=== PATIENT | male | born 1960 | race Caucasian/White ===

== ENCOUNTER 2020-08-27 14:14 | Emergency (ER) | payer MEDICARE, MEDICAID, SELFPAY ==
[2020-08-27 14:23] VITALS: BP 167/71; BP 180/80; PULSE 68; PULSE 80; RESP 15; TEMP 37.3; O2SAT 98; O2SAT 99; BMI 27.3
[2020-08-27 15:47] VITALS: BP 176/75; PULSE 69; RESP 16; TEMP 36.9; O2SAT 99
--- NOTE | 2020-08-27 15:49 | XR_ITS ---
EXAMINATION: XR CHEST CLINICAL INFORMATION: Altered mental status COMPARISON: CT from 02/26/2020. Radiograph 05/09/2014. TECHNIQUE: Frontal view of the chest was obtained. FINDINGS: Cardiac leads overlie the chest. The lungs are well expanded. There is no focal consolidation, edema, or effusion. No pneumothorax. The cardiomediastinal silhouette is within normal limits. No acute osseous abnormality. IMPRESSION: No acute pulmonary finding.
--- NOTE | 2020-08-27 15:49 | ECG_ITS ---
Test Reason : WEAKNESS Blood Pressure : / mmHG Vent. Rate : 070 BPM Atrial Rate : 070 BPM P-R Int : 182 ms QRS Dur : 124 ms QT Int : 416 ms P-R-T Axes : 024 -53 069 degrees QTc Int : 449 ms Normal sinus rhythm Left anterior fascicular block Left ventricular hypertrophy with QRS widening and repolarization abnormality Abnormal ECG When compared with ECG of 02-MAY-2020 18:56, No significant changes seen Referred By: Radha Sprague Electronically Signed By:KITA MCCARTHY MD
--- NOTE | 2020-08-27 15:49 | CT_ITS ---
EXAMINATION: CT HEAD WITHOUT CONTRAST CLINICAL INFORMATION: Altered mental status COMPARISON: 05/02/2020 TECHNIQUE: Contiguous axial imaging was performed from the skull base to vertex without intravenous contrast. This CT examination was performed using dose optimization techniques as appropriate, variously including the following: * Automated exposure control * Adjustment of mA and/or kV according to patient size (this includes techniques or standardized protocols for targeted exams where dose is matched to indication/reason for exam; i.e. extremities or head) Use of iterative reconstruction technique DLP: 824 mGy-cm. FINDINGS: There is no evidence of acute intracranial hemorrhage or territorial infarction. No abnormal mass effect or midline shift is seen. Garcia to white matter differentiation is well preserved. No extra-axial fluid collections are identified. No hydrocephalus. Proportional prominence of the ventricles and sulcal spaces is consistent with mild volume loss. Patchy periventricular and deep white matter hypoattenuation is consistent with mild small vessel ischemic changes. The osseous structures and soft tissues are normal. The mastoid air cells and visualized portions of the paranasal sinuses are well aerated. IMPRESSION: No acute intracranial pathology. Mild volume loss with small vessel ischemic change.
[2020-08-27 16:19] VITALS: BP 170/74; PULSE 74; RESP 18; TEMP 36.8; O2SAT 99
[2020-08-27 16:47] LABS: MANUAL DIFF FLAG NO
[2020-08-27 16:49] LABS: Basophils Percent Auto 0.5 % (0-2); Eosinophils Absolute Auto 0.1 X10*3/uL (0.0-0.4); Hematocrit 27.6 % (42-52); Hemoglobin 9.7 g/dl (14.0-18.0); Imm Gran Abs Auto 0.01 X10*3/uL (0.00-0.03); Imm Gran Pct Auto 0.2 % (0.0-0.4); Lymphocytes Absolute Auto 1.1 X10*3/uL (1.2-4.9); Lymphocytes Percent Auto 26.2 % (20-40); Mean Corpuscular HGB Conc 35.1 g/dl (31.0-36.0); Mean Corpuscular Hemoglobin 32.8 pg (27.0-33.0); Mean Corpuscular Volume 93.2 fL (80-98); Mean Platelet Volume 11.2 fL (9.4-12.4); Monocytes Absolute Auto 0.4 X10*3/uL (0.1-1.2); Monocytes Percent Auto 10.1 % (2-11); Neutrophils Absolute Auto 2.6 X10*3/uL (2.0-8.3); Red Blood Count 2.96 X10*6/uL (4.60-5.80); Red Cell Distribution Width 14.6 % (11.0-16.0); White Blood Count 4.4 X10*3/uL (4.8-10.8)
--- NOTE | 2020-08-27 16:57 | ED.AMS ---
HPI - Altered Mental Status General Chief Complaint: Weakness Stated Complaint: INCR LETHARGY PER SNF,PT C/O PAIN ALL OVER Time Seen by Provider: 08/27/20 15:33 Source: EMS Mode of arrival: EMS History of Present Illness HPI narrative: 59-year-old male with a past medical history of diabetes, Parkinson's , dementia, substance abuse, schizophrenia, essential tremor, ataxia, mild cognitive impairment, pancytopenia presenting to ED from SNF [facility] for increased lethargy /AMS x today. Patient reports cough, headache, and abdominal pain. per SNF at baseline patient is confused, however cares for himself, ambulates, and today noted to be more confused, unable to ambulate, not feeding himself, big change from baseline. Difficult to obtain clear history from patient due to lethargy /dementia. MD complaint: altered mental status Related Data Allergies Allergy/AdvReac Type Severity Reaction Status Date / Time POLLEN/RAGWEED Allergy Unknown UNKNOWN Uncoded 07/30/20 18:43 Review of Systems Review of Systems: ROS unobtainable from patient due to AMS /dementia Yes all other systems are reviewed and are negative Neurologic: Reports confusion Psychiatric: Psychiatric: Reports confusion [facility] Past Medical History Attestation statement: The following information was validated with the patient. Medical History (Updated 08/27/20 @ 17:12 by DANIEL Vernon) Ataxia Dementia Diabetes Parkinson disease Schizophrenia Social History Social History Alcohol intake: former Smoking Status: Current every day smoker Use of substances other than those prescribed or required for medical reasons: Unknown Advance Directives: No Advance Directives Information Provided: Yes Physical Exam Vital Signs: Vital Signs: Vital Signs Temp Pulse Resp BP Pulse Ox 08/27/20 16:19 98.3 F 74 18 170/74 H 99 08/27/20 15:47 98.5 F 69 16 176/75 H 99 08/27/20 14:23 99.1 F 68 15 167/71 H 98 Body Mass Index 27.3 Const: General: confusion and lethargic Orientation/consciousness: oriented to person, oriented to place, oriented to time, confusion and lethargic HENMT: Head: Yes normal to inspection Ears: hearing grossly normal bilaterally General nose exam: Normal external nose present Face and sinus: Yes normal facial exam Throat: Yes uvula midline Eyes: General: appearance normal, both eyes and all related structures Pupils: Equal, round and reactive pupils present EOM: EOMs intact bilaterally Neck: Neck: Yes normal visual inspection and Yes no meningeal signs Resp: Effort & Inspection: normal respiratory effort Auscultation: clear to auscultation bilaterally Cardio: Rate: regular rate Heart sounds: S1 normal heart sound present and S2 normal heart sound present GI: Inspection: Yes normal to inspection Palpation (GI): Soft to palpation, nontender, no guarding and not rigid Skin: Rashes: no rashes Wounds: no wounds Neuro: Other: Lethargic. No focal deficits however intermittently follows commands General: oriented to person, oriented to place, oriented to time, moves all extremities, no meningeal signs, no focal motor deficits, CN's II-XI intact bilaterally, confusion and Unable to assess gait Cranial nerves: Yes Equal, round and reactive pupils present Gait exam (Neuro): Unable to assess gait Extrem: General: Yes normal to inspection Course Course Course Narrative: - CXR unremarkable, head CT without acute findings -[id number]-- ED care transferred to DANIEL Lopez pending labs, dispo per results MDM - Altered Mental Status MDM Narrative Medical decision making narrative: 59-year-old male with a past medical history of diabetes, Parkinson's , dementia, substance abuse, schizophrenia, essential tremor, ataxia, mild cognitive impairment, pancytopenia presenting to ED from [facility] for increased lethargy /AMS x today. On exam VSS, NAD, no focal neuro deficits, patient appreciably lethargic, confused at baseline. Concern for infectious/metabolic etiology vs CVA/TIA. Low concern for COVID-19 plan: EKG, labs, UA, CXR, head CT, reassess Differential Diagnosis Differential diagnosis: Likely altered mental status, dementia, encephalopathy, hypoglycemia, hyponatremia, renal failure and subarachnoid hemorrhage Medical Records Attestation: I reviewed the patient's medical records. Lab Data Result diagrams: 08/27/20 16:40 08/27/20 16:40 Labs: Lab Results 08/27/20 Range/Units 16:40 Hold Blue Top SEE NOTE Discharge Plan Discharge Clinical Impression: AMS (altered mental status)
[2020-08-27 17:15] LABS: Alanine Aminotransferase 8 U/L (0-40); Albumin Level 3.2 g/dL (3.5-5.0); Alkaline Phosphatase 63 U/L (39-117); Anion Gap 11 (12-20); Aspartate Amino Transferase 50 U/L (5-37); B Type Natriuretic Peptide 92 pg/mL (<100); Bilirubin Direct 0.8 mg/dL (0.0-0.5); Bilirubin Total 1.5 mg/dL (0.0-1.0); Blood Urea Nitrogen 20 mg/dL (9-16); Calcium 8.2 mg/dL (8.4-10.2); Carbon Dioxide 28 mmol/L (22-29); Chloride 103 mmol/L (96-108); Estimated Glomerular Filt Rate > 60; Glucose Random 111 mg/dL (60-115); Lipase < 4 U/L (8-78); Platelet Count 56 X10*3/uL (160-400); Potassium 3.9 mmol/l (3.3-5.1); Sodium 138 mmol/L (135-145); Total Protein 6.2 g/dL (6.5-8.0); Troponin-I High Sensitivity 14.7 ng/L (<3.5-35.0)
[2020-08-27 18:20] LABS: OBS Int Ctl Valid YES; OBS1 NEG (NEG)
[2020-08-27 18:53] LABS: Glucose Urine UA 100 MG/DL (NEG); Leukocyte Esterase Urine NEG (NEG); Nitrite Urine NEG (NEG); PH 6.5 (5.0-8.0); Specific Gravity - Urine 1.025 (1.005-1.025); Urine Blood TRACE (NEG); Urine Ketones NEG (NEG); Urine Protein 1+ MG/DL (NEG-TRACE)
[2020-08-27 18:54] LABS: Appearance Urine CLEAR; Color Urine YELLOW
[2020-08-27 18:55] VITALS: BP 116/75; PULSE 76; RESP 18; TEMP 37.4; O2SAT 96
--- NOTE | 2020-08-27 18:55 | PC.NURSE ---
pt report taken from chaparrita rn, pt resting in stretcher. urine sample sent at this time. pt in [facility], vitals wnl. pending ua results.
[2020-08-27 19:00] LABS: Bacteria Urine 1+ /LPF; WBC Urine 0 /HPF (0-4)
--- NOTE | 2020-08-27 19:16 | PC.NURSE ---
pt up and ambulated without assistance. steady on feet, states he wants to leave. repeat lab drawn done. plan for d.c
[2020-08-27 20:08] LABS: Troponin-I High Sensitivity 16.7 ng/L (<3.5-35.0)
--- NOTE | 2020-08-27 20:10 | XR_ITS ---
EXAMINATION: XR KNEE, LEFT CLINICAL INFORMATION: Left knee x-ray COMPARISON: None TECHNIQUE: Two views of the left knee. FINDINGS: No fracture or dislocation. No joint effusion. There is enthesopathy of the distal quadriceps tendon attachment. Mild medial compartment joint space narrowing. IMPRESSION: No acute osseous abnormality of the left knee.
== END 2020-08-27 21:15 | disposition home or self-care (01) ==
PROVIDERS: Physician Assistant; Emergency Provider Emergency Medicine; PCP Hospitalist
DX: R41.82 Altered mental status, unspecified (principal); E11.9 Type 2 diabetes mellitus without complications; G20 Parkinson's disease; F02.80 Dementia in other diseases classified elsewhere, unspecified severity, without behavioral disturbance, psychotic disturbance, mood disturbance, and anxiety; F17.200 Nicotine dependence, unspecified, uncomplicated
CPT/HCPCS: 36415; 70450; 71045; 73560; 80048; 80076; 81001; 82272; 83690; 83735; 83880; 84145; 84484; 85025; 93005; 96360; 99284

== ENCOUNTER 2020-08-30 09:10 | Emergency (ER) | payer MEDICARE, MEDICAID, SELFPAY ==
[2020-08-30 09:17] VITALS: BP 148/60; PULSE 73; RESP 18; O2SAT 96; BMI 30.3
--- NOTE | 2020-08-30 09:26 | US_ITS ---
EXAMINATION: US VENOUS ULTRASOUND WITH DOPPLER LOWER EXTREMITY, BILATERAL CLINICAL INFORMATION: Bilateral thigh erythema COMPARISON: None TECHNIQUE: Ultrasound of the deep veins is performed from the hip to the calf with compression sonography and color and pulse Doppler assessment. Spectral analysis with color-flow imaging is performed. FINDINGS: RIGHT: There is normal venous compression and respiratory variation and augmented flow. The visualized common femoral vein, superficial femoral vein, profunda femoral vein, popliteal vein, and the trifurcation region shows no evidence of deep venous thrombosis. There is no significant popliteal fossa cyst. No popliteal artery aneurysm. LEFT: There is normal venous compression and respiratory variation and augmented flow. The visualized common femoral vein, superficial femoral vein, profunda femoral vein, popliteal vein, and the trifurcation region shows no evidence of deep venous thrombosis. There is no significant popliteal fossa cyst. No popliteal artery aneurysm. IMPRESSION: No acute DVT demonstrated in the bilateral lower extremity.
--- NOTE | 2020-08-30 09:26 | XR_ITS ---
EXAMINATION: XR FEMUR, LEFT CLINICAL INFORMATION: Left thigh redness. Question osteomyelitis. COMPARISON: None TECHNIQUE: AP and lateral views of the left femur were obtained. FINDINGS: There is no evidence of acute fracture or dislocation of the left femur. No destructive bony lesions identified. No periosteal new bone formation or erosive changes. There are changes of enthesopathy seen about the pelvis and lesser trochanter. Left hip joint spaces maintained. No left knee effusion appreciated. Vascular calcifications are noted. IMPRESSION: No significant bony abnormality of the left femur appreciated.
[2020-08-30 09:29] VITALS: TEMP 38.1
[2020-08-30] MEDS: 0.9 % Sodium Chloride 1,000 ML 999 ML IVCONT (09:35)
[2020-08-30 09:44] LABS: MANUAL DIFF FLAG NO
[2020-08-30 09:48] LABS: Basophils Percent Auto 0.4 % (0-2); Eosinophils Absolute Auto 0.1 X10*3/uL (0.0-0.4); Eosinophils Percent Auto 1.4 % (0-4); Hemoglobin 9.5 g/dl (14.0-18.0); Imm Gran Abs Auto 0.03 X10*3/uL (0.00-0.03); Imm Gran Pct Auto 0.5 % (0.0-0.4); Lymphocytes Absolute Auto 1.1 X10*3/uL (1.2-4.9); Lymphocytes Percent Auto 18.8 % (20-40); Mean Corpuscular HGB Conc 35.2 g/dl (31.0-36.0); Mean Corpuscular Hemoglobin 32.6 pg (27.0-33.0); Mean Corpuscular Volume 92.8 fL (80-98); Mean Platelet Volume 11.3 fL (9.4-12.4); Monocytes Absolute Auto 0.5 X10*3/uL (0.1-1.2); Monocytes Percent Auto 9.3 % (2-11); Neutrophils Percent Auto 69.6 % (45-73); Red Blood Count 2.91 X10*6/uL (4.60-5.80); Red Cell Distribution Width 13.8 % (11.0-16.0); White Blood Count 5.7 X10*3/uL (4.8-10.8)
--- NOTE | 2020-08-30 09:48 | PC.NURSE ---
pt is alert, nsr on budget director in the 70s. resp even and unlabored. sat in the high 90s. bp wnl. skin warm to touch with brusing all over body. small dark purple bruises on legs and arms. large bruise/hematoma noted to left hip with cellulitis around front and inner thigh. circular bruise noted to left flank. linen removed from snf. pt repositioned and bilateral 20g iv placed to l ac and r forearm. all labs obtained and urine sample sent. pt resting comfortably in bed and no obvious distress at this time.
[2020-08-30 09:50] LABS: Platelet Count 62 X10*3/uL (160-400)
[2020-08-30 09:53] LABS: Glucose Urine UA NEG (NEG); Leukocyte Esterase Urine NEG (NEG); Nitrite Urine NEG (NEG); PH 6.5 (5.0-8.0); Specific Gravity - Urine 1.025 (1.005-1.025); Urine Blood 2+ (NEG); Urine Ketones NEG (NEG); Urine Protein 2+ MG/DL (NEG-TRACE)
[2020-08-30 09:53] LABS: INTERNATIONAL NORM RATIO 1.3 (0.9-1.1)
[2020-08-30 09:56] LABS: Partial Thromboplastin Time 38.5 SEC (24.1-38.0)
[2020-08-30 10:00] LABS: Lactic Acid 1.8 mmol/L (0.5-2.0)
[2020-08-30 10:04] LABS: Prothrombin Time 15.8 SEC (10.8-13.0)
[2020-08-30 10:07] LABS: Appearance Urine HAZY; Color Urine AMBER
[2020-08-30 10:08] LABS: Granular Casts Urine 0-2 /LPF; Mucus Urine TRACE /LPF; Squamous Epithelial Cell Urine 1+ /LPF; WBC Urine 0-2 /HPF (0-4)
[2020-08-30 10:10] VITALS: PULSE 70; RESP 14; O2SAT 98
[2020-08-30 10:22] LABS: Alanine Aminotransferase 7 U/L (0-40); Albumin Level 2.9 g/dL (3.5-5.0); Alkaline Phosphatase 57 U/L (39-117); Aspartate Amino Transferase 44 U/L (5-37); Blood Urea Nitrogen 25 mg/dL (9-16); Creatinine Clr Calc Pharmacy 108.6; Estimated Glomerular Filt Rate > 60; Glucose Random 111 mg/dL (60-115); Total Protein 5.6 g/dL (6.5-8.0)
[2020-08-30 10:25] VITALS: BP 163/63; PULSE 70; RESP 16; O2SAT 98
--- NOTE | 2020-08-30 10:25 | ED_ITS ---
HPI - General Adult General Chief complaint: Fever Stated complaint: LOW GRADE FEVERS Time Seen by Provider: 08/30/20 09:26 History of Present Illness HPI narrative: patient presents to ED for low grade fever as per [facility]. Upon evaluation it is realized patient has left thigh redness warmth, and pain this morning. Patient himself complains of left thigh pain. Patient does not have any URI symptoms. MD complaint: Left thigh pain Onset (ago): day(s) (today) Location: lower extremity (left thigh) Related Data Previous Rx's Medication Instructions Recorded cephalexin [Keflex] 500 mg PO QID #28 cap 08/30/20 doxycycline hyclate 100 mg PO BID #20 cap 08/30/20 ibuprofen 400 mg PO Q6H PRN #28 tab 08/30/20 Allergies Allergy/AdvReac Type Severity Reaction Status Date / Time POLLEN/RAGWEED Allergy Unknown UNKNOWN Uncoded 07/30/20 18:43 Review of Systems Review of Systems: Yes all other systems are reviewed and are negative Constitutional: Constitutional: Reports as per HPI and Reports no additional constitutional complaints Eyes: Eyes: Reports as per HPI and Reports no additional eye complaints ENT: Reports system reviewed and no additional complaints, except as documented and Reports as per HPI Cardiovascular: Cardiovascular: Reports as per HPI and Reports no additional cardiovascular complaints Respiratory: Respiratory: Reports as per HPI and Reports no additional respiratory complaints Gastrointestinal: Gastrointestinal: Reports as per HPI and Reports no additional gastrointestinal complaints Musculoskeletal: Comments: Positive for left thigh redness and warmth Neurologic: Comments: patient is at baseline mentally Psychiatric: Psychiatric: Reports no additional psychiatric complaints and Reports as per HPI [facility] Past Medical History Medical History (Updated 08/30/20 @ 10:58 by DANIEL Manzo) Ataxia Dementia Diabetes Parkinson disease Schizophrenia Social History Social History Alcohol intake: never Smoking Status: Current every day smoker Smoked in Last 30 Days: No Use of substances other than those prescribed or required for medical reasons: No Advance Directives: No Advance Directives Information Provided: No Physical Exam Vital Signs: Vital Signs: Vital Signs Temp Pulse Resp BP Pulse Ox 08/30/20 10:25 70 16 163/63 H 98 08/30/20 10:10 70 14 98 08/30/20 09:29 100.5 F H 08/30/20 09:17 73 18 148/60 H 96 Body Mass Index 30.3 Const: General: cooperative, healthy appearing, comfortable and no acute distress HENMT: Head: Yes normal to inspection Eyes: General: appearance normal, both eyes and all related structures Neck: Neck: Yes normal visual inspection, Yes full ROM, Yes no lymphadenopathy, Yes no meningeal signs, No positive Brudzinski's sign and No positive Kernig's sign Chest: Chest palpation & inspection: normal inspection of the chest and normal palpation of entire chest wall Resp: Effort & Inspection: normal respiratory effort and able to speak in complete sentences Cardio: Jugular venous distension: no JVD Heart sounds: S1 normal heart sound present and S2 normal heart sound present GI: Inspection: Yes normal to inspection, No abdominal wall ecchymosis, No A bdominal wall edema, No distended, No visible herniation and No visible pulsation Palpation (GI): Soft to palpation, not firm, nontender, no guarding and not rigid Percussion: Yes normal to percussion : General: No CVA tenderness and Yes no CVA tenderness Back/Spine/Pelvis: Back: no CVA tenderness, No CVA tenderness and No back tenderness Skin: General skin exam: erythema ( left side) Neuro: Other: patient is at baseline mentally. Patient has baseline dementia. General: no meningeal signs and CN's II-XI intact bilaterally Cranial nerves: Yes CN's II-XII intact bilaterally Extrem: Left lower extremity: hip/thigh ( Left thigh redness and warmth. Positive for tenderness.) Psych: Appearance: grossly normal, well kempt and not disheveled Course Course Course Narrative: History physical exam indicates cellulitis. Labs will be ordered. X-ray also ordered to rule out osteomyelitis. Will send patient for ultrasound of left lower extremity to rule out DVT Reevaluation(s) Reevaluation #1: History physical exam indicates cellulitis. X-ray negative for osteomyelitis. Ultrasound negative for blood clot. Patient does not have elevated white blood cell count patient slightly febrile but non tachy. Lactic negative. Patient will be discharged with Keflex and doxycycline. Patient has mild bruising left lateral buttock area. This is due to fall he had last . Time: 22:56 Medical Decision Making [facility] Narrative Medical decision making narrative: Diagnosis is cellulitis. Patient prescribed with Keflex and doxycycline. Lab Data Result diagrams: 08/30/20 09:37 08/30/20 09:37 Labs: Lab Results 08/30/20 08/30/20 08/30/20 Range/Units 09:37 09:37 09:37 WBC 5.7 (4.8-10.8) X10*3/uL RBC 2.91 L (4.60-5.80) X10*6/uL Hgb 9.5 L (14.0-18.0) g/dl Hct 27.0 L (42-52) % MCV 92.8 (80-98) fL MCH 32.6 (27.0-33.0) pg MCHC 35.2 (31.0-36.0) g/dl RDW 13.8 (11.0-16.0) % Plt Count 62 L (160-400) X10*3/uL MPV 11.3 (9.4-12.4) fL Immature Gran % (Auto) 0.5 H (0.0-0.4) % Neut % (Auto) 69.6 (45-73) % Lymph % (Auto) 18.8 L (20-40) % Hayes % (Auto) 9.3 (2-11) % Eos % (Auto) 1.4 (0-4) % Baso % (Auto) 0.4 (0-2) % Lymph # (Auto) 1.1 L (1.2-4.9) X10*3/uL Hayes # (Auto) 0.5 (0.1-1.2) X10*3/uL Eos # (Auto) 0.1 (0.0-0.4) X10*3/uL Baso # (Auto) 0.0 (0.0-0.2) X10*3/uL Abs Immat Gran (auto) 0.03 (0.00-0.03) X10*3/uL Absolute Neuts (auto) 4.0 (2.0-8.3) X10*3/uL Absolute Nucleated RBC 0.000 (0.0-0.012) X10*3/uL Nucleated RBC % (auto) 0.0 (0.0-0.2) /100WBC PT 15.8 H (10.8-13.0) SEC INR 1.3 H (0.9-1.1) APTT 38.5 H (24.1-38.0) SEC Sodium 139 (135-145) mmol/L Potassium 3.9 (3.3-5.1) mmol/l Chloride 105 (96-108) mmol/L Carbon Dioxide 27 (22-29) mmol/L Anion Gap 11 L (12-20) BUN 25 H (9-16) mg/dL Creatinine 0.83 (0.5-1.4) mg/dL Estim Creat Clear Calc 108.6 Estimated GFR > 60 Random Glucose 111 (60-115) mg/dL Lactic Acid (0.5-2.0) mmol/L Calcium 8.0 L (8.4-10.2) mg/dL Total Bilirubin 2.0 H (0.0-1.0) mg/dL AST 44 H (5-37) U/L ALT 7 (0-40) U/L Alkaline Phosphatase 57 (39-117) U/L Total Protein 5.6 L (6.5-8.0) g/dL Albumin 2.9 L (3.5-5.0) g/dL Urine Color Urine Appearance Urine pH (5.0-8.0) Ur Specific Chisholm (1.005-1.025) Urine Protein (NEG-TRACE) MG/DL Urine Glucose (UA) (NEG) MG/DL Urine Ketones (NEG) MG/DL Urine Blood (NEG) Urine Nitrite (NEG) Ur Leukocyte Esterase (NEG) Urine RBC (0) /HPF Urine WBC (0-4) /HPF Ur Squamous Epith Cells /LPF Urine Bacteria /LPF Granular Casts /LPF Urine Mucus /LPF 08/30/20 08/30/20 Range/Units 09:37 09:43 WBC (4.8-10.8) X10*3/uL RBC (4.60-5.80) X10*6/uL Hgb (14.0-18.0) g/dl Hct (42-52) % MCV (80-98) fL MCH (27.0-33.0) pg MCHC (31.0-36.0) g/dl RDW (11.0-16.0) % Plt Count (160-400) X10*3/uL MPV (9.4-12.4) fL Immature Gran % (Auto) (0.0-0.4) % Neut % (Auto) (45-73) % Lymph % (Auto) (20-40) % Hayes % (Auto) (2-11) % Eos % (Auto) (0-4) % Baso % (Auto) (0-2) % Lymph # (Auto) (1.2-4.9) X10*3/uL Hayes # (Auto) (0.1-1.2) X10*3/uL Eos # (Auto) (0.0-0.4) X10*3/uL Baso # (Auto) (0.0-0.2) X10*3/uL Abs Immat Gran (auto) (0.00-0.03) X10*3/uL Absolute Neuts (auto) (2.0-8.3) X10*3/uL Absolute Nucleated RBC (0.0-0.012) X10*3/uL Nucleated RBC % (auto) (0.0-0.2) /100WBC PT (10.8-13.0) SEC INR (0.9-1.1) APTT (24.1-38.0) SEC Sodium (135-145) mmol/L Potassium (3.3-5.1) mmol/l Chloride (96-108) mmol/L Carbon Dioxide (22-29) mmol/L Anion Gap (12-20) BUN (9-16) mg/dL Creatinine (0.5-1.4) mg/dL Estim Creat Clear Calc Estimated GFR Random Glucose (60-115) mg/dL Lactic Acid 1.8 (0.5-2.0) mmol/L Calcium (8.4-10.2) mg/dL Total Bilirubin (0.0-1.0) mg/dL AST (5-37) U/L ALT (0-40) U/L Alkaline Phosphatase (39-117) U/L Total Protein (6.5-8.0) g/dL Albumin (3.5-5.0) g/dL Urine Color RACHEAL Urine Appearance HAZY Urine pH 6.5 (5.0-8.0) Ur Specific [place]m 1.025 (1.005-1.025) Urine Protein 2+ H (NEG-TRACE) MG/DL Urine Glucose (UA) NEG (NEG) MG/DL Urine Ketones NEG (NEG) MG/DL Urine Blood 2+ H (NEG) Urine Nitrite NEG (NEG) Ur Leukocyte Esterase NEG (NEG) Urine RBC 15-29 H (0) /HPF Urine WBC 0-2 (0-4) /HPF Ur Squamous Epith Cells 1+ /LPF Urine Bacteria NONE /LPF Granular Casts 0-2 /LPF Urine Mucus TRACE /LPF Discharge Plan Discharge Clinical Impression: Cellulitis of left thigh Patient Disposition: Home, Self-Care Instructions: Cellulitis (ED) Additional Instructions: Return to the ED immediately for altered mental status, worsening of redness on left thigh beyond marker, Development of red streaks, pus discharge, foul odor, intractable fever, weakness, nausea, vomiting, chest pain, shortness of breath, or any other concerning symptoms. Prescriptions: New cephalexin [Keflex] 500 mg capsule 500 mg PO QID Qty: 28 RF: 0 doxycycline hyclate 100 mg capsule 100 mg PO BID Qty: 20 RF: 0 ibuprofen 400 mg tablet 400 mg PO Q6H PRN (Reason: fever or pain) Qty: 28 RF: 0 Referrals: Daniel Moon DO [Physician] - 2 days ( Left thigh cellulitis. Ultrasound negative for blood clots. X-ray negative for osteomyelitis. Negative for elevated white blood cell count. Patient is safe for discharge. Patient discharged with Keflex and doxycycline.) Interventions: ED Discharge Assessment Last Done: 08/30/20 11:26 Discharge Date/Time: 08/30/20 11:28 Print Language: Ukrainian
[2020-08-30 10:43] LABS: Anion Gap 11 (12-20); Carbon Dioxide 27 mmol/L (22-29); Chloride 105 mmol/L (96-108); Potassium 3.9 mmol/l (3.3-5.1); Sodium 139 mmol/L (135-145)
[2020-08-30] MEDS: Acetaminophen 325 MG TABLET 650 MG PO (11:09)
== END 2020-08-30 11:28 | disposition home or self-care (01) ==
PROVIDERS: Physician Assistant; Emergency Provider Emergency Medicine
DX: L03.116 Cellulitis of left lower limb (principal); M79.652 Pain in left thigh; R50.9 Fever, unspecified; E11.9 Type 2 diabetes mellitus without complications; G20 Parkinson's disease; F02.80 Dementia in other diseases classified elsewhere, unspecified severity, without behavioral disturbance, psychotic disturbance, mood disturbance, and anxiety; F17.200 Nicotine dependence, unspecified, uncomplicated
CPT/HCPCS: 36415; 73552; 80053; 81001; 81003; 83605; 85025; 85610; 85730; 87040; 93970; 96360; 99284

== ENCOUNTER 2020-10-03 08:58 | Emergency (ER) | payer MEDICARE, MEDICAID, SELFPAY ==
[2020-10-03 09:10] VITALS: BP 146/92; BP 180/70; PULSE 70; PULSE 73; RESP 15; TEMP 36.6; O2SAT 100; O2SAT 99; BMI 24.4
--- NOTE | 2020-10-03 09:43 | CT_ITS ---
EXAMINATION: CT CERVICAL SPINE WITHOUT CONTRAST CLINICAL INFORMATION: Fall. Pain. COMPARISON: Previous CT of the cervical spine April 2020 TECHNIQUE: Axial images through the cervical spine without contrast. Sagittal and coronal reconstructions on the technologist workstation were performed. This CT examination was performed using dose optimization techniques as appropriate, variously including the following: *Automated exposure control *Adjustment of mA and/or kV according to patient size (this includes techniques or standardized protocols for targeted exams where dose is matched to indication/reason for exam; i.e. extremities or head) *Use of iterative reconstruction technique DLP: 591 mGy-cm FINDINGS: Bone alignment is normal. No fracture or dislocation is seen. There is degenerative spondylosis and degenerative disc disease from C4-C5 to C6-C7. Prevertebral soft tissues are normal. There is bilateral carotid calcification. Lung apices are clear. There is increased soft tissue seen in the visualized right side of the trachea on the most inferior images. This is new from previous cervical spine CT February and April 2020 and probably related to patient secretions. There is a prominent soft tissue seen in both external auditory canals questionable for cerumen similar to previous exams. CT/CT cervical spine wo con IMPRESSION: Degenerative changes. No fracture or dislocation seen.
--- NOTE | 2020-10-03 09:44 | ED_ITS ---
HPI - Fall General Chief Complaint: Fall Stated Complaint: SLIP & FALL W/ HEAD LAC @ SNF,+[facility] Time Seen by Provider: 10/03/20 09:36 Source: EMS Mode of arrival: EMS Limitations: no limitations History of Present Illness HPI Narrative: 60-year-old male with a past medical history of schizophrenia, dementia, type 2 diabetes here with mechanical slip and fall. The patient tells me there was water on the ground and he slipped falling backwards hitting his head. He denies loss of consciousness. He has a laceration to the back of his head. He tells me he has a mild headache. No nausea, vomiting, vision changes. Patient denies any chest, abdominal, neck or back pain. On aspirin only MD complaint: fall Onset (ago): minute(s) Fall from: standing Fall witnessed: yes, by living facility staff [facility] Loss of consciousness: none Prolonged down time: no Symptoms prior to fall: none Context: tripped/slipped Location of injury: head Severity: mild Associated symptoms (after fall): headache Related Data Previous Rx's Medication Instructions Recorded cephalexin [Keflex] 500 mg PO QID #28 cap 08/30/20 doxycycline hyclate 100 mg PO BID #20 cap 08/30/20 ibuprofen 400 mg PO Q6H PRN #28 tab 08/30/20 Allergies Allergy/AdvReac Type Severity Reaction Status Date / Time POLLEN/RAGWEED Allergy Unknown UNKNOWN Uncoded 07/30/20 18:43 Review of Systems Review of Systems: Yes all other systems are reviewed and are negative Constitutional: Constitutional: Reports no additional constitutional complaints, Denies body ache(s), Denies chills, Denies fever(s), Reports headache(s) and Denies weakness Eyes: Eyes: Reports no additional eye complaints and Denies change in vision ENT: Reports system reviewed and no additional complaints, except as documented, Denies dizziness, Reports headache(s), Denies nasal congestion, Denies nasal discharge and Denies neck pain Cardiovascular: Cardiovascular: Reports no additional cardiovascular com plaints, Denies chest pain, Denies leg edema and Denies dyspnea Respiratory: Respiratory: Reports no additional respiratory complaints, Denies cough and Denies dyspnea Gastrointestinal: Gastrointestinal: Reports no additional gastrointestinal complaints, Denies abdominal pain, Denies diarrhea, Denies nausea and Denies vomiting Genitourinary: Genitourinary: Denies urinary incontinence Musculoskeletal: Musculoskeletal: Reports no additional musculoskeletal complaints, Denies back pain, Denies arthralgias, Denies joint swelling, Denies neck pain, Denies numbness and Denies tingling Integumentary/Breasts: Skin/Breast: Reports system reviewed and no additional complaints, except as docu and Denies rash Neurologic: Reports system reviewed and no additional complaints, except as documented, Denies Abnormal speech present, Denies dizziness, Reports headache(s), Denies numbness, Denies tingling and Denies weakness [facility] Past Medical History Medical History Ataxia Dementia Diabetes Parkinson disease Schizophrenia Social History Social History Alcohol intake: never Smoking Status: Current every day smoker Advance Directives: No Advance Directives Information Provided: Yes Physical Exam Vital Signs: Vital Signs: Last Vital Signs Temp 98.1 F 10/03/20 12:19 Pulse 77 10/03/20 12:19 Resp 18 10/03/20 12:19 BP 191/76 H 10/03/20 12:19 Pulse Ox 100 10/03/20 12:19 Body Mass Index 24.4 Const: General: cooperative, healthy appearing, comfortable and no acute distress Orientation/consciousness: patient oriented x3 Limitations: no limitations HENMT: Other: To the back of the head there is approximately 3 cm laceration. No surrounding bogginess or crepitus. Bleeding is controlled Head: Yes normal to inspection Ears: hearing grossly normal bilaterally General nose exam: Normal external nose present Face and sinus: Yes normal facial exam Mouth: Normal oral and palatal mucosa present Throat: Yes posterior oropharynx normal Eyes: General: appearance normal, both eyes and all related structures Pupils: Equal, round and reactive pupils present Neck: Other: no midline tenderness, step-offs or deformities cervical collar in place Neck: Yes normal visual inspection Chest: Chest palpation & inspection: normal inspection of the chest Resp: Effort & Inspection: normal respiratory effort Auscultation: clear to auscultation bilaterally Cardio: Rate: regular rate Rhythm: regular rhythm Peripheral pulses: Peripheral pulses 2+ throughout GI: Inspection: Yes normal to inspection Palpation (GI): Soft to palpation and nontender Auscultation: normal bowel sounds Back/Spine/Pelvis: Thoracic/Lumbar Spine: thoracic and lumbar spine normal to inspection Skin: General skin exam: no rashes or lesions noted Neuro: General: patient oriented x3, no focal motor deficits and normal sensation to monofilament Cranial nerves: Yes Equal, round and reactive pupils present Cognition (Neuro): normal cognition Speech: No Abnormal speech present Gait exam (Neuro): Normal gait present Motor exam (neuro): 5/5 motor strength present throughout Extrem: General: Yes normal to inspection Course Course Course Narrative: patient here with laceration to the posterior head status post mechanical fall. No loss of consciousness. No neurological deficits. Patient is at baseline. No other complaints or injury. Will need wound care. Will check imaging. 1230- Imaging unremarkable. See wound repair note. Patient to be transferred back to [facility]. Procedures Laceration Laceration 1: Site: scalp Description: linear Depth: simple, single layer Pre-repair: wound explored and irrigated extensively Size (cm): other (gladys) Number of sutures: 4 MDM - Fall Medical Records Attestation: I reviewed the patient's medical records. Lab Data Attestation: I reviewed the patient's lab results. Imaging Data CT scan - head: Attestation: I personally reviewed and interpreted this imaging study as follows: Radiologist's impression: EXAMINATION: CT HEAD WITHOUT CONTRAST CLINICAL INFORMATION: Fall. Pain. COMPARISON: Previous head CT most recent 08/27/2020 TECHNIQUE: Contiguous axial imaging was performed from the skull base to vertex without intravenous administration of contrast. This CT examination was performed using dose optimization techniques as appropriate, variously including the following: *Automated exposure control *Adjustment of mA and/or kV according to patient size (this includes techniques or standardized protocols for targeted exams where dose is matched to indication/reason for exam; i.e. extremities or head) *Use of iterative reconstruction technique DLP: 591 mGy-cm FINDINGS: There is no extra-axial collection. There is no intra or extra-axial hemorrhage. The ventricles and extra-axial CSF spaces are prominent suggestive of jaw and mild generalized atrophy. There is nonspecific periventricular white matter disease. No mass, mass effect or infarct is seen. No skull fracture is seen. There is are skin gladys over the right parietal bone. There is a soft tissue swelling over the over the high left parietal bone at the vertex. Visualized paranasal sinuses, mastoid air cells and middle ears are clear. CT/CT head/brain wo con IMPRESSION: No acute intracranial findings. Generalized atrophy and nonspecific periventricular white matter disease. ct cervical: Attestation: I personally reviewed and interpreted this imaging study as follows: Radiologist's impression: EXAMINATION: CT HEAD WITHOUT CONTRAST CLINICAL INFORMATION: Fall. Pain. COMPARISON: Previous head CT most recent 08/27/2020 TECHNIQUE: Contiguous axial imaging was performed from the skull base to vertex without intravenous administration of contrast. This CT examination was performed using dose optimization techniques as appropriate, variously including the following: *Automated exposure control *Adjustment of mA and/or kV according to patient size (this includes techniques or standardized protocols for targeted exams where dose is matched to indication/reason for exam; i.e. extremities or head) *Use of iterative reconstruction technique DLP: 591 mGy-cm FINDINGS: There is no extra-axial collection. There is no intra or extra-axial hemorrhage. The ventricles and extra-axial CSF spaces are prominent suggestive of jaw and mild generalized atrophy. There is nonspecific periventricular white matter disease. No mass, mass effect or infarct is seen. No skull fracture is seen. There is are skin gladys over the right parietal bone. There is a soft tissue swelling over the over the high left parietal bone at the vertex. Visualized paranasal sinuses, mastoid air cells and middle ears are clear. CT/CT head/brain wo con IMPRESSION: No acute intracranial findings. Generalized atrophy and nonspecific periventricular white matter disease. Discharge Plan Discharge Clinical Impression: Laceration, Head injury Patient Disposition: [facility] Instructions: Laceration (ED), Head Injury (ED) Additional Instructions: [place] out in 10-14 days Prescriptions: No Action cephalexin [Keflex] 500 mg capsule 500 mg PO QID Qty: 28 RF: 0 doxycycline hyclate 100 mg capsule 100 mg PO BID Qty: 20 RF: 0 ibuprofen 400 mg tablet 400 mg PO Q6H PRN (Reason: fever or pain) Qty: 28 RF: 0
[2020-10-03 10:13] VITALS: BP 193/79; RESP 69; O2SAT 98
[2020-10-03 12:19] VITALS: BP 191/76; PULSE 77; RESP 18; TEMP 36.7; O2SAT 100
== END 2020-10-03 13:37 | disposition skilled nursing facility (03) ==
PROVIDERS: Emergency Provider Emergency Medicine
DX: S01.01XA Laceration without foreign body of scalp, initial encounter (principal); G44.309 Post-traumatic headache, unspecified, not intractable; G20 Parkinson's disease; F02.80 Dementia in other diseases classified elsewhere, unspecified severity, without behavioral disturbance, psychotic disturbance, mood disturbance, and anxiety; W01.0XXA Fall on same level from slipping, tripping and stumbling without subsequent striking against object, initial encounter; Y93.01 Activity, walking, marching and hiking; Y92.099 Unspecified place in other non-institutional residence as the place of occurrence of the external cause; Y99.9 Unspecified external cause status; F17.200 Nicotine dependence, unspecified, uncomplicated; Z71.6 Tobacco abuse counseling; Z79.899 Other long term (current) drug therapy; Z23 Encounter for immunization
CPT/HCPCS: 12001; 70450; 72125; 90471; 90715; 99284

== ENCOUNTER 2020-11-18 11:40 | Inpatient (IN) | payer MEDICARE, MEDICAID, SELFPAY ==
[2020-11-18] VITALS (8 sets, daily range): BP systolic 160–188; BP diastolic 69–99; PULSE 70–92; RESP 14–16; TEMP 36.4–37; O2SAT 97–100; BMI 26.2; BMI 26.5
--- NOTE | 2020-11-18 12:04 | XR_ITS ---
EXAMINATION: XR CHEST CLINICAL INFORMATION: Fever COMPARISON: Previous chest x-ray most recent August 2020 TECHNIQUE: Frontal view of the chest was obtained. FINDINGS: The cardiac silhouette is upper normal in size but stable. There is question of increased central lung/bronchial markings. No evidence of pneumonia is seen. There is no pleural effusion or pneumothorax. Bony structures are unremarkable. XR/XR chest 1V IMPRESSION: Question increased central bronchial markings/bronchial wall thickening. No evidence of pneumonia.
--- NOTE | 2020-11-18 12:04 | ECG_ITS ---
Test Reason : WEAKNESS Blood Pressure : / mmHG Vent. Rate : 070 BPM Atrial Rate : 070 BPM P-R Int : 198 ms QRS Dur : 128 ms QT Int : 428 ms P-R-T Axes : 038 -54 075 degrees QTc Int : 462 ms Normal sinus rhythm Left axis deviation Left ventricular hypertrophy with QRS widening and repolarization abnormality Abnormal ECG When compared with ECG of 27-AUG-2020 16:25, No significant change was found Referred By: Aurea Singer Electronically Signed By:Cristo Valverde
--- NOTE | 2020-11-18 12:05 | CT_ITS ---
EXAMINATION: CT HEAD WITHOUT CONTRAST CLINICAL INFORMATION: Weakness, altered mental status. COMPARISON: CT brain 10/03/2020 TECHNIQUE: Contiguous axial imaging was performed from the skull base to vertex without intravenous administration of contrast. This CT examination was performed using dose optimization techniques as appropriate, variously including the following: *Automated exposure control *Adjustment of mA and/or kV according to patient size (this includes techniques or standardized protocols for targeted exams where dose is matched to indication/reason for exam; i.e. extremities or head) *Use of iterative reconstruction technique DLP: 893 mGy-cm FINDINGS: There is no evidence of acute intracranial hemorrhage or territorial infarction. No abnormal mass effect or midline shift is seen. Garcia to white matter differentiation is well preserved. No extra-axial fluid collections are identified. The ventricles are symmetrical in size and configuration without enlargement. There is no abnormal attenuation within the brain parenchyma. The osseous structures and are normal. There are soft tissue nodules along the right and posterior scalp likely skin folds or sebaceous cyst. These are stable. The mastoid air cells and visualized portions of the paranasal sinuses are well aerated. CT/CT head/brain wo con IMPRESSION: No acute intracranial process seen. There is mild cerebral volume loss. 2 soft tissue nodules along the right and midline scalp, stable.
--- NOTE | 2020-11-18 12:07 | ED_ITS ---
HPI - Altered Mental Status General Chief Complaint: Weakness Stated Complaint: weakness Time Seen by Provider: 11/18/20 12:04 Source: EMS, RN notes reviewed, old records reviewed and other (Staff at SNF) Mode of arrival: EMS Limitations: altered mental status History of Present Illness HPI narrative: 60 y/o male with history of Parkinson's disease, dementia, recurrent falls, pancytopenia, hx orthostatic hypotension, schizophrenia, DM2 with polyneuropathy, dysphagia, active smoker, hx remote ETOH and polysubstance abuse who [facility] with weakness and altered mental status. Spoke with nurse at [facility] who state patient was in his usual state of health yesterday. He had a choking episode but cleared his own airway and was fine afterward. Staff found him this morning with significant generalized weakness; it took 3 people to help him get up out of bed. He was less verbal that usual and said he had pain all over. EMS was called, he was febrile to 100 temporally. His baseline mental status is awake, alert, answers simple questions, walks with assist, assist with most ADL'S. He reportedly tested for COVID 2 days ago and it was negative. MD complaint: altered mental status and weakness Onset (ago): hour(s) (5) Timing confirmed by: caregiver Severity: moderate Consistency of symptoms: constant Context: recent fever Related Data Previous Rx's Medication Instructions Recorded cephalexin [Keflex] 500 mg PO QID #28 cap 08/30/20 doxycycline hyclate 100 mg PO BID #20 cap 08/30/20 ibuprofen 400 mg PO Q6H PRN #28 tab 08/30/20 Allergies Allergy/AdvReac Type Severity Reaction Status Date / Time POLLEN/RAGWEED Allergy Unknown UNKNOWN Uncoded 11/18/20 12:00 Review of Systems Review of Systems: Yes Unobtainable due to mental status PMFSH Past Medical History Attestation statement: The following information was validated with the patient. Medical History Ataxia Dementia Diabetes Drug abuse, cocaine type Essential tremor ETOH abuse Orthostatic hypotension Parkinson disease Schizophrenia Social History Social History Alcohol intake: unknown Smoking Status: Current some day smoker Use of substances other than those prescribed or required for medical reasons: Unable to respond Advance Directives: No Advance Directives Information Provided: No Physical Exam Vital Signs: Vital Signs: Last Vital Signs Temp 98.1 F 11/18/20 15:17 Pulse 75 11/18/20 15:43 Resp 15 11/18/20 15:43 BP 184/85 H 11/18/20 15:43 Pulse Ox 98 11/18/20 15:43 Body Mass Index 26.2 Appearance: Elderly male, laying in bed, no distress Eyes: Pupils equal, round and reactive to light. ENT: Pharynx normal. Neck: Normal inspection. Neck supple. CVS: Normal heart rate and rhythm. Pulses normal. Respiratory: No respiratory distress. Breath sounds normal. Abdomen: Soft and nontender. +BS x4 Skin: Skin warm and dry. Normal skin color. Normal skin turgor. No rashes. Extremities: No lower extremity edema. muscle atrophy noted Neuro: arouses to voice, follows simple commands but diffusely weak in all 4 extremities. Course Course Course Narrative: 60 y/o male from SNF with multiple co-morbidities presenting with weakness and AMS. Concern for possible aspiration pneumonia/pneumonitis given choking episode yesterday. Will panculture, get CT head, CXR. No fever on arrival. Hemodynamically stable. Reevaluation(s) Reevaluation #1: CT head is unremarkable for acute pathology. CXR shows mild central bronchial wall thickening. Pancytopenia on labs as well as mild elevation of bilirubins which are chronic upon review. UA negative for infection. Resp panel negative. Will treat for possible aspiration pneumonitis with possible developing pneumonia with IV zosyn and solumedrol. May require admission due to encephalopathy. Reevaluation #2: Patient much more awake and alert. Able to answer simple questions. Discussed admission with Hospitalist who evaluated the patient - mental status is improved significantly. Recommending CT scan of chest to evaluate for possible pneumonia. Reevaluation #3: CT chest negative for pneumonia. Showing cirrhotic changes of the liver - ammonia checked and found to be 89. Will give dose of lactulose now and discuss with hospitalist. Additional Reevaluation(s): 5pm - hospitalist has accepted admission. MDM - Altered Mental Status Differential Diagnosis Differential diagnosis: Likely altered mental status, delirium, dementia, encephalopathy, hypoglycemia, hyponatremia, renal failure, subarachnoid hemorrhage, sepsis and seizures Medical Records Attestation: I reviewed the patient's medical records. Lab Data Attestation: I reviewed the patient's lab results. Result diagrams: 11/18/20 12:41 11/18/20 12:41 Labs: Lab Results 11/18/20 11/18/20 11/18/20 Range/Units 12:41 12:41 12:41 WBC 4.6 L (4.8-10.8) X10*3/uL RBC 3.04 L (4.60-5.80) X10*6/uL Hgb 9.8 L (14.0-18.0) g/dl Hct 27.7 L (42-52) % MCV 91.1 (80-98) fL MCH 32.2 (27.0-33.0) pg MCHC 35.4 (31.0-36.0) g/dl RDW 14.6 (11.0-16.0) % Plt Count 64 L (160-400) X10*3/uL MPV 10.0 (9.4-12.4) fL Immature Gran % (Auto) 0.2 (0.0-0.4) % Neut % (Auto) 62.1 (45-73) % Lymph % (Auto) 23.3 (20-40) % [place] % (Auto) 7.5 (2-11) % Eos % (Auto) 6.2 H (0-4) % Baso % (Auto) 0.7 (0-2) % Lymph # (Auto) 1.1 L (1.2-4.9) X10*3/uL [place] # (Auto) 0.3 (0.1-1.2) X10*3/uL Eos # (Auto) 0.3 (0.0-0.4) X10*3/uL Baso # (Auto) 0.0 (0.0-0.2) X10*3/uL Abs Immat Gran (auto) 0.01 (0.00-0.03) X10*3/uL Absolute Neuts (auto) 2.8 (2.0-8.3) X10*3/uL Absolute Nucleated RBC 0.000 (0.0-0.012) X10*3/uL Nucleated RBC % (auto) 0.0 (0.0-0.2) /100WBC Hold Blue Top VBG pH (7.32-7.43) VBG pCO2 mmhg VBG pO2 mmhg VBG HCO3 mmol/L VBG O2 Saturation % VBG Base Excess mmol/L Sodium 141 (135-145) mmol/L Potassium 4.1 (3.3-5.1) mmol/l Chloride 109 H (96-108) mmol/L Carbon Dioxide 24 (22-29) mmol/L Anion Gap 12 (12-20) BUN 15 (9-16) mg/dL Creatinine 0.81 (0.5-1.4) mg/dL Estim Creat Clear Calc 106.8 Estimated GFR > 60 Random Glucose 181 H D (60-115) mg/dL Lactic Acid 1.9 (0.5-2.0) mmol/L Calcium 8.7 D (8.4-10.2) mg/dL Magnesium 1.9 (1.6-2.6) mg/dL Total Bilirubin 1.4 H (0.0-1.0) mg/dL Direct Bilirubin 0.6 H (0.0-0.5) mg/dL AST 22 D (5-37) U/L ALT < 6 (0-40) U/L Alkaline Phosphatase 60 (39-117) U/L Ammonia (13-55) umol/L C-Reactive Protein 0.16 (< or = 0.50) mg/dL Total Protein 6.3 L (6.5-8.0) g/dL Albumin 3.3 L (3.5-5.0) g/dL Procalcitonin ng/mL Urine Color Urine Appearance Urine pH (5.0-8.0) Ur Specific [place] (1.005-1.025) Urine Protein (NEG-TRACE) MG/DL Urine Glucose (UA) (NEG) MG/DL Urine Ketones (NEG) MG/DL Urine Blood (NEG) Urine Nitrite (NEG) Ur Leukocyte Esterase (NEG) Urine RBC (0) /HPF Urine WBC (0-4) /HPF Ur Squamous Epith Cells /LPF Urine Bacteria /LPF Coronavirus (PCR) (Negative) Influenza Type A (PCR) (Negative) Influenza Type B (PCR) (Negative) RSV RNA Qual (PCR) (Negative) 11/18/20 11/18/20 11/18/20 Range/Units 12:41 12:41 12:41 WBC (4.8-10.8) X10*3/uL RBC (4.60-5.80) X10*6/uL Hgb (14.0-18.0) g/dl Hct (42-52) % MCV (80-98) fL MCH (27.0-33.0) pg MCHC (31.0-36.0) g/dl RDW (11.0-16.0) % Plt Count (160-400) X10*3/uL MPV (9.4-12.4) fL Immature Gran % (Auto) (0.0-0.4) % Neut % (Auto) (45-73) % Lymph % (Auto) (20-40) % [place] % (Auto) (2-11) % Eos % (Auto) (0-4) % Baso % (Auto) (0-2) % Lymph # (Auto) (1.2-4.9) X10*3/uL [place] # (Auto) (0.1-1.2) X10*3/uL Eos # (Auto) (0.0-0.4) X10*3/uL Baso # (Auto) (0.0-0.2) X10*3/uL Abs Immat Gran (auto) (0.00-0.03) X10*3/uL Absolute Neuts (auto) (2.0-8.3) X10*3/uL Absolute Nucleated RBC (0.0-0.012) X10*3/uL Nucleated RBC % (auto) (0.0-0.2) /100WBC Hold Blue Top SEE NOTE VBG pH (7.32-7.43) VBG pCO2 mmhg VBG pO2 mmhg VBG HCO3 mmol/L VBG O2 Saturation % VBG Base Excess mmol/L Sodium (135-145) mmol/L Potassium (3.3-5.1) mmol/l Chloride (96-108) mmol/L Carbon Dioxide (22-29) mmol/L Anion Gap (12-20) BUN (9-16) mg/dL Creatinine (0.5-1.4) mg/dL Estim Creat Clear Calc Estimated GFR Random Glucose (60-115) mg/dL Lactic Acid (0.5-2.0) mmol/L Calcium (8.4-10.2) mg/dL Magnesium (1.6-2.6) mg/dL Total Bilirubin (0.0-1.0) mg/dL Direct Bilirubin (0.0-0.5) mg/dL AST (5-37) U/L ALT (0-40) U/L Alkaline Phosphatase (39-117) U/L Ammonia (13-55) umol/L C-Reactive Protein (< or = 0.50) mg/dL Total Protein (6.5-8.0) g/dL Albumin (3.5-5.0) g/dL Procalcitonin 0.03 ng/mL Urine Color Urine Appearance Urine pH (5.0-8.0) Ur Specific [place] (1.005-1.025) Urine Protein (NEG-TRACE) MG/DL Urine Glucose (UA) (NEG) MG/DL Urine Ketones (NEG) MG/DL Urine Blood (NEG) Urine Nitrite (NEG) Ur Leukocyte Esterase (NEG) Urine RBC (0) /HPF Urine WBC (0-4) /HPF Ur Squamous Epith Cells /LPF Urine Bacteria /LPF Coronavirus (PCR) NEGATIVE (Negative) Influenza Type A (PCR) NEGATIVE (Negative) Influenza Type B (PCR) NEGATIVE (Negative) RSV RNA Qual (PCR) NEGATIVE (Negative) 11/18/20 11/18/20 11/18/20 Range/Units 12:41 12:52 15:42 WBC (4.8-10.8) X10*3/uL RBC (4.60-5.80) X10*6/uL Hgb (14.0-18.0) g/dl Hct (42-52) % MCV (80-98) fL MCH (27.0-33.0) pg MCHC (31.0-36.0) g/dl RDW (11.0-16.0) % Plt Count (160-400) X10*3/uL MPV (9.4-12.4) fL Immature Gran % (Auto) (0.0-0.4) % Neut % (Auto) (45-73) % Lymph % (Auto) (20-40) % [place] % (Auto) (2-11) % Eos % (Auto) (0-4) % Baso % (Auto) (0-2) % Lymph # (Auto) (1.2-4.9) X10*3/uL [place] # (Auto) (0.1-1.2) X10*3/uL Eos # (Auto) (0.0-0.4) X10*3/uL Baso # (Auto) (0.0-0.2) X10*3/uL Abs Immat Gran (auto) (0.00-0.03) X10*3/uL Absolute Neuts (auto) (2.0-8.3) X10*3/uL Absolute Nucleated RBC (0.0-0.012) X10*3/uL Nucleated RBC % (auto) (0.0-0.2) /100WBC Hold Blue Top VBG pH 7.36 (7.32-7.43) VBG pCO2 46 mmhg VBG pO2 45 mmhg VBG HCO3 25 mmol/L VBG O2 Saturation 78.5 % VBG Base Excess -0.5 mmol/L Sodium (135-145) mmol/L Potassium (3.3-5.1) mmol/l Chloride (96-108) mmol/L Carbon Dioxide (22-29) mmol/L Anion Gap (12-20) BUN (9-16) mg/dL Creatinine (0.5-1.4) mg/dL Estim Creat Clear Calc Estimated GFR Random Glucose (60-115) mg/dL Lactic Acid (0.5-2.0) mmol/L Calcium (8.4-10.2) mg/dL Magnesium (1.6-2.6) mg/dL Total Bilirubin (0.0-1.0) mg/dL Direct Bilirubin (0.0-0.5) mg/dL AST (5-37) U/L ALT (0-40) U/L Alkaline Phosphatase (39-117) U/L Ammonia 89 H (13-55) umol/L C-Reactive Protein (< or = 0.50) mg/dL Total Protein (6.5-8.0) g/dL Albumin (3.5-5.0) g/dL Procalcitonin ng/mL Urine Color YELLOW Urine Appearance CLEAR Urine pH 7.0 (5.0-8.0) Ur Specific [place] 1.015 (1.005-1.025) Urine Protein 1+ H (NEG-TRACE) MG/DL Urine Glucose (UA) NEG (NEG) MG/DL Urine Ketones NEG (NEG) MG/DL Urine Blood TRACE (NEG) Urine Nitrite NEG (NEG) Ur Leukocyte Esterase NEG (NEG) Urine RBC 5-9 H (0) /HPF Urine WBC 1-4 (0-4) /HPF Ur Squamous Epith Cells 2+ /LPF Urine Bacteria NONE /LPF Coronavirus (PCR) (Negative) Influenza Type A (PCR) (Negative) Influenza Type B (PCR) (Negative) RSV RNA Qual (PCR) (Negative) ECG Data ECG #1: Attestation: I personally reviewed and interpreted this ECG as follows: ECG interpretation date: 11/18/20 ECG interpretation time: 13:47 Interpretation: normal sinus rhythm, left axis deviation, LVH, HR 70 bpm. Discharge Plan Discharge Clinical Impression: Acute hepatic encephalopathy Patient Disposition: Admitted As Inpatient
[2020-11-18] MEDS: 0.9 % Sodium Chloride 1,000 ML 999 ML IVCONT (12:46)
[2020-11-18 12:49] LABS: MANUAL DIFF FLAG NO
[2020-11-18 12:51] LABS: Basophils Percent Auto 0.7 % (0-2); Eosinophils Absolute Auto 0.3 X10*3/uL (0.0-0.4); Eosinophils Percent Auto 6.2 % (0-4); Hematocrit 27.7 % (42-52); Hemoglobin 9.8 g/dl (14.0-18.0); Imm Gran Abs Auto 0.01 X10*3/uL (0.00-0.03); Imm Gran Pct Auto 0.2 % (0.0-0.4); Lymphocytes Absolute Auto 1.1 X10*3/uL (1.2-4.9); Lymphocytes Percent Auto 23.3 % (20-40); Mean Corpuscular HGB Conc 35.4 g/dl (31.0-36.0); Mean Corpuscular Hemoglobin 32.2 pg (27.0-33.0); Mean Corpuscular Volume 91.1 fL (80-98); Monocytes Absolute Auto 0.3 X10*3/uL (0.1-1.2); Monocytes Percent Auto 7.5 % (2-11); Neutrophils Absolute Auto 2.8 X10*3/uL (2.0-8.3); Neutrophils Percent Auto 62.1 % (45-73); Platelet Count 64 X10*3/uL (160-400); Red Blood Count 3.04 X10*6/uL (4.60-5.80); Red Cell Distribution Width 14.6 % (11.0-16.0); White Blood Count 4.6 X10*3/uL (4.8-10.8)
[2020-11-18 12:55] LABS: Base Excess VBG -0.5 mmol/L; HCO3 VBG 25 mmol/L; PCO2 VBG 46 mmhg; PO2 VBG 45 mmhg; pH VBG 7.36 (7.32-7.43)
[2020-11-18 12:56] LABS: Oxygen Saturation VBG 78.5 %
[2020-11-18 13:11] LABS: Glucose Urine UA NEG (NEG); Leukocyte Esterase Urine NEG (NEG); Nitrite Urine NEG (NEG); Specific Gravity - Urine 1.015 (1.005-1.025); Urine Blood TRACE (NEG); Urine Ketones NEG (NEG); Urine Protein 1+ MG/DL (NEG-TRACE)
[2020-11-18 13:12] LABS: Appearance Urine CLEAR; Color Urine YELLOW
[2020-11-18 13:18] LABS: Squamous Epithelial Cell Urine 2+ /LPF
[2020-11-18 13:28] LABS: Lactic Acid 1.9 mmol/L (0.5-2.0)
[2020-11-18 13:29] LABS: Influenza A PCR NEGATIVE (Negative); Influenza B PCR NEGATIVE (Negative); Resp Syncy Virus RNA Qual PCR NEGATIVE (Negative); SARS COV2 PCR INHOUSE NEGATIVE (Negative)
[2020-11-18 13:38] LABS: Alanine Aminotransferase < 6 U/L (0-40); Albumin Level 3.3 g/dL (3.5-5.0); Alkaline Phosphatase 60 U/L (39-117); Anion Gap 12 (12-20); Aspartate Amino Transferase 22 U/L (5-37); Bilirubin Direct 0.6 mg/dL (0.0-0.5); Bilirubin Total 1.4 mg/dL (0.0-1.0); Blood Urea Nitrogen 15 mg/dL (9-16); C Reactive Protein 0.16 mg/dL (< or = 0.50); Calcium 8.7 mg/dL (8.4-10.2); Carbon Dioxide 24 mmol/L (22-29); Chloride 109 mmol/L (96-108); Creatinine Clr Calc Pharmacy 106.8; Estimated Glomerular Filt Rate > 60; Glucose Random 181 mg/dL (60-115); Magnesium 1.9 mg/dL (1.6-2.6); Potassium 4.1 mmol/l (3.3-5.1); Sodium 141 mmol/L (135-145); Total Protein 6.3 g/dL (6.5-8.0)
[2020-11-18] MEDS: Piperacillin Sodium/Tazobactam 4.5 GM in 0.9 % Sodium Chloride 100 ML IV (13:55)
[2020-11-18 14:00] LABS: Procalcitonin 0.03 ng/mL
--- NOTE | 2020-11-18 14:33 | CT_ITS ---
EXAMINATION: CT CHEST WITHOUT CONTRAST CLINICAL INFORMATION: Aspiration COMPARISON: Previous chest CT February 2020 and chest x-ray most recent from earlier the same day TECHNIQUE: Multidetector volumetric CT imaging of the chest was done. Axial MIP volume rendering provided. Sagittal and coronal reformatted images were obtained. This CT examination was performed using dose optimization techniques as appropriate, variously including the following: *Automated exposure control *Adjustment of mA and/or kV according to patient size (this includes techniques or standardized protocols for targeted exams where dose is matched to indication/reason for exam; i.e. extremities or head) *Use of iterative reconstruction technique DLP: 482 mGy-cm FINDINGS: RECYCLING OR RUBBISH COLLECTOR: LUNGS: Is minimal dependent atelectasis seen at the lung bases. There is no evidence of a pneumonia. MEDIASTINUM: There is evidence of atherosclerotic disease. The heart is upper normal in size. There is a trace pericardial effusion or thickening. The thoracic aorta is normal in caliber. There are no enlarged hilar or mediastinal lymph nodes. PLEURA: There is no pleural effusion. No pleural mass or thickening. AXILLA: No lymphadenopathy. Is bilateral pedicle mass seen. UPPER ABDOMEN: The liver is nodular in contour suggestive of cirrhosis. The spleen appears enlarged. The OSSEOUS STRUCTURES: Unremarkable. CT/CT chest wo con IMPRESSION: No evidence of pneumonia. Minimal dependent atelectasis at both lung bases. Upper normal-size heart and mild atherosclerotic disease. Cirrhotic changes of the liver and splenomegaly.
--- NOTE | 2020-11-18 14:59 | P.HPHOSP_ITS ---
History of Present Illness Date of Service: 11/18/20 Chief Complaint: Confusion 60 year old man presenting with increased confusion. Stable vital signs, apparently he was having pain all over his body and he had an episode of choking yesterday. He nodded his head no when asked if he had pain and stated that he hi his head on a door. That was all he was able to explain. His vital signs stable, labs within acceptable limits. [facility] Medical History Ataxia Dementia Diabetes Drug abuse, cocaine type Essential tremor ETOH abuse Orthostatic hypotension Parkinson disease Schizophrenia Social History Alcohol intake: unknown Smoking Status: Current some day smoker Use of substances other than those prescribed or required for medical reasons: Unable to respond Advance Directives: No Advance Directives Information Provided: No Meds Allergies Allergy/AdvReac Type Severity Reaction Status Date / Time POLLEN/RAGWEED Allergy Unknown UNKNOWN Uncoded 11/18/20 12:00 Physical Exam Vital Signs and Narrative: Vital Signs: Last Vital Signs Temp 97.6 F 11/18/20 13:57 Pulse 76 11/18/20 13:57 Resp 16 11/18/20 13:57 BP 187/78 H 11/18/20 13:57 Pulse Ox 99 11/18/20 13:57 Body Mass Index 26.2 Results Labs CBC and Chem 7: 11/18/20 12:41 11/18/20 12:41 Labs: Laboratory Results - last 24 hr 11/18/20 11/18/20 11/18/20 12:41 12:41 12:41 MCV 91.1 MCH 32.2 MCHC 35.4 RDW 14.6 Plt Count 64 L MPV 10.0 Immature Gran % (Auto) 0.2 Neut % (Auto) 62.1 Lymph % (Auto) 23.3 [place] % (Auto) 7.5 Eos % (Auto) 6.2 H Baso % (Auto) 0.7 Lymph # (Auto) 1.1 L [place] # (Auto) 0.3 Eos # (Auto) 0.3 Baso # (Auto) 0.0 Abs Immat Gran (auto) 0.01 Absolute Neuts (auto) 2.8 Absolute Nucleated RBC 0.000 Nucleated RBC % (auto) 0.0 Hold Blue Top VBG pH VBG pCO2 VBG pO2 VBG HCO3 VBG O2 Saturation VBG Base Excess Anion Gap 12 Estim Creat Clear Calc 106.8 Estimated GFR > 60 Random Glucose 181 H D Lactic Acid 1.9 Calcium 8.7 D Magnesium 1.9 Total Bilirubin 1.4 H Direct Bilirubin 0.6 H AST 22 D ALT < 6 Alkaline Phosphatase 60 C-Reactive Protein 0.16 Total Protein 6.3 L Albumin 3.3 L Procalcitonin Urine Color Urine Appearance Urine pH Ur Specific [place] Urine Protein Urine Glucose (UA) Urine Ketones Urine Blood Urine Nitrite Ur Leukocyte Esterase Urine RBC Urine WBC Ur Squamous Epith Cells Urine Bacteria Coronavirus (PCR) Influenza Type A (PCR) Influenza Type B (PCR) RSV RNA Qual (PCR) 11/18/20 11/18/20 11/18/20 12:41 12:41 12:41 MCV MCH MCHC RDW Plt Count MPV Immature Gran % (Auto) Neut % (Auto) Lymph % (Auto) [place] % (Auto) Eos % (Auto) Baso % (Auto) Lymph # (Auto) [place] # (Auto) Eos # (Auto) Baso # (Auto) Abs Immat Gran (auto) Absolute Neuts (auto) Absolute Nucleated RBC Nucleated RBC % (auto) Hold Blue Top SEE NOTE VBG pH VBG pCO2 VBG pO2 VBG HCO3 VBG O2 Saturation VBG Base Excess Anion Gap Estim Creat Clear Calc Estimated GFR Random Glucose Lactic Acid Calcium Magnesium Total Bilirubin Direct Bilirubin AST ALT Alkaline Phosphatase C-Reactive Protein Total Protein Albumin Procalcitonin 0.03 Urine Color Urine Appearance Urine pH Ur Specific [place] Urine Protein Urine Glucose (UA) Urine Ketones Urine Blood Urine Nitrite Ur Leukocyte Esterase Urine RBC Urine WBC Ur Squamous Epith Cells Urine Bacteria Coronavirus (PCR) NEGATIVE Influenza Type A (PCR) NEGATIVE Influenza Type B (PCR) NEGATIVE RSV RNA Qual (PCR) NEGATIVE 11/18/20 11/18/20 12:41 12:52 MCV MCH MCHC RDW Plt Count MPV Immature Gran % (Auto) Neut % (Auto) Lymph % (Auto) [place] % (Auto) Eos % (Auto) Baso % (Auto) Lymph # (Auto) [place] # (Auto) Eos # (Auto) Baso # (Auto) Abs Immat Gran (auto) Absolute Neuts (auto) Absolute Nucleated RBC Nucleated RBC % (auto) Hold Blue Top VBG pH 7.36 VBG pCO2 46 VBG pO2 45 VBG HCO3 25 VBG O2 Saturation 78.5 VBG Base Excess -0.5 Anion Gap Estim Creat Clear Calc Estimated GFR Random Glucose Lactic Acid Calcium Magnesium Total Bilirubin Direct Bilirubin AST ALT Alkaline Phosphatase C-Reactive Protein Total Protein Albumin Procalcitonin Urine Color YELLOW Urine Appearance CLEAR Urine pH 7.0 Ur Specific [place] 1.015 Urine Protein 1+ H Urine Glucose (UA) NEG Urine Ketones NEG Urine Blood TRACE Urine Nitrite NEG Ur Leukocyte Esterase NEG Urine RBC 5-9 H Urine WBC 1-4 Ur Squamous Epith Cells 2+ Urine Bacteria NONE Coronavirus (PCR) Influenza Type A (PCR) Influenza Type B (PCR) RSV RNA Qual (PCR) Imaging Radiologist's Impressions: Impressions Chest X-Ray 11/18/20 12:04 IMPRESSION: Question increased central bronchial markings/bronchial wall thickening. No evidence of pneumonia. Head CT 11/18/20 12:05 IMPRESSION: No acute intracranial process seen. There is mild cerebral volume loss. 2 soft tissue nodules along the right and midline scalp, stable.
--- NOTE | 2020-11-18 15:50 | PC.NURSE ---
Pt is now much more alert than upon arrival- pt opening eyes to name, asking for water- given moist swab, npo due to failed swallow eval- will reassess when pt is more alert and following more commands. Pt follows some simple commands, continues to appear confused. Oriented to self only at this time. Pending CT and lab results. Pt previously removed IV 18g L AC- new 20g r wrist placed and wrapped.
[2020-11-18 16:20] LABS: Ammonia 89 umol/L (13-55)
[2020-11-18] MEDS: Lactulose 20 GM/30 ML SOLUTION PO ×2 (16:52→21:47)
--- NOTE | 2020-11-18 16:55 | PC.NURSE ---
Pt now much more alert and oriented to self/time, able to vocalized needs and follow commands. PA aware of pts bp- no new orders at this time. Passed swallow eval.
--- NOTE | 2020-11-18 18:16 | PM.EVENT ---
Event Note Date of Service: 11/19/20 Event Note: Addendum to H and P by Mid-level Provider I saw and examined the patient and participated in the pradhan portion of the E/M service. I agree with the history and exam as documented by HORTICULTURE SUPERINTENDENT. Patient likely has .hepatic encephalopathy. Will admit and treate with lactulose and work up. Otherwise, I agree with assessment and plan as outlined in the H and P.
--- NOTE | 2020-11-18 20:24 | PC.NURSE ---
x1 attempt to give report. awaiting callback
[2020-11-18 21:25] LABS: Glucose, Whole Blood 295 mg/dL (60-115)
[2020-11-18] MEDS: diazePAM 2 MG TABLET 1 MG PO (21:44)
[2020-11-18] MEDS: Insulin Glargine,Hum.rec.anlog 100 UNIT/ML 10 ML VIAL 17 UNIT SUBCUT (21:47)
[2020-11-18] MEDS: Carbidopa/Levodopa 25/100 TABLET 1 TAB PO (21:47)
[2020-11-18] MEDS: Docusate Sodium 100 MG CAPSULE PO (21:47)
[2020-11-18] MEDS: traMADoL HCL 50 MG TABLET PO (21:47)
[2020-11-18] MEDS: Gabapentin 300 MG CAPSULE 900 MG PO (21:47)
[2020-11-18] MEDS: Insulin Lispro 100 UNIT/ML 3 ML VIAL SUBCUT (21:48)
[2020-11-18] MEDS: Pregabalin 75 MG CAPSULE PO (22:01)
[2020-11-18] MEDS: Benztropine Mesylate 1 MG TABLET PO (22:01)
[2020-11-18] MEDS: 0.9 % Sodium Chloride Flush 3 ML SYRINGE IVFLUSH (23:39)
[2020-11-19] VITALS: BP 168/66; PULSE 94; RESP 20; TEMP 37; O2SAT 99
--- NOTE | 2020-11-19 | US_ITS ---
EXAMINATION: US ABDOMEN LIMITED CLINICAL INFORMATION: Cirrhosis. COMPARISON: Renal ultrasound 06/03/2020. Ultrasound abdomen complete 01/01/2018. TECHNIQUE: Real-time imaging of the right upper quadrant abdominal viscera. Limited ICU portable exam. FINDINGS: PANCREAS: Not visualized due to overlying bowel gas LIVER: Markedly increased echogenicity limiting assessment. No gross focal lesion The liver contour is normal. No focal hepatic lesion. There is no intrahepatic biliary duct dilatation seen. GALLBLADDER: Normal. The gallbladder is physiologically distended without evidence of stones, sludge, polyps, wall thickening or pericholecystic fluid. COMMON BILE DUCT: Normal in caliber measuring 0.5 cm in diameter. RIGHT KIDNEY: Normal. No hydronephrosis. No renal calculi or focal parenchymal lesions. The kidney measures 10.7 cm in maximum dimension. FREE FLUID: None. US/US abdomen limited IMPRESSION: Limited portable ICU exam demonstrating nonvisualization of pancreas. The liver is markedly echogenic consistent with severe hepatic steatosis versus fibrosis. No discrete lesion or gallstones. Consider MRI based on clinical suspicion as well as laboratory assessment based on the limitations of this ultrasound.
[2020-11-19 04:00] VITALS: PULSE 88; RESP 16; O2SAT 99
[2020-11-19 07:31] LABS: Glucose, Whole Blood 211 mg/dL (60-115)
[2020-11-19 07:50] VITALS: BP 168/67; PULSE 93; RESP 16; TEMP 36.9; O2SAT 95
[2020-11-19] MEDS: Insulin Lispro 100 UNIT/ML 3 ML VIAL SUBCUT ×3 (08:05→21:23)
[2020-11-19] MEDS: 0.9 % Sodium Chloride Flush 3 ML SYRINGE IVFLUSH ×3 (08:06→23:58)
[2020-11-19 08:36] LABS: Basophils Percent Auto 0.4 % (0-2); Eosinophils Absolute Auto 0.1 X10*3/uL (0.0-0.4); Eosinophils Percent Auto 2.6 % (0-4); Hematocrit 25.9 % (42-52); Hemoglobin 9.1 g/dl (14.0-18.0); Imm Gran Abs Auto 0.02 X10*3/uL (0.00-0.03); Imm Gran Pct Auto 0.4 % (0.0-0.4); Lymphocytes Absolute Auto 1.4 X10*3/uL (1.2-4.9); Lymphocytes Percent Auto 30.4 % (20-40); MANUAL DIFF FLAG NO; Mean Corpuscular HGB Conc 35.1 g/dl (31.0-36.0); Mean Corpuscular Volume 91.2 fL (80-98); Mean Platelet Volume 10.5 fL (9.4-12.4); Monocytes Absolute Auto 0.4 X10*3/uL (0.1-1.2); Monocytes Percent Auto 9.2 % (2-11); Neutrophils Absolute Auto 2.6 X10*3/uL (2.0-8.3); Red Blood Count 2.84 X10*6/uL (4.60-5.80); Red Cell Distribution Width 14.6 % (11.0-16.0); White Blood Count 4.6 X10*3/uL (4.8-10.8)
[2020-11-19 08:46] LABS: Platelet Count 77 X10*3/uL (160-400)
[2020-11-19 08:55] LABS: Ammonia 91 umol/L (13-55)
[2020-11-19] MEDS: diazePAM 2 MG TABLET 1 MG PO ×2 (09:30→21:12)
[2020-11-19] MEDS: metFORMIN HCl 1,000 MG TABLET 1000 MG PO ×2 (09:31→17:03)
[2020-11-19] MEDS: Aspirin Enteric Coated 81 MG TABLET.DR PO (09:31)
[2020-11-19] MEDS: traMADoL HCL 50 MG TABLET PO ×2 (09:31→21:11)
[2020-11-19] MEDS: Gabapentin 300 MG CAPSULE 900 MG PO ×3 (09:31→21:12)
[2020-11-19] MEDS: Sennosides 8.6 MG TABLET PO (09:31)
[2020-11-19] MEDS: Carbidopa/Levodopa 25/100 TABLET 1 TAB PO ×4 (09:31→21:11)
[2020-11-19] MEDS: Loratadine 10 MG TABLET PO (09:31)
[2020-11-19] MEDS: Pregabalin 75 MG CAPSULE PO ×2 (09:31→21:11)
[2020-11-19] MEDS: Insulin Glargine,Hum.rec.anlog 100 UNIT/ML 10 ML VIAL 17 UNIT SUBCUT ×2 (09:32→21:23)
[2020-11-19] MEDS: Benztropine Mesylate 1 MG TABLET PO ×2 (09:32→21:11)
[2020-11-19] MEDS: Lactulose 20 GM/30 ML SOLUTION PO ×4 (09:32→21:12)
[2020-11-19 09:52] LABS: Alanine Aminotransferase 22 U/L (0-40); Alkaline Phosphatase 59 U/L (39-117); Anion Gap 12 (12-20); Aspartate Amino Transferase 29 U/L (5-37); Bilirubin Direct 0.6 mg/dL (0.0-0.5); Bilirubin Total 1.2 mg/dL (0.0-1.0); Blood Urea Nitrogen 22 mg/dL (9-16); Carbon Dioxide 24 mmol/L (22-29); Chloride 110 mmol/L (96-108); Creatinine Clr Calc Pharmacy 105.5; Estimated Glomerular Filt Rate > 60; Glucose Random 196 mg/dL (60-115); Sodium 142 mmol/L (135-145); Total Protein 5.9 g/dL (6.5-8.0)
--- NOTE | 2020-11-19 09:55 | MHC.CLN ---
WILL START 2200DM DIET R/T HX DM
--- NOTE | 2020-11-19 11:12 | MHC.CM.PN ---
Attempted to meet with pt. Pt with dementia and hepatic encephalopathy. Very confused. Unable to answer questions. Pt has guardian. Guardianship on file, Unsure who guardian is. Received a call from Tanesha, , stating she was pt guardian. Returned call and Tanesha was unavailable. Message left. D/C plan is to return to [facility] via ambulance. [place] [facility] [place]. Will monitor for d/c needs
[2020-11-19 11:18] LABS: Glucose, Whole Blood 172 mg/dL (60-115)
[2020-11-19 11:20] VITALS: BP 175/69; PULSE 81; RESP 18; TEMP 36.4; O2SAT 99
--- NOTE | 2020-11-19 11:30 | HO.PM.IMPN ---
Subjective Subjective Date of Service: 11/19/20 Interval History: Patient seen and examined at bedside patient was more awake Physical Exam Vital Signs: Vital Signs: Last Vital Signs Temp 97.6 F 11/19/20 11:20 Pulse 81 11/19/20 11:20 Resp 18 11/19/20 11:20 BP 175/69 H 11/19/20 11:20 Pulse Ox 99 11/19/20 11:20 Body Mass Index 26.5 Const: General: comfortable Resp: Effort & Inspection: normal respiratory effort GI: Inspection: Yes normal to inspection Objective Data Current Medications Generic Name Dose Route Start Last Admin Trade Name Freq PRN Reason Stop Dose Admin Acetaminophen 650 mg 11/18/20 20:39 Acetaminophen 325 Mg Tablet PO Q6H PRN Pain, Mild (Pain Scale 1-3) Aspirin 81 mg 11/19/20 09:00 11/19/20 09:31 Aspirin Enteric Coated 81 Mg Tablet. PO 81 mg DAILY ANDREY Administration Benztropine Mesylate 1 mg 11/18/20 21:00 11/19/20 09:32 Benztropine Mesylate 1 Mg Tablet PO 1 mg BID ANDREY Administration Carbidopa/Levodopa 1 tab 11/18/20 21:00 11/19/20 09:31 Carbidopa/Levodopa 25/100 Tablet PO 1 tab QID ANDREY Administration Diazepam 1 mg 11/18/20 21:00 11/19/20 09:30 Diazepam 2 Mg Tablet PO 1 mg BID ANDREY Administration Docusate Sodium 100 mg 11/18/20 21:00 11/18/20 21:47 Docusate Sodium 100 Mg Capsule PO 100 mg BEDTIME ANDREY Administration Gabapentin 900 mg 11/18/20 21:00 11/19/20 09:31 Gabapentin 300 Mg Capsule PO 900 mg TID ANDREY Administration Insulin Glargine 17 unit 11/18/20 21:00 11/19/20 09:32 Insulin Glargine,Hum.Rec.Anlog 100 Unit/Ml 10 Ml Vial SUBCUT 17 unit BID ANDREY Administration Insulin Human Lispro 0 unit 11/18/20 21:00 11/19/20 08:05 Insulin Lispro 100 Unit/Ml 3 Ml Vial SUBCUT 4 unit QIDACHS ANDREY Administration Protocol Lactulose 20 gm 11/18/20 20:39 11/19/20 09:32 Lactulose 20 Gm/30 Ml Solution PO 20 gm QID ANDREY Administration Loratadine 10 mg 11/19/20 09:00 11/19/20 09:31 Loratadine 10 Mg Tablet PO 10 mg DAILY ANDREY Administration Metformin HCl 1,000 mg 11/19/20 08:00 11/19/20 09:31 Metformin Hcl 1,000 Mg Tablet PO 1,000 mg BIDWM ANDREY Administration Midodrine 5 mg 11/19/20 09:00 11/19/20 09:34 Midodrine Hcl 5 Mg Tablet PO Not Given DAILY [facility] Ondansetron HCl 4 mg 11/18/20 20:39 Ondansetron Hcl 4 Mg/2 Ml Vial IVPUSH Q8H PRN Nausea and Vomiting Pharmacy Consult 1 each 11/18/20 16:56 Consult Rx Perform Med Rec MISCELLANE ONCE PRN Consult order Pregabalin 75 mg 11/18/20 21:00 11/19/20 09:31 Pregabalin 75 Mg Capsule PO 75 mg BID [facility] Administration Senna 8.6 mg 11/19/20 09:00 11/19/20 09:31 Sennosides 8.6 Mg Tablet PO 8.6 mg Q48H ANDREY Administration Sodium Chloride 3 ml 11/19/20 00:00 11/19/20 08:06 0.9 % Sodium Chloride Flush 3 Ml Syringe IVFLUSH 3 ml QSHIFT [facility] Administration Tramadol HCl 50 mg 11/18/20 21:00 11/19/20 09:31 Tramadol Hcl 50 Mg Tablet PO 50 mg BID ANDREY Administration Ziprasidone 20 mg 11/19/20 18:00 Ziprasidone 20 Mg Capsule PO DAILY@1800 [facility] Labs CBC & Chem 7: 11/19/20 08:13 11/19/20 08:13 Assessment and Plan (1) Acute hepatic encephalopathy: Status: Acute (2) Dementia: Status: Acute (3) Ataxia: Status: Acute (4) Schizophrenia: Status: Acute Assessment and Plan: 60-year-old male presented from facility with weakness worsening confusion found to have elevated ammonia level Acute hepatic Encephalopathy Ammonia level still high continue lactulose monitor mental status history of schizophrenia continue Ziprasidone continue diazepam, benztropine continue Sinemet DVT prophylaxis Venodyne given thrombocytopenia
--- NOTE | 2020-11-19 11:45 | MHC.CM.PN ---
Spoke with Tanesha Pruitt, Commissioner [employer] clinical social work therapist for [place], [place], guardian, . Reviewed IMM. Tanesha requested copy be left at bedside. Reviewed pt condition and expectation that pt would return to [facility]. Tanesha expressed concerns that pt has been on downward trend mentally since he had Covid 6 months ago. Aware that ammonia level was high and that could be a reason why pt is more confused. Also that he has dementia and it's a progressive disease. Will follow for d/c needs
--- NOTE | 2020-11-19 13:32 | CONS_ITS ---
DATE OF SERVICE: 11/19/2020 REFERRING PHYSICIAN: Felicia Montelongo NP REASON FOR CONSULTATION: Change in mental status and hepatic encephalopathy. HISTORY OF PRESENT ILLNESS: The patient is a 60-year-old man, who was admitted to the hospital with a change in mental status. He provides very little history. The history is obtained primarily from the chart. He was brought to the emergency room from the nursing facility, where he lives because of a change in mental status. He reportedly had a choking episode the day before admission and the next morning was noted to complain of general weakness and complained of pain all over. He was reportedly less verbal than usual. He does have a history of dementia, Parkinson disease, and schizophrenia, but is reportedly able to answer simple questions and walked with assist at baseline. COVID testing 2 days before the ER evaluation was negative. He was evaluated in the emergency room for possible aspiration pneumonia and underwent CT scanning, which is reviewed. Chest CT is interpreted as showing cirrhotic changes of the liver and splenomegaly in the upper abdomen. The patient states he used to drink alcohol heavily, but quit 12 years ago. There is a history of drug abuse too and he is reportedly abstinent now. There has been no reported GI bleeding or history of ascites. PAST MEDICAL HISTORY: 1. Substance abuse as above. 2. Parkinson disease. 3. Dementia. 4. Diabetes with neuropathy. 5. Schizophrenia. 6. Pancytopenia. 7. Orthostatic hypotension. 8. Dysphagia. CURRENT MEDICATIONS: Current medication list is reviewed in the chart. ALLERGIES: Reviewed. FAMILY HISTORY: This is not obtainable. SOCIAL HISTORY: He does reportedly smoke. There is no alcohol or substance abuse. REVIEW OF SYSTEMS: This is not obtainable. PHYSICAL EXAMINATION: GENERAL: Shows a pleasant male, lying on his side in bed. VITAL SIGNS: Reviewed in the electronic medical record and are stable. SKIN: Anicteric. HEENT: No scleral icterus. NECK: Without lymphadenopathy or thyromegaly. LUNGS: Clear. HEART: Regular rate and rhythm. S1, S2. No murmur. ABDOMEN: Soft without focal masses or tenderness. Bowel sounds are present. No organomegaly is noted. EXTREMITIES: Without edema. He does appear to have a mild asterixis. LABORATORY DATA: Reviewed. Serum ammonia was elevated at 91. IMPRESSION: Cirrhosis with hepatic encephalopathy. His cirrhosis is likely on the basis of his history of alcohol abuse. I would recommend obtaining a formal ultrasound imaging for further evaluation and characterization of his liver. He is currently being treated with lactulose and I would recommend continuing this. Transaminases were normal on his initial workup and his bilirubin elevated. I would recommend monitoring liver function tests. Thanks for asking me to see him. I will follow him in the hospital with you. MD PIPE Morgan/BETHANY / [id number] MTDAntonio
[2020-11-19 16:00] VITALS: BP 149/62; PULSE 78; RESP 18; TEMP 37.3; O2SAT 99
[2020-11-19 17:00] LABS: Glucose, Whole Blood 107 mg/dL (60-115)
[2020-11-19] MEDS: Ziprasidone 20 MG CAPSULE PO (17:03)
[2020-11-19 20:00] VITALS: BP 140/102; PULSE 89; RESP 18; TEMP 37.2; O2SAT 95
[2020-11-19] MEDS: Docusate Sodium 100 MG CAPSULE PO (21:12)
[2020-11-19 21:57] LABS: Glucose, Whole Blood 177 mg/dL (60-115)
[2020-11-20] VITALS: BP 145/63; PULSE 70; RESP 16; TEMP 36.5; O2SAT 98
[2020-11-20 04:00] VITALS: BP 158/71; PULSE 68; RESP 16; TEMP 36.6; O2SAT 96
[2020-11-20 06:31] LABS: Iron 56 mcg/dL (45-160); Percent Iron Saturation 24 % (15-50); Total Iron Binding Capacity 230 mcg/dL (228-428); Unsaturated Iron Binding 174 ug/dL
[2020-11-20 07:00] LABS: Ferritin 70 ng/mL (20-250)
[2020-11-20 07:33] LABS: Glucose, Whole Blood 102 mg/dL (60-115)
[2020-11-20 08:00] VITALS: BP 156/64; PULSE 66; RESP 13; TEMP 36.5; O2SAT 100
[2020-11-20 08:09] LABS: HBsAGNum1 0.19 S/CO (0.00-0.99); Hepatitis A Antibody IgM 0.11 Index (0-0.79); Hepatitis B Surface Antigen Negative (Negative); ~Hepatitis A Antibody IgM Nonreactive (Nonreactive)
[2020-11-20 08:22] LABS: HBS Num1 0.14 mIU/mL (0-7.99); HBc Num1 0.27 S/CO (0.00-0.79); Hepatitis B Core Antibody Nonreactive (Nonreactive); ~HepC Num1 0.12 S/CO (0.00-0.79); ~Hepatitis B Surface Antibody NONREACTIVE (Nonreactive); ~Hepatitis C Antibody Nonreactive (Nonreactive)
[2020-11-20] MEDS: Gabapentin 300 MG CAPSULE 900 MG PO ×2 (08:26→13:20)
[2020-11-20] MEDS: Pregabalin 75 MG CAPSULE PO (08:27)
[2020-11-20] MEDS: Aspirin Enteric Coated 81 MG TABLET.DR PO (08:27)
[2020-11-20] MEDS: traMADoL HCL 50 MG TABLET PO (08:28)
[2020-11-20] MEDS: Lactulose 20 GM/30 ML SOLUTION PO ×2 (08:28→13:20)
[2020-11-20] MEDS: Benztropine Mesylate 1 MG TABLET PO (08:28)
[2020-11-20] MEDS: metFORMIN HCl 1,000 MG TABLET 1000 MG PO (08:29)
[2020-11-20] MEDS: diazePAM 2 MG TABLET 1 MG PO (08:29)
[2020-11-20] MEDS: Loratadine 10 MG TABLET PO (08:29)
[2020-11-20] MEDS: Carbidopa/Levodopa 25/100 TABLET 1 TAB PO ×2 (08:30→13:20)
[2020-11-20] MEDS: Insulin Glargine,Hum.rec.anlog 100 UNIT/ML 10 ML VIAL 17 UNIT SUBCUT (08:30)
[2020-11-20 08:33] VITALS: BP 156/64; PULSE 70
[2020-11-20] MEDS: 0.9 % Sodium Chloride Flush 3 ML SYRINGE IVFLUSH (08:34)
[2020-11-20 09:16] LABS: Ammonia 49 umol/L (13-55)
[2020-11-20 09:31] LABS: Alanine Aminotransferase 13 U/L (0-40); Alkaline Phosphatase 51 U/L (39-117); Anion Gap 10 (12-20); Aspartate Amino Transferase 29 U/L (5-37); Blood Urea Nitrogen 20 mg/dL (9-16); Calcium 7.8 mg/dL (8.4-10.2); Carbon Dioxide 25 mmol/L (22-29); Chloride 111 mmol/L (96-108); Creatinine Clr Calc Pharmacy 120.2; Estimated Glomerular Filt Rate > 60; Glucose Random 103 mg/dL (60-115); Potassium 3.8 mmol/l (3.3-5.1); Sodium 142 mmol/L (135-145); Total Protein 5.7 g/dL (6.5-8.0)
--- NOTE | 2020-11-20 10:33 | P.DS_ITS ---
DS: Providers Provider Date of Service: 11/20/20 Date of admission: 11/18/20 16:55 Primary care physician: Unknown Physician Consults: 11/18/20 20:39 Consult to Gastroenterology Routine Consulting Provider: Ronnie Roth Reason for consultation: hepatic encephalopathy Has provider been notified: No DS: Diagnosis Discharge Diagnosis (1) Acute hepatic encephalopathy: Status: Acute (2) Dementia: Status: Acute (3) Ataxia: Status: Acute (4) Schizophrenia: Status: Acute DS: Medications Discharge Medications Home Medications: Home Medications Medication Instructions Recorded Confirmed Levemir FlexTouch U-100 Insuln 25 unit SUBCUT BID 11/18/20 11/18/20 Lotrimin AF 1 spray TOPICAL BID PRN 11/18/20 11/18/20 aspirin 81 mg PO DAILY 11/18/20 11/18/20 benztropine 1 mg PO BID 11/18/20 11/18/20 betamethasone, augmented 1 appl TOPICAL BID 11/18/20 11/18/20 carbidopa-levodopa [Sinemet] 1 tab PO QID 11/18/20 11/18/20 diazepam 1 mg PO BID 11/18/20 11/18/20 fluphenazine decanoate 50 mg SUBCUT Q2W 11/18/20 11/18/20 gabapentin 900 mg PO TID 11/18/20 11/18/20 loratadine 10 mg PO DAILY 11/18/20 11/18/20 metformin 1,000 mg PO BIDWM 11/18/20 11/18/20 midodrine 5 mg PO DAILY 11/18/20 11/18/20 pregabalin [Lyrica] 75 mg PO BID 11/18/20 11/18/20 tramadol 50 mg PO BID 11/18/20 11/18/20 ziprasidone HCl 20 mg PO DAILY@1800 11/18/20 11/18/20 Previous Rx's Medication Instructions Recorded lactulose 20 g PO TID #1000 ml 11/20/20 DS: Summary Hospital Course Hospital Course: 60-year-old male admitted with history of alcohol abuse admitted with acute hepatic encephalopathy, patient was started on lactulose and supportive management, ammonia level trended down, encephalopathy has resolved, patient was seen by GI , repeat LFTs were trending down, ultrasound abdomen shows hepatic steatosis versus fibrosis, patient was stable, patient was discharged back to [facility] on p.o. lactulose , Time Spent with Patient Time attestation: Total time spent providing and/or coordinating discharge services: Discharge coordination time: Greater than 30 minutes Physical Exam Vital Signs: Vital Signs: Last Vital Signs Temp 97.7 F 11/20/20 08:00 Pulse 70 11/20/20 08:33 Resp 13 11/20/20 08:00 BP 156/64 H 11/20/20 08:33 Pulse Ox 100 11/20/20 08:00 Body Mass Index 26.5 Const: General: comfortable Resp: Effort & Inspection: normal respiratory effort GI: Inspection: Yes normal to inspection DS: Data Data Completed and Pending Labs on day of discharge: 11/18/20 12:04 ECG 12 lead EKG Stat EKG Documentation DIRECTED XR chest 1V Stat 11/18/20 12:05 CT head/brain wo con Stat 11/18/20 12:15 0.9 % Sodium Chloride [Ns] 1,000 ml IVCONT 999 mls/hr 11/18/20 12:41 Basic Metabolic Panel Stat C Reactive Protein Stat Complete Blood Count Auto Diff Stat Hold Lt Blue - Possible Coag Stat Lactic Acid Stat Liver Panel Stat Magnesium Stat Procalcitonin Stat SARS-CoV2/FLU/RSV Stat Venous Blood Gas Stat 11/18/20 13:42 Piperacillin Sodium/Tazobactam [Zosyn] 4.5 gm 0.9 % Sodium Chloride [Ns] 100 ml IV ONCE 11/18/20 13:43 methylPREDNISolone Sod Succ/PF [SOLU-MedroL] 40 mg IVPUSH ONCE ONE 11/18/20 13:51 Piperacillin Sodium/Tazobactam [Zosyn] 4.5 gm IV .STK-MED ONE 11/18/20 14:33 CT chest wo con Stat 11/18/20 15:42 Ammonia Stat 11/18/20 16:31 Lactulose [Chronulac] 20 gm PO ONCE ONE 11/18/20 16:53 Transfer Order Routine 11/18/20 Dinner Low Sodium Diet 11/18/20 21:21 Glucose, Whole Blood Routine 11/19/20 US abdomen limited Routine 11/19/20 07:20 Glucose, Whole Blood Routine 11/19/20 08:13 Ammonia DAILY Basic Metabolic Panel DAILY@0600 Complete Blood Count Auto Diff DAILY@0600 Liver Panel DAILY@0600 11/19/20 11:15 Glucose, Whole Blood Routine 11/19/20 16:56 Glucose, Whole Blood Routine 11/19/20 21:19 Glucose, Whole Blood Routine 11/20/20 05:51 Ferritin Routine Hepatitis A,B,C Profile Routine IRON PROFILE Routine 11/20/20 07:21 Glucose, Whole Blood Routine 11/20/20 08:16 Ammonia Routine Comprehensive Met. Panel Routine Laboratory Last Values WBC 4.6 X10*3/uL (4.8-10.8) L 11/19/20 08:13 RBC 2.84 X10*6/uL (4.60-5.80) L 11/19/20 08:13 Hgb 9.1 g/dl (14.0-18.0) L 11/19/20 08:13 Hct 25.9 % (42-52) L 11/19/20 08:13 MCV 91.2 fL (80-98) 11/19/20 08:13 MCH 32.0 pg (27.0-33.0) 11/19/20 08:13 MCHC 35.1 g/dl (31.0-36.0) 11/19/20 08:13 RDW 14.6 % (11.0-16.0) 11/19/20 08:13 Plt Count 77 X10*3/uL (160-400) L 11/19/20 08:13 MPV 10.5 fL (9.4-12.4) 11/19/20 08:13 Immature Gran % (Auto) 0.4 % (0.0-0.4) 11/19/20 08:13 Neut % (Auto) 57.0 % (45-73) 11/19/20 08:13 Lymph % (Auto) 30.4 % (20-40) 11/19/20 08:13 [place] % (Auto) 9.2 % (2-11) 11/19/20 08:13 Eos % (Auto) 2.6 % (0-4) 11/19/20 08:13 Baso % (Auto) 0.4 % (0-2) 11/19/20 08:13 Lymph # (Auto) 1.4 X10*3/uL (1.2-4.9) 11/19/20 08:13 [place] # (Auto) 0.4 X10*3/uL (0.1-1.2) 11/19/20 08:13 Eos # (Auto) 0.1 X10*3/uL (0.0-0.4) 11/19/20 08:13 Baso # (Auto) 0.0 X10*3/uL (0.0-0.2) 11/19/20 08:13 Abs Immat Gran (auto) 0.02 X10*3/uL (0.00-0.03) 11/19/20 08:13 Absolute Neuts (auto) 2.6 X10*3/uL (2.0-8.3) 11/19/20 08:13 Absolute Nucleated RBC 0.000 X10*3/uL (0.0-0.012) 11/19/20 08:13 Nucleated RBC % (auto) 0.0 /100WBC (0.0-0.2) 11/19/20 08:13 Hold Blue Top SEE NOTE 11/18/20 12:41 VBG pH 7.36 (7.32-7.43) 11/18/20 12:41 VBG pCO2 46 mmhg 11/18/20 12:41 VBG pO2 45 mmhg 11/18/20 12:41 VBG HCO3 25 mmol/L 11/18/20 12:41 VBG O2 Saturation 78.5 % 11/18/20 12:41 VBG Base Excess -0.5 mmol/L 11/18/20 12:41 Sodium 142 mmol/L (135-145) 11/20/20 08:16 Potassium 3.8 mmol/l (3.3-5.1) 11/20/20 08:16 Chloride 111 mmol/L (96-108) H 11/20/20 08:16 Carbon Dioxide 25 mmol/L (22-29) 11/20/20 08:16 Anion Gap 10 (12-20) L 11/20/20 08:16 BUN 20 mg/dL (9-16) H 11/20/20 08:16 Creatinine 0.72 mg/dL (0.5-1.4) 11/20/20 08:16 Estim Creat Clear Calc 120.2 11/20/20 08:16 Estimated GFR > 60 11/20/20 08:16 POC Glucose 102 mg/dL (60-115) 11/20/20 07:21 Random Glucose 103 mg/dL (60-115) D 11/20/20 08:16 Lactic Acid 1.9 mmol/L (0.5-2.0) 11/18/20 12:41 Calcium 7.8 mg/dL (8.4-10.2) L 11/20/20 08:16 Magnesium 1.9 mg/dL (1.6-2.6) 11/18/20 12:41 Iron 56 mcg/dL (45-160) 11/20/20 05:51 TIBC 230 mcg/dL (228-428) 11/20/20 05:51 % Saturation 24 % (15-50) 11/20/20 05:51 Unsat Iron Binding 174 ug/dL 11/20/20 05:51 Ferritin 70 ng/mL (20-250) 11/20/20 05:51 Total Bilirubin 1.0 mg/dL (0.0-1.0) 11/20/20 08:16 Direct Bilirubin 0.6 mg/dL (0.0-0.5) H 11/19/20 08:13 AST 29 U/L (5-37) 11/20/20 08:16 ALT 13 U/L (0-40) 11/20/20 08:16 Alkaline Phosphatase 51 U/L (39-117) 11/20/20 08:16 Ammonia 49 umol/L (13-55) 11/20/20 08:16 C-Reactive Protein 0.16 mg/dL (< or = 0.50) 11/18/20 12:41 Total Protein 5.7 g/dL (6.5-8.0) L 11/20/20 08:16 Albumin 3.0 g/dL (3.5-5.0) L 11/20/20 08:16 Procalcitonin 0.03 ng/mL 11/18/20 12:41 Urine Color YELLOW 11/18/20 12:52 Urine Appearance CLEAR 11/18/20 12:52 Urine pH 7.0 (5.0-8.0) 11/18/20 12:52 Ur Specific [place] 1.015 (1.005-1.025) 11/18/20 12:52 Urine Protein 1+ MG/DL (NEG-TRACE) H 11/18/20 12:52 Urine Glucose (UA) NEG MG/DL (NEG) 11/18/20 12:52 Urine Ketones NEG MG/DL (NEG) 11/18/20 12:52 Urine Blood TRACE (NEG) 11/18/20 12:52 Urine Nitrite NEG (NEG) 11/18/20 12:52 Ur Leukocyte Esterase NEG (NEG) 11/18/20 12:52 Urine RBC 5-9 /HPF (0) H 11/18/20 12:52 Urine WBC 1-4 /HPF (0-4) 11/18/20 12:52 Ur Squamous Epith Cells 2+ /LPF 11/18/20 12:52 Urine Bacteria NONE /LPF 11/18/20 12:52 Coronavirus (PCR) NEGATIVE (Negative) 11/18/20 12:41 Hepatitis A IgM Ab Nonreactive (Nonreactive) 11/20/20 05:51 Hep Bs Antigen Negative (Negative) 11/20/20 05:51 Hep Bs Antibody NONREACTIVE (Nonreactive) 11/20/20 05:51 Hep B Core Total Ab Nonreactive (Nonreactive) 11/20/20 05:51 Hepatitis C Ab (EIA) Nonreactive (Nonreactive) 11/20/20 05:51 Influenza Type A (PCR) NEGATIVE (Negative) 11/18/20 12:41 Influenza Type B (PCR) NEGATIVE (Negative) 11/18/20 12:41 RSV RNA Qual (PCR) NEGATIVE (Negative) 11/18/20 12:41 Preliminary micro results at discharge 11/18/20 12:41 Blood Culture - Preliminary Blood - Venous No growth after 24 hours. 11/18/20 12:42 Blood Culture - Preliminary Blood - Venous No growth after 24 hours. Discharge Plan Discharge Anticipated Discharge Date/Time: 11/20/20 10:22 Patient Disposition: Home, Self-Care Referrals: [facility] [Outside] (Pt to return to [facility]) Physician,Unknown [Primary Care Provider] - Discharge Medications: New lactulose 20 gram/30 mL Solution 20 g PO TID Qty: 1000 RF: 0 Continued betamethasone, augmented 0.05 % Cream 1 appl TOPICAL BID RF: 0 midodrine 5 mg Tablet 5 mg PO DAILY RF: 0 aspirin 81 mg Tablet,Delayed Release (Dr/Ec) 81 mg PO DAILY RF: 0 tramadol 50 mg Tablet 50 mg PO BID RF: 0 Lotrimin AF 2 % Aerosol,[place] 1 spray TOPICAL BID PRN (Reason: fungal infection) RF: 0 ziprasidone HCl 20 mg Capsule 20 mg PO DAILY@1800 RF: 0 fluphenazine decanoate 25 mg/mL Solution 50 mg SUBCUT Q2W RF: 0 diazepam 2 mg Tablet 1 mg PO BID RF: 0 metformin 1,000 mg Tablet 1,000 mg PO BIDWM RF: 0 benztropine 1 mg Tablet 1 mg PO BID RF: 0 gabapentin 300 mg Capsule 900 mg PO TID RF: 0 carbidopa-levodopa [Sinemet] 25-100 mg Tablet 1 tab PO QID RF: 0 loratadine 10 mg Tablet 10 mg PO DAILY RF: 0 pregabalin [Lyrica] 75 mg Capsule 75 mg PO BID RF: 0 Levemir FlexTouch U-100 Insuln 100 unit/mL (3 mL) Insulin Pen 25 unit SUBCUT BID RF: 0 Discontinued sennosides [senna] 8.6 mg Tablet 8.6 mg PO Q48H RF: 0 docusate sodium [Colace] 100 mg Capsule 100 mg PO BEDTIME RF: 0 Discharge Orders: Discharge Order (Routine); Ordered 11/20/20 Ordered By: Ayaan Fang Diet: low salt diet Activity on Discharge: As tolerated Visit Report Forms: Patient Portal Discharge page Care Plan Goals: keep ammonia level controlled Health Concerns: Hepatic encephalopathy Plan of Treatment: see above
--- NOTE | 2020-11-20 11:13 | MHC.CM.PN ---
D/C order. Pt to return to [facility]. Call into [facility], Claudia, Director of nurses ([phone]). Message left
[2020-11-20 11:21] LABS: Glucose, Whole Blood 136 mg/dL (60-115)
[2020-11-20 12:00] VITALS: BP 166/70; PULSE 67; RESP 13; TEMP 36.5; O2SAT 98
--- NOTE | 2020-11-20 13:27 | MHC.CM.PN ---
[facility] accepts pt return and is aware that ambulance will transport at 2pm. [facility] to transport. Paperwork completed and given to RN in ICU. Copy of D/S summary also given.
[2020-11-23 23:22] LABS: Anti Nuclear Antibody Pattern Nuclear, Homogeneous; Anti Nuclear Antibody Screen POSITIVE (NEGATIVE); Anti Nuclear Antibody Titer 1:40 titer
[2020-11-24 09:57] LABS: Mitochondrial Antibodies NEGATIVE (NEGATIVE)
[2020-11-25 23:36] LABS: Smooth Muscle Antibody <20 U (<20)
== END 2020-11-20 14:14 | disposition home or self-care (01) | DRG 443 ==
LOC: HO.ED 14:13 → HO.ICU 19:38
PROVIDERS: Internal Medicine Gastroenterology; Nurse Practitioner Acute Care; Physician Assistant; Admitting Provider Internal Medicine; Emergency Provider Emergency Medicine; Visit Provider Internal Medicine
DX: K72.00 Acute and subacute hepatic failure without coma (principal); K70.30 Alcoholic cirrhosis of liver without ascites; G20 Parkinson's disease; F10.11 Alcohol abuse, in remission; F20.9 Schizophrenia, unspecified; F02.80 Dementia in other diseases classified elsewhere, unspecified severity, without behavioral disturbance, psychotic disturbance, mood disturbance, and anxiety; Z20.828 Contact with and (suspected) exposure to other viral communicable diseases; Z79.82 Long term (current) use of aspirin; Z79.84 Long term (current) use of oral hypoglycemic drugs; Z79.891 Long term (current) use of opiate analgesic; Z79.899 Other long term (current) drug therapy
CPT/HCPCS: 0241U; 36415; 70450; 71045; 71250; 76705; 80048; 80053; 80076; 81001; 81003; 82140; 82728; 82803; 82947; 83540; 83605; 83735; 84145; 85025; 86038; 86039; 86140; 86255; 86256; 86704; 86706; 86709; 86803; 87040; 87340; 93005; 96361; 96365; 96375; 99285; J2543; J2920

== ENCOUNTER 2020-12-10 07:01 | Inpatient (IN) | payer MEDICARE, MEDICAID, SELFPAY ==
[2020-12-10 07:09] VITALS: BP 119/68; BP 174/64; PULSE 76; PULSE 82; RESP 16; TEMP 37; O2SAT 97; O2SAT 98; BMI 29.5
--- NOTE | 2020-12-10 07:09 | ECG_ITS ---
Test Reason : ALTER MENTAL Blood Pressure : / mmHG Vent. Rate : 074 BPM Atrial Rate : 074 BPM P-R Int : 186 ms QRS Dur : 104 ms QT Int : 438 ms P-R-T Axes : 063 -46 050 degrees QTc Int : 486 ms Normal sinus rhythm Left anterior fascicular block Prolonged QT Abnormal ECG When compared with ECG of 18-NOV-2020 12:26, QRS duration has decreased Referred By: Maru Hilliard Electronically Signed By:Cristo Valverde
--- NOTE | 2020-12-10 07:10 | XR_ITS ---
EXAMINATION: XR CHEST CLINICAL INFORMATION: Weakness COMPARISON: 11/18/2020 TECHNIQUE: Frontal view of the chest was obtained. FINDINGS: Cardiac leads overlie the chest. No dense consolidation, edema, or effusion. Mild bronchial wall thickening again noted. No pneumothorax. The cardiomediastinal silhouette is within normal limits. XR/XR chest 1V IMPRESSION: No dense consolidation. Bronchial wall thickening can be seen with a small airways process such as asthma or atypical/viral infection. This is fairly similar to prior.
--- NOTE | 2020-12-10 07:11 | ED_ITS ---
HPI - Weakness General Chief complaint: Altered Mental Status Stated complaint: CONFUSION, ? ABN LABS Time Seen by Provider: 12/10/20 07:09 Source: patient, EMS and old records reviewed Mode of arrival: EMS Limitations: altered mental status History of Present Illness HPI Narrative: 60 yo male with parkinson's, liver disease, hx of hepatic encephalopathy with admission this month 11/18-11/20, gait disturbance reportedly more confused at SNF - ammonia level sent off but not resulted, patient is on lactulose Complaint: generalized weakness Onset (ago): day(s) (1) Duration: constant Location: generalized Migration: none Severity: similar to previous episodes Relieving factors: none Exacerbating factors: none Context: history of similar Associated symptoms: confusion Related Data Home Medications Medication Instructions Recorded Confirmed Levemir FlexTouch U-100 Insuln 25 unit SUBCUT BID 11/18/20 11/18/20 Lotrimin AF 1 spray TOPICAL BID PRN 11/18/20 11/18/20 aspirin 81 mg PO DAILY 11/18/20 11/18/20 benztropine 1 mg PO BID 11/18/20 11/18/20 betamethasone, augmented 1 appl TOPICAL BID 11/18/20 11/18/20 carbidopa-levodopa [Sinemet] 1 tab PO QID 11/18/20 11/18/20 diazepam 1 mg PO BID 11/18/20 11/18/20 fluphenazine decanoate 50 mg SUBCUT Q2W 11/18/20 11/18/20 gabapentin 900 mg PO TID 11/18/20 11/18/20 loratadine 10 mg PO DAILY 11/18/20 11/18/20 metformin 1,000 mg PO BIDWM 11/18/20 11/18/20 midodrine 5 mg PO DAILY 11/18/20 11/18/20 pregabalin [Lyrica] 75 mg PO BID 11/18/20 11/18/20 tramadol 50 mg PO BID 11/18/20 11/18/20 ziprasidone HCl 20 mg PO DAILY@1800 11/18/20 11/18/20 Previous Rx's Medication Instructions Recorded lactulose 20 g PO TID #1000 ml 11/20/20 Allergies Allergy/AdvReac Type Severity Reaction Status Date / Time POLLEN/RAGWEED Allergy Unknown UNKNOWN Uncoded 11/18/20 12:00 Review of Systems Review of Systems: ROS unable to be obtained due to altered mental status [facility] Past Medical History Medical History (Updated 12/10/20 @ 08:03 by Maru Hilliard DO) Ataxia Dementia Diabetes Drug abuse, cocaine type Essential tremor ETOH abuse Orthostatic hypotension Parkinson disease Schizophrenia Social History Social History Household Members: None Housing: House Alcohol intake: never Smoking Status: Never smoker Second Hand Smoke Exposure: No Use of substances other than those prescribed or required for medical reasons: No Advance Directives: No (MEDICAL REASON) Advance Directives Information Provided: No service: Yes ([employer]) Current occupational status: disabled Physical Exam Vital Signs: Vital Signs: Last Vital Signs Temp 98.6 F 12/10/20 07:09 Pulse 76 12/10/20 07:09 Resp 16 12/10/20 07:09 BP 119/68 12/10/20 07:09 Pulse Ox 98 12/10/20 07:09 Body Mass Index 29.5 Appearance: Alert. Oriented X2. No acute distress. Flat affect I wish you would stop asking me all these dumb questions. Eyes: Pupils equal, round and reactive to light. ENT: Pharynx mild dry MMM Neck: Normal inspection. Neck supple. CVS: Normal heart rate and rhythm. Pulses normal. Respiratory: No respiratory distress. Breath sounds normal. Abdomen: Soft and non-tender. Skin: Skin warm and dry. Normal skin color. Normal skin turgor. Extremities: No lower extremity edema. No calf ttp Neuro: Oriented X 2. diffuse weakness, but is able to move all extremities will not fully participate. No sensory deficit. Course Course Course Narrative: lactic acidosis likely due to hepatic dysfunction and not infection or severe sepsis PO lactulose ordered ammonia much higher than previous admission, unsure if compliant at SNF MDM - Weakness MDM Narrative Medical decision making narrative: 60 yo male with recent admission for hepatic encephalopathy comes to ED with c/o weakness and increased confusion, no trauma, no fevers reported at this time will obtain labs, ammonia level, CXR and UA dispo per results and findings, the patient is not toxic here and is responding to questions, on last visit in ED he was much more somnolent. Lab Data Result diagrams: 12/10/20 07:25 01/28/21 07:25 Labs: Lab Results 12/10/20 12/10/20 12/10/20 Range/Units 07:24 07:24 07:24 WBC (4.8-10.8) X10*3/uL RBC (4.60-5.80) X10*6/uL Hgb (14.0-18.0) g/dl Hct (42-52) % MCV (80-98) fL MCH (27.0-33.0) pg MCHC (31.0-36.0) g/dl RDW (11.0-16.0) % Plt Count (160-400) X10*3/uL MPV (9.4-12.4) fL Immature Gran % (Auto) (0.0-0.4) % Neut % (Auto) (45-73) % Lymph % (Auto) (20-40) % [place] % (Auto) (2-11) % Eos % (Auto) (0-4) % Baso % (Auto) (0-2) % Lymph # (Auto) (1.2-4.9) X10*3/uL [place] # (Auto) (0.1-1.2) X10*3/uL Eos # (Auto) (0.0-0.4) X10*3/uL Baso # (Auto) (0.0-0.2) X10*3/uL Abs Immat Gran (auto) (0.00-0.03) X10*3/uL Absolute Neuts (auto) (2.0-8.3) X10*3/uL Absolute Nucleated RBC (0.0-0.012) X10*3/uL Nucleated RBC % (auto) (0.0-0.2) /100WBC Hold Blue Top SEE NOTE Lactic Acid 2.4 H* (0.5-2.0) mmol/L Ammonia 123 H (13-55) umol/L 12/10/20 Range/Units 07:25 WBC 3.2 L (4.8-10.8) X10*3/uL RBC 2.75 L (4.60-5.80) X10*6/uL Hgb 8.8 L (14.0-18.0) g/dl Hct 25.0 L (42-52) % MCV 90.9 (80-98) fL MCH 32.0 (27.0-33.0) pg MCHC 35.2 (31.0-36.0) g/dl RDW 14.1 (11.0-16.0) % Plt Count 47 L D (160-400) X10*3/uL MPV 11.4 (9.4-12.4) fL Immature Gran % (Auto) 0.0 (0.0-0.4) % Neut % (Auto) 56.0 (45-73) % Lymph % (Auto) 28.8 (20-40) % [place] % (Auto) 7.6 (2-11) % Eos % (Auto) 7.0 H (0-4) % Baso % (Auto) 0.6 (0-2) % Lymph # (Auto) 0.9 L (1.2-4.9) X10*3/uL [place] # (Auto) 0.2 (0.1-1.2) X10*3/uL Eos # (Auto) 0.2 (0.0-0.4) X10*3/uL Baso # (Auto) 0.0 (0.0-0.2) X10*3/uL Abs Immat Gran (auto) 0.00 (0.00-0.03) X10*3/uL Absolute Neuts (auto) 1.8 L (2.0-8.3) X10*3/uL Absolute Nucleated RBC 0.000 (0.0-0.012) X10*3/uL Nucleated RBC % (auto) 0.0 (0.0-0.2) /100WBC Hold Blue Top Lactic Acid (0.5-2.0) mmol/L Ammonia (13-55) umol/L ECG Data Attestation: I personally reviewed and interpreted this ECG as follows: ECG interpretation date: 12/10/20 ECG interpretation time: 07:23 Interpretation: Rate: 74 Rhythm: NSR [place]: left Normal P waves. Normal VASHTI. Normal QRS complex. ST T wave : normal, no SALOMÓN qTC: prolonged prior studies: no acute ischemia The study has been interpreted contemporaneously by me. . Discharge Plan Discharge Clinical Impression: Acidosis, lactic, Acute hepatic encephalopathy Patient Disposition: Admitted As Inpatient
--- NOTE | 2020-12-10 07:30 | PC.NURSE ---
pt seen by provider, dr marita fuentes pt. pt appears to be at baseline orientation, appears lethargic and resistant to participation in exam, but pt is passive. incontinence brief removed, appears clean. labs drawn and sent, iv established, placed on tele, ekg completed, wctm.
[2020-12-10 07:31] LABS: MANUAL DIFF FLAG NO
[2020-12-10 07:32] LABS: Basophils Percent Auto 0.6 % (0-2); Eosinophils Absolute Auto 0.2 X10*3/uL (0.0-0.4); Hemoglobin 8.8 g/dl (14.0-18.0); Lymphocytes Absolute Auto 0.9 X10*3/uL (1.2-4.9); Lymphocytes Percent Auto 28.8 % (20-40); Mean Corpuscular HGB Conc 35.2 g/dl (31.0-36.0); Mean Corpuscular Volume 90.9 fL (80-98); Mean Platelet Volume 11.4 fL (9.4-12.4); Monocytes Absolute Auto 0.2 X10*3/uL (0.1-1.2); Monocytes Percent Auto 7.6 % (2-11); Neutrophils Absolute Auto 1.8 X10*3/uL (2.0-8.3); Red Blood Count 2.75 X10*6/uL (4.60-5.80); Red Cell Distribution Width 14.1 % (11.0-16.0); White Blood Count 3.2 X10*3/uL (4.8-10.8)
[2020-12-10 07:43] LABS: Platelet Count 47 X10*3/uL (160-400)
[2020-12-10 07:54] LABS: Lactic Acid 2.4 mmol/L (0.5-2.0)
[2020-12-10 07:56] LABS: Ammonia 123 umol/L (13-55)
[2020-12-10 08:03] LABS: Troponin-I High Sensitivity 10.1 ng/L (<3.5-35.0)
[2020-12-10 08:09] LABS: Glucose Urine UA NEG (NEG); Leukocyte Esterase Urine NEG (NEG); Nitrite Urine NEG (NEG); Specific Gravity - Urine 1.015 (1.005-1.025); Urine Blood TRACE (NEG); Urine Ketones NEG (NEG); Urine Protein TRACE MG/DL (NEG-TRACE)
[2020-12-10 08:10] LABS: Lipase 6 U/L (8-78)
[2020-12-10 08:11] LABS: Appearance Urine CLEAR; Color Urine YELLOW
[2020-12-10 08:19] LABS: Squamous Epithelial Cell Urine TRACE /LPF; WBC Urine 0 /HPF (0-4)
[2020-12-10] MEDS: Lactulose 20 GM/30 ML SOLUTION 30 GM PO (08:23)
[2020-12-10] MEDS: 0.9 % Sodium Chloride 500 ML IV (08:24)
[2020-12-10 08:25] LABS: Alanine Aminotransferase 23 U/L (0-40); Alkaline Phosphatase 83 U/L (39-117); Anion Gap 11 (12-20); Aspartate Amino Transferase 21 U/L (5-37); Bilirubin Direct 0.5 mg/dL (0.0-0.5); Bilirubin Total 1.2 mg/dL (0.0-1.0); Blood Urea Nitrogen 16 mg/dL (9-16); Calcium 7.9 mg/dL (8.4-10.2); Carbon Dioxide 22 mmol/L (22-29); Chloride 113 mmol/L (96-108); Estimated Glomerular Filt Rate > 60; Glucose Random 73 mg/dL (60-115); Potassium 3.7 mmol/l (3.3-5.1); Sodium 142 mmol/L (135-145); Total Protein 5.8 g/dL (6.5-8.0)
--- NOTE | 2020-12-10 08:28 | PC.NURSE ---
pt resistant to medication administration, able to take with some encouragement. pt sts i just want to get in, and out of here . pt now pulling off tele monitor, sts i do not want these on .
[2020-12-10 08:53] VITALS: BP 180/73; PULSE 72; RESP 20; O2SAT 99
[2020-12-10 09:07] LABS: COVID-19 Test Negative (Negative)
--- NOTE | 2020-12-10 09:16 | PC.NURSE ---
this rn alerted to pt attempting to get out of bed, pt asking to use restroom. assisted to restroom using wheelchair. pt back to bed w/o incident. pt given call [facility] educated to ask staff for assistance when getting up. plan for inpt adimssion
[2020-12-10 09:29] LABS: Reflex Lactate? Lactic Acid Added
[2020-12-10 10:15] LABS: ~Lactic Acid-LAB USE ONLY 2.3 mmol/L (0.5-2.0)
--- NOTE | 2020-12-10 10:39 | PC.NURSE ---
seen by hospitalist at bedside
[2020-12-10 11:24] VITALS: BP 183/71; PULSE 71; RESP 20; TEMP 36.7; O2SAT 100
[2020-12-10 11:46] LABS: Reflex Lactate? 2 Y
--- NOTE | 2020-12-10 12:12 | PC.NURSE ---
Pt removed own IV, I dont like these needles . Dressing applied. Will re attempt to obtain IV access.
[2020-12-10 12:39] LABS: ~Lactic Acid-LAB USE ONLY 2.2 mmol/L (0.5-2.0)
[2020-12-10] MEDS: Carbidopa/Levodopa 25/100 TABLET 1 TAB PO ×3 (14:12→21:16)
[2020-12-10] MEDS: Lactulose 20 GM/30 ML SOLUTION 40 GM PO ×2 (14:58→21:16)
[2020-12-10] MEDS: 0.9 % Sodium Chloride Flush 3 ML SYRINGE IVFLUSH ×2 (14:58→23:52)
[2020-12-10 16:00] VITALS: BP 183/87; PULSE 83; RESP 16; TEMP 36.5; O2SAT 96
[2020-12-10] MEDS: metFORMIN HCl 1,000 MG TABLET 1000 MG PO (16:29)
[2020-12-10] MEDS: diazePAM 2 MG TABLET PO (16:29)
--- NOTE | 2020-12-10 16:31 | PM.IMHP ---
History of Present Illness Date of Service: 12/10/20 Chief Complaint: confusion lethargic 60-year-old male presented from [facility] with worsening lethargy and confusion, as per [facility] patient was more sleepy, in the ER found to have elevated ammonia level was 123, patient has known history of cirrhosis, recently discharged from [facility] after being treated for hepatic encephalopathy, patient was seen and examined at bedside, patient was still confused and sleepy, received 1 dose of lactulose, labs shows elevated lactic acid, and inpatient admission was requested. Review of Systems Review of Systems: Yes Unobtainable due to mental status Neurologic: Reports confusion Psychiatric: Psychiatric: Reports confusion [facility] Medical History Ataxia Dementia Diabetes Drug abuse, cocaine type Essential tremor ETOH abuse Orthostatic hypotension Parkinson disease Schizophrenia Family History (Updated 12/10/20 @ 17:41 by Ayaan Fang MD) Other Hypertension Social History Household Members: None Housing: [facility] Housing Other:: [facility] Do you presently have visiting nurse or other home services: No Alcohol intake: never Smoking Status: Light tobacco smoker Tobacco Type: Cigarette Cigarettes Per Day: 1 Smoked in Last 30 Days: No Patient Interested in Nicotine Replacement: No Second Hand Smoke Exposure: No Use of substances other than those prescribed or required for medical reasons: No Have you been hit, kicked, punched, or otherwise hurt by someone within the past year? If so, by whom?: No Do you feel safe in your current relationship?: Yes Is there a partner from a previous relationship who is making you feel unsafe now?: No Are you made to feel afraid or neglected: No Advance Directives: No (MEDICAL REASON) Advance Directives Information Provided: No Recently lost weight without trying: Unsure service: Yes ([employer]) Current occupational status: disabled Meds Allergies Allergy/AdvReac Type Severity Reaction Status Date / Time POLLEN/RAGWEED Allergy Unknown UNKNOWN Uncoded 11/18/20 12:00 Home Medications Medication Instructions Recorded Confirmed Type Lotrimin AF 1 spray TOPICAL BID PRN 11/18/20 12/10/20 History aspirin 81 mg PO DAILY 11/18/20 12/10/20 History benztropine 1 mg PO BID 11/18/20 12/10/20 History betamethasone, augmented 1 appl TOPICAL BID 11/18/20 12/10/20 History carbidopa-levodopa [Sinemet] 1 tab PO QID 11/18/20 12/10/20 History diazepam 1 mg PO BID 11/18/20 12/10/20 History fluphenazine decanoate 50 mg SUBCUT Q14D 11/18/20 12/10/20 History gabapentin 900 mg PO TID 11/18/20 12/10/20 History loratadine 10 mg PO DAILY 11/18/20 12/10/20 History metformin 1,000 mg PO BIDWM 11/18/20 12/10/20 History pregabalin [Lyrica] 75 mg PO BID 11/18/20 12/10/20 History tramadol 50 mg PO BID 11/18/20 12/10/20 History docusate sodium 100 mg PO DAILY PRN 12/10/20 12/10/20 History insulin detemir U-100 [Levemir 25 unit SUBCUT BID 12/10/20 12/10/20 History FlexTouch U-100 Insuln] lactulose 20 g PO DAILY 12/10/20 12/10/20 History lactulose 60 ml PO BID 12/10/20 12/10/20 History lisinopril 1 tab PO DAILY 12/10/20 12/10/20 History midodrine 5 mg PO DAILY 12/10/20 12/10/20 History nicotine 1 patch TRANSDERMAL DAILY 12/10/20 12/10/20 History sennosides [senna] 8.6 mg PO DAILY PRN 12/10/20 12/10/20 History ziprasidone HCl 20 mg PO DAILY@1800 12/10/20 12/10/20 History Physical Exam Vital Signs and Narrative: Vital Signs: Last Vital Signs Temp 98.0 F 12/10/20 11:24 Pulse 71 12/10/20 11:24 Resp 20 12/10/20 11:24 BP 183/71 H 12/10/20 11:24 Pulse Ox 100 12/10/20 11:24 Body Mass Index 29.5 Const: General: confusion and lethargic Orientation/consciousness: confusion and lethargic Resp: Auscultation: no rales and no rhonchi Cardio: Jugular venous distension: JVD present Rhythm: regular rhythm Heart sounds: S1 normal heart sound present GI: Inspection: Yes normal to inspection Auscultation: normal bowel sounds Skin: General skin exam: no rashes or lesions noted Neuro: General: confusion Motor exam (neuro): 5/5 motor strength present throughout Results Labs CBC and Chem 7: 12/10/20 07:25 12/10/20 07:25 Labs: Laboratory Results - last 24 hr 12/10/20 12/10/20 12/10/20 07:23 07:24 07:24 MCV MCH MCHC RDW Plt Count MPV Immature Gran % (Auto) Neut % (Auto) Lymph % (Auto) [place] % (Auto) Eos % (Auto) Baso % (Auto) Lymph # (Auto) [place] # (Auto) Eos # (Auto) Baso # (Auto) Abs Immat Gran (auto) Absolute Neuts (auto) Absolute Nucleated RBC Nucleated RBC % (auto) Hold Blue Top SEE NOTE Anion Gap Estim Creat Clear Calc Estimated GFR Random Glucose Lactic Acid Lactic Acid Fup @ 2Hr Lactic Acid Fup @ 4Hr Calcium Magnesium Total Bilirubin Direct Bilirubin AST ALT Alkaline Phosphatase Ammonia 123 H Troponin I High Sens Total Protein Albumin Lipase 6 L Urine Color Urine Appearance Urine pH Ur Specific [place] Urine Protein Urine Glucose (UA) Urine Ketones Urine Blood Urine Nitrite Ur Leukocyte Esterase Urine RBC Urine WBC Ur Squamous Epith Cells Urine Bacteria COVID-19 (JAS) COVID-19 Clin Com 12/10/20 12/10/20 12/10/20 07:24 07:24 07:25 MCV 90.9 MCH 32.0 MCHC 35.2 RDW 14.1 Plt Count 47 L D MPV 11.4 Immature Gran % (Auto) 0.0 Neut % (Auto) 56.0 Lymph % (Auto) 28.8 [place] % (Auto) 7.6 Eos % (Auto) 7.0 H Baso % (Auto) 0.6 Lymph # (Auto) 0.9 L [place] # (Auto) 0.2 Eos # (Auto) 0.2 Baso # (Auto) 0.0 Abs Immat Gran (auto) 0.00 Absolute Neuts (auto) 1.8 L Absolute Nucleated RBC 0.000 Nucleated RBC % (auto) 0.0 Hold Blue Top Anion Gap Estim Creat Clear Calc Estimated GFR Random Glucose Lactic Acid 2.4 H* Lactic Acid Fup @ 2Hr Lactic Acid Fup @ 4Hr Calcium Magnesium Total Bilirubin Direct Bilirubin AST ALT Alkaline Phosphatase Ammonia Troponin I High Sens 10.1 Total Protein Albumin Lipase Urine Color Urine Appearance Urine pH Ur Specific [place] Urine Protein Urine Glucose (UA) Urine Ketones Urine Blood Urine Nitrite Ur Leukocyte Esterase Urine RBC Urine WBC Ur Squamous Epith Cells Urine Bacteria COVID-19 (JAS) COVID-19 Clin Com 12/10/20 12/10/20 12/10/20 07:25 07:49 08:34 MCV MCH MCHC RDW Plt Count MPV Immature Gran % (Auto) Neut % (Auto) Lymph % (Auto) [place] % (Auto) Eos % (Auto) Baso % (Auto) Lymph # (Auto) [place] # (Auto) Eos # (Auto) Baso # (Auto) Abs Immat Gran (auto) Absolute Neuts (auto) Absolute Nucleated RBC Nucleated RBC % (auto) Hold Blue Top Anion Gap 11 L Estim Creat Clear Calc 116.0 Estimated GFR > 60 Random Glucose 73 Lactic Acid Lactic Acid Fup @ 2Hr Lactic Acid Fup @ 4Hr Calcium 7.9 L Magnesium 2.0 Total Bilirubin 1.2 H Direct Bilirubin 0.5 AST 21 ALT 23 Alkaline Phosphatase 83 D Ammonia Troponin I High Sens Total Protein 5.8 L Albumin 3.0 L Lipase Urine Color YELLOW Urine Appearance CLEAR Urine pH 7.0 Ur Specific [place] 1.015 Urine Protein TRACE Urine Glucose (UA) NEG Urine Ketones NEG Urine Blood TRACE Urine Nitrite NEG Ur Leukocyte Esterase NEG Urine RBC 10-14 H Urine WBC 0 Ur Squamous Epith Cells TRACE Urine Bacteria NONE COVID-19 (JAS) Negative COVID-19 Clin Com See Note 12/10/20 12/10/20 09:40 12:09 MCV MCH MCHC RDW Plt Count MPV Immature Gran % (Auto) Neut % (Auto) Lymph % (Auto) [place] % (Auto) Eos % (Auto) Baso % (Auto) Lymph # (Auto) [place] # (Auto) Eos # (Auto) Baso # (Auto) Abs Immat Gran (auto) Absolute Neuts (auto) Absolute Nucleated RBC Nucleated RBC % (auto) Hold Blue Top Anion Gap Estim Creat Clear Calc Estimated GFR Random Glucose Lactic Acid Lactic Acid Fup @ 2Hr 2.3 H* Lactic Acid Fup @ 4Hr 2.2 H* Calcium Magnesium Total Bilirubin Direct Bilirubin AST ALT Alkaline Phosphatase Ammonia Troponin I High Sens Total Protein Albumin Lipase Urine Color Urine Appearance Urine pH Ur Specific [place] Urine Protein Urine Glucose (UA) Urine Ketones Urine Blood Urine Nitrite Ur Leukocyte Esterase Urine RBC Urine WBC Ur Squamous Epith Cells Urine Bacteria COVID-19 (JAS) COVID-19 Clin Com Imaging Radiologist's Impressions: Impressions Chest X-Ray 12/10/20 07:10 IMPRESSION: No dense consolidation. Bronchial wall thickening can be seen with a small airways process such as asthma or atypical/viral infection. This is fairly similar to prior. Assessment and Plan (1) Acute hepatic encephalopathy: Status: Acute (2) Acidosis, lactic: Status: Acute (3) Parkinson disease: Status: Acute (4) Dementia: Status: Acute (5) Ataxia: Status: Acute (6) Schizophrenia: Status: Acute 60-year-old male recently treated for hepatic encephalopathy , presented with worsening confusion and lethargic found to have elevated ammonia level 123 on admission received 1 dose of lactulose and inpatient admission was requested Hepatic encephalopathy likely secondary to noncompliance with underlying cirrhosis continue lactulose history of schizophrenia continue Ziprasidone continue diazepam, benztropine continue Sinemet DVT prophylaxis Venodyne given thrombocytopenia
--- NOTE | 2020-12-10 16:49 | PC.NURSE ---
1600- Pt very confused, very hard to redirect. Pt used commode and then was unable to be redirected to bed. Ambulating in hallway x2 assist. Wheelchair obtained, pt assisted to chair. Refusing to go to room. Adamant about leaving. Security called to assist pt back to room. Dr. Fang made aware. Valium BID ordered. Given to pt per EMAR. Telesitter in place, bed alarm on, 3 side railings up. 1700- Pt sitting up in bed watching TV. Still asking when leaving. No other complaints at this time. Alarms in place.
--- NOTE | 2020-12-10 17:00 | PC.NURSE ---
Pt BP 183/87, pulse 83. Dr. Fang made aware. No new orders at this time.
[2020-12-10] MEDS: Ziprasidone 20 MG CAPSULE PO (17:13)
[2020-12-10] MEDS: Benztropine Mesylate 1 MG TABLET PO (21:16)
[2020-12-10 23:20] VITALS: BP 180/70; PULSE 93; RESP 16; TEMP 37.2; O2SAT 99
[2020-12-11] MEDS: LORazepam 2 MG/ML VIAL 1 MG IVPUSH ×3 (01:06→12:52)
[2020-12-11 06:52] VITALS: PULSE 100; RESP 18; TEMP 37.2; O2SAT 93
[2020-12-11 07:17] VITALS: BP 196/70
[2020-12-11] MEDS: Benztropine Mesylate 1 MG TABLET PO (07:45)
[2020-12-11] MEDS: metFORMIN HCl 1,000 MG TABLET 1000 MG PO (07:45)
[2020-12-11] MEDS: Loratadine 10 MG TABLET PO (07:45)
[2020-12-11] MEDS: diazePAM 2 MG TABLET PO (07:45)
[2020-12-11] MEDS: Carbidopa/Levodopa 25/100 TABLET 1 TAB PO ×2 (07:45→12:52)
[2020-12-11] MEDS: Aspirin Enteric Coated 81 MG TABLET.DR PO (07:45)
[2020-12-11] MEDS: Nicotine 14 MG PATCH.TD24 TRANSDERMA (07:46)
[2020-12-11] MEDS: Lactulose 20 GM/30 ML SOLUTION 40 GM PO (07:46)
[2020-12-11] MEDS: 0.9 % Sodium Chloride Flush 3 ML SYRINGE IVFLUSH (07:46)
[2020-12-11 08:40] LABS: Ammonia 54 umol/L (13-55)
[2020-12-11 09:29] LABS: Anion Gap 13 (12-20); Blood Urea Nitrogen 15 mg/dL (9-16); Calcium 8.1 mg/dL (8.4-10.2); Carbon Dioxide 22 mmol/L (22-29); Chloride 111 mmol/L (96-108); Creatinine Clr Calc Pharmacy 107.7; Estimated Glomerular Filt Rate > 60; Glucose Random 133 mg/dL (60-115); Potassium 3.5 mmol/l (3.3-5.1); Sodium 142 mmol/L (135-145)
[2020-12-11] MEDS: LORazepam 2 MG/ML VIAL 0.5 MG IVPUSH (10:54)
[2020-12-11 11:09] VITALS: BP 188/78; PULSE 88
[2020-12-11] MEDS: amLODIPine Besylate 2.5 MG TABLET 7.5 MG PO (11:09)
--- NOTE | 2020-12-11 13:01 | PC.NURSE ---
1033- Pt uncooperative, resistive to care, very hard to redirect. Pt constantly trying to get up, very shaky and unsteady on feet x2 assist. Safety at risk. Dr. Fang made aware. Ordered 0.5mg IV ativan for patients safety and help participate in care. Ativan given at 1054. Pt rested for about 10 minutes, before trying to stand up. Unsafe for patient to be getting up at this time. 1245- Pt continously needs redirecting. Dr. Sagastume at bedside. 1mg IV Ativan ordered. 1313- Pt sitting in chair, no complaints. Telesitter in place, 1:1 sitter, call alcala, chair alarm in place.
--- NOTE | 2020-12-11 13:11 | PM.DS ---
DS: Providers Provider Date of Service: 12/20/20 Date of admission: 12/10/20 13:08 Primary care physician: Unknown Physician DS: Diagnosis Discharge Diagnosis (1) Acute hepatic encephalopathy: Status: Resolved (2) Acidosis, lactic: Status: Resolved (3) Parkinson disease: Status: Acute (4) Dementia: Status: Acute (5) Ataxia: Status: Acute (6) Schizophrenia: Status: Acute DS: Medications Discharge Medications Home Medications: Home Medications Medication Instructions Recorded Confirmed Lotrimin AF 1 spray TOPICAL BID PRN 11/18/20 12/10/20 aspirin 81 mg PO DAILY 11/18/20 12/10/20 benztropine 1 mg PO BID 11/18/20 12/10/20 betamethasone, augmented 1 appl TOPICAL BID 11/18/20 12/10/20 carbidopa-levodopa [Sinemet] 1 tab PO QID 11/18/20 12/10/20 diazepam 1 mg PO BID 11/18/20 12/10/20 fluphenazine decanoate 50 mg SUBCUT Q14D 11/18/20 12/10/20 gabapentin 900 mg PO TID 11/18/20 12/10/20 loratadine 10 mg PO DAILY 11/18/20 12/10/20 metformin 1,000 mg PO BIDWM 11/18/20 12/10/20 pregabalin [Lyrica] 75 mg PO BID 11/18/20 12/10/20 tramadol 50 mg PO BID 11/18/20 12/10/20 Levemir FlexTouch U-100 Insuln 25 unit SUBCUT BID 12/10/20 12/10/20 docusate sodium 100 mg PO DAILY PRN 12/10/20 12/10/20 lactulose 60 ml PO BID 12/10/20 12/10/20 lisinopril 1 tab PO DAILY 12/10/20 12/10/20 nicotine 1 patch TRANSDERMAL DAILY 12/10/20 12/10/20 sennosides [senna] 8.6 mg PO DAILY PRN 12/10/20 12/10/20 ziprasidone HCl 20 mg PO DAILY@1800 12/10/20 12/10/20 DS: Summary Hospital Course Hospital Course: HPI 60-year-old male [facility] with worsening lethargy and confusion, as per [facility] patient was more sleepy, in the ER found to have elevated ammonia level was 123, patient has known history of cirrhosis, recently discharged from [facility] after being treated for hepatic encephalopathy, patient was seen and examined at bedside, patient was still confused and sleepy, received 1 dose of lactulose, labs shows elevated lactic acid, and inpatient admission was requested. Hospital course 60-year-old female admitted with hepatic encephalopathy with underlying cirrhosis patient was started on lactulose, ammonia level was 123 on admission, patient's mental status improved, patient was more awake and alert, ammonia level trended down to 54, hepatic encephalopathy was resolved, patient's blood pressure was on the higher side, patient was given extra dose of amlodipine, blood pressure improved, patient also has small episode of nose bleed and resolved, patient was little agitated patient was given Ativan with some improvement, patient was stable discharged back to facility, lactulose dose was changed to 40 mg t.i.d. on discharge Time Spent with Patient Time attestation: Total time spent providing and/or coordinating discharge services: Discharge coordination time: Greater than 30 minutes Physical Exam Vital Signs: Vital Signs: Last Vital Signs Temp 99 F 12/11/20 06:52 Pulse 88 12/11/20 11:09 Resp 18 12/11/20 06:52 BP 188/78 H 12/11/20 11:09 Pulse Ox 93 12/11/20 06:52 Body Mass Index 29.5 DS: Data Data Completed and Pending Labs on day of discharge: Laboratory Tests 12/10/20 12/10/20 12/10/20 07:23 07:24 07:24 WBC RBC Hgb Hct MCV MCH MCHC RDW Plt Count MPV Immature Gran % (Auto) Neut % (Auto) Lymph % (Auto) [place] % (Auto) Eos % (Auto) Baso % (Auto) Lymph # (Auto) [place] # (Auto) Eos # (Auto) Baso # (Auto) Abs Immat Gran (auto) Absolute Neuts (auto) Absolute Nucleated RBC Nucleated RBC % (auto) Hold Blue Top SEE NOTE Sodium Potassium Chloride Carbon Dioxide Anion Gap BUN Creatinine Estim Creat Clear Calc Estimated GFR Random Glucose Lactic Acid Lactic Acid Fup @ 2Hr Lactic Acid Fup @ 4Hr Calcium Magnesium Total Bilirubin Direct Bilirubin AST ALT Alkaline Phosphatase Ammonia 123 H Troponin I High Sens Total Protein Albumin Lipase 6 L Urine Color Urine Appearance Urine pH Ur Specific [place] Urine Protein Urine Glucose (UA) Urine Ketones Urine Blood Urine Nitrite Ur Leukocyte Esterase Urine RBC Urine WBC Ur Squamous Epith Cells Urine Bacteria COVID-19 (JAS) COVID-19 [place] Com 12/10/20 12/10/20 12/10/20 07:24 07:24 07:25 WBC 3.2 L RBC 2.75 L Hgb 8.8 L Hct 25.0 L MCV 90.9 MCH 32.0 MCHC 35.2 RDW 14.1 Plt Count 47 L D MPV 11.4 Immature Gran % (Auto) 0.0 Neut % (Auto) 56.0 Lymph % (Auto) 28.8 [place] % (Auto) 7.6 Eos % (Auto) 7.0 H Baso % (Auto) 0.6 Lymph # (Auto) 0.9 L [place] # (Auto) 0.2 Eos # (Auto) 0.2 Baso # (Auto) 0.0 Abs Immat Gran (auto) 0.00 Absolute Neuts (auto) 1.8 L Absolute Nucleated RBC 0.000 Nucleated RBC % (auto) 0.0 Hold Blue Top Sodium Potassium Chloride Carbon Dioxide Anion Gap BUN Creatinine Estim Creat Clear Calc Estimated GFR Random Glucose Lactic Acid 2.4 H* Lactic Acid Fup @ 2Hr Lactic Acid Fup @ 4Hr Calcium Magnesium Total Bilirubin Direct Bilirubin AST ALT Alkaline Phosphatase Ammonia Troponin I High Sens 10.1 Total Protein Albumin Lipase Urine Color Urine Appearance Urine pH Ur Specific [place] Urine Protein Urine Glucose (UA) Urine Ketones Urine Blood Urine Nitrite Ur Leukocyte Esterase Urine RBC Urine WBC Ur Squamous Epith Cells Urine Bacteria COVID-19 (JAS) COVID-19 Clin Com 12/10/20 12/10/20 12/10/20 07:25 07:49 08:34 WBC RBC Hgb Hct MCV MCH MCHC RDW Plt Count MPV Immature Gran % (Auto) Neut % (Auto) Lymph % (Auto) [place] % (Auto) Eos % (Auto) Baso % (Auto) Lymph # (Auto) [place] # (Auto) Eos # (Auto) Baso # (Auto) Abs Immat Gran (auto) Absolute Neuts (auto) Absolute Nucleated RBC Nucleated RBC % (auto) Hold Blue Top Sodium 142 Potassium 3.7 Chloride 113 H Carbon Dioxide 22 Anion Gap 11 L BUN 16 Creatinine 0.78 Estim Creat Clear Calc 116.0 Estimated GFR > 60 Random Glucose 73 Lactic Acid Lactic Acid Fup @ 2Hr Lactic Acid Fup @ 4Hr Calcium 7.9 L Magnesium 2.0 Total Bilirubin 1.2 H Direct Bilirubin 0.5 AST 21 ALT 23 Alkaline Phosphatase 83 D Ammonia Troponin I High Sens Total Protein 5.8 L Albumin 3.0 L Lipase Urine Color YELLOW Urine Appearance CLEAR Urine pH 7.0 Ur Specific [place] 1.015 Urine Protein TRACE Urine Glucose (UA) NEG Urine Ketones NEG Urine Blood TRACE Urine Nitrite NEG Ur Leukocyte Esterase NEG Urine RBC 10-14 H Urine WBC 0 Ur Squamous Epith Cells TRACE Urine Bacteria NONE COVID-19 (JAS) Negative COVID-19 Clin Com See Note 12/10/20 12/10/20 12/11/20 09:40 12:09 07:58 WBC RBC Hgb Hct MCV MCH MCHC RDW Plt Count MPV Immature Gran % (Auto) Neut % (Auto) Lymph % (Auto) [place] % (Auto) Eos % (Auto) Baso % (Auto) Lymph # (Auto) [place] # (Auto) Eos # (Auto) Baso # (Auto) Abs Immat Gran (auto) Absolute Neuts (auto) Absolute Nucleated RBC Nucleated RBC % (auto) Hold Blue Top Sodium Potassium Chloride Carbon Dioxide Anion Gap BUN Creatinine Estim Creat Clear Calc Estimated GFR Random Glucose Lactic Acid Lactic Acid Fup @ 2Hr 2.3 H* Lactic Acid Fup @ 4Hr 2.2 H* Calcium Magnesium Total Bilirubin Direct Bilirubin AST ALT Alkaline Phosphatase Ammonia 54 Troponin I High Sens Total Protein Albumin Lipase Urine Color Urine Appearance Urine pH Ur Specific [place] Urine Protein Urine Glucose (UA) Urine Ketones Urine Blood Urine Nitrite Ur Leukocyte Esterase Urine RBC Urine WBC Ur Squamous Epith Cells Urine Bacteria COVID-19 (JAS) COVID-19 Clin Com 12/11/20 Unknown WBC RBC Hgb Hct MCV MCH MCHC RDW Plt Count MPV Immature Gran % (Auto) Neut % (Auto) Lymph % (Auto) [place] % (Auto) Eos % (Auto) Baso % (Auto) Lymph # (Auto) [place] # (Auto) Eos # (Auto) Baso # (Auto) Abs Immat Gran (auto) Absolute Neuts (auto) Absolute Nucleated RBC Nucleated RBC % (auto) Hold Blue Top Sodium 142 Potassium 3.5 Chloride 111 H Carbon Dioxide 22 Anion Gap 13 BUN 15 Creatinine 0.84 Estim Creat Clear Calc 107.7 Estimated GFR > 60 Random Glucose 133 H D Lactic Acid Lactic Acid Fup @ 2Hr Lactic Acid Fup @ 4Hr Calcium 8.1 L Magnesium Total Bilirubin Direct Bilirubin AST ALT Alkaline Phosphatase Ammonia Troponin I High Sens Total Protein Albumin Lipase Urine Color Urine Appearance Urine pH Ur Specific [place] Urine Protein Urine Glucose (UA) Urine Ketones Urine Blood Urine Nitrite Ur Leukocyte Esterase Urine RBC Urine WBC Ur Squamous Epith Cells Urine Bacteria COVID-19 (JAS) COVID-19 Clin Com Discharge Plan Discharge Anticipated Discharge Date/Time: 12/11/20 10:26 Patient Disposition: er [facility] Referrals: [facility] [Outside] Physician,Unknown [Primary Care Provider] - Discharge Medications: New lactulose 20 gram/30 mL Solution 40 g PO TID Qty: 300 RF: 0 Continued docusate sodium 100 mg Tablet 100 mg PO DAILY PRN (Reason: Constipation) RF: 0 betamethasone, augmented 0.05 % Cream 1 appl TOPICAL BID RF: 0 aspirin 81 mg Tablet,Delayed Release (Dr/Ec) 81 mg PO DAILY RF: 0 tramadol 50 mg Tablet 50 mg PO BID RF: 0 Lotrimin AF 2 % Aerosol,[place] 1 spray TOPICAL BID PRN (Reason: fungal infection) RF: 0 fluphenazine decanoate 25 mg/mL Solution 50 mg SUBCUT Q14D RF: 0 diazepam 2 mg Tablet 1 mg PO BID RF: 0 metformin 1,000 mg Tablet 1,000 mg PO BIDWM RF: 0 benztropine 1 mg Tablet 1 mg PO BID RF: 0 gabapentin 300 mg Capsule 900 mg PO TID RF: 0 carbidopa-levodopa [Sinemet] 25-100 mg Tablet 1 tab PO QID RF: 0 loratadine 10 mg Tablet 10 mg PO DAILY RF: 0 pregabalin [Lyrica] 75 mg Capsule 75 mg PO BID RF: 0 sennosides [senna] 8.6 mg Tablet 8.6 mg PO DAILY PRN (Reason: Constipation) RF: 0 nicotine 14 mg/24 hr Patch 24 Hour 1 patch TRANSDERMAL DAILY RF: 0 ziprasidone HCl 20 mg capsule 20 mg PO DAILY@1800 RF: 0 lisinopril 10 mg tablet 1 tab PO DAILY RF: 0 Levemir FlexTouch U-100 Insuln 100 unit/mL (3 mL) insulin pen 25 unit subcut BID RF: 0 Discontinued midodrine 5 mg Tablet 5 mg PO DAILY RF: 0 lactulose 10 gram/15 mL solution 60 ml PO BID RF: 0 lactulose 20 gram/30 mL solution 20 g PO DAILY RF: 0 Discharge Orders: Discharge Order (Routine); Ordered 12/11/20 Ordered By: Ayaan Fang Diet: advance to usual diet Activity on Discharge: As tolerated Stand Alone Forms: Patient Portal Discharge page Care Plan Goals: prevent encephalopathy Health Concerns: hepatic encephalopathy Plan of Treatment: po lactulose Discharge Date/Time: 12/11/20 13:50
--- NOTE | 2020-12-11 13:16 | PC.NURSE ---
1030- Pt BP 188/78, pulse 88. Dr. Fang made aware. No new orders. 1045- Pt has bloody nose, constant slow drip. Nose bleed is intermittent. Dr. Fang notified. Ordered amlodipine for BP. Will continue to monitor. 1220- BP still 182/72, pulse 88. Dr. Fang notified. No new orders.
[2020-12-11 13:26] VITALS: BP 182/72; PULSE 88
--- NOTE | 2020-12-11 14:16 | MHC.CM.PN ---
CM contacted pts guardian, Tanesha Pruitt from the [facility] [employer] office in [place]. Pts IMM was reviewed with her and she asked that it be left at pts bed side. 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
== END 2020-12-11 13:50 | DRG 442 ==
LOC: HO.ED 08:03 → HO.EDOVER 13:15 → HO.S3 13:26
PROVIDERS: Admitting Provider Internal Medicine; Emergency Provider Emergency Medicine; Visit Provider Internal Medicine
DX: K72.00 Acute and subacute hepatic failure without coma (principal); E87.2 Acidosis; G20 Parkinson's disease; F02.80 Dementia in other diseases classified elsewhere, unspecified severity, without behavioral disturbance, psychotic disturbance, mood disturbance, and anxiety; K74.60 Unspecified cirrhosis of liver; F20.9 Schizophrenia, unspecified; F17.210 Nicotine dependence, cigarettes, uncomplicated; Z20.822 Contact with and (suspected) exposure to COVID-19; Z91.14 Patient's other noncompliance with medication regimen; Z71.6 Tobacco abuse counseling; Z79.82 Long term (current) use of aspirin; Z79.84 Long term (current) use of oral hypoglycemic drugs; Z79.891 Long term (current) use of opiate analgesic; Z79.899 Other long term (current) drug therapy
CPT/HCPCS: 36415; 71045; 80048; 80076; 81001; 81003; 82140; 83605; 83690; 83735; 84484; 85025; 87635; 93005; 96360; 99284; 99285; J2060

== ENCOUNTER → 2022-02-16 20:00 | Outpatient (REF) | payer MEDICARE, MEDICAID, SELFPAY | LOC: HO.SL 20:00 | PROVIDERS: PCP Hospitalist; Visit Provider Hospitalist | DX: G47.33 Obstructive sleep apnea (adult) (pediatric) (principal) | CPT/HCPCS: 95810 ==

== ENCOUNTER 2022-02-19 09:07 | Inpatient (IN) | payer MEDICARE, MEDICAID, SELFPAY ==
--- NOTE | ~2022-02-19 | XR_ITS ---
EXAMINATION: XR CHEST CLINICAL INFORMATION: Check feeding tube placement COMPARISON: Chest radiograph yesterday TECHNIQUE: Frontal view of the chest was obtained. FINDINGS: A number of images are submitted which demonstrate a feeding tube in various positions. One shows a coil in the neck/oropharynx. The final image demonstrates the tip of the feeding tube in the ascending portion of the duodenum just prior to the ligament of Treitz. Again noted is diffuse airspace disease. XR/XR chest 1V IMPRESSION: Final position of feeding tube is postpyloric just before the ligament of Treitz
--- NOTE | ~2022-02-19 | XR_ITS ---
EXAMINATION: XR CHEST CLINICAL INFORMATION: Nasogastric tube placement. COMPARISON: 03/01/2022 chest radiograph at 12:15 AM. TECHNIQUE: Frontal view of the chest was obtained. FINDINGS: Support devices: Enteric tube tip is seen partially visualized overlying the proximal gastric lumen. Bilateral patchy infiltrates are seen predominantly in the right lung base and left mid and lower lung tejeda. The heart and mediastinal structures are unremarkable. XR/XR chest 1V IMPRESSION: 1. Partial visualization of enteric tube tip overlying the proximal gastric lumen. 2. Bilateral patchy infiltrates appear mildly increased with similar distribution.
--- NOTE | ~2022-02-19 | CT_ITS ---
EXAMINATION: CT HEAD WITHOUT CONTRAST CLINICAL INFORMATION: MS changes. COMPARISON: None TECHNIQUE: Contiguous axial imaging was performed from the skull base to vertex without intravenous administration of contrast. This CT examination was performed using dose optimization techniques as appropriate, variously including the following: *Automated exposure control *Adjustment of mA and/or kV according to patient size (this includes techniques or standardized protocols for targeted exams where dose is matched to indication/reason for exam; i.e. extremities or head) *Use of iterative reconstruction technique DLP: 831 mGy-cm FINDINGS: There is no evidence of acute intracranial hemorrhage or territorial infarction. No abnormal mass effect or midline shift is seen. Garcia to white matter differentiation is well preserved. No extra-axial fluid collections are identified. The ventricles are normal in size. There is mild thickening of the right tentorium. There is no abnormal attenuation within the brain parenchyma. There is no calvarial abnormality seen. However there is a posterior parietal scalp soft tissue density. There is complete opacification of left external ear and mild inward bulging of the tympanic membrane. There is soft tissue access in the right external ear. There is mild mucoperiosteal thickening left sphenoid sinus. CT/CT head/brain wo con IMPRESSION: No acute intracranial process seen. Posterior scalp soft tissue swelling. Complete oblique aeration of left external auditory canal from heterogeneous plaques or soft tissue mass. There is soft tissue waxing the right external auditory canal. Minimal left sphenoid sinus inflammatory changes.
--- NOTE | ~2022-02-19 | MR_ITS ---
EXAMINATION: MR BRAIN WITHOUT CONTRAST CLINICAL INFORMATION: Encephalopathy. COMPARISON: CT head from 02/24/2022. TECHNIQUE: MRI of the brain was obtained using routine sequences without contrast. FINDINGS: No focal restricted diffusion is demonstrated to suggest acute or subacute cerebral ischemia. Susceptibility artifact correlating with the previously demonstrated trace right tentorial subdural hematoma. No evidence of new hemorrhagic products on heme-sensitive imaging. Scattered and partially confluent periventricular, deep white matter, and brainstem T2 FLAIR hyperintensities consistent with moderate underlying microangiopathy. Proportional prominence of the ventricles and sulcal spaces without evidence of obstructive hydrocephalus. No abnormal mass effect. No midline shift. Normal appearance of the pituitary gland. Normal positioning of the cerebellar tonsils. Normal arterial and venous vascular flow voids are present. Normal, homogeneous marrow signal. Mild mucosal thickening of the paranasal sinuses. Moderate left-sided mastoid effusion. No signal abnormalities within the right-sided mastoid. MR/MR head/brain wo con IMPRESSION: 1. No acute intracranial abnormalities. 2. Stable trace right tentorial subdural hematoma. No evidence of new hemorrhagic products. 3. Moderate underlying microangiopathy and generalized cerebral volume loss.
--- NOTE | ~2022-02-19 | XR_ITS ---
EXAMINATION: XR ABDOMEN KUB CLINICAL INDICATION: Check NG tube placement COMPARISON: None TECHNIQUE: AP view of the lower chest/upper abdomen. Limited exam due to patient vomiting. FINDINGS: There is a nasogastric tube projects over the proximal stomach. No dilated loops of bowel or free air is seen. Visualized lungs appear clear. Bony structures are unremarkable. XR/XR abdomen 1V IMPRESSION: Nasogastric tube projects over proximal stomach. Limited exam.
--- NOTE | ~2022-02-19 | CT_ITS ---
EXAMINATION: CT HEAD AND CT CHEST WITHOUT CONTRAST CLINICAL INFORMATION: AMS. Hypoxemia COMPARISON: None TECHNIQUE: 5 mm thin axial and reformatted 2 mm thin sagittal and coronal images of brain were obtained. DLP 918. 5 mm thin axial and reformatted 3 mm thin sagittal and coronal images of chest were obtained. FINDINGS: Brain: There is no acute intra-axial, extra-axial bleed, masses, edema or midline shift. There is no acute infarction evolution. The lateral ventricles are symmetrical in size and configuration without enlargement. There is mild periventricular hypodensity in both cerebral hemispheres without mass effect. Bone windows reveal no calvarial abnormality. There is no scalp soft tissue swelling. There is minimal mucoperiosteal thickening right maxillary sinus. Rest of the paranasal sinuses and mastoid air cells are well-aerated. There is catheter tube traversing the right nasal cavity. CHEST: Both lungs are fairly well-expanded with diffuse patchy infiltrates seen involving all segments of both lungs likely related to Covid disease. Does not appear to be aspiration related. There is no pleural effusion or thickening. The thyroid lobes are symmetric and normal. Central trachea and the bronchi widely patent. Heart size and the great vessels are normal caliber. There is no pericardial effusion seen. The axilla is unremarkable. There is bilateral gynecomastia. Imaging through the upper abdomen reveals visualized liver, spleen appear unremarkable. There is an enteric tube with its tip in the stomach. Bone windows reveal no aggressive lytic or sclerotic process. CT/CT head/brain wo con IMPRESSION: No acute intracranial process seen. Multi lobar infiltrates question Covid related disease. Does not appear to be aspiration related. There is an enteric tube with its tip in the stomach. Results were called to patient's ICU nurse by phone at 3:45 PM. The nurse was also informed to call Dr. Myers and a hand over the results.
--- NOTE | ~2022-02-19 | CT_ITS ---
CT head/brain wo con CLINICAL INFORMATION: Reason for Exam fall, poor historian COMPARISON: Prior head CT 01/02/2021 TECHNIQUE: Department standard protocol. This CT examination was performed using dose optimization techniques as appropriate, variously including the following: *Automated exposure control *Adjustment of mA and/or kV according to patient size (this includes techniques or standardized protocols for targeted exams where dose is matched to indication/reason for exam; i.e. extremities or head) *Use of iterative reconstruction technique DLP: 873 mGy-cm FINDINGS: CEREBRAL HEMISPHERES: There is no evidence of intra-axial or extra-axial mass, hemorrhage or acute infarct. BRAIN PARENCHYMA: Deep white matter and paraventricular hypoattenuation, nonspecific; most likely changes secondary to chronic ischemia due to microvascular angiopathy. SUBDURAL SPACE: High attenuation along the right tentorium concerning for subdural bleed. No mass effect. BASAL GANGLIA AND PINEAL GLAND: Unremarkable VENTRICLES: Symmetric and normal in size. CEREBELLUM AND BRAINSTEM: No space-occupying mass, hemorrhage or acute infarct. CEREBELLOPONTINE ANGLES: No lesion found. ORBITS: No intraorbital mass. VESSELS: Unremarkable SKULL BASE: Unremarkable INCLUDED SINUSES AT SKULL BASE: Clear SKULL AND SKIN: No fracture or bone lesion found. CT/CT head/brain wo con IMPRESSION: High attenuation along the right tentorium concerning for intracranial subdural bleed. There is no mass effect. Mild diffuse deep white matter and paraventricular hypoattenuation, nonspecific most likely chronic microvascular angiopathy. (Referring physician staff is being called, to be alerted of the above findings and recommendations.)
--- NOTE | ~2022-02-19 | CT_ITS ---
EXAMINATION: CT ABDOMEN AND PELVIS WITHOUT CONTRAST CLINICAL INFORMATION: Change in mental status, abdominal distention COMPARISON: Abdominal ultrasound 02/21/2022, 01/01/2018 TECHNIQUE: Multidetector volumetric imaging was performed from the superior aspect of the liver through the pubic symphysis. Sagittal and coronal reformatted images were obtained on the technologist's workstation. This CT examination was performed using dose optimization techniques as appropriate, variously including the following: *Automated exposure control *Adjustment of mA and/or kV according to patient size (this includes techniques or standardized protocols for targeted exams where dose is matched to indication/reason for exam; i.e. extremities or head) *Use of iterative reconstruction technique DLP: 1333 mGy-cm FINDINGS: LUNG BASES: Bibasilar atelectasis. ABDOMINAL AND PELVIC WALL: Symmetric gynecomastia. Mild anasarca. LIVER AND BILIARY TREE: Hypoattenuating hepatic parenchyma compatible with hepatic steatosis with focal fatty sparing along the gallbladder fossa. GALLBLADDER: Unremarkable. PANCREAS: Unremarkable. SPLEEN: Spleen is enlarged measuring 14.7 cm in span. ADRENAL GLANDS: Unremarkable. KIDNEYS AND URETERS: Unremarkable. GASTROINTESTINAL TRACT: Enteric tube tip terminates in the gastric body. A rectal tube is coiled in the rectum. Normal appendix. VASCULAR: Unremarkable. LYMPH NODES/PERITONEUM: No lymphadenopathy. FREE FLUID: None. BLADDER: Ybarra catheter in place which only partially decompresses the bladder. PELVIC VISCERA: Unremarkable. OSSEOUS STRUCTURES: Unremarkable. CT/CT abdomen pelvis wo con IMPRESSION: Hepatic steatosis and splenomegaly. No free fluid. Ybarra catheter in place which only partially decompresses the bladder. Mild anasarca. Symmetric gynecomastia.
--- NOTE | ~2022-02-19 | XR_ITS ---
EXAMINATION: XR CHEST CLINICAL INFORMATION: Respiratory distress evaluate for aspiration. Also NG tube placement COMPARISON: Multiple prior imaging examinations including most recent chest x-ray 03/03/2022 TECHNIQUE: Frontal AP upright view of the chest was obtained. FINDINGS: There is persistent diffuse bilateral opacities throughout both lungs unchanged. Calcification of the dorsal aorta. Cardiomediastinal silhouette unchanged. Enteric tube noted overlying the neck and chest extending below the diaphragm with the distal tip is in the region of the ligamentum of Treitz XR/XR chest 1V IMPRESSION: No change in the diffuse bilateral airspace disease Enteric tube tip in region of ligament of Treitz
--- NOTE | ~2022-02-19 | XR_ITS ---
EXAMINATION: XR CHEST CLINICAL INFORMATION: Nasogastric tube placement COMPARISON: 06/09/2021 TECHNIQUE: Frontal view of the chest was obtained. XR/XR chest 1V FINDINGS/IMPRESSION: Nasogastric tube coils within the mid thoracic esophagus, before terminating within the lower cervical esophagus. Normal symmetric lung volumes. No parenchymal consolidation. No pleural effusion. No pneumothorax. Cardiomediastinal silhouette and pulmonary vascularity are within normal limits. No acute osseous abnormalities.
--- NOTE | ~2022-02-19 | XR_ITS ---
EXAMINATION: XR CHEST CLINICAL INFORMATION: Chest pain with question pulmonary edema COMPARISON: Chest radiograph 02/24/[address] chest 02/28/2022 TECHNIQUE: Frontal view of the chest was obtained. FINDINGS: Heart is mildly enlarged. Diffuse multifocal pulmonary infiltrates are seen, new when compared to the prior chest radiograph but were well demonstrated on the CT scan from 3:00 PM 02/28/2022. An NG tube is present with its tip somewhere below the diaphragm. No definite pleural effusions are seen. No pneumothorax. XR/XR chest 1V IMPRESSION: Mild cardiomegaly and diffuse multifocal pulmonary infiltrates.
--- NOTE | ~2022-02-19 | CT_ITS ---
CT head/brain wo con CLINICAL INFORMATION: Reason for Exam subdural hematoma...f/up COMPARISON: Prior CT one day earlier TECHNIQUE: Department standard protocol. This CT examination was performed using dose optimization techniques as appropriate, variously including the following: *Automated exposure control *Adjustment of mA and/or kV according to patient size (this includes techniques or standardized protocols for targeted exams where dose is matched to indication/reason for exam; i.e. extremities or head) *Use of iterative reconstruction technique DLP: 972 mGy-cm FINDINGS: CEREBRAL HEMISPHERES: There is no evidence of intra-axial or extra-axial mass, or acute infarct. BRAIN PARENCHYMA: Deep white matter and paraventricular hypoattenuation, nonspecific; most likely changes secondary to chronic ischemia due to microvascular angiopathy. SUBDURAL SPACE: Redemonstration of hyperdense material along the right tentorium suggesting a small stable subdural hemorrhage. BASAL GANGLIA AND PINEAL GLAND: Unremarkable VENTRICLES: Symmetric and normal in size. CEREBELLUM AND BRAINSTEM: No space-occupying mass, hemorrhage or acute infarct. CEREBELLOPONTINE ANGLES: No lesion found. ORBITS: No intraorbital mass. VESSELS: Unremarkable SKULL BASE: Unremarkable INCLUDED SINUSES AT SKULL BASE: Clear SKULL AND SKIN: No fracture or bone lesion found. CT/CT head/brain wo con IMPRESSION: Stable small right tentorial subdural hemorrhage. Deep white matter and periventricular hypoattenuation, nonspecific; most likely sequela of chronic microvascular angiopathy ischemia.
--- NOTE | ~2022-02-19 | CT_ITS ---
EXAMINATION: CT HEAD WITHOUT CONTRAST CLINICAL INFORMATION: Change in mental status. COMPARISON: CT head from 02/21/2022. TECHNIQUE: Contiguous axial imaging was performed from the skull base to vertex without intravenous administration of contrast. This CT examination was performed using dose optimization techniques as appropriate, variously including the following: *Automated exposure control. *Adjustment of mA and/or kV according to patient size (this includes techniques or standardized protocols for targeted exams where dose is matched to indication/reason for exam; i.e. extremities or head). *Use of iterative reconstruction technique. DLP: 978 mGy-cm FINDINGS: Stable mild hyperattenuating thickening of the right tentorial leaflet suggestive of a trace subdural hematoma. No evidence of new acute intracranial hemorrhage or edematous territorial infarction. Scattered hypoattenuation in the periventricular and deep white matter are consistent with mild to moderate microangiopathy. Small chronic lacunar infarcts of the bilateral lentiform nuclei. Garcia-white matter differentiation is preserved. Proportional prominence of the ventricles and sulcal spaces. No evidence for obstructive hydrocephalus. No abnormal mass effect or midline shift. No extra-axial fluid collections. Calcific atherosclerotic disease of the intracranial internal carotid arteries. No hyperdense vessel sign. Right-sided nasogastric tube in place. Small subgaleal hematoma along the posterior vertex, measuring up to 0.3 cm in depth. No associated osseous abnormalities. Mild mucosal thickening of the paranasal sinuses. Mild rightward nasal septal deviation. Small left-sided mastoid effusion. The right-sided mastoid air cells and middle ear cavities are clear. Impaction of the left greater than right external auditory canals with apparent concentric soft tissue thickening. CT/CT head/brain wo con IMPRESSION: 1. Stable trace right tentorial subdural hematoma. No evidence of new acute intracranial hemorrhage or edematous territorial infarction. 2. Mild to moderate underlying microangiopathy and generalized cerebral volume loss. Chronic lacunar infarcts of the deep nuclei. 3. Impaction of the left greater than right external auditory canal with concentric soft tissue thickening. Recommend correlation with direct visualization. 4. Small posterior scalp hematoma. No associated osseous abnormalities.
--- NOTE | ~2022-02-19 | CT_ITS ---
EXAMINATION: CT CERVICAL SPINE without contrast CLINICAL INFORMATION: Reason for Exam fall, unclear fall hx COMPARISON: No prior CT available, TECHNIQUE: Computed axial sagittal and coronal images acquired using department's standard protocol. This CT examination was performed using dose optimization techniques as appropriate, variously including the following: *Automated exposure control *Adjustment of mA and/or kV according to patient size (this includes techniques or standardized protocols for targeted exams where dose is matched to indication/reason for exam; i.e. extremities or head) *Use of iterative reconstruction technique CONTRAST: None DLP: 738 mGy-cm FINDINGS: SKULL BASE: Visualized structures at skull base are normal, included sinuses at skull base are clear. There is soft tissue within the external auditory canals bilaterally. This can be evaluated by direct physical exam. CERVICAL VERTEBRAE: Seven cervical vertebrae identified maintaining proper height and alignment, DISCS: Loss of disc height and developed osteophyte from the edges of endplates at multiple levels especially at C5-C6 and C6-C7 suggests underlying degenerative disc disease. There are osteophytes protruding from the edges of endplates encroaching on the left foramen at the level of C5-C6, C6-C7 and on the right foramen at C5-C6, C6-C7 and C7-T1. Axial images show narrowing of the central canal possibly stenosis and compression on the cord at C5-C6. And C6-C7 no fractures. PARAVERTEBRAL SOFT TISSUE: Paravertebral soft tissues unremarkable. CT/CT cervical spine wo con IMPRESSION: *No fracture. *Loss of disc height and developed osteophyte from the edges of endplates especially at C5-C6 and C6-C7 suggests underlying early advanced degenerative disc disease. *Protruding osteophytes from the endplates encroaching on the central canal possibly underlying cord compression and spinal stenosis at especially C5-C6. If patient has neurological symptoms consider correlation with MRI. *Osteophyte encroaching on the neural foramen bilaterally as above. *Soft tissue filling within the external auditory canal left more than right, please correlate with the clinical exam.
--- NOTE | ~2022-02-19 | XR_ITS ---
EXAMINATION: XR CHEST CLINICAL INFORMATION: Feeding tube placement. COMPARISON: Earlier on same day and 03/01/2022. TECHNIQUE: AP portable view of the lower chest and upper abdomen was obtained. FINDINGS: There are patchy regions of ground-glass airspace disease seen in the lower lungs bilaterally similar to previous studies. Heart normal size. No significant pleural effusion is identified. Feeding tube is seen with its tip in the location of the first portion of the duodenum. If there is question of positioning contrast could be instilled into the feeding tube with image being obtained portably. For further advancement of the catheter, it may help if the patient is kept on right side and a little more catheter is available to advance by peristalsis. XR/XR chest 1V IMPRESSION: 1. Continued bilateral interstitial and airspace disease. 2. Feeding tube appears to be in the region of the pylorus and duodenum. Contrast study could definitely show tip positioning.
--- NOTE | ~2022-02-19 | XR_ITS ---
EXAMINATION: XR CHEST CLINICAL INFORMATION: Fever COMPARISON: Chest radiograph 03/05/2022 TECHNIQUE: Frontal view of the chest was obtained. FINDINGS: Essentially no change in multifocal bilateral airspace opacities. Patient's arms and hands overlie the chest. Cardiac mediastinal contours are unchanged. No pleural effusion or pneumothorax on this portable AP radiograph. There is a partially visualized enteric tube which courses out of field of view. XR/XR chest 1V IMPRESSION: No significant change in multifocal bilateral airspace disease.
--- NOTE | ~2022-02-19 | XR_ITS ---
EXAMINATION: XR CHEST CLINICAL INFORMATION: Assess enteric tube. COMPARISON: 03/01/2029 2 chest radiograph. TECHNIQUE: Frontal view of the chest was obtained. FINDINGS: Support devices: Enteric tube with tip terminating over the region of the gastric antrum. Bilateral pulmonary patchy infiltrates, left greater than right without significant interval change. The heart and mediastinal structures are unremarkable. XR/XR chest 1V IMPRESSION: 1. Enteric tube with tip overlying the region of the gastric antrum. 2. Bilateral pulmonary patchy infiltrates without significant change.
--- NOTE | ~2022-02-19 | US_ITS ---
EXAMINATION: US ABDOMEN LIMITED CLINICAL INFORMATION: Cirrhosis. Rule out ascites.. COMPARISON: None TECHNIQUE: Limited 4 quadrant abdominal ultrasound FINDINGS: No ascites seen. US/US abdomen limited IMPRESSION: No ascites seen.
--- NOTE | ~2022-02-19 | XR_ITS ---
EXAMINATION: XR CHEST CLINICAL INFORMATION: Tube placement COMPARISON: 02/23/22 TECHNIQUE: Upright frontal portable view of the chest was obtained. FINDINGS: The uppermost chest is excluded. The enteric tube tip is in the left upper quadrant likely the proximal stomach. The port is slightly below the expected region of the GE junction. No large area of consolidation or alveolar edema XR/XR chest 1V IMPRESSION: The enteric tube terminates in the left upper quadrant with the port just beyond the expected region of the GE junction
[2022-02-19 09:28] VITALS: BP 157/95; BP 180/72; PULSE 70; PULSE 79; RESP 18; TEMP 37.2; O2SAT 98; O2SAT 99; BMI 35.5
[2022-02-19 09:37] LABS: Glucose, Whole Blood 183 mg/dL (60-115)
--- NOTE | 2022-02-19 09:48 | ECG_ITS ---
Test Reason : FALL Blood Pressure : / mmHG Vent. Rate : 085 BPM Atrial Rate : 085 BPM P-R Int : 186 ms QRS Dur : 120 ms QT Int : 388 ms P-R-T Axes : 051 -60 080 degrees QTc Int : 461 ms Normal sinus rhythm Left anterior fascicular block Left ventricular hypertrophy with QRS widening and repolarization abnormality ( R in aVL , Todd product ) Cannot rule out Septal infarct , age undetermined Abnormal ECG When compared with ECG of 10-DEC-2020 07:18, Minimal criteria for Septal infarct are now Present Referred By: Polina Jamison Electronically Signed By:GERSON SNYDER MD
--- NOTE | 2022-02-19 09:58 | ED_ITS ---
HPI - Fall General Chief Complaint: Fall Stated Complaint: FALL W/ NECK&BACK PAIN,+CCOLLAR,AB LABS FROM SNF Time Seen by Provider: 02/19/22 09:15 Source: EMS Mode of arrival: EMS Limitations: altered mental status History of Present Illness HPI Narrative: Patient comes from [facility] by EMS. Patient has history of Parkinson's, dementia, schizophrenia. Patient is poor historian. According to EMS, patient fell from bed around 06:15. The staff link labs, EMS was informed that the ammonia level is elevated. Patient takes lactulose 8 times a day. According to [facility] chart, patient is independent with transfers and toileting at baseline but falls often. Patient complaining of scalp pain, patient does have a large hematoma in the back, no laceration, no active bleeding. Patient denies neck pain, patient on C spine precautions Related Data Home Medications Medication Instructions Recorded Confirmed aspirin 81 mg tablet,delayed 81 mg PO DAILY 11/18/20 12/10/20 release benztropine 1 mg tablet 1 mg PO BID 11/18/20 12/10/20 betamethasone, augmented 0.05 % 1 appl TOPICAL BID 11/18/20 12/10/20 topical cream carbidopa 25 mg-levodopa 100 mg 1 tab PO QID 11/18/20 12/10/20 tablet (Sinemet) diazepam 2 mg tablet 1 mg PO BID 11/18/20 12/10/20 fluphenazine decanoate 25 mg/mL 50 mg SUBCUT Q14D 11/18/20 12/10/20 injection solution gabapentin 300 mg capsule 900 mg PO TID 11/18/20 12/10/20 loratadine 10 mg tablet 10 mg PO DAILY 11/18/20 12/10/20 metformin 1,000 mg tablet 1,000 mg PO BIDWM 11/18/20 12/10/20 miconazole nitrate 2 % topical 1 spray TOPICAL BID PRN 11/18/20 12/10/20 spray (Lotrimin AF) pregabalin 75 mg capsule (Lyrica) 75 mg PO BID 11/18/20 12/10/20 tramadol 50 mg tablet 50 mg PO BID 11/18/20 12/10/20 docusate sodium 100 mg tablet 100 mg PO DAILY PRN 12/10/20 12/10/20 insulin detemir U-100 100 unit/mL 25 unit SUBCUT BID 12/10/20 12/10/20 (3 mL) subcutaneous pen (Levemir FlexTouch U-100 Insulin) lisinopril 10 mg tablet 1 tab PO DAILY 12/10/20 12/10/20 nicotine 14 mg/24 hr daily 1 patch TRANSDERMAL DAILY 12/10/20 12/10/20 transdermal patch sennosides 8.6 mg tablet (senna) 8.6 mg PO DAILY PRN 12/10/20 12/10/20 ziprasidone HCl 20 mg capsule 20 mg PO DAILY@1800 12/10/20 12/10/20 Previous Rx's Medication Instructions Recorded lactulose 20 gram/30 mL oral 40 g (60 mL) PO TID #300 ml 12/11/20 solution Allergies Allergy/AdvReac Type Severity Reaction Status Date / Time POLLEN/RAGWEED Allergy Unknown UNKNOWN Uncoded 02/19/22 09:22 Review of Systems Review of Systems: Constitutional : Denies fever ENT/Mouth : No ear pain, no sore throat Eyes: No redness, no eye pain Cardiovascular : Denies chest pain or palpitations Respiratory : Denies cough or shortness of breath Gastrointestinal : No vomiting or diarrhea Genitourinary : Denies dysuria Musculoskeletal : Denies joint pains or myalgias Skin : Complaining of pain in his scalp Neuro : No headache Psych : No anxiety or depression Heme/Lymph: No easy bruising Endocrine : No polyuria or polydipsia PMFSH Past Medical History Medical History Ataxia Dementia Diabetes Drug abuse, cocaine type Essential tremor ETOH abuse Orthostatic hypotension Parkinson disease Schizophrenia Family History Family History (Updated 12/10/20 @ 17:41 by Ayaan Fang MD) Other Hypertension Social History Social History Household Members: None Housing: [facility] Housing Other:: [facility] Do you presently have visiting nurse or other home services: No Alcohol intake: former Patient Tobacco Use Status: Former Tobacco user Cigarettes Per Day: 1 Second Hand Smoke Exposure: No Use of substances other than those prescribed or required for medical reasons: Yes Advance Directives: No Advance Directives Information Provided: No service: No ([employer]) Current occupational status: disabled Physical Exam Vital Signs: Vital Signs: Last Vital Signs Temp 98.9 F 02/19/22 09:28 Pulse 71 02/19/22 13:33 Resp 16 02/19/22 13:33 BP 163/61 H 02/19/22 13:33 Pulse Ox 98 02/19/22 11:50 BMI result Body Mass Index 35.5 Const: Other: Appearance: Alert. No acute distress Eyes: Pupils equal, round and reactive to light. ENT: Pharynx normal. Neck: On C-collar, no C-spine tenderness, no palpable step-offs CVS: Normal heart rate and rhythm. Pulses normal. Normal S1 and S2 Respiratory: No respiratory distress. Breath sounds normal. No Wheezing. No rales Abdomen: Soft and nontender. No rigidity. No distention. Skin: Large hematoma in the scalp, no lacerations Extremities: No lower extremity edema. No Lacerations. No Rash Neuro: Oriented X 3. No motor deficit. No sensory deficit. Moving all extremities. No slurred speech. CN 2 through 12 grossly intact Psych: calm, cooperative, normal affect Course Course Course Narrative: Labs and Imaging pending. It was noted the patient's blood pressure is in the 190s systolic. Patient denies headache, visual changes, dizziness, chest pain. Patient was given 1 dose of p.o. labetalol [address] scan shows that patient has a high attenuation along the right tentorium, con cerning for intracranial subdural bleed. There is no mass effect. I discussed the CT scan with Dr. Martinez. At this time, transfer is not recommended. Patient is neurologically intact. Patient has no headache. I discussed the CT scan with the patient, he seems surprised. A few minutes later patient had forgotten that we spoke about the CT scan. Yet he says that he feels well and would like to be discharged home. I discussed the above- mentioned with Dr. Moon, at this time, it is unclear if patient has a healthcare proxy. Patient's vitals stable, blood pressure now 163/61. MDM - Fall Lab Data Result diagrams: 02/19/22 10:09 02/19/22 10:10 Labs: Lab Results 02/19/22 02/19/22 02/19/22 Range/Units 09:33 10:09 10:09 WBC 4.2 L (4.8-10.8) X10*3/uL RBC 3.14 L (4.60-5.80) X10*6/uL Hgb 9.8 L (14.0-18.0) g/dl Hct 26.6 L (42.0-52.0) % MCV 84.7 (80.0-98.0) fL MCH 31.2 (27.0-33.0) pg MCHC 36.8 H (31.0-36.0) g/dl RDW 15.7 (11.0-16.0) % Plt Count 78 L (160-400) X10*3/uL MPV 9.5 (9.4-12.4) fL Immature Gran % (Auto) 0.2 (0.0-0.4) % Neut % (Auto) 57.6 (45-73) % Lymph % (Auto) 23.9 (20-40) % [place] % (Auto) 7.7 (2-11) % Eos % (Auto) 9.9 H (0-4) % Baso % (Auto) 0.7 (0-2) % Lymph # (Auto) 1.0 L (1.2-4.9) X10*3/uL [place] # (Auto) 0.3 (0.1-1.2) X10*3/uL Eos # (Auto) 0.4 (0.0-0.4) X10*3/uL Baso # (Auto) 0.0 (0.0-0.2) X10*3/uL Abs Immat Gran (auto) 0.01 (0.00-0.03) X10*3/uL Absolute Neuts (auto) 2.4 (2.0-8.3) x10*3/uL Absolute Nucleated RBC 0.000 (0.0-0.012) X10*3/uL Nucleated RBC % (auto) 0.0 (0.0-0.2) /100WBC PT 13.1 H (9.9-13.0) SEC INR 1.2 H (0.9-1.1) Sodium (135-145) mmol/L Potassium (3.3-5.1) mmol/L Chloride (96-108) mmol/L Carbon Dioxide (22-29) mmol/L Anion Gap (12-20) BUN (9-16) mg/dL Creatinine (0.5-1.4) mg/dL Estim Creat Clear Calc Estimated GFR POC Glucose 183 H (60-115) mg/dL Random Glucose (60-115) mg/dL Calcium (8.4-10.2) mg/dL Magnesium (1.6-2.6) mg/dL Total Bilirubin (0.0-1.0) mg/dL Direct Bilirubin (0.0-0.5) mg/dL AST (5-37) U/L ALT (0-40) U/L Alkaline Phosphatase (39-117) U/L Ammonia (13-55) umol/L Troponin I High Sens (<3.5-35.0) ng/L Total Protein (6.5-8.0) g/dL Albumin (3.5-5.0) g/dL COVID-19 (JAS) (Negative) COVID-19 Clin Com 02/19/22 02/19/22 02/19/22 Range/Units 10:10 10:10 10:10 WBC (4.8-10.8) X10*3/uL RBC (4.60-5.80) X10*6/uL Hgb (14.0-18.0) g/dl Hct (42.0-52.0) % MCV (80.0-98.0) fL MCH (27.0-33.0) pg MCHC (31.0-36.0) g/dl RDW (11.0-16.0) % Plt Count (160-400) X10*3/uL MPV (9.4-12.4) fL Immature Gran % (Auto) (0.0-0.4) % Neut % (Auto) (45-73) % Lymph % (Auto) (20-40) % [place] % (Auto) (2-11) % Eos % (Auto) (0-4) % Baso % (Auto) (0-2) % Lymph # (Auto) (1.2-4.9) X10*3/uL [place] # (Auto) (0.1-1.2) X10*3/uL Eos # (Auto) (0.0-0.4) X10*3/uL Baso # (Auto) (0.0-0.2) X10*3/uL Abs Immat Gran (auto) (0.00-0.03) X10*3/uL Absolute Neuts (auto) (2.0-8.3) x10*3/uL Absolute Nucleated RBC (0.0-0.012) X10*3/uL Nucleated RBC % (auto) (0.0-0.2) /100WBC PT (9.9-13.0) SEC INR (0.9-1.1) Sodium 141 (135-145) mmol/L Potassium 4.1 (3.3-5.1) mmol/L Chloride 106 (96-108) mmol/L Carbon Dioxide 24 (22-29) mmol/L Anion Gap 15 (12-20) BUN 29 H (9-16) mg/dL Creatinine 1.95 H (0.5-1.4) mg/dL Estim Creat Clear Calc 42.8 Estimated GFR 35 POC Glucose (60-115) mg/dL Random Glucose 167 H (60-115) mg/dL Calcium 10.4 H D (8.4-10.2) mg/dL Magnesium 2.3 (1.6-2.6) mg/dL Total Bilirubin 1.1 H (0.0-1.0) mg/dL Direct Bilirubin 0.5 (0.0-0.5) mg/dL AST 38 H D (5-37) U/L ALT 19 (0-40) U/L Alkaline Phosphatase 90 (39-117) U/L Ammonia (13-55) umol/L Troponin I High Sens 25.2 (<3.5-35.0) ng/L Total Protein 6.6 (6.5-8.0) g/dL Albumin 3.2 L (3.5-5.0) g/dL COVID-19 (JAS) Negative (Negative) COVID-19 Clin Com See Note 02/19/22 Range/Units 10:10 WBC (4.8-10.8) X10*3/uL RBC (4.60-5.80) X10*6/uL Hgb (14.0-18.0) g/dl Hct (42.0-52.0) % MCV (80.0-98.0) fL MCH (27.0-33.0) pg MCHC (31.0-36.0) g/dl RDW (11.0-16.0) % Plt Count (160-400) X10*3/uL MPV (9.4-12.4) fL Immature Gran % (Auto) (0.0-0.4) % Neut % (Auto) (45-73) % Lymph % (Auto) (20-40) % [place] % (Auto) (2-11) % Eos % (Auto) (0-4) % Baso % (Auto) (0-2) % Lymph # (Auto) (1.2-4.9) X10*3/uL [place] # (Auto) (0.1-1.2) X10*3/uL Eos # (Auto) (0.0-0.4) X10*3/uL Baso # (Auto) (0.0-0.2) X10*3/uL Abs Immat Gran (auto) (0.00-0.03) X10*3/uL Absolute Neuts (auto) (2.0-8.3) x10*3/uL Absolute Nucleated RBC (0.0-0.012) X10*3/uL Nucleated RBC % (auto) (0.0-0.2) /100WBC PT (9.9-13.0) SEC INR (0.9-1.1) Sodium (135-145) mmol/L Potassium (3.3-5.1) mmol/L Chloride (96-108) mmol/L Carbon Dioxide (22-29) mmol/L Anion Gap (12-20) BUN (9-16) mg/dL Creatinine (0.5-1.4) mg/dL Estim Creat Clear Calc Estimated GFR POC Glucose (60-115) mg/dL Random Glucose (60-115) mg/dL Calcium (8.4-10.2) mg/dL Magnesium (1.6-2.6) mg/dL Total Bilirubin (0.0-1.0) mg/dL Direct Bilirubin (0.0-0.5) mg/dL AST (5-37) U/L ALT (0-40) U/L Alkaline Phosphatase (39-117) U/L Ammonia 102 H (13-55) umol/L Troponin I High Sens (<3.5-35.0) ng/L Total Protein (6.5-8.0) g/dL Albumin (3.5-5.0) g/dL COVID-19 (JAS) (Negative) COVID-19 Clin Com Discharge Plan Discharge Clinical Impression: Intracranial hemorrhage, subdural Patient Disposition: Admitted As Inpatient Prescriptions: No Action docusate sodium 100 mg Tablet 100 mg PO DAILY PRN (Reason: Constipation) 0RF betamethasone, augmented 0.05 % Cream 1 appl TOPICAL BID 0RF Rx Instructions: apply to back of head for itching until resolved aspirin 81 mg Tablet,Delayed Release (Dr/Ec) 81 mg PO DAILY 0RF tramadol 50 mg Tablet 50 mg PO BID 0RF Lotrimin AF 2 % Aerosol,[place] 1 spray TOPICAL BID PRN (Reason: fungal infection) 0RF fluphenazine decanoate 25 mg/mL Solution 50 mg SUBCUT Q14D 0RF diazepam 2 mg Tablet 1 mg PO BID 0RF metformin 1,000 mg Tablet 1,000 mg PO BIDWM 0RF benztropine 1 mg Tablet 1 mg PO BID 0RF gabapentin 300 mg Capsule 900 mg PO TID 0RF carbidopa-levodopa [Sinemet] 25-100 mg Tablet 1 tab PO QID 0RF loratadine 10 mg Tablet 10 mg PO DAILY 0RF pregabalin [Lyrica] 75 mg Capsule 75 mg PO BID 0RF sennosides [senna] 8.6 mg Tablet 8.6 mg PO DAILY PRN (Reason: Constipation) 0RF nicotine 14 mg/24 hr Patch 24 Hour 1 patch TRANSDERMAL DAILY 0RF ziprasidone HCl 20 mg capsule 20 mg PO DAILY@1800 0RF lisinopril 10 mg tablet 1 tab PO DAILY 0RF Rx Instructions: HOLD FOR SBP <90 Levemir FlexTouch U-100 Insuln 100 unit/mL (3 mL) insulin pen 25 unit subcut BID 0RF lactulose 20 gram/30 mL Solution 40 g PO TID Qty: 300 0RF
--- NOTE | 2022-02-19 10:11 | PC.NURSE ---
pt falls asleep between interventions. states he's normally up all day and that drowsiness is not baseline. PERRLA, clear speech. no focal deficits noted.
[2022-02-19 10:13] VITALS: BP 193/73; PULSE 85; RESP 15; O2SAT 98
[2022-02-19 10:19] LABS: MANUAL DIFF FLAG NO
[2022-02-19 10:21] LABS: Basophils Percent Auto 0.7 % (0-2); Eosinophils Absolute Auto 0.4 X10*3/uL (0.0-0.4); Eosinophils Percent Auto 9.9 % (0-4); Hematocrit 26.6 % (42.0-52.0); Hemoglobin 9.8 g/dl (14.0-18.0); Imm Gran Abs Auto 0.01 X10*3/uL (0.00-0.03); Imm Gran Pct Auto 0.2 % (0.0-0.4); Lymphocytes Percent Auto 23.9 % (20-40); Mean Corpuscular HGB Conc 36.8 g/dl (31.0-36.0); Mean Corpuscular Hemoglobin 31.2 pg (27.0-33.0); Mean Corpuscular Volume 84.7 fL (80.0-98.0); Mean Platelet Volume 9.5 fL (9.4-12.4); Monocytes Absolute Auto 0.3 X10*3/uL (0.1-1.2); Monocytes Percent Auto 7.7 % (2-11); Neutrophils Absolute Auto 2.4 x10*3/uL (2.0-8.3); Neutrophils Percent Auto 57.6 % (45-73); Red Blood Count 3.14 X10*6/uL (4.60-5.80); Red Cell Distribution Width 15.7 % (11.0-16.0); White Blood Count 4.2 X10*3/uL (4.8-10.8)
[2022-02-19 10:33] LABS: Platelet Count 78 X10*3/uL (160-400)
[2022-02-19 10:35] LABS: INTERNATIONAL NORM RATIO 1.2 (0.9-1.1); Prothrombin Time 13.1 SEC (9.9-13.0)
[2022-02-19 10:40] LABS: Ammonia 102 umol/L (13-55)
[2022-02-19 10:43] LABS: COVID-19 Test Negative (Negative); IDNOW Serial# 16C4AD1C
[2022-02-19 10:46] VITALS: BP 198/75; PULSE 85
--- NOTE | 2022-02-19 10:46 | PC.NURSE ---
pt remains hypertensive. doc Jamison aware.
[2022-02-19 10:47] LABS: Alanine Aminotransferase 19 U/L (0-40); Albumin Level 3.2 g/dL (3.5-5.0); Alkaline Phosphatase 90 U/L (39-117); Anion Gap 15 (12-20); Aspartate Amino Transferase 38 U/L (5-37); Bilirubin Direct 0.5 mg/dL (0.0-0.5); Bilirubin Total 1.1 mg/dL (0.0-1.0); Blood Urea Nitrogen 29 mg/dL (9-16); Calcium 10.4 mg/dL (8.4-10.2); Carbon Dioxide 24 mmol/L (22-29); Chloride 106 mmol/L (96-108); Creatinine Clr Calc Pharmacy 42.8; Estimated Glomerular Filt Rate 35; Glucose Random 167 mg/dL (60-115); Magnesium 2.3 mg/dL (1.6-2.6); Potassium 4.1 mmol/L (3.3-5.1); Sodium 141 mmol/L (135-145); Total Protein 6.6 g/dL (6.5-8.0)
[2022-02-19 10:53] LABS: Troponin-I High Sensitivity 25.2 ng/L (<3.5-35.0)
[2022-02-19] MEDS: 0.9 % Sodium Chloride 1,000 ML 999 ML IVCONT (11:13)
[2022-02-19] MEDS: Labetalol HCL 100 MG TABLET PO (11:13)
[2022-02-19 11:50] VITALS: BP 171/61; PULSE 79; RESP 18; O2SAT 98
[2022-02-19 13:33] VITALS: BP 163/61; PULSE 71; RESP 16
--- NOTE | 2022-02-19 14:37 | P.HPHOSP_ITS ---
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 Routine labs were done and the patient's ammonia level was found to be extremely elevated despite lactulose. Head CT was done out of protocol and demonstrated a likely intracranial subdural bleed along the right tentorium. Call was placed to Neurology who recommended admitting the patient overnight and repeating the CT in the a.m.. Of note, patient mental status and presentation is at his baseline without focal deficits. He will be admitted for repeat CT scan in the a.m. Review of Systems Review of Systems: Denies chest pain Denies shortness of breath Denies nausea vomiting diarrhea Denies headache PMFSH Medical History Ataxia Dementia Diabetes Drug abuse, cocaine type Essential tremor ETOH abuse Orthostatic hypotension Parkinson disease Schizophrenia Family History Other Hypertension Social History Household Members: None Housing: [facility] Housing Other:: [facility] Do you presently have visiting nurse or other home services: No Alcohol intake: former Patient Tobacco Use Status: Former Tobacco user Cigarettes Per Day: 1 Second Hand Smoke Exposure: No Use of substances other than those prescribed or required for medical reasons: Yes Advance Directives: No Advance Directives Information Provided: No service: No ([employer]) Current occupational status: disabled Meds Allergies Allergy/AdvReac Type Severity Reaction Status Date / Time POLLEN/RAGWEED Allergy Unknown UNKNOWN Uncoded 02/19/22 09:22 Active Medications: Current Medications Pharmacy Consult (Consult Rx Perform Med Rec) 1 each MISCELLANE ONCE PRN PRN Reason: Consult order Sodium Chloride (0.9 % Sodium Chloride Flush 3 Ml Syringe) 3 ml IVFLUSH [facility] Home Medications Medication Instructions Recorded Confirmed Last Taken Type aspirin 81 mg tablet,delayed 81 mg PO DAILY 11/18/20 12/10/20 Unknown History release benztropine 1 mg tablet 1 mg PO BID 11/18/20 12/10/20 Unknown History betamethasone, augmented 0.05 % 1 appl TOPICAL BID 11/18/20 12/10/20 Unknown History topical cream carbidopa 25 mg-levodopa 100 mg 1 tab PO QID 11/18/20 12/10/20 Unknown History tablet (Sinemet) diazepam 2 mg tablet 1 mg PO BID 11/18/20 12/10/20 Unknown History fluphenazine decanoate 25 mg/mL 50 mg SUBCUT Q14D 11/18/20 12/10/20 11/27/20 History injection solution gabapentin 300 mg capsule 900 mg PO TID 11/18/20 12/10/20 Unknown History loratadine 10 mg tablet 10 mg PO DAILY 11/18/20 12/10/20 Unknown History metformin 1,000 mg tablet 1,000 mg PO BIDWM 11/18/20 12/10/20 Unknown History miconazole nitrate 2 % topical 1 spray TOPICAL BID PRN 11/18/20 12/10/20 Unknown History spray (Lotrimin AF) pregabalin 75 mg capsule (Lyrica) 75 mg PO BID 11/18/20 12/10/20 Unknown History tramadol 50 mg tablet 50 mg PO BID 11/18/20 12/10/20 Unknown History docusate sodium 100 mg tablet 100 mg PO DAILY PRN 12/10/20 12/10/20 Unknown History insulin detemir U-100 100 unit/mL 25 unit SUBCUT BID 12/10/20 12/10/20 Unknown History (3 mL) subcutaneous pen (Levemir FlexTouch U-100 Insulin) lisinopril 10 mg tablet 1 tab PO DAILY 12/10/20 12/10/20 Unknown History nicotine 14 mg/24 hr daily 1 patch TRANSDERMAL DAILY 12/10/20 12/10/20 Unknown History transdermal patch sennosides 8.6 mg tablet (senna) 8.6 mg PO DAILY PRN 12/10/20 12/10/20 Unknown History ziprasidone HCl 20 mg capsule 20 mg PO DAILY@1800 12/10/20 12/10/20 Unknown History Physical Exam Vital Signs and Narrative: Vital Signs: Last Vital Signs Temp 98.9 F 02/19/22 09:28 Pulse 71 02/19/22 13:33 Resp 16 02/19/22 13:33 BP 163/61 H 02/19/22 13:33 Pulse Ox 98 02/19/22 11:50 BMI result Body Mass Index 35.5 Const: Other: Awake alert oriented x3 in no acute distress. 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 Motor is 5/5 all extremities sensation is intact. Cognition is at his baseline Extrem: Other: No edema bilaterally Results Labs CBC and Chem 7: 02/19/22 10:09 02/19/22 10:10 Labs: Laboratory Results - last 24 hr 02/19/22 02/19/22 02/19/22 09:33 10:09 10:09 MCV 84.7 MCH 31.2 MCHC 36.8 H RDW 15.7 Plt Count 78 L MPV 9.5 Immature Gran % (Auto) 0.2 Neut % (Auto) 57.6 Lymph % (Auto) 23.9 [place] % (Auto) 7.7 Eos % (Auto) 9.9 H Baso % (Auto) 0.7 Lymph # (Auto) 1.0 L [place] # (Auto) 0.3 Eos # (Auto) 0.4 Baso # (Auto) 0.0 Abs Immat Gran (auto) 0.01 Absolute Neuts (auto) 2.4 Absolute Nucleated RBC 0.000 Nucleated RBC % (auto) 0.0 PT 13.1 H INR 1.2 H Anion Gap Estim Creat Clear Calc Estimated GFR POC Glucose 183 H Random Glucose Calcium Magnesium Total Bilirubin Direct Bilirubin AST ALT Alkaline Phosphatase Ammonia Troponin I High Sens Total Protein Albumin COVID-19 (JAS) COVID-19 Clin Com 02/19/22 02/19/22 02/19/22 10:10 10:10 10:10 MCV MCH MCHC RDW Plt Count MPV Immature Gran % (Auto) Neut % (Auto) Lymph % (Auto) [place] % (Auto) Eos % (Auto) Baso % (Auto) Lymph # (Auto) [place] # (Auto) Eos # (Auto) Baso # (Auto) Abs Immat Gran (auto) Absolute Neuts (auto) Absolute Nucleated RBC Nucleated RBC % (auto) PT INR Anion Gap 15 Estim Creat Clear Calc 42.8 Estimated GFR 35 POC Glucose Random Glucose 167 H Calcium 10.4 H D Magnesium 2.3 Total Bilirubin 1.1 H Direct Bilirubin 0.5 AST 38 H D ALT 19 Alkaline Phosphatase 90 Ammonia Troponin I High Sens 25.2 Total Protein 6.6 Albumin 3.2 L COVID-19 (JAS) Negative COVID-19 Clin Com See Note 02/19/22 10:10 MCV MCH MCHC RDW Plt Count MPV Immature Gran % (Auto) Neut % (Auto) Lymph % (Auto) [place] % (Auto) Eos % (Auto) Baso % (Auto) Lymph # (Auto) [place] # (Auto) Eos # (Auto) Baso # (Auto) Abs Immat Gran (auto) Absolute Neuts (auto) Absolute Nucleated RBC Nucleated RBC % (auto) PT INR Anion Gap Estim Creat Clear Calc Estimated GFR POC Glucose Random Glucose Calcium Magnesium Total Bilirubin Direct Bilirubin AST ALT Alkaline Phosphatase Ammonia 102 H Troponin I High Sens Total Protein Albumin COVID-19 (JAS) COVID-19 Clin Com Imaging Radiologist's Impressions: Impressions Cervical Spine CT 02/19/22 10:38 IMPRESSION: *No fracture. *Loss of disc height and developed osteophyte from the edges of endplates especially at C5-C6 and C6-C7 suggests underlying early advanced degenerative disc disease. *Protruding osteophytes from the endplates encroaching on the central canal possibly underlying cord compression and spinal stenosis at especially C5-C6. If patient has neurological symptoms consider correlation with MRI. *Osteophyte encroaching on the neural foramen bilaterally as above. *Soft tissue filling within the external auditory canal left more than right, please correlate with the clinical exam. Head CT 02/19/22 10:38 IMPRESSION: High attenuation along the right tentorium concerning for intracranial subdural bleed. There is no mass effect. Mild diffuse deep white matter and paraventricular hypoattenuation, nonspecific most likely chronic microvascular angiopathy. (Referring physician staff is being called, to be alerted of the above findings and recommendations.) Assessment and Plan (1) Intracranial hemorrhage, subdural: Status: Acute (2) Parkinson disease: Status: Acute (3) Dementia: Status: Acute (4) Schizophrenia: Status: Acute (5) Hyperammonemia: Status: Acute Plan 61-year-old male with known history of dementia Parkinson's disease and schizophrenia who was a long-term resident at [facility] presents with concerns for elevated ammonia level. Staff noted he fell out of bed this morning hitting his head; however no mental status changes was sent for high ammonia. In the emergency room a CT scan of the head was done which demonstrated a subdural hematoma. At this point time patient is at his baseline; discussed with Neurology whose recommendation is observe overnight repeat CT scan in the morning if no changes may return to care 1 1. Subdural hematoma -asymptomatic -repeat CT scan in a.m.; no change may return to care 1 2. Parkinson's disease -continue all outpatient therapies as ordered 3. Hyperammonemia -continue lactulose as at [facility] -add rifamixin 550 b.i.d. -follow-up ammonia level at [facility] 4.DM II -continue metformin -add this broke correctional scale -to avoid behavior issues, patient will be fed a regular diet as at [facility] there are no dietary restrictions Full code Boots Patient will require 1 additional midnight going forward to repeat CT scan; may require additional midnights based on CT scan Quality Stroke Does the patient have a stroke diagnosis?: No VTE Prior VTE?: No VTE Risk Level:: Medical - moderate - high VTE Device Contraindication: N/A - Device Ordered VTE Drug Contraindication: Treatment Not Indicated
--- NOTE | 2022-02-19 14:56 | PHA.MEDREC ---
Pharmacy Consult ? Medication Reconciliation Pharmacy has completed the medication reconciliation.
--- NOTE | 2022-02-19 15:00 | PHA.MEDREC ---
Pharmacy Consult ? Medication Reconciliation Pharmacy has completed the medication reconciliation. FLUPHENAZINE DUE TODAY
[2022-02-19 15:11] VITALS: BP 165/66; PULSE 66; RESP 16; TEMP 37; O2SAT 99
[2022-02-19 15:16] LABS: Appearance Urine CLEAR; Color Urine YELLOW; Glucose Urine UA NEG (NEG); Leukocyte Esterase Urine NEG (NEG); Nitrite Urine NEG (NEG); UACC Culture Trigger NO; Urine Blood 2+ (NEG); Urine Ketones NEG (NEG); Urine Protein 1+ MG/DL (NEG-TRACE)
[2022-02-19 15:33] LABS: Squamous Epithelial Cell Urine TRACE /LPF; WBC Urine 0 /HPF (0-4)
--- NOTE | 2022-02-19 15:51 | MHC.CM.PN ---
Pt is a LTC resident from [facility] and guardianship on file. Pt will return to [facility] when medically stable. Message left for guardian : [facility] contents and d/c planning updates. CM to follow.
[2022-02-19] MEDS: Ziprasidone 20 MG CAPSULE PO (18:30)
[2022-02-19] MEDS: Carbidopa/Levodopa 25/100 TABLET 1 TAB PO ×2 (18:30→20:44)
[2022-02-19] MEDS: metFORMIN HCl 1,000 MG TABLET 1000 MG PO (18:30)
[2022-02-19] MEDS: Lactulose 20 GM/30 ML SOLUTION 40 GM PO ×2 (18:30→20:44)
[2022-02-19 18:34] LABS: Glucose, Whole Blood 99 mg/dL (60-115)
[2022-02-19] MEDS: traMADoL HCL 50 MG TABLET PO (20:42)
[2022-02-19] MEDS: Gabapentin 600 MG TABLET 1200 MG PO (20:42)
[2022-02-19] MEDS: Benztropine Mesylate 1 MG TABLET PO (20:44)
[2022-02-19] MEDS: amLODIPine Besylate 10 MG TABLET PO (20:44)
[2022-02-19] MEDS: rifAXIMin 550 MG TABLET PO (20:47)
[2022-02-19 20:53] LABS: Glucose, Whole Blood 164 mg/dL (60-115)
[2022-02-19] MEDS: Insulin Lispro 100 UNIT/ML 3 ML VIAL SUBCUT (21:23)
[2022-02-19] MEDS: Insulin Glargine,Hum.rec.anlog 100 UNIT/ML 10 ML VIAL 17 UNIT SUBCUT (21:23)
[2022-02-20] VITALS (7 sets, daily range): BP systolic 169–217; BP diastolic 73–89; PULSE 70–78; RESP 16–20; TEMP 36.2–37.5; O2SAT 94–100; BMI 34.9
--- NOTE | 2022-02-20 06:25 | PC.NURSE ---
Pt sleeping, chest rise and fall observed, Pt remained complaint free throughout the night, safety maintained, call light in reach, this RN continues to monitor.
[2022-02-20] MEDS: Lactulose 20 GM/30 ML SOLUTION 40 GM PO ×5 (06:29→17:26)
[2022-02-20] MEDS: Levothyroxine Sodium 25 MCG TABLET PO (06:29)
[2022-02-20 06:40] LABS: Glucose, Whole Blood 120 mg/dL (60-115)
[2022-02-20 07:25] LABS: MANUAL DIFF FLAG NO
[2022-02-20 07:32] LABS: Basophils Percent Auto 0.5 % (0-2); Eosinophils Absolute Auto 0.4 X10*3/uL (0.0-0.4); Eosinophils Percent Auto 10.7 % (0-4); Hematocrit 22.5 % (42.0-52.0); Hemoglobin 8.1 g/dl (14.0-18.0); Lymphocytes Absolute Auto 1.2 X10*3/uL (1.2-4.9); Lymphocytes Percent Auto 29.3 % (20-40); Mean Corpuscular Hemoglobin 30.8 pg (27.0-33.0); Mean Corpuscular Volume 85.6 fL (80.0-98.0); Mean Platelet Volume 9.8 fL (9.4-12.4); Monocytes Absolute Auto 0.4 X10*3/uL (0.1-1.2); Monocytes Percent Auto 10.2 % (2-11); Neutrophils Percent Auto 49.3 % (45-73); Platelet Count 73 X10*3/uL (160-400); Red Blood Count 2.63 X10*6/uL (4.60-5.80); Red Cell Distribution Width 15.8 % (11.0-16.0); White Blood Count 4.1 X10*3/uL (4.8-10.8)
[2022-02-20 07:51] LABS: Glucose, Whole Blood 125 mg/dL (60-115)
[2022-02-20 08:49] LABS: Alanine Aminotransferase 23 U/L (0-40); Albumin Level 2.8 g/dL (3.5-5.0); Alkaline Phosphatase 70 U/L (39-117); Anion Gap 15 (12-20); Aspartate Amino Transferase 31 U/L (5-37); Blood Urea Nitrogen 31 mg/dL (9-16); Calcium 9.8 mg/dL (8.4-10.2); Carbon Dioxide 23 mmol/L (22-29); Chloride 109 mmol/L (96-108); Creatinine Clr Calc Pharmacy 44.2; Estimated Glomerular Filt Rate 36; Glucose Fasting 126 mg/dL (60-99); Potassium 3.9 mmol/L (3.3-5.1); Sodium 143 mmol/L (135-145); Total Protein 5.7 g/dL (6.5-8.0)
[2022-02-20] MEDS: lisinopriL 40 MG TABLET PO (09:31)
[2022-02-20] MEDS: Loratadine 10 MG TABLET PO (09:31)
[2022-02-20] MEDS: Multivitamin TABLET 1 TAB PO (09:31)
[2022-02-20] MEDS: Furosemide 40 MG TABLET PO (09:31)
[2022-02-20] MEDS: Gabapentin 600 MG TABLET 1200 MG PO ×2 (09:31→15:15)
[2022-02-20] MEDS: Carbidopa/Levodopa 25/100 TABLET 1 TAB PO ×3 (09:31→17:25)
[2022-02-20] MEDS: metFORMIN HCl 1,000 MG TABLET 1000 MG PO ×2 (09:31→17:25)
[2022-02-20] MEDS: Benztropine Mesylate 1 MG TABLET PO (09:31)
[2022-02-20] MEDS: Aspirin Enteric Coated 81 MG TABLET.DR PO (09:31)
[2022-02-20] MEDS: Insulin Glargine,Hum.rec.anlog 100 UNIT/ML 10 ML VIAL 17 UNIT SUBCUT (09:31)
[2022-02-20] MEDS: rifAXIMin 550 MG TABLET PO (09:31)
[2022-02-20] MEDS: 0.9 % Sodium Chloride Flush 3 ML SYRINGE IVFLUSH ×2 (09:38→15:35)
[2022-02-20] MEDS: traMADoL HCL 50 MG TABLET PO (09:39)
[2022-02-20 10:06] LABS: Ammonia 149 umol/L (13-55)
--- NOTE | 2022-02-20 10:57 | P.PNIM_ITS ---
Subjective Subjective Date of Service: 02/20/22 Interval History: Somnolent but arousable this a.m.. Change from admit Review of Systems Unable to obtain secondary to somnolence Physical Exam Vital Signs: Vital Signs: Last Vital Signs Temp 98.7 F 02/20/22 09:10 Pulse 70 02/20/22 09:10 Resp 20 02/20/22 09:10 BP 181/75 H 02/20/22 09:10 Pulse Ox 100 02/20/22 09:10 BMI result Body Mass Index 34.9 Const: Other: Somnolent but arousable Resp: Other: Clear to auscultation bilaterally no rales rhonchi or wheezes Cardio: Other: No S4; positive S1-S2; no S3 murmurs rubs or gallops GI: Other: Soft nontender nondistended with normoactive bowel sounds Neuro: Other: Cranial nerves 2-12 were grossly intact as tested. Motor is 5/5 all extremities sensation is intact. Cognition is at his baseline Extrem: Other: No edema bilaterally Objective Data Active Medications Amlodipine Besylate (Amlodipine Besylate 10 Mg Tablet) 10 mg PO BEDTIME [facility]; Protocol Last Admin: 02/19/22 20:44 Dose: 10 mg Documented by: DEREK Aspirin (Aspirin Enteric Coated 81 Mg Tablet.) 81 mg PO DAILY [facility] Last Admin: 02/20/22 09:31 Dose: 81 mg Documented by: MARIEL Benztropine Mesylate (Benztropine Mesylate 1 Mg Tablet) 1 mg PO BID [facility] Last Admin: 02/20/22 09:31 Dose: 1 mg Documented by: MARIEL Carbidopa/Levodopa (Carbidopa/Levodopa 25/100 Tablet) 1 tab PO QID [facility] Last Admin: 02/20/22 09:31 Dose: 1 tab Documented by: MARIEL Docusate Sodium (Docusate Sodium 100 Mg Capsule) 100 mg PO DAILY PRN PRN Reason: Constipation Furosemide (Furosemide 40 Mg Tablet) 40 mg PO DAILY [facility]; Protocol Last Admin: 02/20/22 09:31 Dose: 40 mg Documented by: MARIEL Gabapentin (Gabapentin 600 Mg Tablet) 1,200 mg PO TID [facility] Last Admin: 02/20/22 09:31 Dose: 1,200 mg Documented by: MARIEL Insulin Glargine (Insulin Glargine,Hum.Rec.Anlog 100 Unit/Ml 10 Ml Vial) 17 unit SUBCUT BID [facility] Last Admin: 02/20/22 09:31 Dose: 17 unit Documented by: MARIEL Insulin Human Lispro (Insulin Lispro 100 Unit/Ml 3 Ml Vial) 0 unit SUBCUT QIDACHS [facility]; Protocol Last Admin: 02/20/22 07:57 Dose: Not Given Documented by: GABO Non-Admin Reason: No Insulin Coverage Lactulose (Lactulose 20 Gm/30 Ml Solution) 40 gm PO 8XD [facility] Last Admin: 02/20/22 09:42 Dose: 40 gm Documented by: MARIEL Levothyroxine Sodium (Levothyroxine Sodium 25 Mcg Tablet) 25 mcg PO DAILY@0600 [facility] Last Admin: 02/20/22 06:29 Dose: 25 mcg Documented by: JACQUIE Lisinopril (Lisinopril 40 Mg Tablet) 40 mg PO DAILY [facility]; Protocol Last Admin: 02/20/22 09:31 Dose: 40 mg Documented by: MARIEL Loratadine (Loratadine 10 Mg Tablet) 10 mg PO DAILY [facility] Last Admin: 02/20/22 09:31 Dose: 10 mg Documented by: MARIEL Metformin HCl (Metformin Hcl 1,000 Mg Tablet) 1,000 mg PO BIDWM [facility] Last Admin: 02/20/22 09:31 Dose: 1,000 mg Documented by: MARIEL Multivitamins/Vitamin C (Multivitamin Tablet) 1 tab PO DAILY [facility] Last Admin: 02/20/22 09:31 Dose: 1 tab Documented by: MARIEL Pharmacy Consult (Consult Rx Perform Med Rec) 1 each MISCELLANE ONCE PRN PRN Reason: Consult order Rifaximin (Rifaximin 550 Mg Tablet) 550 mg PO BID [facility] Last Admin: 02/20/22 09:31 Dose: 550 mg Documented by: MARILE Senna (Sennosides 8.6 Mg Tablet) 8.6 mg PO DAILY PRN PRN Reason: Constipation Sodium Chloride (0.9 % Sodium Chloride Flush 3 Ml Syringe) 3 ml IVFLUSH QSHIFT [facility] Last Admin: 02/20/22 09:38 Dose: 3 ml Documented by: MARIEL Tramadol HCl (Tramadol Hcl 50 Mg Tablet) 50 mg PO BID [facility] Last Admin: 02/20/22 09:39 Dose: 50 mg Documented by: MARIEL Comments: barcode not scanning on package Ziprasidone (Ziprasidone 20 Mg Capsule) 20 mg PO DAILY@1800 [facility] Last Admin: 02/19/22 18:30 Dose: 20 mg Documented by: PÉREZ Labs CBC & Chem 7: 02/20/22 07:08 02/20/22 07:08 Labs: Laboratory Results - last 24 hr 02/19/22 02/19/22 02/19/22 14:55 18:30 20:49 MCV MCH MCHC RDW Plt Count MPV Immature Gran % (Auto) Neut % (Auto) Lymph % (Auto) [place] % (Auto) Eos % (Auto) Baso % (Auto) Lymph # (Auto) [place] # (Auto) Eos # (Auto) Baso # (Auto) Abs Immat Gran (auto) Absolute Neuts (auto) Absolute Nucleated RBC Nucleated RBC % (auto) Anion Gap Estim Creat Clear Calc Estimated GFR POC Glucose 99 164 H Fasting Glucose Calcium Total Bilirubin AST ALT Alkaline Phosphatase Ammonia Total Protein Albumin Urine Color YELLOW Urine Appearance CLEAR Urine pH 6.0 Ur Specific [place] 1.010 Urine Protein 1+ H Urine Glucose (UA) NEG Urine Ketones NEG Urine Blood 2+ H Urine Nitrite NEG Ur Leukocyte Esterase NEG Urine RBC 1-4 Urine WBC 0 Ur Squamous Epith Cells TRACE Urine Bacteria NONE 02/20/22 02/20/22 02/20/22 06:35 07:08 07:08 MCV 85.6 MCH 30.8 MCHC 36.0 RDW 15.8 Plt Count 73 L MPV 9.8 Immature Gran % (Auto) 0.0 Neut % (Auto) 49.3 Lymph % (Auto) 29.3 [place] % (Auto) 10.2 Eos % (Auto) 10.7 H Baso % (Auto) 0.5 Lymph # (Auto) 1.2 [place] # (Auto) 0.4 Eos # (Auto) 0.4 Baso # (Auto) 0.0 Abs Immat Gran (auto) 0.00 Absolute Neuts (auto) 2.0 Absolute Nucleated RBC 0.000 Nucleated RBC % (auto) 0.0 Anion Gap 15 Estim Creat Clear Calc 44.2 Estimated GFR 36 POC Glucose 120 H Fasting Glucose 126 H Calcium 9.8 Total Bilirubin 1.0 AST 31 ALT 23 Alkaline Phosphatase 70 D Ammonia Total Protein 5.7 L Albumin 2.8 L Urine Color Urine Appearance Urine pH Ur Specific [place] Urine Protein Urine Glucose (UA) Urine Ketones Urine Blood Urine Nitrite Ur Leukocyte Esterase Urine RBC Urine WBC Ur Squamous Epith Cells Urine Bacteria 02/20/22 02/20/22 07:29 09:38 MCV MCH MCHC RDW Plt Count MPV Immature Gran % (Auto) Neut % (Auto) Lymph % (Auto) [place] % (Auto) Eos % (Auto) Baso % (Auto) Lymph # (Auto) [place] # (Auto) Eos # (Auto) Baso # (Auto) Abs Immat Gran (auto) Absolute Neuts (auto) Absolute Nucleated RBC Nucleated RBC % (auto) Anion Gap Estim Creat Clear Calc Estimated GFR POC Glucose 125 H Fasting Glucose Calcium Total Bilirubin AST ALT Alkaline Phosphatase Ammonia 149 H Total Protein Albumin Urine Color Urine Appearance Urine pH Ur Specific [place] Urine Protein Urine Glucose (UA) Urine Ketones Urine Blood Urine Nitrite Ur Leukocyte Esterase Urine RBC Urine WBC Ur Squamous Epith Cells Urine Bacteria Assessment and Plan (1) Intracranial hemorrhage, subdural: Status: Acute (2) Parkinson disease: Status: Acute (3) Hyperammonemia: Status: Acute (4) Schizophrenia: Status: Acute Plan 61-year-old male with known history of dementia Parkinson's disease and schizophrenia who was a long-term resident at [facility] [place] presents with concerns for elevated ammonia level. Staff noted he fell out of bed this morning hitting his head; however no mental status changes was sent for high ammonia. In the emergency room a CT scan of the head was done which demonstrated a subdural hematoma. At this point [facility] discussed with Neurology whose recommendation is observe overnight repeat CT scan in the morning if no changes may return to care 1 1. Subdural hematoma -no appreciable changes in CT this am compared to admit 2. Parkinson's disease -continue all outpatient therapies as ordered 3. Hyperammonemia -continue lactulose as at [facility]; rifamixin 550 b.i.d. -follow-up ammonia level 149 with changes in MS -GI consult 4.DMII -continue metformin -add this broke correctional scale -to avoid behavior issues, patient will be fed a regular diet as at [facility] there are no dietary restrictions Full code Boots Patient will require 1 additional midnight going forward to repeat CT scan; may require additional midnights based on CT scan Quality Stroke Does the patient have a stroke diagnosis?: No VTE Prior VTE?: No VTE Risk Level:: Medical - moderate - high VTE Device Contraindication: N/A - Device Ordered VTE Drug Contraindication: Treatment Not Indicated
[2022-02-20 11:38] LABS: Glucose, Whole Blood 140 mg/dL (60-115)
--- NOTE | 2022-02-20 11:52 | P.CNGI_ITS ---
History of Present Illness Data of Consult Service Date: 02/20/22 Requesting physician: Daniel Moon Primary Care Provider: Daniel Moon DO HPI Reason for consult: elevated ammonia levels 61 YM transferred [facility] by EMS to [facility] ED on 02/19/22 after a fall complicated by subdural hematoma.? Patient has history of Parkinson's, dementia, schizophrenia.? Patient is poor historian.? According to EMS, patient fell from bed around 06:15.? The staff link labs, EMS was informed that the ammonia level is elevated.? Patient takes lactulose 8 times a day.? According to [facility] chart, patient is independent with transfers and toileting at baseline but falls often.? Patient complaining of scalp pain, patient does have a large hematoma in the back, no laceration, no active bleeding .?? Labs showed H&H of 9.8 in 26.6, platelets 78, INR 1.2, BUN 29, creatinine 1.95, albumin 3.2 Normal LFTs. Ammonia level was 102 on admission and repeat this morning was 149 Pt was admitted and continued on Lactulose and Rifaximin. Pt is unable to give a meaningful hx. Hx obtained from medical records and past consultation notes by Dr Roth: The patient states he used to drink alcohol heavily, but quit 12 years ago. There is a history of drug abuse too and he is reportedly abstinent now.? There has been no reported GI bleeding or history of ascites . IMAGING STUDIES: 02/20/[address] SCAN SHOWED: Stable small right tentorial subdural hemorrhage. Deep white matter and periventricular hypoattenuation, nonspecific; most likely sequela of chronic microvascular angiopathy ischemia. 11/2020 ABD US SHOWED: LIVER: Markedly increased echogenicity limiting assessment. No gross focal lesion The liver contour is normal. No focal hepatic lesion. There is no intrahepatic biliary duct dilatation seen. GALLBLADDER: Normal. The gallbladder is physiologically distended without evidence of stones, sludge, polyps, wall thickening or pericholecystic fluid. Review of Systems Review of Systems: Pt appears confused and unable to obtain ROS Neurologic: Reports confusion Psychiatric: Psychiatric: Reports confusion [facility] Past Medical History Medical History Ataxia Dementia Diabetes Drug abuse, cocaine type Essential tremor ETOH abuse Orthostatic hypotension Parkinson disease Schizophrenia Family History Family History Other Hypertension Social History Social History Household Members: Unknown / Unable to assess Household Members Other:: Other residents Housing: Other Housing Other:: [facility] Do you presently have visiting nurse or other home services: Yes Unable to assess alcohol history related to: Unable to respond Alcohol intake: former Patient Tobacco Use Status: Former Tobacco user Cigarettes Per Day: 1 Second Hand Smoke Exposure: No Use of substances other than those prescribed or required for medical reasons: No Currently Displaying Signs/Symptoms of Drug Intoxication Withdrawal: No Spiritual Healthcare Practices: unable to assess Worship Healthcare Practices: unable to assess Cultural Healthcare Practices: unable to assess Advance Directives: No Advance Directives Information Provided: No Do you have thoughts of harming others: None Do you have a plan to hurt others: No Plan Recently lost weight without trying: Unsure Eating poorly because of decreased appetite: No Nutrition Risks: No Nutritional Risk Poor oral hygiene: No service: No (Conjure) Current occupational status: disabled Meds Allergies Allergy/AdvReac Type Severity Reaction Status Date / Time POLLEN/RAGWEED Allergy Unknown UNKNOWN Uncoded 02/19/22 09:22 Active Medications: Current Medications Amlodipine Besylate (Amlodipine Besylate 10 Mg Tablet) 10 mg PO BEDTIME [facility]; Protocol Last Admin: 02/19/22 20:44 Dose: 10 mg Documented by: Aspirin (Aspirin Enteric Coated 81 Mg Tablet.) 81 mg PO DAILY [facility] Last Admin: 02/20/22 09:31 Dose: 81 mg Documented by: Benztropine Mesylate (Benztropine Mesylate 1 Mg Tablet) 1 mg PO BID [facility] Last Admin: 02/20/22 09:31 Dose: 1 mg Documented by: Carbidopa/Levodopa (Carbidopa/Levodopa 25/100 Tablet) 1 tab PO QID [facility] Last Admin: 02/20/22 09:31 Dose: 1 tab Documented by: Docusate Sodium (Docusate Sodium 100 Mg Capsule) 100 mg PO DAILY PRN PRN Reason: Constipation Furosemide (Furosemide 40 Mg Tablet) 40 mg PO DAILY [facility]; Protocol Last Admin: 02/20/22 09:31 Dose: 40 mg Documented by: Gabapentin (Gabapentin 600 Mg Tablet) 1,200 mg PO TID [facility] Last Admin: 02/20/22 09:31 Dose: 1,200 mg Documented by: Insulin Glargine (Insulin Glargine,Hum.Rec.Anlog 100 Unit/Ml 10 Ml Vial) 17 unit SUBCUT BID [facility] Last Admin: 02/20/22 09:31 Dose: 17 unit Documented by: Insulin Human Lispro (Insulin Lispro 100 Unit/Ml 3 Ml Vial) 0 unit SUBCUT QIDACHS [facility]; Protocol Last Admin: 02/20/22 11:23 Dose: Not Given Documented by: Lactulose (Lactulose 20 Gm/30 Ml Solution) 40 gm PO 8XD [facility] Last Admin: 02/20/22 11:18 Dose: 40 gm Documented by: Levothyroxine Sodium (Levothyroxine Sodium 25 Mcg Tablet) 25 mcg PO DAILY@0600 [facility] Last Admin: 02/20/22 06:29 Dose: 25 mcg Documented by: Lisinopril (Lisinopril 40 Mg Tablet) 40 mg PO DAILY [facility]; Protocol Last Admin: 02/20/22 09:31 Dose: 40 mg Documented by: Loratadine (Loratadine 10 Mg Tablet) 10 mg PO DAILY [facility] Last Admin: 02/20/22 09:31 Dose: 10 mg Documented by: Metformin HCl (Metformin Hcl 1,000 Mg Tablet) 1,000 mg PO BIDWM [facility] Last Admin: 02/20/22 09:31 Dose: 1,000 mg Documented by: Multivitamins/Vitamin C (Multivitamin Tablet) 1 tab PO DAILY [facility] Last Admin: 02/20/22 09:31 Dose: 1 tab Documented by: Pharmacy Consult (Consult Rx Perform Med Rec) 1 each MISCELLANE ONCE PRN PRN Reason: Consult order Rifaximin (Rifaximin 550 Mg Tablet) 550 mg PO BID [facility] Last Admin: 02/20/22 09:31 Dose: 550 mg Documented by: Senna (Sennosides 8.6 Mg Tablet) 8.6 mg PO DAILY PRN PRN Reason: Constipation Sodium Chloride (0.9 % Sodium Chloride Flush 3 Ml Syringe) 3 ml IVFLUSH QSHIFT [facility] Last Admin: 02/20/22 09:38 Dose: 3 ml Documented by: Tramadol HCl (Tramadol Hcl 50 Mg Tablet) 50 mg PO BID [facility] Last Admin: 02/20/22 09:39 Dose: 50 mg Documented by: Ziprasidone (Ziprasidone 20 Mg Capsule) 20 mg PO DAILY@1800 [facility] Last Admin: 02/19/22 18:30 Dose: 20 mg Documented by: Home Medications Medication Instructions Recorded Confirmed Last Taken Type aspirin 81 mg tablet,delayed 81 mg PO DAILY 11/18/20 02/19/22 Unknown History release benztropine 1 mg tablet 1 mg PO BID 11/18/20 02/19/22 Unknown History carbidopa 25 mg-levodopa 100 mg 1 tab PO QID 11/18/20 02/19/22 Unknown History tablet (Sinemet) fluphenazine decanoate 25 mg/mL 50 mg SUBCUT Q14D 11/18/20 02/19/22 02/05/22 History injection solution loratadine 10 mg tablet 10 mg PO DAILY 11/18/20 02/19/22 Unknown History metformin 1,000 mg tablet 1,000 mg PO BIDWM 11/18/20 02/19/22 Unknown History miconazole nitrate 2 % topical 1 spray TOPICAL BID PRN 11/18/20 02/19/22 Unknown History spray (Lotrimin AF) tramadol 50 mg tablet 50 mg PO BID 11/18/20 02/19/22 Unknown History docusate sodium 100 mg tablet 100 mg PO DAILY PRN 12/10/20 02/19/22 Unknown History insulin detemir U-100 100 unit/mL 25 unit SUBCUT BID 12/10/20 02/19/22 Unknown History (3 mL) subcutaneous pen (Levemir FlexTouch U-100 Insulin) sennosides 8.6 mg tablet (senna) 8.6 mg PO DAILY PRN 12/10/20 02/19/22 Unknown History ziprasidone HCl 20 mg capsule 20 mg PO DAILY@1800 12/10/20 02/19/22 Unknown History amlodipine 10 mg tablet 1 tab PO BEDTIME 02/19/22 02/19/22 Unknown History furosemide 40 mg tablet 1 tab PO DAILY 02/19/22 02/19/22 Unknown History gabapentin 600 mg tablet 2 tab PO TID 02/19/22 02/19/22 Unknown History lactulose 20 gram/30 mL oral 40 g PO 8XD 02/19/22 02/19/22 Unknown History solution levothyroxine 25 mcg tablet 1 tab PO DAILY 02/19/22 02/19/22 Unknown History lisinopril 40 mg tablet 1 tab PO DAILY 02/19/22 02/19/22 Unknown History multivitamin 1 tab PO DAILY 02/19/22 02/19/22 Unknown History rifaximin 550 mg tablet (Xifaxan) 1 tab PO BID 02/19/22 02/19/22 Unknown History Physical Exam Vital Signs: Vital Signs: Last Vital Signs Temp 97.2 F 02/20/22 11:08 Pulse 70 02/20/22 11:08 Resp 20 02/20/22 11:08 BP 176/73 H 02/20/22 11:08 Pulse Ox 98 02/20/22 11:08 BMI result Body Mass Index 34.9 Const: General: no acute distress, confusion and ill appearing Nutritional Appearance: obese Orientation/consciousness: confusion Limitations: no l imitations HEENT: Head: Yes normal to inspection Ears: hearing grossly normal bilaterally Mouth: Normal oral and palatal mucosa present Eyes: Sclerae: sclerae normal Pupils: Equal, round and reactive pupils pres ent Neck: Neck: Yes normal visual inspection Chest: Chest palpation & inspection: normal inspection of the chest Resp: Effort & Inspection: normal respiratory effort Auscultation: clear to auscultation bilaterally Cardio: Palpation: normal PMI Rate: regular rate Rhythm: regular rhythm Heart sounds: S1 normal heart sound present, S2 normal heart sound present and no murmurs GI: Inspection: Yes distended Palpation (GI): Soft to palpation, nontender, No hepatosplenomegaly present and Ascites present Auscultation: normal bowel sounds Rectal Exam - Male: Yes deferred Skin: General skin exam: no rashes or lesions noted Neuro: General: gait normal, moves all extremities and confusion Cranial nerves: Yes Equal, round and reactive pupils present Extrem: General: Yes pedal edema (1+ pitting edema bilaterally) Psych: Appearance: grossly normal Mental Status: mental status grossly normal Results Labs CBC & Chem 7: 02/22/22 05:56 02/22/22 05:56 Labs: Short CBC 02/20/22 Range/Units 07:08 WBC 4.1 L (4.8-10.8) X10*3/uL Hgb 8.1 L (14.0-18.0) g/dl Hct 22.5 L (42.0-52.0) % Plt Count 73 L (160-400) X10*3/uL BMP 02/20/22 07:08 Sodium 143 Potassium 3.9 Chloride 109 H Carbon Dioxide 23 BUN 31 H Creatinine 1.89 H Calcium 9.8 Liver Function 02/20/22 Range/Units 07:08 Total Bilirubin 1.0 (0.0-1.0) mg/dL AST 31 (5-37) U/L ALT 23 (0-40) U/L Alkaline Phosphatase 70 D (39-117) U/L Albumin 2.8 L (3.5-5.0) g/dL Urine 02/19/22 Range/Units 14:55 Urine Color YELLOW Urine Appearance CLEAR Urine pH 6.0 (5.0-8.0) Ur Specific [place] 1.010 (1.005-1.025) Urine Protein 1+ H (NEG-TRACE) MG/DL Urine Glucose (UA) NEG (NEG) MG/DL Assessment and Plan (1) Hyperammonemia: Status: Acute (2) Alcoholic cirrhosis of liver with ascites: Status: Acute Plan 61 YM with Parkinson's, dementia, schizophrenia transferred from [facility] by EMS to [facility] on 02/19/22 after a fall complicated by subdural hematoma.? Labs showed H&H of 9.8 in 26.6, platelets 78, INR 1.2, BUN 29, creatinine 1.95, albumin 3.2 Elevated BUN and Cr levels suggestive of dehydration. Normal LFTs. Ammonia level was 102 on admission. Pt was admitted and continued on Lactulose and Rifaximin and repeat this morning was 149. Physical examination reveals a distended abdomen and due to suspected ascites. RECOMMENDATIONS: 1. Abdominal US to screen for HCC 2. US guided paracentesis and ascitic fluid analysis for cell count, diff (to rule out SBP) and albumin 3. Continue Lactulose and Rifximin 4. Check TSH since pt is on Levothyroxine - added to am labs 5. Continue IV fluids for elevated BUN and Cr 6. Check stool for occult blood to rule out GI bleeding Dr Roth to tomorrow since he has seen the patient in the past Procedures Date of Service Date of Service: 02/20/22
[2022-02-20] MEDS: ondansetron HCL 4 MG/2 ML VIAL IVPUSH (15:35)
[2022-02-20 16:21] LABS: Glucose, Whole Blood 143 mg/dL (60-115)
[2022-02-20] MEDS: Ziprasidone 20 MG CAPSULE PO (17:25)
[2022-02-20] MEDS: Dextrose 5 % and 0.9 % NaCl 1,000 ML 100 ML IVCONT (18:07)
--- NOTE | 2022-02-20 19:22 | PC.NURSE ---
Pt lethargic all shift but arousable. Answers simple questions at times but does not at other times. Slow to answer. Does not always follow commands. Pt laughs periodically at random times. Repos in bed. Denies pain. [place] cath placed on pt. No BM this shift.
[2022-02-20 20:42] LABS: Glucose, Whole Blood 170 mg/dL (60-115)
[2022-02-21] VITALS (9 sets, daily range): BP systolic 185–233; BP diastolic 57–96; PULSE 79–94; RESP 16–22; TEMP 36.6–37.6; O2SAT 94–98
--- NOTE | 2022-02-21 00:05 | PC.NURSE ---
pt's b/p was 217/86. notified.pt medicated with hydralazine 5mg IV.
[2022-02-21] MEDS: Dextrose 5 % and 0.9 % NaCl 1,000 ML 100 ML IVCONT ×3 (03:03→21:37)
[2022-02-21] MEDS: hydrALAZINE HCl 20 MG/ML VIAL 5 MG IVPUSH ×2 (04:24)
--- NOTE | 2022-02-21 04:31 | PC.NURSE ---
pt's B/P remains high at 196/62. notified and another dose of hydralazine 5mg IV ordered and given.
[2022-02-21 05:56] LABS: MANUAL DIFF FLAG NO
[2022-02-21 06:01] LABS: Basophils Percent Auto 0.5 % (0-2); Eosinophils Absolute Auto 0.4 X10*3/uL (0.0-0.4); Eosinophils Percent Auto 9.7 % (0-4); Hematocrit 24.7 % (42.0-52.0); Hemoglobin 8.9 g/dl (14.0-18.0); Imm Gran Abs Auto 0.02 X10*3/uL (0.00-0.03); Imm Gran Pct Auto 0.5 % (0.0-0.4); Lymphocytes Absolute Auto 1.1 X10*3/uL (1.2-4.9); Lymphocytes Percent Auto 25.5 % (20-40); Mean Corpuscular Hemoglobin 30.8 pg (27.0-33.0); Mean Corpuscular Volume 85.5 fL (80.0-98.0); Monocytes Absolute Auto 0.4 X10*3/uL (0.1-1.2); Monocytes Percent Auto 8.6 % (2-11); Neutrophils Absolute Auto 2.4 x10*3/uL (2.0-8.3); Neutrophils Percent Auto 55.2 % (45-73); Red Blood Count 2.89 X10*6/uL (4.60-5.80); Red Cell Distribution Width 15.8 % (11.0-16.0); White Blood Count 4.3 X10*3/uL (4.8-10.8)
[2022-02-21 06:02] LABS: Platelet Count 85 X10*3/uL (160-400)
[2022-02-21 06:07] LABS: Ammonia 167 umol/L (13-55)
[2022-02-21 06:33] LABS: Alanine Aminotransferase 35 U/L (0-40); Alkaline Phosphatase 78 U/L (39-117); Anion Gap 12 (12-20); Aspartate Amino Transferase 34 U/L (5-37); Bilirubin Total 1.2 mg/dL (0.0-1.0); Blood Urea Nitrogen 33 mg/dL (9-16); Calcium 9.7 mg/dL (8.4-10.2); Carbon Dioxide 24 mmol/L (22-29); Chloride 111 mmol/L (96-108); Creatinine Clr Calc Pharmacy 44.6; Estimated Glomerular Filt Rate 37; Glucose Random 187 mg/dL (60-115); Potassium 4.1 mmol/L (3.3-5.1); Sodium 143 mmol/L (135-145); Total Protein 6.1 g/dL (6.5-8.0)
[2022-02-21 07:29] LABS: Glucose, Whole Blood 177 mg/dL (60-115)
--- NOTE | 2022-02-21 08:11 | PC.NURSE ---
Pt lethargic, only opens eyes, nonverbal. BP 190/81. Ammonia level 167. No BM. Dr Moon notified of pt condition. In to see pt. Awaiting new orders
[2022-02-21] MEDS: ondansetron HCL 4 MG/2 ML VIAL IVPUSH (09:19)
[2022-02-21 09:33] LABS: TSH reflex Free T4 3.84 uIU/mL (0.32-4.0)
[2022-02-21 11:06] LABS: Glucose, Whole Blood 212 mg/dL (60-115)
[2022-02-21] MEDS: Lactulose 20 GM/30 ML SOLUTION 200 GM PR ×3 (12:00→22:46)
--- NOTE | 2022-02-21 13:09 | PC.NURSE ---
0940: Pt remains lethargic, will open eyes occasionally when spoken to. Dry heaving when repositioned. BP 233/96 HR 94 O2 sat on room air 97%. IV zofran given. Small amount of secretions from mouth appearing and smelling like stool. Dr Moon notified and in to see pt. NGT inserted to right nare. Portable abdominal xray done. 1200 Lactulose enema ordered and gievn but pt unable to hold much of enema in. Dr Moon notified. Pt with approximately 225ml brown secretions from NGT. Pt status unchanged at this time. HOB elevated.
--- NOTE | 2022-02-21 15:48 | HO.PM.IMPN ---
Subjective Subjective Date of Service: 02/21/22 Interval History: Somnolent /unarousablet Review of Systems Unable to obtain secondary to somnolence Physical Exam Vital Signs: Vital Signs: Last Vital Signs Temp 98.7 F 02/21/22 15:05 Pulse 83 02/21/22 15:05 Resp 16 02/21/22 15:05 BP 185/72 H 02/21/22 15:05 Pulse Ox 97 02/21/22 15:05 BMI result Body Mass Index 34.9 Const: Other: Somnolent but arousable Resp: Other: Clear to auscultation bilaterally no rales rhonchi or wheezes Cardio: Other: No S4; positive S1-S2; no S3 murmurs rubs or gallops GI: Other: Soft nontender nondistended with normoactive bowel sounds Neuro: Other: Cranial nerves 2-12 were grossly intact as tested. Motor is 5/5 all extremities sensation is intact. Cognition is at his baseline Extrem: Other: No edema bilaterally Objective Data Active Medications Amlodipine Besylate (Amlodipine Besylate 10 Mg Tablet) 10 mg PO BEDTIME [facility]; Protocol Last Admin: 02/20/22 20:25 Dose: Not Given Documented by: KATLYN Non-Admin Reason: NPO Aspirin (Aspirin Enteric Coated 81 Mg Tablet.Dr) 81 mg PO DAILY [facility] Last Admin: 02/21/22 08:38 Dose: Not Given Documented by: GARY Non-Admin Reason: NPO Benztropine Mesylate (Benztropine Mesylate 1 Mg Tablet) 1 mg PO BID [facility] Last Admin: 02/21/22 08:38 Dose: Not Given Documented by: GARY Non-Admin Reason: NPO Carbidopa/Levodopa (Carbidopa/Levodopa 25/100 Tablet) 1 tab PO QID [facility] Last Admin: 02/21/22 12:45 Dose: Not Given Documented by: GARY Non-Admin Reason: NPO Docusate Sodium (Docusate Sodium 100 Mg Capsule) 100 mg PO DAILY PRN PRN Reason: Constipation Furosemide (Furosemide 40 Mg Tablet) 40 mg PO DAILY [facility]; Protocol Last Admin: 02/21/22 08:38 Dose: Not Given Documented by: GARY Non-Admin Reason: NPO Gabapentin (Gabapentin 600 Mg Tablet) 1,200 mg PO TID [facility] Last Admin: 02/21/22 14:24 Dose: Not Given Documented by: GARY Non-Admin Reason: NPO Dextrose/Sodium Chloride (D5ns) 1,000 mls @ 100 mls/hr IVCONT .Q10H [facility] Last Admin: 02/21/22 12:47 Dose: 100 mls/hr Documented by: GARY Insulin Glargine (Insulin Glargine,Hum.Rec.Anlog 100 Unit/Ml 10 Ml Vial) 17 unit SUBCUT BID [facility] Last Admin: 02/21/22 08:51 Dose: Not Given Documented by: GARY Non-Admin Reason: NPO Insulin Human Lispro (Insulin Lispro 100 Unit/Ml 3 Ml Vial) 0 unit SUBCUT QIDACHS [facility]; Protocol Last Admin: 02/21/22 12:21 Dose: Not Given Documented by: GARY Non-Admin Reason: NPO Lactulose (Lactulose 20 Gm/30 Ml Solution) [address] Q6H [facility] Last Admin: 02/21/22 12:00 Dose: 200 gm Documented by: GARY Levothyroxine Sodium (Levothyroxine Sodium 25 Mcg Tablet) 25 mcg PO DAILY@0600 [facility] Last Admin: 02/21/22 05:40 Dose: Not Given Documented by: ODRISJose M Non-Admin Reason: NPO Lisinopril (Lisinopril 40 Mg Tablet) 40 mg PO DAILY [facility]; Protocol Last Admin: 02/21/22 08:52 Dose: Not Given Documented by: GARY Non-Admin Reason: NPO Loratadine (Loratadine 10 Mg Tablet) 10 mg PO DAILY [facility] Last Admin: 02/21/22 08:52 Dose: Not Given Documented by: GARY Non-Admin Reason: NPO Metformin HCl (Metformin Hcl 1,000 Mg Tablet) 1,000 mg PO BIDWM [facility] Last Admin: 02/21/22 08:38 Dose: Not Given Documented by: GARY Non-Admin Reason: NPO Multivitamins/Vitamin C (Multivitamin Tablet) 1 tab PO DAILY [facility] Last Admin: 02/21/22 08:52 Dose: Not Given Documented by: GARY Non-Admin Reason: NPO Ondansetron HCl (Ondansetron Hcl 4 Mg/2 Ml Vial) 4 mg IVPUSH Q4H PRN PRN Reason: Nausea and Vomiting Last Admin: 02/21/22 09:19 Dose: 4 mg Documented by: GARY Pharmacy Consult (Consult Rx Perform Med Rec) 1 each MISCELLANE ONCE PRN PRN Reason: Consult order Rifaximin (Rifaximin 550 Mg Tablet) 550 mg PO BID [facility] Last Admin: 02/21/22 08:52 Dose: Not Given Documented by: GARY Non-Admin Reason: NPO Senna (Sennosides 8.6 Mg Tablet) 8.6 mg PO DAILY PRN PRN Reason: Constipation Sodium Chloride (0.9 % Sodium Chloride Flush 3 Ml Syringe) 3 ml IVFLUSH QSHIFT [facility] Last Admin: 02/21/22 07:03 Dose: Not Given Documented by: GARY Non-Admin Reason: IV Running Tramadol HCl (Tramadol Hcl 50 Mg Tablet) 50 mg PO BID [facility] Last Admin: 02/21/22 08:52 Dose: Not Given Documented by: GARY Non-Admin Reason: NPO Ziprasidone (Ziprasidone 20 Mg Capsule) 20 mg PO DAILY@1800 [facility] Last Admin: 02/20/22 17:25 Dose: 20 mg Documented by: GARY Labs CBC & Chem 7: 02/21/22 05:44 02/21/22 05:43 Labs: Laboratory Results - last 24 hr 02/20/22 02/20/22 02/21/22 15:34 19:51 05:43 MCV MCH MCHC RDW Plt Count MPV Immature Gran % (Auto) Neut % (Auto) Lymph % (Auto) [place] % (Auto) Eos % (Auto) Baso % (Auto) Lymph # (Auto) [place] # (Auto) Eos # (Auto) Baso # (Auto) Abs Immat Gran (auto) Absolute Neuts (auto) Absolute Nucleated RBC Nucleated RBC % (auto) Anion Gap 12 Estim Creat Clear Calc 44.6 Estimated GFR 37 POC Glucose 143 H 170 H Random Glucose 187 H Calcium 9.7 Total Bilirubin 1.2 H AST 34 ALT 35 Alkaline Phosphatase 78 Ammonia Total Protein 6.1 L Albumin 3.0 L TSH 02/21/22 02/21/22 02/21/22 05:43 05:44 06:47 MCV 85.5 MCH 30.8 MCHC 36.0 RDW 15.8 Plt Count 85 L MPV 10.0 Immature Gran % (Auto) 0.5 H Neut % (Auto) 55.2 Lymph % (Auto) 25.5 [place] % (Auto) 8.6 Eos % (Auto) 9.7 H Baso % (Auto) 0.5 Lymph # (Auto) 1.1 L [place] # (Auto) 0.4 Eos # (Auto) 0.4 Baso # (Auto) 0.0 Abs Immat Gran (auto) 0.02 Absolute Neuts (auto) 2.4 Absolute Nucleated RBC 0.000 Nucleated RBC % (auto) 0.0 Anion Gap Estim Creat Clear Calc Estimated GFR POC Glucose 177 H Random Glucose Calcium Total Bilirubin AST ALT Alkaline Phosphatase Ammonia 167 H Total Protein Albumin TSH 02/21/22 02/21/22 08:38 11:02 MCV MCH MCHC RDW Plt Count MPV Immature Gran % (Auto) Neut % (Auto) Lymph % (Auto) [place] % (Auto) Eos % (Auto) Baso % (Auto) Lymph # (Auto) [place] # (Auto) Eos # (Auto) Baso # (Auto) Abs Immat Gran (auto) Absolute Neuts (auto) Absolute Nucleated RBC Nucleated RBC % (auto) Anion Gap Estim Creat Clear Calc Estimated GFR POC Glucose 212 H Random Glucose Calcium Total Bilirubin AST ALT Alkaline Phosphatase Ammonia Total Protein Albumin TSH 3.84 Assessment and Plan (1) Intracranial hemorrhage, subdural: Status: Acute (2) Parkinson disease: Status: Acute (3) Hyperammonemia: Status: Acute Plan 61-year-old male with known history of dementia Parkinson's disease and schizophrenia who was a long-term resident at [facility] presents with concerns for elevated ammonia level. Staff noted he fell out of bed this morning hitting his head; however no mental status changes was sent for high ammonia. In the emergency room a CT scan of the head was done which demonstrated a subdural hematoma. CT scan was repeated 02/20 without changes. This a.m. patient more obtunded; vomited brown liquid.NGT placed. 1.SUbdural hematoma -repeated this am -ammonia elevated...rectal lactulose 2. Parkinson's disease -continue all outpatient therapies as ordered 3. Hyperammonemia -continue lactulose rectally -follow-up ammonia level 167 with changes in MS -US did not demonstrate ascities...paracentesis cancelled 4.DMII -continue metformin -add this broke correctional scale -to avoid behavior issues, patient will be fed a regular diet as at [facility] there are no dietary restrictions Full code Boots Patient will require 2 additional midnight going forward to to normalize ammonia levels Quality Stroke Does the patient have a stroke diagnosis?: No VTE Prior VTE?: No VTE Risk Level:: Medical - moderate - high VTE Device Contraindication: N/A - Device Ordered VTE Drug Contraindication: Treatment Not Indicated
[2022-02-21 15:59] LABS: Glucose, Whole Blood 242 mg/dL (60-115)
[2022-02-21] MEDS: Insulin Lispro 100 UNIT/ML 3 ML VIAL SUBCUT ×2 (16:26→21:35)
--- NOTE | 2022-02-21 18:07 | PC.NURSE ---
Pt remians mostly unresponsive, opened eyes when repositioned. BP remains elevated. Rectal tube inserted per MD order. Lactulose given via rectal tube and clamped with pending efect. NGT draining brwon with a small tint of red. Dr Moon aware. No further orders at this time
--- NOTE | 2022-02-21 18:43 | PC.NURSE ---
Stool beginning to drain into rectal tube. Some soft brown stool leaked around tube. Cleaned and repositioned
[2022-02-21 20:52] LABS: Glucose, Whole Blood 229 mg/dL (60-115)
[2022-02-22] VITALS (7 sets, daily range): BP systolic 170–202; BP diastolic 65–95; PULSE 87–99; RESP 16–20; TEMP 36.2–37.4; O2SAT 90–98
[2022-02-22] MEDS: Lactulose 20 GM/30 ML SOLUTION 200 GM PR ×3 (04:45→17:06)
[2022-02-22 06:02] LABS: MANUAL DIFF FLAG NO
[2022-02-22 06:05] LABS: Basophils Percent Auto 0.6 % (0-2); Eosinophils Absolute Auto 0.2 X10*3/uL (0.0-0.4); Eosinophils Percent Auto 3.2 % (0-4); Hematocrit 24.5 % (42.0-52.0); Hemoglobin 8.9 g/dl (14.0-18.0); Imm Gran Abs Auto 0.02 X10*3/uL (0.00-0.03); Imm Gran Pct Auto 0.4 % (0.0-0.4); Lymphocytes Percent Auto 19.6 % (20-40); Mean Corpuscular HGB Conc 36.3 g/dl (31.0-36.0); Mean Corpuscular Hemoglobin 31.6 pg (27.0-33.0); Mean Corpuscular Volume 86.9 fL (80.0-98.0); Monocytes Absolute Auto 0.4 X10*3/uL (0.1-1.2); Monocytes Percent Auto 8.9 % (2-11); Neutrophils Absolute Auto 3.3 x10*3/uL (2.0-8.3); Neutrophils Percent Auto 67.3 % (45-73); Red Blood Count 2.82 X10*6/uL (4.60-5.80)
[2022-02-22 06:07] LABS: Platelet Count 83 X10*3/uL (160-400)
[2022-02-22] MEDS: Dextrose 5 % and 0.9 % NaCl 1,000 ML 100 ML IVCONT ×2 (06:19→15:56)
[2022-02-22 06:20] LABS: Ammonia 127 umol/L (13-55)
[2022-02-22 06:27] LABS: Alanine Aminotransferase 38 U/L (0-40); Alkaline Phosphatase 77 U/L (39-117); Anion Gap 13 (12-20); Aspartate Amino Transferase 38 U/L (5-37); Bilirubin Total 1.5 mg/dL (0.0-1.0); Blood Urea Nitrogen 36 mg/dL (9-16); Calcium 9.5 mg/dL (8.4-10.2); Carbon Dioxide 25 mmol/L (22-29); Chloride 114 mmol/L (96-108); Creatinine Clr Calc Pharmacy 47.6; Estimated Glomerular Filt Rate 40; Glucose Random 254 mg/dL (60-115); Potassium 3.6 mmol/L (3.3-5.1); Sodium 148 mmol/L (135-145); Total Protein 6.1 g/dL (6.5-8.0)
[2022-02-22 07:29] LABS: Glucose, Whole Blood 255 mg/dL (60-115)
[2022-02-22] MEDS: Insulin Lispro 100 UNIT/ML 3 ML VIAL SUBCUT ×4 (08:17→20:05)
[2022-02-22] MEDS: Insulin Glargine,Hum.rec.anlog 100 UNIT/ML 10 ML VIAL 17 UNIT SUBCUT ×2 (10:16→20:05)
[2022-02-22 11:31] LABS: Glucose, Whole Blood 243 mg/dL (60-115)
--- NOTE | 2022-02-22 13:20 | MHC.CM.PN ---
OFELIA AT [place] UPDATED WITH [facility] IN [facility]. NEW RECTAL TUBE, IV PROTONIX, NOT EATING, AND NEEDS HIS AMMONIA LEVEL TO [place].
--- NOTE | 2022-02-22 15:13 | HO.PM.IMPN ---
Subjective Subjective Date of Service: 02/22/22 Interval History: More alert this a.m.; tolerating lactulose rectally. NG tube draining dark black liquid Review of Systems Unable to obtain secondary to somnolence Physical Exam Vital Signs: Vital Signs: Last Vital Signs Temp 99.0 F 02/22/22 11:20 Pulse 92 02/22/22 11:20 Resp 17 02/22/22 11:20 BP 195/80 H 02/22/22 11:20 Pulse Ox 95 02/22/22 11:20 BMI result Body Mass Index 34.9 Const: Other: Somnolent but arousable HEENT: Other: NG-tube right naris Resp: Other: Clear to auscultation bilaterally no rales rhonchi or wheezes Cardio: Other: No S4; positive S1-S2; no S3 murmurs rubs or gallops GI: Other: Soft nontender nondistended with normoactive bowel sounds Neuro: Other: Cranial nerves 2-12 were grossly intact as tested. Motor is 5/5 all extremities sensation is intact. Cognition is at his baseline Extrem: Other: No edema bilaterally Objective Data Active Medications Amlodipine Besylate (Amlodipine Besylate 10 Mg Tablet) 10 mg PO BEDTIME [facility]; Protocol Last Admin: 02/21/22 21:35 Dose: Not Given Documented by: KATLYN Non-Admin Reason: NPO Aspirin (Aspirin Enteric Coated 81 Mg Tablet.Dr) 81 mg PO DAILY [facility] Last Admin: 02/22/22 07:06 Dose: Not Given Documented by: ROYCE Non-Admin Reason: NPO Benztropine Mesylate (Benztropine Mesylate 1 Mg Tablet) 1 mg PO BID [facility] Last Admin: 02/22/22 07:07 Dose: Not Given Documented by: ROYCE Non-Admin Reason: NPO Carbidopa/Levodopa (Carbidopa/Levodopa 25/100 Tablet) 1 tab PO QID [facility] Last Admin: 02/22/22 13:16 Dose: Not Given Documented by: ROYCE Non-Admin Reason: NPO Docusate Sodium (Docusate Sodium 100 Mg Capsule) 100 mg PO DAILY PRN PRN Reason: Constipation Furosemide (Furosemide 40 Mg Tablet) 40 mg PO DAILY [facility]; Protocol Last Admin: 02/22/22 07:07 Dose: Not Given Documented by: ROYCE Non-Admin Reason: NPO Gabapentin (Gabapentin 600 Mg Tablet) 1,200 mg PO TID [facility] Last Admin: 02/22/22 13:16 Dose: Not Given Documented by: ROYCE Non-Admin Reason: NPO Dextrose/Sodium Chloride (D5ns) 1,000 mls @ 100 mls/hr IVCONT .Q10H [facility] Last Admin: 02/22/22 06:19 Dose: 100 mls/hr Documented by: KATLYN Insulin Glargine (Insulin Glargine,Hum.Rec.Anlog 100 Unit/Ml 10 Ml Vial) 17 unit SUBCUT BID [facility] Last Admin: 02/22/22 10:16 Dose: 17 unit Documented by: ROYCE Insulin Human Lispro (Insulin Lispro 100 Unit/Ml 3 Ml Vial) 0 unit SUBCUT QIDACHS [facility]; Protocol Last Admin: 02/22/22 11:50 Dose: 4 unit Documented by: ROYCE Lactulose (Lactulose 20 Gm/30 Ml Solution) 200 gm [place] Q6H [facility] Last Admin: 02/22/22 11:49 Dose: 200 gm Documented by: ROYCE Levothyroxine Sodium (Levothyroxine Sodium 25 Mcg Tablet) 25 mcg PO DAILY@0600 [facility] Last Admin: 02/22/22 05:33 Dose: Not Given Documented by: KATLYN Non-Admin Reason: NPO Lisinopril (Lisinopril 40 Mg Tablet) 40 mg PO DAILY [facility]; Protocol Last Admin: 02/22/22 07:07 Dose: Not Given Documented by: ROYCE Non-Admin Reason: NPO Loratadine (Loratadine 10 Mg Tablet) 10 mg PO DAILY [facility] Last Admin: 02/22/22 07:07 Dose: Not Given Documented by: ROYCE Non-Admin Reason: NPO Metformin HCl (Metformin Hcl 1,000 Mg Tablet) 1,000 mg PO BIDWM [facility] Last Admin: 02/22/22 07:06 Dose: Not Given Documented by: ROYCE Non-Admin Reason: NPO Multivitamins/Vitamin C (Multivitamin Tablet) 1 tab PO DAILY [facility] Last Admin: 02/22/22 07:07 Dose: Not Given Documented by: ROYCE Non-Admin Reason: NPO Ondansetron HCl (Ondansetron Hcl 4 Mg/2 Ml Vial) 4 mg IVPUSH Q4H PRN PRN Reason: Nausea and Vomiting Last Admin: 02/21/22 09:19 Dose: 4 mg Documented by: GARY Pharmacy Consult (Consult Rx Perform Med Rec) 1 each MISCELLANE ONCE PRN PRN Reason: Consult order Rifaximin (Rifaximin 550 Mg Tablet) 550 mg PO BID [facility] Last Admin: 02/22/22 07:07 Dose: Not Given Documented by: ROYCE Non-Admin Reason: NPO Senna (Sennosides 8.6 Mg Tablet) 8.6 mg PO DAILY PRN PRN Reason: Constipation Sodium Chloride (0.9 % Sodium Chloride Flush 3 Ml Syringe) 3 ml IVFLUSH QSHIFT [facility] Last Admin: 02/22/22 14:10 Dose: Not Given Documented by: ROYCE Non-Admin Reason: IV Running Tramadol HCl (Tramadol Hcl 50 Mg Tablet) 50 mg PO BID [facility] Last Admin: 02/22/22 07:08 Dose: Not Given Documented by: ROYCE Non-Admin Reason: NPO Ziprasidone (Ziprasidone 20 Mg Capsule) 20 mg PO DAILY@1800 [facility] Last Admin: 02/21/22 16:27 Dose: Not Given Documented by: GARY Non-Admin Reason: NPO Labs CBC & Chem 7: 02/22/22 05:56 02/22/22 05:56 Labs: Laboratory Results - last 24 hr 02/21/22 02/21/22 02/22/22 15:54 20:49 05:56 MCV 86.9 MCH 31.6 MCHC 36.3 H RDW 16.0 Plt Count 83 L MPV 10.0 Immature Gran % (Auto) 0.4 Neut % (Auto) 67.3 Lymph % (Auto) 19.6 L [place] % (Auto) 8.9 Eos % (Auto) 3.2 Baso % (Auto) 0.6 Lymph # (Auto) 1.0 L [place] # (Auto) 0.4 Eos # (Auto) 0.2 Baso # (Auto) 0.0 Abs Immat Gran (auto) 0.02 Absolute Neuts (auto) 3.3 Absolute Nucleated RBC 0.000 Nucleated RBC % (auto) 0.0 Anion Gap Estim Creat Clear Calc Estimated GFR POC Glucose 242 H 229 H Random Glucose Calcium Total Bilirubin AST ALT Alkaline Phosphatase Ammonia Total Protein Albumin 02/22/22 02/22/22 02/22/22 05:56 05:56 07:25 MCV MCH MCHC RDW Plt Count MPV Immature Gran % (Auto) Neut % (Auto) Lymph % (Auto) [place] % (Auto) Eos % (Auto) Baso % (Auto) Lymph # (Auto) [place] # (Auto) Eos # (Auto) Baso # (Auto) Abs Immat Gran (auto) Absolute Neuts (auto) Absolute Nucleated RBC Nucleated RBC % (auto) Anion Gap 13 Estim Creat Clear Calc 47.6 Estimated GFR 40 POC Glucose 255 H Random Glucose 254 H D Calcium 9.5 Total Bilirubin 1.5 H AST 38 H ALT 38 Alkaline Phosphatase 77 Ammonia 127 H Total Protein 6.1 L Albumin 3.0 L 02/22/22 11:18 MCV MCH MCHC RDW Plt Count MPV Immature Gran % (Auto) Neut % (Auto) Lymph % (Auto) [place] % (Auto) Eos % (Auto) Baso % (Auto) Lymph # (Auto) [place] # (Auto) Eos # (Auto) Baso # (Auto) Abs Immat Gran (auto) Absolute Neuts (auto) Absolute Nucleated RBC Nucleated RBC % (auto) Anion Gap Estim Creat Clear Calc Estimated GFR POC Glucose 243 H Random Glucose Calcium Total Bilirubin AST ALT Alkaline Phosphatase Ammonia Total Protein Albumin Assessment and Plan (1) Intracranial hemorrhage, subdural: Status: Acute (2) Parkinson disease: Status: Acute (3) Hyperammonemia: Status: Acute Plan 61-year-old male with known history of dementia Parkinson's disease and schizophrenia who was a long-term resident at [facility] presents with concerns for elevated ammonia level. Staff noted he fell out of bed this morning hitting his head; however no mental status changes was sent for high ammonia. In the emergency room a CT scan of the head was done which demonstrated a subdural hematoma. CT scan was repeated 02/20 without changes. This a.m. patient more obtunded; vomited brown liquid.NGT placed. 1.SUbdural hematoma -stable; 3rd CT fails to demonstrate subdural -will discuss with Radiology 2. Parkinson's disease -continue all outpatient therapies as ordered 3. Hyperammonemia -continue lactulose rectally -follow-up ammonia level 127...more alert today 4.DMII -hold metformin until NGT D/Cd -add lispro correctional scale -to avoid behavior issues, patient will be fed a regular diet as at [facility] there are no dietary restrictions Full code Boots Patient will require 2 additional midnight going forward to to normalize ammonia levels Quality Stroke Does the patient have a stroke diagnosis?: No VTE Prior VTE?: No VTE Risk Level:: Medical - moderate - high VTE Device Contraindication: N/A - Device Ordered VTE Drug Contraindication: Treatment Not Indicated
[2022-02-22] MEDS: hydrALAZINE HCl 20 MG/ML VIAL 10 MG IVPUSH (15:55)
[2022-02-22 16:52] LABS: Glucose, Whole Blood 221 mg/dL (60-115)
[2022-02-22] MEDS: Pantoprazole Sodium 40 MG/10 ML VIAL IVPUSH (17:04)
[2022-02-22 19:57] LABS: Glucose, Whole Blood 236 mg/dL (60-115)
[2022-02-23] VITALS (8 sets, daily range): BP systolic 168–188; BP diastolic 52–90; PULSE 77–91; RESP 14–20; TEMP 36.2–37.2; O2SAT 97–98
[2022-02-23] MEDS: 0.9 % Sodium Chloride Flush 3 ML SYRINGE IVFLUSH (00:58)
[2022-02-23] MEDS: Lactulose 20 GM/30 ML SOLUTION 200 GM PR ×2 (00:59→05:44)
[2022-02-23] MEDS: Dextrose 5 % and 0.9 % NaCl 1,000 ML 100 ML IVCONT (01:22)
--- NOTE | 2022-02-23 03:00 | MHC.PIE ---
P.NG TUBE OUT I.NOTED THAT PT PULLED OUT NG TUBE.REPLACED BY ICU NURSE WITH DIFFICULTY PT WAS RESISTIVE TO PLACEMENT.CXR REVEALED NG COILED IN ESOPHAGUS.REMOVED. UPDATED.UPDATED THAT PT IS ALERT AND FIGHTING TO REPLACE TUBE. 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 E.CONT TO MONITOR.
[2022-02-23] MEDS: Pantoprazole Sodium 40 MG/10 ML VIAL IVPUSH ×2 (06:04→16:02)
[2022-02-23 07:21] LABS: Glucose, Whole Blood 245 mg/dL (60-115)
[2022-02-23 08:20] LABS: MANUAL DIFF FLAG NO
[2022-02-23 08:24] LABS: Basophils Percent Auto 0.7 % (0-2); Eosinophils Absolute Auto 0.1 X10*3/uL (0.0-0.4); Eosinophils Percent Auto 2.3 % (0-4); Hematocrit 24.9 % (42.0-52.0); Hemoglobin 8.8 g/dl (14.0-18.0); Imm Gran Abs Auto 0.02 X10*3/uL (0.00-0.03); Imm Gran Pct Auto 0.3 % (0.0-0.4); Lymphocytes Absolute Auto 1.2 X10*3/uL (1.2-4.9); Lymphocytes Percent Auto 20.1 % (20-40); Mean Corpuscular HGB Conc 35.3 g/dl (31.0-36.0); Mean Corpuscular Hemoglobin 31.3 pg (27.0-33.0); Mean Corpuscular Volume 88.6 fL (80.0-98.0); Mean Platelet Volume 9.9 fL (9.4-12.4); Monocytes Absolute Auto 0.6 X10*3/uL (0.1-1.2); Monocytes Percent Auto 9.2 % (2-11); Neutrophils Absolute Auto 4.1 x10*3/uL (2.0-8.3); Neutrophils Percent Auto 67.4 % (45-73); Red Blood Count 2.81 X10*6/uL (4.60-5.80); Red Cell Distribution Width 16.5 % (11.0-16.0); White Blood Count 6.1 X10*3/uL (4.8-10.8)
[2022-02-23 08:25] LABS: Platelet Count 76 X10*3/uL (160-400)
[2022-02-23 08:32] LABS: Ammonia 132 umol/L (13-55)
[2022-02-23 08:47] LABS: Alanine Aminotransferase 39 U/L (0-40); Albumin Level 2.9 g/dL (3.5-5.0); Alkaline Phosphatase 71 U/L (39-117); Anion Gap 11 (12-20); Aspartate Amino Transferase 42 U/L (5-37); Bilirubin Total 1.7 mg/dL (0.0-1.0); Blood Urea Nitrogen 38 mg/dL (9-16); Carbon Dioxide 23 mmol/L (22-29); Chloride 121 mmol/L (96-108); Creatinine Clr Calc Pharmacy 51.5; Estimated Glomerular Filt Rate 44; Glucose Random 273 mg/dL (60-115); Potassium 3.4 mmol/L (3.3-5.1); Sodium 152 mmol/L (135-145); Total Protein 5.9 g/dL (6.5-8.0)
[2022-02-23] MEDS: Dextrose 5 % 1,000 ML 125 ML IVCONT ×2 (11:10→17:33)
[2022-02-23] MEDS: Insulin Glargine,Hum.rec.anlog 100 UNIT/ML 10 ML VIAL 17 UNIT SUBCUT ×2 (11:11→21:44)
[2022-02-23 11:20] LABS: Glucose, Whole Blood 233 mg/dL (60-115)
[2022-02-23] MEDS: Gabapentin 600 MG TABLET 1200 MG PO ×2 (11:36→14:19)
[2022-02-23] MEDS: Carbidopa/Levodopa 25/100 TABLET 1 TAB PO ×2 (11:36→16:03)
[2022-02-23] MEDS: Multivitamin TABLET 1 TAB PO (11:36)
[2022-02-23] MEDS: rifAXIMin 550 MG TABLET PO (11:36)
[2022-02-23] MEDS: traMADoL HCL 50 MG TABLET PO (11:37)
[2022-02-23] MEDS: Aspirin Enteric Coated 81 MG TABLET.DR PO (11:38)
[2022-02-23] MEDS: Loratadine 10 MG TABLET PO (11:38)
[2022-02-23] MEDS: Benztropine Mesylate 1 MG TABLET PO (11:38)
--- NOTE | 2022-02-23 13:15 | HO.PM.IMPN ---
Subjective Subjective Date of Service: 02/23/22 Interval History: patient awake asking for water, denies abdominal pain, given bedside swallow eval patient able to drink water without difficulty, patient accidentally pulled NG last night, ammonia remains elevated, had moderate brown stool overnight. 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 Neck supple no JVD. CVS regular rate rhythm, Respiratory lungs clear to auscultation, no respiratory distress, no wheeze, no rhonchi. Gastrointestinal abdomen soft, nontender, bowel sounds audible Extremities no edema. Neuro patient moving all 4 extremity, speech clear bilateral hand tremors Skin no rash Objective Data Active Medications Amlodipine Besylate (Amlodipine Besylate 10 Mg Tablet) 10 mg PO BEDTIME ON LICENSE OF [facility]; Protocol Last Admin: 02/22/22 18:44 Dose: Not Given Documented by: ROYCE Non-Admin Reason: NPO Aspirin (Aspirin Enteric Coated 81 Mg Tablet.) 81 mg PO DAILY ON LICENSE OF [facility] Last Admin: 02/23/22 11:38 Dose: 81 mg Documented by: THAIS Benztropine Mesylate (Benztropine Mesylate 1 Mg Tablet) 1 mg PO BID ON LICENSE OF [facility] Last Admin: 02/23/22 11:38 Dose: 1 mg Documented by: THAIS Carbidopa/Levodopa (Carbidopa/Levodopa 25/100 Tablet) 1 tab PO QID ON LICENSE OF [facility] Last Admin: 02/23/22 11:36 Dose: 1 tab Documented by: THAIS Docusate Sodium (Docusate Sodium 100 Mg Capsule) 100 mg PO DAILY PRN PRN Reason: Constipation Gabapentin (Gabapentin 600 Mg Tablet) 1,200 mg PO TID ON LICENSE OF [facility] Last Admin: 02/23/22 11:36 Dose: 1,200 mg Documented by: THAIS Hydralazine HCl (Hydralazine Hcl 20 Mg/Ml Vial) 10 mg IVPUSH Q4H PRN; Protocol PRN Reason: SBP>180 Last Admin: 02/22/22 15:55 Dose: 10 mg Documented by: DEANN-MCLEP Dextrose (D5w) 1,000 mls @ 125 mls/hr IVCONT .Q8H ON LICENSE OF [facility] Last Admin: 02/23/22 11:10 Dose: 125 mls/hr Documented by: THAIS Insulin Glargine (Insulin Glargine,Hum.Rec.Anlog 100 Unit/Ml 10 Ml Vial) 17 unit SUBCUT BID ON LICENSE OF [facility] Last Admin: 02/23/22 11:11 Dose: 17 unit Documented by: THAIS Insulin Human Lispro (Insulin Lispro 100 Unit/Ml 3 Ml Vial) 0 unit SUBCUT QIDACHS ON LICENSE OF [facility]; Protocol Last Admin: 02/23/22 11:16 Dose: Not Given Documented by: THAIS Non-Admin Reason: NPO Lactulose (Lactulose 20 Gm/30 Ml Solution) 40 gm PO TID ON LICENSE OF [facility] Levothyroxine Sodium (Levothyroxine Sodium 25 Mcg Tablet) 25 mcg PO DAILY@0600 ON LICENSE OF [facility] Last Admin: 02/23/22 06:04 Dose: Not Given Documented by: GALINA Non-Admin Reason: NPO Lisinopril (Lisinopril 40 Mg Tablet) 40 mg PO DAILY ON LICENSE OF [facility]; Protocol Last Admin: 02/23/22 11:48 Dose: Not Given Documented by: THAIS Non-Admin Reason: hydralizine given Loratadine (Loratadine 10 Mg Tablet) 10 mg PO DAILY ON LICENSE OF [facility] Last Admin: 02/23/22 11:38 Dose: 10 mg Documented by: THAIS Metformin HCl (Metformin Hcl 1,000 Mg Tablet) 1,000 mg PO BIDWM ON LICENSE OF [facility] Last Admin: 02/23/22 11:16 Dose: Not Given Documented by: THAIS Non-Admin Reason: NPO Multivitamins/Vitamin C (Multivitamin Tablet) 1 tab PO DAILY ON LICENSE OF [facility] Last Admin: 02/23/22 11:36 Dose: 1 tab Documented by: THAIS Ondansetron HCl (Ondansetron Hcl 4 Mg/2 Ml Vial) 4 mg IVPUSH Q4H PRN PRN Reason: Nausea and Vomiting Last Admin: 02/21/22 09:19 Dose: 4 mg Documented by: GARY Pantoprazole Sodium (Pantoprazole Sodium 40 Mg/10 Ml Vial) 40 mg IVPUSH BID@0630,1630 ON LICENSE OF [facility] Last Admin: 02/23/22 06:04 Dose: 40 mg Documented by: GALINA Pharmacy Consult (Consult Rx Perform Med Rec) 1 each MISCELLANE ONCE PRN PRN Reason: Consult order Rifaximin (Rifaximin 550 Mg Tablet) 550 mg PO BID ON LICENSE OF [facility] Last Admin: 02/23/22 11:36 Dose: 550 mg Documented by: THAIS Senna (Sennosides 8.6 Mg Tablet) 8.6 mg PO DAILY PRN PRN Reason: Constipation Sodium Chloride (0.9 % Sodium Chloride Flush 3 Ml Syringe) 3 ml IVFLUSH QSHIFT ON LICENSE OF [facility] Last Admin: 02/23/22 11:14 Dose: Not Given Documented by: THAIS Non-Admin Reason: IV Running Tramadol HCl (Tramadol Hcl 50 Mg Tablet) 50 mg PO BID ON LICENSE OF [facility] Last Admin: 02/23/22 11:37 Dose: 50 mg Documented by: THAIS Ziprasidone (Ziprasidone 20 Mg Capsule) 20 mg PO DAILY@1800 ON LICENSE OF [facility] Last Admin: 02/22/22 17:06 Dose: Not Given Documented by: ROYCE Non-Admin Reason: NPO Labs CBC & Chem 7: 02/23/22 07:57 02/23/22 07:57 Labs: Laboratory Results - last 24 hr 02/22/22 02/22/22 02/23/22 15:21 19:35 07:12 MCV MCH MCHC RDW Plt Count MPV Immature Gran % (Auto) Neut % (Auto) Lymph % (Auto) [place] % (Auto) Eos % (Auto) Baso % (Auto) Lymph # (Auto) [place] # (Auto) Eos # (Auto) Baso # (Auto) Abs Immat Gran (auto) Absolute Neuts (auto) Absolute Nucleated RBC Nucleated RBC % (auto) Anion Gap Estim Creat Clear Calc Estimated GFR POC Glucose 221 H 236 H 245 H Random Glucose Calcium Total Bilirubin AST ALT Alkaline Phosphatase Ammonia Total Protein Albumin 02/23/22 02/23/22 02/23/22 07:57 07:57 07:57 MCV 88.6 MCH 31.3 MCHC 35.3 RDW 16.5 H Plt Count 76 L MPV 9.9 Immature Gran % (Auto) 0.3 Neut % (Auto) 67.4 Lymph % (Auto) 20.1 [place] % (Auto) 9.2 Eos % (Auto) 2.3 Baso % (Auto) 0.7 Lymph # (Auto) 1.2 [place] # (Auto) 0.6 Eos # (Auto) 0.1 Baso # (Auto) 0.0 Abs Immat Gran (auto) 0.02 Absolute Neuts (auto) 4.1 Absolute Nucleated RBC 0.000 Nucleated RBC % (auto) 0.0 Anion Gap 11 L Estim Creat Clear Calc 51.5 Estimated GFR 44 POC Glucose Random Glucose 273 H Calcium 9.0 Total Bilirubin 1.7 H AST 42 H ALT 39 Alkaline Phosphatase 71 Ammonia 132 H Total Protein 5.9 L Albumin 2.9 L 02/23/22 11:04 MCV MCH MCHC RDW Plt Count MPV Immature Gran % (Auto) Neut % (Auto) Lymph % (Auto) [place] % (Auto) Eos % (Auto) Baso % (Auto) Lymph # (Auto) [place] # (Auto) Eos # (Auto) Baso # (Auto) Abs Immat Gran (auto) Absolute Neuts (auto) Absolute Nucleated RBC Nucleated RBC % (auto) Anion Gap Estim Creat Clear Calc Estimated GFR POC Glucose 233 H Random Glucose Calcium Total Bilirubin AST ALT Alkaline Phosphatase Ammonia Total Protein Albumin Assessment and Plan (1) Intracranial hemorrhage, subdural: Status: Acute (2) Parkinson disease: Status: Acute (3) Hyperammonemia: Status: Acute Plan 61-year-old male with known history of dementia, Parkinson's disease and schizophrenia who is a long-term resident at [facility] presents with concerns for elevated ammonia level. Staff noted he fell out of bed this morning hitting his head; however no mental status changes was sent for high ammonia. In the emergency room a CT scan of the head was done which demonstrated a subdural hematoma. CT scan was repeated 02/20 without changes. 1.Subdural hematoma -stable, repeat CT showed no subdural hematoma, hematocrit stable patient seems to be at baseline level of mentation. 2. Parkinson's disease -continue all outpatient therapies as ordered 3. Hyperammonemia - ammonia level remains elevated 132, patient more awake alert, pulled NG tube, will place on lactulose by mouth, DC per rectum lactulose, follow ammonia level and clinical course 4.DMII - blood sugars in 200 range, to avoid behavior issues will place patient on regular diet resume home medication and continue insulin sliding scale 5. hypernatremia sodium 152 likely due to NPO/ will change IV fluids and push water by mouth since able to tolerate diet. 6. acute kidney injury creatinine 1.95 on admission improved to 1.61 continue IV fluids and push by mouth fluids follow BMP Full code Boots Patient will need continued inpatient hospitalization due to elevated ammonia level requiring frequent doses of lactulose and close monitoring of ammonia level , hypernatremia need IV fluid and close electrolyte monitoring. Quality Stroke Does the patient have a stroke diagnosis?: No VTE Prior VTE?: No VTE Risk Level:: Medical - moderate - high VTE Device Contraindication: N/A - Device Ordered VTE Drug Contraindication: Treatment Not Indicated
[2022-02-23] MEDS: Insulin Lispro 100 UNIT/ML 3 ML VIAL SUBCUT ×3 (13:23→21:44)
[2022-02-23] MEDS: Lactulose 20 GM/30 ML SOLUTION 40 GM PO (14:20)
--- NOTE | 2022-02-23 14:20 | MHC.SL.SWA ---
Speech Pathologist Impression: Oropharyngeal dysphagia Risk of Aspiration Due to: Neurological Condition Dysphasia Diet Status: Downgrade Liquid Consistency and Strategies for Safe Swallow: Liquid Intake Recommendation: Thin Liquid Intake Strategies: Small Sips No Straws Solid Food Consistency: Dietary Recommendations: Chopped/Advanced (NDD3) Additional Modifications to Solid Foods: Patient's history is significant for dementia, Parkinson's disease, schizophrenia, ataxia, essential tremor. [facility] Per staff, at baseline patient was eating regular solids and thin liquids, pills whole. Bedside dysphagia evaluation was ordered after NG tube removed. Patient is edentulous and is without his dentures. Patient presents with prolonged oral phase secondary to weakness and edentulous state. Note mildly delayed swallow trigger and incomplete laryngeal elevation. Recommend CHOPPED/ADVANCED (NDD3) solids with sauce/gravy and THIN liquids(controlled cup sip or via spoon, no straws), pills WHOLE with LIQUID. Patient requires 1:1 assistance feeding. Recommend administer small bites of food moistened with sauce/gravy. Encourage patient to chew food well, alternate bite of food with sip of liquid. Recommend avoid tough, difficult to chew solids, mixed consistencies. Aspiration precautions apply. Diet order updated by GROUP FITNESS INSTRUCTOR. Will continue to follow. Oral Medication Intake: Whole with Liquid Please contact the pharmacy regarding appropriate crushable or liquid drug formulations that are available whenever modified delivery is recommended. Compensatory Strategies and Precautions to be Taken for Safe Swallow: Sitting Upright (90 deg) No Straw Liquids from Cup Liquids from Spoon Small Bites and Sips Alternate Liquids/Solids Rate of Ingestion Change Oral Check Avoid Specific Foods Supervision While Eating and Drinking for Safe Swallow: Total Assistance (1:1) Foods to Avoid: Tough difficult to chew solids, mixed consistencies Swallowing Recommended Treatments: Compens. Strategy Educat. Recommendation for Speech: Inpatient Speech Therapy Manager [place] Clin[employer]/Clinical Fellow: No Supervisory Statement: I have reviewed and agree with the student/clinical fellow's documentation: N/A Speech Language Pathologist: Jonelle Peterson M.A., CCC-GROUP FITNESS INSTRUCTOR
[2022-02-23 15:50] LABS: Glucose, Whole Blood 337 mg/dL (60-115)
[2022-02-23] MEDS: metFORMIN HCl 1,000 MG TABLET 1000 MG PO (16:03)
[2022-02-23] MEDS: hydrALAZINE HCl 20 MG/ML VIAL 10 MG IVPUSH (16:15)
[2022-02-23] MEDS: Ziprasidone 20 MG CAPSULE PO (17:32)
--- NOTE | 2022-02-23 17:57 | PC.NURSE ---
Pt drowsy but arousable to name. Answers questions at times. Oriented to person only. BP 188/79- IV hydralazine given with repeat BP of 168/70. Rectal tube draining orange.
[2022-02-23 19:46] LABS: Glucose, Whole Blood 269 mg/dL (60-115)
[2022-02-24] VITALS (10 sets, daily range): BP systolic 158–192; BP diastolic 54–81; PULSE 70–83; RESP 18–20; TEMP 36.5–36.9; O2SAT 98–99; BMI 34.9
[2022-02-24] MEDS: Dextrose 5 % 1,000 ML 125 ML IVCONT (01:14)
[2022-02-24] MEDS: Pantoprazole Sodium 40 MG/10 ML VIAL IVPUSH ×2 (05:56→17:37)
[2022-02-24 06:20] LABS: Ammonia 168 umol/L (13-55)
[2022-02-24 06:31] LABS: Anion Gap 12 (12-20); Blood Urea Nitrogen 37 mg/dL (9-16); Calcium 8.4 mg/dL (8.4-10.2); Carbon Dioxide 21 mmol/L (22-29); Chloride 117 mmol/L (96-108); Creatinine Clr Calc Pharmacy 53.5; Estimated Glomerular Filt Rate 46; Glucose Random 151 mg/dL (60-115); Sodium 147 mmol/L (135-145)
[2022-02-24 07:41] LABS: Glucose, Whole Blood 130 mg/dL (60-115)
[2022-02-24] MEDS: KCl 40 mEq in 5% Dex/0.45% Sod 40 MEQ/1,000 ML IV.SOLN 125 MEQ IVCONT (08:05)
[2022-02-24] MEDS: Lactulose 20 GM/30 ML SOLUTION 40 GM PO ×4 (08:20→22:32)
[2022-02-24] MEDS: Aspirin Enteric Coated 81 MG TABLET.DR PO (10:52)
[2022-02-24] MEDS: metFORMIN HCl 1,000 MG TABLET 1000 MG PO (10:53)
[2022-02-24] MEDS: lisinopriL 40 MG TABLET PO (10:53)
[2022-02-24] MEDS: Carbidopa/Levodopa 25/100 TABLET 1 TAB PO ×2 (10:54→13:13)
[2022-02-24] MEDS: Multivitamin TABLET 1 TAB PO (10:54)
[2022-02-24] MEDS: Potassium Chloride Packet 20 MEQ PACKET 40 MEQ PO (10:55)
[2022-02-24] MEDS: rifAXIMin 550 MG TABLET PO ×2 (10:57→22:33)
[2022-02-24] MEDS: Benztropine Mesylate 1 MG TABLET PO (10:57)
[2022-02-24] MEDS: Loratadine 10 MG TABLET PO (10:58)
[2022-02-24 11:36] LABS: Glucose, Whole Blood 171 mg/dL (60-115)
--- NOTE | 2022-02-24 12:52 | MHC.CLN ---
CONSULT FOR NGT FEEDINGS RECOMMEND GLUCERNA AT MAX GOAL RATE 75ML/HR WITH 240ML FREE WATER FLUSHES Q 6HRS TO PROVIDE 1800KCALS (23KCALS/KG), 75G PROTEIN (.97G/KG), 2495ML TOTAL WATER FROM FORMULA AND FLUSHES (32ML/KG) START FORMULA AT 20ML/HR AND INCREASE BY 10ML Q 4 HRS UNTIL MAX GOAL IS ACHIEVED MONITOR TOLERANCE, RESIDUALS AND LYTES SEE ALSO FULL CLINICAL NUTRITION ASSESSMENT
[2022-02-24] MEDS: Insulin Lispro 100 UNIT/ML 3 ML VIAL SUBCUT ×2 (13:12→22:32)
[2022-02-24] MEDS: Gabapentin 300 MG CAPSULE 900 MG PO (13:14)
--- NOTE | 2022-02-24 13:50 | HO.PM.IMPN ---
Subjective Subjective Date of Service: 02/25/22 Interval History: Patient noted to be somnolent this morning not arousable by verbal or sternal stimuli , ammonia bumped to 168, potassium dropped to 3.0, sodium 147. Review of Systems Review of Systems: Yes Unobtainable due to mental status Physical Exam Vital Signs: Vital Signs: Last Vital Signs Temp 97.9 F 02/24/22 11:58 Pulse 70 02/24/22 11:58 Resp 18 02/24/22 11:58 BP 179/73 H 02/24/22 11:58 Pulse Ox 99 02/24/22 11:58 BMI result Body Mass Index 34.9 Const: Other: General?unresponsive, no acute respiratory distress. Pupils equal reactive to light Oral mucosa moist Neck no JVD. CVS? regular rate rhythm, Respiratory lungs bilateral rhonchi Gastrointestinal abdomen soft, distended, nontender, bowel sounds audible, using abdominal muscles Extremities bilateral upper extremity edema Neuro? unresponsive Objective Data Active Medications Amlodipine Besylate (Amlodipine Besylate 10 Mg Tablet) 10 mg PO BEDTIME [facility]; Protocol Last Admin: 02/23/22 21:44 Dose: Not Given Documented by: MARY Non-Admin Reason: asleep, unable to wake for po Aspirin (Aspirin Enteric Coated 81 Mg Tablet.) 81 mg PO DAILY [facility] Last Admin: 02/24/22 10:52 Dose: 81 mg Documented by: THAIS Benztropine Mesylate (Benztropine Mesylate 1 Mg Tablet) 1 mg PO BID [facility] Last Admin: 02/24/22 10:57 Dose: 1 mg Documented by: THAIS Carbidopa/Levodopa (Carbidopa/Levodopa 25/100 Tablet) 1 tab PO QID [facility] Last Admin: 02/24/22 13:13 Dose: 1 tab Documented by: THAIS Docusate Sodium (Docusate Sodium 100 Mg Capsule) 100 mg PO DAILY PRN PRN Reason: Constipation Gabapentin (Gabapentin 300 Mg Capsule) 900 mg PO TID [facility] Last Admin: 02/24/22 13:14 Dose: 900 mg Documented by: THAIS Hydralazine HCl (Hydralazine Hcl 20 Mg/Ml Vial) 10 mg IVPUSH Q4H PRN; Protocol PRN Reason: SBP>180 Last Admin: 02/23/22 16:15 Dose: 10 mg Documented by: GARY Potassium Chloride/Dextrose/Sod Cl () 40 meq in 1,000 mls @ 125 mls/hr IVCONT .Q8H [facility] Last Admin: 02/24/22 08:05 Dose: 125 mls/hr Documented by: THAIS Insulin Glargine (Insulin Glargine,Hum.Rec.Anlog 100 Unit/Ml 10 Ml Vial) 17 unit SUBCUT BID [facility] Last Admin: 02/24/22 10:58 Dose: Not Given Documented by: THAIS Non-Admin Reason: No Insulin Coverage Insulin Human Lispro (Insulin Lispro 100 Unit/Ml 3 Ml Vial) 0 unit SUBCUT QIDACHS [facility]; Protocol Last Admin: 02/24/22 13:12 Dose: 2 unit Documented by: THAIS Lactulose (Lactulose 20 Gm/30 Ml Solution) 40 gm PO QID [facility] Last Admin: 02/24/22 13:14 Dose: 40 gm Documented by: THAIS Levothyroxine Sodium (Levothyroxine Sodium 25 Mcg Tablet) 25 mcg PO DAILY@0600 [facility] Last Admin: 02/24/22 05:56 Dose: Not Given Documented by: MARY Non-Admin Reason: Patient Asleep Lisinopril (Lisinopril 40 Mg Tablet) 40 mg PO DAILY [facility]; Protocol Last Admin: 02/24/22 10:53 Dose: 40 mg Documented by: THAIS Loratadine (Loratadine 10 Mg Tablet) 10 mg PO DAILY [facility] Last Admin: 02/24/22 10:58 Dose: 10 mg Documented by: THAIS Metformin HCl (Metformin Hcl 1,000 Mg Tablet) 1,000 mg PO BIDWM [facility] Last Admin: 02/24/22 10:53 Dose: 1,000 mg Documented by: THAIS Multivitamins/Vitamin C (Multivitamin Tablet) 1 tab PO DAILY [facility] Last Admin: 02/24/22 10:54 Dose: 1 tab Documented by: THAIS Ondansetron HCl (Ondansetron Hcl 4 Mg/2 Ml Vial) 4 mg IVPUSH Q4H PRN PRN Reason: Nausea and Vomiting Last Admin: 02/21/22 09:19 Dose: 4 mg Documented by: GARY Pantoprazole Sodium (Pantoprazole Sodium 40 Mg/10 Ml Vial) 40 mg IVPUSH BID@0630,1630 [facility] Last Admin: 02/24/22 05:56 Dose: 40 mg Documented by: MARY Pharmacy Consult (Consult Rx Perform Med Rec) 1 each MISCELLANE ONCE PRN PRN Reason: Consult order Rifaximin (Rifaximin 550 Mg Tablet) 550 mg PO BID [facility] Last Admin: 02/24/22 10:57 Dose: 550 mg Documented by: THAIS Senna (Sennosides 8.6 Mg Tablet) 8.6 mg PO DAILY PRN PRN Reason: Constipation Sodium Chloride (0.9 % Sodium Chloride Flush 3 Ml Syringe) 3 ml IVFLUSH QSHIFT [facility] Last Admin: 02/24/22 10:54 Dose: Not Given Documented by: THAIS Non-Admin Reason: IV Running Ziprasidone (Ziprasidone 20 Mg Capsule) 20 mg PO DAILY@1800 [facility] Last Admin: 02/23/22 17:32 Dose: 20 mg Documented by: GARY Labs CBC & Chem 7: 02/25/22 06:18 02/25/22 06:18 Labs: Laboratory Results - last 24 hr 02/23/22 02/23/22 02/24/22 15:21 19:23 05:55 Anion Gap 12 Estim Creat Clear Calc 53.5 Estimated GFR 46 POC Glucose 337 H 269 H Random Glucose 151 H D Calcium 8.4 D Ammonia 02/24/22 02/24/22 02/24/22 05:55 07:11 11:21 Anion Gap Estim Creat Clear Calc Estimated GFR POC Glucose 130 H 171 H Random Glucose Calcium Ammonia 168 H Assessment and Plan (1) Unresponsiveness: Status: Acute (2) Alcoholic cirrhosis of liver with ascites: Status: Acute (3) Hyperammonemia: Status: Acute (4) Intracranial hemorrhage, subdural: Status: Acute (5) Parkinson disease: Status: Acute (6) Dementia: Status: Acute (7) Schizophrenia: Status: Acute Plan 61-year-old male with known history of dementia, Parkinson's disease and schizophrenia who is a long-term resident at [facility] presents with concerns for elevated ammonia level.? Staff noted he fell out of bed this morning hitting his head; however no mental status changes was sent for high ammonia.? In the emergency room a CT scan of the head was done which demonstrated a subdural hematoma.? CT scan was repeated 02/20 without changes. 1. Unresponsiveness patient noted to be unresponsive /ammonia level elevated at 168, patient afebrile, blood sugars stable, question related to multiple psychiatric medication including Geodon and perphenazine and hyperammonemia Underwent extensive workup repeat CT head showed stable trace right tentorial subdural hematoma, no evidence of new acute intracranial hemorrhage ABGs showed pH 7.49, pCO2 26 and bicarb of 20, chest x-ray showed no abnormality, CT abdomen showed hepatic steatosis and splenomegaly no free fluid, mild anasarca Hematocrit 24.5 no change since yesterday, platelet [id number], sodium 147, potassium 3 chloride 117 creatinine 1.5 G-tube placed patient treated with lactulose 40 g q.i.d./placed on IV fluid with potassium/Ybarra catheter draining clear urine Patient evaluated by Dr. Alba from ICU he reviewed all imaging studies and lab data and recommend to hold all psychiatric medication and continue current treatment Will hold off on NG feedings due to high risk for aspiration Repeat ammonia level is 142/potassium improved to 3.8/sodium 149/blood sugar 143 Will continue current treatment with lactulose q.i.d. IV fluid, follow closely for respiratory compromise, follow labs closely Ybarra draining clear urine/rectal tube with light orange liquid stool Called patient guardian Marshall Davidson phone [phone], to inform would change in patient's clinical condition, no one answered the phone 2. Parkinson's disease/a schizophrenia/dementia/ataxia/history of substance use -hold all current medications 3. Hyperammonemia likely due to multiple psychiatric medications/hepatic steatosis on CT, liver enzymes and bili elevated but stable - ammonia level remains elevated continue lactulose by ng , follow ammonia level and clinical course ? 4.DMII- blood sugars is stable, continue IV D5W to avoid hypoglycemia, on insulin sliding scale 5. hypernatremia due to unresponsiveness continue IV D5 half-normal saline follow BMP closely 6. acute kidney injury creatinine 1.95 on admission improved to 1.48 continue IV fluids and follow BMP Full code Boots Patient will? need continued inpatient hospitalization due to unresponsiveness with elevated ammonia level requiring? frequent doses of lactulose and close monitoring of ammonia level , hypernatremia? need IV fluid and close monitoring. Quality Stroke Does the patient have a stroke diagnosis?: No VTE Prior VTE?: No VTE Risk Level:: Medical - moderate - high VTE Device Contraindication: N/A - Device Ordered VTE Drug Contraindication: Treatment Not Indicated
[2022-02-24 14:31] LABS: ABG Base Excess -1.8 mmol/L; ABG HCO3 20 mmol/L (22-26); ABG pCO2 26 mmHg (32-45); ABG pH 7.49 (7.35-7.45); ABG pO2 105 mmHg (83-108)
[2022-02-24 14:33] LABS: Glucose, Whole Blood 160 mg/dL (60-115)
[2022-02-24 14:50] LABS: ABG Refer to POC result
--- NOTE | 2022-02-24 15:27 | PC.NURSE ---
patient transferred to CT by Kandis DAVIS and students
[2022-02-24 16:08] LABS: Glucose, Whole Blood 123 mg/dL (60-115)
[2022-02-24] MEDS: 0.9 % Sodium Chloride Flush 3 ML SYRINGE IVFLUSH (16:17)
[2022-02-24 16:26] LABS: Zinc 67 mcg/dL (60-130)
--- NOTE | 2022-02-24 16:26 | MHC.SLORD ---
Speech Language Pathology Order Status: Atttempted to see Pt. this a.m. Nursing advised that Pt is on medication that causes prolonged somnambulant state. Pt now has NG tube, receiving nutrition via alternate feeding method. Not appropriate for PO trials. DRIVE IN TELLER will continue to follow.
--- NOTE | 2022-02-24 16:38 | PC.NURSE ---
AT START OF SHIFT PT WAS SOMNOLENT TO UNRESPONSIVE. VSS O2 SAT 99%. AMMONIA [id number]. PT WAS EVALUATED BY DR CRUZ. NGT PLACED TO ADMINISTER LACTULOSE AND MEDS.. PLACEMENT WAS VERIFIED BY MYSELF AND DR LEONG. THROUGHOUT SHIFT NO IMPROVEMENT IN MENTAL STATUS. SIMON CATH WAS PLACED DUE TO NO URINE OUTPUT. SEE NOTE FROM DR LEONG REGARDING HER ORDERS.
--- NOTE | 2022-02-24 16:41 | PC.NURSE ---
P patient unresponsive,BP elevated 184/81 pulse 68 ,sat 99% RA ,pupils non reactive ti light,CT results available I Dr. Flores notified,questioned starting tube feeding E will monitor
[2022-02-24 17:08] LABS: Hematocrit 24.5 % (42.0-52.0); Hemoglobin 8.6 g/dl (14.0-18.0); Mean Corpuscular HGB Conc 35.1 g/dl (31.0-36.0); Mean Corpuscular Volume 88.4 fL (80.0-98.0); Red Blood Count 2.77 X10*6/uL (4.60-5.80); Red Cell Distribution Width 16.5 % (11.0-16.0); White Blood Count 5.6 X10*3/uL (4.8-10.8)
[2022-02-24 17:26] LABS: Ammonia 142 umol/L (13-55)
--- NOTE | 2022-02-24 17:27 | PC.NURSE ---
patient was seen by dr. Flores,reassessed ,pupils reactive to light ,tube feeding on hold for now
[2022-02-24 17:28] LABS: Platelet Count 66 X10*3/uL (160-400)
[2022-02-24 17:31] LABS: Alanine Aminotransferase 19 U/L (0-40); Albumin Level 2.8 g/dL (3.5-5.0); Alkaline Phosphatase 80 U/L (39-117); Anion Gap 17 (12-20); Aspartate Amino Transferase 63 U/L (5-37); Bilirubin Direct 0.8 mg/dL (0.0-0.5); Bilirubin Total 1.9 mg/dL (0.0-1.0); Blood Urea Nitrogen 33 mg/dL (9-16); Calcium 8.3 mg/dL (8.4-10.2); Carbon Dioxide 17 mmol/L (22-29); Chloride 119 mmol/L (96-108); Estimated Glomerular Filt Rate 48; Glucose Random 143 mg/dL (60-115); Potassium 3.8 mmol/L (3.3-5.1); Sodium 149 mmol/L (135-145); Total Protein 5.9 g/dL (6.5-8.0)
[2022-02-24] MEDS: KCl 40 mEq in 5% Dex/0.45% Sod 40 MEQ/1,000 ML IV.SOLN 100 MEQ IVCONT (17:36)
[2022-02-24] MEDS: amLODIPine Besylate 10 MG TABLET PO (17:47)
[2022-02-24 20:50] LABS: Glucose, Whole Blood 153 mg/dL (60-115)
[2022-02-24] MEDS: hydrALAZINE HCl 20 MG/ML VIAL 10 MG IVPUSH (22:33)
--- NOTE | 2022-02-24 22:50 | PC.NURSE ---
P BP elevated 192/[address] Armstrong notified,prn Hydralazine administered E will monitor
[2022-02-25] VITALS (17 sets, daily range): BP systolic 124–184; BP diastolic 60–76; PULSE 82–94; RESP 17–22; TEMP 37.6–37.9; O2SAT 97–99
--- NOTE | 2022-02-25 | EEG_ITS ---
This is a 16-channel EEG. EEG is performed on portable machine in ICU. The patient is unresponsive. Background EEG rhythm is low amplitude, mixed theta, delta with no obvious asymmetry or paroxysmal tendency. Cardiac lead was not visible. Photic stimulation and hyperventilation were not performed. IMPRESSION: Severe generalized slowing suggestive of bihemispheric dysfunction. Metabolic toxic or anoxic encephalopathy, which should be considered. Clinical correlation is recommended. MD CHIDI Merritt/BETHANY / [phone]
[2022-02-25] MEDS: 0.9 % Sodium Chloride Flush 3 ML SYRINGE IVFLUSH ×3 (00:07→20:41)
[2022-02-25] MEDS: KCl 40 mEq in 5% Dex/0.45% Sod 40 MEQ/1,000 ML IV.SOLN 100 MEQ IVCONT (03:25)
--- NOTE | 2022-02-25 03:26 | PC.NURSE ---
tube feeding on hold per rn report and see her note previous shift, blood pressure to 166/61, pt remains sleeping, not talking, no s/sx resp distress 99% room air, hob up, repositioned, rectal tube and josé catheter in use. Will monitor closely.
[2022-02-25] MEDS: Pantoprazole Sodium 40 MG/10 ML VIAL IVPUSH (05:37)
[2022-02-25 06:30] LABS: Hemoglobin 8.4 g/dl (14.0-18.0); Mean Corpuscular Hemoglobin 30.8 pg (27.0-33.0); Mean Corpuscular Volume 87.9 fL (80.0-98.0); Mean Platelet Volume 9.9 fL (9.4-12.4); Platelet Count 67 X10*3/uL (160-400); Red Blood Count 2.73 X10*6/uL (4.60-5.80); Red Cell Distribution Width 16.5 % (11.0-16.0); White Blood Count 6.4 X10*3/uL (4.8-10.8)
[2022-02-25 06:34] LABS: Ammonia 152 umol/L (13-55)
[2022-02-25 07:01] LABS: Alanine Aminotransferase 39 U/L (0-40); Albumin Level 2.8 g/dL (3.5-5.0); Alkaline Phosphatase 80 U/L (39-117); Anion Gap 12 (12-20); Aspartate Amino Transferase 51 U/L (5-37); Bilirubin Direct 0.8 mg/dL (0.0-0.5); Bilirubin Total 1.5 mg/dL (0.0-1.0); Blood Urea Nitrogen 35 mg/dL (9-16); Calcium 8.3 mg/dL (8.4-10.2); Carbon Dioxide 19 mmol/L (22-29); Chloride 117 mmol/L (96-108); Creatinine Clr Calc Pharmacy 47.4; Estimated Glomerular Filt Rate 40; Glucose Random 244 mg/dL (60-115); Potassium 3.9 mmol/L (3.3-5.1); Sodium 144 mmol/L (135-145); Total Protein 5.7 g/dL (6.5-8.0)
[2022-02-25] MEDS: Lactulose 20 GM/30 ML SOLUTION 40 GM PO ×3 (07:35→20:38)
[2022-02-25] MEDS: rifAXIMin 550 MG TABLET PO ×2 (07:36→20:37)
[2022-02-25] MEDS: lisinopriL 40 MG TABLET PO (07:36)
[2022-02-25 07:42] LABS: Glucose, Whole Blood 210 mg/dL (60-115)
[2022-02-25 10:48] LABS: Glucose, Whole Blood 211 mg/dL (60-115)
--- NOTE | 2022-02-25 11:05 | PC.NURSE ---
AT START OF SHIFT PT WAS SEEN BY DR LEONG. UPPER AIRWAY CONGESTION. LABORED BRATHING O2 SAT 99% RM. NGT TUBE PLACEMENT VERIFIED. YANCHOR KATHY SUCTION PRODUCED MUCOUS AND A LARGE PLUG. BREATHING INPROVED. LACTULOSE GIVEN VIA NGT. PT TRANS TO ICU AT APPROX 1030.
[2022-02-25] MEDS: Albumin Human 25 % 100 ML IV ×3 (11:10→20:39)
[2022-02-25] MEDS: Chlorhexidine Gluc Oral Rinse 15 ML MOUTHWASH BUCCAL ×3 (11:11→20:37)
[2022-02-25] MEDS: Insulin Lispro 100 UNIT/ML 3 ML VIAL SUBCUT ×2 (11:30→17:35)
--- NOTE | 2022-02-25 11:30 | PM.CCPN ---
Subjective Subjective Date of Service: 02/25/22 Interval History: 61-year-old gentleman with underlying history of alcoholic liver cirrhosis, dementia, ataxia, parkinsonian disease, schizophrenia resident of [facility] facility admitted on 03/01/2022 with alteration of mental status after mechanical fall with resultant small subdural hematoma stable on follow-up imaging. patient was noted to have significant hyperammonemia and 1st treated with lactulose for hepatic encephalopathy. He was evaluated by Gastroenterology. However, despite lactulose and rifaximin regimen his ammonia level continued to rise with worsening hepatic encephalopathy in he was transferred to intensive care unit for further workup and management on 02/25/2022 Critical Care Time (minutes): 0 Physical Exam Vital Signs: Vital Signs: Last Vital Signs Temp 99.8 F 02/25/22 07:33 Pulse 87 02/25/22 10:41 Resp 19 02/25/22 10:41 BP 134/71 02/25/22 10:41 Pulse Ox 99 02/25/22 10:41 BMI result Body Mass Index 34.9 Const: General: no acute distress, alert and lethargic ( arousable to painful stimuli) Orientation/consciousness: lethargic ( arousable to painful stimuli) Eyes: Sclerae: sclerae normal EOM: EOMs intact bilaterally Neck: Neck: Yes no lymphadenopathy, Yes trachea midline and Yes supple Resp: Effort & Inspection: normal respiratory effort and no respiratory distress Auscultation: clear to auscultation bilaterally Cardio: Rate: regular rate Rhythm: regular rhythm Heart sounds: no gallops, no murmurs and no rubs GI: Palpation (GI): Soft to palpation and Other GI palpation findings present ( Nontender) Auscultation: normal bowel sounds Extrem: General: No clubbing, No cyanosis and Yes edema ( 1+ bilateral) Objective Data Labs CBC & Chem 7: 02/25/22 06:18 02/25/22 06:18 Labs: Laboratory Results - last 24 hr 02/21/22 02/24/22 02/24/22 08:38 11:21 14:24 WBC RBC Hgb Hct MCV MCH MCHC RDW Plt Count MPV Absolute Nucleated RBC Nucleated RBC % (auto) O2 Saturation 98.0 ABG pH at Pt Temp 7.49 H ABG pCO2 at Pt Temp 26 L ABG pO2 at Pt Temp 105 ABG HCO3 20 L ABG Base Excess (Actual) -1.8 Sodium Potassium Chloride Carbon Dioxide Anion Gap BUN Creatinine Estim Creat Clear Calc Estimated GFR POC Glucose 171 H Random Glucose Calcium Total Bilirubin Direct Bilirubin AST ALT Alkaline Phosphatase Ammonia Total Protein Albumin Zinc 67 02/24/22 02/24/22 02/24/22 14:25 16:02 17:03 WBC RBC Hgb Hct MCV MCH MCHC RDW Plt Count MPV Absolute Nucleated RBC Nucleated RBC % (auto) O2 Saturation ABG pH at Pt Temp ABG pCO2 at Pt Temp ABG pO2 at Pt Temp ABG HCO3 ABG Base Excess (Actual) Sodium 149 H Potassium 3.8 D Chloride 119 H Carbon Dioxide 17 L Anion Gap 17 BUN 33 H Creatinine 1.48 H Estim Creat Clear Calc 56.0 Estimated GFR 48 POC Glucose 160 H 123 H Random Glucose 143 H Calcium 8.3 L Total Bilirubin 1.9 H Direct Bilirubin 0.8 H AST 63 H ALT 19 Alkaline Phosphatase 80 Ammonia Total Protein 5.9 L Albumin 2.8 L Zinc 02/24/22 02/24/22 02/24/22 17:03 17:03 18:50 WBC 5.6 RBC 2.77 L Hgb 8.6 L Hct 24.5 L MCV 88.4 MCH 31.0 MCHC 35.1 RDW 16.5 H Plt Count 66 L MPV 10.0 Absolute Nucleated RBC 0.000 Nucleated RBC % (auto) 0.0 O2 Saturation ABG pH at Pt Temp ABG pCO2 at Pt Temp ABG pO2 at Pt Temp ABG HCO3 ABG Base Excess (Actual) Sodium Potassium Chloride Carbon Dioxide Anion Gap BUN Creatinine Estim Creat Clear Calc Estimated GFR POC Glucose 153 H Random Glucose Calcium Total Bilirubin Direct Bilirubin AST ALT Alkaline Phosphatase Ammonia 142 H Total Protein Albumin Zinc 02/25/22 02/25/22 02/25/22 06:18 06:18 06:18 WBC 6.4 RBC 2.73 L Hgb 8.4 L Hct 24.0 L MCV 87.9 MCH 30.8 MCHC 35.0 RDW 16.5 H Plt Count 67 L MPV 9.9 Absolute Nucleated RBC 0.000 Nucleated RBC % (auto) 0.0 O2 Saturation ABG pH at Pt Temp ABG pCO2 at Pt Temp ABG pO2 at Pt Temp ABG HCO3 ABG Base Excess (Actual) Sodium 144 Potassium 3.9 Chloride 117 H Carbon Dioxide 19 L Anion Gap 12 BUN 35 H Creatinine 1.75 H Estim Creat Clear Calc 47.4 Estimated GFR 40 POC Glucose Random Glucose 244 H D Calcium 8.3 L Total Bilirubin 1.5 H Direct Bilirubin 0.8 H AST 51 H ALT 39 Alkaline Phosphatase 80 Ammonia 152 H Total Protein 5.7 L Albumin 2.8 L Zinc 02/25/22 02/25/22 07:32 10:44 WBC RBC Hgb Hct MCV MCH MCHC RDW Plt Count MPV Absolute Nucleated RBC Nucleated RBC % (auto) O2 Saturation ABG pH at Pt Temp ABG pCO2 at Pt Temp ABG pO2 at Pt Temp ABG HCO3 ABG Base Excess (Actual) Sodium Potassium Chloride Carbon Dioxide Anion Gap BUN Creatinine Estim Creat Clear Calc Estimated GFR POC Glucose 210 H 211 H Random Glucose Calcium Total Bilirubin Direct Bilirubin AST ALT Alkaline Phosphatase Ammonia Total Protein Albumin Zinc Progress Note: A&P Assessment and plan (1) Alcoholic cirrhosis of liver with ascites: Status: Acute (2) Parkinson disease: Status: Acute (3) Dementia: Status: Acute (4) Ataxia: Status: Acute (5) Schizophrenia: Status: Acute (6) Hepatic encephalopathy: Status: Acute (7) Subdural hematoma: Status: Acute (8) Diabetes: Status: Acute Plan Assessment: 61-year-old gentleman with underlying parkinsonian disease, dementia, schizophrenia, alcoholic cirrhosis admitted with mechanical fall in resultant small subdural hematoma stable on follow-up imaging, now with persistent alteration of mental status and significant hepatic encephalopathy. Plan: Neuro: Alteration of mental status with small subdural hematoma Stable on follow-up CT imaging. Now appears to have significant hepatic encephalopathy with worsening hyperammonemia. Continue with rifaximin and lactulose. Cardiac: No acute issues. Pulmonary: No acute issues. Renal: No acute issues. Endo: No acute issues. GI: Alcoholic cirrhosis with hepatic encephalopathy. Gastroenterology service care appreciated. ID: No acute issues Heme/Onc: No acute issues. Psych: No acute issues. Miscellaneous: No acute issues. Prophylaxis: Heparin Diet: tube feeds Quality Stroke Does the patient have a stroke diagnosis?: No VTE Prior VTE?: No VTE Risk Level:: Medical - moderate - high VTE Device Contraindication: N/A - Device Ordered VTE Drug Contraindication: Treatment Not Indicated
[2022-02-25] MEDS: cefTRIAXone sodium 1 GM in 0.9 % Sodium Chloride 50 ML IV (11:33)
--- NOTE | 2022-02-25 11:48 | MHC.CLN ---
F/U PATIENT TO ICU TODAY. CONTINUES WITH NGT FEEDINGS. AT ICU ADMISSION, ORDER CHANGED TO GLUCERNA AT MAX GOAL RATE OF 40 ML PER HOUR WITH 240 ML FREE WATER FLUSHES Q 6 HOURS. PROVIDES 960 KCALS; 40 G PROTEIN, 819 ML FREE WATER PLUSH FLUSH 960 RB=5896 ML TOTAL WATER. FOLLOW FOR TOLERANCE, RESIDUALS, LYTES. PRIOR ORDER GLUCERNA AT 75 ML PER HOUR WITH 240 ML FREE WATER FLUSHES EVERY 6 HOURS TO PROVIDE 1800KCALS (23KCALS/KG CMW), 75G PROTEIN (.97G/KG), 2495ML TOTAL WATER FROM FORMULA AND FLUSHES (32ML/KG).
--- NOTE | 2022-02-25 12:02 | HO.PM.IMPN ---
Subjective Subjective Date of Service: 02/25/22 Interval History: No change in clinical condition since yesterday patient remains unresponsive to both sternal and verbal stimuli,thick mucus suction from oral cavity, blood pressure elevated overnight oxygenation maintained at 99 on room air Review of Systems Review of Systems: Yes Unobtainable due to mental status Physical Exam Vital Signs: Vital Signs: Last Vital Signs Temp 99.8 F 02/25/22 07:33 Pulse 87 02/25/22 10:41 Resp 19 02/25/22 10:41 BP 134/71 02/25/22 10:41 Pulse Ox 99 02/25/22 10:41 BMI result Body Mass Index 34.9 Const: Other: General?unresponsive, pale, edematous Pupils equal reactive to light Oral mucosa dry with thick coating on tongue Neck no JVD. CVS? regular rate rhythm, Respiratory lungs bilateral rhonchi/gurgling sound in throat Gastrointestinal abdomen soft, distended, nontender, bowel sounds audible, using abdominal muscles Extremities bilateral upper extremity edema Neuro? unresponsive to sternal rub Objective Data Active Medications Amlodipine Besylate (Amlodipine Besylate 10 Mg Tablet) 10 mg PO BEDTIME [facility]; Protocol Last Admin: 02/24/22 17:47 Dose: 10 mg Documented by: NANCI Carbidopa/Levodopa (Carbidopa/Levodopa 25/100 Tablet) 1 tab PO QID [facility] Chlorhexidine Gluconate (Chlorhexidine Gluc Oral Rinse 15 Ml Mouthwash) 15 ml BUCCAL TID [facility] Last Admin: 02/25/22 11:11 Dose: 15 ml Documented by: JOSE Albumin Human (Kedbumin 25 %) 100 mls @ 100 mls/hr IV Q6H [facility] Stop: 02/26/22 03:44 Last Admin: 02/25/22 11:10 Dose: 100 mls/hr Documented by: JOSE Ceftriaxone Sodium 1 gm/ (Sodium Chloride) 50 mls @ 100 mls/hr IV Q24H [facility] Last Admin: 02/25/22 11:33 Dose: 100 mls/hr Documented by: JOSE Insulin Human Lispro (Insulin Lispro 100 Unit/Ml 3 Ml Vial) 0 unit SUBCUT Q6H [facility]; Protocol Last Admin: 02/25/22 11:30 Dose: 4 unit Documented by: JOSE Lactulose (Lactulose 20 Gm/30 Ml Solution) 40 gm PO TID [facility] Levothyroxine Sodium (Levothyroxine Sodium 25 Mcg Tablet) 25 mcg PO DAILY@0600 [facility] Last Admin: 02/25/22 05:42 Dose: Not Given Documented by: SELENE Non-Admin Reason: pt unable swallow po meds at this time Lisinopril (Lisinopril 40 Mg Tablet) 40 mg PO DAILY [facility]; Protocol Last Admin: 02/25/22 07:36 Dose: 40 mg Documented by: THAIS Ondansetron HCl (Ondansetron Hcl 4 Mg/2 Ml Vial) 4 mg IVPUSH Q4H PRN PRN Reason: Nausea and Vomiting Last Admin: 02/21/22 09:19 Dose: 4 mg Documented by: GARY Pharmacy Consult (Consult Rx Perform Med Rec) 1 each MISCELLANE ONCE PRN PRN Reason: Consult order Rifaximin (Rifaximin 550 Mg Tablet) 550 mg PO BID [facility] Last Admin: 02/25/22 07:36 Dose: 550 mg Documented by: THAIS Senna (Sennosides 8.6 Mg Tablet) 8.6 mg PO DAILY PRN PRN Reason: Constipation Sodium Chloride (0.9 % Sodium Chloride Flush 3 Ml Syringe) 3 ml IVFLUSH QSHIFT [facility] Last Admin: 02/25/22 07:32 Dose: Not Given Documented by: THAIS Non-Admin Reason: IV Running Labs CBC & Chem 7: 02/25/22 06:18 02/25/22 06:18 Labs: Laboratory Results - last 24 hr 02/21/22 02/24/22 02/24/22 08:38 14:24 14:25 MCV MCH MCHC RDW Plt Count MPV Absolute Nucleated RBC Nucleated RBC % (auto) O2 Saturation 98.0 ABG pH at Pt Temp 7.49 H ABG pCO2 at Pt Temp 26 L ABG pO2 at Pt Temp 105 ABG HCO3 20 L ABG Base Excess (Actual) -1.8 Anion Gap Estim Creat Clear Calc Estimated GFR POC Glucose 160 H Random Glucose Calcium Total Bilirubin Direct Bilirubin AST ALT Alkaline Phosphatase Ammonia Total Protein Albumin Zinc 67 02/24/22 02/24/22 02/24/22 16:02 17:03 17:03 MCV MCH MCHC RDW Plt Count MPV Absolute Nucleated RBC Nucleated RBC % (auto) O2 Saturation ABG pH at Pt Temp ABG pCO2 at Pt Temp ABG pO2 at Pt Temp ABG HCO3 ABG Base Excess (Actual) Anion Gap 17 Estim Creat Clear Calc 56.0 Estimated GFR 48 POC Glucose 123 H Random Glucose 143 H Calcium 8.3 L Total Bilirubin 1.9 H Direct Bilirubin 0.8 H AST 63 H ALT 19 Alkaline Phosphatase 80 Ammonia 142 H Total Protein 5.9 L Albumin 2.8 L Zinc 02/24/22 02/24/22 02/25/22 17:03 18:50 06:18 MCV 88.4 87.9 MCH 31.0 30.8 MCHC 35.1 35.0 RDW 16.5 H 16.5 H Plt Count 66 L 67 L MPV 10.0 9.9 Absolute Nucleated RBC 0.000 0.000 Nucleated RBC % (auto) 0.0 0.0 O2 Saturation ABG pH at Pt Temp ABG pCO2 at Pt Temp ABG pO2 at Pt Temp ABG HCO3 ABG Base Excess (Actual) Anion Gap Estim Creat Clear Calc Estimated GFR POC Glucose 153 H Random Glucose Calcium Total Bilirubin Direct Bilirubin AST ALT Alkaline Phosphatase Ammonia Total Protein Albumin Zinc 02/25/22 02/25/22 02/25/22 06:18 06:18 07:32 MCV MCH MCHC RDW Plt Count MPV Absolute Nucleated RBC Nucleated RBC % (auto) O2 Saturation ABG pH at Pt Temp ABG pCO2 at Pt Temp ABG pO2 at Pt Temp ABG HCO3 ABG Base Excess (Actual) Anion Gap 12 Estim Creat Clear Calc 47.4 Estimated GFR 40 POC Glucose 210 H Random Glucose 244 H D Calcium 8.3 L Total Bilirubin 1.5 H Direct Bilirubin 0.8 H AST 51 H ALT 39 Alkaline Phosphatase 80 Ammonia 152 H Total Protein 5.7 L Albumin 2.8 L Zinc 02/25/22 10:44 MCV MCH MCHC RDW Plt Count MPV Absolute Nucleated RBC Nucleated RBC % (auto) O2 Saturation ABG pH at Pt Temp ABG pCO2 at Pt Temp ABG pO2 at Pt Temp ABG HCO3 ABG Base Excess (Actual) Anion Gap Estim Creat Clear Calc Estimated GFR POC Glucose 211 H Random Glucose Calcium Total Bilirubin Direct Bilirubin AST ALT Alkaline Phosphatase Ammonia Total Protein Albumin Zinc Assessment and Plan (1) Unresponsiveness: Status: Acute (2) Alcoholic cirrhosis of liver with ascites: Status: Acute (3) Hyperammonemia: Status: Acute (4) Intracranial hemorrhage, subdural: Status: Acute (5) Parkinson disease: Status: Acute (6) Dementia: Status: Acute (7) Schizophrenia: Status: Acute Plan 61-year-old male with known history of dementia, Parkinson's disease and schizophrenia who is a long-term resident at [facility] [place] presents with concerns for elevated ammonia level.? Staff noted he fell out of bed this morning hitting his head; however no mental status changes was sent for high ammonia.? In the emergency room a CT scan of the head was done which demonstrated a subdural hematoma.? CT scan was repeated 02/20 without changes. 1. Unresponsiveness No change in clinical status in last 24 hours, remain unresponsive ammonia level remains elevated at 152, despite receiving lactulose q.i.d. afebrile, blood sugars 200s, question symptoms related to multiple psychiatric medication including Geodon and perphenazine and hyperammonemia Underwent extensive workup CT head showed stable trace right tentorial subdural hematoma, no evidence of new acute intracranial hemorrhage ABGs showed pH 7.49, pCO2 26 and bicarb of 20, chest x-ray showed no abnormality, CT abdomen showed hepatic steatosis and splenomegaly no free fluid, mild anasarca Hematocrit 24.0 no change since yesterday, platelet 24187, sodium 147, potassium 3.9 chloride 117 creatinine bumped to 1.75 Repeat ammonia level is 142/potassium improved to 3.8/sodium 149/blood sugar 200, Ybarra draining clear urine Will continue lactulose 40 g q.i.d. via G-tube/NG feedings with aspiration precautions/obtain EEG Due to concern for airway compromise/worsening creatinine/low albumin and intense nursing care, case discussed with pack out operator and patient transferred to ICU for higher level of care patient guardian Marshall Davidson phone [phone]. 2. Parkinson's disease/a schizophrenia/dementia/ataxia/history of substance use - all home medications on hold. 3. Hyperammonemia likely due to multiple psychiatric medications/hepatic steatosis on CT, liver enzymes and bili elevated but stable - ammonia level remains elevated continue lactulose by ng , follow ammonia level and clinical course ? 4.DMII- blood sugars in 200 range, on insulin sliding scale 5. hypernatremia resolved with IV D5 half-normal saline follow BMP closely 6. acute kidney injury creatinine 1.95 on admission improved to 1.48, but trending back up to 1.75 due to poor by mouth intake in last several days Full code Boots Due to unresponsiveness with hyperammonemia, acute renal injury patient has been transferred to intensive care unit for higher level of care. Quality Stroke Does the patient have a stroke diagnosis?: No VTE Prior VTE?: No VTE Risk Level:: Medical - moderate - high VTE Device Contraindication: N/A - Device Ordered VTE Drug Contraindication: Treatment Not Indicated
[2022-02-25 12:09] LABS: Magnesium 2.1 mg/dL (1.6-2.6); Phosphorus 2.2 mg/dL (2.7-4.5)
[2022-02-25] MEDS: Carbidopa/Levodopa 25/100 TABLET 1 TAB PO ×3 (13:47→20:37)
[2022-02-25 17:15] LABS: Glucose, Whole Blood 197 mg/dL (60-115)
[2022-02-25] MEDS: amLODIPine Besylate 10 MG TABLET PO (20:37)
[2022-02-25 22:16] LABS: Anion Gap 14 (12-20); Blood Urea Nitrogen 35 mg/dL (9-16); Calcium 8.7 mg/dL (8.4-10.2); Carbon Dioxide 18 mmol/L (22-29); Chloride 118 mmol/L (96-108); Creatinine Clr Calc Pharmacy 46.3; Estimated Glomerular Filt Rate 39; Glucose Random 208 mg/dL (60-115); Potassium 3.7 mmol/L (3.3-5.1); Sodium 146 mmol/L (135-145)
[2022-02-26] VITALS (28 sets, daily range): BP systolic 130–218; BP diastolic 54–88; PULSE 85–103; RESP 16–92; TEMP 36.9–38.2; O2SAT 93–98
--- NOTE | 2022-02-26 | ECG_ITS ---
Test Reason : elevated t Blood Pressure : / mmHG Vent. Rate : 090 BPM Atrial Rate : 090 BPM P-R Int : 148 ms QRS Dur : 116 ms QT Int : 396 ms P-R-T Axes : 071 -54 097 degrees QTc Int : 484 ms Normal sinus rhythm with sinus arrhythmia Left anterior fascicular block Left ventricular hypertrophy with QRS widening and repolarization abnormality ( R in aVL , Rankin product ) Prolonged QT Abnormal ECG No previous ECGs available Referred By: Alvin Alba Electronically Signed By:Cristo Valverde
[2022-02-26 01:03] LABS: Glucose, Whole Blood 227 mg/dL (60-115)
[2022-02-26] MEDS: Insulin Lispro 100 UNIT/ML 3 ML VIAL SUBCUT ×4 (01:06→17:04)
[2022-02-26] MEDS: Albumin Human 25 % 100 ML IV (02:27)
[2022-02-26 05:23] LABS: VBG Base Excess -1.8 mmol/L; VBG HCO3 20 mmol/L (22-26); VBG pCO2 25 mmHg; VBG pO2 75 mmHg
[2022-02-26 05:36] LABS: Venous Blood Gas Refer to POC result
[2022-02-26 05:40] LABS: MANUAL DIFF FLAG NO
[2022-02-26 05:42] LABS: Glucose, Whole Blood 200 mg/dL (60-115)
[2022-02-26 05:43] LABS: Basophils Percent Auto 0.4 % (0-2); Eosinophils Absolute Auto 0.3 X10*3/uL (0.0-0.4); Eosinophils Percent Auto 6.1 % (0-4); Hematocrit 21.2 % (42.0-52.0); Hemoglobin 7.6 g/dl (14.0-18.0); Imm Gran Abs Auto 0.03 X10*3/uL (0.00-0.03); Imm Gran Pct Auto 0.5 % (0.0-0.4); Lymphocytes Absolute Auto 1.1 X10*3/uL (1.2-4.9); Lymphocytes Percent Auto 19.1 % (20-40); Mean Corpuscular HGB Conc 35.8 g/dl (31.0-36.0); Mean Corpuscular Hemoglobin 31.5 pg (27.0-33.0); Mean Platelet Volume 10.8 fL (9.4-12.4); Monocytes Absolute Auto 0.6 X10*3/uL (0.1-1.2); Neutrophils Absolute Auto 3.5 x10*3/uL (2.0-8.3); Neutrophils Percent Auto 62.9 % (45-73); Platelet Count 61 X10*3/uL (160-400); Red Blood Count 2.41 X10*6/uL (4.60-5.80); Red Cell Distribution Width 16.4 % (11.0-16.0); White Blood Count 5.6 X10*3/uL (4.8-10.8)
[2022-02-26] MEDS: Levothyroxine Sodium 25 MCG TABLET PO (05:44)
[2022-02-26 05:59] LABS: Alanine Aminotransferase 24 U/L (0-40); Albumin Level 3.6 g/dL (3.5-5.0); Alkaline Phosphatase 76 U/L (39-117); Anion Gap 15 (12-20); Aspartate Amino Transferase 55 U/L (5-37); Bilirubin Total 2.2 mg/dL (0.0-1.0); Blood Urea Nitrogen 37 mg/dL (9-16); Calcium 8.5 mg/dL (8.4-10.2); Carbon Dioxide 17 mmol/L (22-29); Chloride 117 mmol/L (96-108); Creatinine Clr Calc Pharmacy 49.1; Estimated Glomerular Filt Rate 41; Glucose Random 227 mg/dL (60-115); Magnesium 2.3 mg/dL (1.6-2.6); Potassium 3.7 mmol/L (3.3-5.1); Sodium 145 mmol/L (135-145); Total Protein 6.1 g/dL (6.5-8.0)
[2022-02-26] MEDS: Potassium Phosphate/NS 15 MMOL/250 ML PLAST..BAG 62.5 MMOL IV (06:26)
[2022-02-26] MEDS: Carbidopa/Levodopa 25/100 TABLET 1 TAB PO ×4 (08:07→20:38)
[2022-02-26] MEDS: 0.9 % Sodium Chloride Flush 3 ML SYRINGE IVFLUSH ×2 (08:07→14:14)
[2022-02-26] MEDS: Lactulose 20 GM/30 ML SOLUTION 40 GM PO ×3 (08:07→20:38)
[2022-02-26] MEDS: rifAXIMin 550 MG TABLET PO ×2 (08:07→20:38)
[2022-02-26] MEDS: lisinopriL 40 MG TABLET PO (08:07)
[2022-02-26] MEDS: Chlorhexidine Gluc Oral Rinse 15 ML MOUTHWASH BUCCAL ×3 (08:07→20:51)
[2022-02-26 09:02] LABS: Ammonia 117 umol/L (13-55)
--- NOTE | 2022-02-26 09:46 | PM.CCPN ---
Subjective Subjective Date of Service: 02/26/22 Interval History: 61-year-old gentleman with underlying history of alcoholic liver cirrhosis, dementia, ataxia, parkinsonian disease, schizophrenia [facility] on 03/01/2022 with alteration of mental status after mechanical fall with resultant small subdural hematoma stable on follow-up imaging. patient was noted to have significant hyperammonemia and 1st treated with lactulose for hepatic encephalopathy. He was evaluated by Gastroenterology. However, despite lactulose and rifaximin regimen his ammonia level continued to rise with worsening hepatic encephalopathy in he was transferred to intensive care unit for further workup and management on 02/25/2022. No events overnight. Encephalopathy persists. Ammonia level is better. Critical Care Time (minutes): 0 Physical Exam Vital Signs: Vital Signs: Last Vital Signs Temp 98.4 F 02/26/22 08:00 Pulse 86 02/26/22 09:00 Resp 19 02/26/22 09:00 BP 170/64 H 02/26/22 09:00 Pulse Ox 96 02/26/22 09:00 BMI result Body Mass Index 34.9 Const: General: no acute distress and lethargic ( Minimal arousable with noxious stimuli) Orientation/consciousness: lethargic ( Minimal arousable with noxious stimuli) Eyes: Sclerae: sclerae normal EOM: EOMs intact bilaterally Neck: Neck: Yes no lymphadenopathy, Yes trachea midline and Yes supple Resp: Effort & Inspection: normal respiratory effort and no respiratory distress Auscultation: clear to auscultation bilaterally Cardio: Rate: regular rate Rhythm: regular rhythm Heart sounds: no gallops, no murmurs and no rubs GI: Palpation (GI): Soft to palpation and Other GI palpation findings present ( Nontender) Auscultation: normal bowel sounds Extrem: General: No clubbing, No cyanosis and Yes edema ( 1+ bilateral) Objective Data Labs CBC & Chem 7: 02/26/22 05:16 02/26/22 05:16 Labs: Laboratory Results - last 24 hr 02/25/22 02/25/22 02/25/22 06:18 10:44 17:10 WBC RBC Hgb Hct MCV MCH MCHC RDW Plt Count MPV Immature Gran % (Auto) Neut % (Auto) Lymph % (Auto) [place] % (Auto) Eos % (Auto) Baso % (Auto) Lymph # (Auto) [place] # (Auto) Eos # (Auto) Baso # (Auto) Abs Immat Gran (auto) Absolute Neuts (auto) Absolute Nucleated RBC Nucleated RBC % (auto) VBG pH VBG pCO2 VBG pO2 VBG HCO3 VBG O2 Saturation VBG Base Excess Sodium Potassium Chloride Carbon Dioxide Anion Gap BUN Creatinine Estim Creat Clear Calc Estimated GFR POC Glucose 211 H 197 H Random Glucose Calcium Phosphorus 2.2 L Magnesium 2.1 Total Bilirubin AST ALT Alkaline Phosphatase Ammonia Total Protein Albumin 02/25/22 02/26/22 02/26/22 21:53 01:00 05:13 WBC RBC Hgb Hct MCV MCH MCHC RDW Plt Count MPV Immature Gran % (Auto) Neut % (Auto) Lymph % (Auto) [place] % (Auto) Eos % (Auto) Baso % (Auto) Lymph # (Auto) [place] # (Auto) Eos # (Auto) Baso # (Auto) Abs Immat Gran (auto) Absolute Neuts (auto) Absolute Nucleated RBC Nucleated RBC % (auto) VBG pH 7.50 H VBG pCO2 25 VBG pO2 75 VBG HCO3 20 L VBG O2 Saturation 96.0 VBG Base Excess -1.8 Sodium 146 H Potassium 3.7 Chloride 118 H Carbon Dioxide 18 L Anion Gap 14 BUN 35 H Creatinine 1.79 H Estim Creat Clear Calc 46.3 Estimated GFR 39 POC Glucose 227 H Random Glucose 208 H Calcium 8.7 Phosphorus Magnesium Total Bilirubin AST ALT Alkaline Phosphatase Ammonia Total Protein Albumin 02/26/22 02/26/22 02/26/22 05:16 05:16 05:39 WBC 5.6 RBC 2.41 L Hgb 7.6 L Hct 21.2 L MCV 88.0 MCH 31.5 MCHC 35.8 RDW 16.4 H Plt Count 61 L MPV 10.8 Immature Gran % (Auto) 0.5 H Neut % (Auto) 62.9 Lymph % (Auto) 19.1 L [place] % (Auto) 11.0 Eos % (Auto) 6.1 H Baso % (Auto) 0.4 Lymph # (Auto) 1.1 L [place] # (Auto) 0.6 Eos # (Auto) 0.3 Baso # (Auto) 0.0 Abs Immat Gran (auto) 0.03 Absolute Neuts (auto) 3.5 Absolute Nucleated RBC 0.000 Nucleated RBC % (auto) 0.0 VBG pH VBG pCO2 VBG pO2 VBG HCO3 VBG O2 Saturation VBG Base Excess Sodium 145 Potassium 3.7 Chloride 117 H Carbon Dioxide 17 L Anion Gap 15 BUN 37 H Creatinine 1.69 H Estim Creat Clear Calc 49.1 Estimated GFR 41 POC Glucose 200 H Random Glucose 227 H Calcium 8.5 Phosphorus 2.0 L Magnesium 2.3 Total Bilirubin 2.2 H AST 55 H ALT 24 Alkaline Phosphatase 76 Ammonia Total Protein 6.1 L Albumin 3.6 D 02/26/22 08:50 WBC RBC Hgb Hct MCV MCH MCHC RDW Plt Count MPV Immature Gran % (Auto) Neut % (Auto) Lymph % (Auto) [place] % (Auto) Eos % (Auto) Baso % (Auto) Lymph # (Auto) [place] # (Auto) Eos # (Auto) Baso # (Auto) Abs Immat Gran (auto) Absolute Neuts (auto) Absolute Nucleated RBC Nucleated RBC % (auto) VBG pH VBG pCO2 VBG pO2 VBG HCO3 VBG O2 Saturation VBG Base Excess Sodium Potassium Chloride Carbon Dioxide Anion Gap BUN Creatinine Estim Creat Clear Calc Estimated GFR POC Glucose Random Glucose Calcium Phosphorus Magnesium Total Bilirubin AST ALT Alkaline Phosphatase Ammonia 117 H Total Protein Albumin Progress Note: A&P Assessment and plan (1) Diabetes: Status: Acute (2) Subdural hematoma: Status: Acute (3) Hepatic encephalopathy: Status: Acute (4) Alcoholic cirrhosis of liver with ascites: Status: Acute (5) Hyperammonemia: Status: Acute (6) Parkinson disease: Status: Acute (7) Dementia: Status: Acute (8) Ataxia: Status: Acute (9) Schizophrenia: Status: Acute Plan Assessment: 61-year-old gentleman with underlying parkinsonian disease, dementia, schizophrenia, alcoholic cirrhosis admitted with mechanical fall in resultant small subdural hematoma stable on follow-up imaging, now with persistent alteration of mental status and significant hepatic encephalopathy. Plan: Neuro: Alteration of mental status with small subdural hematoma stable on follow-up CT imaging. Now appears to have significant hepatic encephalopathy despite improving hyperammonemia. Continue with rifaximin and lactulose. will obtain brain MRI. Cardiac: No acute issues. Pulmonary: No acute issues. Renal: No acute issues. Endo: No acute issues. GI: Alcoholic cirrhosis with hepatic encephalopathy. Gastroenterology service care appreciated. ID: No acute issues Heme/Onc: No acute issues. Psych: No acute issues. Miscellaneous: No acute issues. Prophylaxis: Heparin Diet: tube feeds Quality Stroke Does the patient have a stroke diagnosis?: No VTE Prior VTE?: No VTE Risk Level:: Medical - moderate - high VTE Device Contraindication: N/A - Device Ordered VTE Drug Contraindication: Treatment Not Indicated
[2022-02-26 11:46] LABS: Glucose, Whole Blood 209 mg/dL (60-115)
[2022-02-26] MEDS: cefTRIAXone sodium 1 GM in 0.9 % Sodium Chloride 50 ML IV (11:48)
[2022-02-26 17:03] LABS: Glucose, Whole Blood 233 mg/dL (60-115)
[2022-02-26] MEDS: Metoprolol Tartrate 5 MG/5 ML VIAL IVPUSH ×2 (17:35→19:24)
[2022-02-26] MEDS: niCARdipine HCL 25 MG in 0.9 % Sodium Chloride 250 ML 52 MG IVCONT (20:10)
[2022-02-26] MEDS: niCARdipine HCL 25 MG in 0.9 % Sodium Chloride 250 ML 104 MG IVCONT (23:29)
[2022-02-27] VITALS (26 sets, daily range): BP systolic 134–170; BP diastolic 39–72; PULSE 85–114; RESP 22–33; TEMP 37.3–38.2; O2SAT 88–97
[2022-02-27 00:18] LABS: Glucose, Whole Blood 316 mg/dL (60-115)
[2022-02-27] MEDS: Insulin Lispro 100 UNIT/ML 3 ML VIAL SUBCUT ×5 (00:32→21:49)
[2022-02-27] MEDS: 0.9 % Sodium Chloride Flush 3 ML SYRINGE IVFLUSH ×3 (01:12→18:15)
[2022-02-27] MEDS: Acetaminophen Oral Liquid 650 MG/20.3 ML SOLUTION PO ×2 (02:04→23:35)
[2022-02-27] MEDS: niCARdipine HCL 25 MG in 0.9 % Sodium Chloride 250 ML 52 MG IVCONT ×4 (03:51→19:40)
[2022-02-27 05:18] LABS: VBG HCO3 15 mmol/L (22-26); VBG pCO2 20 mmHg; VBG pH 7.46 (7.32-7.43); VBG pO2 72 mmHg
[2022-02-27 05:30] LABS: MANUAL DIFF FLAG NO
[2022-02-27 05:35] LABS: Basophils Percent Auto 0.3 % (0-2); Eosinophils Absolute Auto 0.1 X10*3/uL (0.0-0.4); Eosinophils Percent Auto 0.5 % (0-4); Hematocrit 23.9 % (42.0-52.0); Hemoglobin 8.5 g/dl (14.0-18.0); Imm Gran Abs Auto 0.07 X10*3/uL (0.00-0.03); Imm Gran Pct Auto 0.5 % (0.0-0.4); Lymphocytes Absolute Auto 1.5 X10*3/uL (1.2-4.9); Lymphocytes Percent Auto 11.1 % (20-40); Mean Corpuscular HGB Conc 35.6 g/dl (31.0-36.0); Mean Corpuscular Hemoglobin 31.5 pg (27.0-33.0); Mean Corpuscular Volume 88.5 fL (80.0-98.0); Mean Platelet Volume 11.5 fL (9.4-12.4); Monocytes Absolute Auto 1.3 X10*3/uL (0.1-1.2); Monocytes Percent Auto 9.4 % (2-11); Neutrophils Absolute Auto 10.5 x10*3/uL (2.0-8.3); Neutrophils Percent Auto 78.2 % (45-73); Platelet Count 116 X10*3/uL (160-400); Red Cell Distribution Width 16.8 % (11.0-16.0); White Blood Count 13.4 X10*3/uL (4.8-10.8)
[2022-02-27 05:35] LABS: Glucose, Whole Blood 284 mg/dL (60-115)
[2022-02-27 05:37] LABS: Ammonia 95 umol/L (13-55)
[2022-02-27] MEDS: Levothyroxine Sodium 25 MCG TABLET PO (05:38)
[2022-02-27 06:32] LABS: Alanine Aminotransferase 32 U/L (0-40); Albumin Level 3.4 g/dL (3.5-5.0); Alkaline Phosphatase 83 U/L (39-117); Anion Gap 17 (12-20); Aspartate Amino Transferase 58 U/L (5-37); Bilirubin Total 2.3 mg/dL (0.0-1.0); Blood Urea Nitrogen 49 mg/dL (9-16); Calcium 8.3 mg/dL (8.4-10.2); Carbon Dioxide 14 mmol/L (22-29); Chloride 118 mmol/L (96-108); Creatinine Clr Calc Pharmacy 37.3; Estimated Glomerular Filt Rate 30; Glucose Random 327 mg/dL (60-115); Magnesium 3.1 mg/dL (1.6-2.6); Phosphorus 2.5 mg/dL (2.7-4.5); Potassium 3.6 mmol/L (3.3-5.1); Sodium 145 mmol/L (135-145); Total Protein 6.1 g/dL (6.5-8.0)
[2022-02-27] MEDS: Chlorhexidine Gluc Oral Rinse 15 ML MOUTHWASH BUCCAL ×3 (07:48→20:02)
[2022-02-27] MEDS: Lactulose 20 GM/30 ML SOLUTION 40 GM PO ×3 (07:48→20:02)
[2022-02-27] MEDS: Carbidopa/Levodopa 25/100 TABLET 1 TAB PO ×4 (07:49→20:02)
[2022-02-27] MEDS: lisinopriL 40 MG TABLET PO (07:49)
[2022-02-27] MEDS: Potassium Phosphate/NS 15 MMOL/250 ML PLAST..BAG 62.5 MMOL IV (07:53)
[2022-02-27] MEDS: Sodium Bicarbonate 8.4% 50 MEQ in Dextrose 5 % 950 ML IV ×2 (07:57→20:11)
[2022-02-27 09:20] LABS: Venous Blood Gas Refer to POC result
--- NOTE | 2022-02-27 09:29 | P.PNCC_ITS ---
Subjective Subjective Date of Service: 02/27/22 Interval History: ICU day 2 for hepatic encephalopathy, airway watch, nursing care. 61-year-old gentleman with underlying history of alcoholic liver cirrhosis, dementia, ataxia, parkinsonian disease, schizophrenia resident of [facility] facility admitted on 03/01/2022 with alteration of mental status after mechanical fall with resultant small subdural hematoma stable on follow-up imaging. patient was noted to have significant hyperammonemia and 1st treated with lactulose for hepatic encephalopathy. He was evaluated by Gastroenter ology. However, despite lactulose and rifaximin regimen his ammonia level continued to rise with worsening hepatic encephalopathy in he was transferred to intensive care unit for further workup and management on 02/25/2022. No events overnight. Encephalopathy and ammonia level are slowly improving. Critical Care Time (minutes): 0 Physical Exam Vital Signs: Vital Signs: Last Vital Signs Temp 99.3 F 02/27/22 05:47 Pulse 102 H 02/27/22 09:00 Resp 32 H 02/27/22 09:00 BP 155/52 H 02/27/22 09:00 Pulse Ox 94 02/27/22 09:00 BMI result Body Mass Index 34.9 Const: General: no acute distress and lethargic (Arousable to voice commands and follows/answers appropriately) Orientation/consciousness: lethargic (Arousable to voice commands and follows/answers appropriately) Eyes: Sclerae: sclerae normal EOM: EOMs intact bilaterally Neck: Neck: Yes no lymphadenopathy, Yes trachea midline and Yes supple Resp: Effort & Inspection: normal respiratory effort, no respiratory distress and tachypneic Auscultation: clear to auscultation bilaterally Cardio: Rate: tachycardic Rhythm: regular rhythm Heart sounds: no gallops, no murmurs and no rubs GI: Palpation (GI): Soft to palpation and Other GI palpation findings present ( Nontender) Auscultation: normal bowel sounds Extrem: General: Yes no pedal edema, No clubbing and No cyanosis Objective Data Labs CBC & Chem 7: 02/27/22 05:12 02/27/22 05:12 Labs: Laboratory Results - last 24 hr 02/26/22 02/26/22 02/27/22 11:43 17:00 00:13 WBC RBC Hgb Hct MCV MCH MCHC RDW Plt Count MPV Immature Gran % (Auto) Neut % (Auto) Lymph % (Auto) [place] % (Auto) Eos % (Auto) Baso % (Auto) Lymph # (Auto) [place] # (Auto) Eos # (Auto) Baso # (Auto) Abs Immat Gran (auto) Absolute Neuts (auto) Absolute Nucleated RBC Nucleated RBC % (auto) VBG pH VBG pCO2 VBG pO2 VBG HCO3 VBG O2 Saturation VBG Base Excess Sodium Potassium Chloride Carbon Dioxide Anion Gap BUN Creatinine Estim Creat Clear Calc Estimated GFR POC Glucose 209 H 233 H 316 H Random Glucose Calcium Phosphorus Magnesium Total Bilirubin AST ALT Alkaline Phosphatase Ammonia Total Protein Albumin 02/27/22 02/27/22 02/27/22 05:10 05:12 05:12 WBC 13.4 H RBC 2.70 L Hgb 8.5 L Hct 23.9 L MCV 88.5 MCH 31.5 MCHC 35.6 RDW 16.8 H Plt Count 116 L D MPV 11.5 Immature Gran % (Auto) 0.5 H Neut % (Auto) 78.2 H Lymph % (Auto) 11.1 L [place] % (Auto) 9.4 Eos % (Auto) 0.5 Baso % (Auto) 0.3 Lymph # (Auto) 1.5 [place] # (Auto) 1.3 H Eos # (Auto) 0.1 Baso # (Auto) 0.0 Abs Immat Gran (auto) 0.07 H Absolute Neuts (auto) 10.5 H Absolute Nucleated RBC 0.000 Nucleated RBC % (auto) 0.0 VBG pH 7.46 H VBG pCO2 20 VBG pO2 72 VBG HCO3 15 L VBG O2 Saturation 94.0 VBG Base Excess -7.0 Sodium 145 Potassium 3.6 Chloride 118 H Carbon Dioxide 14 L Anion Gap 17 BUN 49 H Creatinine 2.22 H Estim Creat Clear Calc 37.3 Estimated GFR 30 POC Glucose Random Glucose 327 H D Calcium 8.3 L Phosphorus 2.5 L Magnesium 3.1 H Total Bilirubin 2.3 H AST 58 H ALT 32 Alkaline Phosphatase 83 Ammonia Total Protein 6.1 L Albumin 3.4 L 02/27/22 02/27/22 05:12 05:26 WBC RBC Hgb Hct MCV MCH MCHC RDW Plt Count MPV Immature Gran % (Auto) Neut % (Auto) Lymph % (Auto) [place] % (Auto) Eos % (Auto) Baso % (Auto) Lymph # (Auto) [place] # (Auto) Eos # (Auto) Baso # (Auto) Abs Immat Gran (auto) Absolute Neuts (auto) Absolute Nucleated RBC Nucleated RBC % (auto) VBG pH VBG pCO2 VBG pO2 VBG HCO3 VBG O2 Saturation VBG Base Excess Sodium Potassium Chloride Carbon Dioxide Anion Gap BUN Creatinine Estim Creat Clear Calc Estimated GFR POC Glucose 284 H Random Glucose Calcium Phosphorus Magnesium Total Bilirubin AST ALT Alkaline Phosphatase Ammonia 95 H Total Protein Albumin Progress Note: A&P Assessment and plan (1) Volume depletion: Status: Acute (2) Diabetes: Status: Acute (3) Subdural hematoma: Status: Acute (4) Hepatic encephalopathy: Status: Acute (5) Parkinson disease: Status: Acute (6) Dementia: Status: Acute (7) Schizophrenia: Status: Acute Plan Assessment: 61-year-old gentleman with underlying parkinsonian disease, dementia, schizophrenia, alcoholic cirrhosis admitted with mechanical fall in resultant small subdural hematoma stable on follow-up imaging, now with persistent alteration of mental status and significant hepatic encephalopathy. Plan: Neuro: Alteration of mental status with small subdural hematoma stable on follow-up CT imaging. Now appears to have significant hepatic encephalopathy de spite improving hyperammonemia. Continue with rifaximin and lactulose. Brain MRI essentially normal. Encephalopathy slowly improving now answers and follows commands. Continues on Sinemet for underlying parkinsonian disease. Cardiac: No acute issues. Pulmonary: No acute issues. Renal: High water vapor losses secondary to tachypnea secondary to hepatic encephalopathy. Will increase IVF.. Endo: No acute issues. GI: Alcoholic cirrhosis with hepatic encephalopathy. Gastroenterology [facility] care appreciated. ID: No acute issues Heme/Onc: No acute issues. Psych: No acute issues. Underlying history of schizophrenia. Miscellaneous: No acute issues. Prophylaxis: Heparin Diet: tube feeds until swallow evaluation Quality Stroke Does the patient have a stroke diagnosis?: No VTE Prior VTE?: No VTE Risk Level:: Medical - moderate - high VTE Device Contraindication: N/A - Device Ordered VTE Drug Contraindication: Treatment Not Indicated
[2022-02-27] MEDS: cefTRIAXone sodium 1 GM in 0.9 % Sodium Chloride 50 ML IV (12:25)
[2022-02-27 12:27] LABS: Glucose, Whole Blood 377 mg/dL (60-115)
--- NOTE | 2022-02-27 14:10 | MHC.CM.PN ---
NIVIA UPDATED IN [employer]SCRIPTS.
[2022-02-27 18:12] LABS: Glucose, Whole Blood 368 mg/dL (60-115)
[2022-02-27 18:49] LABS: Anion Gap 18 (12-20); Blood Urea Nitrogen 57 mg/dL (9-16); Carbon Dioxide 14 mmol/L (22-29); Chloride 115 mmol/L (96-108); Creatinine Clr Calc Pharmacy 32.5; Estimated Glomerular Filt Rate 26; Glucose Random 418 mg/dL (60-115); Potassium 3.7 mmol/L (3.3-5.1); Sodium 143 mmol/L (135-145)
[2022-02-27] MEDS: amLODIPine Besylate 10 MG TABLET PO (20:02)
[2022-02-27 21:19] LABS: Glucose, Whole Blood 365 mg/dL (60-115)
[2022-02-27] MEDS: Insulin Glargine,Hum.rec.anlog 100 UNIT/ML 10 ML VIAL 15 UNIT SUBCUT (21:49)
[2022-02-27 23:31] LABS: Glucose, Whole Blood 343 mg/dL (60-115)
[2022-02-28] VITALS (28 sets, daily range): BP systolic 127–163; BP diastolic 38–65; PULSE 66–105; RESP 21–40; TEMP 38.1; O2SAT 88–93
[2022-02-28] MEDS: niCARdipine HCL 25 MG in 0.9 % Sodium Chloride 250 ML 52 MG IVCONT ×5 (00:01→21:39)
[2022-02-28 00:20] LABS: VBG Base Excess -8.1 mmol/L; VBG HCO3 15 mmol/L (22-26); VBG pCO2 23 mmHg; VBG pH 7.42 (7.32-7.43); VBG pO2 61 mmHg
[2022-02-28 00:22] LABS: Venous Blood Gas Refer to POC result
[2022-02-28 00:41] LABS: Anion Gap 15 (12-20); Blood Urea Nitrogen 61 mg/dL (9-16); Calcium 7.7 mg/dL (8.4-10.2); Carbon Dioxide 15 mmol/L (22-29); Chloride 115 mmol/L (96-108); Creatinine Clr Calc Pharmacy 31.1; Estimated Glomerular Filt Rate 24; Glucose Random 384 mg/dL (60-115); Magnesium 3.1 mg/dL (1.6-2.6); Phosphorus 3.4 mg/dL (2.7-4.5); Potassium 3.4 mmol/L (3.3-5.1); Sodium 142 mmol/L (135-145)
[2022-02-28] MEDS: Insulin Lispro 100 UNIT/ML 3 ML VIAL SUBCUT ×4 (00:44→18:22)
[2022-02-28] MEDS: Furosemide 40 MG/4 ML VIAL IVPUSH (00:53)
[2022-02-28] MEDS: Potassium Chloride Packet 20 MEQ PACKET 60 MEQ PO (00:54)
[2022-02-28] MEDS: 0.9 % Sodium Chloride Flush 3 ML SYRINGE IVFLUSH ×3 (01:07→16:29)
[2022-02-28] MEDS: fentaNYL citrate/PF 100 MCG/2 ML VIAL 25 MCG IVPUSH ×3 (01:45→05:28)
--- NOTE | 2022-02-28 02:56 | PC.NURSE ---
Assumed care at 19:00. Patient was initially concerning for appearing to be unarousable with no gag, and not rousable to deep pain, but after some repositioning and rousing, he was found to withdraw to pain on bilateral lower extremities, and to grimace in response to facial stimuli, as well as oral care, and he was also squeezing his eyes shut when nursing would try to evaluate his pupillary response. Found to have 4 mm pupils, PERRL bilaterally, positive cough elicited with deep suctioning. No sedation in use. Patient was initially on room air and had coarse crackles with diminished bases bilaterally to auscultation. Provider initially deep suctioned left nare for copious amount of granda/dark colored secretions with good effect in response to episodic desaturation to the 87-89% range SpO2. He was maintained on room air, with SpO2 in the low 90's, but was tachypneic in the 20's-30's, and would repeatedly develop audible congestion, and episodic desaturation, was deep suctioned again by RT, then RT placed nasal trumpet at about 22:00, with good effect, and patient suctioned again for modest amounts of granda thick secretions from the left nare. Patient was placed on 2 LPM nasal cannula by RT around the time of placement of trumpet, as above. Patient was progressively having worsening tachypneia and work of breathing, RR around 40, abdominal breathing and accessory muscle use. Patient has peripheral and central edema, with +3 pitting in hands, +2 to feet and legs, and +1-+2 to hips, and patient with poor urine outputs around 15 cc's per hour, with dark nany color, and [employer] notified, and new order for 40 mg IV lasix, minimal effect. Patient had two runs of atrial ectopy, with second run with rate 140 max, and otherwise in sinus rhythm with elevated T waves and periods with BBB periods without BBB as well, and occasional PVCs and PACs. Continues on cardene gtt, at 5 mg/hour, was uptitrated to 7.5 for a SBP of 170, then titrated back down. holding around SBP of 150. Continues on sodium bicarbonate gtt. Patient with lactulose therapy changed today by provider to BID, and copious amount of stool. had 600 ccs of measured stool, and easily a liter more of stool today in repeated episodes of loose brown BMs, and rectal tube was placed in afternoon. Patient does have a stage 2 coccygeal slit and some blanching redness to the left buttock and scattered through buttocks. Overnight, patient's WOB was increasing, and [employer]ER ordered 25 mcg fentanyl x1, followed by PRN fentanyl 25 mcg. Noted to have developed leukocytosis yesterday, not apparently cultured, discussed with RAILRO[employer]ARD WORKER, continues on ceftriaxone, also with mild elevation in temp 99.1. Critical serum glu returned today 418, and rechecked 2 hours later after 10 U lispro per [employer]ILRO[employer] WORKER, and was still elevated 365 and patient was diaphoretic, Had repeated criticallyt high Glu of 384, also reported to RAILROAD [employer] WORKER. Noted trend of POC glucose having been critically high since noon 02/27, and with POC mostly over 200 for the day before, discussed with RAILROAD YARD WORKER, total of 25 units lispro overnight and 15 units of lantus so far this shift.
[2022-02-28 05:24] LABS: VBG Base Excess -7.1 mmol/L; VBG HCO3 16 mmol/L (22-26); VBG pCO2 24 mmHg; VBG pH 7.42 (7.32-7.43); VBG pO2 43 mmHg
[2022-02-28 05:28] LABS: Basophils Percent Auto 0.1 % (0-2); Eosinophils Absolute Auto 0.1 X10*3/uL (0.0-0.4); Eosinophils Percent Auto 0.6 % (0-4); Hemoglobin 7.3 g/dl (14.0-18.0); Imm Gran Abs Auto 0.08 X10*3/uL (0.00-0.03); Imm Gran Pct Auto 0.8 % (0.0-0.4); Lymphocytes Absolute Auto 1.3 X10*3/uL (1.2-4.9); Lymphocytes Percent Auto 13.1 % (20-40); MANUAL DIFF FLAG NO; Mean Corpuscular HGB Conc 35.4 g/dl (31.0-36.0); Mean Corpuscular Hemoglobin 31.6 pg (27.0-33.0); Mean Corpuscular Volume 89.2 fL (80.0-98.0); Mean Platelet Volume 11.3 fL (9.4-12.4); Monocytes Absolute Auto 1.2 X10*3/uL (0.1-1.2); Monocytes Percent Auto 12.1 % (2-11); Neutrophils Absolute Auto 7.5 x10*3/uL (2.0-8.3); Neutrophils Percent Auto 73.3 % (45-73); Platelet Count 77 X10*3/uL (160-400); Red Blood Count 2.31 X10*6/uL (4.60-5.80); Red Cell Distribution Width 17.4 % (11.0-16.0); White Blood Count 10.2 X10*3/uL (4.8-10.8)
[2022-02-28] MEDS: Levothyroxine Sodium 25 MCG TABLET PO (05:28)
[2022-02-28 05:33] LABS: Hematocrit 20.6 % (42.0-52.0)
[2022-02-28 05:35] LABS: Ammonia 50 umol/L (13-55)
[2022-02-28 05:47] LABS: Glucose, Whole Blood 278 mg/dL (60-115)
[2022-02-28 05:54] LABS: Albumin Level 3.1 g/dL (3.5-5.0); Anion Gap 16 (12-20); Blood Urea Nitrogen 65 mg/dL (9-16); Calcium 7.7 mg/dL (8.4-10.2); Carbon Dioxide 14 mmol/L (22-29); Chloride 117 mmol/L (96-108); Creatinine Clr Calc Pharmacy 30.6; Estimated Glomerular Filt Rate 24; Glucose Random 335 mg/dL (60-115); Magnesium 3.5 mg/dL (1.6-2.6); Phosphorus 2.7 mg/dL (2.7-4.5); Potassium 3.8 mmol/L (3.3-5.1); Sodium 143 mmol/L (135-145)
[2022-02-28 06:37] LABS: Venous Blood Gas Refer to POC result
[2022-02-28] MEDS: Calcium Gluconate/NaCl,Iso-Osm 1 GM/50 ML PLAST..BAG IV (08:12)
--- NOTE | 2022-02-28 09:40 | MHC.CLN ---
F/U NGT FEEDING ON HOLD THIS MORNING DUE TO NASAL SECRETIONS. STAGE II COCCYX SLIT IDENTIFIED. CURRENT TUBE FEED ORDER=GLUCERNA AT MAX GOAL RATE OF 70 ML PER HOUR WITH 240 ML FREE WATER FLUSHES Q 6 HOURS. PROVIDES 1680 KCAL (24.3 KCAL/KG CALCULATED METABOLIC WEIGHT); 70 G PROTEIN (1.2 G/KG IBW); 1433 ML FREE WATER PLUS FLUSH 960 XC=2710 ML TOTAL WATER (34.7 ML/KG CMW). FOLLOW FOR TOLERANCE, RESIDUALS, LYTES. WEIGHT=98.3 KG, BMI=35, CALCULATED METABOLIC WEIGHT=68.9 KG, IBW=59.09.
[2022-02-28] MEDS: lisinopriL 40 MG TABLET PO (10:26)
[2022-02-28] MEDS: Lactulose 20 GM/30 ML SOLUTION 40 GM PO (10:26)
[2022-02-28] MEDS: Chlorhexidine Gluc Oral Rinse 15 ML MOUTHWASH BUCCAL ×3 (10:26→20:19)
[2022-02-28] MEDS: Carbidopa/Levodopa 25/100 TABLET 1 TAB PO ×4 (10:27→20:18)
[2022-02-28] MEDS: cefTRIAXone sodium 1 GM in 0.9 % Sodium Chloride 50 ML IV (10:29)
--- NOTE | 2022-02-28 10:43 | P.PNCC_ITS ---
Subjective Subjective Date of Service: 02/28/22 Interval History: Mr. Blackburn was transferred to ICU on February 25 w hepatic encephalopathy. The patient is a 61-year-old gentleman with underlying history of alcoholic liver cirrhosis, dementia, ataxia, parkinsonian disease, and schizophrenia.? He is a resident of [facility]. The patient was sent to the ED on 02/19/2022 because of a high ammonia level on labs drawn at [facility]. ?The patient and also reportedly sustained a mechanical fall and hit his head that morning.? In the ER, his mental status was at baseline, according to Dr. Moon. ?Head CT showed a small right subdural hemato ma. ?Labs showed an ammonia level of 102 (baseline in the 50s).? Total bili was 1.1 (his baseline), transaminases minimally elevated.? BUN/creatinine 29/1.9 (baseline about 16/0.8).? Labs also notable for chronic anemia with Hb 9.8 (baseline about 9), platelet count 78K (baseline 50-70K), INR 1.2, alb 3.2 (baseline about 3.0). The patient was admitted for neuro observation, and he was continued on the lactulose and rifaximin that he takes at the home.? Follow-up CT was unchanged, but his mental status deteriorated. ?He was evaluated by Gastroenterology.? Despite lactulose and rifaximin regimen, his ammonia level continued to rise with worsening hepatic encephalopathy.? An NGT was placed to give him the lactulose and rifaximin. ?He was transferred to ICU on 02/25 for further workup and mx. Brain MRI on 02/26 showed no acute intracranial abnormalities, stable trace right tentorial subdural hematoma, w moderate underlying microangiopathy and gen eralized cerebral volume loss.? He continued on lactulose and rifaximin.? The ammonia level peaked at 168 on 02/24, was down to 95 yesterday, and 50 this morning. ?Rifaximin fell off the orders on 02/26 bec of nonrenewal, I started it again today. On exam this morning, he?s obtunded and moderately tachypneic, altho doesn?t look toxic.? With stimulation, he opens his eyes and looks at me, but is otherwise unresponsive and noninteractive.? Mildly tremulous.? HR 96, BP 127/43, RR high 20s, Sat 91% on room air.? Tmax 100.6 now.? No JVD at 30?.? Chest is CTA with normal expiratory phase.? Heart rate and rhythm are regular normal-sounding S1 and S2.? No murmur or gallops.? Abdomen is benign.? He has very mild anasarca. I spoke with Dr. Moon this morning.? At baseline, the patient mostly uses a wheelchair but is able to walk to the bathroom more transfer bed to chair unassisted.? He normally talks and is interactive. I then spoke with Dr. Alba this morning.? Yesterday, the patient was arousable, following simple commands, and saying a few words. u/o 770 cc x 24 hrs. LABORATORY DATA:? Below.? Notably, white count is 10.2, hemoglobin is down to 7.3 (yesterday was 8.5), platelet count is down to 77,000 (yesterday was 116).? Venous pCO2 this morning was 24.? BUN/creatinine up to 65/2.7 (yesterday 61/2.6), glucose 335, NH3 50, alb 3.1. IMPRESSION: 1. Underlying Parkinson?s dz. 2. Underlying schizophrenia. 3. Underlying dementia. 4. Alcoholic cirrhosis. 5. Trace subdural hematoma on CT and MRI imaging.? Whether that SDH is a consequence of the fall that the patient sustained on the morning of admission is not clear to me, but notwithstanding, the SDH is clinically irrelevant and has nothing to do with the patient?s AMS. 6. AMS.? The patient is presumed to have hepatic encephalopathy, given his elevated ammonia levels.? But what accounts for his decreased MS today, and the worsening of his MS from yesterday to today, despite a normalized ammonia level, is not clear.? He does not appear toxic, has only minimally elevated temp with normal WBC, and I doubt he has meningitis or a reason to do an LP.? I will wait one more day.? But I?ll get a repeat CT today.? In the meantime, continue rifaximin, and continue bid lactulose at reduced dose.? Continue Sinemet for underlying parkinsonian disease. 7. ERNST. ?BUN/creat have been rising since 02/24, with high ratio.? Was thought 2? dehydration.? IVF were increased, but then he was given Lasix this morning bec clinically he was thought to be wet.? On abdominal CT February 24, the kidneys and ureters were unremarkable.? Will ask renal to consult. 8. Hypertension:? On nicardipine.? Add metoprolol. 9. Anemia.? Check hemoccult. 10. Nutrition.? Restart tube feeds at 20cc/hr. Critical Care Time (minutes): 60 Physical Exam Vital Signs: Vital Signs: Last Vital Signs Temp 100.6 F H 02/28/22 08:48 Pulse 96 02/28/22 10:00 Resp 29 H 02/28/22 10:00 BP 127/43 L 02/28/22 10:00 Pulse Ox 93 02/28/22 10:00 BMI result Body Mass Index 34.9 Objective Data Labs CBC & Chem 7: 02/28/22 05:12 02/28/22 05:12 Labs: Laboratory Results - last 24 hr 02/27/22 02/27/22 02/27/22 12:22 18:08 18:22 WBC RBC Hgb Hct MCV MCH MCHC RDW Plt Count MPV Immature Gran % (Auto) Neut % (Auto) Lymph % (Auto) [place] % (Auto) Eos % (Auto) Baso % (Auto) Lymph # (Auto) [place] # (Auto) Eos # (Auto) Baso # (Auto) Abs Immat Gran (auto) Absolute Neuts (auto) Absolute Nucleated RBC Nucleated RBC % (auto) VBG pH VBG pCO2 VBG pO2 VBG HCO3 VBG O2 Saturation VBG Base Excess Sodium 143 Potassium 3.7 Chloride 115 H Carbon Dioxide 14 L Anion Gap 18 BUN 57 H Creatinine 2.55 H Estim Creat Clear Calc 32.5 Estimated GFR 26 POC Glucose 377 H* 368 H* Random Glucose 418 H* Calcium 8.0 L Phosphorus Magnesium Ammonia Albumin 02/27/22 02/27/22 02/28/22 20:24 23:27 00:08 WBC RBC Hgb Hct MCV MCH MCHC RDW Plt Count MPV Immature Gran % (Auto) Neut % (Auto) Lymph % (Auto) [place] % (Auto) Eos % (Auto) Baso % (Auto) Lymph # (Auto) [place] # (Auto) Eos # (Auto) Baso # (Auto) Abs Immat Gran (auto) Absolute Neuts (auto) Absolute Nucleated RBC Nucleated RBC % (auto) VBG pH VBG pCO2 VBG pO2 VBG HCO3 VBG O2 Saturation VBG Base Excess Sodium 142 Potassium 3.4 Chloride 115 H Carbon Dioxide 15 L Anion Gap 15 BUN 61 H Creatinine 2.66 H Estim Creat Clear Calc 31.1 Estimated GFR 24 POC Glucose 365 H* 343 H Random Glucose 384 H* Calcium 7.7 L Phosphorus 3.4 Magnesium 3.1 H Ammonia Albumin 02/28/22 02/28/22 02/28/22 00:11 05:11 05:12 WBC RBC Hgb Hct MCV MCH MCHC RDW Plt Count MPV Immature Gran % (Auto) Neut % (Auto) Lymph % (Auto) [place] % (Auto) Eos % (Auto) Baso % (Auto) Lymph # (Auto) [place] # (Auto) Eos # (Auto) Baso # (Auto) Abs Immat Gran (auto) Absolute Neuts (auto) Absolute Nucleated RBC Nucleated RBC % (auto) VBG pH 7.42 7.42 VBG pCO2 23 24 VBG pO2 61 43 VBG HCO3 15 L 16 L VBG O2 Saturation 90.0 72.0 VBG Base Excess -8.1 -7.1 Sodium Potassium Chloride Carbon Dioxide Anion Gap BUN Creatinine Estim Creat Clear Calc Estimated GFR POC Glucose Random Glucose Calcium Phosphorus Magnesium Ammonia 50 Albumin 02/28/22 02/28/22 02/28/22 05:12 05:12 05:40 WBC 10.2 RBC 2.31 L Hgb 7.3 L Hct 20.6 L* MCV 89.2 MCH 31.6 MCHC 35.4 RDW 17.4 H Plt Count 77 L D MPV 11.3 Immature Gran % (Auto) 0.8 H Neut % (Auto) 73.3 H Lymph % (Auto) 13.1 L [place] % (Auto) 12.1 H Eos % (Auto) 0.6 Baso % (Auto) 0.1 Lymph # (Auto) 1.3 [place] # (Auto) 1.2 Eos # (Auto) 0.1 Baso # (Auto) 0.0 Abs Immat Gran (auto) 0.08 H Absolute Neuts (auto) 7.5 Absolute Nucleated RBC 0.000 Nucleated RBC % (auto) 0.0 VBG pH VBG pCO2 VBG pO2 VBG HCO3 VBG O2 Saturation VBG Base Excess Sodium 143 Potassium 3.8 Chloride 117 H Carbon Dioxide 14 L Anion Gap 16 BUN 65 H Creatinine 2.71 H Estim Creat Clear Calc 30.6 Estimated GFR 24 POC Glucose 278 H Random Glucose 335 H Calcium 7.7 L Phosphorus 2.7 Magnesium 3.5 H* Ammonia Albumin 3.1 L Quality Stroke Does the patient have a stroke diagnosis?: No VTE Prior VTE?: No VTE Risk Level:: Medical - moderate - high VTE Device Contraindication: N/A - Device Ordered VTE Drug Contraindication: Treatment Not Indicated Critical Care Time Critical Care Time (minutes): 60
--- NOTE | 2022-02-28 11:43 | MHC.SLORD ---
Speech Language Pathology Order Status: BSE reordered 02/27, attempted to see Pt this am. Nursing staff reported Pt is not appropriate/not adequately awake at this time to attempt swallow evaluation. Will re-check if appropriate 03/01.
[2022-02-28] MEDS: Sodium Bicarbonate 8.4% 50 MEQ in Dextrose 5 % 950 ML IV (13:09)
[2022-02-28 13:10] LABS: Glucose, Whole Blood 252 mg/dL (60-115)
[2022-02-28 15:45] LABS: OBS Int Ctl Valid YES; OBS1 NEGATIVE (NEGATIVE)
[2022-02-28 16:37] LABS: Influenza A PCR NEGATIVE (Negative); Influenza B PCR NEGATIVE (Negative); Resp Syncy Virus RNA Qual PCR NEGATIVE (Negative); SARS COV2 PCR INHOUSE NEGATIVE (Negative)
[2022-02-28 18:21] LABS: Glucose, Whole Blood 234 mg/dL (60-115)
[2022-02-28] MEDS: Metoprolol Tartrate 50 MG TABLET G-TUBE (20:18)
[2022-02-28] MEDS: rifAXIMin 550 MG TABLET PO (20:18)
[2022-02-28] MEDS: amLODIPine Besylate 10 MG TABLET PO (20:18)
[2022-02-28] MEDS: Lactulose 20 GM/30 ML SOLUTION PO (20:19)
[2022-02-28] MEDS: Insulin Glargine,Hum.rec.anlog 100 UNIT/ML 10 ML VIAL 20 UNIT SUBCUT (21:32)
[2022-02-28] MEDS: Albuterol/Iprat 2.5/0.5MG 3 ML AMPUL.NEB INHALE (23:03)
[2022-02-28] MEDS: Acetaminophen 325 MG TABLET 650 MG PO (23:13)
[2022-02-28 23:58] LABS: Glucose, Whole Blood 242 mg/dL (60-115)
[2022-03-01] VITALS (29 sets, daily range): BP systolic 122–151; BP diastolic 43–65; PULSE 61–91; RESP 12–44; TEMP 37–38; O2SAT 89–97
[2022-03-01] MEDS: Insulin Lispro 100 UNIT/ML 3 ML VIAL SUBCUT ×3 (00:03→18:16)
[2022-03-01] MEDS: Furosemide 20 MG/2 ML VIAL IVPUSH ×2 (00:14→02:27)
[2022-03-01 00:57] LABS: B Type Natriuretic Peptide 1186 pg/mL (<100)
[2022-03-01] MEDS: fentaNYL citrate/PF 100 MCG/2 ML VIAL 25 MCG IVPUSH ×3 (02:26→21:14)
[2022-03-01 02:33] LABS: MANUAL DIFF FLAG NO
[2022-03-01 02:37] LABS: Venous Blood Gas Refer to POC result
[2022-03-01 02:37] LABS: VBG Base Excess -7.8 mmol/L; VBG HCO3 14 mmol/L (22-26); VBG pCO2 18 mmHg; VBG pH 7.48 (7.32-7.43); VBG pO2 78 mmHg
[2022-03-01] MEDS: Ampicillin Sodium/Sulbactam Na 3 GM in 0.9 % Sodium Chloride 100 ML IV ×2 (02:44→15:12)
[2022-03-01 02:57] LABS: Lactic Acid 2.1 mmol/L (0.5-2.0)
[2022-03-01 02:58] LABS: Alanine Aminotransferase 12 U/L (0-40); Albumin Level 2.9 g/dL (3.5-5.0); Alkaline Phosphatase 70 U/L (39-117); Anion Gap 15 (12-20); Aspartate Amino Transferase 55 U/L (5-37); Blood Urea Nitrogen 71 mg/dL (9-16); Calcium 7.8 mg/dL (8.4-10.2); Carbon Dioxide 15 mmol/L (22-29); Chloride 116 mmol/L (96-108); Creatinine Clr Calc Pharmacy 29.4; Estimated Glomerular Filt Rate 23; Glucose Random 250 mg/dL (60-115); Sodium 143 mmol/L (135-145); Total Protein 5.5 g/dL (6.5-8.0)
[2022-03-01 03:02] LABS: Basophils Percent Auto 0.1 % (0-2); Eosinophils Percent Auto 0.4 % (0-4); Hematocrit 21.5 % (42.0-52.0); Hemoglobin 7.5 g/dl (14.0-18.0); Imm Gran Abs Auto 0.06 X10*3/uL (0.00-0.03); Imm Gran Pct Auto 0.6 % (0.0-0.4); Lymphocytes Absolute Auto 1.3 X10*3/uL (1.2-4.9); Lymphocytes Percent Auto 12.1 % (20-40); Mean Corpuscular HGB Conc 34.9 g/dl (31.0-36.0); Mean Corpuscular Hemoglobin 31.1 pg (27.0-33.0); Mean Corpuscular Volume 89.2 fL (80.0-98.0); Mean Platelet Volume 11.4 fL (9.4-12.4); Monocytes Absolute Auto 1.3 X10*3/uL (0.1-1.2); Monocytes Percent Auto 12.1 % (2-11); Neutrophils Percent Auto 74.7 % (45-73); Platelet Count 107 X10*3/uL (160-400); Red Blood Count 2.41 X10*6/uL (4.60-5.80); Red Cell Distribution Width 17.7 % (11.0-16.0); White Blood Count 10.7 X10*3/uL (4.8-10.8)
[2022-03-01] MEDS: niCARdipine HCL 25 MG in 0.9 % Sodium Chloride 250 ML 52 MG IVCONT (03:02)
[2022-03-01 04:10] LABS: Procalcitonin 0.82 ng/mL
[2022-03-01 04:32] LABS: Reflex Lactate? Lactic Acid Added
[2022-03-01 05:07] LABS: ~Lactic Acid-LAB USE ONLY 2.3 mmol/L (0.5-2.0)
[2022-03-01 05:35] LABS: MANUAL DIFF FLAG NO
[2022-03-01 05:37] LABS: VBG Base Excess -7.9 mmol/L; VBG HCO3 14 mmol/L (22-26); VBG pCO2 22 mmHg; VBG pH 7.42 (7.32-7.43); VBG pO2 60 mmHg
[2022-03-01 05:37] LABS: Basophils Percent Auto 0.2 % (0-2); Eosinophils Absolute Auto 0.1 X10*3/uL (0.0-0.4); Eosinophils Percent Auto 0.5 % (0-4); Hematocrit 23.2 % (42.0-52.0); Hemoglobin 8.1 g/dl (14.0-18.0); Imm Gran Abs Auto 0.08 X10*3/uL (0.00-0.03); Imm Gran Pct Auto 0.7 % (0.0-0.4); Lymphocytes Absolute Auto 1.4 X10*3/uL (1.2-4.9); Lymphocytes Percent Auto 11.4 % (20-40); Mean Corpuscular HGB Conc 34.9 g/dl (31.0-36.0); Mean Corpuscular Hemoglobin 31.2 pg (27.0-33.0); Mean Corpuscular Volume 89.2 fL (80.0-98.0); Mean Platelet Volume 10.9 fL (9.4-12.4); Monocytes Absolute Auto 1.5 X10*3/uL (0.1-1.2); Monocytes Percent Auto 12.1 % (2-11); Neutrophils Absolute Auto 9.1 x10*3/uL (2.0-8.3); Neutrophils Percent Auto 75.1 % (45-73); Platelet Count 134 X10*3/uL (160-400); Red Cell Distribution Width 17.6 % (11.0-16.0); White Blood Count 12.1 X10*3/uL (4.8-10.8)
[2022-03-01 05:39] LABS: Venous Blood Gas Refer to POC result
[2022-03-01 06:08] LABS: Alanine Aminotransferase 18 U/L (0-40); Alkaline Phosphatase 79 U/L (39-117); Anion Gap 17 (12-20); Aspartate Amino Transferase 57 U/L (5-37); Bilirubin Total 2.4 mg/dL (0.0-1.0); Blood Urea Nitrogen 70 mg/dL (9-16); Calcium 7.8 mg/dL (8.4-10.2); Carbon Dioxide 14 mmol/L (22-29); Chloride 118 mmol/L (96-108); Creatinine Clr Calc Pharmacy 29.1; Estimated Glomerular Filt Rate 23; Glucose Random 234 mg/dL (60-115); Potassium 3.2 mmol/L (3.3-5.1); Sodium 146 mmol/L (135-145); Total Protein 5.7 g/dL (6.5-8.0)
[2022-03-01] MEDS: Levothyroxine Sodium 25 MCG TABLET PO (06:43)
[2022-03-01 06:50] LABS: Glucose, Whole Blood 226 mg/dL (60-115)
[2022-03-01 06:52] LABS: Reflex Lactate? 2 Y
--- NOTE | 2022-03-01 07:05 | PC.NURSE ---
On assessment patient having increased WOB, LS coarse /crackles. Patient ended up developing a temp of 100.5. Audibly congested , suctioned through left nare , feeding tube contents noted. Feeding placed on hold per providers order. Complete w/u ordered by PA. Fentanyl administered x3 doses throughout night for increased WOB, with good effect. CXR, blood cultures, labs , and sputum specimen sent. Ampicillin started after blood cultures done. Fever 99.7 after receiving Tylenol. VSS at present , will continue to monitor and report any changes.
[2022-03-01 07:35] LABS: ~Lactic Acid-LAB USE ONLY 2.1 mmol/L (0.5-2.0)
[2022-03-01] MEDS: Albuterol/Iprat 2.5/0.5MG 3 ML AMPUL.NEB INHALE ×4 (07:46→18:55)
[2022-03-01] MEDS: 0.9 % Sodium Chloride Flush 3 ML SYRINGE IVFLUSH ×2 (08:52→15:16)
[2022-03-01 09:32] LABS: Procalcitonin 0.85 ng/mL
--- NOTE | 2022-03-01 10:00 | MHC.CLN ---
F/U NGT FEEDING ON HOLD 02/28 AND 03/01 DUE TO NASAL SECRETIONS. STAGE II COCCYX SLIT IDENTIFIED. DISCUSSED IN ROUNDS. CONTINUE TO HOLD TODAY AND CONSIDER ALTERNATE TUBE/ADMINISTRATION OF NUTRITION. CONTINUE TO FOLLOW WITH TEAM.
--- NOTE | 2022-03-01 10:13 | MHC.SLORD ---
Speech Language Pathology Order Status: Attempted again this a.m. to see Pt for BSE. Nursing advised Pt is still not awake/alert enough for p.o. trials. Would recommend MD re-refer for BSE at point when Pt is appropriate for evaluation to start P.O. diet.
--- NOTE | 2022-03-01 10:47 | PM.CNNEP ---
History of Present Illness Reason for Consult Consult date: 03/01/22 Reason for consult: ERNST, HAGMA, Hypervolemia, Hypernatremia Chief Complaint Chief complaint: Fall History of Present Illness Narrative: The patient is a 61-year-old gentleman with underlying history of alcoholic liver cirrhosis, dementia, ataxia, parkinsonian disease, and schizophrenia who is a resident of [facility] and presented to the ED on 02/19/2022 because of a high ammonia level on labs drawn at [facility]. ?He also reportedly sustained a mechanical fall and hit his head that morning.? In the ER, his mental status was at baseline, according to Dr. Moon. ?Head CT showed a small right subdural hematoma. ?Labs showed an ammonia level of 102 (baseline in the 50s).? Total bili was 1.1 (his baseline), transaminases minimally elevated.? BUN/creatinine 29/1.9 (baseline about 16/0.8).? Labs also notable for chronic anemia with Hb 9.8 (baseline about 9), platelet count 78K (baseline 50-70K), INR 1.2, alb 3.2 (baseline about 3.0). The patient was admitted for neuro observation, and he was continued on the lactulose and rifaximin that he takes at the home.? Repeat head CT without contrast showed no further exacerbation of subdural hemtaoma. Despite lactulose and rifaximin regimen his ammonia level continued to rise with worsening hepatic encephalopathy and he was transferred to intensive care unit for further workup and management on 02/25/2022. There was initially improvement in S-Cr however on 02/25 renal fxn began to up-trend once again with no further evidence of renal recovery. Overnight patient also become oliguric. He was given 20 mg IV lasix x 2 with about 30 cc/hr uop over last 4 hours. Nephrology subsequently consulted for worsening renal function. At time of my evaluation this am, the patietn was not able to provide ROS. He appeared anxious, tachypneic, but allowed/cooperated with PE. José catheter in place with noted dark yellow urine. ROS otherwise negative. Review of Systems Review of Systems Yes Unobtainable due to mental condition Constitutional: Reports as per HPI Reports confusion Psychiatric: Reports confusion PMFSH Past Medical History Medical History (Updated 03/01/22 @ 10:50 by Jose Adhikari MD) Ataxia Dementia Diabetes Drug abuse, cocaine type Essential tremor ETOH abuse Orthostatic hypotension Parkinson disease Schizophrenia Family History Family History Other Hypertension Social History Social History Household Members: Unknown / Unable to assess Household Members Other:: Other residents Housing: Other Housing Other:: [facility] Do you presently have visiting nurse or other home services: Yes Unable to assess alcohol history related to: Unable to respond Alcohol intake: former Patient Tobacco Use Status: Former Tobacco user Cigarettes Per Day: 1 Second Hand Smoke Exposure: No Use of substances other than those prescribed or required for medical reasons: No Currently Displaying Signs/Symptoms of Drug Intoxication Withdrawal: No Spiritual Healthcare Practices: unable to assess [facility] Healthcare Practices: unable to assess Cultural Healthcare Practices: unable to assess Advance Directives: No Advance Directives Information Provided: No Do you have thoughts of harming others: None Do you have a plan to hurt others: No Plan Recently lost weight without trying: Unsure Eating poorly because of decreased appetite: No Nutrition Risks: No Nutritional Risk Poor oral hygiene: No service: No ([employer]) Current occupational status: disabled Meds Allergies Allergy/AdvReac Type Severity Reaction Status Date / Time POLLEN/RAGWEED Allergy Unknown UNKNOWN Uncoded 02/19/22 09:22 Active Medications: Current Medications Acetaminophen (Acetaminophen 325 Mg Tablet) 650 mg PO Q6H PRN PRN Reason: Fever Last Admin: 02/28/22 23:13 Dose: 650 mg Documented by: Albuterol/Ipratropium (Albuterol/Iprat 2.5/0.5mg 3 Ml Ampul.Neb) 3 ml INHALE RQ4H WHILE AWAKE [facility] Last Admin: 03/01/22 07:46 Dose: 3 ml Documented by: Amlodipine Besylate (Amlodipine Besylate 10 Mg Tablet) 10 mg PO BEDTIME ANDREY; Protocol Last Admin: 02/28/22 20:18 Dose: 10 mg Documented by: Carbidopa/Levodopa (Carbidopa/Levodopa 25/100 Tablet) 1 tab PO QID ANDREY Last Admin: 02/28/22 20:18 Dose: 1 tab Documented by: Chlorhexidine Gluconate (Chlorhexidine Gluc Oral Rinse 15 Ml Mouthwash) 15 ml BUCCAL TID ANDREY Last Admin: 02/28/22 20:19 Dose: 15 ml Documented by: Fentanyl (Fentanyl Citrate/Pf 100 Mcg/2 Ml Vial) 25 mcg IVPUSH Q2H PRN; Protocol PRN Reason: Restlessness Last Admin: 03/01/22 05:01 Dose: 25 mcg Documented by: Nicardipine HCl 25 mg/ Sodium (Chloride) 260 mls @ 0 mls/hr IVCONT .Q0M [facility]; Protocol Last Titration: 03/01/22 08:05 Dose: Infused Documented by: Sodium Bicarbonate 50 meq/ (Dextrose) 1,000 mls @ 50 mls/hr IV .Q20H [facility] Last Admin: 02/28/22 13:09 Dose: 50 mls/hr Documented by: Ampicillin Sodium/Sulbactam (Sodium 3 gm/ Sodium Chloride) 100 mls @ 200 mls/hr IV Q12H [facility] Last Infusion: 03/01/22 04:09 Dose: Infused Documented by: Insulin Glargine (Insulin Glargine,Hum.Rec.Anlog 100 Unit/Ml 10 Ml Vial) 20 unit SUBCUT BEDTIME [facility] Last Admin: 02/28/22 21:32 Dose: 20 unit Documented by: Insulin Human Lispro (Insulin Lispro 100 Unit/Ml 3 Ml Vial) 0 unit SUBCUT Q6H [facility]; Protocol Last Admin: 03/01/22 06:49 Dose: Not Given Documented by: Lactulose (Lactulose 20 Gm/30 Ml Solution) 20 gm PO BID [facility] Last Admin: 02/28/22 20:19 Dose: 20 gm Documented by: Levothyroxine Sodium (Levothyroxine Sodium 25 Mcg Tablet) 25 mcg PO DAILY@0600 [facility] Last Admin: 03/01/22 06:43 Dose: 25 mcg Documented by: Lisinopril (Lisinopril 40 Mg Tablet) 40 mg PO DAILY [facility]; Protocol Last Admin: 02/28/22 10:26 Dose: 40 mg Documented by: Metoprolol Tartrate (Metoprolol Tartrate 50 Mg Tablet) 50 mg G-TUBE BID [facility]; Protocol Last Admin: 02/28/22 20:18 Dose: 50 mg Documented by: Ondansetron HCl (Ondansetron Hcl 4 Mg/2 Ml Vial) 4 mg IVPUSH Q4H PRN PRN Reason: Nausea and Vomiting Last Admin: 02/21/22 09:19 Dose: 4 mg Documented by: Pharmacy Consult (Consult Rx Perform Med Rec) 1 each MISCELLANE ONCE PRN PRN Reason: Consult order Rifaximin (Rifaximin 550 Mg Tablet) 550 mg PO BID [facility] Last Admin: 02/28/22 20:18 Dose: 550 mg Documented by: Senna (Sennosides 8.6 Mg Tablet) 8.6 mg PO DAILY PRN PRN Reason: Constipation Sodium Chloride (0.9 % Sodium Chloride Flush 3 Ml Syringe) 3 ml IVFLUSH QSHIFT [facility] Last Admin: 03/01/22 08:52 Dose: 3 ml Documented by: Home Medications Medication Instructions Recorded Confirmed Last Taken Type aspirin 81 mg tablet,delayed 81 mg PO DAILY 11/18/20 02/19/22 Unknown History release benztropine 1 mg tablet 1 mg PO BID 11/18/20 02/19/22 Unknown History carbidopa 25 mg-levodopa 100 mg 1 tab PO QID 11/18/20 02/19/22 Unknown History tablet (Sinemet) fluphenazine decanoate 25 mg/mL 50 mg SUBCUT Q14D 11/18/20 02/19/22 02/05/22 History injection solution loratadine 10 mg tablet 10 mg PO DAILY 11/18/20 02/19/22 Unknown History metformin 1,000 mg tablet 1,000 mg PO BIDWM 11/18/20 02/19/22 Unknown History miconazole nitrate 2 % topical 1 spray TOPICAL BID PRN 11/18/20 02/19/22 Unknown History spray (Lotrimin AF) tramadol 50 mg tablet 50 mg PO BID 11/18/20 02/19/22 Unknown History docusate sodium 100 mg tablet 100 mg PO DAILY PRN 12/10/20 02/19/22 Unknown History insulin detemir U-100 100 unit/mL 25 unit SUBCUT BID 12/10/20 02/19/22 Unknown History (3 mL) subcutaneous pen (Levemir FlexTouch U-100 Insulin) sennosides 8.6 mg tablet (senna) 8.6 mg PO DAILY PRN 12/10/20 02/19/22 Unknown History ziprasidone HCl 20 mg capsule 20 mg PO DAILY@1800 12/10/20 02/19/22 Unknown History amlodipine 10 mg tablet 1 tab PO BEDTIME 02/19/22 02/19/22 Unknown History furosemide 40 mg tablet 1 tab PO DAILY 02/19/22 02/19/22 Unknown History gabapentin 600 mg tablet 2 tab PO TID 02/19/22 02/19/22 Unknown History lactulose 20 gram/30 mL oral 40 g PO 8XD 02/19/22 02/19/22 Unknown History solution levothyroxine 25 mcg tablet 1 tab PO DAILY 02/19/22 02/19/22 Unknown History lisinopril 40 mg tablet 1 tab PO DAILY 02/19/22 02/19/22 Unknown History multivitamin 1 tab PO DAILY 02/19/22 02/19/22 Unknown History rifaximin 550 mg tablet (Xifaxan) 1 tab PO BID 02/19/22 02/19/22 Unknown History Physical Exam Vital Signs: Last Vital Signs Temp 98.6 F 03/01/22 08:00 Pulse 91 03/01/22 10:00 Resp 35 H 03/01/22 10:00 BP 142/49 H 03/01/22 10:00 Pulse Ox 89 L 03/01/22 10:00 BMI result Body Mass Index 34.9 Const General: acute distress and confusion Orientation/consciousness: confusion HEENT Head: Yes normal to inspection, Yes normocephalic and Yes atraumatic Neck Neck: Yes no JVD Resp Effort & Inspection: labored and tachypneic Auscultation: diminished lung sounds Cardio Jugular venous distension: no JVD Rate: tachycardic GI Inspection: Yes distended Auscultation: normal bowel sounds Other: josé catheter in place Neuro General: confusion Extrem General: Yes edema Left upper extremity: edema Results Lab Results Result Diagrams: 03/01/22 05:24 03/01/22 05:24 Lab results: Chemistry 02/27/22 02/27/22 02/28/22 05:12 18:22 00:08 Sodium 145 143 142 Potassium 3.6 3.7 3.4 Carbon Dioxide 14 L 14 L 15 L BUN 49 H 57 H 61 H Creatinine 2.22 H 2.55 H 2.66 H Calcium 8.3 L 8.0 L 7.7 L Phosphorus 2.5 L 3.4 02/28/22 03/01/22 03/01/22 05:12 02:27 05:24 Sodium 143 143 146 H Potassium 3.8 3.0 L D 3.2 L Carbon Dioxide 14 L 15 L 14 L BUN 65 H 71 H 70 H Creatinine 2.71 H 2.82 H 2.85 H Calcium 7.7 L 7.8 L 7.8 L Phosphorus 2.7 Hematology 02/27/22 02/28/22 03/01/22 05:12 05:12 02:28 WBC 13.4 H 10.2 10.7 Hgb 8.5 L 7.3 L 7.5 L Plt Count 116 L D 77 L D 107 L D 03/01/22 05:24 WBC 12.1 H Hgb 8.1 L Plt Count 134 L D Assessment and Plan (1) ERNST (acute kidney injury): Status: Acute (2) Metabolic acidosis: Status: Acute (3) Hypernatremia: Status: Acute (4) Hypervolemia: Status: Acute (5) Hypoalbuminemia: Status: Acute Plan ERNST, oliguric: #)ERNST with oliguria in setting of hepatic encephalopathy. -I have added repeat urine studies for evaluation (UA, U-Na, U-UN, U-Cr, U-K) Suspect his worsening ERNST is from hypervolemia with noted underlying liver failure and cardiomegaly. -He would benefit from 2D echo. On exam, the patient appears hypervolemic, with noted oliguria and prior imaging revealing cardiomegaly. -Suggest: albumin infusion (25% albumin 100 ml x 1) following by 60 mg IV lasix. If no resolution of oliguria within 2 hours, initiate lasix gtt at 10 mg/hr. -Monitor I/O's -daily weights, -avoidance of nephrotoxic agents. - DC lisinopril. Hold metformin. Avoidance of nsaids, IV contrast, and renal dosing of abx. -imaging noted. No evidence of hydronephrosis. José in place. #) Hypernatremia, suggest increasing FW flushes for noted 2 L FWD. Na-HCO3 infusion slightly hypotonic which will deliver additional FW. #) HAGMA - agree with Na-HCO3. His HAGMA with secondary respiratory acidosis is likely combination of ernst, lactic acidosis (concern for Asp. PNA), and liver failure. #) Electrolytes - Monitor K and Mg with lasix infusion. Procedures Date of Service Date of Service: 03/01/22
[2022-03-01] MEDS: Lactulose 20 GM/30 ML SOLUTION PO ×2 (11:07→21:18)
[2022-03-01] MEDS: lisinopriL 40 MG TABLET PO (11:07)
[2022-03-01] MEDS: rifAXIMin 550 MG TABLET PO ×2 (11:07→21:17)
[2022-03-01] MEDS: Chlorhexidine Gluc Oral Rinse 15 ML MOUTHWASH BUCCAL ×3 (11:07→21:17)
[2022-03-01] MEDS: Carbidopa/Levodopa 25/100 TABLET 1 TAB PO ×4 (11:12→21:17)
[2022-03-01] MEDS: Metoprolol Tartrate 50 MG TABLET G-TUBE ×2 (11:13→21:17)
[2022-03-01] MEDS: Sodium Bicarbonate 8.4% 50 MEQ in Dextrose 5 % 950 ML IV (11:25)
--- NOTE | 2022-03-01 11:42 | CA_ITS ---
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 Normal LV systolic function with pseudonormal filling pattern with mild LVH 2. Normal cardiac valvular Doppler 3. Normal RV systolic pressure 4. No pericardial effusion Findings Left Ventricle Normal left ventricular size and systolic function. There is mildly increased left ventricular wall thickness. The visually estimated ejection fraction is between 60-65%. Spectral Doppler is indicative of a pseudonormal filling pattern. E/E prime ratio is between 8 and 15 consistent with indeterminate filling pressures. Right Ventricle Normal right ventricular cavity size and systolic function. Atria The left atrium is likely dilated. There is no evidence of interatrial shunt. The right atrium is normal in size. Aortic Valve The aortic valve structure and function is likely normal. There is no aortic valve stenosis. There is no aortic valve regurgitation. Mitral Valve There is mild anterior and moderate posterior mitral leaflet thickening. There is moderate mitral annular calcification. There is trace mitral valve regurgitation. There is no mitral valve stenosis. Pulmonic Valve The pulmonic valve is likely normal. Tricuspid Valve Normal tricuspid valve structure. There is mild tricuspid valve regurgitation. The right ventricular systolic pressure is normal. The right ventricular systolic pressure is 29 mmHg. Normal right atrial pressure. There is no evidence of pulmonary hypertension. Great Vessels All visible segments of the aorta are normal in size. The pulmonary artery was not well visualized. Venous The inferior vena cava is mildly dilated and collapses less than 50% with inspiration. Pericardium/Pleural There is no evidence of pericardial effusion. Prior Study Comparison no previous study in the last 5 years for comparison Measurements 2D Linear Measurements IVSd: 1.25 0.6-0.9/0.6-1.0 cm LVIDd: 5.31 3.9-5.3/4.2-5.9 cm LVIDd Index: 2.57 2.4-3.2/2.2-3.1 cm/m2 LVIDs: 3.21 2.0-3.6 cm LVPWd: 1.31 0.7-1.1 cm LV Mass: 351.23 67-162/88-224 g LV Mass Index: 169.68 43-95/49-115 g/m2 Right Ventricle TAPSE (mm): 24.00 TVS' Davide: 16.00 Tricuspid Valve TR Pk Davide: 1.88 TR Pk Grad: 14.00 RA Press: 15.00 RVSP: 29.00 Updated in Other Vendor System with Status of Final Heber Cifuentes MD electronically signed on 03/01/2022 4:13:41 PM with status of Final
[2022-03-01 12:09] LABS: Glucose, Whole Blood 252 mg/dL (60-115)
--- NOTE | 2022-03-01 12:45 | MHC.CM.PN ---
Pt continues care in ICU: on oxymask and NGT: obtunded and not able to participate in conversation. Clinical updates sent to [facility] where pt is a LTC resident and bed hold. Pt has a guardian and MOLST on file. CM to follow.
[2022-03-01] MEDS: Albumin Human 25 % 100 ML 50 ML IV (16:52)
[2022-03-01] MEDS: Furosemide 100 MG/10 ML VIAL 60 MG IVPUSH (16:53)
--- NOTE | 2022-03-01 17:16 | PM.CCPN ---
Subjective Subjective Date of Service: 03/01/22 Interval History: Mr. Blackburn was transferred to ICU on February 25 with hepatic encephalopathy. The patient is a 61-year-old gentleman with underlying history of alcoholic cirrhosis, dementia, ataxia, Parkinson?s disease, and schizophrenia.? He is a resident of [facility].? He takes lactulose and rifaximin at the home. The patient was sent to the ED on 02/19/2022 because of a high ammonia level on labs drawn at [facility].? The patient also reportedly sustained a mechanical fall and hit his head that morning.? In the ER, his mental status was at baseline, according to Dr. Moon.? Head CT showed a small right subdural hematoma. ?Labs showed an ammonia level of 102 (baseline in the 50s).? Total bili was 1.1 (his baseline), transaminases minimally elevated.? BUN/creatinine 29/1.9 (baseline about 16/0.8).? Labs were also notable for chronic anemia with Hb 9.8 (baseline about 9), platelet count 78K (baseline 50-70K), INR 1.2, alb 3.2 (baseline about 3.0). The patient was admitted for neuro observation, and he was continued on the lactulose and rifaximin that he takes at the home.? Follow-up CT the next morning was unchanged, but his mental status deteriorated.? He was evaluated by Gastroenterology.? Despite the lactulose and rifaximin regimen, his ammonia level continued to rise with worsening hepatic encephalopathy.? An NGT was placed to give him the lactulose and rifaximin.? He was transferred to ICU on 02/25 for further workup and mx. EEG on 02/25 showed ?Severe generalized slowing suggestive of bihemispheric dysfunction.? Metabolic toxic or anoxic encephalopathy, which should be considered.?? Brain MRI on 02/26 showed no acute intracranial abnormalities, stable trace right tentorial subdural hematoma, w moderate underlying microangiopathy and generalized cerebral volume loss.? He continued on lactulose and rifaximin.? The ammonia level peaked at 168 on 02/24 and has come down slowly to 50.? On 02/27, he was started on a low-dose bicarbonate drip because of metabolic acidosis likely secondary to ERNST..? We cut the lactulose to 20mg bid yesterday.? Also started him on metoprolol 50 mg bid in order to d/c the nicardipine he was on, and we also stopped his ceftriaxone. Chest CT yesterday afternoon showed multilobar infiltrates very suggestive of COVID related disease.? We rechecked his COVID PCR and it was negative.? Overnight, he clinically aspirated, with desaturation and tube feeds sucked out of his trachea.? He was given Lasix 40 mg bec of decreased u/o.? CXR early this morning showed multilobar infiltrates, consistent with aspiration.? Cultures were drawn, and he was started on unasyn. On exam yesterday, he was pretty much obtunded, opened his eyes to stimulation and was tracking, but was otherwise noninteractive -- which was worse than the previous day.? Today, he is more alert, more readily opens his eyes and tracks, will nod his head to simple questions, and replies ?yes? to simple questions.? He continues moderately tachypneic, altho doesn?t look toxic.? Mild-moderately tremulous.? HR 69, BP 127/43, RR high 20s, Sat 90% on 5L oxymask.? This morning's venous blood gas on the OxyMask showed 7.42/22/-7. ?Tmax 100.6 last night.? No JVD at 30?.? Chest is slightly rhonchorousis, with normal expiratory phase.? Heart rate and rhythm are regular normal-sounding S1 and S2.? No murmur or gallops.? Abdomen is benign.? He has very mild anasarca. u/o 715 cc x 24 hrs. LABORATORY DATA:? Below.? Notably, white count is bumped to 12, hemoglobin is up to 8.1 after diuresis, platelet count is up to 134K.? Venous pCO2 this morning was 22.? Na 146, bicarb 14, BUN/creatinine up to 70/2.8 (from 65/2.7 yesterday), K 3.2, glucose 234, tbili up to 2.4.? PCT 0.82. ECHOCARDIOGRAM done by the services tech, interpreted by me:? Normal LV size and function, with no wall motion abnormalities.? RV size is normal.? Aortic valve is normal with no AI or .? No MR.? TV had trace TR, with no signif CWD wave.? IVC measured 2.4cm with limited insp collapse. IMPRESSION: 1. Underlying Parkinson?s dz. 2. Underlying schizophrenia. 3. Underlying dementia. 4. Alcoholic cirrhosis. 5. Trace subdural hematoma on CT and MRI imaging.? Whether that SDH is a consequence of the fall that the patient sustained on the morning of admission is not clear to me, but notwithstanding, the SDH is clinically irrelevant and has nothing to do with the patient?s AMS. 6. AMS.? The patient is presumed to have hepatic encephalopathy, given his elevated ammonia levels.? But what accounts for his decreased MS today, and the worsening of his MS from yesterday to today, despite a normalized ammonia level, is not clear.? He does not appear toxic, has only minimally elevated temp with normal WBC, and I doubt he has meningitis or a reason to do an LP.? I will wait one more day.? But I?ll get a repeat CT today.? In the meantime, continue rifaximin, and continue bid lactulose at reduced dose.? Continue Sinemet for underlying parkinsonian disease. 7. Aspiration pneumonia. ?On Unasyn.? Needs an nasoenteral tube.? I put down a Kaofeed tube today, discussed with Dr. Shelton from IR, we?ll try to snake it into the duodenum tomorrow. 8. Hypoxemic resp failure.? 2? above. 9. ERNST. ?BUN/creat have been rising since 02/24, with high ratio.? Was thought 2? dehydration.? IVF were increased, but then he was given Lasix this morning bec clinically he was thought to be wet.? On abdominal CT February 24, the kidneys and ureters were unremarkable.? Echo suggests that the patient is hypervolemic.? Renal consult agrees.? We?ll start him on a Lasix drip and give him a bolus of albumin. 10. Hypertension:? Excellent BP control on the metoprolol, amlodipine, and lisinopril.? Need to cut his lisinopril dose down to 20 mg/day in view of his renal failure. 11. Met acidosis.? Mostly 2? ERNST.? Bicarb drip bec of tachypnea. 12. Hypernatremia.? We?ll continue the bicarb drip in hypotonic D5W. 13. Anemia.? Hemoccult was negative.? RDW is high.? Most likely ACD. 14. Nutrition.? Had to stop his OGT feeds bec of aspiration.? I replaced his [place] sump OGT with a 10Fr Kaofeed.? We?ll try to snake that into his duodenum so he can get enteral feeds. Critical Care Time (minutes): 60 Physical Exam Vital Signs: Vital Signs: Last Vital Signs Temp 99.8 F 03/01/22 16:00 Pulse 69 03/01/22 17:00 Resp 23 H 03/01/22 17:00 BP 146/49 H 03/01/22 17:00 Pulse Ox 95 03/01/22 17:00 BMI result Body Mass Index 34.9 Objective Data Labs CBC & Chem 7: 03/01/22 05:24 03/01/22 05:24 Labs: Laboratory Results - last 24 hr 02/28/22 02/28/22 03/01/22 18:17 23:53 00:08 WBC RBC Hgb Hct MCV MCH MCHC RDW Plt Count MPV Immature Gran % (Auto) Neut % (Auto) Lymph % (Auto) [place] % (Auto) Eos % (Auto) Baso % (Auto) Lymph # (Auto) [place] # (Auto) Eos # (Auto) Baso # (Auto) Abs Immat Gran (auto) Absolute Neuts (auto) Absolute Nucleated RBC Nucleated RBC % (auto) VBG pH VBG pCO2 VBG pO2 VBG HCO3 VBG O2 Saturation VBG Base Excess Sodium Potassium Chloride Carbon Dioxide Anion Gap BUN Creatinine Estim Creat Clear Calc Estimated GFR POC Glucose 234 H 242 H Random Glucose Lactic Acid Lactic Acid F/U @ 2Hr Lactic Acid F/U @ 4Hr Calcium Total Bilirubin AST ALT Alkaline Phosphatase B-Natriuretic Peptide 1186 H Total Protein Albumin Procalcitonin 03/01/22 03/01/22 03/01/22 02:27 02:27 02:27 WBC RBC Hgb Hct MCV MCH MCHC RDW Plt Count MPV Immature Gran % (Auto) Neut % (Auto) Lymph % (Auto) [place] % (Auto) Eos % (Auto) Baso % (Auto) Lymph # (Auto) [place] # (Auto) Eos # (Auto) Baso # (Auto) Abs Immat Gran (auto) Absolute Neuts (auto) Absolute Nucleated RBC Nucleated RBC % (auto) VBG pH VBG pCO2 VBG pO2 VBG HCO3 VBG O2 Saturation VBG Base Excess Sodium 143 Potassium 3.0 L D Chloride 116 H Carbon Dioxide 15 L Anion Gap 15 BUN 71 H Creatinine 2.82 H Estim Creat Clear Calc 29.4 Estimated GFR 23 POC Glucose Random Glucose 250 H Lactic Acid 2.1 H* Lactic Acid F/U @ 2Hr Lactic Acid F/U @ 4Hr Calcium 7.8 L Total Bilirubin 2.0 H AST 55 H ALT 12 Alkaline Phosphatase 70 B-Natriuretic Peptide Total Protein 5.5 L Albumin 2.9 L Procalcitonin 0.82 03/01/22 03/01/22 03/01/22 02:28 02:29 04:45 WBC 10.7 RBC 2.41 L Hgb 7.5 L Hct 21.5 L MCV 89.2 MCH 31.1 MCHC 34.9 RDW 17.7 H Plt Count 107 L D MPV 11.4 Immature Gran % (Auto) 0.6 H Neut % (Auto) 74.7 H Lymph % (Auto) 12.1 L [place] % (Auto) 12.1 H Eos % (Auto) 0.4 Baso % (Auto) 0.1 Lymph # (Auto) 1.3 [place] # (Auto) 1.3 H Eos # (Auto) 0.0 Baso # (Auto) 0.0 Abs Immat Gran (auto) 0.06 H Absolute Neuts (auto) 8.0 Absolute Nucleated RBC 0.000 Nucleated RBC % (auto) 0.0 VBG pH 7.48 H VBG pCO2 18 VBG pO2 78 VBG HCO3 14 L VBG O2 Saturation 97.0 VBG Base Excess -7.8 Sodium Potassium Chloride Carbon Dioxide Anion Gap BUN Creatinine Estim Creat Clear Calc Estimated GFR POC Glucose Random Glucose Lactic Acid Lactic Acid F/U @ 2Hr 2.3 H* Lactic Acid F/U @ 4Hr Calcium Total Bilirubin AST ALT Alkaline Phosphatase B-Natriuretic Peptide Total Protein Albumin Procalcitonin 03/01/22 03/01/22 03/01/22 05:24 05:24 05:28 WBC 12.1 H RBC 2.60 L Hgb 8.1 L Hct 23.2 L MCV 89.2 MCH 31.2 MCHC 34.9 RDW 17.6 H Plt Count 134 L D MPV 10.9 Immature Gran % (Auto) 0.7 H Neut % (Auto) 75.1 H Lymph % (Auto) 11.4 L [place] % (Auto) 12.1 H Eos % (Auto) 0.5 Baso % (Auto) 0.2 Lymph # (Auto) 1.4 [place] # (Auto) 1.5 H Eos # (Auto) 0.1 Baso # (Auto) 0.0 Abs Immat Gran (auto) 0.08 H Absolute Neuts (auto) 9.1 H Absolute Nucleated RBC 0.000 Nucleated RBC % (auto) 0.0 VBG pH 7.42 VBG pCO2 22 VBG pO2 60 VBG HCO3 14 L VBG O2 Saturation 89.0 VBG Base Excess -7.9 Sodium 146 H Potassium 3.2 L Chloride 118 H Carbon Dioxide 14 L Anion Gap 17 BUN 70 H Creatinine 2.85 H Estim Creat Clear Calc 29.1 Estimated GFR 23 POC Glucose Random Glucose 234 H Lactic Acid Lactic Acid F/U @ 2Hr Lactic Acid F/U @ 4Hr Calcium 7.8 L Total Bilirubin 2.4 H AST 57 H ALT 18 Alkaline Phosphatase 79 B-Natriuretic Peptide Total Protein 5.7 L Albumin 3.0 L Procalcitonin 03/01/22 03/01/22 03/01/22 06:05 07:05 08:47 WBC RBC Hgb Hct MCV MCH MCHC RDW Plt Count MPV Immature Gran % (Auto) Neut % (Auto) Lymph % (Auto) [place] % (Auto) Eos % (Auto) Baso % (Auto) Lymph # (Auto) [place] # (Auto) Eos # (Auto) Baso # (Auto) Abs Immat Gran (auto) Absolute Neuts (auto) Absolute Nucleated RBC Nucleated RBC % (auto) VBG pH VBG pCO2 VBG pO2 VBG HCO3 VBG O2 Saturation VBG Base Excess Sodium Potassium Chloride Carbon Dioxide Anion Gap BUN Creatinine Estim Creat Clear Calc Estimated GFR POC Glucose 226 H Random Glucose Lactic Acid Lactic Acid F/U @ 2Hr Lactic Acid F/U @ 4Hr 2.1 H* Calcium Total Bilirubin AST ALT Alkaline Phosphatase B-Natriuretic Peptide Total Protein Albumin Procalcitonin 0.85 03/01/22 12:01 WBC RBC Hgb Hct MCV MCH MCHC RDW Plt Count MPV Immature Gran % (Auto) Neut % (Auto) Lymph % (Auto) [place] % (Auto) Eos % (Auto) Baso % (Auto) Lymph # (Auto) [place] # (Auto) Eos # (Auto) Baso # (Auto) Abs Immat Gran (auto) Absolute Neuts (auto) Absolute Nucleated RBC Nucleated RBC % (auto) VBG pH VBG pCO2 VBG pO2 VBG HCO3 VBG O2 Saturation VBG Base Excess Sodium Potassium Chloride Carbon Dioxide Anion Gap BUN Creatinine Estim Creat Clear Calc Estimated GFR POC Glucose 252 H Random Glucose Lactic Acid Lactic Acid F/U @ 2Hr Lactic Acid F/U @ 4Hr Calcium Total Bilirubin AST ALT Alkaline Phosphatase B-Natriuretic Peptide Total Protein Albumin Procalcitonin Microbiology Microbiology Results: Microbiology 03/01/22 05:25 Sputum - Suctioned Gram Stain - Final Quality Stroke Does the patient have a stroke diagnosis?: No VTE Prior VTE?: No VTE Risk Level:: Medical - moderate - high VTE Device Contraindication: N/A - Device Ordered VTE Drug Contraindication: Treatment Not Indicated Critical Care Time Critical Care Time (minutes): 60
[2022-03-01] MEDS: Furosemide 200 MG in 0.9 % Sodium Chloride 80 ML IVCONT (18:05)
[2022-03-01 18:16] LABS: Glucose, Whole Blood 193 mg/dL (60-115)
--- NOTE | 2022-03-01 20:29 | P.EN_ITS ---
Event Note Date of Service: 03/01/22 Event Note: Subjective:? Today pt was ?fine? and tonight pt desated and become tachypnic and febrile all of which started this evening about 8 pm. He is coughing, unable to speak. Objective VS: 150/60; 87; 36; 91% RA; 100.5 F General:? Alert, unable to talk, in respiratory distress, tachypnic, gurgling noted in the upper airway ans using accessory muscles. Skin:? Intact, no lesions or rash HEENT:? Normocephalic, atraumatic, extraocular movements intact, neck is supple, no lymphadenopathy.? Buccal mucosa dry.? Throat midline. Cardiac:? Clear S1-S2, no murmurs rubs or gallops. 1+ JVD Pulmonary:? coarsed, upper airway seems congested and crackles are noted, no wheezing. Abdomen:? Protuberant, positive bowel sounds in all 4 quadrants.? Soft, nontender, no rebound or guarding. Musculoskeletal : 1+ pitting edema on bilateral legs. Vascular:? 2+ pulses upper and lower extremities distally. SIGNIFICANT LABORATORY DATA: to be obtained. REVIEW OF IMAGES: New patchy infiltrates noted on CT from this am likely Covid related; but deff new from prior CXR, likely aspiration. ASSESSMENT AND PLAN: 1. Acute Respiratory Failure secondary to Aspiration Pneumonitis and CHF 2. Aspiration Pneumonitis 3. Congestive Heart Failure and Fluid Overload 4. Mild Lactic Acidosis likely reactive no suspected Sepsis At this point aspiration of the feeding contents is eminent as respiratory therapy suctioned material; will obtained Blood gas, cbc, cm7, bnp, lactic acid , ?CXR shows new infiltrates and given all this the desat and the fever, tach ypnea will start Unasyn, will give him Lasix as he appears fluid overloaded, he has edema and JVD and pulm congestion. Will check labs in am again. ? GI PROPHYLAXIS: IV PPI DVT PROPHYLAXIS: Pneumatic stocks Critical care time used for critical evaluation of this patient, diagnosis, treatment and coordination of care, review her records and documentation TOTAL CRITICAL CARE TIME 60 MIN Patient's care was discussed in detail with Dr. Myers.? He is aware of all the above as well as the plan of care for this patient.
--- NOTE | 2022-03-01 21:00 | PM.CCPN ---
Subjective Subjective Date of Service: 03/01/22 Critical Care Time (minutes): 60 Comment: Subjective:? Today pt was ?fine? and tonight pt desated and become tachypnic and febrile all of which started this evening. He is coughing, unable to speak.? Objective VS: 150/60; 87; 36; 91% RA; 100.5 F General:? Alert, unable to talk, in respiratory distress, tachypnic, gurgling noted in the upper airway ans using accessory muscles. Skin:? Intact, no lesions or rash HEENT:? Normocephalic, atraumatic, extraocular movements intact, neck is supple, no lymphadenopathy.? Buccal mucosa dry.? Throat midline. Cardiac:? Clear S1-S2, no murmurs rubs or gallops. 1+ JVD Pulmonary:? coarsed, upper airway seems congested and crackles are noted, no wheezing. Abdomen:? Protuberant, positive bowel sounds in all 4 quadrants.? Soft, nontender, no rebound or guarding. Musculoskeletal : 1+ pitting edema on bilateral legs. Vascular:? 2+ pulses upper and lower extremities distally. SIGNIFICANT LABORATORY DATA: to be obtained. REVIEW OF IMAGES: New patchy infiltrates noted on CT from this am likeky Covid related; but deff new from prior CXR, likely aspiration. ASSESSMENT AND PLAN: 1. Acute Respiratory Failure secondary to Aspiration Pneumonitis and CHF 2. Aspiration Pneumonitis 3. Congestive Heart Failure and Fluid Overload 4. Mild Lactic Acidosis likely reactive no suspected Sepsis At this point aspiration of the feeding contents is eminent as respiratory therapy suctioned material; will obtained Blood gas, cbc, cm7, bnp, lactic acid , ?CXR shows new infiltrates and given all this the desat and the fever, tachypnea will start Unasyn, will give him Lasix as he appears fluid overloaded, he has edema and JVD and pulm congestion. Will check labs in am again. ? GI PROPHYLAXIS: IV PPI DVT PROPHYLAXIS: Pneumatic stocks Critical care time used for critical evaluation of this patient, diagnosis, treatment and coordination of care, review her records and documentation TOTAL CRITICAL CARE TIME 60 MIN Patient's care was discussed in detail with Dr. Myers.? He is aware of all the above as well as the plan of care for this patient. Physical Exam Vital Signs: Vital Signs: Last Vital Signs Temp 99.9 F 03/02/22 00:00 Pulse 69 03/02/22 01:00 Resp 27 H 03/02/22 01:00 BP 146/56 H 03/02/22 01:00 Pulse Ox 93 03/02/22 01:00 BMI result Body Mass Index 34.9 Objective Data Labs CBC & Chem 7: 03/01/22 05:24 03/01/22 05:24 Labs: Laboratory Results - last 24 hr 03/01/22 03/01/22 03/01/22 02:27 02:27 02:27 WBC RBC Hgb Hct MCV MCH MCHC RDW Plt Count MPV Immature Gran % (Auto) Neut % (Auto) Lymph % (Auto) [place] % (Auto) Eos % (Auto) Baso % (Auto) Lymph # (Auto) [place] # (Auto) Eos # (Auto) Baso # (Auto) Abs Immat Gran (auto) Absolute Neuts (auto) Absolute Nucleated RBC Nucleated RBC % (auto) VBG pH VBG pCO2 VBG pO2 VBG HCO3 VBG O2 Saturation VBG Base Excess Sodium 143 Potassium 3.0 L D Chloride 116 H Carbon Dioxide 15 L Anion Gap 15 BUN 71 H Creatinine 2.82 H Estim Creat Clear Calc 29.4 Estimated GFR 23 POC Glucose Random Glucose 250 H Lactic Acid 2.1 H* Lactic Acid F/U @ 2Hr Lactic Acid F/U @ 4Hr Calcium 7.8 L Total Bilirubin 2.0 H AST 55 H ALT 12 Alkaline Phosphatase 70 Total Protein 5.5 L Albumin 2.9 L Procalcitonin 0.82 03/01/22 03/01/22 03/01/22 02:28 02:29 04:45 WBC 10.7 RBC 2.41 L Hgb 7.5 L Hct 21.5 L MCV 89.2 MCH 31.1 MCHC 34.9 RDW 17.7 H Plt Count 107 L D MPV 11.4 Immature Gran % (Auto) 0.6 H Neut % (Auto) 74.7 H Lymph % (Auto) 12.1 L [place] % (Auto) 12.1 H Eos % (Auto) 0.4 Baso % (Auto) 0.1 Lymph # (Auto) 1.3 [place] # (Auto) 1.3 H Eos # (Auto) 0.0 Baso # (Auto) 0.0 Abs Immat Gran (auto) 0.06 H Absolute Neuts (auto) 8.0 Absolute Nucleated RBC 0.000 Nucleated RBC % (auto) 0.0 VBG pH 7.48 H VBG pCO2 18 VBG pO2 78 VBG HCO3 14 L VBG O2 Saturation 97.0 VBG Base Excess -7.8 Sodium Potassium Chloride Carbon Dioxide Anion Gap BUN Creatinine Estim Creat Clear Calc Estimated GFR POC Glucose Random Glucose Lactic Acid Lactic Acid F/U @ 2Hr 2.3 H* Lactic Acid F/U @ 4Hr Calcium Total Bilirubin AST ALT Alkaline Phosphatase Total Protein Albumin Procalcitonin 03/01/22 03/01/22 03/01/22 05:24 05:24 05:28 WBC 12.1 H RBC 2.60 L Hgb 8.1 L Hct 23.2 L MCV 89.2 MCH 31.2 MCHC 34.9 RDW 17.6 H Plt Count 134 L D MPV 10.9 Immature Gran % (Auto) 0.7 H Neut % (Auto) 75.1 H Lymph % (Auto) 11.4 L [place] % (Auto) 12.1 H Eos % (Auto) 0.5 Baso % (Auto) 0.2 Lymph # (Auto) 1.4 [place] # (Auto) 1.5 H Eos # (Auto) 0.1 Baso # (Auto) 0.0 Abs Immat Gran (auto) 0.08 H Absolute Neuts (auto) 9.1 H Absolute Nucleated RBC 0.000 Nucleated RBC % (auto) 0.0 VBG pH 7.42 VBG pCO2 22 VBG pO2 60 VBG HCO3 14 L VBG O2 Saturation 89.0 VBG Base Excess -7.9 Sodium 146 H Potassium 3.2 L Chloride 118 H Carbon Dioxide 14 L Anion Gap 17 BUN 70 H Creatinine 2.85 H Estim Creat Clear Calc 29.1 Estimated GFR 23 POC Glucose Random Glucose 234 H Lactic Acid Lactic Acid F/U @ 2Hr Lactic Acid F/U @ 4Hr Calcium 7.8 L Total Bilirubin 2.4 H AST 57 H ALT 18 Alkaline Phosphatase 79 Total Protein 5.7 L Albumin 3.0 L Procalcitonin 03/01/22 03/01/22 03/01/22 06:05 07:05 08:47 WBC RBC Hgb Hct MCV MCH MCHC RDW Plt Count MPV Immature Gran % (Auto) Neut % (Auto) Lymph % (Auto) [place] % (Auto) Eos % (Auto) Baso % (Auto) Lymph # (Auto) [place] # (Auto) Eos # (Auto) Baso # (Auto) Abs Immat Gran (auto) Absolute Neuts (auto) Absolute Nucleated RBC Nucleated RBC % (auto) VBG pH VBG pCO2 VBG pO2 VBG HCO3 VBG O2 Saturation VBG Base Excess Sodium Potassium Chloride Carbon Dioxide Anion Gap BUN Creatinine Estim Creat Clear Calc Estimated GFR POC Glucose 226 H Random Glucose Lactic Acid Lactic Acid F/U @ 2Hr Lactic Acid F/U @ 4Hr 2.1 H* Calcium Total Bilirubin AST ALT Alkaline Phosphatase Total Protein Albumin Procalcitonin 0.85 03/01/22 03/01/22 03/01/22 12:01 18:08 23:55 WBC RBC Hgb Hct MCV MCH MCHC RDW Plt Count MPV Immature Gran % (Auto) Neut % (Auto) Lymph % (Auto) [place] % (Auto) Eos % (Auto) Baso % (Auto) Lymph # (Auto) [place] # (Auto) Eos # (Auto) Baso # (Auto) Abs Immat Gran (auto) Absolute Neuts (auto) Absolute Nucleated RBC Nucleated RBC % (auto) VBG pH VBG pCO2 VBG pO2 VBG HCO3 VBG O2 Saturation VBG Base Excess Sodium Potassium Chloride Carbon Dioxide Anion Gap BUN Creatinine Estim Creat Clear Calc Estimated GFR POC Glucose 252 H 193 H 200 H Random Glucose Lactic Acid Lactic Acid F/U @ 2Hr Lactic Acid F/U @ 4Hr Calcium Total Bilirubin AST ALT Alkaline Phosphatase Total Protein Albumin Procalcitonin Microbiology Microbiology Results: Microbiology 03/01/22 05:25 Sputum - Suctioned Gram Stain - Final Quality Stroke Does the patient have a stroke diagnosis?: No VTE Prior VTE?: No VTE Risk Level:: Medical - moderate - high VTE Device Contraindication: N/A - Device Ordered VTE Drug Contraindication: Treatment Not Indicated
[2022-03-01] MEDS: amLODIPine Besylate 10 MG TABLET PO (21:17)
[2022-03-01] MEDS: Insulin Glargine,Hum.rec.anlog 100 UNIT/ML 10 ML VIAL 20 UNIT SUBCUT (22:17)
[2022-03-01 23:59] LABS: Glucose, Whole Blood 200 mg/dL (60-115)
[2022-03-02] VITALS (35 sets, daily range): BP systolic 120–156; BP diastolic 38–95; PULSE 57–77; RESP 14–38; TEMP 37.1–37.7; O2SAT 90–98
[2022-03-02] MEDS: Insulin Lispro 100 UNIT/ML 3 ML VIAL SUBCUT ×2 (00:03→05:51)
[2022-03-02] MEDS: 0.9 % Sodium Chloride Flush 3 ML SYRINGE IVFLUSH ×4 (00:04→23:47)
[2022-03-02] MEDS: Ampicillin Sodium/Sulbactam Na 3 GM in 0.9 % Sodium Chloride 100 ML IV ×2 (02:04→13:22)
[2022-03-02 05:14] LABS: VBG Base Excess -6.2 mmol/L; VBG HCO3 16 mmol/L (22-26); VBG pCO2 22 mmHg; VBG pH 7.46 (7.32-7.43); VBG pO2 56 mmHg
[2022-03-02 05:15] LABS: Hemoglobin 7.4 g/dl (14.0-18.0); Mean Corpuscular HGB Conc 35.2 g/dl (31.0-36.0); Mean Corpuscular Hemoglobin 31.4 pg (27.0-33.0); Mean Platelet Volume 10.6 fL (9.4-12.4); NRBC Pct Auto 0.2 /100WBC (0.0-0.2); Platelet Count 102 X10*3/uL (160-400); Red Blood Count 2.36 X10*6/uL (4.60-5.80)
[2022-03-02 05:22] LABS: Ammonia 38 umol/L (13-55)
[2022-03-02 05:26] LABS: Lactic Acid 1.7 mmol/L (0.5-2.0)
[2022-03-02 05:39] LABS: Glucose, Whole Blood 184 mg/dL (60-115)
[2022-03-02 05:45] LABS: Alanine Aminotransferase 9 U/L (0-40); Alkaline Phosphatase 65 U/L (39-117); Aspartate Amino Transferase 43 U/L (5-37); Bilirubin Total 2.2 mg/dL (0.0-1.0); Blood Urea Nitrogen 79 mg/dL (9-16); Calcium 7.5 mg/dL (8.4-10.2); Creatinine Clr Calc Pharmacy 27.6; Estimated Glomerular Filt Rate 21; Glucose Random 208 mg/dL (60-115); Magnesium 2.8 mg/dL (1.6-2.6); Phosphorus 3.6 mg/dL (2.7-4.5); Total Protein 5.5 g/dL (6.5-8.0)
[2022-03-02 05:55] LABS: Anion Gap 16 (12-20); Carbon Dioxide 15 mmol/L (22-29); Chloride 117 mmol/L (96-108); Potassium 2.5 mmol/L (3.3-5.1); Sodium 145 mmol/L (135-145)
[2022-03-02] MEDS: Levothyroxine Sodium 25 MCG TABLET PO (06:01)
[2022-03-02] MEDS: Potassium Chloride/H20 10 MEQ/100 ML PIGGYBACK 100 MEQ IV ×4 (06:31→10:12)
[2022-03-02] MEDS: Albuterol/Iprat 2.5/0.5MG 3 ML AMPUL.NEB INHALE ×4 (07:39→18:43)
[2022-03-02] MEDS: Pantoprazole Sodium 40 MG/10 ML VIAL IVPUSH (07:47)
[2022-03-02] MEDS: Chlorhexidine Gluc Oral Rinse 15 ML MOUTHWASH BUCCAL ×3 (07:57→21:16)
[2022-03-02] MEDS: Carbidopa/Levodopa 25/100 TABLET 1 TAB PO ×4 (07:58→21:17)
[2022-03-02] MEDS: rifAXIMin 550 MG TABLET PO ×2 (07:58→21:16)
[2022-03-02] MEDS: Metoprolol Tartrate 50 MG TABLET G-TUBE ×2 (07:58→21:16)
[2022-03-02] MEDS: Lactulose 20 GM/30 ML SOLUTION PO (07:58)
[2022-03-02] MEDS: lisinopriL 20 MG TABLET PO (07:58)
[2022-03-02] MEDS: fentaNYL citrate/PF 100 MCG/2 ML VIAL 25 MCG IVPUSH ×6 (08:14→23:47)
[2022-03-02 09:19] LABS: Venous Blood Gas Refer to POC result
--- NOTE | 2022-03-02 09:47 | P.PNCC_ITS ---
Subjective Subjective Date of Service: 03/02/22 Interval History: Mr. Blackburn was transferred to ICU on February 25 with hepatic encephalopathy. The patient is a 61-year-old gentleman with underlying history of alcoholic cirrhosis, dementia, ataxia, Parkinson?s disease, and schizophrenia.? He is a resident of [facility].? He takes lactulose and rifaximin at the home. The patient was sent to the ED on 02/19/2022 because of a high ammonia level on labs drawn at [facility].? The patient also reportedly sustained a mechanical fall and hit his head that morning.? In the ER, his mental status was at baseline, according to Dr. Moon.? Head CT showed a small right subdural hematoma. ?Labs showed an ammonia level of 102 (baseline in the 50s).? Total bili was 1.1 (his baseline), transaminases minimally elevated.? BUN/creatinine 29/1.9 (baseline about 16/0.8).? Labs were also notable for chronic anemia with Hb 9.8 (baseline about 9), platelet count 78K (baseline 50-70K), INR 1.2, alb 3.2 (baseline about 3.0). The patient was admitted for neuro observation, and he was continued on the lactulose and rifaximin that he takes at the home.? Follow-up CT the next morning was unchanged, but his mental status deteriorated.? He was evaluated by Gastroenterology.? Despite the lactulose and rifaximin regimen, his ammonia level continued to rise with worsening hepatic encephalopathy.? An NGT was placed to give him the lactulose and rifaximin.? He was transferred to ICU on 02/25 for further workup and mx. EEG on 02/25 showed ?Severe generalized slowing suggestive of bihemispheric dys function.? Metabolic toxic or anoxic encephalopathy.?? Brain MRI on 02/26 showed no acute intracranial abnormalities, stable trace right tentorial subdural hematoma, w moderate underlying microangiopathy and generalized cerebral volume loss.? He continued on lactulose and rifaximin.? The ammonia level peaked at 168 on 02/24 and has come down slowly to 50.? On 02/27, he was started on a low-dose bicarbonate drip because of metabolic acidosis likely secondary to ERNST. Chest CT on 02/28 showed multilobar infiltrates suggestive of COVID disease, but a recheck of his COVID PCR was negative.? That night, he clinically aspirated, with desaturation and tube feeds sucked out of his trachea.? CXR showed multilobar infiltrates, consistent with aspiration.? Cultures were drawn, and he was started on unasyn. ECHO yesterday was notable for Normal LV and RV size and function, trace TR, no signif CWD wave, and an enlarged, IVC with limited insp collapse.? He was started on a Lasix drip.? U/O last 24 hours doubled to 1560cc. On exam this morning, he seems slightly but noticeably more alert than yesterday.? Still only one word answers to questions.? RR is down to mid 20?s, and FiO2 is down to 2L, with Sat 93%.? Doesn?t look toxic.? Mild-moderately tremulous.? HR 60, SR.? BP 137/58.? This morning's venous blood gas on the OxyMask showed 7.46/22/-6.? Tmax 100.4 last night.? No JVD at 30?.? Chest is fully clear today, with normal expiratory phase.? Heart rate and rhythm are regular normal-sounding S1 and S2.? No murmur or gallops.? Abdomen is benign.? His edema has resolved. LABORATORY DATA:? Below.? Notably, white count is down to 10, Hb down to 7.4, Na 145, bicarb 15, BUN/creatinine up to 79/3.0 (from 70/2.8 yesterday), K 2.5 on the diuresis, glucose 208. MICROBIOLOGY:? Blood and sputum cultures from 03/01 negative. IMPRESSION: 1. Underlying Parkinson?s dz, on Sinemet. 2. Underlying schizophrenia. 3. Underlying dementia. 4. Alcoholic cirrhosis. 5. Trace subdural hematoma on CT and MRI imaging.? Whether that SDH is a consequence of the fall that the patient sustained on the morning of admission is not clear to me, but notwithstanding, the SDH is clinically irrelevant and has nothing to do with the patient?s AMS. 6. AMS.? The patient is presumed to have hepatic encephalopathy, given his elevated ammonia levels.? But what accounts for his persistent decreased MS, despite a normalized ammonia level, is not clear.? He does not appear toxic, has only minimally elevated temp with normal WBC, and I doubt he has meningitis or a reason to do an LP.? Repeat head CT 02/28 was unrevealing.? In the meantime, continue rifaximin, and continue bid lactulose at reduced dose.? Continue Sinemet for underlying parkinsonian disease. 7. Aspiration pneumonia.? On Unasyn.? Needs an nasoenteral tube.? I put down a Kaofeed tube yesterday, advanced it today, and it?s sitting right at the pylorus.? Discussed extensively with IR GI and pharmacy. ?Started erythromycin to try to get it through the pylorus (Reglan contraindicated on Sinemet).? I?ll check another film later today. 8. Hypoxemic resp failure.? 2? above. 9. ERNST. ?BUN/creat have been rising since 02/24, with high ratio.? Was initially thought 2? dehydration, but just got worse w hydration.? Echo showed he?s hypervolemic.? Stated diuresis yesterday.? On abdominal CT February 24, the kidneys and ureters were unremarkable.? Echo suggests that the patient is hypervolemic.? Renal consult agreed.? Start him on a Lasix drip yesterday, with albumin.? Renal indices still rising today.? I?ll give another dose of albumin.? D/C the Lisinopril. 10. Hypertension:? Excellent BP control on the metoprolol, amlodipine, and lisinopril.? D/C?d the Lisinopril.? With his HR down to 60, might have to change his metoprolol to labetalol. 11. Met acidosis.? Mostly 2? ERNST.? Bicarb drip bec of tachypnea. 12. Hypernatremia.? We?ll continue the bicarb drip in hypotonic D5W. 13. DM.? On Lantus and SS.? Upped the Lantus to 25u daily. 14. ID.? Resp status is much improved.? We?ll give him a 4-5 day course of Unasyn. 15. Anemia.? Hemoccult was negative.? RDW is high.? Most likely ACD. 16. Nutrition.? Start him on Vital 1.5 at 10cc/hr.? Hopefully the Kaofeed tube will snake its way into the duodenum. 17. Code status.? The likelihood that Mr. Blackburn will wind up intubated is not small, and if that happens, he is not likely to do well. ?I discussed with Dr. Moon the appropriateness of changing his code status to DNR/DNI.? He called over to [facility].? Reportedly, the patient is fairly functional. ?So in the absence of a family member who feels otherwise, I do not think DNR/DNI status is practi levi feasible.? The likelihood, therefore, is that if he winds up intubated, he will probably wind up with a tracheostomy and PEG. Critical Care Time (minutes): 90 Physical Exam Vital Signs: Vital Signs: Last Vital Signs Temp 99.9 F 03/02/22 00:00 Pulse 59 03/02/22 09:00 Resp 26 H 03/02/22 09:00 BP 146/59 H 03/02/22 09:00 Pulse Ox 92 03/02/22 09:00 BMI result Body Mass Index 34.9 Objective Data Labs CBC & Chem 7: 03/02/22 05:09 03/02/22 05:09 Labs: Laboratory Results - last 24 hr 03/01/22 03/01/22 03/01/22 12:01 18:08 23:55 WBC RBC Hgb Hct MCV MCH MCHC RDW Plt Count MPV Absolute Nucleated RBC Nucleated RBC % (auto) VBG pH VBG pCO2 VBG pO2 VBG HCO3 VBG O2 Saturation VBG Base Excess Sodium Potassium Chloride Carbon Dioxide Anion Gap BUN Creatinine Estim Creat Clear Calc Estimated GFR POC Glucose 252 H 193 H 200 H Random Glucose Lactic Acid Calcium Phosphorus Magnesium Total Bilirubin AST ALT Alkaline Phosphatase Ammonia Total Protein Albumin 03/02/22 03/02/22 03/02/22 05:05 05:09 05:09 WBC RBC Hgb Hct MCV MCH MCHC RDW Plt Count MPV Absolute Nucleated RBC Nucleated RBC % (auto) VBG pH 7.46 H VBG pCO2 22 VBG pO2 56 VBG HCO3 16 L VBG O2 Saturation 87.0 VBG Base Excess -6.2 Sodium Potassium Chloride Carbon Dioxide Anion Gap BUN Creatinine Estim Creat Clear Calc Estimated GFR POC Glucose Random Glucose Lactic Acid 1.7 Calcium Phosphorus Magnesium Total Bilirubin AST ALT Alkaline Phosphatase Ammonia 38 Total Protein Albumin 03/02/22 03/02/22 03/02/22 05:09 05:09 05:34 WBC 10.0 RBC 2.36 L Hgb 7.4 L Hct 21.0 L* MCV 89.0 MCH 31.4 MCHC 35.2 RDW 18.0 H Plt Count 102 L MPV 10.6 Absolute Nucleated RBC 0.020 H Nucleated RBC % (auto) 0.2 VBG pH VBG pCO2 VBG pO2 VBG HCO3 VBG O2 Saturation VBG Base Excess Sodium 145 Potassium 2.5 L* D Chloride 117 H Carbon Dioxide 15 L Anion Gap 16 BUN 79 H Creatinine 3.00 H Estim Creat Clear Calc 27.6 Estimated GFR 21 POC Glucose 184 H Random Glucose 208 H Lactic Acid Calcium 7.5 L Phosphorus 3.6 Magnesium 2.8 H Total Bilirubin 2.2 H AST 43 H ALT 9 Alkaline Phosphatase 65 Ammonia Total Protein 5.5 L Albumin 3.0 L Microbiology Microbiology Results: Microbiology 03/01/22 05:25 Sputum - Suctioned Gram Stain - Final 03/01/22 05:25 Sputum - Suctioned Sputum Culture - Preliminary Culture in progress. 03/01/22 02:27 Blood - Venous Blood Culture - Preliminary No growth after 24 hours. 03/01/22 02:27 Blood - Venous Blood Culture - Preliminary No growth after 24 hours. Quality Stroke Does the patient have a stroke diagnosis?: No VTE Prior VTE?: No VTE Risk Level:: Medical - moderate - high VTE Device Contraindication: N/A - Device Ordered VTE Drug Contraindication: Treatment Not Indicated Critical Care Time Critical Care Time (minutes): 90
--- NOTE | 2022-03-02 10:24 | PM.PNNEP ---
Subjective Subjective Date of Service: 03/02/22 Interval history: Chart Reviewed. Events noted. Physical Exam Vital Signs: Vital Signs: Last Vital Signs Temp 99.9 F 03/02/22 00:00 Pulse 58 03/02/22 10:00 Resp 22 H 03/02/22 10:00 BP 138/57 L 03/02/22 10:00 Pulse Ox 90 L 03/02/22 10:00 BMI result Body Mass Index 34.9 Const: General: confusion Orientation/consciousness: confusion HEENT: Head: Yes normal to inspection, Yes normocephalic and Yes atraumatic Neck: Neck: Yes no JVD Resp: Effort & Inspection: tachypneic Auscultation: crackles and diminished lung sounds Cardio: Rate: tachycardic Rhythm: regular rhythm Heart sounds: S1 normal heart sound present and S2 normal heart sound present GI: Auscultation: normal bowel sounds Neuro: General: confusion Extrem: Right upper extremity: edema Objective Data Labs CBC & Chem 7: 03/02/22 05:09 03/02/22 05:09 Labs: Laboratory Results - last 24 hr 03/01/22 03/01/22 03/01/22 12:01 18:08 23:55 WBC RBC Hgb Hct MCV MCH MCHC RDW Plt Count MPV Absolute Nucleated RBC Nucleated RBC % (auto) VBG pH VBG pCO2 VBG pO2 VBG HCO3 VBG O2 Saturation VBG Base Excess Sodium Potassium Chloride Carbon Dioxide Anion Gap BUN Creatinine Estim Creat Clear Calc Estimated GFR POC Glucose 252 H 193 H 200 H Random Glucose Lactic Acid Calcium Phosphorus Magnesium Total Bilirubin AST ALT Alkaline Phosphatase Ammonia Total Protein Albumin 03/02/22 03/02/22 03/02/22 05:05 05:09 05:09 WBC RBC Hgb Hct MCV MCH MCHC RDW Plt Count MPV Absolute Nucleated RBC Nucleated RBC % (auto) VBG pH 7.46 H VBG pCO2 22 VBG pO2 56 VBG HCO3 16 L VBG O2 Saturation 87.0 VBG Base Excess -6.2 Sodium Potassium Chloride Carbon Dioxide Anion Gap BUN Creatinine Estim Creat Clear Calc Estimated GFR POC Glucose Random Glucose Lactic Acid 1.7 Calcium Phosphorus Magnesium Total Bilirubin AST ALT Alkaline Phosphatase Ammonia 38 Total Protein Albumin 03/02/22 03/02/22 03/02/22 05:09 05:09 05:34 WBC 10.0 RBC 2.36 L Hgb 7.4 L Hct 21.0 L* MCV 89.0 MCH 31.4 MCHC 35.2 RDW 18.0 H Plt Count 102 L MPV 10.6 Absolute Nucleated RBC 0.020 H Nucleated RBC % (auto) 0.2 VBG pH VBG pCO2 VBG pO2 VBG HCO3 VBG O2 Saturation VBG Base Excess Sodium 145 Potassium 2.5 L* D Chloride 117 H Carbon Dioxide 15 L Anion Gap 16 BUN 79 H Creatinine 3.00 H Estim Creat Clear Calc 27.6 Estimated GFR 21 POC Glucose 184 H Random Glucose 208 H Lactic Acid Calcium 7.5 L Phosphorus 3.6 Magnesium 2.8 H Total Bilirubin 2.2 H AST 43 H ALT 9 Alkaline Phosphatase 65 Ammonia Total Protein 5.5 L Albumin 3.0 L Microbiology Microbiology Results: Microbiology 03/01/22 05:25 Sputum - Suctioned Gram Stain - Final 03/01/22 05:25 Sputum - Suctioned Sputum Culture - Preliminary Culture in progress. 03/01/22 02:27 Blood - Venous Blood Culture - Preliminary No growth after 24 hours. 03/01/22 02:27 Blood - Venous Blood Culture - Preliminary No growth after 24 hours. Procedures Date of Service Date of Service: 03/02/22 Assessment & Plan Assessment and plan (1) Hypernatremia: Status: Acute (2) Hypervolemia: Status: Acute (3) Hypoalbuminemia: Status: Acute (4) ERNST (acute kidney injury): Status: Acute Assessment and Plan: ERNST, non-oliguric: #)ERNST with oliguria however uop now improving with lasix gtt. ERNST in setting of hepatic encephalopathy. -I have added repeat urine studies for evaluation (UA, U-Na, U-UN, U-Cr, U-K) for tomorrow (03/02) Suspect his worsening ERNST is from hypervolemia with noted underlying liver failure and cardiomegaly. -He would benefit from 2D echo. On exam, the patient appears hypervolemic, with noted oliguria and prior imaging revealing cardiomegaly. -Suggest: albumin infusion (25% albumin 100 ml x 1) following by 60 mg IV lasix. If no resolution of oliguria within 2 hours, initiate lasix gtt at 10 mg/hr. -Monitor I/O's -daily weights, -avoidance of nephrotoxic agents. - DC lisinopril. Hold metformin. Avoidance of nsaids, IV contrast, and renal dosing of abx. -imaging noted. No evidence of hydronephrosis. Ybarra in place. #) Hypernatremia, suggest increasing FW flushes for noted 2 L FWD. Na-HCO3 infusion slightly hypotonic which will deliver additional FW. #) HAGMA - agree with Na-HCO3. His HAGMA with secondary respiratory acidosis is likely combination of ernst, lactic acidosis (concern for Asp. PNA), and liver failure. #) Electrolytes - Monitor K and Mg with lasix infusion. (5) Metabolic acidosis: Status: Acute Time Spent With Patient Time: Total time spent is greater than 50% in coordination of care (as documented) at patient's floor/unit and/or counseling patient: Progress Note: Quality Stroke Does the patient have a stroke diagnosis?: No
[2022-03-02] MEDS: Sodium Bicarbonate 8.4% 50 MEQ in Dextrose 5 % 950 ML IV (10:27)
--- NOTE | 2022-03-02 11:07 | MHC.CLN ---
F/U PATIENT NOT TOLERATING NG TUBE FEEDING OF GLUCERNA AND FEEDING ON HOLD. BMI=35.0; IBW=59.09; CALCULATED METABOLIC WEIGHT (CMW)=68.9 KG. STAGE II TO COCCYX NOTED. NG TUBE CHANGED TO KAOFEED TO DUODENUM. RECOMMEND VITAL 1.5 AT 45 ML PER HOUR. PROVIDES 1080 ML FORMULA; 1620 KCAL (23.5 KCAL/KG CMW); 73 G PROTEIN (1.24G/KG IBW); 825 ML FREE WATER. CONTINUE TO FOLLOW WITH TEAM.
[2022-03-02 12:16] LABS: Glucose, Whole Blood 162 mg/dL (60-115)
[2022-03-02] MEDS: Albumin Human 25 % 100 ML 50 ML IV (12:18)
[2022-03-02] MEDS: Erythromycin Base 250 MG TABLET 500 MG NG-TUBE ×2 (12:28→19:51)
[2022-03-02] MEDS: Furosemide 200 MG in 0.9 % Sodium Chloride 80 ML IVCONT (16:32)
[2022-03-02 18:05] LABS: Glucose, Whole Blood 178 mg/dL (60-115)
--- NOTE | 2022-03-02 18:26 | PC.NURSE ---
KOFEED TUBE ADVANCED BY MD. CHECKED PLACEMENT BY CXR. TUBE FEED STARTED PER MD. BM X 2. WILL CONTINUE TO MONITOR.
[2022-03-02 18:35] LABS: Anion Gap 14 (12-20); Blood Urea Nitrogen 78 mg/dL (9-16); Calcium 7.4 mg/dL (8.4-10.2); Carbon Dioxide 18 mmol/L (22-29); Chloride 117 mmol/L (96-108); Creatinine Clr Calc Pharmacy 27.9; Estimated Glomerular Filt Rate 21; Glucose Random 214 mg/dL (60-115); Potassium 2.8 mmol/L (3.3-5.1); Sodium 146 mmol/L (135-145)
[2022-03-02] MEDS: Potassium Chloride ER 20 MEQ TAB.ER.PRT PO (21:06)
--- NOTE | 2022-03-02 21:11 | PC.NURSE ---
IV Potassium 40 mEq ordered for pt. by provider DANIEL Hsu. Pt. does not have central line access. Confirmed with nursing steam fitter supervisor and DANIEL Stahl that it is OK to infuse Potassium peripherally, but in the absence of a central line, to infuse the Potassium at a slower rate of 10 mEq/hr x four hours, versus 40 mEq x one hour as ordered.
[2022-03-02] MEDS: amLODIPine Besylate 10 MG TABLET PO (21:17)
[2022-03-02] MEDS: Potassium Chloride/H20 40 MEQ/100 ML PIGGYBACK 25 MEQ IV (21:17)
[2022-03-02] MEDS: Insulin Glargine,Hum.rec.anlog 100 UNIT/ML 10 ML VIAL 25 UNIT SUBCUT (21:21)
[2022-03-02 23:58] LABS: Glucose, Whole Blood 193 mg/dL (60-115)
[2022-03-03] VITALS (32 sets, daily range): BP systolic 120–147; BP diastolic 36–60; PULSE 58–93; RESP 14–41; TEMP 36.9–37.6; O2SAT 89–100
[2022-03-03] MEDS: fentaNYL citrate/PF 100 MCG/2 ML VIAL 25 MCG IVPUSH ×3 (01:54→14:01)
[2022-03-03] MEDS: Ampicillin Sodium/Sulbactam Na 3 GM in 0.9 % Sodium Chloride 100 ML IV ×2 (02:17→13:50)
[2022-03-03] MEDS: Erythromycin Base 250 MG TABLET 500 MG NG-TUBE ×2 (02:17→10:55)
[2022-03-03] MEDS: Albuterol/Iprat 2.5/0.5MG 3 ML AMPUL.NEB INHALE ×5 (03:06→20:02)
[2022-03-03 05:25] LABS: VBG Base Excess -4.9 mmol/L; VBG HCO3 18 mmol/L (22-26); VBG pCO2 29 mmHg; VBG pH 7.41 (7.32-7.43); VBG pO2 36 mmHg
[2022-03-03 05:32] LABS: Mean Corpuscular HGB Conc 34.9 g/dl (31.0-36.0); Mean Corpuscular Hemoglobin 31.6 pg (27.0-33.0); Mean Corpuscular Volume 90.6 fL (80.0-98.0); Mean Platelet Volume 11.4 fL (9.4-12.4); Platelet Count 78 X10*3/uL (160-400); Red Blood Count 2.12 X10*6/uL (4.60-5.80); Red Cell Distribution Width 18.5 % (11.0-16.0)
[2022-03-03 05:42] LABS: Hemoglobin 6.7 g/dl (14.0-18.0)
[2022-03-03 05:43] LABS: Hematocrit 19.2 % (42.0-52.0)
[2022-03-03] MEDS: Insulin Lispro 100 UNIT/ML 3 ML VIAL SUBCUT ×4 (05:45→23:56)
[2022-03-03] MEDS: Levothyroxine Sodium 25 MCG TABLET PO (05:45)
[2022-03-03] MEDS: Pantoprazole Sodium 40 MG/10 ML VIAL IVPUSH (05:47)
[2022-03-03 05:49] LABS: B Type Natriuretic Peptide 1683 pg/mL (<100)
[2022-03-03 05:53] LABS: Alanine Aminotransferase 7 U/L (0-40); Albumin Level 2.7 g/dL (3.5-5.0); Alkaline Phosphatase 59 U/L (39-117); Anion Gap 15 (12-20); Aspartate Amino Transferase 41 U/L (5-37); Bilirubin Total 1.7 mg/dL (0.0-1.0); Blood Urea Nitrogen 78 mg/dL (9-16); Carbon Dioxide 18 mmol/L (22-29); Chloride 116 mmol/L (96-108); Estimated Glomerular Filt Rate 21; Glucose Random 255 mg/dL (60-115); Magnesium 2.5 mg/dL (1.6-2.6); Phosphorus 3.1 mg/dL (2.7-4.5); Sodium 146 mmol/L (135-145); Total Protein 4.9 g/dL (6.5-8.0)
--- NOTE | 2022-03-03 06:17 | PC.NURSE ---
Addendum entered by Myra Zuleta RN 03/03/22 06:26: Attempt made x2 to call guardians re: blood consent form. Unable to leave voicemail Original Note: 1U blood PRBCs ordered. Type and screen drawn. Awaiting consent form at this time
[2022-03-03] MEDS: Sodium Bicarbonate 8.4% 50 MEQ in Dextrose 5 % 950 ML IV (06:36)
[2022-03-03] MEDS: Potassium Chloride ER 20 MEQ TAB.ER.PRT 40 MEQ PO ×2 (08:10→10:55)
[2022-03-03] MEDS: Chlorhexidine Gluc Oral Rinse 15 ML MOUTHWASH BUCCAL ×3 (08:10→20:32)
[2022-03-03] MEDS: Lactulose 20 GM/30 ML SOLUTION PO (08:10)
[2022-03-03] MEDS: Carbidopa/Levodopa 25/100 TABLET 1 TAB PO ×4 (08:10→20:32)
[2022-03-03] MEDS: rifAXIMin 550 MG TABLET PO ×2 (08:10→20:32)
[2022-03-03] MEDS: Metoprolol Tartrate 50 MG TABLET G-TUBE ×2 (08:11→20:32)
[2022-03-03] MEDS: 0.9 % Sodium Chloride Flush 3 ML SYRINGE IVFLUSH ×3 (08:12→23:56)
[2022-03-03 09:31] LABS: Venous Blood Gas Refer to POC result
--- NOTE | 2022-03-03 09:37 | MHC.CLN ---
F/U PATIENT TOLERATING KAOFEED TO DUODENUM. PLAN TODAY TO ADVANCE TUBE AND INCREASE RATE OF TUBE FEEDING. BMI=35.0; IBW=59.09; CALCULATED METABOLIC WEIGHT (CMW)=68.9 KG. STAGE II TO COCCYX NOTED. RECOMMEND MAX GOAL RATE VITAL 1.5 AT 45 ML PER HOUR. PROVIDES 1080 ML FORMULA; 1620 KCAL (23.5 KCAL/KG CMW); 73 G PROTEIN (1.24G/KG IBW); 825 ML FREE WATER. FLUSH 240 ML EVERY 6 OBZNB=385 ML FOR TOTAL FREE WATER FROM FORMULA AND WOHEA=6464 ML (25.9 ML/KG CMW). CONTINUE TO FOLLOW WITH TEAM.
--- NOTE | 2022-03-03 10:18 | PM.PNNEP ---
Subjective Subjective Date of Service: 03/03/22 Interval history: Seen this am. Noted anemia, worse. UOP adequate. No longer tachypneic. Physical Exam Vital Signs: Vital Signs: Last Vital Signs Temp 98.9 F 03/03/22 08:00 Pulse 58 03/03/22 10:00 Resp 18 03/03/22 10:00 BP 131/59 L 03/03/22 10:00 Pulse Ox 92 03/03/22 10:00 BMI result Body Mass Index 34.9 Const: General: no acute distress and confusion Orientation/consciousness: confusion HEENT: Head: Yes normal to inspection, Yes normocephalic and Yes atraumatic Neck: Neck: Yes no JVD Resp: Auscultation: crackles Cardio: Jugular venous distension: no JVD Rate: regular rate Rhythm: regular rhythm Heart sounds: S1 normal heart sound present and S2 normal heart sound present GI: Auscultation: normal bowel sounds : Other: Ybarra catheter in place with clear yellow urine. Neuro: General: confusion Extrem: General: Yes edema Objective Data Labs CBC & Chem 7: 03/03/22 05:17 03/03/22 05:17 Labs: Laboratory Results - last 24 hr 03/02/22 03/02/22 03/02/22 12:12 18:01 18:11 WBC RBC Hgb Hct MCV MCH MCHC RDW Plt Count MPV Absolute Nucleated RBC Nucleated RBC % (auto) VBG pH VBG pCO2 VBG pO2 VBG HCO3 VBG O2 Saturation VBG Base Excess Sodium 146 H Potassium 2.8 L Chloride 117 H Carbon Dioxide 18 L Anion Gap 14 BUN 78 H Creatinine 2.97 H Estim Creat Clear Calc 27.9 Estimated GFR 21 POC Glucose 162 H 178 H Random Glucose 214 H Calcium 7.4 L Phosphorus Magnesium Total Bilirubin AST ALT Alkaline Phosphatase B-Natriuretic Peptide Total Protein Albumin Ur Random Sodium Urine Creatinine Blood Type Antibody Screen Crossmatch 03/02/22 03/03/22 03/03/22 23:53 05:16 05:17 WBC 8.0 RBC 2.12 L Hgb 6.7 L* Hct 19.2 L* MCV 90.6 MCH 31.6 MCHC 34.9 RDW 18.5 H Plt Count 78 L MPV 11.4 Absolute Nucleated RBC 0.000 Nucleated RBC % (auto) 0.0 VBG pH 7.41 VBG pCO2 29 VBG pO2 36 VBG HCO3 18 L VBG O2 Saturation 57.0 VBG Base Excess -4.9 Sodium Potassium Chloride Carbon Dioxide Anion Gap BUN Creatinine Estim Creat Clear Calc Estimated GFR POC Glucose 193 H Random Glucose Calcium Phosphorus Magnesium Total Bilirubin AST ALT Alkaline Phosphatase B-Natriuretic Peptide Total Protein Albumin Ur Random Sodium Urine Creatinine Blood Type Antibody Screen Crossmatch 03/03/22 03/03/22 03/03/22 05:17 05:17 06:04 WBC RBC Hgb Hct MCV MCH MCHC RDW Plt Count MPV Absolute Nucleated RBC Nucleated RBC % (auto) VBG pH VBG pCO2 VBG pO2 VBG HCO3 VBG O2 Saturation VBG Base Excess Sodium 146 H Potassium 3.0 L Chloride 116 H Carbon Dioxide 18 L Anion Gap 15 BUN 78 H Creatinine 3.07 H Estim Creat Clear Calc 27.0 Estimated GFR 21 POC Glucose Random Glucose 255 H Calcium 7.0 L Phosphorus 3.1 Magnesium 2.5 Total Bilirubin 1.7 H AST 41 H ALT 7 Alkaline Phosphatase 59 B-Natriuretic Peptide 1683 H Total Protein 4.9 L Albumin 2.7 L Ur Random Sodium Urine Creatinine Blood Type A Positive Antibody Screen NEGATIVE Crossmatch See Detail 03/03/22 03/03/22 07:51 07:51 WBC RBC Hgb Hct MCV MCH MCHC RDW Plt Count MPV Absolute Nucleated RBC Nucleated RBC % (auto) VBG pH VBG pCO2 VBG pO2 VBG HCO3 VBG O2 Saturation VBG Base Excess Sodium Potassium Chloride Carbon Dioxide Anion Gap BUN Creatinine Estim Creat Clear Calc Estimated GFR POC Glucose Random Glucose Calcium Phosphorus Magnesium Total Bilirubin AST ALT Alkaline Phosphatase B-Natriuretic Peptide Total Protein Albumin Ur Random Sodium 30.0 Urine Creatinine 64.10 Blood Type Antibody Screen Crossmatch Microbiology Microbiology Results: Microbiology 03/01/22 05:25 Sputum - Suctioned Gram Stain - Final 03/01/22 05:25 Sputum - Suctioned Sputum Culture - Final 03/01/22 02:27 Blood - Venous Blood Culture - Preliminary No growth after 48 hours. 03/01/22 02:27 Blood - Venous Blood Culture - Preliminary No growth after 48 hours. Procedures Date of Service Date of Service: 03/03/22 Assessment & Plan Assessment and plan (1) ERNST (acute kidney injury): Status: Acute (2) Hypervolemia: Status: Acute (3) Hypernatremia: Status: Acute (4) Metabolic acidosis: Status: Acute Plan ERNST, non-oliguric: #)ERNST with oliguria however uop now improving with lasix gtt. ERNST in setting of hepatic encephalopathy. Repeat urine studies pending. Suspect his worsening ERNST is from hypervolemia with noted underlying liver failure and cardiomegaly. On exam, the patient appears hypervolemic, with noted oliguria and prior imaging revealing cardiomegaly. Receiving prbc this am which is appropriate. Colloid product(s) will help defend IV space. -Continue lasix gtt. Give one time dose 5 mg metolazone. -Monitor I/O's -daily weights, -avoidance of nephrotoxic agents. Hold lisinopril.?Hold metformin. Avoidance of nsaids, IV contrast, and renal dosing of abx. -imaging noted. No evidence of hydronephrosis. Ybarra in place. #) Hypernatremia, suggest increasing FW flushes for noted 2 L FWD. Na-HCO3 infusion slightly hypotonic which will deliver additional FW. #) HAGMA - agree with Na-HCO3. His HAGMA with secondary respiratory acidosis is likely combination of ernst, lactic acidosis (concern for Asp. PNA), and liver failure. #) Electrolytes - Monitor K and Mg with lasix infusion. #) Metabolic acidosis:improving Time Spent With Patient Time: Total time spent is greater than 50% in coordination of care (as documented) at patient's floor/unit and/or counseling patient: Progress Note: Quality Stroke Does the patient have a stroke diagnosis?: No
--- NOTE | 2022-03-03 12:22 | P.PNCC_ITS ---
Subjective Subjective Date of Service: 03/03/22 Interval History: Mr. Blackburn was transferred to ICU on February 25 with hepatic encephalopathy. The patient is a 61-year-old gentleman with underlying history of alcoholic cirrhosis, dementia, ataxia, Parkinson?s disease, and schizophrenia.? He is a resident of [facility].? He takes lactulose and rifaximin at the home. The patient was sent to the ED on 02/19/2022 because of a high ammonia level on labs drawn at [facility].? The patient also reportedly sustained a mechanical fall and hit his head that morning.? In the ER, his mental status was at baseline, according to Dr. Moon.? Head CT showed a small right subdural hematoma. ?Labs showed an ammonia level of 102 (baseline in the 50s).? Total bili was 1.1 (his baseline), transaminases minimally elevated.? BUN/creatinine 29/1.9 (baseline about 16/0.8).? Labs were also notable for chronic anemia with Hb 9.8 (baseline about 9), platelet count 78K (baseline 50-70K), INR 1.2, alb 3.2 (baseline about 3.0). The patient was admitted for neuro observation, and he was continued on the lactulose and rifaximin that he takes at the home.? Follow-up CT the next morning was unchanged, but his mental status deteriorated.? He was evaluated by Gastroenterology.? Despite the lactulose and rifaximin regimen, his ammonia level continued to rise with worsening hepatic encephalopathy.? An NGT was placed to give him the lactulose and rifaximin.? He was transferred to ICU on 02/25 for further workup and mx. EEG on 02/25 showed ?Severe generalized slowing suggestive of bihemispheric dys function.? Metabolic toxic or anoxic encephalopathy.?? Brain MRI on 02/26 showed no acute intracranial abnormalities, stable trace right tentorial subdural hematoma, w moderate underlying microangiopathy and generalized cerebral volume loss.? He continued on lactulose and rifaximin.? The ammonia level peaked at 168 on 02/24 and has come down slowly to 50.? On 02/27, he was started on a low-dose bicarbonate drip because of metabolic acidosis likely secondary to ERNST. Chest CT on 02/28 showed multilobar infiltrates suggestive of COVID disease, but a recheck of his COVID PCR was negative.? That night, he clinically aspirated, with desaturation and tube feeds sucked out of his trachea.? CXR showed multilobar infiltrates, consistent with aspiration.? Cultures were drawn, and he was started on unasyn. ECHO on 03/01 was notable for Normal LV and RV size and function, trace TR, no signif CWD wave, and an enlarged, IVC with limited insp collapse.? He was started on a Lasix drip 6mg/hr.? U/O last 24 hours up to 1775cc.? Peripheral edema has completely resolved. On exam this morning, he?s letheragic, but easily arousable.? MS about the same as yesterday.? At best gives a one word answer to questions, which may or may not be intelligible..? RR is down to low 20?s (on no opiates), and Sat is improved to 94% on room air.? Doesn?t look toxic.? Mild-moderately tremulous.? HR 59, SR.? BP 131/59.? Afebrile.? No JVD at 30?.? Chest is fully clear, with normal expiratory phase.? Heart rate and rhythm are regular, normal-sounding S1 and S2.? No murmur or gallops.? Abdomen is benign.? No edema. I spent almost an hour repositioning his Kaofeed tube and it?s now in the 3rd portion of the duodenum.? Been tolerating his tube feeds well. LABORATORY DATA:? Below.? Notably, white count down to 8, Hb down to 6.7, Na 146, bicarb up to 18, BUN/creatinine steady at 78/3/0, K 3.0 on the diuresis, glucose 255.? BNP 1683. MICROBIOLOGY:? Blood and sputum cultures from 03/01 negative. IMPRESSION: 1. Underlying Parkinson?s dz, on Sinemet. 2. Underlying schizophrenia. 3. Underlying dementia. 4. Alcoholic cirrhosis. 5. Trace subdural hematoma on CT and MR imaging.? Whether or not that SDH is a consequence of the fall that the patient sustained on the morning of admission is not clear to me, but either way, it?s clinically irrelevant and has nothing to do with the patient?s AMS. 6. AMS.? The patient is presumed to have had hepatic encephalopathy, given his elevated ammonia levels.? But what accounts for his persistent decreased MS and limited responsiveness, despite a normalized ammonia level, is not clear.? He does not appear toxic, he?s afebrile with normal WBC, and does not appear to have a reason to do an LP.? Repeat head CT 02/28 was unrevealing.? I asked Dr. Moon to come down to see Adilson, and he verified that his mental status is not normal for him. ?Note that the patient is not on the Prolixin, Cogentin, or Geodon that he normally is at [facility].? I have asked Psychiatry to consult. ? In the meantime, continue rifaximin, and continue bid lactulose at reduced dose.? Continue Sinemet for underlying parkinsonian disease. 7. Aspiration pneumonia.? On Unasyn.? Now has a good nasoenteral tube and has been tolerating goal rate tube feeds with no aspiration for almost 24hrs.? We?ll continue erythromycin for prokinesis. 8. Hypoxemic resp failure.? 2? above.? Oxygenation is improving. 9. ERNST. ?BUN/creat have been rising since 02/24, with high ratio.? Was initially thought 2? dehydration, but just got worse w hydration.? Echo showed he?s hypervolemic.? Stated diuresis on 03/01.? BNP still high.? On abdominal CT February 24, the kidneys and ureters were unremarkable.? Renal indices may be cresting.? I?ll give another dose of albumin today.? D/C?d his Lisinopril yesterday bec of his rising renal indices. 10. Hypertension:? BP control on the metoprolol and amlodipine is OK.? D/C?d the Lisinopril. 11. Metabolic acidosis.? Mostly 2? ERNST.? Bicarb drip bec of tachypnea.? Might be able to d/c that tomorrow. 12. Hypernatremia.? We?ll continue the bicarb drip in hypotonic D5W. 13. DM.? On Lantus and SS. ?I?ll change the Lantus to 15u bid. 14. ID.? Resp status is much improved.? I?ll stop his Unasyn tomorrow morning. 15. Anemia.? Hemoccult was negative.? RDW is high.? Most likely ACD.? Transfuse one unit RBCs today. 16. Nutrition.? Now on Vital 1.5 at goal rate, 45cc/hr. 17. Code status.? The likelihood that Mr. Blackburn will wind up intubated is not small, and if that happens, he is not likely to do well.? I discussed with Dr. Moon the appropriateness of changing his code status to DNR/DNI.? He called over to [facility].? Reportedly, the patient is fairly functional.? So in the absence of a family member who feels otherwise, I do not think DNR/DNI status is practically feasible.? The likelihood, therefore, is that if he winds up intubated, he?ll probably wind up with a tracheostomy and PEG. Time:? 120 min ([id number] + [id number]) Critical Care Time (minutes): 0 Physical Exam Vital Signs: Vital Signs: Last Vital Signs Temp 98.7 F 03/03/22 12:00 Pulse 63 03/03/22 12:00 Resp 16 03/03/22 12:00 BP 135/53 L 03/03/22 12:00 Pulse Ox 96 03/03/22 12:00 BMI result Body Mass Index 34.9 Objective Data Labs CBC & Chem 7: 03/03/22 05:17 03/03/22 05:17 Labs: Laboratory Results - last 24 hr 03/02/22 03/02/22 03/02/22 18:01 18:11 23:53 WBC RBC Hgb Hct MCV MCH MCHC RDW Plt Count MPV Absolute Nucleated RBC Nucleated RBC % (auto) VBG pH VBG pCO2 VBG pO2 VBG HCO3 VBG O2 Saturation VBG Base Excess Sodium 146 H Potassium 2.8 L Chloride 117 H Carbon Dioxide 18 L Anion Gap 14 BUN 78 H Creatinine 2.97 H Estim Creat Clear Calc 27.9 Estimated GFR 21 POC Glucose 178 H 193 H Random Glucose 214 H Calcium 7.4 L Phosphorus Magnesium Total Bilirubin AST ALT Alkaline Phosphatase B-Natriuretic Peptide Total Protein Albumin Ur Random Sodium Urine Creatinine Blood Type Antibody Screen Crossmatch 03/03/22 03/03/22 03/03/22 05:16 05:17 05:17 WBC 8.0 RBC 2.12 L Hgb 6.7 L* Hct 19.2 L* MCV 90.6 MCH 31.6 MCHC 34.9 RDW 18.5 H Plt Count 78 L MPV 11.4 Absolute Nucleated RBC 0.000 Nucleated RBC % (auto) 0.0 VBG pH 7.41 VBG pCO2 29 VBG pO2 36 VBG HCO3 18 L VBG O2 Saturation 57.0 VBG Base Excess -4.9 Sodium 146 H Potassium 3.0 L Chloride 116 H Carbon Dioxide 18 L Anion Gap 15 BUN 78 H Creatinine 3.07 H Estim Creat Clear Calc 27.0 Estimated GFR 21 POC Glucose Random Glucose 255 H Calcium 7.0 L Phosphorus 3.1 Magnesium 2.5 Total Bilirubin 1.7 H AST 41 H ALT 7 Alkaline Phosphatase 59 B-Natriuretic Peptide Total Protein 4.9 L Albumin 2.7 L Ur Random Sodium Urine Creatinine Blood Type Antibody Screen Crossmatch 03/03/22 03/03/22 03/03/22 05:17 06:04 07:51 WBC RBC Hgb Hct MCV MCH MCHC RDW Plt Count MPV Absolute Nucleated RBC Nucleated RBC % (auto) VBG pH VBG pCO2 VBG pO2 VBG HCO3 VBG O2 Saturation VBG Base Excess Sodium Potassium Chloride Carbon Dioxide Anion Gap BUN Creatinine Estim Creat Clear Calc Estimated GFR POC Glucose Random Glucose Calcium Phosphorus Magnesium Total Bilirubin AST ALT Alkaline Phosphatase B-Natriuretic Peptide 1683 H Total Protein Albumin Ur Random Sodium Urine Creatinine 64.10 Blood Type A Positive Antibody Screen NEGATIVE Crossmatch See Detail 03/03/22 07:51 WBC RBC Hgb Hct MCV MCH MCHC RDW Plt Count MPV Absolute Nucleated RBC Nucleated RBC % (auto) VBG pH VBG pCO2 VBG pO2 VBG HCO3 VBG O2 Saturation VBG Base Excess Sodium Potassium Chloride Carbon Dioxide Anion Gap BUN Creatinine Estim Creat Clear Calc Estimated GFR POC Glucose Random Glucose Calcium Phosphorus Magnesium Total Bilirubin AST ALT Alkaline Phosphatase B-Natriuretic Peptide Total Protein Albumin Ur Random Sodium 30.0 Urine Creatinine Blood Type Antibody Screen Crossmatch Microbiology Microbiology Results: Microbiology 03/01/22 05:25 Sputum - Suctioned Gram Stain - Final 03/01/22 05:25 Sputum - Suctioned Sputum Culture - Final 03/01/22 02:27 Blood - Venous Blood Culture - Preliminary No growth after 48 hours. 03/01/22 02:27 Blood - Venous Blood Culture - Preliminary No growth after 48 hours. Quality Stroke Does the patient have a stroke diagnosis?: No VTE Prior VTE?: No VTE Risk Level:: Medical - moderate - high VTE Device Contraindication: N/A - Device Ordered VTE Drug Contraindication: Treatment Not Indicated
[2022-03-03] MEDS: Furosemide 200 MG in 0.9 % Sodium Chloride 80 ML IVCONT (16:05)
[2022-03-03] MEDS: Ziprasidone Mesylate 20 MG VIAL IM (18:21)
[2022-03-03] MEDS: Insulin Glargine,Hum.rec.anlog 100 UNIT/ML 10 ML VIAL 15 UNIT SUBCUT (20:32)
[2022-03-03] MEDS: amLODIPine Besylate 10 MG TABLET PO (20:32)
[2022-03-03] MEDS: Potassium Chloride Packet 20 MEQ PACKET 40 MEQ PO ×2 (20:42→23:56)
[2022-03-04] VITALS (34 sets, daily range): BP systolic 106–165; BP diastolic 49–80; PULSE 64–109; RESP 15–40; TEMP 37.1–38.9; O2SAT 88–100
[2022-03-04 00:39] LABS: CDiff Gene PCR NEGATIVE (Negative)
[2022-03-04] MEDS: Sodium Bicarbonate 8.4% 50 MEQ in Dextrose 5 % 950 ML IV (01:40)
[2022-03-04] MEDS: Ampicillin Sodium/Sulbactam Na 3 GM in 0.9 % Sodium Chloride 100 ML IV (01:41)
[2022-03-04 03:19] LABS: Glucose, Whole Blood 231 mg/dL (60-115)
[2022-03-04 03:19] LABS: Glucose, Whole Blood 229 mg/dL (60-115)
[2022-03-04 03:19] LABS: Glucose, Whole Blood 232 mg/dL (60-115)
[2022-03-04 03:19] LABS: Glucose, Whole Blood 287 mg/dL (60-115)
[2022-03-04 03:19] LABS: Glucose, Whole Blood 234 mg/dL (60-115)
[2022-03-04] MEDS: fentaNYL citrate/PF 100 MCG/2 ML VIAL 25 MCG IVPUSH ×3 (03:31→12:29)
[2022-03-04] MEDS: Albuterol/Iprat 2.5/0.5MG 3 ML AMPUL.NEB INHALE ×5 (04:00→20:27)
[2022-03-04] MEDS: Pantoprazole Sodium 40 MG/10 ML VIAL IVPUSH (05:26)
[2022-03-04] MEDS: Levothyroxine Sodium 25 MCG TABLET PO (05:27)
[2022-03-04] MEDS: Insulin Lispro 100 UNIT/ML 3 ML VIAL SUBCUT ×4 (05:27→23:59)
[2022-03-04 05:29] LABS: VBG Base Excess -4.6 mmol/L; VBG HCO3 19 mmol/L (22-26); VBG pCO2 32 mmHg; VBG pH 7.38 (7.32-7.43); VBG pO2 40 mmHg
[2022-03-04 05:31] LABS: Hematocrit 25.4 % (42.0-52.0); Hemoglobin 8.7 g/dl (14.0-18.0); Mean Corpuscular HGB Conc 34.3 g/dl (31.0-36.0); Mean Corpuscular Hemoglobin 31.6 pg (27.0-33.0); Mean Corpuscular Volume 92.4 fL (80.0-98.0); Mean Platelet Volume 11.2 fL (9.4-12.4); Red Blood Count 2.75 X10*6/uL (4.60-5.80); Red Cell Distribution Width 18.1 % (11.0-16.0); White Blood Count 7.6 X10*3/uL (4.8-10.8)
[2022-03-04 05:32] LABS: Venous Blood Gas Refer to POC result
[2022-03-04 05:33] LABS: Platelet Count 74 X10*3/uL (160-400)
[2022-03-04 05:38] LABS: Ammonia 26 umol/L (13-55)
[2022-03-04 05:49] LABS: Albumin Level 2.7 g/dL (3.5-5.0); Anion Gap 14 (12-20); Blood Urea Nitrogen 76 mg/dL (9-16); Calcium 6.9 mg/dL (8.4-10.2); Carbon Dioxide 20 mmol/L (22-29); Chloride 117 mmol/L (96-108); Estimated Glomerular Filt Rate 21; Glucose Random 372 mg/dL (60-115); Magnesium 2.5 mg/dL (1.6-2.6); Phosphorus 3.2 mg/dL (2.7-4.5); Potassium 3.5 mmol/L (3.3-5.1); Sodium 147 mmol/L (135-145)
[2022-03-04] MEDS: Carbidopa/Levodopa 25/100 TABLET 1 TAB PO ×4 (07:44→20:55)
[2022-03-04] MEDS: 0.9 % Sodium Chloride Flush 3 ML SYRINGE IVFLUSH ×2 (07:44→12:31)
[2022-03-04] MEDS: Insulin Glargine,Hum.rec.anlog 100 UNIT/ML 10 ML VIAL 15 UNIT SUBCUT (07:44)
[2022-03-04] MEDS: rifAXIMin 550 MG TABLET PO ×2 (07:44→20:53)
[2022-03-04] MEDS: Chlorhexidine Gluc Oral Rinse 15 ML MOUTHWASH BUCCAL ×3 (07:45→21:12)
[2022-03-04] MEDS: Metoprolol Tartrate 50 MG TABLET G-TUBE ×2 (07:45→20:58)
--- NOTE | 2022-03-04 09:31 | PM.PNNEP ---
Subjective Subjective Date of Service: 03/04/22 Interval history: NO acute overnight events. Physical Exam Vital Signs: Vital Signs: Last Vital Signs Temp 98.7 F 03/04/22 08:00 Pulse 69 03/04/22 09:00 Resp 24 H 03/04/22 09:00 BP 106/61 03/04/22 09:00 Pulse Ox 94 03/04/22 09:00 BMI result Body Mass Index 34.9 Const: General: no acute distress and confusion Orientation/consciousness: confusion HEENT: Head: Yes normocephalic and Yes atraumatic Neck: Neck: Yes no JVD Resp: Effort & Inspection: normal respiratory effort Auscultation: crackles Cardio: Jugular venous distension: no JVD Rate: regular rate Rhythm: regular rhythm Heart sounds: S1 normal heart sound present and S2 normal heart sound present Peripheral pulses: Peripheral pulses 2+ throughout GI: Auscultation: normal bowel sounds : Other: josé catheter in place Neuro: General: confusion Extrem: Other: sacral edema noted. Right upper extremity: edema Left upper extremity: edema Right lower extremity: edema Left lower extremity: edema Objective Data Labs CBC & Chem 7: 03/04/22 05:16 03/04/22 05:17 Labs: Laboratory Results - last 24 hr 03/03/22 03/03/22 03/03/22 05:36 06:04 07:51 WBC RBC Hgb Hct MCV MCH MCHC RDW Plt Count MPV Absolute Nucleated RBC Nucleated RBC % (auto) VBG pH VBG pCO2 VBG pO2 VBG HCO3 VBG O2 Saturation VBG Base Excess Sodium Potassium Chloride Carbon Dioxide Anion Gap BUN Creatinine Estim Creat Clear Calc Estimated GFR POC Glucose 232 H Random Glucose Calcium Phosphorus Magnesium Ammonia Albumin Ur Random Sodium Urine Creatinine 64.10 C. difficile Tox B Gene Blood Type A Positive Antibody Screen NEGATIVE Crossmatch See Detail 03/03/22 03/03/22 03/03/22 07:51 12:11 17:34 WBC RBC Hgb Hct MCV MCH MCHC RDW Plt Count MPV Absolute Nucleated RBC Nucleated RBC % (auto) VBG pH VBG pCO2 VBG pO2 VBG HCO3 VBG O2 Saturation VBG Base Excess Sodium Potassium Chloride Carbon Dioxide Anion Gap BUN Creatinine Estim Creat Clear Calc Estimated GFR POC Glucose 229 H 231 H Random Glucose Calcium Phosphorus Magnesium Ammonia Albumin Ur Random Sodium 30.0 Urine Creatinine C. difficile Tox B Gene Blood Type Antibody Screen Crossmatch 03/03/22 03/03/22 03/03/22 20:38 23:37 23:50 WBC RBC Hgb Hct MCV MCH MCHC RDW Plt Count MPV Absolute Nucleated RBC Nucleated RBC % (auto) VBG pH VBG pCO2 VBG pO2 VBG HCO3 VBG O2 Saturation VBG Base Excess Sodium Potassium Chloride Carbon Dioxide Anion Gap BUN Creatinine Estim Creat Clear Calc Estimated GFR POC Glucose 234 H 287 H Random Glucose Calcium Phosphorus Magnesium Ammonia Albumin Ur Random Sodium Urine Creatinine C. difficile Tox B Gene NEGATIVE Blood Type Antibody Screen Crossmatch 03/04/22 03/04/22 03/04/22 05:16 05:17 05:17 WBC 7.6 RBC 2.75 L D Hgb 8.7 L D Hct 25.4 L D MCV 92.4 MCH 31.6 MCHC 34.3 RDW 18.1 H Plt Count 74 L MPV 11.2 Absolute Nucleated RBC 0.000 Nucleated RBC % (auto) 0.0 VBG pH VBG pCO2 VBG pO2 VBG HCO3 VBG O2 Saturation VBG Base Excess Sodium 147 H Potassium 3.5 Chloride 117 H Carbon Dioxide 20 L Anion Gap 14 BUN 76 H Creatinine 3.07 H Estim Creat Clear Calc 27.0 Estimated GFR 21 POC Glucose Random Glucose 372 H* Calcium 6.9 L Phosphorus 3.2 Magnesium 2.5 Ammonia 26 Albumin 2.7 L Ur Random Sodium Urine Creatinine C. difficile Tox B Gene Blood Type Antibody Screen Crossmatch 03/04/22 05:21 WBC RBC Hgb Hct MCV MCH MCHC RDW Plt Count MPV Absolute Nucleated RBC Nucleated RBC % (auto) VBG pH 7.38 VBG pCO2 32 VBG pO2 40 VBG HCO3 19 L VBG O2 Saturation 64.0 VBG Base Excess -4.6 Sodium Potassium Chloride Carbon Dioxide Anion Gap BUN Creatinine Estim Creat Clear Calc Estimated GFR POC Glucose Random Glucose Calcium Phosphorus Magnesium Ammonia Albumin Ur Random Sodium Urine Creatinine C. difficile Tox B Gene Blood Type Antibody Screen Crossmatch Microbiology Microbiology Results: Microbiology 03/01/22 05:25 Sputum - Suctioned Gram Stain - Final 03/01/22 05:25 Sputum - Suctioned Sputum Culture - Final 03/01/22 02:27 Blood - Venous Blood Culture - Preliminary No growth after 48 hours. 03/01/22 02:27 Blood - Venous Blood Culture - Preliminary No growth after 48 hours. Procedures Date of Service Date of Service: 03/04/22 Assessment & Plan Assessment and plan (1) Metabolic acidosis: Status: Acute (2) Hypernatremia: Status: Acute (3) ERNST (acute kidney injury): Status: Acute (4) Hypervolemia: Status: Acute (5) Hypoalbuminemia: Status: Acute Plan ENRST, non-oliguric: #)ERNST with oliguria however uop now improving with lasix gtt. -Increase rate to 8 mg/hr. -Suggest 1x dose of 250 mg IV chlorothiazide. ERNST in setting of hepatic encephalopathy. Suspect his worsening ERNST is from hypervolemia with noted underlying liver failure and cardiomegaly. On exam, the patient appears hypervolemic, with noted oliguria and prior imaging revealing cardiomegaly. -Colloid product(s) will help defend IV space. s/p prbc transfusion -Monitor I/O's -daily weights, -avoidance of nephrotoxic agents. Hold?lisinopril.?Hold metformin. Avoidance of nsaids, IV contrast, and renal dosing of abx. -imaging noted. No evidence of hydronephrosis. José in place. #) Hypernatremia, suggest increasing FW flushes for noted 2 L FWD. Na-HCO3 infusion slightly hypotonic which will deliver additional FW. #) HAGMA - agree with Na-HCO3. His HAGMA with secondary respiratory acidosis is likely combination of ernst, lactic acidosis (concern for Asp. PNA), and liver failure. #) Electrolytes - Monitor K and Mg with lasix infusion. #) Metabolic acidosis: improving Rest per CCM team. Time Spent With Patient Time: Total time spent is greater than 50% in coordination of care (as documented) at patient's floor/unit and/or counseling patient: Progress Note: Quality Stroke Does the patient have a stroke diagnosis?: No
--- NOTE | 2022-03-04 09:58 | MHC.CLN ---
F/U KAOFEED TUBE ADVANCED TO THIRD PORTION OF DUODENUM. TOLERATING VITAL 1.5 AT 45 ML/HOUR AND RECOMMEND CONTINUE RATE. BMI=35.0; IBW=59.09; CALCULATED METABOLIC WEIGHT (CMW)=68.9 KG. STAGE II TO COCCYX NOTED. DISCUSSED AT ROUNDS AND INCREASING WATER FLUSH TO 300 ML Q 4 HOURS. VITAL 1.5 AT 45 ML PER HOUR PROVIDES 1080 ML FORMULA; 1620 KCAL (23.5 KCAL/KG CMW); 73 G PROTEIN (1.24G/KG IBW); TOTAL FREE WATER FROM FORMULA AND KNEQV=191+1800 FM=2402 ML (38.1 ML/KG CMW). CONTINUE TO FOLLOW WITH TEAM.
[2022-03-04 12:07] LABS: Glucose, Whole Blood 313 mg/dL (60-115)
[2022-03-04 12:07] LABS: Glucose, Whole Blood 283 mg/dL (60-115)
[2022-03-04] MEDS: Acetaminophen Oral Liquid 650 MG/20.3 ML SOLUTION PO ×2 (12:30→21:12)
[2022-03-04 13:07] LABS: Lactic Acid 2.2 mmol/L (0.5-2.0)
--- NOTE | 2022-03-04 13:21 | P.PNCC_ITS ---
Subjective Subjective Date of Service: 03/04/22 Interval History: Mr. Blackburn was transferred to ICU on February 25 with hepatic encephalopathy. The patient is a 61-year-old gentleman with underlying history of alcoholic cirrhosis, dementia, ataxia, Parkinson?s disease, and schizophrenia.? He is a resident of [facility].? He takes lactulose and rifaximin at the home.? According to the staff at [facility], he is reasonably high functioning, talks to people, gets around mostly in a wheelchair, but can walk to the bathroom himself, transfers chair to bed by himself. The patient was sent to the ED on 02/19/2022 because of a high ammonia level on labs drawn at [facility].? The patient also reportedly sustained a mechanical fall and hit his head that morning.? In the ER, his mental status was at baseline, according to Dr. Moon. ?Labs showed an ammonia level of 102 (baseline in the 50s).? Total bili was 1.1 (his baseline), transaminases minimally elevated.? BUN/creatinine 29/1.9 (baseline about 16/0.8).? Labs were also notable for chr onic anemia with Hb 9.8 (baseline about 9), platelet count 78K (baseline 50- 70K), INR 1.2, alb 3.2 (baseline about 3.0)..? Head CT showed a small right subdural hematoma. The patient was admitted for neuro observation because of the subdural, and he was continued on the lactulose and rifaximin that he takes at the home.? Follow- up CT the next morning was unchanged, but his mental status had deteriorated.? He was evaluated by Gastroenterology.? Despite the lactulose and rifaximin regimen, his ammonia level continued to rise with worsening hepatic encephalopathy.? An NGT was placed to give him the lactulose and rifaximin.? He was transferred to ICU on 02/25 for further workup and mx. EEG on 02/25 showed ?Severe generalized slowing suggestive of bihemispheric dysfunction.? Metabolic, toxic, or anoxic encephalopathy.?? Brain MRI on 02/26 showed no acute intracranial abnormalities, stable trace right tentorial subdural hematoma, w moderate underlying microangiopathy and generalized cerebral volume loss.? He continued on lactulose and rifaximin.? The ammonia level peaked at 168 on 02/24 and has come down slowly to 50.? On 02/27, he was started on a low-dose bicarbonate drip because of metabolic acidosis likely secondary to ERNST. Chest CT on 02/28 showed multilobar infiltrates suggestive of COVID disease, but a recheck of his COVID PCR was negative.? That night, he clinically aspirated, with desaturation and tube feeds sucked out of his trachea.? CXR showed multilobar infiltrates, consistent with aspiration.? Cultures were drawn, and he was started on unasyn. ECHO on 03/01 was notable for Normal LV and RV size and function, trace TR, no signif CWD wave, and an enlarged, IVC with limited insp collapse.? He was started on a Lasix drip.? U/O last 24 hours up to 1920cc.? Peripheral edema significantly resolved. On exam this morning, his MS is still depressed, same as last three days, but easily arousable.? At best gives a one word answer or a grunt to questions, which may or may not be intelligible..? RR is down to teens-low 20?s (on no opiates), and Sat is as high as 97% on room air.? Doesn?t look toxic.? Mild- moderately tremulous.? HR 60s, SR.? BP106/61.? Tmax 100.4.? No JVD at 30?.? Chest is fully clear, with normal expiratory phase.? Heart rate and rhythm are regular, normal-sounding S1 and S2.? No murmur or gallops.? Abdomen is benign.? No pretibial edema; has 1+ central edema. LABORATORY DATA:? Below.? Notably, Hb up to 8.7 after transfusion 1 unit RBCs yesterday.? Na 147, bicarb up to 20, BUN/creatinine steady at 76/3/0, K 3.5 on the diuresis (after 160 mEq KCL yesterday), glucose 372. MICROBIOLOGY:? Blood and sputum cultures from 03/01 negative. IMPRESSION: 1. Underlying Parkinson?s dz, on Sinemet. 2. Underlying schizophrenia. 3. Underlying dementia. 4. Alcoholic cirrhosis. 5. Trace subdural hematoma on CT and MR imaging.? Whether or not that SDH is a consequence of the fall that the patient sustained on the morning of admission is not clear to me, but either way, it?s clinically irrelevant and has nothing to do with the patient?s AMS. 6. AMS.? The patient is presumed to have had hepatic encephalopathy, given his elevated ammonia levels.? But what accounts for his persistent decreased MS and limited responsiveness, despite a normalized ammonia level, is not clear.? He does not appear toxic, he?s afebrile with normal WBC, and does not appear to have a reason to do an LP.? Repeat head CT 02/28 was unrevealing.? I asked Dr. Moon to come down to see Adilson, and he verified that his mental status is not normal for him.? Note that the patient is not on the Prolixin, Cogentin, or Geodon that he normally is at [facility]. ? I consulted with Melonie Pacheco (psychiatry) yesterday, we restarted him on Geodon.? Hasn?t made any difference yet. ? In the meantime, continuing rifaximin, and lactulose at reduced dose.? Cut the lactulose down to 20G QOD bec of diarrhea.? Continue Sinemet for underlying parkinsonian disease. 7. Aspiration pneumonia.? Pretty much afebrile now with normal WBC and Sat up to 97% on room air.? D/c?d the Unasyn this morning.? Now has a good nasoenteral tube and has been tolerating goal rate tube feeds with no aspiration.? Had to d/c the erythromycin when we restarted the Geodon. 8. Hypoxemic resp failure.? 2? above.? Oxygenation is much improved. 9. ERNST. ?BUN/creat seem to have crested at the current level.? At least not getting worse on the diuretic.? I?ll recheck BNP tomorrow.? I?ll give another dose of albumin today.? D/C?d his Lisinopril on 03/02 bec of his rising renal indices. 10. Hypertension:? BP control on the metoprolol and amlodipine is OK.? D/C?d the Lisinopril, per the above. 11. Metabolic acidosis.? Mostly 2? ERNST.? Improving.? We?ll d/c his bicarb drip. 12. Hypernatremia.? Upped his water flushes to 300cc q4hr. 13. DM.? On Lantus and SS. ?Now on full dose tube feed.? I?ll up his Lantus to 25u bid. 14. ID.? Resp status is much improved.? Stopped the Unasyn this morning. 15. Anemia.? Hemoccult was negative.? RDW is high.? Most likely ACD.? Transfused one unit RBCs yesterday. 16. Nutrition.? Now on Vital 1.5 at goal rate, 45cc/hr. 17. Code status.? The likelihood that Mr. Blackburn will wind up intubated is not small, and if that happens, he is not likely to do well.? I discussed with Dr. Moon changing his code status to DNR/DNI.? He called over to [facility] to find out more about the patient?s functional status.? Reportedly, the patient is fairly functional.? So in the absence of a family member who feels otherwise, I do not think DNR/DNI status is practically feasible.? The likelihood, therefore, is that if he winds up intubated, he?ll probably wind up with a tracheostomy and PEG. ADDENDUM at 1300:? Spiked a temp to 102.9? at noon, with more tremulousness and tachypnea.? Probably rigors.? We link BCs, urine, and lactic acid, which came back at 2.2.? Sat is still 94-95% on room air.? RR is 24. ?Can?t say what the fever is due to.? At this time, no abx are indicated.? Gave him Tylenol.? HR back down to 69, BP 153/52.? No repeat lactate needed.? Don?t think he?s septic.? Definitely not going to give him fluids (we?re diuresing him.) ? (We just started Avtardon yesterday, so that bears watching as far as hyperthermia goes.) Critical Care Time (minutes): 0 Physical Exam Vital Signs: Vital Signs: Last Vital Signs Temp 102 F H 03/04/22 12:00 Pulse 70 03/04/22 13:00 Resp 22 H 03/04/22 13:00 BP 153/52 H 03/04/22 13:00 Pulse Ox 97 03/04/22 13:00 BMI result Body Mass Index 34.9 Objective Data Labs CBC & Chem 7: 03/04/22 05:16 03/04/22 05:17 Labs: Laboratory Results - last 24 hr 03/03/22 03/03/22 03/03/22 05:36 06:04 12:11 WBC RBC Hgb Hct MCV MCH MCHC RDW Plt Count MPV Absolute Nucleated RBC Nucleated RBC % (auto) VBG pH VBG pCO2 VBG pO2 VBG HCO3 VBG O2 Saturation VBG Base Excess Sodium Potassium Chloride Carbon Dioxide Anion Gap BUN Creatinine Estim Creat Clear Calc Estimated GFR POC Glucose 232 H 229 H Random Glucose Lactic Acid Calcium Phosphorus Magnesium Ammonia Albumin C. difficile Tox B Gene Crossmatch See Detail 03/03/22 03/03/22 03/03/22 17:34 20:38 23:37 WBC RBC Hgb Hct MCV MCH MCHC RDW Plt Count MPV Absolute Nucleated RBC Nucleated RBC % (auto) VBG pH VBG pCO2 VBG pO2 VBG HCO3 VBG O2 Saturation VBG Base Excess Sodium Potassium Chloride Carbon Dioxide Anion Gap BUN Creatinine Estim Creat Clear Calc Estimated GFR POC Glucose 231 H 234 H Random Glucose Lactic Acid Calcium Phosphorus Magnesium Ammonia Albumin C. difficile Tox B Gene NEGATIVE Crossmatch 03/03/22 03/04/22 03/04/22 23:50 05:16 05:17 WBC 7.6 RBC 2.75 L D Hgb 8.7 L D Hct 25.4 L D MCV 92.4 MCH 31.6 MCHC 34.3 RDW 18.1 H Plt Count 74 L MPV 11.2 Absolute Nucleated RBC 0.000 Nucleated RBC % (auto) 0.0 VBG pH VBG pCO2 VBG pO2 VBG HCO3 VBG O2 Saturation VBG Base Excess Sodium Potassium Chloride Carbon Dioxide Anion Gap BUN Creatinine Estim Creat Clear Calc Estimated GFR POC Glucose 287 H Random Glucose Lactic Acid Calcium Phosphorus Magnesium Ammonia 26 Albumin C. difficile Tox B Gene Crossmatch 03/04/22 03/04/22 03/04/22 05:17 05:21 05:21 WBC RBC Hgb Hct MCV MCH MCHC RDW Plt Count MPV Absolute Nucleated RBC Nucleated RBC % (auto) VBG pH 7.38 VBG pCO2 32 VBG pO2 40 VBG HCO3 19 L VBG O2 Saturation 64.0 VBG Base Excess -4.6 Sodium 147 H Potassium 3.5 Chloride 117 H Carbon Dioxide 20 L Anion Gap 14 BUN 76 H Creatinine 3.07 H Estim Creat Clear Calc 27.0 Estimated GFR 21 POC Glucose 313 H Random Glucose 372 H* Lactic Acid Calcium 6.9 L Phosphorus 3.2 Magnesium 2.5 Ammonia Albumin 2.7 L C. difficile Tox B Gene Crossmatch 03/04/22 03/04/22 11:52 12:28 WBC RBC Hgb Hct MCV MCH MCHC RDW Plt Count MPV Absolute Nucleated RBC Nucleated RBC % (auto) VBG pH VBG pCO2 VBG pO2 VBG HCO3 VBG O2 Saturation VBG Base Excess Sodium Potassium Chloride Carbon Dioxide Anion Gap BUN Creatinine Estim Creat Clear Calc Estimated GFR POC Glucose 283 H Random Glucose Lactic Acid 2.2 H* Calcium Phosphorus Magnesium Ammonia Albumin C. difficile Tox B Gene Crossmatch Microbiology Microbiology Results: Microbiology 03/01/22 05:25 Sputum - Suctioned Gram Stain - Final 03/01/22 05:25 Sputum - Suctioned Sputum Culture - Final 03/01/22 02:27 Blood - Venous Blood Culture - Preliminary No growth after 48 hours. 03/01/22 02:27 Blood - Venous Blood Culture - Preliminary No growth after 48 hours. Quality Stroke Does the patient have a stroke diagnosis?: No VTE Prior VTE?: No VTE Risk Level:: Medical - moderate - high VTE Device Contraindication: N/A - Device Ordered VTE Drug Contraindication: Treatment Not Indicated
[2022-03-04] MEDS: Albumin Human 25 % 100 ML IV (13:24)
[2022-03-04 13:42] LABS: Cancel Lactic Acid Canceled
[2022-03-04 13:56] LABS: Appearance Urine HAZY; Color Urine YELLOW; Glucose Urine UA NEG (NEG); Leukocyte Esterase Urine 1+ (NEG); Nitrite Urine NEG (NEG); PH 5.5 (5.0-8.0); Urine Blood 3+ (NEG); Urine Ketones NEG (NEG); Urine Protein 2+ MG/DL (NEG-TRACE)
[2022-03-04 14:12] LABS: RBC Urine TNTC /HPF (0); Squamous Epithelial Cell Urine 1+ /LPF
[2022-03-04] MEDS: Furosemide 200 MG in 0.9 % Sodium Chloride 80 ML IVCONT (16:42)
[2022-03-04] MEDS: amLODIPine Besylate 10 MG TABLET PO (21:06)
[2022-03-04] MEDS: Insulin Glargine,Hum.rec.anlog 100 UNIT/ML 10 ML VIAL 25 UNIT SUBCUT (21:12)
[2022-03-04] MEDS: fentaNYL citrate/PF 100 MCG/2 ML VIAL 50 MCG IVPUSH ×2 (21:13→23:23)
[2022-03-05] VITALS (34 sets, daily range): BP systolic 105–169; BP diastolic 39–108; PULSE 67–115; RESP 18–51; TEMP 38.1–39.4; O2SAT 89–98
[2022-03-05] MEDS: fentaNYL citrate/PF 100 MCG/2 ML VIAL 50 MCG IVPUSH ×7 (01:47→08:18)
[2022-03-05 05:32] LABS: Hematocrit 24.5 % (42.0-52.0); Hemoglobin 8.2 g/dl (14.0-18.0); Mean Corpuscular HGB Conc 33.5 g/dl (31.0-36.0); Mean Corpuscular Hemoglobin 31.3 pg (27.0-33.0); Mean Corpuscular Volume 93.5 fL (80.0-98.0); Mean Platelet Volume 11.5 fL (9.4-12.4); Platelet Count 90 X10*3/uL (160-400); Red Blood Count 2.62 X10*6/uL (4.60-5.80); Red Cell Distribution Width 18.7 % (11.0-16.0); White Blood Count 11.4 X10*3/uL (4.8-10.8)
[2022-03-05] MEDS: Pantoprazole Sodium 40 MG/10 ML VIAL IVPUSH (05:32)
[2022-03-05] MEDS: Levothyroxine Sodium 25 MCG TABLET PO (05:32)
[2022-03-05] MEDS: Acetaminophen Oral Liquid 650 MG/20.3 ML SOLUTION PO ×3 (05:35→22:18)
[2022-03-05 05:51] LABS: Alanine Aminotransferase 10 U/L (0-40); Albumin Level 3.2 g/dL (3.5-5.0); Alkaline Phosphatase 67 U/L (39-117); Anion Gap 17 (12-20); Aspartate Amino Transferase 45 U/L (5-37); Bilirubin Total 2.1 mg/dL (0.0-1.0); Blood Urea Nitrogen 72 mg/dL (9-16); Calcium 7.3 mg/dL (8.4-10.2); Carbon Dioxide 22 mmol/L (22-29); Chloride 118 mmol/L (96-108); Estimated Glomerular Filt Rate 20; Glucose Random 225 mg/dL (60-115); Magnesium 2.3 mg/dL (1.6-2.6); Phosphorus 2.7 mg/dL (2.7-4.5); Potassium 3.6 mmol/L (3.3-5.1); Sodium 153 mmol/L (135-145); Total Protein 5.8 g/dL (6.5-8.0)
[2022-03-05 06:15] LABS: B Type Natriuretic Peptide 2709 pg/mL (<100)
--- NOTE | 2022-03-05 06:26 | PC.NURSE ---
Assumed care from Ibrahima RN, at 19:00. Patient is alert, moves all extremities, PERRL, pupils briskly reactive, tracks speaker, attends speaker. Patient otherwise follows no commands, spontaneously erupts in unintelligible moaning. No response to questions or commands. Nonverbal signs of pain rate about 7-9. IV fenanyl was given for WOB and tachypnea with limited efficacy, despite frequent administration, discussed with PA, but no changes at this time. Patient is febrile, with repeated temps of 102, administered tylenol at 21:00 and 05:35, and latter time is also most resent administration of fenanyl IV. Patient Temp came down to 100.5. Patient is continuing on lasix gtt, with average hourly urine outputs about 70-100 ccs with sediment in urine. Lung sounds were initially clear with some expiratory wheezes, which worsened to be coarse throughout. New nasal trumpet placed in the left nare, nasal suctioning by RT with a moderate amount of thick bloody secretions. Still with coarse lung sounds throughout, and repeatedly increased work of breathing, with frequent administration of IV fentanyl pushes for work of breathing. RR 40-51 at times, PA aware. Audible congestion. Patient was started on nasal cannula with increasing oxygen demand, currently on oxymask with 5 lpm and nasal trumpet in place. Distant heart sounds, hypertensive with SBP in 150's most of the night, NSR on monitor with a BBB that comes and goes. +3 pitting edema in right foot. stage 2 on coccyx with pink blanchable area around it. New 18 G in right hand and new 20 gauge in left wrist.
[2022-03-05] MEDS: Albuterol/Iprat 2.5/0.5MG 3 ML AMPUL.NEB INHALE ×4 (07:32→20:56)
[2022-03-05] MEDS: rifAXIMin 550 MG TABLET PO ×2 (07:46→20:47)
[2022-03-05] MEDS: Carbidopa/Levodopa 25/100 TABLET 1 TAB PO ×5 (07:46→23:56)
[2022-03-05] MEDS: Metoprolol Tartrate 50 MG TABLET G-TUBE ×2 (07:46→20:47)
[2022-03-05] MEDS: 0.9 % Sodium Chloride Flush 3 ML SYRINGE IVFLUSH ×3 (07:46→12:15)
[2022-03-05] MEDS: Insulin Glargine,Hum.rec.anlog 100 UNIT/ML 10 ML VIAL 25 UNIT SUBCUT (07:47)
[2022-03-05] MEDS: fentaNYL citrate/NS 1,000 MCG/100 ML PLAST..BAG 2.5 MCG IVCONT (08:00)
[2022-03-05] MEDS: Chlorhexidine Gluc Oral Rinse 15 ML MOUTHWASH BUCCAL ×2 (08:58→12:13)
[2022-03-05] MEDS: Ampicillin Sodium/Sulbactam Na 3 GM in 0.9 % Sodium Chloride 100 ML IV ×2 (09:53→20:47)
[2022-03-05] MEDS: Insulin Lispro 100 UNIT/ML 3 ML VIAL SUBCUT ×2 (12:06→18:28)
[2022-03-05] MEDS: Chlorothiazide Sodium 500 MG VIAL IVPUSH (12:07)
[2022-03-05] MEDS: Furosemide 200 MG in 0.9 % Sodium Chloride 80 ML IVCONT (12:14)
--- NOTE | 2022-03-05 12:58 | PC.NURSE ---
This AM during report at bedside, pt's RR 48 in respiratory distress, accessory muscle use, tachypnea, night RN gave 50mcg IVP fentanyl prior to my arrival, coarse crackles lung sounds throughout, pt sitting highfowlers, SaO2 92% on 7L/min oxymask. Lasix drip was titrated up to 10mg/hr per MD LAURA, fentanyl drip at 25mcg/hr started at 0800, RR 38 labored, fentanyl drip increased to 50mcg/hr at 0830, rr still 35 at 0900 titrated to 75mcg/hr, pt RR 20, occasionally when restless goes up to 30's transiently. Pt was given 500mg IVP diuril and U/O increased slightly. Pt is now down to 1.5L/min oxymask, lungs sound remarkable better, fine crackles noted. Tylenol given x2 this shift and packed ICE under bilat axilla, bilat groin, behind neck. Temp high of 102.4-> starting to trend down 102.2. Bed highfolwers, locked and it lowest position. Will continue to monitor.
--- NOTE | 2022-03-05 13:54 | P.PNCC_ITS ---
Subjective Subjective Date of Service: 03/05/22 Interval History: Mr. Blackburn was transferred to ICU on February 25 with hepatic encephalopathy. The patient is a 61-year-old gentleman with underlying history of alcoholic cirrhosis, dementia, ataxia, Parkinson?s disease, and schizophrenia.? He is a resident of [facility].? He takes lactulose and rifaximin at the home.? According to the staff at [facility], he is reasonably high functioning, talks to people, gets around mostly in a wheelchair, but can walk to the bathroom himself, transfers chair to bed by himself. The patient was sent to the ED on 02/19/2022 because of a high ammonia level on labs drawn at [facility].? The patient also reportedly sustained a mechanical fall and hit his head that morning.? In the ER, his mental status was at baseline, according to Dr. Moon. ?Labs showed an ammonia level of 102 (baseline in the 50s).? Total bili was 1.1 (his baseline), transaminases minimally elevated.? BUN/creatinine 29/1.9 (baseline about 16/0.8).? Labs were also notable for chr onic anemia with Hb 9.8 (baseline about 9), platelet count 78K (baseline 50- 70K), INR 1.2, alb 3.2 (baseline about 3.0)..? Head CT showed a small right subdural hematoma. The patient was admitted for neuro observation because of the subdural, and he was continued on the lactulose and rifaximin that he takes at the home.? Follow- up CT the next morning was unchanged, but his mental status had deteriorated.? He was evaluated by Gastroenterology.? Despite the lactulose and rifaximin regimen, his ammonia level continued to rise with worsening hepatic encephalopathy.? An NGT was placed to give him the lactulose and rifaximin.? He was transferred to ICU on 02/25 for further workup and mx. EEG on 02/25 showed ?Severe generalized slowing suggestive of bihemispheric dysfunction.? Metabolic, toxic, or anoxic encephalopathy.?? Brain MRI on 02/26 showed no acute intracranial abnormalities, stable trace right tentorial subdural hematoma, w moderate underlying microangiopathy and generalized cerebral volume loss.? He continued on lactulose and rifaximin.? The ammonia level peaked at 168 on 02/24 came down slowly to normal. Chest CT on 02/28 showed multilobar infiltrates suggestive of COVID disease, but a recheck of his COVID PCR was negative.? That night, he clinically aspirated, with desaturation and tube feeds sucked out of his trachea.? CXR showed multilobar infiltrates, consistent with aspiration.? Cultures were drawn, and he was started on unasyn. ECHO on 03/01 was notable for Normal LV and RV size and function, trace TR, no signif CWD wave, and an enlarged, IVC with limited insp collapse.? He was started on a Lasix drip.? U/O last 24 hours up to 2100cc.? Peripheral edema significantly resolved.? With normalization of his ammonia level, however, his mental status had not normalized.? In consultation with Psychiatry, he was therefore restarted on his Geodon on 03/03.? Yesterday, his mental status was still depressed. As of yesterday morning, he had become afebrile and his white count had normalized, and therefore his Unasyn was discontinued.? However, yesterday after noon, he spiked a temperature greater than 102 degrees, and has been febrile since then.? His RR lorelei through the evening and this morning. This morning he was tachypneic into the 40?s and we had to start him on a fentanyl infusion.? He?s coughing and has signif upper and lower airway rhonchi.? Mental status is about the same as yesterday, although he?s not talking or verbalizing.? Mild-moderately tremulous.? HR 70s, SR.? BP about 120/60.? RR now is down to 20, with Sat up to 98% on 3L oxymask.? Temp 102.4.? No JVD at 30?.? Chest earlier was rhonchorous but now upper and lower airway are clear, with normal expiratory phase.? Heart rate and rhythm are regular, normal-sounding S1 and S2.? No murmur or gallops.? Abdomen is benign.? No pretibial edema; has 1+ central edema. LABORATORY DATA:? Below.? Notably, WBC up to 11, Hb down slightly to 8.2.? Na up to 153, bicarb up to 22 (off the bicarb drip), BUN/creatinine 72/3.1 (from 76/3/0 yesterday), K 3.6 on the diuresis, glucose 225 on the higher dose of Lantus.? BNP up to 2709 MICROBIOLOGY:? Blood and sputum cultures from 03/01 negative.? Blood and urine cx?s from yesterday negative so far. CXR this morning shows diffuse bilateral patchy infiltrates, worse than the last film.? The naso enteral tube is still in position in the region of the ligament of Treitz. IMPRESSION: 1. Underlying Parkinson?s dz, on Sinemet. 2. Underlying schizophrenia. 3. Underlying dementia. 4. Alcoholic cirrhosis. 5. Trace subdural hematoma on CT and MR imaging.? Whether or not that SDH is a consequence of the fall that the patient sustained on the morning of admission is not clear to me, but either way, it?s clinically irrelevant and has nothing to do with the patient?s AMS. 6. AMS.? The patient is presumed to have had hepatic encephalopathy, given his elevated ammonia levels.? But what accounts for his persistent decreased MS and limited responsiveness, despite a normalized ammonia level, is not clear.? Doesn?t appear to have a reason to do an LP.? Repeat head CT 02/28 was unrevealing.? I asked Dr. Moon to come down to see Adilson, and he verified that his mental status is not normal for him.? Note that the patient was not on the Prolixin, Cogentin, or Geodon that he was normally on at [facility]. ? I consulted with Melonie Pacheco (psychiatry) on 03/03, and we restarted him on Geodon.? Hasn?t made any difference yet. ? In the meantime, continuing rifaximin, and lactulose at reduced dose.? Cut the lactulose down to 20G QOD bec of diarrhea.? Continuing Sinemet for underlying parkinsonian disease.? Today I increased the dose to 5 tablets/day to see if that helps his tremulousness and mental status. 7. Aspiration pneumonia.? Having recurrent aspiration, but no evidence of tube feeds in the suctioning. ?I?ll restart the Unasyn.? Had to d/c the prokinetic erythromycin when we restarted the Geodon. 8. Hypoxemic resp failure.? 2? above, possibly also CHF, given the BNP.? I?ve increased the Lasix to 10mg/hour. 9. ERNST. ?BUN/creat seem to have crested at the current level.? At least not getting worse on the diuretic. 10. Hypertension:? BP control on the metoprolol and amlodipine is OK.? D/C?d the Lisinopril bec of his ERNST. 11. Metabolic acidosis.? Mostly 2? ERNST.? Improving. 12. Hypernatremia.? I?ll add low dose D5W to his q4h water flushes. 13. DM.? On Lantus and SS. ?Now on full dose tube feed.? I?ll up his Lantus to 30u bid. 14. ID.? Recurrent aspiration.? I?ll restart the Unasyn. 15. Anemia.? Hemoccult was negative.? RDW is high.? Most likely ACD.? Transfused one unit RBCs on 03/03. 16. Nutrition.? Now on Vital 1.5 at goal rate. 17. Code status.? The likelihood that Mr. Blackburn will wind up intubated is not small, and if that happens, he is not likely to do well.? I discussed with Dr. Moon changing his code status to DNR/DNI.? He called over to [facility] to find out more about the patient?s functional status.? Reportedly, the patient was fairly functional.? So in the absence of a family member who feels otherwise, I do not think DNR/DNI status is practically feasible.? The likelihood, therefore, is that if he winds up intubated, he?ll probably wind up with a tracheostomy and PEG. Critical Care Time (minutes): 70 Physical Exam Vital Signs: Vital Signs: Last Vital Signs Temp 102.4 F H 03/05/22 12:59 Pulse 76 03/05/22 12:59 Resp 26 H 03/05/22 12:59 BP 114/51 L 03/05/22 12:59 Pulse Ox 97 03/05/22 12:59 BMI result Body Mass Index 34.9 Objective Data Labs CBC & Chem 7: 03/05/22 05:24 03/05/22 05:24 Labs: Laboratory Results - last 24 hr 03/04/22 03/05/22 03/05/22 13:31 05:24 05:24 WBC 11.4 H RBC 2.62 L Hgb 8.2 L Hct 24.5 L MCV 93.5 MCH 31.3 MCHC 33.5 RDW 18.7 H Plt Count 90 L MPV 11.5 Absolute Nucleated RBC 0.000 Nucleated RBC % (auto) 0.0 Sodium 153 H Potassium 3.6 Chloride 118 H Carbon Dioxide 22 Anion Gap 17 BUN 72 H Creatinine 3.19 H Estim Creat Clear Calc 26.0 Estimated GFR 20 Random Glucose 225 H D Calcium 7.3 L Phosphorus 2.7 Magnesium 2.3 Total Bilirubin 2.1 H AST 45 H ALT 10 Alkaline Phosphatase 67 Total Creatine Kinase 320 H B-Natriuretic Peptide Total Protein 5.8 L Albumin 3.2 L Urine Color YELLOW Urine Appearance HAZY Urine pH 5.5 Ur Specific Pioneer 1.020 Urine Protein 2+ H Urine Glucose (UA) NEG Urine Ketones NEG Urine Blood 3+ H Urine Nitrite NEG Ur Leukocyte Esterase 1+ H Urine RBC TNTC H Urine WBC 5-9 H Ur Squamous Epith Cells 1+ Urine Bacteria NONE 03/05/22 05:24 WBC RBC Hgb Hct MCV MCH MCHC RDW Plt Count MPV Absolute Nucleated RBC Nucleated RBC % (auto) Sodium Potassium Chloride Carbon Dioxide Anion Gap BUN Creatinine Estim Creat Clear Calc Estimated GFR Random Glucose Calcium Phosphorus Magnesium Total Bilirubin AST ALT Alkaline Phosphatase Total Creatine Kinase B-Natriuretic Peptide 2709 H Total Protein Albumin Urine Color Urine Appearance Urine pH Ur Specific Pioneer Urine Protein Urine Glucose (UA) Urine Ketones Urine Blood Urine Nitrite Ur Leukocyte Esterase Urine RBC Urine WBC Ur Squamous Epith Cells Urine Bacteria Microbiology Microbiology Results: Microbiology 03/04/22 13:31 Urine Catheterized - Ybarra Catheter Urine Culture - Final No growth. 03/01/22 05:25 Sputum - Suctioned Gram Stain - Final 03/01/22 05:25 Sputum - Suctioned Sputum Culture - Final 03/01/22 02:27 Blood - Venous Blood Culture - Preliminary No growth after 48 hours. 03/01/22 02:27 Blood - Venous Blood Culture - Preliminary No growth after 48 hours. Quality Stroke Does the patient have a stroke diagnosis?: No VTE Prior VTE?: No VTE Risk Level:: Medical - moderate - high VTE Device Contraindication: N/A - Device Ordered VTE Drug Contraindication: Treatment Not Indicated Critical Care Time Critical Care Time (minutes): 60
[2022-03-05] MEDS: Dextrose 5 % 1,000 ML 50 ML IVCONT (13:59)
[2022-03-05 17:20] LABS: Lactate Dehydrogenase 632 U/L (118-273)
--- NOTE | 2022-03-05 18:16 | P.PNNP_ITS ---
Subjective Subjective Date of Service: 03/05/22 Interval history: CHart Reviewed. Events noted. Physical Exam Vital Signs: Vital Signs: Last Vital Signs Temp 101.8 F H 03/05/22 16:00 Pulse 81 03/05/22 16:00 Resp 21 H 03/05/22 16:00 BP 150/52 H 03/05/22 16:00 Pulse Ox 94 03/05/22 16:00 BMI result Body Mass Index 34.9 Const: General: awake and confusion Orientation/consciousness: confusion HEENT: Head: Yes normocephalic and Yes atraumatic Neck: Neck: Yes no JVD Resp: Auscultation: crackles Cardio: Jugular venous distension: no JVD Rate: tachycardic Rhythm: regular rhythm Heart sounds: S1 normal heart sound present and S2 normal heart sound present GI: Auscultation: normal bowel sounds Neuro: General: confusion Extrem: General: Yes pedal edema Objective Data Labs CBC & Chem 7: 03/05/22 05:24 03/05/22 05:24 Labs: Laboratory Results - last 24 hr 03/05/22 03/05/22 03/05/22 05:24 05:24 05:24 WBC 11.4 H RBC 2.62 L Hgb 8.2 L Hct 24.5 L MCV 93.5 MCH 31.3 MCHC 33.5 RDW 18.7 H Plt Count 90 L MPV 11.5 Absolute Nucleated RBC 0.000 Nucleated RBC % (auto) 0.0 Sodium 153 H Potassium 3.6 Chloride 118 H Carbon Dioxide 22 Anion Gap 17 BUN 72 H Creatinine 3.19 H Estim Creat Clear Calc 26.0 Estimated GFR 20 Random Glucose 225 H D Calcium 7.3 L Phosphorus 2.7 Magnesium 2.3 Total Bilirubin 2.1 H AST 45 H ALT 10 Alkaline Phosphatase 67 Lactate Dehydrogenase Total Creatine Kinase 320 H B-Natriuretic Peptide 2709 H Total Protein 5.8 L Albumin 3.2 L 03/05/22 16:56 WBC RBC Hgb Hct MCV MCH MCHC RDW Plt Count MPV Absolute Nucleated RBC Nucleated RBC % (auto) Sodium Potassium Chloride Carbon Dioxide Anion Gap BUN Creatinine Estim Creat Clear Calc Estimated GFR Random Glucose Calcium Phosphorus Magnesium Total Bilirubin AST ALT Alkaline Phosphatase Lactate Dehydrogenase 632 H Total Creatine Kinase B-Natriuretic Peptide Total Protein Albumin Microbiology Microbiology Results: Microbiology 03/04/22 12:28 Blood - Venous Blood Culture - Preliminary No growth after 24 hours. 03/04/22 12:28 Blood - Venous Blood Culture - Preliminary No growth after 24 hours. 03/04/22 13:31 Urine Catheterized - Ybarra Catheter Urine Culture - Final No growth. 03/01/22 05:25 Sputum - Suctioned Gram Stain - Final 03/01/22 05:25 Sputum - Suctioned Sputum Culture - Final 03/01/22 02:27 Blood - Venous Blood Culture - Preliminary No growth after 48 hours. 03/01/22 02:27 Blood - Venous Blood Culture - Preliminary No growth after 48 hours. Procedures Date of Service Date of Service: 03/05/22 Assessment & Plan Assessment and plan (1) Hypernatremia: Status: Acute Assessment and Plan: ERNST, non-oliguric: #)ERNST, non-oliguric. -Continue with lasix infusion at 8 mg/hr. -OK for additional dose of 250 mg IV chlorothiazide. -ERNST in setting of hepatic encephalopathy. -Suspect his worsening ERNST is from hypervolemia with noted underlying liver failure and cardiomegaly. -Colloid product(s) will help defend IV space. s/p prbc transfusion -Monitor I/O's -daily weights, -avoidance of nephrotoxic agents. Hold?lisinopril.?Hold metformin. Avoidance of nsaids, IV contrast, and renal dosing of abx. -imaging noted. No evidence of hydronephrosis. Ybarra in place. #) Hypernatremia, suggest increasing FW flushes for noted 2 L FWD. chlorothiaz kenisha IV will also assist with additional Na excretion in setting of hypernatremic hypervolemia. Na-HCO3 infusion has helped to correct metabolic acidosis however continues to be febrile with noted elevated lactic acid. #) HAGMA - agree with Na-HCO3. His HAGMA with secondary respiratory acidosis is likely combination of ernst, lactic acidosis (concern for Asp. PNA), and liver failure. #) Electrolytes - Monitor K and Mg with lasix infusion. #) Metabolic acidosis: improving Rest per CCM team. (2) ERNST (acute kidney injury): Status: Acute Time Spent With Patient Time: Total time spent is greater than 50% in coordination of care (as documented) at patient's floor/unit and/or counseling patient: Progress Note: Quality Stroke Does the patient have a stroke diagnosis?: No
[2022-03-05] MEDS: fentaNYL citrate/NS 1,000 MCG/100 ML PLAST..BAG 7.5 MCG IVCONT (18:41)
[2022-03-05 20:31] LABS: Glucose, Whole Blood 256 mg/dL (60-115)
[2022-03-05 20:31] LABS: Glucose, Whole Blood 286 mg/dL (60-115)
[2022-03-05 20:31] LABS: Glucose, Whole Blood 265 mg/dL (60-115)
[2022-03-05 20:31] LABS: Glucose, Whole Blood 236 mg/dL (60-115)
[2022-03-05 20:31] LABS: Glucose, Whole Blood 200 mg/dL (60-115)
[2022-03-05 20:31] LABS: Glucose, Whole Blood 273 mg/dL (60-115)
[2022-03-05] MEDS: amLODIPine Besylate 10 MG TABLET PO (20:47)
[2022-03-05 23:49] LABS: Glucose, Whole Blood 240 mg/dL (60-115)
[2022-03-05] MEDS: Insulin Glargine,Hum.rec.anlog 100 UNIT/ML 10 ML VIAL 30 UNIT SUBCUT (23:58)
[2022-03-06] VITALS (30 sets, daily range): BP systolic 103–144; BP diastolic 34–58; PULSE 54–102; RESP 12–33; TEMP 37.2–39.3; O2SAT 91–99
[2022-03-06] MEDS: 0.9 % Sodium Chloride Flush 3 ML SYRINGE IVFLUSH ×3 (00:01→15:16)
[2022-03-06 05:21] LABS: VBG Base Excess -0.1 mmol/L; VBG HCO3 24 mmol/L (22-26); VBG pCO2 36 mmHg; VBG pH 7.42 (7.32-7.43); VBG pO2 48 mmHg
[2022-03-06 05:22] LABS: Hemoglobin 7.5 g/dl (14.0-18.0); Mean Corpuscular HGB Conc 32.6 g/dl (31.0-36.0); Mean Corpuscular Hemoglobin 30.6 pg (27.0-33.0); Mean Corpuscular Volume 93.9 fL (80.0-98.0); Red Blood Count 2.45 X10*6/uL (4.60-5.80); Red Cell Distribution Width 18.6 % (11.0-16.0); White Blood Count 9.2 X10*3/uL (4.8-10.8)
[2022-03-06 05:23] LABS: Platelet Count 67 X10*3/uL (160-400)
[2022-03-06 05:34] LABS: Ammonia 23 umol/L (13-55)
[2022-03-06 05:35] LABS: Venous Blood Gas Refer to POC result
[2022-03-06 05:35] LABS: Lactic Acid 1.8 mmol/L (0.5-2.0)
[2022-03-06 05:44] LABS: B Type Natriuretic Peptide 2505 pg/mL (<100)
[2022-03-06 05:46] LABS: Anion Gap 14 (12-20); Blood Urea Nitrogen 70 mg/dL (9-16); Calcium 6.7 mg/dL (8.4-10.2); Carbon Dioxide 25 mmol/L (22-29); Chloride 114 mmol/L (96-108); Creatinine Clr Calc Pharmacy 24.9; Estimated Glomerular Filt Rate 19; Glucose Random 285 mg/dL (60-115); Magnesium 2.3 mg/dL (1.6-2.6); Phosphorus 3.7 mg/dL (2.7-4.5); Potassium 3.1 mmol/L (3.3-5.1); Sodium 150 mmol/L (135-145)
[2022-03-06 06:08] LABS: Glucose, Whole Blood 261 mg/dL (60-115)
[2022-03-06] MEDS: Insulin Lispro 100 UNIT/ML 3 ML VIAL SUBCUT ×4 (06:08→18:01)
[2022-03-06] MEDS: Carbidopa/Levodopa 25/100 TABLET 2 TAB PO (06:09)
[2022-03-06] MEDS: Levothyroxine Sodium 25 MCG TABLET PO (06:09)
[2022-03-06 06:39] LABS: Procalcitonin 0.84 ng/mL
[2022-03-06] MEDS: Albuterol/Iprat 2.5/0.5MG 3 ML AMPUL.NEB INHALE ×4 (08:02→19:31)
[2022-03-06] MEDS: fentaNYL citrate/NS 1,000 MCG/100 ML PLAST..BAG 7.5 MCG IVCONT (08:15)
[2022-03-06] MEDS: Chlorhexidine Gluc Oral Rinse 15 ML MOUTHWASH BUCCAL ×3 (08:19→20:14)
[2022-03-06] MEDS: Ampicillin Sodium/Sulbactam Na 3 GM in 0.9 % Sodium Chloride 100 ML IV ×2 (08:19→20:15)
[2022-03-06] MEDS: Metoprolol Tartrate 50 MG TABLET G-TUBE ×2 (08:20→20:15)
[2022-03-06] MEDS: rifAXIMin 550 MG TABLET PO ×2 (08:20→20:15)
[2022-03-06] MEDS: Chlorothiazide Sodium 500 MG VIAL IVPUSH (08:21)
[2022-03-06] MEDS: Insulin Glargine,Hum.rec.anlog 100 UNIT/ML 10 ML VIAL 30 UNIT SUBCUT (08:21)
[2022-03-06] MEDS: Potassium Chloride Packet 20 MEQ PACKET 40 MEQ G-TUBE ×3 (08:45→18:02)
[2022-03-06] MEDS: Furosemide 200 MG in 0.9 % Sodium Chloride 80 ML IVCONT (08:46)
[2022-03-06] MEDS: Dextrose 5 % 1,000 ML 50 ML IVCONT (08:47)
[2022-03-06] MEDS: Ziprasidone Mesylate 20 MG VIAL IM (09:01)
[2022-03-06] MEDS: Nystatin Powder 15 GM BOTTLE 1 APPL TOPICAL ×2 (11:04→20:16)
[2022-03-06] MEDS: Carbidopa/Levodopa 25/100 TABLET 1 TAB PO ×2 (11:07→18:01)
[2022-03-06 11:57] LABS: Glucose, Whole Blood 278 mg/dL (60-115)
--- NOTE | 2022-03-06 16:02 | PM.PNNEP ---
Subjective Subjective Date of Service: 03/06/22 Interval history: CHart Reviewed. Events noted. Physical Exam Vital Signs: Vital Signs: Last Vital Signs Temp 99.0 F 03/06/22 16:00 Pulse 58 03/06/22 16:00 Resp 12 03/06/22 16:00 BP 111/46 L 03/06/22 16:00 Pulse Ox 97 03/06/22 16:00 BMI result Body Mass Index 34.9 Const: General: no acute distress and confusion Orientation/consciousness: confusion HEENT: Head: Yes normocephalic and Yes atraumatic Neck: Neck: Yes no JVD Resp: Auscultation: crackles Cardio: Jugular venous distension: no JVD Rate: regular rate Rhythm: regular rhythm Heart sounds: S1 normal heart sound present and S2 normal heart sound present GI: Auscultation: normal bowel sounds Neuro: General: confusion Extrem: Right upper extremity: edema Left upper extremity: edema Right lower extremity: edema Left lower extremity: edema Objective Data Labs CBC & Chem 7: 03/06/22 05:13 03/06/22 05:13 Labs: Laboratory Results - last 24 hr 03/04/22 03/04/22 03/04/22 17:53 20:42 23:54 WBC RBC Hgb Hct MCV MCH MCHC RDW Plt Count MPV Absolute Nucleated RBC Nucleated RBC % (auto) VBG pH VBG pCO2 VBG pO2 VBG HCO3 VBG O2 Saturation VBG Base Excess Sodium Potassium Chloride Carbon Dioxide Anion Gap BUN Creatinine Estim Creat Clear Calc Estimated GFR POC Glucose 273 H 265 H 286 H Random Glucose Lactic Acid Calcium Phosphorus Magnesium Ammonia Lactate Dehydrogenase B-Natriuretic Peptide Procalcitonin 03/05/22 03/05/22 03/05/22 05:22 11:50 16:56 WBC RBC Hgb Hct MCV MCH MCHC RDW Plt Count MPV Absolute Nucleated RBC Nucleated RBC % (auto) VBG pH VBG pCO2 VBG pO2 VBG HCO3 VBG O2 Saturation VBG Base Excess Sodium Potassium Chloride Carbon Dioxide Anion Gap BUN Creatinine Estim Creat Clear Calc Estimated GFR POC Glucose 200 H 256 H Random Glucose Lactic Acid Calcium Phosphorus Magnesium Ammonia Lactate Dehydrogenase 632 H B-Natriuretic Peptide Procalcitonin 03/05/22 03/05/22 03/06/22 18:17 23:47 05:12 WBC RBC Hgb Hct MCV MCH MCHC RDW Plt Count MPV Absolute Nucleated RBC Nucleated RBC % (auto) VBG pH VBG pCO2 VBG pO2 VBG HCO3 VBG O2 Saturation VBG Base Excess Sodium Potassium Chloride Carbon Dioxide Anion Gap BUN Creatinine Estim Creat Clear Calc Estimated GFR POC Glucose 236 H 240 H Random Glucose Lactic Acid Calcium Phosphorus Magnesium Ammonia Lactate Dehydrogenase B-Natriuretic Peptide 2505 H Procalcitonin 03/06/22 03/06/22 03/06/22 05:12 05:13 05:13 WBC 9.2 RBC 2.45 L Hgb 7.5 L Hct 23.0 L MCV 93.9 MCH 30.6 MCHC 32.6 RDW 18.6 H Plt Count 67 L D MPV 11.0 Absolute Nucleated RBC 0.000 Nucleated RBC % (auto) 0.0 VBG pH VBG pCO2 VBG pO2 VBG HCO3 VBG O2 Saturation VBG Base Excess Sodium Potassium Chloride Carbon Dioxide Anion Gap BUN Creatinine Estim Creat Clear Calc Estimated GFR POC Glucose Random Glucose Lactic Acid Calcium Phosphorus Magnesium Ammonia 23 Lactate Dehydrogenase B-Natriuretic Peptide Procalcitonin 0.84 03/06/22 03/06/22 03/06/22 05:13 05:13 05:13 WBC RBC Hgb Hct MCV MCH MCHC RDW Plt Count MPV Absolute Nucleated RBC Nucleated RBC % (auto) VBG pH 7.42 VBG pCO2 36 VBG pO2 48 VBG HCO3 24 VBG O2 Saturation 80.0 VBG Base Excess -0.1 Sodium 150 H Potassium 3.1 L Chloride 114 H Carbon Dioxide 25 Anion Gap 14 BUN 70 H Creatinine 3.32 H Estim Creat Clear Calc 24.9 Estimated GFR 19 POC Glucose Random Glucose 285 H Lactic Acid 1.8 Calcium 6.7 L D Phosphorus 3.7 Magnesium 2.3 Ammonia Lactate Dehydrogenase B-Natriuretic Peptide Procalcitonin 03/06/22 03/06/22 06:04 11:53 WBC RBC Hgb Hct MCV MCH MCHC RDW Plt Count MPV Absolute Nucleated RBC Nucleated RBC % (auto) VBG pH VBG pCO2 VBG pO2 VBG HCO3 VBG O2 Saturation VBG Base Excess Sodium Potassium Chloride Carbon Dioxide Anion Gap BUN Creatinine Estim Creat Clear Calc Estimated GFR POC Glucose 261 H 278 H Random Glucose Lactic Acid Calcium Phosphorus Magnesium Ammonia Lactate Dehydrogenase B-Natriuretic Peptide Procalcitonin Microbiology Microbiology Results: Microbiology 03/04/22 12:28 Blood - Venous Blood Culture - Preliminary No growth after 48 hours. 03/04/22 12:28 Blood - Venous Blood Culture - Preliminary No growth after 48 hours. 03/01/22 02:27 Blood - Venous Blood Culture - Final No growth after 5 days. 03/01/22 02:27 Blood - Venous Blood Culture - Final No growth after 5 days. 03/04/22 13:31 Urine Catheterized - Ybarra Catheter Urine Culture - Final No growth. 03/01/22 05:25 Sputum - Suctioned Gram Stain - Final 03/01/22 05:25 Sputum - Suctioned Sputum Culture - Final Procedures Date of Service Date of Service: 03/06/22 Assessment & Plan Assessment and plan (1) Hypervolemia: Status: Acute (2) Hypernatremia: Status: Acute (3) ERNST (acute kidney injury): Status: Acute Plan ERNST, non-oliguric: #)ERNST, non-oliguric. -Continue with lasix infusion at 8 mg/hr. -OK for additional dose of 250 mg IV chlorothiazide. -ERNST in setting of hepatic encephalopathy. -Suspect his worsening ERNST is from hypervolemia with noted underlying liver failure and cardiomegaly. -Colloid product(s) will help defend IV space. s/p prbc transfusion -Monitor I/O's -daily weights, -avoidance of nephrotoxic agents. Hold lisinopril. Hold metformin. Avoidance of nsaids, IV contrast, and renal dosing of abx. -imaging noted. No evidence of hydronephrosis. Ybarra in place. #) Hypernatremia with hypervolemia. chlorothiazide IV will also assist with additional Na excretion in setting of hypernatremic hypervolemia. #) HAGMA - resolved. Would hold off on additional Na-HCO3 which will contribute to his hypernatremia. #) Electrolytes - Monitor K and Mg with lasix infusion. #) Metabolic acidosis: improving Rest per CCM team. Time Spent With Patient Time: Total time spent is greater than 50% in coordination of care (as documented) at patient's floor/unit and/or counseling patient: Progress Note: Quality Stroke Does the patient have a stroke diagnosis?: No
[2022-03-06 17:57] LABS: Glucose, Whole Blood 247 mg/dL (60-115)
--- NOTE | 2022-03-06 19:25 | PM.CCPN ---
Subjective Subjective Date of Service: 03/06/22 Interval History: Mr. Blackburn was transferred to ICU on February 25 with hepatic encephalopathy. The patient is a 61-year-old gentleman with underlying history of alcoholic cirrhosis, dementia, ataxia, Parkinson?s disease, and schizophrenia.? He is a resident of [facility].? He takes lactulose and rifaximin at the home.? According to the staff at [facility], he is reasonably high functioning, talks to people, gets around mostly in a wheelchair, but can walk to the bathroom himself, transfers chair to bed by himself. The patient was sent to the ED on 02/19/2022 because of a high ammonia level on labs drawn at [facility].? The patient also reportedly sustained a mechanical fall and hit his head that morning.? In the ER, his mental status was at baseline, according to Dr. Moon. ?Labs showed an ammonia level of 102 (baseline in the 50s).? Total bili was 1.1 (his baseline), transaminases minimally elevated.? BUN/creatinine 29/1.9 (baseline about 16/0.8).? Labs were also notable for chronic anemia with Hb 9.8 (baseline about 9), platelet count 78K (baseline 50-70K), INR 1.2, alb 3.2 (baseline about 3.0)..? Head CT showed a small right subdural hematoma. The patient was admitted for neuro observation because of the subdural, and he was continued on the lactulose and rifaximin that he takes at the home.? Follow-up CT the next morning was unchanged, but his mental status had deteriorated.? He was evaluated by Gastroenterology.? Despite the lactulose and rifaximin regimen, his ammonia level continued to rise with worsening hepatic encephalopathy.? An NGT was placed to give him the lactulose and rifaximin.? He was transferred to ICU on 02/25 for further workup and mx. EEG on 02/25 showed ?Severe generalized slowing suggestive of bihemispheric dysfunction.? Metabolic, toxic, or anoxic encephalopathy.?? Brain MRI on 02/26 showed no acute intracranial abnormalities, stable trace right tentorial subdural hematoma, w moderate underlying microangiopathy and generalized cerebral volume loss.? He continued on lactulose and rifaximin.? The ammonia level peaked at 168 on 02/24 came down slowly to normal. Chest CT on 02/28 showed multilobar infiltrates suggestive of COVID disease, but a recheck of his COVID PCR was negative.? That night, he clinically aspirated, with desaturation and tube feeds sucked out of his trachea.? CXR showed multilobar infiltrates, consistent with aspiration.? Cultures were drawn, and he was started on unasyn. ECHO on 03/01 was notable for Normal LV and RV size and function, trace TR, no signif CWD wave, and an enlarged, IVC with limited insp collapse.? He was started on a Lasix drip and I added diuril yesterday.? U/O last 24 hours up to 4800cc.? Peripheral edema significantly resolved.? With normalization of his ammonia level, however, his mental status had not normalized.? In consultation with Psychiatry, he was therefore restarted on his Geodon on 03/03.? Yesterday, his mental status was still depressed. On 03/04, he spiked a temperature greater than 102 degrees, and had been febrile until this morning.? His RR lorelei and he was coughing more, requiring a fentanyl infusion.? His MS was worse.? CXR yesterday showed worse bilat infiltrates.? But the naso enteral tube is still in the duodenum at the ligament of Treitz. Today, he?s more alert, answered questions with one word answers.? On Fentanyl 75ug, RR is in the low teens with no WOB.? Sat is 92% on room air.? Mild-moderately tremulous.? HR 60s, SR.? BP 119/43.? Temp is now afebrile since 11am.? No JVD at 30?.? Chest and upper airway are now clear, with normal expiratory phase.? Heart rate and rhythm are regular, normal-sounding S1 and S2.? No murmur or gallops.? Abdomen is benign.? No pretibial edema; has 1+ central edema. LABORATORY DATA:? Below.? Notably, WBC back down to 9, Hb down to 7.5? Na down to 150 on low dose D5W, bicarb up to 25 (off the bicarb drip), BUN/creatinine 70/3.3. (from 72/3.1 yesterday), K 3.1 on the Lasix drip, glucose 285 on the higher dose of Lantus.? Ammonia level today is 23. MICROBIOLOGY:? Blood and sputum cultures from 03/01 negative.? Blood and urine cx?s negative. IMPRESSION: 1. Underlying Parkinson?s dz, on Sinemet. 2. Underlying schizophrenia. 3. Underlying dementia. 4. Alcoholic cirrhosis. 5. Trace subdural hematoma on CT and MR imaging.? Whether or not that SDH is a consequence of the fall that the patient sustained on the morning of admission is not clear to me, but either way, it?s clinically irrelevant and has nothing to do with the patient?s AMS. 6. AMS.? The patient is presumed to have had hepatic encephalopathy, given his elevated ammonia levels.? But what accounts for his persistent decreased MS and limited responsiveness, despite a normalized ammonia level, is not clear.? Furthermore, his ammonia level now is down to 23, and I?ve been holding the lactulose for the last 2 days. ?Doesn?t appear to have a reason to do an LP.? Repeat head CT 02/28 was unrevealing.? I asked Dr. Moon to come down to see Adilson, and he verified that his mental status is not normal for him.? Note that the patient was not on the Prolixin, Cogentin, or Geodon that he was normally on at [facility]. ? I consulted with Melonie Pacheco (psychiatry) on 03/03, and we restarted him on Geodon.? Hasn?t made a clear difference yet. ? In the meantime, continuing rifaximin.? Continuing Sinemet for underlying parkinsonian disease.? Yesterday I increased the dose to 5 tablets/day to see if that helps his tremulousness and mental status. 7. Aspiration pneumonia.? Having recurrent aspiration, but no evidence of tube feeds in the suctioning. ?Restarted the Unasyn yesterday.? Had to d/c the prokinetic erythromycin when we restarted the Geodon. 8. Hypoxemic resp failure.? 2? above, possibly also CHF, given the BNP.? Yesterday increased the Lasix to 10mg/hour.? Will d/c the Diuril bec of the copious u/o. 9. ERNST. ?BUN/creat seem to have crested at the current level.? At least not getting worse on the diuretic. 10. Hypertension:? BP control on the metoprolol and amlodipine is OK.? D/C?d the Lisinopril bec of his ERNST. 11. Hypernatremia.? Improving on low dose D5W, with the q4hr water flushes. 12. DM.? On Lantus and SS. ?Now on full dose tube feed.? I upped his Lantus to 38u bid. 13. ID.? Recurrent aspiration.? Today is Unasyn day# 2. 14. Anemia.? Hemoccult was negative.? RDW is high.? Most likely ACD.? Transfused one unit RBCs on 03/03. 15. Nutrition.? Now on Vital 1.5 at goal rate. 16. Code status.? The likelihood that Mr. Blackburn will wind up intubated is not small, and if that happens, he is not likely to do well.? I discussed with Dr. Moon changing his code status to DNR/DNI.? He called over to [facility] to find out more about the patient?s functional status.? Reportedly, the patient was fairly functional.? So in the absence of a family member who feels otherwise, I do not think DNR/DNI status is practically feasible.? The likelihood, therefore, is that if he winds up intubated, he?ll probably wind up with a tracheostomy and PEG. Critical Care Time (minutes): 60 Physical Exam Vital Signs: Vital Signs: Last Vital Signs Temp 99.9 F 03/06/22 19:00 Pulse 67 03/06/22 19:00 Resp 14 03/06/22 19:00 BP 103/58 L 03/06/22 19:00 Pulse Ox 94 03/06/22 19:00 BMI result Body Mass Index 34.9 Objective Data Labs CBC & Chem 7: 03/06/22 05:13 03/06/22 05:13 Labs: Laboratory Results - last 24 hr 03/04/22 03/04/22 03/04/22 17:53 20:42 23:54 WBC RBC Hgb Hct MCV MCH MCHC RDW Plt Count MPV Absolute Nucleated RBC Nucleated RBC % (auto) VBG pH VBG pCO2 VBG pO2 VBG HCO3 VBG O2 Saturation VBG Base Excess Sodium Potassium Chloride Carbon Dioxide Anion Gap BUN Creatinine Estim Creat Clear Calc Estimated GFR POC Glucose 273 H 265 H 286 H Random Glucose Lactic Acid Calcium Phosphorus Magnesium Ammonia B-Natriuretic Peptide Procalcitonin 03/05/22 03/05/22 03/05/22 05:22 11:50 18:17 WBC RBC Hgb Hct MCV MCH MCHC RDW Plt Count MPV Absolute Nucleated RBC Nucleated RBC % (auto) VBG pH VBG pCO2 VBG pO2 VBG HCO3 VBG O2 Saturation VBG Base Excess Sodium Potassium Chloride Carbon Dioxide Anion Gap BUN Creatinine Estim Creat Clear Calc Estimated GFR POC Glucose 200 H 256 H 236 H Random Glucose Lactic Acid Calcium Phosphorus Magnesium Ammonia B-Natriuretic Peptide Procalcitonin 03/05/22 03/06/22 03/06/22 23:47 05:12 05:12 WBC RBC Hgb Hct MCV MCH MCHC RDW Plt Count MPV Absolute Nucleated RBC Nucleated RBC % (auto) VBG pH VBG pCO2 VBG pO2 VBG HCO3 VBG O2 Saturation VBG Base Excess Sodium Potassium Chloride Carbon Dioxide Anion Gap BUN Creatinine Estim Creat Clear Calc Estimated GFR POC Glucose 240 H Random Glucose Lactic Acid Calcium Phosphorus Magnesium Ammonia B-Natriuretic Peptide 2505 H Procalcitonin 0.84 03/06/22 03/06/22 03/06/22 05:13 05:13 05:13 WBC 9.2 RBC 2.45 L Hgb 7.5 L Hct 23.0 L MCV 93.9 MCH 30.6 MCHC 32.6 RDW 18.6 H Plt Count 67 L D MPV 11.0 Absolute Nucleated RBC 0.000 Nucleated RBC % (auto) 0.0 VBG pH VBG pCO2 VBG pO2 VBG HCO3 VBG O2 Saturation VBG Base Excess Sodium 150 H Potassium 3.1 L Chloride 114 H Carbon Dioxide 25 Anion Gap 14 BUN 70 H Creatinine 3.32 H Estim Creat Clear Calc 24.9 Estimated GFR 19 POC Glucose Random Glucose 285 H Lactic Acid Calcium 6.7 L D Phosphorus 3.7 Magnesium 2.3 Ammonia 23 B-Natriuretic Peptide Procalcitonin 03/06/22 03/06/22 03/06/22 05:13 05:13 06:04 WBC RBC Hgb Hct MCV MCH MCHC RDW Plt Count MPV Absolute Nucleated RBC Nucleated RBC % (auto) VBG pH 7.42 VBG pCO2 36 VBG pO2 48 VBG HCO3 24 VBG O2 Saturation 80.0 VBG Base Excess -0.1 Sodium Potassium Chloride Carbon Dioxide Anion Gap BUN Creatinine Estim Creat Clear Calc Estimated GFR POC Glucose 261 H Random Glucose Lactic Acid 1.8 Calcium Phosphorus Magnesium Ammonia B-Natriuretic Peptide Procalcitonin 03/06/22 03/06/22 11:53 17:53 WBC RBC Hgb Hct MCV MCH MCHC RDW Plt Count MPV Absolute Nucleated RBC Nucleated RBC % (auto) VBG pH VBG pCO2 VBG pO2 VBG HCO3 VBG O2 Saturation VBG Base Excess Sodium Potassium Chloride Carbon Dioxide Anion Gap BUN Creatinine Estim Creat Clear Calc Estimated GFR POC Glucose 278 H 247 H Random Glucose Lactic Acid Calcium Phosphorus Magnesium Ammonia B-Natriuretic Peptide Procalcitonin Microbiology Microbiology Results: Microbiology 03/04/22 12:28 Blood - Venous Blood Culture - Preliminary No growth after 48 hours. 03/04/22 12:28 Blood - Venous Blood Culture - Preliminary No growth after 48 hours. 03/01/22 02:27 Blood - Venous Blood Culture - Final No growth after 5 days. 03/01/22 02:27 Blood - Venous Blood Culture - Final No growth after 5 days. 03/04/22 13:31 Urine Catheterized - Ybarra Catheter Urine Culture - Final No growth. 03/01/22 05:25 Sputum - Suctioned Gram Stain - Final 03/01/22 05:25 Sputum - Suctioned Sputum Culture - Final Quality Stroke Does the patient have a stroke diagnosis?: No VTE Prior VTE?: No VTE Risk Level:: Medical - moderate - high VTE Device Contraindication: N/A - Device Ordered VTE Drug Contraindication: Treatment Not Indicated Critical Care Time Critical Care Time (minutes): 60
[2022-03-06 19:41] LABS: Urea, Random Urine 546 mg/dL
[2022-03-06] MEDS: fentaNYL citrate/NS 1,000 MCG/100 ML PLAST..BAG 5 MCG IVCONT (20:11)
[2022-03-06] MEDS: Insulin Glargine,Hum.rec.anlog 100 UNIT/ML 10 ML VIAL 38 UNIT SUBCUT (20:15)
[2022-03-06] MEDS: amLODIPine Besylate 10 MG TABLET PO (20:15)
[2022-03-06 23:54] LABS: Glucose, Whole Blood 210 mg/dL (60-115)
[2022-03-07] VITALS (22 sets, daily range): BP systolic 102–145; BP diastolic 40–81; PULSE 59–127; RESP 15–26; TEMP 36.9–38.6; O2SAT 91–99
[2022-03-07] MEDS: Insulin Lispro 100 UNIT/ML 3 ML VIAL SUBCUT
[2022-03-07] MEDS: Acetaminophen Oral Liquid 650 MG/20.3 ML SOLUTION G-TUBE (00:04)
[2022-03-07 05:31] LABS: VBG Base Excess 3.7 mmol/L; VBG HCO3 29 mmol/L (22-26); VBG pCO2 53 mmHg; VBG pH 7.35 (7.32-7.43); VBG pO2 32 mmHg
[2022-03-07 05:33] LABS: Venous Blood Gas Refer to POC result
[2022-03-07 05:37] LABS: Hematocrit 25.3 % (42.0-52.0); Hemoglobin 8.1 g/dl (14.0-18.0); Mean Corpuscular Hemoglobin 30.7 pg (27.0-33.0); Mean Corpuscular Volume 95.8 fL (80.0-98.0); Mean Platelet Volume 11.4 fL (9.4-12.4); Red Blood Count 2.64 X10*6/uL (4.60-5.80); Red Cell Distribution Width 17.9 % (11.0-16.0); White Blood Count 10.9 X10*3/uL (4.8-10.8)
[2022-03-07 05:40] LABS: Platelet Count 94 X10*3/uL (160-400)
[2022-03-07 05:47] LABS: Ammonia 34 umol/L (13-55)
[2022-03-07 05:59] LABS: Alanine Aminotransferase < 6 U/L (0-40); Albumin Level 2.7 g/dL (3.5-5.0); Alkaline Phosphatase 63 U/L (39-117); Anion Gap 16 (12-20); Aspartate Amino Transferase 54 U/L (5-37); Bilirubin Total 1.4 mg/dL (0.0-1.0); Blood Urea Nitrogen 71 mg/dL (9-16); Calcium 6.9 mg/dL (8.4-10.2); Carbon Dioxide 27 mmol/L (22-29); Chloride 113 mmol/L (96-108); Estimated Glomerular Filt Rate 20; Glucose Random 166 mg/dL (60-115); Magnesium 2.2 mg/dL (1.6-2.6); Phosphorus 3.9 mg/dL (2.7-4.5); Potassium 3.6 mmol/L (3.3-5.1); Sodium 152 mmol/L (135-145); Total Protein 5.4 g/dL (6.5-8.0)
[2022-03-07] MEDS: Carbidopa/Levodopa 25/100 TABLET 2 TAB PO (06:11)
[2022-03-07] MEDS: Dextrose 5 % 1,000 ML 50 ML IVCONT (06:11)
[2022-03-07] MEDS: Levothyroxine Sodium 25 MCG TABLET PO (06:12)
[2022-03-07 06:39] LABS: Glucose, Whole Blood 176 mg/dL (60-115)
[2022-03-07] MEDS: Furosemide 200 MG in 0.9 % Sodium Chloride 80 ML IVCONT (07:17)
[2022-03-07] MEDS: Albuterol/Iprat 2.5/0.5MG 3 ML AMPUL.NEB INHALE ×4 (07:20→18:58)
[2022-03-07] MEDS: rifAXIMin 550 MG TABLET PO ×2 (08:35→22:22)
[2022-03-07] MEDS: Chlorhexidine Gluc Oral Rinse 15 ML MOUTHWASH BUCCAL ×3 (08:35→22:26)
[2022-03-07] MEDS: Metoprolol Tartrate 50 MG TABLET G-TUBE (08:36)
[2022-03-07] MEDS: Ziprasidone Mesylate 20 MG VIAL IM (08:36)
[2022-03-07] MEDS: Insulin Glargine,Hum.rec.anlog 100 UNIT/ML 10 ML VIAL 38 UNIT SUBCUT ×2 (08:36→22:51)
[2022-03-07] MEDS: Nystatin Powder 15 GM BOTTLE 1 APPL TOPICAL (08:37)
[2022-03-07] MEDS: Ampicillin Sodium/Sulbactam Na 3 GM in 0.9 % Sodium Chloride 100 ML IV ×2 (08:37→22:34)
[2022-03-07] MEDS: fentaNYL 50 MCG PATCH.TD72 TRANSDERMA (09:49)
--- NOTE | 2022-03-07 09:51 | P.CDIC_ITS ---
CDI Concurrent Query Documentation Clarification: PHYSICIAN'S DOCUMENTATION REQUEST Date of Query: 03/07/22 0952 Patient Name: Adilson Blackburn Admit Date: 02/19/22 Dear Doctor, A review of the medical record indicates additional documentation may be needed. Please review below and update the documentation accordingly. Clinical Indicators: Risk Factors/Clinical Indicators/Treatments CT Head 02/20/22: IMPRESSION: ? Stable small right tentorial subdural hemorrhage. ? Deep white matter and periventricular hypoattenuation, nonspecific; most likely sequela of chronic microvascular angiopathy ischemia. ? Clarify which of the following accurately represents the acuity of the [insert diagnosis]. Possible options might include: * Acute Subdural Hematoma * Acute on chronic Subdural Hematoma * Subacute Subdural Hematoma * Traumatic Subdural Hematoma * Other ? please specify * Unable to determine Use of terms such as suspected, likely, concern for, or probable (associated with a specific diagnosis that is being evaluated, monitored, or treated as if it exists) are acceptable and can be coded in the inpatient setting, when documented at the time of discharge. Thank you, Stacy Tuttle , RYAN Extension: [phone] Please use your independent medical judgment in providing your response. THIS QUERY IS PART OF THE PERMANENT MEDICAL RECORD Provider Response: Other Other Diagnosis: A subacute subdural hematoma
--- NOTE | 2022-03-07 10:17 | P.CDIC_ITS ---
CDI Concurrent Query Documentation Clarification: PHYSICIAN'S DOCUMENTATION REQUEST Date of Query: 03/07/22 1018 Patient Name: Adilson Blackburn Admit Date: 02/19/22 Dear Doctor, A review of the medical record indicates additional documentation may be needed. Please review below and update the documentation accordingly. Clinical Indicators: Risk Factors/Clinical Indicators/Treatments MD progress note 02/20/22: somnolent but arousable MD progress note 02/21/22: unarousable, obtunded MD progress note 02/24/22: unresponsive MD progress note 02/28/22: SDH has nothing to do with AMS, AMS presumed Hepatic Encephalopathy Based on the above, please further specify, in the Progress Notes, the known or suspected type of the documented encephalopathy: * Hepatic Encephalopathy (reported as hepatic failure and needs further specificity as to acute, subacute, or chronic) * (Acute, Subacute, or Chronic) Hepatic Encephalopathy with coma * (Acute, Subacute, or Chronic) Hepatic Encephalopathy without coma * Due to a specified condition (such as UTI, hyponatremia, CVA, etc.) * Other (please specify) * Unable to determine Use of terms such as suspected, likely, concern for, or probable (associated with a specific diagnosis that is being evaluated, monitored, or treated as if it exists) are acceptable and can be coded in the inpatient setting, when documented at the time of discharge. Thank you, Stacy Tuttle RN Extension: [phone] Please use your independent medical judgment in providing your response. THIS QUERY IS PART OF THE PERMANENT MEDICAL RECORD Provider Response: Hepatic Encephalopathy Other Diagnosis: Acute, subacute on chronic hepatic encephalopathy without coma
--- NOTE | 2022-03-07 10:41 | MHC.CLN ---
F/U PT CONTINUES WITH KAOFEED TUBE PT RECEIVING VITAL AT MAX GOAL RATE 45ML/HR WITH 300ML FREE WATER FLSUHES Q 4 HOURS PROVIDES 1620KCALS (21KCALS/KG BASED ON 77KG CMW), 73G PROTEIN (.95G/KG BASED ON CMW), 2625ML TOTAL WATER FROM FORMULA AND FLUSHES (34ML/KG CMW) NOTED SERUM NA CLIMBING; PT WITH FEVER 03/05 CAN ADJUST FREE WATER NEEDED MONITOR TOLERANCE, RESIDUALS AND LYTES
--- NOTE | 2022-03-07 11:11 | P.PNCC_ITS ---
Subjective Subjective Date of Service: 03/07/22 Interval History: 61-year-old [facility] patient for schizophrenia parkinsonism progressive dementia based on polysubstance abuse including alcohol he has also got cirrhosis with hepatic failure came in with further alteration of mental status and continuing elevation of his ammonia despite chronic use of right fax a min as well as lactulose and also had hypoxic respiratory failure and a series of chest films consistent with aspiration pneumonitis and and currently on Unasyn for this and right now he is awake arousable displaying very significant dystonia and was recently started on Sinemet being taken every 6 hours but a larger dose co nsistent with the 50 mg/200 mg in the morning at 06:00 but if for his schizophrenia they just started him on Zyprexa tone as well My bedside echo shows normal LV function with no primary valve or pericardial disease and I reviewed the CT scans which do look consistent with aspiration but he is also developed progressive hypernatremia and apparently looking at intake and output which was recently negative in ratio along with progressive hypernatremia while on a Lasix drip he also has a normal inferior vena caval diameter with normal inspiratory collapse no evidence of peripheral edema no neck vein distension I do believe at the very least he is euvolemic at this point so I am stopping his Lasix drip at the very least to stop his with loss of water in excess of electrolyte and continuing his IV water replacement at a slightly higher rate because of relative hypovolemia modifying his anti p arkinsonian medication by lowering the dose at 06:00 and adding amantadine to see if that smooth things out with his dystonia and stopping Zyprexa do not switching it to clozapine which if anything might actually reduce some of the dystonic reaction Currently receiving his medications and his food via NG tube and probably needs to have consultation for G-tube for continued feeding before discharge from the hospital Critical Care Time (minutes): 60 Physical Exam Vital Signs: Vital Signs: Last Vital Signs Temp 100.8 F H 03/07/22 11:00 Pulse 59 03/07/22 11:00 Resp 17 03/07/22 11:00 BP 130/60 03/07/22 11:00 Pulse Ox 92 03/07/22 11:00 BMI result Body Mass Index 34.9 Awake and actually responsive without complaint as evidence of bilateral a dystonic motion and tremors which completely yazan when he falls asleep and reoccur instantly upon awakening Skin color without livedo and no acrocyanosis and no edema Blood pressure is 96/38 oxygen saturation 92% on nasal cannula in normal sinus rhythm at a rate of 59 Cardiac exam as described by bedside echo Lungs without respiratory effort and no diaphragmatic effort Abdomen is soft nontender no organomegaly Objective Data Labs CBC & Chem 7: 03/07/22 05:26 03/07/22 05:26 Labs: Laboratory Results - last 24 hr 03/03/22 03/06/22 03/06/22 07:51 11:53 17:53 WBC RBC Hgb Hct MCV MCH MCHC RDW Plt Count MPV Absolute Nucleated RBC Nucleated RBC % (auto) VBG pH VBG pCO2 VBG pO2 VBG HCO3 VBG O2 Saturation VBG Base Excess Sodium Potassium Chloride Carbon Dioxide Anion Gap BUN Creatinine Estim Creat Clear Calc Estimated GFR POC Glucose 278 H 247 H Random Glucose Calcium Phosphorus Magnesium Total Bilirubin AST ALT Alkaline Phosphatase Ammonia Total Protein Albumin Ur Random Urea 546 03/06/22 03/07/22 03/07/22 23:50 05:24 05:26 WBC RBC Hgb Hct MCV MCH MCHC RDW Plt Count MPV Absolute Nucleated RBC Nucleated RBC % (auto) VBG pH 7.35 VBG pCO2 53 VBG pO2 32 VBG HCO3 29 H VBG O2 Saturation 47.0 VBG Base Excess 3.7 Sodium Potassium Chloride Carbon Dioxide Anion Gap BUN Creatinine Estim Creat Clear Calc Estimated GFR POC Glucose 210 H Random Glucose Calcium Phosphorus Magnesium Total Bilirubin AST ALT Alkaline Phosphatase Ammonia 34 Total Protein Albumin Ur Random Urea 03/07/22 03/07/22 03/07/22 05:26 05:26 06:35 WBC 10.9 H RBC 2.64 L Hgb 8.1 L Hct 25.3 L MCV 95.8 MCH 30.7 MCHC 32.0 RDW 17.9 H Plt Count 94 L D MPV 11.4 Absolute Nucleated RBC 0.000 Nucleated RBC % (auto) 0.0 VBG pH VBG pCO2 VBG pO2 VBG HCO3 VBG O2 Saturation VBG Base Excess Sodium 152 H Potassium 3.6 Chloride 113 H Carbon Dioxide 27 Anion Gap 16 BUN 71 H Creatinine 3.19 H Estim Creat Clear Calc 26.0 Estimated GFR 20 POC Glucose 176 H Random Glucose 166 H D Calcium 6.9 L Phosphorus 3.9 Magnesium 2.2 Total Bilirubin 1.4 H AST 54 H ALT < 6 Alkaline Phosphatase 63 Ammonia Total Protein 5.4 L Albumin 2.7 L Ur Random Urea Microbiology Microbiology Results: Microbiology 03/04/22 12:28 Blood - Venous Blood Culture - Preliminary No growth after 48 hours. 03/04/22 12:28 Blood - Venous Blood Culture - Preliminary No growth after 48 hours. 03/01/22 02:27 Blood - Venous Blood Culture - Final No growth after 5 days. 03/01/22 02:27 Blood - Venous Blood Culture - Final No growth after 5 days. 03/04/22 13:31 Urine Catheterized - Ybarra Catheter Urine Culture - Final No growth. 03/01/22 05:25 Sputum - Suctioned Gram Stain - Final 03/01/22 05:25 Sputum - Suctioned Sputum Culture - Final Progress Note: A&P Assessment and plan (1) Hypoalbuminemia: Status: Acute (2) Hypervolemia: Status: Acute (3) Hypernatremia: Status: Acute (4) Metabolic acidosis: Status: Acute (5) ERNST (acute kidney injury): Status: Acute (6) Volume depletion: Status: Acute (7) Diabetes: Status: Acute (8) Subdural hematoma: Status: Acute (9) Hepatic encephalopathy: Status: Acute (10) Alcoholic cirrhosis of liver with ascites: Status: Acute (11) Hyperammonemia: Status: Acute (12) Intracranial hemorrhage, subdural: Status: Acute (13) Parkinson disease: Status: Acute (14) Dementia: Status: Acute (15) Ataxia: Status: Acute (16) Schizophrenia: Status: Acute Plan At this point stable and he has got a healing presumably aspiration mechanism pneumonia has persistent chronic anemia he has got resolving acute on chronic renal insufficiency and right now will get a free water volume replacement and both volume and secondarily blood pressure and renal insufficiency should continue to improve and on manipulating medication related to his dystonic reaction as we treat his parkinsonism including the addition of amantadine today and will watch and see what his response is but because of dystonia I switched him to a medication for schizophrenia which has less dystonic problem which is now clozapine instead of Zyprexa tone Quality Stroke Does the patient have a stroke diagnosis?: No VTE Prior VTE?: No VTE Risk Level:: Medical - moderate - high VTE Device Contraindication: N/A - Device Ordered VTE Drug Contraindication: Treatment Not Indicated
[2022-03-07 11:32] LABS: Glucose, Whole Blood 183 mg/dL (60-115)
[2022-03-07] MEDS: Carbidopa/Levodopa 25/100 TABLET 1 TAB PO ×3 (11:33→18:30)
--- NOTE | 2022-03-07 13:13 | MHC.CM.PN ---
Pt has made significant progress and can be transferred out of ICU and onto a medical floor. Clinical updates sent to Alexandra melissa [place] in anticipation of pt return later this week.
[2022-03-07 18:36] LABS: Glucose, Whole Blood 184 mg/dL (60-115)
[2022-03-07] MEDS: 0.9 % Sodium Chloride Flush 3 ML SYRINGE IVFLUSH ×2 (18:39→23:02)
[2022-03-07 19:55] LABS: Glucose, Whole Blood 157 mg/dL (60-115)
[2022-03-07 20:41] LABS: Complement C3 42 mg/dL (82-185)
[2022-03-07] MEDS: Metoprolol Tartrate 25 MG TABLET G-TUBE (22:21)
[2022-03-08 00:45] LABS: Glucose, Whole Blood 149 mg/dL (60-115)
[2022-03-08] MEDS: Carbidopa/Levodopa 25/100 TABLET 1 TAB PO ×4 (01:40→18:30)
[2022-03-08 05:04] VITALS: BP 148/66; PULSE 71; RESP 19; TEMP 37.3; O2SAT 97
[2022-03-08] MEDS: Levothyroxine Sodium 25 MCG TABLET PO (05:07)
[2022-03-08 05:34] LABS: Glucose, Whole Blood 105 mg/dL (60-115)
[2022-03-08 07:06] VITALS: PULSE 72; RESP 18; O2SAT 92
[2022-03-08] MEDS: Albuterol/Iprat 2.5/0.5MG 3 ML AMPUL.NEB INHALE (07:06)
[2022-03-08 07:50] LABS: Glucose, Whole Blood 106 mg/dL (60-115)
[2022-03-08 08:45] LABS: MANUAL DIFF FLAG NO
[2022-03-08 08:55] LABS: Basophils Percent Auto 0.2 % (0-2); Eosinophils Absolute Auto 0.4 X10*3/uL (0.0-0.4); Eosinophils Percent Auto 4.1 % (0-4); Hematocrit 26.7 % (42.0-52.0); Hemoglobin 8.6 g/dl (14.0-18.0); Imm Gran Abs Auto 0.05 X10*3/uL (0.00-0.03); Imm Gran Pct Auto 0.5 % (0.0-0.4); Lymphocytes Absolute Auto 1.2 X10*3/uL (1.2-4.9); Lymphocytes Percent Auto 11.9 % (20-40); Mean Corpuscular HGB Conc 32.2 g/dl (31.0-36.0); Mean Corpuscular Hemoglobin 30.2 pg (27.0-33.0); Mean Corpuscular Volume 93.7 fL (80.0-98.0); Mean Platelet Volume 11.9 fL (9.4-12.4); Monocytes Absolute Auto 0.5 X10*3/uL (0.1-1.2); Neutrophils Absolute Auto 7.7 x10*3/uL (2.0-8.3); Neutrophils Percent Auto 78.3 % (45-73); Platelet Count 112 X10*3/uL (160-400); Red Blood Count 2.85 X10*6/uL (4.60-5.80); Red Cell Distribution Width 17.4 % (11.0-16.0); White Blood Count 9.8 X10*3/uL (4.8-10.8)
[2022-03-08] MEDS: Acetaminophen Oral Liquid 650 MG/20.3 ML SOLUTION G-TUBE (08:58)
[2022-03-08] MEDS: rifAXIMin 550 MG TABLET PO ×2 (08:58→21:51)
[2022-03-08] MEDS: Metoprolol Tartrate 25 MG TABLET G-TUBE ×2 (08:58→21:51)
[2022-03-08] MEDS: 0.9 % Sodium Chloride Flush 3 ML SYRINGE IVFLUSH ×3 (08:59→21:51)
[2022-03-08 09:00] VITALS: BP 153/50; PULSE 83; RESP 20; TEMP 38.4; O2SAT 94
[2022-03-08] MEDS: Ampicillin Sodium/Sulbactam Na 3 GM in 0.9 % Sodium Chloride 100 ML IV ×2 (09:00→21:50)
[2022-03-08] MEDS: Chlorhexidine Gluc Oral Rinse 15 ML MOUTHWASH BUCCAL ×3 (09:00→21:50)
[2022-03-08] MEDS: Insulin Glargine,Hum.rec.anlog 100 UNIT/ML 10 ML VIAL 38 UNIT SUBCUT ×2 (09:01→21:50)
[2022-03-08 09:18] LABS: Alanine Aminotransferase 9 U/L (0-40); Albumin Level 2.9 g/dL (3.5-5.0); Alkaline Phosphatase 76 U/L (39-117); Anion Gap 16 (12-20); Aspartate Amino Transferase 91 U/L (5-37); Bilirubin Total 1.6 mg/dL (0.0-1.0); Blood Urea Nitrogen 68 mg/dL (9-16); Calcium 7.9 mg/dL (8.4-10.2); Carbon Dioxide 28 mmol/L (22-29); Chloride 116 mmol/L (96-108); Creatinine Clr Calc Pharmacy 26.2; Estimated Glomerular Filt Rate 20; Glucose Fasting 114 mg/dL (60-99); Potassium 4.1 mmol/L (3.3-5.1); Sodium 156 mmol/L (135-145)
[2022-03-08] MEDS: Lactulose 20 GM/30 ML SOLUTION PO (10:18)
[2022-03-08] MEDS: Nystatin Powder 15 GM BOTTLE 1 APPL TOPICAL ×2 (10:18→21:52)
[2022-03-08 11:44] LABS: Glucose, Whole Blood 109 mg/dL (60-115)
--- NOTE | 2022-03-08 12:14 | P.PNIM_ITS ---
Subjective Subjective Date of Service: 03/08/22 Interval History: Alert minimally responsive. Febrile to 101.2 Review of Systems Unable to obtain secondary to somnolence Physical Exam Vital Signs: Vital Signs: Last Vital Signs Temp 101.2 F H 03/08/22 09:00 Pulse 83 03/08/22 09:00 Resp 20 03/08/22 09:00 BP 153/50 H 03/08/22 09:00 Pulse Ox 94 03/08/22 09:00 BMI result Body Mass Index 34.9 Const: Other: Somnolent but arousable HEENT: Other: NG-tube right naris Resp: Other: Rhonchorous throughout Cardio: Other: No S4; positive S1-S2; no S3 murmurs rubs or gallops GI: Other: Soft nontender nondistended with normoactive bowel sounds Neuro: Other: Cranial nerves 2-12 were grossly intact as tested. Motor is 5/5 all extremities sensation is intact. Cognition is at his baseline Extrem: Other: No edema bilaterally Objective Data Active Medications Acetaminophen (Acetaminophen Oral Liquid 650 Mg/20.3 Ml Solution) 650 mg G-TUBE Q6H PRN PRN Reason: temp > or = to 102 Last Admin: 03/08/22 08:58 Dose: 650 mg Documented by: RKIS Carbidopa/Levodopa (Carbidopa/Levodopa 25/100 Tablet) 1 tab PO 0000,1200,1800 [facility] Last Admin: 03/08/22 01:40 Dose: 1 tab Documented by: VIOLETA Carbidopa/Levodopa (Carbidopa/Levodopa 25/100 Tablet) 1 tab PO DAILY@0600 [facility] Last Admin: 03/08/22 05:08 Dose: 1 tab Documented by: VIOLETA Chlorhexidine Gluconate (Chlorhexidine Gluc Oral Rinse 15 Ml Mouthwash) 15 ml BUCCAL TID [facility] Last Admin: 03/08/22 09:00 Dose: 15 ml Documented by: KRIS Fentanyl (Fentanyl 50 Mcg Patch.Td72) 50 mcg TRANSDERMA Q72H [facility] Last Admin: 03/07/22 09:49 Dose: 50 mcg Documented by: SUDHIR Ampicillin Sodium/Sulbactam (Sodium 3 gm/ Sodium Chloride) 100 mls @ 200 mls/hr IV Q12H [facility] Stop: 03/09/22 21:29 Last Infusion: 03/08/22 09:58 Dose: 0 mls/hr Documented by: KRIS Insulin Glargine (Insulin Glargine,Hum.Rec.Anlog 100 Unit/Ml 10 Ml Vial) 38 unit SUBCUT BID [facility] Last Admin: 03/08/22 09:01 Dose: 38 unit Documented by: KRIS Insulin Human Lispro (Insulin Lispro 100 Unit/Ml 3 Ml Vial) 0 unit SUBCUT Q6H [facility]; Protocol Last Admin: 03/08/22 09:00 Dose: Not Given Documented by: KRIS Non-Admin Reason: No Insulin Coverage Lactulose (Lactulose 20 Gm/30 Ml Solution) 20 gm PO Q2D [facility] Last Admin: 03/08/22 10:18 Dose: 20 gm Documented by: KRIS Levothyroxine Sodium (Levothyroxine Sodium 25 Mcg Tablet) 25 mcg PO DAILY@0600 [facility] Last Admin: 03/08/22 05:07 Dose: 25 mcg Documented by: VIOLETA Metoprolol Tartrate (Metoprolol Tartrate 25 Mg Tablet) 25 mg G-TUBE BID [facility]; Protocol Last Admin: 03/08/22 08:58 Dose: 25 mg Documented by: KRIS Nystatin (Nystatin Powder 15 Gm Bottle) 1 appl TOPICAL BID [facility]; Protocol Last Admin: 03/08/22 10:18 Dose: 1 appl Documented by: KRIS Pharmacy Consult (Consult Rx Perform Med Rec) 1 each MISCELLANE ONCE PRN PRN Reason: Consult order Rifaximin (Rifaximin 550 Mg Tablet) 550 mg PO BID [facility] Last Admin: 03/08/22 08:58 Dose: 550 mg Documented by: KRIS Senna (Sennosides 8.6 Mg Tablet) 8.6 mg PO DAILY PRN PRN Reason: Constipation Sodium Chloride (0.9 % Sodium Chloride Flush 3 Ml Syringe) 3 ml IVFLUSH QSHIFT [facility] Last Admin: 03/08/22 08:59 Dose: 3 ml Documented by: KRIS Labs CBC & Chem 7: 03/08/22 08:34 03/08/22 08:34 Labs: Laboratory Results - last 24 hr 03/05/22 03/07/22 03/07/22 16:56 18:32 19:50 MCV MCH MCHC RDW Plt Count MPV Immature Gran % (Auto) Neut % (Auto) Lymph % (Auto) [place] % (Auto) Eos % (Auto) Baso % (Auto) Lymph # (Auto) [place] # (Auto) Eos # (Auto) Baso # (Auto) Abs Immat Gran (auto) Absolute Neuts (auto) Absolute Nucleated RBC Nucleated RBC % (auto) Anion Gap Estim Creat Clear Calc Estimated GFR POC Glucose 184 H 157 H Fasting Glucose Calcium Total Bilirubin AST ALT Alkaline Phosphatase Total Protein Albumin Complement C3 42 L Complement C4 9 L 03/08/22 03/08/22 03/08/22 00:40 05:28 07:28 MCV MCH MCHC RDW Plt Count MPV Immature Gran % (Auto) Neut % (Auto) Lymph % (Auto) [place] % (Auto) Eos % (Auto) Baso % (Auto) Lymph # (Auto) [place] # (Auto) Eos # (Auto) Baso # (Auto) Abs Immat Gran (auto) Absolute Neuts (auto) Absolute Nucleated RBC Nucleated RBC % (auto) Anion Gap Estim Creat Clear Calc Estimated GFR POC Glucose 149 H 105 106 Fasting Glucose Calcium Total Bilirubin AST ALT Alkaline Phosphatase Total Protein Albumin Complement C3 Complement C4 03/08/22 03/08/22 03/08/22 08:34 08:34 11:36 MCV 93.7 MCH 30.2 MCHC 32.2 RDW 17.4 H Plt Count 112 L MPV 11.9 Immature Gran % (Auto) 0.5 H Neut % (Auto) 78.3 H Lymph % (Auto) 11.9 L [place] % (Auto) 5.0 Eos % (Auto) 4.1 H Baso % (Auto) 0.2 Lymph # (Auto) 1.2 [place] # (Auto) 0.5 Eos # (Auto) 0.4 Baso # (Auto) 0.0 Abs Immat Gran (auto) 0.05 H Absolute Neuts (auto) 7.7 Absolute Nucleated RBC 0.000 Nucleated RBC % (auto) 0.0 Anion Gap 16 Estim Creat Clear Calc 26.2 Estimated GFR 20 POC Glucose 109 Fasting Glucose 114 H Calcium 7.9 L D Total Bilirubin 1.6 H AST 91 H ALT 9 Alkaline Phosphatase 76 D Total Protein 6.0 L Albumin 2.9 L Complement C3 Complement C4 Assessment and Plan (1) Multifocal pneumonia: Status: Acute (2) Hyperammonemia: Status: Acute (3) Diabetes: Status: Acute Plan 61-year-old male with known history of dementia Parkinson's disease and schizophrenia who was a long-term resident at [facility] presents with concerns for elevated ammonia level. Staff noted he fell out of bed this morning hitting his head; however no mental status changes was sent for high ammonia. In the emergency room a CT scan of the head was done which demonstrated a subdural hematoma. CT scan was repeated 02/20 without changes. This a.m. patient more obtunded; vomited brown liquid.NGT placed. 1. Multifocal bilateral infiltrates -fever spike to 101 today.... Blood cultures drawn -will add vancomycin to Zosyn and await cultures -titrate O2 to maintain sats greater equal 92% 2. Parkinson's disease -continue all outpatient therapies as ordered 3. Hyperammonemia -continue lactulose -follow serial ammonia levels 4.DMII -continue metformin -add this broke correctional scale -to avoid behavior issues, patient will be fed a regular diet as at [facility] there are no dietary restrictions Full code Boots Patient will require 2 additional midnight going forward to to normalize ammonia levels Quality Stroke Does the patient have a stroke diagnosis?: No VTE Prior VTE?: No VTE Risk Level:: Medical - moderate - high VTE Device Contraindication: N/A - Device Ordered VTE Drug Contraindication: Treatment Not Indicated
[2022-03-08 12:31] VITALS: BP 158/69; PULSE 73; RESP 18; TEMP 37.8; O2SAT 93
[2022-03-08] MEDS: vancomycin HCL 1,250 MG in 0.9 % Sodium Chloride 250 ML 166.67 MG IV (12:40)
[2022-03-08 15:48] LABS: Glucose, Whole Blood 86 mg/dL (60-115)
[2022-03-08 15:52] VITALS: BP 122/60; PULSE 87; RESP 18; TEMP 37.1; O2SAT 91
[2022-03-08 19:40] VITALS: BP 185/76; PULSE 85; RESP 18; TEMP 37; O2SAT 92
[2022-03-08 21:16] LABS: Anti Glomerular Basement Memb <1.0 AI; Myeloperoxidase Antibody <1.0 AI; Proteinase 3 PR3 Antibodies <1.0 AI
[2022-03-08 21:18] LABS: Glucose, Whole Blood 125 mg/dL (60-115)
[2022-03-09 00:04] VITALS: BP 130/66; PULSE 75; RESP 16; TEMP 36.8; O2SAT 96
[2022-03-09 00:18] LABS: Glucose, Whole Blood 144 mg/dL (60-115)
[2022-03-09] MEDS: Carbidopa/Levodopa 25/100 TABLET 1 TAB PO ×4 (00:39→18:14)
[2022-03-09 03:09] VITALS: BP 169/95; PULSE 74; RESP 17; TEMP 37; O2SAT 95
[2022-03-09 05:29] LABS: Glucose, Whole Blood 156 mg/dL (60-115)
[2022-03-09 05:55] LABS: MANUAL DIFF FLAG NO
[2022-03-09 05:59] LABS: Basophils Percent Auto 0.4 % (0-2); Eosinophils Absolute Auto 0.1 X10*3/uL (0.0-0.4); Eosinophils Percent Auto 1.1 % (0-4); Hemoglobin 8.2 g/dl (14.0-18.0); Imm Gran Abs Auto 0.05 X10*3/uL (0.00-0.03); Imm Gran Pct Auto 0.6 % (0.0-0.4); Lymphocytes Absolute Auto 1.1 X10*3/uL (1.2-4.9); Lymphocytes Percent Auto 12.5 % (20-40); Mean Corpuscular HGB Conc 31.5 g/dl (31.0-36.0); Mean Corpuscular Hemoglobin 30.4 pg (27.0-33.0); Mean Corpuscular Volume 96.3 fL (80.0-98.0); Mean Platelet Volume 12.2 fL (9.4-12.4); Monocytes Absolute Auto 0.5 X10*3/uL (0.1-1.2); Monocytes Percent Auto 6.1 % (2-11); Neutrophils Absolute Auto 6.8 x10*3/uL (2.0-8.3); Neutrophils Percent Auto 79.3 % (45-73); Platelet Count 103 X10*3/uL (160-400); Red Cell Distribution Width 17.5 % (11.0-16.0); White Blood Count 8.6 X10*3/uL (4.8-10.8)
[2022-03-09] MEDS: Levothyroxine Sodium 25 MCG TABLET PO (06:13)
[2022-03-09 06:43] LABS: Alanine Aminotransferase 10 U/L (0-40); Albumin Level 2.8 g/dL (3.5-5.0); Alkaline Phosphatase 76 U/L (39-117); Anion Gap 18 (12-20); Aspartate Amino Transferase 76 U/L (5-37); Bilirubin Total 1.6 mg/dL (0.0-1.0); Blood Urea Nitrogen 68 mg/dL (9-16); Calcium 8.4 mg/dL (8.4-10.2); Carbon Dioxide 26 mmol/L (22-29); Chloride 122 mmol/L (96-108); Creatinine Clr Calc Pharmacy 27.9; Estimated Glomerular Filt Rate 21; Glucose Fasting 184 mg/dL (60-99); Potassium 3.7 mmol/L (3.3-5.1); Sodium 163 mmol/L (135-145); Total Protein 5.7 g/dL (6.5-8.0)
[2022-03-09 07:21] VITALS: BP 139/62; PULSE 76; RESP 18; TEMP 37.7; O2SAT 100
--- NOTE | 2022-03-09 08:00 | HE.PHANOTE ---
vancomycin addendum: serum creatinine slight improvement, will check level after 2 doses, keep scheduled dose of 750 mg q 24 hours the same, continue to assess scr and vanco level
[2022-03-09] MEDS: Metoprolol Tartrate 25 MG TABLET G-TUBE ×2 (08:27→20:31)
[2022-03-09] MEDS: Ampicillin Sodium/Sulbactam Na 3 GM in 0.9 % Sodium Chloride 100 ML IV ×2 (08:28→20:30)
[2022-03-09] MEDS: Chlorhexidine Gluc Oral Rinse 15 ML MOUTHWASH BUCCAL ×3 (08:28→20:31)
[2022-03-09] MEDS: Nystatin Powder 15 GM BOTTLE 1 APPL TOPICAL ×2 (08:51→20:32)
[2022-03-09] MEDS: rifAXIMin 550 MG TABLET PO ×2 (08:52→20:31)
[2022-03-09] MEDS: 0.9 % Sodium Chloride Flush 3 ML SYRINGE IVFLUSH ×2 (08:53→20:32)
--- NOTE | 2022-03-09 09:15 | P.PNIM_ITS ---
Subjective Subjective Date of Service: 03/10/22 Interval History: Seen in f/u for prolong hospital stay including ICU stay for obtundation, toxic metabolic encephalopathy, sepsis/PNA interval history: No fever overnight, he's having lots of diarrhea, very figidy today, has NGT in place for tube feedc Review of Systems Unable to obtain secondary to somnolence Physical Exam Vital Signs: Vital Signs: Last Vital Signs Temp 99.9 F 03/09/22 07:21 Pulse 76 03/09/22 07:21 Resp 18 03/09/22 07:21 BP 139/62 03/09/22 07:21 Pulse Ox 100 03/09/22 07:21 BMI result Body Mass Index 34.9 Const: Other: Somnolent but arousable HEENT: Other: NG-tube right naris Resp: Other: Rhonchorous throughout Cardio: Other: No S4; positive S1-S2; no S3 murmurs rubs or gallops GI: Other: Soft nontender nondistended with normoactive bowel sounds Neuro: Other: Cranial nerves 2-12 were grossly intact as tested. Motor is 5/5 all extremities sensation is intact. Cognition is at his baseline Extrem: Other: No edema bilaterally Objective Data Active Medications Acetaminophen (Acetaminophen Oral Liquid 650 Mg/20.3 Ml Solution) 650 mg G-TUBE Q6H PRN PRN Reason: temp > or = to 102 Last Admin: 03/08/22 08:58 Dose: 650 mg Documented by: KRIS Carbidopa/Levodopa (Carbidopa/Levodopa 25/100 Tablet) 1 tab PO 0000,1200,1800 [facility] Last Admin: 03/09/22 00:39 Dose: 1 tab Documented by: JHON Carbidopa/Levodopa (Carbidopa/Levodopa 25/100 Tablet) 1 tab PO DAILY@0600 [facility] Last Admin: 03/09/22 06:13 Dose: 1 tab Documented by: JHON Chlorhexidine Gluconate (Chlorhexidine Gluc Oral Rinse 15 Ml Mouthwash) 15 ml BUCCAL TID [facility] Last Admin: 03/09/22 08:28 Dose: 15 ml Documented by: THAIS Fentanyl (Fentanyl 50 Mcg Patch.Td72) 50 mcg TRANSDERMA Q72H [facility] Last Admin: 03/07/22 09:49 Dose: 50 mcg Documented by: SUDHIR Ampicillin Sodium/Sulbactam (Sodium 3 gm/ Sodium Chloride) 100 mls @ 200 mls/hr IV Q12H [facility] Stop: 03/09/22 21:29 Last Admin: 03/09/22 08:28 Dose: 200 mls/hr Documented by: THAIS Vancomycin HCl 750 mg/ Sodium (Chloride) 265 mls @ 265 mls/hr IV Q24H [facility] Insulin Glargine (Insulin Glargine,Hum.Rec.Anlog 100 Unit/Ml 10 Ml Vial) 38 unit SUBCUT BID [facility] Last Admin: 03/08/22 21:50 Dose: 38 unit Documented by: JHON Insulin Human Lispro (Insulin Lispro 100 Unit/Ml 3 Ml Vial) 0 unit SUBCUT Q6H [facility]; Protocol Last Admin: 03/09/22 06:13 Dose: Not Given Documented by: JHON Non-Admin Reason: No Insulin Coverage Lactulose (Lactulose 20 Gm/30 Ml Solution) 20 gm PO Q2D [facility] Last Admin: 03/08/22 10:18 Dose: 20 gm Documented by: KRIS Levothyroxine Sodium (Levothyroxine Sodium 25 Mcg Tablet) 25 mcg PO DAILY@0600 [facility] Last Admin: 03/09/22 06:13 Dose: 25 mcg Documented by: JHON Metoprolol Tartrate (Metoprolol Tartrate 25 Mg Tablet) 25 mg G-TUBE BID [facility]; Protocol Last Admin: 03/09/22 08:27 Dose: 25 mg Documented by: THAIS Nystatin (Nystatin Powder 15 Gm Bottle) 1 appl TOPICAL BID [facility]; Protocol Last Admin: 03/09/22 08:51 Dose: 1 appl Documented by: THAIS Pharmacy Consult (Consult Rx Perform Med Rec) 1 each MISCELLANE ONCE PRN PRN Reason: Consult order Pharmacy Consult (Consult Rx Vancomycin Dosing) 1 each MISCELLANE DAILY PRN PRN Reason: Consult order Rifaximin (Rifaximin 550 Mg Tablet) 550 mg PO BID [facility] Last Admin: 03/09/22 08:52 Dose: 550 mg Documented by: THAIS Senna (Sennosides 8.6 Mg Tablet) 8.6 mg PO DAILY PRN PRN Reason: Constipation Sodium Chloride (0.9 % Sodium Chloride Flush 3 Ml Syringe) [facility] Last Admin: 03/09/22 08:53 Dose: 3 ml Documented by: THAIS Labs CBC & Chem 7: 03/10/22 05:52 03/10/22 05:52 Labs: Laboratory Results - last 24 hr 03/05/22 03/08/22 03/08/22 16:56 08:34 11:36 MCV MCH MCHC RDW Plt Count MPV Immature Gran % (Auto) Neut % (Auto) Lymph % (Auto) [place] % (Auto) Eos % (Auto) Baso % (Auto) Lymph # (Auto) [place] # (Auto) Eos # (Auto) Baso # (Auto) Abs Immat Gran (auto) Absolute Neuts (auto) Absolute Nucleated RBC Nucleated RBC % (auto) Anion Gap 16 Estim Creat Clear Calc 26.2 Estimated GFR 20 POC Glucose 109 Fasting Glucose 114 H Calcium 7.9 L D Total Bilirubin 1.6 H AST 91 H ALT 9 Alkaline Phosphatase 76 D Total Protein 6.0 L Albumin 2.9 L Proteinase 3 (PR3) Ab <1.0 Myeloperoxidase Ab <1.0 Glomerular Base Memb Ab <1.0 03/08/22 03/08/22 03/09/22 15:44 19:48 00:13 MCV MCH MCHC RDW Plt Count MPV Immature Gran % (Auto) Neut % (Auto) Lymph % (Auto) [place] % (Auto) Eos % (Auto) Baso % (Auto) Lymph # (Auto) [place] # (Auto) Eos # (Auto) Baso # (Auto) Abs Immat Gran (auto) Absolute Neuts (auto) Absolute Nucleated RBC Nucleated RBC % (auto) Anion Gap Estim Creat Clear Calc Estimated GFR POC Glucose 86 125 H 144 H Fasting Glucose Calcium Total Bilirubin AST ALT Alkaline Phosphatase Total Protein Albumin Proteinase 3 (PR3) Ab Myeloperoxidase Ab Glomerular Base Memb Ab 03/09/22 03/09/22 03/09/22 05:25 05:29 05:29 MCV 96.3 MCH 30.4 MCHC 31.5 RDW 17.5 H Plt Count 103 L MPV 12.2 Immature Gran % (Auto) 0.6 H Neut % (Auto) 79.3 H Lymph % (Auto) 12.5 L [place] % (Auto) 6.1 Eos % (Auto) 1.1 Baso % (Auto) 0.4 Lymph # (Auto) 1.1 L [place] # (Auto) 0.5 Eos # (Auto) 0.1 Baso # (Auto) 0.0 Abs Immat Gran (auto) 0.05 H Absolute Neuts (auto) 6.8 Absolute Nucleated RBC 0.000 Nucleated RBC % (auto) 0.0 Anion Gap 18 Estim Creat Clear Calc 27.9 Estimated GFR 21 POC Glucose 156 H Fasting Glucose 184 H D Calcium 8.4 D Total Bilirubin 1.6 H AST 76 H ALT 10 Alkaline Phosphatase 76 Total Protein 5.7 L Albumin 2.8 L Proteinase 3 (PR3) Ab Myeloperoxidase Ab Glomerular Base Memb Ab Assessment and Plan (1) Multifocal pneumonia: Status: Acute (2) Hyperammonemia: Status: Acute (3) Diabetes: Status: Acute Plan 61-year-old male with known history of dementia Parkinson's disease and schizophrenia who was a long-term resident at [facility] admitted on 02/19 for high ammonia level, falling out of bed and hitting his head but at that time no AMS. Staff noted he fell out of bed this morning hitting his head; however no mental status changes was sent for high ammonia. CT head in ED on 02/19 showed a subdural hematoma, repeat the next day unchanged. On 02/25 he was obtunded and was transfered to ICU where he made gradual improvement, ICU stay was complicated by pneumonia and has been treated with IV Abx, He was transfered out of ICU on 03/07.. Apparently he was fairly functional prior to admission. Last 24 -48 hours, he has been having high grade temps Neuro: Acute toxic metabolic encephalopathy d/t hyperammonemia--has been treated with lactulose and has signficantly improved from early days but not quite at his baseline. last ammonia level 34 on 03/07 -continue Lactulose and Rifaximin Parkinson dieasee-- Continue Sinemet Cardiac: No apparent cardiac issues, was on lasix drip in ICU later disconti nued, likely from fluid OV from IVF. Echo on 03/01 ?The visually estimated ejection fraction is between 60-65%. Respiratory: No underlying pulmonary issues--but was in acute respiratory fail ure due to encephalopathy ID--Multifactorial Pneumonia--likely aspriation realted, no Sepsis. -Presently on Unassyn and Vanco, alll cultures have been negative. -titrate O2 to maintain sats greater equal 92% GI: Diarrhea, likely from lactulose, however check C dif, continue tube feed Renal: ERNST on CKD, Creatine above baseline baseline around 2 and presently 3 Endocrine: diabetes, Continue Insulin, Not Metformin d/t renal failure FEN/nutrition: Hypernatremia sodium of 163 today, due to free water deficit. Increase water in Tube feed and add IV water, Nephro consult Speech and swallow eval and if doesn't do well might need a PEG Skin: Routine skin care to prevent Decub ulcer Full CODE Inapteient: acute issues including hypernatremia that need frequent electrolytes, and djustment of fluid (water), multifocal Pneumonia with fever that needs IV Abx highs riskf ro mortality and morbidity time spentt 60 minutes Full code Boots Quality Stroke Does the patient have a stroke diagnosis?: No VTE Prior VTE?: No VTE Risk Level:: Medical - moderate - high VTE Device Contraindication: N/A - Device Ordered VTE Drug Contraindication: Treatment Not Indicated
[2022-03-09 09:17] LABS: Haptoglobin 60 mg/dL (43-212)
[2022-03-09] MEDS: Insulin Glargine,Hum.rec.anlog 100 UNIT/ML 10 ML VIAL 38 UNIT SUBCUT ×2 (09:53→20:31)
[2022-03-09] MEDS: Dextrose 5 % 1,000 ML 100 ML IVCONT ×2 (10:13→20:30)
[2022-03-09 11:00] VITALS: BP 158/65; PULSE 70; RESP 20; TEMP 37; O2SAT 94
[2022-03-09 11:30] LABS: Glucose, Whole Blood 208 mg/dL (60-115)
[2022-03-09] MEDS: Insulin Lispro 100 UNIT/ML 3 ML VIAL SUBCUT ×2 (11:54→18:25)
[2022-03-09] MEDS: Acetaminophen Oral Liquid 650 MG/20.3 ML SOLUTION G-TUBE (11:54)
--- NOTE | 2022-03-09 12:02 | MHC.CM.PN ---
This typewriter assembler confirmed with Tere Montero regarding the guardians current ability to consent for PEG w/in the guardianship decree. She verified the guardian DOES have the ability to consent. Secure message sent to Sonya Villanueva and Dr. Man.
[2022-03-09] MEDS: vancomycin HCL 750 MG in 0.9 % Sodium Chloride 250 ML 265 MG IV (13:46)
--- NOTE | 2022-03-09 14:06 | MHC.CLN ---
F/U PT CONTINUES WITH KAOFEED TUBE PT RECEIVING VITAL AT MAX GOAL RATE 45ML/HR WITH 300ML FREE WATER FLUSHES Q 4 HOURS PROVIDES 1620KCALS (21KCALS/KG BASED ON 77KG CMW), 73G PROTEIN (.95G/KG BASED ON CMW), 2625ML TOTAL WATER FROM FORMULA AND FLUSHES (34ML/KG CMW) NOTED SERUM NA 163 AND DIARRHEA RECOMMEND INCREASING FORMULA VITAL 1.5 AT MAX GOAL RATE 50ML/HR WITH 30ML PROSOURCE BID AND 300ML FREE WATER FLSUHES Q 4 HRS TO PROVIDE 1920KCALS (25KCALS/KG BASED ON CMW), 111G PROTEIN (1.4G/KG), 2717ML TOTAL WATER FROM FORMULA AND FLUSHES (35ML/KG) PT RECEIVING MAX AMOUNT WATER FLUSHES; NOTED IN ADDITION, 1L D5W CURRENTLY RUNNING MONITOR TOLERANCE, RESIDUALS AND LYTES
--- NOTE | 2022-03-09 15:10 | MHC.CM.PN ---
Addendum entered by Sonya Villanueva 03/09/22 16:19: SHARRI RASHEED TOOK OVER FOR FORMER ME DEPT OF FOOT PIECE ASSEMBLER COMMISSIONER, JEWELS. ALTHOUGH BEVERLEY IS NOT LISTED GUARDIAN, HER CURRENT POSITION COMMISSIONER ALLOWS HER TO PERFORM THE ROLE OF GUARDIAN IN THE [facility].(PER SAFETY AND HEALTH CONSULTANT ELLI PATTON) Addendum entered by Sonya Villanueva 03/09/22 15:13: DOCUMENTS INDICATING JEWELS WILLEM PERM. GUARDIAN ARE ALSO ON FILE IN EXPANSE. Original Note: PER [employer] COMPUTATIONAL CHEMIST, JOSE MIGUEL ([phone]), RACHANARima WILLEM PERMANENT GUARDIAN FOR PATIENT. HE DOES HAVE SHARRI RASHEED ([phone]) LISTED A 'RESPONSIBLE PERSON ONLY. CALL TO BEVERLEY TO INQUIRE ABOUT AN UPDATED GUARDIANSHIP, BUT SHE IS NOT AT HER DESK. MESSAGE LEFT FOR A CALL BACK TO THIS ASSOCIATE PROFESSOR OF FORESTRY.
[2022-03-09 15:32] LABS: Sodium 158 mmol/L (135-145)
[2022-03-09 15:39] VITALS: BP 155/53; PULSE 93; RESP 18; TEMP 36.9; O2SAT 96
--- NOTE | 2022-03-09 16:10 | MHC.SL.SWA ---
Speech Pathologist Impression: Oropharyngeal dysphagia Risk of Aspiration Due to: Medically Fragile Neurological Condition History of Pneumonia Reduced Cognition Dysphasia Diet Status: Upgrade Liquid Consistency and Strategies for Safe Swallow: Liquid Intake Recommendation: Thin Liquid Intake Strategies: Small Sips No Straws Solid Food Consistency: Dietary Recommendations: Pureed (NDD1) Additional Modifications to Solid Foods: Recommend PUREED (NDD1) solids and THIN liquids by spoon or cup (NO STRAWS), pills CRUSHED in PUREE. Aspiration precautions. Patient requires total 1:1 assistance feeding. MD, RN, RD notified of recommended upgrade. Oral Medication Intake: Crushed with Puree Please contact the pharmacy regarding appropriate crushable or liquid drug formulations that are available whenever modified delivery is recommended. Compensatory Strategies and Precautions to be Taken for Safe Swallow: Sitting Upright (90 deg) No Straw Liquids from Cup Liquids from Spoon Small Bites and Sips Alternate Liquids/Solids Rate of Ingestion Change Oral Check Supervision While Eating and Drinking for Safe Swallow: Total Assistance (1:1) Foods to Avoid: Tough difficult to chew solids, mixed consistencies Swallowing Recommended Treatments: Compens. Strategy Educat. Recommendation for Speech: Inpatient Speech Therapy Comment: RELAY MECHANIC will continue to follow. Frequency/Duration: M-F Date Range for Service Req: Timeline to reassess: Torch Cutter Clinican/Clinical Fellow: No Supervisory Statement: I have reviewed and agree with the student/clinical fellow's documentation: N/A Speech Language Pathologist: Jonelle Peterson M.A., [facility]
--- NOTE | 2022-03-09 18:06 | PM.PNNEP ---
Subjective Subjective Date of Service: 03/12/22 Interval history: Events noted Na remains high On D5 W Physical Exam Vital Signs: Vital Signs: Last Vital Signs Temp 98.4 F 03/09/22 15:39 Pulse 93 03/09/22 15:39 Resp 18 03/09/22 15:39 BP 155/53 H 03/09/22 15:39 Pulse Ox 96 03/09/22 15:39 BMI result Body Mass Index 34.9 Const: General: no acute distress, awake, acute distress and confusion Orientation/consciousness: confusion HEENT: Head: Yes normal to inspection, Yes normocephalic and Yes atraumatic Neck: Neck: Yes no JVD Resp: Effort & Inspection: normal respiratory effort, labored and tachypneic Auscultation: crackles and diminished lung sounds Cardio: Jugular venous distension: no JVD Rate: regular rate and tachycardic Rhythm: regular rhythm Heart sounds: S1 normal heart sound present and S2 normal heart sound present Peripheral pulses: Peripheral pulses 2+ throughout GI: Inspection: Yes distended Auscultation: normal bowel sounds : Other: josé catheter in place Neuro: General: confusion Extrem: Other: sacral edema noted. General: Yes edema and Yes pedal edema Right upper extremity: edema Left upper extremity: edema Right lower extremity: edema Left lower extremity: edema Objective Data Labs CBC & Chem 7: 03/11/22 05:39 03/12/22 05:53 Labs: Laboratory Results - last 24 hr 03/05/22 03/05/22 03/08/22 16:56 16:56 19:48 WBC RBC Hgb Hct MCV MCH MCHC RDW Plt Count MPV Immature Gran % (Auto) Neut % (Auto) Lymph % (Auto) [place] % (Auto) Eos % (Auto) Baso % (Auto) Lymph # (Auto) [place] # (Auto) Eos # (Auto) Baso # (Auto) Abs Immat Gran (auto) Absolute Neuts (auto) Absolute Nucleated RBC Nucleated RBC % (auto) Haptoglobin 60 Sodium Potassium Chloride Carbon Dioxide Anion Gap BUN Creatinine Estim Creat Clear Calc Estimated GFR POC Glucose 125 H Fasting Glucose Calcium Total Bilirubin AST ALT Alkaline Phosphatase Total Protein Albumin Proteinase 3 (PR3) Ab <1.0 Myeloperoxidase Ab <1.0 Glomerular Base Memb Ab <1.0 03/09/22 03/09/22 03/09/22 00:13 05:25 05:29 WBC 8.6 RBC 2.70 L Hgb 8.2 L Hct 26.0 L MCV 96.3 MCH 30.4 MCHC 31.5 RDW 17.5 H Plt Count 103 L MPV 12.2 Immature Gran % (Auto) 0.6 H Neut % (Auto) 79.3 H Lymph % (Auto) 12.5 L [place] % (Auto) 6.1 Eos % (Auto) 1.1 Baso % (Auto) 0.4 Lymph # (Auto) 1.1 L [place] # (Auto) 0.5 Eos # (Auto) 0.1 Baso # (Auto) 0.0 Abs Immat Gran (auto) 0.05 H Absolute Neuts (auto) 6.8 Absolute Nucleated RBC 0.000 Nucleated RBC % (auto) 0.0 Haptoglobin Sodium Potassium Chloride Carbon Dioxide Anion Gap BUN Creatinine Estim Creat Clear Calc Estimated GFR POC Glucose 144 H 156 H Fasting Glucose Calcium Total Bilirubin AST ALT Alkaline Phosphatase Total Protein Albumin Proteinase 3 (PR3) Ab Myeloperoxidase Ab Glomerular Base Memb Ab 03/09/22 03/09/22 03/09/22 05:29 11:26 14:58 WBC RBC Hgb Hct MCV MCH MCHC RDW Plt Count MPV Immature Gran % (Auto) Neut % (Auto) Lymph % (Auto) [place] % (Auto) Eos % (Auto) Baso % (Auto) Lymph # (Auto) [place] # (Auto) Eos # (Auto) Baso # (Auto) Abs Immat Gran (auto) Absolute Neuts (auto) Absolute Nucleated RBC Nucleated RBC % (auto) Haptoglobin Sodium 163 H* 158 H Potassium 3.7 Chloride 122 H Carbon Dioxide 26 Anion Gap 18 BUN 68 H Creatinine 2.97 H Estim Creat Clear Calc 27.9 Estimated GFR 21 POC Glucose 208 H Fasting Glucose 184 H D Calcium 8.4 D Total Bilirubin 1.6 H AST 76 H ALT 10 Alkaline Phosphatase 76 Total Protein 5.7 L Albumin 2.8 L Proteinase 3 (PR3) Ab Myeloperoxidase Ab Glomerular Base Memb Ab Microbiology Microbiology Results: Microbiology 03/04/22 12:28 Blood - Venous Blood Culture - Final No growth after 5 days. 03/04/22 12:28 Blood - Venous Blood Culture - Final No growth after 5 days. 03/08/22 10:37 Blood - Venous Blood Culture - Preliminary No growth after 24 hours. 03/08/22 10:38 Blood - Venous Blood Culture - Preliminary No growth after 24 hours. 03/01/22 02:27 Blood - Venous Blood Culture - Final No growth after 5 days. 03/01/22 02:27 Blood - Venous Blood Culture - Final No growth after 5 days. 03/04/22 13:31 Urine Catheterized - José Catheter Urine Culture - Final No growth. 03/01/22 05:25 Sputum - Suctioned Gram Stain - Final 03/01/22 05:25 Sputum - Suctioned Sputum Culture - Final Procedures Date of Service Date of Service: 03/09/22 Assessment & Plan Assessment and plan (1) Hypervolemia: Status: Acute (2) Hypernatremia: Status: Acute (3) ERNST (acute kidney injury): Status: Acute Plan ERNST, non-oliguric: #ERNST, non-oliguric. -ERNST in setting of hepatic encephalopathy. -Suspect his worsening ERNST is from hypervolemia with noted underlying liver failure and cardiomegaly. -Colloid product(s) will help defend IV space. s/p prbc transfusion -avoidance of nephrotoxic agents. Hold lisinopril. Hold metformin. Avoidance of nsaids, IV contrast, and renal dosing of abx. -imaging noted. No evidence of hydronephrosis. José in place. #) Hypernatremia Will reassess the need for D5W in 24 hr may need a thiazide diuretic Avoid loop diuretic . Time Spent With Patient Time: Total time spent is greater than 50% in coordination of care (as documented) at patient's floor/unit and/or counseling patient: Progress Note: Quality Stroke Does the patient have a stroke diagnosis?: No
[2022-03-09 18:21] LABS: Glucose, Whole Blood 252 mg/dL (60-115)
[2022-03-09 20:00] VITALS: BP 155/63; PULSE 75; RESP 18; TEMP 37.1; O2SAT 95
[2022-03-09 20:14] LABS: Glucose, Whole Blood 267 mg/dL (60-115)
[2022-03-10] VITALS (7 sets, daily range): BP systolic 131–179; BP diastolic 58–86; PULSE 58–74; RESP 18–23; TEMP 36.3–36.8; O2SAT 92–98
[2022-03-10 00:22] LABS: Glucose, Whole Blood 279 mg/dL (60-115)
[2022-03-10] MEDS: Carbidopa/Levodopa 25/100 TABLET 1 TAB PO ×4 (00:57→17:34)
[2022-03-10] MEDS: Insulin Lispro 100 UNIT/ML 3 ML VIAL SUBCUT ×5 (00:57→21:16)
[2022-03-10] MEDS: diphenhydrAMINE HCL 50 MG/ML VIAL 25 MG IVPUSH (03:28)
[2022-03-10] MEDS: Levothyroxine Sodium 25 MCG TABLET PO (05:58)
[2022-03-10] MEDS: Dextrose 5 % 1,000 ML 100 ML IVCONT ×2 (05:59→08:26)
[2022-03-10 06:00] LABS: Glucose, Whole Blood 223 mg/dL (60-115)
[2022-03-10 06:32] LABS: MANUAL DIFF FLAG NO
[2022-03-10 06:36] LABS: Basophils Percent Auto 0.3 % (0-2); Eosinophils Absolute Auto 0.3 X10*3/uL (0.0-0.4); Eosinophils Percent Auto 4.6 % (0-4); Hematocrit 24.9 % (42.0-52.0); Hemoglobin 7.8 g/dl (14.0-18.0); Imm Gran Abs Auto 0.02 X10*3/uL (0.00-0.03); Imm Gran Pct Auto 0.3 % (0.0-0.4); Lymphocytes Absolute Auto 0.9 X10*3/uL (1.2-4.9); Lymphocytes Percent Auto 14.3 % (20-40); Mean Corpuscular HGB Conc 31.3 g/dl (31.0-36.0); Mean Corpuscular Hemoglobin 29.8 pg (27.0-33.0); Mean Platelet Volume 12.4 fL (9.4-12.4); Monocytes Absolute Auto 0.4 X10*3/uL (0.1-1.2); Monocytes Percent Auto 5.7 % (2-11); Neutrophils Absolute Auto 4.9 x10*3/uL (2.0-8.3); Neutrophils Percent Auto 74.8 % (45-73); Red Blood Count 2.62 X10*6/uL (4.60-5.80); Red Cell Distribution Width 17.1 % (11.0-16.0); White Blood Count 6.5 X10*3/uL (4.8-10.8)
[2022-03-10 06:37] LABS: Platelet Count 83 X10*3/uL (160-400)
[2022-03-10 07:18] LABS: Glucose, Whole Blood 241 mg/dL (60-115)
[2022-03-10 07:18] LABS: Alanine Aminotransferase 8 U/L (0-40); Albumin Level 2.5 g/dL (3.5-5.0); Alkaline Phosphatase 71 U/L (39-117); Anion Gap 15 (12-20); Aspartate Amino Transferase 55 U/L (5-37); Bilirubin Total 1.3 mg/dL (0.0-1.0); Blood Urea Nitrogen 66 mg/dL (9-16); Calcium 8.2 mg/dL (8.4-10.2); Carbon Dioxide 27 mmol/L (22-29); Chloride 121 mmol/L (96-108); Estimated Glomerular Filt Rate 25; Glucose Fasting 257 mg/dL (60-99); Potassium 3.6 mmol/L (3.3-5.1); Sodium 159 mmol/L (135-145); Total Protein 5.4 g/dL (6.5-8.0)
[2022-03-10] MEDS: Chlorhexidine Gluc Oral Rinse 15 ML MOUTHWASH BUCCAL ×2 (08:26→21:16)
[2022-03-10] MEDS: Metoprolol Tartrate 25 MG TABLET G-TUBE ×2 (08:26→21:16)
[2022-03-10] MEDS: rifAXIMin 550 MG TABLET PO ×2 (08:26→21:16)
[2022-03-10] MEDS: Insulin Glargine,Hum.rec.anlog 100 UNIT/ML 10 ML VIAL 38 UNIT SUBCUT ×2 (08:27→21:16)
[2022-03-10] MEDS: Nystatin Powder 15 GM BOTTLE 1 APPL TOPICAL ×2 (08:27→21:17)
[2022-03-10] MEDS: fentaNYL 50 MCG PATCH.TD72 TRANSDERMA (08:37)
[2022-03-10] MEDS: Lactulose 20 GM/30 ML SOLUTION PO (08:37)
--- NOTE | 2022-03-10 09:05 | P.PNIM_ITS ---
Subjective Subjective Date of Service: 03/10/22 Interval History: Seen in f/u for prolong hospital stay including ICU stay for obtundation, toxic metabolic encephalopathy, sepsis/PNA interval history: He is doing better, NGT removed, answer simple answers, sodium is down, will be starting diet this morning Review of Systems no fever, no cough Physical Exam Vital Signs: Vital Signs: Last Vital Signs Temp 98.2 F 03/10/22 07:07 Pulse 69 03/10/22 07:07 Resp 20 03/10/22 07:07 BP 179/86 H 03/10/22 07:07 Pulse Ox 94 03/10/22 07:07 BMI result Body Mass Index 34.9 Const: Other: General: AO X 1, no acute distress Resp: CTA bilateral CVS: S1,S2,RRR GI: +BS, NT, no distention Skin: No rash Neuro: motor grossly intact, parkinsonian tremors Psych: appropriate affect Objective Data Active Medications Acetaminophen (Acetaminophen Oral Liquid 650 Mg/20.3 Ml Solution) 650 mg G-TUBE Q6H PRN PRN Reason: temp > or = to 102 Last Admin: 03/09/22 11:54 Dose: 650 mg Documented by: THAIS Carbidopa/Levodopa (Carbidopa/Levodopa 25/100 Tablet) 1 tab PO 0000,1200,1800 [facility] Last Admin: 03/10/22 00:57 Dose: 1 tab Documented by: JHON Carbidopa/Levodopa (Carbidopa/Levodopa 25/100 Tablet) 1 tab PO DAILY@0600 [facility] Last Admin: 03/10/22 05:58 Dose: 1 tab Documented by: JHON Chlorhexidine Gluconate (Chlorhexidine Gluc Oral Rinse 15 Ml Mouthwash) 15 ml BUCCAL TID [facility] Last Admin: 03/10/22 08:26 Dose: 15 ml Documented by: TONI Fentanyl (Fentanyl 50 Mcg Patch.Td72) 50 mcg TRANSDERMA Q72H [facility] Last Admin: 03/10/22 08:37 Dose: 50 mcg Documented by: TONI Vancomycin HCl 750 mg/ Sodium (Chloride) 265 mls @ 265 mls/hr IV Q24H [facility] Last Infusion: 03/09/22 14:58 Dose: 265 mls/hr Documented by: THAIS Dextrose (D5w) 1,000 mls @ 100 mls/hr IVCONT .Q10H [facility] Last Admin: 03/10/22 08:26 Dose: 100 mls/hr Documented by: TONI Insulin Glargine (Insulin Glargine,Hum.Rec.Anlog 100 Unit/Ml 10 Ml Vial) 38 unit SUBCUT BID [facility] Last Admin: 03/10/22 08:27 Dose: 38 unit Documented by: TONI Insulin Human Lispro (Insulin Lispro 100 Unit/Ml 3 Ml Vial) 0 unit SUBCUT Q6H [facility]; Protocol Last Admin: 03/10/22 05:58 Dose: 4 unit Documented by: JHON Lactulose (Lactulose 20 Gm/30 Ml Solution) 20 gm PO Q2D [facility] Last Admin: 03/10/22 08:37 Dose: 20 gm Documented by: TONI Levothyroxine Sodium (Levothyroxine Sodium 25 Mcg Tablet) 25 mcg PO DAILY@0600 [facility] Last Admin: 03/10/22 05:58 Dose: 25 mcg Documented by: JHON Metoprolol Tartrate (Metoprolol Tartrate 25 Mg Tablet) 25 mg G-TUBE BID [facility]; Protocol Last Admin: 03/10/22 08:26 Dose: 25 mg Documented by: TONI Nystatin (Nystatin Powder 15 Gm Bottle) 1 appl TOPICAL BID [facility]; Protocol Last Admin: 03/10/22 08:27 Dose: 1 appl Documented by: TONI Pharmacy Consult (Consult Rx Perform Med Rec) 1 each MISCELLANE ONCE PRN PRN Reason: Consult order Pharmacy Consult (Consult Rx Vancomycin Dosing) 1 each MISCELLANE DAILY PRN PRN Reason: Consult order Rifaximin (Rifaximin 550 Mg Tablet) 550 mg PO BID [facility] Last Admin: 03/10/22 08:26 Dose: 550 mg Documented by: TONI Senna (Sennosides 8.6 Mg Tablet) 8.6 mg PO DAILY PRN PRN Reason: Constipation Sodium Chloride (0.9 % Sodium Chloride Flush 3 Ml Syringe) 3 ml IVFLUSH QSHIFT [facility] Last Admin: 03/10/22 07:54 Dose: Not Given Documented by: TONI Non-Admin Reason: IV Running Labs CBC & Chem 7: 03/10/22 05:52 03/10/22 05:52 Labs: Laboratory Results - last 24 hr 04/23/22 04/27/22 04/27/22 16:56 11:26 18:16 MCV MCH MCHC RDW Plt Count MPV Immature Gran % (Auto) Neut % (Auto) Lymph % (Auto) [place] % (Auto) Eos % (Auto) Baso % (Auto) Lymph # (Auto) [place] # (Auto) Eos # (Auto) Baso # (Auto) Abs Immat Gran (auto) Absolute Neuts (auto) Absolute Nucleated RBC Nucleated RBC % (auto) Haptoglobin 60 Anion Gap Estim Creat Clear Calc Estimated GFR POC Glucose 208 H 252 H Random Glucose Fasting Glucose Calcium Total Bilirubin AST ALT Alkaline Phosphatase Total Protein Albumin 03/09/22 03/10/22 03/10/22 20:10 00:16 05:52 MCV 95.0 MCH 29.8 MCHC 31.3 RDW 17.1 H Plt Count 83 L MPV 12.4 Immature Gran % (Auto) 0.3 Neut % (Auto) 74.8 H Lymph % (Auto) 14.3 L [place] % (Auto) 5.7 Eos % (Auto) 4.6 H Baso % (Auto) 0.3 Lymph # (Auto) 0.9 L [place] # (Auto) 0.4 Eos # (Auto) 0.3 Baso # (Auto) 0.0 Abs Immat Gran (auto) 0.02 Absolute Neuts (auto) 4.9 Absolute Nucleated RBC 0.000 Nucleated RBC % (auto) 0.0 Haptoglobin Anion Gap Estim Creat Clear Calc Estimated GFR POC Glucose 267 H 279 H Random Glucose Fasting Glucose Calcium Total Bilirubin AST ALT Alkaline Phosphatase Total Protein Albumin 03/10/22 03/10/22 03/10/22 05:52 05:55 07:12 MCV MCH MCHC RDW Plt Count MPV Immature Gran % (Auto) Neut % (Auto) Lymph % (Auto) [place] % (Auto) Eos % (Auto) Baso % (Auto) Lymph # (Auto) [place] # (Auto) Eos # (Auto) Baso # (Auto) Abs Immat Gran (auto) Absolute Neuts (auto) Absolute Nucleated RBC Nucleated RBC % (auto) Haptoglobin Anion Gap 15 Estim Creat Clear Calc 32.0 Estimated GFR 25 POC Glucose 223 H 241 H Random Glucose TNP Fasting Glucose 257 H D Calcium 8.2 L Total Bilirubin 1.3 H AST 55 H ALT 8 Alkaline Phosphatase 71 Total Protein 5.4 L Albumin 2.5 L Microbiology Microbiology Results: Microbiology 03/04/22 12:28 Blood Culture - Final Blood - Venous No growth after 5 days. 03/04/22 12:28 Blood Culture - Final Blood - Venous No growth after 5 days. 03/08/22 10:37 Blood Culture - Preliminary Blood - Venous No growth after 24 hours. 03/08/22 10:38 Blood Culture - Preliminary Blood - Venous No growth after 24 hours. Assessment and Plan (1) Multifocal pneumonia: Status: Acute (2) Hyperammonemia: Status: Acute (3) Diabetes: Status: Acute Plan 61-year-old male with known history of dementia Parkinson's disease and schizo phrenia who was a long-term resident at [facility] admitted on 02/19 for high ammonia level, falling out of bed and hitting his head but at that time no AMS. Staff noted he fell out of bed this morning hitting his head; however no mental status changes was sent for high ammonia. CT head in ED on 02/19 showed a subdural hematoma, repeat the next day unchanged. On 02/25 he was obtunded and was transfered to ICU where he made gradual improvement, ICU stay was complicated by pneumonia and has been treated with IV Abx, He was transfered out of ICU on 03/07.. Apparently he was fairly functional prior to admission. Last 24 -48 hours, he has been having high grade temps Neuro: Acute toxic metabolic encephalopathy d/t hyperammonemia--has been treated with lactulose and has signficantly improved from early days but not quite at his baseline. last ammonia level 34 on 03/07 -continue Lactulose and Rifaximin Parkinson dieasee-- Continue Sinemet Cardiac: No apparent cardiac issues, was on lasix drip in ICU later discontinued, likely from fluid OV from IVF. Echo on 03/01 ?The visually estimated ejection fraction is between 60-65%. Respiratory: No underlying pulmonary issues--but was in acute respiratory failure due to encephalopathy ID--Multifactorial Pneumonia--likely aspriation realted, no Sepsis. -Presently on Unassyn and Vanco, alll cultures have been negative.--DC Vanco and change to oral Augmentin today -titrate O2 to maintain sats greater equal 92% GI: Diarrhea, likely from lactulose, however check C dif, continue tube feed Renal: ERNST on CKD, Creatine above baseline baseline around 2 and presently 3 Endocrine: diabetes, Continue Insulin, Not Metformin d/t renal failure FEN/nutrition: Hypernatremia sodium of 159 today, due to free water deficit. Increase D5, and encourage oral water and repeat sodium later today and tomorrow. Nephorlogy to assist in management. Speech upgraded to Pure diet, thin Liquid Skin: Routine skin care to prevent Decub ulcer Full CODE Inapteient: acute issues including hypernatremia that need frequent electrolytes, and djustment of fluid (water), multifocal Pneumonia with fever that needs IV Abx highs riskf ro mortality and morbidity Anticipate DC in 1 to 2 days Full code Boots Quality Stroke Does the patient have a stroke diagnosis?: No VTE Prior VTE?: No VTE Risk Level:: Medical - moderate - high VTE Device Contraindication: N/A - Device Ordered VTE Drug Contraindication: Treatment Not Indicated
--- NOTE | 2022-03-10 09:50 | PM.PNNEP ---
Subjective Subjective Date of Service: 03/12/22 Interval history: Events noted Unable to give ROs Physical Exam Vital Signs: Vital Signs: Last Vital Signs Temp 98.2 F 03/10/22 07:07 Pulse 69 03/10/22 07:07 Resp 20 03/10/22 07:07 BP 179/86 H 03/10/22 07:07 Pulse Ox 94 03/10/22 07:07 BMI result Body Mass Index 34.9 Const: General: no acute distress, awake, acute distress and confusion Orientation/consciousness: confusion HEENT: Head: Yes normal to inspection, Yes normocephalic and Yes atraumatic Neck: Neck: Yes no JVD Resp: Effort & Inspection: normal respiratory effort, labored and tachypneic Auscultation: crackles and diminished lung sounds Cardio: Jugular venous distension: no JVD Rate: regular rate and tachycardic Rhythm: regular rhythm Heart sounds: S1 normal heart sound present and S2 normal heart sound present Peripheral pulses: Peripheral pulses 2+ throughout GI: Inspection: Yes distended Auscultation: normal bowel sounds : Other: josé catheter in place Neuro: General: confusion Extrem: Other: sacral edema noted. General: Yes edema and Yes pedal edema Right upper extremity: edema Left upper extremity: edema Right lower extremity: edema Left lower extremity: edema Objective Data Labs CBC & Chem 7: 03/11/22 05:39 03/12/22 05:53 Labs: Laboratory Results - last 24 hr 03/09/22 03/09/22 03/09/22 11:26 14:58 18:16 WBC RBC Hgb Hct MCV MCH MCHC RDW Plt Count MPV Immature Gran % (Auto) Neut % (Auto) Lymph % (Auto) [place] % (Auto) Eos % (Auto) Baso % (Auto) Lymph # (Auto) [place] # (Auto) Eos # (Auto) Baso # (Auto) Abs Immat Gran (auto) Absolute Neuts (auto) Absolute Nucleated RBC Nucleated RBC % (auto) Sodium 158 H Potassium Chloride Carbon Dioxide Anion Gap BUN Creatinine Estim Creat Clear Calc Estimated GFR POC Glucose 208 H 252 H Random Glucose Fasting Glucose Calcium Total Bilirubin AST ALT Alkaline Phosphatase Total Protein Albumin 03/09/22 03/10/22 03/10/22 20:10 00:16 05:52 WBC 6.5 RBC 2.62 L Hgb 7.8 L Hct 24.9 L MCV 95.0 MCH 29.8 MCHC 31.3 RDW 17.1 H Plt Count 83 L MPV 12.4 Immature Gran % (Auto) 0.3 Neut % (Auto) 74.8 H Lymph % (Auto) 14.3 L [place] % (Auto) 5.7 Eos % (Auto) 4.6 H Baso % (Auto) 0.3 Lymph # (Auto) 0.9 L [place] # (Auto) 0.4 Eos # (Auto) 0.3 Baso # (Auto) 0.0 Abs Immat Gran (auto) 0.02 Absolute Neuts (auto) 4.9 Absolute Nucleated RBC 0.000 Nucleated RBC % (auto) 0.0 Sodium Potassium Chloride Carbon Dioxide Anion Gap BUN Creatinine Estim Creat Clear Calc Estimated GFR POC Glucose 267 H 279 H Random Glucose Fasting Glucose Calcium Total Bilirubin AST ALT Alkaline Phosphatase Total Protein Albumin 03/10/22 03/10/22 03/10/22 05:52 05:55 07:12 WBC RBC Hgb Hct MCV MCH MCHC RDW Plt Count MPV Immature Gran % (Auto) Neut % (Auto) Lymph % (Auto) [place] % (Auto) Eos % (Auto) Baso % (Auto) Lymph # (Auto) [place] # (Auto) Eos # (Auto) Baso # (Auto) Abs Immat Gran (auto) Absolute Neuts (auto) Absolute Nucleated RBC Nucleated RBC % (auto) Sodium 159 H Potassium 3.6 Chloride 121 H Carbon Dioxide 27 Anion Gap 15 BUN 66 H Creatinine 2.59 H Estim Creat Clear Calc 32.0 Estimated GFR 25 POC Glucose 223 H 241 H Random Glucose TNP Fasting Glucose 257 H D Calcium 8.2 L Total Bilirubin 1.3 H AST 55 H ALT 8 Alkaline Phosphatase 71 Total Protein 5.4 L Albumin 2.5 L Microbiology Microbiology Results: Microbiology 03/04/22 12:28 Blood - Venous Blood Culture - Final No growth after 5 days. 03/04/22 12:28 Blood - Venous Blood Culture - Final No growth after 5 days. 03/08/22 10:37 Blood - Venous Blood Culture - Preliminary No growth after 24 hours. 03/08/22 10:38 Blood - Venous Blood Culture - Preliminary No growth after 24 hours. 03/01/22 02:27 Blood - Venous Blood Culture - Final No growth after 5 days. 03/01/22 02:27 Blood - Venous Blood Culture - Final No growth after 5 days. 03/04/22 13:31 Urine Catheterized - José Catheter Urine Culture - Final No growth. 03/01/22 05:25 Sputum - Suctioned Gram Stain - Final 03/01/22 05:25 Sputum - Suctioned Sputum Culture - Final Procedures Date of Service Date of Service: 03/10/22 Assessment & Plan Assessment and plan (1) Hypernatremia: Status: Acute (2) ERNST (acute kidney injury): Status: Acute Plan ERNST, non-oliguric: #ERNST, non-oliguric. -ERNST in setting of hepatic encephalopathy. -Suspect his worsening ERNST Clinically appears dry -avoidance of nephrotoxic agents. Hold lisinopril. Hold metformin. Avoidance of nsaids, IV contrast, and renal dosing of abx. -imaging noted. No evidence of hydronephrosis. José in place. GFR remains low C3/C4 are low Given his general condition/dementia- not a candidate for kidney biopsy #) Hypernatremia Continue D5W No need for diuretics today . Time Spent With Patient Time: Total time spent is greater than 50% in coordination of care (as documented) at patient's floor/unit and/or counseling patient: Progress Note: Quality Stroke Does the patient have a stroke diagnosis?: No
--- NOTE | 2022-03-10 10:39 | MHC.CLN ---
F/U PT NGT REMOVED DIET RX: PUREED PER CLAIMS CONFIGURATION ANALYST RECOMMENDATION RECOMMEND ADDING ENSURE TID TO PROVIDE 1050KCALS, 60G PROTEIN TO PROMOTE WOUND HEALING NOTED D5W CONTINUES; MONITOR SERUM NA MONITOR BS, PO INTAKE AND SUPP ACCEPTANCE
[2022-03-10 11:44] LABS: Glucose, Whole Blood 300 mg/dL (60-115)
[2022-03-10 13:01] LABS: Vancomycin Random 10.7 mcg/mL (15-20)
--- NOTE | 2022-03-10 13:13 | HE.PHANOTE ---
Vancomycin Dosing Addendum Level 10.7, continue with current regimen. Cr improved slightly and may need to increase dose tomorrow. Trough scheduled for 03/11/22 @1200.
[2022-03-10] MEDS: vancomycin HCL 750 MG in 0.9 % Sodium Chloride 250 ML 265 MG IV (13:59)
--- NOTE | 2022-03-10 14:33 | PC.NURSE ---
Pt swallowed a small amount chlorhexadine mouthwash after verbal instruction to swish and spit at 0800. Medication held at 1500. NG feeding tube discontinued and removed at 0740 per MD order. Pt started regular diet pureed with thin liquids no straws.
--- NOTE | 2022-03-10 14:35 | MHC.CM.PN ---
PATIENT LIVES ALONE. UPON DISCHARGE, HE WILL BE STAYING AT HIS PARENT'S HOME IN [place]. HE HAS NO HCP ON FILE AND IS WILLING TO ASSIGN HIS PARENTS HCP AGENTS. SURGICAL PA ENTERED ROOM TO MEET WITH PATIENT. HE IS AWARE THAT CASE MANAGEMENT CAN RETURN AT ANOTHER TIME FOR HCP COMPLETION AND CONTINUATION OF ASSESSMENT. IMM 03/10 IN CHART
[2022-03-10 15:30] LABS: Glucose, Whole Blood 245 mg/dL (60-115)
[2022-03-10] MEDS: Dextrose 5 % 1,000 ML 150 ML IVCONT ×2 (15:40→22:00)
[2022-03-10 20:37] LABS: Glucose, Whole Blood 296 mg/dL (60-115)
[2022-03-11] MEDS: Carbidopa/Levodopa 25/100 TABLET 1 TAB PO ×5 (01:11→23:14)
[2022-03-11 03:18] VITALS: BP 133/48; PULSE 70; RESP 20; TEMP 36.4; O2SAT 95
[2022-03-11] MEDS: Dextrose 5 % 1,000 ML 150 ML IVCONT ×2 (05:55→17:05)
[2022-03-11] MEDS: Levothyroxine Sodium 25 MCG TABLET PO (05:56)
[2022-03-11 06:04] LABS: MANUAL DIFF FLAG NO
[2022-03-11 06:11] LABS: Basophils Percent Auto 0.3 % (0-2); Eosinophils Absolute Auto 0.4 X10*3/uL (0.0-0.4); Eosinophils Percent Auto 5.9 % (0-4); Hematocrit 23.7 % (42.0-52.0); Hemoglobin 7.5 g/dl (14.0-18.0); Imm Gran Abs Auto 0.03 X10*3/uL (0.00-0.03); Imm Gran Pct Auto 0.4 % (0.0-0.4); Lymphocytes Absolute Auto 1.2 X10*3/uL (1.2-4.9); Lymphocytes Percent Auto 16.8 % (20-40); Mean Corpuscular HGB Conc 31.6 g/dl (31.0-36.0); Mean Corpuscular Hemoglobin 30.4 pg (27.0-33.0); Mean Platelet Volume 12.4 fL (9.4-12.4); Monocytes Absolute Auto 0.4 X10*3/uL (0.1-1.2); Monocytes Percent Auto 5.1 % (2-11); Neutrophils Absolute Auto 5.2 x10*3/uL (2.0-8.3); Neutrophils Percent Auto 71.5 % (45-73); Platelet Count 105 X10*3/uL (160-400); Red Blood Count 2.47 X10*6/uL (4.60-5.80); Red Cell Distribution Width 16.7 % (11.0-16.0); White Blood Count 7.3 X10*3/uL (4.8-10.8)
[2022-03-11 06:51] LABS: Alanine Aminotransferase 9 U/L (0-40); Albumin Level 2.6 g/dL (3.5-5.0); Alkaline Phosphatase 72 U/L (39-117); Anion Gap 10 (12-20); Aspartate Amino Transferase 66 U/L (5-37); Bilirubin Total 1.5 mg/dL (0.0-1.0); Blood Urea Nitrogen 60 mg/dL (9-16); Calcium 8.1 mg/dL (8.4-10.2); Carbon Dioxide 29 mmol/L (22-29); Chloride 119 mmol/L (96-108); Estimated Glomerular Filt Rate 28; Glucose Fasting 107 mg/dL (60-99); Potassium 3.5 mmol/L (3.3-5.1); Sodium 154 mmol/L (135-145); Total Protein 5.5 g/dL (6.5-8.0)
--- NOTE | 2022-03-11 07:58 | HO.PM.IMPN ---
Subjective Subjective Date of Service: 03/11/22 Interval History: Seen in f/u for prolong hospital stay including ICU stay for obtundation, toxic metabolic encephalopathy, sepsis/PNA interval history: Patient is calm no new issues, no agiation. Sodium going down Review of Systems no fever, no cough Physical Exam Vital Signs: Vital Signs: Last Vital Signs Temp 97.5 F 03/11/22 03:18 Pulse 70 03/11/22 03:18 Resp 20 03/11/22 03:18 BP 133/48 L 03/11/22 03:18 Pulse Ox 95 03/11/22 03:18 BMI result Body Mass Index 34.9 Const: Other: General: AO X 1, no acute distress Resp: CTA bilateral CVS: S1,S2,RRR GI: +BS, NT, no distention Skin: No rash Neuro: motor grossly intact, parkinsonian tremors Psych: appropriate affect Objective Data Active Medications Acetaminophen (Acetaminophen Oral Liquid 650 Mg/20.3 Ml Solution) 650 mg G-TUBE Q6H PRN PRN Reason: temp > or = to 102 Last Admin: 03/09/22 11:54 Dose: 650 mg Documented by: THAIS Carbidopa/Levodopa (Carbidopa/Levodopa 25/100 Tablet) 1 tab PO 0000,1200,1800 [facility] Last Admin: 03/11/22 01:11 Dose: 1 tab Documented by: TRA Carbidopa/Levodopa (Carbidopa/Levodopa 25/100 Tablet) 1 tab PO DAILY@0600 [facility] Last Admin: 03/11/22 05:56 Dose: 1 tab Documented by: TRA Chlorhexidine Gluconate (Chlorhexidine Gluc Oral Rinse 15 Ml Mouthwash) 15 ml BUCCAL TID [facility] Last Admin: 03/10/22 21:16 Dose: 15 ml Documented by: TRA Fentanyl (Fentanyl 50 Mcg Patch.Td72) 50 mcg TRANSDERMA Q72H [facility] Last Admin: 03/10/22 08:37 Dose: 50 mcg Documented by: TONI Vancomycin HCl 750 mg/ Sodium (Chloride) 265 mls @ 265 mls/hr IV Q24H [facility] Last Infusion: 03/10/22 15:25 Dose: 0 mls/hr Documented by: TONI Dextrose (D5w) 1,000 mls @ 150 mls/hr IVCONT .Q6H40M [facility] Last Admin: 03/11/22 05:55 Dose: 150 mls/hr Documented by: TRA Insulin Glargine (Insulin Glargine,Hum.Rec.Anlog 100 Unit/Ml 10 Ml Vial) 38 unit SUBCUT BID [facility] Last Admin: 03/10/22 21:16 Dose: 38 unit Documented by: TRA Insulin Human Lispro (Insulin Lispro 100 Unit/Ml 3 Ml Vial) 0 unit SUBCUT QIDACHS [facility]; Protocol Last Admin: 03/10/22 21:16 Dose: 6 unit Documented by: TRA Lactulose (Lactulose 20 Gm/30 Ml Solution) 20 gm PO Q2D [facility] Last Admin: 03/10/22 08:37 Dose: 20 gm Documented by: TONI Levothyroxine Sodium (Levothyroxine Sodium 25 Mcg Tablet) 25 mcg PO DAILY@0600 [facility] Last Admin: 03/11/22 05:56 Dose: 25 mcg Documented by: TRA Metoprolol Tartrate (Metoprolol Tartrate 25 Mg Tablet) 25 mg G-TUBE BID [facility]; Protocol Last Admin: 03/10/22 21:16 Dose: 25 mg Documented by: TRA Nystatin (Nystatin Powder 15 Gm Bottle) 1 appl TOPICAL BID [facility]; Protocol Last Admin: 03/10/22 21:17 Dose: 1 appl Documented by: TRA Pharmacy Consult (Consult Rx Perform Med Rec) 1 each MISCELLANE ONCE PRN PRN Reason: Consult order Pharmacy Consult (Consult Rx Vancomycin Dosing) 1 each MISCELLANE DAILY PRN PRN Reason: Consult order Rifaximin (Rifaximin 550 Mg Tablet) 550 mg PO BID [facility] Last Admin: 03/10/22 21:16 Dose: 550 mg Documented by: TRA Senna (Sennosides 8.6 Mg Tablet) 8.6 mg PO DAILY PRN PRN Reason: Constipation Sodium Chloride (0.9 % Sodium Chloride Flush 3 Ml Syringe) 3 ml IVFLUSH QSHIFT [facility] Last Admin: 03/11/22 00:53 Dose: Not Given Documented by: TRA Non-Admin Reason: IV Running Labs CBC & Chem 7: 03/11/22 05:39 03/11/22 05:39 Labs: Laboratory Results - last 24 hr 03/10/22 03/10/22 03/10/22 11:37 12:12 15:26 MCV MCH MCHC RDW Plt Count MPV Immature Gran % (Auto) Neut % (Auto) Lymph % (Auto) [place] % (Auto) Eos % (Auto) Baso % (Auto) Lymph # (Auto) [place] # (Auto) Eos # (Auto) Baso # (Auto) Abs Immat Gran (auto) Absolute Neuts (auto) Absolute Nucleated RBC Nucleated RBC % (auto) Anion Gap Estim Creat Clear Calc Estimated GFR POC Glucose 300 H 245 H Random Glucose Fasting Glucose Calcium Total Bilirubin AST ALT Alkaline Phosphatase Total Protein Albumin Random Vancomycin 10.7 L 03/10/22 03/11/22 03/11/22 20:33 05:39 05:39 MCV 96.0 MCH 30.4 MCHC 31.6 RDW 16.7 H Plt Count 105 L D MPV 12.4 Immature Gran % (Auto) 0.4 Neut % (Auto) 71.5 Lymph % (Auto) 16.8 L [place] % (Auto) 5.1 Eos % (Auto) 5.9 H Baso % (Auto) 0.3 Lymph # (Auto) 1.2 [place] # (Auto) 0.4 Eos # (Auto) 0.4 Baso # (Auto) 0.0 Abs Immat Gran (auto) 0.03 Absolute Neuts (auto) 5.2 Absolute Nucleated RBC 0.000 Nucleated RBC % (auto) 0.0 Anion Gap 10 L Estim Creat Clear Calc 35.0 Estimated GFR 28 POC Glucose 296 H Random Glucose TNP Fasting Glucose 107 H D Calcium 8.1 L Total Bilirubin 1.5 H AST 66 H ALT 9 Alkaline Phosphatase 72 Total Protein 5.5 L Albumin 2.6 L Random Vancomycin Microbiology Microbiology Results: Microbiology 03/08/22 10:37 Blood Culture - Preliminary Blood - Venous No growth after 48 hours. 03/08/22 10:38 Blood Culture - Preliminary Blood - Venous No growth after 48 hours. Assessment and Plan (1) Multifocal pneumonia: Status: Acute (2) Hyperammonemia: Status: Acute (3) Diabetes: Status: Acute Plan 61-year-old male with known history of dementia Parkinson's disease and schizophrenia who was a long-term resident at [facility] admitted on 02/19 for high ammonia level, falling out of bed and hitting his head but at that time no AMS. Staff noted he fell out of bed this morning hitting his head; however no mental status changes was sent for high ammonia. CT head in ED on 02/19 showed a subdural hematoma, repeat the next day unchanged. On 02/25 he was obtunded and was transfered to ICU where he made gradual improvement, ICU stay was complicated by pneumonia and has been treated with IV Abx, He was transfered out of ICU on 03/07.. Apparently he was fairly functional prior to admission. Last 24 -48 hours, he has been having high grade temps Neuro: Acute toxic metabolic encephalopathy d/t hyperammonemia--has been treated with lactulose and has signficantly improved from early days but not quite at his baseline. last ammonia level 34 on 03/07 -continue Lactulose and Rifaximin Parkinson dieasee-- Continue Sinemet Cardiac: No apparent cardiac issues, was on lasix drip in ICU later discontinued, likely from fluid OV from IVF. Echo on 03/01 ?The visually estimated ejection fraction is between 60-65%. Respiratory: No underlying pulmonary issues--but was in acute respiratory failure due to encephalopathy ID--Multifactorial Pneumonia--likely aspriation realted, no Sepsis. -Presently on Unassyn and Vanco, alll cultures have been negative.--DC Vanco and change to oral Augmentin today -titrate O2 to maintain sats greater equal 92% GI: Diarrhea, likely from lactulose, however check C dif, continue tube feed Renal: ERNST on CKD, Creatine above baseline baseline around 2 and presently 3 Endocrine: diabetes, Continue Insulin, Not Metformin d/t renal failure FEN/nutrition: Hypernatremia sodium of 155 today, due to free water deficit. Increase D5 t 200, and encourage oral water and repeat sodium later today and tomorrow. Nephorlogy assisting in management. Speech upgraded to Pure diet, thin Liquid Skin: Routine skin care to prevent Decub ulcer Full CODE Inapteient: acute issues including hypernatremia that need frequent electrolytes, and djustment of fluid (water), multifocal Pneumonia with fever that needs IV Abx highs riskf ro mortality and morbidity Anticipate DC in 1 to 2 days Full code Boots Quality Stroke Does the patient have a stroke diagnosis?: No VTE Prior VTE?: No VTE Risk Level:: Medical - moderate - high VTE Device Contraindication: N/A - Device Ordered VTE Drug Contraindication: Treatment Not Indicated
[2022-03-11 07:59] LABS: Glucose, Whole Blood 113 mg/dL (60-115)
[2022-03-11 08:00] VITALS: BP 126/73; PULSE 59; RESP 16; TEMP 36.1; O2SAT 92
[2022-03-11] MEDS: Chlorhexidine Gluc Oral Rinse 15 ML MOUTHWASH BUCCAL ×3 (09:48→20:21)
[2022-03-11] MEDS: rifAXIMin 550 MG TABLET PO ×2 (09:48→20:22)
[2022-03-11] MEDS: 0.9 % Sodium Chloride Flush 3 ML SYRINGE IVFLUSH ×2 (09:49→17:05)
[2022-03-11] MEDS: Insulin Glargine,Hum.rec.anlog 100 UNIT/ML 10 ML VIAL 38 UNIT SUBCUT ×2 (09:49→20:21)
[2022-03-11] MEDS: Metoprolol Tartrate 25 MG TABLET G-TUBE ×2 (09:49→20:22)
[2022-03-11] MEDS: Nystatin Powder 15 GM BOTTLE 1 APPL TOPICAL ×2 (10:01→20:22)
[2022-03-11 11:09] VITALS: BP 160/92; PULSE 54; RESP 16; TEMP 36.7; O2SAT 95
[2022-03-11 11:54] LABS: Glucose, Whole Blood 243 mg/dL (60-115)
[2022-03-11] MEDS: Insulin Lispro 100 UNIT/ML 3 ML VIAL SUBCUT ×2 (12:09→17:04)
--- NOTE | 2022-03-11 12:15 | PM.PNNEP ---
Subjective Subjective Date of Service: 03/12/22 Interval history: Events noted Physical Exam Vital Signs: Vital Signs: Last Vital Signs Temp 98.1 F 03/11/22 11:09 Pulse 54 03/11/22 11:09 Resp 16 03/11/22 11:09 BP 160/92 H 03/11/22 11:09 Pulse Ox 95 03/11/22 11:09 BMI result Body Mass Index 34.9 Const: Other: General: AO X 1, no acute distress Resp: CTA bilateral CVS: S1,S2,RRR GI: +BS, NT, no distention Skin: No rash Neuro: motor grossly intact, parkinsonian tremors Psych: appropriate affect General: no acute distress, awake, acute distress and confusion Orientation/consciousness: confusion HEENT: Head: Yes normal to inspection, Yes normocephalic and Yes atraumatic Neck: Neck: Yes no JVD Resp: Effort & Inspection: normal respiratory effort, labored and tachypneic Auscultation: crackles and diminished lung sounds Cardio: Jugular venous distension: no JVD Rate: regular rate and tachycardic Rhythm: regular rhythm Heart sounds: S1 normal heart sound present and S2 normal heart sound present Peripheral pulses: Peripheral pulses 2+ throughout GI: Inspection: Yes distended Auscultation: normal bowel sounds : Other: josé catheter in place Neuro: General: confusion Extrem: Other: sacral edema noted. General: Yes edema and Yes pedal edema Right upper extremity: edema Left upper extremity: edema Right lower extremity: edema Left lower extremity: edema Objective Data Labs CBC & Chem 7: 03/11/22 05:39 03/12/22 05:53 Labs: Laboratory Results - last 24 hr 03/10/22 03/10/22 03/10/22 12:12 15:26 20:33 WBC RBC Hgb Hct MCV MCH MCHC RDW Plt Count MPV Immature Gran % (Auto) Neut % (Auto) Lymph % (Auto) [place] % (Auto) Eos % (Auto) Baso % (Auto) Lymph # (Auto) [place] # (Auto) Eos # (Auto) Baso # (Auto) Abs Immat Gran (auto) Absolute Neuts (auto) Absolute Nucleated RBC Nucleated RBC % (auto) Sodium Potassium Chloride Carbon Dioxide Anion Gap BUN Creatinine Estim Creat Clear Calc Estimated GFR POC Glucose 245 H 296 H Random Glucose Fasting Glucose Calcium Total Bilirubin AST ALT Alkaline Phosphatase Total Protein Albumin Random Vancomycin 10.7 L 03/11/22 03/11/22 03/11/22 05:39 05:39 07:54 WBC 7.3 RBC 2.47 L Hgb 7.5 L Hct 23.7 L MCV 96.0 MCH 30.4 MCHC 31.6 RDW 16.7 H Plt Count 105 L D MPV 12.4 Immature Gran % (Auto) 0.4 Neut % (Auto) 71.5 Lymph % (Auto) 16.8 L [place] % (Auto) 5.1 Eos % (Auto) 5.9 H Baso % (Auto) 0.3 Lymph # (Auto) 1.2 [place] # (Auto) 0.4 Eos # (Auto) 0.4 Baso # (Auto) 0.0 Abs Immat Gran (auto) 0.03 Absolute Neuts (auto) 5.2 Absolute Nucleated RBC 0.000 Nucleated RBC % (auto) 0.0 Sodium 154 H Potassium 3.5 Chloride 119 H Carbon Dioxide 29 Anion Gap 10 L BUN 60 H Creatinine 2.37 H Estim Creat Clear Calc 35.0 Estimated GFR 28 POC Glucose 113 Random Glucose TNP Fasting Glucose 107 H D Calcium 8.1 L Total Bilirubin 1.5 H AST 66 H ALT 9 Alkaline Phosphatase 72 Total Protein 5.5 L Albumin 2.6 L Random Vancomycin 03/11/22 11:11 WBC RBC Hgb Hct MCV MCH MCHC RDW Plt Count MPV Immature Gran % (Auto) Neut % (Auto) Lymph % (Auto) [place] % (Auto) Eos % (Auto) Baso % (Auto) Lymph # (Auto) [place] # (Auto) Eos # (Auto) Baso # (Auto) Abs Immat Gran (auto) Absolute Neuts (auto) Absolute Nucleated RBC Nucleated RBC % (auto) Sodium Potassium Chloride Carbon Dioxide Anion Gap BUN Creatinine Estim Creat Clear Calc Estimated GFR POC Glucose 243 H Random Glucose Fasting Glucose Calcium Total Bilirubin AST ALT Alkaline Phosphatase Total Protein Albumin Random Vancomycin Microbiology Microbiology Results: Microbiology 03/08/22 10:37 Blood - Venous Blood Culture - Preliminary No growth after 48 hours. 03/08/22 10:38 Blood - Venous Blood Culture - Preliminary No growth after 48 hours. 03/04/22 12:28 Blood - Venous Blood Culture - Final No growth after 5 days. 03/04/22 12:28 Blood - Venous Blood Culture - Final No growth after 5 days. 03/01/22 02:27 Blood - Venous Blood Culture - Final No growth after 5 days. 03/01/22 02:27 Blood - Venous Blood Culture - Final No growth after 5 days. 03/04/22 13:31 Urine Catheterized - José Catheter Urine Culture - Final No growth. 03/01/22 05:25 Sputum - Suctioned Gram Stain - Final 03/01/22 05:25 Sputum - Suctioned Sputum Culture - Final Procedures Date of Service Date of Service: 03/11/22 Assessment & Plan Assessment and plan (1) Multifocal pneumonia: Status: Acute (2) Hyperammonemia: Status: Acute (3) Diabetes: Status: Acute (4) Hypernatremia: Status: Acute (5) ERNST (acute kidney injury): Status: Acute Plan ERNST on CKD Keep I > O No need for diuretics Hypernatremia- Keep on Hypotonic fluids Time Spent With Patient Time: Total time spent is greater than 50% in coordination of care (as documented) at patient's floor/unit and/or counseling patient: Progress Note: Quality Stroke Does the patient have a stroke diagnosis?: No
--- NOTE | 2022-03-11 12:52 | HE.PHANOTE ---
Addendum entered by Priscilla Hinson [facility] 03/11/22 13:01: CHANGED TO OBESE MODEL BMI - 35.0. CHANGED DOSE BACK TO 750 MG Q24H FOR PREDICTED AUC OF 496 Original Note: Vancomycin Dosing Addendum Random level 13, but predicted AUC subtherapeutic for second day. Increasing dose to 1000 mg q24h for predicted auc of 519. Will continue to monitor levels daily. Cr decreasing
--- NOTE | 2022-03-11 12:54 | MHC.SL.SWA ---
Speech Pathologist Impression: Oropharyngeal dysphagia Risk of Aspiration Due to: Medically Fragile Neurological Condition History of Pneumonia Reduced Cognition Dysphasia Diet Status: No Change Liquid Consistency and Strategies for Safe Swallow: Liquid Intake Recommendation: [place] Thick Liquid Intake Strategies: Small Sips No Straws Solid Food Consistency: Dietary Recommendations: Pureed (NDD1) Additional Modifications to Solid Foods: Recommend PUREED (NDD1) solids and NECTAR THICK liquids by spoon or cup (NO STRAWS), pills CRUSHED in PUREE. Aspiration precautions. Patient requires total 1:1 assistance feeding. Oral Medication Intake: Crushed with Puree Please contact the pharmacy regarding appropriate crushable or liquid drug formulations that are available whenever modified delivery is recommended. Compensatory Strategies and Precautions to be Taken for Safe Swallow: Sitting Upright (90 deg) No Straw Liquids from Cup Liquids from Spoon Small Bites and Sips Alternate Liquids/Solids Rate of Ingestion Change Oral Check Supervision While Eating and Drinking for Safe Swallow: Total Assistance (1:1) Foods to Avoid: Tough difficult to chew solids, mixed consistencies Swallowing Recommended Treatments: Compens. Strategy Educat. Recommendation for Speech: Inpatient Speech Therapy Comment: SCHEDULING ADMINISTRATOR will continue to follow. Frequency/Duration: M-F Date Range for Service Req: Timeline to reassess: Plaster Maker Clinican/Clinical Fellow: No Supervisory Statement: I have reviewed and agree with the student/clinical fellow's documentation: N/A Speech Language Pathologist: Jonelle Peterson M.A., [facility]-SCHEDULING ADMINISTRATOR
[2022-03-11] MEDS: vancomycin HCL 750 MG in 0.9 % Sodium Chloride 250 ML 265 MG IV (13:20)
--- NOTE | 2022-03-11 14:29 | MHC.CLN ---
F/U PO ITNAKE 100% X 4 MEALS DIET RX: PUREED PER IT SUPPORT SPECIALIST RECOMMENDATION PT RECEIVING ENSURE TID TO PROVIDE 1050KCALS, 60G PROTEIN TO PROMOTE WOUND HEALING NOTED D5W CONTINUES; CONTINUE TO MONITOR SERUM NA MONITOR BS, PO INTAKE AND SUPP ACCEPTANCE
[2022-03-11 16:00] VITALS: BP 133/63; PULSE 60; RESP 17; TEMP 36.6; O2SAT 95
[2022-03-11 19:41] LABS: Glucose, Whole Blood 83 mg/dL (60-115)
[2022-03-11 19:56] VITALS: BP 143/65; PULSE 69; RESP 17; TEMP 36.8; O2SAT 94
[2022-03-11 23:38] VITALS: BP 140/61; PULSE 60; RESP 17; TEMP 37.2; O2SAT 95
[2022-03-12] MEDS: Dextrose 5 % 1,000 ML 150 ML IVCONT ×4 (00:46→17:39)
[2022-03-12 03:34] VITALS: BP 136/77; PULSE 59; RESP 19; TEMP 36.7; O2SAT 94
[2022-03-12] MEDS: Levothyroxine Sodium 25 MCG TABLET PO (05:41)
[2022-03-12] MEDS: Carbidopa/Levodopa 25/100 TABLET 1 TAB PO ×4 (05:41→23:38)
[2022-03-12 06:24] LABS: Anion Gap 12 (12-20); Blood Urea Nitrogen 56 mg/dL (9-16); Carbon Dioxide 27 mmol/L (22-29); Chloride 115 mmol/L (96-108); Creatinine Clr Calc Pharmacy 37.8; Estimated Glomerular Filt Rate 31; Glucose Random 86 mg/dL (60-115); Potassium 3.9 mmol/L (3.3-5.1); Sodium 150 mmol/L (135-145)
[2022-03-12 07:46] VITALS: BP 154/60; PULSE 91; RESP 15; TEMP 36.1; O2SAT 92
[2022-03-12 08:04] LABS: Glucose, Whole Blood 80 mg/dL (60-115)
--- NOTE | 2022-03-12 09:09 | HO.PM.IMPN ---
Subjective Subjective Date of Service: 03/12/22 Interval History: Seen in f/u for prolong hospital stay including ICU stay for obtundation, toxic metabolic encephalopathy, sepsis/PNA interval history: Patient is calm no new issues, no agiation sodium level unchanged from prior Review of Systems no fever, no cough Physical Exam Vital Signs: Vital Signs: Last Vital Signs Temp 97 F 03/12/22 07:46 Pulse 91 03/12/22 07:46 Resp 15 03/12/22 07:46 BP 154/60 H 03/12/22 07:46 Pulse Ox 92 03/12/22 07:46 BMI result Body Mass Index 34.9 Const: Other: General: AO X 2, no acute distress Resp: CTA bilateral CVS: S1,S2,RRR GI: +BS, NT, no distention Skin: No rash Neuro: motor grossly intact, parkinsonian tremors Psych: appropriate affect Objective Data Active Medications Acetaminophen (Acetaminophen Oral Liquid 650 Mg/20.3 Ml Solution) 650 mg G-TUBE Q6H PRN PRN Reason: temp > or = to 102 Last Admin: 03/09/22 11:54 Dose: 650 mg Documented by: THAIS Carbidopa/Levodopa (Carbidopa/Levodopa 25/100 Tablet) 1 tab PO 0000,1200,1800 [facility] Last Admin: 03/11/22 23:14 Dose: 1 tab Documented by: MICHAEL Carbidopa/Levodopa (Carbidopa/Levodopa 25/100 Tablet) 1 tab PO DAILY@0600 [facility] Last Admin: 03/12/22 05:41 Dose: 1 tab Documented by: MICHAEL Chlorhexidine Gluconate (Chlorhexidine Gluc Oral Rinse 15 Ml Mouthwash) 15 ml BUCCAL TID [facility] Last Admin: 03/11/22 20:21 Dose: 15 ml Documented by: MICHAEL Fentanyl (Fentanyl 50 Mcg Patch.Td72) 50 mcg TRANSDERMA Q72H [facility] Last Admin: 03/10/22 08:37 Dose: 50 mcg Documented by: TONI Vancomycin HCl 750 mg/ Sodium (Chloride) 265 mls @ 265 mls/hr IV Q24H [facility] Last Infusion: 03/11/22 14:32 Dose: 0 mls/hr Documented by: KRIS Dextrose (D5w) 1,000 mls @ 150 mls/hr IVCONT .Q6H40M [facility] Last Admin: 03/12/22 07:16 Dose: 150 mls/hr Documented by: KRIS Insulin Glargine (Insulin Glargine,Hum.Rec.Anlog 100 Unit/Ml 10 Ml Vial) 38 unit SUBCUT BID [facility] Last Admin: 03/11/22 20:21 Dose: 38 unit Documented by: MICHAEL Insulin Human Lispro (Insulin Lispro 100 Unit/Ml 3 Ml Vial) 0 unit SUBCUT QIDACHS [facility]; Protocol Last Admin: 03/12/22 08:32 Dose: Not Given Documented by: KRIS Non-Admin Reason: No Insulin Coverage Lactulose (Lactulose 20 Gm/30 Ml Solution) 20 gm PO Q2D [facility] Last Admin: 03/10/22 08:37 Dose: 20 gm Documented by: TONI Levothyroxine Sodium (Levothyroxine Sodium 25 Mcg Tablet) 25 mcg PO DAILY@0600 [facility] Last Admin: 03/12/22 05:41 Dose: 25 mcg Documented by: MICHAEL Metoprolol Tartrate (Metoprolol Tartrate 25 Mg Tablet) 25 mg G-TUBE BID [facility]; Protocol Last Admin: 03/11/22 20:22 Dose: 25 mg Documented by: MICHAEL Nystatin (Nystatin Powder 15 Gm Bottle) 1 appl TOPICAL BID [facility]; Protocol Last Admin: 03/11/22 20:22 Dose: 1 appl Documented by: MICHAEL Pharmacy Consult (Consult Rx Perform Med Rec) 1 each MISCELLANE ONCE PRN PRN Reason: Consult order Pharmacy Consult (Consult Rx Vancomycin Dosing) 1 each MISCELLANE DAILY PRN PRN Reason: Consult order Rifaximin (Rifaximin 550 Mg Tablet) 550 mg PO BID [facility] Last Admin: 03/11/22 20:22 Dose: 550 mg Documented by: MICHAEL Senna (Sennosides 8.6 Mg Tablet) 8.6 mg PO DAILY PRN PRN Reason: Constipation Sodium Chloride (0.9 % Sodium Chloride Flush 3 Ml Syringe) 3 ml IVFLUSH QSHIFT [facility] Last Admin: 03/11/22 22:12 Dose: Not Given Documented by: MICHAEL Non-Admin Reason: IV Running Labs CBC & Chem 7: 03/11/22 05:39 03/12/22 05:53 Labs: Laboratory Results - last 24 hr 03/05/22 03/11/22 03/11/22 16:56 11:11 12:11 Anion Gap Estim Creat Clear Calc Estimated GFR POC Glucose 243 H Random Glucose Calcium Vancomycin Trough 13.0 Cryoglobulin TNP 03/11/22 03/12/22 03/12/22 19:36 05:53 07:49 Anion Gap 12 Estim Creat Clear Calc 37.8 Estimated GFR 31 POC Glucose 83 80 Random Glucose 86 D Calcium 8.0 L Vancomycin Trough Cryoglobulin Assessment and Plan (1) Multifocal pneumonia: Status: Acute (2) Hyperammonemia: Status: Acute (3) Diabetes: Status: Acute Plan 61-year-old male with known history of dementia Parkinson's disease and schizophrenia who was a long-term resident at [facility] admitted on 02/19 for high ammonia level, falling out of bed and hitting his head but at that time no AMS. Staff noted he fell out of bed this morning hitting his head; however no mental status changes was sent for high ammonia. CT head in ED on 02/19 showed a subdural hematoma, repeat the next day unchanged. On 02/25 he was obtunded and was transfered to ICU where he made gradual improvement, ICU stay was complicated by pneumonia and has been treated with IV Abx, He was transfered out of ICU on 03/07.. Apparently he was fairly functional prior to admission. Last 24 -48 hours, he has been having high grade temps Neuro: Acute toxic metabolic encephalopathy d/t hyperammonemia--has been treated with lactulose and has signficantly improved from early days but not quite at his baseline. last ammonia level 34 on 03/07. Mental status is much better -continue Lactulose and Rifaximin Parkinson dieasee-- Continue Sinemet Cardiac: No apparent cardiac issues, was on lasix drip in ICU later discontinued, likely from fluid OV from IVF. Echo on 03/01 ?The visually estimated ejection fraction is between 60-65%. Respiratory: No underlying pulmonary issues--but was in acute respiratory failure due to encephalopathy ID--Multifactorial Pneumonia--likely aspriation realted, no Sepsis. -Presently on Unassyn and Vanco, alll cultures have been negative.--DC Vanco and Unasyn and change to oral Augmentin today -titrate O2 to maintain sats greater equal 92% GI: Diarrhea, likely from lactulose, however check C dif if persistent Renal: ERNST on CKD, Creatine above baseline baseline around 2 and presently 3 Endocrine: diabetes, Continue Insulin, Not Metformin d/t renal failure FEN/nutrition: Hypernatremia sodium of 150 today, due to free water deficit. Increase D5 t 200, and encourage oral water and repeat sodium later today and tomorrow. Nephorlogy assisting in management. Speech upgraded to Pure diet, thin Liquid Skin: Routine skin care to prevent Decub ulcer Full CODE Inapteient: acute issues including hypernatremia that need frequent electrolytes, and djustment of fluid (water) and correnction of sodium level Anticipate DC in 1 to 2 days Full code Boots Quality Stroke Does the patient have a stroke diagnosis?: No VTE Prior VTE?: No VTE Risk Level:: Medical - moderate - high VTE Device Contraindication: N/A - Device Ordered VTE Drug Contraindication: Treatment Not Indicated
[2022-03-12] MEDS: Metoprolol Tartrate 25 MG TABLET G-TUBE ×2 (09:11→20:43)
[2022-03-12] MEDS: rifAXIMin 550 MG TABLET PO ×2 (09:11→20:43)
[2022-03-12] MEDS: Chlorhexidine Gluc Oral Rinse 15 ML MOUTHWASH BUCCAL ×3 (09:12→20:43)
[2022-03-12] MEDS: Insulin Glargine,Hum.rec.anlog 100 UNIT/ML 10 ML VIAL 38 UNIT SUBCUT ×2 (09:12→20:44)
[2022-03-12] MEDS: Nystatin Powder 15 GM BOTTLE 1 APPL TOPICAL ×2 (09:20→22:32)
[2022-03-12] MEDS: Lactulose 20 GM/30 ML SOLUTION PO (09:40)
[2022-03-12] MEDS: Amoxicillin/Potassium Clav 875 MG TABLET PO ×2 (10:35→20:43)
[2022-03-12 11:01] LABS: Glucose, Whole Blood 136 mg/dL (60-115)
[2022-03-12 11:48] VITALS: BP 111/78; PULSE 100; RESP 15; TEMP 36.2; O2SAT 92
[2022-03-12 11:49] LABS: Vancomycin Trough 17.3 mcg/mL (10.0-20.0)
--- NOTE | 2022-03-12 12:06 | PM.PNNEP ---
Subjective Subjective Date of Service: 03/13/22 Interval history: Events noted No change in mentation Physical Exam Vital Signs: Vital Signs: Last Vital Signs Temp 97.1 F 03/12/22 11:48 Pulse 100 03/12/22 11:48 Resp 15 03/12/22 11:48 BP 111/78 03/12/22 11:48 Pulse Ox 92 03/12/22 11:48 BMI result Body Mass Index 34.9 Const: Other: General: AO X 1, no acute distress Resp: CTA bilateral CVS: S1,S2,RRR GI: +BS, NT, no distention Skin: No rash Neuro: motor grossly intact, parkinsonian tremors Psych: appropriate affect Objective Data Labs CBC & Chem 7: 03/11/22 05:39 03/13/22 07:58 Labs: Laboratory Results - last 24 hr 03/05/22 03/11/22 03/11/22 16:56 12:11 19:36 Sodium Potassium Chloride Carbon Dioxide Anion Gap BUN Creatinine Estim Creat Clear Calc Estimated GFR POC Glucose 83 Random Glucose Calcium Vancomycin Trough 13.0 Cryoglobulin TNP 03/12/22 03/12/22 03/12/22 05:53 07:49 10:57 Sodium 150 H Potassium 3.9 Chloride 115 H Carbon Dioxide 27 Anion Gap 12 BUN 56 H Creatinine 2.19 H Estim Creat Clear Calc 37.8 Estimated GFR 31 POC Glucose 80 136 H Random Glucose 86 D Calcium 8.0 L Vancomycin Trough Cryoglobulin 03/12/22 11:02 Sodium Potassium Chloride Carbon Dioxide Anion Gap BUN Creatinine Estim Creat Clear Calc Estimated GFR POC Glucose Random Glucose Calcium Vancomycin Trough 17.3 Cryoglobulin Microbiology Microbiology Results: Microbiology 03/08/22 10:37 Blood - Venous Blood Culture - Preliminary No growth after 48 hours. 03/08/22 10:38 Blood - Venous Blood Culture - Preliminary No growth after 48 hours. 03/04/22 12:28 Blood - Venous Blood Culture - Final No growth after 5 days. 03/04/22 12:28 Blood - Venous Blood Culture - Final No growth after 5 days. 03/01/22 02:27 Blood - Venous Blood Culture - Final No growth after 5 days. 03/01/22 02:27 Blood - Venous Blood Culture - Final No growth after 5 days. 03/04/22 13:31 Urine Catheterized - Ybarra Catheter Urine Culture - Final No growth. 03/01/22 05:25 Sputum - Suctioned Gram Stain - Final 03/01/22 05:25 Sputum - Suctioned Sputum Culture - Final Procedures Date of Service Date of Service: 03/12/22 Assessment & Plan Assessment and plan (1) Hypervolemia: Status: Acute (2) Hypernatremia: Status: Acute (3) ERNST (acute kidney injury): Status: Acute Plan ERNST, non-oliguric: #ERNST, non-oliguric. -ERNST in setting of hepatic encephalopathy. -Suspect his worsening ERNST is from hypervolemia with noted underlying liver failure and cardiomegaly. -Colloid product(s) will help defend IV space. s/p prbc transfusion -avoidance of nephrotoxic agents. Hold lisinopril. Hold metformin. Avoidance of nsaids, IV contrast, and renal dosing of abx. -imaging noted. No evidence of hydronephrosis. Ybarra in place. #) Hypernatremia Keep D5W due to on going diarrhea Avoid loop diuretic . Time Spent With Patient Time: Total time spent is greater than 50% in coordination of care (as documented) at patient's floor/unit and/or counseling patient: Progress Note: Quality Stroke Does the patient have a stroke diagnosis?: No
[2022-03-12 15:36] VITALS: BP 123/60; PULSE 55; RESP 18; TEMP 36.4; O2SAT 91
[2022-03-12 16:30] LABS: Glucose, Whole Blood 191 mg/dL (60-115)
[2022-03-12 19:13] VITALS: BP 134/59; PULSE 64; RESP 18; TEMP 35.9; O2SAT 92
[2022-03-12 19:22] LABS: Glucose, Whole Blood 334 mg/dL (60-115)
[2022-03-12] MEDS: Insulin Lispro 100 UNIT/ML 3 ML VIAL SUBCUT (20:43)
[2022-03-12] MEDS: Dextrose 5 % 1,000 ML 200 ML IVCONT (22:46)
[2022-03-12 23:59] VITALS: BP 121/54; PULSE 60; RESP 18; TEMP 36.4; O2SAT 92
--- NOTE | 2022-03-13 02:46 | PC.NURSE ---
Took over care of patient at 2300. See charting for shift assessment. Fentanyl patch noted on left shoulder. Pt incontinent of urine and liquid brown stool-washed, changed and repositioned. 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 Red raised rash noted on upper back. Pt was started on Augmentin on 03/12. Will pass this along in report in am to pass along to MD.
[2022-03-13 04:00] VITALS: BP 133/57; PULSE 56; RESP 18; TEMP 36.7; O2SAT 92
[2022-03-13] MEDS: Dextrose 5 % 1,000 ML 200 ML IVCONT ×2 (04:41→09:23)
[2022-03-13] MEDS: Levothyroxine Sodium 25 MCG TABLET PO (06:43)
[2022-03-13] MEDS: Carbidopa/Levodopa 25/100 TABLET 1 TAB PO ×4 (06:43→23:42)
[2022-03-13 07:21] VITALS: BP 145/65; PULSE 62; RESP 15; TEMP 37.1; O2SAT 93
[2022-03-13 08:00] LABS: Glucose, Whole Blood 187 mg/dL (60-115)
[2022-03-13 08:26] LABS: Anion Gap 14 (12-20); Blood Urea Nitrogen 47 mg/dL (9-16); Calcium 7.9 mg/dL (8.4-10.2); Carbon Dioxide 23 mmol/L (22-29); Chloride 106 mmol/L (96-108); Creatinine Clr Calc Pharmacy 37.3; Estimated Glomerular Filt Rate 30; Glucose Random 218 mg/dL (60-115); Potassium 3.7 mmol/L (3.3-5.1); Sodium 139 mmol/L (135-145)
[2022-03-13] MEDS: fentaNYL 50 MCG PATCH.TD72 TRANSDERMA (09:25)
[2022-03-13] MEDS: Insulin Glargine,Hum.rec.anlog 100 UNIT/ML 10 ML VIAL 38 UNIT SUBCUT ×2 (09:30→20:57)
[2022-03-13] MEDS: Chlorhexidine Gluc Oral Rinse 15 ML MOUTHWASH BUCCAL ×3 (09:32→20:58)
[2022-03-13] MEDS: rifAXIMin 550 MG TABLET PO ×2 (09:32→20:59)
[2022-03-13] MEDS: Amoxicillin/Potassium Clav 875 MG TABLET PO ×2 (09:32→20:59)
[2022-03-13] MEDS: Nystatin Powder 15 GM BOTTLE 1 APPL TOPICAL ×2 (09:33→20:59)
[2022-03-13] MEDS: Metoprolol Tartrate 25 MG TABLET G-TUBE ×2 (09:34→20:58)
--- NOTE | 2022-03-13 09:38 | HO.PM.IMPN ---
Subjective Subjective Date of Service: 03/13/22 Interval History: Seen in f/u for prolong hospital stay including ICU stay for obtundation, toxic metabolic encephalopathy, sepsis/PNA interval history: Patient is calm no new issues, no agiation sodium now normal Review of Systems no fever, no cough Physical Exam Vital Signs: Vital Signs: Last Vital Signs Temp 98.8 F 03/13/22 07:21 Pulse 62 03/13/22 07:21 Resp 15 03/13/22 07:21 BP 145/65 H 03/13/22 07:21 Pulse Ox 93 03/13/22 07:21 BMI result Body Mass Index 34.9 Const: Other: General: AO X 2, no acute distress Resp: CTA bilateral CVS: S1,S2,RRR GI: +BS, NT, no distention Skin: No rash Neuro: motor grossly intact, parkinsonian tremors Psych: appropriate affect Objective Data Active Medications Acetaminophen (Acetaminophen Oral Liquid 650 Mg/20.3 Ml Solution) 650 mg G-TUBE Q6H PRN PRN Reason: temp > or = to 102 Last Admin: 03/09/22 11:54 Dose: 650 mg Documented by: THAIS Amoxicillin/Clavulanate Potassium (Amoxicillin/Potassium Clav 875 Mg Tablet) 875 mg PO Q12H [facility] Last Admin: 03/13/22 09:32 Dose: 875 mg Documented by: ANDREA Carbidopa/Levodopa (Carbidopa/Levodopa 25/100 Tablet) 1 tab PO 0000,1200,1800 [facility] Last Admin: 03/12/22 23:38 Dose: 1 tab Documented by: MARIAH Carbidopa/Levodopa (Carbidopa/Levodopa 25/100 Tablet) 1 tab PO DAILY@0600 [facility] Last Admin: 03/13/22 06:43 Dose: 1 tab Documented by: MARIAH Chlorhexidine Gluconate (Chlorhexidine Gluc Oral Rinse 15 Ml Mouthwash) 15 ml BUCCAL TID [facility] Last Admin: 03/13/22 09:32 Dose: 15 ml Documented by: ANDREA Fentanyl (Fentanyl 50 Mcg Patch.Td72) 50 mcg TRANSDERMA Q72H [facility] Last Admin: 03/13/22 09:25 Dose: 50 mcg Documented by: ANDERA Dextrose (D5w) 1,000 mls @ 200 mls/hr IVCONT .Q5H [facility] Last Admin: 03/13/22 09:23 Dose: 200 mls/hr Documented by: ANDREA Insulin Glargine (Insulin Glargine,Hum.Rec.Anlog 100 Unit/Ml 10 Ml Vial) 38 unit SUBCUT BID [facility] Last Admin: 03/13/22 09:30 Dose: 38 unit Documented by: ANDREA Insulin Human Lispro (Insulin Lispro 100 Unit/Ml 3 Ml Vial) 0 unit SUBCUT QIDACHS [facility]; Protocol Last Admin: 03/13/22 09:17 Dose: Not Given Documented by: ANDREA Non-Admin Reason: No Insulin Coverage Lactulose (Lactulose 20 Gm/30 Ml Solution) 20 gm PO Q2D [facility] Last Admin: 03/12/22 09:40 Dose: 20 gm Documented by: KRIS Levothyroxine Sodium (Levothyroxine Sodium 25 Mcg Tablet) 25 mcg PO DAILY@0600 [facility] Last Admin: 03/13/22 06:43 Dose: 25 mcg Documented by: MARIAH Metoprolol Tartrate (Metoprolol Tartrate 25 Mg Tablet) 25 mg G-TUBE BID [facility]; Protocol Last Admin: 03/13/22 09:34 Dose: 25 mg Documented by: ANDREA Nystatin (Nystatin Powder 15 Gm Bottle) 1 appl TOPICAL BID [facility]; Protocol Last Admin: 03/13/22 09:33 Dose: 1 appl Documented by: ANDREA Pharmacy Consult (Consult Rx Perform Med Rec) 1 each MISCELLANE ONCE PRN PRN Reason: Consult order Pharmacy Consult (Consult Rx Vancomycin Dosing) 1 each MISCELLANE DAILY PRN PRN Reason: Consult order Rifaximin (Rifaximin 550 Mg Tablet) 550 mg PO BID [facility] Last Admin: 03/13/22 09:32 Dose: 550 mg Documented by: ANDREA Senna (Sennosides 8.6 Mg Tablet) 8.6 mg PO DAILY PRN PRN Reason: Constipation Sodium Chloride (0.9 % Sodium Chloride Flush 3 Ml Syringe) 3 ml IVFLUSH QSHIFT [facility] Last Admin: 03/13/22 09:24 Dose: Not Given Documented by: ANDREA Non-Admin Reason: IV Running Labs CBC & Chem 7: 03/11/22 05:39 03/13/22 07:58 Labs: Laboratory Results - last 24 hr 03/12/22 03/12/22 03/12/22 10:57 11:02 15:48 Anion Gap Estim Creat Clear Calc Estimated GFR POC Glucose 136 H 191 H Random Glucose Calcium Vancomycin Trough 17.3 03/12/22 03/13/22 03/13/22 19:17 07:24 07:58 Anion Gap 14 Estim Creat Clear Calc 37.3 Estimated GFR 30 POC Glucose 334 H 187 H Random Glucose 218 H D Calcium 7.9 L Vancomycin Trough Assessment and Plan (1) Multifocal pneumonia: Status: Acute (2) Hyperammonemia: Status: Acute (3) Diabetes: Status: Acute Plan 61-year-old male with known history of dementia Parkinson's disease and schizophrenia who was a long-term resident at [facility] admitted on 02/19 for high ammonia level, falling out of bed and hitting his head but at that time no AMS. Staff noted he fell out of bed this morning hitting his head; however no mental status changes was sent for high ammonia. CT head in ED on 02/19 showed a subdural hematoma, repeat the next day unchanged. On 02/25 he was obtunded and was transfered to ICU where he made gradual improvement, ICU stay was complicated by pneumonia and has been treated with IV Abx, He was transfered out of ICU on 03/07.. Apparently he was fairly functional prior to admission. Last 24 -48 hours, he has been having high grade temps Neuro: Acute toxic metabolic encephalopathy d/t hyperammonemia--has been treated with lactulose and has signficantly improved from early days but not quite at his baseline. last ammonia level 34 on 03/07. Mental status is much better -continue Lactulose and Rifaximin Parkinson dieasee-- Continue Sinemet Cardiac: No apparent cardiac issues, was on lasix drip in ICU later discontinued, likely from fluid OV from IVF. Echo on 03/01 ?The visually estimated ejection fraction is between 60-65%. Respiratory: No underlying pulmonary issues--but was in acute respiratory failure due to encephalopathy ID--Multifactorial Pneumonia--likely aspriation realted, no Sepsis. -Has completed Unasyn and Vancomycin and now on PO Augmentin for total of 10 days -titrate O2 to maintain sats greater equal 92% GI: Diarrhea, likely from lactulose, however check C dif if persistent Renal: ERNST on CKD, Creatine above baseline baseline around 2 Endocrine: diabetes, Continue Insulin, Not Metformin d/t renal failure FEN/nutrition: Hypernatremia sodium --Sodium is 139 today, Discontinue IVF and encourage oral water Skin: Routine skin care to prevent Decub ulcer Full CODE Inapteient: acute issues including hypernatremia that need frequent electrolytes, and djustment of fluid (water) and correnction of sodium level Anticipate DC in AM Full code Boots Quality Stroke Does the patient have a stroke diagnosis?: No VTE Prior VTE?: No VTE Risk Level:: Medical - moderate - high VTE Device Contraindication: N/A - Device Ordered VTE Drug Contraindication: Treatment Not Indicated
[2022-03-13 11:49] VITALS: BP 120/73; PULSE 100; RESP 15; TEMP 36.6; O2SAT 92
[2022-03-13 11:55] LABS: Glucose, Whole Blood 230 mg/dL (60-115)
--- NOTE | 2022-03-13 12:04 | PM.PNNEP ---
Subjective Subjective Date of Service: 03/13/22 Interval history: Events noted No change in mentation Physical Exam Vital Signs: Vital Signs: Last Vital Signs Temp 97.8 F 03/13/22 11:49 Pulse 100 03/13/22 11:49 Resp 15 03/13/22 11:49 BP 120/73 03/13/22 11:49 Pulse Ox 92 03/13/22 11:49 BMI result Body Mass Index 34.9 Const: Other: General: AO X 1, no acute distress Resp: CTA bilateral CVS: S1,S2,RRR GI: +BS, NT, no distention Skin: No rash Neuro: motor grossly intact, parkinsonian tremors Psych: appropriate affect Objective Data Labs CBC & Chem 7: 03/11/22 05:39 03/13/22 07:58 Labs: Laboratory Results - last 24 hr 03/12/22 03/12/22 03/13/22 15:48 19:17 07:24 Sodium Potassium Chloride Carbon Dioxide Anion Gap BUN Creatinine Estim Creat Clear Calc Estimated GFR POC Glucose 191 H 334 H 187 H Random Glucose Calcium 03/13/22 03/13/22 07:58 11:51 Sodium 139 Potassium 3.7 Chloride 106 Carbon Dioxide 23 Anion Gap 14 BUN 47 H Creatinine 2.22 H Estim Creat Clear Calc 37.3 Estimated GFR 30 POC Glucose 230 H Random Glucose 218 H D Calcium 7.9 L Microbiology Microbiology Results: Microbiology 03/08/22 10:37 Blood - Venous Blood Culture - Preliminary No growth after 48 hours. 03/08/22 10:38 Blood - Venous Blood Culture - Preliminary No growth after 48 hours. 03/04/22 12:28 Blood - Venous Blood Culture - Final No growth after 5 days. 03/04/22 12:28 Blood - Venous Blood Culture - Final No growth after 5 days. 03/01/22 02:27 Blood - Venous Blood Culture - Final No growth after 5 days. 03/01/22 02:27 Blood - Venous Blood Culture - Final No growth after 5 days. 03/04/22 13:31 Urine Catheterized - Ybarra Catheter Urine Culture - Final No growth. 03/01/22 05:25 Sputum - Suctioned Gram Stain - Final 03/01/22 05:25 Sputum - Suctioned Sputum Culture - Final Procedures Date of Service Date of Service: 03/13/22 Assessment & Plan Assessment and plan (1) Hypervolemia: Status: Acute (2) Hypernatremia: Status: Acute (3) ERNST (acute kidney injury): Status: Acute Plan ERNST, non-oliguric: #ERNST, non-oliguric. -ERNST in setting of hepatic encephalopathy. -Suspect his worsening ERNST is from hypervolemia with noted underlying liver failure and cardiomegaly. -avoidance of nephrotoxic agents. Hold lisinopril. Hold metformin. Avoidance of nsaids, IV contrast, and renal dosing of abx. -imaging noted. No evidence of hydronephrosis. Ybarra in place. #) Hypernatremia Na is better! Keep D5W due to on going diarrhea Avoid loop diuretic . Time Spent With Patient Time: Total time spent is greater than 50% in coordination of care (as documented) at patient's floor/unit and/or counseling patient: Progress Note: Quality Stroke Does the patient have a stroke diagnosis?: No
[2022-03-13] MEDS: Insulin Lispro 100 UNIT/ML 3 ML VIAL SUBCUT (12:07)
[2022-03-13 16:00] VITALS: BP 112/54; PULSE 80; RESP 18; TEMP 35.4; O2SAT 95
[2022-03-13 16:42] LABS: Glucose, Whole Blood 158 mg/dL (60-115)
[2022-03-13] MEDS: 0.9 % Sodium Chloride Flush 3 ML SYRINGE IVFLUSH ×2 (16:43→23:41)
[2022-03-13 19:44] VITALS: BP 137/56; PULSE 102; RESP 18; TEMP 36.9; O2SAT 89
[2022-03-13 20:44] LABS: Glucose, Whole Blood 142 mg/dL (60-115)
[2022-03-13 21:02] VITALS: O2SAT 93
[2022-03-14] VITALS: BP 147/63; PULSE 56; RESP 14; TEMP 36.6; O2SAT 94
[2022-03-14 04:00] VITALS: BP 155/76; PULSE 82; RESP 20; TEMP 36.9; O2SAT 96
[2022-03-14] MEDS: Levothyroxine Sodium 25 MCG TABLET PO (06:15)
[2022-03-14] MEDS: Carbidopa/Levodopa 25/100 TABLET 1 TAB PO ×3 (06:15→17:26)
[2022-03-14 07:39] LABS: Glucose, Whole Blood 57 mg/dL (60-115)
[2022-03-14] MEDS: 0.9 % Sodium Chloride Flush 3 ML SYRINGE IVFLUSH ×3 (07:44→21:35)
--- NOTE | 2022-03-14 08:41 | P.DS_ITS ---
DS: Providers Provider Date of Service: 03/14/22 Date of admission: 02/19/22 15:45 Primary care physician: Danile Moon DO Consults: 02/20/22 10:56 Consult to Gastroenterology Routine Consulting Provider: Digna Berry Reason for consultation: Hyperammonemia Has provider been notified: Yes 03/01/22 09:11 Consult to Nephrology Routine Consulting Provider: Jose Adhikari Reason for consultation: ERNST Has provider been notified: Yes 03/03/22 11:54 Consult to Psychiatry Routine Consulting Provider: Psych Covering Reason for consultation: AMS Has provider been notified: No 03/07/22 16:39 Consult for Sitter Routine Reason for consultation: threat 03/09/22 09:54 Consult to Nephrology Routine Consulting Provider: Crispin Lomax Reason for consultation: ERNST on CKD, Hypernatremia DS: Diagnosis Discharge Diagnosis (1) Hypervolemia: Status: Resolved (2) Hypernatremia: Status: Resolved (3) ERNST (acute kidney injury): Status: Resolved DS: Summary Hospital Course Hospital Course: Admitted on February 20, 2020 Chief Complaint: Fall 61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 Routine labs were done and the patient's ammonia level was found to be extremely elevated despite lactulose.? Head CT was done out of protocol and demonstrated a likely intracranial subdural bleed along the right tentorium.? Call was placed to Neurology who recommended admitting the patient overnight and repeating the CT in the a.m..? Of note, patient mental status and presentation is at his baseline without focal deficits.? He will be admitted for repeat CT scan in the a.m. Hospital course: Essentially, 61-year-old male with known history of dementia Parkinson's disease and schizophrenia who was a long-term resident at [facility] at [place] admitted on? 02/19? for high ammonia level on routine check after falling out of bed and hitting his head but at that time no AMS.? Basically Staff noted he fell out of bed on that morning hitting his head; however no mental status changes was sent for high ammonia.? CT head in ED? on 02/19 showed a? small subdural hematoma, repeat the next day was unchanged.? On 02/25 he was obtunded and was transfered to ICU where he made gradual improvement without been intubated , ICU stay was complicated by pneumonia and has been treated with IV Abx, He was transfered out of ICU on 03/07, other noted complications include ERNST, Hypernatremia, dysphagia. ? Problem by system Neuro: Acute toxic metabolic encephalopathy d/t hyperammonemia--has been treated with lactulose and has signficantly improved? from early days but not quite at his baseline.? last ammonia level 34 on 03/07. Mental status is much better and apparently at baseline . He kassandra continue Lactulose? and Rifaximin as ordered Subdura Hematoma--Initial head CT on 02/19 and repeat the next day showed a small subdural hematoma, MRI on 02/26 showed a stable hematoma and there was no indication for procedure. Parkinson dieasee--? Continue Sinemet. Cardiac: No apparent cardiac issues, was on lasix drip in ICU for later discontinued, likely from fluid OV from IVF. Echo on 03/01??The visually estimated ejection fraction is between 60-65%. Respiratory: No underlying chronic pulmonary issues--but was in acute respiratory failure due to encephalopathy and this has resolved and did not require intubation in the ICU. ID--Multifactorial Pneumonia, Sepsis --likely aspriation related, blood cultures have been negative. He has been treated with Vancomycin and Unassyn and will complete a 10 day course with Augmtin He is presently not requiring oxygen and sating 96% on room air GI: Diarrhea, likely from lactulose and has resolved. Renal: RENST on CKD, Creatine above baseline baseline around 2,. Creatine peaked at 3.22 on 03/06 and as of 03/13 2.2 which is essentially his baseline. Endocrine: diabetes, Continue Insulin. Stopping metformin due to renal failure, hold Levemir as fs running boderline . moniter fs and use sliding scale. HTN--Stopped lisinopril due to ERNST, continue Norvasc and started on Metoprolol in hospital. FEN/nutrition: Hypernatremia sodium --due to dehydration, sodium peaked at 163 on the March 09 and as of March 13, 139 following correction with water Skin: Routine skin care to prevent Decub ulcer Moniter cbc and bmp in 1 week in rehab due to above mentioned issues. Assessment and plan coordination time spent 50 minute. Time Spent with Patient Time attestation: Total time spent providing and/or coordinating discharge services: Discharge coordination time: Greater than 30 minutes Quality: Safe Use of Opioids Does Pt have an Active Cancer Diagnosis on the Problem List?: No Quality: Stroke Does the patient have a stroke diagnosis?: No Physical Exam Vital Signs: Vital Signs: Last Vital Signs Temp 98.5 F 03/14/22 04:00 Pulse 82 03/14/22 04:00 Resp 20 03/14/22 04:00 BP 155/76 H 03/14/22 04:00 Pulse Ox 96 03/14/22 04:00 BMI result Body Mass Index 34.9 DS: Data Data Completed and Pending Labs on day of discharge: Laboratory Results - last 24 hr 03/05/22 03/13/22 03/13/22 16:56 11:51 15:45 POC Glucose 230 H 158 H Cryoglobulin Cryocrit TNP 03/13/22 03/14/22 19:52 07:22 POC Glucose 142 H 57 L* Cryoglobulin Cryocrit Discharge Plan Discharge Anticipated Discharge Date/Time: 03/15/22 16:18 Patient Disposition: Xfer SNF Discharge Diagnosis: Toxic metabolic encephalopathy, Pneumonia, Referrals: Daniel Moon DO [Primary Care Provider] - 1 Week Discharge Medications: Continued docusate sodium 100 mg Tablet 100 mg PO BEDTIME 0RF tramadol 50 mg Tablet 50 mg PO BID 0RF Hold Instructions: MD to decide if needed to be resumed Lotrimin AF 2 % Aerosol,[place] 1 spray TOPICAL BID PRN (Reason: fungal infection) 0RF fluphenazine decanoate 25 mg/mL Solution 50 mg SUBCUT Q14D 0RF benztropine 1 mg Tablet 1 mg PO BID 0RF carbidopa-levodopa [Sinemet] 25-100 mg Tablet 1 tab PO QID 0RF loratadine 10 mg Tablet 10 mg PO DAILY 0RF Hold Instructions: MD to decide if needed to be resumed sennosides [senna] 8.6 mg Tablet 8.6 mg PO DAILY PRN (Reason: Constipation) 0RF ziprasidone HCl 20 mg capsule 20 mg PO DAILY@1800 0RF multivitamin Tablet 1 tab PO DAILY 0RF levothyroxine 25 mcg tablet 25 mcg PO DAILY@0600 0RF amlodipine 10 mg tablet 10 mg PO BEDTIME 0RF Xifaxan 550 mg tablet 1 tab PO BID 0RF Discontinued aspirin 81 mg Tablet,Delayed Release (Dr/Ec) 81 mg PO DAILY 0RF metformin 1,000 mg Tablet 1,000 mg PO BIDWM 0RF Levemir FlexTouch U-100 Insuln 100 unit/mL (3 mL) insulin pen 25 unit subcut BID 0RF furosemide 40 mg tablet 1 tab PO DAILY 0RF lisinopril 40 mg tablet 1 tab PO DAILY 0RF lactulose 20 gram/30 mL solution 40 g PO 8XD 0RF No Action acetaminophen 325 mg Tablet 650 mg PO Q4H PRN (Reason: PAIN/TEMP>100) 0RF bisacodyl 10 mg Suppository 10 mg NC DAILY PRN (Reason: Constipation) 0RF Calazime Skin Protectant 1 applic topical QSHIFT 0RF Protocol: Apply to: Apply to: GROIN Rx Instructions: APPLY TO GROIN TOPICALLY EVERY SHIFT FOR REDNESS AND IRRITATION WASH GROIN WITH WARM SOAPY WATER. PAT DRY. APPLY CLAZIME CREAM TO GROIN. guaifenesin 100 mg/5 mL Liquid 200 mg PO Q4H PRN (Reason: Cough) 0RF lactulose 20 gram/30 mL solution 20 g PO DAILY 0RF Levemir FlexTouch U-100 Insuln 100 unit/mL (3 mL) Insulin Pen 25 unit SUBCUT DAILY 0RF metoprolol tartrate 25 mg tablet 25 mg PO BID 0RF Protocol: Hold for SBP/HR < HOLD for SBP < : 90 HOLD for HR < : 60 sennosides [senna] 8.6 mg Tablet 8.6 mg PO DAILY 0RF lorazepam 1 mg Tablet 1 mg PO Q6H PRN (Reason: anxiety, agitation) Qty: 15 0RF quetiapine 50 mg Tablet 50 mg PO TID PRN (Reason: agitation) Qty: 20 0RF gabapentin 600 mg tablet 300 mg PO TID Qty: 0 0RF furosemide 20 mg tablet 20 mg PO QAM Qty: 30 0RF Discharge Orders: Discharge Order (Routine); Ordered 03/15/22 Ordered By: Grzegorz Jose Diet: advance to usual diet Activity on Discharge: As tolerated Stand Alone Forms: Patient Portal Discharge page Care Plan Goals: Full recovery from subdural hematoma, metabolic encephalopaty Health Concerns: subdura hematoma, metabolic encephalopahty, renal failure. Moniter cbc and bmp in 1 week in rehab. Plan of Treatment: Continue care at [facility] Assessment: as abobe Discharge Date/Time: 03/15/22 14:49
[2022-03-14 09:02] LABS: Glucose, Whole Blood 57 mg/dL (60-115)
[2022-03-14] MEDS: rifAXIMin 550 MG TABLET PO ×2 (09:05→21:34)
[2022-03-14] MEDS: Metoprolol Tartrate 25 MG TABLET G-TUBE ×2 (09:05→21:33)
[2022-03-14] MEDS: Glucose Gel 15 GM GEL..GRAM. PO (09:05)
[2022-03-14] MEDS: Amoxicillin/Potassium Clav 875 MG TABLET PO ×2 (09:05→21:34)
[2022-03-14] MEDS: Chlorhexidine Gluc Oral Rinse 15 ML MOUTHWASH BUCCAL ×3 (09:13→21:35)
[2022-03-14] MEDS: Nystatin Powder 15 GM BOTTLE 1 APPL TOPICAL ×2 (09:59→21:35)
[2022-03-14] MEDS: Lactulose 20 GM/30 ML SOLUTION PO (10:01)
[2022-03-14] MEDS: Dextrose 50 % 25 GM/50 ML SYRINGE IVPUSH (10:24)
[2022-03-14 10:25] LABS: Glucose, Whole Blood 65 mg/dL (60-115)
[2022-03-14 10:25] LABS: Glucose, Whole Blood 51 mg/dL (60-115)
[2022-03-14 10:25] LABS: Glucose, Whole Blood 56 mg/dL (60-115)
--- NOTE | 2022-03-14 11:46 | PM.PNNEP ---
Subjective Subjective Date of Service: 03/14/22 Interval history: seen and examined Physical Exam Vital Signs: Vital Signs: Last Vital Signs Temp 98.5 F 03/14/22 04:00 Pulse 82 03/14/22 04:00 Resp 20 03/14/22 04:00 BP 155/76 H 03/14/22 04:00 Pulse Ox 96 03/14/22 04:00 BMI result Body Mass Index 34.9 Const: General: no acute distress HEENT: Head: Yes normocephalic and Yes atraumatic Neck: Neck: Yes supple Resp: Auscultation: diminished lung sounds Cardio: Heart sounds: S1 normal heart sound present and S2 normal heart sound present GI: Palpation (GI): Soft to palpation and nontender Extrem: General: No edema Objective Data Labs CBC & Chem 7: 03/11/22 05:39 03/13/22 07:58 Labs: Laboratory Results - last 24 hr 03/05/22 03/13/22 03/13/22 16:56 11:51 15:45 POC Glucose 230 H 158 H Cryoglobulin Cryocrit TNP 03/13/22 03/14/22 03/14/22 19:52 07:22 08:58 POC Glucose 142 H 57 L* 57 L* Cryoglobulin Cryocrit 03/14/22 03/14/22 03/14/22 10:11 10:15 10:21 POC Glucose 56 L* 51 L* 65 Cryoglobulin Cryocrit Microbiology Microbiology Results: Microbiology 03/08/22 10:37 Blood - Venous Blood Culture - Final No growth after 5 days. 03/08/22 10:38 Blood - Venous Blood Culture - Final No growth after 5 days. 03/04/22 12:28 Blood - Venous Blood Culture - Final No growth after 5 days. 03/04/22 12:28 Blood - Venous Blood Culture - Final No growth after 5 days. 03/01/22 02:27 Blood - Venous Blood Culture - Final No growth after 5 days. 03/01/22 02:27 Blood - Venous Blood Culture - Final No growth after 5 days. 03/04/22 13:31 Urine Catheterized - Ybarra Catheter Urine Culture - Final No growth. 03/01/22 05:25 Sputum - Suctioned Gram Stain - Final 03/01/22 05:25 Sputum - Suctioned Sputum Culture - Final Procedures Date of Service Date of Service: 03/14/22 Assessment & Plan Assessment and plan (1) ERNST (acute kidney injury): Status: Acute (2) Alcoholic cirrhosis of liver with ascites: Status: Acute (3) CKD (chronic kidney disease) stage 3, GFR 30-59 ml/min: Status: Acute Plan Scr better close to baseline free water deficit corrected ERNST due to renal hypoperfusion known CKD and liver disease REC no IVF oral fluid intake follow kidney function and electrolytes Time Spent With Patient Time: Total time spent is greater than 50% in coordination of care (as documented) at patient's floor/unit and/or counseling patient: Progress Note: Quality Stroke Does the patient have a stroke diagnosis?: No
[2022-03-14 12:00] VITALS: BP 104/57; PULSE 61; RESP 20; TEMP 36.1; O2SAT 94
[2022-03-14 12:08] LABS: COVID-19 Test Negative (Negative)
[2022-03-14 12:33] LABS: Glucose, Whole Blood 118 mg/dL (60-115)
--- NOTE | 2022-03-14 14:07 | MHC.CLN ---
F/U PO INTAKE APPEARS GOOD WITH MOST MEALS 100%. DIET= PUREED WITH NECTAR THICK LIQUIDS. RECEIVING ENSURE TID TO PROVIDE ADDITIONAL 1050 KCALS, 60 G PROTEIN TO PROMOTE WOUND HEALING. STAGE II WOUND TO COCCYX HEALING. SERUM SODIUM NORMAL 03/13. MONITOR BS, PO INTAKE AND SUPPLEMENT ACCEPTANCE
[2022-03-14 15:58] VITALS: BP 140/72; PULSE 56; RESP 18; TEMP 36.7; O2SAT 96
--- NOTE | 2022-03-14 15:58 | MHC.SLORD ---
Speech Language Pathology Order Status: Patient is on PUREED solids (NDD1) and NECTAR THICK liquids, pills CRUSHED in PUREE. 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
[2022-03-14 16:33] LABS: Glucose, Whole Blood 130 mg/dL (60-115)
[2022-03-14 20:00] VITALS: RESP 19; TEMP 36.2
[2022-03-14 21:12] LABS: Glucose, Whole Blood 127 mg/dL (60-115)
[2022-03-14] MEDS: Insulin Glargine,Hum.rec.anlog 100 UNIT/ML 10 ML VIAL 38 UNIT SUBCUT (21:34)
[2022-03-15] MEDS: Levothyroxine Sodium 25 MCG TABLET PO (05:47)
[2022-03-15] MEDS: Carbidopa/Levodopa 25/100 TABLET 1 TAB PO ×2 (05:47→12:46)
[2022-03-15 07:18] LABS: Glucose, Whole Blood 111 mg/dL (60-115)
[2022-03-15] MEDS: Metoprolol Tartrate 25 MG TABLET G-TUBE (07:49)
[2022-03-15] MEDS: Amoxicillin/Potassium Clav 875 MG TABLET PO (07:49)
[2022-03-15] MEDS: Chlorhexidine Gluc Oral Rinse 15 ML MOUTHWASH BUCCAL (07:50)
[2022-03-15] MEDS: rifAXIMin 550 MG TABLET PO (07:50)
[2022-03-15] MEDS: 0.9 % Sodium Chloride Flush 3 ML SYRINGE IVFLUSH (07:51)
--- NOTE | 2022-03-15 11:19 | P.DS_ITS ---
DS: Providers Provider Date of Service: 03/15/22 Date of admission: 02/19/22 15:45 Primary care physician: Daniel Moon DO Consults: 02/20/22 10:56 Consult to Gastroenterology Routine Consulting Provider: Digna Berry Reason for consultation: Hyperammonemia Has provider been notified: Yes 03/01/22 09:11 Consult to Nephrology Routine Consulting Provider: Jose Adhikari Reason for consultation: ERNST Has provider been notified: Yes 03/03/22 11:54 Consult to Psychiatry Routine Consulting Provider: Psych Covering Reason for consultation: AMS Has provider been notified: No 03/07/22 16:39 Consult for Sitter Routine Reason for consultation: threat 03/09/22 09:54 Consult to Nephrology Routine Consulting Provider: Crispin Lomax Reason for consultation: ERNST on CKD, Hypernatremia DS: Diagnosis Discharge Diagnosis (1) ERNST (acute kidney injury): Status: Acute (2) Alcoholic cirrhosis of liver with ascites: Status: Acute (3) CKD (chronic kidney disease) stage 3, GFR 30-59 ml/min: Status: Acute DS: Summary Hospital Course Hospital Course: Admitted on February 20, 2020 Chief Complaint: Fall 61-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 who presents after a fall from bed at 06:15 this a.m..? Routine labs were done and the patient's ammonia level was found to be extremely elevated despite lactulose.? Head CT was done out of protocol and demonstrated a likely intracranial subdural bleed along the right tentorium.? Call was placed to Neurology who recommended admitting the patient overnight and repeating the CT in the a.m..? Of note, patient mental status and presentation is at his baseline without focal deficits.? He will be admitted for repeat CT scan in the a.m. Hospital course: Essentially, 61-year-old male with known history of dementia Parkinson's disease and schizophrenia who was a long-term resident at [facility] [place] admitted on? 02/19? for high ammonia level on routine check after falling out of bed and hitting his head but at that time no AMS.? Basically Staff noted he fell out of bed on that morning hitting his head; however no mental status changes was sent for high ammonia.? CT head in ED? on 02/19 showed a? small subdural hematoma, repeat the next day was unchanged.? On 02/25 he was obtunded and was transfered to ICU where he made gradual improvement without been intubated , ICU stay was complicated by pneumonia and has been treated with IV Abx, He was transfered out of ICU on 03/07, other noted complications include ERNST, Hypernatremia, dysphagia. ? Problem by system Neuro: Acute toxic metabolic encephalopathy d/t hyperammonemia--has been treated with lactulose and has signficantly improved? from early days but not quite at his [facility] community [facility].? last ammonia level 34 on 03/07. Mental status is much better and apparently at baseline . He kassandra continue Lactulose? and Rifaximin as ordered Subdura Hematoma--Initial head CT on 02/19 and repeat the next day showed a small subdural hematoma, MRI on 02/26 showed a stable hematoma and there was no indication for procedure. Parkinson dieasee--? Continue Sinemet. Cardiac: No apparent cardiac issues, was on lasix drip in ICU for later discontinued, likely from fluid OV from IVF. Echo on 03/01??The visually estimated ejection fraction is between 60-65%. Respiratory: No underlying chronic pulmonary issues--but was in acute respiratory failure due to encephalopathy and this has resolved and did not require intubation in the ICU. ID--Multifactorial Pneumonia, Sepsis --likely aspriation related, blood cultures have been negative. He has been treated with Vancomycin and Unassyn and will complete a 10 day course with Augmtin He is presently not requiring oxygen and sating 96% on room air GI: Diarrhea, likely from lactulose and has resolved. Renal: ERNST on CKD, Creatine above baseline baseline around 2,. Creatine peaked at 3.22 on 03/06 and as of 03/13 2.2 which is essentially his baseline. Endocrine: diabetes, Continue Insulin. Stopping metformin due to renal failure, hold Levemir as fs running boderline . moniter fs and use sliding scale. HTN--Stopped lisinopril due to ERNST, continue Norvasc and started on Metoprolol in hospital. FEN/nutrition: Hypernatremia sodium --due to dehydration, sodium peaked at 163 on the March 09 and as of March 13, 139 following correction with water Skin: Routine skin care to prevent Decub ulcer Moniter cbc and bmp in 1 week in rehab due to above mentioned issues. Assessment and plan coordination time spent 50 minute. Time Spent with Patient Time attestation: Total time spent providing and/or coordinating discharge services: Discharge coordination time: Greater than 30 minutes Quality: Safe Use of Opioids Does Pt have an Active Cancer Diagnosis on the Problem List?: No Quality: Stroke Does the patient have a stroke diagnosis?: No Physical Exam Vital Signs: Vital Signs: Last Vital Signs Temp 97.2 F 03/14/22 20:00 Pulse 56 03/14/22 15:58 Resp 19 03/14/22 20:00 BP 140/72 H 03/14/22 15:58 Pulse Ox 96 03/14/22 15:58 BMI result Body Mass Index 34.9 General: AO X 2, no acute distress Resp:? good air entry, no rales or wheezing CVS: S1,S2,RRR GI: soft,no distention, bs present. Skin: No rash Neuro:? motor grossly intact, parkinsonian tremors DS: Data Data Completed and Pending Labs on day of discharge: Laboratory Results - last 24 hr 03/14/22 03/14/22 03/14/22 10:15 12:28 16:27 POC Glucose 118 H 130 H COVID-19 ([facility]) Negative COVID-19 Clin Com See Note 03/14/22 03/15/22 21:09 06:57 POC Glucose 127 H 111 COVID-19 ([facility]AS) COVID-19 Clin Com 03/13/22: Na: 139, potassium 3.7, color in 106, bicarb 23, BUN 47 creatinine 2.2. 03/11/22WBC 7.3, hemoglobin 7.5 hematocrit 23.7, platelets 105 Additional Comments Additional comments: 03/08/22: XR/XR chest 1V IMPRESSION: No significant change in multifocal bilateral airspace disease. Collected: 03/08/22-1037 Status: COMP Req#: [id number] Received: 03/08/22-1047 Source: Blood Sp Desc: Venous Subm Dr: Daniel Mono DO Ordered: Blood Cult(2nd) Procedure Result Verified Site Blood Culture (Second) Final 03/13/22-1248 No growth after 5 days. Discharge Plan Discharge Patient Disposition: Xfer SNF Discharge Diagnosis: Toxic metabolic encephalopathy, Pneumonia, Referrals: Daniel Moon DO [Primary Care Provider] - 1 Week Discharge Medications: New amoxicillin-pot clavulanate 875-125 mg Tablet 875 mg PO Q12H Qty: 8 0RF metoprolol tartrate 25 mg Tablet 25 mg G-tube BID Qty: 30 0RF Protocol: Hold for SBP/HR < HOLD for SBP < : 90 HOLD for HR < : 60 lactulose 20 gram/30 mL Solution 20 g PO Q2D Qty: 1500 0RF Continued docusate sodium 100 mg Tablet 100 mg PO DAILY PRN (Reason: Constipation) 0RF tramadol 50 mg Tablet 50 mg PO BID 0RF Lotrimin AF 2 % Aerosol,[place] 1 spray TOPICAL BID PRN (Reason: fungal infection) 0RF fluphenazine decanoate 25 mg/mL Solution 50 mg SUBCUT Q14D 0RF benztropine 1 mg Tablet 1 mg PO BID 0RF carbidopa-levodopa [Sinemet] 25-100 mg Tablet 1 tab PO QID 0RF loratadine 10 mg Tablet 10 mg PO DAILY 0RF sennosides [senna] 8.6 mg Tablet 8.6 mg PO DAILY PRN (Reason: Constipation) 0RF ziprasidone HCl 20 mg capsule 20 mg PO DAILY@1800 0RF multivitamin Tablet 1 tab PO DAILY 0RF gabapentin 600 mg tablet 2 tab PO TID 0RF levothyroxine 25 mcg tablet 1 tab PO DAILY 0RF amlodipine 10 mg tablet 1 tab PO BEDTIME 0RF Xifaxan 550 mg tablet 1 tab PO BID 0RF Discontinued aspirin 81 mg Tablet,Delayed Release (Dr/Ec) 81 mg PO DAILY 0RF metformin 1,000 mg Tablet 1,000 mg PO BIDWM 0RF Levemir FlexTouch U-100 Insuln 100 unit/mL (3 mL) insulin pen 25 unit subcut BID 0RF furosemide 40 mg tablet 1 tab PO DAILY 0RF lisinopril 40 mg tablet 1 tab PO DAILY 0RF lactulose 20 gram/30 mL solution 40 g PO 8XD 0RF Discharge Orders: Discharge Order (Routine); Ordered 03/15/22 Ordered By: Grzegorz Jose Diet: advance to usual diet Activity on Discharge: As tolerated Stand Alone Forms: Patient Portal Discharge page Care Plan Goals: Full recovery from subdural hematoma, metabolic encephalopaty Health Concerns: subdura hematoma, metabolic encephalopahty, renal failure. Moniter cbc and bmp in 1 week in rehab. Plan of Treatment: Continue care at [facility] Assessment: as rosi
[2022-03-15] MEDS: Nystatin Powder 15 GM BOTTLE 1 APPL TOPICAL (11:20)
[2022-03-15 11:41] LABS: Glucose, Whole Blood 196 mg/dL (60-115)
--- NOTE | 2022-03-15 11:50 | MHC.CM.PN ---
CM ATTEMPTED TO CONTACT SHARRI RASHEED AT 11:45AM AT NUMBER ON FILE TO REVIEW IMM, CM UNABLE TO SPEAK W/SHARRI AND LEFT MESSAGE REGARDING PT'S PLANNED D/C BACK TO [facility] TODAY AND THAT IMM WILL BE MAILED TO HER, REGISTERED MASSAGE THERAPIST DID VERIFY ADDRESS ON FILE IS CORRECT, CM HAS SENT D/C SUMMARY AND NEG COVID TO [facility]IA [facility], CM AWAITING CONFIRMATION OF TIME TO RETURN PT.
[2022-03-15 11:55] VITALS: BP 112/61; PULSE 62; RESP 18; TEMP 36.8; O2SAT 98
== END 2022-03-15 14:49 | disposition skilled nursing facility (03) | DRG 85 ==
LOC: HO.ED 14:01 → HO.EDOVER 14:36 → HO.S3 02-20 07:48 → HO.ICU 02-25 09:15 → HO.S3 03-07 12:46
PROVIDERS: Anesthesiology; Hospitalist; Internal Medicine; Internal Medicine Gastroenterology; Internal Medicine Nephrology; Internal Medicine Pulmonary Disease; Physician Assistant Medical; Registered Nurse Community Health; Admitting Provider Hospitalist; Emergency Provider Emergency Medicine; PCP Hospitalist; Visit Provider Internal Medicine
DX: S06.5X0A Traumatic subdural hemorrhage without loss of consciousness, initial encounter (principal); J96.01 Acute respiratory failure with hypoxia; J69.0 Pneumonitis due to inhalation of food and vomit; G92.8 Other toxic encephalopathy; N17.9 Acute kidney failure, unspecified; E87.0 Hyperosmolality and hypernatremia; E72.20 Disorder of urea cycle metabolism, unspecified; E87.2 Acidosis; W06.XXXA Fall from bed, initial encounter; Y92.122 Bedroom in nursing home as the place of occurrence of the external cause; F14.10 Cocaine abuse, uncomplicated; K76.0 Fatty (change of) liver, not elsewhere classified; K70.31 Alcoholic cirrhosis of liver with ascites; K72.90 Hepatic failure, unspecified without coma; G20 Parkinson's disease; E86.9 Volume depletion, unspecified; Z20.822 Contact with and (suspected) exposure to COVID-19; E86.0 Dehydration; I50.9 Heart failure, unspecified; E88.09 Other disorders of plasma-protein metabolism, not elsewhere classified; F20.9 Schizophrenia, unspecified; N18.9 Chronic kidney disease, unspecified; F02.80 Dementia in other diseases classified elsewhere, unspecified severity, without behavioral disturbance, psychotic disturbance, mood disturbance, and anxiety; E11.22 Type 2 diabetes mellitus with diabetic chronic kidney disease; D63.8 Anemia in other chronic diseases classified elsewhere; Z87.891 Personal history of nicotine dependence; Z79.890 Hormone replacement therapy; Z79.891 Long term (current) use of opiate analgesic; Z79.899 Other long term (current) drug therapy
CPT/HCPCS: 0241U; 36415; 36600; 70450; 70551; 71045; 71250; 72125; 74018; 74176; 76705; 80048; 80053; 80076; 80202; 81001; 81003; 82040; 82140; 82272; 82550; 82595; 82803; 82947; 83010; 83520; 83605; 83615; 83735; 83880; 84100; 84145; 84295; 84300; 84443; 84484; 84540; 84630; 85025; 85027; 85610; 86021; 86160; 86850; 86900; 86901; 86923; 87040; 87070; 87086; 87205; 87493; 87635; 92526; 92610; 93005; 93308; 94640; 95810; 95816; 96360; 99218; 99285; C1758; J0295; J0610; J0696; J1200; J1205; J1940; J2405; J3010; J3370; J3486; P9016; P9047

== ENCOUNTER 2022-03-20 13:35 | Inpatient (IN) | payer MEDICARE, MEDICAID, SELFPAY ==
--- NOTE | ~2022-03-20 | CT_ITS ---
EXAMINATION: CT HEAD WITHOUT CONTRAST CLINICAL INFORMATION: Altered mental status. COMPARISON: Head CT from 02/19/2022, 02/20/2022 and 02/28/2022 TECHNIQUE: Contiguous axial imaging was performed from the skull base to vertex without intravenous administration of contrast. This CT examination was performed using dose optimization techniques as appropriate, variously including the following: *Automated exposure control *Adjustment of mA and/or kV according to patient size (this includes techniques or standardized protocols for targeted exams where dose is matched to indication/reason for exam; i.e. extremities or head) *Use of iterative reconstruction technique DLP: 825 mGy-cm FINDINGS: Chronic mild small vessel ischemic changes of supratentorial white matter. The clemente-white matter differentiation is maintained. No evidence of an acute major vascular territory infarction. There is minimal residual hyperdensity along the right tentorium. No recurrent intracranial hemorrhage. No extra-axial fluid collection, focal mass effect or midline shift. Chronic mild parenchymal volume loss with commensurate prominence of the ventricles and sulci. No hydrocephalus. There is atherosclerotic calcification of the cavernous carotid arteries. The brainstem and cerebellum are unremarkable. The cerebellar tonsils are in normal position. There is old posttraumatic thickening/hematoma of the galea aponeurotica at the parietal region of the scalp. No calvarial fracture. The visualized paranasal sinuses are well aerated and without air-fluid levels. The mastoid air cells are clear. The superior ophthalmic veins are prominent, but this is unchanged compared to the multiple recent prior head CT exams. Otherwise, the orbits, globes and temporomandibular joints are unremarkable. CT/CT head/brain wo con IMPRESSION: * No new intracranial pathology compared to 02/28/2022. * Minimal residual hyperdensity along the right tentorium. The subdural hematoma was larger, more conspicuous on 02/19/2022. No new sites of intracranial hemorrhage.
--- NOTE | ~2022-03-20 | XR_ITS ---
EXAMINATION: XR CHEST CLINICAL INFORMATION: Chest pain COMPARISON: Chest x-ray on 03/08/2022 TECHNIQUE: Frontal view of the chest was obtained. FINDINGS: Cardiomediastinal silhouette is stable. Redemonstration of bilateral diffuse airspace disease. No large pleural effusions. No pneumothorax. XR/XR chest 1V IMPRESSION: Stable bilateral diffuse airspace disease.
[2022-03-20 13:44] VITALS: BP 138/50; BP 167/76; PULSE 53; RESP 15; TEMP 37.1; O2SAT 95; O2SAT 97; BMI 32.2
--- NOTE | 2022-03-20 13:44 | ECG_ITS ---
Test Reason : CHEST PAIN Blood Pressure : / mmHG Vent. Rate : 052 BPM Atrial Rate : 052 BPM P-R Int : 200 ms QRS Dur : 120 ms QT Int : 474 ms P-R-T Axes : 038 -38 041 degrees QTc Int : 440 ms Sinus bradycardia Left axis deviation Non-specific intra-ventricular conduction delay Minimal voltage criteria for LVH, may be normal variant ( [place] product ) Abnormal ECG When compared with ECG of 26-FEB-2022 09:12, Vent. rate has decreased BY 38 BPM Referred By: Waqas Galindo Electronically Signed By:GERSON SNYDER MD
--- NOTE | 2022-03-20 13:52 | ED.AMS ---
HPI - Altered Mental Status General Chief Complaint: Altered Mental Status Stated Complaint: ? UTI PER SNF Time Seen by Provider: 03/20/22 13:43 Source: EMS Mode of arrival: EMS Limitations: altered mental status History of Present Illness HPI narrative: This is a 61 years old male shelter resident, sent here for mental status changes, he has history of cirrhosis of the liver, hepatic encephalopathy, dementia, schizophrenia, pneumonia and right tentorial subdural. There is no vomiting no diarrhea no fever. Patient is unable to give a history. Patient was discharged from [facility] on March 15 after been no specialized for hepatic encephalopathy/a pneumonia/right tentorial subdural hematoma MD complaint: altered mental status and confusion Onset (ago): day(s) (1) Timing confirmed by: caregiver Severity: moderate Consistency of symptoms: constant Context: history of similar presentation Related Data Home Medications Medication Instructions Recorded Confirmed benztropine 1 mg tablet 1 mg PO BID 11/18/20 02/19/22 carbidopa 25 mg-levodopa 100 mg 1 tab PO QID 11/18/20 02/19/22 tablet (Sinemet) fluphenazine decanoate 25 mg/mL 50 mg SUBCUT Q14D 11/18/20 02/19/22 injection solution loratadine 10 mg tablet 10 mg PO DAILY 11/18/20 02/19/22 miconazole nitrate 2 % topical 1 spray TOPICAL BID PRN 11/18/20 02/19/22 spray (Lotrimin AF) tramadol 50 mg tablet 50 mg PO BID 11/18/20 02/19/22 docusate sodium 100 mg tablet 100 mg PO DAILY PRN 12/10/20 02/19/22 sennosides 8.6 mg tablet (senna) 8.6 mg PO DAILY PRN 12/10/20 02/19/22 ziprasidone HCl 20 mg capsule 20 mg PO DAILY@1800 12/10/20 02/19/22 amlodipine 10 mg tablet 1 tab PO BEDTIME 02/19/22 02/19/22 gabapentin 600 mg tablet 2 tab PO TID 02/19/22 02/19/22 levothyroxine 25 mcg tablet 1 tab PO DAILY 02/19/22 02/19/22 multivitamin 1 tab PO DAILY 02/19/22 02/19/22 rifaximin 550 mg tablet (Xifaxan) 1 tab PO BID 02/19/22 02/19/22 Previous Rx's Medication Instructions Recorded amoxicillin 875 mg-potassium 875 mg PO Q12H #8 tab 03/14/22 clavulanate 125 mg tablet lactulose 20 gram/30 mL oral 20 g (30 mL) PO Q2D #1500 ml 03/14/22 solution metoprolol tartrate 25 mg tablet 25 mg G-TUBE BID #30 tab 03/14/22 Allergies Allergy/AdvReac Type Severity Reaction Status Date / Time pollen extracts Allergy Unknown Verified 03/20/22 13:42 ragweed pollen Allergy Unknown Verified 03/20/22 13:42 Review of Systems Constitutional: Constitutional: Reports no additional constitutional complaints, Denies chills and Denies fever(s) ENT: Reports system reviewed and no additional complaints, except as documented Cardiovascular: Cardiovascular: Reports no additional cardiovascular complaints Respiratory: Respiratory: Reports no additional respiratory complaints Gastrointestinal: Gastrointestinal: Reports no additional gastrointestinal complaints, Denies diarrhea, Denies vomiting and Denies hematemesis [facility] Past Medical History Medical History (Updated 03/20/22 @ 15:34 by Waqas Galindo MD) Abnormal findings on diagnostic imaging of liver and biliary tract Acute kidney failure, unspecified Acute respiratory failure with hypoxia Alcohol abuse, uncomplicated Allergic rhinitis due to pollen Ataxia Cannabis use, unspecified, uncomplicated Chronic kidney disease, stage 3 unspecified Cocaine abuse, uncomplicated Dementia Dementia in other diseases classified elsewhere with behavioral disturbance Diabetes Disorder of urea cycle metabolism, unspecified Drug abuse, cocaine type Dysphagia, oral phase Dysphagia, oropharyngeal phase Essential (primary) hypertension Essential tremor ETOH abuse Hepatic failure, unspecified without coma Hepatomegaly, not elsewhere classified Hereditary and idiopathic neuropathy, unspecified Hereditary ataxia, unspecified Hyperosmolality and hypernatremia Mild cognitive impairment, so stated Muscle weakness (generalized) Myopia, bilateral Orthostatic hypotension Osteophyte, unspecified joint Other chronic allergic conjunctivitis Other lack of coordination Other pancytopenia Other specified eating disorder Other speech disturbances Pain in unspecified shoulder Parkinson disease Pneumonitis due to inhalation of food and vomit Repeated falls Schizophrenia Sepsis, unspecified organism Tinea pedis Traumatic subdural hemorrhage without loss of consciousness, subsequent encounter Type 2 diabetes mellitus with diabetic polyneuropathy Unspecified dementia with behavioral disturbance Unsteadiness on feet Family History Family History Other Hypertension Social History Social History Household Members: Unknown / Unable to assess Household Members Other:: Other residents Housing: Other Housing Other:: [facility] Do you presently have visiting nurse or other home services: Yes Unable to assess alcohol history related to: Unable to respond Alcohol intake: former Patient Tobacco Use Status: Former Tobacco user Cigarettes Per Day: 1 Second Hand Smoke Exposure: No Advance Directives: No Advance Directives Information Provided: No service: No ([employer]) Current occupational status: disabled Physical Exam ED Vital Signs: Vital Signs - 24 hr 03/20/22 13:44 03/20/22 14:42 Temperature 98.8 F Pulse Rate 53 51 Respiratory Rate 15 14 Blood Pressure 138/50 L Pulse Oximetry 95 BMI result Body Mass Index 32.2 Const General: cooperative and no acute distress Nutritional Appearance: average body habitus HENMT Head: Yes normal to inspection General nose exam: Normal external nose present Face and sinus: Yes normal facial exam Mouth: Normal oral and palatal mucosa present Throat: Yes posterior oropharynx normal Neck Neck: Yes normal visual inspection and Yes full ROM Chest Chest palpation & inspection: normal inspection of the chest Resp Effort & Inspection: normal respiratory effort and able to speak in complete sentences Auscultation: clear to auscultation bilaterally Cardio Jugular venous distension: no JVD Rate: regular rate Rhythm: regular rhythm GI Inspection: Yes normal to inspection Palpation (GI): Soft to palpation, not firm, nontender, no guarding and not rigid Skin General skin exam: no rashes or lesions noted and turgor normal Neuro Other: He is awake and alert he looks around , follows simple command, he is disoriented x3 Course Reevaluation(s) Reevaluation #1: Labs showed chronic anemia, chronic renal failure, CT scan of the head that shows that the subdural is improved , I called the nursing facility they tell me that the patient mental status is different from the baseline, is much more lethargic. I think this could be also due to polypharmacy the patient should be off of tramadol/gabapentin he was discharged to the NH with the above medication as well. At this point will admit the patient for observation we will hold the tramadol and gabapentin we will give him IV fluids. I spoke with the hospitalist who accepted the patient. CXR noted however pt is afebrile,normal wbc no cough, so I do not think we need AB MDM - Altered Mental Status Lab Data Attestation: I reviewed the patient's lab results. Result diagrams: 03/20/22 14:07 03/20/22 14:07 Labs: Lab Results 03/20/22 03/20/22 03/20/22 Range/Units 14:07 14:07 14:07 WBC 4.1 L (4.8-10.8) X10*3/uL RBC 2.50 L (4.60-5.80) X10*6/uL Hgb 7.5 L (14.0-18.0) g/dl Hct 23.5 L (42.0-52.0) % MCV 94.0 (80.0-98.0) fL MCH 30.0 (27.0-33.0) pg MCHC 31.9 (31.0-36.0) g/dl RDW 16.5 H (11.0-16.0) % Plt Count 102 L (160-400) X10*3/uL MPV 10.1 (9.4-12.4) fL Immature Gran % (Auto) 0.2 (0.0-0.4) % Neut % (Auto) 56.7 (45-73) % Lymph % (Auto) 28.3 (20-40) % Benzie % (Auto) 10.7 (2-11) % Eos % (Auto) 3.9 (0-4) % Baso % (Auto) 0.2 (0-2) % Lymph # (Auto) 1.2 (1.2-4.9) X10*3/uL Benzie # (Auto) 0.4 (0.1-1.2) X10*3/uL Eos # (Auto) 0.2 (0.0-0.4) X10*3/uL Baso # (Auto) 0.0 (0.0-0.2) X10*3/uL Abs Immat Gran (auto) 0.01 (0.00-0.03) X10*3/uL Absolute Neuts (auto) 2.3 (2.0-8.3) x10*3/uL Absolute Nucleated RBC 0.000 (0.0-0.012) X10*3/uL Nucleated RBC % (auto) 0.0 (0.0-0.2) /100WBC PT 16.3 H (9.9-13.0) SEC INR 1.4 H (0.9-1.1) Sodium (135-145) mmol/L Potassium (3.3-5.1) mmol/L Chloride (96-108) mmol/L Carbon Dioxide (22-29) mmol/L Anion Gap (12-20) BUN (9-16) mg/dL Creatinine (0.5-1.4) mg/dL Estim Creat Clear Calc Estimated GFR Random Glucose (60-115) mg/dL Calcium (8.4-10.2) mg/dL Total Bilirubin (0.0-1.0) mg/dL AST (5-37) U/L ALT (0-40) U/L Alkaline Phosphatase (39-117) U/L Ammonia 28 (13-55) umol/L Troponin I High Sens (<3.5-35.0) ng/L Total Protein (6.5-8.0) g/dL Albumin (3.5-5.0) g/dL Urine Color Urine Appearance Urine pH (5.0-8.0) Ur Specific [place] (1.005-1.025) Urine Protein (NEG-TRACE) MG/DL Urine Glucose (UA) (NEG) MG/DL Urine Ketones (NEG) MG/DL Urine Blood (NEG) Urine Nitrite (NEG) Ur Leukocyte Esterase (NEG) Urine RBC (0) /HPF Urine WBC (0-4) /HPF Ur Squamous Epith Cells /LPF Urine Bacteria /LPF Hyaline Casts /LPF COVID-19 ([facility]) (Negative) COVID-19 Clin Com 03/20/22 03/20/22 03/20/22 Range/Units 14:07 14:07 14:08 WBC (4.8-10.8) X10*3/uL RBC (4.60-5.80) X10*6/uL Hgb (14.0-18.0) g/dl Hct (42.0-52.0) % MCV (80.0-98.0) fL MCH (27.0-33.0) pg MCHC (31.0-36.0) g/dl RDW (11.0-16.0) % Plt Count (160-400) X10*3/uL MPV (9.4-12.4) fL Immature Gran % (Auto) (0.0-0.4) % Neut % (Auto) (45-73) % Lymph % (Auto) (20-40) % Benzie % (Auto) (2-11) % Eos % (Auto) (0-4) % Baso % (Auto) (0-2) % Lymph # (Auto) (1.2-4.9) X10*3/uL Benzie # (Auto) (0.1-1.2) X10*3/uL Eos # (Auto) (0.0-0.4) X10*3/uL Baso # (Auto) (0.0-0.2) X10*3/uL Abs Immat Gran (auto) (0.00-0.03) X10*3/uL Absolute Neuts (auto) (2.0-8.3) x10*3/uL Absolute Nucleated RBC (0.0-0.012) X10*3/uL Nucleated RBC % (auto) (0.0-0.2) /100WBC PT (9.9-13.0) SEC INR (0.9-1.1) Sodium 136 (135-145) mmol/L Potassium 4.9 D (3.3-5.1) mmol/L Chloride 107 (96-108) mmol/L Carbon Dioxide 21 L (22-29) mmol/L Anion Gap 13 (12-20) BUN 30 H (9-16) mg/dL Creatinine 2.06 H (0.5-1.4) mg/dL Estim Creat Clear Calc 43.8 Estimated GFR 33 Random Glucose 177 H (60-115) mg/dL Calcium 8.3 L (8.4-10.2) mg/dL Total Bilirubin 1.4 H (0.0-1.0) mg/dL AST 28 D (5-37) U/L ALT 7 (0-40) U/L Alkaline Phosphatase 77 (39-117) U/L Ammonia (13-55) umol/L Troponin I High Sens 26.9 (<3.5-35.0) ng/L Total Protein 5.8 L (6.5-8.0) g/dL Albumin 2.6 L (3.5-5.0) g/dL Urine Color Urine Appearance Urine pH (5.0-8.0) Ur Specific [place] (1.005-1.025) Urine Protein (NEG-TRACE) MG/DL Urine Glucose (UA) (NEG) MG/DL Urine Ketones (NEG) MG/DL Urine Blood (NEG) Urine Nitrite (NEG) Ur Leukocyte Esterase (NEG) Urine RBC (0) /HPF Urine WBC (0-4) /HPF Ur Squamous Epith Cells /LPF Urine Bacteria /LPF Hyaline Casts /LPF COVID-19 ([facility]) Negative (Negative) COVID-19 Clin Com See Note 03/20/22 Range/Units 15:02 WBC (4.8-10.8) X10*3/uL RBC (4.60-5.80) X10*6/uL Hgb (14.0-18.0) g/dl Hct (42.0-52.0) % MCV (80.0-98.0) fL MCH (27.0-33.0) pg MCHC (31.0-36.0) g/dl RDW (11.0-16.0) % Plt Count (160-400) X10*3/uL MPV (9.4-12.4) fL Immature Gran % (Auto) (0.0-0.4) % Neut % (Auto) (45-73) % Lymph % (Auto) (20-40) % [place] % (Auto) (2-11) % Eos % (Auto) (0-4) % Baso % (Auto) (0-2) % Lymph # (Auto) (1.2-4.9) X10*3/uL [place]zie # (Auto) (0.1-1.2) X10*3/uL Eos # (Auto) (0.0-0.4) X10*3/uL Baso # (Auto) (0.0-0.2) X10*3/uL Abs Immat Gran (auto) (0.00-0.03) X10*3/uL Absolute Neuts (auto) (2.0-8.3) x10*3/uL Absolute Nucleated RBC (0.0-0.012) X10*3/uL Nucleated RBC % (auto) (0.0-0.2) /100WBC PT (9.9-13.0) SEC INR (0.9-1.1) Sodium (135-145) mmol/L Potassium (3.3-5.1) mmol/L Chloride (96-108) mmol/L Carbon Dioxide (22-29) mmol/L Anion Gap (12-20) BUN (9-16) mg/dL Creatinine (0.5-1.4) mg/dL Estim Creat Clear Calc Estimated GFR Random Glucose (60-115) mg/dL Calcium (8.4-10.2) mg/dL Total Bilirubin (0.0-1.0) mg/dL AST (5-37) U/L ALT (0-40) U/L Alkaline Phosphatase (39-117) U/L Ammonia (13-55) umol/L Troponin I High Sens (<3.5-35.0) ng/L Total Protein (6.5-8.0) g/dL Albumin (3.5-5.0) g/dL Urine Color YELLOW Urine Appearance CLEAR Urine pH 6.0 (5.0-8.0) Ur Specific [place] 1.020 (1.005-1.025) Urine Protein 2+ H (NEG-TRACE) MG/DL Urine Glucose (UA) NEG (NEG) MG/DL Urine Ketones NEG (NEG) MG/DL Urine Blood NEG (NEG) Urine Nitrite NEG (NEG) Ur Leukocyte Esterase NEG (NEG) Urine RBC 1-4 (0) /HPF Urine WBC 0-2 (0-4) /HPF Ur Squamous Epith Cells NONE /LPF Urine Bacteria NONE /LPF Hyaline Casts 0-2 /LPF COVID-19 ([facility]) (Negative) COVID-19 Clin Com Imaging Data Chest x-ray: Radiologist's impression: CLINICAL INFORMATION: Chest pain COMPARISON: Chest x-ray on 03/08/2022 TECHNIQUE: Frontal view of the chest was obtained. FINDINGS: Cardiomediastinal silhouette is stable. Redemonstration of bilateral diffuse airspace disease. No large pleural effusions. No pneumothorax. XR/XR chest 1V IMPRESSION: Stable bilateral diffuse airspace disease. ? CT scan - head: Radiologist's impression: ritory infarction. There is minimal residual hyperdensity along the right tentorium. No recurrent intracranial hemorrhage. No extra-axial fluid collection, focal mass effect or midline shift. Chronic mild parenchymal volume loss with commensurate prominence of the ventricles and sulci. No hydrocephalus. There is atherosclerotic calcification of the cavernous carotid arteries. The brainstem and cerebellum are unremarkable. The cerebellar tonsils are in normal position. There is old posttraumatic thickening/hematoma of the [place]alea aponeurotica at the parietal region of the scalp. No calvarial fracture. The visualized paranasal sinuses are well aerated and without air-fluid levels. The mastoid air cells are clear. The superior ophthalmic veins are prominent, but this is unchanged compared to the multiple recent prior head CT exams. Otherwise, the orbits, globes and temporomandibular joints are unremarkable. CT/CT head/brain wo con IMPRESSION: *? No new intracranial pathology compared to 02/28/2022. *? Minimal residual hyperdensity along the right tentorium. The subdural hematoma was larger, more conspicuous on 02/19/2022. No new sites of intracranial hemorrhage. ECG Data ECG #1: Pacemaker model: Normal sinus rhythm a rate is 52 intraventricular conduction delay Discharge Plan Discharge Clinical Impression: Altered mental status Patient Disposition: Admitted As Inpatient
[2022-03-20 14:12] LABS: MANUAL DIFF FLAG NO
--- NOTE | 2022-03-20 14:12 | PC.NURSE ---
pt oriented to self, increased confusion at baseline per [facility], vss, +1 bilateral lower extremity edema, pale and waxy skin. labs drawn by tech, pt to CT.
[2022-03-20 14:14] LABS: Basophils Percent Auto 0.2 % (0-2); Eosinophils Absolute Auto 0.2 X10*3/uL (0.0-0.4); Eosinophils Percent Auto 3.9 % (0-4); Hematocrit 23.5 % (42.0-52.0); Hemoglobin 7.5 g/dl (14.0-18.0); Imm Gran Abs Auto 0.01 X10*3/uL (0.00-0.03); Imm Gran Pct Auto 0.2 % (0.0-0.4); Lymphocytes Absolute Auto 1.2 X10*3/uL (1.2-4.9); Lymphocytes Percent Auto 28.3 % (20-40); Mean Corpuscular HGB Conc 31.9 g/dl (31.0-36.0); Mean Platelet Volume 10.1 fL (9.4-12.4); Monocytes Absolute Auto 0.4 X10*3/uL (0.1-1.2); Monocytes Percent Auto 10.7 % (2-11); Neutrophils Absolute Auto 2.3 x10*3/uL (2.0-8.3); Neutrophils Percent Auto 56.7 % (45-73); Platelet Count 102 X10*3/uL (160-400); Red Cell Distribution Width 16.5 % (11.0-16.0); White Blood Count 4.1 X10*3/uL (4.8-10.8)
[2022-03-20 14:19] LABS: INTERNATIONAL NORM RATIO 1.4 (0.9-1.1); Prothrombin Time 16.3 SEC (9.9-13.0)
[2022-03-20 14:21] LABS: Ammonia 28 umol/L (13-55)
[2022-03-20 14:31] LABS: COVID-19 Test Negative (Negative)
[2022-03-20 14:32] LABS: Alanine Aminotransferase 7 U/L (0-40); Albumin Level 2.6 g/dL (3.5-5.0); Alkaline Phosphatase 77 U/L (39-117); Anion Gap 13 (12-20); Aspartate Amino Transferase 28 U/L (5-37); Bilirubin Total 1.4 mg/dL (0.0-1.0); Blood Urea Nitrogen 30 mg/dL (9-16); Calcium 8.3 mg/dL (8.4-10.2); Carbon Dioxide 21 mmol/L (22-29); Chloride 107 mmol/L (96-108); Creatinine Clr Calc Pharmacy 43.8; Estimated Glomerular Filt Rate 33; Glucose Random 177 mg/dL (60-115); Potassium 4.9 mmol/L (3.3-5.1); Sodium 136 mmol/L (135-145); Total Protein 5.8 g/dL (6.5-8.0)
[2022-03-20 14:33] LABS: Troponin-I High Sensitivity 26.9 ng/L (<3.5-35.0)
[2022-03-20 14:42] VITALS: PULSE 51; RESP 14
--- NOTE | 2022-03-20 14:43 | PC.NURSE ---
20G IV placed left hand, pt changed, brief removed - soiled w stool.
[2022-03-20 15:19] LABS: Appearance Urine CLEAR; Color Urine YELLOW; Glucose Urine UA NEG (NEG); Leukocyte Esterase Urine NEG (NEG); Nitrite Urine NEG (NEG); UACC Culture Trigger NO; Urine Blood NEG (NEG); Urine Ketones NEG (NEG); Urine Protein 2+ MG/DL (NEG-TRACE)
[2022-03-20 15:32] LABS: Hyaline Casts Urine 0-2 /LPF; WBC Urine 0-2 /HPF (0-4)
[2022-03-20] MEDS: 0.9 % Sodium Chloride 1,000 ML 999 ML IVCONT (15:34)
--- NOTE | 2022-03-20 15:41 | P.HPHOSP_ITS ---
History of Present Illness Date of Service: 03/20/22 Chief Complaint: Encephalopathy A 61 years old male with PMH of CKD stage 3, dementia, cirrhosis, HTN, Parkinson, schizophrenia, among others who presents to the hospital from [facility] for worsening encephalopathy. The patient unable to give any meaningful history but denies any pain, headache, fever, chills, chest pain or shortness of breath, abdominal pain or change in bowel habit or any urinary symptoms. He was discharged from [facility] on March 15 after being treated for pneumonia, hepatic encephalopathy and subdural hematoma. Repeated CT scan today showed improvement in the hematoma with no acute findings. Blood work done in the emergency within his baseline. Admitted for further evaluation and treatment. Review of Systems Review of Systems: No fever, chills or weakness No chest pain, palpitation No shortness of breath or coughing but having edema No abdominal pain, nausea or vomiting No urinary symptoms No reported wounds PMFSH Medical History Abnormal findings on diagnostic imaging of liver and biliary tract Acute kidney failure, unspecified Acute respiratory failure with hypoxia Alcohol abuse, uncomplicated Allergic rhinitis due to pollen Ataxia Cannabis use, unspecified, uncomplicated Chronic kidney disease, stage 3 unspecified Cocaine abuse, uncomplicated Dementia Dementia in other diseases classified elsewhere with behavioral disturbance Diabetes Disorder of urea cycle metabolism, unspecified Drug abuse, cocaine type Dysphagia, oral phase Dysphagia, oropharyngeal phase Essential (primary) hypertension Essential tremor ETOH abuse Hepatic failure, unspecified without coma Hepatomegaly, not elsewhere classified Hereditary and idiopathic neuropathy, unspecified Hereditary ataxia, unspecified Hyperosmolality and hypernatremia Mild cognitive impairment, so stated Muscle weakness (generalized) Myopia, bilateral Orthostatic hypotension Osteophyte, unspecified joint Other chronic allergic conjunctivitis Other lack of coordination Other pancytopenia Other specified eating disorder Other speech disturbances Pain in unspecified shoulder Parkinson disease Pneumonitis due to inhalation of food and vomit Repeated falls Schizophrenia Sepsis, unspecified organism Tinea pedis Traumatic subdural hemorrhage without loss of consciousness, subsequent encounter Type 2 diabetes mellitus with diabetic polyneuropathy Unspecified dementia with behavioral disturbance Unsteadiness on feet Family History Other Hypertension Social History Household Members: Other Household Members Other:: Other residents Housing: Senior Living Housing Other:: [facility] Do you presently have visiting nurse or other home services: No Unable to assess alcohol history related to: Unknown Alcohol intake: former Patient Tobacco Use Status: Former Tobacco user Cigarettes Per Day: 1 Second Hand Smoke Exposure: No service: No (navClientShow) Current occupational status: disabled Meds Allergies Allergy/AdvReac Type Severity Reaction Status Date / Time pollen extracts Allergy Unknown Verified 03/20/22 13:42 ragweed pollen Allergy Unknown Verified 03/20/22 13:42 Active Medications: Current Medications Sodium Chloride (Ns) 1,000 mls @ 999 mls/hr IVCONT .Q1H1M ANDREY Stop: 03/20/22 16:15 Last Admin: 03/20/22 15:34 Dose: 999 mls/hr Documented by: Pharmacy Consult (Consult Rx Perform Med Rec) 1 each MISCELLANE ONCE PRN PRN Reason: Consult order Home Medications Medication Instructions Recorded Confirmed Last Taken Type benztropine 1 mg tablet 1 mg PO BID 11/18/20 03/20/22 Unknown History carbidopa 25 mg-levodopa 100 mg 1 tab PO QID 11/18/20 03/20/22 Unknown History tablet (Sinemet) fluphenazine decanoate 25 mg/mL 50 mg SUBCUT Q14D 11/18/20 03/20/22 03/16/22 His tory injection solution loratadine 10 mg tablet 10 mg PO DAILY 11/18/20 03/20/22 Unknown History miconazole nitrate 2 % topical 1 spray TOPICAL BID PRN 11/18/20 03/20/22 Unknown History spray (Lotrimin AF) tramadol 50 mg tablet 50 mg PO BID 11/18/20 03/20/22 Unknown History docusate sodium 100 mg tablet 100 mg PO BEDTIME 12/10/20 03/20/22 Unknown History sennosides 8.6 mg tablet (senna) 8.6 mg PO DAILY PRN 12/10/20 03/20/22 Unknown History ziprasidone HCl 20 mg capsule 20 mg PO DAILY@1800 12/10/20 03/20/22 Unknown History amlodipine 10 mg tablet 10 mg PO BEDTIME 02/19/22 03/20/22 Unknown History gabapentin 600 mg tablet 1,200 mg PO TID 02/19/22 03/20/22 Unknown History levothyroxine 25 mcg tablet 25 mcg PO DAILY@0600 02/19/22 03/20/22 Unknown History multivitamin 1 tab PO DAILY 02/19/22 03/20/22 Unknown History rifaximin 550 mg tablet (Xifaxan) 1 tab PO BID 02/19/22 03/20/22 Unknown History Calazime Skin Protectant 1 applic TOPICAL QSHIFT 03/20/22 03/20/22 Unknown History acetaminophen 325 mg tablet 650 mg PO Q4H PRN 03/20/22 03/20/22 Unknown History bisacodyl 10 mg rectal suppository 10 mg WA DAILY PRN 03/20/22 03/20/22 Unknown History guaifenesin 100 mg/5 mL oral liquid 200 mg PO Q4H PRN 03/20/22 03/20/22 Unknown History insulin detemir U-100 100 unit/mL 25 unit SUBCUT DAILY 03/20/22 03/20/22 Unknown History (3 mL) subcutaneous pen (Levemir FlexTouch U-100 Insulin) lactulose 20 gram/30 mL oral 20 g PO DAILY 03/20/22 03/20/22 Unknown History solution metoprolol tartrate 25 mg tablet 25 mg PO BID 03/20/22 03/20/22 Unknown History sennosides 8.6 mg tablet (senna) 8.6 mg PO DAILY 03/20/22 03/20/22 Unknown H istory Physical Exam Vital Signs and Narrative: Vital Signs: Last Vital Signs Temp 98.8 F 03/20/22 13:44 Pulse 51 03/20/22 14:42 Resp 14 03/20/22 14:42 BP 138/50 L 03/20/22 13:44 Pulse Ox 95 03/20/22 13:44 BMI result Body Mass Index 32.2 Const: Other: Constitutional : Alert, interactive, mildly anxious Neck : Normal inspection, Supple Cardiovascular : RRR, no JVP, +2 bilateral lower extremity edema Respiratory : fair bilateral air entry, no crackles, wheezes or rhonchi Gastrointestinal: soft, lax, Normal bowel sounds, Non tender Skin : Warm, Dry Neurological : Alert & disoriented about time and place No focal deficit Results Labs CBC and Chem 7: 03/21/22 05:55 03/21/22 05:55 Labs: Laboratory Results - last 24 hr 05/08/22 05/08/22 05/08/22 14:07 14:07 14:07 MCV 94.0 MCH 30.0 MCHC 31.9 RDW 16.5 H Plt Count 102 L MPV 10.1 Immature Gran % (Auto) 0.2 Neut % (Auto) 56.7 Lymph % (Auto) 28.3 Garza % (Auto) 10.7 Eos % (Auto) 3.9 Baso % (Auto) 0.2 Lymph # (Auto) 1.2 Garza # (Auto) 0.4 Eos # (Auto) 0.2 Baso # (Auto) 0.0 Abs Immat Gran (auto) 0.01 Absolute Neuts (auto) 2.3 Absolute Nucleated RBC 0.000 Nucleated RBC % (auto) 0.0 PT 16.3 H INR 1.4 H Anion Gap Estim Creat Clear Calc Estimated GFR Random Glucose Calcium Total Bilirubin AST ALT Alkaline Phosphatase Ammonia 28 Troponin I High Sens Total Protein Albumin Urine Color Urine Appearance Urine pH Ur Specific [place] Urine Protein Urine Glucose (UA) Urine Ketones Urine Blood Urine Nitrite Ur Leukocyte Esterase Urine RBC Urine WBC Ur Squamous Epith Cells Urine Bacteria Hyaline Casts COVID-19 (JAS) COVID-19 Clin Com 03/20/22 03/20/22 03/20/22 14:07 14:07 14:08 MCV MCH MCHC RDW Plt Count MPV Immature Gran % (Auto) Neut % (Auto) Lymph % (Auto) Garza % (Auto) Eos % (Auto) Baso % (Auto) Lymph # (Auto) Garza # (Auto) Eos # (Auto) Baso # (Auto) Abs Immat Gran (auto) Absolute Neuts (auto) Absolute Nucleated RBC Nucleated RBC % (auto) PT INR Anion Gap 13 Estim Creat Clear Calc 43.8 Estimated GFR 33 Random Glucose 177 H Calcium 8.3 L Total Bilirubin 1.4 H AST 28 D ALT 7 Alkaline Phosphatase 77 Ammonia Troponin I High Sens 26.9 Total Protein 5.8 L Albumin 2.6 L Urine Color Urine Appearance Urine pH Ur Specific [place] Urine Protein Urine Glucose (UA) Urine Ketones Urine Blood Urine Nitrite Ur Leukocyte Esterase Urine RBC Urine WBC Ur Squamous Epith Cells Urine Bacteria Hyaline Casts COVID-19 (JAS) Negative COVID-19 Clin Com See Note 03/20/22 15:02 MCV MCH MCHC RDW Plt Count MPV Immature Gran % (Auto) Neut % (Auto) Lymph % (Auto) Garza % (Auto) Eos % (Auto) Baso % (Auto) Lymph # (Auto) Garza # (Auto) Eos # (Auto) Baso # (Auto) Abs Immat Gran (auto) Absolute Neuts (auto) Absolute Nucleated RBC Nucleated RBC % (auto) PT INR Anion Gap Estim Creat Clear Calc Estimated GFR Random Glucose Calcium Total Bilirubin AST ALT Alkaline Phosphatase Ammonia Troponin I High Sens Total Protein Albumin Urine Color YELLOW Urine Appearance CLEAR Urine pH 6.0 Ur Specific [place] 1.020 Urine Protein 2+ H Urine Glucose (UA) NEG Urine Ketones NEG Urine Blood NEG Urine Nitrite NEG Ur Leukocyte Esterase NEG Urine RBC 1-4 Urine WBC 0-2 Ur Squamous Epith Cells NONE Urine Bacteria NONE Hyaline Casts 0-2 COVID-19 (JAS) COVID-19 Clin Com Imaging Radiologist's Impressions: Impressions Chest X-Ray 03/20/22 14:23 IMPRESSION: Stable bilateral diffuse airspace disease. Head CT 03/20/22 14:32 IMPRESSION: * No new intracranial pathology compared to 02/28/2022. * Minimal residual hyperdensity along the right tentorium. The subdural hematoma was larger, more conspicuous on 02/19/2022. No new sites of intracranial hemorrhage. Assessment and Plan (1) Toxic metabolic encephalopathy: Status: Acute (2) Hypervolemia: Status: Acute (3) Agitation: Status: Acute (4) Acute on chronic anemia: Status: Acute Plan A 61 years old male with PMH of CKD stage 3, dementia, cirrhosis, HTN, Parkinson, schizophrenia, among others who presents to the hospital from [facility] for worsening encephalopathy. Toxic metabolic encephalopathy Seems to be secondary to general deconditioning and home medications Hold gabapentin, loratadine and tramadol for now Recurrent redirection Uncontrolled hypertension Secondary to being NPO unable to take his home medication To give hydralazine IV now and p.r.n. as needed Agitation Required medical control with Haldol and Ativan to use Haldol as needed Recurrent treated reaction and start home medication as soon as possible consider psych evaluation Acute on chronic anemia No clear source of bleeding identified Hemoglobin dropped to 6.9 from baseline above 7.5 to give a unit of blood To check occult stool Monitor H and H Fluid overload Secondary to history of cirrhosis to give Lasix Monitor intake and output Parkinson continue Sinemet and benztropine CKD stage 3 Stable disease Monitor creatinine Schizophrenia On fluphenazine Q 14 days Continue s Ziprasidone 20 mg daily Get psychiatry evaluation DVT PPX SCDs The patient will need possible 2 night hospital stay for evaluation of e ncephalopathy and treatment of fluid overload. Quality Stroke Does the patient have a stroke diagnosis?: No VTE Prior VTE?: No VTE Risk Level:: Medical - moderate - high VTE Device Contraindication: Treatment Not Indicated VTE Drug Contraindication: N/A - Med Ordered
[2022-03-20 16:15] LABS: B Type Natriuretic Peptide 1210 pg/mL (<100)
[2022-03-20] MEDS: Furosemide 20 MG/2 ML VIAL IVPUSH (16:18)
[2022-03-20] MEDS: Enoxaparin Sodium 30 MG/0.3 ML SYRINGE SUBCUT (16:19)
[2022-03-20] MEDS: 0.9 % Sodium Chloride Flush 3 ML SYRINGE IVFLUSH (16:24)
--- NOTE | 2022-03-20 16:24 | PC.NURSE ---
flds discontinued, medicated per provider order.
[2022-03-20 16:26] VITALS: BP 139/79; PULSE 54; RESP 14; O2SAT 96
--- NOTE | 2022-03-20 16:31 | PHA.MEDREC ---
MED REC COMPLETE, NO ISSUES Pharmacy Consult ? Medication Reconciliation Pharmacy has completed the medication reconciliation.
--- NOTE | 2022-03-20 17:00 | P.EN_ITS ---
Event Note Date of Service: 03/20/22 Event Note: 61-year-old male well known to me from [facility]. .. Presenting for mental status changes. Exhibiting agitated features. Will give Haldol 5 mg IM and Ativan 1 mg IV at this time. (this is usual p.r.n. medication at [facility] save Ativan is IM as well).
[2022-03-20] MEDS: Haloperidol Lactate 5 MG/ML VIAL IM (17:10)
[2022-03-20] MEDS: LORazepam 2 MG/ML VIAL 1 MG IVPUSH (17:10)
--- NOTE | 2022-03-20 17:16 | PC.NURSE ---
patient disoriented, attempting to climb oob and swatting at staff who are attempting to keep him safe, patient also attempting to pull out iv- iv site was wrapped with sis in hopes to preserve the site. hospitalist who knows the patient outside [facility] [place] [place] came to evaluate patient, IV and IM medication was ordered to be given, pt was medicated per order, vitals and documentation are on medication restraint form.
--- NOTE | 2022-03-20 19:58 | PC.NURSE ---
pt urinated a large quantity in bed. pt clean and changed.
[2022-03-20 20:38] VITALS: BP 172/62; PULSE 67; RESP 18; O2SAT 96
--- NOTE | 2022-03-20 22:52 | PC.NURSE ---
brief soiled w stool, pt cleaned and changed.
[2022-03-21] VITALS (8 sets, daily range): BP systolic 109–199; BP diastolic 62–92; PULSE 63–77; RESP 14–20; TEMP 36.6–37.6; O2SAT 92–97; BMI 32.2
[2022-03-21] MEDS: Haloperidol Lactate 5 MG/ML VIAL IVPUSH (02:27)
[2022-03-21] MEDS: LORazepam 2 MG/ML VIAL 1 MG IVPUSH (03:35)
--- NOTE | 2022-03-21 04:23 | PC.NURSE ---
I assumed nursing care of Adilson at 2300. He has had a 1:1 since 2300 but that ended at 0300 as there was not sufficient staff for this. We placed an eye in the naresh camera in the room next to the patients' bed and kept the curtain open and his bed is near to and visible from the nurses' station. Adilson has been very active in his bed/restless since I assumed care - constantly pulling at cables and pulling off his hospital gown and kicking blankets off of himself. Babar MOSES was notified and additional Haldol and Ativan IVP were requested and given and the pt appears to be less restless and is now sleeping. Due to Ativan admin. I applied 2L nasal cannula once the pt was more relaxed and placed a continuous O2 monitor on him. his sats, on 2L, remain 95% or better. His RR is WNL and respirations are non-labored. His skin is pale/warm/dry. Pt is awaiting bed assignment. We will continue to monitor Adilson.
[2022-03-21 06:13] LABS: Hematocrit 21.7 % (42.0-52.0); Mean Corpuscular HGB Conc 31.8 g/dl (31.0-36.0); Mean Corpuscular Hemoglobin 30.1 pg (27.0-33.0); Mean Corpuscular Volume 94.8 fL (80.0-98.0); Mean Platelet Volume 10.9 fL (9.4-12.4); Red Blood Count 2.29 X10*6/uL (4.60-5.80); Red Cell Distribution Width 16.5 % (11.0-16.0); White Blood Count 3.5 X10*3/uL (4.8-10.8)
[2022-03-21 06:20] LABS: Platelet Count 83 X10*3/uL (160-400)
[2022-03-21 06:21] LABS: Hemoglobin 6.9 g/dl (14.0-18.0)
[2022-03-21 06:30] LABS: Anion Gap 11 (12-20); Blood Urea Nitrogen 30 mg/dL (9-16); Calcium 8.6 mg/dL (8.4-10.2); Carbon Dioxide 25 mmol/L (22-29); Chloride 107 mmol/L (96-108); Creatinine Clr Calc Pharmacy 46.8; Estimated Glomerular Filt Rate 35; Glucose Random 80 mg/dL (60-115); Sodium 138 mmol/L (135-145)
--- NOTE | 2022-03-21 07:17 | PC.NURSE ---
Addendum entered by Angella Moe RN 03/21/22 07:31: per dr. plsacencia, check occult with passage of BM possible need for 1 unit PRBC Original Note: informed dr. Plascencia of pt HGB at 6.9
[2022-03-21] MEDS: 0.9 % Sodium Chloride Flush 3 ML SYRINGE IVFLUSH ×3 (07:51→20:19)
--- NOTE | 2022-03-21 07:51 | PC.NURSE ---
titration trial to pt o2, pt on room air dropped to 89%. replaced pt on 2L NC
--- NOTE | 2022-03-21 09:00 | PC.NURSE ---
Addendum entered by Angella Moe RN 03/21/22 09:14: per . frank Plascencia to hold PO meds at this time given pt condition. Original Note: pt unable to verbalize needs. continues to attempt to pull off leslye/oxygen cannula. restless and agitated. removed pt from brief, pt dry at this time. eye in the naresh remains in use on the pt. informed MD of inability/unsafe standards to medication pt with PO medication at this time.
[2022-03-21] MEDS: Haloperidol Lactate 5 MG/ML VIAL 2.5 MG IM (12:57)
--- NOTE | 2022-03-21 13:06 | PC.NURSE ---
Patient has 1 unit of RBCs running, patient is restless, agitated and fighting staff, pulling out IV while the rbc's is running, doctor ordered haldol 2.5 mg IM, has been given to the patient.
[2022-03-21] MEDS: Gabapentin 100 MG CAPSULE 200 MG PO ×2 (13:47→20:19)
[2022-03-21] MEDS: Carbidopa/Levodopa 25/100 TABLET 1 TAB PO ×3 (13:47→20:19)
--- NOTE | 2022-03-21 15:01 | P.PNIM_ITS ---
Subjective Subjective Date of Service: 03/21/22 Review of Systems No fever, chills or weakness No chest pain, palpitation No shortness of breath or coughing but having edema No abdominal pain, nausea or vomiting No urinary symptoms No reported wounds Physical Exam Vital Signs: Vital Signs: Last Vital Signs Temp 99.6 F 03/21/22 14:31 Pulse 70 03/21/22 14:31 Resp 18 03/21/22 14:31 BP 199/78 H 03/21/22 14:31 Pulse Ox 94 03/21/22 12:00 BMI result Body Mass Index 32.2 Const: Other: Constitutional : Altered, not responding, agitated Neck : Normal inspection, Supple Cardiovascular : RRR, no JVP, +2 bilateral lower extremity edema Respiratory : fair bilateral air entry, no crackles, wheezes or rhonchi Gastrointestinal: soft, lax, Normal bowel sounds, Non tender Skin : Warm, Dry Neurological : Altered, cannot assess orientation, moving all extremities in agitation, No focal deficit Objective Data Active Medications Benztropine Mesylate (Benztropine Mesylate 1 Mg Tablet) 1 mg PO BID [facility] Last Admin: 03/21/22 09:06 Dose: Not Given Documented by: KYLE Non-Admin Reason: Patient Condition Contraindication Carbidopa/Levodopa (Carbidopa/Levodopa 25/100 Tablet) 1 tab PO QID [facility] Last Admin: 03/21/22 13:47 Dose: 1 tab Documented by: KRIS Gabapentin (Gabapentin 100 Mg Capsule) 200 mg PO TID [facility] Last Admin: 03/21/22 13:47 Dose: 200 mg Documented by: KRIS Hydralazine HCl (Hydralazine Hcl 20 Mg/Ml Vial) 5 mg IVPUSH Q6H PRN; Protocol PRN Reason: SBP >170 Levothyroxine Sodium (Levothyroxine Sodium 25 Mcg Tablet) 25 mcg PO DAILY@0600 [facility] Last Admin: 03/21/22 09:06 Dose: Not Given Documented by: KYLE Non-Admin Reason: Patient Condition Contraindication Metoprolol Tartrate (Metoprolol Tartrate 25 Mg Tablet) 25 mg PO BID [facility]; Protocol Last Admin: 03/21/22 09:06 Dose: Not Given Documented by: KYLE Non-Admin Reason: Patient Condition Contraindication Ondansetron HCl (Ondansetron Hcl 4 Mg/2 Ml Vial) 4 mg IVPUSH Q8H PRN PRN Reason: Nausea and Vomiting Pharmacy Consult (Consult Rx Perform Med Rec) 1 each MISCELLANE ONCE PRN PRN Reason: Consult order Sodium Chloride (0.9 % Sodium Chloride Flush 3 Ml Syringe) 3 ml IVFLUSH QSHIFT [facility] Last Admin: 03/21/22 07:51 Dose: 3 ml Documented by: KYLE Ziprasidone (Ziprasidone 20 Mg Capsule) 20 mg PO DAILY@1800 [facility] Labs CBC & Chem 7: 03/21/22 05:55 03/21/22 05:55 Labs: Laboratory Results - last 24 hr 03/20/22 03/20/22 03/21/22 14:08 15:02 05:55 MCV 94.8 MCH 30.1 MCHC 31.8 RDW 16.5 H Plt Count 83 L MPV 10.9 Absolute Nucleated RBC 0.000 Nucleated RBC % (auto) 0.0 Anion Gap Estim Creat Clear Calc Estimated GFR Random Glucose Calcium B-Natriuretic Peptide 1210 H Urine Color YELLOW Urine Appearance CLEAR Urine pH 6.0 Ur Specific [place] 1.020 Urine Protein 2+ H Urine Glucose (UA) NEG Urine Ketones NEG Urine Blood NEG Urine Nitrite NEG Ur Leukocyte Esterase NEG Urine RBC 1-4 Urine WBC 0-2 Ur Squamous Epith Cells NONE Urine Bacteria NONE Hyaline Casts 0-2 Blood Type Antibody Screen Crossmatch 03/21/22 03/21/22 05:55 08:48 MCV MCH MCHC RDW Plt Count MPV Absolute Nucleated RBC Nucleated RBC % (auto) Anion Gap 11 L Estim Creat Clear Calc 46.8 Estimated GFR 35 Random Glucose 80 D Calcium 8.6 B-Natriuretic Peptide Urine Color Urine Appearance Urine pH Ur Specific [place] Urine Protein Urine Glucose (UA) Urine Ketones Urine Blood Urine Nitrite Ur Leukocyte Esterase Urine RBC Urine WBC Ur Squamous Epith Cells Urine Bacteria Hyaline Casts Blood Type A Positive Antibody Screen NEGATIVE Crossmatch See Detail Assessment and Plan (1) Acute on chronic anemia: Status: Acute (2) Toxic metabolic encephalopathy: Status: Acute (3) Agitation: Status: Acute (4) Alcoholic cirrhosis of liver with ascites: Status: Acute Plan A 61 years old male with PMH of CKD stage 3, dementia, cirrhosis, HTN, Parkinson, schizophrenia, among others who presents to the hospital from [facility] for worsening encephalopathy. Toxic metabolic encephalopathy Seems to be secondary to general deconditioning and home medications Hold gabapentin, loratadine and tramadol for now Recurrent redirection Uncontrolled hypertension Secondary to being NPO unable to take his home medication To give hydralazine IV now and p.r.n. as needed Agitation Required medical control with Haldol and Ativan to use Haldol as needed Recurrent treated reaction and start home medication as soon as possible consider psych evaluation Acute on chronic anemia No clear source of bleeding identified Hemoglobin dropped to 6.9 from baseline above 7.5 to give a unit of blood To check occult stool Monitor H and H Fluid overload Secondary to history of cirrhosis to give Lasix Monitor intake and output Parkinson continue Sinemet and benztropine CKD stage 3 Stable disease Monitor creatinine Schizophrenia On fluphenazine Q 14 days Continue s Ziprasidone 20 mg daily Get psychiatry evaluation DVT PPX SCDs The patient will need possible 2 night hospital stay for evaluation of encephalopathy and treatment of fluid overload. Quality Stroke Does the patient have a stroke diagnosis?: No VTE Prior VTE?: No VTE Risk Level:: Medical - moderate - high VTE Device Contraindication: Treatment Not Indicated VTE Drug Contraindication: N/A - Med Ordered
[2022-03-21] MEDS: hydrALAZINE HCl 20 MG/ML VIAL 10 MG IVPUSH (15:16)
--- NOTE | 2022-03-21 15:32 | MHC.SLORD ---
Speech Language Pathology Order Status: Attempted to see patient for BSE this afternoon. Patient sleeping, lethargic. Spoke with RYAN Swanson. At this time, not appropriate for PO trials. Plan for BSE tomorrow if appropriate. Sent [place] to , RN, RD.
--- NOTE | 2022-03-21 15:45 | MHC.CM.PN ---
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 SHE REQUESTED IMM COPY BE FAXED TO [phone]. COPY FAXED DCP IS RETURN TO [facility]
--- NOTE | 2022-03-21 16:41 | HO.WOUNDCONS ---
History of Present Illness Data of Consult Service Date: 03/21/22 Requesting physician: Keshawn Plascencia Primary Care Provider: Unknown Physician HPI Reason for consult: left buttock ulcer [id number]: This is a 61-year-old male with a history of liver cirrhosis, alcoholism, agitation and toxic metabolic encephalopathy who was at [facility] and became more agitated. There is concern of a left buttock ulcer for which the wound care clinic is summoned. The duration of the ulcer is unclear and the patient is not cooperative in questioning. He is agitated currently a non cooperative. He has a sitter. Review of Systems Review of Systems: Yes Unobtainable due to mental status [facility] Medical History Abnormal findings on diagnostic imaging of liver and biliary tract Acute kidney failure, unspecified Acute respiratory failure with hypoxia Alcohol abuse, uncomplicated Allergic rhinitis due to pollen Ataxia Cannabis use, unspecified, uncomplicated Chronic kidney disease, stage 3 unspecified Cocaine abuse, uncomplicated Dementia Dementia in other diseases classified elsewhere with behavioral disturbance Diabetes Disorder of urea cycle metabolism, unspecified Drug abuse, cocaine type Dysphagia, oral phase Dysphagia, oropharyngeal phase Essential (primary) hypertension Essential tremor ETOH abuse Hepatic failure, unspecified without coma Hepatomegaly, not elsewhere classified Hereditary and idiopathic neuropathy, unspecified Hereditary ataxia, unspecified Hyperosmolality and hypernatremia Mild cognitive impairment, so stated Muscle weakness (generalized) Myopia, bilateral Orthostatic hypotension Osteophyte, unspecified joint Other chronic allergic conjunctivitis Other lack of coordination Other pancytopenia Other specified eating disorder Other speech disturbances Pain in unspecified shoulder Parkinson disease Pneumonitis due to inhalation of food and vomit Repeated falls Schizophrenia Sepsis, unspecified organism Tinea pedis Traumatic subdural hemorrhage without loss of consciousness, subsequent encounter Type 2 diabetes mellitus with diabetic polyneuropathy Unspecified dementia with behavioral disturbance Unsteadiness on feet Family History Other Hypertension Social History Household Members: Other Household Members Other:: Other residents Housing: Retirement Housing Other:: [facility] Do you presently have visiting nurse or other home services: No Unable to assess alcohol history related to: Unknown Alcohol intake: former Patient Tobacco Use Status: Former Tobacco user Cigarettes Per Day: 1 Second Hand Smoke Exposure: No service: No ([employer]) Current occupational status: disabled Meds Allergies Allergy/AdvReac Type Severity Reaction Status Date / Time pollen extracts Allergy Unknown Verified 03/20/22 13:42 ragweed pollen Allergy Unknown Verified 03/20/22 13:42 Active Medications: Current Medications Benztropine Mesylate (Benztropine Mesylate 1 Mg Tablet) 1 mg PO BID [facility] Last Admin: 03/21/22 09:06 Dose: Not Given Documented by: Carbidopa/Levodopa (Carbidopa/Levodopa 25/100 Tablet) 1 tab PO QID [facility] Last Admin: 03/21/22 13:47 Dose: 1 tab Documented by: Gabapentin (Gabapentin 100 Mg Capsule) 200 mg PO TID [facility] Last Admin: 03/21/22 13:47 Dose: 200 mg Documented by: Hydralazine HCl (Hydralazine Hcl 20 Mg/Ml Vial) 5 mg IVPUSH Q6H PRN; Protocol PRN Reason: SBP >170 Levothyroxine Sodium (Levothyroxine Sodium 25 Mcg Tablet) 25 mcg PO DAILY@0600 [facility] Last Admin: 03/21/22 09:06 Dose: Not Given Documented by: Lorazepam (Lorazepam 2 Mg/Ml Vial) 1 mg IVPUSH ONCE PRN PRN Reason: anxiety/restlessness Metoprolol Tartrate (Metoprolol Tartrate 25 Mg Tablet) 25 mg PO BID [facility]; Protocol Last Admin: 03/21/22 09:06 Dose: Not Given Documented by: Ondansetron HCl (Ondansetron Hcl 4 Mg/2 Ml Vial) 4 mg IVPUSH Q8H PRN PRN Reason: Nausea and Vomiting Pharmacy Consult (Consult Rx Perform Med Rec) 1 each MISCELLANE ONCE PRN PRN Reason: Consult order Sodium Chloride (0.9 % Sodium Chloride Flush 3 Ml Syringe) 3 ml IVFLUSH QSHIFT [facility] Last Admin: 03/21/22 07:51 Dose: 3 ml Documented by: Ziprasidone (Ziprasidone 20 Mg Capsule) 20 mg PO DAILY@1800 [facility] Home Medications Medication Instructions Recorded Confirmed Last Taken Type benztropine 1 mg tablet 1 mg PO BID 11/18/20 03/20/22 Unknown History carbidopa 25 mg-levodopa 100 mg 1 tab PO QID 11/18/20 03/20/22 Unknown History tablet (Sinemet) fluphenazine decanoate 25 mg/mL 50 mg SUBCUT Q14D 11/18/20 03/20/22 03/16/22 History injection solution loratadine 10 mg tablet 10 mg PO DAILY 11/18/20 03/20/22 Unknown History miconazole nitrate 2 % topical 1 spray TOPICAL BID PRN 11/18/20 03/20/22 Unknown History spray (Lotrimin AF) tramadol 50 mg tablet 50 mg PO BID 11/18/20 03/20/22 Unknown History docusate sodium 100 mg tablet 100 mg PO BEDTIME 12/10/20 03/20/22 Unknown History sennosides 8.6 mg tablet (senna) 8.6 mg PO DAILY PRN 12/10/20 03/20/22 Unknown History ziprasidone HCl 20 mg capsule 20 mg PO DAILY@1800 12/10/20 03/20/22 Unknown History amlodipine 10 mg tablet 10 mg PO BEDTIME 02/19/22 03/20/22 Unknown History gabapentin 600 mg tablet 1,200 mg PO TID 02/19/22 03/20/22 Unknown History levothyroxine 25 mcg tablet 25 mcg PO DAILY@0600 02/19/22 03/20/22 Unknown History multivitamin 1 tab PO DAILY 02/19/22 03/20/22 Unknown History rifaximin 550 mg tablet (Xifaxan) 1 tab PO BID 02/19/22 03/20/22 Unknown History Calazime Skin Protectant 1 applic TOPICAL QSHIFT 03/20/22 03/20/22 Unknown History acetaminophen 325 mg tablet 650 mg PO Q4H PRN 03/20/22 03/20/22 Unknown History bisacodyl 10 mg rectal suppository 10 mg IA DAILY PRN 03/20/22 03/20/22 Unknown History guaifenesin 100 mg/5 mL oral liquid 200 mg PO Q4H PRN 03/20/22 03/20/22 Unknown History insulin detemir U-100 100 unit/mL 25 unit SUBCUT DAILY 03/20/22 03/20/22 Unknown History (3 mL) subcutaneous pen (Levemir FlexTouch U-100 Insulin) lactulose 20 gram/30 mL oral 20 g PO DAILY 03/20/22 03/20/22 Unknown History solution metoprolol tartrate 25 mg tablet 25 mg PO BID 03/20/22 03/20/22 Unknown History sennosides 8.6 mg tablet (senna) 8.6 mg PO DAILY 03/20/22 03/20/22 Unknown History Physical Exam Vital Signs and Narrative: Vital Signs: Last Vital Signs Temp 99.6 F 03/21/22 15:36 Pulse 74 03/21/22 15:36 Resp 15 03/21/22 15:36 BP 171/63 H 03/21/22 15:36 Pulse Ox 96 03/21/22 15:36 BMI result Body Mass Index 32.2 The patient does not interact with the examiner or the sitter in the room. He is struggling with his hospital gown and trying to pull it over his head. His left buttock has a Allevyn foam which we are able to briefly remove in order to examine the wound. This is a 0.3 x 0.1 slit like ulcer with hypertrophic and sloughy edges. It is perfectly blanchable in does not show any signs of ischemic periwound. Results Labs CBC and Chem 7: 03/21/22 05:55 03/21/22 05:55 Labs: Laboratory Results - last 24 hr 03/21/22 03/21/22 03/21/22 05:55 05:55 08:48 MCV 94.8 MCH 30.1 MCHC 31.8 RDW 16.5 H Plt Count 83 L MPV 10.9 Absolute Nucleated RBC 0.000 Nucleated RBC % (auto) 0.0 Anion Gap 11 L Estim Creat Clear Calc 46.8 Estimated GFR 35 Random Glucose 80 D Calcium 8.6 Blood Type A Positive Antibody Screen NEGATIVE Crossmatch See Detail Assessment and Plan (1) Other skin changes: Status: Acute Plan 61-year-old male with toxic metabolic encephalopathy and clear agitation contributing to friction and shear within the hospital bed. From a wound perspective, there is not much to do about this. Controlling his agitation may remain not reduce the amount of friction and shear source upon the left buttock. A leaving is probably the best way to reduce friction and shear if he won't pull it off. Additionally, he is likely being repleted for vitamin deficiency which may aid in wound healing as well. Agree with Allevyn foam as the primary dressing.
--- NOTE | 2022-03-21 16:42 | MHC.CLN ---
NUTRITION CONSULT FOR UNABLE TO GIVE PO DUE TO [facility] AND FOR SKIN. NO PRESSURE AREAS NOTED. FOLLOW FOR UNDER SHERIFF FEEDING AND CONSISTENCY RECOMMENDATIONS.
--- NOTE | 2022-03-21 18:04 | P.CNPS_ITS ---
History of Present Illness Date of Service: 03/21/2022 Chief Complaint: Encephalopathy Reason for Consult: Medication Requesting physician: Keshawn Plascencia Discussed with referring provider: Yes Sources of Information: patient interviewed, chart reviewed and crisis/core team assessment reviewed HPI Narrative: Adilson is a 61 y.o. male who carries a dx of schizophrenia, dementia. He comes from [facility] nursing facility. He presented to [facility] ED on 03/20/2022 due to altered mental status i.e. lethargic, encephalopathy, and fluid overload. He has co-morbid medical diagnoses of cirrhosis, hepatic encephalopathy, right tentorial subdural hematoma (improved), chronic anemia, chronic kidney disease stage 3, and Parkinson?s. Recently discharged from [facility] on 03/15/22 due to a fall from bed, ammonia level found to be elevated despite lactulose and head CT revealed intracranial subdural bleed along the right tentorium. On admission his Tramadol, loratadine, and gabapentin were d/c?d due to lethargy. On sinemet and benztropine for Parkinson?s. On ziprasidone 20 mg daily and prolixin MARTINEZ 25 mg Q14 days for psychotic symptoms. Psych consult placed for med consult, as pt required IV haldol and ativan due to agitation, trying to get out of bed.? I evaluated the pt this evening and upon interview he reports he feels ?lousy, I cant get up and walk around.? Says he is ?cold, freezing,? however per direct support staff pt has been agitated, restless, taking off his hospital attire. Sleep and energy are ?alright.? Pt is not oriented to situation, says he doesnt know why he?s admitted to the hospital. He is agitated that ?they wont let me do what I wanna do? and when asked what he wants to do, pt says ?I want to get a vol[employer] truck.? He currently denies AH, says ?the voices have gone away.? Reports good effect on psychiatric medication, ?my medication is alright.? Pt has a 1:1 currently due to fall risk, as he tries to get out of bed. He denies feeling anxious. He stephan es having questions or concerns.? Medical Evaluation Reviewed: Yes [facility] Medical History Abnormal findings on diagnostic imaging of liver and biliary tract Acute kidney failure, unspecified Acute respiratory failure with hypoxia Alcohol abuse, uncomplicated Allergic rhinitis due to pollen Ataxia Cannabis use, unspecified, uncomplicated Chronic kidney disease, stage 3 unspecified Cocaine abuse, uncomplicated Dementia Dementia in other diseases classified elsewhere with behavioral disturbance Diabetes Disorder of urea cycle metabolism, unspecified Drug abuse, cocaine type Dysphagia, oral phase Dysphagia, oropharyngeal phase Essential (primary) hypertension Essential tremor ETOH abuse Hepatic failure, unspecified without coma Hepatomegaly, not elsewhere classified Hereditary and idiopathic neuropathy, unspecified Hereditary ataxia, unspecified Hyperosmolality and hypernatremia Mild cognitive impairment, so stated Muscle weakness (generalized) Myopia, bilateral Orthostatic hypotension Osteophyte, unspecified joint Other chronic allergic conjunctivitis Other lack of coordination Other pancytopenia Other specified eating disorder Other speech disturbances Pain in unspecified shoulder Parkinson disease Pneumonitis due to inhalation of food and vomit Repeated falls Schizophrenia Sepsis, unspecified organism Tinea pedis Traumatic subdural hemorrhage without loss of consciousness, subsequent encounter Type 2 diabetes mellitus with diabetic polyneuropathy Unspecified dementia with behavioral disturbance Unsteadiness on feet Diagnostics Vital Signs (24Hr): Vital Signs - 24 hr 03/20/22 20:38 03/21/22 03:35 03/21/22 12:00 Temperature 99.2 F Pulse Rate 67 67 Respiratory Rate 18 16 16 Blood Pressure 172/62 H 109/62 172/92 H Pulse Oximetry 96 92 94 03/21/22 12:27 03/21/22 12:48 03/21/22 14:31 Temperature 982 F H 99.2 F 99.6 F Pulse Rate 63 70 70 Respiratory Rate 20 20 18 Blood Pressure 161/69 H 188/71 H 199/78 H Pulse Oximetry 03/21/22 15:36 Temperature 99.6 F Pulse Rate 74 Respiratory Rate 15 Blood Pressure 171/63 H Pulse Oximetry 96 BMI result Body Mass Index 32.2 Labs Results: 03/22/22 06:45 03/22/22 06:45 Labs: Laboratory Results - last 48 hr 03/20/22 03/20/22 03/20/22 14:07 14:07 14:07 WBC 4.1 L RBC 2.50 L Hgb 7.5 L Hct 23.5 L MCV 94.0 MCH 30.0 MCHC 31.9 RDW 16.5 H Plt Count 102 L MPV 10.1 Immature Gran % (Auto) 0.2 Neut % (Auto) 56.7 Lymph % (Auto) 28.3 Hyde % (Auto) 10.7 Eos % (Auto) 3.9 Baso % (Auto) 0.2 Lymph # (Auto) 1.2 Hyde # (Auto) 0.4 Eos # (Auto) 0.2 Baso # (Auto) 0.0 Abs Immat Gran (auto) 0.01 Absolute Neuts (auto) 2.3 Absolute Nucleated RBC 0.000 Nucleated RBC % (auto) 0.0 PT 16.3 H INR 1.4 H Sodium Potassium Chloride Carbon Dioxide Anion Gap BUN Creatinine Estim Creat Clear Calc Estimated GFR Random Glucose Calcium Total Bilirubin AST ALT Alkaline Phosphatase Ammonia 28 Troponin I High Sens B-Natriuretic Peptide Total Protein Albumin Urine Color Urine Appearance Urine pH Ur Specific [place] Urine Protein Urine Glucose (UA) Urine Ketones Urine Blood Urine Nitrite Ur Leukocyte Esterase Urine RBC Urine WBC Ur Squamous Epith Cells Urine Bacteria Hyaline Casts COVID-19 (JAS) COVID-19 Clin Com Blood Type Antibody Screen Crossmatch 03/20/22 03/20/22 03/20/22 14:07 14:07 14:08 WBC RBC Hgb Hct MCV MCH MCHC RDW Plt Count MPV Immature Gran % (Auto) Neut % (Auto) Lymph % (Auto) Hyde % (Auto) Eos % (Auto) Baso % (Auto) Lymph # (Auto) Hyde # (Auto) Eos # (Auto) Baso # (Auto) Abs Immat Gran (auto) Absolute Neuts (auto) Absolute Nucleated RBC Nucleated RBC % (auto) PT INR Sodium 136 Potassium 4.9 D Chloride 107 Carbon Dioxide 21 L Anion Gap 13 BUN 30 H Creatinine 2.06 H Estim Creat Clear Calc 43.8 Estimated GFR 33 Random Glucose 177 H Calcium 8.3 L Total Bilirubin 1.4 H AST 28 D ALT 7 Alkaline Phosphatase 77 Ammonia Troponin I High Sens 26.9 B-Natriuretic Peptide 1210 H Total Protein 5.8 L Albumin 2.6 L Urine Color Urine Appearance Urine pH Ur Specific [place] Urine Protein Urine Glucose (UA) Urine Ketones Urine Blood Urine Nitrite Ur Leukocyte Esterase Urine RBC Urine WBC Ur Squamous Epith Cells Urine Bacteria Hyaline Casts COVID-19 (JAS) Negative COVID-19 Clin Com See Note Blood Type Antibody Screen Crossmatch 03/20/22 03/21/22 03/21/22 15:02 05:55 05:55 WBC 3.5 L RBC 2.29 L Hgb 6.9 L* Hct 21.7 L MCV 94.8 MCH 30.1 MCHC 31.8 RDW 16.5 H Plt Count 83 L MPV 10.9 Immature Gran % (Auto) Neut % (Auto) Lymph % (Auto) [place] % (Auto) Eos % (Auto) Baso % (Auto) Lymph # (Auto) [place] # (Auto) Eos # (Auto) Baso # (Auto) Abs Immat Gran (auto) Absolute Neuts (auto) Absolute Nucleated RBC 0.000 Nucleated RBC % (auto) 0.0 PT INR Sodium 138 Potassium 5.0 Chloride 107 Carbon Dioxide 25 Anion Gap 11 L BUN 30 H Creatinine 1.93 H Estim Creat Clear Calc 46.8 Estimated GFR 35 Random Glucose 80 D Calcium 8.6 Total Bilirubin AST ALT Alkaline Phosphatase Ammonia Troponin I High Sens B-Natriuretic Peptide Total Protein Albumin Urine Color YELLOW Urine Appearance CLEAR Urine pH 6.0 Ur Specific [place] 1.020 Urine Protein 2+ H Urine Glucose (UA) NEG Urine Ketones NEG Urine Blood NEG Urine Nitrite NEG Ur Leukocyte Esterase NEG Urine RBC 1-4 Urine WBC 0-2 Ur Squamous Epith Cells NONE Urine Bacteria NONE Hyaline Casts 0-2 COVID-19 (JAS) COVID-19 Clin Com Blood Type Antibody Screen Crossmatch 03/21/22 08:48 WBC RBC Hgb Hct MCV MCH MCHC RDW Plt Count MPV Immature Gran % (Auto) Neut % (Auto) Lymph % (Auto) Hyde % (Auto) Eos % (Auto) Baso % (Auto) Lymph # (Auto) [place] # (Auto) Eos # (Auto) Baso # (Auto) Abs Immat Gran (auto) Absolute Neuts (auto) Absolute Nucleated RBC Nucleated RBC % (auto) PT INR Sodium Potassium Chloride Carbon Dioxide Anion Gap BUN Creatinine Estim Creat Clear Calc Estimated GFR Random Glucose Calcium Total Bilirubin AST ALT Alkaline Phosphatase Ammonia Troponin I High Sens B-Natriuretic Peptide Total Protein Albumin Urine Color Urine Appearance Urine pH Ur Specific [place] Urine Protein Urine Glucose (UA) Urine Ketones Urine Blood Urine Nitrite Ur Leukocyte Esterase Urine RBC Urine WBC Ur Squamous Epith Cells Urine Bacteria Hyaline Casts COVID-19 (JAS) COVID-19 Clin Com Blood Type A Positive Antibody Screen NEGATIVE Crossmatch See Detail Imaging Radiology Impressions: ITS Impressions Chest X-Ray 03/20/22 14:23 IMPRESSION: Stable bilateral diffuse airspace disease. Head CT 03/20/22 14:32 IMPRESSION: * No new intracranial pathology compared to 02/28/2022. * Minimal residual hyperdensity along the right tentorium. The subdural hematoma was larger, more conspicuous on 02/19/2022. No new sites of intracranial hemorrhage. Mental Status Exam Mental Status Exam Narrative: A&O to person and place. Overweight, naked in hospital bed under blanket. Poor eye contact, inattentive. No Tics or Tremors noticed. No abnormal involuntary movements, however pt is restless, psychomotor agitation, trying to get out of bed frequently. Agitated, difficult to re-direct. Non-pressured speech, spontaneous with regular rate and rhythm, normal volume and prosody. No prolonged speech latency or dysarthria. Mood is ?lousy,? affect is somewhat irritable. Denies SI/SIB/HI upon inquiry. Denies A/VH or delusional thought co ntent. Thoughts are distracted, illogical. Insight/ Judgment limited. Medications Medications Current Medications Benztropine Mesylate (Benztropine Mesylate 1 Mg Tablet) 1 mg PO BID [facility] Last Admin: 03/21/22 09:06 Dose: Not Given Documented by: Carbidopa/Levodopa (Carbidopa/Levodopa 25/100 Tablet) 1 tab PO QID [facility] Last Admin: 03/21/22 13:47 Dose: 1 tab Documented by: Gabapentin (Gabapentin 100 Mg Capsule) 200 mg PO TID [facility] Last Admin: 03/21/22 13:47 Dose: 200 mg Documented by: Hydralazine HCl (Hydralazine Hcl 20 Mg/Ml Vial) 5 mg IVPUSH Q6H PRN; Protocol PRN Reason: SBP >170 Levothyroxine Sodium (Levothyroxine Sodium 25 Mcg Tablet) 25 mcg PO DAILY@0600 [facility] Last Admin: 03/21/22 09:06 Dose: Not Given Documented by: Lorazepam (Lorazepam 2 Mg/Ml Vial) 1 mg IVPUSH ONCE PRN PRN Reason: anxiety/restlessness Metoprolol Tartrate (Metoprolol Tartrate 25 Mg Tablet) 25 mg PO BID [facility]; Protocol Last Admin: 03/21/22 09:06 Dose: Not Given Documented by: Ondansetron HCl (Ondansetron Hcl 4 Mg/2 Ml Vial) 4 mg IVPUSH Q8H PRN PRN Reason: Nausea and Vomiting Pharmacy Consult (Consult Rx Perform Med Rec) 1 each MISCELLANE ONCE PRN PRN Reason: Consult order Sodium Chloride (0.9 % Sodium Chloride Flush 3 Ml Syringe) 3 ml IVFLUSH [facility] Last Admin: 03/21/22 07:51 Dose: 3 ml Documented by: Ziprasidone (Ziprasidone 20 Mg Capsule) 20 mg PO DAILY@1800 [facility] Allergies Allergies Allergy/AdvReac Type Severity Reaction Status Date / Time pollen extracts Allergy Unknown Verified 03/20/22 13:42 ragweed pollen Allergy Unknown Verified 03/20/22 13:42 Assessment & Plan Assessment & Plan (1) Dementia: Status: Acute Code(s): F03.90 - Unspecified dementia without behavioral disturbance (2) Schizophrenia: Status: Acute Code(s): F20.9 - Schizophrenia, unspecified Plan Adilson is a 61 y.o. male who carries a dx of schizophrenia, dementia. He is a [employer] resident from [facility] nursing facility. He presented to [facility] ED on 03/20/2022 due to altered mental status i.e. lethargic, encephalopathy, and fluid overload. He has co-morbid medical diagnoses of cirrhosis, hepatic encephalopathy, right tentorial subdural hematoma (improved), chronic anemia, chronic kidney disease stage 3, and Parkinson?s. Pt has been maintained on ziprasidone 20 mg daily and fluphenazine dec 25 mg Q14 days for psychotic sx. At baseline, pt presents with memory impairment, confusion. Plan: Pt is a [employer] resident at [facility]. Per hospitalist, pt has been agitated, restless, and difficult to redirect. He was administered haldol and ativan IV with good effect. Due to pt?s complicated hx of dementia, Parkinson?s, CKD, and hepatic impairment, I would recommend utilizing ativan 1 mg Q6H PRN for anxiety/ restlessness and seroquel 50 mg Q6H PRN for agitation/ psychosis.? I have shared this with Dr. Plascencia Thank you for this consultation. If you have any questions or concerns, please do not hesitate to contact psychiatry service. I spent minutes with the patient and/or on the patient floor today, greater than?50% of which was spent counseling/coordinating care. Patient educated on: medication risk/benefits
[2022-03-21] MEDS: Ziprasidone 20 MG CAPSULE PO (18:16)
[2022-03-21] MEDS: Haloperidol Lactate 5 MG/ML VIAL IM (18:33)
--- NOTE | 2022-03-21 18:36 | PC.NURSE ---
Patient is still restless and agitated, wrestling the sitter, patient did not respond to medication given. MD ordered haldol 5mg IM , just gave to the patient.
[2022-03-21] MEDS: Metoprolol Tartrate 25 MG TABLET PO (20:19)
[2022-03-21] MEDS: Benztropine Mesylate 1 MG TABLET PO (20:19)
[2022-03-22] MEDS: LORazepam 2 MG/ML VIAL 1 MG IVPUSH (03:06)
[2022-03-22] MEDS: Levothyroxine Sodium 25 MCG TABLET PO (05:30)
[2022-03-22 06:58] LABS: Hematocrit 25.8 % (42.0-52.0); Hemoglobin 8.4 g/dl (14.0-18.0); Mean Corpuscular HGB Conc 32.6 g/dl (31.0-36.0); Mean Corpuscular Hemoglobin 30.7 pg (27.0-33.0); Mean Corpuscular Volume 94.2 fL (80.0-98.0); Platelet Count 87 X10*3/uL (160-400); Red Blood Count 2.74 X10*6/uL (4.60-5.80); Red Cell Distribution Width 16.3 % (11.0-16.0)
[2022-03-22 07:14] LABS: Anion Gap 11 (12-20); Blood Urea Nitrogen 29 mg/dL (9-16); Calcium 8.8 mg/dL (8.4-10.2); Carbon Dioxide 25 mmol/L (22-29); Chloride 108 mmol/L (96-108); Creatinine Clr Calc Pharmacy 44.9; Estimated Glomerular Filt Rate 34; Glucose Random 214 mg/dL (60-115); Potassium 4.7 mmol/L (3.3-5.1); Sodium 139 mmol/L (135-145)
[2022-03-22 07:16] LABS: B Type Natriuretic Peptide 1699 pg/mL (<100)
[2022-03-22 07:40] VITALS: BP 190/67; PULSE 64; RESP 20; TEMP 37.3; O2SAT 93
[2022-03-22] MEDS: QUEtiapine Fumarate 50 MG TABLET PO ×2 (09:14→16:03)
[2022-03-22] MEDS: Metoprolol Tartrate 25 MG TABLET PO ×2 (09:14→20:57)
[2022-03-22] MEDS: Carbidopa/Levodopa 25/100 TABLET 1 TAB PO ×4 (09:14→20:57)
[2022-03-22] MEDS: Benztropine Mesylate 1 MG TABLET PO ×2 (09:14→20:57)
[2022-03-22] MEDS: hydrALAZINE HCl 20 MG/ML VIAL 10 MG IVPUSH (09:14)
[2022-03-22] MEDS: 0.9 % Sodium Chloride Flush 3 ML SYRINGE IVFLUSH (09:14)
[2022-03-22] MEDS: Gabapentin 100 MG CAPSULE 200 MG PO ×3 (09:24→20:57)
[2022-03-22 10:59] VITALS: PULSE 61; RESP 18; TEMP 37.3
[2022-03-22 11:35] LABS: COVID-19 Test Negative (Negative); IDNOW Serial# 16C4AD1C
--- NOTE | 2022-03-22 12:04 | P.DS_ITS ---
DS: Providers Provider Date of Service: 03/22/22 Date of admission: 03/20/22 15:38 Primary care physician: Unknown Physician Consults: 03/21/22 13:50 Consult to Wound Care Routine Consulting Provider: Diane Toribio Reason for consultation: buttock ulcer Has provider been notified: Yes 03/21/22 14:53 Consult to Psychiatry Routine Consulting Provider: Psych Covering Reason for consultation: Agitation, combative, Hx Parkinson, no acute medical illness DS: Diagnosis Discharge Diagnosis (1) Schizophrenia: (2) Acute on chronic anemia: Status: Resolved (3) Agitation: Status: Resolved (4) Toxic metabolic encephalopathy: (5) Alcoholic cirrhosis of liver with ascites: (6) Hypervolemia: Status: Resolved DS: Summary Hospital Course Hospital Course: Admission note HPI A 61 years old male with PMH of CKD stage 3, dementia, cirrhosis, HTN, Parkinson, schizophrenia, among others who presents to the hospital from [facility] for worsening encephalopathy.? The patient unable to give any meaningful history but denies any pain, headache, fever, chills, chest pain or shortness of breath, abdominal pain or change in bowel habit or any urinary symptoms.? He was discharged from [facility] on March 15 after being treated for pneumonia, hepatic encephalopathy and subdural hematoma.? Repeated CT scan today showed improvement in the hematoma with no acute findings.? Blood work done in the emergency within his baseline. Admitted for further evaluation and treatment. Hospital course The patient was admitted to the hospital for evaluation of toxic metabolic encephalopathy with associated agitation and behavioral disturbances. Believed to be secondary to general deconditioning and advanced Parkinson, dementia and schizophrenia. Treated by decreasing the dose of gabapentin and holding loratadine and tramadol. Required multiple doses of Haldol and Ativan to control his agitation as psychiatry team evaluated the patient and recommended starting p.o. Seroquel and Ativan as needed. His mental status improved back to what seems his baseline as he is alert and interactive but overall disoriented. He was evaluated by speech team for concern of swallowing problem with recommendation to start modified diet for the time PT and advanced as tolerated. Noted to have acute on chronic anemia with hemoglobin dropping to 6.9 from baseline above 7.5. He responded well to 1 unit of blood transfusion with hemoglobin improving to 8.4. Noticed to be in mild fluid overload believed to be secondary to history of cirrhosis. Received IV Lasix post transfusion with fair response. Plan to discharge him home with daily Lasix does and to be monitored at the long-term care facility with plan to repeat BMP next week. Patient will go back to [facility] with the following plan: Start small dose of Lasix for fluid overload Continue to hold loratadine, tramadol decrease gabapentin dose to 300 mg t.i.d. To use Ativan and Seroquel as needed for agitation Diet modified, pureed diet with nectar thick fluids, full assistance with meals, aspiration precautions To repeat kidney function as outpatient Time Spent with Patient Time attestation: Total time spent providing and/or coordinating discharge services: Discharge coordination time: Greater than 30 minutes Quality: Safe Use of Opioids Does Pt have an Active Cancer Diagnosis on the Problem List?: No Quality: Stroke Does the patient have a stroke diagnosis?: No Physical Exam Vital Signs: Vital Signs: Last Vital Signs Temp 99.2 F 03/22/22 10:59 Pulse 61 03/22/22 10:59 Resp 18 03/22/22 10:59 BP 190/67 H 03/22/22 07:40 Pulse Ox 93 03/22/22 07:40 BMI result Body Mass Index 32.2 Const: Other: Constitutional : Alert, interactive but looks confused, answers with 1-2 word sentences, looks mildly anxious Neck : Normal inspection, Supple Cardiovascular : RRR, no JVP, +1 bilateral lower extremity edema Respiratory : fair bilateral air entry, no crackles, wheezes or rhonchi Gastrointestinal: soft, lax, Normal bowel sounds, Non tender Skin : Warm, Dry, 0.3 x 0.1 slit like ulcer with hypertrophic and sloughy edges Neurological : Alert, disoriented, moving all extremities, No focal deficit DS: Data Data Completed and Pending Completed studies during hospitalization [Text1]: Procedures Transfusion of Nonautologous Red Blood Cells into Peripheral Vein, Percutaneous Approach (02/19/22) Labs on day of discharge: Laboratory Results - last 24 hr 03/21/22 03/22/22 03/22/22 08:48 06:45 06:45 WBC 4.0 L RBC 2.74 L Hgb 8.4 L D Hct 25.8 L MCV 94.2 MCH 30.7 MCHC 32.6 RDW 16.3 H Plt Count 87 L MPV 11.0 Absolute Nucleated RBC 0.000 Nucleated RBC % (auto) 0.0 Sodium 139 Potassium 4.7 Chloride 108 Carbon Dioxide 25 Anion Gap 11 L BUN 29 H Creatinine 2.01 H Estim Creat Clear Calc 44.9 Estimated GFR 34 Random Glucose 214 H D Calcium 8.8 B-Natriuretic Peptide COVID-19 ([facility]) COVID-19 Clin Com Blood Type A Positive Antibody Screen NEGATIVE Crossmatch See Detail 03/22/22 03/22/22 06:45 11:04 WBC RBC Hgb Hct MCV MCH MCHC RDW Plt Count MPV Absolute Nucleated RBC Nucleated RBC % (auto) Sodium Potassium Chloride Carbon Dioxide Anion Gap BUN Creatinine Estim Creat Clear Calc Estimated GFR Random Glucose Calcium B-Natriuretic Peptide 1699 H COVID-19 ([facility]) Negative COVID-19 Clin Com See Note Blood Type Antibody Screen Crossmatch Discharge Plan Discharge Patient Disposition: Xfer [facility] Discharge Diagnosis: Agitation Uncontrolled hypertension Altered mentation Acute on chronic anemia Referrals: [facility] [Outside] - 1 Week Physician,Davis Sevilla [Physician] - 1 Week Discharge Medications: New lorazepam 1 mg Tablet 1 mg PO Q6H PRN (Reason: anxiety, agitation) Qty: 15 0RF quetiapine 50 mg Tablet 50 mg PO TID PRN (Reason: agitation) Qty: 20 0RF furosemide 20 mg tablet 20 mg PO QAM Qty: 30 0RF Continued docusate sodium 100 mg Tablet 100 mg PO BEDTIME 0RF Lotrimin AF 2 % Aerosol,[place] 1 spray TOPICAL BID PRN (Reason: fungal infection) 0RF fluphenazine decanoate 25 mg/mL Solution 50 mg SUBCUT Q14D 0RF benztropine 1 mg Tablet 1 mg PO BID 0RF carbidopa-levodopa [Sinemet] 25-100 mg Tablet 1 tab PO QID 0RF sennosides [senna] 8.6 mg Tablet 8.6 mg PO DAILY PRN (Reason: Constipation) 0RF ziprasidone HCl 20 mg capsule 20 mg PO DAILY@1800 0RF acetaminophen 325 mg Tablet 650 mg PO Q4H PRN (Reason: PAIN/TEMP>100) 0RF bisacodyl 10 mg Suppository 10 mg [place] DAILY PRN (Reason: Constipation) 0RF Calazime Skin Protectant 1 applic topical QSHIFT 0RF Protocol: Apply to: Apply to: GROIN Rx Instructions: APPLY TO GROIN TOPICALLY EVERY SHIFT FOR REDNESS AND IRRITATION WASH GROIN WITH WARM SOAPY WATER. PAT DRY. APPLY CLAZIME CREAM TO GROIN. guaifenesin 100 mg/5 mL Liquid 200 mg PO Q4H PRN (Reason: Cough) 0RF lactulose 20 gram/30 mL solution 20 g PO DAILY 0RF Levemir FlexTouch U-100 Insuln 100 unit/mL (3 mL) Insulin Pen 25 unit SUBCUT DAILY 0RF metoprolol tartrate 25 mg tablet 25 mg PO BID 0RF Protocol: Hold for SBP/HR < HOLD for SBP < : 90 HOLD for HR < : 60 sennosides [senna] 8.6 mg Tablet 8.6 mg PO DAILY 0RF multivitamin Tablet 1 tab PO DAILY 0RF levothyroxine 25 mcg tablet 25 mcg PO DAILY@0600 0RF amlodipine 10 mg tablet 10 mg PO BEDTIME 0RF Xifaxan 550 mg tablet 1 tab PO BID 0RF Changed gabapentin 600 mg tablet 300 mg PO TID Qty: 0 0RF Held tramadol 50 mg Tablet 50 mg PO BID 0RF Hold Instructions: MD to decide if needed to be resumed loratadine 10 mg Tablet 10 mg PO DAILY 0RF Hold Instructions: MD to decide if needed to be resumed Discharge Orders: Discharge Order (Routine); Ordered 03/22/22 Ordered By: Keshawn Plascencia Diet: other Activity on Discharge: As tolerated Stand Alone Forms: Patient Portal Discharge page Other Ambulatory Orders: Basic Metabolic Panel (Routine) Timeframe: 1 Week Facility: [facility] - Location: Laboratory Ordered By: Keshawn Plascencia Care Plan Goals: Read below Health Concerns: Read below Plan of Treatment: Diet modified, pureed diet with nectar thick fluids, full assistance with meals, aspiration precautions Assessment: Admitted to the hospital for altered mentation believed to be secondary to general deconditioning and multiple medications. Improved with holding gabape ntin, loratadine and tramadol with treatment of the agitation with Haldol and Ativan. Noticed to acute on chronic anemia with no evidence of blood loss responded well to blood transfusion. Evaluated by psychiatry team were adjusted your home medications. Start small dose of Lasix for fluid overload Continue to hold loratadine, tramadol decrease gabapentin dose to 300 mg t.i.d. To use Ativan and Seroquel as needed for agitation Diet modified, pureed diet with nectar thick fluids, full assistance with meals, aspiration precautions To repeat kidney function as outpatient Discharge Date/Time: 03/22/22 23:39
[2022-03-22 12:05] VITALS: BP 157/53
--- NOTE | 2022-03-22 12:07 | MHC.SL.SWA ---
Speech Pathologist Impression: Risk of Aspiration Due to: History of Pneumonia Reduced Cognition Dysphasia Diet Status: Puree (NDD1) w/ NECTAR THICK liquids by tsp only, pills CRUSHED in PUREE. Pt needs full assist/supervision at all meals. Liquid Consistency and Strategies for Safe Swallow: Liquid Intake Recommendation: [place] Thick Liquid Intake Strategies: Liquids by Teaspoon Only Solid Food Consistency: Dietary Recommendations: Pureed (NDD1) Additional Modifications to Solid Foods: Pt will need full assist during all meals. Alternate liquids and solids, assure swallow before presenting more food/liquid, provide a reasonable rate of presentation (Pt is impulsive, may want to eat quickly). Aspiration precautions with close monitor. Oral Medication Intake: Crushed with Puree Please contact the pharmacy regarding appropriate crushable or liquid drug formulations that are available whenever modified delivery is recommended. Compensatory Strategies and Precautions to be Taken for Safe Swallow: Sitting Upright (90 deg) Liquids from Spoon Alternate Liquids/Solids Rate of Ingestion Change Supervision While Eating and Drinking for Safe Swallow: Total Supervision (1:1) Foods to Avoid: [place] sticky solids Swallowing Recommended Treatments: Compens. Strategy Educat. Recommendation for Speech: Inpatient Speech Therapy Comment: Pt presents with oral pharyngeal dysphagia characterized by a disorganized oral phase, mild delay initiating swallow, incomplete laryngeal elevation, and clinical signs of aspiration on thin liquids. Pt requires full assist during all meals, is impulsive and confused, and requires close monitor for signs of aspiration. Recommend DOWNGRADE liquid consistencies to NECTAR THICK and continue on PUREE (NDD1) diet w/ Pills CRUSHED in Puree. MD & Production Assembler notified of recommendations by secure text, MILLWRIGHT made changes in diet order. MILLWRIGHT discussed recommendations with nursing and nurses aid who was monitoring PT. MILLWRIGHT will continue to follow while inpt to assess toleration of diet, re-assess swallow, upgrade as needed. Frequency/Duration: M-F while inpatient Date Range for Service Req: Timeline to reassess: Ct Scan Special Procedures Technologist Clinican/Clinical Fellow: No Supervisory Statement: I have reviewed and agree with the student/clinical fellow's documentation: N/A Speech Language Pathologist: Angella Ernandez M.A., [facility]
[2022-03-22] MEDS: amLODIPine Besylate 10 MG TABLET PO (12:25)
[2022-03-22] MEDS: LORazepam 1 MG TABLET PO ×2 (12:25→20:57)
[2022-03-22] MEDS: Furosemide 20 MG/2 ML VIAL IVPUSH (12:25)
--- NOTE | 2022-03-22 13:56 | MHC.CM.PN ---
PATIENT TO RETURN TO [facility]IA [facility]. TIME REQUEST FOR 1700 RN AND UNIT AWARE GUARDIAN, [place] [phone] ALSO AWARE IMM 03/21 IN CHART AND ORIGINAL RETURNING TO FACILITY WITH PATIENT PER CONVERSATION
[2022-03-22 20:00] VITALS: BP 168/56; PULSE 67; RESP 20; TEMP 37.1; O2SAT 92
[2022-03-22] MEDS: Ziprasidone 20 MG CAPSULE PO (20:57)
== END 2022-03-22 23:39 | disposition skilled nursing facility (03) | DRG 92 ==
LOC: HO.ED 15:34 → HO.EDOVER 15:45 → HO.S3 03-21 07:32
PROVIDERS: Admitting Provider Student in an Organized Health Care Education/Training Program; Emergency Provider Emergency Medicine; PCP Hospitalist; Visit Provider Student in an Organized Health Care Education/Training Program
DX: G92.8 Other toxic encephalopathy (principal); F02.81 Dementia in other diseases classified elsewhere, unspecified severity, with behavioral disturbance; T50.995A Adverse effect of other drugs, medicaments and biological substances, initial encounter; N18.30 Chronic kidney disease, stage 3 unspecified; I12.9 Hypertensive chronic kidney disease with stage 1 through stage 4 chronic kidney disease, or unspecified chronic kidney disease; K70.31 Alcoholic cirrhosis of liver with ascites; D63.1 Anemia in chronic kidney disease; E11.22 Type 2 diabetes mellitus with diabetic chronic kidney disease; G20 Parkinson's disease; Z20.822 Contact with and (suspected) exposure to COVID-19; Z87.891 Personal history of nicotine dependence; Z79.890 Hormone replacement therapy; Z79.899 Other long term (current) drug therapy
CPT/HCPCS: 36415; 70450; 71045; 80048; 80053; 81001; 82140; 83880; 84484; 85025; 85027; 85610; 86850; 86900; 86901; 86923; 87635; 92610; 93005; 99285; J1650; J1940; J2060; P9016

== ENCOUNTER 2022-05-17 13:18 | Inpatient (IN) | payer MEDICARE, MEDICAID, SELFPAY ==
--- NOTE | ~2022-05-17 | CT_ITS ---
EXAMINATION: CT HEAD WITHOUT CONTRAST CLINICAL INFORMATION: Unresponsiveness COMPARISON: None TECHNIQUE: Contiguous axial imaging was performed from the skull base to vertex without intravenous administration of contrast. This CT examination was performed using dose optimization techniques as appropriate, variously including the following: *Automated exposure control *Adjustment of mA and/or kV according to patient size (this includes techniques or standardized protocols for targeted exams where dose is matched to indication/reason for exam; i.e. extremities or head) *Use of iterative reconstruction technique DLP: A 56 mGy-cm FINDINGS: There is no evidence of acute intracranial hemorrhage or territorial infarction. No abnormal mass effect or midline shift is seen. Garcia to white matter differentiation is well preserved. No extra-axial fluid collections are identified. The ventricles are normal in size. Similar appearance of mild likely chronic microvascular white matter ischemic changes. There is chronic soft tissue swelling and skin thickening at the left parietal vertex. There is asymmetric left periorbital swelling. No fracture of the lateral orbital wall seen. Normal globe tone. The mastoid air cells and visualized portions of the paranasal sinuses are well aerated. CT/CT head/brain wo con IMPRESSION: Left lateral periorbital swelling. No orbital fracture seen. No acute intracranial abnormality.
--- NOTE | ~2022-05-17 | XR_ITS ---
EXAMINATION: XR CHEST CLINICAL INFORMATION: Status post NG tube placement. COMPARISON: Chest done on 06/11/2022 at 6:09 AM. TECHNIQUE: Frontal view of the chest was obtained. FINDINGS: The tip of the NG tube is seen within the left upper quadrant of the abdomen, appear in satisfactory position. Persistent stable bilateral diffuse interstitial airspace disease. Borderline enlarged cardiac mediastinal silhouette. XR/XR chest 1V IMPRESSION: The tip of the NG tube appear in good position. No other significant change since the prior study done earlier today.
--- NOTE | ~2022-05-17 | XR_ITS ---
EXAMINATION: XR CHEST CLINICAL INFORMATION: ETT/OGT/TLC placement COMPARISON: Chest radiograph 05/17/2022 TECHNIQUE: Frontal view of the chest was obtained. FINDINGS: Since the prior study, the ET tube has been placed with its tip approximately 3.8 cm above the amparo. An NG tube has its tip below the hemidiaphragm. A right IJ line has its tip at the SVC/RA junction. Lungs are hypoinflated. Some scattered areas of atelectasis are seen. No gross consolidations or effusions. No pneumothorax. XR/XR chest 1V IMPRESSION: Lines and tubes in position as described above.
--- NOTE | ~2022-05-17 | XR_ITS ---
EXAMINATION: XR CHEST CLINICAL INFORMATION: NG tube placement COMPARISON: Previous chest x-ray 05/23/2022 TECHNIQUE: Frontal view of the chest was obtained. FINDINGS: There is a new feeding tube with tip projecting over the stomach. There is a right jugular line with tip projecting over the SVC. The cardiac and mediastinal contours are stable. There is bilateral multilobar airspace disease not appreciably changed. There is no pleural effusion or pneumothorax. Bony structures are unremarkable. XR/XR chest 1V IMPRESSION: New feeding tube projects over stomach. No chest tube unchanged in bilateral multilobar airspace disease.
--- NOTE | ~2022-05-17 | XR_ITS ---
EXAMINATION: XR chest 1V CLINICAL INFORMATION: Fever COMPARISON: Prior chest x-ray from June 05, 2022 TECHNIQUE: XR chest 1V Tubes and lines: Gastric tube passing below the diaphragm into the stomach. Lungs and pleura: Redemonstration of diffuse mild interstitial opacification probably diffuse interstitial pneumonitis or edema unchanged. Blunting of left costophrenic angle suggesting left subpulmonic pleural effusion. Heart and mediastinum: The mediastinum is within normal limits.. Bones/soft tissue: Skeletal structures included are normal for patient's age. XR/XR chest 1V IMPRESSION: No significant change. Gastric tube remain in place. Bilateral interstitial opacification probably interstitial edema or interstitial pneumonitis unchanged. Small left pleural effusion.
--- NOTE | ~2022-05-17 | XR_ITS ---
EXAMINATION: XR CHEST CLINICAL INFORMATION: New NG tube placement COMPARISON: Chest 05/31/2022 TECHNIQUE: Frontal view of the chest was obtained. FINDINGS: There is mild aeration of the left upper lobe. Rest of the left hemithorax is completely opacified. Position of right jugular central catheter appears stable. The end hole is above the GE junction and the tip of enteric tube is at the fundus. Needs advancement. The right lung is expanded and clear. Heart size and pulmonary vascularity normal. No gross bony abnormality. XR/XR chest 1V IMPRESSION: There is minimal aeration of left upper lobe since the last chest exam. Rest of the left hemithorax is completely opacified with mild ipsilateral shift. Right jugular central venous catheter are in satisfactory position. The tip of endotracheal tube is at the fundus and the end hole is above the GE junction and needs to be advanced by 10 cm.
--- NOTE | ~2022-05-17 | XR_ITS ---
EXAMINATION: XR CHEST CLINICAL INFORMATION: tube placement COMPARISON: Chest x-ray 06/02/2022, 3:40 PM TECHNIQUE: Frontal view of the chest was obtained. 6:46 PM FINDINGS: Tubes and lines: 1. Right IJ catheter tip in superior vena cava. 2. Enteric tube passing into stomach. End and side hole within the stomach. Persistent diffuse consolidated and patchy airspace opacity in the left lung with some volume loss of left hemithorax similar prior chest x-ray today. Small patchy peripheral airspace opacity along the minor fissure in the right upper lobe peripherally remains unchanged. XR/XR chest 1V IMPRESSION: 1. Right IJ catheter tip in superior vena cava. 2. Enteric tube passing into stomach. End and side hole within the stomach. 3. Persistent bilateral airspace opacities, left worse than right.
--- NOTE | ~2022-05-17 | XR_ITS ---
EXAMINATION: XR CHEST CLINICAL INFORMATION: Nasogastric tube placement COMPARISON: Previous day TECHNIQUE: Frontal view of the chest was obtained. FINDINGS: Nasogastric tube terminates within the stomach, side port in the gastric cardia. Low lung volumes. Pulmonary venous congestion. Bilateral patchy and hazy airspace opacities and small bilateral pleural effusions. No pneumothorax. No acute osseous abnormalities. XR/XR chest 1V IMPRESSION: * Nasogastric tube in stomach. * Persistent bilateral patchy and hazy airspace opacities could be compatible with edema or multifocal pneumonia/pneumonitis
--- NOTE | ~2022-05-17 | XR_ITS ---
EXAMINATION: XR CHEST CLINICAL INFORMATION: Shortness of breath. COMPARISON: 03/20/2022 TECHNIQUE: Frontal view of the chest was obtained. FINDINGS: Very mild patchy diffuse interstitial infiltrate or areas of bronchial thickening noted. Pneumonitis could have such an appearance. Heart size borderline with normal caliber pulmonary vessels. Chronicity of this finding is uncertain, as the lungs appear better aerated today than on the prior exam of 03/20/2022. XR/XR chest 1V IMPRESSION: Persistent but improved bilateral diffuse airspace disease.
--- NOTE | ~2022-05-17 | XR_ITS ---
EXAMINATION: XR CHEST CLINICAL INFORMATION: Nasogastric tube placement. COMPARISON: 06/02/2022 chest radiograph. TECHNIQUE: Frontal view of the chest was obtained. FINDINGS: Support devices: There has been interval advancement of the nasogastric tube with the tip no longer included on the study but seen below left hemidiaphragm with the tip more distal compared to the previous study. Right internal jugular catheter with tip terminating in superior vena cava. Interval decrease in opacification in the left lower lung with diffuse patchy opacities. Mild patchy opacities are seen in the right lung as well. The heart and mediastinal structures are unremarkable. XR/XR chest 1V IMPRESSION: 1. Interval advancement of nasogastric tube with tip not included on the study. The exact location cannot be determined. 2. Decreased left lung opacification/pleural effusion with persistent bilateral patchy infiltrates, left greater than right.
--- NOTE | ~2022-05-17 | XR_ITS ---
EXAMINATION: XR BILATERAL HIPS WITH AP PELVIS CLINICAL INFORMATION: Pelvic and hip pain status post fall. COMPARISON: CT scan of the abdomen and pelvis dated 05/17/2022. TECHNIQUE: AP view of the pelvis and single views of each hip were obtained. FINDINGS: Mild bilateral hip degenerative joint changes are seen. There is no acute fracture or dislocation. The bony pelvis is intact. The soft tissues are unremarkable. XR/XR hip BI w PEL1V IMPRESSION: Mild bilateral hip osteoarthritis without acute fracture.
--- NOTE | ~2022-05-17 | XR_ITS ---
EXAMINATION: XR CHEST CLINICAL INFORMATION: Aspiration COMPARISON: May 28, 2022 and studies dating back to February 28, 2022 TECHNIQUE: AP portable view of the chest was obtained. FINDINGS: Since previous study there has been complete opacification of the left hemithorax with shift of mediastinal structures to the left consistent with diffuse atelectasis.. No significant abnormality of the right hemithorax is identified. Heart normal size. No evidence of pulmonary edema. Right internal jugular central venous catheter seen with its tip in the distal superior vena cava. Enteric catheter is seen traversing below the diaphragm. XR/XR chest 1V IMPRESSION: Complete opacification of the left hemithorax with loss of volume consistent with atelectasis.
--- NOTE | ~2022-05-17 | XR_ITS ---
EXAMINATION: XR CHEST CLINICAL INFORMATION: Hypoxemia. History of aspiration. COMPARISON: Previous chest x-ray most recent 05/19/2021 TECHNIQUE: Frontal view of the chest was obtained. FINDINGS: The cardiac silhouette is slightly enlarged but stable. There is an endotracheal tube with tip 7 cm above the amparo. There is a right jugular line with tip projecting over the SVC. There is a nasogastric tube projects over the stomach. The tip is not seen. There is bilateral multilobar airspace disease. This appears in increased from 05/19/2022 exam. There is no pleural effusion or pneumothorax. Bony structures are unremarkable. XR/XR chest 1V IMPRESSION: Nasogastric tube projects over stomach, tip not seen. Satisfactory position of right jugular line and endotracheal tube. Slight interval increase in bilateral multilobar airspace disease from 05/19/2022 exam.
--- NOTE | ~2022-05-17 | XR_ITS ---
EXAMINATION: XR CHEST CLINICAL INFORMATION: NG tube placement COMPARISON: 06/02/2022 TECHNIQUE: Frontal view of the chest was obtained. FINDINGS: Enteric tube tip lies in the region of the body of the stomach. There is persistent retrocardiac opacity and additional patchy opacity in the left perihilar region, similar to minimally improved from prior. Small left pleural effusion suspected. Subtle haziness at the right lung base is increased from prior. No evidence of pneumothorax. The cardiomediastinal silhouette is stable. No acute osseous findings are seen. XR/XR chest 1V IMPRESSION: Enteric tube tip in the region of the body of the stomach. Persistent left mid and lower lung opacities, similar to slightly improved, with suspected small pleural effusion. Slightly increasing haziness at the right lung base.
--- NOTE | ~2022-05-17 | XR_ITS ---
EXAMINATION: XR CHEST CLINICAL INFORMATION: NG tube placement COMPARISON: Chest 06/08/2022 TECHNIQUE: Frontal view of the chest was obtained. FINDINGS: The lungs are hypoexpanded with bilateral prominent interstitial changes similar to previous study. No consolidation or pleural effusion suspected. Heart size and pulmonary vascularity is normal. There is a enteric tube with its tip in the stomach and end hole at or above GE junction. No gross bony abnormality XR/XR chest 1V IMPRESSION: No signal change in bilateral interstitial opacification likely pneumonitis or edema. Advanced enteric tube by 10 cm.
--- NOTE | ~2022-05-17 | CT_ITS ---
EXAMINATION: CT ABDOMEN AND PELVIS WITHOUT CONTRAST CLINICAL INFORMATION: Abdominal and leg swelling COMPARISON: Previous CT of the abdomen and pelvis most recent February 2022 TECHNIQUE: Multidetector volumetric imaging was performed from the superior aspect of the liver through the pubic symphysis. Sagittal and coronal reformatted images were obtained on the technologist's workstation. This CT examination was performed using dose optimization techniques as appropriate, variously including the following: *Automated exposure control *Adjustment of mA and/or kV according to patient size (this includes techniques or standardized protocols for targeted exams where dose is matched to indication/reason for exam; i.e. extremities or head) *Use of iterative reconstruction technique Exam is limited due to motion artifact. DLP: 1021 mGy-cm FINDINGS: LUNG BASES: The visualized lung bases are clear. There is bilateral gynecomastia. LIVER, GALLBLADDER, AND BILIARY TREE: The liver is cirrhotic appearing. The gallbladder is normal. There is no biliary duct dilatation. PANCREAS: Unremarkable. SPLEEN: The spleen is enlarged. ADRENAL GLANDS: Unremarkable. KIDNEYS AND URETERS: The kidneys are normal in size, shape, and attenuation. No hydronephrosis, hydroureter, or calculi seen. No perinephric stranding. BLADDER: Ybarra catheter in the bladder. GASTROINTESTINAL TRACT: Rectal tube. Stool throughout the colon suggestive of constipation. Nasogastric tube in the stomach. ABDOMINAL WALL: No significant hernia is appreciated. LYMPH NODES: Normal. VASCULAR: Large upper abdominal varices and probable splenorenal shunt. Atherosclerotic disease. No ascites. PELVIC VISCERA: Unremarkable. OSSEOUS STRUCTURES: Degenerative changes of the spine and hip joints. CT/CT abdomen pelvis wo con IMPRESSION: Very limited exam due to motion artifact. Cirrhotic appearing liver, varices and splenomegaly. No ascites. Constipation. Fleischner guidelines were followed.
[2022-05-17 13:32] VITALS: BP 154/84; PULSE 60; O2SAT 98; BMI 34.0
--- NOTE | 2022-05-17 14:02 | ECG_ITS ---
Test Reason : BILATERAL LEG SWELLING Blood Pressure : / mmHG Vent. Rate : 063 BPM Atrial Rate : 063 BPM P-R Int : 170 ms QRS Dur : 108 ms QT Int : 440 ms P-R-T Axes : 012 -50 040 degrees QTc Int : 450 ms Normal sinus rhythm Left axis deviation Low voltage QRS Cannot rule out Anterior infarct , age undetermined Abnormal ECG When compared with ECG of 20-MAR-2022 13:53, No significant change was found Referred By: Joselyn Tomlinson Electronically Signed By:Cristo Valverde
--- NOTE | 2022-05-17 15:00 | ED_ITS ---
HPI - General Adult General Chief complaint: General Medical Stated complaint: STOMACH SWELLING Time Seen by Provider: 05/17/22 13:49 Source: patient, RN notes reviewed and old records reviewed Mode of arrival: ambulatory Limitations: other (Poor historian ) History of Present Illness HPI narrative: This is a 61-year-old male with a past medical history of cirrhosis, hepatic encephalopathy, dementia, schizophrenia, pneumonia, and right tentorial subdural, who presents to the emergency department via EMS from [facility] with complaints of 30 lb weight gain for 3 weeks . Patient is a poor historian. Upon questioning patient reports that since he has noticed that he has had significant abdominal bloating as well as bilateral lower extremity edema. He also admits to having some shortness of breath as well as orthopnea. reports and that he feels as though he is in menopause as he feels like he is getting hot flashes, however denies fevers or chills. Denies chest pain, palpitations, calf pain, nausea, vomiting, or diarrhea. He denies any recent alcohol use. no other complaints or concerns at this time. MD complaint: cough/sob/abd distention/leg swelling Onset (ago): day(s) (5) Location: abdomen and lower extremity (BL extremity swelling) Radiation: non-radiation Severity: moderate Quality: aching Pain Consistency: constant Relieving factors: none Exacerbating factors: none Associated symptoms: cough and shortness of breath Treatments prior to arrival: none Related Data Home Medications Medication Instructions Recorded Confirmed benztropine 1 mg tablet 1 mg PO BID 11/18/20 05/17/22 carbidopa 25 mg-levodopa 100 mg 1 tab PO QID 11/18/20 05/17/22 tablet (Sinemet) fluphenazine decanoate 25 mg/mL 50 mg subcut Q14D 11/18/20 05/17/22 injection solution miconazole nitrate 2 % topical 1 spray topical BID PRN fungal 11/18/20 05/17/22 spray (Lotrimin AF) infection tramadol 50 mg tablet 50 mg PO BID 11/18/20 05/17/22 docusate sodium 100 mg tablet 100 mg PO BEDTIME 12/10/20 05/17/22 sennosides 8.6 mg tablet (senna) 8.6 mg PO DAILY PRN Constipation 12/10/20 05/17/22 amlodipine 10 mg tablet 10 mg PO BEDTIME 02/19/22 05/17/22 levothyroxine 25 mcg tablet 25 mcg PO DAILY@0600 02/19/22 05/17/22 multivitamin 1 tab PO DAILY 02/19/22 05/17/22 rifaximin 550 mg tablet (Xifaxan) 1 tab PO BID 02/19/22 05/17/22 Calazime Skin Protectant 1 applic topical QSHIFT 03/20/22 05/17/22 acetaminophen 325 mg tablet 650 mg PO Q4H PRN PAIN/TEMP>100 03/20/22 05/17/22 bisacodyl 10 mg rectal suppository 10 mg NC DAILY PRN Constipation 03/20/22 05/17/22 guaifenesin 100 mg/5 mL oral liquid 200 mg PO Q4H PRN Cough 03/20/22 05/17/22 lactulose 20 gram/30 mL oral 20 g PO DAILY 03/20/22 05/17/22 solution metoprolol tartrate 25 mg tablet 25 mg PO BID 03/20/22 05/17/22 gabapentin 300 mg capsule 300 mg PO TID 05/17/22 05/17/22 hydralazine 25 mg tablet 25 mg PO TID 05/17/22 05/17/22 insulin glargine 100 unit/mL (3 20 unit subcut BID 05/17/22 05/17/22 mL) subcutaneous pen (Lantus Solostar U-100 Insulin) insulin lispro 100 unit/mL See Protocol subcut QIDACHS 05/17/22 05/17/22 subcutaneous pen (Humalog KwikPen (U-100) Insulin) metformin 1,000 mg tablet 1,000 mg PO BID 05/17/22 05/17/22 Previous Rx's Medication Instructions Recorded furosemide 20 mg tablet 20 mg PO QAM #30 tabs 03/22/22 Allergies Allergy/AdvReac Type Severity Reaction Status Date / Time pollen extracts Allergy Unknown Verified 03/20/22 13:42 ragweed pollen Allergy Unknown Verified 03/20/22 13:42 Review of Systems Review of Systems: Constitutional : + Sweats No Weight loss, No Fever, No Chills, No Fatigue, No Malaise ENT/Mouth : No Hearing loss, No Ear Pain, No Nasal Congestion, No Sinus Pain, No Hoarseness, No sore throat, No Rhinorrhea, No Swallowing Difficulty Eyes: No Eye Pain, No Swelling, No Redness, No Foreign Body, No Discharge, No Vision Changes Cardiovascular : + SOB, + Dyspnea on Exertion, +Orthopnea, + Edema to BL lower extremities, No Chest Pain, No Palpitations Respiratory : + Cough, No Sputum, No Wheezing, No Smoke Exposure, No Dyspnea Gastrointestinal : + Abdominal Bloating No Nausea, No Vomiting, No Diarrhea, No Constipation, No abdominal Pain, No Hematochezia, No Melena Genitourinary : No Dysuria, No Urinary Frequency, No Hematuria, No Urinary Incontinence, No Urgency, No Flank Pain, No Urinary Flow Changes, No Hesitancy Musculoskeletal : No joint pain, No Myalgias, No Joint Swelling Skin : No Skin Lesions, No rash Neuro : No Weakness, No Numbness, No Paresthesias, No Loss of Consciousness, No Dizziness, No Headache Psych : No Anxiety/Panic, No Depression, No SI/HI/AH/VH, No Social Issues, Heme/Lymph: No Bruising, No Bleeding,No Lymphadenopathy Endocrine : No Polyuria, No Polydipsia, No Temperature Intolerance Yes all other systems are reviewed and are negative [facility] Past Medical History Attestation statement: The following information was validated with the patient. Source: old records reviewed and nursing notes reviewed Medical History Abnormal findings on diagnostic imaging of liver and biliary tract Acute kidney failure, unspecified Acute respiratory failure with hypoxia Alcohol abuse, uncomplicated Alcoholic cirrhosis of liver with ascites Allergic rhinitis due to pollen Anemia Ataxia Cannabis use, unspecified, uncomplicated Chronic kidney disease, stage 3 unspecified Chronic renal failure CKD (chronic kidney disease) stage 3, GFR 30-59 ml/min Cocaine abuse, uncomplicated Dementia Dementia in other diseases classified elsewhere with behavioral disturbance Diabetes Disorder of urea cycle metabolism, unspecified Drug abuse, cocaine type Dysphagia, oral phase Dysphagia, oropharyngeal phase Essential (primary) hypertension Essential tremor ETOH abuse Hepatic failure, unspecified without coma Hepatomegaly, not elsewhere classified Hereditary and idiopathic neuropathy, unspecified Hereditary ataxia, unspecified Hyperosmolality and hypernatremia Intracranial hemorrhage, subdural Mild cognitive impairment, so stated Muscle weakness (generalized) Myopia, bilateral Orthostatic hypotension Osteophyte, unspecified joint Other chronic allergic conjunctivitis Other lack of coordination Other pancytopenia Other skin changes Other specified eating disorder Other speech disturbances Pain in unspecified shoulder Parkinson disease Pneumonitis due to inhalation of food and vomit Repeated falls Schizophrenia Sepsis, unspecified organism Subdural hematoma Tinea pedis Toxic metabolic encephalopathy Traumatic subdural hemorrhage without loss of consciousness, subsequent encounter Type 2 diabetes mellitus with diabetic polyneuropathy Unspecified dementia with behavioral disturbance Unsteadiness on feet Family History Family History Other Hypertension Social History Social History Household Members: Other Household Members Other:: Other residents Housing: [facility] Housing Other:: [facility] Do you presently have visiting nurse or other home services: No Unable to assess alcohol history related to: Unknown Alcohol intake: former Patient Tobacco Use Status: Former Tobacco user Cigarettes Per Day: 1 Second Hand Smoke Exposure: No Advance Directives: No Advance Directives Information Provided: No service: No ([employer]) Current occupational status: disabled Physical Exam ED Vital Signs: Vital Signs - 24 hr 05/17/22 15:39 Temperature 97.7 F Pulse Rate 61 Respiratory Rate 15 Blood Pressure 150/57 H Pulse Oximetry 97 Oxygen Delivery Method Room Air BMI result Body Mass Index 34.0 vital signs have been reviewed as normal and appeared to be correct. Blood pressure 150/57. Heart rate normal. Respiration rate normal. Temperature normal. Oxygen saturation normal. Appearance: Alert. Oriented X3. No acute distress. Head: Normal external exam. Normocephalic. Atraumatic. Eyes: PERRLA. EOMI. Conjunctiva and sclera normal. Eyelids normal. ENT: EAC normal. Pharynx normal. Uvula midline. Moist mucous membranes. No le sions/ulcerations or masses noted on the tongue. Normal voice. No trismus noted. No drooling noted. No muffled voice noted. Neck: Normal inspection. Neck supple. FROM. No adenopathy. Thyroid Normal. No tracheal deviation noted. No crepitus is noted. No meningeal signs. CVS: Normal heart rate and rhythm. Heart sound normal. Pulses normal throughout. No murmurs/rales/gallops. Respiratory: No respiratory distress. Painless inspiration. Breath sounds normal. Rales noted at the bilateral lower bases, no wheezes or rhonchi.Chest nontender. No crepitus is noted. No accessory muscle usage noted or decreased air movement noted. No signs of trauma. Abdomen: Abdomen is distended and tympanic. Nontender. Bowel sounds normal in all 4 quadrants. No organomegaly noted. No visible injury noted. Back: No CVA tenderness. Full range of motion noted. Nontender. No signs of trauma. Patient neuro intact bilaterally and distally on all 4 extremities. Patient's reflexes intact bilaterally and distally on all 4 extremities. No rashes/lesion/induration/fluctuance or signs of infection noted. Skin: Skin warm and dry. Normal skin color. Normal skin turgor. No rashes/lesions/lacerations noted. Extremities: 3+ pitting edema noted to bilateral lower extremities. DP pulses are 1+ and diminished, but palpable. No calf tenderness is noted. Extremities exhibit normal range of motion and nontender. Neuro: Oriented X 3. No motor deficit. No sensory deficit. Reflexes normal. Normal steady gait. No focal neuro deficits noted. CN's II-XII intact bilaterally? Vascular: + radial pulses. Normal cap refill. No cyanosis noted to upper extremity nails and lower extremity toes nails. Course Course Course Narrative: 1430 This is a 61-year-old male with a past medical history of cirrhosis, hepatic encephalopathy, dementia, schizophrenia, pneumonia, and right tentorial subdural, who presents today from skilled nursing via EMS with complaints of 30 lb weight gain for 3 weeks . He is a poor historian but reports that since he has noted some significant abdominal bloating as well as bilateral lower extremity edema. He states having some shortness of breath as well as orthopnea and hot flashes . He denies any chest pain, palpitations, calf pain, nausea, vomiting, or diarrhea at this time. Plan: CBC, CMP, PT/INR VBG, COVID, CT abdomen and pelvis without contrast, chest x- ray, EKG, troponin, BNP, and magnesium ordered and re-evaluate. Reevaluation(s) Reevaluation #1: EKG performed and ventricular rate 63 bpm, NC interval 170ms, QT/QTC 440/450ms. - labs reviewed patient with a mild baseline anemia has dropped 1.1 compared to prior H&H today is 7.5/23.1. - VBG is within normal limits. - Patient's anion gap 11. - BUN/creatinine 35/2.55 although per the hospitalist no on the patient's last discharge his baseline creatinine is 2.2. - random glucose 120. - BNP 1919 - total protein 6.2 - albumin 2.6. - patient negative for COVID. - chest x-ray revealed persistent but improved bilateral diffuse airspace disease is therefore due to patient reporting a cough and nonspecific chest x- ray and currently being at [facility] will obtain blood cultures and lactic and start the patient on Rocephin although this is not sepsis and patient does not require IV fluids and IV fluids with actually harm the patient and he would not benefit from it due to his CHF exacerbation. Does not fit SIRS criteria. - CT scan abdomen pelvis without IV contrast revealed chronic cirrhotic live r/splenomegaly no ascites. Some constipation otherwise no other acute processes. - therefore at this time patient will be started on IV fluids and given 40 mg of IV Lasix for his CHF exacerbation plan to admit for CHF exacerbation/pneumonitis discussed this case with Dr. Man who agrees with the plan and patient as well. Time: 15:56 Medical Decision Making Medical Records Medical records reviewed: Yes I reviewed the patient's medical records. Lab Data Lab results reviewed: Yes I reviewed the patient's lab results. Result diagrams: 05/17/22 14:56 05/17/22 14:56 Labs: Lab Results 05/17/22 07 07/04/03 Range/Units 14:56 14:56 14:56 WBC 6.0 (4.8-10.8) X10*3/uL RBC 2.44 L (4.60-5.80) X10*6/uL Hgb 7.5 L (14.0-18.0) g/dl Hct 23.1 L (42.0-52.0) % MCV 94.7 (80.0-98.0) fL MCH 30.7 (27.0-33.0) pg MCHC 32.5 (31.0-36.0) g/dl RDW 18.5 H (11.0-16.0) % Plt Count 102 L (160-400) X10*3/uL MPV 10.5 (9.4-12.4) fL Immature Gran % (Auto) 0.2 (0.0-0.4) % Neut % (Auto) 59.9 (45-73) % Lymph % (Auto) 19.8 L (20-40) % Humphreys % (Auto) 10.9 (2-11) % Eos % (Auto) 8.9 H (0-4) % Baso % (Auto) 0.3 (0-2) % Lymph # (Auto) 1.2 (1.2-4.9) X10*3/uL Humphreys # (Auto) 0.7 (0.1-1.2) X10*3/uL Eos # (Auto) 0.5 H (0.0-0.4) X10*3/uL Baso # (Auto) 0.0 (0.0-0.2) X10*3/uL Abs Immat Gran (auto) 0.01 (0.00-0.03) X10*3/uL Absolute Neuts (auto) 3.6 (2.0-8.3) x10*3/uL Absolute Nucleated RBC 0.000 (0.0-0.012) X10*3/uL Nucleated RBC % (auto) 0.0 (0.0-0.2) /100WBC PT (10.0-13.1) SEC INR (0.9-1.1) VBG pH (7.32-7.43) VBG pCO2 mmHg VBG pO2 mmHg VBG HCO3 (22-26) mmol/L VBG O2 Saturation % VBG Base Excess mmol/L Sodium 136 (135-145) mmol/L Potassium 4.8 (3.3-5.1) mmol/L Chloride 108 (96-108) mmol/L Carbon Dioxide 22 (22-29) mmol/L Anion Gap 11 L (12-20) BUN 35 H (9-16) mg/dL Creatinine 2.55 H (0.5-1.4) mg/dL Estim Creat Clear Calc 36.4 Estimated GFR 26 Random Glucose 120 H D (60-115) mg/dL Lactic Acid (0.5-2.0) mmol/L Calcium 8.2 L D (8.4-10.2) mg/dL Magnesium 2.5 (1.6-2.6) mg/dL Total Bilirubin 0.8 (0.0-1.0) mg/dL AST 26 (5-37) U/L ALT 6 (0-40) U/L Alkaline Phosphatase 105 D (39-117) U/L Troponin I High Sens (<3.5-35.0) ng/L B-Natriuretic Peptide 1919 H (<100) pg/mL Total Protein 6.2 L (6.5-8.0) g/dL Albumin 2.6 L (3.5-5.0) g/dL COVID-19 (JAS) (Negative) COVID-19 Clin Com 05/17/22 05/17/22 05/17/22 Range/Units 14:56 14:56 14:56 WBC (4.8-10.8) X10*3/uL RBC (4.60-5.80) X10*6/uL Hgb (14.0-18.0) g/dl Hct (42.0-52.0) % MCV (80.0-98.0) fL MCH (27.0-33.0) pg MCHC (31.0-36.0) g/dl RDW (11.0-16.0) % Plt Count (160-400) X10*3/uL MPV (9.4-12.4) fL Immature Gran % (Auto) (0.0-0.4) % Neut % (Auto) (45-73) % Lymph % (Auto) (20-40) % Humphreys % (Auto) (2-11) % Eos % (Auto) (0-4) % Baso % (Auto) (0-2) % Lymph # (Auto) (1.2-4.9) X10*3/uL Humphreys # (Auto) (0.1-1.2) X10*3/uL Eos # (Auto) (0.0-0.4) X10*3/uL Baso # (Auto) (0.0-0.2) X10*3/uL Abs Immat Gran (auto) (0.00-0.03) X10*3/uL Absolute Neuts (auto) (2.0-8.3) x10*3/uL Absolute Nucleated RBC (0.0-0.012) X10*3/uL Nucleated RBC % (auto) (0.0-0.2) /100WBC PT 14.4 H (10.0-13.1) SEC INR 1.2 H (0.9-1.1) VBG pH (7.32-7.43) VBG pCO2 mmHg VBG pO2 mmHg VBG HCO3 (22-26) mmol/L VBG O2 Saturation % VBG Base Excess mmol/L Sodium (135-145) mmol/L Potassium (3.3-5.1) mmol/L Chloride (96-108) mmol/L Carbon Dioxide (22-29) mmol/L Anion Gap (12-20) BUN (9-16) mg/dL Creatinine (0.5-1.4) mg/dL Estim Creat Clear Calc Estimated GFR Random Glucose (60-115) mg/dL Lactic Acid (0.5-2.0) mmol/L Calcium (8.4-10.2) mg/dL Magnesium (1.6-2.6) mg/dL Total Bilirubin (0.0-1.0) mg/dL AST (5-37) U/L ALT (0-40) U/L Alkaline Phosphatase (39-117) U/L Troponin I High Sens 25.2 (<3.5-35.0) ng/L B-Natriuretic Peptide (<100) pg/mL Total Protein (6.5-8.0) g/dL Albumin (3.5-5.0) g/dL COVID-19 (JAS) Negative (Negative) COVID-19 Clin Com See Note 05/17/22 05/17/22 Range/Units 15:03 16:10 WBC (4.8-10.8) X10*3/uL RBC (4.60-5.80) X10*6/uL Hgb (14.0-18.0) g/dl Hct (42.0-52.0) % MCV (80.0-98.0) fL MCH (27.0-33.0) pg MCHC (31.0-36.0) g/dl RDW (11.0-16.0) % Plt Count (160-400) X10*3/uL MPV (9.4-12.4) fL Immature Gran % (Auto) (0.0-0.4) % Neut % (Auto) (45-73) % Lymph % (Auto) (20-40) % Humphreys % (Auto) (2-11) % Eos % (Auto) (0-4) % Baso % (Auto) (0-2) % Lymph # (Auto) (1.2-4.9) X10*3/uL Humphreys # (Auto) (0.1-1.2) X10*3/uL Eos # (Auto) (0.0-0.4) X10*3/uL Baso # (Auto) (0.0-0.2) X10*3/uL Abs Immat Gran (auto) (0.00-0.03) X10*3/uL Absolute Neuts (auto) (2.0-8.3) x10*3/uL Absolute Nucleated RBC (0.0-0.012) X10*3/uL Nucleated RBC % (auto) (0.0-0.2) /100WBC PT (10.0-13.1) SEC INR (0.9-1.1) VBG pH 7.35 (7.32-7.43) VBG pCO2 39 mmHg VBG pO2 61 mmHg VBG HCO3 21 L (22-26) mmol/L VBG O2 Saturation 89.0 % VBG Base Excess -3.4 mmol/L Sodium (135-145) mmol/L Potassium (3.3-5.1) mmol/L Chloride (96-108) mmol/L Carbon Dioxide (22-29) mmol/L Anion Gap (12-20) BUN (9-16) mg/dL Creatinine (0.5-1.4) mg/dL Estim Creat Clear Calc Estimated GFR Random Glucose (60-115) mg/dL Lactic Acid 1.9 (0.5-2.0) mmol/L Calcium (8.4-10.2) mg/dL Magnesium (1.6-2.6) mg/dL Total Bilirubin (0.0-1.0) mg/dL AST (5-37) U/L ALT (0-40) U/L Alkaline Phosphatase (39-117) U/L Troponin I High Sens (<3.5-35.0) ng/L B-Natriuretic Peptide (<100) pg/mL Total Protein (6.5-8.0) g/dL Albumin (3.5-5.0) g/dL COVID-19 (JAS) (Negative) COVID-19 Clin Com Imaging Data Chest x-ray: Attestation: I personally reviewed and interpreted this imaging study as follows: Radiologist's impression: FINDINGS: Very mild patchy diffuse interstitial infiltrate or areas of bronchial thickening noted. Pneumonitis could have such an appearance. Heart size borderline with normal caliber pulmonary vessels. Chronicity of this finding is uncertain, as the lungs? appear better aerated today than on the prior exam of 03/20/2022. XR/XR chest 1V IMPRESSION: Persistent but improved bilateral diffuse airspace disease. CT scan abdomen pelvis with IV contrast: Attestation: I personally reviewed and interpreted this imaging study as follows: Radiologist's impression: FINDINGS: LUNG BASES: The visualized lung bases are clear. There is bilateral gynecomastia. LIVER, GALLBLADDER, AND BILIARY TREE: The liver is cirrhotic appearing. The gallbladder is normal. There is no biliary duct dilatation. PANCREAS: Unremarkable.? SPLEEN: The spleen is enlarged. ADRENAL GLANDS: Unremarkable.? KIDNEYS AND URETERS: The kidneys are normal in size, shape, and attenuation. No hydronephrosis, hydroureter, or calculi seen. No perinephric stranding. ? BLADDER: Ybarra catheter in the bladder. GASTROINTESTINAL TRACT: Rectal tube. Stool throughout the colon suggestive of constipation. Nasogastric tube in the stomach.? ABDOMINAL WALL: No significant hernia is appreciated.? LYMPH NODES: Normal. VASCULAR: Large upper abdominal varices and probable splenorenal shunt. Atherosclerotic disease. No ascites. PELVIC VISCERA: Unremarkable.? OSSEOUS STRUCTURES: Degenerative changes of the spine and hip joints.? CT/CT abdomen pelvis wo con IMPRESSION: Very limited exam due to motion artifact. Cirrhotic appearing liver, varices and splenomegaly. No ascites. Constipation.? ? Fleischner guidelines were followed. ECG Data Attestation: I personally reviewed and interpreted this ECG as follows: Interpretation: EKG normal sinus rhythm with ventricular rate of 63 with left axis deviation and low voltage criteria QRS otherwise nonspecific ST abnormalities no acute ischemic changes are noted. Similar compared to prior EKG 03/20/2022 Critical Care Time Critical Care Time Critical Care Time: Yes Total Critical Care Time: 60 Attestation: I personally attest to this time spent taking care of the patient Discharge Plan Discharge Clinical Impression: Acute exacerbation of CHF (congestive heart failure), Acute kidney injury supe rimposed on chronic kidney disease, Cirrhosis Patient Disposition: Admitted As Inpatient
[2022-05-17 15:04] LABS: MANUAL DIFF FLAG NO
[2022-05-17 15:05] LABS: Basophils Percent Auto 0.3 % (0-2); Eosinophils Absolute Auto 0.5 X10*3/uL (0.0-0.4); Eosinophils Percent Auto 8.9 % (0-4); Hematocrit 23.1 % (42.0-52.0); Hemoglobin 7.5 g/dl (14.0-18.0); Imm Gran Abs Auto 0.01 X10*3/uL (0.00-0.03); Imm Gran Pct Auto 0.2 % (0.0-0.4); Lymphocytes Absolute Auto 1.2 X10*3/uL (1.2-4.9); Lymphocytes Percent Auto 19.8 % (20-40); Mean Corpuscular HGB Conc 32.5 g/dl (31.0-36.0); Mean Corpuscular Hemoglobin 30.7 pg (27.0-33.0); Mean Corpuscular Volume 94.7 fL (80.0-98.0); Mean Platelet Volume 10.5 fL (9.4-12.4); Monocytes Absolute Auto 0.7 X10*3/uL (0.1-1.2); Monocytes Percent Auto 10.9 % (2-11); Neutrophils Absolute Auto 3.6 x10*3/uL (2.0-8.3); Neutrophils Percent Auto 59.9 % (45-73); Platelet Count 102 X10*3/uL (160-400); Red Blood Count 2.44 X10*6/uL (4.60-5.80); Red Cell Distribution Width 18.5 % (11.0-16.0)
[2022-05-17 15:08] LABS: Venous Blood Gas Refer to POC result
[2022-05-17 15:09] LABS: VBG Base Excess -3.4 mmol/L; VBG HCO3 21 mmol/L (22-26); VBG pCO2 39 mmHg; VBG pH 7.35 (7.32-7.43); VBG pO2 61 mmHg
[2022-05-17 15:13] LABS: INTERNATIONAL NORM RATIO 1.2 (0.9-1.1); Prothrombin Time 14.4 SEC (10.0-13.1)
[2022-05-17 15:21] LABS: COVID-19 Test Negative (Negative); IDNOW Serial# 55D5AD1C
[2022-05-17 15:22] LABS: Alanine Aminotransferase 6 U/L (0-40); Albumin Level 2.6 g/dL (3.5-5.0); Alkaline Phosphatase 105 U/L (39-117); Anion Gap 11 (12-20); Aspartate Amino Transferase 26 U/L (5-37); Bilirubin Total 0.8 mg/dL (0.0-1.0); Blood Urea Nitrogen 35 mg/dL (9-16); Calcium 8.2 mg/dL (8.4-10.2); Carbon Dioxide 22 mmol/L (22-29); Chloride 108 mmol/L (96-108); Creatinine Clr Calc Pharmacy 36.4; Estimated Glomerular Filt Rate 26; Glucose Random 120 mg/dL (60-115); Magnesium 2.5 mg/dL (1.6-2.6); Potassium 4.8 mmol/L (3.3-5.1); Sodium 136 mmol/L (135-145); Total Protein 6.2 g/dL (6.5-8.0)
[2022-05-17 15:27] LABS: B Type Natriuretic Peptide 1919 pg/mL (<100); Troponin-I High Sensitivity 25.2 ng/L (<3.5-35.0)
[2022-05-17 15:39] VITALS: BP 150/57; PULSE 61; RESP 15; TEMP 36.5; O2SAT 97
[2022-05-17] MEDS: Furosemide 40 MG/4 ML VIAL IVPUSH (16:01)
[2022-05-17 16:33] LABS: Lactic Acid 1.9 mmol/L (0.5-2.0)
--- NOTE | 2022-05-17 16:48 | PM.IMHP ---
History of Present Illness Date of Service: 05/17/22 Chief Complaint: leg edema and shortness of breath 61 years old male with PMH of CKD stage 3 stable with baseline Cr of about 2.5, dementia, cirrhosis, HTN that is controlled, , Parkinson, history of subdura hematoma that is stable, schizophrenia stable of meds, , diastolic heart failure EF 60%, among others who presents to the hospital from [facility] with increasing leg edema and SOB. He reports 30 Ib weight gain over 3 weeks, he has marked leg edema. BNP is nearly 2000, CXR shows diffuse infiltrate compatible with CHF. He has no cough, fever or chills. His has been given IV Lasix and is being admitted for mangement of CHF Review of Systems Review of Systems: Gen: no fever Resp: + sob, no cough CV: no chest, no ANN,+ leg edema GI: No n/v, no abd pain Neuro: No confusion Yes all other systems are reviewed and are negative [facility] Medical History Abnormal findings on diagnostic imaging of liver and biliary tract Acute kidney failure, unspecified Acute respiratory failure with hypoxia Alcohol abuse, uncomplicated Alcoholic cirrhosis of liver with ascites Allergic rhinitis due to pollen Anemia Ataxia Cannabis use, unspecified, uncomplicated Chronic kidney disease, stage 3 unspecified Chronic renal failure CKD (chronic kidney disease) stage 3, GFR 30-59 ml/min Cocaine abuse, uncomplicated Dementia Dementia in other diseases classified elsewhere with behavioral disturbance Diabetes Disorder of urea cycle metabolism, unspecified Drug abuse, cocaine type Dysphagia, oral phase Dysphagia, oropharyngeal phase Essential (primary) hypertension Essential tremor ETOH abuse Hepatic failure, unspecified without coma Hepatomegaly, not elsewhere classified Hereditary and idiopathic neuropathy, unspecified Hereditary ataxia, unspecified Hyperosmolality and hypernatremia Intracranial hemorrhage, subdural Mild cognitive impairment, so stated Muscle weakness (generalized) Myopia, bilateral Orthostatic hypotension Osteophyte, unspecified joint Other chronic allergic conjunctivitis Other lack of coordination Other pancytopenia Other skin changes Other specified eating disorder Other speech disturbances Pain in unspecified shoulder Parkinson disease Pneumonitis due to inhalation of food and vomit Repeated falls Schizophrenia Sepsis, unspecified organism Subdural hematoma Tinea pedis Toxic metabolic encephalopathy Traumatic subdural hemorrhage without loss of consciousness, subsequent encounter Type 2 diabetes mellitus with diabetic polyneuropathy Unspecified dementia with behavioral disturbance Unsteadiness on feet Family History Other Hypertension Social History Household Members: Other Household Members Other:: Other residents Housing: [facility] Housing Other:: [facility] Do you presently have visiting nurse or other home services: No Unable to assess alcohol history related to: Unknown Alcohol intake: former Patient Tobacco Use Status: Former Tobacco user Cigarettes Per Day: 1 Second Hand Smoke Exposure: No Advance Directives: No Advance Directives Information Provided: No service: No ([employer]) Current occupational status: disabled Meds Allergies Allergy/AdvReac Type Severity Reaction Status Date / Time pollen extracts Allergy Unknown Verified 03/20/22 13:42 ragweed pollen Allergy Unknown Verified 03/20/22 13:42 Active Medications: Current Medications Pharmacy Consult (Consult Rx Perform Med Rec) 1 each MISCELLANE ONCE PRN PRN Reason: Consult order Home Medications Medication Instructions Recorded Confirmed Last Taken Type benztropine 1 mg tablet 1 mg PO BID 11/18/20 05/17/22 Unknown History carbidopa 25 mg-levodopa 100 mg 1 tab PO QID 11/18/20 05/17/22 Unknown History tablet (Sinemet) fluphenazine decanoate 25 mg/mL 50 mg subcut Q14D 11/18/20 05/17/22 03/16/22 History injection solution miconazole nitrate 2 % topical 1 spray topical BID PRN fungal 11/18/20 05/17/22 Unknown History spray (Lotrimin AF) infection tramadol 50 mg tablet 50 mg PO BID 11/18/20 05/17/22 Unknown History docusate sodium 100 mg tablet 100 mg PO BEDTIME 12/10/20 05/17/22 Unknown History sennosides 8.6 mg tablet (senna) 8.6 mg PO DAILY PRN Constipation 12/10/20 05/17/22 Unknown History amlodipine 10 mg tablet 10 mg PO BEDTIME 02/19/22 05/17/22 Unknown History levothyroxine 25 mcg tablet 25 mcg PO DAILY@0600 02/19/22 05/17/22 Unknown History multivitamin 1 tab PO DAILY 02/19/22 05/17/22 Unknown History rifaximin 550 mg tablet (Xifaxan) 1 tab PO BID 02/19/22 05/17/22 Unknown History Calazime Skin Protectant 1 applic topical QSHIFT 03/20/22 05/17/22 Unknown History acetaminophen 325 mg tablet 650 mg PO Q4H PRN PAIN/TEMP>100 03/20/22 05/17/22 Unknown History bisacodyl 10 mg rectal suppository 10 mg ID DAILY PRN Constipation 03/20/22 05/17/22 Unknown History guaifenesin 100 mg/5 mL oral liquid 200 mg PO Q4H PRN Cough 03/20/22 05/17/22 Unknown History lactulose 20 gram/30 mL oral 20 g PO DAILY 03/20/22 05/17/22 Unknown History solution metoprolol tartrate 25 mg tablet 25 mg PO BID 03/20/22 05/17/22 Unknown History gabapentin 300 mg capsule 300 mg PO TID 05/17/22 05/17/22 Unknown History hydralazine 25 mg tablet 25 mg PO TID 05/17/22 05/17/22 Unknown History insulin glargine 100 unit/mL (3 20 unit subcut BID 05/17/22 05/17/22 Unknown History mL) subcutaneous pen (Lantus Solostar U-100 Insulin) insulin lispro 100 unit/mL See Protocol subcut QIDACHS 05/17/22 05/17/22 Unknown History subcutaneous pen (Humalog KwikPen (U-100) Insulin) metformin 1,000 mg tablet 1,000 mg PO BID 05/17/22 05/17/22 Unknown History Physical Exam Vital Signs and Narrative: Vital Signs: Last Vital Signs Temp 97.7 F 05/17/22 15:39 Pulse 61 05/17/22 15:39 Resp 15 05/17/22 15:39 BP 150/57 H 05/17/22 15:39 Pulse Ox 97 05/17/22 15:39 O2 Del Method 05/17/22 15:39 BMI result Body Mass Index 34.0 Const: Other: Constitutional: Alert, in no distress, overweight. Mental Status: Oriented to person, place and time. Eyes: Pupils are equal, round and reactive to light. Ear, Nose and Throat: Oropharynx clear, mucous membranes moist. Ears and nose without eformities. Trachea midline. Respiratory: Clear to auscultation. No wheezing, rales or rhonchi. Cardiovascular: S1 S2 regular. No murmurs, rubs or gallops. leg edema Gastrointestinal: Abdomen soft, non-tender, non-distended. Normal bowel sounds.? Neurologic: Cranial nerves II-XII grossly intact. No focal neurological deficits. Moves all extremities spontaneously.? Skin: No rashes or lesions.? Musculoskeletal: No cyanosis or clubbing. Psychiatric: Normal mood and affect? Results Labs CBC and Chem 7: 05/17/22 14:56 05/17/22 14:56 Labs: Laboratory Results - last 24 hr 05/17/22 05/17/22 05/17/22 14:56 14:56 14:56 MCV 94.7 MCH 30.7 MCHC 32.5 RDW 18.5 H Plt Count 102 L MPV 10.5 Immature Gran % (Auto) 0.2 Neut % (Auto) 59.9 Lymph % (Auto) 19.8 L [place] % (Auto) 10.9 Eos % (Auto) 8.9 H Baso % (Auto) 0.3 Lymph # (Auto) 1.2 [place] # (Auto) 0.7 Eos # (Auto) 0.5 H Baso # (Auto) 0.0 Abs Immat Gran (auto) 0.01 Absolute Neuts (auto) 3.6 Absolute Nucleated RBC 0.000 Nucleated RBC % (auto) 0.0 PT INR VBG pH VBG pCO2 VBG pO2 VBG HCO3 VBG O2 Saturation VBG Base Excess Anion Gap 11 L Estim Creat Clear Calc 36.4 Estimated GFR 26 Random Glucose 120 H D Lactic Acid Calcium 8.2 L D Magnesium 2.5 Total Bilirubin 0.8 AST 26 ALT 6 Alkaline Phosphatase 105 D Troponin I High Sens B-Natriuretic Peptide 1919 H Total Protein 6.2 L Albumin 2.6 L COVID-19 (JAS) COVID-19 Clin Com 05/17/22 05/17/22 05/17/22 14:56 14:56 14:56 MCV MCH MCHC RDW Plt Count MPV Immature Gran % (Auto) Neut % (Auto) Lymph % (Auto) [place] % (Auto) Eos % (Auto) Baso % (Auto) Lymph # (Auto) [place] # (Auto) Eos # (Auto) Baso # (Auto) Abs Immat Gran (auto) Absolute Neuts (auto) Absolute Nucleated RBC Nucleated RBC % (auto) PT 14.4 H INR 1.2 H VBG pH VBG pCO2 VBG pO2 VBG HCO3 VBG O2 Saturation VBG Base Excess Anion Gap Estim Creat Clear Calc Estimated GFR Random Glucose Lactic Acid Calcium Magnesium Total Bilirubin AST ALT Alkaline Phosphatase Troponin I High Sens 25.2 B-Natriuretic Peptide Total Protein Albumin COVID-19 (JAS) Negative COVID-19 Clin Com See Note 05/17/22 05/17/22 15:03 16:10 MCV MCH MCHC RDW Plt Count MPV Immature Gran % (Auto) Neut % (Auto) Lymph % (Auto) [place] % (Auto) Eos % (Auto) Baso % (Auto) Lymph # (Auto) [place] # (Auto) Eos # (Auto) Baso # (Auto) Abs Immat Gran (auto) Absolute Neuts (auto) Absolute Nucleated RBC Nucleated RBC % (auto) PT INR VBG pH 7.35 VBG pCO2 39 VBG pO2 61 VBG HCO3 21 L VBG O2 Saturation 89.0 VBG Base Excess -3.4 Anion Gap Estim Creat Clear Calc Estimated GFR Random Glucose Lactic Acid 1.9 Calcium Magnesium Total Bilirubin AST ALT Alkaline Phosphatase Troponin I High Sens B-Natriuretic Peptide Total Protein Albumin COVID-19 (JAS) COVID-19 Clin Com Imaging Radiologist's Impressions: Impressions Chest X-Ray 05/17/22 14:25 IMPRESSION: Persistent but improved bilateral diffuse airspace disease. Abdomen/Pelvis CT 05/17/22 14:34 IMPRESSION: Very limited exam due to motion artifact. Cirrhotic appearing liver, varices and splenomegaly. No ascites. Constipation. Fleischner guidelines were followed. Assessment and Plan (1) Acute exacerbation of CHF (congestive heart failure): Status: Acute (2) Acute kidney injury superimposed on chronic kidney disease: Status: Acute (3) Acute on chronic diastolic (congestive) heart failure: Status: Acute Plan 61/m with CKD3, HTN, diastolic CHF here with exacerbation of heart failure with no evidence of acute ischemia-- #Acute on chronic diastolic CHF--with marked fluid overload -IV Lasis drip -cardiology eval -Ybarra for acurate I/O -limit salt -consider repeat Echo, last echo from February 2022 showed EF of 60 to 65% -monitor BMP #CKD 3 baseline Cr --2.5, monitor while on diuretics #Anemia of chronic disease-stable--Stable H/H #Diabetes--on Levemir, convert to Lantus, add SSI #Parkinson--Continue Sinemet #HTN--continue continue Norvasc, metoprolol #Hypothyrodisim--continue Levothyroxine #history of cirrhosis of liver--lactulose, Xifaxan DVT prophylaxis: Heparin Admission to [facility] at least 2 midnights for management of heart failure exacerbtaion with IV diureitics Full code Quality Stroke Does the patient have a stroke diagnosis?: No VTE Prior VTE?: No VTE Risk Level:: Medical - moderate - high VTE Device Contraindication: Treatment Not Indicated VTE Drug Contraindication: N/A - Med Ordered
--- NOTE | 2022-05-17 17:38 | PHA.MEDREC ---
Pharmacy Consult ? Medication Reconciliation Pharmacy has completed the medication reconciliation. List obtained from [facility].
[2022-05-17 18:57] LABS: B Type Natriuretic Peptide 1797 pg/mL (<100)
[2022-05-17 19:15] VITALS: BP 156/61; PULSE 71; RESP 18; O2SAT 98
[2022-05-17] MEDS: Albumin Human 25 % 50 ML 100 ML IV (19:21)
[2022-05-17] MEDS: Heparin Sodium,Porcine 5,000 UNIT/ML VIAL 5000 UNIT SUBCUT (19:22)
[2022-05-17] MEDS: Furosemide 200 MG in 0.9 % Sodium Chloride 80 ML IVCONT (19:51)
--- NOTE | 2022-05-17 20:02 | PC.NURSE ---
Addendum entered by Evelin Srinivasan RN 05/17/22 21:34: 21:30 Dr Armstrong at bedside, patient agreed to placing josé catheter. 450 cc of urine removed upon placement. Will monitor. Original Note: Patient refusing josé catheter at this time, urinal at bedside. Dr. Keshawn Plascencia notified. Will monitor closely.
[2022-05-17 20:34] VITALS: BP 181/65; PULSE 76; RESP 20; O2SAT 97
[2022-05-17 20:53] VITALS: BP 177/68; PULSE 72; RESP 13; O2SAT 98
[2022-05-17 23:39] VITALS: BP 126/58; PULSE 74; RESP 22; TEMP 37.1; O2SAT 93
[2022-05-17 23:48] VITALS: BMI 38.7
[2022-05-18] VITALS (8 sets, daily range): BP systolic 119–200; BP diastolic 62–94; PULSE 72–112; RESP 18–22; TEMP 36.4–37.3; O2SAT 92–98
[2022-05-18] MEDS: hydrOXYzine HCL 25 MG TABLET PO (03:58)
--- NOTE | 2022-05-18 04:38 | PC.NURSE ---
ASSUMED CARE OF PT AT 2300. PT IN BED IN NO ACUTE DISTRESS. MOSTLY SLEEPING BUT FOUND PT AT 0130 WITH ALL LEADS OF THE ADMINISTRATIVE CLERK OFF AND IN BED WITH HIM, AND IV OUT WITH ANGIO INTACT AND LASIX DRIP INFUSING INTO THE BED. MONITOR REAPPLIED AND SHOWED NSR, [id number], NO ECTOPY. IV WAS RESTARTED RIGHT LOWER ARM AND LASIX DRIP RESUMED. PT FELL BACK ASLEEP BUT THEN REMOVED ADMINISTRATIVE CLERK AGAIN AND WENT IN TO CHECK ON HIM AND FOUND HIM IN BED WITH BLOODY SHEETS. PT PULLED OUT SIMON CATH WITH BALLOON STILL INFLATED AND WAS BLEEDING FROM THE PENIS. HE ALSO PULLED OUT IV AGAIN. DR JUDD WAS NOTIFIED AND ATARAX 25 MG PO ORDERED AND GIVEN. PT REFUSED TO SIMON CATH REINSERTED. ALLOWED IV TO BE RESTARTED AND #20 ANGIO INSERTED RIGHT LOWER ARM BUT REFUSED TO HAVE IV LASIX DRIP RESTARTED. DR JUDD INFORMEDOF THAT LASIX DRIP NOT INFUSING. LUNGS ARE CLEAR AT THIS TIME. URINE OUTPUT ABOUT 1000 ML SINCE ARRIVAL TO [facility] [place]. SBP ELEVATED 190'S-[address] JUDD INFORMED. MEDS NOT RECONCILED. TAKES AMLODIPINE AND HYDRALIZINE AT [facility]. AWAITING ORDERS FROM DR JUDD. COMPLETE BEDBATH GIVEN. SLIGHT SHORTNESS OF BREATH WITH ACTIVITY. IN BED NOW WITH HOB UP 30 DEGREES AND NO DISTRESS.
--- NOTE | 2022-05-18 06:44 | PM.EVENT ---
Event Note Date of Service: 05/18/22 Event Note: Hematuria: Patient pulled out his José early in a.m.. Followed by patient noted to have bleeding from his penis. Notified urology Dr. Carlisle. mentioned to try leaving out josé.
--- NOTE | 2022-05-18 07:36 | PC.NURSE ---
PT CONTINUED TO GET OOB. BLEEDING FROM SIMON POST SELF REMOVAL OF SIMON WITH BALLOON INTACT. BED WAS BLOODY AND DROPS OF BLOOD ON FLOOR. PT CLEANED AND BTB. DR JUDD INFORMED OF BLEEDING FROM SIMON. BP REMAINS HIGH 194/69. AWARE OF THIS. NO NEW ORDERS FOR BP.
--- NOTE | 2022-05-18 09:30 | HO.PM.IMPN ---
Subjective Subjective Date of Service: 05/18/22 Interval History: Chief complaint: follow-up on decompensated heart failure. Interval history: Report no shortness of breath. He removed José catheter and IV overnight and therefore did not get diuretic. Review of Systems Gen: no fever Resp: + sob, no cough CV: no chest, no ANN,+ leg edema GI: No n/v, no abd pain Neuro: No confusion Physical Exam Vital Signs: Vital Signs: Last Vital Signs Temp 98.5 F 05/18/22 07:46 Pulse 75 05/18/22 07:46 Resp 20 05/18/22 07:46 BP 183/63 H 05/18/22 07:46 Pulse Ox 97 05/18/22 07:46 O2 Del Method 05/18/22 07:46 BMI result Body Mass Index 38.7 Const: Other: Constitutional: Alert, in no distress, overweight. Respiratory: Clear to auscultation. No wheezing, rales or rhonchi. Cardiovascular: S1 S2 regular. No murmurs, rubs or gallops. 3+ leg edema Gastrointestinal: Abdomen soft, non-tender, non-distended. Normal bowel sounds.? Neurologic: Cranial nerves II-XII grossly intact. No focal neurological deficits. Moves all extremities spontaneously.? Skin: No rashes or lesions.? Musculoskeletal: No cyanosis or clubbing. Psychiatric: flat today Objective Data Active Medications Acetaminophen (Acetaminophen 325 Mg Tablet) 650 mg PO Q4H PRN PRN Reason: PAIN/TEMP>100 Amlodipine Besylate (Amlodipine Besylate 10 Mg Tablet) 10 mg PO BEDTIME [facility]; Protocol Benztropine Mesylate (Benztropine Mesylate 1 Mg Tablet) 1 mg PO BID [facility] Bisacodyl (Bisacodyl 10 Mg Supp.Rect) 10 mg [place] DAILY PRN PRN Reason: Constipation Carbidopa/Levodopa (Carbidopa/Levodopa 25/100 Tablet) 1 tab PO QID [facility] Docusate Sodium (Docusate Sodium 100 Mg Capsule) 100 mg PO BEDTIME [facility] Furosemide (Furosemide 40 Mg Tablet) 40 mg PO BID@0900,1800 [facility]; Protocol Furosemide (Furosemide 20 Mg Tablet) 20 mg PO QAM [facility]; Protocol Gabapentin (Gabapentin 300 Mg Capsule) 300 mg PO TID [facility] Guaifenesin (Guaifenesin 100 Mg/5 Ml Liquid) ml PO Q4H PRN PRN Reason: Cough Heparin Sodium (Porcine) (Heparin Sodium,Porcine 5,000 Unit/Ml Vial) 5,000 unit SUBCUT Q12H [facility] Last Admin: 05/18/22 06:13 Dose: Not Given Documented By: FUAD Non-Admin Reason: bleeding from penis Hydralazine HCl (Hydralazine Hcl 25 Mg Tablet) 25 mg PO TID [facility]; Protocol Insulin Glargine (Insulin Glargine,Hum.Rec.Anlog 100 Unit/Ml 10 Ml Vial) 20 unit SUBCUT BID [facility] Insulin Human Lispro (Insulin Lispro 100 Unit/Ml 3 Ml Vial) 0 unit SUBCUT QIDACHS [facility]; Protocol Lactulose (Lactulose 20 Gm/30 Ml Solution) 20 gm PO DAILY [facility] Levothyroxine Sodium (Levothyroxine Sodium 25 Mcg Tablet) 25 mcg PO DAILY@0600 [facility] Metoprolol Tartrate (Metoprolol Tartrate 25 Mg Tablet) 25 mg PO BID [facility]; Protocol Multivitamins/Vitamin C (Multivitamin Tablet) 1 tab PO DAILY [facility] Non-Formulary Medication (Calazime Skin Protectant) [facility] Non-Formul[facility] Medication (Miconazole Nitrate [Lotrimin Af]) 1 spray TOPICAL BID PRN PRN Reason: fungal infection Pharmacy Consult (Consult Rx Perform Med Rec) 1 each MISCELLANE ONCE PRN PRN Reason: Consult order Rifaximin (Rifaximin 550 Mg Tablet) 550 mg PO BID [facility] Senna (Sennosides 8.6 Mg Tablet) 8.6 mg PO DAILY PRN PRN Reason: Constipation Sodium Chloride (0.9 % Sodium Chloride Flush 3 Ml Syringe) 3 ml IVFLUSH QSHIFT [facility] Last Admin: 05/18/22 02:10 Dose: Not Given Documented By: FUAD Non-Admin Reason: IV Running Tramadol HCl (Tramadol Hcl 50 Mg Tablet) 50 mg PO BID [facility] Labs CBC & Chem 7: 05/17/22 14:56 05/17/22 14:56 Labs: Laboratory Results - last 24 hr 05/17/22 05/17/22 05/17/22 14:56 14:56 14:56 MCV 94.7 MCH 30.7 MCHC 32.5 RDW 18.5 H Plt Count 102 L MPV 10.5 Immature Gran % (Auto) 0.2 Neut % (Auto) 59.9 Lymph % (Auto) 19.8 L Wheeler % (Auto) 10.9 Eos % (Auto) 8.9 H Baso % (Auto) 0.3 Lymph # (Auto) 1.2 Wheeler # (Auto) 0.7 Eos # (Auto) 0.5 H Baso # (Auto) 0.0 Abs Immat Gran (auto) 0.01 Absolute Neuts (auto) 3.6 Absolute Nucleated RBC 0.000 Nucleated RBC % (auto) 0.0 PT INR VBG pH VBG pCO2 VBG pO2 VBG HCO3 VBG O2 Saturation VBG Base Excess Anion Gap 11 L Estim Creat Clear Calc 36.4 Estimated GFR 26 Random Glucose 120 H D Lactic Acid Calcium 8.2 L D Magnesium 2.5 Total Bilirubin 0.8 AST 26 ALT 6 Alkaline Phosphatase 105 D Troponin I High Sens B-Natriuretic Peptide 1919 H Total Protein 6.2 L Albumin 2.6 L COVID-19 (JAS) COVID-19 [employer] 05/17/22 05/17/22 05/17/22 14:56 14:56 14:56 MCV MCH MCHC RDW Plt Count MPV Immature Gran % (Auto) Neut % (Auto) Lymph % (Auto) Wheeler % (Auto) Eos % (Auto) Baso % (Auto) Lymph # (Auto) Wheeler # (Auto) Eos # (Auto) Baso # (Auto) Abs Immat Gran (auto) Absolute Neuts (auto) Absolute Nucleated RBC Nucleated RBC % (auto) PT 14.4 H INR 1.2 H VBG pH VBG pCO2 VBG pO2 VBG HCO3 VBG O2 Saturation VBG Base Excess Anion Gap Estim Creat Clear Calc Estimated GFR Random Glucose Lactic Acid Calcium Magnesium Total Bilirubin AST ALT Alkaline Phosphatase Troponin I High Sens 25.2 B-Natriuretic Peptide Total Protein Albumin COVID-19 (JAS) Negative COVID-19 [employer] [facility] See Note 05/17/22 05/17/22 05/17/22 15:03 16:10 18:23 MCV MCH MCHC RDW Plt Count MPV Immature Gran % (Auto) Neut % (Auto) Lymph % (Auto) Wheeler % (Auto) Eos % (Auto) Baso % (Auto) Lymph # (Auto) Wheeler # (Auto) Eos # (Auto) Baso # (Auto) Abs Immat Gran (auto) Absolute Neuts (auto) Absolute Nucleated RBC Nucleated RBC % (auto) PT INR VBG pH 7.35 VBG pCO2 39 VBG pO2 61 VBG HCO3 21 L VBG O2 Saturation 89.0 VBG Base Excess -3.4 Anion Gap Estim Creat Clear Calc Estimated GFR Random Glucose Lactic Acid 1.9 Calcium Magnesium Total Bilirubin AST ALT Alkaline Phosphatase Troponin I High Sens B-Natriuretic Peptide 1797 H Total Protein Albumin COVID-19 (JAS) COVID-19 Clin Com Assessment and Plan (1) Acute on chronic diastolic (congestive) heart failure: Status: Acute Plan 61/m with CKD3, HTN, diastolic CHF here with exacerbation of heart failure with no evidence of acute ischemia-- #Acute on chronic diastolic CHF--with marked fluid overload -Was started on IV Lasix drip but ripped out IV and José -cardiology eval -Follow I/O -limit salt -consider repeat Echo, last echo from February 2022 showed EF of 60 to 65% -monitor BMP, BNP #CKD 3 baseline Cr --2.5, monitor while on diuretics #Traumatic hematuria for removing josé--observe and if not better urology eval #Anemia of chronic disease-stable--Stable H/H #Diabetes--on Lantus and SSI, stop Metformin d/t renal failure #Parkinson--Continue Sinemet #HTN--continue continue Norvasc, metoprolol and Hydralazine #Hypothyrodisim--continue Levothyroxine #history of cirrhosis of liver--lactulose, Xifaxan-- #Schizophrenia--on Fluphenazine Q2 weeks DVT prophylaxis: Heparin Need for inpatient: IV diuretics for decompensated CHF Full code Quality Stroke Does the patient have a stroke diagnosis?: No VTE Prior VTE?: No VTE Risk Level:: Medical - moderate - high VTE Device Contraindication: Treatment Not Indicated VTE Drug Contraindication: N/A - Med Ordered
[2022-05-18 10:32] LABS: Anion Gap 13 (12-20); Blood Urea Nitrogen 38 mg/dL (9-16); Calcium 7.9 mg/dL (8.4-10.2); Carbon Dioxide 20 mmol/L (22-29); Chloride 108 mmol/L (96-108); Creatinine Clr Calc Pharmacy 41.3; Estimated Glomerular Filt Rate 27; Glucose Random 153 mg/dL (60-115); Potassium 4.5 mmol/L (3.3-5.1); Sodium 136 mmol/L (135-145)
[2022-05-18] MEDS: hydrALAZINE HCl 25 MG TABLET PO (10:49)
[2022-05-18] MEDS: Furosemide 40 MG TABLET PO ×2 (10:49→16:46)
[2022-05-18] MEDS: Lactulose 20 GM/30 ML SOLUTION PO (10:49)
[2022-05-18] MEDS: Gabapentin 300 MG CAPSULE PO ×3 (10:49→23:51)
[2022-05-18] MEDS: traMADoL HCL 50 MG TABLET PO ×2 (10:50→23:58)
[2022-05-18] MEDS: Benztropine Mesylate 1 MG TABLET PO (10:50)
[2022-05-18] MEDS: rifAXIMin 550 MG TABLET PO ×2 (10:50→23:52)
[2022-05-18] MEDS: Furosemide 20 MG TABLET PO (10:50)
[2022-05-18] MEDS: Metoprolol Tartrate 25 MG TABLET PO ×2 (10:50→23:51)
[2022-05-18] MEDS: 0.9 % Sodium Chloride Flush 3 ML SYRINGE IVFLUSH (10:51)
[2022-05-18] MEDS: Carbidopa/Levodopa 25/100 TABLET 1 TAB PO ×4 (10:51→23:51)
[2022-05-18] MEDS: Multivitamin TABLET 1 TAB PO (10:51)
[2022-05-18] MEDS: Levothyroxine Sodium 25 MCG TABLET PO (10:51)
[2022-05-18 11:53] LABS: Glucose, Whole Blood 163 mg/dL (60-115)
[2022-05-18] MEDS: Insulin Lispro 100 UNIT/ML 3 ML VIAL SUBCUT (12:01)
--- NOTE | 2022-05-18 15:39 | P.CONCA_ITS ---
History of Present Illness History of Present Illness Date of Service: 05/18/22 Chief complaint: Heart failure exacerbation Narrative: 61-year-old gentleman with background history of a chronic kidney disease stage 3 for dementia, cirrhosis of liver, hypertension, Parkinson's disease, history of subdural hematoma, schizophrenia diastolic heart failure. We have been consulted to help management of congestive heart failure. He presented to hospital with shortness of breath lower extremity edema. Clinically he was thought to be in heart failure with abnormal chest x-ray and elevated BNP. He was given IV diuretics and admitted for further management. He is saying he has been feeling little better since yesterday. Denies any chest discomfort shortness of breath currently. Blood pressure is quite elevated. Due to dementia and confusion he has pulled out his Ybarra catheter as well as IV line. Currently on oral diuretics. [facility] Past Medical History Medical History Abnormal findings on diagnostic imaging of liver and biliary tract Acute kidney failure, unspecified Acute respiratory failure with hypoxia Alcohol abuse, uncomplicated Alcoholic cirrhosis of liver with ascites Allergic rhinitis due to pollen Anemia Ataxia Cannabis use, unspecified, uncomplicated Chronic kidney disease, stage 3 unspecified Chronic renal failure CKD (chronic kidney disease) stage 3, GFR 30-59 ml/min Cocaine abuse, uncomplicated Dementia Dementia in other diseases classified elsewhere with behavioral disturbance Diabetes Disorder of urea cycle metabolism, unspecified Drug abuse, cocaine type Dysphagia, oral phase Dysphagia, oropharyngeal phase Essential (primary) hypertension Essential tremor ETOH abuse Hepatic failure, unspecified without coma Hepatomegaly, not elsewhere classified Hereditary and idiopathic neuropathy, unspecified Hereditary ataxia, unspecified Hyperosmolality and hypernatremia Intracranial hemorrhage, subdural Mild cognitive impairment, so stated Muscle weakness (generalized) Myopia, bilateral Orthostatic hypotension Osteophyte, unspecified joint Other chronic allergic conjunctivitis Other lack of coordination Other pancytopenia Other skin changes Other specified eating disorder Other speech disturbances Pain in unspecified shoulder Parkinson disease Pneumonitis due to inhalation of food and vomit Repeated falls Schizophrenia Sepsis, unspecified organism Subdural hematoma Tinea pedis Toxic metabolic encephalopathy Traumatic subdural hemorrhage without loss of consciousness, subsequent encounter Type 2 diabetes mellitus with diabetic polyneuropathy Unspecified dementia with behavioral disturbance Unsteadiness on feet Family History Family History Other Hypertension Social History Social History Household Members: None Household Members Other:: Other residents Housing: Apartment Housing Other:: [facility] Do you presently have visiting nurse or other home services: No Unable to assess alcohol history related to: Unknown Alcohol intake: former Patient Tobacco Use Status: Former Tobacco user Cigarettes Per Day: 1 Second Hand Smoke Exposure: No Use of substances other than those prescribed or required for medical reasons: No Currently Displaying Signs/Symptoms of Drug Intoxication Withdrawal: No Have you been hit, kicked, punched, or otherwise hurt by someone within the past year? If so, by whom?: No Do you feel safe in your current relationship?: No Current Relationship Is there a partner from a previous relationship who is making you feel unsafe now?: No Are you made to feel afraid or neglected: No Advance Directives: No Advance Directives Information Provided: No Do you have thoughts of harming others: None Do you have a plan to hurt others: No Plan Recently lost weight without trying: No How much weight loss: Not applicable Eating poorly because of decreased appetite: No Nutrition screen score: 0 service: No ([employer]) Current occupational status: disabled Meds Allergies Allergy/AdvReac Type Severity Reaction Status Date / Time pollen extracts Allergy Unknown Verified 03/20/22 13:42 ragweed pollen Allergy Unknown Verified 03/20/22 13:42 Active Medications: Current Medications Acetaminophen (Acetaminophen 325 Mg Tablet) 650 mg PO Q4H PRN PRN Reason: PAIN/TEMP>100 Amlodipine Besylate (Amlodipine Besylate 10 Mg Tablet) 10 mg PO BEDTIME [facility]; Protocol Benztropine Mesylate (Benztropine Mesylate 1 Mg Tablet) 1 mg PO BID [facility] Last Admin: 05/18/22 10:50 Dose: 1 mg Bisacodyl (Bisacodyl 10 Mg Supp.Rect) 10 mg [place] DAILY PRN PRN Reason: Constipation Carbidopa/Levodopa (Carbidopa/Levodopa 25/100 Tablet) 1 tab PO QID [facility] Last Admin: 05/18/22 12:02 Dose: 1 tab Docusate Sodium (Docusate Sodium 100 Mg Capsule) 100 mg PO BEDTIME [facility] Furosemide (Furosemide 40 Mg Tablet) 40 mg PO BID@0900,1800 [facility]; Protocol Last Admin: 05/18/22 10:49 Dose: 40 mg Furosemide (Furosemide 20 Mg Tablet) 20 mg PO DAILY [facility]; Protocol Last Admin: 05/18/22 10:50 Dose: 20 mg Gabapentin (Gabapentin 300 Mg Capsule) 300 mg PO TID [facility] Last Admin: 05/18/22 10:49 Dose: 300 mg Guaifenesin (Guaifenesin 100 Mg/5 Ml Liquid) 5 ml PO Q4H PRN PRN Reason: Cough Heparin Sodium (Porcine) (Heparin Sodium,Porcine 5,000 Unit/Ml Vial) 5,000 unit SUBCUT Q12H [facility] Last Admin: 05/18/22 06:13 Dose: Not Given Hydralazine HCl (Hydralazine Hcl 50 Mg Tablet) 50 mg PO TID [facility]; Protocol Insulin Glargine (Insulin Glargine,Hum.Rec.Anlog 100 Unit/Ml 10 Ml Vial) 20 unit SUBCUT BID [facility] Insulin Human Lispro (Insulin Lispro 100 Unit/Ml 3 Ml Vial) 0 unit SUBCUT QIDACHS [facility]; Protocol Last Admin: 05/18/22 12:01 Dose: 4 unit Lactulose (Lactulose 20 Gm/30 Ml Solution) 20 gm PO DAILY [facility] Last Admin: 05/18/22 10:49 Dose: 20 gm Levothyroxine Sodium (Levothyroxine Sodium 25 Mcg Tablet) 25 mcg PO DAILY@0600 [facility] Last Admin: 05/18/22 10:51 Dose: 25 mcg Metoprolol Tartrate (Metoprolol Tartrate 25 Mg Tablet) 25 mg PO BID [facility]; Protocol Last Admin: 05/18/22 10:50 Dose: 25 mg Multivitamins/Vitamin C (Multivitamin Tablet) 1 tab PO DAILY [facility] Last Admin: 05/18/22 10:51 Dose: 1 tab Pharmacy Consult (Consult Rx Perform Med Rec) 1 each MISCELLANE ONCE PRN PRN Reason: Consult order Rifaximin (Rifaximin 550 Mg Tablet) 550 mg PO BID [facility] Last Admin: 05/18/22 10:50 Dose: 550 mg Senna (Sennosides 8.6 Mg Tablet) 8.6 mg PO DAILY PRN PRN Reason: Constipation Sodium Chloride (0.9 % Sodium Chloride Flush 3 Ml Syringe) 3 ml IVFLUSH QSHIFT [facility] Last Admin: 05/18/22 10:51 Dose: 3 ml Tramadol HCl (Tramadol Hcl 50 Mg Tablet) 50 mg PO BID [facility] Last Admin: 05/18/22 10:50 Dose: 50 mg Home Medications Medication Instructions Recorded Confirmed Last Taken Type benztropine 1 mg tablet 1 mg PO BID 11/18/20 05/17/22 Unknown History carbidopa 25 mg-levodopa 100 mg 1 tab PO QID 11/18/20 05/17/22 Unknown History tablet (Sinemet) fluphenazine decanoate 25 mg/mL 50 mg subcut Q14D 11/18/20 05/17/22 03/16/22 History injection solution miconazole nitrate 2 % topical 1 spray topical BID PRN fungal 11/18/20 05/17/22 Unknown History spray (Lotrimin AF) infection tramadol 50 mg tablet 50 mg PO BID 11/18/20 05/17/22 Unknown History docusate sodium 100 mg tablet 100 mg PO BEDTIME 12/10/20 05/17/22 Unknown History sennosides 8.6 mg tablet (senna) 8.6 mg PO DAILY PRN Constipation 12/10/20 05/17/22 Unknown History amlodipine 10 mg tablet 10 mg PO BEDTIME 02/19/22 05/17/22 Unknown History levothyroxine 25 mcg tablet 25 mcg PO DAILY@0600 02/19/22 05/17/22 Unknown History multivitamin 1 tab PO DAILY 02/19/22 05/17/22 Unknown History rifaximin 550 mg tablet (Xifaxan) 1 tab PO BID 02/19/22 05/17/22 Unknown History Calazime Skin Protectant 1 applic topical QSHIFT 03/20/22 05/17/22 Unknown History acetaminophen 325 mg tablet 650 mg PO Q4H PRN PAIN/TEMP>100 03/20/22 05/17/22 Unknown History bisacodyl 10 mg rectal suppository 10 mg [place] DAILY PRN Constipation 03/20/22 05/17/22 Unknown History guaifenesin 100 mg/5 mL oral liquid 200 mg PO Q4H PRN Cough 03/20/22 05/17/22 Unknown History lactulose 20 gram/30 mL oral 20 g PO DAILY 03/20/22 05/17/22 Unknown History solution metoprolol tartrate 25 mg tablet 25 mg PO BID 03/20/22 05/17/22 Unknown History gabapentin 300 mg capsule 300 mg PO TID 05/17/22 05/17/22 Unknown History hydralazine 25 mg tablet 25 mg PO TID 05/17/22 05/17/22 Unknown History insulin glargine 100 unit/mL (3 20 unit subcut BID 05/17/22 05/17/22 Unknown History mL) subcutaneous pen (Lantus Solostar U-100 Insulin) insulin lispro 100 unit/mL See Protocol subcut QIDACHS 05/17/22 05/17/22 Unknown History subcutaneous pen (Humalog KwikPen (U-100) Insulin) metformin 1,000 mg tablet 1,000 mg PO BID 05/17/22 05/17/22 Unknown History Physical Exam Vital Signs: Vital Signs: Last Vital Signs Temp 98.9 F 05/18/22 11:10 Pulse 77 05/18/22 11:10 Resp 20 05/18/22 11:10 BP 198/92 H 05/18/22 11:10 Pulse Ox 97 05/18/22 11:10 O2 Del Method 05/18/22 11:10 BMI result Body Mass Index 38.7 GENERAL APPEARANCE: in no acute distress, somewhat confused. NECK: no carotid bruit, mild jugular venous distention. SKIN: no suspicious lesions, warm and dry. HEART: no murmurs, regular rate and rhythm. LUNGS: clear to auscultation bilaterally. ABDOMEN: soft, nontender. EXTREMITIES: Edema positive. PERIPHERAL PULSES: equal. Objective Labs and Meds Result diagrams: 05/17/22 14:56 05/18/22 09:26 Lab results: Laboratory Results - last 24 hr 05/17/22 05/17/22 05/18/22 16:10 18:23 09:26 Sodium 136 Potassium 4.5 Chloride 108 Carbon Dioxide 20 L Anion Gap 13 BUN 38 H Creatinine 2.40 H Estim Creat Clear Calc 41.3 Estimated GFR 27 POC Glucose Random Glucose 153 H Lactic Acid 1.9 Calcium 7.9 L B-Natriuretic Peptide 1797 H 05/18/22 11:49 Sodium Potassium Chloride Carbon Dioxide Anion Gap BUN Creatinine Estim Creat Clear Calc Estimated GFR POC Glucose 163 H Random Glucose Lactic Acid Calcium B-Natriuretic Peptide Imaging Radiologist's impression: Impressions Chest X-Ray 05/17/22 14:25 IMPRESSION: Persistent but improved bilateral diffuse airspace disease. Abdomen/Pelvis CT 05/17/22 14:34 IMPRESSION: Very limited exam due to motion artifact. Cirrhotic appearing liver, varices and splenomegaly. No ascites. Constipation. Fleischner guidelines were followed. Assessment and Plan (1) Acute on chronic diastolic (congestive) heart failure: Status: Acute Plan 61-year-old gentleman with acute on chronic diastolic heart failure. Blood pressure is elevated once the likely cause for his decompensation. Blood pressure is still elevated. Increase hydralazine to 50 mg 3 times a day. He probably will need IV diuretics. If a good IV line cannot be maintained then consider changing him to torsemide 20 mg p.o. b.i.d.. Definitely needs better blood pressure control. Hydralazine has been increased and will see how he reacts to that. Can also try isosorbide 30 mg in addition to hydralazine and other medications to decrease the filling pressures. Thank you for allowing me to participate in the care of your patient. Please feel free to contact me if you have any questions. Procedures Date of Service Date of Service: 05/18/22
[2022-05-18 16:18] LABS: Glucose, Whole Blood 121 mg/dL (60-115)
--- NOTE | 2022-05-18 16:27 | MHC.CM.PN ---
ADAM addressed IMM this morning by leaving a detailed message with guardian's office. Jacqueline Crawley .
[2022-05-18] MEDS: hydrALAZINE HCl 50 MG TABLET PO ×2 (16:46→23:51)
[2022-05-18 20:52] LABS: Glucose, Whole Blood 150 mg/dL (60-115)
[2022-05-18] MEDS: amLODIPine Besylate 10 MG TABLET PO (23:51)
[2022-05-18] MEDS: Docusate Sodium 100 MG CAPSULE PO (23:52)
[2022-05-18] MEDS: Insulin Glargine,Hum.rec.anlog 100 UNIT/ML 10 ML VIAL 20 UNIT SUBCUT (23:52)
[2022-05-19] VITALS (11 sets, daily range): BP systolic 104–171; BP diastolic 43–74; PULSE 50–88; RESP 15–22; TEMP 34.5–37.1; O2SAT 91–100
[2022-05-19] MEDS: Levothyroxine Sodium 25 MCG TABLET PO (05:49)
[2022-05-19 07:22] LABS: Anion Gap 12 (12-20); Blood Urea Nitrogen 40 mg/dL (9-16); Calcium 7.9 mg/dL (8.4-10.2); Carbon Dioxide 21 mmol/L (22-29); Chloride 108 mmol/L (96-108); Creatinine Clr Calc Pharmacy 38.3; Estimated Glomerular Filt Rate 25; Glucose Random 127 mg/dL (60-115); Potassium 4.5 mmol/L (3.3-5.1); Sodium 136 mmol/L (135-145)
[2022-05-19 07:46] LABS: Glucose, Whole Blood 120 mg/dL (60-115)
--- NOTE | 2022-05-19 08:39 | MHC.CM.PN ---
CM INFORMED SHARRI FROM [place] [facility] HAD CALLED AND LEFT A REQUESTING A RETURN CALL. CM ATTEMPTED TO RETURN HER CALL AT 0837 TODAY HOWEVER SHE WAS NOT YET IN THE OFFICE. A MESSAGE WAS LEFT REQUESTING A RETURN CALL SHARRI: [phone]
[2022-05-19] MEDS: hydrALAZINE HCl 50 MG TABLET PO (08:52)
[2022-05-19] MEDS: Lactulose 20 GM/30 ML SOLUTION PO ×2 (08:52→16:36)
[2022-05-19] MEDS: Insulin Glargine,Hum.rec.anlog 100 UNIT/ML 10 ML VIAL 20 UNIT SUBCUT (08:52)
[2022-05-19] MEDS: traMADoL HCL 50 MG TABLET PO (08:53)
[2022-05-19] MEDS: Metoprolol Tartrate 25 MG TABLET PO (08:53)
[2022-05-19] MEDS: Multivitamin TABLET 1 TAB PO (08:53)
[2022-05-19] MEDS: rifAXIMin 550 MG TABLET PO (08:53)
[2022-05-19] MEDS: Carbidopa/Levodopa 25/100 TABLET 1 TAB PO ×4 (08:53→23:02)
[2022-05-19] MEDS: Furosemide 20 MG TABLET PO (08:53)
[2022-05-19] MEDS: Benztropine Mesylate 1 MG TABLET PO (08:53)
[2022-05-19] MEDS: Gabapentin 300 MG CAPSULE PO ×2 (08:53→15:47)
[2022-05-19] MEDS: Furosemide 40 MG TABLET PO (08:54)
[2022-05-19 11:10] LABS: Glucose, Whole Blood 130 mg/dL (60-115)
[2022-05-19] MEDS: Acetaminophen 325 MG TABLET 650 MG PO (11:47)
[2022-05-19] MEDS: Torsemide 20 MG TABLET 40 MG PO (11:47)
[2022-05-19] MEDS: LORazepam 2 MG/ML VIAL 1 MG IM (11:48)
--- NOTE | 2022-05-19 12:22 | P.PNIM_ITS ---
Subjective Subjective Date of Service: 05/19/22 Interval History: Chief complaint: follow-up on decompensated heart failure. Interval history: agitated, confused, not following direction, unable to maintain IV in Review of Systems Gen: no fever Resp: + sob, no cough CV: no chest, no ANN,+ leg edema GI: No n/v, no abd pain Neuro: No confusion Physical Exam Vital Signs: Vital Signs: Last Vital Signs Temp 98.6 F 05/19/22 11:26 Pulse 61 05/19/22 11:26 Resp 20 05/19/22 11:26 BP 156/67 H 05/19/22 11:26 Pulse Ox 95 05/19/22 11:26 O2 Del Method 05/19/22 11:26 O2 Flow Rate 2 05/19/22 03:15 BMI result Body Mass Index 38.7 Const: Other: Constitutional: Alert, agiated, confused Respiratory: rhonchi, occasional wheeze Cardiovascular: S1 S2 regular. No murmurs, rubs or gallops. 3+ leg edema Gastrointestinal: Abdomen soft, non-tender, non-distended. Normal bowel sounds.? Neurologic: Cranial nerves II-XII grossly intact. No focal neurological deficits. Moves all extremities spontaneously.? Skin: No rashes or lesions.? Musculoskeletal: No cyanosis or clubbing. confused Psychiatric: flat today Objective Data Active Medications Acetaminophen (Acetaminophen 325 Mg Tablet) 650 mg PO Q4H PRN PRN Reason: PAIN/TEMP>100 Last Admin: 05/19/22 11:47 Dose: 650 mg Documented By: MARIA LUZ Amlodipine Besylate (Amlodipine Besylate 10 Mg Tablet) 10 mg PO BEDTIME [facility]; Protocol Last Admin: 05/18/22 23:51 Dose: 10 mg Documented By: SADAF Benztropine Mesylate (Benztropine Mesylate 1 Mg Tablet) 1 mg PO BID [facility] Last Admin: 05/19/22 08:53 Dose: 1 mg Documented By: MARIA LUZ Bisacodyl (Bisacodyl 10 Mg Supp.Rect) 10 mg AR DAILY PRN PRN Reason: Constipation Carbidopa/Levodopa (Carbidopa/Levodopa 25/100 Tablet) 1 tab PO QID [facility] Last Admin: 05/19/22 11:47 Dose: 1 tab Documented By: MARIA LUZ Docusate Sodium (Docusate Sodium 100 Mg Capsule) 100 mg PO BEDTIME [facility] Last Admin: 05/18/22 23:52 Dose: 100 mg Documented By: SADAF Gabapentin (Gabapentin 300 Mg Capsule) 300 mg PO TID [facility] Last Admin: 05/19/22 08:53 Dose: 300 mg Documented By: MARIA LUZ Guaifenesin (Guaifenesin 100 Mg/5 Ml Liquid) 5 ml PO Q4H PRN PRN Reason: Cough Heparin Sodium (Porcine) (Heparin Sodium,Porcine 5,000 Unit/Ml Vial) 5,000 unit SUBCUT Q12H [facility] Last Admin: 05/19/22 04:23 Dose: Not Given Documented By: SADAF Non-Admin Reason: Patient Condition Contraindication Hydralazine HCl (Hydralazine Hcl 50 Mg Tablet) 50 mg PO TID [facility]; Protocol Last Admin: 05/19/22 08:52 Dose: 50 mg Documented By: MARIA LUZ Insulin Glargine (Insulin Glargine,Hum.Rec.Anlog 100 Unit/Ml 10 Ml Vial) 20 unit SUBCUT BID [facility] Last Admin: 05/19/22 08:52 Dose: 20 unit Documented By: MARIA LUZ Insulin Human Lispro (Insulin Lispro 100 Unit/Ml 3 Ml Vial) 0 unit SUBCUT QIDACHS [facility]; Protocol Last Admin: 05/19/22 11:45 Dose: Not Given Documented By: MARIA LUZ Non-Admin Reason: No Insulin Coverage Lactulose (Lactulose 20 Gm/30 Ml Solution) 20 gm PO DAILY [facility] Last Admin: 05/19/22 08:52 Dose: 20 gm Documented By: MARIA LUZ Levothyroxine Sodium (Levothyroxine Sodium 25 Mcg Tablet) 25 mcg PO DAILY@0600 [facility] Last Admin: 05/19/22 05:49 Dose: 25 mcg Documented By: SADAF Metoprolol Tartrate (Metoprolol Tartrate 25 Mg Tablet) 25 mg PO BID [facility]; Protocol Last Admin: 05/19/22 08:53 Dose: 25 mg Documented By: MARIA LUZ Multivitamins/Vitamin C (Multivitamin Tablet) 1 tab PO DAILY [facility] Last Admin: 05/19/22 08:53 Dose: 1 tab Documented By: MARIA LUZ Pharmacy Consult (Consult Rx Perform Med Rec) 1 each MISCELLANE ONCE PRN PRN Reason: Consult order Rifaximin (Rifaximin 550 Mg Tablet) 550 mg PO BID [facility] Last Admin: 05/19/22 08:53 Dose: 550 mg Documented By: MARIA LUZ Senna (Sennosides 8.6 Mg Tablet) 8.6 mg PO DAILY PRN PRN Reason: Constipation Sodium Chloride (0.9 % Sodium Chloride Flush 3 Ml Syringe) 3 ml IVFLUSH QSHIFT [facility] Last Admin: 05/19/22 08:54 Dose: Not Given Documented By: MARIA LUZ Non-Admin Reason: No Access Torsemide (Torsemide 20 Mg Tablet) 40 mg PO DAILY [facility]; Protocol Last Admin: 05/19/22 11:47 Dose: 40 mg Documented By: MARIA LUZ Tramadol HCl (Tramadol Hcl 50 Mg Tablet) 50 mg PO BID [facility] Last Admin: 05/19/22 08:53 Dose: 50 mg Documented By: MARIA LUZ Labs CBC & Chem 7: 05/17/22 14:56 05/19/22 06:24 Labs: Laboratory Results - last 24 hr 05/18/22 05/18/22 05/19/22 16:00 20:49 06:24 Anion Gap 12 Estim Creat Clear Calc 38.3 Estimated GFR 25 POC Glucose 121 H 150 H Random Glucose 127 H Calcium 7.9 L 05/19/22 05/19/22 07:19 11:05 Anion Gap Estim Creat Clear Calc Estimated GFR POC Glucose 120 H 130 H Random Glucose Calcium Microbiology Microbiology Results: Microbiology 05/17/22 17:00 Blood Culture - Preliminary Blood - Venous No growth after 24 hours. 05/17/22 16:10 Blood Culture - Preliminary Blood - Venous No growth after 24 hours. Assessment and Plan (1) Acute on chronic diastolic (congestive) heart failure: Status: Acute Plan 61/m with CKD3, HTN, diastolic CHF here with exacerbation of heart failure with no evidence of acute ischemia-- #Acute on chronic diastolic CHF--with marked fluid overload clinically -Was started on IV Lasix drip but ripped out IV and José yesterday -cardiology eval -Follow I/O -limit salt -will attempt restart IV meds #CKD 3 baseline Cr --2.5, monitor while on diuretics #Traumatic hematuria for removing josé--observe and if not better urology eval #Anemia of chronic disease-stable--Stable H/H #Diabetes--on Lantus and SSI, stop Metformin d/t renal failure #Parkinson--Continue Sinemet #HTN--continue continue Norvasc, metoprolol and Hydralazine #Hypothyrodisim--continue Levothyroxine #history of cirrhosis of liver--lactulose, Xifaxan-- additional lactulose today #Schizophrenia--on Fluphenazine Q2 weeks, Agitation.. Ativan PRN DVT prophylaxis: Heparin Need for inpatient: IV diuretics for decompensated CHF and toxic metabolic encephalopathy Full code Quality Stroke Does the patient have a stroke diagnosis?: No VTE Prior VTE?: No VTE Risk Level:: Medical - moderate - high VTE Device Contraindication: Treatment Not Indicated VTE Drug Contraindication: N/A - Med Ordered
[2022-05-19] MEDS: hydrOXYzine HCL 50 MG/ML VIAL 25 MG IM (12:43)
[2022-05-19 13:27] LABS: Ammonia 57 umol/L (13-55)
--- NOTE | 2022-05-19 13:40 | P.PNCA_ITS ---
Subjective Subjective Date of Service: 05/19/22 Interval history: Seen and examined at bedside. Eating is launch. Saying that he had some shortness of breath when he was lying down last night. He has a constant pony ride attendant due to dementia. Physical Exam Vital Signs: Last Vital Signs Temp 98.6 F 05/19/22 11:26 Pulse 61 05/19/22 11:26 Resp 20 05/19/22 11:26 BP 156/67 H 05/19/22 11:26 Pulse Ox 95 05/19/22 11:26 O2 Del Method 05/19/22 11:26 O2 Flow Rate 2 05/19/22 03:15 BMI result Body Mass Index 38.7 GENERAL APPEARANCE: in no acute distress. NECK: no carotid bruit, + jugular venous distention. SKIN: no suspicious lesions, warm and dry. HEART: no murmurs, regular rate and rhythm. LUNGS: Few crackles at bases. ABDOMEN: soft, nontender. EXTREMITIES: no edema. PERIPHERAL PULSES: equal. NEUROLOGIC: No gross deficits, AAO X 3 Objective Labs and Meds Result diagrams: 05/17/22 14:56 05/19/22 06:24 Lab results: Laboratory Results - last 24 hr 05/18/22 05/18/22 05/19/22 16:00 20:49 06:24 Sodium 136 Potassium 4.5 Chloride 108 Carbon Dioxide 21 L Anion Gap 12 BUN 40 H Creatinine 2.59 H Estim Creat Clear Calc 38.3 Estimated GFR 25 POC Glucose 121 H 150 H Random Glucose 127 H Calcium 7.9 L Ammonia 05/19/22 05/19/22 05/19/22 07:19 11:05 13:12 Sodium Potassium Chloride Carbon Dioxide Anion Gap BUN Creatinine Estim Creat Clear Calc Estimated GFR POC Glucose 120 H 130 H Random Glucose Calcium Ammonia 57 H Imaging Radiologist's impression: Impressions Hip/Pelvis X-Ray 05/18/22 21:28 IMPRESSION: Mild bilateral hip osteoarthritis without acute fracture. Progress Note: A&P Assessment and plan (1) Cirrhosis: Status: Acute (2) Acute on chronic diastolic (congestive) heart failure: Status: Acute Plan 61-year-old gentleman with cirrhosis or liver and and diastolic heart failure presenting with shortness of breath lower extremity edema. He has Parkinson's disease and dementia. Also has CKD and schizophrenia. Clinically he is volume overloaded. It appears he does not have IV access because he pulled out his IV. He is on oral Lasix 40 mg twice a day. Please change him to torsemide 40 mg once a day. Depending on his response to torsemide I will increase the dose for b.i.d.. BP little better but still elevated. Consider increasing hydralazine to 75 mg 3 times a day. Thank you for allowing me to participate in the care of your patient. Please feel free to contact me if you have any questions. Time Spent With Patient Time: Total time spent is greater than 50% in coordination of care (as documented) at patient's floor/unit and/or counseling patient: Progress Note: Quality Stroke Does the patient have a stroke diagnosis?: No Procedures Date of Service Date of Service: 05/19/22
[2022-05-19] MEDS: hydrALAZINE HCl 25 MG TABLET 75 MG PO (15:47)
[2022-05-19 15:48] LABS: Glucose, Whole Blood 95 mg/dL (60-115)
[2022-05-19 17:44] LABS: ABG Base Excess -4.8 mmol/L; ABG HCO3 18 mmol/L (22-26); ABG pCO2 29 mmHg (32-45); ABG pH 7.41 (7.35-7.45); ABG pO2 83 mmHg (83-108)
--- NOTE | 2022-05-19 17:50 | PM.EVENT ---
Event Note Date of Service: 05/19/22 Event Note: Increasingly agitated, restless not directed, pulling on tubes, getting out of bed despite observer been there..ammonia level is 57, Abg is unremarkable. Given 1 mg im ativan with no effect, will try another another 1 mg IV and may need to give more to control patient and prevent fall, self injury and be able to give care.. use of Psychotropics are discouraged in Parkinson. Will also give lactulose..He seems able to protect airway at this time and ABG is ok so will keep observing but if he becomes uncontrollable he will need to be move to ICU for better sedation.
--- NOTE | 2022-05-19 18:10 | PM.PSYCN ---
History of Present Illness Date of Service: 05/19/2022 Chief Complaint: Heart failure exacerbation Reason for Consult: Psych consult placed for medication due to agitation Requesting physician: Sriram Man [facility] Narrative: Adilson is a 61 y.o. male who carries a dx of schizophrenia, dementia. He comes from [facility]. He presented to [facility] ED on 05/17/2022 due to edema, orthopnea, SOB due to complications of CHF, BNP nearly 2000, CXR shows diffuse infiltrate. Pt was admitted for further management of CHF, given IV lasix. He has co-morbid medical diagnoses of cirrhosis, hepatic encephalopathy, right tentorial subdural hematoma (improved), chronic anemia, chronic kidney disease stage 3 (Cr is elevated, 2.4-2.5 at baseline), and Parkinson?s (on? sinemet, cogentin).? Pt was recently discharged from [facility] on on 03/22/22 due to encepahlopathy. During course of hospitalization pt was started on lasix, discontinued tramadol and loratadine, gabapentin decreased to 300 mg TID. He was seen for a psych consult during this admission for agitation, requiring stat ativan and haldol. He was started on PRN ativan and seroquel with his mental status improving back to baseline (pt is confused and disoriented at baseline). He had another discharge on 03/15/22 due to a fall from bed, ammonia level found to be elevated despite lactulose and head CT revealed intracranial subdural bleed along the right tentorium. Repeated CT scan showed improvement in the hematoma with no acute findings. Echo from February 2022 showed EF of 60 to 65% Psych consult placed for medication due to pt becoming agitated, he ripped out his IV and Ybarra. On prolixin MARTINEZ 25 mg Q14 days for psychotic symptoms. Also on ativan 1 mg Q4H PRN for agitation. Today he received Hydroxyzine 25 mg IM at 12:43, ativan 1 mg IM 11:48, and ativan 1 mg IV push 18:36 with good results.? I attempted to evaluate the pt this evening, however when I went to go interview him, there was a code blue rapid response called to his room due to pt becoming unresponsive, no pulse. CPR was started, pt was given epi and intubated. ICU team was at bedside and transferred pt to ICU bed.? Medical Evaluation Reviewed: Yes [facility] Medical History (Updated 05/19/22 @ 20:15 by Melonie Pacheco NP) Abnormal findings on diagnostic imaging of liver and biliary tract Acute kidney failure, unspecified Acute respiratory failure with hypoxia Alcohol abuse, uncomplicated Alcoholic cirrhosis of liver with ascites Allergic rhinitis due to pollen Anemia Ataxia Cannabis use, unspecified, uncomplicated Chronic kidney disease, stage 3 unspecified Chronic renal failure CKD (chronic kidney disease) stage 3, GFR 30-59 ml/min Cocaine abuse, uncomplicated Dementia Dementia in other diseases classified elsewhere with behavioral disturbance Diabetes Disorder of urea cycle metabolism, unspecified Drug abuse, cocaine type Dysphagia, oral phase Dysphagia, oropharyngeal phase Essential (primary) hypertension Essential tremor ETOH abuse Hepatic failure, unspecified without coma Hepatomegaly, not elsewhere classified Hereditary and idiopathic neuropathy, unspecified Hereditary ataxia, unspecified Hyperosmolality and hypernatremia Intracranial hemorrhage, subdural Mild cognitive impairment, so stated Muscle weakness (generalized) Myopia, bilateral Orthostatic hypotension Osteophyte, unspecified joint Other chronic allergic conjunctivitis Other lack of coordination Other pancytopenia Other skin changes Other specified eating disorder Other speech disturbances Pain in unspecified shoulder Parkinson disease Pneumonitis due to inhalation of food and vomit Repeated falls Schizophrenia Sepsis, unspecified organism Subdural hematoma Tinea pedis Toxic metabolic encephalopathy Traumatic subdural hemorrhage without loss of consciousness, subsequent encounter Type 2 diabetes mellitus with diabetic polyneuropathy Unspecified dementia with behavioral disturbance Unsteadiness on feet Diagnostics Vital Signs (24Hr): Vital Signs - 24 hr 05/18/22 20:00 05/18/22 20:45 05/18/22 23:20 Temperature 99.1 F 98.6 F Pulse Rate 72 76 74 Respiratory Rate 19 19 19 Blood Pressure 174/68 H 168/72 H 180/63 H Pulse Oximetry 95 98 95 Oxygen Delivery Method Room Air Room Air Room Air Oxygen Flow Rate 05/19/22 03:15 05/19/22 08:00 05/19/22 11:26 Temperature 98.4 F 98.7 F 98.6 F Pulse Rate 86 67 61 Respiratory Rate 21 H 20 20 Blood Pressure 171/74 H 156/67 H Pulse Oximetry 91 L 94 95 Oxygen Delivery Method Nasal Cannula Room Air Room Air Oxygen Flow Rate 2 05/19/22 15:46 Temperature 98.7 F Pulse Rate 65 Respiratory Rate 18 Blood Pressure 135/61 Pulse Oximetry 92 Oxygen Delivery Method Room Air Oxygen Flow Rate BMI result Body Mass Index 38.7 Labs Results: 05/17/22 14:56 05/19/22 06:24 Labs: Laboratory Results - last 48 hr 05/17/22 05/18/22 05/18/22 18:23 09:26 11:49 O2 Saturation ABG pH at Pt Temp ABG pCO2 at Pt Temp ABG pO2 at Pt Temp ABG HCO3 ABG Base Excess (Actual) Sodium 136 Potassium 4.5 Chloride 108 Carbon Dioxide 20 L Anion Gap 13 BUN 38 H Creatinine 2.40 H Estim Creat Clear Calc 41.3 Estimated GFR 27 POC Glucose 163 H Random Glucose 153 H Calcium 7.9 L Ammonia B-Natriuretic Peptide 1797 H 05/18/22 05/18/22 05/19/22 16:00 20:49 06:24 O2 Saturation ABG pH at Pt Temp ABG pCO2 at Pt Temp ABG pO2 at Pt Temp ABG HCO3 ABG Base Excess (Actual) Sodium 136 Potassium 4.5 Chloride 108 Carbon Dioxide 21 L Anion Gap 12 BUN 40 H Creatinine 2.59 H Estim Creat Clear Calc 38.3 Estimated GFR 25 POC Glucose 121 H 150 H Random Glucose 127 H Calcium 7.9 L Ammonia B-Natriuretic Peptide 05/19/22 05/19/22 05/19/22 07:19 11:05 13:12 O2 Saturation ABG pH at Pt Temp ABG pCO2 at Pt Temp ABG pO2 at Pt Temp ABG HCO3 ABG Base Excess (Actual) Sodium Potassium Chloride Carbon Dioxide Anion Gap BUN Creatinine Estim Creat Clear Calc Estimated GFR POC Glucose 120 H 130 H Random Glucose Calcium Ammonia 57 H B-Natriuretic Peptide 05/19/22 05/19/22 15:42 17:39 O2 Saturation 96.0 ABG pH at Pt Temp 7.41 ABG pCO2 at Pt Temp 29 L ABG pO2 at Pt Temp 83 ABG HCO3 18 L ABG Base Excess (Actual) -4.8 Sodium Potassium Chloride Carbon Dioxide Anion Gap BUN Creatinine Estim Creat Clear Calc Estimated GFR POC Glucose 95 Random Glucose Calcium Ammonia B-Natriuretic Peptide Imaging Radiology Impressions: ITS Impressions Chest X-Ray 05/17/22 14:25 IMPRESSION: Persistent but improved bilateral diffuse airspace disease. Abdomen/Pelvis CT 05/17/22 14:34 IMPRESSION: Very limited exam due to motion artifact. Cirrhotic appearing liver, varices and splenomegaly. No ascites. Constipation. Fleischner guidelines were followed. Hip/Pelvis X-Ray 05/18/22 21:28 IMPRESSION: Mild bilateral hip osteoarthritis without acute fracture. Mental Status Exam Mental Status Exam Narrative: Unable to assess at this time, as pt is in care of rapid response/ ICU team and intubated. He is morbidly obese, in hospital attire. At baseline, pt is confused, disoriented to situation, and is not a reliable historian. Medications Medications Current Medications Acetaminophen (Acetaminophen 325 Mg Tablet) 650 mg PO Q4H PRN PRN Reason: PAIN/TEMP>100 Last Admin: 05/19/22 11:47 Dose: 650 mg Amlodipine Besylate (Amlodipine Besylate 10 Mg Tablet) 10 mg PO BEDTIME [facility]; Protocol Last Admin: 05/18/22 23:51 Dose: 10 mg Benztropine Mesylate (Benztropine Mesylate 1 Mg Tablet) 1 mg PO BID [facility] Last Admin: 05/19/22 08:53 Dose: 1 mg Bisacodyl (Bisacodyl 10 Mg Supp.Rect) 10 mg [place] DAILY PRN PRN Reason: Constipation Carbidopa/Levodopa (Carbidopa/Levodopa 25/100 Tablet) 1 tab PO QID [facility] Last Admin: 05/19/22 15:47 Dose: 1 tab Docusate Sodium (Docusate Sodium 100 Mg Capsule) 100 mg PO BEDTIME [facility] Last Admin: 05/18/22 23:52 Dose: 100 mg Gabapentin (Gabapentin 300 Mg Capsule) 300 mg PO TID [facility] Last Admin: 05/19/22 15:47 Dose: 300 mg Guaifenesin (Guaifenesin 100 Mg/5 Ml Liquid) 5 ml PO Q4H PRN PRN Reason: Cough Heparin Sodium (Porcine) (Heparin Sodium,Porcine 5,000 Unit/Ml Vial) 5,000 unit SUBCUT Q12H [facility] Last Admin: 05/19/22 04:23 Dose: Not Given Hydralazine HCl (Hydralazine Hcl 25 Mg Tablet) 75 mg PO TID [facility]; Protocol Last Admin: 05/19/22 15:47 Dose: 75 mg Furosemide 200 mg/ Sodium (Chloride) 100 mls @ 2.5 mls/hr IVCONT .Q24H [facility] Insulin Glargine (Insulin Glargine,Hum.Rec.Anlog 100 Unit/Ml 10 Ml Vial) 20 unit SUBCUT BID [facility] Last Admin: 05/19/22 08:52 Dose: 20 unit Insulin Human Lispro (Insulin Lispro 100 Unit/Ml 3 Ml Vial) 0 unit SUBCUT QIDACHS [facility]; Protocol Last Admin: 05/19/22 15:47 Dose: Not Given Lactulose (Lactulose 20 Gm/30 Ml Solution) 20 gm PO DAILY [facility] Last Admin: 05/19/22 08:52 Dose: 20 gm Levothyroxine Sodium (Levothyroxine Sodium 25 Mcg Tablet) 25 mcg PO DAILY@0600 [facility] Last Admin: 05/19/22 05:49 Dose: 25 mcg Lorazepam (Lorazepam 2 Mg/Ml Vial) 1 mg IVPUSH Q4H PRN PRN Reason: anxiety/restlessness Metoprolol Tartrate (Metoprolol Tartrate 25 Mg Tablet) 25 mg PO BID [facility]; Protocol Last Admin: 05/19/22 08:53 Dose: 25 mg Multivitamins/Vitamin C (Multivitamin Tablet) 1 tab PO DAILY [facility] Last Admin: 05/19/22 08:53 Dose: 1 tab Pharmacy Consult (Consult Rx Perform Med Rec) 1 each MISCELLANE ONCE PRN PRN Reason: Consult order Rifaximin (Rifaximin 550 Mg Tablet) 550 mg PO BID [facility] Last Admin: 05/19/22 08:53 Dose: 550 mg Senna (Sennosides 8.6 Mg Tablet) 8.6 mg PO DAILY PRN PRN Reason: Constipation Sodium Chloride (0.9 % Sodium Chloride Flush 3 Ml Syringe) 3 ml IVFLUSH QSHIFT [facility] Last Admin: 05/19/22 15:47 Dose: Not Given Torsemide (Torsemide 20 Mg Tablet) 40 mg PO DAILY [facility]; Protocol Last Admin: 05/19/22 11:47 Dose: 40 mg Tramadol HCl (Tramadol Hcl 50 Mg Tablet) 50 mg PO BID [facility] Last Admin: 05/19/22 08:53 Dose: 50 mg Allergies Allergies Allergy/AdvReac Type Severity Reaction Status Date / Time pollen extracts Allergy Unknown Verified 03/20/22 13:42 ragweed pollen Allergy Unknown Verified 03/20/22 13:42 Assessment & Plan Assessment & Plan (1) Cirrhosis: Status: Acute Code(s): K74.60 - Unspecified cirrhosis of liver (2) Acute on chronic diastolic (congestive) heart failure: Status: Acute Code(s): I50.33 - Acute on chronic diastolic (congestive) heart failure (3) Acute exacerbation of CHF (congestive heart failure): Status: Acute Code(s): I50.9 - Heart failure, unspecified (4) Acute kidney injury superimposed on chronic kidney disease: Status: Acute Code(s): N17.9 - Acute kidney failure, unspecified; N18.9 - Chronic kidney disease, unspecified (5) Unspecified dementia with behavioral disturbance: Status: Acute Code(s): F03.91 - Unspecified dementia with behavioral disturbance (6) Schizophrenia: Status: Acute Code(s): F20.9 - Schizophrenia, unspecified Plan Adilson is a 61 y.o. male who carries a dx of schizophrenia, dementia. He is a intermediate resident from [facility]. He presented to [facility] ED on 05/17/2022 due to complications of CHF. He has co-morbid medical diagnoses of cirrhosis, hepatic encephalopathy, right tentorial subdural hematoma (improved), chronic anemia, chronic kidney disease stage 3, and Parkinson?s. Pt has been maintained on ziprasidone 20 mg daily and fluphenazine dec 25 mg Q14 days for psychotic sx. At baseline, pt presents with memory impairment, confusion. Plan: Upon chart review, pt home meds include geodon 20 mg daily @1800, however has not been getting this. Will re-start geodon, along with seroquel 50 mg Q6H PRN and ativan 1 mg Q6H PRN for agitation due to reported effect during previous admission.? I have shared this with Dr. Man Thank you for this consultation. If you have any questions or if pt continues to present with unmanageable agitation, please do not hesitate to contact psychiatry service. I spent minutes with the patient and/or on the patient floor today, greater than?50% of which was spent counseling/coordinating care. Patient educated on: other
--- NOTE | 2022-05-19 18:18 | PM.CCN ---
Critical Care Event Note Summary Date of Service: 05/19/22 Code activated: No Narrative: 61-year-old gentleman with underlying hepatic cirrhosis, schizophrenia, Parkinson, chronic subdural, diastolic heart failure admitted with acute on chronic diastolic heart failure exacerbation with significant fluid retention and treated with p.o. torsemide, now with worsening confusion. On my exam, lethargic, confused, arousable to painful stimuli. Normotensive, normal oximetry on room air, lower extremity edema. Patient has received 1 dose of 1 mg IM Ativan. On Xifaxan and lactulose once a day. Laboratory studies with elevated ammonia. appears to have worsening encephalopathy, likely related to underlying liver cirrhosis. Would suggest increasing his lactulose either p.o. or as a retention enema. Consider antipsychotic for agitation control. Blood gas with no evidence of CO2 retention. Acceptable oxygenation. At this time does not require intensive care unit level of care. Please notify for re-evaluation, if patient's condition changes. Critical Care Time (minutes): 0
[2022-05-19] MEDS: LORazepam 2 MG/ML VIAL 1 MG IVPUSH (18:36)
--- NOTE | 2022-05-19 18:47 | PC.NURSE ---
Pt alert and oriented to self mostly. Responds to name. Pt continues on 1:1 supervision following a fall the previous night and increased confusion. This afternoon pt became more combative and impulsive. notified, ativan and Hydroxyzine ordered and given with minimal effect. Pt continued with visual hallucinations , reaching out for things in the air. ABGs ordered nad came back unremarkable results. New #22 IV inserted to left forearm. New Orders for Laisx drip, PRN Ativan and Lactulose ordered. Blood sugars this afternoo was 95 with no insulin coverage.
--- NOTE | 2022-05-19 19:30 | PM.EVENT ---
Event Note Date of Service: 05/19/22 Event Note: code blue: Code blue was called in at 17:20, patient was unresponsive, noted to have pulseless arrest; immediately CPR was started; given epinephrine; obtain ROSC. Patient was intubated. ICU team at bedside. Transferring to the ICU. spoke to the day hospitalist, mentioned that patient has been agitated, received Ativan; day team has been in touch with mail carrier technician, who is aware of the patient.
--- NOTE | 2022-05-19 20:00 | PC.NURSE ---
Pt transferred to ICU at approx 2000 s/p code blue on IMC- see paper documentation. Upon initial assessment, pt coughing/gagging, asynchronous- propofol/fentanyl gtt ordered and started. Sinus kenya on tele, HR 40-50s, POSTBED STITCHER aware. Levophed ordered and titrated to maintain MAP > 65. Lasix gtt hung per jan. ETT #8.0, 22 cm at lip. On AC vent settings, see assessment. OGT and josé inserted. TLC placed to R IJ. All lines/tubes confirmed on pCXR. Skin intact- bruising, anasarca noted. Facility called/updated by POSTBED STITCHER and aware of pt status/plan of care.
--- NOTE | 2022-05-19 20:34 | PM.CCN ---
Critical Care Event Note Summary Date of Service: 05/19/22 Code activated: Yes Narrative: This case had a high probability of a clinically significant, sudden, or life threatening deterioration of this patient's condition which required my full and direct attention, intervention and personal management. Critical Care Time (minutes): 60 Comment: 61-year-old gentleman with underlying hepatic cirrhosis, schizophrenia, Parkinson, chronic subdural, diastolic heart failure admitted with acute on chronic diastolic heart failure exacerbation with significant fluid retention and treated with p.o. torsemide, now with worsening confusion. Who was seen earlier by ICU for worsening encephalopathy, likely related to underlying liver cirrhosis and was suggested to increasing his lactulose either p.o. or as a retention enema.?Tonight, he was a rapid response that quickly turned into code blue on the floor. according to the nurse, patient was on his side being clean and receiving rectal lactulose when he became blue and later loss pulse CPR was quickly initiated, please see code sheet. ROSC was quickly acjeived after 5 minutes of ACLS. significant amount of vomit inpatient bed noted. patient likely aspirated and this lead to code blue. Will obtain labs place central line chest x-ray cover for aspiration Critical Care Time Critical Care Time (minutes): 60
[2022-05-19 20:44] LABS: ABG Refer to POC result
--- NOTE | 2022-05-19 20:49 | W.PM.CCHP ---
Procedures Date of Service Date of Service: 05/19/22 Central Line Placement Right IJ: Central Line Comments: Patient with poor peripheral access, requiring multiple lab draws and medications.? Central line placed Right internal jugular triple lumen central venous catheter placed in usual sterile conditions under ultrasound guidance for appropriate vascular access without immediate complications. Central line position verified with Chest XRAY. Consent for Procedure: Emergent-no informed consent obtained Time out performed: Yes Sterile Technique Used: Yes Patient placed on monitor/pulse ox: Yes MD prep: mask, gown and gloves Central line prep: Chlorhexidine scrub Local anesthesia used: other anesthetic (On propofol ) Ultrasound used for placement: Yes Central line lumen inserted: triple Post procedure: sutured in place, good blood return, all ports aspirated, flushed, capped and sterile dressing applied Post procedure x-ray: tip of catheter in good position and no pneumothorax seen Patient tolerated procedure: well and no complications Complications: none
[2022-05-19] MEDS: propofoL 1,000 MG/100 ML VIAL 36.78 MG IVCONT ×2 (20:56→21:47)
[2022-05-19] MEDS: fentaNYL citrate/NS 1,000 MCG/100 ML PLAST..BAG 10 MCG IVCONT (20:57)
[2022-05-19 21:48] LABS: Venous Blood Gas Refer to POC result
[2022-05-19 21:48] LABS: VBG Base Excess -3.2 mmol/L; VBG HCO3 22 mmol/L (22-26); VBG pCO2 45 mmHg; VBG pO2 91 mmHg
[2022-05-19 21:56] LABS: Ammonia 50 umol/L (13-55); Hematocrit 21.4 % (42.0-52.0); Hemoglobin 7.1 g/dl (14.0-18.0); Mean Corpuscular HGB Conc 33.2 g/dl (31.0-36.0); Mean Corpuscular Hemoglobin 31.1 pg (27.0-33.0); Mean Corpuscular Volume 93.9 fL (80.0-98.0); Mean Platelet Volume 10.5 fL (9.4-12.4); Platelet Count 127 X10*3/uL (160-400); Red Blood Count 2.28 X10*6/uL (4.60-5.80); Red Cell Distribution Width 18.4 % (11.0-16.0); White Blood Count 9.3 X10*3/uL (4.8-10.8)
[2022-05-19 21:59] LABS: Lactic Acid 1.5 mmol/L (0.5-2.0)
[2022-05-19 22:08] LABS: Alanine Aminotransferase 6 U/L (0-40); Albumin Level 2.8 g/dL (3.5-5.0); Alkaline Phosphatase 106 U/L (39-117); Anion Gap 14 (12-20); Aspartate Amino Transferase 45 U/L (5-37); Bilirubin Total 1.1 mg/dL (0.0-1.0); Blood Urea Nitrogen 44 mg/dL (9-16); Carbon Dioxide 22 mmol/L (22-29); Chloride 108 mmol/L (96-108); Creatinine Clr Calc Pharmacy 35.7; Estimated Glomerular Filt Rate 23; Glucose Random 129 mg/dL (60-115); Potassium 4.1 mmol/L (3.3-5.1); Sodium 140 mmol/L (135-145); Total Protein 6.4 g/dL (6.5-8.0)
[2022-05-19 22:10] LABS: Glucose, Whole Blood 109 mg/dL (60-115)
[2022-05-19] MEDS: Ampicillin Sodium/Sulbactam Na 3 GM in 0.9 % Sodium Chloride 100 ML IV (22:28)
[2022-05-19] MEDS: Furosemide 200 MG in 0.9 % Sodium Chloride 80 ML IVCONT (22:29)
[2022-05-19] MEDS: Lactulose 20 GM/30 ML SOLUTION OG-TUBE (23:02)
[2022-05-19] MEDS: 0.9 % Sodium Chloride Flush 3 ML SYRINGE IVFLUSH (23:34)
[2022-05-20] VITALS (43 sets, daily range): BP systolic 113–152; BP diastolic 41–58; PULSE 47–89; RESP 14–34; TEMP 34.2–37.1; O2SAT 87–100; BMI 39.4
[2022-05-20] MEDS: propofoL 1,000 MG/100 ML VIAL 22.07 MG IVCONT (01:19)
[2022-05-20] MEDS: fentaNYL citrate/NS 1,000 MCG/100 ML PLAST..BAG 7.5 MCG IVCONT ×2 (01:25→20:51)
[2022-05-20] MEDS: Albumin Human 25 % 100 ML IV ×4 (01:28→19:21)
[2022-05-20] MEDS: Ampicillin Sodium/Sulbactam Na 3 GM in 0.9 % Sodium Chloride 100 ML IV ×4 (03:36→20:51)
[2022-05-20] MEDS: Lactulose 20 GM/30 ML SOLUTION OG-TUBE ×4 (04:20→20:51)
[2022-05-20] MEDS: propofoL 1,000 MG/100 ML VIAL 14.71 MG IVCONT (04:33)
[2022-05-20] MEDS: Levothyroxine Sodium 25 MCG TABLET PO (05:07)
[2022-05-20] MEDS: Heparin Sodium,Porcine 5,000 UNIT/ML VIAL 5000 UNIT SUBCUT ×2 (05:08→18:05)
[2022-05-20 05:29] LABS: VBG Base Excess -4.8 mmol/L; VBG HCO3 18 mmol/L (22-26); VBG pCO2 28 mmHg; VBG pH 7.42 (7.32-7.43); VBG pO2 50 mmHg
[2022-05-20 05:29] LABS: MANUAL DIFF FLAG NO
[2022-05-20 05:34] LABS: Basophils Percent Auto 0.2 % (0-2); Eosinophils Absolute Auto 0.1 X10*3/uL (0.0-0.4); Eosinophils Percent Auto 1.7 % (0-4); Imm Gran Abs Auto 0.02 X10*3/uL (0.00-0.03); Imm Gran Pct Auto 0.3 % (0.0-0.4); Lymphocytes Absolute Auto 0.8 X10*3/uL (1.2-4.9); Lymphocytes Percent Auto 11.8 % (20-40); Mean Corpuscular HGB Conc 33.1 g/dl (31.0-36.0); Mean Corpuscular Hemoglobin 31.2 pg (27.0-33.0); Mean Corpuscular Volume 94.2 fL (80.0-98.0); Mean Platelet Volume 9.9 fL (9.4-12.4); Monocytes Absolute Auto 0.6 X10*3/uL (0.1-1.2); Monocytes Percent Auto 9.3 % (2-11); Neutrophils Percent Auto 76.7 % (45-73); Red Blood Count 1.73 X10*6/uL (4.60-5.80); Red Cell Distribution Width 18.6 % (11.0-16.0); White Blood Count 6.5 X10*3/uL (4.8-10.8)
[2022-05-20] MEDS: Pantoprazole Sodium 40 MG/10 ML VIAL IVPUSH (05:42)
[2022-05-20 05:44] LABS: Ammonia 29 umol/L (13-55); Platelet Count 69 X10*3/uL (160-400); Venous Blood Gas Refer to POC result
[2022-05-20 05:46] LABS: Hematocrit 16.3 % (42.0-52.0); Hemoglobin 5.4 g/dl (14.0-18.0)
[2022-05-20 05:52] LABS: Alanine Aminotransferase 6 U/L (0-40); Albumin Level 2.8 g/dL (3.5-5.0); Alkaline Phosphatase 74 U/L (39-117); Anion Gap 12 (12-20); Aspartate Amino Transferase 32 U/L (5-37); Bilirubin Total 0.7 mg/dL (0.0-1.0); Blood Urea Nitrogen 45 mg/dL (9-16); Calcium 7.9 mg/dL (8.4-10.2); Carbon Dioxide 23 mmol/L (22-29); Chloride 108 mmol/L (96-108); Creatinine Clr Calc Pharmacy 37.3; Estimated Glomerular Filt Rate 24; Glucose Random 118 mg/dL (60-115); Magnesium 2.2 mg/dL (1.6-2.6); Phosphorus 5.5 mg/dL (2.7-4.5); Potassium 3.9 mmol/L (3.3-5.1); Sodium 139 mmol/L (135-145); Total Protein 5.4 g/dL (6.5-8.0)
[2022-05-20] MEDS: DOPamine HCL/D5W 400 MG/250 ML PLAST..BAG 23.36 MG IVCONT ×2 (06:17→16:26)
--- NOTE | 2022-05-20 06:33 | PC.NURSE ---
CARE ASSUMED 23:15...REMAINS TUBED/VENTED...PROPOFOL/FENTANYL FOR VENT SYNCHRONY...LEVOPHED DRIP PER JAN...LASIX 5 MG/HR...URINE OUTPUT MARGINAL...SLIGHT IMPROVEMNT AFTER ALBUMEN X2 DOSES AND ANTIBIOTIC..OURPUT 30 CC/HR THIS AM...REMAINS BRADYCARDIC...SINUS MILNID HR 46-48..ICU COTTON SEED CULLER UPDATED...LEVOPHED CHANGED TO DOPAMINE 5 MCG/KG/MIN...HR IMPROVED TO 74-76..TO TREND URINE OUTPUT..AM H/H=5.4/16.3....TYPE AND SCREEN DRAWN AND TO TRANSFUSE PRBC X2 UNITS PER COTTON SEED CULLER
[2022-05-20] MEDS: 0.9 % Sodium Chloride Flush 3 ML SYRINGE IVFLUSH ×2 (07:12→15:18)
[2022-05-20 08:08] LABS: Glucose, Whole Blood 114 mg/dL (60-115)
--- NOTE | 2022-05-20 09:51 | MHC.CLN ---
PT IS CURRENTLY INTUBATED AND SEDATED IF TF NEEDED; RECOMMEND PROMOTE AT MAX GAOL RATE 75ML/HR WITH 120ML FREE WATER FLUSHES Q 8 HRS TO PROVIDE 1800KCALS (2188KCALS WITH SEDATION; 23KCALS/KG), 112.5G PROTEIN (1.2G/KG), 1870ML TOTAL WATER FROM FORMULA AND FLUSHES (25ML/KG BASED ON IBW) MONITOR TOLERANCE, RESIDUALS AND LYTES SEE ALSO FULL CLINICAL NUTRITION ASSESSMENT
--- NOTE | 2022-05-20 10:03 | MHC.CM.PN ---
Pt tranferred to ICU after cardiac arrest on IMC. Pt is intubated, sedated at this time. CM to contact pt's guardian to update. Pt is a LTC resident of [facility] and should return when medically stable.
[2022-05-20] MEDS: Chlorhexidine Gluc Oral Rinse 15 ML MOUTHWASH BUCCAL ×3 (10:35→20:51)
[2022-05-20] MEDS: Carbidopa/Levodopa 25/100 TABLET 1 TAB PO ×4 (10:35→20:51)
[2022-05-20] MEDS: Multivitamin TABLET 1 TAB PO (10:35)
[2022-05-20] MEDS: rifAXIMin 550 MG TABLET PO ×2 (10:36→20:51)
[2022-05-20] MEDS: propofoL 1,000 MG/100 ML VIAL 18.39 MG IVCONT ×2 (10:44→14:56)
--- NOTE | 2022-05-20 11:00 | CA_ITS ---
Transthoracic Echocardiogram Patient (Last, First, Middle): Adilson Blackburn, Gender: Male Date of : 1960 Age: 61 Procedure Date: 05/20/2022 Procedure Type: Transthoracic Echocardiogram Location: ICU Height: 177.8 cm Weight: 124.29 kg BSA: 2.39 m2 Heart Rate: bpm BP: 149 / 53 mmHg Wind Turbine Service Technician: TO Referring MD: Alvin Alba MD Symptoms: s/p cardiac arrest Study Quality: Adequate Conclusions: - Normal left ventricular cavity size. There is mildly increased left ventricular wall thickness. The left ventricular systolic function is hyperdynamic. The visually estimated ejection fraction is >70%. - E/E prime ratio is >15, consistent with elevated filling pressures. - Mildly increased right ventricular cavity size. There is normal right ventricular systolic function. Findings Left Ventricle Normal left ventricular cavity size. There is mildly increased left ventricular wall thickness. The left ventricular systolic function is hyperdynamic. The visually estimated ejection fraction is >70%. There is no evidence of regional wall motion abnormalities. Abnormal diastolic function is noted. Spectral Doppler is indicative of a pseudonormal filling pattern. E/E prime ratio is >15, consistent with elevated filling pressures. Right Ventricle Mildly increased right ventricular cavity size. There is normal right ventricular systolic function. Atria Mild biatrial enlargement. Aortic Valve There is a normal trileaflet aortic valve. There is mild calcification of the aortic valve. There is no aortic valve stenosis. There is no aortic valve regurgitation. Mitral Valve There is severe mitral annular calcification. There is trace mitral valve regurgitation. There is no mitral valve stenosis. Pulmonic Valve Normal pulmonic valve structure and function. There is no pulmonic valve regurgitation. Tricuspid Valve Normal tricuspid valve structure and function. There is trace tricuspid valve regurgitation. Indeterminate right atrial pressure. Moderate pulmonary hypertension is present. Great Vessels All visible segments of the aorta are normal in size. The visualized portions of the pulmonary artery and branches are normal. Venous The inferior vena cava is dilated and does not collapse with inspiration. Pericardium/Pleural There is no evidence of pericardial effusion. Measurements 2D Linear Measurements IVSd: 1.26 0.6-0.9/0.6-1.0 cm LVIDd: 5.66 3.9-5.3/4.2-5.9 cm LVIDd Index: 2.37 2.4-3.2/2.2-3.1 cm/m2 LVIDs: 2.79 2.0-3.6 cm LVPWd: 1.21 0.7-1.1 cm LA Diam: 4.30 2.7-3.8/3.0-4.0 cm LAIDs Index: 1.80 1.5-2.3 cm/m2 LV Mass: 370.29 67-162/88-224 g LV Mass Index: 154.93 43-95/49-115 g/m2 LVOT Diam: 2.10 3.0+(-)1.3 cm 2D Systolic Function EF 4C: 69.60 >55% EF 2C: 68.30 >55% EF BiP: 68.60 >55% Mitral Valve MV Pk E: 1.39 MV PK A: 0.85 MV Decel Time: 252.00 E/A: 1.60 E'Lateral: 10.00 E'Medial: 8.05 E/E' Med: 17.30 E/E' Lat: 13.90 PHT: 74.00 MVA PHT: 2.97 Decel Mcdowell: 5.53 Aortic Valve AoV Pk Davide: 1.88 AoV Mn Davide: 1.34 AoV VTI: 0.41 AoV Pk Grad: 14.00 Aov Mn Grad: 8.00 BAM Cont.VTI: 2.27 LVOT LVOT Pk Davide: 1.25 LVOT Mn Davide: 0.89 LVOT VTI: 0.27 LVOT Pk Grad: 6.00 LVOT Mn Grad: 4.00 LVOT Diam: 2.10 LVOT Area: 3.46 Diastolic Function MV Pk E: 1.39 MV Pk A: 0.85 E/A: 1.60 E'Medial: 8.05 E/E' Med: 17.30 E' Laterial: 10.00 E/E' Lat: 13.90 Right Ventricle TAPSE (mm): 29.10 TVS' Davide: 16.10 Tricuspid Valve TR Pk Davide: 3.03 TR Pk Grad: 37.00 RA Press: 15.00 RVSP: 52.00 Great Vessels Aorta Sinus of Valsalva: 3.53 2.0-3.[address] Ridge: 2.56 1.7-3.4 cm Ao Asc: 3.30 2.1-3.4 cm Updated in Other Vendor System with Status of Final Cristo Valverde MD electronically signed on 05/21/2022 1:09:55 AM with status of Final
[2022-05-20 11:48] LABS: Glucose, Whole Blood 129 mg/dL (60-115)
--- NOTE | 2022-05-20 11:59 | PM.CCPN ---
Subjective Subjective Date of Service: 05/20/22 Interval History: 61-year-old gentleman with underlying hepatic cirrhosis, schizophrenia, Parkinson, chronic subdural, diastolic heart failure admitted with acute on chronic diastolic heart failure exacerbation of significant fluid retention and treated with diuretic. Hospital course also significant for worsening confusion, poor p.o. intake, worsening hepatic encephalopathy, respiratory arrest on 05/19/2022 with a chunk of meat removed from hypopharynx on intubation during CPR, returned spontaneous circulation after 2 rounds of CPR, transferred to the intensive care unit. No events overnight. Critical Care Time (minutes): 45 Physical Exam Vital Signs: Vital Signs: Last Vital Signs Temp 97.2 F 05/20/22 10:40 Pulse 85 05/20/22 11:00 Resp 18 05/20/22 11:00 BP 134/55 L 05/20/22 11:00 Pulse Ox 99 05/20/22 11:00 O2 Del Method 05/20/22 11:00 O2 Flow Rate 2 05/19/22 03:15 FiO2 50 05/20/22 11:34 BMI result Body Mass Index 39.4 Const: General: no acute distress and other (Sedated on the vent, anasarca) Eyes: Sclerae: sclerae normal EOM: EOMs intact bilaterally Neck: Neck: Yes no lymphadenopathy, Yes trachea midline and Yes supple Resp: Auscultation: crackles (Diffuse bilateral) Cardio: Rate: regular rate Rhythm: regular rhythm Heart sounds: no gallops, no murmurs and no rubs GI: Palpation (GI): Soft to palpation and Other GI palpation findings present ( Nontender) Auscultation: normal bowel sounds Extrem: General: No clubbing, No cyanosis and Yes pedal edema (2+ bilateral) Objective Data Labs CBC & Chem 7: 05/20/22 05:20 05/20/22 05:20 Labs: Laboratory Results - last 24 hr 05/19/22 05/19/22 05/19/22 13:12 15:42 17:39 WBC RBC Hgb Hct MCV MCH MCHC RDW Plt Count MPV Immature Gran % (Auto) Neut % (Auto) Lymph % (Auto) Gilliam % (Auto) Eos % (Auto) Baso % (Auto) Lymph # (Auto) Gilliam # (Auto) Eos # (Auto) Baso # (Auto) Abs Immat Gran (auto) Absolute Neuts (auto) Absolute Nucleated RBC Nucleated RBC % (auto) O2 Saturation 96.0 ABG pH at Pt Temp 7.41 ABG pCO2 at Pt Temp 29 L ABG pO2 at Pt Temp 83 ABG HCO3 18 L ABG Base Excess (Actual) -4.8 VBG pH VBG pCO2 VBG pO2 VBG HCO3 VBG O2 Saturation VBG Base Excess Sodium Potassium Chloride Carbon Dioxide Anion Gap BUN Creatinine Estim Creat Clear Calc Estimated GFR POC Glucose 95 Random Glucose Lactic Acid Calcium Phosphorus Magnesium Total Bilirubin AST ALT Alkaline Phosphatase Ammonia 57 H Troponin I High Sens Total Protein Albumin Blood Type Antibody Screen Crossmatch 05/19/22 05/19/22 05/19/22 21:37 21:37 21:37 WBC 9.3 RBC 2.28 L Hgb 7.1 L Hct 21.4 L MCV 93.9 MCH 31.1 MCHC 33.2 RDW 18.4 H Plt Count 127 L MPV 10.5 Immature Gran % (Auto) Neut % (Auto) Lymph % (Auto) Gilliam % (Auto) Eos % (Auto) Baso % (Auto) Lymph # (Auto) Gilliam # (Auto) Eos # (Auto) Baso # (Auto) Abs Immat Gran (auto) Absolute Neuts (auto) Absolute Nucleated RBC 0.000 Nucleated RBC % (auto) 0.0 O2 Saturation ABG pH at Pt Temp ABG pCO2 at Pt Temp ABG pO2 at Pt Temp ABG HCO3 ABG Base Excess (Actual) VBG pH VBG pCO2 VBG pO2 VBG HCO3 VBG O2 Saturation VBG Base Excess Sodium 140 Potassium 4.1 Chloride 108 Carbon Dioxide 22 Anion Gap 14 BUN 44 H Creatinine 2.78 H Estim Creat Clear Calc 35.7 Estimated GFR 23 POC Glucose Random Glucose 129 H Lactic Acid 1.5 Calcium 8.0 L Phosphorus Magnesium Total Bilirubin 1.1 H AST 45 H D ALT 6 Alkaline Phosphatase 106 Ammonia Troponin I High Sens Total Protein 6.4 L Albumin 2.8 L Blood Type Antibody Screen Crossmatch 05/19/22 05/19/22 05/19/22 21:37 21:42 22:07 WBC RBC Hgb Hct MCV MCH MCHC RDW Plt Count MPV Immature Gran % (Auto) Neut % (Auto) Lymph % (Auto) Gilliam % (Auto) Eos % (Auto) Baso % (Auto) Lymph # (Auto) Gilliam # (Auto) Eos # (Auto) Baso # (Auto) Abs Immat Gran (auto) Absolute Neuts (auto) Absolute Nucleated RBC Nucleated RBC % (auto) O2 Saturation ABG pH at Pt Temp ABG pCO2 at Pt Temp ABG pO2 at Pt Temp ABG HCO3 ABG Base Excess (Actual) VBG pH 7.30 L VBG pCO2 45 VBG pO2 91 VBG HCO3 22 VBG O2 Saturation 98.0 VBG Base Excess -3.2 Sodium Potassium Chloride Carbon Dioxide Anion Gap BUN Creatinine Estim Creat Clear Calc Estimated GFR POC Glucose 109 Random Glucose Lactic Acid Calcium Phosphorus Magnesium Total Bilirubin AST ALT Alkaline Phosphatase Ammonia 50 Troponin I High Sens Total Protein Albumin Blood Type Antibody Screen Crossmatch 05/20/22 05/20/22 05/20/22 00:48 05:20 05:20 WBC 6.5 RBC 1.73 L D Hgb 5.4 L* D Hct 16.3 L* D MCV 94.2 MCH 31.2 MCHC 33.1 RDW 18.6 H Plt Count 69 L D MPV 9.9 Immature Gran % (Auto) 0.3 Neut % (Auto) 76.7 H Lymph % (Auto) 11.8 L Gilliam % (Auto) 9.3 Eos % (Auto) 1.7 Baso % (Auto) 0.2 Lymph # (Auto) 0.8 L Gilliam # (Auto) 0.6 Eos # (Auto) 0.1 Baso # (Auto) 0.0 Abs Immat Gran (auto) 0.02 Absolute Neuts (auto) 5.0 Absolute Nucleated RBC 0.000 Nucleated RBC % (auto) 0.0 O2 Saturation ABG pH at Pt Temp ABG pCO2 at Pt Temp ABG pO2 at Pt Temp ABG HCO3 ABG Base Excess (Actual) VBG pH VBG pCO2 VBG pO2 VBG HCO3 VBG O2 Saturation VBG Base Excess Sodium 139 Potassium 3.9 Chloride 108 Carbon Dioxide 23 Anion Gap 12 BUN 45 H Creatinine 2.68 H Estim Creat Clear Calc 37.3 Estimated GFR 24 POC Glucose Random Glucose 118 H Lactic Acid Calcium 7.9 L Phosphorus 5.5 H Magnesium 2.2 Total Bilirubin 0.7 AST 32 ALT 6 Alkaline Phosphatase 74 D Ammonia Troponin I High Sens 47.0 H D Total Protein 5.4 L Albumin 2.8 L Blood Type Antibody Screen Crossmatch 05/20/22 05/20/22 05/20/22 05:20 05:25 06:07 WBC RBC Hgb Hct MCV MCH MCHC RDW Plt Count MPV Immature Gran % (Auto) Neut % (Auto) Lymph % (Auto) Gilliam % (Auto) Eos % (Auto) Baso % (Auto) Lymph # (Auto) Gilliam # (Auto) Eos # (Auto) Baso # (Auto) Abs Immat Gran (auto) Absolute Neuts (auto) Absolute Nucleated RBC Nucleated RBC % (auto) O2 Saturation ABG pH at Pt Temp ABG pCO2 at Pt Temp ABG pO2 at Pt Temp ABG HCO3 ABG Base Excess (Actual) VBG pH 7.42 VBG pCO2 28 VBG pO2 50 VBG HCO3 18 L VBG O2 Saturation 82.0 VBG Base Excess -4.8 Sodium Potassium Chloride Carbon Dioxide Anion Gap BUN Creatinine Estim Creat Clear Calc Estimated GFR POC Glucose Random Glucose Lactic Acid Calcium Phosphorus Magnesium Total Bilirubin AST ALT Alkaline Phosphatase Ammonia 29 Troponin I High Sens Total Protein Albumin Blood Type A Positive Antibody Screen NEGATIVE Crossmatch See Detail 05/20/22 05/20/22 08:04 11:45 WBC RBC Hgb Hct MCV MCH MCHC RDW Plt Count MPV Immature Gran % (Auto) Neut % (Auto) Lymph % (Auto) Gilliam % (Auto) Eos % (Auto) Baso % (Auto) Lymph # (Auto) Gilliam # (Auto) Eos # (Auto) Baso # (Auto) Abs Immat Gran (auto) Absolute Neuts (auto) Absolute Nucleated RBC Nucleated RBC % (auto) O2 Saturation ABG pH at Pt Temp ABG pCO2 at Pt Temp ABG pO2 at Pt Temp ABG HCO3 ABG Base Excess (Actual) VBG pH VBG pCO2 VBG pO2 VBG HCO3 VBG O2 Saturation VBG Base Excess Sodium Potassium Chloride Carbon Dioxide Anion Gap BUN Creatinine Estim Creat Clear Calc Estimated GFR POC Glucose 114 129 H Random Glucose Lactic Acid Calcium Phosphorus Magnesium Total Bilirubin AST ALT Alkaline Phosphatase Ammonia Troponin I High Sens Total Protein Albumin Blood Type Antibody Screen Crossmatch Microbiology Microbiology Results: Microbiology 05/17/22 17:00 Blood - Venous Blood Culture - Preliminary No growth after 48 hours. 05/17/22 16:10 Blood - Venous Blood Culture - Preliminary No growth after 48 hours. Progress Note: A&P Assessment and plan (1) Respiratory arrest associated with feeding: Status: Acute (2) Schizophrenia: Status: Acute (3) Cirrhosis: Status: Acute (4) Toxic metabolic encephalopathy: Status: Acute (5) Type 2 diabetes mellitus with diabetic polyneuropathy: Status: Acute (6) Parkinson disease: Status: Acute (7) Acute on chronic diastolic (congestive) heart failure: Status: Acute (8) Acute kidney injury superimposed on chronic kidney disease: Status: Acute Plan Assessment: 61-year-old gentleman with underlying cirrhosis with hepatic encephalopathy, parkinsonian disease with dementia, schizophrenia, admitted with acute on chronic exacerbation of underlying diastolic congestive heart failure further complicated by worsening hepatic encephalopathy with hospital course complicated by respiratory arrest with returned spontaneous circulation after 2 rounds of CPR, intubated during CPR. Plan: Neuro: Underlying schizophrenia, dementia, and hepatic encephalopathy. Continue with lactulose. If no improvement in mental status, will consider MRI brain. Cardiac: Status post pulseless electrical activity cardiac arrest secondary to respiratory arrest with returned spontaneous circulation after to around of CPR. Continue to titrate of pressor support as tolerated. 2D echocardiogram is pending. Underlying acute exacerbation of chronic diastolic congestive heart failure, resumed diuresis when blood pressure allows. Pulmonary: Acute hypoxic respiratory failure secondary to pulmonary aspiration of food particle resulting in respiratory arrest, intubated during CPR. Continue to titrate of ventilatory support as tolerated. Renal: Acute on chronic renal failure, non oliguric. Continue to monitor renal indices and urine output. Endo: No acute issues. Underlying diabetes mellitus. GI: No acute issues. ID: No acute issues. Empirically covered for aspiration. Heme/Onc: Acute anemia, likely dilutional. Patient to receive 2 units of packed red blood cells. Continue to monitor hemoglobin level. Psych: No acute issues. Miscellaneous: No acute issues. Prophylaxis: Heparin, ppi Diet: Nothing by mouth Critical care time spent: 45 minutes Quality Stroke Does the patient have a stroke diagnosis?: No VTE Prior VTE?: No VTE Risk Level:: Medical - moderate - high VTE Device Contraindication: Treatment Not Indicated VTE Drug Contraindication: N/A - Med Ordered
[2022-05-20 14:01] LABS: GASOB Int Neg Ctl Valid YES; GASOB Int Pos Ctl Valid YES; Occult Blood Gastric NEGATIVE (NEG)
[2022-05-20] MEDS: Bumetanide 25 MG in Container,Empty 0 ML 4 MG IVCONT (15:01)
--- NOTE | 2022-05-20 15:47 | PC.NURSE ---
Addendum entered by Ashley Ceja RN 05/20/22 18:36: LASIX GTT TURNED OFF PER MD ORDER AND CHANGED TO BUMEX GTT. BUMEX GTT TURNED OFF AT 1710 DUE TO DECREASE IN URINE OUTPUT PER MD. Original Note: ?LEAK IN ETT. MD AND RT BEDSIDE TO ASSESS. ETT CHANGED: 8.0 @LIP. TUBE TAMER CHANGED BY RT.
[2022-05-20 15:57] LABS: Glucose, Whole Blood 113 mg/dL (60-115)
[2022-05-20 18:29] LABS: MANUAL DIFF FLAG NO
[2022-05-20 18:31] LABS: Basophils Percent Auto 0.1 % (0-2); Eosinophils Absolute Auto 0.2 X10*3/uL (0.0-0.4); Hemoglobin 7.5 g/dl (14.0-18.0); Imm Gran Abs Auto 0.04 X10*3/uL (0.00-0.03); Imm Gran Pct Auto 0.5 % (0.0-0.4); Lymphocytes Absolute Auto 0.6 X10*3/uL (1.2-4.9); Mean Corpuscular HGB Conc 34.1 g/dl (31.0-36.0); Mean Corpuscular Hemoglobin 31.3 pg (27.0-33.0); Mean Corpuscular Volume 91.7 fL (80.0-98.0); Mean Platelet Volume 10.5 fL (9.4-12.4); Monocytes Absolute Auto 0.8 X10*3/uL (0.1-1.2); Monocytes Percent Auto 9.5 % (2-11); Neutrophils Absolute Auto 6.6 x10*3/uL (2.0-8.3); Neutrophils Percent Auto 80.9 % (45-73); Platelet Count 80 X10*3/uL (160-400); Red Cell Distribution Width 18.2 % (11.0-16.0); White Blood Count 8.1 X10*3/uL (4.8-10.8)
[2022-05-20 18:48] LABS: Anion Gap 16 (12-20); Blood Urea Nitrogen 46 mg/dL (9-16); Calcium 8.2 mg/dL (8.4-10.2); Carbon Dioxide 22 mmol/L (22-29); Chloride 106 mmol/L (96-108); Creatinine Clr Calc Pharmacy 36.4; Estimated Glomerular Filt Rate 23; Glucose Random 117 mg/dL (60-115); Potassium 3.9 mmol/L (3.3-5.1); Sodium 140 mmol/L (135-145)
[2022-05-20] MEDS: propofoL 1,000 MG/100 ML VIAL 29.42 MG IVCONT ×2 (19:25→22:30)
[2022-05-20 21:23] LABS: Glucose, Whole Blood 117 mg/dL (60-115)
[2022-05-21] VITALS (35 sets, daily range): BP systolic 121–159; BP diastolic 46–69; PULSE 65–82; RESP 11–18; TEMP 33.9–37.7; O2SAT 90–98; BMI 40.6
[2022-05-21] MEDS: Albumin Human 25 % 100 ML IV ×2 (00:54→06:19)
[2022-05-21] MEDS: 0.9 % Sodium Chloride Flush 3 ML SYRINGE IVFLUSH ×3 (00:54→15:00)
[2022-05-21] MEDS: propofoL 1,000 MG/100 ML VIAL 29.42 MG IVCONT ×2 (00:59→04:07)
[2022-05-21] MEDS: DOPamine HCL/D5W 400 MG/250 ML PLAST..BAG 23.36 MG IVCONT ×2 (03:03→13:29)
[2022-05-21] MEDS: Ampicillin Sodium/Sulbactam Na 3 GM in 0.9 % Sodium Chloride 100 ML IV ×4 (03:04→20:05)
[2022-05-21] MEDS: Lactulose 20 GM/30 ML SOLUTION OG-TUBE ×4 (03:04→20:05)
[2022-05-21] MEDS: Pantoprazole Sodium 40 MG/10 ML VIAL IVPUSH (05:03)
[2022-05-21] MEDS: Heparin Sodium,Porcine 5,000 UNIT/ML VIAL 5000 UNIT SUBCUT ×2 (05:03→17:02)
[2022-05-21] MEDS: Levothyroxine Sodium 25 MCG TABLET PO (05:03)
[2022-05-21 05:25] LABS: VBG Base Excess -7.9 mmol/L; VBG HCO3 16 mmol/L (22-26); VBG pCO2 27 mmHg; VBG pH 7.37 (7.32-7.43); VBG pO2 73 mmHg
[2022-05-21 05:41] LABS: MANUAL DIFF FLAG NO
[2022-05-21 05:49] LABS: Basophils Percent Auto 0.3 % (0-2); Eosinophils Absolute Auto 0.3 X10*3/uL (0.0-0.4); Imm Gran Abs Auto 0.02 X10*3/uL (0.00-0.03); Imm Gran Pct Auto 0.5 % (0.0-0.4); Lymphocytes Absolute Auto 0.5 X10*3/uL (1.2-4.9); Lymphocytes Percent Auto 14.1 % (20-40); Mean Corpuscular HGB Conc 33.3 g/dl (31.0-36.0); Mean Corpuscular Hemoglobin 30.9 pg (27.0-33.0); Mean Corpuscular Volume 92.7 fL (80.0-98.0); Mean Platelet Volume 10.4 fL (9.4-12.4); Monocytes Absolute Auto 0.4 X10*3/uL (0.1-1.2); Monocytes Percent Auto 10.1 % (2-11); Neutrophils Absolute Auto 2.5 x10*3/uL (2.0-8.3); Red Cell Distribution Width 18.5 % (11.0-16.0); White Blood Count 3.8 X10*3/uL (4.8-10.8)
[2022-05-21 06:03] LABS: Anion Gap 16 (12-20); Blood Urea Nitrogen 43 mg/dL (9-16); Calcium 8.1 mg/dL (8.4-10.2); Carbon Dioxide 21 mmol/L (22-29); Chloride 107 mmol/L (96-108); Creatinine Clr Calc Pharmacy 36.9; Estimated Glomerular Filt Rate 24; Glucose Random 127 mg/dL (60-115); Magnesium 2.1 mg/dL (1.6-2.6); Phosphorus 6.1 mg/dL (2.7-4.5); Potassium 3.7 mmol/L (3.3-5.1); Sodium 140 mmol/L (135-145); Venous Blood Gas Refer to POC result
[2022-05-21 06:08] LABS: Platelet Count 51 X10*3/uL (160-400)
[2022-05-21 06:14] LABS: Hemoglobin 6.8 g/dl (14.0-18.0)
[2022-05-21 06:18] LABS: Hematocrit 20.4 % (42.0-52.0)
[2022-05-21] MEDS: propofoL 1,000 MG/100 ML VIAL 25.75 MG IVCONT (07:19)
[2022-05-21] MEDS: fentaNYL citrate/NS 1,000 MCG/100 ML PLAST..BAG 5 MCG IVCONT (09:06)
[2022-05-21] MEDS: Chlorhexidine Gluc Oral Rinse 15 ML MOUTHWASH BUCCAL ×3 (09:07→20:05)
[2022-05-21] MEDS: Carbidopa/Levodopa 25/100 TABLET 1 TAB PO ×4 (09:07→20:05)
[2022-05-21] MEDS: rifAXIMin 550 MG TABLET PO ×2 (09:07→20:05)
--- NOTE | 2022-05-21 10:23 | PM.CCPN ---
Subjective Subjective Date of Service: 05/21/22 Interval History: 61-year-old gentleman with underlying hepatic cirrhosis, schizophrenia, Parkinson, chronic subdural, diastolic heart failure admitted with acute on chronic diastolic heart failure exacerbation of significant fluid retention and treated with diuretic. Hospital course also significant for worsening confusion, poor p.o. intake, worsening hepatic encephalopathy, respiratory arrest on 05/19/2022 with a chunk of meat removed from hypopharynx on intubation during CPR, returned spontaneous circulation after 2 rounds of CPR, transferred to the intensive care unit. No events overnight. Poor arousal with sedation vacation Critical Care Time (minutes): 45 Physical Exam Vital Signs: Vital Signs: Last Vital Signs Temp 93.9 F L 05/21/22 10:00 Pulse 68 05/21/22 10:00 Resp 16 05/21/22 10:00 BP 134/49 L 05/21/22 10:00 Pulse Ox 91 L 05/21/22 10:00 O2 Del Method 05/21/22 10:00 O2 Flow Rate 40 05/21/22 09:00 FiO2 40 05/21/22 10:00 BMI result Body Mass Index 40.6 Const: General: no acute distress and other ( anasarca, poor arousal with sedation vacation) Eyes: Sclerae: sclerae normal Neck: Neck: Yes no lymphadenopathy, Yes trachea midline and Yes supple Resp: Auscultation: crackles ( diffuse bilateral) Cardio: Rate: regular rate Rhythm: regular rhythm Heart sounds: no gallops, no murmurs and no rubs GI: Palpation (GI): Soft to palpation and Other GI palpation findings present ( Nontender) Auscultation: normal bowel sounds Extrem: General: No clubbing, No cyanosis and Yes pedal edema ( 2+ bilateral) Objective Data Labs CBC & Chem 7: 05/21/22 05:10 05/21/22 05:10 Labs: Laboratory Results - last 24 hr 05/20/22 05/20/22 05/20/22 06:07 11:45 13:37 WBC RBC Hgb Hct MCV MCH MCHC RDW Plt Count MPV Immature Gran % (Auto) Neut % (Auto) Lymph % (Auto) [place] % (Auto) Eos % (Auto) Baso % (Auto) Lymph # (Auto) [place] # (Auto) Eos # (Auto) Baso # (Auto) Abs Immat Gran (auto) Absolute Neuts (auto) Absolute Nucleated RBC Nucleated RBC % (auto) VBG pH VBG pCO2 VBG pO2 VBG HCO3 VBG O2 Saturation VBG Base Excess Sodium Potassium Chloride Carbon Dioxide Anion Gap BUN Creatinine Estim Creat Clear Calc Estimated GFR POC Glucose 129 H Random Glucose Calcium Phosphorus Magnesium Gastric Occult Blood NEGATIVE Blood Type A Positive Antibody Screen NEGATIVE Crossmatch See Detail 05/20/22 05/20/22 05/20/22 15:53 18:09 18:09 WBC 8.1 RBC 2.40 L D Hgb 7.5 L D Hct 22.0 L D MCV 91.7 MCH 31.3 MCHC 34.1 RDW 18.2 H Plt Count 80 L MPV 10.5 Immature Gran % (Auto) 0.5 H Neut % (Auto) 80.9 H Lymph % (Auto) 7.0 L [place] % (Auto) 9.5 Eos % (Auto) 2.0 Baso % (Auto) 0.1 Lymph # (Auto) 0.6 L [place] # (Auto) 0.8 Eos # (Auto) 0.2 Baso # (Auto) 0.0 Abs Immat Gran (auto) 0.04 H Absolute Neuts (auto) 6.6 Absolute Nucleated RBC 0.000 Nucleated RBC % (auto) 0.0 VBG pH VBG pCO2 VBG pO2 VBG HCO3 VBG O2 Saturation VBG Base Excess Sodium 140 Potassium 3.9 Chloride 106 Carbon Dioxide 22 Anion Gap 16 BUN 46 H Creatinine 2.75 H Estim Creat Clear Calc 36.4 Estimated GFR 23 POC Glucose 113 Random Glucose 117 H Calcium 8.2 L Phosphorus Magnesium Gastric Occult Blood Blood Type Antibody Screen Crossmatch 05/20/22 05/21/22 05/21/22 21:18 05:10 05:10 WBC 3.8 L RBC 2.20 L Hgb 6.8 L* Hct 20.4 L* MCV 92.7 MCH 30.9 MCHC 33.3 RDW 18.5 H Plt Count 51 L D MPV 10.4 Immature Gran % (Auto) 0.5 H Neut % (Auto) 67.0 Lymph % (Auto) 14.1 L [place] % (Auto) 10.1 Eos % (Auto) 8.0 H Baso % (Auto) 0.3 Lymph # (Auto) 0.5 L [place] # (Auto) 0.4 Eos # (Auto) 0.3 Baso # (Auto) 0.0 Abs Immat Gran (auto) 0.02 Absolute Neuts (auto) 2.5 Absolute Nucleated RBC 0.000 Nucleated RBC % (auto) 0.0 VBG pH VBG pCO2 VBG pO2 VBG HCO3 VBG O2 Saturation VBG Base Excess Sodium 140 Potassium 3.7 Chloride 107 Carbon Dioxide 21 L Anion Gap 16 BUN 43 H Creatinine 2.71 H Estim Creat Clear Calc 36.9 Estimated GFR 24 POC Glucose 117 H Random Glucose 127 H Calcium 8.1 L Phosphorus 6.1 H Magnesium 2.1 Gastric Occult Blood Blood Type Antibody Screen Crossmatch 05/21/22 05:21 WBC RBC Hgb Hct MCV MCH MCHC RDW Plt Count MPV Immature Gran % (Auto) Neut % (Auto) Lymph % (Auto) [place] % (Auto) Eos % (Auto) Baso % (Auto) Lymph # (Auto) [place] # (Auto) Eos # (Auto) Baso # (Auto) Abs Immat Gran (auto) Absolute Neuts (auto) Absolute Nucleated RBC Nucleated RBC % (auto) VBG pH 7.37 VBG pCO2 27 VBG pO2 73 VBG HCO3 16 L VBG O2 Saturation 95.0 VBG Base Excess -7.9 Sodium Potassium Chloride Carbon Dioxide Anion Gap BUN Creatinine Estim Creat Clear Calc Estimated GFR POC Glucose Random Glucose Calcium Phosphorus Magnesium Gastric Occult Blood Blood Type Antibody Screen Crossmatch Microbiology Microbiology Results: Microbiology 05/20/22 00:48 Blood - Venous Blood Culture - Preliminary No growth after 24 hours. 05/20/22 00:48 Blood - Venous Blood Culture - Preliminary No growth after 24 hours. 05/17/22 17:00 Blood - Venous Blood Culture - Preliminary No growth after 48 hours. 05/17/22 16:10 Blood - Venous Blood Culture - Preliminary No growth after 48 hours. Progress Note: A&P Assessment and plan (1) Parkinson disease: Status: Acute (2) Toxic metabolic encephalopathy: Status: Acute (3) Type 2 diabetes mellitus with diabetic polyneuropathy: Status: Acute (4) Respiratory arrest associated with feeding: Status: Acute (5) Unspecified dementia with behavioral disturbance: Status: Acute (6) Schizophrenia: Status: Acute (7) Cirrhosis: Status: Acute (8) Acute on chronic diastolic (congestive) heart failure: Status: Acute (9) Acute kidney injury superimposed on chronic kidney disease: Status: Acute Plan Assessment: 61-year-old gentleman with underlying cirrhosis with hepatic encephalopathy, parkinsonian disease with dementia, schizophrenia, admitted with acute on chronic exacerbation of underlying diastolic congestive heart failure further complicated by worsening hepatic encephalopathy with hospital course complicated by respiratory arrest with returned spontaneous circulation after 2 rounds of CPR, intubated during CPR. Plan: Neuro: Underlying schizophrenia, dementia, and hepatic encephalopathy. Continue with lactulose. Poor arousal with sedation vacation, if no improvement in mental status, will consider MRI brain. Cardiac: Status post pulseless electrical activity cardiac arrest secondary to respiratory arrest with returned spontaneous circulation after to around of CPR. Continue to titrate of pressor support as tolerated. 2D echocardiogram is pending. Underlying acute exacerbation of chronic diastolic congestive heart failure, resumed diuresis when blood pressure allows. Pulmonary: Acute hypoxic respiratory failure secondary to pulmonary aspiration of food resulting in respiratory arrest, intubated during CPR. Continue to titrate off ventilatory support as tolerated. Renal: Acute on chronic renal failure, non oliguric. Continue to monitor renal indices and urine output. Endo: No acute issues. Underlying diabetes mellitus. GI: No acute issues. ID: No acute issues. Empirically covered for aspiration. Heme/Onc: Acute anemia, likely dilutional. Patient to receive 1 unit of packed red blood cells. Continue to monitor hemoglobin level. Psych: No acute issues. Miscellaneous: No acute issues. Prophylaxis: Heparin, ppi Diet: Nothing by mouth Critical care time spent: 45 minutes Quality Stroke Does the patient have a stroke diagnosis?: No VTE Prior VTE?: No VTE Risk Level:: Medical - moderate - high VTE Device Contraindication: Treatment Not Indicated VTE Drug Contraindication: N/A - Med Ordered
[2022-05-21 11:48] LABS: Glucose, Whole Blood 123 mg/dL (60-115)
[2022-05-21 16:59] LABS: Glucose, Whole Blood 108 mg/dL (60-115)
[2022-05-21 18:05] LABS: Glucose, Whole Blood 107 mg/dL (60-115)
[2022-05-22] VITALS (30 sets, daily range): BP systolic 116–167; BP diastolic 37–75; PULSE 59–84; RESP 11–21; TEMP 34.6–37.9; O2SAT 91–97; BMI 40.7
[2022-05-22] MEDS: 0.9 % Sodium Chloride Flush 3 ML SYRINGE IVFLUSH ×3 (00:17→15:22)
[2022-05-22 00:19] LABS: Glucose, Whole Blood 106 mg/dL (60-115)
[2022-05-22] MEDS: Lactulose 20 GM/30 ML SOLUTION OG-TUBE ×4 (03:31→20:46)
[2022-05-22] MEDS: Ampicillin Sodium/Sulbactam Na 3 GM in 0.9 % Sodium Chloride 100 ML IV ×4 (03:31→20:42)
[2022-05-22] MEDS: Pantoprazole Sodium 40 MG/10 ML VIAL IVPUSH (05:11)
[2022-05-22] MEDS: Levothyroxine Sodium 25 MCG TABLET PO (05:11)
[2022-05-22 05:27] LABS: VBG Base Excess -3.2 mmol/L; VBG HCO3 20 mmol/L (22-26); VBG pCO2 30 mmHg; VBG pH 7.43 (7.32-7.43); VBG pO2 69 mmHg
[2022-05-22 05:36] LABS: MANUAL DIFF FLAG NO
[2022-05-22 05:38] LABS: Venous Blood Gas Refer to POC result
[2022-05-22 05:41] LABS: Basophils Percent Auto 0.2 % (0-2); Eosinophils Absolute Auto 0.1 X10*3/uL (0.0-0.4); Eosinophils Percent Auto 2.5 % (0-4); Hematocrit 21.9 % (42.0-52.0); Hemoglobin 7.3 g/dl (14.0-18.0); Imm Gran Abs Auto 0.01 X10*3/uL (0.00-0.03); Imm Gran Pct Auto 0.2 % (0.0-0.4); Lymphocytes Absolute Auto 0.5 X10*3/uL (1.2-4.9); Lymphocytes Percent Auto 12.8 % (20-40); Mean Corpuscular HGB Conc 33.3 g/dl (31.0-36.0); Mean Corpuscular Hemoglobin 30.5 pg (27.0-33.0); Mean Corpuscular Volume 91.6 fL (80.0-98.0); Mean Platelet Volume 10.5 fL (9.4-12.4); Monocytes Absolute Auto 0.5 X10*3/uL (0.1-1.2); Monocytes Percent Auto 11.6 % (2-11); Neutrophils Absolute Auto 2.9 x10*3/uL (2.0-8.3); Neutrophils Percent Auto 72.7 % (45-73); Platelet Count 55 X10*3/uL (160-400); Red Blood Count 2.39 X10*6/uL (4.60-5.80); Red Cell Distribution Width 18.2 % (11.0-16.0); White Blood Count 4.1 X10*3/uL (4.8-10.8)
[2022-05-22 05:43] LABS: Glucose, Whole Blood 98 mg/dL (60-115)
[2022-05-22 06:01] LABS: Alanine Aminotransferase 8 U/L (0-40); Albumin Level 3.1 g/dL (3.5-5.0); Alkaline Phosphatase 65 U/L (39-117); Anion Gap 16 (12-20); Aspartate Amino Transferase 46 U/L (5-37); Bilirubin Total 1.6 mg/dL (0.0-1.0); Blood Urea Nitrogen 45 mg/dL (9-16); Calcium 7.9 mg/dL (8.4-10.2); Carbon Dioxide 21 mmol/L (22-29); Chloride 108 mmol/L (96-108); Creatinine Clr Calc Pharmacy 34.5; Estimated Glomerular Filt Rate 22; Glucose Random 106 mg/dL (60-115); Magnesium 2.2 mg/dL (1.6-2.6); Phosphorus 5.9 mg/dL (2.7-4.5); Potassium 3.6 mmol/L (3.3-5.1); Sodium 141 mmol/L (135-145); Total Protein 5.5 g/dL (6.5-8.0)
[2022-05-22] MEDS: rifAXIMin 550 MG TABLET PO ×2 (09:27→20:43)
[2022-05-22] MEDS: Chlorhexidine Gluc Oral Rinse 15 ML MOUTHWASH BUCCAL ×3 (09:27→20:37)
[2022-05-22] MEDS: Carbidopa/Levodopa 25/100 TABLET 1 TAB PO ×4 (09:27→20:43)
[2022-05-22] MEDS: Albumin Human 25 % 100 ML IV ×3 (09:28→20:46)
--- NOTE | 2022-05-22 10:01 | P.PNCC_ITS ---
Subjective Subjective Date of Service: 05/22/22 Interval History: ICU day 4 for acute hypoxic respiratory failure, pulmonary aspiration of food, cardiac arrest, acute on chronic diastolic congestive heart failure, encephalopathy, acute on chronic renal failure. 61-year-old gentleman with underlying hepatic cirrhosis, schizophrenia, Parkinson, chronic subdural, diastolic heart failure admitted with acute on chronic diastolic heart failure exacerbation of significant fluid retention and treated with diuretic. Hospital course also significant for worsening confusion, poor p.o. intake, worsening hepatic encephalopathy, respiratory arrest on 05/19/2022 with a chunk of meat removed from hypopharynx on intubation during CPR, returned spontaneous circulation after 2 rounds of CPR, transferred to the intensive care unit. No events overnight. Poor arousal with sedation vacation. Critical Care Time (minutes): 45 Physical Exam Vital Signs: Vital Signs: Last Vital Signs Temp 99.0 F 05/22/22 09:00 Pulse 71 05/22/22 09:00 Resp 18 05/22/22 09:00 BP 157/48 H 05/22/22 09:00 Pulse Ox 94 05/22/22 09:00 O2 Del Method 05/22/22 09:00 O2 Flow Rate 40 05/21/22 09:00 FiO2 30 05/22/22 09:00 BMI result Body Mass Index 40.7 Const: General: no acute distress and other ( poor arousal with sedation vacation, anasarca) Eyes: Sclerae: sclerae normal EOM: EOMs intact bilaterally Neck: Neck: Yes no lymphadenopathy, Yes trachea midline and Yes supple Resp: Effort & Inspection: normal respiratory effort and no respiratory distress Auscultation: clear to auscultation bilaterally Cardio: Rate: regular rate Rhythm: regular rhythm Heart sounds: no gallops, no murmurs and no rubs GI: Palpation (GI): Soft to palpation and Other GI palpation findings present ( Nontender) Auscultation: normal bowel sounds Extrem: General: No clubbing and No cyanosis Objective Data Labs CBC & Chem 7: 05/22/22 05:10 05/22/22 05:10 Labs: Laboratory Results - last 24 hr 05/21/22 05/21/22 05/21/22 11:44 16:56 18:02 WBC RBC Hgb Hct MCV MCH MCHC RDW Plt Count MPV Immature Gran % (Auto) Neut % (Auto) Lymph % (Auto) [place] % (Auto) Eos % (Auto) Baso % (Auto) Lymph # (Auto) [place] # (Auto) Eos # (Auto) Baso # (Auto) Abs Immat Gran (auto) Absolute Neuts (auto) Absolute Nucleated RBC Nucleated RBC % (auto) VBG pH VBG pCO2 VBG pO2 VBG HCO3 VBG O2 Saturation VBG Base Excess Sodium Potassium Chloride Carbon Dioxide Anion Gap BUN Creatinine Estim Creat Clear Calc Estimated GFR POC Glucose 123 H 108 107 Random Glucose Calcium Phosphorus Magnesium Total Bilirubin AST ALT Alkaline Phosphatase Total Protein Albumin 05/22/22 05/22/22 05/22/22 00:15 05:10 05:10 WBC 4.1 L RBC 2.39 L Hgb 7.3 L Hct 21.9 L MCV 91.6 MCH 30.5 MCHC 33.3 RDW 18.2 H Plt Count 55 L MPV 10.5 Immature Gran % (Auto) 0.2 Neut % (Auto) 72.7 Lymph % (Auto) 12.8 L [place] % (Auto) 11.6 H Eos % (Auto) 2.5 Baso % (Auto) 0.2 Lymph # (Auto) 0.5 L [place] # (Auto) 0.5 Eos # (Auto) 0.1 Baso # (Auto) 0.0 Abs Immat Gran (auto) 0.01 Absolute Neuts (auto) 2.9 Absolute Nucleated RBC 0.000 Nucleated RBC % (auto) 0.0 VBG pH VBG pCO2 VBG pO2 VBG HCO3 VBG O2 Saturation VBG Base Excess Sodium 141 Potassium 3.6 Chloride 108 Carbon Dioxide 21 L Anion Gap 16 BUN 45 H Creatinine 2.95 H Estim Creat Clear Calc 34.5 Estimated GFR 22 POC Glucose 106 Random Glucose 106 Calcium 7.9 L Phosphorus 5.9 H Magnesium 2.2 Total Bilirubin 1.6 H AST 46 H D ALT 8 Alkaline Phosphatase 65 Total Protein 5.5 L Albumin 3.1 L 05/22/22 05/22/22 05:22 05:36 WBC RBC Hgb Hct MCV MCH MCHC RDW Plt Count MPV Immature Gran % (Auto) Neut % (Auto) Lymph % (Auto) [place] % (Auto) Eos % (Auto) Baso % (Auto) Lymph # (Auto) [place] # (Auto) Eos # (Auto) Baso # (Auto) Abs Immat Gran (auto) Absolute Neuts (auto) Absolute Nucleated RBC Nucleated RBC % (auto) VBG pH 7.43 VBG pCO2 30 VBG pO2 69 VBG HCO3 20 L VBG O2 Saturation 95.0 VBG Base Excess -3.2 Sodium Potassium Chloride Carbon Dioxide Anion Gap BUN Creatinine Estim Creat Clear Calc Estimated GFR POC Glucose 98 Random Glucose Calcium Phosphorus Magnesium Total Bilirubin AST ALT Alkaline Phosphatase Total Protein Albumin Microbiology Microbiology Results: Microbiology 05/20/22 00:48 Blood - Venous Blood Culture - Preliminary No growth after 48 hours. 05/20/22 00:48 Blood - Venous Blood Culture - Preliminary No growth after 48 hours. 05/17/22 17:00 Blood - Venous Blood Culture - Preliminary No growth after 48 hours. 05/17/22 16:10 Blood - Venous Blood Culture - Preliminary No growth after 48 hours. Progress Note: A&P Assessment and plan (1) Parkinson disease: Status: Acute (2) Toxic metabolic encephalopathy: Status: Acute (3) Type 2 diabetes mellitus with diabetic polyneuropathy: Status: Acute (4) Respiratory arrest associated with feeding: Status: Acute (5) Schizophrenia: Status: Acute (6) Cirrhosis: Status: Acute (7) Acute on chronic diastolic (congestive) heart failure: Status: Acute (8) Acute kidney injury superimposed on chronic kidney disease: Status: Acute Plan Assessment: 61-year-old gentleman with underlying cirrhosis with hepatic encephalopathy, parkinsonian disease with dementia, schizophrenia, admitted with acute on chronic exacerbation of underlying diastolic congestive heart failure further complicated by worsening hepatic encephalopathy with hospital course complicated by respiratory arrest with returned spontaneous circulation after 2 rounds of CPR, intubated during CPR. Plan: Neuro: Underlying schizophrenia, dementia, and hepatic encephalopathy. Continue with lactulose. Poor arousal with sedation vacation. Cardiac: Status post pulseless electrical activity cardiac arrest secondary to respiratory arrest with returned spontaneous circulation after to around of CPR. Continue to titrate of pressor support as tolerated. 2D echocardiogram With normal systolic function and diastolic dysfunction.. Underlying acute exacerbation of chronic diastolic congestive heart failure, resumed diuresis when blood pressure allows. Pulmonary: Acute hypoxic respiratory failure secondary to pulmonary aspiration of food resulting in respiratory arrest, intubated during CPR. Continue to titrate off ventilatory support as tolerated. Renal: Acute on chronic renal failure, Likely secondary to ATN, non oliguric. Continue to monitor renal indices and urine output. will consider restarting diuresis when phosphorous starts to downtrend, alternatively may require ultrafiltration. Endo: No acute issues. Underlying diabetes mellitus. GI: No acute issues. ID: No acute issues. Empirically covered for aspiration. Heme/Onc: No acute issues. Continue to monitor hemoglobin level. Psych: No acute issues. Miscellaneous: No acute issues. Prophylaxis: Heparin, ppi Diet: tube feeds Critical care time spent: 45 minutes Quality Stroke Does the patient have a stroke diagnosis?: No VTE Prior VTE?: No VTE Risk Level:: Medical - moderate - high VTE Device Contraindication: Treatment Not Indicated VTE Drug Contraindication: N/A - Med Ordered
[2022-05-22 12:13] LABS: Glucose, Whole Blood 125 mg/dL (60-115)
[2022-05-22] MEDS: propofoL 1,000 MG/100 ML VIAL 7.36 MG IVCONT (12:13)
--- NOTE | 2022-05-22 13:47 | PC.NURSE ---
Addendum entered by Ricki Auguste RN 05/22/22 19:03: Urine returned to normal color with no visible blood or tint. New rectal tube inserted at 1830 due to frequent leaking. Original Note: Blood noted in urine, MD notified, hold next dose of heparin Sedation vacation ended at 1215, propofol initiated at 10mL/hr per
[2022-05-22 18:12] LABS: Glucose, Whole Blood 130 mg/dL (60-115)
[2022-05-22] MEDS: propofoL 1,000 MG/100 ML VIAL 29.42 MG IVCONT (21:12)
[2022-05-23] VITALS (31 sets, daily range): BP systolic 117–168; BP diastolic 35–73; PULSE 54–94; RESP 6–25; TEMP 34.7–36.7; O2SAT 93–100; BMI 40.6
[2022-05-23 00:11] LABS: Glucose, Whole Blood 107 mg/dL (60-115)
[2022-05-23] MEDS: 0.9 % Sodium Chloride Flush 3 ML SYRINGE IVFLUSH ×4 (00:25→21:30)
[2022-05-23] MEDS: propofoL 1,000 MG/100 ML VIAL 29.42 MG IVCONT ×3 (00:41→05:49)
[2022-05-23] MEDS: DOPamine HCL/D5W 400 MG/250 ML PLAST..BAG 14.02 MG IVCONT (02:21)
[2022-05-23] MEDS: Ampicillin Sodium/Sulbactam Na 3 GM in 0.9 % Sodium Chloride 100 ML IV ×4 (02:27→21:29)
[2022-05-23] MEDS: Albumin Human 25 % 100 ML IV (02:29)
[2022-05-23 05:34] LABS: VBG Base Excess -1.6 mmol/L; VBG HCO3 22 mmol/L (22-26); VBG pCO2 34 mmHg; VBG pH 7.41 (7.32-7.43); VBG pO2 53 mmHg
[2022-05-23 05:39] LABS: MANUAL DIFF FLAG NO
[2022-05-23 05:42] LABS: Basophils Percent Auto 0.3 % (0-2); Eosinophils Absolute Auto 0.2 X10*3/uL (0.0-0.4); Eosinophils Percent Auto 4.3 % (0-4); Hematocrit 23.2 % (42.0-52.0); Hemoglobin 7.8 g/dl (14.0-18.0); Imm Gran Abs Auto 0.02 X10*3/uL (0.00-0.03); Imm Gran Pct Auto 0.5 % (0.0-0.4); Lymphocytes Absolute Auto 0.5 X10*3/uL (1.2-4.9); Lymphocytes Percent Auto 14.6 % (20-40); Mean Corpuscular HGB Conc 33.6 g/dl (31.0-36.0); Mean Corpuscular Hemoglobin 31.2 pg (27.0-33.0); Mean Corpuscular Volume 92.8 fL (80.0-98.0); Mean Platelet Volume 10.4 fL (9.4-12.4); Monocytes Absolute Auto 0.4 X10*3/uL (0.1-1.2); Monocytes Percent Auto 11.1 % (2-11); Neutrophils Absolute Auto 2.6 x10*3/uL (2.0-8.3); Neutrophils Percent Auto 69.2 % (45-73); Red Cell Distribution Width 18.3 % (11.0-16.0); White Blood Count 3.7 X10*3/uL (4.8-10.8)
[2022-05-23 05:43] LABS: Platelet Count 55 X10*3/uL (160-400)
[2022-05-23] MEDS: Heparin Sodium,Porcine 5,000 UNIT/ML VIAL 5000 UNIT SUBCUT (05:46)
[2022-05-23] MEDS: Levothyroxine Sodium 25 MCG TABLET PO (05:46)
[2022-05-23] MEDS: Pantoprazole Sodium 40 MG/10 ML VIAL IVPUSH (05:46)
[2022-05-23 05:53] LABS: Ammonia 25 umol/L (13-55)
[2022-05-23 06:03] LABS: Alanine Aminotransferase 6 U/L (0-40); Albumin Level 3.9 g/dL (3.5-5.0); Alkaline Phosphatase 61 U/L (39-117); Anion Gap 18 (12-20); Aspartate Amino Transferase 54 U/L (5-37); Bilirubin Total 1.6 mg/dL (0.0-1.0); Blood Urea Nitrogen 50 mg/dL (9-16); Calcium 8.6 mg/dL (8.4-10.2); Carbon Dioxide 21 mmol/L (22-29); Chloride 107 mmol/L (96-108); Creatinine Clr Calc Pharmacy 32.7; Estimated Glomerular Filt Rate 20; Glucose Random 124 mg/dL (60-115); Magnesium 2.2 mg/dL (1.6-2.6); Phosphorus 5.4 mg/dL (2.7-4.5); Potassium 3.2 mmol/L (3.3-5.1); Sodium 143 mmol/L (135-145); Total Protein 6.4 g/dL (6.5-8.0)
[2022-05-23 06:06] LABS: Glucose, Whole Blood 115 mg/dL (60-115)
[2022-05-23] MEDS: Chlorhexidine Gluc Oral Rinse 15 ML MOUTHWASH BUCCAL ×3 (08:36→21:29)
[2022-05-23] MEDS: rifAXIMin 550 MG TABLET PO ×2 (08:37→21:29)
[2022-05-23] MEDS: Carbidopa/Levodopa 25/100 TABLET 1 TAB PO ×4 (08:37→21:29)
[2022-05-23] MEDS: propofoL 1,000 MG/100 ML VIAL 22.07 MG IVCONT (09:13)
[2022-05-23 09:46] LABS: Venous Blood Gas Refer to POC result
--- NOTE | 2022-05-23 09:49 | MHC.CLN ---
F/U PT IS CURRENTLY INTUBATED AND SEDATED RECOMMEND PROMOTE AT MAX GAOL RATE 65ML/HR TO PROVIDE 1560KCALS (2240KCALS WITH SEDATION; 24KCALS/KG), 97.5G PROTEIN (1.03G/KG), 1309ML TOTAL WATER FROM FORMULA START FORMULA AT 20ML/HR AND INCREASE BY 10ML Q 4 HRS UNTIL MAX GOAL IS REACHED MONITOR TOLERANCE, RESIDUALS AND LYTES
--- NOTE | 2022-05-23 10:02 | P.PNCC_ITS ---
Subjective Subjective Date of Service: 05/23/22 Interval History: Mr. Blackburn was transferred to the ICU on May 19 after a code blue on the floor. The patient is a 61-year-old gentleman with underlying history of alcoholic cirrhosis, dementia, ataxia, Parkinson?s disease, schizophrenia, and diastolic heart failure.? He is a resident of [facility].? He takes lactulose and rifaximin at the home.? According to the staff at [facility], up until February of this year, he was reasonably high functioning, talked to people, got around mostly in a whee lchair, but could walk to the bathroom himself, transfers chair to bed by himself. In February, he was hospitalized at [facility] for hepatic encephalopathy and ERNST.? He required a 10 day stay in the ICU for refractory encephalopathy, but improved enough without requiring intubation.? He was discharged on March 15 with a creat of 2.2 (baseline was normal prior to that hospitalization).? For undetermined reasons (mult head CTs and MRI unrevealing; EEG showed generalized slowing), his mental status never returned to baseline, even though his ammonia level normalized.? According to Dr. Moon (who knows him well), after he got back to [facility], his level of animation was about half of what it was previously, and he was not walking at all.? It had been my opinion at that February hospitalization that if he wound up intubated, he?d probably wind up with a tracheostomy and PEG.? Mr. Blackburn was hospitalized again March 20- for worsened encephalopathy, manifest as agitation and behavioral disturbances.? Was thought secondary to general deconditioning and advanced Parkinsonism, dementia, and schizophrenia.? Treated by decreasing the dose of gabapentin and holding loratadine and tramadol.? Required multiple doses of Haldol and Ativan to control his agitation.? Psychiatry recommended Seroquel and Ativan as needed.? His mental status improved back to what seemed to be his baseline, alert and interactive but overall disoriented. The patient was brought back on May 17 with CHF, leg edema, and weight gain.? BNP was 1919.? BUN/creatinine were 35/2.5.? Ammonia level was 26.? He was admitted to Medicine and diuresed.? During hospitalization, the patient became increasingly confused.? Was seen by Psychiatry on May 19.? Reportedly, at [facility] the patient had been on ziprasidone and fluphenazine, along with Geodon, for psychotic symptoms.? They recommended restarting the Geodon, and adding prn Seroquel and Ativan.? That night, the patient had a PEA Code Blue, thought secondary to vomiting and aspiration, with a chunk of meat removed from the hypopharynx on intubation.? Has ROSC after 2 min CPR, with one dose epi.? He was transferred to the ICU and put on Unasyn, altho his CXR showed no clear infiltrate. ECHOCARDIOGRAM on May 20 was notable for mildly increased left ventricular wall thickness with hyperdynamic LV function, EF greater than 70%.? There was diastolic dysfunction with elevated filling pressures.? RV cavity size was mildly increased, with normal RVSP.? The IVC was dilated with no inspiratory collapse.? (In contrast, the echo from February showed normal RV size with mildly dilated IVC and less than 50% inspiratory collapse.) Over last three days, we?ve been waiting for return of consciousness.? Yesterday he?d been agitated, so he was started on propofol.? Today, 4 hours after stopping the propofol, he opens his eyes to vigorous stimulation but is 100% noninteractive.? No tracking, no response to confrontation.? He moves all 4 spontaneously.? HR 66, SR.? BP 153/66 on no pressors.? On PSV 5/40%/+5, RR is 19, Vt 640cc, Ve 12L, PIP 11cm, ETCO2 27mm, Sat 95%.? CVBG this morning 7.41/34/-1.? Afebrile.? PERR, about 5mm.? No JVD at 30?. ?Chest CTA with mild exp wheeze, w normal exp phase.? Regular rate and rhythm, normal-sounding S1 and S2, with no murmur or gallops.? The abdomen is benign.? He has 3-4 + pitting edema, with massive scrotal edema.? Urine is mildly blood tinged, so heparin DVT proph was LABORATORY DATA: As below.? Notably, white count is down to 3.7.? Hb is 7.8 after 3 units RBC on May 20 & .? Platelet count is steady at 55 K. BUN/creatinine 50/3.1 (45/2.9 yesterday), with bicarb 21, potassium 3.2, phosphorus down to 5.4.? T bili steady at 1.6, AST steady 54, ammonia 25. IMAGING: Chest x-ray today shows bilateral infiltrates could be CHF or ARDS. IMPRESSION: 1. Underlying Parkinson?s dz, on Sinemet. 2. Underlying schizophrenia. 3. Underlying dementia. 4. Underlying alcoholic cirrhosis. 5. Underlying hepatic encephalopathy.? Continue the rifaximin.? Restart the lactulose when his ammonia level rises. 6. Admitted with AMS.? His baseline mental status was severely deteriorated since his hospitalization in February.? Very suggestive that either his dementia and or his Parkinson's and or schizophrenia are getting worse.? At this point, we should just continue his Sinemet, hold his other [employer] SU[employer] CABLE meds. 7. ?Status post cardiac arrest.? Was brief enough to possibly not have suffered any additional cerebral insult.? Now hemodynamically stable. 8. Presumed aspiration pneumonia.? Had four days of Unasyn.? I?m not sure he needed that.? We?ll check a sputum gram stain. 9. Coma.? Likely anoxic encephalopathy, post cardiac arrest.? He?s moving all four, so no acute reason to do a CT at this moment.? If he?s not interactive by tomorrow, we?ll schedule him for tracheostomy and PEG. 10. Hypoxemic resp failure.? Has bilateral pulmonary infiltrates, most likely C HF rather than ARDS, given his pulmonary mechanics and mild hypoxemia.? Trying to diurese. 9. ERNST.? BUN/creat slowly rising.? I?ll try high-dose diuresis, with Diuril if necessary.? Most likely has cardiorenal syndrome. 10. Diastolic heart failure and right heart failure.? Needs diuresis. 11. Massive anasarca.? 2? above factors.? Will be difficult to diurese. 12. DM.? On SS insulin. 13. Anemia -- acute on chronic.? Need to check another hemoccult (was negative in February).? Undoubtedly has ACD. 14. Leukopenia.? Chronic. 15. Thrombocytopenia.? Chronic.? May be related to his liver disease. 16. Hypokalemia.? Replete orally. 17. Nutrition.? Started on Promote. 18. Code status.? Discussed with Dr. Moon at some length this morning.? In our opinion, Adilson's quality of life, such as it was, is pretty much over, unless his mental status makes him regular is recovery.? Over the next few days, his prognosis will likely become clear.? At that time it may be appropriate to discuss DNR status, maybe even BURR FILER status with the patient's guardian.? As noted above, it?s almost a certainty that he will wind up with a tracheostomy and PEG, unless he is changed to BURR FILER status. Critical care time (including hospital chart review and hospital course summary, along with extensive discussions with Dr. Alba and case management):? 2.5+ hours. Critical Care Time (minutes): 150 Physical Exam Vital Signs: Vital Signs: Last Vital Signs Temp 97.9 F 05/23/22 09:00 Pulse 87 05/23/22 09:00 Resp 19 05/23/22 09:00 BP 163/62 H 05/23/22 09:00 Pulse Ox 95 05/23/22 09:00 O2 Del Method 05/23/22 09:00 O2 Flow Rate 40 05/21/22 09:00 FiO2 30 05/23/22 09:00 BMI result Body Mass Index 40.6 Objective Data Labs CBC & Chem 7: 05/23/22 05:25 05/23/22 05:25 Labs: Laboratory Results - last 24 hr 05/22/22 05/22/22 05/23/22 12:06 18:03 00:07 WBC RBC Hgb Hct MCV MCH MCHC RDW Plt Count MPV Immature Gran % (Auto) Neut % (Auto) Lymph % (Auto) Nicollet % (Auto) Eos % (Auto) Baso % (Auto) Lymph # (Auto) Nicollet # (Auto) Eos # (Auto) Baso # (Auto) Abs Immat Gran (auto) Absolute Neuts (auto) Absolute Nucleated RBC Nucleated RBC % (auto) VBG pH VBG pCO2 VBG pO2 VBG HCO3 VBG O2 Saturation VBG Base Excess Sodium Potassium Chloride Carbon Dioxide Anion Gap BUN Creatinine Estim Creat Clear Calc Estimated GFR POC Glucose 125 H 130 H 107 Random Glucose Calcium Phosphorus Magnesium Total Bilirubin AST ALT Alkaline Phosphatase Ammonia Total Protein Albumin 05/23/22 05/23/22 05/23/22 05:25 05:25 05:25 WBC 3.7 L RBC 2.50 L Hgb 7.8 L Hct 23.2 L MCV 92.8 MCH 31.2 MCHC 33.6 RDW 18.3 H Plt Count 55 L MPV 10.4 Immature Gran % (Auto) 0.5 H Neut % (Auto) 69.2 Lymph % (Auto) 14.6 L Nicollet % (Auto) 11.1 H Eos % (Auto) 4.3 H Baso % (Auto) 0.3 Lymph # (Auto) 0.5 L Nicollet # (Auto) 0.4 Eos # (Auto) 0.2 Baso # (Auto) 0.0 Abs Immat Gran (auto) 0.02 Absolute Neuts (auto) 2.6 Absolute Nucleated RBC 0.000 Nucleated RBC % (auto) 0.0 VBG pH VBG pCO2 VBG pO2 VBG HCO3 VBG O2 Saturation VBG Base Excess Sodium 143 Potassium 3.2 L Chloride 107 Carbon Dioxide 21 L Anion Gap 18 BUN 50 H Creatinine 3.11 H Estim Creat Clear Calc 32.7 Estimated GFR 20 POC Glucose Random Glucose 124 H Calcium 8.6 D Phosphorus 5.4 H Magnesium 2.2 Total Bilirubin 1.6 H AST 54 H ALT 6 Alkaline Phosphatase 61 Ammonia 25 Total Protein 6.4 L Albumin 3.9 D 05/23/22 05/23/22 05:29 06:02 WBC RBC Hgb Hct MCV MCH MCHC RDW Plt Count MPV Immature Gran % (Auto) Neut % (Auto) Lymph % (Auto) Nicollet % (Auto) Eos % (Auto) Baso % (Auto) Lymph # (Auto) Nicollet # (Auto) Eos # (Auto) Baso # (Auto) Abs Immat Gran (auto) Absolute Neuts (auto) Absolute Nucleated RBC Nucleated RBC % (auto) VBG pH 7.41 VBG pCO2 34 VBG pO2 53 VBG HCO3 22 VBG O2 Saturation 81.0 VBG Base Excess -1.6 Sodium Potassium Chloride Carbon Dioxide Anion Gap BUN Creatinine Estim Creat Clear Calc Estimated GFR POC Glucose 115 Random Glucose Calcium Phosphorus Magnesium Total Bilirubin AST ALT Alkaline Phosphatase Ammonia Total Protein Albumin Microbiology Microbiology Results: Microbiology 05/17/22 17:00 Blood - Venous Blood Culture - Final No growth after 5 days. 05/17/22 16:10 Blood - Venous Blood Culture - Final No growth after 5 days. 05/20/22 00:48 Blood - Venous Blood Culture - Preliminary No growth after 48 hours. 05/20/22 00:48 Blood - Venous Blood Culture - Preliminary No growth after 48 hours. Quality Stroke Does the patient have a stroke diagnosis?: No VTE Prior VTE?: No VTE Risk Level:: Medical - moderate - high VTE Device Contraindication: Treatment Not Indicated VTE Drug Contraindication: N/A - Med Ordered Critical Care Time Critical Care Time (minutes): 150
[2022-05-23] MEDS: fentaNYL citrate/NS 1,000 MCG/100 ML PLAST..BAG 2.5 MCG IVCONT (10:19)
[2022-05-23 14:00] LABS: Glucose, Whole Blood 117 mg/dL (60-115)
--- NOTE | 2022-05-23 14:27 | MHC.CM.PN ---
Pt continues in ICU on ventilatory support and not making significant progress. Per discussion at rounds, pts condition is poor: he is not responding to baseline neuro status, has impaired renal fx with severe anasarca and may not be able to wean off vent thus requiring a peg/trach. Pt is a LTC resident of [facility] in [place] and has a legal guardian in [place]. Call placed to Melania Pruitt, pt's guardian to give a clinical update. Requested call back. Spoke with SW at [facility] to give a clinical update - discussed possible need for pt's code status to be changed to DNR which would need to occur through the court. Will await callback from Ms. Pruitt and plan for continued care by .
[2022-05-23] MEDS: Bumetanide 1 MG/4 ML VIAL 2 MG IVPUSH (14:28)
[2022-05-23 15:06] LABS: OBS Int Ctl Valid YES; OBS1 NEGATIVE (NEGATIVE)
[2022-05-23] MEDS: Furosemide 200 MG in 0.9 % Sodium Chloride 80 ML IVCONT (15:13)
[2022-05-23] MEDS: Albuterol/Iprat 2.5/0.5MG 3 ML AMPUL.NEB INHALE ×2 (16:44→19:25)
[2022-05-23 17:30] LABS: Glucose, Whole Blood 114 mg/dL (60-115)
[2022-05-23] MEDS: propofoL 1,000 MG/100 ML VIAL 7.36 MG IVCONT (17:56)
[2022-05-23] MEDS: Potassium Chloride Packet 20 MEQ PACKET 40 MEQ G-TUBE (21:29)
[2022-05-24] VITALS (37 sets, daily range): BP systolic 141–175; BP diastolic 6–66; PULSE 74–87; RESP 10–19; TEMP 34.6–37.8; O2SAT 91–97
[2022-05-24] MEDS: Albuterol/Iprat 2.5/0.5MG 3 ML AMPUL.NEB INHALE ×6 (00:31→19:52)
[2022-05-24 00:41] LABS: Glucose, Whole Blood 111 mg/dL (60-115)
[2022-05-24] MEDS: propofoL 1,000 MG/100 ML VIAL 14.71 MG IVCONT (01:00)
[2022-05-24] MEDS: Ampicillin Sodium/Sulbactam Na 3 GM in 0.9 % Sodium Chloride 100 ML IV ×4 (04:30→21:09)
[2022-05-24] MEDS: Heparin Sodium,Porcine 5,000 UNIT/ML VIAL 5000 UNIT SUBCUT ×2 (05:39→13:24)
[2022-05-24] MEDS: Levothyroxine Sodium 25 MCG TABLET PO (05:39)
[2022-05-24 05:40] LABS: Glucose, Whole Blood 144 mg/dL (60-115)
[2022-05-24 05:42] LABS: VBG Base Excess -3.9 mmol/L; VBG HCO3 20 mmol/L (22-26); VBG pCO2 34 mmHg; VBG pH 7.38 (7.32-7.43); VBG pO2 58 mmHg
[2022-05-24 05:43] LABS: Venous Blood Gas Refer to POC result
[2022-05-24 05:45] LABS: Mean Corpuscular HGB Conc 33.3 g/dl (31.0-36.0); Mean Corpuscular Hemoglobin 31.4 pg (27.0-33.0); Mean Corpuscular Volume 94.2 fL (80.0-98.0); Mean Platelet Volume 10.5 fL (9.4-12.4); Red Blood Count 2.23 X10*6/uL (4.60-5.80); Red Cell Distribution Width 18.5 % (11.0-16.0); White Blood Count 3.2 X10*3/uL (4.8-10.8)
[2022-05-24 05:46] LABS: Platelet Count 45 X10*3/uL (160-400)
[2022-05-24 05:51] LABS: INTERNATIONAL NORM RATIO 1.4 (0.9-1.1); Prothrombin Time 15.8 SEC (10.0-13.1)
[2022-05-24 06:06] LABS: Anion Gap 17 (12-20); Blood Urea Nitrogen 49 mg/dL (9-16); Calcium 8.1 mg/dL (8.4-10.2); Carbon Dioxide 20 mmol/L (22-29); Chloride 109 mmol/L (96-108); Estimated Glomerular Filt Rate 21; Glucose Random 160 mg/dL (60-115); Magnesium 2.1 mg/dL (1.6-2.6); Phosphorus 5.6 mg/dL (2.7-4.5); Potassium 3.5 mmol/L (3.3-5.1); Sodium 142 mmol/L (135-145)
[2022-05-24 06:09] LABS: B Type Natriuretic Peptide 1882 pg/mL (<100)
[2022-05-24] MEDS: 0.9 % Sodium Chloride Flush 3 ML SYRINGE IVFLUSH ×3 (07:26→23:53)
[2022-05-24] MEDS: Chlorhexidine Gluc Oral Rinse 15 ML MOUTHWASH BUCCAL ×3 (10:34→21:09)
[2022-05-24] MEDS: Chlorothiazide Sodium 500 MG VIAL IVPUSH (10:34)
[2022-05-24] MEDS: rifAXIMin 550 MG TABLET PO ×2 (10:36→21:09)
[2022-05-24] MEDS: Carbidopa/Levodopa 25/100 TABLET 1 TAB PO ×4 (10:36→21:09)
[2022-05-24] MEDS: Furosemide 500 MG in Container,Empty 0 ML IVCONT ×2 (10:56→23:55)
[2022-05-24 11:16] LABS: Glucose, Whole Blood 177 mg/dL (60-115)
[2022-05-24] MEDS: Insulin Lispro 100 UNIT/ML 3 ML VIAL SUBCUT ×2 (11:23→18:20)
[2022-05-24 13:00] LABS: Hematocrit 24.2 % (42.0-52.0); Hemoglobin 7.9 g/dl (14.0-18.0)
[2022-05-24 18:08] LABS: Glucose, Whole Blood 190 mg/dL (60-115)
--- NOTE | 2022-05-24 20:03 | PM.CCPN ---
Subjective Subjective Date of Service: 05/24/22 Interval History: Mr. Blackburn was transferred to the ICU on May 19 after a code blue on the floor. The patient is a 61-year-old gentleman with underlying history of alcoholic cirrhosis, dementia, ataxia, Parkinson?s disease, schizophrenia, and diastolic heart failure.? He is a resident of [facility].? He takes lactulose and rifaximin at the home.? According to the staff at [facility], up until February of this year, he was reasonably high functioning, talked to people, got around mostly in a wheelchair, but could walk to the bathroom himself, transfers chair to bed by himself. In February, he was hospitalized at [facility] for hepatic encephalopathy and ERNST.? He required a 10 day stay in the ICU for refractory encephalopathy, but improved enough without requiring intubation.? He was discharged on March 15 with a creat of 2.2 (baseline was normal prior to that hospitalization).? For undetermined reasons (mult head CTs and MRI unrevealing; EEG showed generalized slowing), his mental status never returned to baseline, even though his ammonia level normalized.? According to Dr. Moon (who knows him well), after he got back to [facility], his level of animation was about half of what it was previously, and he was not walking at all.? It had been my opinion at that February hospitalization that if he wound up intubated, he?d probably wind up with a tracheostomy and PEG.? Mr. Blackburn was hospitalized again March 20- for worsened encephalopathy, manifest as agitation and behavioral disturbances.? Was thought secondary to general deconditioning and advanced Parkinsonism, dementia, and schizophrenia.? Treated by decreasing the dose of gabapentin and holding loratadine and tramadol.? Required multiple doses of Haldol and Ativan to control his agitation.? Psychiatry recommended Seroquel and Ativan as needed.? His mental status improved back to what seemed to be his baseline, alert and interactive but overall disoriented. HISTORY OF PRESENT ILLNESS: ?The patient was brought back on May 17 with CHF, leg edema, and weight gain.? BNP was 1919.? BUN/creatinine were 35/2.5.? Ammonia level was 26.? He was admitted to Medicine and diuresed.? During hospitalization, the patient became increasingly confused.? Was seen by Psychiatry on May 19.? Reportedly, at [facility] the patient had been on ziprasidone and fluphenazine, along with Geodon, for psychotic symptoms.? They recommended restarting the Geodon, and adding prn Seroquel and Ativan. That night, the patient had a PEA Code Blue, thought secondary to vomiting and aspiration, with a chunk of meat removed from the hypopharynx on intubation.? Has ROSC after 2 min CPR, with one dose epi.? He was transferred to the ICU and put on Unasyn, altho his CXR showed no clear infiltrate. ECHOCARDIOGRAM on May 20 was notable for mildly increased left ventricular wall thickness with hyperdynamic LV function, EF greater than 70%.? There was diastolic dysfunction with elevated filling pressures.? RV cavity size was mildly increased, with normal RVSP.? The IVC was dilated with no inspiratory collapse.? (In contrast, the echo from February showed normal RV size with mildly dilated IVC and less than 50% inspiratory collapse.) Over last three days, we?ve been waiting for return of consciousness.? He had some propofol both yesterday and the day before to control agitation.? Today, the Yesterday he?d been agitated, so he was started on propofol.? Today, he?s been off propofol for 11 hours.? With vigorous stimulation, I was able to get him to open his eyes and actually nod his head yes to a question for me.? But not consistently.? He moves all 4 spontaneously.? HR 84, SR.? BP 175/59.? On PSV 5/25%/+5, RR is 17, Vt 550cc, Ve 9.2L, PIP 11cm, ETCO2 33mm, Sat 95%.? CVBG this morning 7.38/34/-3.? Afebrile.? PERR, about 5mm.? No JVD at 30?.? Chest CTA, w normal exp phase.? Regular rate and rhythm, normal-sounding S1 and S2, with no murmur or gallops.? The abdomen is benign.? He has 3+ pitting edema, maybe sl less than yesterday, with massive scrotal edema.? Urine is very slightly blood tinged.? He?s on Heparin 5000u tid. LABORATORY DATA: As below.? Notably, white count is down to 3.2.? Hb is 7.0 after 3 units RBC on May 20 & .? He was given one unit RBC this morning.? Platelet count is down to 45K. ?PT is 15.8/1.4. ?BUN/creatinine down very sl to 49.2.9 (was 50/3.1 yesterday), with bicarb 20, potassium 3.5, phosphorus steady at 5.6.? BNP slightly up to 1882. MICROBIOLOGY:? Sputum Gram stain from 05/23 shows 4+ polys, 1+ yeast. ?Culture is growing 1+ GNR, and 1+ yeast. IMAGING: Chest x-ray yesterday showed bilateral infiltrates could be CHF or ARDS. IMPRESSION: 1. Underlying Parkinson?s dz, on Sinemet. 2. Underlying schizophrenia. 3. Underlying dementia. 4. Underlying alcoholic cirrhosis. 5. Underlying hepatic encephalopathy.? Continuing the rifaximin.? Restart the lactulose when his ammonia level rises.? Check ammonia level QOD. 6. Admitted with AMS.? His baseline mental status was severely deteriorated since his hospitalization in February.? Very suggestive that either his dementia and/or his Parkinson's and/or schizophrenia are getting worse.? 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 7.? Status post cardiac arrest.? Was brief enough to possibly not have suffered any additional cerebral insult.? Now hemodynamically stable. 8. Presumed aspiration pneumonia.? Had four days of Unasyn.? I?m not sure he needed that.? The sputm gram stain and cx are unremarkable.? D/c?d the Unasyn today after 5 days. 9. Encephalopathy.? May have had an element of anoxic encephalopathy, but he definitely responded to my command today.? So his MS is getting close to the same ballpark as it was last time he was in the ICU in February.? At this point, I would hold on tracheostomy and PEG.? We?ll see how he does day by day. 10. Hypoxemic resp failure.? With his current A-a gradient, his bilateral pulmonary infiltrates are inconsistent with a bacterial, or any infectious pneumonia.? Most likely CHF.? Vigorously diuresing him now. 9. ERNST.? BUN/creat may have crested.? The fact that his renal indices are not worsening and may be slowly improving on diuresis is heartening and tells us we?re doing the right thing. 10. Diastolic heart failure and right heart failure.? Needs diuresis. 11. Massive anasarca.? 2? above factors.? Added diuril today and increased his Lasix to 20mg/hr. 12. DM.? On SS insulin. 13. Anemia -- acute on chronic.? F/u hemoccult was negative again yesterday.? Undoubtedly has ACD. 14. Leukopenia.? Chronic. 15. Thrombocytopenia.? Chronic.? May be related to his liver disease. 16. Hypokalemia.? Replete enterally. 17. Mild coagulopathy.? 2? liver disease.? Vit K 10mg q6h x 50 mg total. 18. Nutrition.? On Promote. 19.. Code status.? Discussed with Dr. Moon at some length yesterday.? In our opinion, Adilson's quality of life, such as it was, is pretty much over, unless his mental status makes a significant recovery.? Over the next few days, his prognosis will likely become clear.? At that time it may be appropriate to discuss DNR status, maybe even LUGGAGE MAKER status with the patient's guardian. Critical care time (including multiple visits to the bedside to reassess mental status): ?60 min. Critical Care Time (minutes): 60 Physical Exam Vital Signs: Vital Signs: Last Vital Signs Temp 98.5 F 05/24/22 16:00 Pulse 80 05/24/22 19:00 Resp 16 05/24/22 19:00 BP 163/56 H 05/24/22 19:00 Pulse Ox 93 05/24/22 19:00 O2 Del Method 05/24/22 19:00 O2 Flow Rate 40 05/21/22 09:00 FiO2 25 05/24/22 19:52 BMI result Body Mass Index 40.6 Objective Data Labs CBC & Chem 7: 05/24/22 12:53 05/24/22 05:30 Labs: Laboratory Results - last 24 hr 05/24/22 05/24/22 05/24/22 00:34 05:30 05:30 WBC 3.2 L RBC 2.23 L Hgb 7.0 L* Hct 21.0 L* MCV 94.2 MCH 31.4 MCHC 33.3 RDW 18.5 H Plt Count 45 L MPV 10.5 Absolute Nucleated RBC 0.000 Nucleated RBC % (auto) 0.0 PT 15.8 H INR 1.4 H VBG pH VBG pCO2 VBG pO2 VBG HCO3 VBG O2 Saturation VBG Base Excess Sodium Potassium Chloride Carbon Dioxide Anion Gap BUN Creatinine Estim Creat Clear Calc Estimated GFR POC Glucose 111 Random Glucose Calcium Phosphorus Magnesium B-Natriuretic Peptide Blood Type Antibody Screen Crossmatch 05/24/22 05/24/22 05/24/22 05:30 05:30 05:37 WBC RBC Hgb Hct MCV MCH MCHC RDW Plt Count MPV Absolute Nucleated RBC Nucleated RBC % (auto) PT INR VBG pH VBG pCO2 VBG pO2 VBG HCO3 VBG O2 Saturation VBG Base Excess Sodium 142 Potassium 3.5 Chloride 109 H Carbon Dioxide 20 L Anion Gap 17 BUN 49 H Creatinine 2.99 H Estim Creat Clear Calc 34.0 Estimated GFR 21 POC Glucose 144 H Random Glucose 160 H Calcium 8.1 L Phosphorus 5.6 H Magnesium 2.1 B-Natriuretic Peptide 1882 H Blood Type Antibody Screen Crossmatch 05/24/22 05/24/22 05/24/22 05:39 06:11 11:12 WBC RBC Hgb Hct MCV MCH MCHC RDW Plt Count MPV Absolute Nucleated RBC Nucleated RBC % (auto) PT INR VBG pH 7.38 VBG pCO2 34 VBG pO2 58 VBG HCO3 20 L VBG O2 Saturation 88.0 VBG Base Excess -3.9 Sodium Potassium Chloride Carbon Dioxide Anion Gap BUN Creatinine Estim Creat Clear Calc Estimated GFR POC Glucose 177 H Random Glucose Calcium Phosphorus Magnesium B-Natriuretic Peptide Blood Type A Positive Antibody Screen NEGATIVE Crossmatch See Detail 05/24/22 05/24/22 12:53 18:02 WBC RBC Hgb 7.9 L Hct 24.2 L MCV MCH MCHC RDW Plt Count MPV Absolute Nucleated RBC Nucleated RBC % (auto) PT INR VBG pH VBG pCO2 VBG pO2 VBG HCO3 VBG O2 Saturation VBG Base Excess Sodium Potassium Chloride Carbon Dioxide Anion Gap BUN Creatinine Estim Creat Clear Calc Estimated GFR POC Glucose 190 H Random Glucose Calcium Phosphorus Magnesium B-Natriuretic Peptide Blood Type Antibody Screen Crossmatch Microbiology Microbiology Results: Microbiology 05/23/22 14:47 Sputum - Suctioned Gram Stain - Final 05/23/22 14:47 Sputum - Suctioned Sputum Culture - Preliminary Gram negative omega Yeast 05/17/22 17:00 Blood - Venous Blood Culture - Final No growth after 5 days. 05/17/22 16:10 Blood - Venous Blood Culture - Final No growth after 5 days. 05/20/22 00:48 Blood - Venous Blood Culture - Preliminary No growth after 48 hours. 05/20/22 00:48 Blood - Venous Blood Culture - Preliminary No growth after 48 hours. Quality Stroke Does the patient have a stroke diagnosis?: No VTE Prior VTE?: No VTE Risk Level:: Medical - moderate - high VTE Device Contraindication: Treatment Not Indicated VTE Drug Contraindication: N/A - Med Ordered Critical Care Time Critical Care Time (minutes): 60
[2022-05-24] MEDS: Phytonadione (Vit K1) 10 MG in 0.9 % Sodium Chloride 50 ML 51 MG IV (21:05)
[2022-05-24] MEDS: Potassium Chloride Packet 20 MEQ PACKET 40 MEQ G-TUBE (21:09)
[2022-05-24] MEDS: fentaNYL citrate/PF 100 MCG/2 ML VIAL IVPUSH (22:48)
[2022-05-24 23:37] LABS: Glucose, Whole Blood 184 mg/dL (60-115)
[2022-05-25] VITALS (31 sets, daily range): BP systolic 144–183; BP diastolic 51–69; PULSE 63–92; RESP 12–24; TEMP 34.5–37.8; O2SAT 91–94; BMI 39.2
[2022-05-25] MEDS: Insulin Lispro 100 UNIT/ML 3 ML VIAL SUBCUT ×4 (00:18→17:46)
[2022-05-25] MEDS: Potassium Chloride Packet 20 MEQ PACKET 40 MEQ G-TUBE ×3 (00:19→14:56)
[2022-05-25] MEDS: fentaNYL citrate/PF 100 MCG/2 ML VIAL IVPUSH (00:31)
[2022-05-25] MEDS: Albuterol/Iprat 2.5/0.5MG 3 ML AMPUL.NEB INHALE ×7 (00:42→23:23)
[2022-05-25] MEDS: hydrALAZINE HCl 20 MG/ML VIAL 5 MG IVPUSH (01:54)
[2022-05-25] MEDS: Phytonadione (Vit K1) 10 MG in 0.9 % Sodium Chloride 50 ML 51 MG IV ×4 (04:55→22:19)
[2022-05-25 05:20] LABS: VBG Base Excess 2.6 mmol/L; VBG HCO3 26 mmol/L (22-26); VBG pCO2 35 mmHg; VBG pH 7.47 (7.32-7.43); VBG pO2 55 mmHg
[2022-05-25] MEDS: Levothyroxine Sodium 25 MCG TABLET PO (05:25)
[2022-05-25 05:52] LABS: Hematocrit 23.6 % (42.0-52.0); Hemoglobin 7.9 g/dl (14.0-18.0); Mean Corpuscular HGB Conc 33.5 g/dl (31.0-36.0); Mean Corpuscular Hemoglobin 31.1 pg (27.0-33.0); Mean Corpuscular Volume 92.9 fL (80.0-98.0); Mean Platelet Volume 10.7 fL (9.4-12.4); Red Blood Count 2.54 X10*6/uL (4.60-5.80); Red Cell Distribution Width 18.2 % (11.0-16.0); White Blood Count 4.2 X10*3/uL (4.8-10.8)
[2022-05-25 05:52] LABS: Glucose, Whole Blood 197 mg/dL (60-115)
[2022-05-25 05:55] LABS: Platelet Count 51 X10*3/uL (160-400)
[2022-05-25 06:00] LABS: Ammonia 31 umol/L (13-55)
[2022-05-25 06:15] LABS: Venous Blood Gas Refer to POC result
[2022-05-25 06:17] LABS: Alanine Aminotransferase < 6 U/L (0-40); Albumin Level 3.2 g/dL (3.5-5.0); Alkaline Phosphatase 59 U/L (39-117); Anion Gap 15 (12-20); Aspartate Amino Transferase 57 U/L (5-37); Bilirubin Total 1.7 mg/dL (0.0-1.0); Blood Urea Nitrogen 51 mg/dL (9-16); Calcium 8.3 mg/dL (8.4-10.2); Carbon Dioxide 25 mmol/L (22-29); Chloride 109 mmol/L (96-108); Creatinine Clr Calc Pharmacy 34.3; Estimated Glomerular Filt Rate 22; Glucose Random 218 mg/dL (60-115); Magnesium 2.1 mg/dL (1.6-2.6); Phosphorus 4.1 mg/dL (2.7-4.5); Potassium 3.7 mmol/L (3.3-5.1); Sodium 145 mmol/L (135-145); Total Protein 5.8 g/dL (6.5-8.0)
[2022-05-25] MEDS: fentaNYL citrate/PF 100 MCG/2 ML VIAL 50 MCG IVPUSH ×4 (07:38→17:27)
[2022-05-25] MEDS: Carbidopa/Levodopa 25/100 TABLET 1 TAB PO ×4 (08:27→20:37)
[2022-05-25] MEDS: Chlorhexidine Gluc Oral Rinse 15 ML MOUTHWASH BUCCAL ×3 (08:27→20:36)
[2022-05-25] MEDS: rifAXIMin 550 MG TABLET PO (08:27)
[2022-05-25] MEDS: Chlorothiazide Sodium 500 MG VIAL IVPUSH (08:27)
[2022-05-25] MEDS: Furosemide 500 MG in Container,Empty 0 ML IVCONT (10:23)
--- NOTE | 2022-05-25 11:18 | MHC.CLN ---
F/U PT REMAINS INTUBATED. DISCUSSED AT ROUNDS-PROPOFOL TO REMAIN OFF PER MD RECOMMEND INCREASING PROMOTE AT MAX GAOL RATE 90ML/HR WITH 120ML Q 8 HOURS TO PROVIDE 2160KCALS (23KCALS/KG), 135G PROTEIN (1.4G/KG), 2172ML TOTAL WATER FROM FORMULA AND FLUSHES (23ML/KG) CONTINUE TO MONITOR TOLERANCE, RESIDUALS AND LYTES
--- NOTE | 2022-05-25 11:19 | PC.NURSE ---
Addendum entered by Vidal Ma RN 05/25/22 15:22: informed md of pt's elevated bp, meds administered as ordered. Addendum entered by Vidal Ma RN 05/25/22 12:22: md informed of pt's elevated BP Addendum entered by Vidal Ma RN 05/25/22 11:22: per md continue vit K and heparin sub q. water boluses ordered with tube feeds, all given as ordered. Original Note: pt not on sedation, per md plan is to attempt extubting pt if pt becomes more awake. RT at bedside assessing pt. Pt slowly becoming more awake. Flexiseal intact, flushed this shift. safety and fall precautions in place. pt repo Q2. drips maintained.
[2022-05-25 11:45] LABS: Glucose, Whole Blood 189 mg/dL (60-115)
[2022-05-25] MEDS: Heparin Sodium,Porcine 5,000 UNIT/ML VIAL 5000 UNIT SUBCUT ×2 (14:56→21:19)
[2022-05-25] MEDS: Metoprolol Tartrate 25 MG TABLET PO ×2 (15:08→20:36)
[2022-05-25] MEDS: amLODIPine Besylate 10 MG TABLET PO (15:08)
[2022-05-25 17:37] LABS: Glucose, Whole Blood 204 mg/dL (60-115)
--- NOTE | 2022-05-25 18:55 | PM.CCPN ---
Subjective Subjective Date of Service: 05/25/22 Interval History: Mr. Blackburn was transferred to the ICU on May 19 after a code blue on the floor. The patient is a 61-year-old gentleman with underlying history of alcoholic cirrhosis, dementia, ataxia, Parkinson?s disease, schizophrenia, and diastolic heart failure.? He is a resident of [facility].? He takes lactulose and rifaximin at the home.? According to the staff at [facility], up until February of this year, he was reasonably high functioning, talked to people, got around mostly in a wheelchair, but could walk to the bathroom himself, transfers chair to bed by himself. I know him and remember him well bec in February, he was hospitalized at [facility] for hepatic encephalopathy and ERNST.? He required a 10 day stay in the ICU for refractory encephalopathy, but improved enough without requiring intubation.? He was discharged on March 15 with a creat of 2.2 (baseline was normal prior to that hospitalization).? For undetermined reasons (mult head CTs and MRI unrevealing; EEG showed generalized slowing), his mental status never returned to baseline, even though his ammonia level normalized.? According to Dr. Moon (who knows him well), after he got back to [facility], his level of animation was about half of what it was previously, and he was not walking at all.? It had been my opinion at that February hospitalization that if he wound up intubated, he?d probably wind up with a tracheostomy and PEG.? Mr. Blackburn was hospitalized again March 20- for worsened encephalopathy, manifest as agitation and behavioral disturbances.? Was thought secondary to general deconditioning and advanced Parkinsonism, dementia, and schizophrenia.? Treated by decreasing the dose of gabapentin and holding loratadine and tramadol.? Required multiple doses of Haldol and Ativan to control his agitation.? Psychiatry recommended Seroquel and Ativan as needed.? His mental status improved back to what seemed to be his baseline, alert and interactive but overall disoriented. HISTORY OF PRESENT ILLNESS:? The patient was brought back on May 17 with CHF, leg edema, and weight gain.? BNP was 1919.? BUN/creatinine were 35/2.5.? Ammonia level was 26.? He was admitted to Medicine and diuresed.? During hospitalization, the patient became increasingly confused.? Was seen by Psychiatry on May 19.? Reportedly, at [facility] the patient had been on ziprasidone and fluphenazine, along with Geodon, for psychotic symptoms.? They recommended restarting the Geodon, and adding prn Seroquel and Ativan. That night, the patient had a PEA Code Blue, thought secondary to vomiting and aspiration, with a chunk of meat removed from the hypopharynx on intubation.? Has ROSC after 2 min CPR, with one dose epi.? He was transferred to the ICU and put on Unasyn, altho his CXR showed no clear infiltrate. ECHOCARDIOGRAM on May 20 was notable for mildly increased left ventricular wall thickness with hyperdynamic LV function, EF greater than 70%.? There was diastolic dysfunction with elevated filling pressures.? RV cavity size was mildly increased, with normal RVSP.? The IVC was dilated with no inspiratory collapse.? (In contrast, the echo from February showed normal RV size with mildly dilated IVC and less than 50% inspiratory collapse.) Over the last four days, we?ve been waiting for return of consciousness.? Yesterday, with much prodding, I got him to barely open his eyes, and once nod his head purposefully to me, but I could not get him to do it again.? Today, with the propofol off for 36 hours, his eyes were completely open, he looked at me, and he readily nodded his head purposefully the first time I asked him to. ?He moves all 4 spontaneously.? HR 74, SR.? BP 150/54 on his amlodipine and metoprolol.? On PSV 5/25%/+5, RR is 16, Vt 650cc, Ve 10L, PIP 11cm, ETCO2 34mm, Sat 94%.? CVBG this morning 7.47/35/+2.? Tmax 100.1?.? PERR, about 5-6mm.? No JVD at 30?.? Chest CTA, w normal exp phase.? Regular rate and rhythm, normal-sounding S1 and S2, with no murmur or gallops.? The abdomen is benign.? He has 3+ pitting edema, maybe sl less than yesterday, with massive scrotal edema.? Urine is clear today, no longer blood-tinged.? He?s on Heparin 5000u tid. I&O:? Negative 1.9L x 24hrs.? Negative 2.4L for this hosp stay. LABORATORY DATA: As below.? Notably, white count is up to 4.2.? Hb is 7.9 after 3 units RBC on May 20 & , and one unit RBC yesterday.? Platelet count is up slightly to 51K. ?BUN/creatinine steady 51/2.9 (was 49/2.9 yesterday), with bicarb up to 25, potassium 3.7, phosphorus down to 4.1.? Ammonia level 31. MICROBIOLOGY:? Sputum Gram stain from 05/23 showed 4+ polys, 1+ yeast.? Culture grew 1+ sensitive Klebsiella, and 1+ yeast. ANTIBIOTICS:? 5 days of Unasyn ended yesterday. IMAGING: Last CXR on 05/23 showed bilateral infiltrates, CHF vs ARDS. IMPRESSION: 1. Underlying Parkinson?s dz, on Sinemet. 2. Underlying schizophrenia. 3. Underlying dementia. 4. Underlying alcoholic cirrhosis. 5. Underlying hepatic encephalopathy.? Continuing the rifaximin.? Restart the lactulose when his ammonia level rises.? Check ammonia level QOD. 6. Admitted with AMS.? His baseline mental status was severely deteriorated since his hospitalization in February.? Very suggestive that either his dementia and/or his Parkinson's and/or schizophrenia were getting worse.? 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 7.? Status post cardiac arrest.? Was brief enough to possibly not have suffered any additional cerebral insult.? Now hemodynamically stable. 8. Presumed aspiration pneumonia.? Was treated w Unasyn.? I?m not sure he needed that.? The sputum gram stain and cx are unremarkable.? D/c?d the Unasyn yesterday after 5 days. 9. Encephalopathy.? Multiple visits to the bedside today to reassess mental status. May have had an element of anoxic encephalopathy, but today, for me, he is looking pretty close to the same level of MS that he had when I was taking care of him in February.? I?ll start him on Provigil tomorrow morning. 10. Hypoxemic resp failure.? With his current A-a gradient, his bilateral pulmonary infiltrates are inconsistent with a bacterial, or any infectious pneumonia.? Most likely CHF.? Vigorously diuresing him now.? From a purely respiratory standpoint, he?s ready for extubation. 11. ERNST.? BUN/creat may have crested.? The fact that his renal indices are not worsening and may be slowly improving on diuresis tells us we?re doing the right thing. 12. Diastolic heart failure and right heart failure.? Needs diuresis. 13. Massive anasarca.? 2? above factors.? Added diuril and increased his Lasix to 20mg/hr.? He?s now making copious clear yellow urine. 14. DM.? On SS insulin. 15. Anemia -- acute on chronic.? F/u hemoccult was negative again. ?Undoubtedly has ACD. 16. Leukopenia.? Chronic. 17. Thrombocytopenia.? Chronic.? May be related to his liver disease. 18. Hypokalemia.? Replete enterally. 19. Mild coagulopathy.? 2? liver disease.? Vit K 10mg q6h x 50 mg total.? Recheck PT on 05/27. 20. Nutrition.? On Promote. 21. Code status.? Discussed with Dr. Moon at some length.? In our opinion, Adilson's quality of life, such as it was, is pretty much over, unless his mental status makes a significant recovery.? Over the next few days, his prognosis will likely become clear.? At that time it may be appropriate to discuss DNR status, maybe even SUPERVISOR YARD status with the patient's guardian. Critical Care Time (minutes): 60 Physical Exam Vital Signs: Vital Signs: Last Vital Signs Temp 98.7 F 05/25/22 16:00 Pulse 68 05/25/22 18:00 Resp 17 05/25/22 18:00 BP 146/52 H 05/25/22 18:00 Pulse Ox 93 05/25/22 18:00 O2 Del Method 05/25/22 18:00 O2 Flow Rate 25 05/24/22 21:00 FiO2 25 05/25/22 18:00 BMI result Body Mass Index 39.2 Objective Data Labs CBC & Chem 7: 05/25/22 05:10 05/25/22 05:10 Labs: Laboratory Results - last 24 hr 05/24/22 05/24/22 05/25/22 05:30 23:29 05:10 WBC RBC Hgb Hct 21.0 L* MCV MCH MCHC RDW Plt Count MPV Absolute Nucleated RBC Nucleated RBC % (auto) VBG pH VBG pCO2 VBG pO2 VBG HCO3 VBG O2 Saturation VBG Base Excess Sodium Potassium Chloride Carbon Dioxide Anion Gap BUN Creatinine Estim Creat Clear Calc Estimated GFR POC Glucose 184 H Random Glucose Calcium Phosphorus Magnesium Total Bilirubin AST ALT Alkaline Phosphatase Ammonia 31 Total Protein Albumin 05/25/22 05/25/22 05/25/22 05:10 05:10 05:15 WBC 4.2 L RBC 2.54 L Hgb 7.9 L Hct 23.6 L MCV 92.9 MCH 31.1 MCHC 33.5 RDW 18.2 H Plt Count 51 L MPV 10.7 Absolute Nucleated RBC 0.000 Nucleated RBC % (auto) 0.0 VBG pH 7.47 H VBG pCO2 35 VBG pO2 55 VBG HCO3 26 VBG O2 Saturation 85.0 VBG Base Excess 2.6 Sodium 145 Potassium 3.7 Chloride 109 H Carbon Dioxide 25 Anion Gap 15 BUN 51 H Creatinine 2.91 H Estim Creat Clear Calc 34.3 Estimated GFR 22 POC Glucose Random Glucose 218 H D Calcium 8.3 L Phosphorus 4.1 Magnesium 2.1 Total Bilirubin 1.7 H AST 57 H ALT < 6 Alkaline Phosphatase 59 Ammonia Total Protein 5.8 L Albumin 3.2 L 05/25/22 05/25/22 05/25/22 05:49 11:42 17:32 WBC RBC Hgb Hct MCV MCH MCHC RDW Plt Count MPV Absolute Nucleated RBC Nucleated RBC % (auto) VBG pH VBG pCO2 VBG pO2 VBG HCO3 VBG O2 Saturation VBG Base Excess Sodium Potassium Chloride Carbon Dioxide Anion Gap BUN Creatinine Estim Creat Clear Calc Estimated GFR POC Glucose 197 H 189 H 204 H Random Glucose Calcium Phosphorus Magnesium Total Bilirubin AST ALT Alkaline Phosphatase Ammonia Total Protein Albumin Microbiology Microbiology Results: Microbiology 05/23/22 14:47 Sputum - Suctioned Gram Stain - Final 05/23/22 14:47 Sputum - Suctioned Sputum Culture - Final Klebsiella pneumoniae Yeast 05/20/22 00:48 Blood - Venous Blood Culture - Final No growth after 5 days. 05/20/22 00:48 Blood - Venous Blood Culture - Final No growth after 5 days. 05/17/22 17:00 Blood - Venous Blood Culture - Final No growth after 5 days. 05/17/22 16:10 Blood - Venous Blood Culture - Final No growth after 5 days. Quality Stroke Does the patient have a stroke diagnosis?: No VTE Prior VTE?: No VTE Risk Level:: Medical - moderate - high VTE Device Contraindication: Treatment Not Indicated VTE Drug Contraindication: N/A - Med Ordered Critical Care Time Critical Care Time (minutes): 60
[2022-05-26] VITALS (30 sets, daily range): BP systolic 144–180; BP diastolic 45–71; PULSE 62–78; RESP 14–27; TEMP 34.5–38.1; O2SAT 92–99; BMI 38.7
[2022-05-26 01:24] LABS: Glucose, Whole Blood 234 mg/dL (60-115)
[2022-05-26] MEDS: Insulin Lispro 100 UNIT/ML 3 ML VIAL SUBCUT ×4 (02:08→18:06)
[2022-05-26] MEDS: 0.9 % Sodium Chloride Flush 3 ML SYRINGE IVFLUSH ×4 (02:09→20:50)
[2022-05-26 05:20] LABS: VBG Base Excess 7.3 mmol/L; VBG HCO3 31 mmol/L (22-26); VBG pCO2 40 mmHg; VBG pH 7.48 (7.32-7.43); VBG pO2 43 mmHg
[2022-05-26] MEDS: Albuterol/Iprat 2.5/0.5MG 3 ML AMPUL.NEB INHALE ×5 (05:22→20:20)
[2022-05-26 05:32] LABS: Hematocrit 22.8 % (42.0-52.0); Hemoglobin 7.5 g/dl (14.0-18.0); Mean Corpuscular HGB Conc 32.9 g/dl (31.0-36.0); Mean Corpuscular Hemoglobin 30.9 pg (27.0-33.0); Mean Corpuscular Volume 93.8 fL (80.0-98.0); Mean Platelet Volume 10.4 fL (9.4-12.4); Red Blood Count 2.43 X10*6/uL (4.60-5.80); White Blood Count 3.9 X10*3/uL (4.8-10.8)
[2022-05-26 05:36] LABS: Platelet Count 46 X10*3/uL (160-400)
[2022-05-26 05:53] LABS: Venous Blood Gas Refer to POC result
[2022-05-26 05:58] LABS: B Type Natriuretic Peptide 3024 pg/mL (<100)
[2022-05-26 06:05] LABS: Alanine Aminotransferase 6 U/L (0-40); Alkaline Phosphatase 50 U/L (39-117); Anion Gap 15 (12-20); Aspartate Amino Transferase 48 U/L (5-37); Bilirubin Total 1.6 mg/dL (0.0-1.0); Blood Urea Nitrogen 52 mg/dL (9-16); Calcium 8.2 mg/dL (8.4-10.2); Carbon Dioxide 27 mmol/L (22-29); Chloride 108 mmol/L (96-108); Creatinine Clr Calc Pharmacy 35.5; Estimated Glomerular Filt Rate 23; Glucose Random 266 mg/dL (60-115); Phosphorus 3.7 mg/dL (2.7-4.5); Potassium 3.6 mmol/L (3.3-5.1); Sodium 146 mmol/L (135-145); Total Protein 5.5 g/dL (6.5-8.0)
[2022-05-26] MEDS: Heparin Sodium,Porcine 5,000 UNIT/ML VIAL 5000 UNIT SUBCUT ×3 (06:27→21:08)
[2022-05-26] MEDS: Levothyroxine Sodium 25 MCG TABLET PO (06:28)
[2022-05-26 06:30] LABS: Glucose, Whole Blood 224 mg/dL (60-115)
[2022-05-26] MEDS: modafiniL 100 MG TABLET 200 MG PO (07:55)
[2022-05-26] MEDS: Chlorothiazide Sodium 500 MG VIAL IVPUSH (07:56)
[2022-05-26] MEDS: Chlorhexidine Gluc Oral Rinse 15 ML MOUTHWASH BUCCAL ×3 (07:56→20:50)
[2022-05-26] MEDS: Carbidopa/Levodopa 25/100 TABLET 1 TAB PO ×4 (08:01→20:49)
[2022-05-26] MEDS: Metoprolol Tartrate 25 MG TABLET PO ×2 (08:01→20:49)
[2022-05-26] MEDS: Furosemide 500 MG in Container,Empty 0 ML IVCONT (08:38)
--- NOTE | 2022-05-26 09:49 | ECG_ITS ---
Test Reason : elevated t wave Blood Pressure : / mmHG Vent. Rate : 067 BPM Atrial Rate : 067 BPM P-R Int : 154 ms QRS Dur : 120 ms QT Int : 432 ms P-R-T Axes : 070 -57 092 degrees QTc Int : 456 ms Sinus rhythm with Premature atrial complexes Left anterior fascicular block Minimal voltage criteria for LVH, may be normal variant ( Milroy product ) Abnormal QRS-T angle, consider primary T wave abnormality Abnormal ECG When compared with ECG of 17-MAY-2022 15:02, Premature atrial complexes are now Present Minimal criteria for Anterior infarct are no longer Present Inverted T waves have replaced nonspecific T wave abnormality in Lateral leads Referred By: Harris Myers Electronically Signed By:GERSON SNYDER MD
[2022-05-26] MEDS: Potassium Chloride/H20 40 MEQ/100 ML PIGGYBACK 50 MEQ IV ×2 (10:15→15:50)
--- NOTE | 2022-05-26 10:23 | MHC.CM.PN ---
Pt continues care in ICU: may be able to extubate today. discussed goals of care and status change with pt's guardian, Melania Pruitt in [place]. Melania is receptive to change. Call placed to NILSON Carranza at [facility] who will converse with Melania to facilitate guardianship amendment through [place] Court system for code status changes (DNR, DNI) ICU MD updated on above: CM to follow.
--- NOTE | 2022-05-26 10:41 | PM.CCPN ---
Subjective Subjective Date of Service: 05/26/22 Interval History: Mr. Blackburn was transferred to the ICU on May 19 after a code blue on the floor. The patient is a 61-year-old gentleman with underlying history of alcoholic cirrhosis, dementia, ataxia, Parkinson?s disease, schizophrenia, and diastolic heart failure.? He is a resident of [facility].? He takes lactulose and rifaximin at the home.? According to the staff at [facility], up until February of this year, he was reasonably high functioning, talked to people, got around mostly in a wheelchair, but could walk to the bathroom himself, transfers chair to bed by himself. I know him and remember him well bec in February, he was hospitalized at [facility] [place] for hepatic encephalopathy and ERNST.? He required a 10 day stay in the ICU for refractory encephalopathy, but improved enough without requiring intubation.? He was discharged on March 15 with a creat of 2.2 (baseline was normal prior to that hospitalization).? For undetermined reasons (mult head CTs and MRI unrevealing; EEG showed generalized slowing), his mental status never returned to baseline, even though his ammonia level normalized.? According to Dr. Moon (who knows him well), after he got back to [facility], his level of animation was about half of what it was previously, and he was not walking at all.? It had been my opinion at that February hospitalization that if he wound up intubated, he?d probably wind up with a tracheostomy and PEG.? Mr. Blackburn was hospitalized again March 20- for worsened encephalopathy, manifest as agitation and behavioral disturbances.? Was thought secondary to general deconditioning and advanced Parkinsonism, dementia, and schizophrenia.? Treated by decreasing the dose of gabapentin and holding loratadine and tramadol.? Required multiple doses of Haldol and Ativan to control his agitation.? Psychiatry recommended Seroquel and Ativan as needed. ?His mental status improved back to what seemed to be his baseline, alert and interactive but overall disoriented. HISTORY OF PRESENT ILLNESS:? The patient was brought back on May 17 with CHF, leg edema, and weight gain.? BNP was 1919.? BUN/creatinine were 35/2.5.? Ammonia level was 26.? He was admitted to Medicine and diuresed.? During hospitalization, the patient became increasingly confused.? Was seen by Psychiatry on May 19.? Reportedly, at [facility] the patient had been on ziprasidone and fluphenazine, along with Geodon, for psychotic symptoms.? They recommended restarting the Geodon, and adding prn Seroquel and Ativan. That night, the patient had a PEA Code Blue, thought secondary to vomiting and aspiration, with a chunk of meat removed from the hypopharynx on intubation.? Has ROSC after 2 min CPR, with one dose epi.? He was transferred to the ICU and put on Unasyn, altho his CXR showed no clear infiltrate. ECHOCARDIOGRAM on May 20 was notable for mildly increased left ventricular wall thickness with hyperdynamic LV function, EF greater than 70%.? There was diastolic dysfunction with elevated filling pressures.? RV cavity size was mildly increased, with normal RVSP.? The IVC was dilated with no inspiratory collapse.? (In contrast, the echo from February showed normal RV size with mildly dilated IVC and less than 50% inspiratory collapse.) Over the last five days, we?ve been waiting for return of consciousness.? On May 24, with much prodding, I got him to barely open his eyes, and once nod his head purposefully to me, but I could not get him to do it again.? Yesterday, he was much better.? And this morning, his eyes were open, and he was readily and purposefully and appropriately interactive.? He moves all 4 spontaneously.? HR 60s, SR.? BP 146/45 on his amlodipine and metoprolol.? We gave him Provigil 200mg this morning.? On PSV 5/25%/+5, he was breathing easy with tidal vols in the 600s, Sat 95%.? CVBG this morning showed 7.48/40/+7.? Tmax 100.5?.? PERR, about 5-6mm.? No JVD at 30?.? Chest CTA, w normal exp phase.? Regular rate and rhythm, normal-sounding S1 and S2, with no murmur or gallops.? The abdomen is benign.? He has 2+ pitting edema, definitely less than yesterday, with scrotal edema down by almost half from its worst.? Urine is clear today, no longer blood-tinged.? He?s on Heparin 5000u tid. The patient was extubated after rounds this morning with no problem.? Breathing easy w 2L NC, Sat 95%. I&O:? U/o 5300 cc last 24hrs, negative 2.5L.? Now negative 6.2L for this hosp stay. LABORATORY DATA: As below.? Notably, white count is steady.? Hb down slightly after 3rd unit of blood.? Platelet count is down slightly to 46K. ?BUN/creatinine steady 52/2.8 (was 51/2.9 yesterday), potassium 3.6, BNP up to 3024.? Flat troponins (done bec of minor Twave inversions on the bedside monitor, and leads I and aVL). MICROBIOLOGY:? Sputum Gram stain from 05/23 showed 4+ polys, 1+ yeast.? Culture grew 1+ sensitive Klebsiella, and 1+ yeast. ANTIBIOTICS:? 5 days of Unasyn ended May 24. IMAGING: Last CXR on 05/23 showed bilateral infiltrates, CHF vs ARDS. IMPRESSION: 1. Underlying Parkinson?s dz, on Sinemet. 2. Underlying schizophrenia. 3. Underlying dementia. 4. Underlying alcoholic cirrhosis. 5. Underlying hepatic encephalopathy.? Continuing the rifaximin.? Restart the lactulose when his ammonia level rises.? Check ammonia level QOD. 6. Admitted with AMS.? His baseline mental status was severely deteriorated since his hospitalization in February.? Very suggestive that either his dementia and/or his Parkinson's and/or schizophrenia are getting worse.? At this point, we need to continue his Sinemet.? Question is, what to do about his other meds:? the fluphenazine and benztropine.? Given his mental status, the gabapentin should probably be stopped permanently.? I d/w Melonie Pacheco from psychiatry, who?s seen him before.? She will discuss with his psychiatrist at [facility] and get back to me. 7. Status post cardiac arrest. 8. Presumed aspiration pneumonia.? Was treated w Unasyn.? I?m not sure he needed that.? The sputum gram stain and cx are unremarkable.? D/c?d the Unasyn May 24 after 5 days. 9. Encephalopathy.? Seems at or close to his baseline.? The cardiac arrest was brief enough that he doesn?t seem to have suffered any additional cerebral insult.? The Provigil may have given him a little more animation today.? We?ll see how he tolerates it, and whether it has any adverse effects on his behavior. 10. Hypoxemic resp failure.? With his current A-a gradient, his bilateral pulmonary infiltrates are inconsistent with a bacterial, or any infectious pneumonia.? Were most likely CHF.? Vigorously diuresing him now.? Seems to have extubated successfully w no problems so far. 11. ERNST.? BUN/creat may have crested, but we may push the ratio up now with vigorous diuresis.? I?ve dropped the Lasix dose to 10mg/hr.? Still getting diuril.? We?ll see what his indices are tomorrow. 12. Diastolic heart failure and right heart failure.? Needs diuresis. 13. Massive anasarca.? 2? above factors.? Added diuril to the Lasix.? Still making copious clear yellow urine. 14. Metabolic alkalosis.? Secondary to vigorous diuresis.? Need to start Diamox. 15. DM.? On SS insulin. 16. Anemia -- acute on chronic.? F/u hemoccult was negative again.? Undoubtedly has ACD. 17. Leukopenia.? Chronic. 18. Thrombocytopenia.? Chronic.? May be related to his liver disease. 19. Hypokalemia.? Replete enterally. 20. Mild coagulopathy.? 2? liver disease.? Vit K 10mg q6h x 50 mg total.? Recheck PT tomorrow. 21. Nutrition.? Question now is whether he needs a feeding tube or not.? Swallow eval tomorrow. 22. Code status.? Discussed with Dr. Moon at some length.? In our opinion, Adilson's quality of life is getting much worse.? If he gets intubated again, it?s going to result in a tracheostomy and PEG, and no BIDquality of life.? Neither of us feel that that would be in his interest.? He should have DNR/DNI status, maybe even HOSPITAL MORTICIAN status.? I discussed that this morning with Tanesha Pruitt, his guardian ([phone]).? She agrees, but a court order would be needed to establish the DNR status.? She said that she has never done that before, and she does not think that the attorneys in her office have done it.? I discussed that with Mlia Mulligan from [employer], and asked her to patino the process with Alexandra and Mrs. Pruitt so that we could get the DNR/DNI status done within the next few days, in case something happens.? In the meantime, if something does happen, Adilson will have to be reintubated. Critical Care Time (minutes): 120 Physical Exam Vital Signs: Vital Signs: Last Vital Signs Temp 98.8 F 05/26/22 08:00 Pulse 65 05/26/22 10:00 Resp 19 05/26/22 10:00 BP 146/45 H 05/26/22 10:00 Pulse Ox 95 05/26/22 10:00 O2 Del Method 05/26/22 10:00 O2 Flow Rate 2 05/26/22 10:00 FiO2 25 05/26/22 09:00 BMI result Body Mass Index 38.7 Objective Data Labs CBC & Chem 7: 05/26/22 05:05 05/26/22 05:05 Labs: Laboratory Results - last 24 hr 05/24/22 05/25/22 05/25/22 05:30 11:42 17:32 WBC RBC Hgb Hct 21.0 L* MCV MCH MCHC RDW Plt Count MPV Absolute Nucleated RBC Nucleated RBC % (auto) VBG pH VBG pCO2 VBG pO2 VBG HCO3 VBG O2 Saturation VBG Base Excess Sodium Potassium Chloride Carbon Dioxide Anion Gap BUN Creatinine Estim Creat Clear Calc Estimated GFR POC Glucose 189 H 204 H Random Glucose Calcium Phosphorus Magnesium Total Bilirubin AST ALT Alkaline Phosphatase B-Natriuretic Peptide Total Protein Albumin 05/26/22 05/26/22 05/26/22 01:20 05:05 05:05 WBC 3.9 L RBC 2.43 L Hgb 7.5 L Hct 22.8 L MCV 93.8 MCH 30.9 MCHC 32.9 RDW 18.0 H Plt Count 46 L MPV 10.4 Absolute Nucleated RBC 0.000 Nucleated RBC % (auto) 0.0 VBG pH VBG pCO2 VBG pO2 VBG HCO3 VBG O2 Saturation VBG Base Excess Sodium Potassium Chloride Carbon Dioxide Anion Gap BUN Creatinine Estim Creat Clear Calc Estimated GFR POC Glucose 234 H Random Glucose Calcium Phosphorus Magnesium Total Bilirubin AST ALT Alkaline Phosphatase B-Natriuretic Peptide 3024 H Total Protein Albumin 05/26/22 05/26/22 05/26/22 05:05 05:16 06:18 WBC RBC Hgb Hct MCV MCH MCHC RDW Plt Count MPV Absolute Nucleated RBC Nucleated RBC % (auto) VBG pH 7.48 H VBG pCO2 40 VBG pO2 43 VBG HCO3 31 H VBG O2 Saturation 72.0 VBG Base Excess 7.3 Sodium 146 H Potassium 3.6 Chloride 108 Carbon Dioxide 27 Anion Gap 15 BUN 52 H Creatinine 2.81 H Estim Creat Clear Calc 35.5 Estimated GFR 23 POC Glucose 224 H Random Glucose 266 H Calcium 8.2 L Phosphorus 3.7 Magnesium 2.0 Total Bilirubin 1.6 H AST 48 H ALT 6 Alkaline Phosphatase 50 B-Natriuretic Peptide Total Protein 5.5 L Albumin 3.0 L Microbiology Microbiology Results: Microbiology 05/23/22 14:47 Sputum - Suctioned Gram Stain - Final 05/23/22 14:47 Sputum - Suctioned Sputum Culture - Final Klebsiella pneumoniae Yeast 05/20/22 00:48 Blood - Venous Blood Culture - Final No growth after 5 days. 05/20/22 00:48 Blood - Venous Blood Culture - Final No growth after 5 days. 05/17/22 17:00 Blood - Venous Blood Culture - Final No growth after 5 days. 05/17/22 16:10 Blood - Venous Blood Culture - Final No growth after 5 days. Quality Stroke Does the patient have a stroke diagnosis?: No VTE Prior VTE?: No VTE Risk Level:: Medical - moderate - high VTE Device Contraindication: Treatment Not Indicated VTE Drug Contraindication: N/A - Med Ordered Critical Care Time Critical Care Time (minutes): 120
[2022-05-26] MEDS: amLODIPine Besylate 10 MG TABLET PO (11:34)
--- NOTE | 2022-05-26 11:47 | PC.NURSE ---
Assumed care at 07:00. Patient was initially on the ventilator, was following commands, arousable to voice and turns head to attend speaker and tracks. Patient was successfully extubated to 2 LPM NC per MD at 9:30 am. Patient protecting airway, good cough, is very drowsy and lethargic and is still arousable to voice and still opens eyes, turns head, and attends speaker, PERRL, moves arms to command but is severely weak. Unable to perform active ROM, only passive ROM. Currently remains in restraints, due to confusion and risk for pulling lines, but considering telesitter and removal at this time. Patient EtCO2 was 27-28 upon extubation, per RT watch for precipitous rise such as to 38 or higher. Upon extubation, dark brown thick purulent sputum noted in ETT although sputum to inline suction was thin and granda/brown tinged. Lung sounds diminished at bases and vesicular centrally. SpO2 in mid 90's% on 2 LPM. Patient has been in sinus rhythm on telemetry in 60's-80's rate, has been hypertensive 160's-170's prior to amlodipine and metoprolol. Patient with T-wave elevation noted in lead II started Wednesday 05/23 about 2:55 am per review of telemetry, MD notified, EKG taken and reviewed by MD, and trending troponins. Anasarca peripherally and centrally, subjectively improved, no more periorbital or scleral edema, scrotal edema has improved, still has +4 edema to hands and feet and still has +3 edema sacrally and to lower extremities. Patient continues on lasix gtt, but dosage lowered in late morning per MD from 20 mg/hour to 10 mg/hour. Patient urine output clear, 1300 ccs in 4 hours since 7 am, was -3 liters prior to this over 24 hours, and -4 liters cumulative prior to this output; renal indices stable and being monitored by MD. Patient continues to have liquid/loose stool via rectal tube. Continues to have sleritic icterus. Skin with 2x DTI on buttocks and a stage II on buttocks.
[2022-05-26 12:09] LABS: Troponin-I High Sensitivity 102.4 ng/L (<3.5-35.0)
[2022-05-26 12:12] LABS: Glucose, Whole Blood 182 mg/dL (60-115)
[2022-05-26 15:34] LABS: Troponin-I High Sensitivity 91.3 ng/L (<3.5-35.0)
[2022-05-26 17:59] LABS: Glucose, Whole Blood 172 mg/dL (60-115)
[2022-05-26] MEDS: acetaZOLAMIDE sodium 500 MG VIAL IVPUSH (20:49)
[2022-05-26 23:59] LABS: Glucose, Whole Blood 150 mg/dL (60-115)
[2022-05-27] VITALS (29 sets, daily range): BP systolic 135–175; BP diastolic 46–67; PULSE 64–73; RESP 12–21; TEMP 36.9–37.1; O2SAT 91–100; BMI 36.1
[2022-05-27] MEDS: Albuterol/Iprat 2.5/0.5MG 3 ML AMPUL.NEB INHALE ×5 (01:00→20:29)
[2022-05-27 05:54] LABS: Hematocrit 25.1 % (42.0-52.0); Hemoglobin 8.3 g/dl (14.0-18.0); Mean Corpuscular HGB Conc 33.1 g/dl (31.0-36.0); Mean Corpuscular Hemoglobin 31.2 pg (27.0-33.0); Mean Corpuscular Volume 94.4 fL (80.0-98.0); Mean Platelet Volume 10.9 fL (9.4-12.4); Red Blood Count 2.66 X10*6/uL (4.60-5.80); Red Cell Distribution Width 18.1 % (11.0-16.0); White Blood Count 5.7 X10*3/uL (4.8-10.8)
[2022-05-27 05:57] LABS: Platelet Count 71 X10*3/uL (160-400)
[2022-05-27] MEDS: Levothyroxine Sodium 25 MCG TABLET PO (05:58)
[2022-05-27] MEDS: Heparin Sodium,Porcine 5,000 UNIT/ML VIAL 5000 UNIT SUBCUT ×3 (05:58→21:08)
[2022-05-27 06:01] LABS: INTERNATIONAL NORM RATIO 1.2 (0.9-1.1); Prothrombin Time 14.3 SEC (10.0-13.1)
[2022-05-27 06:02] LABS: Ammonia 27 umol/L (13-55)
[2022-05-27 06:11] LABS: Glucose, Whole Blood 155 mg/dL (60-115)
[2022-05-27 06:13] LABS: VBG Base Excess 11.1 mmol/L; VBG HCO3 35 mmol/L (22-26); VBG pCO2 44 mmHg; VBG pO2 53 mmHg
[2022-05-27] MEDS: Insulin Lispro 100 UNIT/ML 3 ML VIAL SUBCUT (06:22)
[2022-05-27 06:29] LABS: Anion Gap 14 (12-20); Blood Urea Nitrogen 57 mg/dL (9-16); Calcium 8.7 mg/dL (8.4-10.2); Carbon Dioxide 31 mmol/L (22-29); Chloride 107 mmol/L (96-108); Creatinine Clr Calc Pharmacy 35.4; Estimated Glomerular Filt Rate 24; Glucose Random 181 mg/dL (60-115); Magnesium 1.8 mg/dL (1.6-2.6); Phosphorus 4.1 mg/dL (2.7-4.5); Potassium 3.3 mmol/L (3.3-5.1); Sodium 149 mmol/L (135-145)
[2022-05-27 07:34] LABS: Venous Blood Gas Refer to POC result
--- NOTE | 2022-05-27 09:15 | P.PNCC_ITS ---
Subjective Subjective Date of Service: 05/27/22 Interval History: Mr. Blackburn was transferred to the ICU on May 19 after a code blue on the floor. The patient is a 61-year-old gentleman with underlying history of alcoholic cirrhosis, dementia, ataxia, Parkinson?s disease, schizophrenia, and diastolic heart failure.? He is a resident of [facility].? He takes lactulose and rifaximin at the home.? According to the staff at [facility], up until February of this year, he was reasonably high functioning, talked to people, got around mostly in a wheelchair, but could walk to the bathroom himself, transfers chair to bed by himself. I know him and remember him well bec in February, he was hospitalized at [facility] for hepatic encephalopathy and ERNST.? He required a 10 day stay in the ICU for refractory encephalopathy, but improved enough without requiring intubation.? He was discharged on March 15 with a creat of 2.2 (baseline was normal prior to that hospitalization).? For undetermined reasons (mult head CTs and MRI unrevealing; EEG showed generalized slowing), his mental status never returned to baseline, even though his ammonia level normalized.? According to Dr. Moon (who knows him well), after he got back to [facility], his level of animation was about half of what it was previously, and he was not walking at all.? It had been my opinion at that February hospitalization that if he wound up intubated, he?d probably wind up with a tracheostomy and PEG.? Mr. Blackburn was hospitalized again March 20- for worsened encephalopathy, manifest as agitation and behavioral disturbances.? Was thought secondary to general deconditioning and advanced Parkinsonism, dementia, and schizophrenia.? Treated by decreasing the dose of gabapentin and holding loratadine and tramadol.? Required multiple doses of Haldol and Ativan to control his agitation.? Psychiatry recommended Seroquel and Ativan as needed.? His mental status improved back to what seemed to be his baseline, alert and interactive but overall disoriented. HISTORY OF PRESENT ILLNESS:? The patient was brought back on May 17 with CHF, leg edema, and weight gain.? BNP was 1919.? BUN/creatinine were 35/2.5.? Ammonia level was 26.? He was admitted to Medicine and diuresed.? During hospitalization, the patient became increasingly confused.? Was seen by Psychiatry on May 19.? Reportedly, at [facility] the patient had been on ziprasidone and fluphenazine, along with Geodon, for psychotic symptoms.? They recommended restarting the Geodon, and adding prn Seroquel and Ativan. That night, the patient had a PEA Code Blue, thought secondary to vomiting and aspiration, with a chunk of meat removed from the hypopharynx on intubation.? Has ROSC after 2 min CPR, with one dose epi.? He was transferred to the ICU and put on Unasyn, altho his CXR showed no clear infiltrate. ECHOCARDIOGRAM on May 20 was notable for mildly increased left ventricular wall thickness with hyperdynamic LV function, EF greater than 70%.? There was diastolic dysfunction with elevated filling pressures.? RV cavity size was mildly increased, with normal RVSP.? The IVC was dilated with no inspiratory collapse.? (In contrast, the echo from February showed normal RV size with mildly dilated IVC and less than 50% inspiratory collapse.) It took five days for the patient to regain his mental status, but finally yesterday he was awake and interactive enough to extubate, which we did with no problem.? He?s been breathing easy w no airway problems since then. This morning, he arouses with moderate prompting, and when he?s awake, he tracks readily.? But it takes vigorous prompting to get him to be purposefully interactive (e.g. to nod his head in response to questions).? He is not talking at all, not making any sounds. ?He moves all 4 spontaneously.? HR 60s, SR.? BP 157/61.? He is not able to take anything orally, so he did not get his Provigil today nor is he getting his amlodipine, metoprolol, or Sinemet. ?On 2L NC, Sat is 99%.? On room air, Sat is 92%.? CVBG this morning showed 7.50/44/+11.? Afebrile.? PERR, about 5mm.? No JVD at 30?.? Chest CTA, w normal exp phase.? Regular rate and rhythm, normal-sounding S1 and S2, with no murmur or gallops.? The abdomen is benign.? He has 1-2+ anasarca, definitely less than yesterday, with decreased scrotal edema compared with yesterday, and down by more than half from its worst.? Urine is clear yellow.? He?s on Heparin 5000u tid. He has a 1/2 x 3 cm stage 2 decubitus on his ?coccyx, a 1 cm DTI on his medial right buttock, and a 3 x 3 DTI on his left buttock I&O:? U/o 6300 cc last 24hrs, negative 5.9L.? Now negative 11.9L for this hosp stay. LABORATORY DATA: As below.? Notably, platelet count up ot 71K. ?PT improved to 14/1.2 after 50 mg replacement Vit K.? BUN up slightly, creatinine down slightly on the Lasix & Diuril, potassium 3.3, Mg 1.8.? Ammonia 27. MICROBIOLOGY:? Sputum Gram stain from 05/23 showed 4+ polys, 1+ yeast.? Culture grew 1+ sensitive Klebsiella, and 1+ yeast. ANTIBIOTICS:? 5 days of Unasyn ended May 24. IMAGING: Last CXR on 05/23 showed bilateral infiltrates, CHF vs ARDS. IMPRESSION: 1. Underlying Parkinson?s dz, on Sinemet. 2. Underlying schizophrenia. 3. Underlying dementia. 4. Underlying alcoholic cirrhosis. 5. Underlying hepatic encephalopathy.? Continuing the rifaximin.? Restart the lactulose when his ammonia level rises.? Check ammonia level QOD. 6. Admitted with AMS.? His baseline mental status was severely deteriorated since his hospitalization in February.? Very suggestive that either his dementia and/or his Parkinson's and/or schizophrenia are getting worse.? At this point, the only thing we need to continue his Sinemet.? I discussed with Melonie Pacheco from Psychiatry what to do about his fluphenazine, benztropine, and gabapentin. ?She checked with his psychiatrist at [facility].? We?re all in agreement that he does not need to continue any of those, especially the gabapentin. 7. Status post cardiac arrest. 8. Presumed aspiration pneumonia.? Was treated w Unasyn.? I?m not sure he needed that.? The sputum gram stain and cx are unremarkable.? D/c?d the Unasyn May 24 after 5 days. 9. Encephalopathy.? Seems to have recovered from the cardiac arrest to or close to his baseline.? The cardiac arrest was brief enough that he doesn?t seem to have suffered any additional cerebral insult.? The Provigil may have given him a little more animation yesterday, but we couldn?t give it to him today, he?s not able to take anything by mouth. 10. Hypoxemic resp failure.? Was most likely CHF.? Much improved after vigorous diuresis. 11. ERNST.? Creat improving but the ratio is climbing.? We?ve just about reached his limit for diuresis.?? I stopped the Diuril, dropped the Lasix dose down to 8mg/hr. 12. Diastolic heart failure and right heart failure.? We may have reached the limit for diuresis. 13. Massive anasarca.? 2? above factors.? Hugely improved over last five days, 14. Metabolic alkalosis.? Secondary to vigorous diuresis.? Started Diamox. 15. DM.? On SS insulin. 16. Anemia -- acute on chronic.? F/u hemoccult was negative again.? Undoubtedly has ACD. 17. Leukopenia.? Chronic. 18. Thrombocytopenia.? Chronic.? May be related to his liver disease. 19. Hypokalemia.? Repleted intravenously. 20. Hypomagnesemia.? Repleted intravenously. 21. Mild coagulopathy.? 2? liver disease.? Corrected after 50 mg Vit K. 22. Decubitus ulcers, as above.? Usual care. 23. Nutrition.? I think the days of Adilson taking anything orally are over.? He needs a feeding tube.? Discussed with Dr. Berry from GI today at great length.? She reviewed the CT scan.? Because of his ascites, he?ll likely need a surgical gastrostomy.? Have consulted Dr. Lizarraga.? In the meantime, we?ll put a KO feed tube down for feeding and for his Sinemet. 24. Code status.? Discussed with Dr. Moon at some length.? In our opinion, Sukumar bergman's quality of life is getting much worse.? If he gets intubated again, it?s going to result in a tracheostomy and PEG, and no quality of life.? Neither of us feel that that would be in his interest.? 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 I discussed that yesterday with Tanesha Pruitt, his guardian ([phone]).? She agrees, but a court order would be needed to establish the DNR status.? She said that she has never done that before, and she does not think that the attorneys in her office have done it.? I discussed that with Mila Mulligan from [employer], and asked her to patino the process with [facility] and Mrs. Pruitt so that we could get the DNR/DNI status done within the next few days, in case something happens.? In the meantime, if something does happen, Adilson will have to be reintubated. I called Ms. Pruitt again today and discussed the feeding tube.? She agrees and will give consent when we schedule the procedure. Time:? 100 min Critical Care Time (minutes): 0 Physical Exam Vital Signs: Vital Signs: Last Vital Signs Temp 98.4 F 05/27/22 08:00 Pulse 69 05/27/22 09:00 Resp 17 05/27/22 09:00 BP 156/50 H 05/27/22 09:00 Pulse Ox 96 05/27/22 09:00 O2 Del Method 05/27/22 09:00 O2 Flow Rate 2 05/27/22 09:00 FiO2 25 05/26/22 09:00 BMI result Body Mass Index 36.1 Objective Data Labs CBC & Chem 7: 05/27/22 05:40 05/27/22 05:40 Labs: Laboratory Results - last 24 hr 05/26/22 05/26/22 05/26/22 11:27 12:02 14:14 WBC RBC Hgb Hct MCV MCH MCHC RDW Plt Count MPV Absolute Nucleated RBC Nucleated RBC % (auto) PT INR O2 Saturation ABG pH at Pt Temp ABG pCO2 at Pt Temp ABG pO2 at Pt Temp ABG HCO3 ABG Base Excess (Actual) VBG pH VBG pCO2 VBG pO2 VBG HCO3 VBG O2 Saturation VBG Base Excess Sodium Potassium Chloride Carbon Dioxide Anion Gap BUN Creatinine Estim Creat Clear Calc Estimated GFR POC Glucose 182 H Random Glucose Calcium Phosphorus Magnesium Ammonia Troponin I High Sens 102.4 H* D 91.3 H Albumin 05/26/22 05/26/22 05/27/22 17:44 23:56 05:40 WBC RBC Hgb Hct MCV MCH MCHC RDW Plt Count MPV Absolute Nucleated RBC Nucleated RBC % (auto) PT INR O2 Saturation ABG pH at Pt Temp ABG pCO2 at Pt Temp ABG pO2 at Pt Temp ABG HCO3 ABG Base Excess (Actual) VBG pH VBG pCO2 VBG pO2 VBG HCO3 VBG O2 Saturation VBG Base Excess Sodium Potassium Chloride Carbon Dioxide Anion Gap BUN Creatinine Estim Creat Clear Calc Estimated GFR POC Glucose 172 H 150 H Random Glucose Calcium Phosphorus Magnesium Ammonia 27 Troponin I High Sens Albumin 05/27/22 05/27/22 05/27/22 05:40 05:40 05:40 WBC 5.7 RBC 2.66 L Hgb 8.3 L Hct 25.1 L MCV 94.4 MCH 31.2 MCHC 33.1 RDW 18.1 H Plt Count 71 L D MPV 10.9 Absolute Nucleated RBC 0.000 Nucleated RBC % (auto) 0.0 PT 14.3 H INR 1.2 H O2 Saturation ABG pH at Pt Temp ABG pCO2 at Pt Temp ABG pO2 at Pt Temp ABG HCO3 ABG Base Excess (Actual) VBG pH VBG pCO2 VBG pO2 VBG HCO3 VBG O2 Saturation VBG Base Excess Sodium 149 H Potassium 3.3 Chloride 107 Carbon Dioxide 31 H Anion Gap 14 BUN 57 H Creatinine 2.70 H Estim Creat Clear Calc 35.4 Estimated GFR 24 POC Glucose Random Glucose 181 H Calcium 8.7 D Phosphorus 4.1 Magnesium 1.8 Ammonia Troponin I High Sens Albumin 3.0 L 05/27/22 05/27/22 05:44 06:07 WBC RBC Hgb Hct MCV MCH MCHC RDW Plt Count MPV Absolute Nucleated RBC Nucleated RBC % (auto) PT INR O2 Saturation TNP ABG pH at Pt Temp TNP ABG pCO2 at Pt Temp TNP ABG pO2 at Pt Temp TNP ABG HCO3 TNP ABG Base Excess (Actual) TNP VBG pH 7.50 H VBG pCO2 44 VBG pO2 53 VBG HCO3 35 H VBG O2 Saturation 83.0 VBG Base Excess 11.1 Sodium Potassium Chloride Carbon Dioxide Anion Gap BUN Creatinine Estim Creat Clear Calc Estimated GFR POC Glucose 155 H Random Glucose Calcium Phosphorus Magnesium Ammonia Troponin I High Sens Albumin Microbiology Microbiology Results: Microbiology 05/23/22 14:47 Sputum - Suctioned Gram Stain - Final 05/23/22 14:47 Sputum - Suctioned Sputum Culture - Final Klebsiella pneumoniae Yeast 05/20/22 00:48 Blood - Venous Blood Culture - Final No growth after 5 days. 05/20/22 00:48 Blood - Venous Blood Culture - Final No growth after 5 days. 05/17/22 17:00 Blood - Venous Blood Culture - Final No growth after 5 days. 05/17/22 16:10 Blood - Venous Blood Culture - Final No growth after 5 days. Quality Stroke Does the patient have a stroke diagnosis?: No VTE Prior VTE?: No VTE Risk Level:: Medical - moderate - high VTE Device Contraindication: Treatment Not Indicated VTE Drug Contraindication: N/A - Med Ordered
[2022-05-27] MEDS: Chlorhexidine Gluc Oral Rinse 15 ML MOUTHWASH BUCCAL ×2 (10:00→14:51)
--- NOTE | 2022-05-27 10:00 | MHC.CLN ---
F/U PT EXTUBATED YESTERDAY DISCUSSED AT ROUNDS-PT LIKELY TO NEED A PEG PER MD POSSIBLE PEG PLACEMENT TODAY VS. KAOFEED TUBE PER MD PT CURRENTLY NPO IF PEG/KAOFEED PLACED; RECOMMEND RE-STARTING PROMOTE AT MAX GOAL RATE OF 90ML/HR WITH 120ML Q 8 HOURS TO PROVIDE 2160KCALS (23KCALS/KG), 135G PROTEIN (1.4G/KG), 2172ML TOTAL WATER FROM FORMULA AND FLUSHES (23ML/KG) MONITOR TOLERANCE, RESIDUALS AND LYTES
[2022-05-27] MEDS: acetaZOLAMIDE sodium 500 MG VIAL IVPUSH ×2 (10:01→21:09)
[2022-05-27] MEDS: Chlorothiazide Sodium 500 MG VIAL IVPUSH (10:01)
[2022-05-27] MEDS: 0.9 % Sodium Chloride Flush 3 ML SYRINGE IVFLUSH ×2 (11:02→14:54)
[2022-05-27] MEDS: Furosemide 500 MG in Container,Empty 0 ML IVCONT (12:06)
[2022-05-27 12:16] LABS: Glucose, Whole Blood 144 mg/dL (60-115)
--- NOTE | 2022-05-27 13:36 | MHC.SL.SWA ---
Speech Pathologist Impression: Oropharyngeal dysphagia Risk of Aspiration Due to: Medically Fragile Neurological Condition Reduced Cognition Dysphasia Diet Status: Continue NPO Liquid Consistency and Strategies for Safe Swallow: Liquid Intake Recommendation: NPO Solid Food Consistency: Dietary Recommendations: NPO Additional Modifications to Solid Foods: Clinical s/s of aspiration w/ PO trials. Recommend continue NPO at this time. Discussed w/ RN on unit. Sent update to MD, RN, RD via [employer] Message. APPLICATION MANAGER will continue to follow. Oral Medication Intake: NPO Please contact the pharmacy regarding appropriate crushable or liquid drug formulations that are available whenever modified delivery is recommended. Supervision While Eating and Drinking for Safe Swallow: PO with APPLICATION MANAGER Swallowing Recommended Treatments: Recommendation for Speech: Inpatient Speech Therapy Senior Care Manager Clinican/Clinical Fellow: No Supervisory Statement: I have reviewed and agree with the student/clinical fellow's documentation: N/A Speech Language Pathologist: Jonelle Peterson M.A., CCC-APPLICATION MANAGER
--- NOTE | 2022-05-27 13:54 | MHC.SLORD ---
Speech Language Pathology Order Status: Discussed with MD. Per MD, OB TECH consult no longer indicated for this pt. Please re-refer if OB TECH can be of further assistance.
--- NOTE | 2022-05-27 16:33 | P.CNPS_ITS ---
History of Present Illness Chief Complaint: Heart failure exacerbation [facility] Medical History (Updated 05/20/22 @ 12:07 by Alvin Alba MD) Abnormal findings on diagnostic imaging of liver and biliary tract Acute kidney failure, unspecified Acute respiratory failure with hypoxia Alcohol abuse, uncomplicated Alcoholic cirrhosis of liver with ascites Allergic rhinitis due to pollen Anemia Ataxia Cannabis use, unspecified, uncomplicated Chronic kidney disease, stage 3 unspecified Chronic renal failure CKD (chronic kidney disease) stage 3, GFR 30-59 ml/min Cocaine abuse, uncomplicated Dementia Dementia in other diseases classified elsewhere with behavioral disturbance Diabetes Disorder of urea cycle metabolism, unspecified Drug abuse, cocaine type Dysphagia, oral phase Dysphagia, oropharyngeal phase Essential (primary) hypertension Essential tremor ETOH abuse Hepatic failure, unspecified without coma Hepatomegaly, not elsewhere classified Hereditary and idiopathic neuropathy, unspecified Hereditary ataxia, unspecified Hyperosmolality and hypernatremia Intracranial hemorrhage, subdural Mild cognitive impairment, so stated Muscle weakness (generalized) Myopia, bilateral Orthostatic hypotension Osteophyte, unspecified joint Other chronic allergic conjunctivitis Other lack of coordination Other pancytopenia Other skin changes Other specified eating disorder Other speech disturbances Pain in unspecified shoulder Parkinson disease Pneumonitis due to inhalation of food and vomit Repeated falls Schizophrenia Sepsis, unspecified organism Subdural hematoma Tinea pedis Toxic metabolic encephalopathy Traumatic subdural hemorrhage without loss of consciousness, subsequent encounter Type 2 diabetes mellitus with diabetic polyneuropathy Unspecified dementia with behavioral disturbance Unsteadiness on feet Diagnostics Vital Signs (24Hr): Vital Signs - 24 hr 05/26/22 17:00 05/26/22 18:00 05/26/22 18:52 Temperature Pulse Rate 67 68 70 Respiratory Rate 18 16 20 Blood Pressure 153/61 H 175/70 H 169/59 H Pulse Oximetry 95 96 95 Oxygen Delivery Method Nasal Cannula Nasal Cannula Nasal Cannula Oxygen Flow Rate 2 2 2 05/26/22 20:00 05/26/22 21:00 05/26/22 22:00 Temperature 98.8 F Pulse Rate 71 75 62 Respiratory Rate 22 H 14 17 Blood Pressure 167/58 H 166/56 H 156/68 H Pulse Oximetry 96 94 98 Oxygen Delivery Method Nasal Cannula Nasal Cannula Nasal Cannula Oxygen Flow Rate 2 2 2 05/26/22 20:20 05/26/22 23:00 05/27/22 00:00 Temperature 98.6 F Pulse Rate 71 64 66 Respiratory Rate 17 15 18 Blood Pressure 160/63 H 166/65 H Pulse Oximetry 99 96 Oxygen Delivery Method Nasal Cannula Nasal Cannula Oxygen Flow Rate 2 2 05/27/22 01:00 05/27/22 02:00 05/27/22 03:00 Temperature Pulse Rate 67 71 72 Respiratory Rate 19 17 21 H Blood Pressure 172/64 H 162/60 H 175/67 H Pulse Oximetry 100 95 95 Oxygen Delivery Method Nasal Cannula Nasal Cannula Nasal Cannula Oxygen Flow Rate 2 2 2 05/27/22 04:00 05/27/22 05:00 05/27/22 05:58 Temperature Pulse Rate 71 73 72 Respiratory Rate 12 21 H 19 Blood Pressure 172/61 H 162/62 H 158/50 H Pulse Oximetry 95 95 95 Oxygen Delivery Method Nasal Cannula Nasal Cannula Nasal Cannula Oxygen Flow Rate 2 2 2 05/27/22 00:59 05/27/22 04:42 05/27/22 07:00 Temperature Pulse Rate 68 72 71 Respiratory Rate 16 20 18 Blood Pressure 167/52 H Pulse Oximetry 97 Oxygen Delivery Method Nasal Cannula Oxygen Flow Rate 2 05/27/22 07:34 05/27/22 13:00 05/27/22 08:00 Temperature 98.7 F 98.4 F Pulse Rate 68 68 72 Respiratory Rate 15 17 14 Blood Pressure 155/46 H 162/56 H Pulse Oximetry 98 96 Oxygen Delivery Method Nasal Cannula Nasal Cannula Oxygen Flow Rate 1 2 05/27/22 09:00 05/27/22 10:00 05/27/22 11:00 Temperature Pulse Rate 69 70 73 Respiratory Rate 17 18 19 Blood Pressure 156/50 H 165/57 H 161/56 H Pulse Oximetry 96 96 97 Oxygen Delivery Method Nasal Cannula Nasal Cannula Nasal Cannula Oxygen Flow Rate 2 1 1 05/27/22 11:21 05/27/22 12:00 05/27/22 14:00 Temperature 98.8 F Pulse Rate 72 71 64 Respiratory Rate 18 18 16 Blood Pressure 157/46 H 135/56 L Pulse Oximetry 96 98 Oxygen Delivery Method Nasal Cannula Nasal Cannula Oxygen Flow Rate 1 1 05/27/22 15:00 05/27/22 16:00 Temperature 98.7 F Pulse Rate 66 67 Respiratory Rate 17 16 Blood Pressure 154/59 H 157/61 H Pulse Oximetry 99 99 Oxygen Delivery Method Nasal Cannula Nasal Cannula Oxygen Flow Rate 1 1 BMI result Body Mass Index 36.1 Labs Results: 05/27/22 05:40 05/27/22 05:40 Labs: Laboratory Results - last 48 hr 05/25/22 05/26/22 05/26/22 17:32 01:20 05:05 WBC RBC Hgb Hct MCV MCH MCHC RDW Plt Count MPV Absolute Nucleated RBC Nucleated RBC % (auto) PT INR O2 Saturation ABG pH at Pt Temp ABG pCO2 at Pt Temp ABG pO2 at Pt Temp ABG HCO3 ABG Base Excess (Actual) VBG pH VBG pCO2 VBG pO2 VBG HCO3 VBG O2 Saturation VBG Base Excess Sodium Potassium Chloride Carbon Dioxide Anion Gap BUN Creatinine Estim Creat Clear Calc Estimated GFR POC Glucose 204 H 234 H Random Glucose Calcium Phosphorus Magnesium Total Bilirubin AST ALT Alkaline Phosphatase Ammonia Troponin I High Sens B-Natriuretic Peptide 3024 H Total Protein Albumin 05/26/22 05/26/22 05/26/22 05:05 05:05 05:16 WBC 3.9 L RBC 2.43 L Hgb 7.5 L Hct 22.8 L MCV 93.8 MCH 30.9 MCHC 32.9 RDW 18.0 H Plt Count 46 L MPV 10.4 Absolute Nucleated RBC 0.000 Nucleated RBC % (auto) 0.0 PT INR O2 Saturation ABG pH at Pt Temp ABG pCO2 at Pt Temp ABG pO2 at Pt Temp ABG HCO3 ABG Base Excess (Actual) VBG pH 7.48 H VBG pCO2 40 VBG pO2 43 VBG HCO3 31 H VBG O2 Saturation 72.0 VBG Base Excess 7.3 Sodium 146 H Potassium 3.6 Chloride 108 Carbon Dioxide 27 Anion Gap 15 BUN 52 H Creatinine 2.81 H Estim Creat Clear Calc 35.5 Estimated GFR 23 POC Glucose Random Glucose 266 H Calcium 8.2 L Phosphorus 3.7 Magnesium 2.0 Total Bilirubin 1.6 H AST 48 H ALT 6 Alkaline Phosphatase 50 Ammonia Troponin I High Sens B-Natriuretic Peptide Total Protein 5.5 L Albumin 3.0 L 05/26/22 05/26/22 05/26/22 06:18 11:27 12:02 WBC RBC Hgb Hct MCV MCH MCHC RDW Plt Count MPV Absolute Nucleated RBC Nucleated RBC % (auto) PT INR O2 Saturation ABG pH at Pt Temp ABG pCO2 at Pt Temp ABG pO2 at Pt Temp ABG HCO3 ABG Base Excess (Actual) VBG pH VBG pCO2 VBG pO2 VBG HCO3 VBG O2 Saturation VBG Base Excess Sodium Potassium Chloride Carbon Dioxide Anion Gap BUN Creatinine Estim Creat Clear Calc Estimated GFR POC Glucose 224 H 182 H Random Glucose Calcium Phosphorus Magnesium Total Bilirubin AST ALT Alkaline Phosphatase Ammonia Troponin I High Sens 102.4 H* D B-Natriuretic Peptide Total Protein Albumin 05/26/22 05/26/22 05/26/22 14:14 17:44 23:56 WBC RBC Hgb Hct MCV MCH MCHC RDW Plt Count MPV Absolute Nucleated RBC Nucleated RBC % (auto) PT INR O2 Saturation ABG pH at Pt Temp ABG pCO2 at Pt Temp ABG pO2 at Pt Temp ABG HCO3 ABG Base Excess (Actual) VBG pH VBG pCO2 VBG pO2 VBG HCO3 VBG O2 Saturation VBG Base Excess Sodium Potassium Chloride Carbon Dioxide Anion Gap BUN Creatinine Estim Creat Clear Calc Estimated GFR POC Glucose 172 H 150 H Random Glucose Calcium Phosphorus Magnesium Total Bilirubin AST ALT Alkaline Phosphatase Ammonia Troponin I High Sens 91.3 H B-Natriuretic Peptide Total Protein Albumin 05/27/22 05/27/22 05/27/22 05:40 05:40 05:40 WBC 5.7 RBC 2.66 L Hgb 8.3 L Hct 25.1 L MCV 94.4 MCH 31.2 MCHC 33.1 RDW 18.1 H Plt Count 71 L D MPV 10.9 Absolute Nucleated RBC 0.000 Nucleated RBC % (auto) 0.0 PT INR O2 Saturation ABG pH at Pt Temp ABG pCO2 at Pt Temp ABG pO2 at Pt Temp ABG HCO3 ABG Base Excess (Actual) VBG pH VBG pCO2 VBG pO2 VBG HCO3 VBG O2 Saturation VBG Base Excess Sodium 149 H Potassium 3.3 Chloride 107 Carbon Dioxide 31 H Anion Gap 14 BUN 57 H Creatinine 2.70 H Estim Creat Clear Calc 35.4 Estimated GFR 24 POC Glucose Random Glucose 181 H Calcium 8.7 D Phosphorus 4.1 Magnesium 1.8 Total Bilirubin AST ALT Alkaline Phosphatase Ammonia 27 Troponin I High Sens B-Natriuretic Peptide Total Protein Albumin 3.0 L 05/27/22 05/27/22 05/27/22 05:40 05:44 06:07 WBC RBC Hgb Hct MCV MCH MCHC RDW Plt Count MPV Absolute Nucleated RBC Nucleated RBC % (auto) PT 14.3 H INR 1.2 H O2 Saturation TNP ABG pH at Pt Temp TNP ABG pCO2 at Pt Temp TNP ABG pO2 at Pt Temp TNP ABG HCO3 TNP ABG Base Excess (Actual) TNP VBG pH 7.50 H VBG pCO2 44 VBG pO2 53 VBG HCO3 35 H VBG O2 Saturation 83.0 VBG Base Excess 11.1 Sodium Potassium Chloride Carbon Dioxide Anion Gap BUN Creatinine Estim Creat Clear Calc Estimated GFR POC Glucose 155 H Random Glucose Calcium Phosphorus Magnesium Total Bilirubin AST ALT Alkaline Phosphatase Ammonia Troponin I High Sens B-Natriuretic Peptide Total Protein Albumin 05/27/22 12:12 WBC RBC Hgb Hct MCV MCH MCHC RDW Plt Count MPV Absolute Nucleated RBC Nucleated RBC % (auto) PT INR O2 Saturation ABG pH at Pt Temp ABG pCO2 at Pt Temp ABG pO2 at Pt Temp ABG HCO3 ABG Base Excess (Actual) VBG pH VBG pCO2 VBG pO2 VBG HCO3 VBG O2 Saturation VBG Base Excess Sodium Potassium Chloride Carbon Dioxide Anion Gap BUN Creatinine Estim Creat Clear Calc Estimated GFR POC Glucose 144 H Random Glucose Calcium Phosphorus Magnesium Total Bilirubin AST ALT Alkaline Phosphatase Ammonia Troponin I High Sens B-Natriuretic Peptide Total Protein Albumin Imaging Radiology Impressions: ITS Impressions Chest X-Ray 05/17/22 14:25 IMPRESSION: Persistent but improved bilateral diffuse airspace disease. Abdomen/Pelvis CT 05/17/22 14:34 IMPRESSION: Very limited exam due to motion artifact. Cirrhotic appearing liver, varices and splenomegaly. No ascites. Constipation. Fleischner guidelines were followed. Hip/Pelvis X-Ray 05/18/22 21:28 IMPRESSION: Mild bilateral hip osteoarthritis without acute fracture. Chest X-Ray 05/19/22 20:45 IMPRESSION: Lines and tubes in position as described above. Chest X-Ray 05/23/22 14:27 IMPRESSION: Nasogastric tube projects over stomach, tip not seen. Satisfactory position of right jugular line and endotracheal tube. Slight interval increase in bilateral multilobar airspace disease from 05/19/2022 exam. Medications Medications Current Medications Acetazolamide (Acetazolamide Sodium 500 Mg Vial) 500 mg IVPUSH BID [facility] Last Admin: 05/27/22 10:01 Dose: 500 mg Albuterol/Ipratropium (Albuterol/Iprat 2.5/0.5mg 3 Ml Ampul.Neb) 3 ml INHALE Q4H [facility] Last Admin: 05/27/22 15:32 Dose: Not Given Amlodipine Besylate (Amlodipine Besylate 10 Mg Tablet) 10 mg PO DAILY [facility]; Protocol Last Admin: 05/27/22 11:12 Dose: Not Given Carbidopa/Levodopa (Carbidopa/Levodopa 25/100 Tablet) 1 tab PO QID [facility] Last Admin: 05/27/22 16:12 Dose: Not Given Chlorhexidine Gluconate (Chlorhexidine Gluc Oral Rinse 15 Ml Mouthwash) 15 ml BUCCAL TID [facility] Last Admin: 05/27/22 14:51 Dose: 15 ml Chlorothiazide Sodium (Chlorothiazide Sodium 500 Mg Vial) 500 mg IVPUSH DAILY [facility]; Protocol Last Admin: 05/27/22 10:01 Dose: 500 mg Fentanyl (Fentanyl Citrate/Pf 100 Mcg/2 Ml Vial) 50 mcg IVPUSH Q5M PRN; Protocol PRN Reason: pain or WOB Last Admin: 05/25/22 17:27 Dose: 50 mcg Fentanyl (Fentanyl Citrate/Pf 100 Mcg/2 Ml Vial) 100 mcg IVPUSH Q5M PRN; Protocol PRN Reason: severe pain or WOB Last Admin: 05/25/22 00:31 Dose: 100 mcg Heparin Sodium (Porcine) (Heparin Sodium,Porcine 5,000 Unit/Ml Vial) 5,000 unit SUBCUT Q8H [facility] Last Admin: 05/27/22 14:51 Dose: 5,000 unit Furosemide 500 mg/ IV (Miscellaneous Supplies) 50 mls @ 1 mls/hr IVCONT .Q24H [facility] Last Admin: 05/27/22 12:06 Dose: 10 mg/hr, 1 mls/hr Insulin Human Lispro (Insulin Lispro 100 Unit/Ml 3 Ml Vial) 0 unit SUBCUT QIDACHS [facility]; Protocol Last Admin: 05/27/22 12:45 Dose: Not Given Lactulose (Lactulose 20 Gm/30 Ml Solution) 20 gm OG-TUBE Q6H [facility] Last Admin: 05/22/22 20:46 Dose: 20 gm Levothyroxine Sodium (Levothyroxine Sodium 25 Mcg Tablet) 25 mcg PO DAILY@0600 [facility] Last Admin: 05/27/22 05:58 Dose: 25 mcg Metoprolol Tartrate (Metoprolol Tartrate 25 Mg Tablet) 25 mg PO BID [facility]; Protocol Last Admin: 05/27/22 11:12 Dose: Not Given Modafinil (Modafinil 100 Mg Tablet) 200 mg PO DAILY [facility] Last Admin: 05/27/22 11:17 Dose: Not Given Omeprazole (Omeprazole 20 Mg/10 Ml Susp.Recon) 40 mg G-TUBE DAILY@0630 [facility] Last Admin: 05/27/22 05:58 Dose: 40 mg Pharmacy Consult (Consult Rx Perform Med Rec) 1 each MISCELLANE ONCE PRN PRN Reason: Consult order Sodium Chloride (0.9 % Sodium Chloride Flush 3 Ml Syringe) 3 ml IVFLUSH QSHIFT [facility] Last Admin: 05/27/22 14:54 Dose: 3 ml Allergies Allergies Allergy/AdvReac Type Severity Reaction Status Date / Time pollen extracts Allergy Unknown Verified 03/20/22 13:42 ragweed pollen Allergy Unknown Verified 03/20/22 13:42 Assessment & Plan I spent minutes with the patient and/or on the patient floor today, greater than?50% of which was spent counseling/coordinating care.
[2022-05-27 16:34] LABS: Glucose, Whole Blood 137 mg/dL (60-115)
[2022-05-27] MEDS: Magnesium Sulfate/H2O 2 GM/50 ML PIGGYBACK IV (17:19)
[2022-05-27] MEDS: Potassium Chloride/H20 40 MEQ/100 ML PIGGYBACK 50 MEQ IV ×2 (17:22→21:09)
[2022-05-27 21:14] LABS: Glucose, Whole Blood 140 mg/dL (60-115)
[2022-05-28] VITALS (28 sets, daily range): BP systolic 148–177; BP diastolic 43–87; PULSE 60–91; RESP 14–96; TEMP 36.6–37.4; O2SAT 89–100; BMI 34.4
[2022-05-28] MEDS: Albuterol/Iprat 2.5/0.5MG 3 ML AMPUL.NEB INHALE ×6 (01:00→21:07)
[2022-05-28] MEDS: 0.9 % Sodium Chloride Flush 3 ML SYRINGE IVFLUSH ×2 (01:15→22:47)
--- NOTE | 2022-05-28 01:23 | HO.PSYCHPN ---
Subjective Subjective Date of Service: 05/27/22 Reason For Visit: Heart failure exacerbation Interim History: Adilson is a 61 y.o. male who carries a dx of schizophrenia, dementia. He comes from [facility] nursing facility. He [place] [facility] [place] due to edema, orthopnea, SOB due to complications of CHF, BNP nearly 1999, CXR shows diffuse infiltrate. Pt was admitted for further management of CHF, given IV lasix. He has co-morbid medical diagnoses of cirrhosis, hepatic encephalopathy, right tentorial subdural hematoma, chronic anemia, chronic kidney disease stage 3 (Cr is elevated, 2.4-2.5 at baseline), and Parkinson?s (on?sinemet, cogentin).? Pt was transferred to the ICU on May 19 after a code blue on the floor thought to be secondary to vomiting and aspiration, with a chunk of meat removed from the hypopharynx on intubation.?Has ROSC after 2 min CPR, with one dose epi.?He was transferred to the ICU and put on Unasyn, although his CXR showed no clear infiltrate. Pt has remained with AMS. For undetermined reasons (mult head CTs and MRI unrevealing; EEG showed generalized slowing), his mental status never returned to baseline after his [place] [facility] [place] due to hepatic encephalopathy and ERNST, even though his ammonia level normalized.?According to Dr. Moon (who knows him well), after he got back to [facility], his level of animation was about half of what it was previously, and he was not walking at all. According to the staff at [facility], up until February of this year, he was reasonably high functioning, talked to people, got around mostly in a wheelchair, could walk to the bathroom himself, transfer from chair to bed by himself. However, he has been steadily decompensating and remains confused. Very suggestive that either his dementia and or his Parkinson's and or schizophrenia are getting worse. Psych consult placed for medication due to recommendation to just continue his Sinemet, hold his other [employer] meds including prolixin MARTINEZ 25 mg and Cogentin. I spoke with pt?s psychiatrist, Dr. Stanley Wang at [facility]. Per provider, geodon was stopped 04/04/22 due concern for pt?s medical complications, this was also stopped upon admission to ICU on 05/20 due to cardiac arrest- so it appears that pt did not receive any geodon during this admission. Dr. Wang reports he planned to taper the fluphenazine due to his co-morbid medical issues and worsening cognition s/p discharge from his admission in March. I attempted to evaluate the pt today and per RN he was talking minimally yesterday, not really talking today, making vocalizations. Mental Status Exam Mental Status Exam Narrative: Alert but not oriented, recently extubated, making vocalizations but not talking. Overweight, in hospital attire. Poor eye contact, inattentive. No Tics or Tremors noticed. No abnormal involuntary movements. Calm, no agitation. Affect is somewhat flat, sedated. No safety concerns. Insight/ Judgment poor. Diagnostics Vital Signs (24Hr): Vital Signs - 24 hr 05/27/22 02:00 05/27/22 03:00 05/27/22 04:00 Temperature Pulse Rate 71 72 71 Respiratory Rate 17 21 H 12 Blood Pressure 162/60 H 175/67 H 172/61 H Pulse Oximetry 95 95 95 Oxygen Delivery Method Nasal Cannula Nasal Cannula Nasal Cannula Oxygen Flow Rate 2 2 2 05/27/22 05:00 05/27/22 05:58 05/27/22 04:42 Temperature Pulse Rate 73 72 72 Respiratory Rate 21 H 19 20 Blood Pressure 162/62 H 158/50 H Pulse Oximetry 95 95 Oxygen Delivery Method Nasal Cannula Nasal Cannula Oxygen Flow Rate 2 2 05/27/22 07:00 05/27/22 07:34 05/27/22 13:00 Temperature 98.7 F Pulse Rate 71 68 68 Respiratory Rate 18 15 17 Blood Pressure 167/52 H 155/46 H Pulse Oximetry 97 98 Oxygen Delivery Method Nasal Cannula Nasal Cannula Oxygen Flow Rate 2 1 05/27/22 08:00 05/27/22 09:00 05/27/22 10:00 Temperature 98.4 F Pulse Rate 72 69 70 Respiratory Rate 14 17 18 Blood Pressure 162/56 H 156/50 H 165/57 H Pulse Oximetry 96 96 96 Oxygen Delivery Method Nasal Cannula Nasal Cannula Nasal Cannula Oxygen Flow Rate 2 2 1 05/27/22 11:00 05/27/22 11:21 05/27/22 12:00 Temperature 98.8 F Pulse Rate 73 72 71 Respiratory Rate 19 18 18 Blood Pressure 161/56 H 157/46 H Pulse Oximetry 97 96 Oxygen Delivery Method Nasal Cannula Nasal Cannula Oxygen Flow Rate 1 1 05/27/22 14:00 05/27/22 15:00 05/27/22 16:00 Temperature 98.7 F Pulse Rate 64 66 67 Respiratory Rate 16 17 16 Blood Pressure 135/56 L 154/59 H 157/61 H Pulse Oximetry 98 99 99 Oxygen Delivery Method Nasal Cannula Nasal Cannula Nasal Cannula Oxygen Flow Rate 1 1 1 05/27/22 17:00 05/27/22 18:00 05/27/22 19:00 Temperature Pulse Rate 67 69 68 Respiratory Rate 16 19 20 Blood Pressure 154/58 H 155/55 H 161/50 H Pulse Oximetry 94 94 92 Oxygen Delivery Method Room Air Room Air Room Air Oxygen Flow Rate 05/27/22 20:29 05/27/22 20:00 05/27/22 21:00 Temperature 98.6 F Pulse Rate 67 67 72 Respiratory Rate 17 16 19 Blood Pressure 150/55 H 165/54 H Pulse Oximetry 91 L 94 Oxygen Delivery Method Room Air Room Air Oxygen Flow Rate 05/27/22 22:00 05/27/22 23:00 05/28/22 00:00 Temperature Pulse Rate 69 70 70 Respiratory Rate 18 19 Blood Pressure 153/58 H 143/54 H 148/43 H Pulse Oximetry 91 L 94 91 L Oxygen Delivery Method Room Air Room Air Room Air Oxygen Flow Rate 05/28/22 01:00 05/28/22 01:02 Temperature Pulse Rate 71 72 Respiratory Rate 21 H Blood Pressure 150/50 H Pulse Oximetry 92 Oxygen Delivery Method Room Air Oxygen Flow Rate BMI result Body Mass Index 36.1 Labs Results: 05/27/22 05:40 05/27/22 05:40 Labs: Laboratory Results - last 48 hr 05/26/22 05/26/22 05/26/22 01:20 05:05 05:05 WBC 3.9 L RBC 2.43 L Hgb 7.5 L Hct 22.8 L MCV 93.8 MCH 30.9 MCHC 32.9 RDW 18.0 H Plt Count 46 L MPV 10.4 Absolute Nucleated RBC 0.000 Nucleated RBC % (auto) 0.0 PT INR O2 Saturation ABG pH at Pt Temp ABG pCO2 at Pt Temp ABG pO2 at Pt Temp ABG HCO3 ABG Base Excess (Actual) VBG pH VBG pCO2 VBG pO2 VBG HCO3 VBG O2 Saturation VBG Base Excess Sodium Potassium Chloride Carbon Dioxide Anion Gap BUN Creatinine Estim Creat Clear Calc Estimated GFR POC Glucose 234 H Random Glucose Calcium Phosphorus Magnesium Total Bilirubin AST ALT Alkaline Phosphatase Ammonia Troponin I High Sens B-Natriuretic Peptide 3024 H Total Protein Albumin 05/26/22 05/26/22 05/26/22 05:05 05:16 06:18 WBC RBC Hgb Hct MCV MCH MCHC RDW Plt Count MPV Absolute Nucleated RBC Nucleated RBC % (auto) PT INR O2 Saturation ABG pH at Pt Temp ABG pCO2 at Pt Temp ABG pO2 at Pt Temp ABG HCO3 ABG Base Excess (Actual) VBG pH 7.48 H VBG pCO2 40 VBG pO2 43 VBG HCO3 31 H VBG O2 Saturation 72.0 VBG Base Excess 7.3 Sodium 146 H Potassium 3.6 Chloride 108 Carbon Dioxide 27 Anion Gap 15 BUN 52 H Creatinine 2.81 H Estim Creat Clear Calc 35.5 Estimated GFR 23 POC Glucose 224 H Random Glucose 266 H Calcium 8.2 L Phosphorus 3.7 Magnesium 2.0 Total Bilirubin 1.6 H AST 48 H ALT 6 Alkaline Phosphatase 50 Ammonia Troponin I High Sens B-Natriuretic Peptide Total Protein 5.5 L Albumin 3.0 L 05/26/22 05/26/22 05/26/22 11:27 12:02 14:14 WBC RBC Hgb Hct MCV MCH MCHC RDW Plt Count MPV Absolute Nucleated RBC Nucleated RBC % (auto) PT INR O2 Saturation ABG pH at Pt Temp ABG pCO2 at Pt Temp ABG pO2 at Pt Temp ABG HCO3 ABG Base Excess (Actual) VBG pH VBG pCO2 VBG pO2 VBG HCO3 VBG O2 Saturation VBG Base Excess Sodium Potassium Chloride Carbon Dioxide Anion Gap BUN Creatinine Estim Creat Clear Calc Estimated GFR POC Glucose 182 H Random Glucose Calcium Phosphorus Magnesium Total Bilirubin AST ALT Alkaline Phosphatase Ammonia Troponin I High Sens 102.4 H* D 91.3 H B-Natriuretic Peptide Total Protein Albumin 05/26/22 05/26/22 05/27/22 17:44 23:56 05:40 WBC RBC Hgb Hct MCV MCH MCHC RDW Plt Count MPV Absolute Nucleated RBC Nucleated RBC % (auto) PT INR O2 Saturation ABG pH at Pt Temp ABG pCO2 at Pt Temp ABG pO2 at Pt Temp ABG HCO3 ABG Base Excess (Actual) VBG pH VBG pCO2 VBG pO2 VBG HCO3 VBG O2 Saturation VBG Base Excess Sodium Potassium Chloride Carbon Dioxide Anion Gap BUN Creatinine Estim Creat Clear Calc Estimated GFR POC Glucose 172 H 150 H Random Glucose Calcium Phosphorus Magnesium Total Bilirubin AST ALT Alkaline Phosphatase Ammonia 27 Troponin I High Sens B-Natriuretic Peptide Total Protein Albumin 05/27/22 05/27/22 05/27/22 05:40 05:40 05:40 WBC 5.7 RBC 2.66 L Hgb 8.3 L Hct 25.1 L MCV 94.4 MCH 31.2 MCHC 33.1 RDW 18.1 H Plt Count 71 L D MPV 10.9 Absolute Nucleated RBC 0.000 Nucleated RBC % (auto) 0.0 PT 14.3 H INR 1.2 H O2 Saturation ABG pH at Pt Temp ABG pCO2 at Pt Temp ABG pO2 at Pt Temp ABG HCO3 ABG Base Excess (Actual) VBG pH VBG pCO2 VBG pO2 VBG HCO3 VBG O2 Saturation VBG Base Excess Sodium 149 H Potassium 3.3 Chloride 107 Carbon Dioxide 31 H Anion Gap 14 BUN 57 H Creatinine 2.70 H Estim Creat Clear Calc 35.4 Estimated GFR 24 POC Glucose Random Glucose 181 H Calcium 8.7 D Phosphorus 4.1 Magnesium 1.8 Total Bilirubin AST ALT Alkaline Phosphatase Ammonia Troponin I High Sens B-Natriuretic Peptide Total Protein Albumin 3.0 L 05/27/22 05/27/22 05/27/22 05:44 06:07 12:12 WBC RBC Hgb Hct MCV MCH MCHC RDW Plt Count MPV Absolute Nucleated RBC Nucleated RBC % (auto) PT INR O2 Saturation TNP ABG pH at Pt Temp TNP ABG pCO2 at Pt Temp TNP ABG pO2 at Pt Temp TNP ABG HCO3 TNP ABG Base Excess (Actual) TNP VBG pH 7.50 H VBG pCO2 44 VBG pO2 53 VBG HCO3 35 H VBG O2 Saturation 83.0 VBG Base Excess 11.1 Sodium Potassium Chloride Carbon Dioxide Anion Gap BUN Creatinine Estim Creat Clear Calc Estimated GFR POC Glucose 155 H 144 H Random Glucose Calcium Phosphorus Magnesium Total Bilirubin AST ALT Alkaline Phosphatase Ammonia Troponin I High Sens B-Natriuretic Peptide Total Protein Albumin 05/27/22 05/27/22 16:31 21:10 WBC RBC Hgb Hct MCV MCH MCHC RDW Plt Count MPV Absolute Nucleated RBC Nucleated RBC % (auto) PT INR O2 Saturation ABG pH at Pt Temp ABG pCO2 at Pt Temp ABG pO2 at Pt Temp ABG HCO3 ABG Base Excess (Actual) VBG pH VBG pCO2 VBG pO2 VBG HCO3 VBG O2 Saturation VBG Base Excess Sodium Potassium Chloride Carbon Dioxide Anion Gap BUN Creatinine Estim Creat Clear Calc Estimated GFR POC Glucose 137 H 140 H Random Glucose Calcium Phosphorus Magnesium Total Bilirubin AST ALT Alkaline Phosphatase Ammonia Troponin I High Sens B-Natriuretic Peptide Total Protein Albumin Imaging Radiology Impressions: ITS Impressions Chest X-Ray 05/17/22 14:25 IMPRESSION: Persistent but improved bilateral diffuse airspace disease. Abdomen/Pelvis CT 05/17/22 14:34 IMPRESSION: Very limited exam due to motion artifact. Cirrhotic appearing liver, varices and splenomegaly. No ascites. Constipation. Fleischner guidelines were followed. Hip/Pelvis X-Ray 05/18/22 21:28 IMPRESSION: Mild bilateral hip osteoarthritis without acute fracture. Chest X-Ray 05/19/22 20:45 IMPRESSION: Lines and tubes in position as described above. Chest X-Ray 05/23/22 14:27 IMPRESSION: Nasogastric tube projects over stomach, tip not seen. Satisfactory position of right jugular line and endotracheal tube. Slight interval increase in bilateral multilobar airspace disease from 05/19/2022 exam. Medications Medications Current Medications Acetazolamide (Acetazolamide Sodium 500 Mg Vial) 500 mg IVPUSH BID [facility] Last Admin: 05/27/22 21:09 Dose: 500 mg Albuterol/Ipratropium (Albuterol/Iprat 2.5/0.5mg 3 Ml Ampul.Neb) 3 ml INHALE Q4H [facility] Last Admin: 05/28/22 01:00 Dose: 3 ml Amlodipine Besylate (Amlodipine Besylate 10 Mg Tablet) 10 mg PO DAILY [facility]; Protocol Last Admin: 05/27/22 11:12 Dose: Not Given Carbidopa/Levodopa (Carbidopa/Levodopa 25/100 Tablet) 1 tab PO QID [facility] Last Admin: 05/28/22 00:09 Dose: Not Given Chlorhexidine Gluconate (Chlorhexidine Gluc Oral Rinse 15 Ml Mouthwash) 15 ml BUCCAL TID [facility] Last Admin: 05/27/22 21:38 Dose: Not Given Fentanyl (Fentanyl Citrate/Pf 100 Mcg/2 Ml Vial) 50 mcg IVPUSH Q5M PRN; Protocol PRN Reason: pain or WOB Last Admin: 05/25/22 17:27 Dose: 50 mcg Heparin Sodium (Porcine) (Heparin Sodium,Porcine 5,000 Unit/Ml Vial) 5,000 unit SUBCUT Q8H [facility] Last Admin: 05/27/22 21:08 Dose: 5,000 unit Furosemide 500 mg/ IV (Miscellaneous Supplies) 50 mls @ 0.8 mls/hr IVCONT .Q24H [facility] Last Infusion: 05/27/22 17:29 Dose: 8 mg/hr, 0.8 mls/hr Insulin Human Lispro (Insulin Lispro 100 Unit/Ml 3 Ml Vial) 0 unit SUBCUT QIDACHS [facility]; Protocol Last Admin: 05/27/22 21:57 Dose: Not Given Lactulose (Lactulose 20 Gm/30 Ml Solution) 20 gm OG-TUBE Q6H [facility] Last Admin: 05/22/22 20:46 Dose: 20 gm Levothyroxine Sodium (Levothyroxine Sodium 25 Mcg Tablet) 25 mcg PO DAILY@0600 [facility] Last Admin: 05/27/22 05:58 Dose: 25 mcg Metoprolol Tartrate (Metoprolol Tartrate 25 Mg Tablet) 25 mg PO BID [facility]; Protocol Last Admin: 05/28/22 00:09 Dose: Not Given Modafinil (Modafinil 100 Mg Tablet) 200 mg PO DAILY [facility] Last Admin: 05/27/22 11:17 Dose: Not Given Omeprazole (Omeprazole 20 Mg/10 Ml Susp.Recon) 40 mg G-TUBE DAILY@0630 [facility] Last Admin: 05/27/22 05:58 Dose: 40 mg Pharmacy Consult (Consult Rx Perform Med Rec) 1 each MISCELLANE ONCE PRN PRN Reason: Consult order Sodium Chloride (0.9 % Sodium Chloride Flush 3 Ml Syringe) 3 ml IVFLUSH QSHIFT [facility] Last Admin: 05/28/22 01:15 Dose: 3 ml Allergies Allergies Allergy/AdvReac Type Severity Reaction Status Date / Time pollen extracts Allergy Unknown Verified 03/20/22 13:42 ragweed pollen Allergy Unknown Verified 03/20/22 13:42 Assessment & Plan Assessment & Plan (1) Parkinson disease: Status: Acute Code(s): G20 - Parkinson's disease (2) Toxic metabolic encephalopathy: Status: Acute Code(s): G92.8 - Other toxic encephalopathy (3) Type 2 diabetes mellitus with diabetic polyneuropathy: Status: Acute Code(s): E11.42 - Type 2 diabetes mellitus with diabetic polyneuropathy (4) Respiratory arrest associated with feeding: Status: Acute Code(s): R09.2 - Respiratory arrest (5) Schizophrenia: Status: Acute Code(s): F20.9 - Schizophrenia, unspecified (6) Cirrhosis: Status: Acute Code(s): K74.60 - Unspecified cirrhosis of liver (7) Acute on chronic diastolic (congestive) heart failure: Status: Acute Code(s): I50.33 - Acute on chronic diastolic (congestive) heart failure (8) Acute kidney injury superimposed on chronic kidney disease: Status: Acute Code(s): N17.9 - Acute kidney failure, unspecified; N18.9 - Chronic kidney disease, unspecified Plan Plan: Recommend to hold prolixin MARTINEZ 25 mg [id number] and monitor for worsening psychosis. Pt no longer on Geodon. If pt becomes agitated, would recommend seroquel low dose i.e. 25-50 mg Q6H PRN due to pt having parkinsonian dementia. Would avoid high potency neuroleptics, anticholinergic agents, or benzodiazepines. Pt was started on provigil in the ICU to help with lethargy. Will monitor for activating side effects. Thank you for this consultation. If you have any questions or concerns, please do not hesitate to contact psychiatry service. I spent minutes with the patient and/or on the patient floor today, greater than?50% of which was spent counseling/coordinating care. Patient educated on: medication risk/benefits Reason for contiued inpatient stay Substantial Risk for: inability to function and rapid decompensation
[2022-05-28 05:39] LABS: VBG Base Excess 15.4 mmol/L; VBG HCO3 39 mmol/L (22-26); VBG pCO2 46 mmHg; VBG pH 7.53 (7.32-7.43); VBG pO2 56 mmHg
[2022-05-28 05:41] LABS: Venous Blood Gas Refer to POC result
[2022-05-28 05:57] LABS: Anion Gap 15 (12-20); Blood Urea Nitrogen 60 mg/dL (9-16); Calcium 8.8 mg/dL (8.4-10.2); Carbon Dioxide 33 mmol/L (22-29); Chloride 104 mmol/L (96-108); Creatinine Clr Calc Pharmacy 35.7; Estimated Glomerular Filt Rate 24; Glucose Random 150 mg/dL (60-115); Phosphorus 4.4 mg/dL (2.7-4.5); Potassium 3.4 mmol/L (3.3-5.1); Sodium 149 mmol/L (135-145)
[2022-05-28 06:02] LABS: B Type Natriuretic Peptide 2539 pg/mL (<100)
[2022-05-28] MEDS: Heparin Sodium,Porcine 5,000 UNIT/ML VIAL 5000 UNIT SUBCUT ×3 (06:04→22:36)
[2022-05-28 08:13] LABS: Glucose, Whole Blood 133 mg/dL (60-115)
[2022-05-28] MEDS: acetaZOLAMIDE sodium 500 MG VIAL IVPUSH ×3 (08:29→22:36)
--- NOTE | 2022-05-28 08:31 | PC.NURSE ---
Addendum entered by Vidal Ma RN 05/28/22 16:38: pt bathed multiple times this shift. Addendum entered by Vidal Ma RN 05/28/22 11:47: informed MD of pt's elevated BP. no new orders at this time Addendum entered by Vidal Ma RN 05/28/22 11:41: MD OK'ed use of NGT Addendum entered by Vidal Ma RN 05/28/22 11:40: advanced NGT to 72 after assessing XR Addendum entered by Vidal Ma RN 05/28/22 10:29: md informed of pt's BP. per md administer all po meds that were not given this AM. pt to be xfer to [facility] Addendum entered by Vidal Ma RN 05/28/22 08:57: Manny feeding tube placed by MD in right nare @ 65. lido used by md. XR ordered Original Note: informed md of pt's mental status and neuro exam. safety and fall precautions maintained. restraints in place. pt assessed per protocol. pt repo'ed q2. md informed pt is npo and most meds are po, ? transition PO to IV.
[2022-05-28] MEDS: Metoprolol Tartrate 25 MG TABLET PO ×2 (10:06→22:37)
[2022-05-28] MEDS: Carbidopa/Levodopa 25/100 TABLET 1 TAB PO ×4 (10:07→22:38)
[2022-05-28] MEDS: Levothyroxine Sodium 25 MCG TABLET PO (10:07)
[2022-05-28] MEDS: modafiniL 100 MG TABLET 200 MG PO (10:07)
[2022-05-28] MEDS: amLODIPine Besylate 10 MG TABLET PO (10:07)
--- NOTE | 2022-05-28 10:08 | P.PNCC_ITS ---
Subjective Subjective Date of Service: 05/28/22 Interval History: Mr. Blackburn was transferred to the ICU on May 19 after a code blue on the floor. The patient is a 61-year-old gentleman with underlying history of alcoholic cirrhosis, dementia, ataxia, Parkinson?s disease, schizophrenia, and diastolic heart failure.? He is a resident of [facility].? He takes lactulose and rifaximin at the home.? According to the staff at [facility], up until February of this year, he was reasonably high functioning, talked to people, got around mostly in a wheelchair, but could walk to the bathroom himself, transfers chair to bed by himself. I know him and remember him well bec in February, he was hospitalized at [facility] for hepatic encephalopathy and ERNST.? He required a 10 day stay in the ICU for refractory encephalopathy, but improved enough without requiring intubation.? He was discharged on March 15 with a creat of 2.2 (baseline was normal prior to that hospitalization).? For undetermined reasons (mult head CTs and MRI unrevealing; EEG showed generalized slowing), his mental status never returned to baseline, even though his ammonia level normalized. ?According to Dr. Moon (who knows him well), after he got back to [facility], his level of animation was about half of what it was previously, and he was not walking at all.? It had been my opinion at that February hospitalization that if he wound up intubated, he?d probably wind up with a tracheostomy and PEG.? Mr. Blackburn was hospitalized again March 20- for worsened encephalopathy, manifest as agitation and behavioral disturbances.? Was thought secondary to general deconditioning and advanced Parkinsonism, dementia, and schizophrenia.? Treated by decreasing the dose of gabapentin and holding loratadine and tramadol.? Required multiple doses of Haldol and Ativan to control his agitation.? Psychiatry recommended Seroquel and Ativan as needed.? His mental status improved back to what seemed to be his baseline, alert and interactive but overall disoriented. HISTORY OF PRESENT ILLNESS:? The patient was brought back on May 17 with CHF, leg edema, and weight gain.? BNP was 1919.? BUN/creatinine were 35/2.5.? Ammonia level was 26.? He was admitted to Medicine and diuresed.? During hospitalization, the patient became increasingly confused.? Was seen by Psychiatry on May 19.? Reportedly, at [facility] the patient had been on ziprasidone and fluphenazine, along with Geodon, for psychotic symptoms.? They recommended restarting the Geodon, and adding prn Seroquel and Ativan. That night, the patient had a PEA Code Blue, thought secondary to vomiting and aspiration, with a chunk of meat removed from the hypopharynx on intubation.? Has ROSC after 2 min CPR, with one dose epi.? He was transferred to the ICU and put on Unasyn, altho his CXR showed no clear infiltrate. ECHOCARDIOGRAM on May 20 was notable for mildly increased left ventricular wall thickness with hyperdynamic LV function, EF greater than 70%.? There was diastolic dysfunction with elevated filling pressures.? RV cavity size was mildly increased, with normal RVSP.? The IVC was dilated with no inspiratory collapse.? (In contrast, the echo from February showed normal RV size with mildly dilated IVC and less than 50% inspiratory collapse.) It took five days for the patient to regain his mental status, but finally on May 26 he was awake and interactive ?enough? to extubate, which we did with no problem.? He?s been breathing easy w no airway problems since then. This morning, he arouses with moderate prompting, and when he?s awake, he tracks readily.? But it takes very vigorous prompting to get him to be purposefully interactive (e.g. to nod his head in response to questions), and he goes back to sleep quickly.? He is not talking at all, not making any sounds.? He moves all 4 spontaneously.? HR 70s, SR.? BP 167/50.? For the last 48 hours he has not been able to take anything orally, so he did not get his Provigil or his amlodipine, metoprolol, or Sinemet for two days. ?On 1.5L NC, Sat is 95%.? CVBG this morning showed 7.53/46/+15.? Afebrile.? PERR, about 5mm.? No JVD at 30?.? Chest CTA, w normal exp phase.? Regular rate and rhythm, normal-sounding S1 and S2, with no murmur or gallops.? The abdomen is benign.? He has 1+ anasarca, definitely less than yesterday, with decreased scrotal edema compared with yesterday, and down by more than 2/3 from its worst.? Urine is clear yellow.? He?s on Heparin 5000u tid. He has a 1/2 x 3 cm stage 2 decubitus on his? coccyx, a 1 cm DTI on his medial right buttock, and a 3 x 3 DTI on his left buttock I&O:? U/o 5740 cc last 24hrs, on Lasix 8mg/hour.? Negative 5.4L.? Now negative 15.8L for this hosp stay. LABORATORY DATA: As below.? Notably, Sodium is up to 149.? BUN up slightly, creatinine down slightly on the Lasix, potassium 3.4. MICROBIOLOGY:? Sputum Gram stain from 05/23 showed 4+ polys, 1+ yeast.? Culture grew 1+ sensitive Klebsiella, and 1+ yeast. ANTIBIOTICS:? 5 days of Unasyn ended May 24. IMAGING: Last CXR on 05/23 showed bilateral infiltrates, CHF vs ARDS. IMPRESSION: 1. Underlying Parkinson?s dz, on Sinemet. 2. Underlying schizophrenia. 3. Underlying dementia. 4. Underlying alcoholic cirrhosis. 5. Underlying hepatic encephalopathy.? Continuing the rifaximin.? Restart the lactulose when his ammonia level rises.? Check ammonia level QOD. 6. Admitted with AMS.? His baseline mental status was severely deteriorated since his hospitalization in February.? Very suggestive that either his dementia and/or his Parkinson's and/or schizophrenia are getting worse.? His mental status now is even worse.? At this point, the only thing we need to continue is his Sinemet.? I discussed with Melonie Pacheco from Psychiatry what to do about his fluphenazine, benztropine, and gabapentin.? She checked with his psychiatrist at [facility].? We?re all in agreement that he does not need to continue any of those, especially the gabapentin. 7. Status post cardiac arrest. 8. Presumed aspiration pneumonia.? Was treated w a 5-day course of Unasyn, altho I?m not sure he needed that.? The sputum gram stain and cx are unremarkable. 9. Encephalopathy.? Seems to have recovered from the cardiac arrest to or close to his baseline.? The cardiac arrest was brief enough that he doesn?t seem to have suffered much additional cerebral insult.? I?m hoping that the Provigil will get him more awake and interactive. 10. Hypoxemic resp failure.? Was most likely CHF.? Much improved after vigorous diuresis. 11. ERNST.? Creat improving but the ratio is climbing.? We?ve just about reached his limit for diuresis.?? I stopped the Diuril yesterday, I?ll drop the Lasix dose down to 3 mg/hr. 12. Diastolic heart failure and right heart failure.? Approaching the limit for diuresis. 13. Massive anasarca.? 2? above factors.? Hugely improved over last six days, 14. Metabolic alkalosis.? Secondary to vigorous diuresis.? I?ll increase his dose of Diamox. 15. DM.? On SS insulin. 16. Anemia -- acute on chronic.? F/u hemoccult was negative again.? Undoubtedly has ACD. 17. Leukopenia.? Chronic. 18. Thrombocytopenia.? Chronic.? May be related to his liver disease. 19. Hypokalemia.? Repleted enterally. 20. Hypomagnesemia.? Repleted. 21. Mild coagulopathy.? 2? liver disease.? Corrected after 50 mg Vit K. 22. Decubitus ulcers, as above.? Usual care. 23. Nutrition.? I think the days of Adilson taking anything orally are over.? He needs a feeding tube.? Discussed with Dr. Berry from GI yesterday at great length.? She reviewed the CT scan.? Because of his ascites, he?ll likely need a surgical gastrostomy.? Have consulted Dr. Lizarraga.? An alternative is for a percutaneous Gtube by IR under CT guidance to avoid his varices.? In the meantime, I put a KO feed tube down today for feeding and for his Sinemet. 24. Code status.? Discussed with Dr. Moon at some length.? In our opinion, Adilson's quality of life is getting much worse.? If he gets intubated again, it?s going to result in a tracheostomy and PEG, and no quality of life.? Neither of us feel that that would be in his interest.? He should have DNR/DNI status, maybe even BAT[employer]SEM[employer]ER [employer] status.? I discussed that on May 26 with his guardian, Tanesha Pruitt ([phone]).? She agrees, but a court order would be needed to e stablish the DNR status.? She said that she has never done that before, and she does not think that the attorneys in her office have done it.? I discussed that with Mila Mulligan from [employer], and asked her to patino the process with [facility] and Mrs. Pruitt so that we could get the DNR/DNI status done within the next few days, in case something happens.? In the meantime, if something does happen, Adilson will have to be reintubated. I called Ms. Pruitt again yesterday and discussed the feeding tube.? She agrees and will give consent when we schedule the procedure. Stable for transfer to [facility].? I will sign out to the hospitalists. Critical Care Time (minutes): 0 Physical Exam Vital Signs: Vital Signs: Last Vital Signs Temp 98.6 F 05/28/22 09:00 Pulse 75 05/28/22 09:00 Resp 26 H 05/28/22 09:00 BP 167/50 H 05/28/22 09:00 Pulse Ox 90 L 05/28/22 09:00 O2 Del Method 05/28/22 09:00 O2 Flow Rate 2 05/28/22 09:00 FiO2 25 05/26/22 09:00 BMI result Body Mass Index 34.4 Objective Data Labs CBC & Chem 7: 05/27/22 05:40 05/28/22 05:38 Labs: Laboratory Results - last 24 hr 05/27/22 05/27/22 05/27/22 12:12 16:31 21:10 VBG pH VBG pCO2 VBG pO2 VBG HCO3 VBG O2 Saturation VBG Base Excess Sodium Potassium Chloride Carbon Dioxide Anion Gap BUN Creatinine Estim Creat Clear Calc Estimated GFR POC Glucose 144 H 137 H 140 H Random Glucose Calcium Phosphorus Magnesium B-Natriuretic Peptide 05/28/22 05/28/22 05/28/22 05:34 05:38 05:38 VBG pH 7.53 H VBG pCO2 46 VBG pO2 56 VBG HCO3 39 H VBG O2 Saturation 87.0 VBG Base Excess 15.4 Sodium 149 H Potassium 3.4 Chloride 104 Carbon Dioxide 33 H Anion Gap 15 BUN 60 H Creatinine 2.68 H Estim Creat Clear Calc 35.7 Estimated GFR 24 POC Glucose Random Glucose 150 H Calcium 8.8 Phosphorus 4.4 Magnesium 2.0 B-Natriuretic Peptide 2539 H 05/28/22 08:10 VBG pH VBG pCO2 VBG pO2 VBG HCO3 VBG O2 Saturation VBG Base Excess Sodium Potassium Chloride Carbon Dioxide Anion Gap BUN Creatinine Estim Creat Clear Calc Estimated GFR POC Glucose 133 H Random Glucose Calcium Phosphorus Magnesium B-Natriuretic Peptide Microbiology Microbiology Results: Microbiology 05/23/22 14:47 Sputum - Suctioned Gram Stain - Final 05/23/22 14:47 Sputum - Suctioned Sputum Culture - Final Klebsiella pneumoniae Yeast 05/20/22 00:48 Blood - Venous Blood Culture - Final No growth after 5 days. 05/20/22 00:48 Blood - Venous Blood Culture - Final No growth after 5 days. 05/17/22 17:00 Blood - Venous Blood Culture - Final No growth after 5 days. 05/17/22 16:10 Blood - Venous Blood Culture - Final No growth after 5 days. Quality Stroke Does the patient have a stroke diagnosis?: No VTE Prior VTE?: No VTE Risk Level:: Medical - moderate - high VTE Device Contraindication: Treatment Not Indicated VTE Drug Contraindication: N/A - Med Ordered
[2022-05-28] MEDS: Potassium Chloride Packet 20 MEQ PACKET 40 MEQ G-TUBE ×3 (10:15→22:40)
[2022-05-28 11:34] LABS: Glucose, Whole Blood 138 mg/dL (60-115)
[2022-05-28 16:03] LABS: Glucose, Whole Blood 176 mg/dL (60-115)
[2022-05-28] MEDS: Insulin Lispro 100 UNIT/ML 3 ML VIAL SUBCUT ×2 (16:15→22:37)
[2022-05-28 20:27] LABS: Glucose, Whole Blood 178 mg/dL (60-115)
[2022-05-28] MEDS: Chlorhexidine Gluc Oral Rinse 15 ML MOUTHWASH BUCCAL (22:36)
[2022-05-29] VITALS (9 sets, daily range): BP systolic 157–179; BP diastolic 70–98; PULSE 59–66; RESP 17–18; TEMP 36.7–37.4; O2SAT 93–99; BMI 32.5
[2022-05-29] MEDS: acetaZOLAMIDE sodium 500 MG VIAL IVPUSH ×4 (04:38→23:43)
[2022-05-29] MEDS: Levothyroxine Sodium 25 MCG TABLET PO (05:48)
[2022-05-29] MEDS: Heparin Sodium,Porcine 5,000 UNIT/ML VIAL 5000 UNIT SUBCUT ×3 (05:51→23:43)
[2022-05-29 06:46] LABS: Venous Blood Gas Refer to POC result
[2022-05-29 06:47] LABS: Hematocrit 26.6 % (42.0-52.0); Hemoglobin 8.7 g/dl (14.0-18.0); Mean Corpuscular HGB Conc 32.7 g/dl (31.0-36.0); Mean Corpuscular Hemoglobin 30.9 pg (27.0-33.0); Mean Corpuscular Volume 94.3 fL (80.0-98.0); Mean Platelet Volume 11.2 fL (9.4-12.4); Platelet Count 101 X10*3/uL (160-400); Red Blood Count 2.82 X10*6/uL (4.60-5.80); Red Cell Distribution Width 17.1 % (11.0-16.0); White Blood Count 6.7 X10*3/uL (4.8-10.8)
[2022-05-29 06:47] LABS: VBG Base Excess 2.5 mmol/L; VBG HCO3 24 mmol/L (22-26); VBG pCO2 28 mmHg; VBG pH 7.54 (7.32-7.43); VBG pO2 154 mmHg
[2022-05-29 06:51] LABS: Ammonia 59 umol/L (13-55)
[2022-05-29 07:18] LABS: Alanine Aminotransferase 9 U/L (0-40); Alkaline Phosphatase 56 U/L (39-117); Anion Gap 15 (12-20); Aspartate Amino Transferase 30 U/L (5-37); Bilirubin Total 1.5 mg/dL (0.0-1.0); Blood Urea Nitrogen 64 mg/dL (9-16); Calcium 9.2 mg/dL (8.4-10.2); Carbon Dioxide 34 mmol/L (22-29); Chloride 105 mmol/L (96-108); Creatinine Clr Calc Pharmacy 33.5; Estimated Glomerular Filt Rate 24; Glucose Random 273 mg/dL (60-115); Magnesium 2.1 mg/dL (1.6-2.6); Phosphorus 3.9 mg/dL (2.7-4.5); Potassium 3.7 mmol/L (3.3-5.1); Sodium 150 mmol/L (135-145); Total Protein 5.9 g/dL (6.5-8.0)
[2022-05-29 08:30] LABS: Glucose, Whole Blood 222 mg/dL (60-115)
[2022-05-29] MEDS: Albuterol/Iprat 2.5/0.5MG 3 ML AMPUL.NEB INHALE ×3 (08:32→14:55)
[2022-05-29] MEDS: modafiniL 100 MG TABLET 200 MG PO (09:09)
[2022-05-29] MEDS: Carbidopa/Levodopa 25/100 TABLET 1 TAB PO ×4 (09:09→23:43)
[2022-05-29] MEDS: amLODIPine Besylate 10 MG TABLET PO (09:09)
[2022-05-29] MEDS: Insulin Lispro 100 UNIT/ML 3 ML VIAL SUBCUT ×4 (09:10→23:42)
[2022-05-29] MEDS: Metoprolol Tartrate 25 MG TABLET PO ×2 (09:10→23:43)
[2022-05-29] MEDS: Chlorhexidine Gluc Oral Rinse 15 ML MOUTHWASH BUCCAL ×3 (09:11→23:42)
--- NOTE | 2022-05-29 10:12 | HO.PM.IMPN ---
Subjective Subjective Date of Service: 05/29/22 Interval History: f/u on post ICU stay following PEA arrest, respiratory failure likely aspiration, encephalopathy He is pretty lethargic right now, I am not able to converse with him there is NGT in place, TLC He is planned a PEG this coming weak, Psych is being adjusting his medications Review of Systems Review of Systems: Yes Unobtainable due to mental status Physical Exam Vital Signs: Vital Signs: Last Vital Signs Temp 99.2 F 05/29/22 07:46 Pulse 64 05/29/22 08:37 Resp 18 05/29/22 08:37 BP 179/77 H 05/29/22 07:46 Pulse Ox 99 05/29/22 07:46 O2 Del Method 05/29/22 07:46 O2 Flow Rate 2 05/29/22 07:46 FiO2 25 05/26/22 09:00 BMI result Body Mass Index 32.5 Const: Other: General: lethargic but no distress, He is not talking at all, not making any sounds.? Resp: rohan rhonchi CVS: S1,S2,RRR--Swelling in all arms GI: +BS, NT, no distention Skin: No rash, He has a 1/2 x 3 cm stage 2 decubitus on his? coccyx, a 1 cm DTI on his medial right buttock, and a 3 x 3 DTI on his left buttock Neuro: motor grossly intact, He moves all 4 spontaneously. Psych: flat Objective Data Active Medications Acetazolamide (Acetazolamide Sodium 500 Mg Vial) 500 mg IVPUSH Q6H [facility] Last Admin: 05/29/22 09:08 Dose: 500 mg Documented By: ELY Albuterol/Ipratropium (Albuterol/Iprat 2.5/0.5mg 3 Ml Ampul.Neb) 3 ml INHALE Q4H [facility] Last Admin: 05/29/22 08:32 Dose: 3 ml Documented By: DELLA Amlodipine Besylate (Amlodipine Besylate 10 Mg Tablet) 10 mg PO DAILY [facility]; Protocol Last Admin: 05/29/22 09:09 Dose: 10 mg Documented By: ELY Carbidopa/Levodopa (Carbidopa/Levodopa 25/100 Tablet) 1 tab PO QID [facility] Last Admin: 05/29/22 09:09 Dose: 1 tab Documented By: ELY Chlorhexidine Gluconate (Chlorhexidine Gluc Oral Rinse 15 Ml Mouthwash) 15 ml BUCCAL TID [facility] Last Admin: 05/29/22 09:11 Dose: 15 ml Documented By: ELY Fentanyl (Fentanyl Citrate/Pf 100 Mcg/2 Ml Vial) 50 mcg IVPUSH Q5M PRN; Protocol PRN Reason: pain or WOB Last Admin: 05/25/22 17:27 Dose: 50 mcg Documented By: MARK Heparin Sodium (Porcine) (Heparin Sodium,Porcine 5,000 Unit/Ml Vial) 5,000 unit SUBCUT Q8H [facility] Last Admin: 05/29/22 05:51 Dose: 5,000 unit Documented By: GEOVANNA Furosemide 500 mg/ IV (Miscellaneous Supplies) 50 mls @ 0.3 mls/hr IVCONT .Q24H [facility] Last Infusion: 05/27/22 17:29 Dose: 8 mg/hr, 0.8 mls/hr Documented By: LASHANDA Insulin Human Lispro (Insulin Lispro 100 Unit/Ml 3 Ml Vial) 0 unit SUBCUT QIDACHS [facility]; Protocol Last Admin: 05/29/22 09:10 Dose: 4 unit Documented By: ELY Lactulose (Lactulose 20 Gm/30 Ml Solution) 20 gm OG-TUBE Q6H [facility] Last Admin: 05/22/22 20:46 Dose: 20 gm Documented By: CARMELITA Levothyroxine Sodium (Levothyroxine Sodium 25 Mcg Tablet) 25 mcg PO DAILY@0600 [facility] Last Admin: 05/29/22 05:48 Dose: 25 mcg Documented By: GEOVANNA Metoprolol Tartrate (Metoprolol Tartrate 25 Mg Tablet) 25 mg PO BID [facility]; Protocol Last Admin: 05/29/22 09:10 Dose: 25 mg Documented By: ELY Modafinil (Modafinil 100 Mg Tablet) 200 mg PO DAILY [facility] Last Admin: 05/29/22 09:09 Dose: 200 mg Documented By: ELY Omeprazole (Omeprazole 20 Mg/10 Ml Susp.Recon) 40 mg G-TUBE DAILY@0630 [facility] Last Admin: 05/29/22 05:48 Dose: 40 mg Documented By: GEOVANNA Pharmacy Consult (Consult Rx Perform Med Rec) 1 each MISCELLANE ONCE PRN PRN Reason: Consult order Sodium Chloride (0.9 % Sodium Chloride Flush 3 Ml Syringe) 3 ml IVFLUSH QSHIFT [facility] Last Admin: 05/29/22 09:10 Dose: Not Given Documented By: ELY Non-Admin Reason: IV Running Labs CBC & Chem 7: 05/29/22 06:36 05/29/22 06:36 Labs: Laboratory Results - last 24 hr 05/28/22 05/28/22 05/28/22 11:30 15:57 20:24 MCV MCH MCHC RDW Plt Count MPV Absolute Nucleated RBC Nucleated RBC % (auto) VBG pH VBG pCO2 VBG pO2 VBG HCO3 VBG O2 Saturation VBG Base Excess Anion Gap Estim Creat Clear Calc Estimated GFR POC Glucose 138 H 176 H 178 H Random Glucose Calcium Phosphorus Magnesium Total Bilirubin AST ALT Alkaline Phosphatase Ammonia Total Protein Albumin 05/29/22 05/29/22 05/29/22 06:35 06:36 06:36 MCV 94.3 MCH 30.9 MCHC 32.7 RDW 17.1 H Plt Count 101 L D MPV 11.2 Absolute Nucleated RBC 0.000 Nucleated RBC % (auto) 0.0 VBG pH VBG pCO2 VBG pO2 VBG HCO3 VBG O2 Saturation VBG Base Excess Anion Gap 15 Estim Creat Clear Calc 33.5 Estimated GFR 24 POC Glucose Random Glucose 273 H D Calcium 9.2 Phosphorus 3.9 Magnesium 2.1 Total Bilirubin 1.5 H AST 30 ALT 9 Alkaline Phosphatase 56 Ammonia 59 H Total Protein 5.9 L Albumin 3.0 L 05/29/22 05/29/22 06:43 07:49 MCV MCH MCHC RDW Plt Count MPV Absolute Nucleated RBC Nucleated RBC % (auto) VBG pH 7.54 H VBG pCO2 28 VBG pO2 154 VBG HCO3 24 VBG O2 Saturation 100.0 VBG Base Excess 2.5 Anion Gap Estim Creat Clear Calc Estimated GFR POC Glucose 222 H Random Glucose Calcium Phosphorus Magnesium Total Bilirubin AST ALT Alkaline Phosphatase Ammonia Total Protein Albumin Assessment and Plan (1) Acute on chronic diastolic (congestive) heart failure: Status: Acute Plan 61/m with CKD3, HTN, schizophrenia, diastolic CHF frequent hospitalization was admitted on 05/17 for anasarca, exacerbation of CHF, encephalopathy and was being diuressed, he became increasingly more confused, agitated and agressive with some adjustment t Psych meds..on 05/19 he vomitted and aspirated resulting in PEA arrest and was intubated and admitted to ICU with prolonged course and was finally extubated and [facility] with high concern of oral feeding in him again and therefore a PEG is planned 1. Underlying Parkinson?s dz, on Sinemet. 2. Underlying schizophrenia. 3. Underlying dementia. 4. Underlying alcoholic cirrhosis. 5. Underlying hepatic encephalopathy.? Continuing the rifaximin.? Restart the lactulose when his ammonia level rises.? Check ammonia level QOD. ?6. Admitted with AMS.? His baseline mental status was severely deteriorated since his hospitalization in February.? Very suggestive that either his dementia and/or his Parkinson's and/or schizophrenia are getting worse.? His mental status now is even worse.? At this point, the only thing we need to continue is his Sinemet.? I discussed with Melonie Pacheco from Psychiatry with following recommendation on 05/28 Recommend to hold prolixin MARTINEZ 25 mg [id number] and monitor for worsening psychosis. Pt no longer on Geodon. If pt becomes agitated, would recommend seroquel low dose i.e. 25-50 mg Q6H PRN due to pt having parkinsonian dementia. Would avoid high potency neuroleptics, anticholinergic agents, or benzodiazepines. Pt was started on provigil in the ICU to help with lethargy. Will monitor for activating side effects. . 7. Status post cardiac arrest. 8. Presumed aspiration pneumonia.? Was treated w a 5-day course of Unasyt.? The sputum gram stain and cx are unremarkable. 9. Encephalopathy.? Seems to have recovered from the cardiac arrest to or close to his baseline.? The cardiac arrest was brief enough that he doesn?t seem to have suffered much additional cerebral insult.? hoping that the Provigil will get him more awake and interactive. 10. Hypoxemic resp failure.? Was most likely CHF.? Much improved after vigorous diuresis. 11. ERNST.? Creat improving but the ratio is climbing.? We?ve just about reached his limit for diuresis.?? Diuril stopped 05/28, still on Lasix drip to be stopped at this time due to high sodium of 150 today 12. Diastolic heart failure and right heart failure.?Has been on IV Lasix 13. Massive anasarca.? 2? above factors.? Hugely improved, however remains edematous 14. Metabolic alkalosis.? Secondary to vigorous diuresis.? O Diamox. 15. DM.? On SS insulin. 16. Anemia -- acute on chronic.? F/u hemoccult was negative again.? Undoubtedly has anemia of chronic disease ( ACD). 17. Leukopenia.? Chronic. 18. Thrombocytopenia.? Chronic.? May be related to his liver disease. 19. Hypokalemia.? Repleted enterally. K is now normal 20. Hypomagnesemia.? Repleted and normnal 21. Mild coagulopathy.? 2? liver disease.? Corrected after 50 mg Vit K. 22. Decubitus ulcers, as above.? Usual care. 23. Nutrition.?we think the days of Adilson taking anything orally are over.? He needs a feeding tube.? Discussed with Dr. Berry from GI at great length.? She reviewed the CT scan.? Because of his ascites, he?ll likely need a surgical gastrostomy.? Have consulted Dr. Lizarraga.? An alternative is for a percutaneous Gtube by IR under CT guidance to avoid his varices.? In the meantime, has KO feed tube since 05/28 for feeding and for his Sinemet. 24. Code status.? Discussed with Dr. Moon at some length.? In our opinion, Adilson's quality of life is getting much worse.? If he gets intubated again, it?s going to result in a tracheostomy and PEG, and no quality of life.?We don't feel that that would be in his interest.? 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 Dr Myers discussed that on May 26 with his guardian, Tanesha Pruitt ([phone]).? She agrees, but a court order would be needed to establish the DNR status.? She said that she has never done that before, and she does not think that the attorneys in her office have done it.? Dr. Myers discussed that with Mila Mulligan from [employer], and asked her to patino the process with [facility] and Mrs. Pruitt so that we could get the DNR/DNI status done within the next few days, in case something happens.? In the meantime, if something does happen, Adilson will have to be reintubated. Full Code DVT Prophylaxis: Heparin Inpatient: Post ICU care, needs PEG for feeding and continuing pysch meds adjustment, remains altered not at baseline Quality Stroke Does the patient have a stroke diagnosis?: No VTE Prior VTE?: No VTE Risk Level:: Medical - moderate - high VTE Device Contraindication: Treatment Not Indicated VTE Drug Contraindication: N/A - Med Ordered
[2022-05-29] MEDS: Furosemide 500 MG in Container,Empty 0 ML IVCONT (10:19)
[2022-05-29 11:58] LABS: Glucose, Whole Blood 184 mg/dL (60-115)
[2022-05-29 16:09] LABS: Glucose, Whole Blood 210 mg/dL (60-115)
--- NOTE | 2022-05-29 18:36 | P.CONGS_ITS ---
History of Present Illness Consult details Consult date: 05/27/22 Narrative: 61M with multiple medical problems, referred for possible PEG placement. He has multiple medical problems including CHF, DM, CKD, Parkinson's ds with dementia, cirrhosis, admitted last May 17 from [facility] for worsening leg edema. He eventually required intubation and transfer to the ICU for worsening CHF last J . He has since been extubated, and was referred to me for PEG placement. A swallow study last week post-extubation apparently suggested high risk for aspiration. The pt, while awake, does not offer any history because of his mental status. He has had multiple admissions recently for his various medical issues. Review of Systems Review of Systems: unavailable from pt; [facility] Past Medical History Medical History Abnormal findings on diagnostic imaging of liver and biliary tract Acute kidney failure, unspecified Acute respiratory failure with hypoxia Alcohol abuse, uncomplicated Alcoholic cirrhosis of liver with ascites Allergic rhinitis due to pollen Anemia Ataxia Cannabis use, unspecified, uncomplicated Chronic kidney disease, stage 3 unspecified Chronic renal failure CKD (chronic kidney disease) stage 3, GFR 30-59 ml/min Cocaine abuse, uncomplicated Dementia Dementia in other diseases classified elsewhere with behavioral disturbance Diabetes Disorder of urea cycle metabolism, unspecified Drug abuse, cocaine type Dysphagia, oral phase Dysphagia, oropharyngeal phase Essential (primary) hypertension Essential tremor ETOH abuse Hepatic failure, unspecified without coma Hepatomegaly, not elsewhere classified Hereditary and idiopathic neuropathy, unspecified Hereditary ataxia, unspecified Hyperosmolality and hypernatremia Intracranial hemorrhage, subdural Mild cognitive impairment, so stated Muscle weakness (generalized) Myopia, bilateral Orthostatic hypotension Osteophyte, unspecified joint Other chronic allergic conjunctivitis Other lack of coordination Other pancytopenia Other skin changes Other specified eating disorder Other speech disturbances Pain in unspecified shoulder Parkinson disease Pneumonitis due to inhalation of food and vomit Repeated falls Schizophrenia Sepsis, unspecified organism Subdural hematoma Tinea pedis Toxic metabolic encephalopathy Traumatic subdural hemorrhage without loss of consciousness, subsequent encounter Type 2 diabetes mellitus with diabetic polyneuropathy Unspecified dementia with behavioral disturbance Unsteadiness on feet Family History Family History Other Hypertension Social History Social History Household Members: None Household Members Other:: Other residents Housing: Apartment Housing Other:: [facility] Do you presently have visiting nurse or other home services: No Unable to assess alcohol history related to: Unknown Alcohol intake: former Patient Tobacco Use Status: Former Tobacco user Cigarettes Per Day: 1 Second Hand Smoke Exposure: No Use of substances other than those prescribed or required for medical reasons: No Currently Displaying Signs/Symptoms of Drug Intoxication Withdrawal: No Have you been hit, kicked, punched, or otherwise hurt by someone within the past year? If so, by whom?: No Do you feel safe in your current relationship?: No Current Relationship Is there a partner from a previous relationship who is making you feel unsafe now?: No Are you made to feel afraid or neglected: No Advance Directives: No Advance Directives Information Provided: No Do you have thoughts of harming others: None Do you have a plan to hurt others: No Plan Recently lost weight without trying: No How much weight loss: Not applicable Eating poorly because of decreased appetite: No Nutrition screen score: 0 service: No ([employer]) Current occupational status: disabled Meds Allergies Allergy/AdvReac Type Severity Reaction Status Date / Time pollen extracts Allergy Unknown Verified 03/20/22 13:42 ragweed pollen Allergy Unknown Verified 03/20/22 13:42 Active Medications: Current Medications Acetazolamide (Acetazolamide Sodium 500 Mg Vial) 500 mg IVPUSH Q6H [facility] Last Admin: 05/29/22 17:11 Dose: 500 mg Albuterol/Ipratropium (Albuterol/Iprat 2.5/0.5mg 3 Ml Ampul.Neb) 3 ml INHALE Q4H [facility] Last Admin: 05/29/22 14:55 Dose: 3 ml Amlodipine Besylate (Amlodipine Besylate 10 Mg Tablet) 10 mg PO DAILY ANDREY; Pr otocol Last Admin: 05/29/22 09:09 Dose: 10 mg Carbidopa/Levodopa (Carbidopa/Levodopa 25/100 Tablet) 1 tab PO QID [facility] Last Admin: 05/29/22 17:10 Dose: 1 tab Chlorhexidine Gluconate (Chlorhexidine Gluc Oral Rinse 15 Ml Mouthwash) 15 ml BUCCAL TID [facility] Last Admin: 05/29/22 17:11 Dose: 15 ml Fentanyl (Fentanyl Citrate/Pf 100 Mcg/2 Ml Vial) 50 mcg IVPUSH Q5M PRN; Protocol PRN Reason: pain or WOB Last Admin: 05/25/22 17:27 Dose: 50 mcg Heparin Sodium (Porcine) (Heparin Sodium,Porcine 5,000 Unit/Ml Vial) 5,000 unit SUBCUT Q8H [facility] Last Admin: 05/29/22 12:58 Dose: 5,000 unit Furosemide 500 mg/ IV (Miscellaneous Supplies) 50 mls @ 0.3 mls/hr IVCONT .Q24H [facility] Last Infusion: 05/29/22 10:24 Dose: 3 mg/hr, 0.3 mls/hr Insulin Human Lispro (Insulin Lispro 100 Unit/Ml 3 Ml Vial) 0 unit SUBCUT QIDACHS [facility]; Protocol Last Admin: 05/29/22 17:11 Dose: 4 unit Lactulose (Lactulose 20 Gm/30 Ml Solution) 20 gm OG-TUBE Q6H [facility] Last Admin: 05/22/22 20:46 Dose: 20 gm Levothyroxine Sodium (Levothyroxine Sodium 25 Mcg Tablet) 25 mcg PO DAILY@0600 [facility] Last Admin: 05/29/22 05:48 Dose: 25 mcg Metoprolol Tartrate (Metoprolol Tartrate 25 Mg Tablet) 25 mg PO BID [facility]; Protocol Last Admin: 05/29/22 09:10 Dose: 25 mg Modafinil (Modafinil 100 Mg Tablet) 200 mg PO DAILY [facility] Last Admin: 05/29/22 09:09 Dose: 200 mg Omeprazole (Omeprazole 20 Mg/10 Ml Susp.Recon) 40 mg G-TUBE DAILY@0630 [facility] Last Admin: 05/29/22 05:48 Dose: 40 mg Pharmacy Consult (Consult Rx Perform Med Rec) 1 each MISCELLANE ONCE PRN PRN Reason: Consult order Sodium Chloride (0.9 % Sodium Chloride Flush 3 Ml Syringe) 3 ml IVFLUSH QSHIFT [facility] Last Admin: 05/29/22 17:09 Dose: Not Given Home Medications Medication Instructions Recorded Confirmed Last Taken Type benztropine 1 mg tablet 1 mg PO BID 11/18/20 05/17/22 Unknown History carbidopa 25 mg-levodopa 100 mg 1 tab PO QID 11/18/20 05/17/22 Unknown History tablet (Sinemet) fluphenazine decanoate 25 mg/mL 50 mg subcut Q14D 11/18/20 05/17/22 03/16/22 History injection solution miconazole nitrate 2 % topical 1 spray topical BID PRN fungal 11/18/20 05/17/22 Unknown History spray (Lotrimin AF) infection tramadol 50 mg tablet 50 mg PO BID 11/18/20 05/17/22 Unknown History docusate sodium 100 mg tablet 100 mg PO BEDTIME 12/10/20 05/17/22 Unknown History sennosides 8.6 mg tablet (senna) 8.6 mg PO DAILY PRN Constipation 12/10/20 05/17/22 Unknown History amlodipine 10 mg tablet 10 mg PO BEDTIME 02/19/22 05/17/22 Unknown History levothyroxine 25 mcg tablet 25 mcg PO DAILY@0600 02/19/22 05/17/22 Unknown Hi story multivitamin 1 tab PO DAILY 02/19/22 05/17/22 Unknown History rifaximin 550 mg tablet (Xifaxan) 1 tab PO BID 02/19/22 05/17/22 Unknown History Calazime Skin Protectant 1 applic topical QSHIFT 03/20/22 05/17/22 Unknown History acetaminophen 325 mg tablet 650 mg PO Q4H PRN PAIN/TEMP>100 03/20/22 05/17/22 Unknown History bisacodyl 10 mg rectal suppository 10 mg WV DAILY PRN Constipation 03/20/22 05/17/22 Unknown History guaifenesin 100 mg/5 mL oral liquid 200 mg PO Q4H PRN Cough 03/20/22 05/17/22 Unknown History lactulose 20 gram/30 mL oral 20 g PO DAILY 03/20/22 05/17/22 Unknown History solution metoprolol tartrate 25 mg tablet 25 mg PO BID 03/20/22 05/17/22 Unknown History gabapentin 300 mg capsule 300 mg PO TID 05/17/22 05/17/22 Unknown History hydralazine 25 mg tablet 25 mg PO TID 05/17/22 05/17/22 Unknown History insulin glargine 100 unit/mL (3 20 unit subcut BID 05/17/22 05/17/22 Unknown History mL) subcutaneous pen (Lantus Solostar U-100 Insulin) insulin lispro 100 unit/mL See Protocol subcut QIDACHS 05/17/22 05/17/22 Unknown History subcutaneous pen (Humalog KwikPen (U-100) Insulin) metformin 1,000 mg tablet 1,000 mg PO BID 05/17/22 05/17/22 Unknown History Physical Exam Vital Signs: Vital Signs: Last Vital Signs Temp 98.1 F 05/29/22 15:26 Pulse 66 05/29/22 15:26 Resp 18 05/29/22 15:26 BP 157/70 H 05/29/22 15:26 Pulse Ox 95 05/29/22 15:26 O2 Del Method 05/29/22 15:26 O2 Flow Rate 1 05/29/22 15:26 FiO2 25 05/26/22 09:00 BMI result Body Mass Index 32.5 Const: Other: not communicative although awake General: no acute distress Resp: Other: mildly SOB Cardio: Rate: regular rate GI: Other: soft, no surgical scars Extrem: Other: some edema Results Labs Result diagrams: 06/08/22 05:49 06/08/22 05:49 Labs: Abnormal lab results 05/28/22 05/29/22 05/29/22 Range/Units 20:24 06:35 06:36 RBC 2.82 L (4.60-5.80) X10*6/uL Hgb 8.7 L (14.0-18.0) g/dl Hct 26.6 L (42.0-52.0) % RDW 17.1 H (11.0-16.0) % Plt Count 101 L D (160-400) X10*3/uL VBG pH (7.32-7.43) Sodium (135-145) mmol/L Carbon Dioxide (22-29) mmol/L BUN (9-16) mg/dL Creatinine (0.5-1.4) mg/dL POC Glucose 178 H (60-115) mg/dL Random Glucose (60-115) mg/dL Total Bilirubin (0.0-1.0) mg/dL Ammonia 59 H (13-55) umol/L Total Protein (6.5-8.0) g/dL Albumin (3.5-5.0) g/dL 05/29/22 05/29/22 05/29/22 Range/Units 06:36 06:43 07:49 RBC (4.60-5.80) X10*6/uL Hgb (14.0-18.0) g/dl Hct (42.0-52.0) % RDW (11.0-16.0) % Plt Count (160-400) X10*3/uL VBG pH 7.54 H (7.32-7.43) Sodium 150 H (135-145) mmol/L Carbon Dioxide 34 H (22-29) mmol/L BUN 64 H (9-16) mg/dL Creatinine 2.71 H (0.5-1.4) mg/dL POC Glucose 222 H (60-115) mg/dL Random Glucose 273 H D (60-115) mg/dL Total Bilirubin 1.5 H (0.0-1.0) mg/dL Ammonia (13-55) umol/L Total Protein 5.9 L (6.5-8.0) g/dL Albumin 3.0 L (3.5-5.0) g/dL 05/29/22 05/29/22 Range/Units 11:27 16:02 RBC (4.60-5.80) X10*6/uL Hgb (14.0-18.0) g/dl Hct (42.0-52.0) % RDW (11.0-16.0) % Plt Count (160-400) X10*3/uL VBG pH (7.32-7.43) Sodium (135-145) mmol/L Carbon Dioxide (22-29) mmol/L BUN (9-16) mg/dL Creatinine (0.5-1.4) mg/dL POC Glucose 184 H 210 H (60-115) mg/dL Random Glucose (60-115) mg/dL Total Bilirubin (0.0-1.0) mg/dL Ammonia (13-55) umol/L Total Protein (6.5-8.0) g/dL Albumin (3.5-5.0) g/dL Short CBC 05/29/22 Range/Units 06:36 WBC 6.7 (4.8-10.8) X10*3/uL Hgb 8.7 L (14.0-18.0) g/dl Hct 26.6 L (42.0-52.0) % Plt Count 101 L D (160-400) X10*3/uL BMP 05/29/22 06:36 Sodium 150 H Potassium 3.7 Chloride 105 Carbon Dioxide 34 H BUN 64 H Creatinine 2.71 H Calcium 9.2 Liver Function 05/29/22 Range/Units 06:36 Total Bilirubin 1.5 H (0.0-1.0) mg/dL AST 30 (5-37) U/L ALT 9 (0-40) U/L Alkaline Phosphatase 56 (39-117) U/L Albumin 3.0 L (3.5-5.0) g/dL All other labs normal. Assessment and Plan (1) Parkinson disease: Status: Acute 61M with multiple medical problems as described. He has been referred for possible PEG placement. I have reviewed his CT scan and he has significant ascites as well as marked varices in the upper abdomen rom his chronic liver disease with portal HTN. I will have to review the procedure with his HCP as he presents with significant risks for bleeding and wound complications with the procedure - whether PEG or surgical G tube placement. I had attempted to reach Atty. Tanesha Pruitt without success. He apparently did not have any problems with oral intake prior to his current admssion either, so it may be prudent to see if his swallow mechanisms improve with some time after his last intubation for respiratory failure. Procedures Date of Service Date of Service: 05/27/22
[2022-05-29 20:10] LABS: Glucose, Whole Blood 227 mg/dL (60-115)
[2022-05-29 22:42] LABS: Glucose, Whole Blood 247 mg/dL (60-115)
[2022-05-29] MEDS: 0.9 % Sodium Chloride Flush 3 ML SYRINGE IVFLUSH (23:43)
[2022-05-30] VITALS (8 sets, daily range): BP systolic 136–190; BP diastolic 60–86; PULSE 59–86; RESP 15–20; TEMP 37–37.4; O2SAT 91–100
[2022-05-30] MEDS: acetaZOLAMIDE sodium 500 MG VIAL IVPUSH ×4 (06:31→20:54)
[2022-05-30 07:48] LABS: Glucose, Whole Blood 173 mg/dL (60-115)
[2022-05-30] MEDS: Albuterol/Iprat 2.5/0.5MG 3 ML AMPUL.NEB INHALE ×2 (08:03→11:50)
[2022-05-30] MEDS: Metoprolol Tartrate 25 MG TABLET PO ×2 (09:55→20:55)
[2022-05-30] MEDS: modafiniL 100 MG TABLET 200 MG PO (09:55)
[2022-05-30] MEDS: 0.9 % Sodium Chloride Flush 3 ML SYRINGE IVFLUSH ×2 (09:55→20:55)
[2022-05-30] MEDS: Carbidopa/Levodopa 25/100 TABLET 1 TAB PO ×4 (09:55→20:54)
[2022-05-30] MEDS: amLODIPine Besylate 10 MG TABLET PO (09:55)
--- NOTE | 2022-05-30 10:14 | HO.PM.IMPN ---
Subjective Subjective Date of Service: 05/30/22 Interval History: F/u on post ICU stay following PEA arrest, respiratory failure likely aspiration, encephalopathy He is pretty lethargic still, I am not able to converse with him there is NGT in place, TLC There is ongoing discussion about possibly getting a PEG Review of Systems Gen: no fever Resp: + sob, no cough CV: no chest, no ANN,+ leg edema GI: No n/v, no abd pain Neuro: No confusion Physical Exam Vital Signs: Vital Signs: Last Vital Signs Temp 98.8 F 05/30/22 08:00 Pulse 63 05/30/22 08:04 Resp 19 05/30/22 08:04 BP 190/86 H 05/30/22 08:00 Pulse Ox 96 05/30/22 08:00 O2 Del Method 05/30/22 08:00 O2 Flow Rate 2 05/30/22 08:00 FiO2 25 05/26/22 09:00 BMI result Body Mass Index 32.5 Const: Other: General: lethargic but no distress, He is not talking at all, makes gurgle sounds? Resp: rohan rhonchi CVS: S1,S2,RRR--Swelling in all arms GI: +BS, NT, no distention Skin: No rash, He has a 1/2 x 3 cm stage 2 decubitus on his? coccyx, a 1 cm DTI on his medial right buttock, and a 3 x 3 DTI on his left buttock Neuro: motor grossly intact, He moves all 4 spontaneously. Psych: flat Objective Data Active Medications Acetazolamide (Acetazolamide Sodium 500 Mg Vial) 500 mg IVPUSH Q6H [facility] Last Admin: 05/30/22 09:55 Dose: 500 mg Documented By: FCO Albuterol/Ipratropium (Albuterol/Iprat 2.5/0.5mg 3 Ml Ampul.Neb) 3 ml INHALE Q4H [facility] Last Admin: 05/30/22 08:03 Dose: 3 ml Documented By: DELLA Amlodipine Besylate (Amlodipine Besylate 10 Mg Tablet) 10 mg PO DAILY [facility]; Protocol Last Admin: 05/30/22 09:55 Dose: 10 mg Documented By: FCO Carbidopa/Levodopa (Carbidopa/Levodopa 25/100 Tablet) 1 tab PO QID [facility] Last Admin: 05/30/22 09:55 Dose: 1 tab Documented By: FCO Chlorhexidine Gluconate (Chlorhexidine Gluc Oral Rinse 15 Ml Mouthwash) 15 ml BUCCAL TID [facility] Last Admin: 05/30/22 09:56 Dose: 15 ml Documented By: FCO Fentanyl (Fentanyl Citrate/Pf 100 Mcg/2 Ml Vial) 50 mcg IVPUSH Q5M PRN; Protocol PRN Reason: pain or WOB Last Admin: 05/25/22 17:27 Dose: 50 mcg Documented By: MARK Heparin Sodium (Porcine) (Heparin Sodium,Porcine 5,000 Unit/Ml Vial) 5,000 unit SUBCUT Q8H [facility] Last Admin: 05/30/22 06:25 Dose: Not Given Documented By: COREY Non-Admin Reason: procedure today Furosemide 500 mg/ IV (Miscellaneous Supplies) 50 mls @ 0.3 mls/hr IVCONT .Q24H [facility] Last Infusion: 05/29/22 10:24 Dose: 3 mg/hr, 0.3 mls/hr Documented By: VINNY Insulin Human Lispro (Insulin Lispro 100 Unit/Ml 3 Ml Vial) 0 unit SUBCUT QIDACHS [facility]; Protocol Last Admin: 05/30/22 09:34 Dose: Not Given Documented By: FCO Non-Admin Reason: NPO Lactulose (Lactulose 20 Gm/30 Ml Solution) 20 gm OG-TUBE Q6H [facility] Last Admin: 05/22/22 20:46 Dose: 20 gm Documented By: CARMELITA Levothyroxine Sodium (Levothyroxine Sodium 25 Mcg Tablet) 25 mcg PO DAILY@0600 [facility] Last Admin: 05/30/22 06:25 Dose: Not Given Documented By: COREY Non-Admin Reason: NPO Metoprolol Tartrate (Metoprolol Tartrate 25 Mg Tablet) 25 mg PO BID [facility]; Protocol Last Admin: 05/30/22 09:55 Dose: 25 mg Documented By: FCO Modafinil (Modafinil 100 Mg Tablet) 200 mg PO DAILY [facility] Last Admin: 05/30/22 09:55 Dose: 200 mg Documented By: FCO Omeprazole (Omeprazole 20 Mg/10 Ml Susp.Recon) 40 mg G-TUBE DAILY@0630 [facility] Last Admin: 05/30/22 06:25 Dose: Not Given Documented By: COREY Non-Admin Reason: NPO Pharmacy Consult (Consult Rx Perform Med Rec) 1 each MISCELLANE ONCE PRN PRN Reason: Consult order Sodium Chloride (0.9 % Sodium Chloride Flush 3 Ml Syringe) 3 ml IVFLUSH QSHIFT [facility] Last Admin: 05/30/22 09:55 Dose: 3 ml Documented By: FCO Labs CBC & Chem 7: 05/29/22 06:36 05/29/22 06:36 Labs: Laboratory Results - last 24 hr 05/29/22 05/29/22 05/29/22 11:27 16:02 20:06 POC Glucose 184 H 210 H 227 H 05/29/22 05/30/22 22:39 07:29 POC Glucose 247 H 173 H Assessment and Plan (1) Acute on chronic diastolic (congestive) heart failure: Status: Acute Plan 61/m with CKD3, HTN, schizophrenia, diastolic CHF frequent hospitalization was admitted on 05/17 for anasarca, exacerbation of CHF, encephalopathy and was being diuressed, he became increasingly more confused, agitated and agressive with some adjustment t Psych meds..on 05/19 he vomitted and aspirated resulting in PEA arrest and was intubated and admitted to ICU with prolonged course and was finally extubated and transfer back to [facility] on 716 with high concern of oral feeding in him again and therefore a PEG is planned #. Underlying Parkinson?s dz, on Sinemet. #. Underlying schizophrenia. #. Underlying dementia. #. Underlying alcoholic cirrhosis. #. Underlying hepatic encephalopathy.? Continuing the rifaximin.? Restart the lactulose when his ammonia level rises.? Check ammonia level QOD. #. Admitted with AMS.? His baseline mental status was severely deteriorated since his hospitalization in February.? Very suggestive that either his dementia and/or his Parkinson's and/or schizophrenia are getting worse.? His mental status now is even worse.? At this point, the only thing we need to continue is his Sinemet.? Discussed with Melonie Pacheco from Psychiatry with following recommendation on 05/28 Recommend to hold prolixin MARTINEZ 25 mg K2cwaaw and monitor for worsening psychosis. Pt no longer on Geodon. If pt becomes agitated, would recommend seroquel low dose i.e. 25-50 mg Q6H PRN due to pt having parkinsonian dementia. Would avoid high potency neuroleptics, anticholinergic agents, or benzodiazepines. Pt was started on provigil in the ICU to help with lethargy. Will monitor for activating side effects. He is again very lethargic this morning and unable to swllow safely.. Check ammonia level . #. Status post cardiac arrest. #. Presumed aspiration pneumonia.? Was treated w a 5-day course of Unasyt.? The sputum gram stain and cx are unremarkable. #. Encephalopathy.? Seems to have recovered from the cardiac arrest to or close to his baseline.? The cardiac arrest was brief enough that he doesn?t seem to have suffered much additional cerebral insult.? hoping that the Provigil will get him more awake and interactive. #. Hypoxemic resp failure.? Was most likely CHF.? Much improved after vigorous diuresis. #. ERNST.? Creat improving but the ratio is climbing.? We?ve just about reached his limit for diuresis.?? Diuril stopped 05/28, still on Lasix drip to be stopped at this time due to high sodium of 150 today #. Diastolic heart failure and right heart failure.?Has been on IV Lasix #. Massive anasarca.? 2? above factors.? Hugely improved, however remains edematous #. Metabolic alkalosis.? Secondary to vigorous diuresis.? O Diamox. #. DM.? On SS insulin. #. Anemia -- acute on chronic.? F/u hemoccult was negative again.? Undoubtedly has anemia of chronic disease ( ACD). #. Leukopenia.? Chronic. #. Thrombocytopenia.? Chronic.? May be related to his liver disease. #. Hypokalemia.? Repleted enterally. K is now normal #. Hypomagnesemia.? Repleted and normnal #. Hypernatremia--due to free water deficit, and Lasix.. IV water started, Nephro consult, hold IV Lasix, recheck labs today #. Mild coagulopathy.? 2? liver disease.? Corrected after 50 mg Vit K. #. Decubitus ulcers, as above.? Usual care. #. Nutrition.?we think the days of Adilson taking anything orally are over.? He needs a feeding tube.? Discussed with Dr. Berry from GI at great length.? She reviewed the CT scan.? Because of his ascites, he?ll likely need a surgical gastrostomy.? Have consulted Dr. Lizarraga.? An alternative is for a percutaneous Gtube by IR under CT guidance to avoid his varices.? In the meantime, has KO feed tube since 05/28 for feeding and for his Sinemet. Reportedly he was eating on his own before coming to the hospital and for now Dr. Lizarraga recommend hold off until his mental status improves and reasess for swallowing #. Code status.? Discussed with Dr. Moon at some length.? In our opinion, Adilson's quality of life is getting much worse.? If he gets intubated again, it?s going to result in a tracheostomy and PEG, and no quality of life.?We don't feel that that would be in his interest.? 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 Dr Myers discussed that on May 26 with his guardian, Tanesha Pruitt ([phone]).? She agrees, but a court order would be needed to establish the DNR status.? She said that she has never done that before, and she does not think that the attorneys in her office have done it.? Dr. Myers discussed that with Mila Mulligan from [employer], and asked her to patino the process with Alexandra and Mrs. Pruitt so that we could get the DNR/DNI status done within the next few days, in case something happens.? In the meantime, if something does happen, Adilson will have to be reintubated. Full Code DVT Prophylaxis: Heparin Inpatient: Post ICU care, needs PEG for feeding and continuing pysch meds adjustment, remains altered not at baseline, electrolytes imbalance Quality Stroke Does the patient have a stroke diagnosis?: No VTE Prior VTE?: No VTE Risk Level:: Medical - moderate - high VTE Device Contraindication: Treatment Not Indicated VTE Drug Contraindication: N/A - Med Ordered
[2022-05-30 10:49] LABS: Ammonia 41 umol/L (13-55)
--- NOTE | 2022-05-30 10:59 | PM.CCN ---
Critical Care Event Note Summary Date of Service: 05/30/22 Code activated: No Narrative: This is a remote note. I spoke with the patient's guardian, Tanesha Pruitt, this morning by telephone about the change of plans for a surgical feeding gastrostomy instead of a PEG, hopefully to be done today. In regards to physicians calling her to obtaining consent from her for the procedure, she is out of town at a conference. She told me that the best way to reach her will be through her office, and they will get the message to her and she will call the physician back. Her direct office telephone number is [phone]. Critical Care Time (minutes): 0
[2022-05-30 11:00] LABS: Anion Gap 14 (12-20); Blood Urea Nitrogen 66 mg/dL (9-16); Calcium 9.2 mg/dL (8.4-10.2); Carbon Dioxide 35 mmol/L (22-29); Chloride 107 mmol/L (96-108); Creatinine Clr Calc Pharmacy 34.4; Estimated Glomerular Filt Rate 25; Glucose Random 204 mg/dL (60-115); Potassium 3.2 mmol/L (3.3-5.1); Sodium 153 mmol/L (135-145)
[2022-05-30] MEDS: Furosemide 500 MG in Container,Empty 0 ML IVCONT (11:19)
[2022-05-30 11:30] LABS: Glucose, Whole Blood 166 mg/dL (60-115)
--- NOTE | 2022-05-30 11:41 | MHC.CLN ---
F/U PT CURRENTLY NPO PT WITH KAOFEED TUBE IN PLACE AND RECEIVED TF OVER WEEKEND POSSIBLE PEG PLACEMENT TODAY PER NSG AWAITING PEG PLACEMENT; RECOMMEND RE-STARTING PROMOTE AT MAX GOAL RATE OF 90ML/HR WITH 240ML Q 8 HOURS TO PROVIDE 2160KCALS (23KCALS/KG), 135G PROTEIN (1.4G/KG) FOR WOUND HEALING, 2532ML TOTAL WATER FROM FORMULA AND FLUSHES (33ML/KG BASED ON IBW) START TF AT 20ML/HR AND INCREASE BY 10ML Q 4 HRS UNTIL MAX GOAL IS REACHED MONITOR TOLERANCE, RESIDUALS AND LYTES
--- NOTE | 2022-05-30 15:33 | MHC.CM.PN ---
per rounds pt being considered for a peg
--- NOTE | 2022-05-30 15:39 | MHC.CM.NN ---
per rounds pt will have pt eval prior to dc
[2022-05-30 16:23] LABS: Glucose, Whole Blood 164 mg/dL (60-115)
[2022-05-30 20:43] LABS: Glucose, Whole Blood 167 mg/dL (60-115)
[2022-05-30] MEDS: Insulin Lispro 100 UNIT/ML 3 ML VIAL SUBCUT (20:54)
[2022-05-30] MEDS: Dextrose 5 % 1,000 ML 75 ML IVCONT (20:55)
[2022-05-30] MEDS: Heparin Sodium,Porcine 5,000 UNIT/ML VIAL 5000 UNIT SUBCUT (20:55)
[2022-05-31] VITALS (10 sets, daily range): BP systolic 142–170; BP diastolic 45–72; PULSE 58–71; RESP 18–20; TEMP 36.9–38.9; O2SAT 90–92; BMI 27.4
[2022-05-31] MEDS: Heparin Sodium,Porcine 5,000 UNIT/ML VIAL 5000 UNIT SUBCUT ×3 (05:22→21:32)
[2022-05-31] MEDS: acetaZOLAMIDE sodium 500 MG VIAL IVPUSH ×2 (05:23→08:00)
[2022-05-31] MEDS: Levothyroxine Sodium 25 MCG TABLET PO (05:23)
[2022-05-31] MEDS: Insulin Lispro 100 UNIT/ML 3 ML VIAL SUBCUT ×4 (07:57→21:31)
[2022-05-31] MEDS: 0.9 % Sodium Chloride Flush 3 ML SYRINGE IVFLUSH ×2 (07:58→16:59)
[2022-05-31] MEDS: Dextrose 5 % 1,000 ML 75 ML IVCONT ×2 (07:59→21:41)
[2022-05-31] MEDS: amLODIPine Besylate 10 MG TABLET PO (08:00)
[2022-05-31] MEDS: Carbidopa/Levodopa 25/100 TABLET 1 TAB PO ×4 (08:00→21:37)
[2022-05-31] MEDS: modafiniL 100 MG TABLET 200 MG PO (08:00)
[2022-05-31] MEDS: Metoprolol Tartrate 25 MG TABLET PO ×2 (08:00→21:32)
[2022-05-31 08:02] LABS: Glucose, Whole Blood 242 mg/dL (60-115)
--- NOTE | 2022-05-31 10:00 | HO.PM.IMPN ---
Subjective Subjective Date of Service: 06/01/22 Interval History: F/u on post ICU stay following PEA arrest, respiratory failure likely aspiration, encephalopathy He remains very sedated, no respiratory difficulty,somnolent most of the time, ammonia level was ok yesterday He had a temp of 101 this morning. There is ongoing discussion about possibly getting a PEG Review of Systems Gen: + fever Resp: n sob, no cough CV: no chest, no ANN,+ leg edema GI: No n/v, no abd pain Physical Exam Vital Signs: Vital Signs: Last Vital Signs Temp 101.3 F H 05/31/22 08:00 Pulse 69 05/31/22 08:00 Resp 20 05/31/22 08:00 BP 170/72 H 05/31/22 08:00 Pulse Ox 92 05/31/22 08:00 O2 Del Method 05/31/22 08:00 O2 Flow Rate 2 05/31/22 08:00 FiO2 25 05/26/22 09:00 BMI result Body Mass Index 27.4 Const: Other: General: lethargic but no distress, He is not talking at all, less gurgly today? Resp: rohan rhonchi, no accessory muscle use CVS: S1,S2,RRR--Swelling in all arms GI: +BS, NT, no distention Skin: No rash, He has a 1/2 x 3 cm stage 2 decubitus on his? coccyx, a 1 cm DTI on his medial right buttock, and a 3 x 3 DTI on his left buttock Neuro: motor grossly intact, He moves all 4 spontaneously. Psych: flat Objective Data Active Medications Amlodipine Besylate (Amlodipine Besylate 10 Mg Tablet) 10 mg PO DAILY [facility]; Protocol Last Admin: 05/31/22 08:00 Dose: 10 mg Documented By: BIB Carbidopa/Levodopa (Carbidopa/Levodopa 25/100 Tablet) 1 tab PO QID [facility] Last Admin: 05/31/22 08:00 Dose: 1 tab Documented By: BIB Chlorhexidine Gluconate (Chlorhexidine Gluc Oral Rinse 15 Ml Mouthwash) 15 ml BUCCAL TID [facility] Last Admin: 05/31/22 08:00 Dose: Not Given Documented By: BIB Non-Admin Reason: NPO Fentanyl (Fentanyl Citrate/Pf 100 Mcg/2 Ml Vial) 50 mcg IVPUSH Q5M PRN; Protocol PRN Reason: pain or WOB Last Admin: 05/25/22 17:27 Dose: 50 mcg Documented By: MARK Heparin Sodium (Porcine) (Heparin Sodium,Porcine 5,000 Unit/Ml Vial) 5,000 unit SUBCUT Q8H [facility] Last Admin: 05/31/22 05:22 Dose: 5,000 unit Documented By: COREY Furosemide 500 mg/ IV (Miscellaneous Supplies) 50 mls @ 0.3 mls/hr IVCONT .Q24H [facility] Last Admin: 05/30/22 11:19 Dose: 3 mg/hr, 0.3 mls/hr Documented By: BROWil Dextrose (D5w) 1,000 mls @ 75 mls/hr IVCONT .[id number] [facility] Last Admin: 05/31/22 07:59 Dose: 75 mls/hr Documented By: BIB Insulin Human Lispro (Insulin Lispro 100 Unit/Ml 3 Ml Vial) 0 unit SUBCUT QIDACHS [facility]; Protocol Last Admin: 05/31/22 07:57 Dose: 4 unit Documented By: BIB Lactulose (Lactulose 20 Gm/30 Ml Solution) 20 gm OG-TUBE Q6H [facility] Last Admin: 05/22/22 20:46 Dose: 20 gm Documented By: CARMELITA Levothyroxine Sodium (Levothyroxine Sodium 25 Mcg Tablet) 25 mcg PO DAILY@0600 [facility] Last Admin: 05/31/22 05:23 Dose: 25 mcg Documented By: COREY Metoprolol Tartrate (Metoprolol Tartrate 25 Mg Tablet) 25 mg PO BID [facility]; Protocol Last Admin: 05/31/22 08:00 Dose: 25 mg Documented By: BIB Modafinil (Modafinil 100 Mg Tablet) 200 mg PO DAILY [facility] Last Admin: 05/31/22 08:00 Dose: 200 mg Documented By: BIB Omeprazole (Omeprazole 20 Mg/10 Ml Susp.Recon) 40 mg G-TUBE DAILY@0630 [facility] Last Admin: 05/31/22 05:23 Dose: 40 mg Documented By: COREY Pharmacy Consult (Consult Rx Perform Med Rec) 1 each MISCELLANE ONCE PRN PRN Reason: Consult order Sodium Chloride (0.9 % Sodium Chloride Flush 3 Ml Syringe) 3 ml IVFLUSH QSHIFT [facility] Last Admin: 05/31/22 07:58 Dose: 3 ml Documented By: BIB Labs CBC & Chem 7: 05/31/22 10:38 06/01/22 06:10 Labs: Laboratory Results - last 24 hr 05/30/22 05/30/22 05/30/22 10:37 10:37 11:26 Anion Gap 14 Estim Creat Clear Calc 34.4 Estimated GFR 25 POC Glucose 166 H Random Glucose 204 H Calcium 9.2 Ammonia 41 05/30/22 05/30/22 05/31/22 16:13 20:40 07:41 Anion Gap Estim Creat Clear Calc Estimated GFR POC Glucose 164 H 167 H 242 H Random Glucose Calcium Ammonia Assessment and Plan (1) Acute on chronic diastolic (congestive) heart failure: Status: Acute Plan 61/m with CKD3, HTN, schizophrenia, diastolic CHF frequent hospitalization was admitted on 05/17 for anasarca, exacerbation of CHF, encephalopathy and was being diuressed, he became increasingly more confused, agitated and agressive with some adjustment t Psych meds..on 05/19 he vomitted and aspirated resulting in PEA arrest and was intubated and admitted to ICU with prolonged course and was finally extubated and transfer back to [facility] on with high concern of oral feeding in him again and therefore a PEG is planned #. Underlying Parkinson?s dz, on Sinemet. #. Underlying schizophrenia. #. Underlying dementia. #. Underlying alcoholic cirrhosis. #. Underlying hepatic encephalopathy.? Continuing the rifaximin and Lactulose?, last ammonia level 41 on 05/30 #. Admitted with AMS.? His baseline mental status was severely deteriorated since his hospitalization in February.? Very suggestive that either his dementia and/or his Parkinson's and/or schizophrenia are getting worse.? His mental status now is even worse.? At this point, the only thing we need to continue is his Sinemet.? Discussed with Melonie Pacheco from Psychiatry with following recommendation on 05/28 Recommend to hold prolixin MARTINEZ 25 mg [id number] and monitor for worsening psychosis. Pt no longer on Geodon. If pt becomes agitated, would recommend seroquel low dose i.e. 25-50 mg Q6H PRN due to pt having parkinsonian dementia. Would avoid high potency neuroleptics, anticholinergic agents, or benzodiazepines. Pt was started on provigil in the ICU to help with lethargy. Will monitor for activating side effects. He is again very lethargic this morning and unable to swllow safely.. ammonia level was ok . #. Status post cardiac arrest. #. Presumed aspiration pneumonia.? Was treated w a 5-day course of Unasyt.? The sputum gram stain and cx are unremarkable. but he now has new fever so will get another xray #. Encephalopathy.?.? The cardiac arrest was brief enough that he doesn?t seem to have suffered much additional cerebral insult.? hoping that the Provigil will get him more awake and interactive. #. Hypoxemic resp failure.? Was most likely CHF.? Much improved after vigorous diuresis. He reamins edematous but now has hypernatremia and therefore dc lasix and diamonx #. ERNST.? Creat improving but the ratio is climbing.? We?ve just about reached his limit for diuresis.?? Diuril stopped 05/28, still on Lasix drip to be stopped at this time due to high sodium of 150 today #. Diastolic heart failure and right heart failure.? #. Massive anasarca.? 2? above factors.? Hugely improved, however remains edematous #. Metabolic alkalosis.? Secondary to vigorous diuresis.? On Diamox. #. DM.? On SS insulin. #. Anemia -- acute on chronic.? F/u hemoccult was negative again.? Undoubtedly has anemia of chronic disease ( ACD). #. Leukopenia.? Chronic. #. Thrombocytopenia.? Chronic.? May be related to his liver disease. #. Hypokalemia.? Repleted enterally. K is now normal #. Hypomagnesemia.? Repleted and normnal #. Hypernatremia--due to free water deficit, and Lasix.. IV water started, Nephro consult, hold IV Lasix, recheck labs today #. Mild coagulopathy.? 2? liver disease.? Corrected after 50 mg Vit K. #. Decubitus ulcers, as above.? Usual care. #. Nutrition.?we think the days of Adilson taking anything orally are over.? He needs a feeding tube.? Discussed with Dr. Berry from GI at great length.? She reviewed the CT scan.? Because of his ascites, he?ll likely need a surgical gastrostomy.? Have consulted Dr. Lizarraga.? An alternative is for a percutaneous Gtube by IR under CT guidance to avoid his varices.? In the meantime, has KO feed tube since 05/28 for feeding and for his Sinemet. Reportedly he was eating on his own before coming to the hospital and for now Dr. Lizarraga recommend hold off until his mental status improves and reasess for swallowing #. Code status.? Discussed with Dr. Moon at some length.? In our opinion, Adilson's quality of life is getting much worse.? If he gets intubated again, it?s going to result in a tracheostomy and PEG, and no quality of life.?We don't feel that that would be in his interest.? 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 Dr Myers discussed that on May 26 with his guardian, Tanesha Pruitt ([phone]).? She agrees, but a court order would be needed to establish the DNR status.? She said that she has never done that before, and she does not think that the attorneys in her office have done it.? Dr. Myers discussed that with Mila Mulligan from Case [employer], and asked her to patino the process with Alexandra and Mrs. Pruitt so that we could get the DNR/DNI status done within the next few days, in case something happens.? In the meantime, if something does happen, Adilson will have to be reintubated. Full Code DVT Prophylaxis: Heparin Inpatient: Post ICU care, needs PEG for feeding and continuing pysch meds adjustment, remains altered not at baseline, electrolytes imbalance Quality Stroke Does the patient have a stroke diagnosis?: No VTE Prior VTE?: No VTE Risk Level:: Medical - moderate - high VTE Device Contraindication: Treatment Not Indicated VTE Drug Contraindication: N/A - Med Ordered
[2022-05-31 11:09] LABS: Hematocrit 27.7 % (42.0-52.0); Mean Corpuscular HGB Conc 32.5 g/dl (31.0-36.0); Mean Corpuscular Hemoglobin 30.6 pg (27.0-33.0); Mean Corpuscular Volume 94.2 fL (80.0-98.0); Platelet Count 120 X10*3/uL (160-400); Red Blood Count 2.94 X10*6/uL (4.60-5.80); Red Cell Distribution Width 16.8 % (11.0-16.0); White Blood Count 15.6 X10*3/uL (4.8-10.8)
[2022-05-31 11:34] LABS: Glucose, Whole Blood 246 mg/dL (60-115)
[2022-05-31 12:03] LABS: Anion Gap 11 (12-20); Blood Urea Nitrogen 69 mg/dL (9-16); Calcium 8.4 mg/dL (8.4-10.2); Carbon Dioxide 34 mmol/L (22-29); Chloride 107 mmol/L (96-108); Creatinine Clr Calc Pharmacy 29.6; Estimated Glomerular Filt Rate 25; Glucose Random 274 mg/dL (60-115); Potassium 3.2 mmol/L (3.3-5.1); Sodium 149 mmol/L (135-145)
[2022-05-31] MEDS: Acetaminophen Supp 650 MG SUPP.RECT PR (12:28)
[2022-05-31 16:58] LABS: Glucose, Whole Blood 308 mg/dL (60-115)
[2022-05-31] MEDS: Piperacillin Sodium/Tazobactam 4.5 GM in 0.9 % Sodium Chloride 100 ML IV (17:24)
[2022-05-31 18:17] LABS: Anion Gap 11 (12-20); Carbon Dioxide 33 mmol/L (22-29); Chloride 106 mmol/L (96-108); Potassium 2.8 mmol/L (3.3-5.1); Sodium 147 mmol/L (135-145)
[2022-05-31 20:07] LABS: Glucose, Whole Blood 231 mg/dL (60-115)
[2022-06-01] VITALS (8 sets, daily range): BP systolic 153–188; BP diastolic 52–78; PULSE 60–73; RESP 18–30; TEMP 36.3–38.6; O2SAT 92–95; BMI 30.9; BMI 28.2
[2022-06-01] MEDS: Acetaminophen Supp 650 MG SUPP.RECT PR ×2 (00:41→20:32)
[2022-06-01] MEDS: Piperacillin Sodium/Tazobactam 4.5 GM in 0.9 % Sodium Chloride 100 ML IV ×3 (00:41→16:59)
[2022-06-01] MEDS: 0.9 % Sodium Chloride Flush 3 ML SYRINGE IVFLUSH ×4 (01:06→20:34)
[2022-06-01] MEDS: Heparin Sodium,Porcine 5,000 UNIT/ML VIAL 5000 UNIT SUBCUT ×3 (05:29→20:33)
[2022-06-01] MEDS: Levothyroxine Sodium 25 MCG TABLET PO (05:32)
--- NOTE | 2022-06-01 05:37 | PC.NURSE ---
MD Armstrong notified of PT BP 186/68 at 525 am, no new orders received.
[2022-06-01 06:49] LABS: Anion Gap 10 (12-20); Blood Urea Nitrogen 72 mg/dL (9-16); Calcium 8.2 mg/dL (8.4-10.2); Carbon Dioxide 33 mmol/L (22-29); Chloride 105 mmol/L (96-108); Creatinine Clr Calc Pharmacy 31.2; Estimated Glomerular Filt Rate 24; Potassium 2.9 mmol/L (3.3-5.1); Sodium 145 mmol/L (135-145)
[2022-06-01 07:13] LABS: Glucose Random 392 mg/dL (60-115)
--- NOTE | 2022-06-01 07:14 | MHC.PIE ---
P= High blood sugars of 392 I. MD notified, and given sliding scale E.
[2022-06-01 07:38] LABS: Glucose, Whole Blood 362 mg/dL (60-115)
[2022-06-01] MEDS: Insulin Lispro 100 UNIT/ML 3 ML VIAL SUBCUT ×4 (08:01→20:34)
[2022-06-01] MEDS: Metoprolol Tartrate 25 MG TABLET PO ×2 (08:02→20:35)
[2022-06-01] MEDS: modafiniL 100 MG TABLET 200 MG PO (08:02)
[2022-06-01] MEDS: amLODIPine Besylate 10 MG TABLET PO (08:02)
[2022-06-01] MEDS: Carbidopa/Levodopa 25/100 TABLET 1 TAB PO ×4 (08:02→20:33)
[2022-06-01] MEDS: Chlorhexidine Gluc Oral Rinse 15 ML MOUTHWASH BUCCAL ×2 (08:08→17:01)
[2022-06-01] MEDS: Potassium Chloride Packet 20 MEQ PACKET 40 MEQ PO ×2 (08:15→20:32)
--- NOTE | 2022-06-01 11:20 | HO.PM.IMPN ---
Subjective Subjective Date of Service: 06/01/22 Interval History: F/u on post ICU stay following PEA arrest, respiratory failure likely aspiration, encephalopathy He remains very sedated, encephalopathic, no respiratory difficulty, somnolent most of the time, ammonia level was 2 days agoa There is ongoing discussion about possibly getting a PEG, restarted on Zosyn for presumed aspiration yesterday with increased WBC and fever Review of Systems Gen: fever Resp: n sob, no cough CV: no chest, no ANN,+ leg edema GI: No n/v, no abd pain Physical Exam Vital Signs: Vital Signs: Last Vital Signs Temp 99.1 F 06/01/22 11:08 Pulse 64 06/01/22 11:08 Resp 18 06/01/22 11:08 BP 182/75 H 06/01/22 11:08 Pulse Ox 92 06/01/22 11:08 O2 Del Method 06/01/22 11:08 O2 Flow Rate 2 06/01/22 11:08 FiO2 25 05/26/22 09:00 BMI result Body Mass Index 28.2 Const: Other: General: lethargic but no distress, He is not talking at all, less gurgly today? Resp: rohan rhonchi, no accessory muscle use CVS: S1,S2,RRR--Swelling in all arms GI: +BS, NT, no distention Skin: No rash, He has a 1/2 x 3 cm stage 2 decubitus on his? coccyx, a 1 cm DTI on his medial right buttock, and a 3 x 3 DTI on his left buttock Neuro: motor grossly intact, He moves all 4 spontaneously. Psych: flat Objective Data Active Medications Acetaminophen (Acetaminophen Supp 650 Mg Supp.Rect) 650 mg MS Q6H PRN PRN Reason: Fever >100.4 Last Admin: 06/01/22 00:41 Dose: 650 mg Documented By: EVANRINBety Amlodipine Besylate (Amlodipine Besylate 10 Mg Tablet) 10 mg PO DAILY [facility]; Protocol Last Admin: 06/01/22 08:02 Dose: 10 mg Documented By: MARIA LUZ Carbidopa/Levodopa (Carbidopa/Levodopa 25/100 Tablet) 1 tab PO QID [facility] Last Admin: 06/01/22 08:02 Dose: 1 tab Documented By: MARIA LUZ Chlorhexidine Gluconate (Chlorhexidine Gluc Oral Rinse 15 Ml Mouthwash) 15 ml BUCCAL TID [facility] Last Admin: 06/01/22 08:08 Dose: 15 ml Documented By: MARIA LUZ Heparin Sodium (Porcine) (Heparin Sodium,Porcine 5,000 Unit/Ml Vial) 5,000 unit SUBCUT Q8H [facility] Last Admin: 06/01/22 05:29 Dose: 5,000 unit Documented By: ZACH Dextrose (D5w) 1,000 mls @ 75 mls/hr IVCONT .[id number] [facility] Last Admin: 05/31/22 21:41 Dose: 75 mls/hr Documented By: ZACH Piperacillin Sod/Tazobactam (Sod 4.5 gm/ Sodium Chloride) 100 mls @ 200 mls/hr IV Q8H [facility] Last Infusion: 06/01/22 09:20 Dose: 0 mls/hr Documented By: MARIA LUZ Insulin Human Lispro (Insulin Lispro 100 Unit/Ml 3 Ml Vial) 0 unit SUBCUT QIDACHS [facility]; Protocol Last Admin: 06/01/22 08:01 Dose: 8 unit Documented By: MARIA LUZ Lactulose (Lactulose 20 Gm/30 Ml Solution) 20 gm OG-TUBE Q6H [facility] Last Admin: 05/22/22 20:46 Dose: 20 gm Documented By: CARMELITA Levothyroxine Sodium (Levothyroxine Sodium 25 Mcg Tablet) 25 mcg PO DAILY@0600 [facility] Last Admin: 06/01/22 05:32 Dose: 25 mcg Documented By: ZACH Metoprolol Tartrate (Metoprolol Tartrate 25 Mg Tablet) 25 mg PO BID [facility]; Protocol Last Admin: 06/01/22 08:02 Dose: 25 mg Documented By: MARIA LUZ Modafinil (Modafinil 100 Mg Tablet) 200 mg PO DAILY [facility] Last Admin: 06/01/22 08:02 Dose: 200 mg Documented By: MARIA LUZ Omeprazole (Omeprazole 20 Mg/10 Ml Susp.Recon) 40 mg G-TUBE DAILY@0630 [facility] Last Admin: 06/01/22 05:31 Dose: 40 mg Documented By: ZACH Pharmacy Consult (Consult Rx Perform Med Rec) 1 each MISCELLANE ONCE PRN PRN Reason: Consult order Potassium Chloride (Potassium Chloride Packet 20 Meq Packet) 40 meq PO Q12H [facility] Stop: 06/01/22 20:01 Last Admin: 06/01/22 08:15 Dose: 40 meq Documented By: MARIA LUZ Sodium Chloride (0.9 % Sodium Chloride Flush 3 Ml Syringe) 3 ml IVFLUSH QSHIFT [facility] Last Admin: 06/01/22 08:09 Dose: 3 ml Documented By: MARIA LUZ Labs CBC & Chem 7: 05/31/22 10:38 06/01/22 06:10 Labs: Laboratory Results - last 24 hr 05/31/22 05/31/22 05/31/22 10:38 11:14 16:37 Anion Gap 11 L Estim Creat Clear Calc 29.6 Estimated GFR 25 POC Glucose 246 H 308 H Random Glucose 274 H Calcium 8.4 D Magnesium 05/31/22 05/31/22 06/01/22 17:57 20:03 06:10 Anion Gap 11 L 10 L Estim Creat Clear Calc 31.2 Estimated GFR 24 POC Glucose 231 H Random Glucose 392 H* Calcium 8.2 L Magnesium 2.0 06/01/22 07:23 Anion Gap Estim Creat Clear Calc Estimated GFR POC Glucose 362 H* Random Glucose Calcium Magnesium Assessment and Plan (1) Acute on chronic diastolic (congestive) heart failure: Status: Acute Plan 61/m with CKD3, HTN, schizophrenia, diastolic CHF frequent hospitalization was admitted on 05/17 for anasarca, exacerbation of CHF, encephalopathy and was being diuressed, he became increasingly more confused, agitated and agressive with some adjustment t Psych meds..on 05/19 he vomitted and aspirated resulting in PEA arrest and was intubated and admitted to ICU with prolonged course and was finally extubated and transfer back to [facility] on with high concern of oral feeding in him again and therefore a PEG is planned #. Underlying Parkinson?s dz, on Sinemet. #. Underlying schizophrenia. #. Underlying dementia. #. Underlying alcoholic cirrhosis. #. Underlying hepatic encephalopathy.? Continuing the rifaximin and Lactulose?, last ammonia level 41 on 05/30 #. Admitted with AMS.? His baseline mental status was severely deteriorated since his hospitalization in February.? Very suggestive that either his dementia and/or his Parkinson's and/or schizophrenia are getting worse.? His mental status now is even worse.? At this point, the only thing we need to continue is his Sinemet.? Discussed with Melonie Pacheco from Psychiatry with following recommendation on 05/28 Recommend to hold prolixin MARTINEZ 25 mg [id number] and monitor for worsening psychosis. Pt no longer on Geodon. If pt becomes agitated, would recommend seroquel low dose i.e. 25-50 mg Q6H PRN due to pt having parkinsonian dementia. Would avoid high potency neuroleptics, anticholinergic agents, or benzodiazepines. Pt was started on provigil in the ICU to help with lethargy. Will monitor for activating side effects. He is again very lethargic this morning and unable to swllow safely.. repeat ammonia level today, he remains encephalopathic, ? repeat head CT, ABG.. ? anoxic encephalpathy . #. Status post cardiac arrest. #. Presumed aspiration pneumonia.? Was treated w a 5-day course of Unasyt.? The sputum gram stain and cx are unremarkable. had fever and increased WBC on 05/31 and restarted on Zosyn for reaspiration #. Encephalopathy.?.? The cardiac arrest was brief enough that he doesn?t seem to have suffered much additional cerebral insult.? hoping that the Provigil will get him more awake and interactive. #. Hypoxemic resp failure.? Was most likely CHF.? Much improved after vigorous diuresis. He reamins edematous but now has hypernatremia and therefore dc lasix and diamonx #. ERNST.? Creat improving but the ratio is climbing.? We?ve just about reached his limit for diuresis.?? Diuril stopped 05/28, Lasix drip stopped due t high sodium level #. Diastolic heart failure and right heart failure.? #. Massive anasarca.? 2? above factors.? Hugely improved, however remains edematous probably from low protein state #. Metabolic alkalosis.? Secondary to vigorous diuresis.? bicab 33 Diamonx stopped #. DM.? On SS insulin. #. Anemia -- acute on chronic.? F/u hemoccult was negative again.? Undoubtedly has anemia of chronic disease ( ACD). #. Leukopenia.? Chronic. now leukocytosis #. Thrombocytopenia.? Chronic.? May be related to his liver disease. #. Hypokalemia.? Repleted enterally. #. Hypomagnesemia.? Repleted and normnal #. Hypernatremia--due to free water deficit, and Lasix.. sodium dwain to normal now #. Mild coagulopathy.? 2? liver disease.? Corrected after 50 mg Vit K. #. Decubitus ulcers, as above.? Usual care. #. Nutrition.?we think the days of Adilson taking anything orally may be coming to an end.? He needs a feeding tube unless he becomes more alert and able to eat safely.? Discussed with Dr. Berry from GI at great length.? She reviewed the CT scan.? Because of his ascites, he?ll likely need a surgical gastrostomy.? Have consulted Dr. Lizarraga.? An alternative is for a percutaneous Gtube by IR under CT guidance to avoid his varices.? In the meantime, has KO feed tube since 05/28 for feeding and for his Sinemet. Reportedly he was eating on his own before coming to the hospital and for now Dr. Lizarraga recommend hold off until his mental status improves and reasess for swallowing #. Code status.? Discussed with Dr. Moon at some length.? In our opinion, Adilson's quality of life is getting much worse.? If he gets intubated again, it?s going to result in a tracheostomy and PEG, and no quality of life.?We don't feel that that would be in his interest.? He should have DNR/DNI status, maybe even S[employer] status.? Dr Myers discussed that on May 26 with his guardian, Tanesha Pruitt ([phone]).? She agrees, but a court order would be needed to establish the DNR status.? She said that she has never done that before, and she does not think that the attorneys in her office have done it.? Dr. Myers discussed that with Mila Mulligan from Case [employer], and asked her to patino the process with ChazVan and Mrs. Pruitt so that we could get the DNR/DNI status done within the next few days, in case something happens.? In the meantime, if something does happen, Adilson will have to be reintubated. Full Code DVT Prophylaxis: Heparin Inpatient: Post ICU care, needs PEG for feeding and continuing pysch meds adjustment, remains altered not at baseline, electrolytes imbalance Quality Stroke Does the patient have a stroke diagnosis?: No VTE Prior VTE?: No VTE Risk Level:: Medical - moderate - high VTE Device Contraindication: Treatment Not Indicated VTE Drug Contraindication: N/A - Med Ordered
[2022-06-01 11:35] LABS: VBG pCO2 39 mmHg; VBG pH 7.51 (7.32-7.43)
[2022-06-01 11:36] LABS: Glucose, Whole Blood 361 mg/dL (60-115)
[2022-06-01 11:36] LABS: VBG Base Excess 8.9 mmol/L; VBG HCO3 32 mmol/L (22-26); VBG pO2 51 mmHg
[2022-06-01 11:49] LABS: Ammonia 40 umol/L (13-55)
--- NOTE | 2022-06-01 12:21 | MHC.CLN ---
F/U PT CURRENTLY NPO PT WITH KAOFEED TUBE IN PLACE AND RECEIVED TF OVER WEEKEND PT RECEIVING PROMOTE AT MAX GOAL RATE OF 90ML/HR WITH 240ML Q 8 HOURS PROVIDES 2160KCALS (23KCALS/KG), 135G PROTEIN (1.4G/KG) FOR WOUND HEALING, 2532ML TOTAL WATER FROM FORMULA AND FLUSHES (33ML/KG BASED ON IBW) MONITOR TOLERANCE, RESIDUALS AND LYTES AWAITING PEG
[2022-06-01] MEDS: Dextrose 5 % 1,000 ML 75 ML IVCONT (12:47)
[2022-06-01 13:21] LABS: Venous Blood Gas Refer to POC result
--- NOTE | 2022-06-01 13:30 | MHC.CM.PN ---
pt is unresponsive ?needing peg unable to reach guardian
[2022-06-01] MEDS: Insulin Glargine,Hum.rec.anlog 100 UNIT/ML 10 ML VIAL 10 UNIT SUBCUT (14:05)
[2022-06-01 16:02] LABS: Glucose, Whole Blood 337 mg/dL (60-115)
[2022-06-01 19:42] LABS: Glucose, Whole Blood 399 mg/dL (60-115)
[2022-06-02] MEDS: Piperacillin Sodium/Tazobactam 4.5 GM in 0.9 % Sodium Chloride 100 ML IV ×3 (01:53→16:19)
[2022-06-02 04:00] VITALS: BP 183/65; PULSE 66; RESP 34; TEMP 36.8; O2SAT 96
[2022-06-02] MEDS: Acetaminophen Supp 650 MG SUPP.RECT PR ×2 (05:44→11:55)
[2022-06-02 06:35] LABS: Anion Gap 10 (12-20); Blood Urea Nitrogen 70 mg/dL (9-16); Calcium 7.9 mg/dL (8.4-10.2); Carbon Dioxide 31 mmol/L (22-29); Chloride 107 mmol/L (96-108); Creatinine Clr Calc Pharmacy 31.2; Estimated Glomerular Filt Rate 24; Potassium 3.1 mmol/L (3.3-5.1); Sodium 145 mmol/L (135-145)
[2022-06-02] MEDS: Heparin Sodium,Porcine 5,000 UNIT/ML VIAL 5000 UNIT SUBCUT ×2 (06:48→15:43)
[2022-06-02] MEDS: Levothyroxine Sodium 25 MCG TABLET PO (06:48)
[2022-06-02 06:57] LABS: Glucose Random 473 mg/dL (60-115)
[2022-06-02 07:31] LABS: Hematocrit 25.7 % (42.0-52.0); Hemoglobin 8.6 g/dl (14.0-18.0); Mean Corpuscular HGB Conc 33.5 g/dl (31.0-36.0); Mean Corpuscular Hemoglobin 31.2 pg (27.0-33.0); Mean Corpuscular Volume 93.1 fL (80.0-98.0); Mean Platelet Volume 11.8 fL (9.4-12.4); Platelet Count 90 X10*3/uL (160-400); Red Blood Count 2.76 X10*6/uL (4.60-5.80); White Blood Count 8.1 X10*3/uL (4.8-10.8)
[2022-06-02 07:42] LABS: Glucose, Whole Blood 391 mg/dL (60-115)
[2022-06-02 07:53] VITALS: BP 160/73; PULSE 65; RESP 20; TEMP 37.9; O2SAT 95
[2022-06-02] MEDS: Insulin Lispro 100 UNIT/ML 3 ML VIAL SUBCUT ×4 (07:56→21:37)
[2022-06-02] MEDS: Insulin Glargine,Hum.rec.anlog 100 UNIT/ML 10 ML VIAL 10 UNIT SUBCUT (07:56)
[2022-06-02] MEDS: modafiniL 100 MG TABLET 200 MG PO (07:56)
[2022-06-02] MEDS: 0.9 % Sodium Chloride Flush 3 ML SYRINGE IVFLUSH ×2 (07:57→16:15)
[2022-06-02] MEDS: amLODIPine Besylate 10 MG TABLET PO (07:57)
[2022-06-02] MEDS: Carbidopa/Levodopa 25/100 TABLET 1 TAB PO ×2 (07:57→21:37)
[2022-06-02] MEDS: Metoprolol Tartrate 25 MG TABLET PO ×2 (07:57→21:37)
[2022-06-02] MEDS: Chlorhexidine Gluc Oral Rinse 15 ML MOUTHWASH BUCCAL ×2 (07:59→16:15)
[2022-06-02 08:15] LABS: VBG Base Excess 8.9 mmol/L; VBG HCO3 32 mmol/L (22-26); VBG pCO2 39 mmHg; VBG pH 7.51 (7.32-7.43); VBG pO2 51 mmHg
[2022-06-02 11:02] LABS: Glucose, Whole Blood 394 mg/dL (60-115)
--- NOTE | 2022-06-02 11:10 | HO.PM.IMPN ---
Subjective Subjective Date of Service: 06/02/22 Interval History: F/u on post ICU stay following PEA arrest, respiratory failure likely aspiration, encephalopathy He remains he remains unresponsive, open eye to sternal rub, no difficulty breathing, has low grade temp this morning. Review of Systems Gen: +fever Review of Systems: Yes Unobtainable due to mental status Physical Exam Vital Signs: Vital Signs: Last Vital Signs Temp 100.3 F 06/02/22 07:53 Pulse 65 06/02/22 07:53 Resp 20 06/02/22 07:53 BP 160/73 H 06/02/22 07:53 Pulse Ox 95 06/02/22 07:53 O2 Del Method 06/02/22 07:53 O2 Flow Rate 2.5 06/02/22 07:53 FiO2 25 05/26/22 09:00 BMI result Body Mass Index 28.2 Const: Other: General: lethargic but no distress, He is not talking at all, no gurgling Resp: rohan rhonchi, no accessory muscle use CVS: S1,S2,RRR--Swelling in all arms GI: +BS, NT, no distention Skin: No rash, He has a 1/2 x 3 cm stage 2 decubitus on his? coccyx, a 1 cm DTI on his medial right buttock, and a 3 x 3 DTI on his left buttock Neuro: motor grossly intact, He moves all 4 spontaneously. Psych: flat Objective Data Active Medications Acetaminophen (Acetaminophen Supp 650 Mg Supp.Rect) 650 mg [place] Q6H PRN PRN Reason: Fever >100.4 Last Admin: 06/02/22 05:44 Dose: 650 mg Documented By: SADAF Amlodipine Besylate (Amlodipine Besylate 10 Mg Tablet) 10 mg PO DAILY [facility]; Protocol Last Admin: 06/02/22 07:57 Dose: 10 mg Documented By: MARIA LZU Carbidopa/Levodopa (Carbidopa/Levodopa 25/100 Tablet) 1 tab PO QID [facility] Last Admin: 06/02/22 07:57 Dose: 1 tab Documented By: MARIA LUZ Chlorhexidine Gluconate (Chlorhexidine Gluc Oral Rinse 15 Ml Mouthwash) 15 ml BUCCAL TID [facility] Last Admin: 06/02/22 07:59 Dose: 15 ml Documented By: MARIA LUZ Heparin Sodium (Porcine) (Heparin Sodium,Porcine 5,000 Unit/Ml Vial) 5,000 unit SUBCUT Q8H [facility] Last Admin: 06/02/22 06:48 Dose: 5,000 unit Documented By: SADAF Hydralazine HCl (Hydralazine Hcl 20 Mg/Ml Vial) 10 mg IVPUSH Q6H PRN; Protocol PRN Reason: SBP > 180 Piperacillin Sod/Tazobactam (Sod 4.5 gm/ Sodium Chloride) 100 mls @ 200 mls/hr IV Q8H [facility] Last Infusion: 06/02/22 08:38 Dose: 0 mls/hr Documented By: MARIA LUZ Insulin Glargine (Insulin Glargine,Hum.Rec.Anlog 100 Unit/Ml 10 Ml Vial) 10 unit SUBCUT DAILY [facility] Last Admin: 06/02/22 07:56 Dose: 10 unit Documented By: MARIA LUZ Insulin Human Lispro (Insulin Lispro 100 Unit/Ml 3 Ml Vial) 0 unit SUBCUT QIDACHS [facility]; Protocol Last Admin: 06/02/22 07:56 Dose: 10 unit Documented By: MARIA LUZ Lactulose (Lactulose 20 Gm/30 Ml Solution) 20 gm OG-TUBE Q6H [facility] Last Admin: 05/22/22 20:46 Dose: 20 gm Documented By: CARMELITA Levothyroxine Sodium (Levothyroxine Sodium 25 Mcg Tablet) 25 mcg PO DAILY@0600 [facility] Last Admin: 06/02/22 06:48 Dose: 25 mcg Documented By: SADAF Metoprolol Tartrate (Metoprolol Tartrate 25 Mg Tablet) 25 mg PO BID [facility]; Protocol Last Admin: 06/02/22 07:57 Dose: 25 mg Documented By: MARIA LUZ Modafinil (Modafinil 100 Mg Tablet) 200 mg PO DAILY [facility] Last Admin: 06/02/22 07:56 Dose: 200 mg Documented By: MARIA LUZ Omeprazole (Omeprazole 20 Mg/10 Ml Susp.Recon) 40 mg G-TUBE DAILY@0630 [facility] Last Admin: 06/02/22 06:48 Dose: 40 mg Documented By: SADAF Pharmacy Consult (Consult Rx Perform Med Rec) 1 each MISCELLANE ONCE PRN PRN Reason: Consult order Sodium Chloride (0.9 % Sodium Chloride Flush 3 Ml Syringe) 3 ml IVFLUSH QSHIFT [facility] Last Admin: 06/02/22 07:57 Dose: 3 ml Documented By: MARIA LUZ Labs CBC & Chem 7: 06/02/22 05:21 06/02/22 05:21 Labs: Laboratory Results - last 24 hr 06/01/22 06/01/22 06/01/22 11:06 11:22 11:22 MCV MCH MCHC RDW Plt Count MPV Absolute Nucleated RBC Nucleated RBC % (auto) VBG pH 7.51 H VBG pCO2 39 VBG pO2 51 VBG HCO3 32 H VBG O2 Saturation 82.0 VBG Base Excess 8.9 Anion Gap Estim Creat Clear Calc Estimated GFR POC Glucose 361 H* Random Glucose Calcium Ammonia 40 06/01/22 06/01/22 06/01/22 11:27 15:57 19:38 MCV MCH MCHC RDW Plt Count MPV Absolute Nucleated RBC Nucleated RBC % (auto) VBG pH 7.51 H VBG pCO2 39 VBG pO2 51 VBG HCO3 32 H VBG O2 Saturation 82.0 VBG Base Excess 8.9 Anion Gap Estim Creat Clear Calc Estimated GFR POC Glucose 337 H 399 H* Random Glucose Calcium Ammonia 06/02/22 06/02/22 06/02/22 05:21 05:21 07:39 MCV 93.1 MCH 31.2 MCHC 33.5 RDW 17.0 H Plt Count 90 L MPV 11.8 Absolute Nucleated RBC 0.000 Nucleated RBC % (auto) 0.0 VBG pH VBG pCO2 VBG pO2 VBG HCO3 VBG O2 Saturation VBG Base Excess Anion Gap 10 L Estim Creat Clear Calc 31.2 Estimated GFR 24 POC Glucose 391 H* Random Glucose 473 H* Calcium 7.9 L Ammonia 06/02/22 10:59 MCV MCH MCHC RDW Plt Count MPV Absolute Nucleated RBC Nucleated RBC % (auto) VBG pH VBG pCO2 VBG pO2 VBG HCO3 VBG O2 Saturation VBG Base Excess Anion Gap Estim Creat Clear Calc Estimated GFR POC Glucose 394 H* Random Glucose Calcium Ammonia Assessment and Plan (1) Toxic metabolic encephalopathy: Status: Acute Plan 61/m with CKD3, HTN, schizophrenia, diastolic CHF frequent hospitalization was admitted on 05/17 for anasarca, exacerbation of CHF, encephalopathy and was being diuressed, he became increasingly more confused, agitated and agressive with some adjustment t Psych meds..on 05/19 he vomitted and aspirated resulting in PEA arrest and was intubated and admitted to ICU with prolonged course and was finally extubated [facility] with high concern of oral feeding in him again and therefore a PEG is planned #. Underlying Parkinson?s dz, on Sinemet. #. Underlying schizophrenia. #. Underlying dementia. #. Underlying alcoholic cirrhosis. #. Underlying hepatic encephalopathy.? Continuing the rifaximin and Lactulose?, last ammonia level 41 on 05/30 #. Admitted with AMS.? His baseline mental status was severely deteriorated since his hospitalization in February.? Very suggestive that either his dementia and/or his Parkinson's and/or schizophrenia are getting worse.? His mental status now is even worse.? At this point, the only thing we need to continue is his Sinemet.? Discussed with Melonie Pacheco from Psychiatry with following recommendation on 05/28 Recommend to hold prolixin MARTINEZ 25 mg [id number] and monitor for worsening psychosis. Pt no longer on Geodon. If pt becomes agitated, would recommend seroquel low dose i.e. 25-50 mg Q6H PRN due to pt having parkinsonian dementia. Would avoid high potency neuroleptics, anticholinergic agents, or benzodiazepines. Pt was started on provigil in the ICU to help with lethargy. Will monitor for activating side effects. He is again very lethargic this morning and unable to swllow safely.. repeat ammonia level today, he remains encephalopathic, ABG yesterday was ok, CT head no acute finding, sodium is corrected... He is not doing well . #. Status post cardiac arrest. #. Presumed aspiration pneumonia.? Was treated w a 5-day course of Unasyt.? The sputum gram stain and cx are unremarkable. had fever and increased WBC on 05/31 and restarted on Zosyn for reaspiration , WBC down again #. Encephalopathy.?.? The cardiac arrest was brief enough that he doesn?t seem to have suffered much additional cerebral insult.? hoping that the Provigil will get him more awake and interactive. #. Hypoxemic resp failure.? Was most likely CHF.? Much improved after vigorous diuresis. He reamins edematous but now has hypernatremia and therefore dc lasix and diamonx #. ERNST.? Creat improving but the ratio is climbing.? We?ve just about reached his limit for diuresis.?? Diuril stopped 05/28, Lasix drip stopped due t high sodium level #. Diastolic heart failure and right heart failure.? #. Massive anasarca.? 2? above factors.? Hugely improved, however remains edematous probably from low protein state #. Metabolic alkalosis.? Secondary to vigorous diuresis.? bicab 33 Diamonx stopped #. DM.? On SS insulin. #. Anemia -- acute on chronic.? F/u hemoccult was negative again.? Undoubtedly has anemia of chronic disease ( ACD). #. Leukopenia.? Chronic. now leukocytosis #. Thrombocytopenia.? Chronic.? May be related to his liver disease. #. Hypokalemia.? Repleted enterally. #. Hypomagnesemia.? Repleted and normnal #. Hypernatremia--due to free water deficit, and Lasix.. sodium dwain to normal now #. Mild coagulopathy.? 2? liver disease.? Corrected after 50 mg Vit K. #. Decubitus ulcers, as above.? Usual care. #. Nutrition.?we think the days of Adilson taking anything orally may be coming to an end.? He needs a feeding tube unless he becomes more alert and able to eat safely.? Discussed with Dr. Berry from GI at great length.? She reviewed the CT scan.? Because of his ascites, he?ll likely need a surgical gastrostomy.? Have consulted Dr. Lizarraga.? An alternative is for a percutaneous Gtube by IR under CT guidance to avoid his varices.? In the meantime, has KO feed tube since 05/28 for feeding and for his Sinemet. Reportedly he was eating on his own before coming to the hospital and for now Dr. Lizarraga recommend hold off until his mental status improves and reasess for swallowing #. Code status.? Discussed with Dr. Moon at some length.? In our opinion, Adilson's quality of life is getting much worse.? If he gets intubated again, it?s going to result in a tracheostomy and PEG, and no quality of life.?We don't feel that that would be in his interest.? He should have DNR/DNI status, maybe even [employer] WORK[employer] status.? Dr Myers discussed that on May 26 with his guardian, Tanesha Pruitt ([phone]).? She agrees, but a court order would be needed to establish the DNR status.? She said that she has never done that before, and she does not think that the attorneys in her office have done it.? Dr. Myers discussed that with Mila Mulligan from Case Management, and asked her to patino the process with Alexandra and Mrs. Pruitt so that we could get the DNR/DNI status done within the next few days, in case something happens.? In the meantime, if something does happen, Adilson will have to be reintubated... Dr. Lizarraga will considider PEG when he's much more stable Full Code DVT Prophylaxis: Heparin Inpatient: Post ICU care, needs PEG for feeding and continuing pysch meds adjustment, remains altered not at baseline, electrolytes imbalance Quality Stroke Does the patient have a stroke diagnosis?: No VTE Prior VTE?: No VTE Risk Level:: Medical - moderate - high VTE Device Contraindication: Treatment Not Indicated VTE Drug Contraindication: N/A - Med Ordered
[2022-06-02 11:33] VITALS: BP 168/69; PULSE 62; RESP 15; TEMP 36.8; O2SAT 95
[2022-06-02 15:52] LABS: Glucose, Whole Blood 325 mg/dL (60-115)
[2022-06-02 15:53] VITALS: BP 170/68; PULSE 62; RESP 18; TEMP 37.8; O2SAT 94
[2022-06-02 20:00] VITALS: BP 170/58; PULSE 67; RESP 18; TEMP 37.8; O2SAT 96
[2022-06-02 20:38] LABS: Glucose, Whole Blood 261 mg/dL (60-115)
[2022-06-02 22:49] VITALS: TEMP 37.7
[2022-06-03] VITALS (8 sets, daily range): BP systolic 147–184; BP diastolic 57–74; PULSE 58–75; RESP 17–28; TEMP 36.7–37.3; O2SAT 95–98; BMI 30.9
[2022-06-03] MEDS: 0.9 % Sodium Chloride Flush 3 ML SYRINGE IVFLUSH ×4 (00:24→22:55)
[2022-06-03] MEDS: Piperacillin Sodium/Tazobactam 4.5 GM in 0.9 % Sodium Chloride 100 ML IV ×3 (00:24→17:12)
[2022-06-03] MEDS: hydrALAZINE HCl 20 MG/ML VIAL 10 MG IVPUSH (04:33)
[2022-06-03] MEDS: Levothyroxine Sodium 25 MCG TABLET PO (05:26)
[2022-06-03] MEDS: Heparin Sodium,Porcine 5,000 UNIT/ML VIAL 5000 UNIT SUBCUT ×3 (05:26→22:50)
[2022-06-03 07:16] LABS: Anion Gap 13 (12-20); Blood Urea Nitrogen 67 mg/dL (9-16); Calcium 7.8 mg/dL (8.4-10.2); Carbon Dioxide 29 mmol/L (22-29); Chloride 111 mmol/L (96-108); Creatinine Clr Calc Pharmacy 34.7; Estimated Glomerular Filt Rate 26; Glucose Random 296 mg/dL (60-115); Sodium 150 mmol/L (135-145)
[2022-06-03 07:30] LABS: Glucose, Whole Blood 272 mg/dL (60-115)
[2022-06-03] MEDS: Insulin Lispro 100 UNIT/ML 3 ML VIAL SUBCUT ×4 (08:04→22:50)
[2022-06-03] MEDS: Insulin Glargine,Hum.rec.anlog 100 UNIT/ML 10 ML VIAL 10 UNIT SUBCUT (08:05)
[2022-06-03] MEDS: Metoprolol Tartrate 25 MG TABLET PO ×2 (08:05→22:50)
[2022-06-03] MEDS: modafiniL 100 MG TABLET 200 MG PO (08:05)
[2022-06-03] MEDS: amLODIPine Besylate 10 MG TABLET PO (08:05)
[2022-06-03] MEDS: Carbidopa/Levodopa 25/100 TABLET 1 TAB PO ×4 (08:05→22:50)
--- NOTE | 2022-06-03 10:21 | P.PNIM_ITS ---
Subjective Subjective Date of Service: 06/03/22 Interval History: F/u on post ICU stay following PEA arrest, respiratory failure likely aspiration, encephalopathy He is more awake and alert today your very confused and not making any sense. Sodium level is is going back up Review of Systems Gen: +fever confused Physical Exam Vital Signs: Vital Signs: Last Vital Signs Temp 98.9 F 06/03/22 07:14 Pulse 75 06/03/22 07:14 Resp 18 06/03/22 07:14 BP 173/60 H 06/03/22 07:14 Pulse Ox 95 06/03/22 07:14 O2 Del Method 06/03/22 07:14 O2 Flow Rate 2.5 06/03/22 07:14 FiO2 25 05/26/22 09:00 BMI result Body Mass Index 30.9 Const: Other: General: lethargic but no distress, He is not talking at all, no gurgling Resp: rohan rhonchi, no accessory muscle use CVS: S1,S2,RRR--Swelling in all arms GI: +BS, NT, no distention Skin: No rash, He has a 1/2 x 3 cm stage 2 decubitus on his? coccyx, a 1 cm DTI on his medial right buttock, and a 3 x 3 DTI on his left buttock Neuro: motor grossly intact, He moves all 4 spontaneously. Psych: flat Objective Data Active Medications Acetaminophen (Acetaminophen Supp 650 Mg Supp.Rect) 650 mg [place] Q6H PRN PRN Reason: Fever >100.4 Last Admin: 06/02/22 11:55 Dose: 650 mg Documented By: MARIA LUZ Amlodipine Besylate (Amlodipine Besylate 10 Mg Tablet) 10 mg PO DAILY [facility]; Protocol Last Admin: 06/03/22 08:05 Dose: 10 mg Documented By: ELVER Carbidopa/Levodopa (Carbidopa/Levodopa 25/100 Tablet) 1 tab PO QID [facility] Last Admin: 06/03/22 08:05 Dose: 1 tab Documented By: ELVER Heparin Sodium (Porcine) (Heparin Sodium,Porcine 5,000 Unit/Ml Vial) 5,000 unit SUBCUT Q8H [facility] Last Admin: 06/03/22 05:26 Dose: 5,000 unit Documented By: MEKHI Hydralazine HCl (Hydralazine Hcl 20 Mg/Ml Vial) 10 mg IVPUSH Q6H [facility]; Protocol PRN Reason: SBP > 180 Last Admin: 06/03/22 04:33 Dose: 10 mg Documented By: MEKHI Piperacillin Sod/Tazobactam (Sod 4.5 gm/ Sodium Chloride) 100 mls @ 200 mls/hr IV Q8H [facility] Last Infusion: 06/03/22 08:39 Dose: 0 mls/hr Documented By: ELVER Insulin Glargine (Insulin Glargine,Hum.Rec.Anlog 100 Unit/Ml 10 Ml Vial) 10 unit SUBCUT DAILY [facility] Last Admin: 06/03/22 08:05 Dose: 10 unit Documented By: ELVER Insulin Human Lispro (Insulin Lispro 100 Unit/Ml 3 Ml Vial) 0 unit SUBCUT QIDACHS [facility]; Protocol Last Admin: 06/03/22 08:04 Dose: 6 unit Documented By: ELVER Lactulose (Lactulose 20 Gm/30 Ml Solution) 20 gm OG-TUBE Q6H [facility] Last Admin: 05/22/22 20:46 Dose: 20 gm Documented By: CARMELITA Levothyroxine Sodium (Levothyroxine Sodium 25 Mcg Tablet) 25 mcg PO DAILY@0600 [facility] Last Admin: 06/03/22 05:26 Dose: 25 mcg Documented By: MEKHI Metoprolol Tartrate (Metoprolol Tartrate 25 Mg Tablet) 25 mg PO BID [facility]; Protocol Last Admin: 06/03/22 08:05 Dose: 25 mg Documented By: ELVER Modafinil (Modafinil 100 Mg Tablet) 200 mg PO DAILY [facility] Last Admin: 06/03/22 08:05 Dose: 200 mg Documented By: ELVER Omeprazole (Omeprazole 20 Mg/10 Ml Susp.Recon) 40 mg G-TUBE DAILY@0630 [facility] Last Admin: 06/03/22 05:26 Dose: 40 mg Documented By: MEKHI Pharmacy Consult (Consult Rx Perform Med Rec) 1 each MISCELLANE ONCE PRN PRN Reason: Consult order Sodium Chloride (0.9 % Sodium Chloride Flush 3 Ml Syringe) 3 ml IVFLUSH QSHIFT [facility] Last Admin: 06/03/22 08:05 Dose: 3 ml Documented By: ELVER Labs CBC & Chem 7: 06/02/22 05:21 06/03/22 06:11 Labs: Laboratory Results - last 24 hr 06/02/22 06/02/22 06/02/22 10:59 15:47 20:32 Anion Gap Estim Creat Clear Calc Estimated GFR POC Glucose 394 H* 325 H 261 H Random Glucose Calcium 06/03/22 06/03/22 06:11 07:11 Anion Gap 13 Estim Creat Clear Calc 34.7 Estimated GFR 26 POC Glucose 272 H Random Glucose 296 H D Calcium 7.8 L Assessment and Plan (1) Toxic metabolic encephalopathy: Status: Acute Plan 61/m with CKD3, HTN, schizophrenia, diastolic CHF frequent hospitalization was admitted on 05/17 for anasarca, exacerbation of CHF, encephalopathy and was being diuressed, he became increasingly more confused, agitated and agressive with some adjustment t Psych meds..on 05/19 he vomitted and aspirated resulting in PEA arrest and was intubated and admitted to ICU with prolonged course and was finally extubated and transfer back to [facility] on with high concern of oral feeding in him again and therefore a PEG is planned Neuro/Psych #. Underlying Parkinson?s dz, on Sinemet. #. Underlying schizophrenia. #. Underlying dementia. #. Underlying hepatic encephalopathy.? Continuing the rifaximin and Lactulose?, ammonia levels have been stable #. Admitted with AMS.? His baseline mental status was severely deteriorated since his hospitalization in February.? Very suggestive that either his dementia and/or his Parkinson's and/or schizophrenia are getting worse.? His mental status now is even worse.? At this point, the only thing we need to continue is his Sinemet.? Discussed with Melonie Pacheco from Psychiatry with following recommendation on 05/28 Recommend to hold prolixin MARTINEZ 25 mg [id number] and monitor for worsening psychosis. Pt no longer on Geodon. If pt becomes agitated, would recommend seroquel low dose i.e. 25-50 mg Q6H PRN due to pt having parkinsonian dementia. Would avoid high potency neuroleptics, anticholinergic agents, or benzodiazepines. Pt was started on provigil in the ICU to help with lethargy. Will monitor for activating side effects. 06/03 a bit more alert today, will continue to monitor.. I don't believe provigil is doing him any good and will stop it Cardiac. arrest was brief with PEA and unclear if contributing to anoxic injury HTN--continue metoporolol, Norvasc and IV hydralzine PRN Heart failure (acute on chronic diastolic heart failure )with Hypoxemic resp failure.? Was most likely CHF.? Much improved after vigorous diuresis. Much less edematous and d/t hi Na Lasix on hold now Resp #. Presumed aspiration pneumonia.? Was treated w a 5-day course of Unasyt.? The sputum gram stain and cx are unremarkable. had fever and increased WBC on 05/31 and restarted on Zosyn for reaspiration , WBC down again. Presently breathing comoftably Renal #. CKD 3 with ERNST.? Creatintine is presently within his baseline 2.5 to 3\ #Hypokalemia--replace orally #. Metabolic alkalosis.? Secondary to vigorous diuresis.? Was ib Diamonx stopped, bicab is now 29 #Hyernatremia--d/t free water deficit,..Na up to 150 today, incrase water in tube feed and gentle D5 #Hypomag--corrected Endo #. DM.? Sugars on high side but better -continue Lantus and SSI Heme #. Leukopenia.? Chronic. now leukocytosis #. Thrombocytopenia.? Chronic.? May be related to his liver disease. #. Anemia -- acute on chronic.? F/u hemoccult was negative again.? Undoubtedly has anemia of chronic disease ( ACD). -he was transfused on 05/24 when hct was 21, baseline about 26 #. Mild coagulopathy.? 2? liver disease.? Corrected after 50 mg Vit K. Skin #. Decubitus ulcers, as above.? Usual care. Frequent turning #. Nutrition.?we think the days of Adilson taking anything orally may be coming to an end.? He needs a feeding tube unless he becomes more alert and able to eat safely.? Dr. beach has been asked to place a PEG and has gotten consent from guardian yet wants to hold to see if he is eventually able to take oral diet when more awake as he is very high risk. - For now Tube feed -Correct electrolytes PRN #. Code status. Full code, but attempt is been made to obtain DNR/DNI through court system, guardian not able to do it at this time Full Code DVT Prophylaxis: Heparin Inpatient: Post ICU care, needs PEG for feeding and continuing pysch meds adjustment, remains altered not at baseline, electrolytes imbalances, altered mental.. just seee above Quality Stroke Does the patient have a stroke diagnosis?: No VTE Prior VTE?: No VTE Risk Level:: Medical - moderate - high VTE Device Contraindication: Treatment Not Indicated VTE Drug Contraindication: N/A - Med Ordered
--- NOTE | 2022-06-03 10:34 | MHC.CLN ---
Addendum entered by Sabiha Gentile, ALYSA 06/03/22 10:38: NOTED SERUM NA 150 WHEN SERUM NA WNL; RECOMMEND REDUCING FREE WATER FLUSHES TO 240 Q 8 HRS MONITOR SERUM NA LEVELS CLOSELY Original Note: F/U PT WITH NG TUBE IN PLACE PT RECEIVING PROMOTE AT MAX GOAL RATE OF 90ML/HR WITH 300ML Q 4 HOURS PROVIDES 2160KCALS (23KCALS/KG), 135G PROTEIN (1.4G/KG) FOR WOUND HEALING, 3612ML TOTAL WATER FROM FORMULA AND FLUSHES (38ML/KG BASED ON CMW) CONTINUE TO MONITOR TOLERANCE, RESIDUALS AND LYTES AWAITING PEG
[2022-06-03] MEDS: Dextrose 5 % 1,000 ML 75 ML IVCONT ×2 (11:03→22:55)
[2022-06-03 11:19] LABS: Glucose, Whole Blood 283 mg/dL (60-115)
[2022-06-03 11:39] LABS: Magnesium 2.3 mg/dL (1.6-2.6)
[2022-06-03 15:50] LABS: Glucose, Whole Blood 287 mg/dL (60-115)
[2022-06-03 19:22] LABS: Anion Gap 12 (12-20); Blood Urea Nitrogen 66 mg/dL (9-16); Calcium 7.8 mg/dL (8.4-10.2); Carbon Dioxide 29 mmol/L (22-29); Chloride 110 mmol/L (96-108); Creatinine Clr Calc Pharmacy 35.6; Estimated Glomerular Filt Rate 26; Glucose Random 393 mg/dL (60-115); Potassium 2.6 mmol/L (3.3-5.1); Sodium 148 mmol/L (135-145)
[2022-06-03 20:23] LABS: Glucose, Whole Blood 337 mg/dL (60-115)
[2022-06-03 22:40] LABS: Glucose, Whole Blood 370 mg/dL (60-115)
[2022-06-04] VITALS (7 sets, daily range): BP systolic 164–177; BP diastolic 56–79; PULSE 66–78; RESP 17–22; TEMP 36.7–38.2; O2SAT 92–97; BMI 28.2
[2022-06-04] MEDS: Piperacillin Sodium/Tazobactam 4.5 GM in 0.9 % Sodium Chloride 100 ML IV ×3 (02:13→16:41)
[2022-06-04] MEDS: Heparin Sodium,Porcine 5,000 UNIT/ML VIAL 5000 UNIT SUBCUT ×3 (05:33→21:14)
[2022-06-04] MEDS: Levothyroxine Sodium 25 MCG TABLET PO (05:33)
[2022-06-04 07:34] LABS: Glucose, Whole Blood 448 mg/dL (60-115)
--- NOTE | 2022-06-04 07:55 | P.PNIM_ITS ---
Subjective Subjective Date of Service: 06/04/22 Interval History: F/u on post ICU stay following PEA arrest, respiratory failure likely aspiration, encephalopathy Not as awake today, sodium level is trending down, potassium is better Review of Systems Review of Systems: Yes Unobtainable due to mental status Physical Exam Vital Signs: Vital Signs: Last Vital Signs Temp 99.2 F 06/04/22 07:29 Pulse 78 06/04/22 07:29 Resp 20 06/04/22 07:29 BP 167/73 H 06/04/22 07:29 Pulse Ox 96 06/04/22 07:29 O2 Del Method 06/04/22 07:29 O2 Flow Rate 2 06/04/22 07:29 FiO2 25 05/26/22 09:00 BMI result Body Mass Index 28.2 Const: Other: General: lethargic but no distress,?He is not talking at all, no gurgling Resp:? rohan rhonchi, no accessory muscle use CVS: S1,S2,RRR--Swelling in all arms GI: +BS, NT, no distention Skin: No rash,?He has a 1/2 x 3 cm stage 2 decubitus on his? coccyx, a 1 cm DTI on his medial right buttock, and a 3 x 3 DTI on his left buttock Neuro:? motor grossly intact,?He moves all 4 spontaneously. Psych: flat Objective Data Active Medications Acetaminophen (Acetaminophen Supp 650 Mg Supp.Rect) 650 mg [place] Q6H PRN PRN Reason: Fever >100.4 Last Admin: 06/02/22 11:55 Dose: 650 mg Documented By: MARIA LUZ Amlodipine Besylate (Amlodipine Besylate 10 Mg Tablet) 10 mg PO DAILY [facility]; Protocol Last Admin: 06/03/22 08:05 Dose: 10 mg Documented By: ELVER Carbidopa/Levodopa (Carbidopa/Levodopa 25/100 Tablet) 1 tab PO QID [facility] Last Admin: 06/03/22 22:50 Dose: 1 tab Documented By: THANH Heparin Sodium (Porcine) (Heparin Sodium,Porcine 5,000 Unit/Ml Vial) 5,000 unit SUBCUT Q8H [facility] Last Admin: 06/04/22 05:33 Dose: 5,000 unit Documented By: THANH Hydralazine HCl (Hydralazine Hcl 20 Mg/Ml Vial) 10 mg IVPUSH Q6H PRN; Protocol PRN Reason: SBP > 180 Last Admin: 06/03/22 04:33 Dose: 10 mg Documented By: MEKHI Piperacillin Sod/Tazobactam (Sod 4.5 gm/ Sodium Chloride) 100 mls @ 200 mls/hr IV Q8H [facility] Last Infusion: 06/04/22 03:39 Dose: 0 mls/hr Documented By: THANH Potassium Chloride/Dextrose () 20 meq in 1,000 mls @ 100 mls/hr IVCONT .Q10H [facility] Insulin Glargine (Insulin Glargine,Hum.Rec.Anlog 100 Unit/Ml 10 Ml Vial) 18 unit SUBCUT DAILY [facility] Insulin Human Lispro (Insulin Lispro 100 Unit/Ml 3 Ml Vial) 0 unit SUBCUT QIDACHS [facility]; Protocol Last Admin: 06/03/22 22:50 Dose: 10 unit Documented By: THANH Insulin Human Lispro (Insulin Lispro 100 Unit/Ml 3 Ml Vial) 7 unit SUBCUT ONCE ONE Stop: 06/04/22 07:43 Lactulose (Lactulose 20 Gm/30 Ml Solution) 20 gm OG-TUBE Q6H [facility] Last Admin: 05/22/22 20:46 Dose: 20 gm Documented By: CARMELITA Levothyroxine Sodium (Levothyroxine Sodium 25 Mcg Tablet) 25 mcg PO DAILY@0600 [facility] Last Admin: 06/04/22 05:33 Dose: 25 mcg Documented By: THANH Metoprolol Tartrate (Metoprolol Tartrate 25 Mg Tablet) 25 mg PO BID [facility]; Protocol Last Admin: 06/03/22 22:50 Dose: 25 mg Documented By: THANH Modafinil (Modafinil 100 Mg Tablet) 200 mg PO DAILY [facility] Last Admin: 06/03/22 08:05 Dose: 200 mg Documented By: ELVER Omeprazole (Omeprazole 20 Mg/10 Ml Susp.Recon) 40 mg G-TUBE DAILY@0630 [facility] Last Admin: 06/04/22 05:33 Dose: 40 mg Documented By: THANH Pharmacy Consult (Consult Rx Perform Med Rec) 1 each MISCELLANE ONCE PRN PRN Reason: Consult order Potassium Chloride (Potassium Chloride Packet 20 Meq Packet) 40 meq G-TUBE ONCE ONE Stop: 06/04/22 07:48 Sodium Chloride (0.9 % Sodium Chloride Flush 3 Ml Syringe) 3 ml IVFLUSH QSHIFT [facility]RE[facility] Last Admin: 06/03/22 22:55 Dose: 3 ml Documented By: THANH Labs CBC & Chem 7: 06/04/22 08:01 06/04/22 08:01 Labs: Laboratory Results - last 24 hr 06/03/22 06/03/22 06/03/22 06:11 11:12 15:46 Anion Gap Estim Creat Clear Calc Estimated GFR POC Glucose 283 H 287 H Random Glucose Calcium Magnesium 2.3 06/03/22 06/03/22 06/03/22 17:50 20:20 22:37 Anion Gap 12 Estim Creat Clear Calc 35.6 Estimated GFR 26 POC Glucose 337 H 370 H* Random Glucose 393 H* Calcium 7.8 L Magnesium 06/04/22 07:30 Anion Gap Estim Creat Clear Calc Estimated GFR POC Glucose 448 H* Random Glucose Calcium Magnesium Assessment and Plan (1) Toxic metabolic encephalopathy: Status: Acute Plan 61/m with CKD3, HTN, schizophrenia, diastolic CHF frequent hospitalization was admitted on 05/17 for anasarca, exacerbation of CHF, encephalopathy and was being diuressed, he became increasingly more confused, agitated and agressive with some adjustment t Psych meds..on 05/19 he vomitted and aspirated resulting in PEA arrest and was intubated and admitted to ICU with prolonged course and was finally extubated and transfer back to formerly [facility] on 71 with high concern of oral feeding in him again and therefore a PEG is planned Neuro/Psych #. Underlying Parkinson?s dz, on Sinemet. #. Underlying schizophrenia. #. Underlying dementia. #. Underlying hepatic encephalopathy.? Continuing the rifaximin and Lactulose?, ammonia levels have been stable #. Admitted with AMS.? His baseline mental status was severely deteriorated since his hospitalization in February.? Very suggestive that either his dementia and/or his Parkinson's and/or schizophrenia are getting worse.? His mental status now is even worse.? At this point, the only thing we need to continue is his Sinemet.? Discussed with Melonie Pacheco from Psychiatry with following recommendation on 05/28 Recommend to hold prolixin MARTINEZ 25 mg [id number] and monitor for worsening psychosis. Pt no longer on Geodon. If pt becomes agitated, would recommend seroquel low dose i.e. 25-50 mg Q6H PRN due to pt having parkinsonian dementia. Would avoid high potency neuroleptics, anticholinergic agents, or benzodiazepi kb. Pt was started on provigil in the ICU to help with lethargy. Will monitor for activating side effects. 06/03 a bit more alert today, will continue to monitor.. I don't believe provigil is doing him any good and will stop it Cardiac. arrest was brief with PEA and unclear if contributing to anoxic injury HTN--continue metoporolol, Norvasc and IV hydralzine PRN Heart failure (acute on chronic diastolic heart failure )with Hypoxemic resp failure.? Was most likely CHF.? Much improved after vigorous diuresis. Much less edematous and d/t hi Na Lasix on hold now Resp #. Presumed aspiration pneumonia.? Was treated w a 5-day course of Unasyt.? The sputum gram stain and cx are unremarkable. had fever and increased WBC on 05/31 and restarted on Zosyn D5 for reaspiration , WBC down again. Presently breathing comoftably Renal #. CKD 3 with ERNST.? Creatintine is presently within his baseline 2.5 to 3 #Hypokalemia--replace via IV and oral route and repeat labs later #. Metabolic alkalosis.? Secondary to vigorous diuresis.? Was ib Diamonx stopped, bicab is now 29 #Hyernatremia--d/t free water deficit,..Na up to 150 today, incrase water in tube feed and gentle D5 #Hypomag--corrected Endo #. DM.? Sugars on high side but better -continue Lantus and SSI Heme #. Leukopenia.? Chronic. now leukocytosis #. Thrombocytopenia.? Chronic.? May be related to his liver disease. #. Anemia -- acute on chronic.? F/u hemoccult was negative again.? Undoubtedly has anemia of chronic disease ( ACD). -he was transfused on 05/24 when hct was 21, baseline about 26 #. Mild coagulopathy.? 2? liver disease.? Corrected after 50 mg Vit K. Skin #. Decubitus ulcers, as above.? Usual care. Frequent turning #. Nutrition.?Presently on tube feed via NGT, and if doesn't become more alert and eat on his own, he might need a PEG. -Correct electrolytes PRN #. Code status. Full code, but attempt is been made to obtain DNR/DNI through court system, guardian not able to do it at this time Full Code DVT Prophylaxis: Heparin Inpatient: Post ICU care, needs PEG for feeding and continuing pysch meds adjustment, remains altered not at baseline, electrolytes imbalances, altered mental.. just seee above Quality Stroke Does the patient have a stroke diagnosis?: No VTE Prior VTE?: No VTE Risk Level:: Medical - moderate - high VTE Device Contraindication: Treatment Not Indicated VTE Drug Contraindication: N/A - Med Ordered
[2022-06-04] MEDS: Insulin Glargine,Hum.rec.anlog 100 UNIT/ML 10 ML VIAL 18 UNIT SUBCUT (08:10)
[2022-06-04] MEDS: Insulin Lispro 100 UNIT/ML 3 ML VIAL 7 UNIT SUBCUT ×2 (08:10→16:45)
[2022-06-04] MEDS: Potassium Chloride Packet 20 MEQ PACKET 40 MEQ G-TUBE (08:11)
[2022-06-04] MEDS: Insulin Lispro 100 UNIT/ML 3 ML VIAL SUBCUT ×4 (08:11→21:15)
[2022-06-04] MEDS: KCl 20 mEq in 5 % Dextrose 20 MEQ/1,000 ML IV.SOLN 100 MEQ IVCONT ×2 (08:12→18:37)
[2022-06-04] MEDS: modafiniL 100 MG TABLET 200 MG PO (08:12)
[2022-06-04] MEDS: 0.9 % Sodium Chloride Flush 3 ML SYRINGE IVFLUSH ×2 (08:12→12:45)
[2022-06-04] MEDS: amLODIPine Besylate 10 MG TABLET PO (08:13)
[2022-06-04] MEDS: Acetaminophen Supp 650 MG SUPP.RECT PR ×2 (08:13→18:28)
[2022-06-04] MEDS: Carbidopa/Levodopa 25/100 TABLET 1 TAB PO ×4 (08:13→21:14)
[2022-06-04] MEDS: Metoprolol Tartrate 25 MG TABLET PO ×2 (08:13→21:14)
[2022-06-04 08:24] LABS: Hematocrit 23.9 % (42.0-52.0); Mean Corpuscular HGB Conc 33.5 g/dl (31.0-36.0); Mean Corpuscular Volume 92.6 fL (80.0-98.0); Mean Platelet Volume 12.2 fL (9.4-12.4); Red Blood Count 2.58 X10*6/uL (4.60-5.80); Red Cell Distribution Width 16.9 % (11.0-16.0); White Blood Count 4.9 X10*3/uL (4.8-10.8)
[2022-06-04 08:30] LABS: Platelet Count 96 X10*3/uL (160-400)
[2022-06-04 09:19] LABS: Anion Gap 12 (12-20); Blood Urea Nitrogen 59 mg/dL (9-16); Calcium 7.5 mg/dL (8.4-10.2); Carbon Dioxide 27 mmol/L (22-29); Chloride 110 mmol/L (96-108); Creatinine Clr Calc Pharmacy 34.9; Estimated Glomerular Filt Rate 27; Magnesium 2.5 mg/dL (1.6-2.6); Potassium 3.1 mmol/L (3.3-5.1); Sodium 146 mmol/L (135-145)
[2022-06-04 11:32] LABS: Glucose, Whole Blood 423 mg/dL (60-115)
[2022-06-04 12:36] LABS: Glucose Random 559 mg/dL (60-115)
[2022-06-04] MEDS: Insulin Lispro 100 UNIT/ML 3 ML VIAL 8 UNIT SUBCUT (12:44)
[2022-06-04 15:53] LABS: Glucose, Whole Blood 427 mg/dL (60-115)
[2022-06-04 18:07] LABS: Anion Gap 11 (12-20); Blood Urea Nitrogen 61 mg/dL (9-16); Calcium 7.5 mg/dL (8.4-10.2); Carbon Dioxide 28 mmol/L (22-29); Chloride 112 mmol/L (96-108); Creatinine Clr Calc Pharmacy 33.7; Estimated Glomerular Filt Rate 26; Glucose Random 511 mg/dL (60-115); Potassium 3.4 mmol/L (3.3-5.1); Sodium 148 mmol/L (135-145)
--- NOTE | 2022-06-04 18:17 | PC.NURSE ---
Addendum entered by Yulia Harvey RN 06/04/22 18:18: Per new orders, tube feeding max rate at 75ml. Rated decreased by this RN. Original Note: Patient glucose 511 - Dr. Man notified via [employer], per MD will recheck in 2 hours.
--- NOTE | 2022-06-04 18:20 | PC.NURSE ---
Patient has 2 new peripheral IV sites. Clinical coordinator at bedside and removed TLC from Right IJ at 1820.
[2022-06-04 20:14] LABS: Glucose, Whole Blood 353 mg/dL (60-115)
[2022-06-05] VITALS (10 sets, daily range): BP systolic 123–198; BP diastolic 65–92; PULSE 61–92; RESP 16–20; TEMP 36.1–38.6; O2SAT 96–98; BMI 29.0
[2022-06-05] MEDS: Piperacillin Sodium/Tazobactam 4.5 GM in 0.9 % Sodium Chloride 100 ML IV ×3 (01:06→16:49)
[2022-06-05] MEDS: 0.9 % Sodium Chloride Flush 3 ML SYRINGE IVFLUSH ×3 (02:36→16:50)
[2022-06-05] MEDS: Acetaminophen Supp 650 MG SUPP.RECT PR ×2 (02:36→21:50)
[2022-06-05] MEDS: KCl 20 mEq in 5 % Dextrose 20 MEQ/1,000 ML IV.SOLN 100 MEQ IVCONT ×2 (04:47→13:59)
[2022-06-05] MEDS: Levothyroxine Sodium 25 MCG TABLET PO (06:31)
[2022-06-05] MEDS: Heparin Sodium,Porcine 5,000 UNIT/ML VIAL 5000 UNIT SUBCUT ×3 (06:31→21:55)
[2022-06-05 07:52] LABS: Glucose, Whole Blood 314 mg/dL (60-115)
[2022-06-05] MEDS: hydrALAZINE HCl 20 MG/ML VIAL 10 MG IVPUSH (07:59)
[2022-06-05] MEDS: Insulin Lispro 100 UNIT/ML 3 ML VIAL SUBCUT ×5 (07:59→22:41)
--- NOTE | 2022-06-05 08:14 | P.PNIM_ITS ---
Subjective Subjective Date of Service: 06/06/22 Interval History: F/u on post ICU stay following PEA arrest, respiratory failure likely aspiration, encephalopathy remains very somonolent, but moaning more this morning. Has low grade temp, BP elevated, BS are better Review of Systems Gen: +fever confused Physical Exam Vital Signs: Vital Signs: Last Vital Signs Temp 99.5 F 06/05/22 07:19 Pulse 75 06/05/22 07:19 Resp 20 06/05/22 07:19 BP 198/79 H 06/05/22 07:19 Pulse Ox 96 06/05/22 07:19 O2 Del Method 06/05/22 07:19 O2 Flow Rate 2 06/05/22 07:19 FiO2 25 05/26/22 09:00 BMI result Body Mass Index 28.2 Const: Other: General: lethargic but no distress,?He is not talking at all, no gurgling Resp:? rohan rhonchi, no accessory muscle use CVS: S1,S2,RRR--Swelling in all arms GI: +BS, NT, no distention Skin: No rash,?He has a 1/2 x 3 cm stage 2 decubitus on his? coccyx, a 1 cm DTI on his medial right buttock, and a 3 x 3 DTI on his left buttock Neuro:? motor grossly intact,?He moves all 4 spontaneously. Psych: flat Objective Data Active Medications Acetaminophen (Acetaminophen Supp 650 Mg Supp.Rect) 650 mg [place] Q6H PRN PRN Reason: Fever >100.4 Last Admin: 06/05/22 02:36 Dose: 650 mg Documented By: THANH Amlodipine Besylate (Amlodipine Besylate 10 Mg Tablet) 10 mg PO DAILY [facility]; Protocol Last Admin: 06/04/22 08:13 Dose: 10 mg Documented By: KATRIN Carbidopa/Levodopa (Carbidopa/Levodopa 25/100 Tablet) 1 tab PO QID [facility] Last Admin: 06/04/22 21:14 Dose: 1 tab Documented By: THANH Heparin Sodium (Porcine) (Heparin Sodium,Porcine 5,000 Unit/Ml Vial) 5,000 unit SUBCUT Q8H [facility] Last Admin: 06/05/22 06:31 Dose: 5,000 unit Documented By: THANH Hydralazine HCl (Hydralazine Hcl 20 Mg/Ml Vial) 10 mg IVPUSH Q6H PRN; Protocol PRN Reason: SBP > 180 Last Admin: 06/05/22 07:59 Dose: 10 mg Documented By: BIB Piperacillin Sod/Tazobactam (Sod 4.5 gm/ Sodium Chloride) 100 mls @ 200 mls/hr IV Q8H [facility] Last Infusion: 06/05/22 01:55 Dose: 0 mls/hr Documented By: THANH Potassium Chloride/Dextrose () 20 meq in 1,000 mls @ 100 mls/hr IVCONT .Q10H [facility] Last Admin: 06/05/22 04:47 Dose: 100 mls/hr Documented By: THANH Insulin Glargine (Insulin Glargine,Hum.Rec.Anlog 100 Unit/Ml 10 Ml Vial) 20 unit SUBCUT DAILY [facility] Insulin Human Lispro (Insulin Lispro 100 Unit/Ml 3 Ml Vial) 0 unit SUBCUT QIDACHS [facility]; Protocol Last Admin: 06/05/22 07:59 Dose: 8 unit Documented By: BIB Lactulose (Lactulose 20 Gm/30 Ml Solution) 20 gm OG-TUBE Q6H [facility] Last Admin: 05/22/22 20:46 Dose: 20 gm Documented By: CARMELITA Levothyroxine Sodium (Levothyroxine Sodium 25 Mcg Tablet) 25 mcg PO DAILY@0600 [facility] Last Admin: 06/05/22 06:31 Dose: 25 mcg Documented By: THANH Metoprolol Tartrate (Metoprolol Tartrate 25 Mg Tablet) 25 mg PO BID [facility]; Protocol Last Admin: 06/04/22 21:14 Dose: 25 mg Documented By: THANH Modafinil (Modafinil 100 Mg Tablet) 200 mg PO DAILY [facility] Last Admin: 06/04/22 08:12 Dose: 200 mg Documented By: KATRIN Omeprazole (Omeprazole 20 Mg/10 Ml Susp.Recon) 40 mg G-TUBE DAILY@0630 [facility] Last Admin: 06/05/22 06:31 Dose: 40 mg Documented By: THANH Pharmacy Consult (Consult Rx Perform Med Rec) 1 each MISCELLANE ONCE PRN PRN Reason: Consult order Sodium Chloride (0.9 % Sodium Chloride Flush 3 Ml Syringe) 3 ml IVFLUSH QSHIFT [facility] Last Admin: 06/05/22 02:36 Dose: 3 ml Documented By: THANH Labs CBC & Chem 7: 06/04/22 08:01 06/06/22 04:41 Labs: Laboratory Results - last 24 hr 06/04/22 06/04/22 06/04/22 08:01 08:01 11:14 MCV 92.6 MCH 31.0 MCHC 33.5 RDW 16.9 H Plt Count 96 L MPV 12.2 Absolute Nucleated RBC 0.000 Nucleated RBC % (auto) 0.0 Anion Gap 12 Estim Creat Clear Calc 34.9 Estimated GFR 27 POC Glucose 423 H* Random Glucose 559 H* Calcium 7.5 L Magnesium 2.5 06/04/22 06/04/22 06/04/22 15:45 17:34 20:10 MCV MCH MCHC RDW Plt Count MPV Absolute Nucleated RBC Nucleated RBC % (auto) Anion Gap 11 L Estim Creat Clear Calc 33.7 Estimated GFR 26 POC Glucose 427 H* 353 H* Random Glucose 511 H* Calcium 7.5 L Magnesium 06/05/22 07:21 MCV MCH MCHC RDW Plt Count MPV Absolute Nucleated RBC Nucleated RBC % (auto) Anion Gap Estim Creat Clear Calc Estimated GFR POC Glucose 314 H Random Glucose Calcium Magnesium Assessment and Plan (1) Toxic metabolic encephalopathy: Status: Acute Plan 61/m with CKD3, HTN, schizophrenia, diastolic CHF frequent hospitalization was admitted on 05/17 for anasarca, exacerbation of CHF, encephalopathy and was being diuressed, he became increasingly more confused, agitated and agressive with some adjustment t Psych meds..on 05/19 he vomitted and aspirated resulting in PEA arrest and was intubated and admitted to ICU with prolonged course and was finally extubated and transfer back to formerly [facility] on with high concern of oral feeding in him again and therefore a PEG is planned Neuro/Psych #. Underlying Parkinson?s dz, on Sinemet. #. Underlying dementia--type unknown #. Underlying cirrhosis with hepatic encephalopathy.? Continuing the rifaximin and Lactulose?, ammonia levels have been stable #. Underlying schizophrenia.presently no meds #. Admitted with AMS.? His baseline mental status was severely deteriorated since his hospitalization in February.? Very suggestive that either his dementia and/or his Parkinson's and/or schizophrenia are getting worse.? His mental status now is even worse.? At this point, the only thing we need to continue is his Sinemet.? Discussed with Melonie Pacheco from Psychiatry with following recommendation on 05/28 Recommend to hold prolixin MARTINEZ 25 mg [id number] and monitor for worsening psychosis. Pt no longer on Geodon. If pt becomes agitated, would recommend seroquel low dose i.e. 25-50 mg Q6H PRN due to pt having parkinsonian dementia. Would avoid high potency neuroleptics, anticholinergic agents, or benzo diazepines. Pt was started on provigil in the ICU to help with lethargy. Will monitor for activating side effects. 06/03 a bit more alert today, will continue to monitor.. I don't believe provigil is doing him any good and will stop it Cardiac. arrest was brief with PEA and unclear if contributing to anoxic injury HTN--continue metoporolol, Norvasc and IV hydralzine PRN Heart failure (acute on chronic diastolic heart failure )with Hypoxemic resp failure.? Much improved after vigorous diuresis. Much less edematous and d/t hi Na Lasix on hold now Resp #. Presumed aspiration pneumonia.? Was treated w a 5-day course of Unasyt.? The sputum gram stain and cx are unremarkable. had fever and increased WBC on 05/31 and restarted on Zosyn D5 for reaspiration , WBC down again but continues to have low grade fevers Presently breathing comoftably Renal #. CKD 3 with ERNST.? Creatintine is presently within his baseline 2.5 to 3 #Hypokalemia--replace via IV and oral route and repeat labs later #. Metabolic alkalosis.? Secondary to vigorous diuresis.? Was ib Diamonx stopped, bicab is now 29 #Hyernatremia--d/t free water deficit,..Na up to 150 today, incrase water in tube feed and gentle D5 #Hypomag--corrected Endo #. DM.? Sugars on high side but better -continue Lantus and SSI Heme #. Leukopenia.? Chronic. now leukocytosis #. Thrombocytopenia.? Chronic.? May be related to his liver disease. #. Anemia -- acute on chronic.? F/u hemoccult was negative again.? Undoubtedly has anemia of chronic disease ( ACD). -he was transfused on 05/24 when hct was 21, baseline about 26 #. Mild coagulopathy.? 2? liver disease.? Corrected after 50 mg Vit K. Skin #. Decubitus ulcers, as above.? Usual care. Frequent turning #. Nutrition.?Presently on tube feed via NGT, and if doesn't become more alert and eat on his own, he might need a PEG. -Correct electrolytes PRN #. Code status. Full code, but attempt is been made to obtain DNR/DNI through court system, guardian not able to do it at this time Full Code DVT Prophylaxis: Heparin Inpatient: Post ICU care, needs PEG for feeding and continuing pysch meds adjustment, remains altered not at baseline, electrolytes imbalances, altered mental.. just seee above Quality Stroke Does the patient have a stroke diagnosis?: No VTE Prior VTE?: No VTE Risk Level:: Medical - moderate - high VTE Device Contraindication: Treatment Not Indicated VTE Drug Contraindication: N/A - Med Ordered
[2022-06-05 09:17] LABS: Anion Gap 13 (12-20); Blood Urea Nitrogen 56 mg/dL (9-16); Calcium 7.4 mg/dL (8.4-10.2); Carbon Dioxide 25 mmol/L (22-29); Chloride 111 mmol/L (96-108); Creatinine Clr Calc Pharmacy 36.6; Estimated Glomerular Filt Rate 28; Glucose Random 415 mg/dL (60-115); Potassium 3.7 mmol/L (3.3-5.1); Sodium 145 mmol/L (135-145)
[2022-06-05] MEDS: Insulin Glargine,Hum.rec.anlog 100 UNIT/ML 10 ML VIAL 20 UNIT SUBCUT (10:30)
[2022-06-05] MEDS: modafiniL 100 MG TABLET 200 MG PO (10:31)
[2022-06-05] MEDS: Carbidopa/Levodopa 25/100 TABLET 1 TAB PO ×4 (10:31→21:54)
[2022-06-05] MEDS: Metoprolol Tartrate 25 MG TABLET PO ×2 (10:31→21:54)
[2022-06-05] MEDS: amLODIPine Besylate 10 MG TABLET PO (10:31)
[2022-06-05 11:39] LABS: Glucose, Whole Blood 347 mg/dL (60-115)
[2022-06-05 15:53] LABS: Glucose, Whole Blood 378 mg/dL (60-115)
[2022-06-05 19:50] LABS: Glucose, Whole Blood 381 mg/dL (60-115)
[2022-06-06] VITALS (9 sets, daily range): BP systolic 99–179; BP diastolic 42–76; PULSE 66–82; RESP 18–20; TEMP 36.7–38.2; O2SAT 94–98; BMI 29.2
[2022-06-06] MEDS: Piperacillin Sodium/Tazobactam 4.5 GM in 0.9 % Sodium Chloride 100 ML IV ×3 (00:03→17:19)
[2022-06-06] MEDS: KCl 20 mEq in 5 % Dextrose 20 MEQ/1,000 ML IV.SOLN 100 MEQ IVCONT (01:43)
--- NOTE | 2022-06-06 02:40 | PC.NURSE ---
HS POC 381. Dr Armstrong notified, no new orders. Covered per sliding scale of 10Units Lispro. IV fluids infusing as ordered. Promote feedings at 75mls with water boluses as ordered. No residual. Pt repositioned Q2 hours. Medicated for temp with Tylenol suppository with some relief. Ice packs placed under arms and in groin. Will continue to monitor.
[2022-06-06] MEDS: Acetaminophen Supp 650 MG SUPP.RECT PR (03:54)
[2022-06-06 05:17] LABS: Anion Gap 10 (12-20); Blood Urea Nitrogen 56 mg/dL (9-16); Calcium 6.9 mg/dL (8.4-10.2); Carbon Dioxide 26 mmol/L (22-29); Chloride 111 mmol/L (96-108); Creatinine Clr Calc Pharmacy 36.6; Estimated Glomerular Filt Rate 28; Glucose Random 431 mg/dL (60-115); Potassium 4.3 mmol/L (3.3-5.1); Sodium 143 mmol/L (135-145)
[2022-06-06] MEDS: Insulin Lispro 100 UNIT/ML 3 ML VIAL SUBCUT ×5 (05:53→21:53)
[2022-06-06] MEDS: Heparin Sodium,Porcine 5,000 UNIT/ML VIAL 5000 UNIT SUBCUT ×3 (05:54→21:53)
[2022-06-06] MEDS: Levothyroxine Sodium 25 MCG TABLET PO (05:54)
[2022-06-06 07:14] LABS: Glucose, Whole Blood 408 mg/dL (60-115)
[2022-06-06] MEDS: amLODIPine Besylate 10 MG TABLET PO (08:07)
[2022-06-06] MEDS: Carbidopa/Levodopa 25/100 TABLET 1 TAB PO ×4 (08:07→21:54)
[2022-06-06] MEDS: modafiniL 100 MG TABLET 200 MG PO (08:07)
[2022-06-06] MEDS: Insulin Glargine,Hum.rec.anlog 100 UNIT/ML 10 ML VIAL 30 UNIT SUBCUT (08:07)
[2022-06-06] MEDS: Metoprolol Tartrate 25 MG TABLET PO ×2 (08:07→21:54)
[2022-06-06] MEDS: 0.9 % Sodium Chloride Flush 3 ML SYRINGE IVFLUSH ×3 (08:08→22:02)
--- NOTE | 2022-06-06 10:08 | P.PNIM_ITS ---
Subjective Subjective Date of Service: 06/06/22 Interval History: F/u on post ICU stay following PEA arrest, respiratory failure likely aspiration, encephalopathy he is more awake today, and agitated, trying to pull tubes and lines and necessitating restrain, sodium level has corrected as is potassium Review of Systems Gen: +fever confused Physical Exam Vital Signs: Vital Signs: Last Vital Signs Temp 98.7 F 06/06/22 07:35 Pulse 71 06/06/22 07:35 Resp 20 06/06/22 07:35 BP 139/67 06/06/22 07:35 Pulse Ox 97 06/06/22 07:35 O2 Del Method 06/06/22 07:35 O2 Flow Rate 2 06/06/22 07:35 FiO2 25 05/26/22 09:00 BMI result Body Mass Index 29.2 Const: Other: General: lethargic but no distress,?He is not talking at all, no gurgling Resp:? rohan rhonchi, no accessory muscle use CVS: S1,S2,RRR--Swelling in all arms GI: +BS, NT, no distention Skin: No rash,?He has a 1/2 x 3 cm stage 2 decubitus on his? coccyx, a 1 cm DTI on his medial right buttock, and a 3 x 3 DTI on his left buttock Neuro:? motor grossly intact,?He moves all 4 spontaneously. Psych: flat Objective Data Active Medications Acetaminophen (Acetaminophen Supp 650 Mg Supp.Rect) 650 mg [place] Q6H PRN PRN Reason: Fever >100.4 Last Admin: 06/06/22 03:54 Dose: 650 mg Documented By: MARIAH Amlodipine Besylate (Amlodipine Besylate 10 Mg Tablet) [address] [facility]; Protocol Last Admin: 06/06/22 08:07 Dose: 10 mg Documented By: MARIA LUZ Carbidopa/Levodopa (Carbidopa/Levodopa 25/100 Tablet) [address] [facility] Last Admin: 06/06/22 08:07 Dose: 1 tab Documented By: MARIA LUZ Heparin Sodium (Porcine) (Heparin Sodium,Porcine 5,000 Unit/Ml Vial) 5,[address] [facility] Last Admin: 06/06/22 05:54 Dose: 5,000 unit Documented By: MARIAH Hydralazine HCl (Hydralazine Hcl 20 Mg/Ml Vial) 10 mg IVPUSH Q6H PRN; Protocol PRN Reason: SBP > 180 Last Admin: 06/05/22 07:59 Dose: 10 mg Documented By: BIB Piperacillin Sod/Tazobactam (Sod 4.5 gm/ Sodium Chloride) 100 mls @ 200 mls/hr IV Q8H [facility] Last Infusion: 06/06/22 09:24 Dose: 0 mls/hr Documented By: MARIA LUZ Insulin Glargine (Insulin Glargine,Hum.Rec.Anlog 100 Unit/Ml 10 Ml Vial) [address] [facility] Last Admin: 06/06/22 08:07 Dose: 30 unit Documented By: MARIA LUZ Insulin Human Lispro (Insulin Lispro 100 Unit/Ml 3 Ml Vial) [address] [facility]; Protocol Last Admin: 06/06/22 05:53 Dose: 10 unit Documented By: MARIAH Lactulose (Lactulose 20 Gm/30 Ml Solution) 20 gm OG-TUBE Q6H [facility] Last Admin: 05/22/22 20:46 Dose: 20 gm Documented By: CARMELITA Levothyroxine Sodium (Levothyroxine Sodium 25 Mcg Tablet) 25 mcg PO DAILY@0600 [facility] Last Admin: 06/06/22 05:54 Dose: 25 mcg Documented By: MARIAH Metoprolol Tartrate (Metoprolol Tartrate 25 Mg Tablet) [address] [facility]; Protocol Last Admin: 06/06/22 08:07 Dose: 25 mg Documented By: MARIA LUZ Modafinil (Modafinil 100 Mg Tablet) [address] [facility] Last Admin: 06/06/22 08:07 Dose: 200 mg Documented By: MARIA LUZ Omeprazole (Omeprazole 20 Mg/10 Ml Susp.Recon) 40 mg G-TUBE DAILY@0630 [facility] Last Admin: 06/06/22 05:54 Dose: 40 mg Documented By: MARIAH Pharmacy Consult (Consult Rx Perform Med Rec) 1 each MISCELLANE ONCE PRN PRN Reason: Consult order Sodium Chloride (0.9 % Sodium Chloride Flush 3 Ml Syringe) [address] [facility] Last Admin: 06/06/22 08:08 Dose: 3 ml Documented By: MARIA LUZ Labs CBC & Chem 7: 06/04/22 08:01 06/06/22 04:41 Labs: Laboratory Results - last 24 hr 06/05/22 06/05/22 06/05/22 11:29 15:28 19:21 Anion Gap Estim Creat Clear Calc Estimated GFR POC Glucose 347 H 378 H* 381 H* Random Glucose Calcium 06/06/22 06/06/22 04:41 07:10 Anion Gap 10 L Estim Creat Clear Calc 36.6 Estimated GFR 28 POC Glucose 408 H* Random Glucose 431 H* Calcium 6.9 L D Assessment and Plan (1) Parkinson disease: Status: Acute (2) Toxic metabolic encephalopathy: Status: Acute (3) Type 2 diabetes mellitus with diabetic polyneuropathy: Status: Acute Plan 61/m with CKD3, HTN, schizophrenia, diastolic CHF frequent hospitalization was admitted on 05/17 for anasarca, exacerbation of CHF, encephalopathy and was being diuressed, he became increasingly more confused, agitated and agressive with some adjustment t Psych meds..on 05/19 he vomitted and aspirated resulting in PEA arrest and was intubated and admitted to ICU with prolonged course and was finally extubated and transfer back to [facility] on with high concern of oral feeding in him again and therefore a PEG is planned Neuro/Psych #. Underlying Parkinson?s dz, on Sinemet. #. Underlying dementia--type unknown #. Underlying cirrhosis with hepatic encephalopathy.? Continuing the rifaximin and Lactulose?, ammonia levels have been stable #. Underlying schizophrenia.presently no meds #. Admitted with AMS.? His baseline mental status was severely deteriorated since his hospitalization in February.? Very suggestive that either his dementia and/or his Parkinson's and/or schizophrenia are getting worse.? His mental status now is even worse.? At this point, the only thing we need to continue is his Sinemet.? Discussed with Melonie Pacheco from Psychiatry with following recommendation on 05/28 Recommend to hold prolixin MARTINEZ 25 mg P1xtmgo and monitor for worsening psychosis. Pt no longer on Geodon. If pt becomes agitated, would recommend seroq uel low dose i.e. 25-50 mg Q6H PRN due to pt having parkinsonian dementia. Would avoid high potency neuroleptics, anticholinergic agents, or benzodiazepines. Pt was started on provigil in the ICU to help with lethargy. Will monitor for activating side effects. 06/03 a bit more alert today, will continue to monitor.. I don't believe provigil is doing him any good and will stop it.. Today he is more alert yet agitated and may need medication to contol his behaviors Cardiac. arrest was brief with PEA and unclear if contributing to anoxic injury HTN--continue metoporolol, Norvasc and IV hydralzine PRN Heart failure (acute on chronic diastolic heart failure )with Hypoxemic resp failure.? Much improved after vigorous diuresis. Much less edematous and d/t hi Na Lasix on hold now Resp #. Presumed aspiration pneumonia.? Was treated w a 5-day course of Unasyt.? The sputum gram stain and cx are unremarkable. had fever and increased WBC on 05/31 and restarted on Zosyn D7 for reaspiration , WBC down again but continues to have low grade fevers Presently breathing comoftably Renal #. CKD 3 with ERNST.? Creatintine is presently within his baseline 2.5 to 3 #Hypokalemia--replace via IV and oral route and repeat labs later #. Metabolic alkalosis.? Secondary to vigorous diuresis.? Was ib Diamonx stopped, bicab is now 29 #Hyernatremia--d/t free water deficit,..Na up to 150 today, incrase water in tube feed and gentle D5 #Hypomag--corrected Endo #. DM.? Sugars on high side due to tube feed and IVF with glucose. DC D5, increase Lantus and adust sliding scale Heme #. Leukopenia.? Chronic. now leukocytosis #. Thrombocytopenia.? Chronic.? May be related to his liver disease. #. Anemia -- acute on chronic.? F/u hemoccult was negative again.? Undoubtedly has anemia of chronic disease ( ACD). -he was transfused on 05/24 when hct was 21, baseline about 26 #. Mild coagulopathy.? 2? liver disease.? Corrected after 50 mg Vit K. Skin #. Decubitus ulcers, as above.? Usual care. Frequent turning #. Nutrition.?Presently on tube feed via NGT, and if doesn't become more alert and eat on his own, he might need a PEG. -Correct electrolytes PRN #. Code status. Full code, but attempt is been made to obtain DNR/DNI through court system, guardian not able to do it at this time Full Code DVT Prophylaxis: Heparin Inpatient: Post ICU care, needs PEG for feeding and continuing pysch meds adjustment, remains altered not at baseline, electrolytes imbalances, altered mental.. just seee above Quality Stroke Does the patient have a stroke diagnosis?: No VTE Prior VTE?: No VTE Risk Level:: Medical - moderate - high VTE Device Contraindication: Treatment Not Indicated VTE Drug Contraindication: N/A - Med Ordered
[2022-06-06 10:56] LABS: Glucose, Whole Blood 341 mg/dL (60-115)
[2022-06-06] MEDS: Lactulose 20 GM/30 ML SOLUTION OG-TUBE ×3 (11:21→21:51)
--- NOTE | 2022-06-06 11:35 | MHC.CLN ---
F/U PT WITH NG TUBE IN PLACE PT RECEIVING PROMOTE AT MAX GOAL RATE OF 75ML/HR WITH 300ML Q 4 HOURS PROVIDES 1800KCALS (24KCALS/KG BASED ON IBW), 112.5G PROTEIN (1.5G/KG BASED ON IBW) FOR WOUND HEALING, 3310ML TOTAL WATER FROM FORMULA AND FLUSHES (44ML/KG BASED ON IBW) RECOMMEND DECREASING FREE WATER FLUSHES TO 240ML Q 8 HRS TO PROVIDE 2230ML TOTAL FLUID FROM FORMULA AND FLUSHES (30ML/KG BASED ON IBW) CONTINUE TO MONITOR TOLERANCE, RESIDUALS AND LYTES AWAITING PEG
--- NOTE | 2022-06-06 13:16 | MHC.SL.SWA ---
Speech Pathologist Impression: Severe oropharyngeal dysphagia Risk of Aspiration Due to: Medically Fragile Neurological Condition History of Pneumonia Reduced Cognition Weak Cough Weak Voice Dysphasia Diet Status: NPO Liquid Consistency and Strategies for Safe Swallow: Liquid Intake Recommendation: NPO Solid Food Consistency: Dietary Recommendations: NPO Additional Modifications to Solid Foods: Overt s/s of aspiration w/ PO trials. Recommend NPO at this time. Pt w/ NG tube, w/ possible consideration of PEG. Notified MD, RN, RD via [employer]bird Message. Oral Medication Intake: NPO Please contact the pharmacy regarding appropriate crushable or liquid drug formulations that are available whenever modified delivery is recommended. Supervision While Eating and Drinking for Safe Swallow: PO with [employer] Swallowing Recommended Treatments: Base of Tongue Exercises Gustatory Stimulation Compens. Strategy Educat. Recommendation for Speech: Inpatient Speech Therapy Dumper Operator Clinican/Clinical Fellow: No Supervisory Statement: I have reviewed and agree with the student/clinical fellow's documentation: N/A Speech Language Pathologist: Jonelle Peterson M.A., CCC-[employer]
--- NOTE | 2022-06-06 14:11 | MHC.CM.PN ---
Patient has not yet been medically cleared for dc (Agitated/Restrained); returning to LTC @ [facility] [place] is the goal and CM will continue to follow.
[2022-06-06 16:10] LABS: Glucose, Whole Blood 221 mg/dL (60-115)
--- NOTE | 2022-06-06 18:16 | PM.PNNEP ---
Subjective Subjective Date of Service: 06/06/22 Interval history: Seen and examined, events noted Physical Exam Vital Signs: Vital Signs: Last Vital Signs Temp 99.1 F 06/06/22 15:09 Pulse 71 06/06/22 15:09 Resp 18 06/06/22 15:09 BP 147/66 H 06/06/22 15:09 Pulse Ox 97 06/06/22 15:09 O2 Del Method 06/06/22 15:09 O2 Flow Rate 2 06/06/22 15:09 FiO2 25 05/26/22 09:00 BMI result Body Mass Index 29.2 Const: Other: General: lethargic but no distress,?He is not talking at all, no gurgling Resp:? rohan rhonchi, no accessory muscle use CVS: S1,S2,RRR--Swelling in all arms GI: +BS, NT, no distention Skin: No rash,?He has a 1/2 x 3 cm stage 2 decubitus on his? coccyx, a 1 cm DTI on his medial right buttock, and a 3 x 3 DTI on his left buttock Neuro:? motor grossly intact,?He moves all 4 spontaneously. Psych: flat General: no acute distress and other ( poor arousal with sedation vacation, anasarca) Eyes: Sclerae: sclerae normal EOM: EOMs intact bilaterally Neck: Neck: Yes no lymphadenopathy, Yes trachea midline and Yes supple Resp: Effort & Inspection: normal respiratory effort and no respiratory distress Auscultation: clear to auscultation bilaterally and crackles ( diffuse bilateral) Cardio: Rate: regular rate Rhythm: regular rhythm Heart sounds: no gallops, no murmurs and no rubs GI: Palpation (GI): Soft to palpation and Other GI palpation findings present ( Nontender) Auscultation: normal bowel sounds Extrem: General: Yes no pedal edema, No clubbing, No cyanosis and Yes pedal edema ( 2+ bilateral) Objective Data Labs CBC & Chem 7: 06/04/22 08:01 06/06/22 04:41 Labs: Laboratory Results - last 24 hr 06/05/22 06/06/22 06/06/22 19:21 04:41 07:10 Sodium 143 Potassium 4.3 Chloride 111 H Carbon Dioxide 26 Anion Gap 10 L BUN 56 H Creatinine 2.35 H Estim Creat Clear Calc 36.6 Estimated GFR 28 POC Glucose 381 H* 408 H* Random Glucose 431 H* Calcium 6.9 L D 06/06/22 06/06/22 10:48 15:57 Sodium Potassium Chloride Carbon Dioxide Anion Gap BUN Creatinine Estim Creat Clear Calc Estimated GFR POC Glucose 341 H 221 H Random Glucose Calcium Microbiology Microbiology Results: Microbiology 05/23/22 14:47 Sputum - Suctioned Gram Stain - Final 05/23/22 14:47 Sputum - Suctioned Sputum Culture - Final Klebsiella pneumoniae Yeast 05/20/22 00:48 Blood - Venous Blood Culture - Final No growth after 5 days. 05/20/22 00:48 Blood - Venous Blood Culture - Final No growth after 5 days. 05/17/22 17:00 Blood - Venous Blood Culture - Final No growth after 5 days. 05/17/22 16:10 Blood - Venous Blood Culture - Final No growth after 5 days. Procedures Date of Service Date of Service: 06/06/22 Assessment & Plan Assessment and plan (1) Parkinson disease: Status: Acute (2) Toxic metabolic encephalopathy: Status: Acute (3) Type 2 diabetes mellitus with diabetic polyneuropathy: Status: Acute Plan 1. ERNST: resolvedw peak Scr 3.2 2. CKD 4: BSL Scr 2.5-3.0 3. Anemia: ques Fe and/or EPO def 4. Metbolic: K/Na/HCO3ok 5. MBD of CKD REC:check Fe studies and see about Fe/Epo; check PTH; avoid Ntoxins; protect non-dominant arm Time Spent With Patient Time: Total time spent is greater than 50% in coordination of care (as documented) at patient's floor/unit and/or counseling patient: Progress Note: Quality Stroke Does the patient have a stroke diagnosis?: No
[2022-06-06 19:56] LABS: Glucose, Whole Blood 206 mg/dL (60-115)
--- NOTE | 2022-06-07 | ECG_ITS ---
Test Reason : abnormal rhythm Blood Pressure : / mmHG Vent. Rate : 074 BPM Atrial Rate : 074 BPM P-R Int : 158 ms QRS Dur : 112 ms QT Int : 428 ms P-R-T Axes : 039 -53 059 degrees QTc Int : 475 ms Normal sinus rhythm Left anterior fascicular block Moderate voltage criteria for LVH, may be normal variant ( R in aVL , Todd product ) Abnormal ECG No significant changes when compared with the previous EKG of 26 may 2022 Referred By: Daniel Moon Electronically Signed By:JEMIMA IRENE
[2022-06-07] MEDS: Lactulose 20 GM/30 ML SOLUTION OG-TUBE ×4 (02:19→21:34)
[2022-06-07] MEDS: Piperacillin Sodium/Tazobactam 4.5 GM in 0.9 % Sodium Chloride 100 ML IV ×3 (02:23→16:52)
[2022-06-07 04:00] VITALS: BP 160/57; PULSE 77; RESP 18; TEMP 36.9; O2SAT 97
[2022-06-07 05:05] LABS: Anion Gap 12 (12-20); Blood Urea Nitrogen 53 mg/dL (9-16); Calcium 7.2 mg/dL (8.4-10.2); Carbon Dioxide 24 mmol/L (22-29); Chloride 114 mmol/L (96-108); Creatinine Clr Calc Pharmacy 36.1; Estimated Glomerular Filt Rate 28; Glucose Random 275 mg/dL (60-115); Potassium 4.4 mmol/L (3.3-5.1); Sodium 146 mmol/L (135-145)
[2022-06-07 06:00] VITALS: BMI 28.8
[2022-06-07] MEDS: Levothyroxine Sodium 25 MCG TABLET PO (06:13)
[2022-06-07] MEDS: Heparin Sodium,Porcine 5,000 UNIT/ML VIAL 5000 UNIT SUBCUT ×3 (06:14→21:35)
[2022-06-07 07:17] LABS: Glucose, Whole Blood 243 mg/dL (60-115)
[2022-06-07] MEDS: Insulin Lispro 100 UNIT/ML 3 ML VIAL SUBCUT ×3 (07:22→16:51)
[2022-06-07 07:43] VITALS: BP 161/71; PULSE 82; RESP 20; TEMP 36.8; O2SAT 100
[2022-06-07] MEDS: 0.9 % Sodium Chloride Flush 3 ML SYRINGE IVFLUSH ×3 (07:59→21:37)
[2022-06-07] MEDS: modafiniL 100 MG TABLET 200 MG PO (08:00)
[2022-06-07] MEDS: Metoprolol Tartrate 25 MG TABLET PO ×2 (08:00→21:34)
[2022-06-07] MEDS: amLODIPine Besylate 10 MG TABLET PO (08:00)
[2022-06-07] MEDS: Carbidopa/Levodopa 25/100 TABLET 1 TAB PO ×4 (08:00→21:34)
[2022-06-07] MEDS: Insulin Glargine,Hum.rec.anlog 100 UNIT/ML 10 ML VIAL 30 UNIT SUBCUT (08:01)
--- NOTE | 2022-06-07 10:02 | P.PNIM_ITS ---
Subjective Subjective Date of Service: 06/07/22 Interval History: Confused with slight agitation. Remains in soft restraints for safety Review of Systems Unable to obtain. Per chart afebrile times 24 hours Physical Exam Vital Signs: Vital Signs: Last Vital Signs Temp 98.3 F 06/07/22 07:43 Pulse 82 06/07/22 07:43 Resp 20 06/07/22 07:43 BP 161/71 H 06/07/22 07:43 Pulse Ox 100 06/07/22 07:43 O2 Del Method 06/07/22 07:43 O2 Flow Rate 2 06/07/22 04:00 FiO2 25 05/26/22 09:00 BMI result Body Mass Index 28.8 Const: Other: Awake confused HEENT: Other: NGT right naris Resp: Other: Diminished at bases with scant end-expiratory crackles Cardio: Other: No S4; positive S1-S2; no S3 murmurs rubs or gallops GI: Other: Soft nontender nondistended. Normoactive bowel sounds Extrem: Other: Trace pedal edema bilaterally Objective Data Active Medications Acetaminophen (Acetaminophen Supp 650 Mg Supp.Rect) 650 mg [place] Q6H PRN PRN Reason: Fever >100.4 Last Admin: 06/06/22 03:54 Dose: 650 mg Documented By: MARIAH Amlodipine Besylate (Amlodipine Besylate 10 Mg Tablet) 10 mg PO DAILY [facility]; Protocol Last Admin: 06/07/22 08:00 Dose: 10 mg Documented By: LUIS Carbidopa/Levodopa (Carbidopa/Levodopa 25/100 Tablet) 1 tab PO QID COUNT [facility]CLUDES [facility] Last Admin: 06/07/22 08:00 Dose: 1 tab Documented By: LUIS Heparin Sodium (Porcine) (Heparin Sodium,Porcine 5,000 Unit/Ml Vial) 5,000 unit SUBCUT Q8H [facility]CLUD[facility] Last Admin: 06/07/22 06:14 Dose: 5,000 unit Documented By: GEOVANNA Hydralazine HCl (Hydralazine Hcl 20 Mg/Ml Vial) 10 mg IVPUSH Q6H PRN; Protocol PRN Reason: SBP > 180 Last Admin: 06/05/22 07:59 Dose: 10 mg Documented By: BIB Piperacillin Sod/Tazobactam (Sod 4.5 gm/ Sodium Chloride) 100 mls @ 200 mls/hr IV Q8H [facility]CLUD[facility] Last Infusion: 06/07/22 08:55 Dose: 0 mls/hr Documented By: LUIS Insulin Glargine (Insulin Glargine,Hum.Rec.Anlog 100 Unit/Ml 10 Ml Vial) 30 unit SUBCUT DAILY [facility]CLUD[facility] Last Admin: 06/07/22 08:01 Dose: 30 unit Documented By: LUIS Insulin Human Lispro (Insulin Lispro 100 Unit/Ml 3 Ml Vial) 0 unit SUBCUT QIDACHS COUNT [facility]CLUDES [facility]; Protocol Last Admin: 06/07/22 07:22 Dose: 5 unit Documented By: LUIS Lactulose (Lactulose 20 Gm/30 Ml Solution) 20 gm OG-TUBE Q6H COUNT [facility]CLUDES [facility] Last Admin: 06/07/22 07:59 Dose: 20 gm Documented By: LUIS Levothyroxine Sodium (Levothyroxine Sodium 25 Mcg Tablet) 25 mcg PO DAILY@0600 [facility]CLUD[facility] Last Admin: 06/07/22 06:13 Dose: 25 mcg Documented By: GEOVANNA Metoprolol Tartrate (Metoprolol Tartrate 25 Mg Tablet) 25 mg PO BID COUNT [facility]CLUD[facility]; Protocol Last Admin: 06/07/22 08:00 Dose: 25 mg Documented By: LUIS Modafinil (Modafinil 100 Mg Tablet) 200 mg PO DAILY COUNT [facility]CLUDES [facility] Last Admin: 06/07/22 08:00 Dose: 200 mg Documented By: LUIS Omeprazole (Omeprazole 20 Mg/10 Ml Susp.Recon) 40 mg G-TUBE DAILY@0630 [facility] Last Admin: 06/07/22 06:12 Dose: 40 mg Documented By: GEOVANNA Pharmacy Consult (Consult Rx Perform Med Rec) 1 each MISCELLANE ONCE PRN PRN Reason: Consult order Sodium Chloride (0.9 % Sodium Chloride Flush 3 Ml Syringe) 3 ml IVFLUSH QSHIFT COUNT INCLUDES [facility] Last Admin: 06/07/22 07:59 Dose: 3 ml Documented By: LUIS Labs CBC & Chem 7: 06/04/22 08:01 06/07/22 04:28 Labs: Laboratory Results - last 24 hr 06/06/22 06/06/22 06/06/22 10:48 15:57 19:51 Anion Gap Estim Creat Clear Calc Estimated GFR POC Glucose 341 H 221 H 206 H Random Glucose Calcium 06/07/22 06/07/22 04:28 07:11 Anion Gap 12 Estim Creat Clear Calc 36.1 Estimated GFR 28 POC Glucose 243 H Random Glucose 275 H D Calcium 7.2 L Assessment and Plan (1) Toxic metabolic encephalopathy: Status: Acute (2) Type 2 diabetes mellitus with diabetic polyneuropathy: Status: Acute (3) CKD (chronic kidney disease) stage 3, GFR 30-59 ml/min: Status: Acute (4) Schizophrenia: Status: Acute (5) Parkinson disease: Status: Acute Plan 61/m with CKD3, HTN, schizophrenia, diastolic CHF frequent hospitalization was admitted on 05/17 for anasarca, exacerbation of CHF, encephalopathy and was being diuressed, he became increasingly more confused, agitated and agressive with some adjustment t Psych meds..on 05/19 he vomitted and aspirated resulting in PEA arrest and was intubated and admitted to ICU with prolonged course and was finally extubated and transfer back to [facility] on 05/28 with high concern of oral feeding; NG tube in place. Repeat swallow eval 06/06 continues to recommend NPO status 1. Toxic metabolic encephalopathy (likely multi factorial related to hyperammonemia/advanced Parkinson's/under lines schizophrenic tendencies) -continue lactulose through NG tube -Sinemet q.i.d. as ordered -treatment dictated by clinical course. Will avoid antipsychotics as possible. If agitated will try small dose of Seroquel 2. Severe oropharyngeal dysphagia -recent swallow eval 06/06/2022 recommends NPO status -patient has failed multiple swallow valves; low likelihood of regaining swallow in the immediate future -will ask Dr. Pereyra is to proceed with PEG tube placement 3. Diabetes type 2 -acceptable control on current therapies -continue sliding scale/Lantus as ordered -adjust as indicated 4. Query right lower lobe infiltrate (fever spike 05/31/2022 with hazy changes right base by chest x-ray) -continue Zosyn (04/19) -titrate O2 if indicated 5. CKD -creatinine and returned to baseline -appreciate renal input -continue current therapies -follow renals/divalents 5. Cirrhosis -continue lactulose as ordered -follow synthetic function Full Code DVT Prophylaxis: Heparin Requires ongoing hospitalization for treatment of pneumonia in the backdrop of mg p.o. status. Will also likely need PEG tube placement Quality Stroke Does the patient have a stroke diagnosis?: No VTE Prior VTE?: No VTE Risk Level:: Medical - moderate - high VTE Device Contraindication: Treatment Not Indicated VTE Drug Contraindication: N/A - Med Ordered
[2022-06-07 11:30] LABS: Glucose, Whole Blood 250 mg/dL (60-115)
[2022-06-07 12:00] VITALS: BP 174/75; PULSE 70; RESP 20; TEMP 36.7; O2SAT 96
--- NOTE | 2022-06-07 13:23 | MHC.SL.SWA ---
Speech Pathologist Impression: Risk of Aspiration Due to: Medically Fragile Neurological Condition History of Pneumonia Reduced Cognition Weak Cough Weak Voice Dysphasia Diet Status: Continue NPO due to evident aspiration/ on going aspiration risk. Liquid Consistency and Strategies for Safe Swallow: Liquid Intake Recommendation: NPO Liquid Intake Strategies: Solid Food Consistency: Dietary Recommendations: NPO Additional Modifications to Solid Foods: Overt s/s of aspiration w/ PO trials. Recommend NPO at this time. Pt w/ NG tube, w/ possible consideration of PEG. Oral Medication Intake: NPO Please contact the pharmacy regarding appropriate crushable or liquid drug formulations that are available whenever modified delivery is recommended. Compensatory Strategies and Precautions to be Taken for Safe Swallow: Supervision While Eating and Drinking for Safe Swallow: PO with DOCUMENT CONTROL CLERK Foods to Avoid: Swallowing Recommended Treatments: Base of Tongue Exercises Gustatory Stimulation Compens. Strategy Educat. Recommendation for Speech: Inpatient Speech Therapy Comment: Pt seen this a.m. for re-assessment, gustatory stimulation. Pt was awake, leaning to one side in bed. W/nursing assistance, pt. repositioned to be seated upright with head of bed elevated. Pt was non-verbal, nodded head to some questions, but unreliably. Pt was initially given oral care w/ swab and application of balm to lips, which were dry appearing. When presented with swab/trace amount of mouth wash, pt sucked and pressed on swab to extract the liquid, produced a tongue pumping action and initiated a swallow after delay. After second presentation of swab, pt noted to have wet vocal quality after swallow. After oral care, Pt given trace amount of ice water, also by swab, with similar response of sucking and manipulating swab with tongue, tongue pumping behavior and swallow intiated after delay. Vocal quality again wet after trace amounts of water taken, and Pt then coughed. No additional trials of food consistencies were attempted given response to trace amounts of liquid. Recommend continue NPO, w/ PO w/ DOCUMENT CONTROL CLERK only. Frequency/Duration: Date Range for Service Req: Timeline to reassess: Sales Floor Team Member Clinican/Clinical Fellow: No Supervisory Statement: I have reviewed and agree with the student/clinical fellow's documentation: N/A Speech Language Pathologist: Angella Ernandez M.A., CCC-DOCUMENT CONTROL CLERK
[2022-06-07 15:07] VITALS: BP 145/67; PULSE 71; RESP 18; TEMP 37.4; O2SAT 96
[2022-06-07 16:00] LABS: Glucose, Whole Blood 172 mg/dL (60-115)
--- NOTE | 2022-06-07 17:51 | P.PNNP_ITS ---
Subjective Subjective Date of Service: 06/07/22 Interval history: Seen and examined Confused with slight agitation. Remains in soft restraints for safety Physical Exam Vital Signs: Vital Signs: Last Vital Signs Temp 99.4 F 06/07/22 15:07 Pulse 71 06/07/22 15:07 Resp 18 06/07/22 15:07 BP 145/67 H 06/07/22 15:07 Pulse Ox 96 06/07/22 15:07 O2 Del Method 06/07/22 15:07 O2 Flow Rate 2 06/07/22 12:00 FiO2 25 05/26/22 09:00 BMI result Body Mass Index 28.8 Const: Other: General: lethargic but no distress,?He is not talking at all, no gurgling Resp:? rohan rhonchi, no accessory muscle use CVS: S1,S2,RRR--Swelling in all arms GI: +BS, NT, no distention Skin: No rash,?He has a 1/2 x 3 cm stage 2 decubitus on his? coccyx, a 1 cm DTI on his medial right buttock, and a 3 x 3 DTI on his left buttock Neuro:? motor grossly intact,?He moves all 4 spontaneously. Psych: flat General: no acute distress and other ( poor arousal with sedation vacation, anasarca) Eyes: Sclerae: sclerae normal EOM: EOMs intact bilaterally Neck: Neck: Yes no lymphadenopathy, Yes trachea midline and Yes supple Resp: Effort & Inspection: normal respiratory effort and no respiratory distress Auscultation: clear to auscultation bilaterally and crackles ( diffuse bilateral) Cardio: Rate: regular rate Rhythm: regular rhythm Heart sounds: no gallops, no murmurs and no rubs GI: Palpation (GI): Soft to palpation and Other GI palpation findings present ( Nontender) Auscultation: normal bowel sounds Extrem: General: Yes no pedal edema, No clubbing, No cyanosis and Yes pedal edema ( 2+ bilateral) Objective Data Labs CBC & Chem 7: 06/04/22 08:01 06/07/22 04:28 Labs: Laboratory Results - last 24 hr 06/06/22 06/07/22 06/07/22 19:51 04:28 07:11 Sodium 146 H Potassium 4.4 Chloride 114 H Carbon Dioxide 24 Anion Gap 12 BUN 53 H Creatinine 2.39 H Estim Creat Clear Calc 36.1 Estimated GFR 28 POC Glucose 206 H 243 H Random Glucose 275 H D Calcium 7.2 L 06/07/22 06/07/22 11:12 15:56 Sodium Potassium Chloride Carbon Dioxide Anion Gap BUN Creatinine Estim Creat Clear Calc Estimated GFR POC Glucose 250 H 172 H Random Glucose Calcium Microbiology Microbiology Results: Microbiology 05/23/22 14:47 Sputum - Suctioned Gram Stain - Final 05/23/22 14:47 Sputum - Suctioned Sputum Culture - Final Klebsiella pneumoniae Yeast 05/20/22 00:48 Blood - Venous Blood Culture - Final No growth after 5 days. 05/20/22 00:48 Blood - Venous Blood Culture - Final No growth after 5 days. 05/17/22 17:00 Blood - Venous Blood Culture - Final No growth after 5 days. 05/17/22 16:10 Blood - Venous Blood Culture - Final No growth after 5 days. Procedures Date of Service Date of Service: 06/07/22 Assessment & Plan Assessment and plan (1) Parkinson disease: Status: Acute (2) Toxic metabolic encephalopathy: Status: Acute (3) Type 2 diabetes mellitus with diabetic polyneuropathy: Status: Acute Plan 1. ERNST: resolvedw peak Scr 3.2 2. CKD 4: BSL Scr 2.5-3.0 3. Anemia: ques Fe and/or EPO def 4. Metbolic: K/Na/HCO3ok 5. MBD of CKD REC:will check Fe studies and see about Fe/Epo; check PTH; avoid Ntoxins; prot ect non-dominant arm Time Spent With Patient Time: Total time spent is greater than 50% in coordination of care (as documented) at patient's floor/unit and/or counseling patient: Progress Note: Quality Stroke Does the patient have a stroke diagnosis?: No
[2022-06-07 18:12] LABS: Iron 56 mcg/dL (45-160); Percent Iron Saturation 34 % (15-50); Total Iron Binding Capacity 165 mcg/dL (228-428); Unsaturated Iron Binding 109 ug/dL
[2022-06-07 18:32] LABS: Ferritin 453 ng/mL (20-250)
[2022-06-07 19:06] VITALS: BP 140/80; PULSE 92; RESP 18; TEMP 36.7; O2SAT 98
[2022-06-07 20:07] LABS: Glucose, Whole Blood 144 mg/dL (60-115)
[2022-06-08] VITALS (9 sets, daily range): BP systolic 132–200; BP diastolic 71–87; PULSE 67–79; RESP 16–20; TEMP 37.3–38.4; O2SAT 97–100; BMI 28.4
[2022-06-08] MEDS: Piperacillin Sodium/Tazobactam 4.5 GM in 0.9 % Sodium Chloride 100 ML IV ×3 (00:39→16:13)
[2022-06-08] MEDS: Lactulose 20 GM/30 ML SOLUTION OG-TUBE ×3 (02:06→21:54)
[2022-06-08] MEDS: Acetaminophen Supp 650 MG SUPP.RECT PR ×2 (04:56→11:49)
[2022-06-08] MEDS: Heparin Sodium,Porcine 5,000 UNIT/ML VIAL 5000 UNIT SUBCUT ×3 (05:10→21:55)
[2022-06-08] MEDS: Levothyroxine Sodium 25 MCG TABLET PO (05:11)
[2022-06-08 06:10] LABS: MANUAL DIFF FLAG NO
[2022-06-08 06:16] LABS: Basophils Percent Auto 0.4 % (0-2); Eosinophils Absolute Auto 0.3 X10*3/uL (0.0-0.4); Eosinophils Percent Auto 6.2 % (0-4); Hemoglobin 8.8 g/dl (14.0-18.0); Imm Gran Abs Auto 0.02 X10*3/uL (0.00-0.03); Imm Gran Pct Auto 0.4 % (0.0-0.4); Lymphocytes Absolute Auto 0.8 X10*3/uL (1.2-4.9); Lymphocytes Percent Auto 15.5 % (20-40); Mean Corpuscular HGB Conc 32.6 g/dl (31.0-36.0); Mean Corpuscular Hemoglobin 31.1 pg (27.0-33.0); Mean Corpuscular Volume 95.4 fL (80.0-98.0); Mean Platelet Volume 11.7 fL (9.4-12.4); Monocytes Absolute Auto 0.4 X10*3/uL (0.1-1.2); Monocytes Percent Auto 8.2 % (2-11); Neutrophils Absolute Auto 3.6 x10*3/uL (2.0-8.3); Neutrophils Percent Auto 69.3 % (45-73); Platelet Count 117 X10*3/uL (160-400); Red Blood Count 2.83 X10*6/uL (4.60-5.80); Red Cell Distribution Width 17.7 % (11.0-16.0); White Blood Count 5.2 X10*3/uL (4.8-10.8)
[2022-06-08 06:19] LABS: INTERNATIONAL NORM RATIO 1.1 (0.9-1.1); Prothrombin Time 13.1 SEC (10.0-13.1)
[2022-06-08 06:50] LABS: Alanine Aminotransferase 14 U/L (0-40); Albumin Level 2.8 g/dL (3.5-5.0); Alkaline Phosphatase 85 U/L (39-117); Aspartate Amino Transferase 49 U/L (5-37); Bilirubin Total 1.4 mg/dL (0.0-1.0); Blood Urea Nitrogen 53 mg/dL (9-16); Calcium 7.5 mg/dL (8.4-10.2); Estimated Glomerular Filt Rate 27; Glucose Random 310 mg/dL (60-115); Total Protein 6.3 g/dL (6.5-8.0)
[2022-06-08 07:15] LABS: Anion Gap 11 (12-20); Carbon Dioxide 24 mmol/L (22-29); Chloride 121 mmol/L (96-108); Potassium 4.6 mmol/L (3.3-5.1); Sodium 151 mmol/L (135-145)
[2022-06-08 07:38] LABS: Glucose, Whole Blood 246 mg/dL (60-115)
[2022-06-08] MEDS: Insulin Lispro 100 UNIT/ML 3 ML VIAL SUBCUT ×4 (07:48→21:55)
[2022-06-08] MEDS: Carbidopa/Levodopa 25/100 TABLET 1 TAB PO ×4 (07:48→21:55)
[2022-06-08] MEDS: Insulin Glargine,Hum.rec.anlog 100 UNIT/ML 10 ML VIAL 30 UNIT SUBCUT (07:49)
[2022-06-08] MEDS: 0.9 % Sodium Chloride Flush 3 ML SYRINGE IVFLUSH ×3 (07:49→21:55)
[2022-06-08] MEDS: Metoprolol Tartrate 25 MG TABLET PO ×2 (07:49→21:56)
[2022-06-08] MEDS: amLODIPine Besylate 10 MG TABLET PO (07:49)
[2022-06-08] MEDS: modafiniL 100 MG TABLET 200 MG PO (07:49)
--- NOTE | 2022-06-08 10:09 | MHC.SLORD ---
Speech Language Pathology Order Status: Discussed with nursing. Per nursing, pt not appropriate for bedside swallow evaluation, high aspiration risk. Pt was evaluated by SAFETY INVESTIGATOR 05/27, 06/06, 06/07, displayed clinical signs of aspiration, recommended NPO. Pt is being considered for possible PEG. Will continue to follow.
[2022-06-08 11:11] LABS: Glucose, Whole Blood 214 mg/dL (60-115)
--- NOTE | 2022-06-08 11:21 | P.PNGS_ITS ---
Subjective Subjective Date of Service: 06/09/22 Interval history: He has been pulling out his NG tube He has failed swallow study again Have been asked by the hospitalist service to put in a PEG tube Physical Exam Vital Signs: Vital Signs: Last Vital Signs Temp 99.7 F 06/08/22 07:30 Pulse 79 06/08/22 07:30 Resp 20 06/08/22 07:30 BP 200/77 H 06/08/22 07:30 Pulse Ox 98 06/08/22 07:30 O2 Del Method 06/08/22 07:30 O2 Flow Rate 2 06/08/22 07:30 FiO2 25 05/26/22 09:00 BMI result Body Mass Index 28.4 Const: Other: Not communicative General: comfortable and no acute distress Resp: Effort & Inspection: normal respiratory effort Cardio: Rate: regular rate GI: Other: Soft, nondistended, no guarding or rebound, no surgical scars on the abdomen Objective Data Active Medications Acetaminophen (Acetaminophen Supp 650 Mg Supp.Rect) 650 mg IN Q6H PRN PRN Reason: Fever >100.4 Last Admin: 06/08/22 04:56 Dose: 650 mg Documented By: GALINA Amlodipine Besylate (Amlodipine Besylate 10 Mg Tablet) 10 mg PO DAILY [facility]RE[facility]; Protocol Last Admin: 06/08/22 07:49 Dose: 10 mg Documented By: LUIS Carbidopa/Levodopa (Carbidopa/Levodopa 25/100 Tablet) 1 tab PO QID [facility] Last Admin: 06/08/22 07:48 Dose: 1 tab Documented By: LUIS Heparin Sodium (Porcine) (Heparin Sodium,Porcine 5,000 Unit/Ml Vial) 5,000 unit SUBCUT Q8H [facility] Last Admin: 06/08/22 05:10 Dose: 5,000 unit Documented By: GALINA Hydralazine HCl (Hydralazine Hcl 20 Mg/Ml Vial) 10 mg IVPUSH Q6H PRN; Protocol PRN Reason: SBP > 180 Last Admin: 06/05/22 07:59 Dose: 10 mg Documented By: BIB Piperacillin Sod/Tazobactam (Sod 4.5 gm/ Sodium Chloride) 100 mls @ 200 mls/hr IV Q8H [facility] Last Infusion: 06/08/22 09:23 Dose: 0 mls/hr Documented By: LUIS Insulin Glargine (Insulin Glargine,Hum.Rec.Anlog 100 Unit/Ml 10 Ml Vial) 30 unit SUBCUT DAILY [facility] Last Admin: 06/08/22 07:49 Dose: 30 unit Documented By: LUIS Insulin Human Lispro (Insulin Lispro 100 Unit/Ml 3 Ml Vial) 0 unit SUBCUT QIDACHS [facility]; Protocol Last Admin: 06/08/22 07:48 Dose: 5 unit Documented By: LUIS Lactulose (Lactulose 20 Gm/30 Ml Solution) 20 gm OG-TUBE Q6H [facility] Last Admin: 06/08/22 07:51 Dose: 20 gm Documented By: LUIS Levothyroxine Sodium (Levothyroxine Sodium 25 Mcg Tablet) 25 mcg PO DAILY@0600 [facility] Last Admin: 06/08/22 05:11 Dose: 25 mcg Documented By: GALINA Metoprolol Tartrate (Metoprolol Tartrate 25 Mg Tablet) 25 mg PO BID [facility]; Protocol Last Admin: 06/08/22 07:49 Dose: 25 mg Documented By: LUIS Modafinil (Modafinil 100 Mg Tablet) 200 mg PO DAILY [facility] Last Admin: 06/08/22 07:49 Dose: 200 mg Documented By: LUIS Omeprazole (Omeprazole 20 Mg/10 Ml Susp.Recon) 40 mg G-TUBE DAILY@0630 [facility] Last Admin: 06/08/22 05:11 Dose: 40 mg Documented By: GALINA Pharmacy Consult (Consult Rx Perform Med Rec) 1 each MISCELLANE ONCE PRN PRN Reason: Consult order Sodium Chloride (0.9 % Sodium Chloride Flush 3 Ml Syringe) 3 ml IVFLUSH QSHIFT [facility] Last Admin: 06/08/22 07:49 Dose: 3 ml Documented By: LUIS Labs CBC & Chem 7: 06/09/22 07:58 06/09/22 07:58 Labs: Laboratory Results - last 24 hr 06/07/22 06/07/22 06/07/22 04:28 11:12 15:56 MCV MCH MCHC RDW Plt Count MPV Immature Gran % (Auto) Neut % (Auto) Lymph % (Auto) [place] % (Auto) Eos % (Auto) Baso % (Auto) Lymph # (Auto) [place] # (Auto) Eos # (Auto) Baso # (Auto) Abs Immat Gran (auto) Absolute Neuts (auto) Absolute Nucleated RBC Nucleated RBC % (auto) PT INR Anion Gap Estim Creat Clear Calc Estimated GFR POC Glucose 250 H 172 H Random Glucose Calcium Iron 56 TIBC 165 L % Saturation 34 Unsat Iron Binding 109 Ferritin 453 H Total Bilirubin AST ALT Alkaline Phosphatase Total Protein Albumin 06/07/22 06/08/22 06/08/22 20:01 05:49 05:49 MCV 95.4 MCH 31.1 MCHC 32.6 RDW 17.7 H Plt Count 117 L MPV 11.7 Immature Gran % (Auto) 0.4 Neut % (Auto) 69.3 Lymph % (Auto) 15.5 L [place] % (Auto) 8.2 Eos % (Auto) 6.2 H Baso % (Auto) 0.4 Lymph # (Auto) 0.8 L [place] # (Auto) 0.4 Eos # (Auto) 0.3 Baso # (Auto) 0.0 Abs Immat Gran (auto) 0.02 Absolute Neuts (auto) 3.6 Absolute Nucleated RBC 0.000 Nucleated RBC % (auto) 0.0 PT 13.1 INR 1.1 Anion Gap Estim Creat Clear Calc Estimated GFR POC Glucose 144 H Random Glucose Calcium Iron TIBC % Saturation Unsat Iron Binding Ferritin Total Bilirubin AST ALT Alkaline Phosphatase Total Protein Albumin 06/08/22 06/08/22 06/08/22 05:49 07:33 11:07 MCV MCH MCHC RDW Plt Count MPV Immature Gran % (Auto) Neut % (Auto) Lymph % (Auto) [place] % (Auto) Eos % (Auto) Baso % (Auto) Lymph # (Auto) [place] # (Auto) Eos # (Auto) Baso # (Auto) Abs Immat Gran (auto) Absolute Neuts (auto) Absolute Nucleated RBC Nucleated RBC % (auto) PT INR Anion Gap 11 L Estim Creat Clear Calc 35.0 Estimated GFR 27 POC Glucose 246 H 214 H Random Glucose 310 H Calcium 7.5 L Iron TIBC % Saturation Unsat Iron Binding Ferritin Total Bilirubin 1.4 H AST 49 H D ALT 14 Alkaline Phosphatase 85 D Total Protein 6.3 L Albumin 2.8 L Procedures Date of Service Date of Service: 06/08/22 Progress Note: A&P Assessment and plan (1) Parkinson disease: Status: Acute Assessment and Plan: In view of his Parkinson's disease, he has had poor intake with dysphagia He has chronic liver disease with ascites and cirrhosis. I have been asked again by the hospitalist service to put in a PEG tube as was deemed that he may and likely recover swallow functions The patient does present with significant risks because of his cirrhosis with note of some portal hypertension I have explained this to the healthcare proxy Melania Edmond [phone] Melania understands the risks of this procedure. She has agreed to proceed We have temporarily put him on the schedule for tomorrow for PEG tube placement I have reviewed his CT scan with the radiologist Time Spent With Patient Time: Total time spent is greater than 50% in coordination of care (as documented) at patient's floor/unit and/or counseling patient: Quality Stroke Does the patient have a stroke diagnosis?: No VTE Prior VTE?: No VTE Risk Level:: Medical - moderate - high VTE Device Contraindication: Treatment Not Indicated VTE Drug Contraindication: N/A - Med Ordered
--- NOTE | 2022-06-08 11:26 | MHC.CLN ---
F/U PT WITH NG TUBE IN PLACE PT RECEIVING PROMOTE AT MAX GOAL RATE OF 75ML/HR WITH 240ML Q 8 HOURS PROVIDES 1800KCALS (24KCALS/KG BASED ON IBW), 112.5G PROTEIN (1.5G/KG BASED ON IBW) FOR WOUND HEALING, 2230ML TOTAL WATER FROM FORMULA AND FLUSHES (30ML/KG BASED ON IBW) RECOMMEND INCREASING FREE WATER FLUSHES TO 300ML Q 4HRS TO PROVIDE 3310ML TOTAL FLUID FROM FORMULA AND FLUSHES (44ML/KG BASED ON IBW) R/T SERUM NA LEVEL CONTINUE TO MONITOR TOLERANCE, RESIDUALS AND LYTES AWAITING PEG
--- NOTE | 2022-06-08 12:54 | MHC.CM.PN ---
Per ROUNDS/MD, Patient needs a PEG and is not yet medically cleared to return to [facility] today; CM will follow.
--- NOTE | 2022-06-08 14:34 | HO.PM.IMPN ---
Subjective Subjective Date of Service: 06/08/22 Interval History: Fever spikes to 101 overnight. Continues to be restless and agitated at times Review of Systems Unable to obtain. Physical Exam Vital Signs: Vital Signs: Last Vital Signs Temp 100.1 F 06/08/22 11:43 Pulse 78 06/08/22 11:43 Resp 20 06/08/22 11:43 BP 142/87 H 06/08/22 11:43 Pulse Ox 97 06/08/22 11:43 O2 Del Method 06/08/22 11:43 O2 Flow Rate 2 06/08/22 11:43 FiO2 25 05/26/22 09:00 BMI result Body Mass Index 28.4 Const: Other: Awake confused HEENT: Other: NGT right naris Resp: Other: Diminished at bases with scant end-expiratory crackles Cardio: Other: No S4; positive S1-S2; no S3 murmurs rubs or gallops GI: Other: Soft nontender nondistended. Normoactive bowel sounds Extrem: Other: Trace pedal edema bilaterally Objective Data Active Medications Acetaminophen (Acetaminophen Supp 650 Mg Supp.Rect) 650 mg OR Q6H PRN PRN Reason: Fever >100.4 Last Admin: 06/08/22 11:49 Dose: 650 mg Documented By: LUIS Amlodipine Besylate (Amlodipine Besylate 10 Mg Tablet) 10 mg PO DAILY [facility]; Protocol Last Admin: 06/08/22 07:49 Dose: 10 mg Documented By: LUIS Carbidopa/Levodopa (Carbidopa/Levodopa 25/100 Tablet) 1 tab PO QID [facility] Last Admin: 06/08/22 11:50 Dose: 1 tab Documented By: LUIS Heparin Sodium (Porcine) (Heparin Sodium,Porcine 5,000 Unit/Ml Vial) 5,000 unit SUBCUT Q8H [facility] Last Admin: 06/08/22 05:10 Dose: 5,000 unit Documented By: GALINA Hydralazine HCl (Hydralazine Hcl 20 Mg/Ml Vial) 10 mg IVPUSH Q6H PRN; Protocol PRN Reason: SBP > 180 Last Admin: 06/05/22 07:59 Dose: 10 mg Documented By: BIB Piperacillin Sod/Tazobactam (Sod 4.5 gm/ Sodium Chloride) 100 mls @ 200 mls/hr IV Q8H [facility] Last Infusion: 06/08/22 09:23 Dose: 0 mls/hr Documented By: LUIS Insulin Glargine (Insulin Glargine,Hum.Rec.Anlog 100 Unit/Ml 10 Ml Vial) 30 unit SUBCUT DAILY [facility] Last Admin: 06/08/22 07:49 Dose: 30 unit Documented By: LUIS Insulin Human Lispro (Insulin Lispro 100 Unit/Ml 3 Ml Vial) 0 unit SUBCUT QIDACHS [facility]; Protocol Last Admin: 06/08/22 11:50 Dose: 5 unit Documented By: LUIS Lactulose (Lactulose 20 Gm/30 Ml Solution) 20 gm OG-TUBE Q6H [facility] Last Admin: 06/08/22 07:51 Dose: 20 gm Documented By: LUIS Levothyroxine Sodium (Levothyroxine Sodium 25 Mcg Tablet) 25 mcg PO DAILY@0600 [facility] Last Admin: 06/08/22 05:11 Dose: 25 mcg Documented By: GALINA Metoprolol Tartrate (Metoprolol Tartrate 25 Mg Tablet) 25 mg PO BID [facility]; Protocol Last Admin: 06/08/22 07:49 Dose: 25 mg Documented By: LUIS Modafinil (Modafinil 100 Mg Tablet) 200 mg PO DAILY [facility] Last Admin: 06/08/22 07:49 Dose: 200 mg Documented By: LUIS Omeprazole (Omeprazole 20 Mg/10 Ml Susp.Recon) 40 mg G-TUBE DAILY@0630 [facility] Last Admin: 06/08/22 05:11 Dose: 40 mg Documented By: GALINA Pharmacy Consult (Consult Rx Perform Med Rec) 1 each MISCELLANE ONCE PRN PRN Reason: Consult order Sodium Chloride (0.9 % Sodium Chloride Flush 3 Ml Syringe) 3 ml IVFLUSH QSHIFT [facility] Last Admin: 06/08/22 07:49 Dose: 3 ml Documented By: LUIS Labs CBC & Chem 7: 06/08/22 05:49 06/08/22 05:49 Labs: Laboratory Results - last 24 hr 06/07/22 06/07/22 06/07/22 04:28 15:56 20:01 MCV MCH MCHC RDW Plt Count MPV Immature Gran % (Auto) Neut % (Auto) Lymph % (Auto) [place] % (Auto) Eos % (Auto) Baso % (Auto) Lymph # (Auto) [place] # (Auto) Eos # (Auto) Baso # (Auto) Abs Immat Gran (auto) Absolute Neuts (auto) Absolute Nucleated RBC Nucleated RBC % (auto) PT INR Anion Gap Estim Creat Clear Calc Estimated GFR POC Glucose 172 H 144 H Random Glucose Calcium Iron 56 TIBC 165 L % Saturation 34 Unsat Iron Binding 109 Ferritin 453 H Total Bilirubin AST ALT Alkaline Phosphatase Total Protein Albumin 06/08/22 06/08/22 06/08/22 05:49 05:49 05:49 MCV 95.4 MCH 31.1 MCHC 32.6 RDW 17.7 H Plt Count 117 L MPV 11.7 Immature Gran % (Auto) 0.4 Neut % (Auto) 69.3 Lymph % (Auto) 15.5 L [place] % (Auto) 8.2 Eos % (Auto) 6.2 H Baso % (Auto) 0.4 Lymph # (Auto) 0.8 L [place] # (Auto) 0.4 Eos # (Auto) 0.3 Baso # (Auto) 0.0 Abs Immat Gran (auto) 0.02 Absolute Neuts (auto) 3.6 Absolute Nucleated RBC 0.000 Nucleated RBC % (auto) 0.0 PT 13.1 INR 1.1 Anion Gap 11 L Estim Creat Clear Calc 35.0 Estimated GFR 27 POC Glucose Random Glucose 310 H Calcium 7.5 L Iron TIBC % Saturation Unsat Iron Binding Ferritin Total Bilirubin 1.4 H AST 49 H D ALT 14 Alkaline Phosphatase 85 D Total Protein 6.3 L Albumin 2.8 L 06/08/22 06/08/22 07:33 11:07 MCV MCH MCHC RDW Plt Count MPV Immature Gran % (Auto) Neut % (Auto) Lymph % (Auto) [place] % (Auto) Eos % (Auto) Baso % (Auto) Lymph # (Auto) [place] # (Auto) Eos # (Auto) Baso # (Auto) Abs Immat Gran (auto) Absolute Neuts (auto) Absolute Nucleated RBC Nucleated RBC % (auto) PT INR Anion Gap Estim Creat Clear Calc Estimated GFR POC Glucose 246 H 214 H Random Glucose Calcium Iron TIBC % Saturation Unsat Iron Binding Ferritin Total Bilirubin AST ALT Alkaline Phosphatase Total Protein Albumin Assessment and Plan (1) Fever: Status: Acute (2) Toxic metabolic encephalopathy: Status: Acute (3) Dysphagia, oropharyngeal phase: Status: Acute (4) Type 2 diabetes mellitus with diabetic polyneuropathy: Status: Acute (5) CKD (chronic kidney disease) stage 3, GFR 30-59 ml/min: Status: Acute Plan 61/m with CKD3, HTN, schizophrenia, diastolic CHF frequent hospitalization was admitted on 05/17 for anasarca, exacerbation of CHF, encephalopathy and was being diuressed, he became increasingly more confused, agitated and agressive with some adjustment t Psych meds..on 05/19 he vomitted and aspirated resulting in PEA arrest and was intubated and admitted to ICU with prolonged course and was finally extubated and transfer back to [facility] on 05/28 with high concern of oral feeding; NG tube in place. Repeat swallow eval 06/06 continues to recommend NPO status 1. Fever(Query right lower lobe infiltrate) -blood cultures x2; urine cultures; portable chest x-ray(likely infiltrate) -adding vancomycin to Zosyn -lactate 2. Toxic metabolic encephalopathy (likely multi factorial related to hyperammonemia/advanced Parkinson's/under lines schizophrenic tendencies) -continue lactulose through NG tube -Sinemet q.i.d. as ordered -treatment dictated by clinical course. Will avoid antipsychotics as possible. If agitated will try small dose of Seroquel 3. Severe oropharyngeal dysphagia -PEG placement on hold to fever workup complete 4. Diabetes type 2 -acceptable control on current therapies -continue sliding scale/Lantus as ordered -adjust as indicated 5. CKD -creatinine and returned to baseline -appreciate renal input -continue current therapies -follow renals/divalents - 6. Cirrhosis -continue lactulose as ordered -follow synthetic function Full Code DVT Prophylaxis: Heparin Requires ongoing hospitalization for treatment of pneumonia in the backdrop of mg p.o. status. Will also likely need PEG tube placement Quality Stroke Does the patient have a stroke diagnosis?: No VTE Prior VTE?: No VTE Risk Level:: Medical - moderate - high VTE Device Contraindication: Treatment Not Indicated VTE Drug Contraindication: N/A - Med Ordered
--- NOTE | 2022-06-08 15:07 | PHA.PROG ---
Admission Date/Time: May 17, 2022 17:33 Indication: Weight in k.8 kg Adjusted body weight in Kg: [place] body weight in Kg: Obesity Dosing Indication % IBW: Serum Creatinine - Last 168 Hours 06/02/22 06/03/22 06/03/22 05:21 06:11 17:50 Creatinine 2.72 H 2.55 H 2.49 H 06/04/22 06/04/22 06/05/22 08:01 17:34 07:28 Creatinine 2.43 H 2.52 H 2.35 H 06/06/22 06/07/22 06/08/22 04:41 04:28 05:49 Creatinine 2.35 H 2.39 H 2.43 H Estimated CrCl and GFR - Last 168 Hours 06/02/22 06/03/22 06/03/22 05:21 06:11 17:50 Estim Creat Clear Calc 31.2 34.7 35.6 Estimated GFR 24 26 06/04/22 06/04/22 06/05/22 08:01 17:34 07:28 Estim Creat Clear Calc 34.9 33.7 36.6 Estimated GFR 27 26 28 06/06/22 06/07/22 06/08/22 04:41 04:28 05:49 Estim Creat Clear Calc 36.6 36.1 35.0 Estimated GFR 27 Vancomycin Loading Dose: 2GM Current Vancomycin Dosing Regimen: 1 GM Q48H Vancomycin Monitoring using AUC goal of 400 - 600 range with trough as surrogate marker: Date and Time for next Vancomycin Level to be drawn: Pharmacist Comments on Vancomycin Plan: 2 gm to be given now, random trough to be drawn connor 06/09, pt scr showing increase on daily basis, due to elevated scr approach will be conservation until connor lab results, 1 gm currently set at q48h but depending on tomorrow's lab dose may need to be adjusted to 1 gm or 750 mg q24h Vancomycin dosing will take advantage of [employer] as a clinical decision support tool that uses Bayesian modeling to calculate individual patient's pharmacokinetic parameters and forecast the patient's drug concentration time course with the target goal AUC 24 range of 400 - 600 mg/L/hr.
[2022-06-08 15:37] LABS: Lactate Dehydrogenase 464 U/L (118-273)
[2022-06-08 16:11] LABS: Glucose, Whole Blood 208 mg/dL (60-115)
[2022-06-08] MEDS: Dextrose 5 % 1,000 ML 100 ML IVCONT (16:11)
--- NOTE | 2022-06-08 18:07 | PM.PNNEP ---
Subjective Subjective Date of Service: 06/08/22 Interval history: Seen and examined, events noted Physical Exam Vital Signs: Vital Signs: Last Vital Signs Temp 99.8 F 06/08/22 15:52 Pulse 77 06/08/22 15:52 Resp 18 06/08/22 15:52 BP 179/81 H 06/08/22 15:52 Pulse Ox 97 06/08/22 15:52 O2 Del Method 06/08/22 15:52 O2 Flow Rate 2 06/08/22 15:52 FiO2 25 05/26/22 09:00 BMI result Body Mass Index 28.4 Const: Other: General: lethargic but no distress,?He is not talking at all, no gurgling Resp:? rohan rhonchi, no accessory muscle use CVS: S1,S2,RRR--Swelling in all arms GI: +BS, NT, no distention Skin: No rash,?He has a 1/2 x 3 cm stage 2 decubitus on his? coccyx, a 1 cm DTI on his medial right buttock, and a 3 x 3 DTI on his left buttock Neuro:? motor grossly intact,?He moves all 4 spontaneously. Psych: flat General: no acute distress and other ( poor arousal with sedation vacation, anasarca) Eyes: Sclerae: sclerae normal EOM: EOMs intact bilaterally Neck: Neck: Yes no lymphadenopathy, Yes trachea midline and Yes supple Resp: Effort & Inspection: normal respiratory effort and no respiratory distress Auscultation: clear to auscultation bilaterally and crackles ( diffuse bilateral) Cardio: Rate: regular rate Rhythm: regular rhythm Heart sounds: no gallops, no murmurs and no rubs GI: Palpation (GI): Soft to palpation and Other GI palpation findings present ( Nontender) Auscultation: normal bowel sounds Extrem: General: Yes no pedal edema, No clubbing, No cyanosis and Yes pedal edema ( 2+ bilateral) Objective Data Labs CBC & Chem 7: 06/08/22 05:49 06/08/22 05:49 Labs: Laboratory Results - last 24 hr 06/07/22 06/07/22 06/08/22 04:28 20:01 05:49 WBC 5.2 RBC 2.83 L Hgb 8.8 L Hct 27.0 L MCV 95.4 MCH 31.1 MCHC 32.6 RDW 17.7 H Plt Count 117 L MPV 11.7 Immature Gran % (Auto) 0.4 Neut % (Auto) 69.3 Lymph % (Auto) 15.5 L [place] % (Auto) 8.2 Eos % (Auto) 6.2 H Baso % (Auto) 0.4 Lymph # (Auto) 0.8 L [place] # (Auto) 0.4 Eos # (Auto) 0.3 Baso # (Auto) 0.0 Abs Immat Gran (auto) 0.02 Absolute Neuts (auto) 3.6 Absolute Nucleated RBC 0.000 Nucleated RBC % (auto) 0.0 PT INR Sodium Potassium Chloride Carbon Dioxide Anion Gap BUN Creatinine Estim Creat Clear Calc Estimated GFR POC Glucose 144 H Random Glucose Calcium Iron 56 TIBC 165 L % Saturation 34 Unsat Iron Binding 109 Ferritin 453 H Total Bilirubin AST ALT Alkaline Phosphatase Lactate Dehydrogenase Total Protein Albumin 06/08/22 06/08/22 06/08/22 05:49 05:49 07:33 WBC RBC Hgb Hct MCV MCH MCHC RDW Plt Count MPV Immature Gran % (Auto) Neut % (Auto) Lymph % (Auto) [place] % (Auto) Eos % (Auto) Baso % (Auto) Lymph # (Auto) [place] # (Auto) Eos # (Auto) Baso # (Auto) Abs Immat Gran (auto) Absolute Neuts (auto) Absolute Nucleated RBC Nucleated RBC % (auto) PT 13.1 INR 1.1 Sodium 151 H Potassium 4.6 Chloride 121 H Carbon Dioxide 24 Anion Gap 11 L BUN 53 H Creatinine 2.43 H Estim Creat Clear Calc 35.0 Estimated GFR 27 POC Glucose 246 H Random Glucose 310 H Calcium 7.5 L Iron TIBC % Saturation Unsat Iron Binding Ferritin Total Bilirubin 1.4 H AST 49 H D ALT 14 Alkaline Phosphatase 85 D Lactate Dehydrogenase Total Protein 6.3 L Albumin 2.8 L 06/08/22 06/08/22 06/08/22 11:07 14:51 15:57 WBC RBC Hgb Hct MCV MCH MCHC RDW Plt Count MPV Immature Gran % (Auto) Neut % (Auto) Lymph % (Auto) [place] % (Auto) Eos % (Auto) Baso % (Auto) Lymph # (Auto) [place] # (Auto) Eos # (Auto) Baso # (Auto) Abs Immat Gran (auto) Absolute Neuts (auto) Absolute Nucleated RBC Nucleated RBC % (auto) PT INR Sodium Potassium Chloride Carbon Dioxide Anion Gap BUN Creatinine Estim Creat Clear Calc Estimated GFR POC Glucose 214 H 208 H Random Glucose Calcium Iron TIBC % Saturation Unsat Iron Binding Ferritin Total Bilirubin AST ALT Alkaline Phosphatase Lactate Dehydrogenase 464 H Total Protein Albumin Microbiology Microbiology Results: Microbiology 05/23/22 14:47 Sputum - Suctioned Gram Stain - Final 05/23/22 14:47 Sputum - Suctioned Sputum Culture - Final Klebsiella pneumoniae Yeast 05/20/22 00:48 Blood - Venous Blood Culture - Final No growth after 5 days. 05/20/22 00:48 Blood - Venous Blood Culture - Final No growth after 5 days. 05/17/22 17:00 Blood - Venous Blood Culture - Final No growth after 5 days. 05/17/22 16:10 Blood - Venous Blood Culture - Final No growth after 5 days. Procedures Date of Service Date of Service: 06/08/22 Assessment & Plan Assessment and plan (1) Parkinson disease: Status: Acute (2) Toxic metabolic encephalopathy: Status: Acute (3) Type 2 diabetes mellitus with diabetic polyneuropathy: Status: Acute Plan 1. ERNST: resolvedw peak Scr 3.2 2. CKD 4: BSL Scr 2.5-3.0 3. Anemia: ques Fe and/or EPO def 4. Metbolic: K/Na/HCO3ok 5. MBD of CKD 6. HyperNa: d/t diarrhea and incr IWL REC: replace FWand track SNa; check PTH; avoid Ntoxins; protect non-dominant arm Time Spent With Patient Time: Total time spent is greater than 50% in coordination of care (as documented) at patient's floor/unit and/or counseling patient: Progress Note: Quality Stroke Does the patient have a stroke diagnosis?: No
[2022-06-08 18:11] LABS: Anion Gap 9 (12-20); Blood Urea Nitrogen 51 mg/dL (9-16); Calcium 7.3 mg/dL (8.4-10.2); Carbon Dioxide 25 mmol/L (22-29); Chloride 123 mmol/L (96-108); Creatinine Clr Calc Pharmacy 37.2; Estimated Glomerular Filt Rate 29; Glucose Random 246 mg/dL (60-115); Lactate Dehydrogenase 445 U/L (118-273); Potassium 4.4 mmol/L (3.3-5.1); Sodium 153 mmol/L (135-145)
[2022-06-08 19:33] LABS: Glucose, Whole Blood 207 mg/dL (60-115)
[2022-06-08 22:59] LABS: Lactic Acid 1.2 mmol/L (0.5-2.0)
[2022-06-09] VITALS (9 sets, daily range): BP systolic 111–185; BP diastolic 59–81; PULSE 68–90; RESP 17–20; TEMP 37.1–37.9; O2SAT 92–99; BMI 29.0; BMI 31.9
[2022-06-09] MEDS: Dextrose 5 % 1,000 ML 100 ML IVCONT ×3 (00:43→19:19)
[2022-06-09] MEDS: Piperacillin Sodium/Tazobactam 4.5 GM in 0.9 % Sodium Chloride 100 ML IV ×3 (00:43→17:25)
[2022-06-09] MEDS: hydrALAZINE HCl 20 MG/ML VIAL 10 MG IVPUSH (03:35)
--- NOTE | 2022-06-09 04:07 | PC.NURSE ---
Patient rectal temp 101.1 at 2220 - cooling blanket placed on patient.
[2022-06-09] MEDS: Levothyroxine Sodium 25 MCG TABLET PO (05:56)
[2022-06-09] MEDS: Heparin Sodium,Porcine 5,000 UNIT/ML VIAL 5000 UNIT SUBCUT ×3 (05:56→22:02)
[2022-06-09 07:16] LABS: Glucose, Whole Blood 241 mg/dL (60-115)
[2022-06-09 08:03] LABS: MANUAL DIFF FLAG NO
[2022-06-09 08:09] LABS: Basophils Percent Auto 0.2 % (0-2); Eosinophils Absolute Auto 0.4 X10*3/uL (0.0-0.4); Eosinophils Percent Auto 6.6 % (0-4); Hemoglobin 8.3 g/dl (14.0-18.0); Imm Gran Abs Auto 0.03 X10*3/uL (0.00-0.03); Imm Gran Pct Auto 0.6 % (0.0-0.4); Lymphocytes Absolute Auto 0.9 X10*3/uL (1.2-4.9); Lymphocytes Percent Auto 16.7 % (20-40); Mean Corpuscular HGB Conc 31.9 g/dl (31.0-36.0); Mean Corpuscular Hemoglobin 30.7 pg (27.0-33.0); Mean Corpuscular Volume 96.3 fL (80.0-98.0); Monocytes Absolute Auto 0.4 X10*3/uL (0.1-1.2); Neutrophils Absolute Auto 3.8 x10*3/uL (2.0-8.3); Neutrophils Percent Auto 68.9 % (45-73); Platelet Count 110 X10*3/uL (160-400); Red Cell Distribution Width 18.2 % (11.0-16.0); White Blood Count 5.4 X10*3/uL (4.8-10.8)
[2022-06-09 08:31] LABS: Alanine Aminotransferase 14 U/L (0-40); Albumin Level 2.7 g/dL (3.5-5.0); Alkaline Phosphatase 80 U/L (39-117); Aspartate Amino Transferase 37 U/L (5-37); Bilirubin Total 1.2 mg/dL (0.0-1.0); Blood Urea Nitrogen 50 mg/dL (9-16); Calcium 7.4 mg/dL (8.4-10.2); Creatinine Clr Calc Pharmacy 36.9; Estimated Glomerular Filt Rate 28; Glucose Random 314 mg/dL (60-115); Total Protein 6.2 g/dL (6.5-8.0)
[2022-06-09 08:43] LABS: Anion Gap 12 (12-20); Carbon Dioxide 21 mmol/L (22-29); Chloride 124 mmol/L (96-108); Potassium 4.7 mmol/L (3.3-5.1); Sodium 152 mmol/L (135-145)
[2022-06-09] MEDS: Insulin Lispro 100 UNIT/ML 3 ML VIAL SUBCUT ×3 (08:44→17:27)
[2022-06-09] MEDS: Insulin Glargine,Hum.rec.anlog 100 UNIT/ML 10 ML VIAL 30 UNIT SUBCUT (08:44)
[2022-06-09] MEDS: modafiniL 100 MG TABLET 200 MG PO (08:52)
[2022-06-09] MEDS: amLODIPine Besylate 10 MG TABLET PO (08:53)
[2022-06-09] MEDS: Carbidopa/Levodopa 25/100 TABLET 1 TAB PO ×4 (08:53→19:19)
[2022-06-09] MEDS: Lactulose 20 GM/30 ML SOLUTION OG-TUBE (08:53)
[2022-06-09] MEDS: Metoprolol Tartrate 25 MG TABLET PO ×2 (08:53→19:19)
[2022-06-09] MEDS: 0.9 % Sodium Chloride Flush 3 ML SYRINGE IVFLUSH ×3 (09:02→19:19)
[2022-06-09 11:21] LABS: Glucose, Whole Blood 230 mg/dL (60-115)
--- NOTE | 2022-06-09 11:30 | MHC.SLORD ---
Speech Language Pathology Order Status: Pt w/ Fever this a.m., CXR small L pleural effusion, Pt NPO due to high aspiration risk, not appropriate for P.O. trials w/ instrument checker. Will continue to follow.
--- NOTE | 2022-06-09 13:10 | P.PNIM_ITS ---
Subjective Subjective Date of Service: 06/09/22 Interval History: Continues to be mildly agitated with low-grade fevers Review of Systems Unable to obtain. Physical Exam Vital Signs: Vital Signs: Last Vital Signs Temp 100.0 F 06/09/22 11:38 Pulse 78 06/09/22 11:38 Resp 20 06/09/22 11:38 BP 153/65 H 06/09/22 11:38 Pulse Ox 97 06/09/22 11:38 O2 Del Method 06/09/22 11:38 O2 Flow Rate 2 06/09/22 11:38 FiO2 25 05/26/22 09:00 BMI result Body Mass Index 29.0 Const: Other: Awake confused HEENT: Other: NGT right naris Resp: Other: Diminished at bases with scant end-expiratory crackles Cardio: Other: No S4; positive S1-S2; no S3 murmurs rubs or gallops GI: Other: Soft nontender nondistended. Normoactive bowel sounds Extrem: Other: Trace pedal edema bilaterally Objective Data Active Medications Acetaminophen (Acetaminophen Supp 650 Mg Supp.Rect) 650 mg AL Q6H PRN PRN Reason: Fever >100.4 Last Admin: 06/08/22 11:49 Dose: 650 mg Documented By: LUIS Amlodipine Besylate (Amlodipine Besylate 10 Mg Tablet) 10 mg PO DAILY [facility]; Protocol Last Admin: 06/09/22 08:53 Dose: 10 mg Documented By: TOMY Carbidopa/Levodopa (Carbidopa/Levodopa 25/100 Tablet) 1 tab PO QID [facility] Last Admin: 06/09/22 08:53 Dose: 1 tab Documented By: TOMY Heparin Sodium (Porcine) (Heparin Sodium,Porcine 5,000 Unit/Ml Vial) 5,000 unit SUBCUT Q8H [facility] Last Admin: 06/09/22 05:56 Dose: 5,000 unit Documented By: MEKHI Hydralazine HCl (Hydralazine Hcl 20 Mg/Ml Vial) 10 mg IVPUSH Q6H PRN; Protocol PRN Reason: SBP > 180 Last Admin: 06/09/22 03:35 Dose: 10 mg Documented By: MEKHI Piperacillin Sod/Tazobactam (Sod 4.5 gm/ Sodium Chloride) 100 mls @ 200 mls/hr IV Q8H [facility] Last Infusion: 06/09/22 10:28 Dose: 0 mls/hr Documented By: TOMY Dextrose (D5w) 1,000 mls @ 100 mls/hr IVCONT .Q10H [facility] Last Admin: 06/09/22 10:27 Dose: 100 mls/hr Documented By: TOMY Vancomycin HCl 1,000 mg/ (Sodium Chloride) 270 mls @ 270 mls/hr IV Q48H [facility] Insulin Glargine (Insulin Glargine,Hum.Rec.Anlog 100 Unit/Ml 10 Ml Vial) 30 unit SUBCUT DAILY [facility] Last Admin: 06/09/22 08:44 Dose: 30 unit Documented By: TOMY Insulin Human Lispro (Insulin Lispro 100 Unit/Ml 3 Ml Vial) 0 unit SUBCUT QIDACHS [facility]; Protocol Last Admin: 06/09/22 08:44 Dose: 5 unit Documented By: TOMY Lactulose (Lactulose 20 Gm/30 Ml Solution) 20 gm OG-TUBE Q6H [facility] Last Admin: 06/09/22 08:53 Dose: 20 gm Documented By: TOMY Levothyroxine Sodium (Levothyroxine Sodium 25 Mcg Tablet) 25 mcg PO DAILY@0600 [facility] Last Admin: 06/09/22 05:56 Dose: 25 mcg Documented By: MEKHI Metoprolol Tartrate (Metoprolol Tartrate 25 Mg Tablet) 25 mg PO BID [facility]; Protocol Last Admin: 06/09/22 08:53 Dose: 25 mg Documented By: TOMY Modafinil (Modafinil 100 Mg Tablet) 200 mg PO DAILY [facility] Last Admin: 06/09/22 08:52 Dose: 200 mg Documented By: TOMY Omeprazole (Omeprazole 20 Mg/10 Ml Susp.Recon) 40 mg G-TUBE DAILY@0630 [facility] Last Admin: 06/09/22 05:56 Dose: 40 mg Documented By: MEKHI Pharmacy Consult (Consult Rx Perform Med Rec) 1 each MISCELLANE ONCE PRN PRN Reason: Consult order Pharmacy Consult (Consult Rx Vancomycin Dosing) 1 each MISCELLANE DAILY PRN PRN Reason: Consult order Sodium Chloride (0.9 % Sodium Chloride Flush 3 Ml Syringe) 3 ml IVFLUSH QSHIFT [facility] Last Admin: 06/09/22 09:02 Dose: 3 ml Documented By: TOMY Labs CBC & Chem 7: 06/09/22 07:58 06/09/22 07:58 Labs: Laboratory Results - last 24 hr 06/08/22 06/08/22 06/08/22 14:51 15:57 17:37 MCV MCH MCHC RDW Plt Count MPV Immature Gran % (Auto) Neut % (Auto) Lymph % (Auto) [place] % (Auto) Eos % (Auto) Baso % (Auto) Lymph # (Auto) [place] # (Auto) Eos # (Auto) Baso # (Auto) Abs Immat Gran (auto) Absolute Neuts (auto) Absolute Nucleated RBC Nucleated RBC % (auto) Anion Gap 9 L Estim Creat Clear Calc 37.2 Estimated GFR 29 POC Glucose 208 H Random Glucose 246 H Lactic Acid Calcium 7.3 L Total Bilirubin AST ALT Alkaline Phosphatase Lactate Dehydrogenase 464 H 445 H Total Protein Albumin 06/08/22 06/08/22 06/08/22 18:22 19:29 22:33 MCV MCH MCHC RDW Plt Count MPV Immature Gran % (Auto) Neut % (Auto) Lymph % (Auto) [place] % (Auto) Eos % (Auto) Baso % (Auto) Lymph # (Auto) [place] # (Auto) Eos # (Auto) Baso # (Auto) Abs Immat Gran (auto) Absolute Neuts (auto) Absolute Nucleated RBC Nucleated RBC % (auto) Anion Gap Estim Creat Clear Calc Estimated GFR POC Glucose 207 H Random Glucose Lactic Acid 1.0 1.2 Calcium Total Bilirubin AST ALT Alkaline Phosphatase Lactate Dehydrogenase Total Protein Albumin 06/09/22 06/09/22 06/09/22 07:08 07:58 07:58 MCV 96.3 MCH 30.7 MCHC 31.9 RDW 18.2 H Plt Count 110 L MPV 11.0 Immature Gran % (Auto) 0.6 H Neut % (Auto) 68.9 Lymph % (Auto) 16.7 L [place] % (Auto) 7.0 Eos % (Auto) 6.6 H Baso % (Auto) 0.2 Lymph # (Auto) 0.9 L [place] # (Auto) 0.4 Eos # (Auto) 0.4 Baso # (Auto) 0.0 Abs Immat Gran (auto) 0.03 Absolute Neuts (auto) 3.8 Absolute Nucleated RBC 0.000 Nucleated RBC % (auto) 0.0 Anion Gap 12 Estim Creat Clear Calc 36.9 Estimated GFR 28 POC Glucose 241 H Random Glucose 314 H Lactic Acid Calcium 7.4 L Total Bilirubin 1.2 H AST 37 ALT 14 Alkaline Phosphatase 80 Lactate Dehydrogenase Total Protein 6.2 L Albumin 2.7 L 06/09/22 11:17 MCV MCH MCHC RDW Plt Count MPV Immature Gran % (Auto) Neut % (Auto) Lymph % (Auto) [place] % (Auto) Eos % (Auto) Baso % (Auto) Lymph # (Auto) [place] # (Auto) Eos # (Auto) Baso # (Auto) Abs Immat Gran (auto) Absolute Neuts (auto) Absolute Nucleated RBC Nucleated RBC % (auto) Anion Gap Estim Creat Clear Calc Estimated GFR POC Glucose 230 H Random Glucose Lactic Acid Calcium Total Bilirubin AST ALT Alkaline Phosphatase Lactate Dehydrogenase Total Protein Albumin Assessment and Plan (1) Fever: Status: Acute (2) Toxic metabolic encephalopathy: Status: Acute (3) Dysphagia, oropharyngeal phase: Status: Acute (4) Type 2 diabetes mellitus with diabetic polyneuropathy: Status: Acute (5) CKD (chronic kidney disease) stage 3, GFR 30-59 ml/min: Status: Acute Plan 61/m with CKD3, HTN, schizophrenia, diastolic CHF frequent hospitalization was admitted on 05/17 for anasarca, exacerbation of CHF, encephalopathy and was being diuressed, he became increasingly more confused, agitated and agressive with some adjustment t Psych meds..on 05/19 he vomitted and aspirated resulting in PEA arrest and was intubated and admitted to ICU with prolonged course and was finally extubated and transfer back to [facility] on 05/28 with high concern of oral feeding; NG tube in place. Repeat swallow eval 06/06 continues to recommend NPO status 1. Fever(Query right lower lobe infiltrate) -blood cultures x2; urine cultures; portable chest x-ray essentially unchanged. Sputum grew Klebsiella -adding vancomycin to Zosyn 2. Toxic metabolic encephalopathy (likely multi factorial related to hyperammonemia/advanced Parkinson's/under lines schizophrenic tendencies) -continue lactulose through NG tube -Sinemet q.i.d. as ordered -treatment dictated by clinical course. Will avoid antipsychotics as possible. If agitated will try small dose of Seroquel 3. Severe oropharyngeal dysphagia -PEG placement on hold until patient is 48 hours afebrile 4. Diabetes type 2 -acceptable control on current therapies -continue sliding scale/Lantus as ordered -adjust as indicated 5. CKD -creatinine and returned to baseline -appreciate renal input -continue current therapies -follow renals/divalents - 6. Cirrhosis -continue lactulose as ordered -follow synthetic function Full Code DVT Prophylaxis: Heparin Requires ongoing hospitalization for treatment of pneumonia in the backdrop of mg p.o. status. Will also likely need PEG tube placement Quality Stroke Does the patient have a stroke diagnosis?: No VTE Prior VTE?: No VTE Risk Level:: Medical - moderate - high VTE Device Contraindication: Treatment Not Indicated VTE Drug Contraindication: N/A - Med Ordered
[2022-06-09 14:22] LABS: Calcium (PTHI) 7.7 mg/dL (8.6-10.3); PTHI 144 pg/mL (16-77)
[2022-06-09 15:55] LABS: Glucose, Whole Blood 152 mg/dL (60-115)
[2022-06-09 16:52] LABS: Vancomycin Random 13.6 mcg/mL (15-20)
--- NOTE | 2022-06-09 16:59 | HE.PHANOTE ---
Vancomycin Addendum Patient Random level came back at 13.6 after vancomycin 2000 mg load dose. Will give vancomycin 1000 mg now and plan for Q24H dosing. Will get random vancomycin prior to each dose until patient's level is stable. Next level 06/10 @ 1500. Windy Morillo, SergoD
[2022-06-09] MEDS: vancomycin HCL 1,000 MG in 0.9 % Sodium Chloride 250 ML 270 MG IV (18:06)
--- NOTE | 2022-06-09 18:52 | P.PNNP_ITS ---
Subjective Subjective Date of Service: 06/09/22 Interval history: Seen and exmamined, events noted Physical Exam Vital Signs: Vital Signs: Last Vital Signs Temp 99.7 F 06/09/22 15:20 Pulse 78 06/09/22 15:20 Resp 18 06/09/22 15:20 BP 130/81 06/09/22 15:20 Pulse Ox 96 06/09/22 15:20 O2 Del Method 06/09/22 15:20 O2 Flow Rate 2 06/09/22 15:20 FiO2 25 05/26/22 09:00 BMI result Body Mass Index 29.0 Const: Other: General: lethargic but no distress,?He is not talking at all, no gurgling Resp:? rohan rhonchi, no accessory muscle use CVS: S1,S2,RRR--Swelling in all arms GI: +BS, NT, no distention Skin: No rash,?He has a 1/2 x 3 cm stage 2 decubitus on his? coccyx, a 1 cm DTI on his medial right buttock, and a 3 x 3 DTI on his left buttock Neuro:? motor grossly intact,?He moves all 4 spontaneously. Psych: flat General: no acute distress and other ( poor arousal with sedation vacation, anasarca) Eyes: Sclerae: sclerae normal EOM: EOMs intact bilaterally Neck: Neck: Yes no lymphadenopathy, Yes trachea midline and Yes supple Resp: Effort & Inspection: normal respiratory effort and no respiratory distress Auscultation: clear to auscultation bilaterally and crackles ( diffuse bilateral) Cardio: Rate: regular rate Rhythm: regular rhythm Heart sounds: no gallops, no murmurs and no rubs GI: Palpation (GI): Soft to palpation and Other GI palpation findings present ( Nontender) Auscultation: normal bowel sounds Extrem: General: Yes no pedal edema, No clubbing, No cyanosis and Yes pedal edema ( 2+ bilateral) Objective Data Labs CBC & Chem 7: 06/09/22 07:58 06/09/22 07:58 Labs: Laboratory Results - last 24 hr 06/08/22 06/08/22 06/08/22 05:49 19:29 22:33 WBC RBC Hgb Hct MCV MCH MCHC RDW Plt Count MPV Immature Gran % (Auto) Neut % (Auto) Lymph % (Auto) [place] % (Auto) Eos % (Auto) Baso % (Auto) Lymph # (Auto) [place] # (Auto) Eos # (Auto) Baso # (Auto) Abs Immat Gran (auto) Absolute Neuts (auto) Absolute Nucleated RBC Nucleated RBC % (auto) Sodium Potassium Chloride Carbon Dioxide Anion Gap BUN Creatinine Estim Creat Clear Calc Estimated GFR POC Glucose 207 H Random Glucose Lactic Acid 1.2 Calcium Total Bilirubin AST ALT Alkaline Phosphatase Total Protein Albumin PTH Intact 144 H Calcium (PTH Intact) 7.7 L Random Vancomycin 06/09/22 06/09/22 06/09/22 07:08 07:58 07:58 WBC 5.4 RBC 2.70 L Hgb 8.3 L Hct 26.0 L MCV 96.3 MCH 30.7 MCHC 31.9 RDW 18.2 H Plt Count 110 L MPV 11.0 Immature Gran % (Auto) 0.6 H Neut % (Auto) 68.9 Lymph % (Auto) 16.7 L [place] % (Auto) 7.0 Eos % (Auto) 6.6 H Baso % (Auto) 0.2 Lymph # (Auto) 0.9 L [place] # (Auto) 0.4 Eos # (Auto) 0.4 Baso # (Auto) 0.0 Abs Immat Gran (auto) 0.03 Absolute Neuts (auto) 3.8 Absolute Nucleated RBC 0.000 Nucleated RBC % (auto) 0.0 Sodium 152 H Potassium 4.7 Chloride 124 H Carbon Dioxide 21 L Anion Gap 12 BUN 50 H Creatinine 2.33 H Estim Creat Clear Calc 36.9 Estimated GFR 28 POC Glucose 241 H Random Glucose 314 H Lactic Acid Calcium 7.4 L Total Bilirubin 1.2 H AST 37 ALT 14 Alkaline Phosphatase 80 Total Protein 6.2 L Albumin 2.7 L PTH Intact Calcium (PTH Intact) Random Vancomycin 06/09/22 06/09/22 06/09/22 11:17 14:48 15:52 WBC RBC Hgb Hct MCV MCH MCHC RDW Plt Count MPV Immature Gran % (Auto) Neut % (Auto) Lymph % (Auto) [place] % (Auto) Eos % (Auto) Baso % (Auto) Lymph # (Auto) [place] # (Auto) Eos # (Auto) Baso # (Auto) Abs Immat Gran (auto) Absolute Neuts (auto) Absolute Nucleated RBC Nucleated RBC % (auto) Sodium Potassium Chloride Carbon Dioxide Anion Gap BUN Creatinine Estim Creat Clear Calc Estimated GFR POC Glucose 230 H 152 H Random Glucose Lactic Acid Calcium Total Bilirubin AST ALT Alkaline Phosphatase Total Protein Albumin PTH Intact Calcium (PTH Intact) Random Vancomycin 13.6 L Microbiology Microbiology Results: Microbiology 06/08/22 14:51 Blood - Venous Blood Culture - Preliminary No growth after 24 hours. 06/08/22 14:51 Blood - Venous Blood Culture - Preliminary No growth after 24 hours. 06/08/22 18:29 Urine Catheterized - Ybarra Catheter Urine Culture - Preliminary No growth to date. 05/23/22 14:47 Sputum - Suctioned Gram Stain - Final 05/23/22 14:47 Sputum - Suctioned Sputum Culture - Final Klebsiella pneumoniae Yeast 05/20/22 00:48 Blood - Venous Blood Culture - Final No growth after 5 days. 05/20/22 00:48 Blood - Venous Blood Culture - Final No growth after 5 days. 05/17/22 17:00 Blood - Venous Blood Culture - Final No growth after 5 days. 05/17/22 16:10 Blood - Venous Blood Culture - Final No growth after 5 days. Procedures Date of Service Date of Service: 06/09/22 Assessment & Plan Assessment and plan (1) Parkinson disease: Status: Acute (2) Toxic metabolic encephalopathy: Status: Acute (3) Type 2 diabetes mellitus with diabetic polyneuropathy: Status: Acute Plan 1. ERNST: resolvedw peak Scr 3.2 2. CKD 4: BSL Scr 2.5-3.0 3. Anemia: ques Fe and/or EPO def 4. Metbolic: K/Na/HCO3ok 5. MBD of CKD 6. HyperNa: d/t diarrhea and incr IWL REC: incr replace FW via NGT and IV and repeat SNa this PM; and track SNa; check PTH; avoid Ntoxins; protect non-dominant arm Time Spent With Patient Time: Total time spent is greater than 50% in coordination of care (as documented) at patient's floor/unit and/or counseling patient: Progress Note: Quality Stroke Does the patient have a stroke diagnosis?: No
[2022-06-09 19:19] LABS: Glucose, Whole Blood 141 mg/dL (60-115)
[2022-06-09 19:42] LABS: Anion Gap 11 (12-20); Carbon Dioxide 21 mmol/L (22-29); Chloride 124 mmol/L (96-108); Potassium 4.3 mmol/L (3.3-5.1); Sodium 152 mmol/L (135-145)
[2022-06-10] MEDS: Piperacillin Sodium/Tazobactam 4.5 GM in 0.9 % Sodium Chloride 100 ML IV ×3 (00:33→16:50)
[2022-06-10 04:00] VITALS: BP 146/64; PULSE 74; RESP 18; TEMP 37.3; O2SAT 92
[2022-06-10] MEDS: Dextrose 5 % 1,000 ML 100 ML IVCONT ×2 (05:07→15:15)
[2022-06-10] MEDS: Levothyroxine Sodium 25 MCG TABLET PO (05:09)
[2022-06-10] MEDS: Heparin Sodium,Porcine 5,000 UNIT/ML VIAL 5000 UNIT SUBCUT ×3 (05:10→22:16)
[2022-06-10 05:33] VITALS: BMI 28.4
[2022-06-10 05:34] VITALS: BMI 28.4
[2022-06-10 06:42] LABS: MANUAL DIFF FLAG NO
[2022-06-10 06:48] LABS: Basophils Percent Auto 0.2 % (0-2); Eosinophils Absolute Auto 0.4 X10*3/uL (0.0-0.4); Eosinophils Percent Auto 8.3 % (0-4); Hematocrit 24.6 % (42.0-52.0); Hemoglobin 7.8 g/dl (14.0-18.0); Imm Gran Abs Auto 0.02 X10*3/uL (0.00-0.03); Imm Gran Pct Auto 0.4 % (0.0-0.4); Lymphocytes Absolute Auto 0.8 X10*3/uL (1.2-4.9); Lymphocytes Percent Auto 15.1 % (20-40); Mean Corpuscular HGB Conc 31.7 g/dl (31.0-36.0); Mean Corpuscular Hemoglobin 30.6 pg (27.0-33.0); Mean Corpuscular Volume 96.5 fL (80.0-98.0); Mean Platelet Volume 11.7 fL (9.4-12.4); Monocytes Absolute Auto 0.4 X10*3/uL (0.1-1.2); Neutrophils Absolute Auto 3.7 x10*3/uL (2.0-8.3); Red Blood Count 2.55 X10*6/uL (4.60-5.80); White Blood Count 5.3 X10*3/uL (4.8-10.8)
[2022-06-10 06:57] LABS: Platelet Count 95 X10*3/uL (160-400)
[2022-06-10 07:14] LABS: Alanine Aminotransferase 8 U/L (0-40); Albumin Level 2.6 g/dL (3.5-5.0); Alkaline Phosphatase 75 U/L (39-117); Aspartate Amino Transferase 32 U/L (5-37); Bilirubin Total 1.3 mg/dL (0.0-1.0); Blood Urea Nitrogen 47 mg/dL (9-16); Calcium 7.3 mg/dL (8.4-10.2); Creatinine Clr Calc Pharmacy 40.6; Estimated Glomerular Filt Rate 32; Glucose Random 275 mg/dL (60-115)
[2022-06-10 07:15] VITALS: BP 111/71; PULSE 72; RESP 18; TEMP 36.4; O2SAT 95
[2022-06-10 07:28] LABS: Anion Gap 14 (12-20); Carbon Dioxide 21 mmol/L (22-29); Chloride 122 mmol/L (96-108); Potassium 4.7 mmol/L (3.3-5.1); Sodium 152 mmol/L (135-145)
[2022-06-10 07:37] LABS: Glucose, Whole Blood 244 mg/dL (60-115)
[2022-06-10] MEDS: Insulin Lispro 100 UNIT/ML 3 ML VIAL SUBCUT ×4 (08:09→22:16)
[2022-06-10] MEDS: Carbidopa/Levodopa 25/100 TABLET 1 TAB PO ×4 (08:12→22:16)
[2022-06-10] MEDS: modafiniL 100 MG TABLET 200 MG PO (08:12)
[2022-06-10] MEDS: amLODIPine Besylate 10 MG TABLET PO (08:12)
[2022-06-10] MEDS: Metoprolol Tartrate 25 MG TABLET PO ×2 (08:12→22:16)
[2022-06-10] MEDS: Insulin Glargine,Hum.rec.anlog 100 UNIT/ML 10 ML VIAL 30 UNIT SUBCUT (08:13)
--- NOTE | 2022-06-10 11:18 | MHC.CLN ---
F/U PT CONTINUES WITH NG TUBE IN PLACE PEG ON HOLD UNTIL FEVERS SUBSIDE X48HRS PT RECEIVING PROMOTE AT MAX GOAL RATE OF 75ML/HR WITH 300ML FREE WATER FLUSHES Q 4 HOURS PROVIDES 1800KCALS (24KCALS/KG BASED ON IBW), 112.5G PROTEIN (1.5G/KG BASED ON IBW) FOR WOUND HEALING, 3310ML TOTAL WATER FROM FORMULA AND FLUSHES (44ML/KG BASED ON IBW) SERUM NA REMAINS UNCHANGED TODAY NEPHRO FOLLOWING AND NOTED HyperNa: d/t diarrhea and incr IWL PT RECEIVING MAXIMUM AMOUNT OF FREE WATER AVAILABLE AT THIS TIME IN ADDITION D5W RUNNING NOW CONTINUE TO MONITOR TOLERANCE, RESIDUALS AND LYTES AWAITING PEG
--- NOTE | 2022-06-10 11:18 | MHC.CM.PN ---
Per ROUNDS discussion, Patient is not yet medically cleared for dc today (IV VANVO, IV Zosyn, required IV Hydralazine yesterday, needs Peg once afebrile X 48 hours); returning to [facility] is the goal and CM will continue to follow.
[2022-06-10 11:28] VITALS: BP 138/64; PULSE 68; RESP 18; TEMP 36.6; O2SAT 95
[2022-06-10 11:36] LABS: Glucose, Whole Blood 222 mg/dL (60-115)
--- NOTE | 2022-06-10 12:03 | P.PNNP_ITS ---
Subjective Subjective Date of Service: 06/10/22 Interval history: Events noted; All recent data reviewed Physical Exam Vital Signs: Vital Signs: Last Vital Signs Temp 97.9 F 06/10/22 11:28 Pulse 68 06/10/22 11:28 Resp 18 06/10/22 11:28 BP 138/64 06/10/22 11:28 Pulse Ox 95 06/10/22 11:28 O2 Del Method 06/10/22 11:28 O2 Flow Rate 2 06/10/22 11:28 FiO2 25 05/26/22 09:00 BMI result Body Mass Index 28.4 Const: General: no acute distress Neck: Neck: Yes supple Resp: Auscultation: diminished lung sounds Cardio: Rate: regular rate GI: Palpation (GI): Soft to palpation Neuro: General: moves all extremities Objective Data Labs CBC & Chem 7: 06/10/22 06:21 06/10/22 06:21 Labs: Laboratory Results - last 24 hr 06/08/22 06/09/22 06/09/22 05:49 14:48 15:52 WBC RBC Hgb Hct MCV MCH MCHC RDW Plt Count MPV Immature Gran % (Auto) Neut % (Auto) Lymph % (Auto) [place] % (Auto) Eos % (Auto) Baso % (Auto) Lymph # (Auto) [place] # (Auto) Eos # (Auto) Baso # (Auto) Abs Immat Gran (auto) Absolute Neuts (auto) Absolute Nucleated RBC Nucleated RBC % (auto) Sodium Potassium Chloride Carbon Dioxide Anion Gap BUN Creatinine Estim Creat Clear Calc Estimated GFR POC Glucose 152 H Random Glucose Calcium Total Bilirubin AST ALT Alkaline Phosphatase Total Protein Albumin PTH Intact 144 H Calcium (PTH Intact) 7.7 L Random Vancomycin 13.6 L 06/09/22 06/09/22 06/10/22 19:07 19:15 06:21 WBC 5.3 RBC 2.55 L Hgb 7.8 L Hct 24.6 L MCV 96.5 MCH 30.6 MCHC 31.7 RDW 18.0 H Plt Count 95 L MPV 11.7 Immature Gran % (Auto) 0.4 Neut % (Auto) 69.0 Lymph % (Auto) 15.1 L [place] % (Auto) 7.0 Eos % (Auto) 8.3 H Baso % (Auto) 0.2 Lymph # (Auto) 0.8 L [place] # (Auto) 0.4 Eos # (Auto) 0.4 Baso # (Auto) 0.0 Abs Immat Gran (auto) 0.02 Absolute Neuts (auto) 3.7 Absolute Nucleated RBC 0.000 Nucleated RBC % (auto) 0.0 Sodium 152 H Potassium 4.3 Chloride 124 H Carbon Dioxide 21 L Anion Gap 11 L BUN Creatinine Estim Creat Clear Calc Estimated GFR POC Glucose 141 H Random Glucose Calcium Total Bilirubin AST ALT Alkaline Phosphatase Total Protein Albumin PTH Intact Calcium (PTH Intact) Random Vancomycin 06/10/22 06/10/22 06/10/22 06:21 07:20 11:33 WBC RBC Hgb Hct MCV MCH MCHC RDW Plt Count MPV Immature Gran % (Auto) Neut % (Auto) Lymph % (Auto) [place] % (Auto) Eos % (Auto) Baso % (Auto) Lymph # (Auto) [place] # (Auto) Eos # (Auto) Baso # (Auto) Abs Immat Gran (auto) Absolute Neuts (auto) Absolute Nucleated RBC Nucleated RBC % (auto) Sodium 152 H Potassium 4.7 Chloride 122 H Carbon Dioxide 21 L Anion Gap 14 BUN 47 H Creatinine 2.10 H Estim Creat Clear Calc 40.6 Estimated GFR 32 POC Glucose 244 H 222 H Random Glucose 275 H Calcium 7.3 L Total Bilirubin 1.3 H AST 32 ALT 8 Alkaline Phosphatase 75 Total Protein 6.0 L Albumin 2.6 L PTH Intact Calcium (PTH Intact) Random Vancomycin Microbiology Microbiology Results: Microbiology 06/08/22 14:51 Blood - Venous Blood Culture - Preliminary No growth after 24 hours. 06/08/22 14:51 Blood - Venous Blood Culture - Preliminary No growth after 24 hours. 06/08/22 18:29 Urine Catheterized - Ybarra Catheter Urine Culture - Preliminary No growth to date. 05/23/22 14:47 Sputum - Suctioned Gram Stain - Final 05/23/22 14:47 Sputum - Suctioned Sputum Culture - Final Klebsiella pneumoniae Yeast 05/20/22 00:48 Blood - Venous Blood Culture - Final No growth after 5 days. 05/20/22 00:48 Blood - Venous Blood Culture - Final No growth after 5 days. 05/17/22 17:00 Blood - Venous Blood Culture - Final No growth after 5 days. 05/17/22 16:10 Blood - Venous Blood Culture - Final No growth after 5 days. Procedures Date of Service Date of Service: 06/10/22 Assessment & Plan Assessment and plan (1) CKD (chronic kidney disease) stage 3, GFR 30-59 ml/min: Status: Acute Assessment and Plan: ERNST- resolved Has CKD 4 @ baseline with Scr 2.5-3.0 Hypernatremia; Needs continued free water replacement Concur with rest of current management Time Spent With Patient Time: Total time spent is greater than 50% in coordination of care (as documented) at patient's floor/unit and/or counseling patient: Progress Note: Quality Stroke Does the patient have a stroke diagnosis?: No
--- NOTE | 2022-06-10 13:19 | MHC.SLORD ---
Speech Language Pathology Order Status: Pt lethargic, sleeping this morning. Per chart review, PEG placement on hold until pt is 48 hours afebrile. 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
--- NOTE | 2022-06-10 14:26 | HO.PM.IMPN ---
Subjective Subjective Date of Service: 06/10/22 Interval History: No acute issues overnight Review of Systems Unable to obtain. Physical Exam Vital Signs: Vital Signs: Last Vital Signs Temp 97.9 F 06/10/22 11:28 Pulse 68 06/10/22 11:28 Resp 18 06/10/22 11:28 BP 138/64 06/10/22 11:28 Pulse Ox 95 06/10/22 11:28 O2 Del Method 06/10/22 11:28 O2 Flow Rate 2 06/10/22 11:28 FiO2 25 05/26/22 09:00 BMI result Body Mass Index 28.4 Const: Other: Awake confused HEENT: Other: NGT right naris Resp: Other: Diminished at bases with scant end-expiratory crackles Cardio: Other: No S4; positive S1-S2; no S3 murmurs rubs or gallops GI: Other: Soft nontender nondistended. Normoactive bowel sounds Extrem: Other: Trace pedal edema bilaterally Objective Data Active Medications Acetaminophen (Acetaminophen Supp 650 Mg Supp.Rect) 650 mg [place] Q6H PRN PRN Reason: Fever >100.4 Last Admin: 06/08/22 11:49 Dose: 650 mg Documented By: LUIS Amlodipine Besylate (Amlodipine Besylate 10 Mg Tablet) 10 mg PO DAILY [facility]; Protocol Last Admin: 06/10/22 08:12 Dose: 10 mg Documented By: NERI Carbidopa/Levodopa (Carbidopa/Levodopa 25/100 Tablet) 1 tab PO QID [facility] Last Admin: 06/10/22 12:07 Dose: 1 tab Documented By: NERI Heparin Sodium (Porcine) (Heparin Sodium,Porcine 5,000 Unit/Ml Vial) 5,000 unit SUBCUT Q8H [facility] Last Admin: 06/10/22 14:24 Dose: 5,000 unit Documented By: NERI Hydralazine HCl (Hydralazine Hcl 20 Mg/Ml Vial) 10 mg IVPUSH Q6H PRN; Protocol PRN Reason: SBP > 180 Last Admin: 06/09/22 03:35 Dose: 10 mg Documented By: MEKHI Piperacillin Sod/Tazobactam (Sod 4.5 gm/ Sodium Chloride) 100 mls @ 200 mls/hr IV Q8H [facility] Last Infusion: 06/10/22 10:41 Dose: 0 mls/hr Documented By: SALIAJA Dextrose (D5w) 1,000 mls @ 100 mls/hr IVCONT .Q10H [facility] Last Admin: 06/10/22 05:07 Dose: 100 mls/hr Documented By: COREY Vancomycin HCl 1,000 mg/ (Sodium Chloride) 270 mls @ 270 mls/hr IV Q24H [facility] Last Infusion: 06/09/22 19:29 Dose: 0 mls/hr Documented By: COREY Insulin Glargine (Insulin Glargine,Hum.Rec.Anlog 100 Unit/Ml 10 Ml Vial) 30 unit SUBCUT DAILY [facility] Last Admin: 06/10/22 08:13 Dose: 30 unit Documented By: NERI Insulin Human Lispro (Insulin Lispro 100 Unit/Ml 3 Ml Vial) 0 unit SUBCUT QIDACHS [facility]; Protocol Last Admin: 06/10/22 12:07 Dose: 5 unit Documented By: NERI Levothyroxine Sodium (Levothyroxine Sodium 25 Mcg Tablet) 25 mcg PO DAILY@0600 [facility] Last Admin: 06/10/22 05:09 Dose: 25 mcg Documented By: COREY Metoprolol Tartrate (Metoprolol Tartrate 25 Mg Tablet) 25 mg PO BID [facility]; Protocol Last Admin: 06/10/22 08:12 Dose: 25 mg Documented By: NERI Modafinil (Modafinil 100 Mg Tablet) 200 mg PO DAILY [facility] Last Admin: 06/10/22 08:12 Dose: 200 mg Documented By: NERI Omeprazole (Omeprazole 20 Mg/10 Ml Susp.Recon) 40 mg G-TUBE DAILY@0630 [facility] Last Admin: 06/10/22 05:10 Dose: 40 mg Documented By: COREY Pharmacy Consult (Consult Rx Perform Med Rec) 1 each MISCELLANE ONCE PRN PRN Reason: Consult order Pharmacy Consult (Consult Rx Vancomycin Dosing) 1 each MISCELLANE DAILY PRN PRN Reason: Consult order Sodium Chloride (0.9 % Sodium Chloride Flush 3 Ml Syringe) 3 ml IVFLUSH QSHIFT [facility] Last Admin: 06/10/22 08:37 Dose: Not Given Documented By: NERI Non-Admin Reason: IV Running Labs CBC & Chem 7: 06/10/22 06:21 06/10/22 06:21 Labs: Laboratory Results - last 24 hr 06/09/22 06/09/22 06/09/22 14:48 15:52 19:07 MCV MCH MCHC RDW Plt Count MPV Immature Gran % (Auto) Neut % (Auto) Lymph % (Auto) [facility] % (Auto) Eos % (Auto) Baso % (Auto) Lymph # (Auto) [facility] # (Auto) Eos # (Auto) Baso # (Auto) Abs Immat Gran (auto) Absolute Neuts (auto) Absolute Nucleated RBC Nucleated RBC % (auto) Anion Gap 11 L Estim Creat Clear Calc Estimated GFR POC Glucose 152 H Random Glucose Calcium Total Bilirubin AST ALT Alkaline Phosphatase Total Protein Albumin Random Vancomycin 13.6 L 06/09/22 06/10/22 06/10/22 19:15 06:21 06:21 MCV 96.5 MCH 30.6 MCHC 31.7 RDW 18.0 H Plt Count 95 L MPV 11.7 Immature Gran % (Auto) 0.4 Neut % (Auto) 69.0 Lymph % (Auto) 15.1 L [facility] % (Auto) 7.0 Eos % (Auto) 8.3 H Baso % (Auto) 0.2 Lymph # (Auto) 0.8 L [facility] # (Auto) 0.4 Eos # (Auto) 0.4 Baso # (Auto) 0.0 Abs Immat Gran (auto) 0.02 Absolute Neuts (auto) 3.7 Absolute Nucleated RBC 0.000 Nucleated RBC % (auto) 0.0 Anion Gap 14 Estim Creat Clear Calc 40.6 Estimated GFR 32 POC Glucose 141 H Random Glucose 275 H Calcium 7.3 L Total Bilirubin 1.3 H AST 32 ALT 8 Alkaline Phosphatase 75 Total Protein 6.0 L Albumin 2.6 L Random Vancomycin 06/10/22 06/10/22 07:20 11:33 MCV MCH MCHC RDW Plt Count MPV Immature Gran % (Auto) Neut % (Auto) Lymph % (Auto) [facility] % (Auto) Eos % (Auto) Baso % (Auto) Lymph # (Auto) [facility] # (Auto) Eos # (Auto) Baso # (Auto) Abs Immat Gran (auto) Absolute Neuts (auto) Absolute Nucleated RBC Nucleated RBC % (auto) Anion Gap Estim Creat Clear Calc Estimated GFR POC Glucose 244 H 222 H Random Glucose Calcium Total Bilirubin AST ALT Alkaline Phosphatase Total Protein Albumin Random Vancomycin Microbiology Microbiology Results: Microbiology 06/08/22 18:29 Urine Culture - Final Urine Catheterized - Ybarra Catheter No growth. 06/08/22 14:51 Blood Culture - Preliminary Blood - Venous No growth after 24 hours. 06/08/22 14:51 Blood Culture - Preliminary Blood - Venous No growth after 24 hours. Assessment and Plan (1) Right lower lobe pneumonia: Status: Acute (2) Toxic metabolic encephalopathy: Status: Acute (3) Dysphagia, oropharyngeal phase: Status: Acute (4) Type 2 diabetes mellitus with diabetic polyneuropathy: Status: Acute (5) CKD (chronic kidney disease) stage 3, GFR 30-59 ml/min: Status: Acute Plan 61/m with CKD3, HTN, schizophrenia, diastolic CHF frequent hospitalization was admitted on 05/17 for anasarca, exacerbation of CHF, encephalopathy and was being diuressed, he became increasingly more confused, agitated and agressive with some adjustment t Psych meds..on 05/19 he vomitted and aspirated resulting in PEA arrest and was intubated and admitted to ICU with prolonged course and was finally extubated and transfer back to [facility] on 05/28 with high concern of oral feeding; NG tube in place. Repeat swallow eval 06/06 continues to recommend NPO status 1. Fever(Query right lower lobe infiltrate) -blood cultures x2 negative times 24 hours; urine cultures negative -afebrile times 24 hours -adding vancomycin to Zosyn 2. Toxic metabolic encephalopathy (likely multi factorial related to hyperammonemia/advanced Parkinson's/under lines schizophrenic tendencies) -lactulose D seed secondary to increased diarrhea -Sinemet q.i.d. as ordered -treatment dictated by clinical course. Will avoid antipsychotics as possible. If agitated will try small dose of Seroquel 3. Severe oropharyngeal dysphagia -PEG placement on hold until patient is 48 hours afebrile -spoke with surgery will re-evaluate all 06/13/22 4. Diabetes type 2 -acceptable control on current therapies -continue sliding scale/Lantus as ordered -adjust as indicated 5. CKD -creatinine and returned to baseline -appreciate renal input -continue current therapies -follow renals/divalents - 6. Cirrhosis -continue lactulose as ordered -follow synthetic function Full Code DVT Prophylaxis: Heparin Requires ongoing hospitalization for treatment of pneumonia in the backdrop of mg p.o. status. Will also likely need PEG tube placement Quality Stroke Does the patient have a stroke diagnosis?: No VTE Prior VTE?: No VTE Risk Level:: Medical - moderate - high VTE Device Contraindication: Treatment Not Indicated VTE Drug Contraindication: N/A - Med Ordered
[2022-06-10 15:27] VITALS: BP 140/59; PULSE 104; RESP 14; TEMP 37.4; O2SAT 97
[2022-06-10 15:41] LABS: Glucose, Whole Blood 174 mg/dL (60-115)
[2022-06-10] MEDS: vancomycin HCL 1,000 MG in 0.9 % Sodium Chloride 250 ML 270 MG IV (17:30)
[2022-06-10 19:16] VITALS: BP 128/70; PULSE 71; RESP 16; TEMP 37.2; O2SAT 99
[2022-06-10 19:25] LABS: Glucose, Whole Blood 203 mg/dL (60-115)
[2022-06-10 23:25] VITALS: BP 149/69; PULSE 58; RESP 20; TEMP 36.7; O2SAT 97
[2022-06-11] MEDS: Dextrose 5 % 1,000 ML 100 ML IVCONT ×2 (03:37→14:04)
[2022-06-11 03:39] VITALS: BP 146/64; PULSE 64; RESP 20; TEMP 36.7; O2SAT 97
--- NOTE | 2022-06-11 05:33 | PM.EVENT ---
Event Note Date of Service: 06/11/22 Event Note: Patient pulled NG tube out. He is constantly pulling at his wires, oxygen, IV lines, and directable. Will reinsert NG tube, will place and softer restraints
[2022-06-11 06:24] LABS: MANUAL DIFF FLAG NO
[2022-06-11 06:28] LABS: Basophils Percent Auto 0.2 % (0-2); Eosinophils Absolute Auto 0.5 X10*3/uL (0.0-0.4); Eosinophils Percent Auto 5.7 % (0-4); Hematocrit 28.1 % (42.0-52.0); Imm Gran Abs Auto 0.03 X10*3/uL (0.00-0.03); Imm Gran Pct Auto 0.4 % (0.0-0.4); Lymphocytes Absolute Auto 0.9 X10*3/uL (1.2-4.9); Lymphocytes Percent Auto 10.9 % (20-40); Mean Corpuscular Hemoglobin 31.3 pg (27.0-33.0); Mean Corpuscular Volume 97.6 fL (80.0-98.0); Mean Platelet Volume 12.1 fL (9.4-12.4); Monocytes Absolute Auto 0.5 X10*3/uL (0.1-1.2); Monocytes Percent Auto 5.7 % (2-11); Neutrophils Absolute Auto 6.2 x10*3/uL (2.0-8.3); Neutrophils Percent Auto 77.1 % (45-73); Platelet Count 108 X10*3/uL (160-400); Red Blood Count 2.88 X10*6/uL (4.60-5.80); Red Cell Distribution Width 17.4 % (11.0-16.0); White Blood Count 8.1 X10*3/uL (4.8-10.8)
[2022-06-11 07:13] VITALS: BP 115/64; PULSE 75; RESP 16; TEMP 37.6; O2SAT 97
[2022-06-11 07:24] LABS: Alanine Aminotransferase < 6 U/L (0-40); Albumin Level 2.8 g/dL (3.5-5.0); Alkaline Phosphatase 83 U/L (39-117); Anion Gap 14 (12-20); Aspartate Amino Transferase 34 U/L (5-37); Bilirubin Total 1.5 mg/dL (0.0-1.0); Blood Urea Nitrogen 46 mg/dL (9-16); Calcium 7.6 mg/dL (8.4-10.2); Carbon Dioxide 20 mmol/L (22-29); Chloride 117 mmol/L (96-108); Creatinine Clr Calc Pharmacy 42.6; Estimated Glomerular Filt Rate 34; Glucose Random 206 mg/dL (60-115); Potassium 5.1 mmol/L (3.3-5.1); Sodium 146 mmol/L (135-145); Total Protein 6.5 g/dL (6.5-8.0)
[2022-06-11 07:25] LABS: Glucose, Whole Blood 173 mg/dL (60-115)
[2022-06-11] MEDS: Insulin Lispro 100 UNIT/ML 3 ML VIAL SUBCUT ×4 (08:20→23:19)
[2022-06-11] MEDS: Insulin Glargine,Hum.rec.anlog 100 UNIT/ML 10 ML VIAL 30 UNIT SUBCUT (08:20)
[2022-06-11] MEDS: modafiniL 100 MG TABLET 200 MG PO (09:39)
[2022-06-11] MEDS: Carbidopa/Levodopa 25/100 TABLET 1 TAB PO ×4 (09:39→23:17)
[2022-06-11] MEDS: amLODIPine Besylate 10 MG TABLET PO (09:39)
[2022-06-11] MEDS: Metoprolol Tartrate 25 MG TABLET PO ×2 (09:39→23:17)
[2022-06-11 11:42] VITALS: BP 122/70; PULSE 61; RESP 20; TEMP 37.2; O2SAT 95
[2022-06-11 11:50] LABS: Glucose, Whole Blood 166 mg/dL (60-115)
--- NOTE | 2022-06-11 12:42 | P.PNIM_ITS ---
Subjective Subjective Date of Service: 06/11/22 Interval History: F/u on post ICU stay following PEA arrest, respiratory failure likely aspiration, encephalopathy he is more awake, talking some, very deconditioned, pulled out NGT overnight but reinserted. Review of Systems Gen: +fever confused Physical Exam Vital Signs: Vital Signs: Last Vital Signs Temp 98.9 F 06/11/22 11:42 Pulse 61 06/11/22 11:42 Resp 20 06/11/22 11:42 BP 122/70 06/11/22 11:42 Pulse Ox 95 06/11/22 11:42 O2 Del Method 06/11/22 11:42 O2 Flow Rate 2 06/11/22 07:13 FiO2 25 05/26/22 09:00 BMI result Body Mass Index 28.4 Const: Other: General: alert, minimally conversing, no distress Resp:? rohan rhonchi, no accessory muscle use CVS: S1,S2,RRR--Swelling in all arms, 2 + leg edema GI: +BS, NT, no distention Skin: No rash,?He has a 1/2 x 3 cm stage 2 decubitus on his? coccyx, a 1 cm DTI on his medial right buttock, and a 3 x 3 DTI on his left buttock Neuro:? motor grossly intact,?He moves all 4 spontaneously. Psych: flat Objective Data Active Medications Acetaminophen (Acetaminophen Supp 650 Mg Supp.Rect) 650 mg [place] Q6H PRN PRN Reason: Fever >100.4 Last Admin: 06/08/22 11:49 Dose: 650 mg Documented By: LUIS Amlodipine Besylate (Amlodipine Besylate 10 Mg Tablet) 10 mg PO DAILY [facility]; Protocol Last Admin: 06/11/22 09:39 Dose: 10 mg Documented By: ELY Carbidopa/Levodopa (Carbidopa/Levodopa 25/100 Tablet) 1 tab PO QID [facility] Last Admin: 06/11/22 12:25 Dose: 1 tab Documented By: ELY Heparin Sodium (Porcine) (Heparin Sodium,Porcine 5,000 Unit/Ml Vial) 5,000 unit SUBCUT Q8H [facility] Last Admin: 06/11/22 07:02 Dose: Not Given Documented By: ALEX Non-Admin Reason: CXR Hydralazine HCl (Hydralazine Hcl 20 Mg/Ml Vial) 10 mg IVPUSH Q6H PRN; Protocol PRN Reason: SBP > 180 Last Admin: 06/09/22 03:35 Dose: 10 mg Documented By: MEKHI Dextrose (D5w) 1,000 mls @ 100 mls/hr IVCONT .Q10H [facility] Last Admin: 06/11/22 03:37 Dose: 100 mls/hr Documented By: ALEX Vancomycin HCl 1,000 mg/ (Sodium Chloride) 270 mls @ 270 mls/hr IV Q24H [facility] Last Infusion: 06/10/22 19:15 Dose: 0 mls/hr Documented By: NERI Insulin Glargine (Insulin Glargine,Hum.Rec.Anlog 100 Unit/Ml 10 Ml Vial) 30 unit SUBCUT DAILY [facility] Last Admin: 06/11/22 08:20 Dose: 30 unit Documented By: ELY Insulin Human Lispro (Insulin Lispro 100 Unit/Ml 3 Ml Vial) 0 unit SUBCUT QIDACHS [facility]; Protocol Last Admin: 06/11/22 12:25 Dose: 3 unit Documented By: ELY Levothyroxine Sodium (Levothyroxine Sodium 25 Mcg Tablet) 25 mcg PO DAILY@0600 [facility] Last Admin: 06/11/22 07:01 Dose: Not Given Documented By: ALEX Non-Ml Reason: CXR pending Metoprolol Tartrate (Metoprolol Tartrate 25 Mg Tablet) 25 mg PO BID [facility]; Protocol Last Admin: 06/11/22 09:39 Dose: 25 mg Documented By: ELY Modafinil (Modafinil 100 Mg Tablet) 200 mg PO DAILY [facility] Last Admin: 06/11/22 09:39 Dose: 200 mg Documented By: ELY Omeprazole (Omeprazole 20 Mg/10 Ml Susp.Recon) 40 mg G-TUBE DAILY@0630 [facility] Last Admin: 06/11/22 07:02 Dose: Not Given Documented By: ALEX Non-Ml Reason: CXR pending Pharmacy Consult (Consult Rx Perform Med Rec) 1 each MISCELLANE ONCE PRN PRN Reason: Consult order Pharmacy Consult (Consult Rx Vancomycin Dosing) 1 each MISCELLANE DAILY PRN PRN Reason: Consult order Sodium Chloride (0.9 % Sodium Chloride Flush 3 Ml Syringe) 3 ml IVFLUSH QSHIFT [facility] Last Admin: 06/11/22 08:21 Dose: Not Given Documented By: ELY Non-Admin Reason: IV Running Labs CBC & Chem 7: 06/11/22 06:11 06/11/22 06:11 Labs: Laboratory Results - last 24 hr 06/10/22 06/10/22 06/10/22 14:53 15:31 19:18 MCV MCH MCHC RDW Plt Count MPV Immature Gran % (Auto) Neut % (Auto) Lymph % (Auto) [place] % (Auto) Eos % (Auto) Baso % (Auto) Lymph # (Auto) [place] # (Auto) Eos # (Auto) Baso # (Auto) Abs Immat Gran (auto) Absolute Neuts (auto) Absolute Nucleated RBC Nucleated RBC % (auto) Anion Gap Estim Creat Clear Calc Estimated GFR POC Glucose 174 H 203 H Random Glucose Calcium Total Bilirubin AST ALT Alkaline Phosphatase Total Protein Albumin Random Vancomycin 17.0 06/11/22 06/11/22 06/11/22 06:11 06:11 07:17 MCV 97.6 MCH 31.3 MCHC 32.0 RDW 17.4 H Plt Count 108 L MPV 12.1 Immature Gran % (Auto) 0.4 Neut % (Auto) 77.1 H Lymph % (Auto) 10.9 L [place] % (Auto) 5.7 Eos % (Auto) 5.7 H Baso % (Auto) 0.2 Lymph # (Auto) 0.9 L [place] # (Auto) 0.5 Eos # (Auto) 0.5 H Baso # (Auto) 0.0 Abs Immat Gran (auto) 0.03 Absolute Neuts (auto) 6.2 Absolute Nucleated RBC 0.000 Nucleated RBC % (auto) 0.0 Anion Gap 14 Estim Creat Clear Calc 42.6 Estimated GFR 34 POC Glucose 173 H Random Glucose 206 H Calcium 7.6 L Total Bilirubin 1.5 H AST 34 ALT < 6 Alkaline Phosphatase 83 Total Protein 6.5 Albumin 2.8 L Random Vancomycin 06/11/22 11:43 MCV MCH MCHC RDW Plt Count MPV Immature Gran % (Auto) Neut % (Auto) Lymph % (Auto) [place] % (Auto) Eos % (Auto) Baso % (Auto) Lymph # (Auto) [place] # (Auto) Eos # (Auto) Baso # (Auto) Abs Immat Gran (auto) Absolute Neuts (auto) Absolute Nucleated RBC Nucleated RBC % (auto) Anion Gap Estim Creat Clear Calc Estimated GFR POC Glucose 166 H Random Glucose Calcium Total Bilirubin AST ALT Alkaline Phosphatase Total Protein Albumin Random Vancomycin Microbiology Microbiology Results: Microbiology 06/08/22 14:51 Blood Culture - Preliminary Blood - Venous No growth after 48 hours. 06/08/22 14:51 Blood Culture - Preliminary Blood - Venous No growth after 48 hours. 06/08/22 18:29 Urine Culture - Final Urine Catheterized - Ybarra Catheter No growth. Assessment and Plan (1) Right lower lobe pneumonia: Status: Acute (2) Toxic metabolic encephalopathy: Status: Acute (3) Dysphagia, oropharyngeal phase: Status: Acute (4) Type 2 diabetes mellitus with diabetic polyneuropathy: Status: Acute (5) CKD (chronic kidney disease) stage 3, GFR 30-59 ml/min: Status: Acute Plan 61/m with CKD3, HTN, schizophrenia, diastolic CHF frequent hospitalization was admitted on 05/17 for anasarca, exacerbation of CHF, encephalopathy and was being diuressed, he became increasingly more confused, agitated and agressive with some adjustment t Psych meds..on 05/19 he vomitted and aspirated resulting in PEA arrest and was intubated and admitted to ICU with prolonged course and was finally extubated and transfer back to [facility] on 05/28 with high concern of oral feeding; NG tube in place. Repeat swallow eval 06/06 continues to recommend NPO status 1. Fever on 06/08 abd ? related to pneumonia -blood cultures x2 negative times48 hours; urine cultures negative -afebrile since 06/09 -continue vancomycin empirically for now 2. Toxic metabolic encephalopathy (likely multi factorial related to hyperammonemia/advanced Parkinson's/under lines schizophrenic tendencies, possible anoxic brain injury) -continue lactulose -Sinemet q.i.d. as ordered for parkinson -treatment dictated by clinical course. Will avoid antipsychotics as possible. If agitated will try small dose of Seroquel 3. Severe oropharyngeal dysphagia -PEG placement on hold until patient is 48 hours afebrile, so likely early next week 4. Diabetes type 2 -acceptable control on current therapies -continue sliding scale/Lantus as ordered -adjust as indicated 5. CKD--with ERNST, creatine back to baseline 6. Hypernatremia--146, D5w and water throught tube feed and follow BMP - 6. Cirrhosis -continue lactulose as ordered -follow synthetic function Full Code DVT Prophylaxis: Heparin Requires ongoing hospitalization for treatment of pneumonia in the backdrop of mg p.o. status. Will also likely need PEG tube placement Quality Stroke Does the patient have a stroke diagnosis?: No VTE Prior VTE?: No VTE Risk Level:: Medical - moderate - high VTE Device Contraindication: Treatment Not Indicated VTE Drug Contraindication: N/A - Med Ordered
[2022-06-11] MEDS: Heparin Sodium,Porcine 5,000 UNIT/ML VIAL 5000 UNIT SUBCUT ×2 (14:15→23:17)
[2022-06-11] MEDS: Piperacillin Sodium/Tazobactam 4.5 GM in 0.9 % Sodium Chloride 100 ML IV ×2 (14:15→23:18)
[2022-06-11 15:43] VITALS: BP 142/65; PULSE 65; RESP 20; TEMP 37.3; O2SAT 95
[2022-06-11 15:54] LABS: Vancomycin Random 18.2 mcg/mL (15-20)
--- NOTE | 2022-06-11 15:54 | P.PNNP_ITS ---
Subjective Subjective Date of Service: 06/11/22 Interval history: Events noted. All recent data reviewed Physical Exam Vital Signs: Vital Signs: Last Vital Signs Temp 99.2 F 06/11/22 15:43 Pulse 65 06/11/22 15:43 Resp 20 06/11/22 15:43 BP 142/65 H 06/11/22 15:43 Pulse Ox 95 06/11/22 15:43 O2 Del Method 06/11/22 15:43 O2 Flow Rate 2 06/11/22 07:13 FiO2 25 05/26/22 09:00 BMI result Body Mass Index 28.4 Const: General: no acute distress Neck: Neck: Yes supple Resp: Auscultation: rhonchi and diminished lung sounds Cardio: Other: Edema Rate: regular rate GI: Other: NG tube + Palpation (GI): Soft to palpation Neuro: General: moves all extremities Objective Data Labs CBC & Chem 7: 06/11/22 06:11 06/11/22 06:11 Labs: Laboratory Results - last 24 hr 06/10/22 06/11/22 06/11/22 19:18 06:11 06:11 WBC 8.1 RBC 2.88 L Hgb 9.0 L Hct 28.1 L MCV 97.6 MCH 31.3 MCHC 32.0 RDW 17.4 H Plt Count 108 L MPV 12.1 Immature Gran % (Auto) 0.4 Neut % (Auto) 77.1 H Lymph % (Auto) 10.9 L [place] % (Auto) 5.7 Eos % (Auto) 5.7 H Baso % (Auto) 0.2 Lymph # (Auto) 0.9 L [place] # (Auto) 0.5 Eos # (Auto) 0.5 H Baso # (Auto) 0.0 Abs Immat Gran (auto) 0.03 Absolute Neuts (auto) 6.2 Absolute Nucleated RBC 0.000 Nucleated RBC % (auto) 0.0 Sodium 146 H Potassium 5.1 Chloride 117 H Carbon Dioxide 20 L Anion Gap 14 BUN 46 H Creatinine 2.00 H Estim Creat Clear Calc 42.6 Estimated GFR 34 POC Glucose 203 H Random Glucose 206 H Calcium 7.6 L Total Bilirubin 1.5 H AST 34 ALT < 6 Alkaline Phosphatase 83 Total Protein 6.5 Albumin 2.8 L 06/11/22 06/11/22 07:17 11:43 WBC RBC Hgb Hct MCV MCH MCHC RDW Plt Count MPV Immature Gran % (Auto) Neut % (Auto) Lymph % (Auto) [place] % (Auto) Eos % (Auto) Baso % (Auto) Lymph # (Auto) [place] # (Auto) Eos # (Auto) Baso # (Auto) Abs Immat Gran (auto) Absolute Neuts (auto) Absolute Nucleated RBC Nucleated RBC % (auto) Sodium Potassium Chloride Carbon Dioxide Anion Gap BUN Creatinine Estim Creat Clear Calc Estimated GFR POC Glucose 173 H 166 H Random Glucose Calcium Total Bilirubin AST ALT Alkaline Phosphatase Total Protein Albumin Microbiology Microbiology Results: Microbiology 06/08/22 14:51 Blood - Venous Blood Culture - Preliminary No growth after 48 hours. 06/08/22 14:51 Blood - Venous Blood Culture - Preliminary No growth after 48 hours. 06/08/22 18:29 Urine Catheterized - Ybarra Catheter Urine Culture - Final No growth. 05/23/22 14:47 Sputum - Suctioned Gram Stain - Final 05/23/22 14:47 Sputum - Suctioned Sputum Culture - Final Klebsiella pneumoniae Yeast 05/20/22 00:48 Blood - Venous Blood Culture - Final No growth after 5 days. 05/20/22 00:48 Blood - Venous Blood Culture - Final No growth after 5 days. 05/17/22 17:00 Blood - Venous Blood Culture - Final No growth after 5 days. 05/17/22 16:10 Blood - Venous Blood Culture - Final No growth after 5 days. Procedures Date of Service Date of Service: 06/11/22 Assessment & Plan Assessment and plan (1) Acute kidney injury superimposed on chronic kidney disease: Status: Acute Assessment and Plan: Had ERNST due to tubular injury Has CKD 4 @ baseline with? Scr 2.5-3.0 Hypernatremia; Needs continued free water replacement Concur with rest of current management Time Spent With Patient Time: Total time spent is greater than 50% in coordination of care (as documented) at patient's floor/unit and/or counseling patient: Progress Note: Quality Stroke Does the patient have a stroke diagnosis?: No
--- NOTE | 2022-06-11 16:08 | HE.PHANOTE ---
Decrease vanco to 750 mg q24h
[2022-06-11 16:52] LABS: Glucose, Whole Blood 196 mg/dL (60-115)
[2022-06-11] MEDS: vancomycin HCL 750 MG in 0.9 % Sodium Chloride 250 ML 265 MG IV (17:28)
[2022-06-11 20:00] VITALS: BP 127/79; PULSE 67; RESP 20; TEMP 37.1; O2SAT 98
[2022-06-11 21:48] LABS: Glucose, Whole Blood 193 mg/dL (60-115)
[2022-06-12] VITALS (7 sets, daily range): BP systolic 126–154; BP diastolic 52–94; PULSE 60–70; RESP 18–30; TEMP 36.7–37.1; O2SAT 93–100; BMI 30.7
[2022-06-12] MEDS: Dextrose 5 % 1,000 ML 100 ML IVCONT (05:02)
[2022-06-12] MEDS: Piperacillin Sodium/Tazobactam 4.5 GM in 0.9 % Sodium Chloride 100 ML IV ×3 (06:35→18:40)
[2022-06-12] MEDS: Heparin Sodium,Porcine 5,000 UNIT/ML VIAL 5000 UNIT SUBCUT ×3 (06:37→21:57)
[2022-06-12] MEDS: Levothyroxine Sodium 25 MCG TABLET PO (06:39)
[2022-06-12 06:48] LABS: MANUAL DIFF FLAG NO
[2022-06-12 06:51] LABS: Basophils Percent Auto 0.3 % (0-2); Eosinophils Absolute Auto 0.4 X10*3/uL (0.0-0.4); Eosinophils Percent Auto 6.4 % (0-4); Hematocrit 23.1 % (42.0-52.0); Hemoglobin 7.6 g/dl (14.0-18.0); Imm Gran Abs Auto 0.02 X10*3/uL (0.00-0.03); Imm Gran Pct Auto 0.3 % (0.0-0.4); Lymphocytes Absolute Auto 0.9 X10*3/uL (1.2-4.9); Lymphocytes Percent Auto 13.5 % (20-40); Mean Corpuscular HGB Conc 32.9 g/dl (31.0-36.0); Mean Corpuscular Hemoglobin 31.5 pg (27.0-33.0); Mean Corpuscular Volume 95.9 fL (80.0-98.0); Mean Platelet Volume 11.6 fL (9.4-12.4); Monocytes Absolute Auto 0.4 X10*3/uL (0.1-1.2); Monocytes Percent Auto 5.8 % (2-11); Neutrophils Absolute Auto 4.9 x10*3/uL (2.0-8.3); Neutrophils Percent Auto 73.7 % (45-73); Platelet Count 112 X10*3/uL (160-400); Red Blood Count 2.41 X10*6/uL (4.60-5.80); Red Cell Distribution Width 17.3 % (11.0-16.0); White Blood Count 6.7 X10*3/uL (4.8-10.8)
[2022-06-12 07:26] LABS: Alanine Aminotransferase < 6 U/L (0-40); Albumin Level 2.6 g/dL (3.5-5.0); Alkaline Phosphatase 81 U/L (39-117); Anion Gap 13 (12-20); Aspartate Amino Transferase 31 U/L (5-37); Bilirubin Total 1.4 mg/dL (0.0-1.0); Blood Urea Nitrogen 46 mg/dL (9-16); Calcium 7.3 mg/dL (8.4-10.2); Carbon Dioxide 19 mmol/L (22-29); Chloride 112 mmol/L (96-108); Estimated Glomerular Filt Rate 35; Glucose Random 195 mg/dL (60-115); Potassium 4.5 mmol/L (3.3-5.1); Sodium 139 mmol/L (135-145); Total Protein 6.1 g/dL (6.5-8.0)
[2022-06-12 07:39] LABS: Glucose, Whole Blood 170 mg/dL (60-115)
--- NOTE | 2022-06-12 09:13 | P.PNIM_ITS ---
Subjective Subjective Date of Service: 06/12/22 Interval History: F/u on post ICU stay following PEA arrest, respiratory failure likely aspiration pna, encephalopathy he is more awake, talking, he remains on feed via NGT, PEG planned early this week Review of Systems no fever, no sob Physical Exam Vital Signs: Vital Signs: Last Vital Signs Temp 98.3 F 06/12/22 08:00 Pulse 69 06/12/22 08:00 Resp 20 06/12/22 08:00 BP 142/58 H 06/12/22 08:00 Pulse Ox 93 06/12/22 08:00 O2 Del Method 06/12/22 08:00 O2 Flow Rate 2 06/11/22 07:13 FiO2 25 05/26/22 09:00 BMI result Body Mass Index 30.7 Const: Other: General: AO X 2, no acute distress Resp: rohan rhonchi CVS: S1,S2,RRR, 1-2+ edema in legs GI: +BS, NT, no distention Skin: No rash Neuro: motor grossly intact Psych: appropriate affect Objective Data Active Medications Acetaminophen (Acetaminophen Supp 650 Mg Supp.Rect) [address] Q6H PRN PRN Reason: Fever >100.4 Last Admin: 06/08/22 11:49 Dose: 650 mg Documented By: LUIS Amlodipine Besylate (Amlodipine Besylate 10 Mg Tablet) 10 mg PO DAILY [facility]; Protocol Last Admin: 06/11/22 09:39 Dose: 10 mg Documented By: ELY Carbidopa/Levodopa (Carbidopa/Levodopa 25/100 Tablet) 1 tab PO QID [facility] Last Admin: 06/11/22 23:17 Dose: 1 tab Documented By: ALEX Heparin Sodium (Porcine) (Heparin Sodium,Porcine 5,000 Unit/Ml Vial) 5,000 unit SUBCUT Q8H [facility] Last Admin: 06/12/22 06:37 Dose: 5,000 unit Documented By: ALEX Hydralazine HCl (Hydralazine Hcl 20 Mg/Ml Vial) 10 mg IVPUSH Q6H PRN; Protocol PRN Reason: SBP > 180 Last Admin: 06/09/22 03:35 Dose: 10 mg Documented By: MEKHI Dextrose (D5w) 1,000 mls @ 100 mls/hr IVCONT .Q10H [facility] Last Admin: 06/12/22 05:02 Dose: 100 mls/hr Documented By: ALEX Piperacillin Sod/Tazobactam (Sod 4.5 gm/ Sodium Chloride) 100 mls @ 200 mls/hr IV Q6H [facility] Last Infusion: 06/12/22 07:32 Dose: 0 mls/hr Documented By: KENDRA Vancomycin HCl 750 mg/ Sodium (Chloride) 265 mls @ 265 mls/hr IV Q24H [facility] Last Infusion: 06/12/22 00:09 Dose: 0 mls/hr Documented By: ALEX Insulin Glargine (Insulin Glargine,Hum.Rec.Anlog 100 Unit/Ml 10 Ml Vial) 30 unit SUBCUT DAILY [facility] Last Admin: 06/11/22 08:20 Dose: 30 unit Documented By: ELY Insulin Human Lispro (Insulin Lispro 100 Unit/Ml 3 Ml Vial) 0 unit SUBCUT QIDACHS [facility]; Protocol Last Admin: 06/11/22 23:19 Dose: 3 unit Documented By: ALEX Levothyroxine Sodium (Levothyroxine Sodium 25 Mcg Tablet) 25 mcg PO DAILY@0600 [facility] Last Admin: 06/12/22 06:39 Dose: 25 mcg Documented By: ALEX Metoprolol Tartrate (Metoprolol Tartrate 25 Mg Tablet) 25 mg PO BID [facility]; Protocol Last Admin: 06/11/22 23:17 Dose: 25 mg Documented By: ALEX Modafinil (Modafinil 100 Mg Tablet) 200 mg PO DAILY [facility] Last Admin: 06/11/22 09:39 Dose: 200 mg Documented By: ELY Omeprazole (Omeprazole 20 Mg/10 Ml Susp.Recon) 40 mg G-TUBE DAILY@0630 [facility] Last Admin: 06/12/22 06:39 Dose: 40 mg Documented By: ALEX Pharmacy Consult (Consult Rx Perform Med Rec) 1 each MISCELLANE ONCE PRN PRN Reason: Consult order Pharmacy Consult (Consult Rx Vancomycin Dosing) 1 each MISCELLANE DAILY PRN PRN Reason: Consult order Sodium Chloride (0.9 % Sodium Chloride Flush 3 Ml Syringe) 3 ml IVFLUSH QSHIFT [facility] Last Admin: 07/31/22 07:43 Dose: Not Given Documented By: KENDRA Non-Admin Reason: IV Running Labs CBC & Chem 7: 06/12/22 06:23 06/12/22 06:23 Labs: Laboratory Results - last 24 hr 06/11/22 06/11/22 06/11/22 11:43 15:14 16:48 MCV MCH MCHC RDW Plt Count MPV Immature Gran % (Auto) Neut % (Auto) Lymph % (Auto) [place] % (Auto) Eos % (Auto) Baso % (Auto) Lymph # (Auto) [place] # (Auto) Eos # (Auto) Baso # (Auto) Abs Immat Gran (auto) Absolute Neuts (auto) Absolute Nucleated RBC Nucleated RBC % (auto) Anion Gap Estim Creat Clear Calc Estimated GFR POC Glucose 166 H 196 H Random Glucose Calcium Total Bilirubin AST ALT Alkaline Phosphatase Total Protein Albumin Random Vancomycin 18.2 06/11/22 06/12/22 06/12/22 21:44 06:23 06:23 MCV 95.9 MCH 31.5 MCHC 32.9 RDW 17.3 H Plt Count 112 L MPV 11.6 Immature Gran % (Auto) 0.3 Neut % (Auto) 73.7 H Lymph % (Auto) 13.5 L [place] % (Auto) 5.8 Eos % (Auto) 6.4 H Baso % (Auto) 0.3 Lymph # (Auto) 0.9 L [place] # (Auto) 0.4 Eos # (Auto) 0.4 Baso # (Auto) 0.0 Abs Immat Gran (auto) 0.02 Absolute Neuts (auto) 4.9 Absolute Nucleated RBC 0.000 Nucleated RBC % (auto) 0.0 Anion Gap 13 Estim Creat Clear Calc 45.0 Estimated GFR 35 POC Glucose 193 H Random Glucose 195 H Calcium 7.3 L Total Bilirubin 1.4 H AST 31 ALT < 6 Alkaline Phosphatase 81 Total Protein 6.1 L Albumin 2.6 L Random Vancomycin 06/12/22 07:12 MCV MCH MCHC RDW Plt Count MPV Immature Gran % (Auto) Neut % (Auto) Lymph % (Auto) [place] % (Auto) Eos % (Auto) Baso % (Auto) Lymph # (Auto) [place] # (Auto) Eos # (Auto) Baso # (Auto) Abs Immat Gran (auto) Absolute Neuts (auto) Absolute Nucleated RBC Nucleated RBC % (auto) Anion Gap Estim Creat Clear Calc Estimated GFR POC Glucose 170 H Random Glucose Calcium Total Bilirubin AST ALT Alkaline Phosphatase Total Protein Albumin Random Vancomycin Assessment and Plan (1) Right lower lobe pneumonia: Status: Acute (2) Toxic metabolic encephalopathy: Status: Acute (3) Dysphagia, oropharyngeal phase: Status: Acute (4) Type 2 diabetes mellitus with diabetic polyneuropathy: Status: Acute (5) CKD (chronic kidney disease) stage 3, GFR 30-59 ml/min: Status: Acute Plan 61/m with CKD3, HTN, schizophrenia, diastolic CHF frequent hospitalization was admitted on 05/17 for anasarca, exacerbation of CHF, encephalopathy and was being diuressed, he became increasingly more confused, agitated and agressive with some adjustment t Psych meds..on 05/19 he vomitted and aspirated resulting in PEA arrest and was intubated and admitted to ICU with prolonged course and was finally extubated and transfer back to [facility] on 05/28 with high concern of oral feeding; NG tube in place. Repeat swallow eval 06/06 continues to recommend NPO status 1. Fever on 06/08 abd ? related to pneumonia -blood cultures x2 negative urine cultures negative -afebrile since 06/09 -continue vancomycin and Zosyn empirically and ghcnage to PO Augmentin after PEG 2. Toxic metabolic encephalopathy (likely multi factorial related to hyperammonemia/advanced Parkinson's/under lines schizophrenic tendencies, possible anoxic brain injury) -continue lactulose -Sinemet q.i.d. as ordered for parkinson - Will avoid antipsychotics as muchas possible. If agitated will try small dos e of Seroquel 3. Severe oropharyngeal dysphagia -PEG placement on hold until patient is 48 hours afebrile, so likely early next week (Monday or monday according to Zia) 4. Diabetes type 2 -acceptable control on current therapies -continue sliding scale/Lantus as ordered -adjust as indicated 5. CKD--with ERNST, creatine back to baseline 6. Hypernatremia--139, D5w and water through tube feed and follow BMP - 6. Cirrhosis -continue lactulose as ordered -follow synthetic function Full Code DVT Prophylaxis: Heparin Requires ongoing hospitalization for treatment of pneumonia in the backdrop of mg p.o. status and need for PEG tube before dc Quality Stroke Does the patient have a stroke diagnosis?: No VTE Prior VTE?: No VTE Risk Level:: Medical - moderate - high VTE Device Contraindication: Treatment Not Indicated VTE Drug Contraindication: N/A - Med Ordered
[2022-06-12] MEDS: Insulin Glargine,Hum.rec.anlog 100 UNIT/ML 10 ML VIAL 30 UNIT SUBCUT (09:34)
[2022-06-12] MEDS: Insulin Lispro 100 UNIT/ML 3 ML VIAL SUBCUT ×4 (09:35→21:57)
[2022-06-12] MEDS: modafiniL 100 MG TABLET 200 MG PO (09:35)
[2022-06-12] MEDS: amLODIPine Besylate 10 MG TABLET PO (09:36)
[2022-06-12] MEDS: Carbidopa/Levodopa 25/100 TABLET 1 TAB PO ×4 (09:36→21:57)
[2022-06-12] MEDS: Metoprolol Tartrate 25 MG TABLET PO ×2 (09:36→21:57)
[2022-06-12 11:13] LABS: Glucose, Whole Blood 191 mg/dL (60-115)
--- NOTE | 2022-06-12 15:11 | PM.PNNEP ---
Subjective Subjective Date of Service: 06/12/22 Interval history: PEG planned early this week Physical Exam Vital Signs: Vital Signs: Last Vital Signs Temp 98.0 F 06/12/22 14:56 Pulse 63 06/12/22 14:56 Resp 18 06/12/22 14:56 BP 137/67 06/12/22 14:56 Pulse Ox 95 06/12/22 14:56 O2 Del Method 06/12/22 14:56 O2 Flow Rate 2 06/11/22 07:13 FiO2 25 05/26/22 09:00 BMI result Body Mass Index 30.7 Const: General: no acute distress Neck: Neck: Yes supple Resp: Auscultation: diminished lung sounds Cardio: Rate: regular rate GI: Palpation (GI): Soft to palpation Neuro: General: moves all extremities Objective Data Labs CBC & Chem 7: 06/12/22 06:23 06/12/22 06:23 Labs: Laboratory Results - last 24 hr 06/11/22 06/11/22 06/11/22 15:14 16:48 21:44 WBC RBC Hgb Hct MCV MCH MCHC RDW Plt Count MPV Immature Gran % (Auto) Neut % (Auto) Lymph % (Auto) [place] % (Auto) Eos % (Auto) Baso % (Auto) Lymph # (Auto) [place] # (Auto) Eos # (Auto) Baso # (Auto) Abs Immat Gran (auto) Absolute Neuts (auto) Absolute Nucleated RBC Nucleated RBC % (auto) Sodium Potassium Chloride Carbon Dioxide Anion Gap BUN Creatinine Estim Creat Clear Calc Estimated GFR POC Glucose 196 H 193 H Random Glucose Calcium Total Bilirubin AST ALT Alkaline Phosphatase Total Protein Albumin Random Vancomycin 18.2 06/12/22 06/12/22 06/12/22 06:23 06:23 07:12 WBC 6.7 RBC 2.41 L Hgb 7.6 L Hct 23.1 L MCV 95.9 MCH 31.5 MCHC 32.9 RDW 17.3 H Plt Count 112 L MPV 11.6 Immature Gran % (Auto) 0.3 Neut % (Auto) 73.7 H Lymph % (Auto) 13.5 L [place] % (Auto) 5.8 Eos % (Auto) 6.4 H Baso % (Auto) 0.3 Lymph # (Auto) 0.9 L [place] # (Auto) 0.4 Eos # (Auto) 0.4 Baso # (Auto) 0.0 Abs Immat Gran (auto) 0.02 Absolute Neuts (auto) 4.9 Absolute Nucleated RBC 0.000 Nucleated RBC % (auto) 0.0 Sodium 139 Potassium 4.5 Chloride 112 H Carbon Dioxide 19 L Anion Gap 13 BUN 46 H Creatinine 1.96 H Estim Creat Clear Calc 45.0 Estimated GFR 35 POC Glucose 170 H Random Glucose 195 H Calcium 7.3 L Total Bilirubin 1.4 H AST 31 ALT < 6 Alkaline Phosphatase 81 Total Protein 6.1 L Albumin 2.6 L Random Vancomycin 06/12/22 11:00 WBC RBC Hgb Hct MCV MCH MCHC RDW Plt Count MPV Immature Gran % (Auto) Neut % (Auto) Lymph % (Auto) [place] % (Auto) Eos % (Auto) Baso % (Auto) Lymph # (Auto) [place] # (Auto) Eos # (Auto) Baso # (Auto) Abs Immat Gran (auto) Absolute Neuts (auto) Absolute Nucleated RBC Nucleated RBC % (auto) Sodium Potassium Chloride Carbon Dioxide Anion Gap BUN Creatinine Estim Creat Clear Calc Estimated GFR POC Glucose 191 H Random Glucose Calcium Total Bilirubin AST ALT Alkaline Phosphatase Total Protein Albumin Random Vancomycin Microbiology Microbiology Results: Microbiology 06/08/22 14:51 Blood - Venous Blood Culture - Preliminary No growth after 48 hours. 06/08/22 14:51 Blood - Venous Blood Culture - Preliminary No growth after 48 hours. 06/08/22 18:29 Urine Catheterized - Ybarra Catheter Urine Culture - Final No growth. 05/23/22 14:47 Sputum - Suctioned Gram Stain - Final 05/23/22 14:47 Sputum - Suctioned Sputum Culture - Final Klebsiella pneumoniae Yeast 05/20/22 00:48 Blood - Venous Blood Culture - Final No growth after 5 days. 05/20/22 00:48 Blood - Venous Blood Culture - Final No growth after 5 days. 05/17/22 17:00 Blood - Venous Blood Culture - Final No growth after 5 days. 05/17/22 16:10 Blood - Venous Blood Culture - Final No growth after 5 days. Procedures Date of Service Date of Service: 06/12/22 Assessment & Plan Assessment and plan (1) Acute kidney injury superimposed on chronic kidney disease: Status: Acute Assessment and Plan: Had ERNST due to tubular injury Has CKD 4 @ baseline with? Scr 2.5-3.0 Procrit 16800 U once a week Concur with rest of current management Time Spent With Patient Time: Total time spent is greater than 50% in coordination of care (as documented) at patient's floor/unit and/or counseling patient: Progress Note: Quality Stroke Does the patient have a stroke diagnosis?: No
[2022-06-12 16:12] LABS: Glucose, Whole Blood 196 mg/dL (60-115)
[2022-06-12] MEDS: vancomycin HCL 750 MG in 0.9 % Sodium Chloride 250 ML 265 MG IV (17:25)
[2022-06-12 21:29] LABS: Glucose, Whole Blood 181 mg/dL (60-115)
[2022-06-12] MEDS: 0.9 % Sodium Chloride Flush 3 ML SYRINGE IVFLUSH (21:58)
--- NOTE | 2022-06-13 | ECG_ITS ---
Test Reason : cp Blood Pressure : / mmHG Vent. Rate : 061 BPM Atrial Rate : 061 BPM P-R Int : 160 ms QRS Dur : 102 ms QT Int : 468 ms P-R-T Axes : 007 -60 005 degrees QTc Int : 471 ms Poor data quality Normal sinus rhythm Incomplete right bundle branch block Left anterior fascicular block Nonspecific T wave abnormality Abnormal ECG When compared with ECG of 07-JUN-2022 12:52, Poor data quality in current ECG precludes serial comparison Referred By: Angelica Eckert Electronically Signed By:GERSON SNYDER MD
[2022-06-13] MEDS: Piperacillin Sodium/Tazobactam 4.5 GM in 0.9 % Sodium Chloride 100 ML IV ×4 (03:09→20:48)
[2022-06-13 03:55] VITALS: BP 152/76; PULSE 61; TEMP 36.9; O2SAT 99
[2022-06-13 06:00] VITALS: BMI 32.8
[2022-06-13] MEDS: Heparin Sodium,Porcine 5,000 UNIT/ML VIAL 5000 UNIT SUBCUT ×3 (06:08→22:22)
[2022-06-13] MEDS: Levothyroxine Sodium 25 MCG TABLET PO (06:09)
[2022-06-13 06:48] LABS: Anion Gap 14 (12-20); Blood Urea Nitrogen 44 mg/dL (9-16); Calcium 7.5 mg/dL (8.4-10.2); Carbon Dioxide 19 mmol/L (22-29); Chloride 111 mmol/L (96-108); Creatinine Clr Calc Pharmacy 47.8; Estimated Glomerular Filt Rate 36; Glucose Random 108 mg/dL (60-115); Magnesium 2.6 mg/dL (1.6-2.6); Potassium 4.6 mmol/L (3.3-5.1); Sodium 139 mmol/L (135-145)
[2022-06-13 08:00] VITALS: BP 163/69; PULSE 73; RESP 18; TEMP 37.2; O2SAT 94
[2022-06-13 08:19] LABS: Glucose, Whole Blood 115 mg/dL (60-115)
[2022-06-13] MEDS: modafiniL 100 MG TABLET 200 MG PO (10:15)
[2022-06-13] MEDS: Insulin Glargine,Hum.rec.anlog 100 UNIT/ML 10 ML VIAL 30 UNIT SUBCUT (10:15)
[2022-06-13] MEDS: Carbidopa/Levodopa 25/100 TABLET 1 TAB PO (10:15)
[2022-06-13] MEDS: amLODIPine Besylate 10 MG TABLET PO (10:15)
[2022-06-13] MEDS: Metoprolol Tartrate 25 MG TABLET PO (10:15)
[2022-06-13] MEDS: 0.9 % Sodium Chloride Flush 3 ML SYRINGE IVFLUSH ×2 (10:16→18:11)
--- NOTE | 2022-06-13 10:54 | P.PNCA_ITS ---
Subjective Subjective Date of Service: 06/13/22 Principal diagnosis: Question ventricular arrhythmias Interval history: I was called to see the patient based on cardiac telemetry finding of suspected ventricular arrhythmias. I reviewed all the strips associated with so-called ventricular arrhythmias. Patient was awake during this time. The strips all consistent with artifact with underlying sinus rhythm Review of Systems Review of Systems Yes Unobtainable due to mental status Physical Exam Vital Signs: Last Vital Signs Temp 98.9 F 06/13/22 08:00 Pulse 73 06/13/22 08:00 Resp 18 06/13/22 08:00 BP 163/69 H 06/13/22 08:00 Pulse Ox 94 06/13/22 08:00 O2 Del Method 06/13/22 08:00 O2 Flow Rate 2 06/13/22 03:55 FiO2 25 05/26/22 09:00 BMI result Body Mass Index 32.8 Const Other: General: AO X 2, no acute distress Resp: rohan rhonchi CVS: S1,S2,RRR, 1-2+ edema in legs GI: +BS, NT, no distention Skin: No rash Neuro: motor grossly intact Psych: appropriate affect Objective Labs and Meds Result diagrams: 06/12/22 06:23 06/13/22 06:07 Lab results: Laboratory Results - last 24 hr 06/12/22 06/12/22 06/12/22 11:00 16:00 21:26 Sodium Potassium Chloride Carbon Dioxide Anion Gap BUN Creatinine Estim Creat Clear Calc Estimated GFR POC Glucose 191 H 196 H 181 H Random Glucose Calcium Magnesium 06/13/22 06/13/22 06:07 08:09 Sodium 139 Potassium 4.6 Chloride 111 H Carbon Dioxide 19 L Anion Gap 14 BUN 44 H Creatinine 1.91 H Estim Creat Clear Calc 47.8 Estimated GFR 36 POC Glucose 115 Random Glucose 108 D Calcium 7.5 L Magnesium 2.6 Imaging Radiologist's impression: Impressions Chest X-Ray 06/12/22 23:30 IMPRESSION: * Nasogastric tube in stomach. * Persistent bilateral patchy and hazy airspace opacities could be compatible with edema or multifocal pneumonia/pneumonitis Progress Note: A&P Assessment and plan (1) Ventricular arrhythmia: Status: Acute Assessment and Plan: Reported abnormal telemetry with ventricular arrhythmias is an artifactual finding. There is clear underlying sinus rhythm. No further treatment is required for this. Please take care in avoiding artifacts in the future. Not sure if patient continues to require cardiac monitoring at this point time. Continue supportive care for his underlying medical condition. No further tayler p from cardiac perspective is required. Time Spent With Patient Time: Total time spent is greater than 50% in coordination of care (as documented) at patient's floor/unit and/or counseling patient: Progress Note: Quality Stroke Does the patient have a stroke diagnosis?: No Procedures Date of Service Date of Service: 06/13/22
[2022-06-13 11:04] LABS: Glucose, Whole Blood 140 mg/dL (60-115)
[2022-06-13 11:24] VITALS: BP 138/70; PULSE 59; RESP 18; TEMP 37.1; O2SAT 96
--- NOTE | 2022-06-13 11:43 | MHC.CM.PN ---
Addendum entered by Pebbles Castano 06/13/22 11:45: GUARDIAN: BEVERLEY RASHEED [phone] Original Note: PER MD ROUNDS,. PT WILL GET HIS PICC LINE TOMORROW AND IS EXPECTED TO BE READY FOR DC ON MONDAY DC PLAN REMAINS, RETURN TO [facility] [place] [facility]
--- NOTE | 2022-06-13 11:44 | HO.PM.IMPN ---
Subjective Subjective Date of Service: 06/13/22 Interval History: cc:sob interval history: no complaints Cardiovascular Cardiovascular: Reports no additional cardiovascular complaints Respiratory Respiratory: Reports no additional respiratory complaints Physical Exam Vital Signs: Vital Signs: Last Vital Signs Temp 98.8 F 06/13/22 11:24 Pulse 59 06/13/22 11:24 Resp 18 06/13/22 11:24 BP 138/70 06/13/22 11:24 Pulse Ox 96 06/13/22 11:24 O2 Del Method 06/13/22 11:24 O2 Flow Rate 2 06/13/22 03:55 FiO2 25 05/26/22 09:00 BMI result Body Mass Index 32.8 Const: Other: General: AO X 2, no acute distress Resp: rohan rhonchi CVS: S1,S2,RRR, 1-2+ edema in legs GI: +BS, NT, no distention Skin: No rash Neuro: motor grossly intact Psych: appropriate affect General: no acute distress Neck: Neck: Yes supple Resp: Auscultation: diminished lung sounds Cardio: Rate: regular rate GI: Palpation (GI): Soft to palpation Neuro: General: moves all extremities Objective Data Active Medications Acetaminophen (Acetaminophen Supp 650 Mg Supp.Rect) 650 mg [place] Q6H PRN PRN Reason: Fever >100.4 Last Admin: 06/08/22 11:49 Dose: 650 mg Documented By: LUIS Amlodipine Besylate (Amlodipine Besylate 10 Mg Tablet) 10 mg G-TUBE DAILY [facility]; Protocol Carbidopa/Levodopa (Carbidopa/Levodopa 25/100 Tablet) 1 tab NG-TUBE QID [facility] Heparin Sodium (Porcine) (Heparin Sodium,Porcine 5,000 Unit/Ml Vial) 5,000 unit SUBCUT Q8H [facility] Last Admin: 06/13/22 06:08 Dose: 5,000 unit Documented By: ALEX Hydralazine HCl (Hydralazine Hcl 20 Mg/Ml Vial) 10 mg IVPUSH Q6H PRN; Protocol PRN Reason: SBP > 180 Last Admin: 06/09/22 03:35 Dose: 10 mg Documented By: MEKHI Piperacillin Sod/Tazobactam (Sod 4.5 gm/ Sodium Chloride) 100 mls @ 200 mls/hr IV Q6H [facility] Last Infusion: 06/13/22 07:35 Dose: 0 mls/hr Documented By: ALEX Vancomycin HCl 750 mg/ Sodium (Chloride) 265 mls @ 265 mls/hr IV Q24H [facility] Last Infusion: 06/12/22 18:36 Dose: 0 mls/hr Documented By: KAHLIL Insulin Glargine (Insulin Glargine,Hum.Rec.Anlog 100 Unit/Ml 10 Ml Vial) 30 unit SUBCUT DAILY [facility] Last Admin: 06/13/22 10:15 Dose: 30 unit Documented By: RUBENS Insulin Human Lispro (Insulin Lispro 100 Unit/Ml 3 Ml Vial) 0 unit SUBCUT QIDACHS [facility]; Protocol Last Admin: 06/13/22 10:06 Dose: Not Given Documented By: RUBENS Non-Admin Reason: No Insulin Coverage Levothyroxine Sodium (Levothyroxine Sodium 25 Mcg Tablet) 25 mcg NG-TUBE DAILY@0600 [facility] Metoprolol Tartrate (Metoprolol Tartrate 25 Mg Tablet) 25 mg NG-TUBE BID [facility]; Protocol Modafinil (Modafinil 100 Mg Tablet) 200 mg NG-TUBE DAILY [facility] Omeprazole (Omeprazole 20 Mg/10 Ml Susp.Recon) 40 mg G-TUBE DAILY@0630 [facility] Last Admin: 06/13/22 06:08 Dose: 40 mg Documented By: ALEX Pharmacy Consult (Consult Rx Perform Med Rec) 1 each MISCELLANE ONCE PRN PRN Reason: Consult order Pharmacy Consult (Consult Rx Vancomycin Dosing) 1 each MISCELLANE DAILY PRN PRN Reason: Consult order Sodium Chloride (0.9 % Sodium Chloride Flush 3 Ml Syringe) 3 ml IVFLUSH QSHIFT [facility] Last Admin: 06/13/22 10:16 Dose: 3 ml Documented By: RUBENS Labs CBC & Chem 7: 06/12/22 06:23 06/13/22 06:07 Labs: Laboratory Results - last 24 hr 06/12/22 06/12/22 06/13/22 16:00 21:26 06:07 Anion Gap 14 Estim Creat Clear Calc 47.8 Estimated GFR 36 POC Glucose 196 H 181 H Random Glucose 108 D Calcium 7.5 L Magnesium 2.6 06/13/22 06/13/22 08:09 10:55 Anion Gap Estim Creat Clear Calc Estimated GFR POC Glucose 115 140 H Random Glucose Calcium Magnesium Assessment and Plan (1) Right lower lobe pneumonia: Status: Acute (2) Toxic metabolic encephalopathy: Status: Acute (3) Dysphagia, oropharyngeal phase: Status: Acute (4) Type 2 diabetes mellitus with diabetic polyneuropathy: Status: Acute (5) CKD (chronic kidney disease) stage 3, GFR 30-59 ml/min: Status: Acute Plan 61/m with CKD3, HTN, schizophrenia, diastolic CHF frequent hospitalization was admitted on 05/17 for anasarca, exacerbation of CHF, encephalopathy and was being diuressed, he became increasingly more confused, agitated and agressive with some adjustment t Psych meds..on 05/19 he vomitted and aspirated resulting in PEA arrest and was intubated and admitted to ICU with prolonged course and was finally extubated [facility] with high concern of oral feeding; NG tube in place. Repeat swallow eval 06/06 continues to recommend NPO status Fever on 06/08 abd ? related to pneumonia vs pneuonitis -blood cultures x2 negative urine cultures negative -afebrile since 06/09 -continue vancomycin and Zosyn empirically and change to PO Augmentin after PEG plan for peg tomorrow Toxic metabolic encephalopathy (likely multi factorial related to hyperammonemia/advanced Parkinson's/under lines schizophrenic tendencies, possible anoxic brain injury) -continue lactulose -Sinemet q.i.d. as ordered for parkinson - Will avoid antipsychotics as muchas possible. If agitated will try small dose of Seroquel Severe oropharyngeal dysphagia -PEG placement planned for tomororw Diabetes type 2 -acceptable control on current therapies -continue sliding scale/Lantus as ordered -adjust as indicated CKD III--with ERNST, creatine back to baseline Hypernatremia-- resolved - Cirrhosis -continue lactulose as ordered -follow synthetic function Full Code DVT Prophylaxis: Heparin Requires ongoing hospitalization for treatment of pneumonia and need for PEG tube before dc Quality Stroke Does the patient have a stroke diagnosis?: No VTE Prior VTE?: No VTE Risk Level:: Medical - moderate - high VTE Device Contraindication: Treatment Not Indicated VTE Drug Contraindication: N/A - Med Ordered
--- NOTE | 2022-06-13 12:22 | MHC.CLN ---
F/U PT CONTINUES WITH NG TUBE IN PLACE PEG SCHEDULED FOR TOMORROW PT RECEIVING PROMOTE AT MAX GOAL RATE OF 75ML/HR WITH 300ML FREE WATER FLUSHES Q 4 HOURS PROVIDES 1800KCALS (24KCALS/KG BASED ON IBW), 112.5G PROTEIN (1.5G/KG BASED ON IBW) FOR WOUND HEALING, 3310ML TOTAL WATER FROM FORMULA AND FLUSHES (44ML/KG BASED ON IBW) SERUM NA WNL TODAY PT RECEIVING MAXIMUM AMOUNT OF FREE WATER AVAILABLE AT THIS TIME RECOMMEND DECREASING WATER FLUSHES TO 240ML Q 8HRS S/P PEG PLACED FOR FLUID MAINTENANCE CONTINUE TO MONITOR TOLERANCE, RESIDUALS AND LYTES AWAITING PEG
--- NOTE | 2022-06-13 13:55 | PM.PNGS ---
Subjective Subjective Date of Service: 06/14/22 Interval history: Patient was scheduled to have a PEG tube placement last week this was canceled because of fever as per hospitalist, patient has been afebrile and I have been requested to proceed with tube placement mental status remains the same - patient not communicative Physical Exam Vital Signs: Vital Signs: Last Vital Signs Temp 98.8 F 06/13/22 11:24 Pulse 59 06/13/22 11:24 Resp 18 06/13/22 11:24 BP 138/70 06/13/22 11:24 Pulse Ox 96 06/13/22 11:24 O2 Del Method 06/13/22 11:24 O2 Flow Rate 2 06/13/22 03:55 FiO2 25 05/26/22 09:00 BMI result Body Mass Index 32.8 Const: Other: not communicative, mumbling, eyes closed Resp: Other: a little bit of some irregular ring pattern Cardio: Rhythm: abnormal rhythm GI: Other: soft, no guarding or tenderness, no surgical scars Objective Data Active Medications Acetaminophen (Acetaminophen Supp 650 Mg Supp.Rect) 650 mg [place] Q6H PRN PRN Reason: Fever >100.4 Last Admin: 06/08/22 11:49 Dose: 650 mg Documented By: LUIS Amlodipine Besylate (Amlodipine Besylate 10 Mg Tablet) 10 mg G-TUBE DAILY [facility]; Protocol Carbidopa/Levodopa (Carbidopa/Levodopa 25/100 Tablet) 1 tab NG-TUBE QID [facility] Heparin Sodium (Porcine) (Heparin Sodium,Porcine 5,000 Unit/Ml Vial) 5,000 unit SUBCUT Q8H [facility] Last Admin: 06/13/22 06:08 Dose: 5,000 unit Documented By: ALEX Hydralazine HCl (Hydralazine Hcl 20 Mg/Ml Vial) 10 mg IVPUSH Q6H PRN; Protocol PRN Reason: SBP > 180 Last Admin: 06/09/22 03:35 Dose: 10 mg Documented By: MEKHI Piperacillin Sod/Tazobactam (Sod 4.5 gm/ Sodium Chloride) 100 mls @ 200 mls/hr IV Q6H [facility] Last Infusion: 06/13/22 13:19 Dose: 0 mls/hr Documented By: DEANN-LANA Vancomycin HCl 750 mg/ Sodium (Chloride) 265 mls @ 265 mls/hr IV Q24H [facility] Last Infusion: 06/12/22 18:36 Dose: 0 mls/hr Documented By: KAHLIL Insulin Glargine (Insulin Glargine,Hum.Rec.Anlog 100 Unit/Ml 10 Ml Vial) 30 unit SUBCUT DAILY [facility] Last Admin: 06/13/22 10:15 Dose: 30 unit Documented By: RUBENS Insulin Human Lispro (Insulin Lispro 100 Unit/Ml 3 Ml Vial) 0 unit SUBCUT QIDACHS [facility]; Protocol Last Admin: 06/13/22 12:30 Dose: Not Given Documented By: RUBENS Non-Admin Reason: No Insulin Coverage Levothyroxine Sodium (Levothyroxine Sodium 25 Mcg Tablet) 25 mcg NG-TUBE DAILY@0600 [facility] Metoprolol Tartrate (Metoprolol Tartrate 25 Mg Tablet) 25 mg NG-TUBE BID [facility]; Protocol Modafinil (Modafinil 100 Mg Tablet) 200 mg NG-TUBE DAILY [facility] Omeprazole (Omeprazole 20 Mg/10 Ml Susp.Recon) 40 mg G-TUBE DAILY@0630 [facility] Last Admin: 06/13/22 06:08 Dose: 40 mg Documented By: ALEX Pharmacy Consult (Consult Rx Perform Med Rec) 1 each MISCELLANE ONCE PRN PRN Reason: Consult order Pharmacy Consult (Consult Rx Vancomycin Dosing) 1 each MISCELLANE DAILY PRN PRN Reason: Consult order Sodium Chloride (0.9 % Sodium Chloride Flush 3 Ml Syringe) 3 ml IVFLUSH QSHIFT [facility] Last Admin: 06/13/22 10:16 Dose: 3 ml Documented By: RUBENS Labs CBC & Chem 7: 06/14/22 05:37 06/14/22 05:37 Labs: Laboratory Results - last 24 hr 06/12/22 06/12/22 06/13/22 16:00 21:26 06:07 Anion Gap 14 Estim Creat Clear Calc 47.8 Estimated GFR 36 POC Glucose 196 H 181 H Random Glucose 108 D Calcium 7.5 L Magnesium 2.6 06/13/22 06/13/22 08:09 10:55 Anion Gap Estim Creat Clear Calc Estimated GFR POC Glucose 115 140 H Random Glucose Calcium Magnesium Procedures Date of Service Date of Service: 06/13/22 Progress Note: A&P Assessment and plan (1) Dysphagia, oropharyngeal phase: Status: Acute Assessment and Plan: I have been requested to place PEG tube I have discussed this extensively with his healthcare proxy Melania Solar she had given consent will proceed with PEG tube placement tomorrow patient with significant perioperative risks in view of cirrhosis, varices Time Spent With Patient Time: Total time spent is greater than 50% in coordination of care (as documented) at patient's floor/unit and/or counseling patient: Quality Stroke Does the patient have a stroke diagnosis?: No VTE Prior VTE?: No VTE Risk Level:: Medical - moderate - high VTE Device Contraindication: Treatment Not Indicated VTE Drug Contraindication: N/A - Med Ordered
[2022-06-13] MEDS: Carbidopa/Levodopa 25/100 TABLET 1 TAB NG-TUBE ×3 (14:37→22:23)
[2022-06-13 15:46] VITALS: BP 154/69; PULSE 69; RESP 19; TEMP 37.3; O2SAT 96
[2022-06-13 16:09] LABS: Vancomycin Random 21.2 mcg/mL (15-20)
--- NOTE | 2022-06-13 16:40 | HE.PHANOTE ---
Vancomycin Dosing Addendum Vancomycin trough 21.2. Pushed back dose to be given 6 hours later at 2300. Renal function improving and dose recently decreased. Continue with current dosing, next trough 06/14/22 @2100
[2022-06-13 16:52] LABS: Glucose, Whole Blood 155 mg/dL (60-115)
[2022-06-13] MEDS: Insulin Lispro 100 UNIT/ML 3 ML VIAL SUBCUT (18:10)
--- NOTE | 2022-06-13 18:23 | PM.PNNEP ---
Subjective Subjective Date of Service: 06/13/22 Interval history: Seen and examined, events noted Physical Exam Vital Signs: Vital Signs: Last Vital Signs Temp 99.1 F 06/13/22 15:46 Pulse 69 06/13/22 15:46 Resp 19 06/13/22 15:46 BP 154/69 H 06/13/22 15:46 Pulse Ox 96 06/13/22 15:46 O2 Del Method 06/13/22 15:46 O2 Flow Rate 2 06/13/22 03:55 FiO2 25 05/26/22 09:00 BMI result Body Mass Index 32.8 Const: Other: General: lethargic but no distress,?He is not talking at all, no gurgling Resp:? rohan rhonchi, no accessory muscle use CVS: S1,S2,RRR--Swelling in all arms GI: +BS, NT, no distention Skin: No rash,?He has a 1/2 x 3 cm stage 2 decubitus on his? coccyx, a 1 cm DTI on his medial right buttock, and a 3 x 3 DTI on his left buttock Neuro:? motor grossly intact,?He moves all 4 spontaneously. Psych: flat General: no acute distress and other ( poor arousal with sedation vacation, anasarca) Eyes: Sclerae: sclerae normal EOM: EOMs intact bilaterally Neck: Neck: Yes no lymphadenopathy, Yes trachea midline and Yes supple Resp: Effort & Inspection: normal respiratory effort and no respiratory distress Auscultation: clear to auscultation bilaterally and crackles ( diffuse bilateral) Cardio: Rate: regular rate Rhythm: regular rhythm Heart sounds: no gallops, no murmurs and no rubs GI: Palpation (GI): Soft to palpation and Other GI palpation findings present ( Nontender) Auscultation: normal bowel sounds Extrem: General: Yes no pedal edema, No clubbing, No cyanosis and Yes pedal edema ( 2+ bilateral) Objective Data Labs CBC & Chem 7: 06/12/22 06:23 06/13/22 06:07 Labs: Laboratory Results - last 24 hr 06/12/22 06/13/22 06/13/22 21:26 06:07 08:09 Sodium 139 Potassium 4.6 Chloride 111 H Carbon Dioxide 19 L Anion Gap 14 BUN 44 H Creatinine 1.91 H Estim Creat Clear Calc 47.8 Estimated GFR 36 POC Glucose 181 H 115 Random Glucose 108 D Calcium 7.5 L Magnesium 2.6 Random Vancomycin 06/13/22 06/13/22 06/13/22 10:55 15:17 15:51 Sodium Potassium Chloride Carbon Dioxide Anion Gap BUN Creatinine Estim Creat Clear Calc Estimated GFR POC Glucose 140 H 155 H Random Glucose Calcium Magnesium Random Vancomycin 21.2 H Microbiology Microbiology Results: Microbiology 06/08/22 14:51 Blood - Venous Blood Culture - Final No growth after 5 days. 06/08/22 14:51 Blood - Venous Blood Culture - Final No growth after 5 days. 06/08/22 18:29 Urine Catheterized - Ybarra Catheter Urine Culture - Final No growth. 05/23/22 14:47 Sputum - Suctioned Gram Stain - Final 05/23/22 14:47 Sputum - Suctioned Sputum Culture - Final Klebsiella pneumoniae Yeast 05/20/22 00:48 Blood - Venous Blood Culture - Final No growth after 5 days. 05/20/22 00:48 Blood - Venous Blood Culture - Final No growth after 5 days. 05/17/22 17:00 Blood - Venous Blood Culture - Final No growth after 5 days. 05/17/22 16:10 Blood - Venous Blood Culture - Final No growth after 5 days. Procedures Date of Service Date of Service: 06/13/22 Assessment & Plan Assessment and plan (1) Parkinson disease: Status: Acute (2) Toxic metabolic encephalopathy: Status: Acute (3) Type 2 diabetes mellitus with diabetic polyneuropathy: Status: Acute Plan 1. ERNST: resolved w peak Scr 3.2 2. CKD 4: BSL Scr 2.5-3.0---now 1.9 ( loss of muscle mass) 3. Anemia: ques Fe and/or EPO def 4. Metbolic: K/Na/HCO3 ok 5. MBD of CKD REC: cont to track renal func; avoid Ntoxins; protect non-dominant arm; epo as oredered Time Spent With Patient Time: Total time spent is greater than 50% in coordination of care (as documented) at patient's floor/unit and/or counseling patient: Progress Note: Quality Stroke Does the patient have a stroke diagnosis?: No
[2022-06-13 20:00] VITALS: BP 148/69; PULSE 68; RESP 20; TEMP 36.9; O2SAT 97
[2022-06-13 21:07] LABS: Glucose, Whole Blood 93 mg/dL (60-115)
[2022-06-13] MEDS: Metoprolol Tartrate 25 MG TABLET NG-TUBE (22:22)
[2022-06-14] VITALS (16 sets, daily range): BP systolic 129–185; BP diastolic 54–78; PULSE 60–94; RESP 16–22; TEMP 36.4–37.2; O2SAT 93–98; BMI 31.2
[2022-06-14] MEDS: vancomycin HCL 750 MG in 0.9 % Sodium Chloride 250 ML 265 MG IV
[2022-06-14] MEDS: Piperacillin Sodium/Tazobactam 4.5 GM in 0.9 % Sodium Chloride 100 ML IV ×4 (02:58→20:08)
[2022-06-14 05:59] LABS: Hematocrit 24.4 % (42.0-52.0); Mean Corpuscular HGB Conc 32.8 g/dl (31.0-36.0); Mean Corpuscular Hemoglobin 31.1 pg (27.0-33.0); Mean Corpuscular Volume 94.9 fL (80.0-98.0); Mean Platelet Volume 11.4 fL (9.4-12.4); Platelet Count 130 X10*3/uL (160-400); Red Blood Count 2.57 X10*6/uL (4.60-5.80); Red Cell Distribution Width 17.9 % (11.0-16.0); White Blood Count 6.9 X10*3/uL (4.8-10.8)
[2022-06-14 06:18] LABS: Anion Gap 15 (12-20); Blood Urea Nitrogen 45 mg/dL (9-16); Calcium 7.8 mg/dL (8.4-10.2); Carbon Dioxide 19 mmol/L (22-29); Chloride 112 mmol/L (96-108); Estimated Glomerular Filt Rate 34; Glucose Fasting 73 mg/dL (60-99); Sodium 141 mmol/L (135-145)
[2022-06-14 07:07] LABS: CDiff Gene PCR NEGATIVE (Negative)
[2022-06-14 07:36] LABS: Glucose, Whole Blood 59 mg/dL (60-115)
[2022-06-14] MEDS: 0.9 % Sodium Chloride Flush 3 ML SYRINGE IVFLUSH ×3 (09:41→20:11)
[2022-06-14] MEDS: Dextrose 50 % 25 GM/50 ML SYRINGE IVPUSH (09:41)
[2022-06-14 10:04] LABS: Glucose, Whole Blood 122 mg/dL (60-115)
--- NOTE | 2022-06-14 11:14 | HO.PM.IMPN ---
Subjective Subjective Date of Service: 06/14/22 Interval History: cc:sob interval history: no complaints Cardiovascular Cardiovascular: Reports no additional cardiovascular complaints Respiratory Respiratory: Reports no additional respiratory complaints Physical Exam Vital Signs: Vital Signs: Last Vital Signs Temp 98.9 F 06/14/22 10:50 Pulse 69 06/14/22 10:50 Resp 22 H 06/14/22 10:50 BP 173/54 H 06/14/22 10:50 Pulse Ox 96 06/14/22 10:50 O2 Del Method 06/14/22 10:50 O2 Flow Rate 2 06/13/22 20:00 FiO2 25 05/26/22 09:00 BMI result Body Mass Index 31.2 Const: Other: General: lethargic but no distress,?He is not talking at all, no gurgling Resp:? rohan rhonchi, no accessory muscle use CVS: S1,S2,RRR--Swelling in all arms GI: +BS, NT, no distention Skin: No rash,?He has a 1/2 x 3 cm stage 2 decubitus on his? coccyx, a 1 cm DTI on his medial right buttock, and a 3 x 3 DTI on his left buttock Neuro:? motor grossly intact,?He moves all 4 spontaneously. Psych: flat General: no acute distress and other ( poor arousal with sedation vacation, anasarca) Eyes: Sclerae: sclerae normal EOM: EOMs intact bilaterally Neck: Neck: Yes no lymphadenopathy, Yes trachea midline and Yes supple Resp: Effort & Inspection: normal respiratory effort and no respiratory distress Auscultation: clear to auscultation bilaterally and crackles ( diffuse bilateral) Cardio: Rate: regular rate Rhythm: regular rhythm Heart sounds: no gallops, no murmurs and no rubs GI: Palpation (GI): Soft to palpation and Other GI palpation findings present ( Nontender) Auscultation: normal bowel sounds Extrem: General: Yes no pedal edema, No clubbing, No cyanosis and Yes pedal edema ( 2+ bilateral) Objective Data Active Medications Acetaminophen (Acetaminophen Supp 650 Mg Supp.Rect) 650 mg [place] Q6H PRN PRN Reason: Fever >100.4 Last Admin: 06/08/22 11:49 Dose: 650 mg Documented By: LUIS Amlodipine Besylate (Amlodipine Besylate 10 Mg Tablet) 10 mg G-TUBE DAILY [facility]; Protocol Last Admin: 06/14/22 10:28 Dose: Not Given Documented By: CARLEY Non-Admin Reason: NPO Carbidopa/Levodopa (Carbidopa/Levodopa 25/100 Tablet) 1 tab NG-TUBE QID [facility] Last Admin: 06/14/22 10:28 Dose: Not Given Documented By: CARLEY Non-Admin Reason: NPO Heparin Sodium (Porcine) (Heparin Sodium,Porcine 5,000 Unit/Ml Vial) 5,000 unit SUBCUT Q8H [facility] Last Admin: 06/14/22 06:05 Dose: Not Given Documented By: ALEX Non-Admin Reason: PEG tube today Hydralazine HCl (Hydralazine Hcl 20 Mg/Ml Vial) 10 mg IVPUSH Q6H [facility]; Protocol PRN Reason: SBP > 180 Last Admin: 06/09/22 03:35 Dose: 10 mg Documented By: MEKHI Piperacillin Sod/Tazobactam (Sod 4.5 gm/ Sodium Chloride) 100 mls @ 200 mls/hr IV Q6H [facility] Last Infusion: 06/14/22 07:17 Dose: 0 mls/hr Documented By: ALEX Vancomycin HCl 750 mg/ Sodium (Chloride) 265 mls @ 265 mls/hr IV Q24H [facility] Last Infusion: 06/14/22 01:12 Dose: 0 mls/hr Documented By: ALEX Insulin Glargine (Insulin Glargine,Hum.Rec.Anlog 100 Unit/Ml 10 Ml Vial) 30 unit SUBCUT DAILY [facility] Last Admin: 06/14/22 10:29 Dose: Not Given Documented By: CARLEY Non-Admin Reason: sugar of 59 Insulin Human Lispro (Insulin Lispro 100 Unit/Ml 3 Ml Vial) 0 unit SUBCUT QIDACHS [facility]; Protocol Last Admin: 06/14/22 09:21 Dose: Not Given Documented By: LASHANDA Non-Admin Reason: No Insulin Coverage Levothyroxine Sodium (Levothyroxine Sodium 25 Mcg Tablet) 25 mcg NG-TUBE DAILY@0600 [facility] Last Admin: 06/14/22 06:06 Dose: Not Given Documented By: ALEX Non-Admin Reason: NPO Metoprolol Tartrate (Metoprolol Tartrate 25 Mg Tablet) 25 mg NG-TUBE BID [facility]; Protocol Last Admin: 06/14/22 10:29 Dose: Not Given Documented By: CARLEY Non-Admin Reason: NPO Modafinil (Modafinil 100 Mg Tablet) 200 mg NG-TUBE DAILY [facility] Last Admin: 06/14/22 10:29 Dose: Not Given Documented By: CARLEY Non-Admin Reason: NPO Omeprazole (Omeprazole 20 Mg/10 Ml Susp.Recon) 40 mg G-TUBE DAILY@0630 [facility] Last Admin: 06/14/22 06:06 Dose: Not Given Documented By: ALEX Non-Admin Reason: NPO Pharmacy Consult (Consult Rx Perform Med Rec) 1 each MISCELLANE ONCE PRN PRN Reason: Consult order Pharmacy Consult (Consult Rx Vancomycin Dosing) 1 each MISCELLANE DAILY PRN PRN Reason: Consult order Sodium Chloride (0.9 % Sodium Chloride Flush 3 Ml Syringe) 3 ml IVFLUSH QSHIFT [facility] Last Admin: 06/14/22 09:41 Dose: 3 ml Documented By: CARLEY Labs CBC & Chem 7: 06/14/22 05:37 06/14/22 05:37 Labs: Laboratory Results - last 24 hr 06/13/22 06/13/22 06/13/22 15:17 15:51 21:03 MCV MCH MCHC RDW Plt Count MPV Absolute Nucleated RBC Nucleated RBC % (auto) Anion Gap Estim Creat Clear Calc Estimated GFR POC Glucose 155 H 93 Fasting Glucose Calcium Random Vancomycin 21.2 H C. difficile Tox B Gene 06/14/22 06/14/22 06/14/22 05:37 05:37 05:45 MCV 94.9 MCH 31.1 MCHC 32.8 RDW 17.9 H Plt Count 130 L MPV 11.4 Absolute Nucleated RBC 0.000 Nucleated RBC % (auto) 0.0 Anion Gap 15 Estim Creat Clear Calc 44.0 Estimated GFR 34 POC Glucose Fasting Glucose 73 Calcium 7.8 L Random Vancomycin C. difficile Tox B Gene NEGATIVE 06/14/22 06/14/22 07:32 10:00 MCV MCH MCHC RDW Plt Count MPV Absolute Nucleated RBC Nucleated RBC % (auto) Anion Gap Estim Creat Clear Calc Estimated GFR POC Glucose 59 L* 122 H Fasting Glucose Calcium Random Vancomycin C. difficile Tox B Gene Microbiology Microbiology Results: Microbiology 06/08/22 14:51 Blood Culture - Final Blood - Venous No growth after 5 days. 06/08/22 14:51 Blood Culture - Final Blood - Venous No growth after 5 days. Assessment and Plan (1) Right lower lobe pneumonia: Status: Acute (2) Toxic metabolic encephalopathy: Status: Acute (3) Dysphagia, oropharyngeal phase: Status: Acute (4) Type 2 diabetes mellitus with diabetic polyneuropathy: Status: Acute (5) CKD (chronic kidney disease) stage 3, GFR 30-59 ml/min: Status: Acute Plan 61/m with CKD3, HTN, schizophrenia, diastolic CHF frequent hospitalization was admitted on 05/17 for anasarca, exacerbation of CHF, encephalopathy and was being diuressed, he became increasingly more confused, agitated and agressive with some adjustment t Psych meds..on 05/19 he vomitted and aspirated resulting in PEA arrest and was intubated and admitted to ICU with prolonged course and was finally extubated and transfer back to [facility] on 05/28 with high concern of oral feeding; NG tube in place. Repeat swallow eval 06/06 continues to recommend NPO status Fever on 06/08 abd ? related to pneumonia vs pneuonitis -blood cultures x2 negative urine cultures negative -afebrile since 06/09 -continue vancomycin and Zosyn empirically and change to PO Augmentin after PEG plan for peg today Toxic metabolic encephalopathy (likely multi factorial related to hyperammonemia/advanced Parkinson's/under lines schizophrenic tendencies, possible anoxic brain injury) -continue lactulose -Sinemet q.i.d. as ordered for parkinson - Will avoid antipsychotics as muchas possible. If agitated will try small dose of Seroquel Severe oropharyngeal dysphagia -PEG placement planned for tomororw Diabetes type 2 -acceptable control on current therapies -continue sliding scale/Lantus as ordered -adjust as indicated CKD III--with ERNST, creatine back to baseline Hypernatremia-- resolved - Cirrhosis -continue lactulose as ordered -follow synthetic function Full Code DVT Prophylaxis: Heparin Requires ongoing hospitalization for treatment of pneumonia and need for PEG tube before dc Quality Stroke Does the patient have a stroke diagnosis?: No VTE Prior VTE?: No VTE Risk Level:: Medical - moderate - high VTE Device Contraindication: Treatment Not Indicated VTE Drug Contraindication: N/A - Med Ordered
--- NOTE | 2022-06-14 12:15 | HO.ANESPROP2 ---
[facility] Active Problems Active Problems: All Active Problems (Updated 06/13/22 @ 10:55 by Heber Cifuentes MD) Ventricular arrhythmia (Acute) Right lower lobe pneumonia (Acute) Dysphagia, oropharyngeal phase (Acute) Fever (Acute) Parkinson disease (Acute) Toxic metabolic encephalopathy (Acute) Type 2 diabetes mellitus with diabetic polyneuropathy (Acute) CKD (chronic kidney disease) stage 3, GFR 30-59 ml/min (Acute) Respiratory arrest associated with feeding (Acute) Unspecified dementia with behavioral disturbance (Acute) Mild cognitive impairment, so stated (Acute) Schizophrenia (Acute) Cirrhosis (Acute) Acute on chronic diastolic (congestive) heart failure (Acute) Acute exacerbation of CHF (congestive heart failure) (Acute) Acute kidney injury superimposed on chronic kidney disease (Acute) Past Medical History Medical History (Updated 06/13/22 @ 10:55 by Heber Cifuentes MD) Abnormal findings on diagnostic imaging of liver and biliary tract Acute kidney failure, unspecified Acute respiratory failure with hypoxia Alcohol abuse, uncomplicated Alcoholic cirrhosis of liver with ascites Allergic rhinitis due to pollen Anemia Ataxia Cannabis use, unspecified, uncomplicated Chronic kidney disease, stage 3 unspecified Chronic renal failure CKD (chronic kidney disease) stage 3, GFR 30-59 ml/min Cocaine abuse, uncomplicated Dementia Dementia in other diseases classified elsewhere with behavioral disturbance Diabetes Disorder of urea cycle metabolism, unspecified Drug abuse, cocaine type Dysphagia, oral phase Dysphagia, oropharyngeal phase Essential (primary) hypertension Essential tremor ETOH abuse Hepatic failure, unspecified without coma Hepatomegaly, not elsewhere classified Hereditary and idiopathic neuropathy, unspecified Hereditary ataxia, unspecified Hyperosmolality and hypernatremia Intracranial hemorrhage, subdural Mild cognitive impairment, so stated Muscle weakness (generalized) Myopia, bilateral Orthostatic hypotension Osteophyte, unspecified joint Other chronic allergic conjunctivitis Other lack of coordination Other pancytopenia Other skin changes Other specified eating disorder Other speech disturbances Pain in unspecified shoulder Parkinson disease Pneumonitis due to inhalation of food and vomit Repeated falls Schizophrenia Sepsis, unspecified organism Subdural hematoma Tinea pedis Toxic metabolic encephalopathy Traumatic subdural hemorrhage without loss of consciousness, subsequent encounter Type 2 diabetes mellitus with diabetic polyneuropathy Unspecified dementia with behavioral disturbance Unsteadiness on feet Family History Family History Other Hypertension Social History Social History Household Members: None Household Members Other:: Other residents Housing: Apartment Housing Other:: [facility] Do you presently have visiting nurse or other home services: No Unable to assess alcohol history related to: Unknown Alcohol intake: former Patient Tobacco Use Status: Former Tobacco user Cigarettes Per Day: 1 Second Hand Smoke Exposure: No Use of substances other than those prescribed or required for medical reasons: No Currently Displaying Signs/Symptoms of Drug Intoxication Withdrawal: No Have you been hit, kicked, punched, or otherwise hurt by someone within the past year? If so, by whom?: No Do you feel safe in your current relationship?: No Current Relationship Is there a partner from a previous relationship who is making you feel unsafe now?: No Are you made to feel afraid or neglected: No Are you DNR?: No Advance Directives: No Advance Directives Information Provided: No Advance Directives on File: No Do you have thoughts of harming others: None Do you have a plan to hurt others: No Plan Recently lost weight without trying: No How much weight loss: Not applicable Eating poorly because of decreased appetite: No Nutrition screen score: 0 service: No ([employer]) Current occupational status: disabled Meds Allergies Allergy/AdvReac Type Severity Reaction Status Date / Time pollen extracts Allergy Unknown Verified 03/20/22 13:42 ragweed pollen Allergy Unknown Verified 03/20/22 13:42 Active Medications: Current Medications Acetaminophen (Acetaminophen Supp 650 Mg Supp.Rect) 650 mg VT Q6H PRN PRN Reason: Fever >100.4 Last Admin: 06/08/22 11:49 Dose: 650 mg Amlodipine Besylate (Amlodipine Besylate 10 Mg Tablet) 10 mg G-TUBE DAILY ANDREY; Protocol Last Admin: 06/14/22 10:28 Dose: Not Given Carbidopa/Levodopa (Carbidopa/Levodopa 25/100 Tablet) 1 tab NG-TUBE QID ANDREY Last Admin: 06/14/22 10:28 Dose: Not Given Heparin Sodium (Porcine) (Heparin Sodium,Porcine 5,000 Unit/Ml Vial) 5,000 unit SUBCUT Q8H ANDREY Last Admin: 06/14/22 06:05 Dose: Not Given Hydralazine HCl (Hydralazine Hcl 20 Mg/Ml Vial) 10 mg IVPUSH Q6H PRN; Protocol PRN Reason: SBP > 180 Last Admin: 06/09/22 03:35 Dose: 10 mg Piperacillin Sod/Tazobactam (Sod 4.5 gm/ Sodium Chloride) 100 mls @ 200 mls/hr IV Q6H [facility] Last Infusion: 06/14/22 07:17 Dose: Infused Vancomycin HCl 750 mg/ Sodium (Chloride) 265 mls @ 265 mls/hr IV Q24H [facility] Last Infusion: 06/14/22 01:12 Dose: Infused Insulin Glargine (Insulin Glargine,Hum.Rec.Anlog 100 Unit/Ml 10 Ml Vial) 30 unit SUBCUT DAILY [facility] Last Admin: 06/14/22 10:29 Dose: Not Given Insulin Human Lispro (Insulin Lispro 100 Unit/Ml 3 Ml Vial) 0 unit SUBCUT QIDACHS [facility]; Protocol Last Admin: 06/14/22 09:21 Dose: Not Given Levothyroxine Sodium (Levothyroxine Sodium 25 Mcg Tablet) 25 mcg NG-TUBE DAILY@0600 [facility] Last Admin: 06/14/22 06:06 Dose: Not Given Metoprolol Tartrate (Metoprolol Tartrate 25 Mg Tablet) 25 mg NG-TUBE BID [facility]; Protocol Last Admin: 06/14/22 10:29 Dose: Not Given Modafinil (Modafinil 100 Mg Tablet) 200 mg NG-TUBE DAILY [facility] Last Admin: 06/14/22 10:29 Dose: Not Given Omeprazole (Omeprazole 20 Mg/10 Ml Susp.Recon) 40 mg G-TUBE DAILY@0630 [facility] Last Admin: 06/14/22 06:06 Dose: Not Given Pharmacy Consult (Consult Rx Perform Med Rec) 1 each MISCELLANE ONCE PRN PRN Reason: Consult order Pharmacy Consult (Consult Rx Vancomycin Dosing) 1 each MISCELLANE DAILY PRN PRN Reason: Consult order Sodium Chloride (0.9 % Sodium Chloride Flush 3 Ml Syringe) 3 ml IVFLUSH QSHIFT [facility] Last Admin: 06/14/22 09:41 Dose: 3 ml Home Medications Medication Instructions Recorded Confirmed Last Taken Type benztropine 1 mg tablet 1 mg PO BID 11/18/20 05/17/22 Unknown History carbidopa 25 mg-levodopa 100 mg 1 tab PO QID 11/18/20 05/17/22 Unknown History tablet (Sinemet) fluphenazine decanoate 25 mg/mL 50 mg subcut Q14D 11/18/20 05/17/22 03/16/22 History injection solution miconazole nitrate 2 % topical 1 spray topical BID PRN fungal 11/18/20 05/17/22 Unknown History spray (Lotrimin AF) infection tramadol 50 mg tablet 50 mg PO BID 11/18/20 05/17/22 Unknown History docusate sodium 100 mg tablet 100 mg PO BEDTIME 12/10/20 05/17/22 Unknown History sennosides 8.6 mg tablet (senna) 8.6 mg PO DAILY PRN Constipation 12/10/20 05/17/22 Unknown History amlodipine 10 mg tablet 10 mg PO BEDTIME 02/19/22 05/17/22 Unknown History levothyroxine 25 mcg tablet 25 mcg PO DAILY@0600 02/19/22 05/17/22 Unknown History multivitamin 1 tab PO DAILY 02/19/22 05/17/22 Unknown History rifaximin 550 mg tablet (Xifaxan) 1 tab PO BID 02/19/22 05/17/22 Unknown History Calazime Skin Protectant 1 applic topical QSHIFT 03/20/22 05/17/22 Unknown History acetaminophen 325 mg tablet 650 mg PO Q4H PRN PAIN/TEMP>100 03/20/22 05/17/22 Unknown History bisacodyl 10 mg rectal suppository 10 mg VT DAILY PRN Constipation 03/20/22 05/17/22 Unknown History guaifenesin 100 mg/5 mL oral liquid 200 mg PO Q4H PRN Cough 03/20/22 05/17/22 Unknown History lactulose 20 gram/30 mL oral 20 g PO DAILY 03/20/22 05/17/22 Unknown History solution metoprolol tartrate 25 mg tablet 25 mg PO BID 03/20/22 05/17/22 Unknown History gabapentin 300 mg capsule 300 mg PO TID 05/17/22 05/17/22 Unknown History hydralazine 25 mg tablet 25 mg PO TID 05/17/22 05/17/22 Unknown History insulin glargine 100 unit/mL (3 20 unit subcut BID 05/17/22 05/17/22 Unknown History mL) subcutaneous pen (Lantus Solostar U-100 Insulin) insulin lispro 100 unit/mL See Protocol subcut QIDACHS 05/17/22 05/17/22 Unknown History subcutaneous pen (Humalog KwikPen (U-100) Insulin) metformin 1,000 mg tablet 1,000 mg PO BID 05/17/22 05/17/22 Unknown History Exam Exam Date and Time: June 14, 2022 1215 Height,Weight and Vital Signs: Height 5 ft 10 in Weight 98.7 kg Last Vital Signs Temp 98.9 F 06/14/22 10:50 Pulse 69 06/14/22 10:50 Resp 22 H 06/14/22 10:50 BP 173/54 H 06/14/22 10:50 Pulse Ox 96 06/14/22 10:50 O2 Del Method 06/14/22 10:50 O2 Flow Rate 2 06/13/22 20:00 FiO2 25 05/26/22 09:00 Pertinent Lab Results Pertinent Lab Results: Laboratory Tests 05/17/22 05/17/22 05/17/22 14:56 14:56 14:56 WBC 6.0 RBC 2.44 L Hgb 7.5 L Hct 23.1 L MCV 94.7 MCH 30.7 MCHC 32.5 RDW 18.5 H Plt Count 102 L MPV 10.5 Immature Gran % (Auto) 0.2 Neut % (Auto) 59.9 Lymph % (Auto) 19.8 L [place] % (Auto) 10.9 Eos % (Auto) 8.9 H Baso % (Auto) 0.3 Lymph # (Auto) 1.2 [place] # (Auto) 0.7 Eos # (Auto) 0.5 H Baso # (Auto) 0.0 Abs Immat Gran (auto) 0.01 Absolute Neuts (auto) 3.6 Absolute Nucleated RBC 0.000 Nucleated RBC % (auto) 0.0 PT INR O2 Saturation ABG pH at Pt Temp ABG pCO2 at Pt Temp ABG pO2 at Pt Temp ABG HCO3 ABG Base Excess (Actual) VBG pH VBG pCO2 VBG pO2 VBG HCO3 VBG O2 Saturation VBG Base Excess Sodium 136 Potassium 4.8 Chloride 108 Carbon Dioxide 22 Anion Gap 11 L BUN 35 H Creatinine 2.55 H Estim Creat Clear Calc 36.4 Estimated GFR 26 POC Glucose Random Glucose 120 H D Fasting Glucose Lactic Acid Calcium 8.2 L D Phosphorus Magnesium 2.5 Iron TIBC % Saturation Unsat Iron Binding Ferritin Total Bilirubin 0.8 AST 26 ALT 6 Alkaline Phosphatase 105 D Ammonia Lactate Dehydrogenase Troponin I High Sens B-Natriuretic Peptide 1919 H Total Protein 6.2 L Albumin 2.6 L PTH Intact Calcium (PTH Intact) Gastric Occult Blood Stool Occult Blood Random Vancomycin C. difficile Tox B Gene COVID-19 (JAS) COVID-19 Clin Com Blood Type Antibody Screen Crossmatch 05/17/22 05/17/22 05/17/22 14:56 14:56 14:56 WBC RBC Hgb Hct MCV MCH MCHC RDW Plt Count MPV Immature Gran % (Auto) Neut % (Auto) Lymph % (Auto) [place] % (Auto) Eos % (Auto) Baso % (Auto) Lymph # (Auto) [place] # (Auto) Eos # (Auto) Baso # (Auto) Abs Immat Gran (auto) Absolute Neuts (auto) Absolute Nucleated RBC Nucleated RBC % (auto) PT 14.4 H INR 1.2 H O2 Saturation ABG pH at Pt Temp ABG pCO2 at Pt Temp ABG pO2 at Pt Temp ABG HCO3 ABG Base Excess (Actual) VBG pH VBG pCO2 VBG pO2 VBG HCO3 VBG O2 Saturation VBG Base Excess Sodium Potassium Chloride Carbon Dioxide Anion Gap BUN Creatinine Estim Creat Clear Calc Estimated GFR POC Glucose Random Glucose Fasting Glucose Lactic Acid Calcium Phosphorus Magnesium Iron TIBC % Saturation Unsat Iron Binding Ferritin Total Bilirubin AST ALT Alkaline Phosphatase Ammonia Lactate Dehydrogenase Troponin I High Sens 25.2 B-Natriuretic Peptide Total Protein Albumin PTH Intact Calcium (PTH Intact) Gastric Occult Blood Stool Occult Blood Random Vancomycin C. difficile Tox B Gene COVID-19 (JAS) Negative COVID-19 Clin Com See Note Blood Type Antibody Screen Crossmatch 05/17/22 05/17/22 05/17/22 15:03 16:10 18:23 WBC RBC Hgb Hct MCV MCH MCHC RDW Plt Count MPV Immature Gran % (Auto) Neut % (Auto) Lymph % (Auto) [place] % (Auto) Eos % (Auto) Baso % (Auto) Lymph # (Auto) [place] # (Auto) Eos # (Auto) Baso # (Auto) Abs Immat Gran (auto) Absolute Neuts (auto) Absolute Nucleated RBC Nucleated RBC % (auto) PT INR O2 Saturation ABG pH at Pt Temp ABG pCO2 at Pt Temp ABG pO2 at Pt Temp ABG HCO3 ABG Base Excess (Actual) VBG pH 7.35 VBG pCO2 39 VBG pO2 61 VBG HCO3 21 L VBG O2 Saturation 89.0 VBG Base Excess -3.4 Sodium Potassium Chloride Carbon Dioxide Anion Gap BUN Creatinine Estim Creat Clear Calc Estimated GFR POC Glucose Random Glucose Fasting Glucose Lactic Acid 1.9 Calcium Phosphorus Magnesium Iron TIBC % Saturation Unsat Iron Binding Ferritin Total Bilirubin AST ALT Alkaline Phosphatase Ammonia Lactate Dehydrogenase Troponin I High Sens B-Natriuretic Peptide 1797 H Total Protein Albumin PTH Intact Calcium (PTH Intact) Gastric Occult Blood Stool Occult Blood Random Vancomycin C. difficile Tox B Gene COVID-19 (JAS) [facility] Blood Type Antibody Screen Crossmatch 05/18/22 05/18/22 05/18/22 09:26 11:49 16:00 WBC RBC Hgb Hct MCV MCH MCHC RDW Plt Count MPV Immature Gran % (Auto) Neut % (Auto) Lymph % (Auto) [place] % (Auto) Eos % (Auto) Baso % (Auto) Lymph # (Auto) [place] # (Auto) Eos # (Auto) Baso # (Auto) Abs Immat Gran (auto) Absolute Neuts (auto) Absolute Nucleated RBC Nucleated RBC % (auto) PT INR O2 Saturation ABG pH at Pt Temp ABG pCO2 at Pt Temp ABG pO2 at Pt Temp ABG HCO3 ABG Base Excess (Actual) VBG pH VBG pCO2 VBG pO2 VBG HCO3 VBG O2 Saturation VBG Base Excess Sodium 136 Potassium 4.5 Chloride 108 Carbon Dioxide 20 L Anion Gap 13 BUN 38 H Creatinine 2.40 H Estim Creat Clear Calc 41.3 Estimated GFR 27 POC Glucose 163 H 121 H Random Glucose 153 H Fasting Glucose Lactic Acid Calcium 7.9 L Phosphorus Magnesium Iron TIBC % Saturation Unsat Iron Binding Ferritin Total Bilirubin AST ALT Alkaline Phosphatase Ammonia Lactate Dehydrogenase Troponin I High Sens B-Natriuretic Peptide Total Protein Albumin PTH Intact Calcium (PTH Intact) Gastric Occult Blood Stool Occult Blood Random Vancomycin C. difficile Tox B Gene COVID-19 (JAS) [facility] Blood Type Antibody Screen Crossmatch 05/18/22 05/19/22 05/19/22 20:49 06:24 07:19 WBC RBC Hgb Hct MCV MCH MCHC RDW Plt Count MPV Immature Gran % (Auto) Neut % (Auto) Lymph % (Auto) [place] % (Auto) Eos % (Auto) Baso % (Auto) Lymph # (Auto) [place] # (Auto) Eos # (Auto) Baso # (Auto) Abs Immat Gran (auto) Absolute Neuts (auto) Absolute Nucleated RBC Nucleated RBC % (auto) PT INR O2 Saturation ABG pH at Pt Temp ABG pCO2 at Pt Temp ABG pO2 at Pt Temp ABG HCO3 ABG Base Excess (Actual) VBG pH VBG pCO2 VBG pO2 VBG HCO3 VBG O2 Saturation VBG Base Excess Sodium 136 Potassium 4.5 Chloride 108 Carbon Dioxide 21 L Anion Gap 12 BUN 40 H Creatinine 2.59 H Estim Creat Clear Calc 38.3 Estimated GFR 25 POC Glucose 150 H 120 H Random Glucose 127 H Fasting Glucose Lactic Acid Calcium 7.9 L Phosphorus Magnesium Iron TIBC % Saturation Unsat Iron Binding Ferritin Total Bilirubin AST ALT Alkaline Phosphatase Ammonia Lactate Dehydrogenase Troponin I High Sens B-Natriuretic Peptide Total Protein Albumin PTH Intact Calcium (PTH Intact) Gastric Occult Blood Stool Occult Blood Random Vancomycin C. difficile Tox B Gene COVID-19 (JAS) [facility] Blood Type Antibody Screen Crossmatch 05/19/22 05/19/22 05/19/22 11:05 13:12 15:42 WBC RBC Hgb Hct MCV MCH MCHC RDW Plt Count MPV Immature Gran % (Auto) Neut % (Auto) Lymph % (Auto) [place] % (Auto) Eos % (Auto) Baso % (Auto) Lymph # (Auto) [place] # (Auto) Eos # (Auto) Baso # (Auto) Abs Immat Gran (auto) Absolute Neuts (auto) Absolute Nucleated RBC Nucleated RBC % (auto) PT INR O2 Saturation ABG pH at Pt Temp ABG pCO2 at Pt Temp ABG pO2 at Pt Temp ABG HCO3 ABG Base Excess (Actual) VBG pH VBG pCO2 VBG pO2 VBG HCO3 VBG O2 Saturation VBG Base Excess Sodium Potassium Chloride Carbon Dioxide Anion Gap BUN Creatinine Estim Creat Clear Calc Estimated GFR POC Glucose 130 H 95 Random Glucose Fasting Glucose Lactic Acid Calcium Phosphorus Magnesium Iron TIBC % Saturation Unsat Iron Binding Ferritin Total Bilirubin AST ALT Alkaline Phosphatase Ammonia 57 H Lactate Dehydrogenase Troponin I High Sens B-Natriuretic Peptide Total Protein Albumin PTH Intact Calcium (PTH Intact) Gastric Occult Blood Stool Occult Blood Random Vancomycin C. difficile Tox B Gene COVID-19 (JAS) [facility] Blood Type Antibody Screen Crossmatch 05/19/22 05/19/22 05/19/22 17:39 21:37 21:37 WBC 9.3 RBC 2.28 L Hgb 7.1 L Hct 21.4 L MCV 93.9 MCH 31.1 MCHC 33.2 RDW 18.4 H Plt Count 127 L MPV 10.5 Immature Gran % (Auto) Neut % (Auto) Lymph % (Auto) [place] % (Auto) Eos % (Auto) Baso % (Auto) Lymph # (Auto) [place] # (Auto) Eos # (Auto) Baso # (Auto) Abs Immat Gran (auto) Absolute Neuts (auto) Absolute Nucleated RBC 0.000 Nucleated RBC % (auto) 0.0 PT INR O2 Saturation 96.0 ABG pH at Pt Temp 7.41 ABG pCO2 at Pt Temp 29 L ABG pO2 at Pt Temp 83 ABG HCO3 18 L ABG Base Excess (Actual) -4.8 VBG pH VBG pCO2 VBG pO2 VBG HCO3 VBG O2 Saturation VBG Base Excess Sodium 140 Potassium 4.1 Chloride 108 Carbon Dioxide 22 Anion Gap 14 BUN 44 H Creatinine 2.78 H Estim Creat Clear Calc 35.7 Estimated GFR 23 POC Glucose Random Glucose 129 H Fasting Glucose Lactic Acid Calcium 8.0 L Phosphorus Magnesium Iron TIBC % Saturation Unsat Iron Binding Ferritin Total Bilirubin 1.1 H AST 45 H D ALT 6 Alkaline Phosphatase 106 Ammonia Lactate Dehydrogenase Troponin I High Sens B-Natriuretic Peptide Total Protein 6.4 L Albumin 2.8 L PTH Intact Calcium (PTH Intact) Gastric Occult Blood Stool Occult Blood Random Vancomycin C. difficile Tox B Gene COVID-19 (JAS) COVID-[address] [facility] Blood Type Antibody Screen Crossmatch 05/19/22 05/19/22 05/19/22 21:37 21:37 21:42 WBC RBC Hgb Hct MCV MCH MCHC RDW Plt Count MPV Immature Gran % (Auto) Neut % (Auto) Lymph % (Auto) [place] % (Auto) Eos % (Auto) Baso % (Auto) Lymph # (Auto) [place] # (Auto) Eos # (Auto) Baso # (Auto) Abs Immat Gran (auto) Absolute Neuts (auto) Absolute Nucleated RBC Nucleated RBC % (auto) PT INR O2 Saturation ABG pH at Pt Temp ABG pCO2 at Pt Temp ABG pO2 at Pt Temp ABG HCO3 ABG Base Excess (Actual) VBG pH 7.30 L VBG pCO2 45 VBG pO2 91 VBG HCO3 22 VBG O2 Saturation 98.0 VBG Base Excess -3.2 Sodium Potassium Chloride Carbon Dioxide Anion Gap BUN Creatinine Estim Creat Clear Calc Estimated GFR POC Glucose Random Glucose Fasting Glucose Lactic Acid 1.5 Calcium Phosphorus Magnesium Iron TIBC % Saturation Unsat Iron Binding Ferritin Total Bilirubin AST ALT Alkaline Phosphatase Ammonia 50 Lactate Dehydrogenase Troponin I High Sens B-Natriuretic Peptide Total Protein Albumin PTH Intact Calcium (PTH Intact) Gastric Occult Blood Stool Occult Blood Random Vancomycin C. difficile Tox B Gene COVID-19 (JAS) [employer] [employer] [facility] Blood Type Antibody Screen Crossmatch 05/19/22 05/20/22 05/20/22 22:07 00:48 05:20 WBC 6.5 RBC 1.73 L D Hgb 5.4 L* D Hct 16.3 L* D MCV 94.2 MCH 31.2 MCHC 33.1 RDW 18.6 H Plt Count 69 L D MPV 9.9 Immature Gran % (Auto) 0.3 Neut % (Auto) 76.7 H Lymph % (Auto) 11.8 L [place] % (Auto) 9.3 Eos % (Auto) 1.7 Baso % (Auto) 0.2 Lymph # (Auto) 0.8 L [place] # (Auto) 0.6 Eos # (Auto) 0.1 Baso # (Auto) 0.0 Abs Immat Gran (auto) 0.02 Absolute Neuts (auto) 5.0 Absolute Nucleated RBC 0.000 Nucleated RBC % (auto) 0.0 PT INR O2 Saturation ABG pH at Pt Temp ABG pCO2 at Pt Temp ABG pO2 at Pt Temp ABG HCO3 ABG Base Excess (Actual) VBG pH VBG pCO2 VBG pO2 VBG HCO3 VBG O2 Saturation VBG Base Excess Sodium Potassium Chloride Carbon Dioxide Anion Gap BUN Creatinine Estim Creat Clear Calc Estimated GFR POC Glucose 109 Random Glucose Fasting Glucose Lactic Acid Calcium Phosphorus Magnesium Iron TIBC % Saturation Unsat Iron Binding Ferritin Total Bilirubin AST ALT Alkaline Phosphatase Ammonia Lactate Dehydrogenase Troponin I High Sens 47.0 H D B-Natriuretic Peptide Total Protein Albumin PTH Intact Calcium (PTH Intact) Gastric Occult Blood Stool Occult Blood Random Vancomycin C. difficile Tox B Gene COVID-19 (JAS) [employer] Blood Type Antibody Screen Crossmatch 05/20/22 05/20/22 05/20/22 05:20 05:20 05:25 WBC RBC Hgb Hct MCV MCH MCHC RDW Plt Count MPV Immature Gran % (Auto) Neut % (Auto) Lymph % (Auto) [place] % (Auto) Eos % (Auto) Baso % (Auto) Lymph # (Auto) [place] # (Auto) Eos # (Auto) Baso # (Auto) Abs Immat Gran (auto) Absolute Neuts (auto) Absolute Nucleated RBC Nucleated RBC % (auto) PT INR O2 Saturation ABG pH at Pt Temp ABG pCO2 at Pt Temp ABG pO2 at Pt Temp ABG HCO3 ABG Base Excess (Actual) VBG pH 7.42 VBG pCO2 28 VBG pO2 50 VBG HCO3 18 L VBG O2 Saturation 82.0 VBG Base Excess -4.8 Sodium 139 Potassium 3.9 Chloride 108 Carbon Dioxide 23 Anion Gap 12 BUN 45 H Creatinine 2.68 H Estim Creat Clear Calc 37.3 Estimated GFR 24 POC Glucose Random Glucose 118 H Fasting Glucose Lactic Acid Calcium 7.9 L Phosphorus 5.5 H Magnesium 2.2 Iron TIBC % Saturation Unsat Iron Binding Ferritin Total Bilirubin 0.7 AST 32 ALT 6 Alkaline Phosphatase 74 D Ammonia 29 Lactate Dehydrogenase Troponin I High Sens B-Natriuretic Peptide Total Protein 5.4 L Albumin 2.8 L PTH Intact Calcium (PTH Intact) Gastric Occult Blood Stool Occult Blood Random Vancomycin C. difficile Tox B Gene COVID-19 (JAS) COVID-19 Clin Com Blood Type Antibody Screen Crossmatch 05/20/22 05/20/22 05/20/22 06:07 08:04 11:45 WBC RBC Hgb Hct MCV MCH MCHC RDW Plt Count MPV Immature Gran % (Auto) Neut % (Auto) Lymph % (Auto) [place] % (Auto) Eos % (Auto) Baso % (Auto) Lymph # (Auto) [place] # (Auto) Eos # (Auto) Baso # (Auto) Abs Immat Gran (auto) Absolute Neuts (auto) Absolute Nucleated RBC Nucleated RBC % (auto) PT INR O2 Saturation ABG pH at Pt Temp ABG pCO2 at Pt Temp ABG pO2 at Pt Temp ABG HCO3 ABG Base Excess (Actual) VBG pH VBG pCO2 VBG pO2 VBG HCO3 VBG O2 Saturation VBG Base Excess Sodium Potassium Chloride Carbon Dioxide Anion Gap BUN Creatinine Estim Creat Clear Calc Estimated GFR POC Glucose 114 129 H Random Glucose Fasting Glucose Lactic Acid Calcium Phosphorus Magnesium Iron TIBC % Saturation Unsat Iron Binding Ferritin Total Bilirubin AST ALT Alkaline Phosphatase Ammonia Lactate Dehydrogenase Troponin I High Sens B-Natriuretic Peptide Total Protein Albumin PTH Intact Calcium (PTH Intact) Gastric Occult Blood Stool Occult Blood Random Vancomycin C. difficile Tox B Gene COVID-19 (JAS) COVID-19 Clin Com Blood Type A Positive Antibody Screen NEGATIVE Crossmatch See Detail 05/20/22 05/20/22 05/20/22 13:37 15:53 18:09 WBC RBC Hgb Hct MCV MCH MCHC RDW Plt Count MPV Immature Gran % (Auto) Neut % (Auto) Lymph % (Auto) [place] % (Auto) Eos % (Auto) Baso % (Auto) Lymph # (Auto) [place] # (Auto) Eos # (Auto) Baso # (Auto) Abs Immat Gran (auto) Absolute Neuts (auto) Absolute Nucleated RBC Nucleated RBC % (auto) PT INR O2 Saturation ABG pH at Pt Temp ABG pCO2 at Pt Temp ABG pO2 at Pt Temp ABG HCO3 ABG Base Excess (Actual) VBG pH VBG pCO2 VBG pO2 VBG HCO3 VBG O2 Saturation VBG Base Excess Sodium 140 Potassium 3.9 Chloride 106 Carbon Dioxide 22 Anion Gap 16 BUN 46 H Creatinine 2.75 H Estim Creat Clear Calc 36.4 Estimated GFR 23 POC Glucose 113 Random Glucose 117 H Fasting Glucose Lactic Acid Calcium 8.2 L Phosphorus Magnesium Iron TIBC % Saturation Unsat Iron Binding Ferritin Total Bilirubin AST ALT Alkaline Phosphatase Ammonia Lactate Dehydrogenase Troponin I High Sens B-Natriuretic Peptide Total Protein Albumin PTH Intact Calcium (PTH Intact) Gastric Occult Blood NEGATIVE Stool Occult Blood Random Vancomycin C. difficile Tox B Gene COVID-19 (JAS) COVID-19 Clin Com Blood Type Antibody Screen Crossmatch 05/20/22 05/20/22 05/21/22 18:09 21:18 05:10 WBC 8.1 3.8 L RBC 2.40 L D 2.20 L Hgb 7.5 L D 6.8 L* Hct 22.0 L D 20.4 L* MCV 91.7 92.7 MCH 31.3 30.9 MCHC 34.1 33.3 RDW 18.2 H 18.5 H Plt Count 80 L 51 L D MPV 10.5 10.4 Immature Gran % (Auto) 0.5 H 0.5 H Neut % (Auto) 80.9 H 67.0 Lymph % (Auto) 7.0 L 14.1 L [place] % (Auto) 9.5 10.1 Eos % (Auto) 2.0 8.0 H Baso % (Auto) 0.1 0.3 Lymph # (Auto) 0.6 L 0.5 L [place] # (Auto) 0.8 0.4 Eos # (Auto) 0.2 0.3 Baso # (Auto) 0.0 0.0 Abs Immat Gran (auto) 0.04 H 0.02 Absolute Neuts (auto) 6.6 2.5 Absolute Nucleated RBC 0.000 0.000 Nucleated RBC % (auto) 0.0 0.0 PT INR O2 Saturation ABG pH at Pt Temp ABG pCO2 at Pt Temp ABG pO2 at Pt Temp ABG HCO3 ABG Base Excess (Actual) VBG pH VBG pCO2 VBG pO2 VBG HCO3 VBG O2 Saturation VBG Base Excess Sodium Potassium Chloride Carbon Dioxide Anion Gap BUN Creatinine Estim Creat Clear Calc Estimated GFR POC Glucose 117 H Random Glucose Fasting Glucose Lactic Acid Calcium Phosphorus Magnesium Iron TIBC % Saturation Unsat Iron Binding Ferritin Total Bilirubin AST ALT Alkaline Phosphatase Ammonia Lactate Dehydrogenase Troponin I High Sens B-Natriuretic Peptide Total Protein Albumin PTH Intact Calcium (PTH Intact) Gastric Occult Blood Stool Occult Blood Random Vancomycin C. difficile Tox B Gene COVID-19 (JAS) COVID-19 Clin Com Blood Type Antibody Screen Crossmatch 05/21/22 05/21/22 05/21/22 05:10 05:21 11:44 WBC RBC Hgb Hct MCV MCH MCHC RDW Plt Count MPV Immature Gran % (Auto) Neut % (Auto) Lymph % (Auto) [place] % (Auto) Eos % (Auto) Baso % (Auto) Lymph # (Auto) [place] # (Auto) Eos # (Auto) Baso # (Auto) Abs Immat Gran (auto) Absolute Neuts (auto) Absolute Nucleated RBC Nucleated RBC % (auto) PT INR O2 Saturation ABG pH at Pt Temp ABG pCO2 at Pt Temp ABG pO2 at Pt Temp ABG HCO3 ABG Base Excess (Actual) VBG pH 7.37 VBG pCO2 27 VBG pO2 73 VBG HCO3 16 L VBG O2 Saturation 95.0 VBG Base Excess -7.9 Sodium 140 Potassium 3.7 Chloride 107 Carbon Dioxide 21 L Anion Gap 16 BUN 43 H Creatinine 2.71 H Estim Creat Clear Calc 36.9 Estimated GFR 24 POC Glucose 123 H Random Glucose 127 H Fasting Glucose Lactic Acid Calcium 8.1 L Phosphorus 6.1 H Magnesium 2.1 Iron TIBC % Saturation Unsat Iron Binding Ferritin Total Bilirubin AST ALT Alkaline Phosphatase Ammonia Lactate Dehydrogenase Troponin I High Sens B-Natriuretic Peptide Total Protein Albumin PTH Intact Calcium (PTH Intact) Gastric Occult Blood Stool Occult Blood Random Vancomycin C. difficile Tox B Gene COVID-19 (JAS) COVID-19 [facility] Blood Type Antibody Screen Crossmatch 05/21/22 05/21/22 05/22/22 16:56 18:02 00:15 WBC RBC Hgb Hct MCV MCH MCHC RDW Plt Count MPV Immature Gran % (Auto) Neut % (Auto) Lymph % (Auto) [place] % (Auto) Eos % (Auto) Baso % (Auto) Lymph # (Auto) [place] # (Auto) Eos # (Auto) Baso # (Auto) Abs Immat Gran (auto) Absolute Neuts (auto) Absolute Nucleated RBC Nucleated RBC % (auto) PT INR O2 Saturation ABG pH at Pt Temp ABG pCO2 at Pt Temp ABG pO2 at Pt Temp ABG HCO3 ABG Base Excess (Actual) VBG pH VBG pCO2 VBG pO2 VBG HCO3 VBG O2 Saturation VBG Base Excess Sodium Potassium Chloride Carbon Dioxide Anion Gap BUN Creatinine Estim Creat Clear Calc Estimated GFR POC Glucose 108 107 106 Random Glucose Fasting Glucose Lactic Acid Calcium Phosphorus Magnesium Iron TIBC % Saturation Unsat Iron Binding Ferritin Total Bilirubin AST ALT Alkaline Phosphatase Ammonia Lactate Dehydrogenase Troponin I High Sens B-Natriuretic Peptide Total Protein Albumin PTH Intact Calcium (PTH Intact) Gastric Occult Blood Stool Occult Blood Random Vancomycin C. difficile Tox B Gene COVID-19 (JAS) COVID-19 [facility] Com Blood Type Antibody Screen Crossmatch 05/22/22 05/22/22 05/22/22 05:10 05:10 05:22 WBC 4.1 L RBC 2.39 L Hgb 7.3 L Hct 21.9 L MCV 91.6 MCH 30.5 MCHC 33.3 RDW 18.2 H Plt Count 55 L MPV 10.5 Immature Gran % (Auto) 0.2 Neut % (Auto) 72.7 Lymph % (Auto) 12.8 L [place] % (Auto) 11.6 H Eos % (Auto) 2.5 Baso % (Auto) 0.2 Lymph # (Auto) 0.5 L [place] # (Auto) 0.5 Eos # (Auto) 0.1 Baso # (Auto) 0.0 Abs Immat Gran (auto) 0.01 Absolute Neuts (auto) 2.9 Absolute Nucleated RBC 0.000 Nucleated RBC % (auto) 0.0 PT INR O2 Saturation ABG pH at Pt Temp ABG pCO2 at Pt Temp ABG pO2 at Pt Temp ABG HCO3 ABG Base Excess (Actual) VBG pH 7.43 VBG pCO2 30 VBG pO2 69 VBG HCO3 20 L VBG O2 Saturation 95.0 VBG Base Excess -3.2 Sodium 141 Potassium 3.6 Chloride 108 Carbon Dioxide 21 L Anion Gap 16 BUN 45 H Creatinine 2.95 H Estim Creat Clear Calc 34.5 Estimated GFR 22 POC Glucose Random Glucose 106 Fasting Glucose Lactic Acid Calcium 7.9 L Phosphorus 5.9 H Magnesium 2.2 Iron TIBC % Saturation Unsat Iron Binding Ferritin Total Bilirubin 1.6 H AST 46 H D ALT 8 Alkaline Phosphatase 65 Ammonia Lactate Dehydrogenase Troponin I High Sens B-Natriuretic Peptide Total Protein 5.5 L Albumin 3.1 L PTH Intact Calcium (PTH Intact) Gastric Occult Blood Stool Occult Blood Random Vancomycin C. difficile Tox B Gene COVID-19 (JAS) COVID-19 Clin Com Blood Type Antibody Screen Crossmatch 05/22/22 05/22/22 05/22/22 05:36 12:06 18:03 WBC RBC Hgb Hct MCV MCH MCHC RDW Plt Count MPV Immature Gran % (Auto) Neut % (Auto) Lymph % (Auto) [place] % (Auto) Eos % (Auto) Baso % (Auto) Lymph # (Auto) [place] # (Auto) Eos # (Auto) Baso # (Auto) Abs Immat Gran (auto) Absolute Neuts (auto) Absolute Nucleated RBC Nucleated RBC % (auto) PT INR O2 Saturation ABG pH at Pt Temp ABG pCO2 at Pt Temp ABG pO2 at Pt Temp ABG HCO3 ABG Base Excess (Actual) VBG pH VBG pCO2 VBG pO2 VBG HCO3 VBG O2 Saturation VBG Base Excess Sodium Potassium Chloride Carbon Dioxide Anion Gap BUN Creatinine Estim Creat Clear Calc Estimated GFR POC Glucose 98 125 H 130 H Random Glucose Fasting Glucose Lactic Acid Calcium Phosphorus Magnesium Iron TIBC % Saturation Unsat Iron Binding Ferritin Total Bilirubin AST ALT Alkaline Phosphatase Ammonia Lactate Dehydrogenase Troponin I High Sens B-Natriuretic Peptide Total Protein Albumin PTH Intact Calcium (PTH Intact) Gastric Occult Blood Stool Occult Blood Random Vancomycin C. difficile Tox B Gene COVID-19 (JAS) COVID-19 [facility] Com Blood Type Antibody Screen Crossmatch 05/23/22 05/23/22 05/23/22 00:07 05:25 05:25 WBC 3.7 L RBC 2.50 L Hgb 7.8 L Hct 23.2 L MCV 92.8 MCH 31.2 MCHC 33.6 RDW 18.3 H Plt Count 55 L MPV 10.4 Immature Gran % (Auto) 0.5 H Neut % (Auto) 69.2 Lymph % (Auto) 14.6 L [place] % (Auto) 11.1 H Eos % (Auto) 4.3 H Baso % (Auto) 0.3 Lymph # (Auto) 0.5 L [place] # (Auto) 0.4 Eos # (Auto) 0.2 Baso # (Auto) 0.0 Abs Immat Gran (auto) 0.02 Absolute Neuts (auto) 2.6 Absolute Nucleated RBC 0.000 Nucleated RBC % (auto) 0.0 PT INR O2 Saturation ABG pH at Pt Temp ABG pCO2 at Pt Temp ABG pO2 at Pt Temp ABG HCO3 ABG Base Excess (Actual) VBG pH VBG pCO2 VBG pO2 VBG HCO3 VBG O2 Saturation VBG Base Excess Sodium 143 Potassium 3.2 L Chloride 107 Carbon Dioxide 21 L Anion Gap 18 BUN 50 H Creatinine 3.11 H Estim Creat Clear Calc 32.7 Estimated GFR 20 POC Glucose 107 Random Glucose 124 H Fasting Glucose Lactic Acid Calcium 8.6 D Phosphorus 5.4 H Magnesium 2.2 Iron TIBC % Saturation Unsat Iron Binding Ferritin Total Bilirubin 1.6 H AST 54 H ALT 6 Alkaline Phosphatase 61 Ammonia Lactate Dehydrogenase Troponin I High Sens B-Natriuretic Peptide Total Protein 6.4 L Albumin 3.9 D PTH Intact Calcium (PTH Intact) Gastric Occult Blood Stool Occult Blood Random Vancomycin C. difficile Tox B Gene COVID-19 (JAS) COVID-19 [facility] Com Blood Type Antibody Screen Crossmatch 05/23/22 05/23/22 05/23/22 05:25 05:29 06:02 WBC RBC Hgb Hct MCV MCH MCHC RDW Plt Count MPV Immature Gran % (Auto) Neut % (Auto) Lymph % (Auto) [place] % (Auto) Eos % (Auto) Baso % (Auto) Lymph # (Auto) [place] # (Auto) Eos # (Auto) Baso # (Auto) Abs Immat Gran (auto) Absolute Neuts (auto) Absolute Nucleated RBC Nucleated RBC % (auto) PT INR O2 Saturation ABG pH at Pt Temp ABG pCO2 at Pt Temp ABG pO2 at Pt Temp ABG HCO3 ABG Base Excess (Actual) VBG pH 7.41 VBG pCO2 34 VBG pO2 53 VBG HCO3 22 VBG O2 Saturation 81.0 VBG Base Excess -1.6 Sodium Potassium Chloride Carbon Dioxide Anion Gap BUN Creatinine Estim Creat Clear Calc Estimated GFR POC Glucose 115 Random Glucose Fasting Glucose Lactic Acid Calcium Phosphorus Magnesium Iron TIBC % Saturation Unsat Iron Binding Ferritin Total Bilirubin AST ALT Alkaline Phosphatase Ammonia 25 Lactate Dehydrogenase Troponin I High Sens B-Natriuretic Peptide Total Protein Albumin PTH Intact Calcium (PTH Intact) Gastric Occult Blood Stool Occult Blood Random Vancomycin C. difficile Tox B Gene COVID-19 (JAS) COVID-19 Clin Com Blood Type Antibody Screen Crossmatch 05/23/22 05/23/22 05/23/22 13:56 14:47 17:25 WBC RBC Hgb Hct MCV MCH MCHC RDW Plt Count MPV Immature Gran % (Auto) Neut % (Auto) Lymph % (Auto) [place] % (Auto) Eos % (Auto) Baso % (Auto) Lymph # (Auto) [place] # (Auto) Eos # (Auto) Baso # (Auto) Abs Immat Gran (auto) Absolute Neuts (auto) Absolute Nucleated RBC Nucleated RBC % (auto) PT INR O2 Saturation ABG pH at Pt Temp ABG pCO2 at Pt Temp ABG pO2 at Pt Temp ABG HCO3 ABG Base Excess (Actual) VBG pH VBG pCO2 VBG pO2 VBG HCO3 VBG O2 Saturation VBG Base Excess Sodium Potassium Chloride Carbon Dioxide Anion Gap BUN Creatinine Estim Creat Clear Calc Estimated GFR POC Glucose 117 H 114 Random Glucose Fasting Glucose Lactic Acid Calcium Phosphorus Magnesium Iron TIBC % Saturation Unsat Iron Binding Ferritin Total Bilirubin AST ALT Alkaline Phosphatase Ammonia Lactate Dehydrogenase Troponin I High Sens B-Natriuretic Peptide Total Protein Albumin PTH Intact Calcium (PTH Intact) Gastric Occult Blood Stool Occult Blood NEGATIVE Random Vancomycin C. difficile Tox B Gene COVID-19 (JAS) COVID-[address] [facility] Blood Type Antibody Screen Crossmatch 05/24/22 05/24/22 05/24/22 00:34 05:30 05:30 WBC 3.2 L RBC 2.23 L Hgb 7.0 L* Hct 21.0 L* MCV 94.2 MCH 31.4 MCHC 33.3 RDW 18.5 H Plt Count 45 L MPV 10.5 Immature Gran % (Auto) Neut % (Auto) Lymph % (Auto) [place] % (Auto) Eos % (Auto) Baso % (Auto) Lymph # (Auto) [place] # (Auto) Eos # (Auto) Baso # (Auto) Abs Immat Gran (auto) Absolute Neuts (auto) Absolute Nucleated RBC 0.000 Nucleated RBC % (auto) 0.0 PT 15.8 H INR 1.4 H O2 Saturation ABG pH at Pt Temp ABG pCO2 at Pt Temp ABG pO2 at Pt Temp ABG HCO3 ABG Base Excess (Actual) VBG pH VBG pCO2 VBG pO2 VBG HCO3 VBG O2 Saturation VBG Base Excess Sodium Potassium Chloride Carbon Dioxide Anion Gap BUN Creatinine Estim Creat Clear Calc Estimated GFR POC Glucose 111 Random Glucose Fasting Glucose Lactic Acid Calcium Phosphorus Magnesium Iron TIBC % Saturation Unsat Iron Binding Ferritin Total Bilirubin AST ALT Alkaline Phosphatase Ammonia Lactate Dehydrogenase Troponin I High Sens B-Natriuretic Peptide Total Protein Albumin PTH Intact Calcium (PTH Intact) Gastric Occult Blood Stool Occult Blood Random Vancomycin C. difficile Tox B Gene COVID-19 (JAS) COVID-[address] [facility] Blood Type Antibody Screen Crossmatch 05/24/22 05/24/22 05/24/22 05:30 05:30 05:37 WBC RBC Hgb Hct MCV MCH MCHC RDW Plt Count MPV Immature Gran % (Auto) Neut % (Auto) Lymph % (Auto) [place] % (Auto) Eos % (Auto) Baso % (Auto) Lymph # (Auto) [place] # (Auto) Eos # (Auto) Baso # (Auto) Abs Immat Gran (auto) Absolute Neuts (auto) Absolute Nucleated RBC Nucleated RBC % (auto) PT INR O2 Saturation ABG pH at Pt Temp ABG pCO2 at Pt Temp ABG pO2 at Pt Temp ABG HCO3 ABG Base Excess (Actual) VBG pH VBG pCO2 VBG pO2 VBG HCO3 VBG O2 Saturation VBG Base Excess Sodium 142 Potassium 3.5 Chloride 109 H Carbon Dioxide 20 L Anion Gap 17 BUN 49 H Creatinine 2.99 H Estim Creat Clear Calc 34.0 Estimated GFR 21 POC Glucose 144 H Random Glucose 160 H Fasting Glucose Lactic Acid Calcium 8.1 L Phosphorus 5.6 H Magnesium 2.1 Iron TIBC % Saturation Unsat Iron Binding Ferritin Total Bilirubin AST ALT Alkaline Phosphatase Ammonia Lactate Dehydrogenase Troponin I High Sens B-Natriuretic Peptide 1882 H Total Protein Albumin PTH Intact Calcium (PTH Intact) Gastric Occult Blood Stool Occult Blood Random Vancomycin C. difficile Tox B Gene COVID-19 (JAS) COVIDSyncano19 [employer] [employer] [facility] Blood Type Antibody Screen Crossmatch 05/24/22 05/24/22 05/24/22 05:39 06:11 11:12 WBC RBC Hgb Hct MCV MCH MCHC RDW Plt Count MPV Immature Gran % (Auto) Neut % (Auto) Lymph % (Auto) [place] % (Auto) Eos % (Auto) Baso % (Auto) Lymph # (Auto) [place] # (Auto) Eos # (Auto) Baso # (Auto) Abs Immat Gran (auto) Absolute Neuts (auto) Absolute Nucleated RBC Nucleated RBC % (auto) PT INR O2 Saturation ABG pH at Pt Temp ABG pCO2 at Pt Temp ABG pO2 at Pt Temp ABG HCO3 ABG Base Excess (Actual) VBG pH 7.38 VBG pCO2 34 VBG pO2 58 VBG HCO3 20 L VBG O2 Saturation 88.0 VBG Base Excess -3.9 Sodium Potassium Chloride Carbon Dioxide Anion Gap BUN Creatinine Estim Creat Clear Calc Estimated GFR POC Glucose 177 H Random Glucose Fasting Glucose Lactic Acid Calcium Phosphorus Magnesium Iron TIBC % Saturation Unsat Iron Binding Ferritin Total Bilirubin AST ALT Alkaline Phosphatase Ammonia Lactate Dehydrogenase Troponin I High Sens B-Natriuretic Peptide Total Protein Albumin PTH Intact Calcium (PTH Intact) Gastric Occult Blood Stool Occult Blood Random Vancomycin C. difficile Tox B Gene COVID-19 (JAS) COVID-19 [facility] Com Blood Type A Positive Antibody Screen NEGATIVE Crossmatch See Detail 05/24/22 05/24/22 05/24/22 12:53 18:02 23:29 WBC RBC Hgb 7.9 L Hct 24.2 L MCV MCH MCHC RDW Plt Count MPV Immature Gran % (Auto) Neut % (Auto) Lymph % (Auto) [place] % (Auto) Eos % (Auto) Baso % (Auto) Lymph # (Auto) [place] # (Auto) Eos # (Auto) Baso # (Auto) Abs Immat Gran (auto) Absolute Neuts (auto) Absolute Nucleated RBC Nucleated RBC % (auto) PT INR O2 Saturation ABG pH at Pt Temp ABG pCO2 at Pt Temp ABG pO2 at Pt Temp ABG HCO3 ABG Base Excess (Actual) VBG pH VBG pCO2 VBG pO2 VBG HCO3 VBG O2 Saturation VBG Base Excess Sodium Potassium Chloride Carbon Dioxide Anion Gap BUN Creatinine Estim Creat Clear Calc Estimated GFR POC Glucose 190 H 184 H Random Glucose Fasting Glucose Lactic Acid Calcium Phosphorus Magnesium Iron TIBC % Saturation Unsat Iron Binding Ferritin Total Bilirubin AST ALT Alkaline Phosphatase Ammonia Lactate Dehydrogenase Troponin I High Sens B-Natriuretic Peptide Total Protein Albumin PTH Intact Calcium (PTH Intact) Gastric Occult Blood Stool Occult Blood Random Vancomycin C. difficile Tox B Gene COVID-19 (JAS) COVID-19 Clin Com Blood Type Antibody Screen Crossmatch 05/25/22 05/25/22 05/25/22 05:10 05:10 05:10 WBC 4.2 L RBC 2.54 L Hgb 7.9 L Hct 23.6 L MCV 92.9 MCH 31.1 MCHC 33.5 RDW 18.2 H Plt Count 51 L MPV 10.7 Immature Gran % (Auto) Neut % (Auto) Lymph % (Auto) [place] % (Auto) Eos % (Auto) Baso % (Auto) Lymph # (Auto) [place] # (Auto) Eos # (Auto) Baso # (Auto) Abs Immat Gran (auto) Absolute Neuts (auto) Absolute Nucleated RBC 0.000 Nucleated RBC % (auto) 0.0 PT INR O2 Saturation ABG pH at Pt Temp ABG pCO2 at Pt Temp ABG pO2 at Pt Temp ABG HCO3 ABG Base Excess (Actual) VBG pH VBG pCO2 VBG pO2 VBG HCO3 VBG O2 Saturation VBG Base Excess Sodium 145 Potassium 3.7 Chloride 109 H Carbon Dioxide 25 Anion Gap 15 BUN 51 H Creatinine 2.91 H Estim Creat Clear Calc 34.3 Estimated GFR 22 POC Glucose Random Glucose 218 H D Fasting Glucose Lactic Acid Calcium 8.3 L Phosphorus 4.1 Magnesium 2.1 Iron TIBC % Saturation Unsat Iron Binding Ferritin Total Bilirubin 1.7 H AST 57 H ALT < 6 Alkaline Phosphatase 59 Ammonia 31 Lactate Dehydrogenase Troponin I High Sens B-Natriuretic Peptide Total Protein 5.8 L Albumin 3.2 L PTH Intact Calcium (PTH Intact) Gastric Occult Blood Stool Occult Blood Random Vancomycin C. difficile Tox B Gene COVID-19 (JAS) COVID-19 [facility] Blood Type Antibody Screen Crossmatch 05/25/22 05/25/22 05/25/22 05:15 05:49 11:42 WBC RBC Hgb Hct MCV MCH MCHC RDW Plt Count MPV Immature Gran % (Auto) Neut % (Auto) Lymph % (Auto) [place] % (Auto) Eos % (Auto) Baso % (Auto) Lymph # (Auto) [place] # (Auto) Eos # (Auto) Baso # (Auto) Abs Immat Gran (auto) Absolute Neuts (auto) Absolute Nucleated RBC Nucleated RBC % (auto) PT INR O2 Saturation ABG pH at Pt Temp ABG pCO2 at Pt Temp ABG pO2 at Pt Temp ABG HCO3 ABG Base Excess (Actual) VBG pH 7.47 H VBG pCO2 35 VBG pO2 55 VBG HCO3 26 VBG O2 Saturation 85.0 VBG Base Excess 2.6 Sodium Potassium Chloride Carbon Dioxide Anion Gap BUN Creatinine Estim Creat Clear Calc Estimated GFR POC Glucose 197 H 189 H Random Glucose Fasting Glucose Lactic Acid Calcium Phosphorus Magnesium Iron TIBC % Saturation Unsat Iron Binding Ferritin Total Bilirubin AST ALT Alkaline Phosphatase Ammonia Lactate Dehydrogenase Troponin I High Sens B-Natriuretic Peptide Total Protein Albumin PTH Intact Calcium (PTH Intact) Gastric Occult Blood Stool Occult Blood Random Vancomycin C. difficile Tox B Gene COVID-19 (JAS) COVID-19 [facility] Blood Type Antibody Screen Crossmatch 05/25/22 05/26/22 05/26/22 17:32 01:20 05:05 WBC RBC Hgb Hct MCV MCH MCHC RDW Plt Count MPV Immature Gran % (Auto) Neut % (Auto) Lymph % (Auto) [place] % (Auto) Eos % (Auto) Baso % (Auto) Lymph # (Auto) [place] # (Auto) Eos # (Auto) Baso # (Auto) Abs Immat Gran (auto) Absolute Neuts (auto) Absolute Nucleated RBC Nucleated RBC % (auto) PT INR O2 Saturation ABG pH at Pt Temp ABG pCO2 at Pt Temp ABG pO2 at Pt Temp ABG HCO3 ABG Base Excess (Actual) VBG pH VBG pCO2 VBG pO2 VBG HCO3 VBG O2 Saturation VBG Base Excess Sodium Potassium Chloride Carbon Dioxide Anion Gap BUN Creatinine Estim Creat Clear Calc Estimated GFR POC Glucose 204 H 234 H Random Glucose Fasting Glucose Lactic Acid Calcium Phosphorus Magnesium Iron TIBC % Saturation Unsat Iron Binding Ferritin Total Bilirubin AST ALT Alkaline Phosphatase Ammonia Lactate Dehydrogenase Troponin I High Sens B-Natriuretic Peptide 3024 H Total Protein Albumin PTH Intact Calcium (PTH Intact) Gastric Occult Blood Stool Occult Blood Random Vancomycin C. difficile Tox B Gene COVID-19 (JAS) COVID-19 Clin Com Blood Type Antibody Screen Crossmatch 05/26/22 05/26/22 05/26/22 05:05 05:05 05:16 WBC 3.9 L RBC 2.43 L Hgb 7.5 L Hct 22.8 L MCV 93.8 MCH 30.9 MCHC 32.9 RDW 18.0 H Plt Count 46 L MPV 10.4 Immature Gran % (Auto) Neut % (Auto) Lymph % (Auto) [place] % (Auto) Eos % (Auto) Baso % (Auto) Lymph # (Auto) [place] # (Auto) Eos # (Auto) Baso # (Auto) Abs Immat Gran (auto) Absolute Neuts (auto) Absolute Nucleated RBC 0.000 Nucleated RBC % (auto) 0.0 PT INR O2 Saturation ABG pH at Pt Temp ABG pCO2 at Pt Temp ABG pO2 at Pt Temp ABG HCO3 ABG Base Excess (Actual) VBG pH 7.48 H VBG pCO2 40 VBG pO2 43 VBG HCO3 31 H VBG O2 Saturation 72.0 VBG Base Excess 7.3 Sodium 146 H Potassium 3.6 Chloride 108 Carbon Dioxide 27 Anion Gap 15 BUN 52 H Creatinine 2.81 H Estim Creat Clear Calc 35.5 Estimated GFR 23 POC Glucose Random Glucose 266 H Fasting Glucose Lactic Acid Calcium 8.2 L Phosphorus 3.7 Magnesium 2.0 Iron TIBC % Saturation Unsat Iron Binding Ferritin Total Bilirubin 1.6 H AST 48 H ALT 6 Alkaline Phosphatase 50 Ammonia Lactate Dehydrogenase Troponin I High Sens B-Natriuretic Peptide Total Protein 5.5 L Albumin 3.0 L PTH Intact Calcium (PTH Intact) Gastric Occult Blood Stool Occult Blood Random Vancomycin C. difficile Tox B Gene COVID-19 (JAS) COVID-19 Clin Com Blood Type Antibody Screen Crossmatch 05/26/22 05/26/22 05/26/22 06:18 11:27 12:02 WBC RBC Hgb Hct MCV MCH MCHC RDW Plt Count MPV Immature Gran % (Auto) Neut % (Auto) Lymph % (Auto) [place] % (Auto) Eos % (Auto) Baso % (Auto) Lymph # (Auto) [place] # (Auto) Eos # (Auto) Baso # (Auto) Abs Immat Gran (auto) Absolute Neuts (auto) Absolute Nucleated RBC Nucleated RBC % (auto) PT INR O2 Saturation ABG pH at Pt Temp ABG pCO2 at Pt Temp ABG pO2 at Pt Temp ABG HCO3 ABG Base Excess (Actual) VBG pH VBG pCO2 VBG pO2 VBG HCO3 VBG O2 Saturation VBG Base Excess Sodium Potassium Chloride Carbon Dioxide Anion Gap BUN Creatinine Estim Creat Clear Calc Estimated GFR POC Glucose 224 H 182 H Random Glucose Fasting Glucose Lactic Acid Calcium Phosphorus Magnesium Iron TIBC % Saturation Unsat Iron Binding Ferritin Total Bilirubin AST ALT Alkaline Phosphatase Ammonia Lactate Dehydrogenase Troponin I High Sens 102.4 H* D B-Natriuretic Peptide Total Protein Albumin PTH Intact Calcium (PTH Intact) Gastric Occult Blood Stool Occult Blood Random Vancomycin C. difficile Tox B Gene COVID-19 (JAS) COVID-19 [facility] Blood Type Antibody Screen Crossmatch 05/26/22 05/26/22 05/26/22 14:14 17:44 23:56 WBC RBC Hgb Hct MCV MCH MCHC RDW Plt Count MPV Immature Gran % (Auto) Neut % (Auto) Lymph % (Auto) [place] % (Auto) Eos % (Auto) Baso % (Auto) Lymph # (Auto) [place] # (Auto) Eos # (Auto) Baso # (Auto) Abs Immat Gran (auto) Absolute Neuts (auto) Absolute Nucleated RBC Nucleated RBC % (auto) PT INR O2 Saturation ABG pH at Pt Temp ABG pCO2 at Pt Temp ABG pO2 at Pt Temp ABG HCO3 ABG Base Excess (Actual) VBG pH VBG pCO2 VBG pO2 VBG HCO3 VBG O2 Saturation VBG Base Excess Sodium Potassium Chloride Carbon Dioxide Anion Gap BUN Creatinine Estim Creat Clear Calc Estimated GFR POC Glucose 172 H 150 H Random Glucose Fasting Glucose Lactic Acid Calcium Phosphorus Magnesium Iron TIBC % Saturation Unsat Iron Binding Ferritin Total Bilirubin AST ALT Alkaline Phosphatase Ammonia Lactate Dehydrogenase Troponin I High Sens 91.3 H B-Natriuretic Peptide Total Protein Albumin PTH Intact Calcium (PTH Intact) Gastric Occult Blood Stool Occult Blood Random Vancomycin C. difficile Tox B Gene COVID-19 (JAS) COVIDRadiojar [facility] Blood Type Antibody Screen Crossmatch 05/27/22 05/27/22 05/27/22 05:40 05:40 05:40 WBC 5.7 RBC 2.66 L Hgb 8.3 L Hct 25.1 L MCV 94.4 MCH 31.2 MCHC 33.1 RDW 18.1 H Plt Count 71 L D MPV 10.9 Immature Gran % (Auto) Neut % (Auto) Lymph % (Auto) [place] % (Auto) Eos % (Auto) Baso % (Auto) Lymph # (Auto) [place] # (Auto) Eos # (Auto) Baso # (Auto) Abs Immat Gran (auto) Absolute Neuts (auto) Absolute Nucleated RBC 0.000 Nucleated RBC % (auto) 0.0 PT INR O2 Saturation ABG pH at Pt Temp ABG pCO2 at Pt Temp ABG pO2 at Pt Temp ABG HCO3 ABG Base Excess (Actual) VBG pH VBG pCO2 VBG pO2 VBG HCO3 VBG O2 Saturation VBG Base Excess Sodium 149 H Potassium 3.3 Chloride 107 Carbon Dioxide 31 H Anion Gap 14 BUN 57 H Creatinine 2.70 H Estim Creat Clear Calc 35.4 Estimated GFR 24 POC Glucose Random Glucose 181 H Fasting Glucose Lactic Acid Calcium 8.7 D Phosphorus 4.1 Magnesium 1.8 Iron TIBC % Saturation Unsat Iron Binding Ferritin Total Bilirubin AST ALT Alkaline Phosphatase Ammonia 27 Lactate Dehydrogenase Troponin I High Sens B-Natriuretic Peptide Total Protein Albumin 3.0 L PTH Intact Calcium (PTH Intact) Gastric Occult Blood Stool Occult Blood Random Vancomycin C. difficile Tox B Gene COVID-19 (JAS) COVID-[address] [facility] Blood Type Antibody Screen Crossmatch 05/27/22 05/27/22 05/27/22 05:40 05:44 06:07 WBC RBC Hgb Hct MCV MCH MCHC RDW Plt Count MPV Immature Gran % (Auto) Neut % (Auto) Lymph % (Auto) [place] % (Auto) Eos % (Auto) Baso % (Auto) Lymph # (Auto) [place] # (Auto) Eos # (Auto) Baso # (Auto) Abs Immat Gran (auto) Absolute Neuts (auto) Absolute Nucleated RBC Nucleated RBC % (auto) PT 14.3 H INR 1.2 H O2 Saturation TNP ABG pH at Pt Temp TNP ABG pCO2 at Pt Temp TNP ABG pO2 at Pt Temp TNP ABG HCO3 TNP ABG Base Excess (Actual) TNP VBG pH 7.50 H VBG pCO2 44 VBG pO2 53 VBG HCO3 35 H VBG O2 Saturation 83.0 VBG Base Excess 11.1 Sodium Potassium Chloride Carbon Dioxide Anion Gap BUN Creatinine Estim Creat Clear Calc Estimated GFR POC Glucose 155 H Random Glucose Fasting Glucose Lactic Acid Calcium Phosphorus Magnesium Iron TIBC % Saturation Unsat Iron Binding Ferritin Total Bilirubin AST ALT Alkaline Phosphatase Ammonia Lactate Dehydrogenase Troponin I High Sens B-Natriuretic Peptide Total Protein Albumin PTH Intact Calcium (PTH Intact) Gastric Occult Blood Stool Occult Blood Random Vancomycin C. difficile Tox B Gene COVID-19 (JAS) [facility] Blood Type Antibody Screen Crossmatch 05/27/22 05/27/22 05/27/22 12:12 16:31 21:10 WBC RBC Hgb Hct MCV MCH MCHC RDW Plt Count MPV Immature Gran % (Auto) Neut % (Auto) Lymph % (Auto) [place] % (Auto) Eos % (Auto) Baso % (Auto) Lymph # (Auto) [place] # (Auto) Eos # (Auto) Baso # (Auto) Abs Immat Gran (auto) Absolute Neuts (auto) Absolute Nucleated RBC Nucleated RBC % (auto) PT INR O2 Saturation ABG pH at Pt Temp ABG pCO2 at Pt Temp ABG pO2 at Pt Temp ABG HCO3 ABG Base Excess (Actual) VBG pH VBG pCO2 VBG pO2 VBG HCO3 VBG O2 Saturation VBG Base Excess Sodium Potassium Chloride Carbon Dioxide Anion Gap BUN Creatinine Estim Creat Clear Calc Estimated GFR POC Glucose 144 H 137 H 140 H Random Glucose Fasting Glucose Lactic Acid Calcium Phosphorus Magnesium Iron TIBC % Saturation Unsat Iron Binding Ferritin Total Bilirubin AST ALT Alkaline Phosphatase Ammonia Lactate Dehydrogenase Troponin I High Sens B-Natriuretic Peptide Total Protein Albumin PTH Intact Calcium (PTH Intact) Gastric Occult Blood Stool Occult Blood Random Vancomycin C. difficile Tox B Gene COVID-19 (JAS) COVID-19 [facility] Blood Type Antibody Screen Crossmatch 05/28/22 05/28/22 05/28/22 05:34 05:38 05:38 WBC RBC Hgb Hct MCV MCH MCHC RDW Plt Count MPV Immature Gran % (Auto) Neut % (Auto) Lymph % (Auto) [place] % (Auto) Eos % (Auto) Baso % (Auto) Lymph # (Auto) [place] # (Auto) Eos # (Auto) Baso # (Auto) Abs Immat Gran (auto) Absolute Neuts (auto) Absolute Nucleated RBC Nucleated RBC % (auto) PT INR O2 Saturation ABG pH at Pt Temp ABG pCO2 at Pt Temp ABG pO2 at Pt Temp ABG HCO3 ABG Base Excess (Actual) VBG pH 7.53 H VBG pCO2 46 VBG pO2 56 VBG HCO3 39 H VBG O2 Saturation 87.0 VBG Base Excess 15.4 Sodium 149 H Potassium 3.4 Chloride 104 Carbon Dioxide 33 H Anion Gap 15 BUN 60 H Creatinine 2.68 H Estim Creat Clear Calc 35.7 Estimated GFR 24 POC Glucose Random Glucose 150 H Fasting Glucose Lactic Acid Calcium 8.8 Phosphorus 4.4 Magnesium 2.0 Iron TIBC % Saturation Unsat Iron Binding Ferritin Total Bilirubin AST ALT Alkaline Phosphatase Ammonia Lactate Dehydrogenase Troponin I High Sens B-Natriuretic Peptide 2539 H Total Protein Albumin PTH Intact Calcium (PTH Intact) Gastric Occult Blood Stool Occult Blood Random Vancomycin C. difficile Tox B Gene COVID-19 (JAS) COVID-19 Clin Com Blood Type Antibody Screen Crossmatch 05/28/22 05/28/22 05/28/22 08:10 11:30 15:57 WBC RBC Hgb Hct MCV MCH MCHC RDW Plt Count MPV Immature Gran % (Auto) Neut % (Auto) Lymph % (Auto) [place] % (Auto) Eos % (Auto) Baso % (Auto) Lymph # (Auto) [place] # (Auto) Eos # (Auto) Baso # (Auto) Abs Immat Gran (auto) Absolute Neuts (auto) Absolute Nucleated RBC Nucleated RBC % (auto) PT INR O2 Saturation ABG pH at Pt Temp ABG pCO2 at Pt Temp ABG pO2 at Pt Temp ABG HCO3 ABG Base Excess (Actual) VBG pH VBG pCO2 VBG pO2 VBG HCO3 VBG O2 Saturation VBG Base Excess Sodium Potassium Chloride Carbon Dioxide Anion Gap BUN Creatinine Estim Creat Clear Calc Estimated GFR POC Glucose 133 H 138 H 176 H Random Glucose Fasting Glucose Lactic Acid Calcium Phosphorus Magnesium Iron TIBC % Saturation Unsat Iron Binding Ferritin Total Bilirubin AST ALT Alkaline Phosphatase Ammonia Lactate Dehydrogenase Troponin I High Sens B-Natriuretic Peptide Total Protein Albumin PTH Intact Calcium (PTH Intact) Gastric Occult Blood Stool Occult Blood Random Vancomycin C. difficile Tox B Gene COVID-19 (JAS) COVID-19 [facility] Blood Type Antibody Screen Crossmatch 05/28/22 05/29/22 05/29/22 20:24 06:35 06:36 WBC 6.7 RBC 2.82 L Hgb 8.7 L Hct 26.6 L MCV 94.3 MCH 30.9 MCHC 32.7 RDW 17.1 H Plt Count 101 L D MPV 11.2 Immature Gran % (Auto) Neut % (Auto) Lymph % (Auto) [place] % (Auto) Eos % (Auto) Baso % (Auto) Lymph # (Auto) [place] # (Auto) Eos # (Auto) Baso # (Auto) Abs Immat Gran (auto) Absolute Neuts (auto) Absolute Nucleated RBC 0.000 Nucleated RBC % (auto) 0.0 PT INR O2 Saturation ABG pH at Pt Temp ABG pCO2 at Pt Temp ABG pO2 at Pt Temp ABG HCO3 ABG Base Excess (Actual) VBG pH VBG pCO2 VBG pO2 VBG HCO3 VBG O2 Saturation VBG Base Excess Sodium Potassium Chloride Carbon Dioxide Anion Gap BUN Creatinine Estim Creat Clear Calc Estimated GFR POC Glucose 178 H Random Glucose Fasting Glucose Lactic Acid Calcium Phosphorus Magnesium Iron TIBC % Saturation Unsat Iron Binding Ferritin Total Bilirubin AST ALT Alkaline Phosphatase Ammonia 59 H Lactate Dehydrogenase Troponin I High Sens B-Natriuretic Peptide Total Protein Albumin PTH Intact Calcium (PTH Intact) Gastric Occult Blood Stool Occult Blood Random Vancomycin C. difficile Tox B Gene COVID-19 (JAS) COVID-19 [facility] Blood Type Antibody Screen Crossmatch 05/29/22 05/29/22 05/29/22 06:36 06:43 07:49 WBC RBC Hgb Hct MCV MCH MCHC RDW Plt Count MPV Immature Gran % (Auto) Neut % (Auto) Lymph % (Auto) [place] % (Auto) Eos % (Auto) Baso % (Auto) Lymph # (Auto) [place] # (Auto) Eos # (Auto) Baso # (Auto) Abs Immat Gran (auto) Absolute Neuts (auto) Absolute Nucleated RBC Nucleated RBC % (auto) PT INR O2 Saturation ABG pH at Pt Temp ABG pCO2 at Pt Temp ABG pO2 at Pt Temp ABG HCO3 ABG Base Excess (Actual) VBG pH 7.54 H VBG pCO2 28 VBG pO2 154 VBG HCO3 24 VBG O2 Saturation 100.0 VBG Base Excess 2.5 Sodium 150 H Potassium 3.7 Chloride 105 Carbon Dioxide 34 H Anion Gap 15 BUN 64 H Creatinine 2.71 H Estim Creat Clear Calc 33.5 Estimated GFR 24 POC Glucose 222 H Random Glucose 273 H D Fasting Glucose Lactic Acid Calcium 9.2 Phosphorus 3.9 Magnesium 2.1 Iron TIBC % Saturation Unsat Iron Binding Ferritin Total Bilirubin 1.5 H AST 30 ALT 9 Alkaline Phosphatase 56 Ammonia Lactate Dehydrogenase Troponin I High Sens B-Natriuretic Peptide Total Protein 5.9 L Albumin 3.0 L PTH Intact Calcium (PTH Intact) Gastric Occult Blood Stool Occult Blood Random Vancomycin C. difficile Tox B Gene COVID-19 (AJS) [facility]Sync[facility] Blood Type Antibody Screen Crossmatch 05/29/22 05/29/22 05/29/22 11:27 16:02 20:06 WBC RBC Hgb Hct MCV MCH MCHC RDW Plt Count MPV Immature Gran % (Auto) Neut % (Auto) Lymph % (Auto) [place] % (Auto) Eos % (Auto) Baso % (Auto) Lymph # (Auto) [place] # (Auto) Eos # (Auto) Baso # (Auto) Abs Immat Gran (auto) Absolute Neuts (auto) Absolute Nucleated RBC Nucleated RBC % (auto) PT INR O2 Saturation ABG pH at Pt Temp ABG pCO2 at Pt Temp ABG pO2 at Pt Temp ABG HCO3 ABG Base Excess (Actual) VBG pH VBG pCO2 VBG pO2 VBG HCO3 VBG O2 Saturation VBG Base Excess Sodium Potassium Chloride Carbon Dioxide Anion Gap BUN Creatinine Estim Creat Clear Calc Estimated GFR POC Glucose 184 H 210 H 227 H Random Glucose Fasting Glucose Lactic Acid Calcium Phosphorus Magnesium Iron TIBC % Saturation Unsat Iron Binding Ferritin Total Bilirubin AST ALT Alkaline Phosphatase Ammonia Lactate Dehydrogenase Troponin I High Sens B-Natriuretic Peptide Total Protein Albumin PTH Intact Calcium (PTH Intact) Gastric Occult Blood Stool Occult Blood Random Vancomycin C. difficile Tox B Gene COVID-19 (JAS) COVID-19 [facility] [employer] [facility] Blood Type Antibody Screen Crossmatch 07/17/22 07/18/22 07/18/22 22:39 07:29 10:37 WBC RBC Hgb Hct MCV MCH MCHC RDW Plt Count MPV Immature Gran % (Auto) Neut % (Auto) Lymph % (Auto) [place] % (Auto) Eos % (Auto) Baso % (Auto) Lymph # (Auto) [place] # (Auto) Eos # (Auto) Baso # (Auto) Abs Immat Gran (auto) Absolute Neuts (auto) Absolute Nucleated RBC Nucleated RBC % (auto) PT INR O2 Saturation ABG pH at Pt Temp ABG pCO2 at Pt Temp ABG pO2 at Pt Temp ABG HCO3 ABG Base Excess (Actual) VBG pH VBG pCO2 VBG pO2 VBG HCO3 VBG O2 Saturation VBG Base Excess Sodium 153 H Potassium 3.2 L Chloride 107 Carbon Dioxide 35 H Anion Gap 14 BUN 66 H Creatinine 2.64 H Estim Creat Clear Calc 34.4 Estimated GFR 25 POC Glucose 247 H 173 H Random Glucose 204 H Fasting Glucose Lactic Acid Calcium 9.2 Phosphorus Magnesium Iron TIBC % Saturation Unsat Iron Binding Ferritin Total Bilirubin AST ALT Alkaline Phosphatase Ammonia Lactate Dehydrogenase Troponin I High Sens B-Natriuretic Peptide Total Protein Albumin PTH Intact Calcium (PTH Intact) Gastric Occult Blood Stool Occult Blood Random Vancomycin C. difficile Tox B Gene COVID-19 (JAS) COVID-19 Clin Com Blood Type Antibody Screen Crossmatch 05/30/22 05/30/22 05/30/22 10:37 11:26 16:13 WBC RBC Hgb Hct MCV MCH MCHC RDW Plt Count MPV Immature Gran % (Auto) Neut % (Auto) Lymph % (Auto) [place] % (Auto) Eos % (Auto) Baso % (Auto) Lymph # (Auto) [place] # (Auto) Eos # (Auto) Baso # (Auto) Abs Immat Gran (auto) Absolute Neuts (auto) Absolute Nucleated RBC Nucleated RBC % (auto) PT INR O2 Saturation ABG pH at Pt Temp ABG pCO2 at Pt Temp ABG pO2 at Pt Temp ABG HCO3 ABG Base Excess (Actual) VBG pH VBG pCO2 VBG pO2 VBG HCO3 VBG O2 Saturation VBG Base Excess Sodium Potassium Chloride Carbon Dioxide Anion Gap BUN Creatinine Estim Creat Clear Calc Estimated GFR POC Glucose 166 H 164 H Random Glucose Fasting Glucose Lactic Acid Calcium Phosphorus Magnesium Iron TIBC % Saturation Unsat Iron Binding Ferritin Total Bilirubin AST ALT Alkaline Phosphatase Ammonia 41 Lactate Dehydrogenase Troponin I High Sens B-Natriuretic Peptide Total Protein Albumin PTH Intact Calcium (PTH Intact) Gastric Occult Blood Stool Occult Blood Random Vancomycin C. difficile Tox B Gene COVID-19 (JAS) [facility] Blood Type Antibody Screen Crossmatch 05/30/22 05/31/22 05/31/22 20:40 07:41 10:38 WBC RBC Hgb Hct MCV MCH MCHC RDW Plt Count MPV Immature Gran % (Auto) Neut % (Auto) Lymph % (Auto) [place] % (Auto) Eos % (Auto) Baso % (Auto) Lymph # (Auto) [place] # (Auto) Eos # (Auto) Baso # (Auto) Abs Immat Gran (auto) Absolute Neuts (auto) Absolute Nucleated RBC Nucleated RBC % (auto) PT INR O2 Saturation ABG pH at Pt Temp ABG pCO2 at Pt Temp ABG pO2 at Pt Temp ABG HCO3 ABG Base Excess (Actual) VBG pH VBG pCO2 VBG pO2 VBG HCO3 VBG O2 Saturation VBG Base Excess Sodium 149 H Potassium 3.2 L Chloride 107 Carbon Dioxide 34 H Anion Gap 11 L BUN 69 H Creatinine 2.63 H Estim Creat Clear Calc 29.6 Estimated GFR 25 POC Glucose 167 H 242 H Random Glucose 274 H Fasting Glucose Lactic Acid Calcium 8.4 D Phosphorus Magnesium Iron TIBC % Saturation Unsat Iron Binding Ferritin Total Bilirubin AST ALT Alkaline Phosphatase Ammonia Lactate Dehydrogenase Troponin I High Sens B-Natriuretic Peptide Total Protein Albumin PTH Intact Calcium (PTH Intact) Gastric Occult Blood Stool Occult Blood Random Vancomycin C. difficile Tox B Gene COVID-19 (JAS) COVID-19 [facility] Blood Type Antibody Screen Crossmatch 05/31/22 05/31/22 05/31/22 10:38 11:14 16:37 WBC 15.6 H RBC 2.94 L Hgb 9.0 L Hct 27.7 L MCV 94.2 MCH 30.6 MCHC 32.5 RDW 16.8 H Plt Count 120 L MPV 11.0 Immature Gran % (Auto) Neut % (Auto) Lymph % (Auto) [place] % (Auto) Eos % (Auto) Baso % (Auto) Lymph # (Auto) [place] # (Auto) Eos # (Auto) Baso # (Auto) Abs Immat Gran (auto) Absolute Neuts (auto) Absolute Nucleated RBC 0.000 Nucleated RBC % (auto) 0.0 PT INR O2 Saturation ABG pH at Pt Temp ABG pCO2 at Pt Temp ABG pO2 at Pt Temp ABG HCO3 ABG Base Excess (Actual) VBG pH VBG pCO2 VBG pO2 VBG HCO3 VBG O2 Saturation VBG Base Excess Sodium Potassium Chloride Carbon Dioxide Anion Gap BUN Creatinine Estim Creat Clear Calc Estimated GFR POC Glucose 246 H 308 H Random Glucose Fasting Glucose Lactic Acid Calcium Phosphorus Magnesium Iron TIBC % Saturation Unsat Iron Binding Ferritin Total Bilirubin AST ALT Alkaline Phosphatase Ammonia Lactate Dehydrogenase Troponin I High Sens B-Natriuretic Peptide Total Protein Albumin PTH Intact Calcium (PTH Intact) Gastric Occult Blood Stool Occult Blood Random Vancomycin C. difficile Tox B Gene COVID-19 (JAS) [facility] [employer] [facility] Blood Type Antibody Screen Crossmatch 05/31/22 05/31/22 06/01/22 17:57 20:03 06:10 WBC RBC Hgb Hct MCV MCH MCHC RDW Plt Count MPV Immature Gran % (Auto) Neut % (Auto) Lymph % (Auto) [place] % (Auto) Eos % (Auto) Baso % (Auto) Lymph # (Auto) [place] # (Auto) Eos # (Auto) Baso # (Auto) Abs Immat Gran (auto) Absolute Neuts (auto) Absolute Nucleated RBC Nucleated RBC % (auto) PT INR O2 Saturation ABG pH at Pt Temp ABG pCO2 at Pt Temp ABG pO2 at Pt Temp ABG HCO3 ABG Base Excess (Actual) VBG pH VBG pCO2 VBG pO2 VBG HCO3 VBG O2 Saturation VBG Base Excess Sodium 147 H 145 Potassium 2.8 L 2.9 L Chloride 106 105 Carbon Dioxide 33 H 33 H Anion Gap 11 L 10 L BUN 72 H Creatinine 2.72 H Estim Creat Clear Calc 31.2 Estimated GFR 24 POC Glucose 231 H Random Glucose 392 H* Fasting Glucose Lactic Acid Calcium 8.2 L Phosphorus Magnesium 2.0 Iron TIBC % Saturation Unsat Iron Binding Ferritin Total Bilirubin AST ALT Alkaline Phosphatase Ammonia Lactate Dehydrogenase Troponin I High Sens B-Natriuretic Peptide Total Protein Albumin PTH Intact Calcium (PTH Intact) Gastric Occult Blood Stool Occult Blood Random Vancomycin C. difficile Tox B Gene COVID-19 (JAS) COVID-19 [facility] Blood Type Antibody Screen Crossmatch 06/01/22 06/01/22 06/01/22 07:23 11:06 11:22 WBC RBC Hgb Hct MCV MCH MCHC RDW Plt Count MPV Immature Gran % (Auto) Neut % (Auto) Lymph % (Auto) [place] % (Auto) Eos % (Auto) Baso % (Auto) Lymph # (Auto) [place] # (Auto) Eos # (Auto) Baso # (Auto) Abs Immat Gran (auto) Absolute Neuts (auto) Absolute Nucleated RBC Nucleated RBC % (auto) PT INR O2 Saturation ABG pH at Pt Temp ABG pCO2 at Pt Temp ABG pO2 at Pt Temp ABG HCO3 ABG Base Excess (Actual) VBG pH VBG pCO2 VBG pO2 VBG HCO3 VBG O2 Saturation VBG Base Excess Sodium Potassium Chloride Carbon Dioxide Anion Gap BUN Creatinine Estim Creat Clear Calc Estimated GFR POC Glucose 362 H* 361 H* Random Glucose Fasting Glucose Lactic Acid Calcium Phosphorus Magnesium Iron TIBC % Saturation Unsat Iron Binding Ferritin Total Bilirubin AST ALT Alkaline Phosphatase Ammonia 40 Lactate Dehydrogenase Troponin I High Sens B-Natriuretic Peptide Total Protein Albumin PTH Intact Calcium (PTH Intact) Gastric Occult Blood Stool Occult Blood Random Vancomycin C. difficile Tox B Gene COVID-19 (JAS) COVID-19 Clin Com Blood Type Antibody Screen Crossmatch 06/01/22 06/01/22 06/01/22 11:22 11:27 15:57 WBC RBC Hgb Hct MCV MCH MCHC RDW Plt Count MPV Immature Gran % (Auto) Neut % (Auto) Lymph % (Auto) [place] % (Auto) Eos % (Auto) Baso % (Auto) Lymph # (Auto) [place] # (Auto) Eos # (Auto) Baso # (Auto) Abs Immat Gran (auto) Absolute Neuts (auto) Absolute Nucleated RBC Nucleated RBC % (auto) PT INR O2 Saturation ABG pH at Pt Temp ABG pCO2 at Pt Temp ABG pO2 at Pt Temp ABG HCO3 ABG Base Excess (Actual) VBG pH 7.51 H 7.51 H VBG pCO2 39 39 VBG pO2 51 51 VBG HCO3 32 H 32 H VBG O2 Saturation 82.0 82.0 VBG Base Excess 8.9 8.9 Sodium Potassium Chloride Carbon Dioxide Anion Gap BUN Creatinine Estim Creat Clear Calc Estimated GFR POC Glucose 337 H Random Glucose Fasting Glucose Lactic Acid Calcium Phosphorus Magnesium Iron TIBC % Saturation Unsat Iron Binding Ferritin Total Bilirubin AST ALT Alkaline Phosphatase Ammonia Lactate Dehydrogenase Troponin I High Sens B-Natriuretic Peptide Total Protein Albumin PTH Intact Calcium (PTH Intact) Gastric Occult Blood Stool Occult Blood Random Vancomycin C. difficile Tox B Gene COVID-19 (JAS) COVID-[address] [facility] Blood Type Antibody Screen Crossmatch 06/01/22 06/02/22 06/02/22 19:38 05:21 05:21 WBC 8.1 RBC 2.76 L Hgb 8.6 L Hct 25.7 L MCV 93.1 MCH 31.2 MCHC 33.5 RDW 17.0 H Plt Count 90 L MPV 11.8 Immature Gran % (Auto) Neut % (Auto) Lymph % (Auto) [place] % (Auto) Eos % (Auto) Baso % (Auto) Lymph # (Auto) [place] # (Auto) Eos # (Auto) Baso # (Auto) Abs Immat Gran (auto) Absolute Neuts (auto) Absolute Nucleated RBC 0.000 Nucleated RBC % (auto) 0.0 PT INR O2 Saturation ABG pH at Pt Temp ABG pCO2 at Pt Temp ABG pO2 at Pt Temp ABG HCO3 ABG Base Excess (Actual) VBG pH VBG pCO2 VBG pO2 VBG HCO3 VBG O2 Saturation VBG Base Excess Sodium 145 Potassium 3.1 L Chloride 107 Carbon Dioxide 31 H Anion Gap 10 L BUN 70 H Creatinine 2.72 H Estim Creat Clear Calc 31.2 Estimated GFR 24 POC Glucose 399 H* Random Glucose 473 H* Fasting Glucose Lactic Acid Calcium 7.9 L Phosphorus Magnesium Iron TIBC % Saturation Unsat Iron Binding Ferritin Total Bilirubin AST ALT Alkaline Phosphatase Ammonia Lactate Dehydrogenase Troponin I High Sens B-Natriuretic Peptide Total Protein Albumin PTH Intact Calcium (PTH Intact) Gastric Occult Blood Stool Occult Blood Random Vancomycin C. difficile Tox B Gene COVID-19 (JAS) COVID-[address] [facility] Blood Type Antibody Screen Crossmatch 06/02/22 06/02/22 06/02/22 07:39 10:59 15:47 WBC RBC Hgb Hct MCV MCH MCHC RDW Plt Count MPV Immature Gran % (Auto) Neut % (Auto) Lymph % (Auto) [place] % (Auto) Eos % (Auto) Baso % (Auto) Lymph # (Auto) [place] # (Auto) Eos # (Auto) Baso # (Auto) Abs Immat Gran (auto) Absolute Neuts (auto) Absolute Nucleated RBC Nucleated RBC % (auto) PT INR O2 Saturation ABG pH at Pt Temp ABG pCO2 at Pt Temp ABG pO2 at Pt Temp ABG HCO3 ABG Base Excess (Actual) VBG pH VBG pCO2 VBG pO2 VBG HCO3 VBG O2 Saturation VBG Base Excess Sodium Potassium Chloride Carbon Dioxide Anion Gap BUN Creatinine Estim Creat Clear Calc Estimated GFR POC Glucose 391 H* 394 H* 325 H Random Glucose Fasting Glucose Lactic Acid Calcium Phosphorus Magnesium Iron TIBC % Saturation Unsat Iron Binding Ferritin Total Bilirubin AST ALT Alkaline Phosphatase Ammonia Lactate Dehydrogenase Troponin I High Sens B-Natriuretic Peptide Total Protein Albumin PTH Intact Calcium (PTH Intact) Gastric Occult Blood Stool Occult Blood Random Vancomycin C. difficile Tox B Gene COVID-19 (JAS) [facility] Blood Type Antibody Screen Crossmatch 06/02/22 06/03/22 06/03/22 20:32 06:11 07:11 WBC RBC Hgb Hct MCV MCH MCHC RDW Plt Count MPV Immature Gran % (Auto) Neut % (Auto) Lymph % (Auto) [place] % (Auto) Eos % (Auto) Baso % (Auto) Lymph # (Auto) [place] # (Auto) Eos # (Auto) Baso # (Auto) Abs Immat Gran (auto) Absolute Neuts (auto) Absolute Nucleated RBC Nucleated RBC % (auto) PT INR O2 Saturation ABG pH at Pt Temp ABG pCO2 at Pt Temp ABG pO2 at Pt Temp ABG HCO3 ABG Base Excess (Actual) VBG pH VBG pCO2 VBG pO2 VBG HCO3 VBG O2 Saturation VBG Base Excess Sodium 150 H Potassium 3.0 L Chloride 111 H Carbon Dioxide 29 Anion Gap 13 BUN 67 H Creatinine 2.55 H Estim Creat Clear Calc 34.7 Estimated GFR 26 POC Glucose 261 H 272 H Random Glucose 296 H D Fasting Glucose Lactic Acid Calcium 7.8 L Phosphorus Magnesium 2.3 Iron TIBC % Saturation Unsat Iron Binding Ferritin Total Bilirubin AST ALT Alkaline Phosphatase Ammonia Lactate Dehydrogenase Troponin I High Sens B-Natriuretic Peptide Total Protein Albumin PTH Intact Calcium (PTH Intact) Gastric Occult Blood Stool Occult Blood Random Vancomycin C. difficile Tox B Gene COVID-19 (JAS) [facility] Blood Type Antibody Screen Crossmatch 06/03/22 06/03/22 06/03/22 11:12 15:46 17:50 WBC RBC Hgb Hct MCV MCH MCHC RDW Plt Count MPV Immature Gran % (Auto) Neut % (Auto) Lymph % (Auto) [place] % (Auto) Eos % (Auto) Baso % (Auto) Lymph # (Auto) [place] # (Auto) Eos # (Auto) Baso # (Auto) Abs Immat Gran (auto) Absolute Neuts (auto) Absolute Nucleated RBC Nucleated RBC % (auto) PT INR O2 Saturation ABG pH at Pt Temp ABG pCO2 at Pt Temp ABG pO2 at Pt Temp ABG HCO3 ABG Base Excess (Actual) VBG pH VBG pCO2 VBG pO2 VBG HCO3 VBG O2 Saturation VBG Base Excess Sodium 148 H Potassium 2.6 L Chloride 110 H Carbon Dioxide 29 Anion Gap 12 BUN 66 H Creatinine 2.49 H Estim Creat Clear Calc 35.6 Estimated GFR 26 POC Glucose 283 H 287 H Random Glucose 393 H* Fasting Glucose Lactic Acid Calcium 7.8 L Phosphorus Magnesium Iron TIBC % Saturation Unsat Iron Binding Ferritin Total Bilirubin AST ALT Alkaline Phosphatase Ammonia Lactate Dehydrogenase Troponin I High Sens B-Natriuretic Peptide Total Protein Albumin PTH Intact Calcium (PTH Intact) Gastric Occult Blood Stool Occult Blood Random Vancomycin C. difficile Tox B Gene COVID-19 (JAS) COVID-[address] [facility] Blood Type Antibody Screen Crossmatch 06/03/22 06/03/22 06/04/22 20:20 22:37 07:30 WBC RBC Hgb Hct MCV MCH MCHC RDW Plt Count MPV Immature Gran % (Auto) Neut % (Auto) Lymph % (Auto) [place] % (Auto) Eos % (Auto) Baso % (Auto) Lymph # (Auto) [place] # (Auto) Eos # (Auto) Baso # (Auto) Abs Immat Gran (auto) Absolute Neuts (auto) Absolute Nucleated RBC Nucleated RBC % (auto) PT INR O2 Saturation ABG pH at Pt Temp ABG pCO2 at Pt Temp ABG pO2 at Pt Temp ABG HCO3 ABG Base Excess (Actual) VBG pH VBG pCO2 VBG pO2 VBG HCO3 VBG O2 Saturation VBG Base Excess Sodium Potassium Chloride Carbon Dioxide Anion Gap BUN Creatinine Estim Creat Clear Calc Estimated GFR POC Glucose 337 H 370 H* 448 H* Random Glucose Fasting Glucose Lactic Acid Calcium Phosphorus Magnesium Iron TIBC % Saturation Unsat Iron Binding Ferritin Total Bilirubin AST ALT Alkaline Phosphatase Ammonia Lactate Dehydrogenase Troponin I High Sens B-Natriuretic Peptide Total Protein Albumin PTH Intact Calcium (PTH Intact) Gastric Occult Blood Stool Occult Blood Random Vancomycin C. difficile Tox B Gene COVID-19 (JAS) COVID-[address] [facility] Blood Type Antibody Screen Crossmatch 06/04/22 06/04/22 06/04/22 08:01 08:01 11:14 WBC 4.9 RBC 2.58 L Hgb 8.0 L Hct 23.9 L MCV 92.6 MCH 31.0 MCHC 33.5 RDW 16.9 H Plt Count 96 L MPV 12.2 Immature Gran % (Auto) Neut % (Auto) Lymph % (Auto) [place] % (Auto) Eos % (Auto) Baso % (Auto) Lymph # (Auto) [place] # (Auto) Eos # (Auto) Baso # (Auto) Abs Immat Gran (auto) Absolute Neuts (auto) Absolute Nucleated RBC 0.000 Nucleated RBC % (auto) 0.0 PT INR O2 Saturation ABG pH at Pt Temp ABG pCO2 at Pt Temp ABG pO2 at Pt Temp ABG HCO3 ABG Base Excess (Actual) VBG pH VBG pCO2 VBG pO2 VBG HCO3 VBG O2 Saturation VBG Base Excess Sodium 146 H Potassium 3.1 L Chloride 110 H Carbon Dioxide 27 Anion Gap 12 BUN 59 H Creatinine 2.43 H Estim Creat Clear Calc 34.9 Estimated GFR 27 POC Glucose 423 H* Random Glucose 559 H* Fasting Glucose Lactic Acid Calcium 7.5 L Phosphorus Magnesium 2.5 Iron TIBC % Saturation Unsat Iron Binding Ferritin Total Bilirubin AST ALT Alkaline Phosphatase Ammonia Lactate Dehydrogenase Troponin I High Sens B-Natriuretic Peptide Total Protein Albumin PTH Intact Calcium (PTH Intact) Gastric Occult Blood Stool Occult Blood Random Vancomycin C. difficile Tox B Gene COVID-19 (JAS) COVID-19 [facility] Blood Type Antibody Screen Crossmatch 06/04/22 06/04/22 06/04/22 15:45 17:34 20:10 WBC RBC Hgb Hct MCV MCH MCHC RDW Plt Count MPV Immature Gran % (Auto) Neut % (Auto) Lymph % (Auto) [place] % (Auto) Eos % (Auto) Baso % (Auto) Lymph # (Auto) [place] # (Auto) Eos # (Auto) Baso # (Auto) Abs Immat Gran (auto) Absolute Neuts (auto) Absolute Nucleated RBC Nucleated RBC % (auto) PT INR O2 Saturation ABG pH at Pt Temp ABG pCO2 at Pt Temp ABG pO2 at Pt Temp ABG HCO3 ABG Base Excess (Actual) VBG pH VBG pCO2 VBG pO2 VBG HCO3 VBG O2 Saturation VBG Base Excess Sodium 148 H Potassium 3.4 Chloride 112 H Carbon Dioxide 28 Anion Gap 11 L BUN 61 H Creatinine 2.52 H Estim Creat Clear Calc 33.7 Estimated GFR 26 POC Glucose 427 H* 353 H* Random Glucose 511 H* Fasting Glucose Lactic Acid Calcium 7.5 L Phosphorus Magnesium Iron TIBC % Saturation Unsat Iron Binding Ferritin Total Bilirubin AST ALT Alkaline Phosphatase Ammonia Lactate Dehydrogenase Troponin I High Sens B-Natriuretic Peptide Total Protein Albumin PTH Intact Calcium (PTH Intact) Gastric Occult Blood Stool Occult Blood Random Vancomycin C. difficile Tox B Gene COVID-19 (JAS) COVID-19 [facility] Blood Type Antibody Screen Crossmatch 06/05/22 06/05/22 06/05/22 07:21 07:28 11:29 WBC RBC Hgb Hct MCV MCH MCHC RDW Plt Count MPV Immature Gran % (Auto) Neut % (Auto) Lymph % (Auto) [place] % (Auto) Eos % (Auto) Baso % (Auto) Lymph # (Auto) [place] # (Auto) Eos # (Auto) Baso # (Auto) Abs Immat Gran (auto) Absolute Neuts (auto) Absolute Nucleated RBC Nucleated RBC % (auto) PT INR O2 Saturation ABG pH at Pt Temp ABG pCO2 at Pt Temp ABG pO2 at Pt Temp ABG HCO3 ABG Base Excess (Actual) VBG pH VBG pCO2 VBG pO2 VBG HCO3 VBG O2 Saturation VBG Base Excess Sodium 145 Potassium 3.7 Chloride 111 H Carbon Dioxide 25 Anion Gap 13 BUN 56 H Creatinine 2.35 H Estim Creat Clear Calc 36.6 Estimated GFR 28 POC Glucose 314 H 347 H Random Glucose 415 H* Fasting Glucose Lactic Acid Calcium 7.4 L Phosphorus Magnesium Iron TIBC % Saturation Unsat Iron Binding Ferritin Total Bilirubin AST ALT Alkaline Phosphatase Ammonia Lactate Dehydrogenase Troponin I High Sens B-Natriuretic Peptide Total Protein Albumin PTH Intact Calcium (PTH Intact) Gastric Occult Blood Stool Occult Blood Random Vancomycin C. difficile Tox B Gene COVID-19 (JAS) COVID-19 [employer] [employer] [facility] Blood Type Antibody Screen Crossmatch 06/05/22 06/05/22 06/06/22 15:28 19:21 04:41 WBC RBC Hgb Hct MCV MCH MCHC RDW Plt Count MPV Immature Gran % (Auto) Neut % (Auto) Lymph % (Auto) [place] % (Auto) Eos % (Auto) Baso % (Auto) Lymph # (Auto) [place] # (Auto) Eos # (Auto) Baso # (Auto) Abs Immat Gran (auto) Absolute Neuts (auto) Absolute Nucleated RBC Nucleated RBC % (auto) PT INR O2 Saturation ABG pH at Pt Temp ABG pCO2 at Pt Temp ABG pO2 at Pt Temp ABG HCO3 ABG Base Excess (Actual) VBG pH VBG pCO2 VBG pO2 VBG HCO3 VBG O2 Saturation VBG Base Excess Sodium 143 Potassium 4.3 Chloride 111 H Carbon Dioxide 26 Anion Gap 10 L BUN 56 H Creatinine 2.35 H Estim Creat Clear Calc 36.6 Estimated GFR 28 POC Glucose 378 H* 381 H* Random Glucose 431 H* Fasting Glucose Lactic Acid Calcium 6.9 L D Phosphorus Magnesium Iron TIBC % Saturation Unsat Iron Binding Ferritin Total Bilirubin AST ALT Alkaline Phosphatase Ammonia Lactate Dehydrogenase Troponin I High Sens B-Natriuretic Peptide Total Protein Albumin PTH Intact Calcium (PTH Intact) Gastric Occult Blood Stool Occult Blood Random Vancomycin C. difficile Tox B Gene COVID-19 (JAS) COVID-19 Clin Com Blood Type Antibody Screen Crossmatch 06/06/22 06/06/22 06/06/22 07:10 10:48 15:57 WBC RBC Hgb Hct MCV MCH MCHC RDW Plt Count MPV Immature Gran % (Auto) Neut % (Auto) Lymph % (Auto) [place] % (Auto) Eos % (Auto) Baso % (Auto) Lymph # (Auto) [place] # (Auto) Eos # (Auto) Baso # (Auto) Abs Immat Gran (auto) Absolute Neuts (auto) Absolute Nucleated RBC Nucleated RBC % (auto) PT INR O2 Saturation ABG pH at Pt Temp ABG pCO2 at Pt Temp ABG pO2 at Pt Temp ABG HCO3 ABG Base Excess (Actual) VBG pH VBG pCO2 VBG pO2 VBG HCO3 VBG O2 Saturation VBG Base Excess Sodium Potassium Chloride Carbon Dioxide Anion Gap BUN Creatinine Estim Creat Clear Calc Estimated GFR POC Glucose 408 H* 341 H 221 H Random Glucose Fasting Glucose Lactic Acid Calcium Phosphorus Magnesium Iron TIBC % Saturation Unsat Iron Binding Ferritin Total Bilirubin AST ALT Alkaline Phosphatase Ammonia Lactate Dehydrogenase Troponin I High Sens B-Natriuretic Peptide Total Protein Albumin PTH Intact Calcium (PTH Intact) Gastric Occult Blood Stool Occult Blood Random Vancomycin C. difficile Tox B Gene COVID-19 (JAS) COVIDSyncano19 [facility] Blood Type Antibody Screen Crossmatch 06/06/22 06/07/22 06/07/22 19:51 04:28 07:11 WBC RBC Hgb Hct MCV MCH MCHC RDW Plt Count MPV Immature Gran % (Auto) Neut % (Auto) Lymph % (Auto) [place] % (Auto) Eos % (Auto) Baso % (Auto) Lymph # (Auto) [place] # (Auto) Eos # (Auto) Baso # (Auto) Abs Immat Gran (auto) Absolute Neuts (auto) Absolute Nucleated RBC Nucleated RBC % (auto) PT INR O2 Saturation ABG pH at Pt Temp ABG pCO2 at Pt Temp ABG pO2 at Pt Temp ABG HCO3 ABG Base Excess (Actual) VBG pH VBG pCO2 VBG pO2 VBG HCO3 VBG O2 Saturation VBG Base Excess Sodium 146 H Potassium 4.4 Chloride 114 H Carbon Dioxide 24 Anion Gap 12 BUN 53 H Creatinine 2.39 H Estim Creat Clear Calc 36.1 Estimated GFR 28 POC Glucose 206 H 243 H Random Glucose 275 H D Fasting Glucose Lactic Acid Calcium 7.2 L Phosphorus Magnesium Iron 56 TIBC 165 L % Saturation 34 Unsat Iron Binding 109 Ferritin 453 H Total Bilirubin AST ALT Alkaline Phosphatase Ammonia Lactate Dehydrogenase Troponin I High Sens B-Natriuretic Peptide Total Protein Albumin PTH Intact Calcium (PTH Intact) Gastric Occult Blood Stool Occult Blood Random Vancomycin C. difficile Tox B Gene COVID-19 (JAS) COVID-19 [facility] Blood Type Antibody Screen Crossmatch 06/07/22 06/07/22 06/07/22 11:12 15:56 20:01 WBC RBC Hgb Hct MCV MCH MCHC RDW Plt Count MPV Immature Gran % (Auto) Neut % (Auto) Lymph % (Auto) [place] % (Auto) Eos % (Auto) Baso % (Auto) Lymph # (Auto) [place] # (Auto) Eos # (Auto) Baso # (Auto) Abs Immat Gran (auto) Absolute Neuts (auto) Absolute Nucleated RBC Nucleated RBC % (auto) PT INR O2 Saturation ABG pH at Pt Temp ABG pCO2 at Pt Temp ABG pO2 at Pt Temp ABG HCO3 ABG Base Excess (Actual) VBG pH VBG pCO2 VBG pO2 VBG HCO3 VBG O2 Saturation VBG Base Excess Sodium Potassium Chloride Carbon Dioxide Anion Gap BUN Creatinine Estim Creat Clear Calc Estimated GFR POC Glucose 250 H 172 H 144 H Random Glucose Fasting Glucose Lactic Acid Calcium Phosphorus Magnesium Iron TIBC % Saturation Unsat Iron Binding Ferritin Total Bilirubin AST ALT Alkaline Phosphatase Ammonia Lactate Dehydrogenase Troponin I High Sens B-Natriuretic Peptide Total Protein Albumin PTH Intact Calcium (PTH Intact) Gastric Occult Blood Stool Occult Blood Random Vancomycin C. difficile Tox B Gene COVID-19 (JAS) COVID-19 [facility] Com Blood Type Antibody Screen Crossmatch 06/08/22 06/08/22 06/08/22 05:49 05:49 05:49 WBC 5.2 RBC 2.83 L Hgb 8.8 L Hct 27.0 L MCV 95.4 MCH 31.1 MCHC 32.6 RDW 17.7 H Plt Count 117 L MPV 11.7 Immature Gran % (Auto) 0.4 Neut % (Auto) 69.3 Lymph % (Auto) 15.5 L [place] % (Auto) 8.2 Eos % (Auto) 6.2 H Baso % (Auto) 0.4 Lymph # (Auto) 0.8 L [place] # (Auto) 0.4 Eos # (Auto) 0.3 Baso # (Auto) 0.0 Abs Immat Gran (auto) 0.02 Absolute Neuts (auto) 3.6 Absolute Nucleated RBC 0.000 Nucleated RBC % (auto) 0.0 PT 13.1 INR 1.1 O2 Saturation ABG pH at Pt Temp ABG pCO2 at Pt Temp ABG pO2 at Pt Temp ABG HCO3 ABG Base Excess (Actual) VBG pH VBG pCO2 VBG pO2 VBG HCO3 VBG O2 Saturation VBG Base Excess Sodium Potassium Chloride Carbon Dioxide Anion Gap BUN Creatinine Estim Creat Clear Calc Estimated GFR POC Glucose Random Glucose Fasting Glucose Lactic Acid Calcium Phosphorus Magnesium Iron TIBC % Saturation Unsat Iron Binding Ferritin Total Bilirubin AST ALT Alkaline Phosphatase Ammonia Lactate Dehydrogenase Troponin I High Sens B-Natriuretic Peptide Total Protein Albumin PTH Intact 144 H Calcium (PTH Intact) 7.7 L Gastric Occult Blood Stool Occult Blood Random Vancomycin C. difficile Tox B Gene COVID-19 (JAS) COVID-19 [facility] Com Blood Type Antibody Screen Crossmatch 06/08/22 06/08/22 06/08/22 05:49 07:33 11:07 WBC RBC Hgb Hct MCV MCH MCHC RDW Plt Count MPV Immature Gran % (Auto) Neut % (Auto) Lymph % (Auto) [place] % (Auto) Eos % (Auto) Baso % (Auto) Lymph # (Auto) [place] # (Auto) Eos # (Auto) Baso # (Auto) Abs Immat Gran (auto) Absolute Neuts (auto) Absolute Nucleated RBC Nucleated RBC % (auto) PT INR O2 Saturation ABG pH at Pt Temp ABG pCO2 at Pt Temp ABG pO2 at Pt Temp ABG HCO3 ABG Base Excess (Actual) VBG pH VBG pCO2 VBG pO2 VBG HCO3 VBG O2 Saturation VBG Base Excess Sodium 151 H Potassium 4.6 Chloride 121 H Carbon Dioxide 24 Anion Gap 11 L BUN 53 H Creatinine 2.43 H Estim Creat Clear Calc 35.0 Estimated GFR 27 POC Glucose 246 H 214 H Random Glucose 310 H Fasting Glucose Lactic Acid Calcium 7.5 L Phosphorus Magnesium Iron TIBC % Saturation Unsat Iron Binding Ferritin Total Bilirubin 1.4 H AST 49 H D ALT 14 Alkaline Phosphatase 85 D Ammonia Lactate Dehydrogenase Troponin I High Sens B-Natriuretic Peptide Total Protein 6.3 L Albumin 2.8 L PTH Intact Calcium (PTH Intact) Gastric Occult Blood Stool Occult Blood Random Vancomycin C. difficile Tox B Gene COVID-19 (JAS) COVID-19 Clin Com Blood Type Antibody Screen Crossmatch 06/08/22 06/08/22 06/08/22 14:51 15:57 17:37 WBC RBC Hgb Hct MCV MCH MCHC RDW Plt Count MPV Immature Gran % (Auto) Neut % (Auto) Lymph % (Auto) [place] % (Auto) Eos % (Auto) Baso % (Auto) Lymph # (Auto) [place] # (Auto) Eos # (Auto) Baso # (Auto) Abs Immat Gran (auto) Absolute Neuts (auto) Absolute Nucleated RBC Nucleated RBC % (auto) PT INR O2 Saturation ABG pH at Pt Temp ABG pCO2 at Pt Temp ABG pO2 at Pt Temp ABG HCO3 ABG Base Excess (Actual) VBG pH VBG pCO2 VBG pO2 VBG HCO3 VBG O2 Saturation VBG Base Excess Sodium 153 H Potassium 4.4 Chloride 123 H Carbon Dioxide 25 Anion Gap 9 L BUN 51 H Creatinine 2.29 H Estim Creat Clear Calc 37.2 Estimated GFR 29 POC Glucose 208 H Random Glucose 246 H Fasting Glucose Lactic Acid Calcium 7.3 L Phosphorus Magnesium Iron TIBC % Saturation Unsat Iron Binding Ferritin Total Bilirubin AST ALT Alkaline Phosphatase Ammonia Lactate Dehydrogenase 464 H 445 H Troponin I High Sens B-Natriuretic Peptide Total Protein Albumin PTH Intact Calcium (PTH Intact) Gastric Occult Blood Stool Occult Blood Random Vancomycin C. difficile Tox B Gene COVID-19 (JAS) COVID-19 [facility] Blood Type Antibody Screen Crossmatch 06/08/22 06/08/22 06/08/22 18:22 19:29 22:33 WBC RBC Hgb Hct MCV MCH MCHC RDW Plt Count MPV Immature Gran % (Auto) Neut % (Auto) Lymph % (Auto) [place] % (Auto) Eos % (Auto) Baso % (Auto) Lymph # (Auto) [place] # (Auto) Eos # (Auto) Baso # (Auto) Abs Immat Gran (auto) Absolute Neuts (auto) Absolute Nucleated RBC Nucleated RBC % (auto) PT INR O2 Saturation ABG pH at Pt Temp ABG pCO2 at Pt Temp ABG pO2 at Pt Temp ABG HCO3 ABG Base Excess (Actual) VBG pH VBG pCO2 VBG pO2 VBG HCO3 VBG O2 Saturation VBG Base Excess Sodium Potassium Chloride Carbon Dioxide Anion Gap BUN Creatinine Estim Creat Clear Calc Estimated GFR POC Glucose 207 H Random Glucose Fasting Glucose Lactic Acid 1.0 1.2 Calcium Phosphorus Magnesium Iron TIBC % Saturation Unsat Iron Binding Ferritin Total Bilirubin AST ALT Alkaline Phosphatase Ammonia Lactate Dehydrogenase Troponin I High Sens B-Natriuretic Peptide Total Protein Albumin PTH Intact Calcium (PTH Intact) Gastric Occult Blood Stool Occult Blood Random Vancomycin C. difficile Tox B Gene COVID-19 (JAS) COVID-19 [facility] Blood Type Antibody Screen Crossmatch 06/09/22 06/09/22 06/09/22 07:08 07:58 07:58 WBC 5.4 RBC 2.70 L Hgb 8.3 L Hct 26.0 L MCV 96.3 MCH 30.7 MCHC 31.9 RDW 18.2 H Plt Count 110 L MPV 11.0 Immature Gran % (Auto) 0.6 H Neut % (Auto) 68.9 Lymph % (Auto) 16.7 L [place] % (Auto) 7.0 Eos % (Auto) 6.6 H Baso % (Auto) 0.2 Lymph # (Auto) 0.9 L [place] # (Auto) 0.4 Eos # (Auto) 0.4 Baso # (Auto) 0.0 Abs Immat Gran (auto) 0.03 Absolute Neuts (auto) 3.8 Absolute Nucleated RBC 0.000 Nucleated RBC % (auto) 0.0 PT INR O2 Saturation ABG pH at Pt Temp ABG pCO2 at Pt Temp ABG pO2 at Pt Temp ABG HCO3 ABG Base Excess (Actual) VBG pH VBG pCO2 VBG pO2 VBG HCO3 VBG O2 Saturation VBG Base Excess Sodium 152 H Potassium 4.7 Chloride 124 H Carbon Dioxide 21 L Anion Gap 12 BUN 50 H Creatinine 2.33 H Estim Creat Clear Calc 36.9 Estimated GFR 28 POC Glucose 241 H Random Glucose 314 H Fasting Glucose Lactic Acid Calcium 7.4 L Phosphorus Magnesium Iron TIBC % Saturation Unsat Iron Binding Ferritin Total Bilirubin 1.2 H AST 37 ALT 14 Alkaline Phosphatase 80 Ammonia Lactate Dehydrogenase Troponin I High Sens B-Natriuretic Peptide Total Protein 6.2 L Albumin 2.7 L PTH Intact Calcium (PTH Intact) Gastric Occult Blood Stool Occult Blood Random Vancomycin C. difficile Tox B Gene COVID-19 (JAS) COVID-19 Clin Com Blood Type Antibody Screen Crossmatch 06/09/22 06/09/22 06/09/22 11:17 14:48 15:52 WBC RBC Hgb Hct MCV MCH MCHC RDW Plt Count MPV Immature Gran % (Auto) Neut % (Auto) Lymph % (Auto) [place] % (Auto) Eos % (Auto) Baso % (Auto) Lymph # (Auto) [place] # (Auto) Eos # (Auto) Baso # (Auto) Abs Immat Gran (auto) Absolute Neuts (auto) Absolute Nucleated RBC Nucleated RBC % (auto) PT INR O2 Saturation ABG pH at Pt Temp ABG pCO2 at Pt Temp ABG pO2 at Pt Temp ABG HCO3 ABG Base Excess (Actual) VBG pH VBG pCO2 VBG pO2 VBG HCO3 VBG O2 Saturation VBG Base Excess Sodium Potassium Chloride Carbon Dioxide Anion Gap BUN Creatinine Estim Creat Clear Calc Estimated GFR POC Glucose 230 H 152 H Random Glucose Fasting Glucose Lactic Acid Calcium Phosphorus Magnesium Iron TIBC % Saturation Unsat Iron Binding Ferritin Total Bilirubin AST ALT Alkaline Phosphatase Ammonia Lactate Dehydrogenase Troponin I High Sens B-Natriuretic Peptide Total Protein Albumin PTH Intact Calcium (PTH Intact) Gastric Occult Blood Stool Occult Blood Random Vancomycin 13.6 L C. difficile Tox B Gene COVID-19 (JAS) COVID-19 [facility] Blood Type Antibody Screen Crossmatch 06/09/22 06/09/22 06/10/22 19:07 19:15 06:21 WBC 5.3 RBC 2.55 L Hgb 7.8 L Hct 24.6 L MCV 96.5 MCH 30.6 MCHC 31.7 RDW 18.0 H Plt Count 95 L MPV 11.7 Immature Gran % (Auto) 0.4 Neut % (Auto) 69.0 Lymph % (Auto) 15.1 L [place] % (Auto) 7.0 Eos % (Auto) 8.3 H Baso % (Auto) 0.2 Lymph # (Auto) 0.8 L [place] # (Auto) 0.4 Eos # (Auto) 0.4 Baso # (Auto) 0.0 Abs Immat Gran (auto) 0.02 Absolute Neuts (auto) 3.7 Absolute Nucleated RBC 0.000 Nucleated RBC % (auto) 0.0 PT INR O2 Saturation ABG pH at Pt Temp ABG pCO2 at Pt Temp ABG pO2 at Pt Temp ABG HCO3 ABG Base Excess (Actual) VBG pH VBG pCO2 VBG pO2 VBG HCO3 VBG O2 Saturation VBG Base Excess Sodium 152 H Potassium 4.3 Chloride 124 H Carbon Dioxide 21 L Anion Gap 11 L BUN Creatinine Estim Creat Clear Calc Estimated GFR POC Glucose 141 H Random Glucose Fasting Glucose Lactic Acid Calcium Phosphorus Magnesium Iron TIBC % Saturation Unsat Iron Binding Ferritin Total Bilirubin AST ALT Alkaline Phosphatase Ammonia Lactate Dehydrogenase Troponin I High Sens B-Natriuretic Peptide Total Protein Albumin PTH Intact Calcium (PTH Intact) Gastric Occult Blood Stool Occult Blood Random Vancomycin C. difficile Tox B Gene COVID-19 (JAS) COVID-19 [facility] Blood Type Antibody Screen Crossmatch 06/10/22 06/10/22 06/10/22 06:21 07:20 11:33 WBC RBC Hgb Hct MCV MCH MCHC RDW Plt Count MPV Immature Gran % (Auto) Neut % (Auto) Lymph % (Auto) [place] % (Auto) Eos % (Auto) Baso % (Auto) Lymph # (Auto) [place] # (Auto) Eos # (Auto) Baso # (Auto) Abs Immat Gran (auto) Absolute Neuts (auto) Absolute Nucleated RBC Nucleated RBC % (auto) PT INR O2 Saturation ABG pH at Pt Temp ABG pCO2 at Pt Temp ABG pO2 at Pt Temp ABG HCO3 ABG Base Excess (Actual) VBG pH VBG pCO2 VBG pO2 VBG HCO3 VBG O2 Saturation VBG Base Excess Sodium 152 H Potassium 4.7 Chloride 122 H Carbon Dioxide 21 L Anion Gap 14 BUN 47 H Creatinine 2.10 H Estim Creat Clear Calc 40.6 Estimated GFR 32 POC Glucose 244 H 222 H Random Glucose 275 H Fasting Glucose Lactic Acid Calcium 7.3 L Phosphorus Magnesium Iron TIBC % Saturation Unsat Iron Binding Ferritin Total Bilirubin 1.3 H AST 32 ALT 8 Alkaline Phosphatase 75 Ammonia Lactate Dehydrogenase Troponin I High Sens B-Natriuretic Peptide Total Protein 6.0 L Albumin 2.6 L PTH Intact Calcium (PTH Intact) Gastric Occult Blood Stool Occult Blood Random Vancomycin C. difficile Tox B Gene COVID-19 (JAS) [facility] Blood Type Antibody Screen Crossmatch 06/10/22 06/10/22 06/10/22 14:53 15:31 19:18 WBC RBC Hgb Hct MCV MCH MCHC RDW Plt Count MPV Immature Gran % (Auto) Neut % (Auto) Lymph % (Auto) [place] % (Auto) Eos % (Auto) Baso % (Auto) Lymph # (Auto) [place] # (Auto) Eos # (Auto) Baso # (Auto) Abs Immat Gran (auto) Absolute Neuts (auto) Absolute Nucleated RBC Nucleated RBC % (auto) PT INR O2 Saturation ABG pH at Pt Temp ABG pCO2 at Pt Temp ABG pO2 at Pt Temp ABG HCO3 ABG Base Excess (Actual) VBG pH VBG pCO2 VBG pO2 VBG HCO3 VBG O2 Saturation VBG Base Excess Sodium Potassium Chloride Carbon Dioxide Anion Gap BUN Creatinine Estim Creat Clear Calc Estimated GFR POC Glucose 174 H 203 H Random Glucose Fasting Glucose Lactic Acid Calcium Phosphorus Magnesium Iron TIBC % Saturation Unsat Iron Binding Ferritin Total Bilirubin AST ALT Alkaline Phosphatase Ammonia Lactate Dehydrogenase Troponin I High Sens B-Natriuretic Peptide Total Protein Albumin PTH Intact Calcium (PTH Intact) Gastric Occult Blood Stool Occult Blood Random Vancomycin 17.0 C. difficile Tox B Gene COVID-19 (JAS) COVID-19 [facility] Blood Type Antibody Screen Crossmatch 06/11/22 06/11/22 06/11/22 06:11 06:11 07:17 WBC 8.1 RBC 2.88 L Hgb 9.0 L Hct 28.1 L MCV 97.6 MCH 31.3 MCHC 32.0 RDW 17.4 H Plt Count 108 L MPV 12.1 Immature Gran % (Auto) 0.4 Neut % (Auto) 77.1 H Lymph % (Auto) 10.9 L [place] % (Auto) 5.7 Eos % (Auto) 5.7 H Baso % (Auto) 0.2 Lymph # (Auto) 0.9 L [place] # (Auto) 0.5 Eos # (Auto) 0.5 H Baso # (Auto) 0.0 Abs Immat Gran (auto) 0.03 Absolute Neuts (auto) 6.2 Absolute Nucleated RBC 0.000 Nucleated RBC % (auto) 0.0 PT INR O2 Saturation ABG pH at Pt Temp ABG pCO2 at Pt Temp ABG pO2 at Pt Temp ABG HCO3 ABG Base Excess (Actual) VBG pH VBG pCO2 VBG pO2 VBG HCO3 VBG O2 Saturation VBG Base Excess Sodium 146 H Potassium 5.1 Chloride 117 H Carbon Dioxide 20 L Anion Gap 14 BUN 46 H Creatinine 2.00 H Estim Creat Clear Calc 42.6 Estimated GFR 34 POC Glucose 173 H Random Glucose 206 H Fasting Glucose Lactic Acid Calcium 7.6 L Phosphorus Magnesium Iron TIBC % Saturation Unsat Iron Binding Ferritin Total Bilirubin 1.5 H AST 34 ALT < 6 Alkaline Phosphatase 83 Ammonia Lactate Dehydrogenase Troponin I High Sens B-Natriuretic Peptide Total Protein 6.5 Albumin 2.8 L PTH Intact Calcium (PTH Intact) Gastric Occult Blood Stool Occult Blood Random Vancomycin C. difficile Tox B Gene COVID-19 (JAS) COVID-19 Clin Com Blood Type Antibody Screen Crossmatch 06/11/22 06/11/22 06/11/22 11:43 15:14 16:48 WBC RBC Hgb Hct MCV MCH MCHC RDW Plt Count MPV Immature Gran % (Auto) Neut % (Auto) Lymph % (Auto) [place] % (Auto) Eos % (Auto) Baso % (Auto) Lymph # (Auto) [place] # (Auto) Eos # (Auto) Baso # (Auto) Abs Immat Gran (auto) Absolute Neuts (auto) Absolute Nucleated RBC Nucleated RBC % (auto) PT INR O2 Saturation ABG pH at Pt Temp ABG pCO2 at Pt Temp ABG pO2 at Pt Temp ABG HCO3 ABG Base Excess (Actual) VBG pH VBG pCO2 VBG pO2 VBG HCO3 VBG O2 Saturation VBG Base Excess Sodium Potassium Chloride Carbon Dioxide Anion Gap BUN Creatinine Estim Creat Clear Calc Estimated GFR POC Glucose 166 H 196 H Random Glucose Fasting Glucose Lactic Acid Calcium Phosphorus Magnesium Iron TIBC % Saturation Unsat Iron Binding Ferritin Total Bilirubin AST ALT Alkaline Phosphatase Ammonia Lactate Dehydrogenase Troponin I High Sens B-Natriuretic Peptide Total Protein Albumin PTH Intact Calcium (PTH Intact) Gastric Occult Blood Stool Occult Blood Random Vancomycin 18.2 C. difficile Tox B Gene COVID-19 (JAS) COVID-19 Clin Com Blood Type Antibody Screen Crossmatch 06/11/22 06/12/22 06/12/22 21:44 06:23 06:23 WBC 6.7 RBC 2.41 L Hgb 7.6 L Hct 23.1 L MCV 95.9 MCH 31.5 MCHC 32.9 RDW 17.3 H Plt Count 112 L MPV 11.6 Immature Gran % (Auto) 0.3 Neut % (Auto) 73.7 H Lymph % (Auto) 13.5 L [place] % (Auto) 5.8 Eos % (Auto) 6.4 H Baso % (Auto) 0.3 Lymph # (Auto) 0.9 L [place] # (Auto) 0.4 Eos # (Auto) 0.4 Baso # (Auto) 0.0 Abs Immat Gran (auto) 0.02 Absolute Neuts (auto) 4.9 Absolute Nucleated RBC 0.000 Nucleated RBC % (auto) 0.0 PT INR O2 Saturation ABG pH at Pt Temp ABG pCO2 at Pt Temp ABG pO2 at Pt Temp ABG HCO3 ABG Base Excess (Actual) VBG pH VBG pCO2 VBG pO2 VBG HCO3 VBG O2 Saturation VBG Base Excess Sodium 139 Potassium 4.5 Chloride 112 H Carbon Dioxide 19 L Anion Gap 13 BUN 46 H Creatinine 1.96 H Estim Creat Clear Calc 45.0 Estimated GFR 35 POC Glucose 193 H Random Glucose 195 H Fasting Glucose Lactic Acid Calcium 7.3 L Phosphorus Magnesium Iron TIBC % Saturation Unsat Iron Binding Ferritin Total Bilirubin 1.4 H AST 31 ALT < 6 Alkaline Phosphatase 81 Ammonia Lactate Dehydrogenase Troponin I High Sens B-Natriuretic Peptide Total Protein 6.1 L Albumin 2.6 L PTH Intact Calcium (PTH Intact) Gastric Occult Blood Stool Occult Blood Random Vancomycin C. difficile Tox B Gene COVID-19 (JAS) COVID-19 [employer] [employer] [facility] Blood Type Antibody Screen Crossmatch 06/12/22 06/12/22 06/12/22 07:12 11:00 16:00 WBC RBC Hgb Hct MCV MCH MCHC RDW Plt Count MPV Immature Gran % (Auto) Neut % (Auto) Lymph % (Auto) [place] % (Auto) Eos % (Auto) Baso % (Auto) Lymph # (Auto) [place] # (Auto) Eos # (Auto) Baso # (Auto) Abs Immat Gran (auto) Absolute Neuts (auto) Absolute Nucleated RBC Nucleated RBC % (auto) PT INR O2 Saturation ABG pH at Pt Temp ABG pCO2 at Pt Temp ABG pO2 at Pt Temp ABG HCO3 ABG Base Excess (Actual) VBG pH VBG pCO2 VBG pO2 VBG HCO3 VBG O2 Saturation VBG Base Excess Sodium Potassium Chloride Carbon Dioxide Anion Gap BUN Creatinine Estim Creat Clear Calc Estimated GFR POC Glucose 170 H 191 H 196 H Random Glucose Fasting Glucose Lactic Acid Calcium Phosphorus Magnesium Iron TIBC % Saturation Unsat Iron Binding Ferritin Total Bilirubin AST ALT Alkaline Phosphatase Ammonia Lactate Dehydrogenase Troponin I High Sens B-Natriuretic Peptide Total Protein Albumin PTH Intact Calcium (PTH Intact) Gastric Occult Blood Stool Occult Blood Random Vancomycin C. difficile Tox B Gene COVID-19 (JAS) COVID-[address] [facility] Blood Type Antibody Screen Crossmatch 06/12/22 06/13/22 06/13/22 21:26 06:07 08:09 WBC RBC Hgb Hct MCV MCH MCHC RDW Plt Count MPV Immature Gran % (Auto) Neut % (Auto) Lymph % (Auto) [place] % (Auto) Eos % (Auto) Baso % (Auto) Lymph # (Auto) [place] # (Auto) Eos # (Auto) Baso # (Auto) Abs Immat Gran (auto) Absolute Neuts (auto) Absolute Nucleated RBC Nucleated RBC % (auto) PT INR O2 Saturation ABG pH at Pt Temp ABG pCO2 at Pt Temp ABG pO2 at Pt Temp ABG HCO3 ABG Base Excess (Actual) VBG pH VBG pCO2 VBG pO2 VBG HCO3 VBG O2 Saturation VBG Base Excess Sodium 139 Potassium 4.6 Chloride 111 H Carbon Dioxide 19 L Anion Gap 14 BUN 44 H Creatinine 1.91 H Estim Creat Clear Calc 47.8 Estimated GFR 36 POC Glucose 181 H 115 Random Glucose 108 D Fasting Glucose Lactic Acid Calcium 7.5 L Phosphorus Magnesium 2.6 Iron TIBC % Saturation Unsat Iron Binding Ferritin Total Bilirubin AST ALT Alkaline Phosphatase Ammonia Lactate Dehydrogenase Troponin I High Sens B-Natriuretic Peptide Total Protein Albumin PTH Intact Calcium (PTH Intact) Gastric Occult Blood Stool Occult Blood Random Vancomycin C. difficile Tox B Gene COVID-19 (JAS) COVID-[address] [facility] Blood Type Antibody Screen Crossmatch 06/13/22 06/13/22 06/13/22 10:55 15:17 15:51 WBC RBC Hgb Hct MCV MCH MCHC RDW Plt Count MPV Immature Gran % (Auto) Neut % (Auto) Lymph % (Auto) [place] % (Auto) Eos % (Auto) Baso % (Auto) Lymph # (Auto) [place] # (Auto) Eos # (Auto) Baso # (Auto) Abs Immat Gran (auto) Absolute Neuts (auto) Absolute Nucleated RBC Nucleated RBC % (auto) PT INR O2 Saturation ABG pH at Pt Temp ABG pCO2 at Pt Temp ABG pO2 at Pt Temp ABG HCO3 ABG Base Excess (Actual) VBG pH VBG pCO2 VBG pO2 VBG HCO3 VBG O2 Saturation VBG Base Excess Sodium Potassium Chloride Carbon Dioxide Anion Gap BUN Creatinine Estim Creat Clear Calc Estimated GFR POC Glucose 140 H 155 H Random Glucose Fasting Glucose Lactic Acid Calcium Phosphorus Magnesium Iron TIBC % Saturation Unsat Iron Binding Ferritin Total Bilirubin AST ALT Alkaline Phosphatase Ammonia Lactate Dehydrogenase Troponin I High Sens B-Natriuretic Peptide Total Protein Albumin PTH Intact Calcium (PTH Intact) Gastric Occult Blood Stool Occult Blood Random Vancomycin 21.2 H C. difficile Tox B Gene COVID-19 (JAS) COVIDSyncano[facility] [facility] Blood Type Antibody Screen Crossmatch 06/13/22 06/14/22 06/14/22 21:03 05:37 05:37 WBC 6.9 RBC 2.57 L Hgb 8.0 L Hct 24.4 L MCV 94.9 MCH 31.1 MCHC 32.8 RDW 17.9 H Plt Count 130 L MPV 11.4 Immature Gran % (Auto) Neut % (Auto) Lymph % (Auto) [place] % (Auto) Eos % (Auto) Baso % (Auto) Lymph # (Auto) [place] # (Auto) Eos # (Auto) Baso # (Auto) Abs Immat Gran (auto) Absolute Neuts (auto) Absolute Nucleated RBC 0.000 Nucleated RBC % (auto) 0.0 PT INR O2 Saturation ABG pH at Pt Temp ABG pCO2 at Pt Temp ABG pO2 at Pt Temp ABG HCO3 ABG Base Excess (Actual) VBG pH VBG pCO2 VBG pO2 VBG HCO3 VBG O2 Saturation VBG Base Excess Sodium 141 Potassium 5.0 Chloride 112 H Carbon Dioxide 19 L Anion Gap 15 BUN 45 H Creatinine 2.02 H Estim Creat Clear Calc 44.0 Estimated GFR 34 POC Glucose 93 Random Glucose Fasting Glucose 73 Lactic Acid Calcium 7.8 L Phosphorus Magnesium Iron TIBC % Saturation Unsat Iron Binding Ferritin Total Bilirubin AST ALT Alkaline Phosphatase Ammonia Lactate Dehydrogenase Troponin I High Sens B-Natriuretic Peptide Total Protein Albumin PTH Intact Calcium (PTH Intact) Gastric Occult Blood Stool Occult Blood Random Vancomycin C. difficile Tox B Gene COVID-19 (JAS) COVID-[address] [facility] Blood Type Antibody Screen Crossmatch 06/14/22 06/14/22 06/14/22 05:45 07:32 10:00 WBC RBC Hgb Hct MCV MCH MCHC RDW Plt Count MPV Immature Gran % (Auto) Neut % (Auto) Lymph % (Auto) [place] % (Auto) Eos % (Auto) Baso % (Auto) Lymph # (Auto) [place] # (Auto) Eos # (Auto) Baso # (Auto) Abs Immat Gran (auto) Absolute Neuts (auto) Absolute Nucleated RBC Nucleated RBC % (auto) PT INR O2 Saturation ABG pH at Pt Temp ABG pCO2 at Pt Temp ABG pO2 at Pt Temp ABG HCO3 ABG Base Excess (Actual) VBG pH VBG pCO2 VBG pO2 VBG HCO3 VBG O2 Saturation VBG Base Excess Sodium Potassium Chloride Carbon Dioxide Anion Gap BUN Creatinine Estim Creat Clear Calc Estimated GFR POC Glucose 59 L* 122 H Random Glucose Fasting Glucose Lactic Acid Calcium Phosphorus Magnesium Iron TIBC % Saturation Unsat Iron Binding Ferritin Total Bilirubin AST ALT Alkaline Phosphatase Ammonia Lactate Dehydrogenase Troponin I High Sens B-Natriuretic Peptide Total Protein Albumin PTH Intact Calcium (PTH Intact) Gastric Occult Blood Stool Occult Blood Random Vancomycin C. difficile Tox B Gene NEGATIVE COVID-19 (JAS) COVID-19 [facility] Blood Type Antibody Screen Crossmatch 06/14/22 10:59 WBC RBC Hgb Hct MCV MCH MCHC RDW Plt Count MPV Immature Gran % (Auto) Neut % (Auto) Lymph % (Auto) [place] % (Auto) Eos % (Auto) Baso % (Auto) Lymph # (Auto) [place] # (Auto) Eos # (Auto) Baso # (Auto) Abs Immat Gran (auto) Absolute Neuts (auto) Absolute Nucleated RBC Nucleated RBC % (auto) PT INR O2 Saturation ABG pH at Pt Temp ABG pCO2 at Pt Temp ABG pO2 at Pt Temp ABG HCO3 ABG Base Excess (Actual) VBG pH VBG pCO2 VBG pO2 VBG HCO3 VBG O2 Saturation VBG Base Excess Sodium Potassium Chloride Carbon Dioxide Anion Gap BUN Creatinine Estim Creat Clear Calc Estimated GFR POC Glucose Random Glucose Fasting Glucose Lactic Acid Calcium Phosphorus Magnesium Iron TIBC % Saturation Unsat Iron Binding Ferritin Total Bilirubin AST ALT Alkaline Phosphatase Ammonia Lactate Dehydrogenase Troponin I High Sens B-Natriuretic Peptide Total Protein Albumin PTH Intact Calcium (PTH Intact) Gastric Occult Blood Stool Occult Blood Random Vancomycin C. difficile Tox B Gene COVID-19 ([facility]) COVID-19 Clin Com Blood Type A Positive Antibody Screen NEGATIVE Crossmatch
--- NOTE | 2022-06-14 12:31 | P.OP_ITS ---
Operative Note Operative Note Date of Service: 06/14/22 Narrative: Preop diagnosis: severe Parkinson's ds with dysphagia Postop diagnosis: the same Procedure: PEG tube placement Surgeon: Sae iLzarraga MD The patient is a 61M with cirrhosis, advanced Parkinson's ds with dysphagia, co gnitive impairment, referred for PEG tube placement in view of aspiration with a failed swallow study. Consent was signed by court-designated guardian Tanesha Pruitt. The patient was brought to the OR and placed supine under general anesthesia via ET tube. A surgical timeout was done. The pt received Cefazolin preop. I inserted the endoscope into the oral orifice and advanced into the pharynx. The esophageal slit was easily intubated. The scope was advanced through the length of the esophagus in to the stomach. The stomach was insufflated. Transillumination was easily seen in the epigastric area. Indentation on the anterior stomach wall with pressure on this site with a finger was also easily seen. This area was prepped and draped. Lidocaine 1% was used for local anesthesia. A small stab incision was made on the skin with a blade 11. The large gauge needle with the plastic cannula was inserted and this was seen in the stomach lumen. The needle was removed and the cannula was left in place. The guidewire was inserted through the cannula and this was grasped with a snare. This was pulled out through the mouthalong with the endoscopy. I looped the gastrostomy tube onto the guidewire and the guidewire was pulled out from the abdominal pull, pulling the PEG tube with this. The PEG tube was pulled until the inner bolster was snug on the anterior stomach wall. I reinserted the endoscopy and visualized the innter bolster. This appeared to be in good position. I pulled out the endoscopy completely. The external bolster was applied to make this snug on the abdominal wall. Dressings were applied and the procedure was completed. The patient tolerated the procedure well. There were no immediate complications. He was extubated and transferred to the recovery room with stable VS. There was minimal blood loss. There was no bleeding in the stomach and esophagus.
--- NOTE | 2022-06-14 12:56 | HO.ANESPROP2 ---
[facility] Active Problems Active Problems: All Active Problems (Updated 06/13/22 @ 10:55 by Heber Cifuentes MD) Ventricular arrhythmia (Acute) Right lower lobe pneumonia (Acute) Dysphagia, oropharyngeal phase (Acute) Fever (Acute) Parkinson disease (Acute) Toxic metabolic encephalopathy (Acute) Type 2 diabetes mellitus with diabetic polyneuropathy (Acute) CKD (chronic kidney disease) stage 3, GFR 30-59 ml/min (Acute) Respiratory arrest associated with feeding (Acute) Unspecified dementia with behavioral disturbance (Acute) Mild cognitive impairment, so stated (Acute) Schizophrenia (Acute) Cirrhosis (Acute) Acute on chronic diastolic (congestive) heart failure (Acute) Acute exacerbation of CHF (congestive heart failure) (Acute) Acute kidney injury superimposed on chronic kidney disease (Acute) Past Medical History Medical History (Updated 06/13/22 @ 10:55 by Heber Cifuentes MD) Abnormal findings on diagnostic imaging of liver and biliary tract Acute kidney failure, unspecified Acute respiratory failure with hypoxia Alcohol abuse, uncomplicated Alcoholic cirrhosis of liver with ascites Allergic rhinitis due to pollen Anemia Ataxia Cannabis use, unspecified, uncomplicated Chronic kidney disease, stage 3 unspecified Chronic renal failure CKD (chronic kidney disease) stage 3, GFR 30-59 ml/min Cocaine abuse, uncomplicated Dementia Dementia in other diseases classified elsewhere with behavioral disturbance Diabetes Disorder of urea cycle metabolism, unspecified Drug abuse, cocaine type Dysphagia, oral phase Dysphagia, oropharyngeal phase Essential (primary) hypertension Essential tremor ETOH abuse Hepatic failure, unspecified without coma Hepatomegaly, not elsewhere classified Hereditary and idiopathic neuropathy, unspecified Hereditary ataxia, unspecified Hyperosmolality and hypernatremia Intracranial hemorrhage, subdural Mild cognitive impairment, so stated Muscle weakness (generalized) Myopia, bilateral Orthostatic hypotension Osteophyte, unspecified joint Other chronic allergic conjunctivitis Other lack of coordination Other pancytopenia Other skin changes Other specified eating disorder Other speech disturbances Pain in unspecified shoulder Parkinson disease Pneumonitis due to inhalation of food and vomit Repeated falls Schizophrenia Sepsis, unspecified organism Subdural hematoma Tinea pedis Toxic metabolic encephalopathy Traumatic subdural hemorrhage without loss of consciousness, subsequent encounter Type 2 diabetes mellitus with diabetic polyneuropathy Unspecified dementia with behavioral disturbance Unsteadiness on feet Family History Family History Other Hypertension Family history of problems with anesthesia: No Surgical History History of Problems with Anesthesia: No Social History Social History Household Members: None Household Members Other:: Other residents Housing: Apartment Housing Other:: [facility] Do you presently have visiting nurse or other home services: No Unable to assess alcohol history related to: Unknown Alcohol intake: former Patient Tobacco Use Status: Former Tobacco user Cigarettes Per Day: 1 Second Hand Smoke Exposure: No Use of substances other than those prescribed or required for medical reasons: No Currently Displaying Signs/Symptoms of Drug Intoxication Withdrawal: No Have you been hit, kicked, punched, or otherwise hurt by someone within the past year? If so, by whom?: No Do you feel safe in your current relationship?: No Current Relationship Is there a partner from a previous relationship who is making you feel unsafe now?: No Are you made to feel afraid or neglected: No Are you DNR?: No Advance Directives: No Advance Directives Information Provided: No Advance Directives on File: No Do you have thoughts of harming others: None Do you have a plan to hurt others: No Plan Recently lost weight without trying: No How much weight loss: Not applicable Eating poorly because of decreased appetite: No Nutrition screen score: 0 service: No ([employer]) Current occupational status: disabled Meds Allergies Allergy/AdvReac Type Severity Reaction Status Date / Time pollen extracts Allergy Unknown Verified 03/20/22 13:42 ragweed pollen Allergy Unknown Verified 03/20/22 13:42 Active Medications: Current Medications Acetaminophen (Acetaminophen Supp 650 Mg Supp.Rect) [address] Q6H PRN PRN Reason: Fever >100.4 Last Admin: 06/08/22 11:49 Dose: 650 mg Amlodipine Besylate (Amlodipine Besylate 10 Mg Tablet) 10 mg G-TUBE DAILY ANDREY; Protocol Last Admin: 06/14/22 10:28 Dose: Not Given Carbidopa/Levodopa (Carbidopa/Levodopa 25/100 Tablet) 1 tab NG-TUBE QID ANDREY Last Admin: 06/14/22 10:28 Dose: Not Given Heparin Sodium (Porcine) (Heparin Sodium,Porcine 5,000 Unit/Ml Vial) 5,000 unit SUBCUT Q8H ANDREY Last Admin: 06/14/22 06:05 Dose: Not Given Hydralazine HCl (Hydralazine Hcl 20 Mg/Ml Vial) 10 mg IVPUSH Q6H PRN; Protocol PRN Reason: SBP > 180 Last Admin: 06/09/22 03:35 Dose: 10 mg Piperacillin Sod/Tazobactam (Sod 4.5 gm/ Sodium Chloride) 100 mls @ 200 mls/hr IV Q6H [facility] Last Infusion: 06/14/22 07:17 Dose: Infused Vancomycin HCl 750 mg/ Sodium (Chloride) 265 mls @ 265 mls/hr IV Q24H [facility] Last Infusion: 06/14/22 01:12 Dose: Infused Insulin Glargine (Insulin Glargine,Hum.Rec.Anlog 100 Unit/Ml 10 Ml Vial) 30 unit SUBCUT DAILY [facility] Last Admin: 06/14/22 10:29 Dose: Not Given Insulin Human Lispro (Insulin Lispro 100 Unit/Ml 3 Ml Vial) 0 unit SUBCUT QIDACHS [facility]; Protocol Last Admin: 06/14/22 09:21 Dose: Not Given Levothyroxine Sodium (Levothyroxine Sodium 25 Mcg Tablet) 25 mcg NG-TUBE DAILY@0600 [facility] Last Admin: 06/14/22 06:06 Dose: Not Given Metoprolol Tartrate (Metoprolol Tartrate 25 Mg Tablet) 25 mg NG-TUBE BID [facility]; Protocol Last Admin: 06/14/22 10:29 Dose: Not Given Modafinil (Modafinil 100 Mg Tablet) 200 mg NG-TUBE DAILY [facility] Last Admin: 06/14/22 10:29 Dose: Not Given Morphine Sulfate (Morphine Sulfate 2 Mg/Ml Cartridge) 1 mg IVPUSH Q4H PRN; Protocol PRN Reason: Pain, Severe (Pain Scale 7-10) Omeprazole (Omeprazole 20 Mg/10 Ml Susp.Recon) 40 mg G-TUBE DAILY@0630 [facility] Last Admin: 06/14/22 06:06 Dose: Not Given Pharmacy Consult (Consult Rx Perform Med Rec) 1 each MISCELLANE ONCE PRN PRN Reason: Consult order Pharmacy Consult (Consult Rx Vancomycin Dosing) 1 each MISCELLANE DAILY PRN PRN Reason: Consult order Sodium Chloride (0.9 % Sodium Chloride Flush 3 Ml Syringe) 3 ml IVFLUSH QSHIFT [facility] Last Admin: 06/14/22 09:41 Dose: 3 ml Home Medications Medication Instructions Recorded Confirmed Last Taken Type benztropine 1 mg tablet 1 mg PO BID 11/18/20 05/17/22 Unknown History carbidopa 25 mg-levodopa 100 mg 1 tab PO QID 11/18/20 05/17/22 Unknown History tablet (Sinemet) fluphenazine decanoate 25 mg/mL 50 mg subcut Q14D 11/18/20 05/17/22 03/16/22 History injection solution miconazole nitrate 2 % topical 1 spray topical BID PRN fungal 11/18/20 05/17/22 Unknown History spray (Lotrimin AF) infection tramadol 50 mg tablet 50 mg PO BID 11/18/20 05/17/22 Unknown History docusate sodium 100 mg tablet 100 mg PO BEDTIME 12/10/20 05/17/22 Unknown History sennosides 8.6 mg tablet (senna) 8.6 mg PO DAILY PRN Constipation 12/10/20 05/17/22 Unknown History amlodipine 10 mg tablet 10 mg PO BEDTIME 02/19/22 05/17/22 Unknown History levothyroxine 25 mcg tablet 25 mcg PO DAILY@0600 02/19/22 05/17/22 Unknown History multivitamin 1 tab PO DAILY 02/19/22 05/17/22 Unknown History rifaximin 550 mg tablet (Xifaxan) 1 tab PO BID 02/19/22 05/17/22 Unknown History Calazime Skin Protectant 1 applic topical QSHIFT 03/20/22 05/17/22 Unknown History acetaminophen 325 mg tablet 650 mg PO Q4H PRN PAIN/TEMP>100 03/20/22 05/17/22 Unknown History bisacodyl 10 mg rectal suppository [address] DAILY PRN Constipation 03/20/22 05/17/22 Unknown History guaifenesin 100 mg/5 mL oral liquid 200 mg PO Q4H PRN Cough 03/20/22 05/17/22 Unknown History lactulose 20 gram/30 mL oral 20 g PO DAILY 03/20/22 05/17/22 Unknown History solution metoprolol tartrate 25 mg tablet 25 mg PO BID 03/20/22 05/17/22 Unknown History gabapentin 300 mg capsule 300 mg PO TID 05/17/22 05/17/22 Unknown History hydralazine 25 mg tablet 25 mg PO TID 05/17/22 05/17/22 Unknown History insulin glargine 100 unit/mL (3 20 unit subcut BID 05/17/22 05/17/22 Unknown History mL) subcutaneous pen (Lantus Solostar U-100 Insulin) insulin lispro 100 unit/mL See Protocol subcut QIDACHS 05/17/22 05/17/22 Unknown History subcutaneous pen (Humalog KwikPen (U-100) Insulin) metformin 1,000 mg tablet 1,000 mg PO BID 05/17/22 05/17/22 Unknown History Exam Exam Date and Time: June 14, 2022 1256 Height,Weight and Vital Signs: Height 5 ft 10 in Weight 98.7 kg Last Vital Signs Temp 98.9 F 06/14/22 10:50 Pulse 69 06/14/22 10:50 Resp 22 H 06/14/22 10:50 BP 173/54 H 06/14/22 10:50 Pulse Ox 96 06/14/22 10:50 O2 Del Method 06/14/22 10:50 O2 Flow Rate 2 06/13/22 20:00 FiO2 25 05/26/22 09:00 Pertinent Lab Results Pertinent Lab Results: Laboratory Tests 05/17/22 05/17/22 05/17/22 14:56 14:56 14:56 WBC 6.0 RBC 2.44 L Hgb 7.5 L Hct 23.1 L MCV 94.7 MCH 30.7 MCHC 32.5 RDW 18.5 H Plt Count 102 L MPV 10.5 Immature Gran % (Auto) 0.2 Neut % (Auto) 59.9 Lymph % (Auto) 19.8 L [place] % (Auto) 10.9 Eos % (Auto) 8.9 H Baso % (Auto) 0.3 Lymph # (Auto) 1.2 [place] # (Auto) 0.7 Eos # (Auto) 0.5 H Baso # (Auto) 0.0 Abs Immat Gran (auto) 0.01 Absolute Neuts (auto) 3.6 Absolute Nucleated RBC 0.000 Nucleated RBC % (auto) 0.0 PT INR O2 Saturation ABG pH at Pt Temp ABG pCO2 at Pt Temp ABG pO2 at Pt Temp ABG HCO3 ABG Base Excess (Actual) VBG pH VBG pCO2 VBG pO2 VBG HCO3 VBG O2 Saturation VBG Base Excess Sodium 136 Potassium 4.8 Chloride 108 Carbon Dioxide 22 Anion Gap 11 L BUN 35 H Creatinine 2.55 H Estim Creat Clear Calc 36.4 Estimated GFR 26 POC Glucose Random Glucose 120 H D Fasting Glucose Lactic Acid Calcium 8.2 L D Phosphorus Magnesium 2.5 Iron TIBC % Saturation Unsat Iron Binding Ferritin Total Bilirubin 0.8 AST 26 ALT 6 Alkaline Phosphatase 105 D Ammonia Lactate Dehydrogenase Troponin I High Sens B-Natriuretic Peptide 1919 H Total Protein 6.2 L Albumin 2.6 L PTH Intact Calcium (PTH Intact) Gastric Occult Blood Stool Occult Blood Random Vancomycin C. difficile Tox B Gene COVID-19 (JAS) [employer] Com Blood Type Antibody Screen Crossmatch 05/17/22 05/17/22 05/17/22 14:56 14:56 14:56 WBC RBC Hgb Hct MCV MCH MCHC RDW Plt Count MPV Immature Gran % (Auto) Neut % (Auto) Lymph % (Auto) [place] % (Auto) Eos % (Auto) Baso % (Auto) Lymph # (Auto) [place] # (Auto) Eos # (Auto) Baso # (Auto) Abs Immat Gran (auto) Absolute Neuts (auto) Absolute Nucleated RBC Nucleated RBC % (auto) PT 14.4 H INR 1.2 H O2 Saturation ABG pH at Pt Temp ABG pCO2 at Pt Temp ABG pO2 at Pt Temp ABG HCO3 ABG Base Excess (Actual) VBG pH VBG pCO2 VBG pO2 VBG HCO3 VBG O2 Saturation VBG Base Excess Sodium Potassium Chloride Carbon Dioxide Anion Gap BUN Creatinine Estim Creat Clear Calc Estimated GFR POC Glucose Random Glucose Fasting Glucose Lactic Acid Calcium Phosphorus Magnesium Iron TIBC % Saturation Unsat Iron Binding Ferritin Total Bilirubin AST ALT Alkaline Phosphatase Ammonia Lactate Dehydrogenase Troponin I High Sens 25.2 B-Natriuretic Peptide Total Protein Albumin PTH Intact Calcium (PTH Intact) Gastric Occult Blood Stool Occult Blood Random Vancomycin C. difficile Tox B Gene COVID-19 (JAS) Negative [employer] Com See Note Blood Type Antibody Screen Crossmatch 05/17/22 05/17/22 05/17/22 15:03 16:10 18:23 WBC RBC Hgb Hct MCV MCH MCHC RDW Plt Count MPV Immature Gran % (Auto) Neut % (Auto) Lymph % (Auto) [place] % (Auto) Eos % (Auto) Baso % (Auto) Lymph # (Auto) [place] # (Auto) Eos # (Auto) Baso # (Auto) Abs Immat Gran (auto) Absolute Neuts (auto) Absolute Nucleated RBC Nucleated RBC % (auto) PT INR O2 Saturation ABG pH at Pt Temp ABG pCO2 at Pt Temp ABG pO2 at Pt Temp ABG HCO3 ABG Base Excess (Actual) VBG pH 7.35 VBG pCO2 39 VBG pO2 61 VBG HCO3 21 L VBG O2 Saturation 89.0 VBG Base Excess -3.4 Sodium Potassium Chloride Carbon Dioxide Anion Gap BUN Creatinine Estim Creat Clear Calc Estimated GFR POC Glucose Random Glucose Fasting Glucose Lactic Acid 1.9 Calcium Phosphorus Magnesium Iron TIBC % Saturation Unsat Iron Binding Ferritin Total Bilirubin AST ALT Alkaline Phosphatase Ammonia Lactate Dehydrogenase Troponin I High Sens B-Natriuretic Peptide 1797 H Total Protein Albumin PTH Intact Calcium (PTH Intact) Gastric Occult Blood Stool Occult Blood Random Vancomycin C. difficile Tox B Gene COVID-19 (JAS) [employer] Blood Type Antibody Screen Crossmatch 05/18/22 05/18/22 05/18/22 09:26 11:49 16:00 WBC RBC Hgb Hct MCV MCH MCHC RDW Plt Count MPV Immature Gran % (Auto) Neut % (Auto) Lymph % (Auto) [place] % (Auto) Eos % (Auto) Baso % (Auto) Lymph # (Auto) [place] # (Auto) Eos # (Auto) Baso # (Auto) Abs Immat Gran (auto) Absolute Neuts (auto) Absolute Nucleated RBC Nucleated RBC % (auto) PT INR O2 Saturation ABG pH at Pt Temp ABG pCO2 at Pt Temp ABG pO2 at Pt Temp ABG HCO3 ABG Base Excess (Actual) VBG pH VBG pCO2 VBG pO2 VBG HCO3 VBG O2 Saturation VBG Base Excess Sodium 136 Potassium 4.5 Chloride 108 Carbon Dioxide 20 L Anion Gap 13 BUN 38 H Creatinine 2.40 H Estim Creat Clear Calc 41.3 Estimated GFR 27 POC Glucose 163 H 121 H Random Glucose 153 H Fasting Glucose Lactic Acid Calcium 7.9 L Phosphorus Magnesium Iron TIBC % Saturation Unsat Iron Binding Ferritin Total Bilirubin AST ALT Alkaline Phosphatase Ammonia Lactate Dehydrogenase Troponin I High Sens B-Natriuretic Peptide Total Protein Albumin PTH Intact Calcium (PTH Intact) Gastric Occult Blood Stool Occult Blood Random Vancomycin C. difficile Tox B Gene COVID-19 (JAS) COVID-19 [employer] Blood Type Antibody Screen Crossmatch 05/18/22 05/19/22 05/19/22 20:49 06:24 07:19 WBC RBC Hgb Hct MCV MCH MCHC RDW Plt Count MPV Immature Gran % (Auto) Neut % (Auto) Lymph % (Auto) [place] % (Auto) Eos % (Auto) Baso % (Auto) Lymph # (Auto) [place] # (Auto) Eos # (Auto) Baso # (Auto) Abs Immat Gran (auto) Absolute Neuts (auto) Absolute Nucleated RBC Nucleated RBC % (auto) PT INR O2 Saturation ABG pH at Pt Temp ABG pCO2 at Pt Temp ABG pO2 at Pt Temp ABG HCO3 ABG Base Excess (Actual) VBG pH VBG pCO2 VBG pO2 VBG HCO3 VBG O2 Saturation VBG Base Excess Sodium 136 Potassium 4.5 Chloride 108 Carbon Dioxide 21 L Anion Gap 12 BUN 40 H Creatinine 2.59 H Estim Creat Clear Calc 38.3 Estimated GFR 25 POC Glucose 150 H 120 H Random Glucose 127 H Fasting Glucose Lactic Acid Calcium 7.9 L Phosphorus Magnesium Iron TIBC % Saturation Unsat Iron Binding Ferritin Total Bilirubin AST ALT Alkaline Phosphatase Ammonia Lactate Dehydrogenase Troponin I High Sens B-Natriuretic Peptide Total Protein Albumin PTH Intact Calcium (PTH Intact) Gastric Occult Blood Stool Occult Blood Random Vancomycin C. difficile Tox B Gene COVID-19 (JAS) COVID-19 Clin Com Blood Type Antibody Screen Crossmatch 05/19/22 05/19/22 05/19/22 11:05 13:12 15:42 WBC RBC Hgb Hct MCV MCH MCHC RDW Plt Count MPV Immature Gran % (Auto) Neut % (Auto) Lymph % (Auto) [place] % (Auto) Eos % (Auto) Baso % (Auto) Lymph # (Auto) [place] # (Auto) Eos # (Auto) Baso # (Auto) Abs Immat Gran (auto) Absolute Neuts (auto) Absolute Nucleated RBC Nucleated RBC % (auto) PT INR O2 Saturation ABG pH at Pt Temp ABG pCO2 at Pt Temp ABG pO2 at Pt Temp ABG HCO3 ABG Base Excess (Actual) VBG pH VBG pCO2 VBG pO2 VBG HCO3 VBG O2 Saturation VBG Base Excess Sodium Potassium Chloride Carbon Dioxide Anion Gap BUN Creatinine Estim Creat Clear Calc Estimated GFR POC Glucose 130 H 95 Random Glucose Fasting Glucose Lactic Acid Calcium Phosphorus Magnesium Iron TIBC % Saturation Unsat Iron Binding Ferritin Total Bilirubin AST ALT Alkaline Phosphatase Ammonia 57 H Lactate Dehydrogenase Troponin I High Sens B-Natriuretic Peptide Total Protein Albumin PTH Intact Calcium (PTH Intact) Gastric Occult Blood Stool Occult Blood Random Vancomycin C. difficile Tox B Gene COVID-19 (JAS) COVID[employer]19 [employer] [facility] Blood Type Antibody Screen Crossmatch 05/19/22 05/19/22 05/19/22 17:39 21:37 21:37 WBC 9.3 RBC 2.28 L Hgb 7.1 L Hct 21.4 L MCV 93.9 MCH 31.1 MCHC 33.2 RDW 18.4 H Plt Count 127 L MPV 10.5 Immature Gran % (Auto) Neut % (Auto) Lymph % (Auto) [place] % (Auto) Eos % (Auto) Baso % (Auto) Lymph # (Auto) [place] # (Auto) Eos # (Auto) Baso # (Auto) Abs Immat Gran (auto) Absolute Neuts (auto) Absolute Nucleated RBC 0.000 Nucleated RBC % (auto) 0.0 PT INR O2 Saturation 96.0 ABG pH at Pt Temp 7.41 ABG pCO2 at Pt Temp 29 L ABG pO2 at Pt Temp 83 ABG HCO3 18 L ABG Base Excess (Actual) -4.8 VBG pH VBG pCO2 VBG pO2 VBG HCO3 VBG O2 Saturation VBG Base Excess Sodium 140 Potassium 4.1 Chloride 108 Carbon Dioxide 22 Anion Gap 14 BUN 44 H Creatinine 2.78 H Estim Creat Clear Calc 35.7 Estimated GFR 23 POC Glucose Random Glucose 129 H Fasting Glucose Lactic Acid Calcium 8.0 L Phosphorus Magnesium Iron TIBC % Saturation Unsat Iron Binding Ferritin Total Bilirubin 1.1 H AST 45 H D ALT 6 Alkaline Phosphatase 106 Ammonia Lactate Dehydrogenase Troponin I High Sens B-Natriuretic Peptide Total Protein 6.4 L Albumin 2.8 L PTH Intact Calcium (PTH Intact) Gastric Occult Blood Stool Occult Blood Random Vancomycin C. difficile Tox B Gene COVID-19 (JAS) COVID-19 [employer] Blood Type Antibody Screen Crossmatch 05/19/22 05/19/22 05/19/22 21:37 21:37 21:42 WBC RBC Hgb Hct MCV MCH MCHC RDW Plt Count MPV Immature Gran % (Auto) Neut % (Auto) Lymph % (Auto) [place] % (Auto) Eos % (Auto) Baso % (Auto) Lymph # (Auto) [place] # (Auto) Eos # (Auto) Baso # (Auto) Abs Immat Gran (auto) Absolute Neuts (auto) Absolute Nucleated RBC Nucleated RBC % (auto) PT INR O2 Saturation ABG pH at Pt Temp ABG pCO2 at Pt Temp ABG pO2 at Pt Temp ABG HCO3 ABG Base Excess (Actual) VBG pH 7.30 L VBG pCO2 45 VBG pO2 91 VBG HCO3 22 VBG O2 Saturation 98.0 VBG Base Excess -3.2 Sodium Potassium Chloride Carbon Dioxide Anion Gap BUN Creatinine Estim Creat Clear Calc Estimated GFR POC Glucose Random Glucose Fasting Glucose Lactic Acid 1.5 Calcium Phosphorus Magnesium Iron TIBC % Saturation Unsat Iron Binding Ferritin Total Bilirubin AST ALT Alkaline Phosphatase Ammonia 50 Lactate Dehydrogenase Troponin I High Sens B-Natriuretic Peptide Total Protein Albumin PTH Intact Calcium (PTH Intact) Gastric Occult Blood Stool Occult Blood Random Vancomycin C. difficile Tox B Gene COVID-19 (JAS) COVID-19 Clin Com Blood Type Antibody Screen Crossmatch 05/19/22 05/20/22 05/20/22 22:07 00:48 05:20 WBC 6.5 RBC 1.73 L D Hgb 5.4 L* D Hct 16.3 L* D MCV 94.2 MCH 31.2 MCHC 33.1 RDW 18.6 H Plt Count 69 L D MPV 9.9 Immature Gran % (Auto) 0.3 Neut % (Auto) 76.7 H Lymph % (Auto) 11.8 L [place] % (Auto) 9.3 Eos % (Auto) 1.7 Baso % (Auto) 0.2 Lymph # (Auto) 0.8 L [place] # (Auto) 0.6 Eos # (Auto) 0.1 Baso # (Auto) 0.0 Abs Immat Gran (auto) 0.02 Absolute Neuts (auto) 5.0 Absolute Nucleated RBC 0.000 Nucleated RBC % (auto) 0.0 PT INR O2 Saturation ABG pH at Pt Temp ABG pCO2 at Pt Temp ABG pO2 at Pt Temp ABG HCO3 ABG Base Excess (Actual) VBG pH VBG pCO2 VBG pO2 VBG HCO3 VBG O2 Saturation VBG Base Excess Sodium Potassium Chloride Carbon Dioxide Anion Gap BUN Creatinine Estim Creat Clear Calc Estimated GFR POC Glucose 109 Random Glucose Fasting Glucose Lactic Acid Calcium Phosphorus Magnesium Iron TIBC % Saturation Unsat Iron Binding Ferritin Total Bilirubin AST ALT Alkaline Phosphatase Ammonia Lactate Dehydrogenase Troponin I High Sens 47.0 H D B-Natriuretic Peptide Total Protein Albumin PTH Intact Calcium (PTH Intact) Gastric Occult Blood Stool Occult Blood Random Vancomycin C. difficile Tox B Gene COVID-19 (JAS) COVIDPropagenix19 [facility] Blood Type Antibody Screen Crossmatch 05/20/22 05/20/22 05/20/22 05:20 05:20 05:25 WBC RBC Hgb Hct MCV MCH MCHC RDW Plt Count MPV Immature Gran % (Auto) Neut % (Auto) Lymph % (Auto) [place] % (Auto) Eos % (Auto) Baso % (Auto) Lymph # (Auto) [place] # (Auto) Eos # (Auto) Baso # (Auto) Abs Immat Gran (auto) Absolute Neuts (auto) Absolute Nucleated RBC Nucleated RBC % (auto) PT INR O2 Saturation ABG pH at Pt Temp ABG pCO2 at Pt Temp ABG pO2 at Pt Temp ABG HCO3 ABG Base Excess (Actual) VBG pH 7.42 VBG pCO2 28 VBG pO2 50 VBG HCO3 18 L VBG O2 Saturation 82.0 VBG Base Excess -4.8 Sodium 139 Potassium 3.9 Chloride 108 Carbon Dioxide 23 Anion Gap 12 BUN 45 H Creatinine 2.68 H Estim Creat Clear Calc 37.3 Estimated GFR 24 POC Glucose Random Glucose 118 H Fasting Glucose Lactic Acid Calcium 7.9 L Phosphorus 5.5 H Magnesium 2.2 Iron TIBC % Saturation Unsat Iron Binding Ferritin Total Bilirubin 0.7 AST 32 ALT 6 Alkaline Phosphatase 74 D Ammonia 29 Lactate Dehydrogenase Troponin I High Sens B-Natriuretic Peptide Total Protein 5.4 L Albumin 2.8 L PTH Intact Calcium (PTH Intact) Gastric Occult Blood Stool Occult Blood Random Vancomycin C. difficile Tox B Gene COVID-19 (JAS) COVID-19 [employer] [facility] Blood Type Antibody Screen Crossmatch 05/20/22 05/20/22 05/20/22 06:07 08:04 11:45 WBC RBC Hgb Hct MCV MCH MCHC RDW Plt Count MPV Immature Gran % (Auto) Neut % (Auto) Lymph % (Auto) [place] % (Auto) Eos % (Auto) Baso % (Auto) Lymph # (Auto) [place] # (Auto) Eos # (Auto) Baso # (Auto) Abs Immat Gran (auto) Absolute Neuts (auto) Absolute Nucleated RBC Nucleated RBC % (auto) PT INR O2 Saturation ABG pH at Pt Temp ABG pCO2 at Pt Temp ABG pO2 at Pt Temp ABG HCO3 ABG Base Excess (Actual) VBG pH VBG pCO2 VBG pO2 VBG HCO3 VBG O2 Saturation VBG Base Excess Sodium Potassium Chloride Carbon Dioxide Anion Gap BUN Creatinine Estim Creat Clear Calc Estimated GFR POC Glucose 114 129 H Random Glucose Fasting Glucose Lactic Acid Calcium Phosphorus Magnesium Iron TIBC % Saturation Unsat Iron Binding Ferritin Total Bilirubin AST ALT Alkaline Phosphatase Ammonia Lactate Dehydrogenase Troponin I High Sens B-Natriuretic Peptide Total Protein Albumin PTH Intact Calcium (PTH Intact) Gastric Occult Blood Stool Occult Blood Random Vancomycin C. difficile Tox B Gene COVID-19 (JAS) COVID-19 [employer] [facility] Blood Type A Positive Antibody Screen NEGATIVE Crossmatch See Detail 05/20/22 05/20/22 05/20/22 13:37 15:53 18:09 WBC RBC Hgb Hct MCV MCH MCHC RDW Plt Count MPV Immature Gran % (Auto) Neut % (Auto) Lymph % (Auto) [place] % (Auto) Eos % (Auto) Baso % (Auto) Lymph # (Auto) [place] # (Auto) Eos # (Auto) Baso # (Auto) Abs Immat Gran (auto) Absolute Neuts (auto) Absolute Nucleated RBC Nucleated RBC % (auto) PT INR O2 Saturation ABG pH at Pt Temp ABG pCO2 at Pt Temp ABG pO2 at Pt Temp ABG HCO3 ABG Base Excess (Actual) VBG pH VBG pCO2 VBG pO2 VBG HCO3 VBG O2 Saturation VBG Base Excess Sodium 140 Potassium 3.9 Chloride 106 Carbon Dioxide 22 Anion Gap 16 BUN 46 H Creatinine 2.75 H Estim Creat Clear Calc 36.4 Estimated GFR 23 POC Glucose 113 Random Glucose 117 H Fasting Glucose Lactic Acid Calcium 8.2 L Phosphorus Magnesium Iron TIBC % Saturation Unsat Iron Binding Ferritin Total Bilirubin AST ALT Alkaline Phosphatase Ammonia Lactate Dehydrogenase Troponin I High Sens B-Natriuretic Peptide Total Protein Albumin PTH Intact Calcium (PTH Intact) Gastric Occult Blood NEGATIVE Stool Occult Blood Random Vancomycin C. difficile Tox B Gene COVID-19 (JAS) COVID-19 [employer] [facility] Blood Type Antibody Screen Crossmatch 05/20/22 05/20/22 05/21/22 18:09 21:18 05:10 WBC 8.1 3.8 L RBC 2.40 L D 2.20 L Hgb 7.5 L D 6.8 L* Hct 22.0 L D 20.4 L* MCV 91.7 92.7 MCH 31.3 30.9 MCHC 34.1 33.3 RDW 18.2 H 18.5 H Plt Count 80 L 51 L D MPV 10.5 10.4 Immature Gran % (Auto) 0.5 H 0.5 H Neut % (Auto) 80.9 H 67.0 Lymph % (Auto) 7.0 L 14.1 L [place] % (Auto) 9.5 10.1 Eos % (Auto) 2.0 8.0 H Baso % (Auto) 0.1 0.3 Lymph # (Auto) 0.6 L 0.5 L [place] # (Auto) 0.8 0.4 Eos # (Auto) 0.2 0.3 Baso # (Auto) 0.0 0.0 Abs Immat Gran (auto) 0.04 H 0.02 Absolute Neuts (auto) 6.6 2.5 Absolute Nucleated RBC 0.000 0.000 Nucleated RBC % (auto) 0.0 0.0 PT INR O2 Saturation ABG pH at Pt Temp ABG pCO2 at Pt Temp ABG pO2 at Pt Temp ABG HCO3 ABG Base Excess (Actual) VBG pH VBG pCO2 VBG pO2 VBG HCO3 VBG O2 Saturation VBG Base Excess Sodium Potassium Chloride Carbon Dioxide Anion Gap BUN Creatinine Estim Creat Clear Calc Estimated GFR POC Glucose 117 H Random Glucose Fasting Glucose Lactic Acid Calcium Phosphorus Magnesium Iron TIBC % Saturation Unsat Iron Binding Ferritin Total Bilirubin AST ALT Alkaline Phosphatase Ammonia Lactate Dehydrogenase Troponin I High Sens B-Natriuretic Peptide Total Protein Albumin PTH Intact Calcium (PTH Intact) Gastric Occult Blood Stool Occult Blood Random Vancomycin C. difficile Tox B Gene COVID-19 (JAS) COVID-19 Clin Com Blood Type Antibody Screen Crossmatch 05/21/22 05/21/22 05/21/22 05:10 05:21 11:44 WBC RBC Hgb Hct MCV MCH MCHC RDW Plt Count MPV Immature Gran % (Auto) Neut % (Auto) Lymph % (Auto) [place] % (Auto) Eos % (Auto) Baso % (Auto) Lymph # (Auto) [place] # (Auto) Eos # (Auto) Baso # (Auto) Abs Immat Gran (auto) Absolute Neuts (auto) Absolute Nucleated RBC Nucleated RBC % (auto) PT INR O2 Saturation ABG pH at Pt Temp ABG pCO2 at Pt Temp ABG pO2 at Pt Temp ABG HCO3 ABG Base Excess (Actual) VBG pH 7.37 VBG pCO2 27 VBG pO2 73 VBG HCO3 16 L VBG O2 Saturation 95.0 VBG Base Excess -7.9 Sodium 140 Potassium 3.7 Chloride 107 Carbon Dioxide 21 L Anion Gap 16 BUN 43 H Creatinine 2.71 H Estim Creat Clear Calc 36.9 Estimated GFR 24 POC Glucose 123 H Random Glucose 127 H Fasting Glucose Lactic Acid Calcium 8.1 L Phosphorus 6.1 H Magnesium 2.1 Iron TIBC % Saturation Unsat Iron Binding Ferritin Total Bilirubin AST ALT Alkaline Phosphatase Ammonia Lactate Dehydrogenase Troponin I High Sens B-Natriuretic Peptide Total Protein Albumin PTH Intact Calcium (PTH Intact) Gastric Occult Blood Stool Occult Blood Random Vancomycin C. difficile Tox B Gene COVID-19 (JAS) [facility] Type Antibody Screen Crossmatch 05/21/22 05/21/22 05/22/22 16:56 18:02 00:15 WBC RBC Hgb Hct MCV MCH MCHC RDW Plt Count MPV Immature Gran % (Auto) Neut % (Auto) Lymph % (Auto) [place] % (Auto) Eos % (Auto) Baso % (Auto) Lymph # (Auto) [place] # (Auto) Eos # (Auto) Baso # (Auto) Abs Immat Gran (auto) Absolute Neuts (auto) Absolute Nucleated RBC Nucleated RBC % (auto) PT INR O2 Saturation ABG pH at Pt Temp ABG pCO2 at Pt Temp ABG pO2 at Pt Temp ABG HCO3 ABG Base Excess (Actual) VBG pH VBG pCO2 VBG pO2 VBG HCO3 VBG O2 Saturation VBG Base Excess Sodium Potassium Chloride Carbon Dioxide Anion Gap BUN Creatinine Estim Creat Clear Calc Estimated GFR POC Glucose 108 107 106 Random Glucose Fasting Glucose Lactic Acid Calcium Phosphorus Magnesium Iron TIBC % Saturation Unsat Iron Binding Ferritin Total Bilirubin AST ALT Alkaline Phosphatase Ammonia Lactate Dehydrogenase Troponin I High Sens B-Natriuretic Peptide Total Protein Albumin PTH Intact Calcium (PTH Intact) Gastric Occult Blood Stool Occult Blood Random Vancomycin C. difficile Tox B Gene COVID-19 (JAS) COVID-19 [employer] Blood Type Antibody Screen Crossmatch 05/22/22 05/22/22 05/22/22 05:10 05:10 05:22 WBC 4.1 L RBC 2.39 L Hgb 7.3 L Hct 21.9 L MCV 91.6 MCH 30.5 MCHC 33.3 RDW 18.2 H Plt Count 55 L MPV 10.5 Immature Gran % (Auto) 0.2 Neut % (Auto) 72.7 Lymph % (Auto) 12.8 L [place] % (Auto) 11.6 H Eos % (Auto) 2.5 Baso % (Auto) 0.2 Lymph # (Auto) 0.5 L [place] # (Auto) 0.5 Eos # (Auto) 0.1 Baso # (Auto) 0.0 Abs Immat Gran (auto) 0.01 Absolute Neuts (auto) 2.9 Absolute Nucleated RBC 0.000 Nucleated RBC % (auto) 0.0 PT INR O2 Saturation ABG pH at Pt Temp ABG pCO2 at Pt Temp ABG pO2 at Pt Temp ABG HCO3 ABG Base Excess (Actual) VBG pH 7.43 VBG pCO2 30 VBG pO2 69 VBG HCO3 20 L VBG O2 Saturation 95.0 VBG Base Excess -3.2 Sodium 141 Potassium 3.6 Chloride 108 Carbon Dioxide 21 L Anion Gap 16 BUN 45 H Creatinine 2.95 H Estim Creat Clear Calc 34.5 Estimated GFR 22 POC Glucose Random Glucose 106 Fasting Glucose Lactic Acid Calcium 7.9 L Phosphorus 5.9 H Magnesium 2.2 Iron TIBC % Saturation Unsat Iron Binding Ferritin Total Bilirubin 1.6 H AST 46 H D ALT 8 Alkaline Phosphatase 65 Ammonia Lactate Dehydrogenase Troponin I High Sens B-Natriuretic Peptide Total Protein 5.5 L Albumin 3.1 L PTH Intact Calcium (PTH Intact) Gastric Occult Blood Stool Occult Blood Random Vancomycin C. difficile Tox B Gene COVID-19 (JAS) COVID-19 Clin Com Blood Type Antibody Screen Crossmatch 05/22/22 05/22/22 05/22/22 05:36 12:06 18:03 WBC RBC Hgb Hct MCV MCH MCHC RDW Plt Count MPV Immature Gran % (Auto) Neut % (Auto) Lymph % (Auto) [place] % (Auto) Eos % (Auto) Baso % (Auto) Lymph # (Auto) [place] # (Auto) Eos # (Auto) Baso # (Auto) Abs Immat Gran (auto) Absolute Neuts (auto) Absolute Nucleated RBC Nucleated RBC % (auto) PT INR O2 Saturation ABG pH at Pt Temp ABG pCO2 at Pt Temp ABG pO2 at Pt Temp ABG HCO3 ABG Base Excess (Actual) VBG pH VBG pCO2 VBG pO2 VBG HCO3 VBG O2 Saturation VBG Base Excess Sodium Potassium Chloride Carbon Dioxide Anion Gap BUN Creatinine Estim Creat Clear Calc Estimated GFR POC Glucose 98 125 H 130 H Random Glucose Fasting Glucose Lactic Acid Calcium Phosphorus Magnesium Iron TIBC % Saturation Unsat Iron Binding Ferritin Total Bilirubin AST ALT Alkaline Phosphatase Ammonia Lactate Dehydrogenase Troponin I High Sens B-Natriuretic Peptide Total Protein Albumin PTH Intact Calcium (PTH Intact) Gastric Occult Blood Stool Occult Blood Random Vancomycin C. difficile Tox B Gene COVID-19 (JAS) COVID-19 Clin Com Blood Type Antibody Screen Crossmatch 05/23/22 05/23/22 05/23/22 00:07 05:25 05:25 WBC 3.7 L RBC 2.50 L Hgb 7.8 L Hct 23.2 L MCV 92.8 MCH 31.2 MCHC 33.6 RDW 18.3 H Plt Count 55 L MPV 10.4 Immature Gran % (Auto) 0.5 H Neut % (Auto) 69.2 Lymph % (Auto) 14.6 L [place] % (Auto) 11.1 H Eos % (Auto) 4.3 H Baso % (Auto) 0.3 Lymph # (Auto) 0.5 L [place] # (Auto) 0.4 Eos # (Auto) 0.2 Baso # (Auto) 0.0 Abs Immat Gran (auto) 0.02 Absolute Neuts (auto) 2.6 Absolute Nucleated RBC 0.000 Nucleated RBC % (auto) 0.0 PT INR O2 Saturation ABG pH at Pt Temp ABG pCO2 at Pt Temp ABG pO2 at Pt Temp ABG HCO3 ABG Base Excess (Actual) VBG pH VBG pCO2 VBG pO2 VBG HCO3 VBG O2 Saturation VBG Base Excess Sodium 143 Potassium 3.2 L Chloride 107 Carbon Dioxide 21 L Anion Gap 18 BUN 50 H Creatinine 3.11 H Estim Creat Clear Calc 32.7 Estimated GFR 20 POC Glucose 107 Random Glucose 124 H Fasting Glucose Lactic Acid Calcium 8.6 D Phosphorus 5.4 H Magnesium 2.2 Iron TIBC % Saturation Unsat Iron Binding Ferritin Total Bilirubin 1.6 H AST 54 H ALT 6 Alkaline Phosphatase 61 Ammonia Lactate Dehydrogenase Troponin I High Sens B-Natriuretic Peptide Total Protein 6.4 L Albumin 3.9 D PTH Intact Calcium (PTH Intact) Gastric Occult Blood Stool Occult Blood Random Vancomycin C. difficile Tox B Gene COVID-19 (JAS) [facility] Blood Type Antibody Screen Crossmatch 05/23/22 05/23/22 05/23/22 05:25 05:29 06:02 WBC RBC Hgb Hct MCV MCH MCHC RDW Plt Count MPV Immature Gran % (Auto) Neut % (Auto) Lymph % (Auto) [place] % (Auto) Eos % (Auto) Baso % (Auto) Lymph # (Auto) [place] # (Auto) Eos # (Auto) Baso # (Auto) Abs Immat Gran (auto) Absolute Neuts (auto) Absolute Nucleated RBC Nucleated RBC % (auto) PT INR O2 Saturation ABG pH at Pt Temp ABG pCO2 at Pt Temp ABG pO2 at Pt Temp ABG HCO3 ABG Base Excess (Actual) VBG pH 7.41 VBG pCO2 34 VBG pO2 53 VBG HCO3 22 VBG O2 Saturation 81.0 VBG Base Excess -1.6 Sodium Potassium Chloride Carbon Dioxide Anion Gap BUN Creatinine Estim Creat Clear Calc Estimated GFR POC Glucose 115 Random Glucose Fasting Glucose Lactic Acid Calcium Phosphorus Magnesium Iron TIBC % Saturation Unsat Iron Binding Ferritin Total Bilirubin AST ALT Alkaline Phosphatase Ammonia 25 Lactate Dehydrogenase Troponin I High Sens B-Natriuretic Peptide Total Protein Albumin PTH Intact Calcium (PTH Intact) Gastric Occult Blood Stool Occult Blood Random Vancomycin C. difficile Tox B Gene COVID-19 (JAS) COVID-19 [facility] Blood Type Antibody Screen Crossmatch 05/23/22 05/23/22 05/23/22 13:56 14:47 17:25 WBC RBC Hgb Hct MCV MCH MCHC RDW Plt Count MPV Immature Gran % (Auto) Neut % (Auto) Lymph % (Auto) [place] % (Auto) Eos % (Auto) Baso % (Auto) Lymph # (Auto) [place] # (Auto) Eos # (Auto) Baso # (Auto) Abs Immat Gran (auto) Absolute Neuts (auto) Absolute Nucleated RBC Nucleated RBC % (auto) PT INR O2 Saturation ABG pH at Pt Temp ABG pCO2 at Pt Temp ABG pO2 at Pt Temp ABG HCO3 ABG Base Excess (Actual) VBG pH VBG pCO2 VBG pO2 VBG HCO3 VBG O2 Saturation VBG Base Excess Sodium Potassium Chloride Carbon Dioxide Anion Gap BUN Creatinine Estim Creat Clear Calc Estimated GFR POC Glucose 117 H 114 Random Glucose Fasting Glucose Lactic Acid Calcium Phosphorus Magnesium Iron TIBC % Saturation Unsat Iron Binding Ferritin Total Bilirubin AST ALT Alkaline Phosphatase Ammonia Lactate Dehydrogenase Troponin I High Sens B-Natriuretic Peptide Total Protein Albumin PTH Intact Calcium (PTH Intact) Gastric Occult Blood Stool Occult Blood NEGATIVE Random Vancomycin C. difficile Tox B Gene COVID-19 (JAS) [facility] [employer] Blood Type Antibody Screen Crossmatch 05/24/22 05/24/22 05/24/22 00:34 05:30 05:30 WBC 3.2 L RBC 2.23 L Hgb 7.0 L* Hct 21.0 L* MCV 94.2 MCH 31.4 MCHC 33.3 RDW 18.5 H Plt Count 45 L MPV 10.5 Immature Gran % (Auto) Neut % (Auto) Lymph % (Auto) [place] % (Auto) Eos % (Auto) Baso % (Auto) Lymph # (Auto) [place] # (Auto) Eos # (Auto) Baso # (Auto) Abs Immat Gran (auto) Absolute Neuts (auto) Absolute Nucleated RBC 0.000 Nucleated RBC % (auto) 0.0 PT 15.8 H INR 1.4 H O2 Saturation ABG pH at Pt Temp ABG pCO2 at Pt Temp ABG pO2 at Pt Temp ABG HCO3 ABG Base Excess (Actual) VBG pH VBG pCO2 VBG pO2 VBG HCO3 VBG O2 Saturation VBG Base Excess Sodium Potassium Chloride Carbon Dioxide Anion Gap BUN Creatinine Estim Creat Clear Calc Estimated GFR POC Glucose 111 Random Glucose Fasting Glucose Lactic Acid Calcium Phosphorus Magnesium Iron TIBC % Saturation Unsat Iron Binding Ferritin Total Bilirubin AST ALT Alkaline Phosphatase Ammonia Lactate Dehydrogenase Troponin I High Sens B-Natriuretic Peptide Total Protein Albumin PTH Intact Calcium (PTH Intact) Gastric Occult Blood Stool Occult Blood Random Vancomycin C. difficile Tox B Gene COVID-19 (JAS) [employer] [employer] Blood Type Antibody Screen Crossmatch 05/24/22 05/24/22 05/24/22 05:30 05:30 05:37 WBC RBC Hgb Hct MCV MCH MCHC RDW Plt Count MPV Immature Gran % (Auto) Neut % (Auto) Lymph % (Auto) [place] % (Auto) Eos % (Auto) Baso % (Auto) Lymph # (Auto) [place] # (Auto) Eos # (Auto) Baso # (Auto) Abs Immat Gran (auto) Absolute Neuts (auto) Absolute Nucleated RBC Nucleated RBC % (auto) PT INR O2 Saturation ABG pH at Pt Temp ABG pCO2 at Pt Temp ABG pO2 at Pt Temp ABG HCO3 ABG Base Excess (Actual) VBG pH VBG pCO2 VBG pO2 VBG HCO3 VBG O2 Saturation VBG Base Excess Sodium 142 Potassium 3.5 Chloride 109 H Carbon Dioxide 20 L Anion Gap 17 BUN 49 H Creatinine 2.99 H Estim Creat Clear Calc 34.0 Estimated GFR 21 POC Glucose 144 H Random Glucose 160 H Fasting Glucose Lactic Acid Calcium 8.1 L Phosphorus 5.6 H Magnesium 2.1 Iron TIBC % Saturation Unsat Iron Binding Ferritin Total Bilirubin AST ALT Alkaline Phosphatase Ammonia Lactate Dehydrogenase Troponin I High Sens B-Natriuretic Peptide 1882 H Total Protein Albumin PTH Intact Calcium (PTH Intact) Gastric Occult Blood Stool Occult Blood Random Vancomycin C. difficile Tox B Gene COVID-19 (JAS) [employer] [employer] Blood Type Antibody Screen Crossmatch 05/24/22 05/24/22 05/24/22 05:39 06:11 11:12 WBC RBC Hgb Hct MCV MCH MCHC RDW Plt Count MPV Immature Gran % (Auto) Neut % (Auto) Lymph % (Auto) [place] % (Auto) Eos % (Auto) Baso % (Auto) Lymph # (Auto) [place] # (Auto) Eos # (Auto) Baso # (Auto) Abs Immat Gran (auto) Absolute Neuts (auto) Absolute Nucleated RBC Nucleated RBC % (auto) PT INR O2 Saturation ABG pH at Pt Temp ABG pCO2 at Pt Temp ABG pO2 at Pt Temp ABG HCO3 ABG Base Excess (Actual) VBG pH 7.38 VBG pCO2 34 VBG pO2 58 VBG HCO3 20 L VBG O2 Saturation 88.0 VBG Base Excess -3.9 Sodium Potassium Chloride Carbon Dioxide Anion Gap BUN Creatinine Estim Creat Clear Calc Estimated GFR POC Glucose 177 H Random Glucose Fasting Glucose Lactic Acid Calcium Phosphorus Magnesium Iron TIBC % Saturation Unsat Iron Binding Ferritin Total Bilirubin AST ALT Alkaline Phosphatase Ammonia Lactate Dehydrogenase Troponin I High Sens B-Natriuretic Peptide Total Protein Albumin PTH Intact Calcium (PTH Intact) Gastric Occult Blood Stool Occult Blood Random Vancomycin C. difficile Tox B Gene COVID-19 (JAS) [employer] [employer] Blood Type A Positive Antibody Screen NEGATIVE Crossmatch See Detail 05/24/22 05/24/22 05/24/22 12:53 18:02 23:29 WBC RBC Hgb 7.9 L Hct 24.2 L MCV MCH MCHC RDW Plt Count MPV Immature Gran % (Auto) Neut % (Auto) Lymph % (Auto) [place] % (Auto) Eos % (Auto) Baso % (Auto) Lymph # (Auto) [place] # (Auto) Eos # (Auto) Baso # (Auto) Abs Immat Gran (auto) Absolute Neuts (auto) Absolute Nucleated RBC Nucleated RBC % (auto) PT INR O2 Saturation ABG pH at Pt Temp ABG pCO2 at Pt Temp ABG pO2 at Pt Temp ABG HCO3 ABG Base Excess (Actual) VBG pH VBG pCO2 VBG pO2 VBG HCO3 VBG O2 Saturation VBG Base Excess Sodium Potassium Chloride Carbon Dioxide Anion Gap BUN Creatinine Estim Creat Clear Calc Estimated GFR POC Glucose 190 H 184 H Random Glucose Fasting Glucose Lactic Acid Calcium Phosphorus Magnesium Iron TIBC % Saturation Unsat Iron Binding Ferritin Total Bilirubin AST ALT Alkaline Phosphatase Ammonia Lactate Dehydrogenase Troponin I High Sens B-Natriuretic Peptide Total Protein Albumin PTH Intact Calcium (PTH Intact) Gastric Occult Blood Stool Occult Blood Random Vancomycin C. difficile Tox B Gene COVID-19 (JAS) COVID-19 Clin Com Blood Type Antibody Screen Crossmatch 05/25/22 05/25/22 05/25/22 05:10 05:10 05:10 WBC 4.2 L RBC 2.54 L Hgb 7.9 L Hct 23.6 L MCV 92.9 MCH 31.1 MCHC 33.5 RDW 18.2 H Plt Count 51 L MPV 10.7 Immature Gran % (Auto) Neut % (Auto) Lymph % (Auto) [place] % (Auto) Eos % (Auto) Baso % (Auto) Lymph # (Auto) [place] # (Auto) Eos # (Auto) Baso # (Auto) Abs Immat Gran (auto) Absolute Neuts (auto) Absolute Nucleated RBC 0.000 Nucleated RBC % (auto) 0.0 PT INR O2 Saturation ABG pH at Pt Temp ABG pCO2 at Pt Temp ABG pO2 at Pt Temp ABG HCO3 ABG Base Excess (Actual) VBG pH VBG pCO2 VBG pO2 VBG HCO3 VBG O2 Saturation VBG Base Excess Sodium 145 Potassium 3.7 Chloride 109 H Carbon Dioxide 25 Anion Gap 15 BUN 51 H Creatinine 2.91 H Estim Creat Clear Calc 34.3 Estimated GFR 22 POC Glucose Random Glucose 218 H D Fasting Glucose Lactic Acid Calcium 8.3 L Phosphorus 4.1 Magnesium 2.1 Iron TIBC % Saturation Unsat Iron Binding Ferritin Total Bilirubin 1.7 H AST 57 H ALT < 6 Alkaline Phosphatase 59 Ammonia 31 Lactate Dehydrogenase Troponin I High Sens B-Natriuretic Peptide Total Protein 5.8 L Albumin 3.2 L PTH Intact Calcium (PTH Intact) Gastric Occult Blood Stool Occult Blood Random Vancomycin C. difficile Tox B Gene COVID-19 (JAS) [employer] [employer] Blood Type Antibody Screen Crossmatch 05/25/22 05/25/22 05/25/22 05:15 05:49 11:42 WBC RBC Hgb Hct MCV MCH MCHC RDW Plt Count MPV Immature Gran % (Auto) Neut % (Auto) Lymph % (Auto) [place] % (Auto) Eos % (Auto) Baso % (Auto) Lymph # (Auto) [place] # (Auto) Eos # (Auto) Baso # (Auto) Abs Immat Gran (auto) Absolute Neuts (auto) Absolute Nucleated RBC Nucleated RBC % (auto) PT INR O2 Saturation ABG pH at Pt Temp ABG pCO2 at Pt Temp ABG pO2 at Pt Temp ABG HCO3 ABG Base Excess (Actual) VBG pH 7.47 H VBG pCO2 35 VBG pO2 55 VBG HCO3 26 VBG O2 Saturation 85.0 VBG Base Excess 2.6 Sodium Potassium Chloride Carbon Dioxide Anion Gap BUN Creatinine Estim Creat Clear Calc Estimated GFR POC Glucose 197 H 189 H Random Glucose Fasting Glucose Lactic Acid Calcium Phosphorus Magnesium Iron TIBC % Saturation Unsat Iron Binding Ferritin Total Bilirubin AST ALT Alkaline Phosphatase Ammonia Lactate Dehydrogenase Troponin I High Sens B-Natriuretic Peptide Total Protein Albumin PTH Intact Calcium (PTH Intact) Gastric Occult Blood Stool Occult Blood Random Vancomycin C. difficile Tox B Gene COVID-19 (JAS) [employer] [employer] Blood Type Antibody Screen Crossmatch 05/25/22 05/26/22 05/26/22 17:32 01:20 05:05 WBC RBC Hgb Hct MCV MCH MCHC RDW Plt Count MPV Immature Gran % (Auto) Neut % (Auto) Lymph % (Auto) [place] % (Auto) Eos % (Auto) Baso % (Auto) Lymph # (Auto) [place] # (Auto) Eos # (Auto) Baso # (Auto) Abs Immat Gran (auto) Absolute Neuts (auto) Absolute Nucleated RBC Nucleated RBC % (auto) PT INR O2 Saturation ABG pH at Pt Temp ABG pCO2 at Pt Temp ABG pO2 at Pt Temp ABG HCO3 ABG Base Excess (Actual) VBG pH VBG pCO2 VBG pO2 VBG HCO3 VBG O2 Saturation VBG Base Excess Sodium Potassium Chloride Carbon Dioxide Anion Gap BUN Creatinine Estim Creat Clear Calc Estimated GFR POC Glucose 204 H 234 H Random Glucose Fasting Glucose Lactic Acid Calcium Phosphorus Magnesium Iron TIBC % Saturation Unsat Iron Binding Ferritin Total Bilirubin AST ALT Alkaline Phosphatase Ammonia Lactate Dehydrogenase Troponin I High Sens B-Natriuretic Peptide 3024 H Total Protein Albumin PTH Intact Calcium (PTH Intact) Gastric Occult Blood Stool Occult Blood Random Vancomycin C. difficile Tox B Gene COVID-19 (JAS) COVID-19 Clin Com Blood Type Antibody Screen Crossmatch 05/26/22 05/26/22 05/26/22 05:05 05:05 05:16 WBC 3.9 L RBC 2.43 L Hgb 7.5 L Hct 22.8 L MCV 93.8 MCH 30.9 MCHC 32.9 RDW 18.0 H Plt Count 46 L MPV 10.4 Immature Gran % (Auto) Neut % (Auto) Lymph % (Auto) [place] % (Auto) Eos % (Auto) Baso % (Auto) Lymph # (Auto) [place] # (Auto) Eos # (Auto) Baso # (Auto) Abs Immat Gran (auto) Absolute Neuts (auto) Absolute Nucleated RBC 0.000 Nucleated RBC % (auto) 0.0 PT INR O2 Saturation ABG pH at Pt Temp ABG pCO2 at Pt Temp ABG pO2 at Pt Temp ABG HCO3 ABG Base Excess (Actual) VBG pH 7.48 H VBG pCO2 40 VBG pO2 43 VBG HCO3 31 H VBG O2 Saturation 72.0 VBG Base Excess 7.3 Sodium 146 H Potassium 3.6 Chloride 108 Carbon Dioxide 27 Anion Gap 15 BUN 52 H Creatinine 2.81 H Estim Creat Clear Calc 35.5 Estimated GFR 23 POC Glucose Random Glucose 266 H Fasting Glucose Lactic Acid Calcium 8.2 L Phosphorus 3.7 Magnesium 2.0 Iron TIBC % Saturation Unsat Iron Binding Ferritin Total Bilirubin 1.6 H AST 48 H ALT 6 Alkaline Phosphatase 50 Ammonia Lactate Dehydrogenase Troponin I High Sens B-Natriuretic Peptide Total Protein 5.5 L Albumin 3.0 L PTH Intact Calcium (PTH Intact) Gastric Occult Blood Stool Occult Blood Random Vancomycin C. difficile Tox B Gene COVID-19 (JAS) COVIDPropagenix19 [facility] Blood Type Antibody Screen Crossmatch 05/26/22 05/26/22 05/26/22 06:18 11:27 12:02 WBC RBC Hgb Hct MCV MCH MCHC RDW Plt Count MPV Immature Gran % (Auto) Neut % (Auto) Lymph % (Auto) [place] % (Auto) Eos % (Auto) Baso % (Auto) Lymph # (Auto) [place] # (Auto) Eos # (Auto) Baso # (Auto) Abs Immat Gran (auto) Absolute Neuts (auto) Absolute Nucleated RBC Nucleated RBC % (auto) PT INR O2 Saturation ABG pH at Pt Temp ABG pCO2 at Pt Temp ABG pO2 at Pt Temp ABG HCO3 ABG Base Excess (Actual) VBG pH VBG pCO2 VBG pO2 VBG HCO3 VBG O2 Saturation VBG Base Excess Sodium Potassium Chloride Carbon Dioxide Anion Gap BUN Creatinine Estim Creat Clear Calc Estimated GFR POC Glucose 224 H 182 H Random Glucose Fasting Glucose Lactic Acid Calcium Phosphorus Magnesium Iron TIBC % Saturation Unsat Iron Binding Ferritin Total Bilirubin AST ALT Alkaline Phosphatase Ammonia Lactate Dehydrogenase Troponin I High Sens 102.4 H* D B-Natriuretic Peptide Total Protein Albumin PTH Intact Calcium (PTH Intact) Gastric Occult Blood Stool Occult Blood Random Vancomycin C. difficile Tox B Gene COVID-19 (JAS) COVID-19 [facility] Blood Type Antibody Screen Crossmatch 05/26/22 05/26/22 05/26/22 14:14 17:44 23:56 WBC RBC Hgb Hct MCV MCH MCHC RDW Plt Count MPV Immature Gran % (Auto) Neut % (Auto) Lymph % (Auto) [place] % (Auto) Eos % (Auto) Baso % (Auto) Lymph # (Auto) [place] # (Auto) Eos # (Auto) Baso # (Auto) Abs Immat Gran (auto) Absolute Neuts (auto) Absolute Nucleated RBC Nucleated RBC % (auto) PT INR O2 Saturation ABG pH at Pt Temp ABG pCO2 at Pt Temp ABG pO2 at Pt Temp ABG HCO3 ABG Base Excess (Actual) VBG pH VBG pCO2 VBG pO2 VBG HCO3 VBG O2 Saturation VBG Base Excess Sodium Potassium Chloride Carbon Dioxide Anion Gap BUN Creatinine Estim Creat Clear Calc Estimated GFR POC Glucose 172 H 150 H Random Glucose Fasting Glucose Lactic Acid Calcium Phosphorus Magnesium Iron TIBC % Saturation Unsat Iron Binding Ferritin Total Bilirubin AST ALT Alkaline Phosphatase Ammonia Lactate Dehydrogenase Troponin I High Sens 91.3 H B-Natriuretic Peptide Total Protein Albumin PTH Intact Calcium (PTH Intact) Gastric Occult Blood Stool Occult Blood Random Vancomycin C. difficile Tox B Gene COVID-19 (JAS) COVIDDiurnal [facility] Blood Type Antibody Screen Crossmatch 05/27/22 05/27/22 05/27/22 05:40 05:40 05:40 WBC 5.7 RBC 2.66 L Hgb 8.3 L Hct 25.1 L MCV 94.4 MCH 31.2 MCHC 33.1 RDW 18.1 H Plt Count 71 L D MPV 10.9 Immature Gran % (Auto) Neut % (Auto) Lymph % (Auto) [place] % (Auto) Eos % (Auto) Baso % (Auto) Lymph # (Auto) [place] # (Auto) Eos # (Auto) Baso # (Auto) Abs Immat Gran (auto) Absolute Neuts (auto) Absolute Nucleated RBC 0.000 Nucleated RBC % (auto) 0.0 PT INR O2 Saturation ABG pH at Pt Temp ABG pCO2 at Pt Temp ABG pO2 at Pt Temp ABG HCO3 ABG Base Excess (Actual) VBG pH VBG pCO2 VBG pO2 VBG HCO3 VBG O2 Saturation VBG Base Excess Sodium 149 H Potassium 3.3 Chloride 107 Carbon Dioxide 31 H Anion Gap 14 BUN 57 H Creatinine 2.70 H Estim Creat Clear Calc 35.4 Estimated GFR 24 POC Glucose Random Glucose 181 H Fasting Glucose Lactic Acid Calcium 8.7 D Phosphorus 4.1 Magnesium 1.8 Iron TIBC % Saturation Unsat Iron Binding Ferritin Total Bilirubin AST ALT Alkaline Phosphatase Ammonia 27 Lactate Dehydrogenase Troponin I High Sens B-Natriuretic Peptide Total Protein Albumin 3.0 L PTH Intact Calcium (PTH Intact) Gastric Occult Blood Stool Occult Blood Random Vancomycin C. difficile Tox B Gene COVID-19 (JAS) COVID-19 [facility] [employer] [facility] Blood Type Antibody Screen Crossmatch 05/27/22 05/27/22 05/27/22 05:40 05:44 06:07 WBC RBC Hgb Hct MCV MCH MCHC RDW Plt Count MPV Immature Gran % (Auto) Neut % (Auto) Lymph % (Auto) [place] % (Auto) Eos % (Auto) Baso % (Auto) Lymph # (Auto) [place] # (Auto) Eos # (Auto) Baso # (Auto) Abs Immat Gran (auto) Absolute Neuts (auto) Absolute Nucleated RBC Nucleated RBC % (auto) PT 14.3 H INR 1.2 H O2 Saturation TNP ABG pH at Pt Temp TNP ABG pCO2 at Pt Temp TNP ABG pO2 at Pt Temp TNP ABG HCO3 TNP ABG Base Excess (Actual) TNP VBG pH 7.50 H VBG pCO2 44 VBG pO2 53 VBG HCO3 35 H VBG O2 Saturation 83.0 VBG Base Excess 11.1 Sodium Potassium Chloride Carbon Dioxide Anion Gap BUN Creatinine Estim Creat Clear Calc Estimated GFR POC Glucose 155 H Random Glucose Fasting Glucose Lactic Acid Calcium Phosphorus Magnesium Iron TIBC % Saturation Unsat Iron Binding Ferritin Total Bilirubin AST ALT Alkaline Phosphatase Ammonia Lactate Dehydrogenase Troponin I High Sens B-Natriuretic Peptide Total Protein Albumin PTH Intact Calcium (PTH Intact) Gastric Occult Blood Stool Occult Blood Random Vancomycin C. difficile Tox B Gene COVID-19 (JAS) COVID-19 Clin Com Blood Type Antibody Screen Crossmatch 05/27/22 05/27/22 05/27/22 12:12 16:31 21:10 WBC RBC Hgb Hct MCV MCH MCHC RDW Plt Count MPV Immature Gran % (Auto) Neut % (Auto) Lymph % (Auto) [place] % (Auto) Eos % (Auto) Baso % (Auto) Lymph # (Auto) [place] # (Auto) Eos # (Auto) Baso # (Auto) Abs Immat Gran (auto) Absolute Neuts (auto) Absolute Nucleated RBC Nucleated RBC % (auto) PT INR O2 Saturation ABG pH at Pt Temp ABG pCO2 at Pt Temp ABG pO2 at Pt Temp ABG HCO3 ABG Base Excess (Actual) VBG pH VBG pCO2 VBG pO2 VBG HCO3 VBG O2 Saturation VBG Base Excess Sodium Potassium Chloride Carbon Dioxide Anion Gap BUN Creatinine Estim Creat Clear Calc Estimated GFR POC Glucose 144 H 137 H 140 H Random Glucose Fasting Glucose Lactic Acid Calcium Phosphorus Magnesium Iron TIBC % Saturation Unsat Iron Binding Ferritin Total Bilirubin AST ALT Alkaline Phosphatase Ammonia Lactate Dehydrogenase Troponin I High Sens B-Natriuretic Peptide Total Protein Albumin PTH Intact Calcium (PTH Intact) Gastric Occult Blood Stool Occult Blood Random Vancomycin C. difficile Tox B Gene COVID-19 (JAS) COVID-19 [facility] [employer] [facility] Blood Type Antibody Screen Crossmatch 05/28/22 05/28/22 05/28/22 05:34 05:38 05:38 WBC RBC Hgb Hct MCV MCH MCHC RDW Plt Count MPV Immature Gran % (Auto) Neut % (Auto) Lymph % (Auto) [place] % (Auto) Eos % (Auto) Baso % (Auto) Lymph # (Auto) [place] # (Auto) Eos # (Auto) Baso # (Auto) Abs Immat Gran (auto) Absolute Neuts (auto) Absolute Nucleated RBC Nucleated RBC % (auto) PT INR O2 Saturation ABG pH at Pt Temp ABG pCO2 at Pt Temp ABG pO2 at Pt Temp ABG HCO3 ABG Base Excess (Actual) VBG pH 7.53 H VBG pCO2 46 VBG pO2 56 VBG HCO3 39 H VBG O2 Saturation 87.0 VBG Base Excess 15.4 Sodium 149 H Potassium 3.4 Chloride 104 Carbon Dioxide 33 H Anion Gap 15 BUN 60 H Creatinine 2.68 H Estim Creat Clear Calc 35.7 Estimated GFR 24 POC Glucose Random Glucose 150 H Fasting Glucose Lactic Acid Calcium 8.8 Phosphorus 4.4 Magnesium 2.0 Iron TIBC % Saturation Unsat Iron Binding Ferritin Total Bilirubin AST ALT Alkaline Phosphatase Ammonia Lactate Dehydrogenase Troponin I High Sens B-Natriuretic Peptide 2539 H Total Protein Albumin PTH Intact Calcium (PTH Intact) Gastric Occult Blood Stool Occult Blood Random Vancomycin C. difficile Tox B Gene COVID-19 (JAS) COVID-19 [facility] Blood Type Antibody Screen Crossmatch 05/28/22 05/28/22 05/28/22 08:10 11:30 15:57 WBC RBC Hgb Hct MCV MCH MCHC RDW Plt Count MPV Immature Gran % (Auto) Neut % (Auto) Lymph % (Auto) [place] % (Auto) Eos % (Auto) Baso % (Auto) Lymph # (Auto) [place] # (Auto) Eos # (Auto) Baso # (Auto) Abs Immat Gran (auto) Absolute Neuts (auto) Absolute Nucleated RBC Nucleated RBC % (auto) PT INR O2 Saturation ABG pH at Pt Temp ABG pCO2 at Pt Temp ABG pO2 at Pt Temp ABG HCO3 ABG Base Excess (Actual) VBG pH VBG pCO2 VBG pO2 VBG HCO3 VBG O2 Saturation VBG Base Excess Sodium Potassium Chloride Carbon Dioxide Anion Gap BUN Creatinine Estim Creat Clear Calc Estimated GFR POC Glucose 133 H 138 H 176 H Random Glucose Fasting Glucose Lactic Acid Calcium Phosphorus Magnesium Iron TIBC % Saturation Unsat Iron Binding Ferritin Total Bilirubin AST ALT Alkaline Phosphatase Ammonia Lactate Dehydrogenase Troponin I High Sens B-Natriuretic Peptide Total Protein Albumin PTH Intact Calcium (PTH Intact) Gastric Occult Blood Stool Occult Blood Random Vancomycin C. difficile Tox B Gene COVID-19 (JAS) COVID-19 [facility] Blood Type Antibody Screen Crossmatch 05/28/22 05/29/22 05/29/22 20:24 06:35 06:36 WBC 6.7 RBC 2.82 L Hgb 8.7 L Hct 26.6 L MCV 94.3 MCH 30.9 MCHC 32.7 RDW 17.1 H Plt Count 101 L D MPV 11.2 Immature Gran % (Auto) Neut % (Auto) Lymph % (Auto) [place] % (Auto) Eos % (Auto) Baso % (Auto) Lymph # (Auto) [place] # (Auto) Eos # (Auto) Baso # (Auto) Abs Immat Gran (auto) Absolute Neuts (auto) Absolute Nucleated RBC 0.000 Nucleated RBC % (auto) 0.0 PT INR O2 Saturation ABG pH at Pt Temp ABG pCO2 at Pt Temp ABG pO2 at Pt Temp ABG HCO3 ABG Base Excess (Actual) VBG pH VBG pCO2 VBG pO2 VBG HCO3 VBG O2 Saturation VBG Base Excess Sodium Potassium Chloride Carbon Dioxide Anion Gap BUN Creatinine Estim Creat Clear Calc Estimated GFR POC Glucose 178 H Random Glucose Fasting Glucose Lactic Acid Calcium Phosphorus Magnesium Iron TIBC % Saturation Unsat Iron Binding Ferritin Total Bilirubin AST ALT Alkaline Phosphatase Ammonia 59 H Lactate Dehydrogenase Troponin I High Sens B-Natriuretic Peptide Total Protein Albumin PTH Intact Calcium (PTH Intact) Gastric Occult Blood Stool Occult Blood Random Vancomycin C. difficile Tox B Gene COVID-19 (JAS) COVIDPropagenix19 [facility] Blood Type Antibody Screen Crossmatch 05/29/22 05/29/22 05/29/22 06:36 06:43 07:49 WBC RBC Hgb Hct MCV MCH MCHC RDW Plt Count MPV Immature Gran % (Auto) Neut % (Auto) Lymph % (Auto) [place] % (Auto) Eos % (Auto) Baso % (Auto) Lymph # (Auto) [place] # (Auto) Eos # (Auto) Baso # (Auto) Abs Immat Gran (auto) Absolute Neuts (auto) Absolute Nucleated RBC Nucleated RBC % (auto) PT INR O2 Saturation ABG pH at Pt Temp ABG pCO2 at Pt Temp ABG pO2 at Pt Temp ABG HCO3 ABG Base Excess (Actual) VBG pH 7.54 H VBG pCO2 28 VBG pO2 154 VBG HCO3 24 VBG O2 Saturation 100.0 VBG Base Excess 2.5 Sodium 150 H Potassium 3.7 Chloride 105 Carbon Dioxide 34 H Anion Gap 15 BUN 64 H Creatinine 2.71 H Estim Creat Clear Calc 33.5 Estimated GFR 24 POC Glucose 222 H Random Glucose 273 H D Fasting Glucose Lactic Acid Calcium 9.2 Phosphorus 3.9 Magnesium 2.1 Iron TIBC % Saturation Unsat Iron Binding Ferritin Total Bilirubin 1.5 H AST 30 ALT 9 Alkaline Phosphatase 56 Ammonia Lactate Dehydrogenase Troponin I High Sens B-Natriuretic Peptide Total Protein 5.9 L Albumin 3.0 L PTH Intact Calcium (PTH Intact) Gastric Occult Blood Stool Occult Blood Random Vancomycin C. difficile Tox B Gene COVID-19 (JAS) COVID-19 [facility] Com Blood Type Antibody Screen Crossmatch 05/29/22 05/29/22 05/29/22 11:27 16:02 20:06 WBC RBC Hgb Hct MCV MCH MCHC RDW Plt Count MPV Immature Gran % (Auto) Neut % (Auto) Lymph % (Auto) [place] % (Auto) Eos % (Auto) Baso % (Auto) Lymph # (Auto) [place] # (Auto) Eos # (Auto) Baso # (Auto) Abs Immat Gran (auto) Absolute Neuts (auto) Absolute Nucleated RBC Nucleated RBC % (auto) PT INR O2 Saturation ABG pH at Pt Temp ABG pCO2 at Pt Temp ABG pO2 at Pt Temp ABG HCO3 ABG Base Excess (Actual) VBG pH VBG pCO2 VBG pO2 VBG HCO3 VBG O2 Saturation VBG Base Excess Sodium Potassium Chloride Carbon Dioxide Anion Gap BUN Creatinine Estim Creat Clear Calc Estimated GFR POC Glucose 184 H 210 H 227 H Random Glucose Fasting Glucose Lactic Acid Calcium Phosphorus Magnesium Iron TIBC % Saturation Unsat Iron Binding Ferritin Total Bilirubin AST ALT Alkaline Phosphatase Ammonia Lactate Dehydrogenase Troponin I High Sens B-Natriuretic Peptide Total Protein Albumin PTH Intact Calcium (PTH Intact) Gastric Occult Blood Stool Occult Blood Random Vancomycin C. difficile Tox B Gene COVID-19 (JAS) COVIDPropagenix19 [facility] Blood Type Antibody Screen Crossmatch 05/29/22 05/30/22 05/30/22 22:39 07:29 10:37 WBC RBC Hgb Hct MCV MCH MCHC RDW Plt Count MPV Immature Gran % (Auto) Neut % (Auto) Lymph % (Auto) [place] % (Auto) Eos % (Auto) Baso % (Auto) Lymph # (Auto) [place] # (Auto) Eos # (Auto) Baso # (Auto) Abs Immat Gran (auto) Absolute Neuts (auto) Absolute Nucleated RBC Nucleated RBC % (auto) PT INR O2 Saturation ABG pH at Pt Temp ABG pCO2 at Pt Temp ABG pO2 at Pt Temp ABG HCO3 ABG Base Excess (Actual) VBG pH VBG pCO2 VBG pO2 VBG HCO3 VBG O2 Saturation VBG Base Excess Sodium 153 H Potassium 3.2 L Chloride 107 Carbon Dioxide 35 H Anion Gap 14 BUN 66 H Creatinine 2.64 H Estim Creat Clear Calc 34.4 Estimated GFR 25 POC Glucose 247 H 173 H Random Glucose 204 H Fasting Glucose Lactic Acid Calcium 9.2 Phosphorus Magnesium Iron TIBC % Saturation Unsat Iron Binding Ferritin Total Bilirubin AST ALT Alkaline Phosphatase Ammonia Lactate Dehydrogenase Troponin I High Sens B-Natriuretic Peptide Total Protein Albumin PTH Intact Calcium (PTH Intact) Gastric Occult Blood Stool Occult Blood Random Vancomycin C. difficile Tox B Gene COVID-19 (JAS) COVID-19 [facility] Blood Type Antibody Screen Crossmatch 05/30/22 05/30/22 05/30/22 10:37 11:26 16:13 WBC RBC Hgb Hct MCV MCH MCHC RDW Plt Count MPV Immature Gran % (Auto) Neut % (Auto) Lymph % (Auto) [place] % (Auto) Eos % (Auto) Baso % (Auto) Lymph # (Auto) [place] # (Auto) Eos # (Auto) Baso # (Auto) Abs Immat Gran (auto) Absolute Neuts (auto) Absolute Nucleated RBC Nucleated RBC % (auto) PT INR O2 Saturation ABG pH at Pt Temp ABG pCO2 at Pt Temp ABG pO2 at Pt Temp ABG HCO3 ABG Base Excess (Actual) VBG pH VBG pCO2 VBG pO2 VBG HCO3 VBG O2 Saturation VBG Base Excess Sodium Potassium Chloride Carbon Dioxide Anion Gap BUN Creatinine Estim Creat Clear Calc Estimated GFR POC Glucose 166 H 164 H Random Glucose Fasting Glucose Lactic Acid Calcium Phosphorus Magnesium Iron TIBC % Saturation Unsat Iron Binding Ferritin Total Bilirubin AST ALT Alkaline Phosphatase Ammonia 41 Lactate Dehydrogenase Troponin I High Sens B-Natriuretic Peptide Total Protein Albumin PTH Intact Calcium (PTH Intact) Gastric Occult Blood Stool Occult Blood Random Vancomycin C. difficile Tox B Gene COVID-19 (JAS) COVID-19 [facility] Blood Type Antibody Screen Crossmatch 05/30/22 05/31/22 05/31/22 20:40 07:41 10:38 WBC RBC Hgb Hct MCV MCH MCHC RDW Plt Count MPV Immature Gran % (Auto) Neut % (Auto) Lymph % (Auto) [place] % (Auto) Eos % (Auto) Baso % (Auto) Lymph # (Auto) [place] # (Auto) Eos # (Auto) Baso # (Auto) Abs Immat Gran (auto) Absolute Neuts (auto) Absolute Nucleated RBC Nucleated RBC % (auto) PT INR O2 Saturation ABG pH at Pt Temp ABG pCO2 at Pt Temp ABG pO2 at Pt Temp ABG HCO3 ABG Base Excess (Actual) VBG pH VBG pCO2 VBG pO2 VBG HCO3 VBG O2 Saturation VBG Base Excess Sodium 149 H Potassium 3.2 L Chloride 107 Carbon Dioxide 34 H Anion Gap 11 L BUN 69 H Creatinine 2.63 H Estim Creat Clear Calc 29.6 Estimated GFR 25 POC Glucose 167 H 242 H Random Glucose 274 H Fasting Glucose Lactic Acid Calcium 8.4 D Phosphorus Magnesium Iron TIBC % Saturation Unsat Iron Binding Ferritin Total Bilirubin AST ALT Alkaline Phosphatase Ammonia Lactate Dehydrogenase Troponin I High Sens B-Natriuretic Peptide Total Protein Albumin PTH Intact Calcium (PTH Intact) Gastric Occult Blood Stool Occult Blood Random Vancomycin C. difficile Tox B Gene COVID-19 (JAS) COVID-19 [facility] Com Blood Type Antibody Screen Crossmatch 05/31/22 05/31/22 05/31/22 10:38 11:14 16:37 WBC 15.6 H RBC 2.94 L Hgb 9.0 L Hct 27.7 L MCV 94.2 MCH 30.6 MCHC 32.5 RDW 16.8 H Plt Count 120 L MPV 11.0 Immature Gran % (Auto) Neut % (Auto) Lymph % (Auto) [place] % (Auto) Eos % (Auto) Baso % (Auto) Lymph # (Auto) [place] # (Auto) Eos # (Auto) Baso # (Auto) Abs Immat Gran (auto) Absolute Neuts (auto) Absolute Nucleated RBC 0.000 Nucleated RBC % (auto) 0.0 PT INR O2 Saturation ABG pH at Pt Temp ABG pCO2 at Pt Temp ABG pO2 at Pt Temp ABG HCO3 ABG Base Excess (Actual) VBG pH VBG pCO2 VBG pO2 VBG HCO3 VBG O2 Saturation VBG Base Excess Sodium Potassium Chloride Carbon Dioxide Anion Gap BUN Creatinine Estim Creat Clear Calc Estimated GFR POC Glucose 246 H 308 H Random Glucose Fasting Glucose Lactic Acid Calcium Phosphorus Magnesium Iron TIBC % Saturation Unsat Iron Binding Ferritin Total Bilirubin AST ALT Alkaline Phosphatase Ammonia Lactate Dehydrogenase Troponin I High Sens B-Natriuretic Peptide Total Protein Albumin PTH Intact Calcium (PTH Intact) Gastric Occult Blood Stool Occult Blood Random Vancomycin C. difficile Tox B Gene COVID-19 (JAS) COVID-19 Clin Com Blood Type Antibody Screen Crossmatch 05/31/22 05/31/22 06/01/22 17:57 20:03 06:10 WBC RBC Hgb Hct MCV MCH MCHC RDW Plt Count MPV Immature Gran % (Auto) Neut % (Auto) Lymph % (Auto) [place] % (Auto) Eos % (Auto) Baso % (Auto) Lymph # (Auto) [place] # (Auto) Eos # (Auto) Baso # (Auto) Abs Immat Gran (auto) Absolute Neuts (auto) Absolute Nucleated RBC Nucleated RBC % (auto) PT INR O2 Saturation ABG pH at Pt Temp ABG pCO2 at Pt Temp ABG pO2 at Pt Temp ABG HCO3 ABG Base Excess (Actual) VBG pH VBG pCO2 VBG pO2 VBG HCO3 VBG O2 Saturation VBG Base Excess Sodium 147 H 145 Potassium 2.8 L 2.9 L Chloride 106 105 Carbon Dioxide 33 H 33 H Anion Gap 11 L 10 L BUN 72 H Creatinine 2.72 H Estim Creat Clear Calc 31.2 Estimated GFR 24 POC Glucose 231 H Random Glucose 392 H* Fasting Glucose Lactic Acid Calcium 8.2 L Phosphorus Magnesium 2.0 Iron TIBC % Saturation Unsat Iron Binding Ferritin Total Bilirubin AST ALT Alkaline Phosphatase Ammonia Lactate Dehydrogenase Troponin I High Sens B-Natriuretic Peptide Total Protein Albumin PTH Intact Calcium (PTH Intact) Gastric Occult Blood Stool Occult Blood Random Vancomycin C. difficile Tox B Gene COVID-19 (JAS) COVID-19 [facility] Blood Type Antibody Screen Crossmatch 06/01/22 06/01/22 06/01/22 07:23 11:06 11:22 WBC RBC Hgb Hct MCV MCH MCHC RDW Plt Count MPV Immature Gran % (Auto) Neut % (Auto) Lymph % (Auto) [place] % (Auto) Eos % (Auto) Baso % (Auto) Lymph # (Auto) [place] # (Auto) Eos # (Auto) Baso # (Auto) Abs Immat Gran (auto) Absolute Neuts (auto) Absolute Nucleated RBC Nucleated RBC % (auto) PT INR O2 Saturation ABG pH at Pt Temp ABG pCO2 at Pt Temp ABG pO2 at Pt Temp ABG HCO3 ABG Base Excess (Actual) VBG pH VBG pCO2 VBG pO2 VBG HCO3 VBG O2 Saturation VBG Base Excess Sodium Potassium Chloride Carbon Dioxide Anion Gap BUN Creatinine Estim Creat Clear Calc Estimated GFR POC Glucose 362 H* 361 H* Random Glucose Fasting Glucose Lactic Acid Calcium Phosphorus Magnesium Iron TIBC % Saturation Unsat Iron Binding Ferritin Total Bilirubin AST ALT Alkaline Phosphatase Ammonia 40 Lactate Dehydrogenase Troponin I High Sens B-Natriuretic Peptide Total Protein Albumin PTH Intact Calcium (PTH Intact) Gastric Occult Blood Stool Occult Blood Random Vancomycin C. difficile Tox B Gene COVID-19 (JAS) COVID-19 [facility] Blood Type Antibody Screen Crossmatch 06/01/22 06/01/22 06/01/22 11:22 11:27 15:57 WBC RBC Hgb Hct MCV MCH MCHC RDW Plt Count MPV Immature Gran % (Auto) Neut % (Auto) Lymph % (Auto) [place] % (Auto) Eos % (Auto) Baso % (Auto) Lymph # (Auto) [place] # (Auto) Eos # (Auto) Baso # (Auto) Abs Immat Gran (auto) Absolute Neuts (auto) Absolute Nucleated RBC Nucleated RBC % (auto) PT INR O2 Saturation ABG pH at Pt Temp ABG pCO2 at Pt Temp ABG pO2 at Pt Temp ABG HCO3 ABG Base Excess (Actual) VBG pH 7.51 H 7.51 H VBG pCO2 39 39 VBG pO2 51 51 VBG HCO3 32 H 32 H VBG O2 Saturation 82.0 82.0 VBG Base Excess 8.9 8.9 Sodium Potassium Chloride Carbon Dioxide Anion Gap BUN Creatinine Estim Creat Clear Calc Estimated GFR POC Glucose 337 H Random Glucose Fasting Glucose Lactic Acid Calcium Phosphorus Magnesium Iron TIBC % Saturation Unsat Iron Binding Ferritin Total Bilirubin AST ALT Alkaline Phosphatase Ammonia Lactate Dehydrogenase Troponin I High Sens B-Natriuretic Peptide Total Protein Albumin PTH Intact Calcium (PTH Intact) Gastric Occult Blood Stool Occult Blood Random Vancomycin C. difficile Tox B Gene COVID-19 (JAS) [employer] [employer] Blood Type Antibody Screen Crossmatch 06/01/22 06/02/22 06/02/22 19:38 05:21 05:21 WBC 8.1 RBC 2.76 L Hgb 8.6 L Hct 25.7 L MCV 93.1 MCH 31.2 MCHC 33.5 RDW 17.0 H Plt Count 90 L MPV 11.8 Immature Gran % (Auto) Neut % (Auto) Lymph % (Auto) [place] % (Auto) Eos % (Auto) Baso % (Auto) Lymph # (Auto) [place] # (Auto) Eos # (Auto) Baso # (Auto) Abs Immat Gran (auto) Absolute Neuts (auto) Absolute Nucleated RBC 0.000 Nucleated RBC % (auto) 0.0 PT INR O2 Saturation ABG pH at Pt Temp ABG pCO2 at Pt Temp ABG pO2 at Pt Temp ABG HCO3 ABG Base Excess (Actual) VBG pH VBG pCO2 VBG pO2 VBG HCO3 VBG O2 Saturation VBG Base Excess Sodium 145 Potassium 3.1 L Chloride 107 Carbon Dioxide 31 H Anion Gap 10 L BUN 70 H Creatinine 2.72 H Estim Creat Clear Calc 31.2 Estimated GFR 24 POC Glucose 399 H* Random Glucose 473 H* Fasting Glucose Lactic Acid Calcium 7.9 L Phosphorus Magnesium Iron TIBC % Saturation Unsat Iron Binding Ferritin Total Bilirubin AST ALT Alkaline Phosphatase Ammonia Lactate Dehydrogenase Troponin I High Sens B-Natriuretic Peptide Total Protein Albumin PTH Intact Calcium (PTH Intact) Gastric Occult Blood Stool Occult Blood Random Vancomycin C. difficile Tox B Gene COVID-19 (JAS) [employer] [employer] Blood Type Antibody Screen Crossmatch 06/02/22 06/02/22 06/02/22 07:39 10:59 15:47 WBC RBC Hgb Hct MCV MCH MCHC RDW Plt Count MPV Immature Gran % (Auto) Neut % (Auto) Lymph % (Auto) [place] % (Auto) Eos % (Auto) Baso % (Auto) Lymph # (Auto) [place] # (Auto) Eos # (Auto) Baso # (Auto) Abs Immat Gran (auto) Absolute Neuts (auto) Absolute Nucleated RBC Nucleated RBC % (auto) PT INR O2 Saturation ABG pH at Pt Temp ABG pCO2 at Pt Temp ABG pO2 at Pt Temp ABG HCO3 ABG Base Excess (Actual) VBG pH VBG pCO2 VBG pO2 VBG HCO3 VBG O2 Saturation VBG Base Excess Sodium Potassium Chloride Carbon Dioxide Anion Gap BUN Creatinine Estim Creat Clear Calc Estimated GFR POC Glucose 391 H* 394 H* 325 H Random Glucose Fasting Glucose Lactic Acid Calcium Phosphorus Magnesium Iron TIBC % Saturation Unsat Iron Binding Ferritin Total Bilirubin AST ALT Alkaline Phosphatase Ammonia Lactate Dehydrogenase Troponin I High Sens B-Natriuretic Peptide Total Protein Albumin PTH Intact Calcium (PTH Intact) Gastric Occult Blood Stool Occult Blood Random Vancomycin C. difficile Tox B Gene COVID-19 (JAS) [employer] [employer] Blood Type Antibody Screen Crossmatch 06/02/22 06/03/22 06/03/22 20:32 06:11 07:11 WBC RBC Hgb Hct MCV MCH MCHC RDW Plt Count MPV Immature Gran % (Auto) Neut % (Auto) Lymph % (Auto) [place] % (Auto) Eos % (Auto) Baso % (Auto) Lymph # (Auto) [place] # (Auto) Eos # (Auto) Baso # (Auto) Abs Immat Gran (auto) Absolute Neuts (auto) Absolute Nucleated RBC Nucleated RBC % (auto) PT INR O2 Saturation ABG pH at Pt Temp ABG pCO2 at Pt Temp ABG pO2 at Pt Temp ABG HCO3 ABG Base Excess (Actual) VBG pH VBG pCO2 VBG pO2 VBG HCO3 VBG O2 Saturation VBG Base Excess Sodium 150 H Potassium 3.0 L Chloride 111 H Carbon Dioxide 29 Anion Gap 13 BUN 67 H Creatinine 2.55 H Estim Creat Clear Calc 34.7 Estimated GFR 26 POC Glucose 261 H 272 H Random Glucose 296 H D Fasting Glucose Lactic Acid Calcium 7.8 L Phosphorus Magnesium 2.3 Iron TIBC % Saturation Unsat Iron Binding Ferritin Total Bilirubin AST ALT Alkaline Phosphatase Ammonia Lactate Dehydrogenase Troponin I High Sens B-Natriuretic Peptide Total Protein Albumin PTH Intact Calcium (PTH Intact) Gastric Occult Blood Stool Occult Blood Random Vancomycin C. difficile Tox B Gene COVID-19 (JAS) [employer] [employer] Blood Type Antibody Screen Crossmatch 06/03/22 06/03/22 06/03/22 11:12 15:46 17:50 WBC RBC Hgb Hct MCV MCH MCHC RDW Plt Count MPV Immature Gran % (Auto) Neut % (Auto) Lymph % (Auto) [place] % (Auto) Eos % (Auto) Baso % (Auto) Lymph # (Auto) [place] # (Auto) Eos # (Auto) Baso # (Auto) Abs Immat Gran (auto) Absolute Neuts (auto) Absolute Nucleated RBC Nucleated RBC % (auto) PT INR O2 Saturation ABG pH at Pt Temp ABG pCO2 at Pt Temp ABG pO2 at Pt Temp ABG HCO3 ABG Base Excess (Actual) VBG pH VBG pCO2 VBG pO2 VBG HCO3 VBG O2 Saturation VBG Base Excess Sodium 148 H Potassium 2.6 L Chloride 110 H Carbon Dioxide 29 Anion Gap 12 BUN 66 H Creatinine 2.49 H Estim Creat Clear Calc 35.6 Estimated GFR 26 POC Glucose 283 H 287 H Random Glucose 393 H* Fasting Glucose Lactic Acid Calcium 7.8 L Phosphorus Magnesium Iron TIBC % Saturation Unsat Iron Binding Ferritin Total Bilirubin AST ALT Alkaline Phosphatase Ammonia Lactate Dehydrogenase Troponin I High Sens B-Natriuretic Peptide Total Protein Albumin PTH Intact Calcium (PTH Intact) Gastric Occult Blood Stool Occult Blood Random Vancomycin C. difficile Tox B Gene COVID-19 (JAS) COVID-19 [facility] Blood Type Antibody Screen Crossmatch 06/03/22 06/03/22 06/04/22 20:20 22:37 07:30 WBC RBC Hgb Hct MCV MCH MCHC RDW Plt Count MPV Immature Gran % (Auto) Neut % (Auto) Lymph % (Auto) [place] % (Auto) Eos % (Auto) Baso % (Auto) Lymph # (Auto) [place] # (Auto) Eos # (Auto) Baso # (Auto) Abs Immat Gran (auto) Absolute Neuts (auto) Absolute Nucleated RBC Nucleated RBC % (auto) PT INR O2 Saturation ABG pH at Pt Temp ABG pCO2 at Pt Temp ABG pO2 at Pt Temp ABG HCO3 ABG Base Excess (Actual) VBG pH VBG pCO2 VBG pO2 VBG HCO3 VBG O2 Saturation VBG Base Excess Sodium Potassium Chloride Carbon Dioxide Anion Gap BUN Creatinine Estim Creat Clear Calc Estimated GFR POC Glucose 337 H 370 H* 448 H* Random Glucose Fasting Glucose Lactic Acid Calcium Phosphorus Magnesium Iron TIBC % Saturation Unsat Iron Binding Ferritin Total Bilirubin AST ALT Alkaline Phosphatase Ammonia Lactate Dehydrogenase Troponin I High Sens B-Natriuretic Peptide Total Protein Albumin PTH Intact Calcium (PTH Intact) Gastric Occult Blood Stool Occult Blood Random Vancomycin C. difficile Tox B Gene COVID-19 (JAS) COVID-19 [facility] Blood Type Antibody Screen Crossmatch 06/04/22 06/04/22 06/04/22 08:01 08:01 11:14 WBC 4.9 RBC 2.58 L Hgb 8.0 L Hct 23.9 L MCV 92.6 MCH 31.0 MCHC 33.5 RDW 16.9 H Plt Count 96 L MPV 12.2 Immature Gran % (Auto) Neut % (Auto) Lymph % (Auto) [place] % (Auto) Eos % (Auto) Baso % (Auto) Lymph # (Auto) [place] # (Auto) Eos # (Auto) Baso # (Auto) Abs Immat Gran (auto) Absolute Neuts (auto) Absolute Nucleated RBC 0.000 Nucleated RBC % (auto) 0.0 PT INR O2 Saturation ABG pH at Pt Temp ABG pCO2 at Pt Temp ABG pO2 at Pt Temp ABG HCO3 ABG Base Excess (Actual) VBG pH VBG pCO2 VBG pO2 VBG HCO3 VBG O2 Saturation VBG Base Excess Sodium 146 H Potassium 3.1 L Chloride 110 H Carbon Dioxide 27 Anion Gap 12 BUN 59 H Creatinine 2.43 H Estim Creat Clear Calc 34.9 Estimated GFR 27 POC Glucose 423 H* Random Glucose 559 H* Fasting Glucose Lactic Acid Calcium 7.5 L Phosphorus Magnesium 2.5 Iron TIBC % Saturation Unsat Iron Binding Ferritin Total Bilirubin AST ALT Alkaline Phosphatase Ammonia Lactate Dehydrogenase Troponin I High Sens B-Natriuretic Peptide Total Protein Albumin PTH Intact Calcium (PTH Intact) Gastric Occult Blood Stool Occult Blood Random Vancomycin C. difficile Tox B Gene COVID-19 (JAS) COVID-19 [facility] Blood Type Antibody Screen Crossmatch 06/04/22 06/04/22 06/04/22 15:45 17:34 20:10 WBC RBC Hgb Hct MCV MCH MCHC RDW Plt Count MPV Immature Gran % (Auto) Neut % (Auto) Lymph % (Auto) [place] % (Auto) Eos % (Auto) Baso % (Auto) Lymph # (Auto) [place] # (Auto) Eos # (Auto) Baso # (Auto) Abs Immat Gran (auto) Absolute Neuts (auto) Absolute Nucleated RBC Nucleated RBC % (auto) PT INR O2 Saturation ABG pH at Pt Temp ABG pCO2 at Pt Temp ABG pO2 at Pt Temp ABG HCO3 ABG Base Excess (Actual) VBG pH VBG pCO2 VBG pO2 VBG HCO3 VBG O2 Saturation VBG Base Excess Sodium 148 H Potassium 3.4 Chloride 112 H Carbon Dioxide 28 Anion Gap 11 L BUN 61 H Creatinine 2.52 H Estim Creat Clear Calc 33.7 Estimated GFR 26 POC Glucose 427 H* 353 H* Random Glucose 511 H* Fasting Glucose Lactic Acid Calcium 7.5 L Phosphorus Magnesium Iron TIBC % Saturation Unsat Iron Binding Ferritin Total Bilirubin AST ALT Alkaline Phosphatase Ammonia Lactate Dehydrogenase Troponin I High Sens B-Natriuretic Peptide Total Protein Albumin PTH Intact Calcium (PTH Intact) Gastric Occult Blood Stool Occult Blood Random Vancomycin C. difficile Tox B Gene COVID-19 (JAS) COVID-19 [facility] Blood Type Antibody Screen Crossmatch 06/05/22 06/05/22 06/05/22 07:21 07:28 11:29 WBC RBC Hgb Hct MCV MCH MCHC RDW Plt Count MPV Immature Gran % (Auto) Neut % (Auto) Lymph % (Auto) [place] % (Auto) Eos % (Auto) Baso % (Auto) Lymph # (Auto) [place] # (Auto) Eos # (Auto) Baso # (Auto) Abs Immat Gran (auto) Absolute Neuts (auto) Absolute Nucleated RBC Nucleated RBC % (auto) PT INR O2 Saturation ABG pH at Pt Temp ABG pCO2 at Pt Temp ABG pO2 at Pt Temp ABG HCO3 ABG Base Excess (Actual) VBG pH VBG pCO2 VBG pO2 VBG HCO3 VBG O2 Saturation VBG Base Excess Sodium 145 Potassium 3.7 Chloride 111 H Carbon Dioxide 25 Anion Gap 13 BUN 56 H Creatinine 2.35 H Estim Creat Clear Calc 36.6 Estimated GFR 28 POC Glucose 314 H 347 H Random Glucose 415 H* Fasting Glucose Lactic Acid Calcium 7.4 L Phosphorus Magnesium Iron TIBC % Saturation Unsat Iron Binding Ferritin Total Bilirubin AST ALT Alkaline Phosphatase Ammonia Lactate Dehydrogenase Troponin I High Sens B-Natriuretic Peptide Total Protein Albumin PTH Intact Calcium (PTH Intact) Gastric Occult Blood Stool Occult Blood Random Vancomycin C. difficile Tox B Gene COVID-19 (JAS) COVID-19 [facility] Blood Type Antibody Screen Crossmatch 06/05/22 06/05/22 06/06/22 15:28 19:21 04:41 WBC RBC Hgb Hct MCV MCH MCHC RDW Plt Count MPV Immature Gran % (Auto) Neut % (Auto) Lymph % (Auto) [place] % (Auto) Eos % (Auto) Baso % (Auto) Lymph # (Auto) [place] # (Auto) Eos # (Auto) Baso # (Auto) Abs Immat Gran (auto) Absolute Neuts (auto) Absolute Nucleated RBC Nucleated RBC % (auto) PT INR O2 Saturation ABG pH at Pt Temp ABG pCO2 at Pt Temp ABG pO2 at Pt Temp ABG HCO3 ABG Base Excess (Actual) VBG pH VBG pCO2 VBG pO2 VBG HCO3 VBG O2 Saturation VBG Base Excess Sodium 143 Potassium 4.3 Chloride 111 H Carbon Dioxide 26 Anion Gap 10 L BUN 56 H Creatinine 2.35 H Estim Creat Clear Calc 36.6 Estimated GFR 28 POC Glucose 378 H* 381 H* Random Glucose 431 H* Fasting Glucose Lactic Acid Calcium 6.9 L D Phosphorus Magnesium Iron TIBC % Saturation Unsat Iron Binding Ferritin Total Bilirubin AST ALT Alkaline Phosphatase Ammonia Lactate Dehydrogenase Troponin I High Sens B-Natriuretic Peptide Total Protein Albumin PTH Intact Calcium (PTH Intact) Gastric Occult Blood Stool Occult Blood Random Vancomycin C. difficile Tox B Gene COVID-19 (JAS) COVID-19 [facility] Blood Type Antibody Screen Crossmatch 06/06/22 06/06/22 06/06/22 07:10 10:48 15:57 WBC RBC Hgb Hct MCV MCH MCHC RDW Plt Count MPV Immature Gran % (Auto) Neut % (Auto) Lymph % (Auto) [place] % (Auto) Eos % (Auto) Baso % (Auto) Lymph # (Auto) [place] # (Auto) Eos # (Auto) Baso # (Auto) Abs Immat Gran (auto) Absolute Neuts (auto) Absolute Nucleated RBC Nucleated RBC % (auto) PT INR O2 Saturation ABG pH at Pt Temp ABG pCO2 at Pt Temp ABG pO2 at Pt Temp ABG HCO3 ABG Base Excess (Actual) VBG pH VBG pCO2 VBG pO2 VBG HCO3 VBG O2 Saturation VBG Base Excess Sodium Potassium Chloride Carbon Dioxide Anion Gap BUN Creatinine Estim Creat Clear Calc Estimated GFR POC Glucose 408 H* 341 H 221 H Random Glucose Fasting Glucose Lactic Acid Calcium Phosphorus Magnesium Iron TIBC % Saturation Unsat Iron Binding Ferritin Total Bilirubin AST ALT Alkaline Phosphatase Ammonia Lactate Dehydrogenase Troponin I High Sens B-Natriuretic Peptide Total Protein Albumin PTH Intact Calcium (PTH Intact) Gastric Occult Blood Stool Occult Blood Random Vancomycin C. difficile Tox B Gene COVID-19 (JAS) COVIDDiurnal [facility] Blood Type Antibody Screen Crossmatch 06/06/22 06/07/22 06/07/22 19:51 04:28 07:11 WBC RBC Hgb Hct MCV MCH MCHC RDW Plt Count MPV Immature Gran % (Auto) Neut % (Auto) Lymph % (Auto) [place] % (Auto) Eos % (Auto) Baso % (Auto) Lymph # (Auto) [place] # (Auto) Eos # (Auto) Baso # (Auto) Abs Immat Gran (auto) Absolute Neuts (auto) Absolute Nucleated RBC Nucleated RBC % (auto) PT INR O2 Saturation ABG pH at Pt Temp ABG pCO2 at Pt Temp ABG pO2 at Pt Temp ABG HCO3 ABG Base Excess (Actual) VBG pH VBG pCO2 VBG pO2 VBG HCO3 VBG O2 Saturation VBG Base Excess Sodium 146 H Potassium 4.4 Chloride 114 H Carbon Dioxide 24 Anion Gap 12 BUN 53 H Creatinine 2.39 H Estim Creat Clear Calc 36.1 Estimated GFR 28 POC Glucose 206 H 243 H Random Glucose 275 H D Fasting Glucose Lactic Acid Calcium 7.2 L Phosphorus Magnesium Iron 56 TIBC 165 L % Saturation 34 Unsat Iron Binding 109 Ferritin 453 H Total Bilirubin AST ALT Alkaline Phosphatase Ammonia Lactate Dehydrogenase Troponin I High Sens B-Natriuretic Peptide Total Protein Albumin PTH Intact Calcium (PTH Intact) Gastric Occult Blood Stool Occult Blood Random Vancomycin C. difficile Tox B Gene COVID-19 (JAS) COVID-19 [facility] Blood Type Antibody Screen Crossmatch 06/07/22 06/07/22 06/07/22 11:12 15:56 20:01 WBC RBC Hgb Hct MCV MCH MCHC RDW Plt Count MPV Immature Gran % (Auto) Neut % (Auto) Lymph % (Auto) [place] % (Auto) Eos % (Auto) Baso % (Auto) Lymph # (Auto) [place] # (Auto) Eos # (Auto) Baso # (Auto) Abs Immat Gran (auto) Absolute Neuts (auto) Absolute Nucleated RBC Nucleated RBC % (auto) PT INR O2 Saturation ABG pH at Pt Temp ABG pCO2 at Pt Temp ABG pO2 at Pt Temp ABG HCO3 ABG Base Excess (Actual) VBG pH VBG pCO2 VBG pO2 VBG HCO3 VBG O2 Saturation VBG Base Excess Sodium Potassium Chloride Carbon Dioxide Anion Gap BUN Creatinine Estim Creat Clear Calc Estimated GFR POC Glucose 250 H 172 H 144 H Random Glucose Fasting Glucose Lactic Acid Calcium Phosphorus Magnesium Iron TIBC % Saturation Unsat Iron Binding Ferritin Total Bilirubin AST ALT Alkaline Phosphatase Ammonia Lactate Dehydrogenase Troponin I High Sens B-Natriuretic Peptide Total Protein Albumin PTH Intact Calcium (PTH Intact) Gastric Occult Blood Stool Occult Blood Random Vancomycin C. difficile Tox B Gene COVID-19 (JAS) COVID-19 Clin Com Blood Type Antibody Screen Crossmatch 06/08/22 06/08/22 06/08/22 05:49 05:49 05:49 WBC 5.2 RBC 2.83 L Hgb 8.8 L Hct 27.0 L MCV 95.4 MCH 31.1 MCHC 32.6 RDW 17.7 H Plt Count 117 L MPV 11.7 Immature Gran % (Auto) 0.4 Neut % (Auto) 69.3 Lymph % (Auto) 15.5 L [place] % (Auto) 8.2 Eos % (Auto) 6.2 H Baso % (Auto) 0.4 Lymph # (Auto) 0.8 L [place] # (Auto) 0.4 Eos # (Auto) 0.3 Baso # (Auto) 0.0 Abs Immat Gran (auto) 0.02 Absolute Neuts (auto) 3.6 Absolute Nucleated RBC 0.000 Nucleated RBC % (auto) 0.0 PT 13.1 INR 1.1 O2 Saturation ABG pH at Pt Temp ABG pCO2 at Pt Temp ABG pO2 at Pt Temp ABG HCO3 ABG Base Excess (Actual) VBG pH VBG pCO2 VBG pO2 VBG HCO3 VBG O2 Saturation VBG Base Excess Sodium Potassium Chloride Carbon Dioxide Anion Gap BUN Creatinine Estim Creat Clear Calc Estimated GFR POC Glucose Random Glucose Fasting Glucose Lactic Acid Calcium Phosphorus Magnesium Iron TIBC % Saturation Unsat Iron Binding Ferritin Total Bilirubin AST ALT Alkaline Phosphatase Ammonia Lactate Dehydrogenase Troponin I High Sens B-Natriuretic Peptide Total Protein Albumin PTH Intact 144 H Calcium (PTH Intact) 7.7 L Gastric Occult Blood Stool Occult Blood Random Vancomycin C. difficile Tox B Gene COVID-19 (JAS) COVID-19 [facility] Blood Type Antibody Screen Crossmatch 06/08/22 06/08/22 06/08/22 05:49 07:33 11:07 WBC RBC Hgb Hct MCV MCH MCHC RDW Plt Count MPV Immature Gran % (Auto) Neut % (Auto) Lymph % (Auto) [place] % (Auto) Eos % (Auto) Baso % (Auto) Lymph # (Auto) [place] # (Auto) Eos # (Auto) Baso # (Auto) Abs Immat Gran (auto) Absolute Neuts (auto) Absolute Nucleated RBC Nucleated RBC % (auto) PT INR O2 Saturation ABG pH at Pt Temp ABG pCO2 at Pt Temp ABG pO2 at Pt Temp ABG HCO3 ABG Base Excess (Actual) VBG pH VBG pCO2 VBG pO2 VBG HCO3 VBG O2 Saturation VBG Base Excess Sodium 151 H Potassium 4.6 Chloride 121 H Carbon Dioxide 24 Anion Gap 11 L BUN 53 H Creatinine 2.43 H Estim Creat Clear Calc 35.0 Estimated GFR 27 POC Glucose 246 H 214 H Random Glucose 310 H Fasting Glucose Lactic Acid Calcium 7.5 L Phosphorus Magnesium Iron TIBC % Saturation Unsat Iron Binding Ferritin Total Bilirubin 1.4 H AST 49 H D ALT 14 Alkaline Phosphatase 85 D Ammonia Lactate Dehydrogenase Troponin I High Sens B-Natriuretic Peptide Total Protein 6.3 L Albumin 2.8 L PTH Intact Calcium (PTH Intact) Gastric Occult Blood Stool Occult Blood Random Vancomycin C. difficile Tox B Gene COVID-19 (JAS) COVID-19 [facility] Blood Type Antibody Screen Crossmatch 06/08/22 06/08/22 06/08/22 14:51 15:57 17:37 WBC RBC Hgb Hct MCV MCH MCHC RDW Plt Count MPV Immature Gran % (Auto) Neut % (Auto) Lymph % (Auto) [place] % (Auto) Eos % (Auto) Baso % (Auto) Lymph # (Auto) [place] # (Auto) Eos # (Auto) Baso # (Auto) Abs Immat Gran (auto) Absolute Neuts (auto) Absolute Nucleated RBC Nucleated RBC % (auto) PT INR O2 Saturation ABG pH at Pt Temp ABG pCO2 at Pt Temp ABG pO2 at Pt Temp ABG HCO3 ABG Base Excess (Actual) VBG pH VBG pCO2 VBG pO2 VBG HCO3 VBG O2 Saturation VBG Base Excess Sodium 153 H Potassium 4.4 Chloride 123 H Carbon Dioxide 25 Anion Gap 9 L BUN 51 H Creatinine 2.29 H Estim Creat Clear Calc 37.2 Estimated GFR 29 POC Glucose 208 H Random Glucose 246 H Fasting Glucose Lactic Acid Calcium 7.3 L Phosphorus Magnesium Iron TIBC % Saturation Unsat Iron Binding Ferritin Total Bilirubin AST ALT Alkaline Phosphatase Ammonia Lactate Dehydrogenase 464 H 445 H Troponin I High Sens B-Natriuretic Peptide Total Protein Albumin PTH Intact Calcium (PTH Intact) Gastric Occult Blood Stool Occult Blood Random Vancomycin C. difficile Tox B Gene COVID-19 (JAS) [place] [employer] Blood Type Antibody Screen Crossmatch 06/08/22 06/08/22 06/08/22 18:22 19:29 22:33 WBC RBC Hgb Hct MCV MCH MCHC RDW Plt Count MPV Immature Gran % (Auto) Neut % (Auto) Lymph % (Auto) [place] % (Auto) Eos % (Auto) Baso % (Auto) Lymph # (Auto) [place] # (Auto) Eos # (Auto) Baso # (Auto) Abs Immat Gran (auto) Absolute Neuts (auto) Absolute Nucleated RBC Nucleated RBC % (auto) PT INR O2 Saturation ABG pH at Pt Temp ABG pCO2 at Pt Temp ABG pO2 at Pt Temp ABG HCO3 ABG Base Excess (Actual) VBG pH VBG pCO2 VBG pO2 VBG HCO3 VBG O2 Saturation VBG Base Excess Sodium Potassium Chloride Carbon Dioxide Anion Gap BUN Creatinine Estim Creat Clear Calc Estimated GFR POC Glucose 207 H Random Glucose Fasting Glucose Lactic Acid 1.0 1.2 Calcium Phosphorus Magnesium Iron TIBC % Saturation Unsat Iron Binding Ferritin Total Bilirubin AST ALT Alkaline Phosphatase Ammonia Lactate Dehydrogenase Troponin I High Sens B-Natriuretic Peptide Total Protein Albumin PTH Intact Calcium (PTH Intact) Gastric Occult Blood Stool Occult Blood Random Vancomycin C. difficile Tox B Gene COVID-19 (JAS) [place] [employer] Blood Type Antibody Screen Crossmatch 06/09/22 06/09/22 06/09/22 07:08 07:58 07:58 WBC 5.4 RBC 2.70 L Hgb 8.3 L Hct 26.0 L MCV 96.3 MCH 30.7 MCHC 31.9 RDW 18.2 H Plt Count 110 L MPV 11.0 Immature Gran % (Auto) 0.6 H Neut % (Auto) 68.9 Lymph % (Auto) 16.7 L [place] % (Auto) 7.0 Eos % (Auto) 6.6 H Baso % (Auto) 0.2 Lymph # (Auto) 0.9 L [place] # (Auto) 0.4 Eos # (Auto) 0.4 Baso # (Auto) 0.0 Abs Immat Gran (auto) 0.03 Absolute Neuts (auto) 3.8 Absolute Nucleated RBC 0.000 Nucleated RBC % (auto) 0.0 PT INR O2 Saturation ABG pH at Pt Temp ABG pCO2 at Pt Temp ABG pO2 at Pt Temp ABG HCO3 ABG Base Excess (Actual) VBG pH VBG pCO2 VBG pO2 VBG HCO3 VBG O2 Saturation VBG Base Excess Sodium 152 H Potassium 4.7 Chloride 124 H Carbon Dioxide 21 L Anion Gap 12 BUN 50 H Creatinine 2.33 H Estim Creat Clear Calc 36.9 Estimated GFR 28 POC Glucose 241 H Random Glucose 314 H Fasting Glucose Lactic Acid Calcium 7.4 L Phosphorus Magnesium Iron TIBC % Saturation Unsat Iron Binding Ferritin Total Bilirubin 1.2 H AST 37 ALT 14 Alkaline Phosphatase 80 Ammonia Lactate Dehydrogenase Troponin I High Sens B-Natriuretic Peptide Total Protein 6.2 L Albumin 2.7 L PTH Intact Calcium (PTH Intact) Gastric Occult Blood Stool Occult Blood Random Vancomycin C. difficile Tox B Gene COVID-19 (JAS) COVID-19 Clin Com Blood Type Antibody Screen Crossmatch 06/09/22 06/09/22 06/09/22 11:17 14:48 15:52 WBC RBC Hgb Hct MCV MCH MCHC RDW Plt Count MPV Immature Gran % (Auto) Neut % (Auto) Lymph % (Auto) [place] % (Auto) Eos % (Auto) Baso % (Auto) Lymph # (Auto) [place] # (Auto) Eos # (Auto) Baso # (Auto) Abs Immat Gran (auto) Absolute Neuts (auto) Absolute Nucleated RBC Nucleated RBC % (auto) PT INR O2 Saturation ABG pH at Pt Temp ABG pCO2 at Pt Temp ABG pO2 at Pt Temp ABG HCO3 ABG Base Excess (Actual) VBG pH VBG pCO2 VBG pO2 VBG HCO3 VBG O2 Saturation VBG Base Excess Sodium Potassium Chloride Carbon Dioxide Anion Gap BUN Creatinine Estim Creat Clear Calc Estimated GFR POC Glucose 230 H 152 H Random Glucose Fasting Glucose Lactic Acid Calcium Phosphorus Magnesium Iron TIBC % Saturation Unsat Iron Binding Ferritin Total Bilirubin AST ALT Alkaline Phosphatase Ammonia Lactate Dehydrogenase Troponin I High Sens B-Natriuretic Peptide Total Protein Albumin PTH Intact Calcium (PTH Intact) Gastric Occult Blood Stool Occult Blood Random Vancomycin 13.6 L C. difficile Tox B Gene COVID-19 (JAS) COVID-19 [facility] [employer] Blood Type Antibody Screen Crossmatch 06/09/22 06/09/22 06/10/22 19:07 19:15 06:21 WBC 5.3 RBC 2.55 L Hgb 7.8 L Hct 24.6 L MCV 96.5 MCH 30.6 MCHC 31.7 RDW 18.0 H Plt Count 95 L MPV 11.7 Immature Gran % (Auto) 0.4 Neut % (Auto) 69.0 Lymph % (Auto) 15.1 L [place] % (Auto) 7.0 Eos % (Auto) 8.3 H Baso % (Auto) 0.2 Lymph # (Auto) 0.8 L [place] # (Auto) 0.4 Eos # (Auto) 0.4 Baso # (Auto) 0.0 Abs Immat Gran (auto) 0.02 Absolute Neuts (auto) 3.7 Absolute Nucleated RBC 0.000 Nucleated RBC % (auto) 0.0 PT INR O2 Saturation ABG pH at Pt Temp ABG pCO2 at Pt Temp ABG pO2 at Pt Temp ABG HCO3 ABG Base Excess (Actual) VBG pH VBG pCO2 VBG pO2 VBG HCO3 VBG O2 Saturation VBG Base Excess Sodium 152 H Potassium 4.3 Chloride 124 H Carbon Dioxide 21 L Anion Gap 11 L BUN Creatinine Estim Creat Clear Calc Estimated GFR POC Glucose 141 H Random Glucose Fasting Glucose Lactic Acid Calcium Phosphorus Magnesium Iron TIBC % Saturation Unsat Iron Binding Ferritin Total Bilirubin AST ALT Alkaline Phosphatase Ammonia Lactate Dehydrogenase Troponin I High Sens B-Natriuretic Peptide Total Protein Albumin PTH Intact Calcium (PTH Intact) Gastric Occult Blood Stool Occult Blood Random Vancomycin C. difficile Tox B Gene COVID-19 (JAS) COVID-19 [facility] Blood Type Antibody Screen Crossmatch 06/10/22 06/10/22 06/10/22 06:21 07:20 11:33 WBC RBC Hgb Hct MCV MCH MCHC RDW Plt Count MPV Immature Gran % (Auto) Neut % (Auto) Lymph % (Auto) [place] % (Auto) Eos % (Auto) Baso % (Auto) Lymph # (Auto) [place] # (Auto) Eos # (Auto) Baso # (Auto) Abs Immat Gran (auto) Absolute Neuts (auto) Absolute Nucleated RBC Nucleated RBC % (auto) PT INR O2 Saturation ABG pH at Pt Temp ABG pCO2 at Pt Temp ABG pO2 at Pt Temp ABG HCO3 ABG Base Excess (Actual) VBG pH VBG pCO2 VBG pO2 VBG HCO3 VBG O2 Saturation VBG Base Excess Sodium 152 H Potassium 4.7 Chloride 122 H Carbon Dioxide 21 L Anion Gap 14 BUN 47 H Creatinine 2.10 H Estim Creat Clear Calc 40.6 Estimated GFR 32 POC Glucose 244 H 222 H Random Glucose 275 H Fasting Glucose Lactic Acid Calcium 7.3 L Phosphorus Magnesium Iron TIBC % Saturation Unsat Iron Binding Ferritin Total Bilirubin 1.3 H AST 32 ALT 8 Alkaline Phosphatase 75 Ammonia Lactate Dehydrogenase Troponin I High Sens B-Natriuretic Peptide Total Protein 6.0 L Albumin 2.6 L PTH Intact Calcium (PTH Intact) Gastric Occult Blood Stool Occult Blood Random Vancomycin C. difficile Tox B Gene COVID-19 (JAS) COVID-19 Clin Com Blood Type Antibody Screen Crossmatch 06/10/22 06/10/22 06/10/22 14:53 15:31 19:18 WBC RBC Hgb Hct MCV MCH MCHC RDW Plt Count MPV Immature Gran % (Auto) Neut % (Auto) Lymph % (Auto) [place] % (Auto) Eos % (Auto) Baso % (Auto) Lymph # (Auto) [place] # (Auto) Eos # (Auto) Baso # (Auto) Abs Immat Gran (auto) Absolute Neuts (auto) Absolute Nucleated RBC Nucleated RBC % (auto) PT INR O2 Saturation ABG pH at Pt Temp ABG pCO2 at Pt Temp ABG pO2 at Pt Temp ABG HCO3 ABG Base Excess (Actual) VBG pH VBG pCO2 VBG pO2 VBG HCO3 VBG O2 Saturation VBG Base Excess Sodium Potassium Chloride Carbon Dioxide Anion Gap BUN Creatinine Estim Creat Clear Calc Estimated GFR POC Glucose 174 H 203 H Random Glucose Fasting Glucose Lactic Acid Calcium Phosphorus Magnesium Iron TIBC % Saturation Unsat Iron Binding Ferritin Total Bilirubin AST ALT Alkaline Phosphatase Ammonia Lactate Dehydrogenase Troponin I High Sens B-Natriuretic Peptide Total Protein Albumin PTH Intact Calcium (PTH Intact) Gastric Occult Blood Stool Occult Blood Random Vancomycin 17.0 C. difficile Tox B Gene COVID-19 (JAS) COVID-19 [facility] Blood Type Antibody Screen Crossmatch 06/11/22 06/11/22 06/11/22 06:11 06:11 07:17 WBC 8.1 RBC 2.88 L Hgb 9.0 L Hct 28.1 L MCV 97.6 MCH 31.3 MCHC 32.0 RDW 17.4 H Plt Count 108 L MPV 12.1 Immature Gran % (Auto) 0.4 Neut % (Auto) 77.1 H Lymph % (Auto) 10.9 L [place] % (Auto) 5.7 Eos % (Auto) 5.7 H Baso % (Auto) 0.2 Lymph # (Auto) 0.9 L [place] # (Auto) 0.5 Eos # (Auto) 0.5 H Baso # (Auto) 0.0 Abs Immat Gran (auto) 0.03 Absolute Neuts (auto) 6.2 Absolute Nucleated RBC 0.000 Nucleated RBC % (auto) 0.0 PT INR O2 Saturation ABG pH at Pt Temp ABG pCO2 at Pt Temp ABG pO2 at Pt Temp ABG HCO3 ABG Base Excess (Actual) VBG pH VBG pCO2 VBG pO2 VBG HCO3 VBG O2 Saturation VBG Base Excess Sodium 146 H Potassium 5.1 Chloride 117 H Carbon Dioxide 20 L Anion Gap 14 BUN 46 H Creatinine 2.00 H Estim Creat Clear Calc 42.6 Estimated GFR 34 POC Glucose 173 H Random Glucose 206 H Fasting Glucose Lactic Acid Calcium 7.6 L Phosphorus Magnesium Iron TIBC % Saturation Unsat Iron Binding Ferritin Total Bilirubin 1.5 H AST 34 ALT < 6 Alkaline Phosphatase 83 Ammonia Lactate Dehydrogenase Troponin I High Sens B-Natriuretic Peptide Total Protein 6.5 Albumin 2.8 L PTH Intact Calcium (PTH Intact) Gastric Occult Blood Stool Occult Blood Random Vancomycin C. difficile Tox B Gene COVID-19 (JAS) COVID-19 [facility] [employer] Blood Type Antibody Screen Crossmatch 06/11/22 06/11/22 06/11/22 11:43 15:14 16:48 WBC RBC Hgb Hct MCV MCH MCHC RDW Plt Count MPV Immature Gran % (Auto) Neut % (Auto) Lymph % (Auto) [place] % (Auto) Eos % (Auto) Baso % (Auto) Lymph # (Auto) [place] # (Auto) Eos # (Auto) Baso # (Auto) Abs Immat Gran (auto) Absolute Neuts (auto) Absolute Nucleated RBC Nucleated RBC % (auto) PT INR O2 Saturation ABG pH at Pt Temp ABG pCO2 at Pt Temp ABG pO2 at Pt Temp ABG HCO3 ABG Base Excess (Actual) VBG pH VBG pCO2 VBG pO2 VBG HCO3 VBG O2 Saturation VBG Base Excess Sodium Potassium Chloride Carbon Dioxide Anion Gap BUN Creatinine Estim Creat Clear Calc Estimated GFR POC Glucose 166 H 196 H Random Glucose Fasting Glucose Lactic Acid Calcium Phosphorus Magnesium Iron TIBC % Saturation Unsat Iron Binding Ferritin Total Bilirubin AST ALT Alkaline Phosphatase Ammonia Lactate Dehydrogenase Troponin I High Sens B-Natriuretic Peptide Total Protein Albumin PTH Intact Calcium (PTH Intact) Gastric Occult Blood Stool Occult Blood Random Vancomycin 18.2 C. difficile Tox B Gene COVID-19 (JAS) COVID-19 Clin Com Blood Type Antibody Screen Crossmatch 06/11/22 06/12/22 06/12/22 21:44 06:23 06:23 WBC 6.7 RBC 2.41 L Hgb 7.6 L Hct 23.1 L MCV 95.9 MCH 31.5 MCHC 32.9 RDW 17.3 H Plt Count 112 L MPV 11.6 Immature Gran % (Auto) 0.3 Neut % (Auto) 73.7 H Lymph % (Auto) 13.5 L [place] % (Auto) 5.8 Eos % (Auto) 6.4 H Baso % (Auto) 0.3 Lymph # (Auto) 0.9 L [place] # (Auto) 0.4 Eos # (Auto) 0.4 Baso # (Auto) 0.0 Abs Immat Gran (auto) 0.02 Absolute Neuts (auto) 4.9 Absolute Nucleated RBC 0.000 Nucleated RBC % (auto) 0.0 PT INR O2 Saturation ABG pH at Pt Temp ABG pCO2 at Pt Temp ABG pO2 at Pt Temp ABG HCO3 ABG Base Excess (Actual) VBG pH VBG pCO2 VBG pO2 VBG HCO3 VBG O2 Saturation VBG Base Excess Sodium 139 Potassium 4.5 Chloride 112 H Carbon Dioxide 19 L Anion Gap 13 BUN 46 H Creatinine 1.96 H Estim Creat Clear Calc 45.0 Estimated GFR 35 POC Glucose 193 H Random Glucose 195 H Fasting Glucose Lactic Acid Calcium 7.3 L Phosphorus Magnesium Iron TIBC % Saturation Unsat Iron Binding Ferritin Total Bilirubin 1.4 H AST 31 ALT < 6 Alkaline Phosphatase 81 Ammonia Lactate Dehydrogenase Troponin I High Sens B-Natriuretic Peptide Total Protein 6.1 L Albumin 2.6 L PTH Intact Calcium (PTH Intact) Gastric Occult Blood Stool Occult Blood Random Vancomycin C. difficile Tox B Gene COVID-19 (JAS) [facility] Blood Type Antibody Screen Crossmatch 06/12/22 06/12/22 06/12/22 07:12 11:00 16:00 WBC RBC Hgb Hct MCV MCH MCHC RDW Plt Count MPV Immature Gran % (Auto) Neut % (Auto) Lymph % (Auto) [place] % (Auto) Eos % (Auto) Baso % (Auto) Lymph # (Auto) [place] # (Auto) Eos # (Auto) Baso # (Auto) Abs Immat Gran (auto) Absolute Neuts (auto) Absolute Nucleated RBC Nucleated RBC % (auto) PT INR O2 Saturation ABG pH at Pt Temp ABG pCO2 at Pt Temp ABG pO2 at Pt Temp ABG HCO3 ABG Base Excess (Actual) VBG pH VBG pCO2 VBG pO2 VBG HCO3 VBG O2 Saturation VBG Base Excess Sodium Potassium Chloride Carbon Dioxide Anion Gap BUN Creatinine Estim Creat Clear Calc Estimated GFR POC Glucose 170 H 191 H 196 H Random Glucose Fasting Glucose Lactic Acid Calcium Phosphorus Magnesium Iron TIBC % Saturation Unsat Iron Binding Ferritin Total Bilirubin AST ALT Alkaline Phosphatase Ammonia Lactate Dehydrogenase Troponin I High Sens B-Natriuretic Peptide Total Protein Albumin PTH Intact Calcium (PTH Intact) Gastric Occult Blood Stool Occult Blood Random Vancomycin C. difficile Tox B Gene COVID-19 (JAS) COVIDDiurnal [facility] Blood Type Antibody Screen Crossmatch 06/12/22 06/13/22 06/13/22 21:26 06:07 08:09 WBC RBC Hgb Hct MCV MCH MCHC RDW Plt Count MPV Immature Gran % (Auto) Neut % (Auto) Lymph % (Auto) [place] % (Auto) Eos % (Auto) Baso % (Auto) Lymph # (Auto) [place] # (Auto) Eos # (Auto) Baso # (Auto) Abs Immat Gran (auto) Absolute Neuts (auto) Absolute Nucleated RBC Nucleated RBC % (auto) PT INR O2 Saturation ABG pH at Pt Temp ABG pCO2 at Pt Temp ABG pO2 at Pt Temp ABG HCO3 ABG Base Excess (Actual) VBG pH VBG pCO2 VBG pO2 VBG HCO3 VBG O2 Saturation VBG Base Excess Sodium 139 Potassium 4.6 Chloride 111 H Carbon Dioxide 19 L Anion Gap 14 BUN 44 H Creatinine 1.91 H Estim Creat Clear Calc 47.8 Estimated GFR 36 POC Glucose 181 H 115 Random Glucose 108 D Fasting Glucose Lactic Acid Calcium 7.5 L Phosphorus Magnesium 2.6 Iron TIBC % Saturation Unsat Iron Binding Ferritin Total Bilirubin AST ALT Alkaline Phosphatase Ammonia Lactate Dehydrogenase Troponin I High Sens B-Natriuretic Peptide Total Protein Albumin PTH Intact Calcium (PTH Intact) Gastric Occult Blood Stool Occult Blood Random Vancomycin C. difficile Tox B Gene COVID-19 (JAS) [place] [employer] Blood Type Antibody Screen Crossmatch 06/13/22 06/13/22 06/13/22 10:55 15:17 15:51 WBC RBC Hgb Hct MCV MCH MCHC RDW Plt Count MPV Immature Gran % (Auto) Neut % (Auto) Lymph % (Auto) [place] % (Auto) Eos % (Auto) Baso % (Auto) Lymph # (Auto) [place] # (Auto) Eos # (Auto) Baso # (Auto) Abs Immat Gran (auto) Absolute Neuts (auto) Absolute Nucleated RBC Nucleated RBC % (auto) PT INR O2 Saturation ABG pH at Pt Temp ABG pCO2 at Pt Temp ABG pO2 at Pt Temp ABG HCO3 ABG Base Excess (Actual) VBG pH VBG pCO2 VBG pO2 VBG HCO3 VBG O2 Saturation VBG Base Excess Sodium Potassium Chloride Carbon Dioxide Anion Gap BUN Creatinine Estim Creat Clear Calc Estimated GFR POC Glucose 140 H 155 H Random Glucose Fasting Glucose Lactic Acid Calcium Phosphorus Magnesium Iron TIBC % Saturation Unsat Iron Binding Ferritin Total Bilirubin AST ALT Alkaline Phosphatase Ammonia Lactate Dehydrogenase Troponin I High Sens B-Natriuretic Peptide Total Protein Albumin PTH Intact Calcium (PTH Intact) Gastric Occult Blood Stool Occult Blood Random Vancomycin 21.2 H C. difficile Tox B Gene COVID-19 (JAS) COVIDPropagenix19 [employer] Com Blood Type Antibody Screen Crossmatch 06/13/22 06/14/22 06/14/22 21:03 05:37 05:37 WBC 6.9 RBC 2.57 L Hgb 8.0 L Hct 24.4 L MCV 94.9 MCH 31.1 MCHC 32.8 RDW 17.9 H Plt Count 130 L MPV 11.4 Immature Gran % (Auto) Neut % (Auto) Lymph % (Auto) [place] % (Auto) Eos % (Auto) Baso % (Auto) Lymph # (Auto) [place] # (Auto) Eos # (Auto) Baso # (Auto) Abs Immat Gran (auto) Absolute Neuts (auto) Absolute Nucleated RBC 0.000 Nucleated RBC % (auto) 0.0 PT INR O2 Saturation ABG pH at Pt Temp ABG pCO2 at Pt Temp ABG pO2 at Pt Temp ABG HCO3 ABG Base Excess (Actual) VBG pH VBG pCO2 VBG pO2 VBG HCO3 VBG O2 Saturation VBG Base Excess Sodium 141 Potassium 5.0 Chloride 112 H Carbon Dioxide 19 L Anion Gap 15 BUN 45 H Creatinine 2.02 H Estim Creat Clear Calc 44.0 Estimated GFR 34 POC Glucose 93 Random Glucose Fasting Glucose 73 Lactic Acid Calcium 7.8 L Phosphorus Magnesium Iron TIBC % Saturation Unsat Iron Binding Ferritin Total Bilirubin AST ALT Alkaline Phosphatase Ammonia Lactate Dehydrogenase Troponin I High Sens B-Natriuretic Peptide Total Protein Albumin PTH Intact Calcium (PTH Intact) Gastric Occult Blood Stool Occult Blood Random Vancomycin C. difficile Tox B Gene COVID-19 (JAS) COVID-19 Clin [facility] Blood Type Antibody Screen Crossmatch 06/14/22 06/14/22 06/14/22 05:45 07:32 10:00 WBC RBC Hgb Hct MCV MCH MCHC RDW Plt Count MPV Immature Gran % (Auto) Neut % (Auto) Lymph % (Auto) [place] % (Auto) Eos % (Auto) Baso % (Auto) Lymph # (Auto) [place] # (Auto) Eos # (Auto) Baso # (Auto) Abs Immat Gran (auto) Absolute Neuts (auto) Absolute Nucleated RBC Nucleated RBC % (auto) PT INR O2 Saturation ABG pH at Pt Temp ABG pCO2 at Pt Temp ABG pO2 at Pt Temp ABG HCO3 ABG Base Excess (Actual) VBG pH VBG pCO2 VBG pO2 VBG HCO3 VBG O2 Saturation VBG Base Excess Sodium Potassium Chloride Carbon Dioxide Anion Gap BUN Creatinine Estim Creat Clear Calc Estimated GFR POC Glucose 59 L* 122 H Random Glucose Fasting Glucose Lactic Acid Calcium Phosphorus Magnesium Iron TIBC % Saturation Unsat Iron Binding Ferritin Total Bilirubin AST ALT Alkaline Phosphatase Ammonia Lactate Dehydrogenase Troponin I High Sens B-Natriuretic Peptide Total Protein Albumin PTH Intact Calcium (PTH Intact) Gastric Occult Blood Stool Occult Blood Random Vancomycin C. difficile Tox B Gene NEGATIVE COVID-19 (JAS) COVID-19 [facility] [employer] [facility] Blood Type Antibody Screen Crossmatch 06/14/22 10:59 WBC RBC Hgb Hct MCV MCH MCHC RDW Plt Count MPV Immature Gran % (Auto) Neut % (Auto) Lymph % (Auto) [place] % (Auto) Eos % (Auto) Baso % (Auto) Lymph # (Auto) [place] # (Auto) Eos # (Auto) Baso # (Auto) Abs Immat Gran (auto) Absolute Neuts (auto) Absolute Nucleated RBC Nucleated RBC % (auto) PT INR O2 Saturation ABG pH at Pt Temp ABG pCO2 at Pt Temp ABG pO2 at Pt Temp ABG HCO3 ABG Base Excess (Actual) VBG pH VBG pCO2 VBG pO2 VBG HCO3 VBG O2 Saturation VBG Base Excess Sodium Potassium Chloride Carbon Dioxide Anion Gap BUN Creatinine Estim Creat Clear Calc Estimated GFR POC Glucose Random Glucose Fasting Glucose Lactic Acid Calcium Phosphorus Magnesium Iron TIBC % Saturation Unsat Iron Binding Ferritin Total Bilirubin AST ALT Alkaline Phosphatase Ammonia Lactate Dehydrogenase Troponin I High Sens B-Natriuretic Peptide Total Protein Albumin PTH Intact Calcium (PTH Intact) Gastric Occult Blood Stool Occult Blood Random Vancomycin C. difficile Tox B Gene COVID-19 (JAS) COVID-19 Clin Com Blood Type A Positive Antibody Screen NEGATIVE Crossmatch Airway Mallampati Class: III TM Dist: >3cm Neck ROM: Full Loose/Missing/Broken Teeth: Yes, Upper and Lower Assessment and Plan Assessment Anesthesia Assessment: Anesthesia Plan Discussed Final Anesthetic Review Family History of Problems with Anesthesia: No History of Problems with Anesthesia: No NPO: Yes ASA Class: III Final Preanesthetic Review: No Changes in Pt Med Stat, Meds/Allgs Chart Reviewed, Anes Risks/Benef Reviewed and DNR Form (If Appl.) Patient Risk: Intermediate Procedure Risk: Low Anesthetic Plan Anesthetic Plan: GA Disposition: Standard PACU and Inp. Admit - Standard Bed
--- NOTE | 2022-06-14 15:16 | PM.EVENT ---
Event Note Date of Service: 06/14/22 Event Note: seen postop underwent PEG tube placement earlier today, uneventful seems to be comfortable stable vital signs dressings dry abdomen soft Pain Management okay to start using PEG tube tomorrow after 24 hours
[2022-06-14 16:33] LABS: Glucose, Whole Blood 113 mg/dL (60-115)
--- NOTE | 2022-06-14 19:40 | PM.PNNEP ---
Subjective Subjective Date of Service: 06/14/22 Principal diagnosis: Question ventricular arrhythmias Interval history: no complaints Physical Exam Vital Signs: Vital Signs: Last Vital Signs Temp 97.5 F 06/14/22 19:22 Pulse 76 06/14/22 19:22 Resp 16 06/14/22 19:22 BP 129/63 06/14/22 19:22 Pulse Ox 93 06/14/22 19:22 O2 Del Method 06/14/22 19:22 O2 Flow Rate 2 06/14/22 13:58 FiO2 25 05/26/22 09:00 BMI result Body Mass Index 31.2 Const: General: no acute distress Neck: Neck: Yes supple Resp: Auscultation: diminished lung sounds Cardio: Rate: regular rate GI: Palpation (GI): Soft to palpation Skin: Rashes: no rashes Objective Data Labs CBC & Chem 7: 06/14/22 05:37 06/14/22 05:37 Labs: Laboratory Results - last 24 hr 06/13/22 06/14/22 06/14/22 21:03 05:37 05:37 WBC 6.9 RBC 2.57 L Hgb 8.0 L Hct 24.4 L MCV 94.9 MCH 31.1 MCHC 32.8 RDW 17.9 H Plt Count 130 L MPV 11.4 Absolute Nucleated RBC 0.000 Nucleated RBC % (auto) 0.0 Sodium 141 Potassium 5.0 Chloride 112 H Carbon Dioxide 19 L Anion Gap 15 BUN 45 H Creatinine 2.02 H Estim Creat Clear Calc 44.0 Estimated GFR 34 POC Glucose 93 Fasting Glucose 73 Calcium 7.8 L C. difficile Tox B Gene Blood Type Antibody Screen 06/14/22 06/14/22 06/14/22 05:45 07:32 10:00 WBC RBC Hgb Hct MCV MCH MCHC RDW Plt Count MPV Absolute Nucleated RBC Nucleated RBC % (auto) Sodium Potassium Chloride Carbon Dioxide Anion Gap BUN Creatinine Estim Creat Clear Calc Estimated GFR POC Glucose 59 L* 122 H Fasting Glucose Calcium C. difficile Tox B Gene NEGATIVE Blood Type Antibody Screen 06/14/22 06/14/22 10:59 16:25 WBC RBC Hgb Hct MCV MCH MCHC RDW Plt Count MPV Absolute Nucleated RBC Nucleated RBC % (auto) Sodium Potassium Chloride Carbon Dioxide Anion Gap BUN Creatinine Estim Creat Clear Calc Estimated GFR POC Glucose 113 Fasting Glucose Calcium C. difficile Tox B Gene Blood Type A Positive Antibody Screen NEGATIVE Microbiology Microbiology Results: Microbiology 06/08/22 14:51 Blood - Venous Blood Culture - Final No growth after 5 days. 06/08/22 14:51 Blood - Venous Blood Culture - Final No growth after 5 days. 06/08/22 18:29 Urine Catheterized - Ybarra Catheter Urine Culture - Final No growth. 05/23/22 14:47 Sputum - Suctioned Gram Stain - Final 05/23/22 14:47 Sputum - Suctioned Sputum Culture - Final Klebsiella pneumoniae Yeast 05/20/22 00:48 Blood - Venous Blood Culture - Final No growth after 5 days. 05/20/22 00:48 Blood - Venous Blood Culture - Final No growth after 5 days. 05/17/22 17:00 Blood - Venous Blood Culture - Final No growth after 5 days. 05/17/22 16:10 Blood - Venous Blood Culture - Final No growth after 5 days. Procedures Date of Service Date of Service: 06/14/22 Assessment & Plan Assessment and plan (1) Acute kidney injury superimposed on chronic kidney disease: Status: Acute Assessment and Plan: Had ERNST due to tubular injury Has CKD 4 @ baseline with? Scr 2.5-3.0 Procrit [id number] U once a week Concur with rest of current management Time Spent With Patient Time: Total time spent is greater than 50% in coordination of care (as documented) at patient's floor/unit and/or counseling patient: Progress Note: Quality Stroke Does the patient have a stroke diagnosis?: No
[2022-06-14 20:13] LABS: Glucose, Whole Blood 136 mg/dL (60-115)
--- NOTE | 2022-06-14 22:14 | HE.PHANOTE ---
RE DESTINY CALLED RN SINCE LAB WAS NOT DRAWN. PATIENT REFUSING LAB FROM 2100. DISCUSSED WITH RN WHO WILL TRY AGAIN. EXPLAINED THE IMPORTANCE OF GETTING A LAB DRAWN SINCE TROUGH WAS ELEVATED. THANKS RUBEN
[2022-06-14] MEDS: Heparin Sodium,Porcine 5,000 UNIT/ML VIAL 5000 UNIT SUBCUT (23:23)
[2022-06-14 23:55] LABS: Vancomycin Trough 21.8 mcg/mL (10.0-20.0)
[2022-06-15] VITALS (7 sets, daily range): BP systolic 136–179; BP diastolic 62–82; PULSE 57–82; RESP 14–20; TEMP 36.3–37.2; O2SAT 90–97; BMI 33.5
[2022-06-15] MEDS: Piperacillin Sodium/Tazobactam 4.5 GM in 0.9 % Sodium Chloride 100 ML IV ×2 (00:33→06:07)
[2022-06-15] MEDS: Heparin Sodium,Porcine 5,000 UNIT/ML VIAL 5000 UNIT SUBCUT ×3 (06:07→22:23)
[2022-06-15 06:49] LABS: Hematocrit 23.5 % (42.0-52.0); Hemoglobin 7.8 g/dl (14.0-18.0); Mean Corpuscular HGB Conc 33.2 g/dl (31.0-36.0); Mean Corpuscular Volume 96.3 fL (80.0-98.0); Mean Platelet Volume 11.1 fL (9.4-12.4); Platelet Count 114 X10*3/uL (160-400); Red Blood Count 2.44 X10*6/uL (4.60-5.80); White Blood Count 5.9 X10*3/uL (4.8-10.8)
[2022-06-15 07:37] LABS: Anion Gap 17 (12-20); Blood Urea Nitrogen 46 mg/dL (9-16); Calcium 8.1 mg/dL (8.4-10.2); Carbon Dioxide 17 mmol/L (22-29); Chloride 112 mmol/L (96-108); Creatinine Clr Calc Pharmacy 41.7; Estimated Glomerular Filt Rate 30; Glucose Fasting 121 mg/dL (60-99); Potassium 4.7 mmol/L (3.3-5.1); Sodium 141 mmol/L (135-145)
[2022-06-15 08:00] LABS: Glucose, Whole Blood 108 mg/dL (60-115)
--- NOTE | 2022-06-15 10:06 | HO.PM.IMPN ---
Subjective Subjective Date of Service: 06/15/22 Interval History: cc:sob interval history: no complaints Cardiovascular Cardiovascular: Reports no additional cardiovascular complaints Respiratory Respiratory: Reports no additional respiratory complaints Physical Exam Vital Signs: Vital Signs: Last Vital Signs Temp 98.0 F 06/15/22 07:38 Pulse 78 06/15/22 07:38 Resp 19 06/15/22 07:38 BP 149/67 H 06/15/22 07:38 Pulse Ox 93 06/15/22 07:38 O2 Del Method 06/15/22 07:38 O2 Flow Rate 2 06/15/22 07:38 FiO2 25 05/26/22 09:00 BMI result Body Mass Index 33.5 Const: General: no acute distress Neck: Neck: Yes supple Resp: Auscultation: diminished lung sounds Cardio: Rate: regular rate GI: Palpation (GI): Soft to palpation Skin: Rashes: no rashes Objective Data Active Medications Acetaminophen (Acetaminophen Supp 650 Mg Supp.Rect) 650 mg NV Q6H PRN PRN Reason: Fever >100.4 Last Admin: 06/08/22 11:49 Dose: 650 mg Documented By: LUIS Amlodipine Besylate (Amlodipine Besylate 10 Mg Tablet) 10 mg G-TUBE DAILY [facility]; Protocol Last Admin: 06/14/22 10:28 Dose: Not Given Documented By: CARLEY Non-Admin Reason: NPO Carbidopa/Levodopa (Carbidopa/Levodopa 25/100 Tablet) 1 tab NG-TUBE QID [facility] Last Admin: 06/14/22 20:10 Dose: Not Given Documented By: GEOVANNA Non-Admin Reason: NPO Fentanyl (Fentanyl Citrate/Pf 100 Mcg/2 Ml Vial) 25 mcg IVPUSH Q5M PRN; Protocol PRN Reason: Pain, Moderate (Pain Scale 4-6 Heparin Sodium (Porcine) (Heparin Sodium,Porcine 5,000 Unit/Ml Vial) 5,000 unit SUBCUT Q8H [facility] Last Admin: 06/15/22 06:07 Dose: 5,000 unit Documented By: GEOVANNA Hydralazine HCl (Hydralazine Hcl 20 Mg/Ml Vial) 10 mg IVPUSH Q6H PRN; Protocol PRN Reason: SBP > 180 Last Admin: 06/09/22 03:35 Dose: 10 mg Documented By: HO.ANDERM Piperacillin Sod/Tazobactam (Sod 4.5 gm/ Sodium Chloride) 100 mls @ 200 mls/hr IV Q6H [facility] Last Infusion: 06/15/22 06:38 Dose: 0 mls/hr Documented By: GEOVANNA Vancomycin HCl 750 mg/ Sodium (Chloride) 265 mls @ 265 mls/hr IV Q24H [facility] Last Infusion: 06/14/22 01:12 Dose: 0 mls/hr Documented By: ALEX Insulin Glargine (Insulin Glargine,Hum.Rec.Anlog 100 Unit/Ml 10 Ml Vial) 30 unit SUBCUT DAILY [facility] Last Admin: 06/14/22 10:29 Dose: Not Given Documented By: CARLEY Non-Admin Reason: sugar of 59 Insulin Human Lispro (Insulin Lispro 100 Unit/Ml 3 Ml Vial) 0 unit SUBCUT QIDACHS [facility]; Protocol Last Admin: 06/15/22 08:29 Dose: Not Given Documented By: CARLEY Non-Admin Reason: No Insulin Coverage Levothyroxine Sodium (Levothyroxine Sodium 25 Mcg Tablet) 25 mcg NG-TUBE DAILY@0600 [facility] Last Admin: 06/15/22 06:12 Dose: Not Given Documented By: GEOVANNA Non-Admin Reason: peg tube not in use Metoprolol Tartrate (Metoprolol Tartrate 25 Mg Tablet) 25 mg NG-TUBE BID [facility]; Protocol Last Admin: 06/14/22 20:10 Dose: Not Given Documented By: GEOVANNA Non-Admin Reason: NPO Modafinil (Modafinil 100 Mg Tablet) 200 mg NG-TUBE DAILY [facility] Last Admin: 06/14/22 10:29 Dose: Not Given Documented By: CARLEY Non-Admin Reason: NPO Morphine Sulfate (Morphine Sulfate 2 Mg/Ml Cartridge) 1 mg IVPUSH Q4H PRN; Protocol PRN Reason: Pain, Severe (Pain Scale 7-10) Omeprazole (Omeprazole 20 Mg/10 Ml Susp.Recon) 40 mg G-TUBE DAILY@0630 [facility] Last Admin: 06/15/22 06:12 Dose: Not Given Documented By: GEOVANNA Non-Admin Reason: peg tube not in use Ondansetron HCl (Ondansetron Hcl 4 Mg/2 Ml Vial) 4 mg IVPUSH ONCE PRN PRN Reason: Nausea and Vomiting Pharmacy Consult (Consult Rx Perform Med Rec) 1 each MISCELLANE ONCE PRN PRN Reason: Consult order Pharmacy Consult (Consult Rx Vancomycin Dosing) 1 each MISCELLANE DAILY PRN PRN Reason: Consult order Sodium Chloride (0.9 % Sodium Chloride Flush 3 Ml Syringe) 3 ml IVFLUSH QSHIFT [facility] Last Admin: 06/14/22 20:11 Dose: 3 ml Documented By: GEOVANNA Labs CBC & Chem 7: 06/15/22 06:32 06/15/22 06:32 Labs: Laboratory Results - last 24 hr 06/14/22 06/14/22 06/14/22 10:59 16:25 20:09 MCV MCH MCHC RDW Plt Count MPV Absolute Nucleated RBC Nucleated RBC % (auto) Anion Gap Estim Creat Clear Calc Estimated GFR POC Glucose 113 136 H Fasting Glucose Calcium Vancomycin Trough Blood Type A Positive Antibody Screen NEGATIVE 06/14/22 06/15/22 06/15/22 23:16 06:32 06:32 MCV 96.3 MCH 32.0 MCHC 33.2 RDW 19.0 H Plt Count 114 L MPV 11.1 Absolute Nucleated RBC 0.000 Nucleated RBC % (auto) 0.0 Anion Gap 17 Estim Creat Clear Calc 41.7 Estimated GFR 30 POC Glucose Fasting Glucose 121 H D Calcium 8.1 L Vancomycin Trough 21.8 H Blood Type Antibody Screen 06/15/22 07:44 MCV MCH MCHC RDW Plt Count MPV Absolute Nucleated RBC Nucleated RBC % (auto) Anion Gap Estim Creat Clear Calc Estimated GFR POC Glucose 108 Fasting Glucose Calcium Vancomycin Trough Blood Type Antibody Screen Assessment and Plan (1) Right lower lobe pneumonia: Status: Acute (2) Toxic metabolic encephalopathy: Status: Acute (3) Dysphagia, oropharyngeal phase: Status: Acute (4) Type 2 diabetes mellitus with diabetic polyneuropathy: Status: Acute (5) CKD (chronic kidney disease) stage 3, GFR 30-59 ml/min: Status: Acute Plan 61/m with CKD3, HTN, schizophrenia, diastolic CHF frequent hospitalization was admitted on 05/17 for anasarca, exacerbation of CHF, encephalopathy and was being diuressed, he became increasingly more confused, agitated and agressive with some adjustment t Psych meds..on 05/19 he vomitted and aspirated resulting in PEA arrest and was intubated and admitted to ICU with prolonged course and was finally extubated and transfer back to [facility] on 05/28 with high concern of oral feeding; NG tube in place. Repeat swallow eval 06/06 continues to recommend NPO status Fever on 06/08 abd ? related to pneumonia vs pneuonitis -blood cultures x2 negative urine cultures negative -afebrile since 06/09 will change to augmentin s/p peg 06/14/22, start feeds and monitor for tolerance Toxic metabolic encephalopathy (likely multi factorial related to hyperammonemia/advanced Parkinson's/under lines schizophrenic tendencies, possible anoxic brain injury) -continue lactulose -Sinemet q.i.d. as ordered for parkinson - Will avoid antipsychotics as much as possible. If agitated will try small dose of Seroquel dysphagia s/p peg Diabetes type 2 -acceptable control on current therapies -continue sliding scale/Lantus as ordered -adjust as indicated CKD III--with ERNST, creatine back to baseline Hypernatremia-- resolved - Cirrhosis -continue lactulose as ordered -follow synthetic function Full Code DVT Prophylaxis: Heparin reason for continued hospitalization:monitor for tolerance of feeds in new peg Quality Stroke Does the patient have a stroke diagnosis?: No VTE Prior VTE?: No VTE Risk Level:: Medical - moderate - high VTE Device Contraindication: Treatment Not Indicated VTE Drug Contraindication: N/A - Med Ordered
[2022-06-15] MEDS: Insulin Glargine,Hum.rec.anlog 100 UNIT/ML 10 ML VIAL 30 UNIT SUBCUT (10:24)
[2022-06-15] MEDS: amLODIPine Besylate 10 MG TABLET G-TUBE (10:25)
[2022-06-15] MEDS: Metoprolol Tartrate 25 MG TABLET NG-TUBE ×2 (10:25→21:01)
[2022-06-15] MEDS: Carbidopa/Levodopa 25/100 TABLET 1 TAB NG-TUBE ×4 (10:26→21:01)
[2022-06-15] MEDS: modafiniL 100 MG TABLET 200 MG NG-TUBE (10:26)
[2022-06-15] MEDS: 0.9 % Sodium Chloride Flush 3 ML SYRINGE IVFLUSH ×2 (10:27→17:05)
[2022-06-15 11:28] LABS: Glucose, Whole Blood 105 mg/dL (60-115)
--- NOTE | 2022-06-15 11:48 | MHC.CM.PN ---
Per ROUNDS discussion, patient is Not yet medically cleared for discharge today r/t Monitoring for tolerance of feedings with new PEG. Discharge plan continues to be [facility] [place] via BLS. CM will continue to follow for D/C needs.
--- NOTE | 2022-06-15 12:05 | MHC.CLN ---
F/U PEG PLACED YESTERDAY PT RECEIVING PROMOTE AT MAX GOAL RATE OF 75ML/HR WITH 300ML FREE WATER FLUSHES Q 4 HOURS PROVIDES 1800KCALS (24KCALS/KG BASED ON IBW), 112.5G PROTEIN (1.5G/KG BASED ON IBW) FOR WOUND HEALING, 3310ML TOTAL WATER FROM FORMULA AND FLUSHES (44ML/KG BASED ON IBW) SERUM NA WNL PT RECEIVING MAXIMUM AMOUNT OF FREE WATER AVAILABLE AT THIS TIME MONITOR TOLERANCE, RESIDUALS AND LYTES
--- NOTE | 2022-06-15 12:23 | MHC.SL.SWA ---
Speech Pathologist Impression: Risk of Aspiration Due to: Medically Fragile Neurological Condition History of Pneumonia Reduced Cognition Weak Cough Weak Voice Dysphasia Diet Status: Pt now receiving nutrition via PEG, is NPO. MOLD DRESSER will continue to follow for [place] Free Water Treatment, trials of p.o. when patient is alert and able to follow directions. Liquid Consistency and Strategies for Safe Swallow: Liquid Intake Recommendation: NPO Liquid Intake Strategies: Solid Food Consistency: Dietary Recommendations: NPO Additional Modifications to Solid Foods: Overt s/s of aspiration w/ PO trials. Recommend NPO at this time w/ P/O with light equipment operator for therapeutic/gustatory stimulation. Oral Medication Intake: NPO Please contact the pharmacy regarding appropriate crushable or liquid drug formulations that are available whenever modified delivery is recommended. Compensatory Strategies and Precautions to be Taken for Safe Swallow: Supervision While Eating and Drinking for Safe Swallow: PO with MOLD DRESSER Foods to Avoid: Swallowing Recommended Treatments: Base of Tongue Exercises Gustatory Stimulation Compens. Strategy Educat. Recommendation for Speech: Inpatient Speech Therapy Comment: Pt was awake and alert this morning, mildly agitated - removing nasal cannula, however was cooperative with it being put back in place for session. Pt was verbal, communicative, responding to directions, but still evidencing confusion. Pt was given oral care at onset, with patient closing mouth around minty swab and sucking at the liquid, but also allowing swab to be moved around the oral cavity. Pt tolerated the trace amounts of mouthwash w/o signs of aspiration. Pt was then given swab doused in ice water, with similar sucking on the swab to extract the liquid, swallow initiated after mild delay, no clinical signs of aspiration on trace amount of liquid. Pt was then offered 1/4 tsp of ice water, w/ patient protruding tongue for water to be deposited. Pt was instructed to retract tongue and strip spoon with lips, given the directive X2, needed close mouth v. close lips on spoon , but then succeeded in closing mouth, sipping/stripping liquid for better oral/tongue control. Pt was given multiple 1/4 tsps with similar cuing to correct maladaptive pattern. Coughing noted after one presentation of 1/2 tsp of water. Pt education given about [place] Free Water Treatment. Pt expressed that he was happy to have some water, but would prefer a cup. At end of session, patient appeared to be trying to remove cannula again. Frequency/Duration: Date Range for Service Req: Timeline to reassess: Egg Producer Clinican/Clinical Fellow: No Supervisory Statement: I have reviewed and agree with the student/clinical fellow's documentation: N/A Speech Language Pathologist: Angella Ernandez M.A., CCC-MOLD DRESSER
--- NOTE | 2022-06-15 14:35 | HO.POSTANES ---
Post Anesthesia Evaluation Post Anesthesia Evaluation Vital Signs: Vital Signs Temp Pulse Resp BP Pulse Ox O2 Del Method O2 Flow Rate 06/15/22 11:20 90 L Room Air 06/15/22 12:00 98.4 F 57 18 136/64 94 Nasal Cannula 2 06/15/22 07:38 98.0 F 78 19 149/67 H 93 Nasal Cannula 2 06/15/22 04:00 98.9 F 74 20 158/64 H 92 Nasal Cannula 2 Anesthesia: General Mental Status: Awake Pain Control: Satisfactory Nausea/Vomiting: None Hydration: Adequate Anesthesia-Related Issues: No Anes. Related Issues
--- NOTE | 2022-06-15 15:48 | P.PNGS_ITS ---
Subjective Subjective Date of Service: 06/15/22 Interval history: no events overnight appears comfortable Physical Exam Vital Signs: Vital Signs: Last Vital Signs Temp 98.1 F 06/15/22 15:14 Pulse 63 06/15/22 15:14 Resp 14 06/15/22 15:14 BP 141/62 H 06/15/22 15:14 Pulse Ox 97 06/15/22 15:14 O2 Del Method 06/15/22 15:14 O2 Flow Rate 2 06/15/22 15:14 FiO2 25 05/26/22 09:00 BMI result Body Mass Index 33.5 Const: General: comfortable and no acute distress Resp: Effort & Inspection: normal respiratory effort Cardio: Rhythm: abnormal rhythm GI: Other: dressings dry, PEG in place Palpation (GI): Soft to palpation and not firm Objective Data Active Medications Acetaminophen (Acetaminophen Supp 650 Mg Supp.Rect) 650 mg [place] Q6H PRN PRN Reason: Fever >100.4 Last Admin: 06/08/22 11:49 Dose: 650 mg Documented By: LUIS Amlodipine Besylate (Amlodipine Besylate 10 Mg Tablet) 10 mg G-TUBE DAILY [facility]; Protocol Last Admin: 06/15/22 10:25 Dose: 10 mg Documented By: CARLEY Amoxicillin/Clavulanate Potassium (Amoxicillin/Potassium Clav 2,000 Mg/50 Ml Bottle) 875 mg G-TUBE Q12H [facility] Last Admin: 06/15/22 12:34 Dose: 875 mg Documented By: CARLEY Carbidopa/Levodopa (Carbidopa/Levodopa 25/100 Tablet) 1 tab NG-TUBE QID [facility] Last Admin: 06/15/22 12:33 Dose: 1 tab Documented By: CARLEY Fentanyl (Fentanyl Citrate/Pf 100 Mcg/2 Ml Vial) 25 mcg IVPUSH Q5M PRN; Protocol PRN Reason: Pain, Moderate (Pain Scale 4-6 Heparin Sodium (Porcine) (Heparin Sodium,Porcine 5,000 Unit/Ml Vial) 5,000 unit SUBCUT Q8H [facility] Last Admin: 06/15/22 14:24 Dose: 5,000 unit Documented By: CARLEY Hydralazine HCl (Hydralazine Hcl 20 Mg/Ml Vial) 10 mg IVPUSH Q6H PRN; Protocol PRN Reason: SBP > 180 Last Admin: 06/09/22 03:35 Dose: 10 mg Documented By: MEKHI Insulin Glargine (Insulin Glargine,Hum.Rec.Anlog 100 Unit/Ml 10 Ml Vial) 30 unit SUBCUT DAILY [facility] Last Admin: 06/15/22 10:24 Dose: 30 unit Documented By: CARLEY Insulin Human Lispro (Insulin Lispro 100 Unit/Ml 3 Ml Vial) 0 unit SUBCUT QIDACHS [facility]; Protocol Last Admin: 06/15/22 12:28 Dose: Not Given Documented By: CARLEY Non-Admin Reason: No Insulin Coverage Levothyroxine Sodium (Levothyroxine Sodium 25 Mcg Tablet) 25 mcg NG-TUBE DAILY@0600 [facility] Last Admin: 06/15/22 06:12 Dose: Not Given Documented By: GEOVANNA Non-Admin Reason: peg tube not in use Metoprolol Tartrate (Metoprolol Tartrate 25 Mg Tablet) 25 mg NG-TUBE BID [facility]; Protocol Last Admin: 06/15/22 10:25 Dose: 25 mg Documented By: CARLEY Modafinil (Modafinil 100 Mg Tablet) 200 mg NG-TUBE DAILY [facility] Last Admin: 06/15/22 10:26 Dose: 200 mg Documented By: CARLEY Morphine Sulfate (Morphine Sulfate 2 Mg/Ml Cartridge) 1 mg IVPUSH Q4H PRN; Protocol PRN Reason: Pain, Severe (Pain Scale 7-10) Omeprazole (Omeprazole 20 Mg/10 Ml Susp.Recon) 40 mg G-TUBE DAILY@0630 [facility] Last Admin: 06/15/22 10:25 Dose: 40 mg Documented By: CARLEY Ondansetron HCl (Ondansetron Hcl 4 Mg/2 Ml Vial) 4 mg IVPUSH ONCE PRN PRN Reason: Nausea and Vomiting Pharmacy Consult (Consult Rx Perform Med Rec) 1 each MISCELLANE ONCE PRN PRN Reason: Consult order Pharmacy Consult (Consult Rx Vancomycin Dosing) 1 each MISCELLANE DAILY PRN PRN Reason: Consult order Sodium Chloride (0.9 % Sodium Chloride Flush 3 Ml Syringe) 3 ml IVFLUSH QSHIFT [facility] Last Admin: 06/15/22 10:27 Dose: 3 ml Documented By: CARLEY Labs CBC & Chem 7: 06/15/22 06:32 06/15/22 06:32 Labs: Laboratory Results - last 24 hr 06/14/22 06/14/22 06/14/22 16:25 20:09 23:16 MCV MCH MCHC RDW Plt Count MPV Absolute Nucleated RBC Nucleated RBC % (auto) Anion Gap Estim Creat Clear Calc Estimated GFR POC Glucose 113 136 H Fasting Glucose Calcium Vancomycin Trough 21.8 H 06/15/22 06/15/22 06/15/22 06:32 06:32 07:44 MCV 96.3 MCH 32.0 MCHC 33.2 RDW 19.0 H Plt Count 114 L MPV 11.1 Absolute Nucleated RBC 0.000 Nucleated RBC % (auto) 0.0 Anion Gap 17 Estim Creat Clear Calc 41.7 Estimated GFR 30 POC Glucose 108 Fasting Glucose 121 H D Calcium 8.1 L Vancomycin Trough 06/15/22 11:20 MCV MCH MCHC RDW Plt Count MPV Absolute Nucleated RBC Nucleated RBC % (auto) Anion Gap Estim Creat Clear Calc Estimated GFR POC Glucose 105 Fasting Glucose Calcium Vancomycin Trough Procedures Date of Service Date of Service: 06/15/22 Progress Note: A&P Assessment and plan (1) Dysphagia, oropharyngeal phase: Status: Acute Assessment and Plan: s/p PEG seems to be doing well postop ok to start PEG feeds today keep external bolster snug on abdominal wall Time Spent With Patient Time: Total time spent is greater than 50% in coordination of care (as documented) at patient's floor/unit and/or counseling patient: Quality Stroke Does the patient have a stroke diagnosis?: No VTE Prior VTE?: No VTE Risk Level:: Medical - moderate - high VTE Device Contraindication: Treatment Not Indicated VTE Drug Contraindication: N/A - Med Ordered
[2022-06-15 16:08] LABS: Glucose, Whole Blood 103 mg/dL (60-115)
[2022-06-15 20:44] LABS: Glucose, Whole Blood 111 mg/dL (60-115)
[2022-06-16] MEDS: 0.9 % Sodium Chloride Flush 3 ML SYRINGE IVFLUSH ×2 (01:30→08:57)
[2022-06-16 02:57] VITALS: BP 173/100; PULSE 67; RESP 19; TEMP 36.8; O2SAT 96
[2022-06-16 04:16] VITALS: BP 158/76; PULSE 64
[2022-06-16] MEDS: Levothyroxine Sodium 25 MCG TABLET NG-TUBE (05:26)
[2022-06-16] MEDS: Heparin Sodium,Porcine 5,000 UNIT/ML VIAL 5000 UNIT SUBCUT (05:27)
[2022-06-16 05:55] LABS: Hematocrit 23.3 % (42.0-52.0); Hemoglobin 7.7 g/dl (14.0-18.0); Mean Corpuscular Hemoglobin 32.2 pg (27.0-33.0); Mean Corpuscular Volume 97.5 fL (80.0-98.0); Mean Platelet Volume 11.2 fL (9.4-12.4); Platelet Count 109 X10*3/uL (160-400); Red Blood Count 2.39 X10*6/uL (4.60-5.80); Red Cell Distribution Width 19.1 % (11.0-16.0); White Blood Count 5.5 X10*3/uL (4.8-10.8)
[2022-06-16 06:00] VITALS: BMI 33.6
[2022-06-16 06:15] LABS: Anion Gap 16 (12-20); Blood Urea Nitrogen 46 mg/dL (9-16); Calcium 8.3 mg/dL (8.4-10.2); Carbon Dioxide 19 mmol/L (22-29); Chloride 112 mmol/L (96-108); Creatinine Clr Calc Pharmacy 40.2; Estimated Glomerular Filt Rate 29; Glucose Fasting 189 mg/dL (60-99); Potassium 5.4 mmol/L (3.3-5.1); Sodium 142 mmol/L (135-145)
[2022-06-16 07:11] LABS: Glucose, Whole Blood 173 mg/dL (60-115)
[2022-06-16 07:22] VITALS: BP 169/73; PULSE 65; RESP 18; TEMP 36.6; O2SAT 95
[2022-06-16] MEDS: Insulin Glargine,Hum.rec.anlog 100 UNIT/ML 10 ML VIAL 30 UNIT SUBCUT (08:56)
[2022-06-16] MEDS: Sodium Polystyrene Sulfon/Sorb 15 GM/60 ML ORAL.SUSP G-TUBE (08:56)
[2022-06-16] MEDS: Insulin Lispro 100 UNIT/ML 3 ML VIAL SUBCUT (08:57)
[2022-06-16] MEDS: amLODIPine Besylate 10 MG TABLET G-TUBE (08:57)
[2022-06-16] MEDS: modafiniL 100 MG TABLET 200 MG NG-TUBE (08:57)
[2022-06-16] MEDS: Metoprolol Tartrate 25 MG TABLET NG-TUBE (08:57)
[2022-06-16] MEDS: Carbidopa/Levodopa 25/100 TABLET 1 TAB NG-TUBE (08:57)
--- NOTE | 2022-06-16 10:01 | P.DS_ITS ---
DS: Providers Provider Date of Service: 06/16/22 Date of admission: 05/17/22 17:33 Primary care physician: Daniel Moon DO Consults: 05/17/22 17:36 Consult to Cardiology Routine Consulting Provider: Cristo Valverde Reason for consultation: Heart failure Has provider been notified: No 05/18/22 06:42 Consult to Urology Routine Consulting Provider: Ck Carlisle Reason for consultation: penile bleeding; pt pulled out josé. 05/19/22 18:05 Consult to Psychiatry Routine Consulting Provider: Psych Covering Reason for consultation: Psychosis Has provider been notified: No 05/27/22 10:59 Consult to General Surgery Routine Consulting Provider: Sae Lizarraga Reason for consultation: Feeding gastrostomy Has provider been notified: Yes 05/30/22 10:25 Consult to Nephrology Routine Consulting Provider: Darren Bertrand Reason for consultation: Hypernatremia, ERNST Has provider been notified: No 06/13/22 05:47 Consult to Cardiology Routine Consulting Provider: Haroon Esteban Reason for consultation: vtach Has provider been notified: No DS: Diagnosis Discharge Diagnosis (1) Dysphagia, oropharyngeal phase: Status: Acute DS: Summary Hospital Course Hospital Course: from initial hpi: Chief Complaint: leg edema and shortness of breath ?61 years old male with PMH of CKD stage 3 stable with baseline Cr of about 2.5, dementia, cirrhosis, HTN that is controlled, , Parkinson, history of subdura hematoma that is stable, schizophrenia stable of meds, , diastolic heart failure EF 60%, among others who presents to the hospital from [facility] with increasing leg edema and SOB.? He reports 30 Ib weight gain over 3 weeks, he has marked leg edema. BNP is nearly 2000, CXR shows diffuse infiltrate compatible with CHF. He has no cough, fever or chills. His has been given IV Lasix and is being admitted for mangement of CHF hospital course: patient had prolonged course, please see medical record for full details. Patient was admitted for anasarca due to acute on chronic diastolic CHF and fluid overload and cirrhosis complicated by toxic metabolic encephalopathy he was given IV diuresis but became more confused agitated aggressive, he ended up vomiting and aspirating resulting in cardiac arrest with PEA. ROSC was achieved and patient had prolonged course in ICU. he was able to be successfully extubated, had dysphagia and required NG tube feeds and then Gtube was placed, tolerating feeds well. course was complicated by acute hypoxic respiraotry failure due to aspiratoin ppneumonia, was treated with vanc and zosyn and will be given 5 more days of augmentin on discharge. for DM was continued on insulin, for ernst on CKD III, creatinine stabilized around 2.5. course complicated by hypernatremia which improved with free water. patient now medically stable for discharge back to SNF. tube feeds: PT RECEIVING PROMOTE AT MAX GOAL RATE OF 75ML/HR WITH 300ML FREE WATER FLUSHES Q 4 HOURS PROVIDES 1800KCALS (24KCALS/KG BASED ON IBW), 112.5G PROTEIN (1.5G/KG BASED ON IBW) FOR WOUND HEALING, 3310ML TOTAL WATER FROM FORMULA AND FLUSHES (44ML/KG BASED ON IBW) Time Spent with Patient Time attestation: Total time spent providing and/or coordinating discharge services: Discharge coordination time: Greater than 30 minutes Quality: Safe Use of Opioids Does Pt have an Active Cancer Diagnosis on the Problem List?: No Quality: Stroke Does the patient have a stroke diagnosis?: No Physical Exam Vital Signs: Vital Signs: Last Vital Signs Temp 98 F 06/16/22 07:22 Pulse 65 06/16/22 07:22 Resp 18 06/16/22 07:22 BP 169/73 H 06/16/22 07:22 Pulse Ox 95 06/16/22 07:22 O2 Del Method 06/16/22 07:22 O2 Flow Rate 1.5 06/16/22 07:22 FiO2 25 05/26/22 09:00 BMI result Body Mass Index 33.6 Const: General: comfortable and no acute distress Resp: Effort & Inspection: normal respiratory effort Cardio: Rhythm: abnormal rhythm GI: Other: dressings dry, PEG in place Palpation (GI): Soft to palpation and not firm DS: Data Data Completed and Pending Completed studies during hospitalization [Text1]: Procedures Transfusion of Nonautologous Red Blood Cells into Peripheral Vein, Percutaneous Approach (03/20/22) Labs on day of discharge: Laboratory Results - last 24 hr 06/15/22 06/15/22 06/15/22 11:20 16:02 20:38 WBC RBC Hgb Hct MCV MCH MCHC RDW Plt Count MPV Absolute Nucleated RBC Nucleated RBC % (auto) Sodium Potassium Chloride Carbon Dioxide Anion Gap BUN Creatinine Estim Creat Clear Calc Estimated GFR POC Glucose 105 103 111 Fasting Glucose Calcium 06/16/22 06/16/22 06/16/22 05:43 05:43 07:08 WBC 5.5 RBC 2.39 L Hgb 7.7 L Hct 23.3 L MCV 97.5 MCH 32.2 MCHC 33.0 RDW 19.1 H Plt Count 109 L MPV 11.2 Absolute Nucleated RBC 0.000 Nucleated RBC % (auto) 0.0 Sodium 142 Potassium 5.4 H Chloride 112 H Carbon Dioxide 19 L Anion Gap 16 BUN 46 H Creatinine 2.29 H Estim Creat Clear Calc 40.2 Estimated GFR 29 POC Glucose 173 H Fasting Glucose 189 H D Calcium 8.3 L Discharge Plan Discharge Patient Disposition: er [facility] Discharge Diagnosis: cardiac arrest, pneumonia, dysphagia Referrals: Daniel Moon DO [Primary Care Provider] - 1 Week Discharge Medications: New amoxicillin-pot clavulanate 200-28.5 mg/5 mL Suspension For Reconstitution 875 mg G-tube Q12H 5 Days Qty: 0 0RF amlodipine 10 mg Tablet 10 mg G-tube DAILY Qty: 0 0RF Protocol: Hold for SBP< HOLD for SBP < : 90 modafinil [Provigil] 100 mg Tablet 200 mg NG-TUBE DAILY Qty: 0 0RF Omeprazole Oral Susp [Prilosec Oral Susp] 40 mg G-tube DAILY@0630 Qty: 0 0RF Continued docusate sodium 100 mg Tablet 100 mg PO BEDTIME tramadol 50 mg Tablet 50 mg PO BID Hold Instructions: MD to decide if needed to be resumed Lotrimin AF 2 % Aerosol,[place] 1 spray TOPICAL BID PRN (Reason: fungal infection) fluphenazine decanoate 25 mg/mL Solution 50 mg SUBCUT Q14D benztropine 1 mg Tablet 1 mg PO BID carbidopa-levodopa [Sinemet] 25-100 mg Tablet 1 tab PO QID sennosides [senna] 8.6 mg Tablet 8.6 mg PO DAILY PRN (Reason: Constipation) acetaminophen 325 mg Tablet 650 mg PO Q4H PRN (Reason: PAIN/TEMP>100) bisacodyl 10 mg Suppository 10 mg IA DAILY PRN (Reason: Constipation) Calazime Skin Protectant 1 applic topical QSHIFT Protocol: Apply to: Apply to: GROIN Rx Instructions: APPLY TO GROIN TOPICALLY EVERY SHIFT FOR REDNESS AND IRRITATION WASH GROIN WITH WARM SOAPY WATER. PAT DRY. APPLY CLAZIME CREAM TO GROIN. guaifenesin 100 mg/5 mL Liquid 200 mg PO Q4H PRN (Reason: Cough) lactulose 20 gram/30 mL solution 20 g PO DAILY metoprolol tartrate 25 mg tablet 25 mg PO BID Protocol: Hold for SBP/HR < HOLD for SBP < : 90 HOLD for HR < : 60 furosemide 20 mg tablet 20 mg PO QAM Qty: 30 0RF multivitamin Tablet 1 tab PO DAILY levothyroxine 25 mcg tablet 25 mcg PO DAILY@0600 Xifaxan 550 mg tablet 1 tab PO BID insulin lispro [Humalog KwikPen Insulin] 100 unit/mL Insulin Pen See Protocol SUBCUT QIDACHS Protocol: Insulin Correction Scale Less than or equal to 110 ---- Give (units): 0 111 to 150 Give (units): 0 151 to 200 Give (units): 4 201 to 250 Give (units): 6 251 to 300 Give (units): 8 301 to 350 Give (units): 10 Greater than 350 Give (units): 12 Call MD if Blood Glucose > : 350 insulin glargine [Lantus Solostar U-100 Insulin] 100 unit/mL (3 mL) Insulin Pen 20 unit SUBCUT BID gabapentin 300 mg Capsule 300 mg PO TID Discontinued amlodipine 10 mg tablet 10 mg PO BEDTIME hydralazine 25 mg Tablet 25 mg PO TID metformin 1,000 mg Tablet 1,000 mg PO BID Discharge Orders: Discharge Order (Routine); Ordered 06/16/22 Ordered By: Hua Lang Diet: tube feeds Activity on Discharge: As tolerated Stand Alone Forms: Patient Portal Discharge page Care Plan Goals: recovery Health Concerns: dysphagia Plan of Treatment: 5 days augmentin, tube feeds Assessment: see above
--- NOTE | 2022-06-16 10:55 | MHC.CM.PN ---
Patient has been medically cleared for d/c to LTC (return to LTC @ [facility]) today at 1PM, via [facility]. IMM addressed with [facility] [place] @ [phone] and original will be mailed to her and a copy has been placed on the chart.
[2022-06-16 11:10] VITALS: BP 154/77; PULSE 70; RESP 20; TEMP 36.9; O2SAT 96
[2022-06-16 11:12] LABS: Glucose, Whole Blood 123 mg/dL (60-115)
[2022-06-16 12:00] LABS: COVID-19 Test Negative (Negative)
--- NOTE | 2022-07-05 10:36 | P.PNCC_ITS ---
Critical Care Event Note Summary Date of Service: 07/05/22 Code activated: No Narrative: I was asked to see Mr. Blackburn in surgery preop holding area by Dr. Castillo, the anesthesiologist caring for him prior to a proposed paracentesis and renal bx, because of resp distress. The patient is well known to me -- see my note of May 28. At that time, our plan was to move to DNR/M[employer]IT[employer]ER status. Since then, incredibly, the patient has been started on dialysis. At this time, I'm not sure what happened to allow that. In any event, he's currently in mild respiratory distress, with sat 88% on 4 L nasal cannula. I spoke with Dr. Reich, he thinks the respiratory distress is secondary to his large volume ascites. In my opinion, it is reasonable to try to improve his respiratory distress via paracentesis. That can be done with assistance of the anesthesiologist controlling his work of breathing (e.g. with fentanyl). During the paracentesis, the patient should also be given 50 cc of 25% albumin per liter of fluid removed during the paracentesis, in order to prevent postprocedural hypotension. I would strongly suggest deferring the renal biopsy to another time. Postprocedure, the patient can be recovered in the PACU. If necessary, I will see him there. If necessary, he can be admitted to the ICU. Time (including brief eval of the patient at the bedside, review of the hospital chart, extensive d/w the anesthesiologist and with Dr. Lang): 30+ min ([id number]) Critical Care Time (minutes): 0
== END 2022-06-16 13:25 | disposition skilled nursing facility (03) | DRG 291 ==
LOC: HO.ED 16:12 → HO.EDOVER 17:42 → HO.IMC 21:12 → HO.ICU 05-19 19:31 → HO.IMC 05-28 18:02
PROVIDERS: Anesthesiology; Internal Medicine; Internal Medicine Nephrology; Internal Medicine Pulmonary Disease; Physician Assistant; Physician Assistant Medical; Registered Nurse Community Health; Student in an Organized Health Care Education/Training Program; Surgery; Admitting Provider Internal Medicine; Emergency Provider Emergency Medicine; PCP Hospitalist; Visit Provider Internal Medicine
PROC: 0DH63UZ Insertion of Feeding Device into Stomach, Percutaneous Approach (ICD-10-PCS; CPT 43246; principal; 2022-06-14 13:00)
DX: I13.0 Hypertensive heart and chronic kidney disease with heart failure and stage 1 through stage 4 chronic kidney disease, or unspecified chronic kidney disease (principal); G92.8 Other toxic encephalopathy; I46.9 Cardiac arrest, cause unspecified; I50.33 Acute on chronic diastolic (congestive) heart failure; J96.01 Acute respiratory failure with hypoxia; J69.0 Pneumonitis due to inhalation of food and vomit; K72.91 Hepatic failure, unspecified with coma; N17.9 Acute kidney failure, unspecified; F02.81 Dementia in other diseases classified elsewhere, unspecified severity, with behavioral disturbance; D68.4 Acquired coagulation factor deficiency; E87.3 Alkalosis; E87.0 Hyperosmolality and hypernatremia; D63.1 Anemia in chronic kidney disease; N18.30 Chronic kidney disease, stage 3 unspecified; K74.60 Unspecified cirrhosis of liver; E11.22 Type 2 diabetes mellitus with diabetic chronic kidney disease; E11.42 Type 2 diabetes mellitus with diabetic polyneuropathy; G20 Parkinson's disease; R31.0 Gross hematuria; D69.59 Other secondary thrombocytopenia; E87.6 Hypokalemia; L89.152 Pressure ulcer of sacral region, stage 2; R13.12 Dysphagia, oropharyngeal phase; L89.326 Pressure-induced deep tissue damage of left buttock; L89.316 Pressure-induced deep tissue damage of right buttock; Z78.1 Physical restraint status; T83.028A Displacement of other urinary catheter, initial encounter; E83.42 Hypomagnesemia; Y73.8 Miscellaneous gastroenterology and urology devices associated with adverse incidents, not elsewhere classified; F20.9 Schizophrenia, unspecified; Z20.822 Contact with and (suspected) exposure to COVID-19; Z79.4 Long term (current) use of insulin; Z79.890 Hormone replacement therapy; Z79.899 Other long term (current) drug therapy
CPT/HCPCS: 36415; 36600; 70450; 71045; 73521; 74176; 80048; 80051; 80053; 80202; 82040; 82140; 82271; 82272; 82728; 82803; 82947; 83540; 83605; 83615; 83735; 83880; 83970; 84100; 84484; 85014; 85018; 85025; 85027; 85610; 86850; 86900; 86901; 86923; 87040; 87070; 87077; 87086; 87186; 87205; 87493; 87635; 92507; 92610; 93005; 93306; 94002; 94003; 94640; 94799; 99285; C1758; J0171; J0295; J0690; J1100; J1205; J1265; J1940; J2060; J2405; J2543; J3010; J3370; J3430; J3475; P9016; P9047

== ENCOUNTER 2022-06-20 11:50 | Inpatient (IN) | payer MEDICARE, MEDICAID, SELFPAY ==
[2022-06-20] VITALS (7 sets, daily range): BP systolic 161–179; BP diastolic 60–94; PULSE 81–90; RESP 15–22; TEMP 37.1–38.2; O2SAT 83–98; BMI 29.6
--- NOTE | ~2022-06-20 | XR_ITS ---
EXAMINATION: XR CHEST CLINICAL INFORMATION: Replacement of HD catheter COMPARISON: Chest x-ray performed earlier 07/05/2022 TECHNIQUE: Portable AP upright view of the chest was obtained. FINDINGS: Dual-lumen right IJ central venous catheter tip terminates in the proximal SVC just distal to the confluence with the left brachiocephalic vein. No pneumothorax visualized. Small pleural effusions and patchy bibasilar opacities. The cardiomediastinal silhouette is within normal limits. Mildly prominent pulmonary vascular markings. No overt pulmonary edema. No acute osseous injury. Lucency beneath the right hemidiaphragm suspicious for intra-abdominal free air. XR/XR chest 1V IMPRESSION: 1. Unexpected finding: Lucency beneath the right hemidiaphragm suspicious for intra-abdominal free air. Correlate clinically with any evidence of dislodgment of the percutaneous gastrostomy tube or suspicion for hollow viscus perforation. This critical result was discussed with Dr. Hill Stahl at 10:41 PM on 07/05/2022 and it was ascertained that the content and urgency of the report was understood at the time of direct communication. 2. Right IJ dual-lumen catheter tip terminates in the proximal SVC. 3. No pneumothorax. 4. Small bilateral pleural effusions and patchy bibasilar airspace opacities. 5. Possible mild pulmonary vascular congestion/edema.
--- NOTE | ~2022-06-20 | CT_ITS ---
EXAMINATION: CT ABDOMEN AND PELVIS WITHOUT CONTRAST CLINICAL INFORMATION: Abdominal distention and vomiting. COMPARISON: 06/28/2022. TECHNIQUE: Multidetector volumetric imaging was performed from the superior aspect of the liver through the pubic symphysis. Sagittal and coronal reformatted images were obtained on the technologist's workstation. This CT examination was performed using dose optimization techniques as appropriate, variously including the following: *Automated exposure control *Adjustment of mA and/or kV according to patient size (this includes techniques or standardized protocols for targeted exams where dose is matched to indication/reason for exam; i.e. extremities or head) *Use of iterative reconstruction technique DLP: 975.2 mGy-cm for the abdomen and pelvis CT, excluding topogram FINDINGS: LUNG BASES: Respiratory motion on the images acquired through the bases. Small bilateral pleural effusions are similar compared to 06/28/2022. Left lower lobe is nearly completely collapsed. Passive atelectasis of posterior right lower lobe. No pericardial effusion. LIVER: Cirrhotic liver has nodular surface contour. No focal liver lesions are detected on this noncontrast examination. GALLBLADDER AND BILIARY TREE: Gallbladder is grossly unremarkable, but suboptimally evaluated due to the extensive ascites. No dilated bile ducts. PANCREAS: No acute imaging findings within the atrophied pancreas. SPLEEN: Splenomegaly is present. Spleen measures up to 14.5 cm maximum dimension. ADRENAL GLANDS: Normal. KIDNEYS AND URETERS: Kidneys have normal size. No acute findings. No nephrolithiasis or hydronephrosis. BLADDER: Decompressed by a Ybarra catheter. No bladder calculi. BOWEL AND PERITONEUM: The lumen of the esophagus is distended with fluid. Also, the stomach is distended with fluid. No dilated loops of small or large bowel. Bowel loops are centrally displaced by the large volume of ascites. Pneumoperitoneum has significantly decreased compared to 06/28/2022, status post gastrostomy tube placement. The tip of the gastrostomy tube is well-positioned in the gastric body. ABDOMINAL WALL: Diffuse edema. VASCULATURE: Atherosclerotic calcification of the abdominal aorta and branch vessels. No aortic aneurysm. No retroperitoneal hematoma. Perisplenic varices and spontaneous splenorenal shunt. LYMPH NODES: No pathologic sized lymph nodes in the abdomen or pelvis. No inguinal lymphadenopathy. PELVIC VISCERA: Prostate gland is grossly unremarkable. SKELETAL: Facet arthropathy lumbar spine is worst on the right at L4-L5. Minimal degenerative anterolisthesis of L4 on L5. No suspicious bone lesions. CT/CT abdomen pelvis wo con IMPRESSION: * Anasarca with persistent findings of pleural effusions, large volume ascites and diffuse edema of subcutaneous tissues. * Cirrhosis, splenomegaly, varices and spontaneous splenorenal shunt. * Pneumoperitoneum has decreased compared to 06/28/2022. The gastrostomy tube is in appropriate position. * The esophagus and stomach are distended with fluid. There is no bowel obstruction. The fluid distention might be a manifestation of gastric hypomotility, or there might be gastroesophageal reflux as well. .
--- NOTE | ~2022-06-20 | XR_ITS ---
EXAMINATION: XR ABDOMEN KUB CLINICAL INDICATION: PEG tube placement COMPARISON: Abdomen radiograph 02/21/2022, CT abdomen pelvis earlier 07/05/2022 TECHNIQUE: AP view of the abdomen. FINDINGS: Percutaneous gastrostomy tube projects in the left upper quadrant. There is lucency beneath the right hemidiaphragm equivocal for intra-abdominal free air. No dilated air-filled bowel loops in the visualized portion of the abdomen. Small pleural effusions and patchy bibasilar airspace opacities left worse than right. XR/XR abdomen 1V IMPRESSION: 1. Percutaneous gastrostomy tube projects in the left upper quadrant. 2. Lucency beneath the right hemidiaphragm equivocal for intra-abdominal free air versus artifact.
--- NOTE | ~2022-06-20 | IR_ITS ---
PROCEDURE: IR INSERTION OF CENTRAL VENOUS CATHETER CLINICAL INFORMATION: Worsening renal function. Need for temporary dialysis. COMPARISON: None. 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 Patient was placed supine on fluoroscopy table and preliminary ultrasound imaging to the right neck was performed. An optimal site was selected and marked on the skin. The marked site was cleaned and draped in the usual sterile manner. 1% lidocaine was injected at the marked site. Under sterile ultrasound guidance, a single wall needle was advanced and the right jugular vein was punctured above the right clavicle. After observing venous return, a thin guidewire was placed through the needle and needle withdrawn. A 5 Bolivian dilator was inserted over the guidewire. The thin guidewire and the dilator were removed and a 0.035 J-wire was advanced and placed in IVC under fluoroscopy. The 5 Bolivian dilator was removed and the tract was dilated with 8 Bolivian, 10 Bolivian and 12 Bolivian dilators. A 11.2 [place] 13 cm long Mahurkar temporary dialysis catheter was advanced over the guidewire and placed in the SVC. A single image was obtained. The catheter was anchored with two 3-0 nylon sutures to the skin. Both ports of the catheter were flushed with saline followed by heparin instillation. Sterile dressing applied postprocedure. Patient tolerated procedure extremely well. No conscious sedation was utilized. All elements of maximal sterile barrier technique followed including use of cap, mask, sterile gown, sterile gloves, a sterile full body drape and hand hygiene. Also followed skin preparation with 2% chlorhexidine for cutaneous antisepsis, and sterile ultrasound preparation with sterile gel and probe cover when applicable. FINDINGS: On preliminary ultrasound imaging, the right jugular vein is patent with mild septation seen centrally. Fluoroscopy and ultrasound-guided placement of a 11.2 [place] 13 cm long temporary dialysis catheter through the right jugular vein. IR/IR cvc insert non tunnel IMPRESSION: Successful ultrasound and fluoroscopy-guided placement of temporary dialysis catheter via right jugular vein. The tip of the catheter lies in the proximal/mid SVC Fluoroscopy Time: 0.4 minutes. Dose Area Product: 131 cGy-cm2.
--- NOTE | ~2022-06-20 | CT_ITS ---
EXAMINATION: CT HEAD WITHOUT CONTRAST CLINICAL INFORMATION: Mental status change. Question facial droop. COMPARISON: Previous head CT most recent May 2022 TECHNIQUE: Contiguous axial imaging was performed from the skull base to vertex without intravenous administration of contrast. This CT examination was performed using dose optimization techniques as appropriate, variously including the following: *Automated exposure control *Adjustment of mA and/or kV according to patient size (this includes techniques or standardized protocols for targeted exams where dose is matched to indication/reason for exam; i.e. extremities or head) *Use of iterative reconstruction technique DLP: 958 mGy-cm FINDINGS: There is no evidence of an extra-axial collection. There is no evidence of intra or extra-axial hemorrhage. The ventricles and extra-axial CSF spaces are prominent suggestive of generalized atrophy. There is nonspecific periventricular white matter disease. No mass, mass effect or infarct is seen. Review at bone windows is normal. No skull fracture is seen. There is some soft tissue opacification of the left mastoid air cells. This is similar to previous exam. Visualized paranasal sinuses, mastoid air cells and middle ears are otherwise clear. CT/CT head/brain wo con IMPRESSION: No acute findings. Mild generalized atrophy and nonspecific periventricular white matter disease similar to previous exams
--- NOTE | ~2022-06-20 | XR_ITS ---
EXAMINATION: XR CHEST CLINICAL INFORMATION: Hypoxia evaluation COMPARISON: 06/20/2022 TECHNIQUE: Frontal view of the chest was obtained. FINDINGS: The cardiomediastinal silhouette is enlarged but stable. Diffuse bilateral interstitial disease and mild increased pulmonary vascularity. Trace left pleural effusion. XR/XR chest 1V IMPRESSION: Pulmonary edema and fluid overload.
--- NOTE | ~2022-06-20 | XR_ITS ---
EXAMINATION: XR CHEST CLINICAL INFORMATION: Fever and hypoxia COMPARISON: Chest x-ray 11/01/2022 TECHNIQUE: Frontal view of the chest was obtained. FINDINGS: Enlarging small left pleural effusion with blunted costophrenic angle. Worsening airspace opacity at the left lung base obscuring left hemidiaphragm portion left heart border. Diffuse bilateral airspace opacities are again seen. Slightly indistinct right costophrenic sulcus equivocal for trace pleural effusion. No pneumothorax. Normal cardiomediastinal silhouette. No acute osseous injury. Question of G-tube projects in the left upper quadrant. XR/XR chest 1V IMPRESSION: 1. Diffuse bilateral airspace opacities with worsening of airspace consolidation at the left lung base. Differential considerations include pulmonary edema or diffuse pneumonia 2. Enlarging small left pleural effusion. 3. Possible trace right pleural effusion.
--- NOTE | ~2022-06-20 | CT_ITS ---
EXAMINATION: CT ABDOMEN AND PELVIS WITHOUT CONTRAST CLINICAL INFORMATION: Acute kidney insufficiency. Rule out obstruction. COMPARISON: Previous CT of the abdomen and pelvis 05/17/2022 TECHNIQUE: Multidetector volumetric imaging was performed from the superior aspect of the liver through the pubic symphysis. Sagittal and coronal reformatted images were obtained on the technologist's workstation. This CT examination was performed using dose optimization techniques as appropriate, variously including the following: *Automated exposure control *Adjustment of mA and/or kV according to patient size (this includes techniques or standardized protocols for targeted exams where dose is matched to indication/reason for exam; i.e. extremities or head) *Use of iterative reconstruction technique DLP: 1986 mGy-cm FINDINGS: LUNG BASES: There are bilateral pleural effusions, left greater than right. There is compressive atelectasis of the left lower lobe. LIVER, GALLBLADDER, AND BILIARY TREE: The liver is appears cirrhotic. No focal liver lesion is seen. There is no biliary duct dilatation. The gallbladder is not well visualized. PANCREAS: Unremarkable. SPLEEN: The spleen is slightly enlarged measuring 16.5 cm in length. ADRENAL GLANDS: Unremarkable. KIDNEYS AND URETERS: The kidneys are normal in size, shape, and attenuation. No hydronephrosis, hydroureter, or calculi seen there are large varices surrounding the left kidney and the left renal vein is enlarged suggestive of a spontaneous splenorenal shunt. BLADDER: There is a Ybarra catheter in the bladder. The bladder is empty. GASTROINTESTINAL TRACT: There is a large amount of ascites. There is a small amount of free air. This is new from 05/17/2022 exam. There is a new gastrostomy tube. Free air may be related to gastrostomy tube placement. Clinical correlation recommended. Small and large bowel is otherwise unremarkable. ABDOMINAL WALL: No significant hernia is appreciated. There is diffuse subcutaneous edema. LYMPH NODES: Normal. VASCULAR: There is severe atherosclerotic disease. There are upper abdominal varices and likely spontaneous left splenorenal shunt. PELVIC VISCERA: Unremarkable. OSSEOUS STRUCTURES: Unremarkable. CT/CT abdomen pelvis wo con IMPRESSION: Cirrhotic appearing liver and large amount of ascites. New small amount of free intraperitoneal air. There is a new gastrostomy tube. It is possible free air is related to gastrostomy tube placement. Clinical correlation recommended. Splenomegaly, varices and probable spontaneous splenorenal shunt. Unremarkable kidneys. Severe atherosclerotic disease. Bilateral pleural effusions, left greater than right and left lower lobe compressive atelectasis. Findings were communicated to Dr. Romero by Wall text by the [place] manager programming on 06/28/2022 at 4:30 PM. Fleischner guidelines were followed.
--- NOTE | ~2022-06-20 | XR_ITS ---
EXAMINATION: XR chest 1V CLINICAL INFORMATION: Hypoxia rule out aspiration. COMPARISON: Prior chest x-ray at 06/26/2022 TECHNIQUE: XR chest 1V Tubes and lines: Central line catheter projecting over the SVC. Properly positioned. Lungs and pleura: Bilateral diffuse pulmonary opacification probably pulmonary edema unchanged, left hemidiaphragm obscured probably pleural effusion. Heart and mediastinum: The mediastinum is within normal limits.. Bones/soft tissue: Skeletal structures included are normal for patient's age. XR/XR chest 1V IMPRESSION: *There has been no significant change, redemonstration of diffuse pulmonary opacification probably pulmonary edema. *Left hemidiaphragm obscured by probably underlying pleural effusion. *Right central line catheter projecting over the SVC.
--- NOTE | ~2022-06-20 | CT_ITS ---
EXAMINATION: CT ABDOMEN AND PELVIS WITHOUT CONTRAST CLINICAL INFORMATION: G-tube, question free air COMPARISON: 07/05/2022 TECHNIQUE: Multidetector volumetric imaging was performed from the superior aspect of the liver through the pubic symphysis. Sagittal and coronal reformatted images were obtained on the technologist's workstation. This CT examination was performed using dose optimization techniques as appropriate, variously including the following: *Automated exposure control *Adjustment of mA and/or kV according to patient size (this includes techniques or standardized protocols for targeted exams where dose is matched to indication/reason for exam; i.e. extremities or head) *Use of iterative reconstruction technique DLP: 943 mGy-cm FINDINGS: LUNG BASES: Small left and trace right pleural effusions. Multifocal patchy regions of consolidation at the bilateral lung bases, worsened from prior. Partial left lower lobe atelectasis. LIVER, GALLBLADDER, AND BILIARY TREE: Nodular contour of the liver consistent with cirrhosis. Assessment for focal lesions is limited without intravenous contrast. No intrahepatic biliary ductal dilatation. Gallbladder is grossly unremarkable. PANCREAS: Grossly unremarkable. SPLEEN: Redemonstrated splenomegaly. ADRENAL GLANDS: Unremarkable. KIDNEYS AND URETERS: No hydronephrosis or obstructing calculus bilaterally. BLADDER: Collapsed with Ybarra catheter in place. GASTROINTESTINAL TRACT: Percutaneous gastrostomy tube is present terminating in the stomach. The stomach is moderately distended with gas and fluid. No evidence of bowel obstruction. There is a thick-walled appearance of some small bowel loops in the left abdomen. Assessment for wall thickening in the colon is limited due to luminal collapse. Appendix appears nondilated. There is a moderate volume of ascites which appears decreased from 07/05/2022. Foci of free air are noted in the anterior abdomen, new from prior. ABDOMINAL WALL: Anasarca is noted. LYMPH NODES: No lymphadenopathy is seen, though assessment is limited in the absence of intravenous contrast. VASCULAR: Atherosclerotic calcifications are present. There is suggestion of a spontaneous splenorenal shunt in the left abdomen, suboptimally assessed without intravenous contrast. PELVIC VISCERA: Unremarkable. OSSEOUS STRUCTURES: There is facet arthropathy of the lumbar spine. CT/CT abdomen pelvis wo con IMPRESSION: 1. Percutaneous gastrostomy tube terminates in the stomach. Foci of free air are present in the anterior abdomen, new from 07/05/2022. Correlation with recent procedure history is recommended, as this air could be due to to a recent paracentesis given that the volume of ascites appears decreased since the prior exam. Alternatively, perforated viscus could also result in free air. 2. Thick-walled appearance of small bowel loops in the left abdomen, which could be reactive in the setting of ascites or can be seen with enteritis. 3. Bibasilar pulmonary patchy opacities, worsened from prior which could be due to pneumonia or aspiration. Small pleural effusions, left greater than right. 4. Nodular hepatic contour suspicious for cirrhosis. Splenomegaly.
--- NOTE | ~2022-06-20 | XR_ITS ---
EXAMINATION: XR CHEST CLINICAL INFORMATION: Shortness of breath COMPARISON: Previous chest x-ray most recent 06/12/2022 TECHNIQUE: Frontal view of the chest was obtained. FINDINGS: The cardiac silhouette is enlarged. There is bilateral diffuse airspace disease. There is a small right pleural effusion. There is no pneumothorax. Bony structures are unremarkable. XR/XR chest 1V IMPRESSION: Enlarged cardiac silhouette, bilateral airspace disease and right pleural effusion. Differential would include CHF and pneumonia.
--- NOTE | ~2022-06-20 | US_ITS ---
EXAMINATION: US GUIDED PARACENTESIS WITH IMAGING CLINICAL INFORMATION: Ascites COMPARISON: Previous CT of the abdomen and pelvis from earlier the same day. TECHNIQUE: Procedure and risks including bleeding, infection and low blood pressure were discussed with the patient's guardian by telephone and informed consent was obtained. The right lower quadrant was prepped and draped in the usual sterile fashion. The skin and soft tissues were anesthetized with 1% lidocaine plain. Using ultrasound guidance, 5-Wolof rapid centesis catheter, access to the ascitic fluid was obtained. 9.8 L of clear yellow fluid was removed. Specimen was sent for Gram stain and culture. Sedation was provided by the anesthesia department. Patient was administered intravenous albumin during the procedure as per Anesthesia. FINDINGS: There is a large amount of ascites. US/US paracentesis abd w/image IMPRESSION: Ultrasound-guided paracentesis.
--- NOTE | 2022-06-20 11:59 | ED_ITS ---
HPI - SOB/Dyspnea General Chief Complaint: Dyspnea Stated Complaint: DIFF BREATHING Time Seen by Provider: 06/20/22 11:59 Source: EMS Mode of arrival: EMS Limitations: other (history of encephalopathy) History of Present Illness HPI Narrative: patient was admitted here last week for pneumonia, now with more shortness of breath. 83% on 2L at the long-term. MD elicited complaint: shortness of breath Pertinent past history: COPD, congestive heart failure and pneumonia Onset (ago): day(s) Context: recent illness Timing: constant Severity: moderate Exacerbating factors: nothing Relieving factors: oxygen Known history of: congestive heart failure and recurrent pneumonia Related Data Home Medications Medication Instructions Recorded Confirmed benztropine 1 mg tablet 1 mg PO BID 11/18/20 06/20/22 carbidopa 25 mg-levodopa 100 mg 1 tab PO QID 11/18/20 06/20/22 tablet (Sinemet) fluphenazine decanoate 25 mg/mL 50 mg subcut Q14D 11/18/20 06/20/22 injection solution miconazole nitrate 2 % topical 1 spray topical BID PRN fungal 11/18/20 06/20/22 spray (Lotrimin AF) infection tramadol 50 mg tablet 50 mg PO BID 11/18/20 06/20/22 docusate sodium 100 mg tablet 100 mg PO BEDTIME 12/10/20 06/20/22 sennosides 8.6 mg tablet (senna) 8.6 mg PO DAILY PRN Constipation 12/10/20 06/20/22 levothyroxine 25 mcg tablet 25 mcg PO DAILY@0600 02/19/22 06/20/22 multivitamin 1 tab PO DAILY 02/19/22 06/20/22 rifaximin 550 mg tablet (Xifaxan) 1 tab PO BID 02/19/22 06/20/22 Calazime Skin Protectant 1 applic topical QSHIFT 03/20/22 06/20/22 acetaminophen 325 mg tablet 650 mg PO Q4H PRN PAIN/TEMP>100 03/20/22 06/20/22 bisacodyl 10 mg rectal suppository [address] DAILY PRN Constipation 03/20/22 06/20/22 guaifenesin 100 mg/5 mL oral liquid 200 mg PO Q4H PRN Cough 03/20/22 06/20/22 lactulose 20 gram/30 mL oral 30 ml PO DAILY 03/20/22 06/20/22 solution metoprolol tartrate 25 mg tablet 25 mg PO BID 03/20/22 06/20/22 gabapentin 300 mg capsule 300 mg PO TID 05/17/22 06/20/22 insulin glargine 100 unit/mL (3 20 unit subcut BID 05/17/22 06/20/22 mL) subcutaneous pen (Lantus Solostar U-100 Insulin) insulin lispro 100 unit/mL See Protocol subcut QIDACHS 05/17/22 06/20/22 subcutaneous pen (Humalog KwikPen (U-100) Insulin) amoxicillin 200 mg-potassium 21.9 ml PO BID 06/20/22 06/20/22 clavulanate 28.5 mg/5 mL oral suspension furosemide 20 mg tablet 20 mg PO DAILY 06/20/22 06/20/22 Previous Rx's Medication Instructions Recorded Omeprazole Oral Susp [PriLOSEC 40 mg G-tube DAILY@0630 ##0 06/16/22 Oral Susp] amlodipine 10 mg tablet 10 mg G-tube DAILY #0 tabs 06/16/22 Allergies Allergy/AdvReac Type Severity Reaction Status Date / Time pollen extracts Allergy Unknown Verified 03/20/22 13:42 ragweed pollen Allergy Unknown Verified 03/20/22 13:42 Review of Systems Review of Systems: Yes Unobtainable due to mental status PMFSH Past Medical History Medical History Abnormal findings on diagnostic imaging of liver and biliary tract Acute kidney failure, unspecified Acute respiratory failure with hypoxia Alcohol abuse, uncomplicated Alcoholic cirrhosis of liver with ascites Allergic rhinitis due to pollen Anemia Ataxia Cannabis use, unspecified, uncomplicated Chronic kidney disease, stage 3 unspecified Chronic renal failure CKD (chronic kidney disease) stage 3, GFR 30-59 ml/min Cocaine abuse, uncomplicated Dementia Dementia in other diseases classified elsewhere with behavioral disturbance Diabetes Disorder of urea cycle metabolism, unspecified Drug abuse, cocaine type Dysphagia, oral phase Dysphagia, oropharyngeal phase Essential (primary) hypertension Essential tremor ETOH abuse Hepatic failure, unspecified without coma Hepatomegaly, not elsewhere classified Hereditary and idiopathic neuropathy, unspecified Hereditary ataxia, unspecified Hyperosmolality and hypernatremia Intracranial hemorrhage, subdural Mild cognitive impairment, so stated Muscle weakness (generalized) Myopia, bilateral Orthostatic hypotension Osteophyte, unspecified joint Other chronic allergic conjunctivitis Other lack of coordination Other pancytopenia Other skin changes Other specified eating disorder Other speech disturbances Pain in unspecified shoulder Parkinson disease Pneumonitis due to inhalation of food and vomit Repeated falls Schizophrenia Sepsis, unspecified organism Subdural hematoma Tinea pedis Toxic metabolic encephalopathy Traumatic subdural hemorrhage without loss of consciousness, subsequent encounter Type 2 diabetes mellitus with diabetic polyneuropathy Unspecified dementia with behavioral disturbance Unsteadiness on feet Family History Family History Other Hypertension Social History Social History Household Members: None Household Members Other:: Other residents Housing: Apartment Housing Other:: [facility] Do you presently have visiting nurse or other home services: No Unable to assess alcohol history related to: Unknown Alcohol intake: former Patient Tobacco Use Status: Former Tobacco user Cigarettes Per Day: 1 Second Hand Smoke Exposure: No Advance Directives: No Advance Directives Information Provided: Yes service: No ([employer]) Current occupational status: disabled Physical Exam Vital Signs: Vital Signs: Last Vital Signs Temp 98.9 F 06/20/22 18:48 Pulse 86 06/20/22 19:44 Resp 16 06/20/22 19:44 BP 166/60 H 06/20/22 18:48 Pulse Ox 94 06/20/22 18:48 O2 Del Method 06/20/22 18:48 O2 Flow Rate 4 06/20/22 18:48 Oxygen Flow Rate 6 06/20/22 11:59 BMI result Body Mass Index 29.6 Course Reevaluation(s) Reevaluation #1: Xray looks more like pneumonia than chf, will add BNP and admit to the hospital Time: 15:24 Reevaluation #2: patient had aspiration pneumonia that was treated with vancomycin and zosyn will restart vanc and zosyn Time: 15:47 MDM - SOB/Dyspnea Lab Data Result diagrams: 06/20/22 14:34 06/20/22 14:34 Labs: Lab Results 06/20/22 06/20/22 06/20/22 Range/Units 12:33 14:33 14:34 WBC 5.7 (4.8-10.8) X10*3/uL RBC 2.18 L (4.60-5.80) X10*6/uL Hgb 7.1 L (14.0-18.0) g/dl Hct 22.6 L (42.0-52.0) % MCV 103.7 H D (80.0-98.0) fL MCH 32.6 (27.0-33.0) pg MCHC 31.4 (31.0-36.0) g/dl RDW 20.8 H (11.0-16.0) % Plt Count 69 L D (160-400) X10*3/uL MPV 10.8 (9.4-12.4) fL Immature Gran % (Auto) 0.5 H (0.0-0.4) % Neut % (Auto) 78.4 H (45-73) % Lymph % (Auto) 10.8 L (20-40) % [place] % (Auto) 9.4 (2-11) % Eos % (Auto) 0.7 (0-4) % Baso % (Auto) 0.2 (0-2) % Lymph # (Auto) 0.6 L (1.2-4.9) X10*3/uL [place] # (Auto) 0.5 (0.1-1.2) X10*3/uL Eos # (Auto) 0.0 (0.0-0.4) X10*3/uL Baso # (Auto) 0.0 (0.0-0.2) X10*3/uL Abs Immat Gran (auto) 0.03 (0.00-0.03) X10*3/uL Absolute Neuts (auto) 4.4 (2.0-8.3) x10*3/uL Absolute Nucleated RBC 0.000 (0.0-0.012) X10*3/uL Nucleated RBC % (auto) 0.0 (0.0-0.2) /100WBC Sodium (135-145) mmol/L Potassium (3.3-5.1) mmol/L Chloride (96-108) mmol/L Carbon Dioxide (22-29) mmol/L Anion Gap (12-20) BUN (9-16) mg/dL Creatinine (0.5-1.4) mg/dL Estim Creat Clear Calc Estimated GFR POC Glucose 137 H (60-115) mg/dL Random Glucose (60-115) mg/dL Lactic Acid 0.8 (0.5-2.0) mmol/L Calcium (8.4-10.2) mg/dL Troponin I High Sens (<3.5-35.0) ng/L B-Natriuretic Peptide (<100) pg/mL Influenza Type A (PCR) (Negative) Influenza Type B (PCR) (Negative) RSV RNA Qual (PCR) (Negative) SARS-CoV-2 RNA (RT-PCR) (Negative) 06/20/22 06/20/22 06/20/22 Range/Units 14:34 14:34 15:00 WBC (4.8-10.8) X10*3/uL RBC (4.60-5.80) X10*6/uL Hgb (14.0-18.0) g/dl Hct (42.0-52.0) % MCV (80.0-98.0) fL MCH (27.0-33.0) pg MCHC (31.0-36.0) g/dl RDW (11.0-16.0) % Plt Count (160-400) X10*3/uL MPV (9.4-12.4) fL Immature Gran % (Auto) (0.0-0.4) % Neut % (Auto) (45-73) % Lymph % (Auto) (20-40) % [place] % (Auto) (2-11) % Eos % (Auto) (0-4) % Baso % (Auto) (0-2) % Lymph # (Auto) (1.2-4.9) X10*3/uL [place] # (Auto) (0.1-1.2) X10*3/uL Eos # (Auto) (0.0-0.4) X10*3/uL Baso # (Auto) (0.0-0.2) X10*3/uL Abs Immat Gran (auto) (0.00-0.03) X10*3/uL Absolute Neuts (auto) (2.0-8.3) x10*3/uL Absolute Nucleated RBC (0.0-0.012) X10*3/uL Nucleated RBC % (auto) (0.0-0.2) /100WBC Sodium 144 (135-145) mmol/L Potassium 6.1 H* (3.3-5.1) mmol/L Chloride 114 H (96-108) mmol/L Carbon Dioxide 21 L (22-29) mmol/L Anion Gap 15 (12-20) BUN 53 H (9-16) mg/dL Creatinine 1.79 H (0.5-1.4) mg/dL Estim Creat Clear Calc 51.5 Estimated GFR 39 POC Glucose (60-115) mg/dL Random Glucose 129 H (60-115) mg/dL Lactic Acid (0.5-2.0) mmol/L Calcium 7.9 L (8.4-10.2) mg/dL Troponin I High Sens 46.5 H (<3.5-35.0) ng/L B-Natriuretic Peptide 3097 H (<100) pg/mL Influenza Type A (PCR) NEGATIVE (Negative) Influenza Type B (PCR) NEGATIVE (Negative) RSV RNA Qual (PCR) NEGATIVE (Negative) SARS-CoV-2 RNA (RT-PCR) NEGATIVE (Negative) Imaging Data Chest x-ray: Radiologist's impression: IMPRESSION: Enlarged cardiac silhouette, bilateral airspace disease and right pleural effusion. Differential would include CHF and pneumonia. ? ECG Data Attestation: I personally reviewed and interpreted this ECG as follows: Interpretation: sinus 80, peaked t only in V3, no real evidence of hyperkalemia Discharge Plan Discharge Clinical Impression: Pneumonia Patient Disposition: Admitted As Inpatient
--- NOTE | 2022-06-20 12:04 | ECG_ITS ---
Test Reason : DYSPNEA Blood Pressure : / mmHG Vent. Rate : 078 BPM Atrial Rate : 078 BPM P-R Int : 158 ms QRS Dur : 110 ms QT Int : 380 ms P-R-T Axes : 001 -57 052 degrees QTc Int : 433 ms Normal sinus rhythm Left anterior fascicular block Abnormal ECG When compared with ECG of 13-JUN-2022 05:55, ST no longer depressed in Inferior leads Referred By: Mark Valdes Electronically Signed By:JEMIMA IRENE
[2022-06-20] MEDS: Albuterol/Iprat 2.5/0.5MG 3 ML AMPUL.NEB INHALE ×2 (13:03→19:43)
[2022-06-20] MEDS: 0.9 % Sodium Chloride 1,000 ML 999 ML IVCONT ×2 (13:27→14:31)
[2022-06-20] MEDS: Haloperidol Lactate 5 MG/ML VIAL 2.5 MG IVPUSH (13:28)
[2022-06-20 14:42] LABS: MANUAL DIFF FLAG NO
[2022-06-20 14:45] LABS: Basophils Percent Auto 0.2 % (0-2); Eosinophils Percent Auto 0.7 % (0-4); Hematocrit 22.6 % (42.0-52.0); Hemoglobin 7.1 g/dl (14.0-18.0); Imm Gran Abs Auto 0.03 X10*3/uL (0.00-0.03); Imm Gran Pct Auto 0.5 % (0.0-0.4); Lymphocytes Absolute Auto 0.6 X10*3/uL (1.2-4.9); Lymphocytes Percent Auto 10.8 % (20-40); Mean Corpuscular HGB Conc 31.4 g/dl (31.0-36.0); Mean Corpuscular Hemoglobin 32.6 pg (27.0-33.0); Mean Corpuscular Volume 103.7 fL (80.0-98.0); Mean Platelet Volume 10.8 fL (9.4-12.4); Monocytes Absolute Auto 0.5 X10*3/uL (0.1-1.2); Monocytes Percent Auto 9.4 % (2-11); Neutrophils Absolute Auto 4.4 x10*3/uL (2.0-8.3); Neutrophils Percent Auto 78.4 % (45-73); Red Blood Count 2.18 X10*6/uL (4.60-5.80); Red Cell Distribution Width 20.8 % (11.0-16.0); White Blood Count 5.7 X10*3/uL (4.8-10.8)
[2022-06-20 14:59] LABS: Platelet Count 69 X10*3/uL (160-400)
[2022-06-20 15:05] LABS: Lactic Acid 0.8 mmol/L (0.5-2.0)
[2022-06-20 15:12] LABS: Troponin-I High Sensitivity 46.5 ng/L (<3.5-35.0)
[2022-06-20 15:20] LABS: Anion Gap 15 (12-20); Blood Urea Nitrogen 53 mg/dL (9-16); Calcium 7.9 mg/dL (8.4-10.2); Carbon Dioxide 21 mmol/L (22-29); Chloride 114 mmol/L (96-108); Creatinine Clr Calc Pharmacy 51.5; Estimated Glomerular Filt Rate 39; Glucose Random 129 mg/dL (60-115); Potassium 6.1 mmol/L (3.3-5.1); Sodium 144 mmol/L (135-145)
[2022-06-20 15:47] LABS: Influenza A PCR NEGATIVE (Negative); Influenza B PCR NEGATIVE (Negative); Resp Syncy Virus RNA Qual PCR NEGATIVE (Negative); SARS COV2 PCR INHOUSE NEGATIVE (Negative)
[2022-06-20 16:03] LABS: B Type Natriuretic Peptide 3097 pg/mL (<100)
--- NOTE | 2022-06-20 16:40 | PC.NURSE ---
PATIENT WAS INC OF URINE ,CARE GIVEN BEDDING CHANGE .
[2022-06-20 16:46] LABS: Glucose, Whole Blood 137 mg/dL (60-115)
[2022-06-20] MEDS: Furosemide 20 MG/2 ML VIAL IVPUSH (17:09)
[2022-06-20] MEDS: Sodium Zirconium Cyclosilicate 10 GM POWD.PACK PO (17:11)
[2022-06-20] MEDS: Piperacillin Sodium/Tazobactam 3.375 GM in 0.9 % Sodium Chloride 50 ML IV ×2 (17:17→21:55)
[2022-06-20] MEDS: vancomycin HCL 1,500 MG in 0.9 % Sodium Chloride 500 ML 333.33 MG IV (17:26)
--- NOTE | 2022-06-20 17:50 | PM.IMHP ---
History of Present Illness Date of Service: 06/20/22 Attending physician on admission: Mayuri Flores Chief Complaint: Shortness of breath 61-year-old gentleman recently discharged from [facility] to [facility] after a prolonged stay patient was admitted for anasarca due to acute on chronic diastolic heart failure, and cirrhosis complicated by toxic metabolic encephalopathy, he ended up vomiting and aspirating resulting in cardiac arrest with PEA, ROSC was achieved, patient had prolonged course in the ICU subsequently he was extubated had dysphagia and currently on G-tube feedings, patient finished a recent course of antibiotic for a bout of aspiration pneumonia, patient was also noted to have ERNST on chronic kidney disease and hypernatremia treated with IV fluids, renal function and sodium was improved prior to discharge, patient was sent back to [facility] today from nursing facility since he was noted to be in acute respiratory distress with labored breathing and hypoxia with finger oximetry 80-83% on 2 L , he was placed on 6 L by EMS with finger oximetry 98%, patient is unable to provide history with history of underlying Parkinson's disease, schizophrenia as per ER staff patient initially had bilateral expiratory wheeze he was treated with updraft treatment, 1 dose of IV Lasix,, IV antibiotics vancomycin and Zosyn patient's symptoms improved after updraft treatment oxygenation improved as well currently on 3 L of oxygen with finger oximetry 93%, his labs revealed a potassium of 6.1, creatinine 1.79 close to his baseline, troponin 46.5 improved from his recent troponin level, BNP is elevated at 3097 with chronically elevated BNP likely due to chronic kidney disease Chest x-ray showed bilateral airspace disease and right pleural effusion differential would include CHF and pneumonia, similar to recent chest x-ray of 06/12, patient on admission was noted to have a temp of 100.8 degrees, Blood pressure 172/92 respiratory rate of 15, patient is now being admitted to [facility] with a diagnosis of acute on chronic hypoxia, question related to recurrent aspiration pneumonia patient appears euvolemic at present. Review of Systems Review of Systems: Yes Unobtainable due to mental status [facility] Medical History Abnormal findings on diagnostic imaging of liver and biliary tract Acute kidney failure, unspecified Acute respiratory failure with hypoxia Alcohol abuse, uncomplicated Alcoholic cirrhosis of liver with ascites Allergic rhinitis due to pollen Anemia Ataxia Cannabis use, unspecified, uncomplicated Chronic kidney disease, stage 3 unspecified Chronic renal failure CKD (chronic kidney disease) stage 3, GFR 30-59 ml/min Cocaine abuse, uncomplicated Dementia Dementia in other diseases classified elsewhere with behavioral disturbance Diabetes Disorder of urea cycle metabolism, unspecified Drug abuse, cocaine type Dysphagia, oral phase Dysphagia, oropharyngeal phase Essential (primary) hypertension Essential tremor ETOH abuse Hepatic failure, unspecified without coma Hepatomegaly, not elsewhere classified Hereditary and idiopathic neuropathy, unspecified Hereditary ataxia, unspecified Hyperosmolality and hypernatremia Intracranial hemorrhage, subdural Mild cognitive impairment, so stated Muscle weakness (generalized) Myopia, bilateral Orthostatic hypotension Osteophyte, unspecified joint Other chronic allergic conjunctivitis Other lack of coordination Other pancytopenia Other skin changes Other specified eating disorder Other speech disturbances Pain in unspecified shoulder Parkinson disease Pneumonitis due to inhalation of food and vomit Repeated falls Schizophrenia Sepsis, unspecified organism Subdural hematoma Tinea pedis Toxic metabolic encephalopathy Traumatic subdural hemorrhage without loss of consciousness, subsequent encounter Type 2 diabetes mellitus with diabetic polyneuropathy Unspecified dementia with behavioral disturbance Unsteadiness on feet Family History Other Hypertension Pertinent family history: Unable to obtain due to mental status/schizophrenia Social History Household Members: None Household Members Other:: Other residents Housing: Apartment Housing Other:: [facility] Do you presently have visiting nurse or other home services: No Unable to assess alcohol history related to: Unknown Alcohol intake: former Patient Tobacco Use Status: Former Tobacco user Cigarettes Per Day: 1 Second Hand Smoke Exposure: No Advance Directives: No Advance Directives Information Provided: Yes service: No ([employer]) Current occupational status: disabled Meds Allergies Allergy/AdvReac Type Severity Reaction Status Date / Time pollen extracts Allergy Unknown Verified 03/20/22 13:42 ragweed pollen Allergy Unknown Verified 03/20/22 13:42 Active Medications: Current Medications Pharmacy Consult (Consult Rx Vancomycin Dosing) 1 each MISCELLANE DAILY PRN PRN Reason: Consult order Home Medications Medication Instructions Recorded Confirmed Last Taken Type benztropine 1 mg tablet 1 mg PO BID 11/18/20 06/20/22 Unknown History carbidopa 25 mg-levodopa 100 mg 1 tab PO QID 11/18/20 06/20/22 Unknown History tablet (Sinemet) fluphenazine decanoate 25 mg/mL 50 mg subcut Q14D 11/18/20 06/20/22 03/16/22 History injection solution miconazole nitrate 2 % topical 1 spray topical BID PRN fungal 11/18/20 06/20/22 Unknown History spray (Lotrimin AF) infection tramadol 50 mg tablet 50 mg PO BID 11/18/20 06/20/22 Unknown History docusate sodium 100 mg tablet 100 mg PO BEDTIME 12/10/20 06/20/22 Unknown History sennosides 8.6 mg tablet (senna) 8.6 mg PO DAILY PRN Constipation 12/10/20 06/20/22 Unknown History levothyroxine 25 mcg tablet 25 mcg PO DAILY@0600 02/19/22 06/20/22 Unknown History multivitamin 1 tab PO DAILY 02/19/22 06/20/22 Unknown History rifaximin 550 mg tablet (Xifaxan) 1 tab PO BID 02/19/22 06/20/22 Unknown History Calazime Skin Protectant 1 applic topical QSHIFT 03/20/22 06/20/22 Unknown History acetaminophen 325 mg tablet 650 mg PO Q4H PRN PAIN/TEMP>100 03/20/22 06/20/22 Unknown History bisacodyl 10 mg rectal suppository 10 mg ID DAILY PRN Constipation 03/20/22 06/20/22 Unknown History guaifenesin 100 mg/5 mL oral liquid 200 mg PO Q4H PRN Cough 03/20/22 06/20/22 Unknown History lactulose 20 gram/30 mL oral 30 ml PO DAILY 03/20/22 06/20/22 Unknown History solution metoprolol tartrate 25 mg tablet 25 mg PO BID 03/20/22 06/20/22 Unknown History gabapentin 300 mg capsule 300 mg PO TID 05/17/22 06/20/22 Unknown History insulin glargine 100 unit/mL (3 20 unit subcut BID 05/17/22 06/20/22 Unknown History mL) subcutaneous pen (Lantus Solostar U-100 Insulin) insulin lispro 100 unit/mL See Protocol subcut QIDACHS 05/17/22 06/20/22 Unknown History subcutaneous pen (Humalog KwikPen (U-100) Insulin) amoxicillin 200 mg-potassium 21.9 ml PO BID 06/20/22 06/20/22 Unknown History clavulanate 28.5 mg/5 mL oral suspension furosemide 20 mg tablet 20 mg PO DAILY 06/20/22 06/20/22 Unknown History Physical Exam Vital Signs and Narrative: Vital Signs: Last Vital Signs Temp 99.1 F 06/20/22 16:39 Pulse 87 06/20/22 16:39 Resp 16 06/20/22 16:39 BP 161/80 H 06/20/22 16:39 Pulse Ox 98 06/20/22 16:39 O2 Del Method 06/20/22 16:39 O2 Flow Rate 6 06/20/22 16:39 Oxygen Flow Rate 6 06/20/22 11:59 BMI result Body Mass Index 29.6 Const: Other: General: Awake, alert, no distress,?talking but not making sense Neck no JVD Resp:? Bilateral few expiratory wheeze, no crackles, no accessory muscle use CVS: S1,S2,RRR GI: Abdomen nontender, bruising, +BS, no distention, no guarding no rigidity Skin: No rash, stage II decubiti ulcer on coccyx, medial right buttock and left buttock Neuro:? Moving all 4 extremities Psych: flat Results Labs CBC and Chem 7: 06/20/22 14:34 06/20/22 14:34 Labs: Laboratory Results - last 24 hr 06/20/22 06/20/22 06/20/22 12:33 14:33 14:34 MCV 103.7 H D MCH 32.6 MCHC 31.4 RDW 20.8 H Plt Count 69 L D MPV 10.8 Immature Gran % (Auto) 0.5 H Neut % (Auto) 78.4 H Lymph % (Auto) 10.8 L [place] % (Auto) 9.4 Eos % (Auto) 0.7 Baso % (Auto) 0.2 Lymph # (Auto) 0.6 L [place] # (Auto) 0.5 Eos # (Auto) 0.0 Baso # (Auto) 0.0 Abs Immat Gran (auto) 0.03 Absolute Neuts (auto) 4.4 Absolute Nucleated RBC 0.000 Nucleated RBC % (auto) 0.0 Anion Gap Estim Creat Clear Calc Estimated GFR POC Glucose 137 H Random Glucose Lactic Acid 0.8 Calcium B-Natriuretic Peptide Influenza Type A (PCR) Influenza Type B (PCR) RSV RNA Qual (PCR) SARS-CoV-2 RNA (RT-PCR) 06/20/22 06/20/22 06/20/22 14:34 14:34 15:00 MCV MCH MCHC RDW Plt Count MPV Immature Gran % (Auto) Neut % (Auto) Lymph % (Auto) [place] % (Auto) Eos % (Auto) Baso % (Auto) Lymph # (Auto) [place] # (Auto) Eos # (Auto) Baso # (Auto) Abs Immat Gran (auto) Absolute Neuts (auto) Absolute Nucleated RBC Nucleated RBC % (auto) Anion Gap 15 Estim Creat Clear Calc 51.5 Estimated GFR 39 POC Glucose Random Glucose 129 H Lactic Acid Calcium 7.9 L B-Natriuretic Peptide 3097 H Influenza Type A (PCR) NEGATIVE Influenza Type B (PCR) NEGATIVE RSV RNA Qual (PCR) NEGATIVE SARS-CoV-2 RNA (RT-PCR) NEGATIVE Imaging Radiologist's Impressions: Impressions Chest X-Ray 06/20/22 13:02 IMPRESSION: Enlarged cardiac silhouette, bilateral airspace disease and right pleural effusion. Differential would include CHF and pneumonia. Assessment and Plan (1) Dysphagia, oropharyngeal phase: Status: Acute (2) CKD (chronic kidney disease) stage 3, GFR 30-59 ml/min: Status: Acute (3) Acute respiratory failure with hypoxia: Status: Acute Plan 61-year-old gentleman resident of [facility] with past medical history of chronic kidney disease stage 3, hypertension, schizophrenia, diastolic heart failure with frequent hospitalization was recently discharged from [facility] on 06/16 after being treated for CHF exacerbation encephalopathy, with increasing confusion agitation, followed by an episode of vomiting and aspiration resulting in PE a arrest requiring intubation and admission to ICU, Subsequently required PEG tube placement due to dysphagia, return back to [facility] due to respiratory distress with significant hypoxia of 82-83% on 2 L Acute hypoxic respiratory failure likely secondary to possible aspiration pneumonia/diastolic CHF exacerbation Patient clinically does not appear fluid overloaded, has received 1 dose of IV Lasix, will resume home dose of Lasix Symptoms improve after updraft treatment Patient with low-grade fever normal WBC count no evidence of sepsis started on IV Zosyn and vanc in ed, will hold vancomycin continue IV Zosyn Follow clinical course and blood cultures if patient remains hemodynamically stable will transition to by mouth antibiotic, Wean oxygen as tolerated Chronic kidney disease stage 3 Creatinine at baseline Chronic Anemia with elevated MCV, recent iron studies within normal range will obtain B12 folate, repeat CBC transfuse if noted to have further drop Parkinson's disease continue Sinemet Hyperkalemia Receive Lokelma in in the emergency follow labs Severe oropharyngeal dysphagia continue G-tube feeding promote will obtain agriculture teacher consult, patient is drinking water in ED with no difficulty, will consult speech therapy Diabetes mellitus type 2 follow blood sugars , placed on insulin sliding scale since blood sugars low will hold off on Lantus follow blood sugars Cirrhosis continue lactulose follow LFTs and ammonia level at a.m. History of schizophrenia continue home meds Code status full code as per molst form DVT prophylaxis with subcu heparin In my clinical judgment patient will need two night inpatient hospital stay due to acute hypoxemic respiratory failure requiring IV antibiotic and IV diuretic treatment cannot be given at rehab setting. Quality Stroke Does the patient have a stroke diagnosis?: No VTE Prior VTE?: No VTE Risk Level:: Medical - moderate - high VTE Device Contraindication: Treatment Not Indicated VTE Drug Contraindication: N/A - Med Ordered
[2022-06-20 18:49] LABS: Glucose, Whole Blood 83 mg/dL (60-115)
[2022-06-20 19:16] LABS: CDiff Gene PCR NEGATIVE (Negative)
--- NOTE | 2022-06-20 19:38 | PC.NURSE ---
This RN contacting the VMT room as pt found supine in bed with legs through his side rails, off of his O2, satting @ 77%. VMT tech advised to alarm if pt trying to get OOB or taking O2 off. Pt transferred into a hospital bed with alarm in place.
--- NOTE | 2022-06-20 21:03 | PC.NURSE ---
mouth care done on patient .
--- NOTE | 2022-06-20 21:05 | PC.NURSE ---
pt continues to remove nasal cannula, O2 dropping into high 70s low 80s, pt requiring constant redirection despite bed alarm/camera. pt constantly trying to get out of bed. per [facility], pt normally a 1:1. provider notified.
[2022-06-20 21:08] LABS: Glucose, Whole Blood 73 mg/dL (60-115)
[2022-06-20] MEDS: Carbidopa/Levodopa 25/100 TABLET 1 TAB G-TUBE (21:45)
[2022-06-20] MEDS: Metoprolol Tartrate 25 MG TABLET G-TUBE (21:45)
[2022-06-20] MEDS: Benztropine Mesylate 1 MG TABLET G-TUBE (21:45)
[2022-06-20] MEDS: LORazepam 0.5 MG TABLET PO (21:46)
[2022-06-20] MEDS: Docusate Sodium 100 MG/10 ML LIQUID G-TUBE (21:46)
[2022-06-20] MEDS: traMADoL HCL 50 MG TABLET G-TUBE (21:46)
[2022-06-20] MEDS: Gabapentin 300 MG CAPSULE G-TUBE (21:47)
[2022-06-20] MEDS: Heparin Sodium,Porcine 5,000 UNIT/ML VIAL 5000 UNIT SUBCUT (21:55)
--- NOTE | 2022-06-20 22:00 | PC.NURSE ---
pt medicated per provider order, medications crushed and given via gtube. pt has bruising along lower abd and right arm, pt requiring frequent repositioning and adjusting of O2 to maintain oxygen saturation.
[2022-06-21 00:32] VITALS: BP 169/55; PULSE 67; RESP 15; TEMP 37.1; O2SAT 92
--- NOTE | 2022-06-21 01:41 | PC.NURSE ---
attempted to call in report to [facility]. RN in room w patient, will call back.
--- NOTE | 2022-06-21 01:49 | PC.NURSE ---
pt linens changed, incontinent of urine, oxymask on @ 6L, maintaining 95% O2. camera in place, sitter at bedside.
[2022-06-21] MEDS: Piperacillin Sodium/Tazobactam 3.375 GM in 0.9 % Sodium Chloride 50 ML IV ×3 (02:55→15:23)
[2022-06-21] MEDS: hydrOXYzine HCL 50 MG/ML VIAL 25 MG IM (03:16)
[2022-06-21 03:24] VITALS: BMI 29.1
[2022-06-21 03:29] VITALS: BP 168/59; PULSE 76; RESP 20; TEMP 37; O2SAT 94
[2022-06-21] MEDS: Heparin Sodium,Porcine 5,000 UNIT/ML VIAL 5000 UNIT SUBCUT ×3 (04:20→21:21)
[2022-06-21] MEDS: Levothyroxine Sodium 25 MCG TABLET G-TUBE (06:18)
[2022-06-21 06:47] LABS: Hematocrit 23.6 % (42.0-52.0); Hemoglobin 7.3 g/dl (14.0-18.0); Mean Corpuscular HGB Conc 30.9 g/dl (31.0-36.0); Mean Corpuscular Hemoglobin 32.9 pg (27.0-33.0); Mean Corpuscular Volume 106.3 fL (80.0-98.0); Mean Platelet Volume 11.2 fL (9.4-12.4); Red Blood Count 2.22 X10*6/uL (4.60-5.80); Red Cell Distribution Width 20.7 % (11.0-16.0); White Blood Count 5.1 X10*3/uL (4.8-10.8)
[2022-06-21 06:52] LABS: Platelet Count 61 X10*3/uL (160-400)
[2022-06-21 07:03] LABS: INTERNATIONAL NORM RATIO 1.3 (0.9-1.1); Prothrombin Time 15.1 SEC (10.0-13.1)
[2022-06-21 07:17] LABS: Glucose, Whole Blood 75 mg/dL (60-115)
[2022-06-21 07:41] VITALS: BP 139/65; PULSE 93; RESP 20; TEMP 36.7; O2SAT 100
[2022-06-21 07:45] LABS: Alanine Aminotransferase < 6 U/L (0-40); Albumin Level 2.9 g/dL (3.5-5.0); Alkaline Phosphatase 75 U/L (39-117); Anion Gap 16 (12-20); Aspartate Amino Transferase 28 U/L (5-37); Bilirubin Total 1.5 mg/dL (0.0-1.0); Blood Urea Nitrogen 55 mg/dL (9-16); Calcium 7.9 mg/dL (8.4-10.2); Carbon Dioxide 21 mmol/L (22-29); Chloride 114 mmol/L (96-108); Creatinine Clr Calc Pharmacy 49.4; Estimated Glomerular Filt Rate 37; Glucose Random 81 mg/dL (60-115); Potassium 6.5 mmol/L (3.3-5.1); Sodium 144 mmol/L (135-145); Total Protein 6.5 g/dL (6.5-8.0)
[2022-06-21 07:51] LABS: Ammonia 33 umol/L (13-55)
[2022-06-21 08:17] LABS: Folate 6.6 ng/mL (> or = 4.0); Vitamin B12 1072 pg/mL (200-900)
[2022-06-21] MEDS: Dextrose 50 % 25 GM/50 ML SYRINGE IVPUSH ×2 (09:34→15:22)
[2022-06-21] MEDS: Insulin Regular, Human 100 UNIT/ML 3 ML VIAL 10 UNIT IVPUSH ×2 (09:34→15:22)
[2022-06-21 10:00] LABS: Glucose, Whole Blood 76 mg/dL (60-115)
[2022-06-21 10:00] LABS: Glucose, Whole Blood 107 mg/dL (60-115)
[2022-06-21] MEDS: Lactulose 20 GM/30 ML SOLUTION G-TUBE (10:01)
[2022-06-21] MEDS: Sodium Polystyrene Sulfon/Sorb 15 GM/60 ML ORAL.SUSP 30 GM G-TUBE ×2 (10:01→15:22)
[2022-06-21] MEDS: amLODIPine Besylate 10 MG TABLET G-TUBE (10:02)
[2022-06-21] MEDS: Furosemide 20 MG TABLET G-TUBE (10:02)
[2022-06-21] MEDS: Carbidopa/Levodopa 25/100 TABLET 1 TAB G-TUBE ×3 (10:02→21:26)
[2022-06-21] MEDS: traMADoL HCL 50 MG TABLET G-TUBE ×2 (10:02→21:26)
[2022-06-21] MEDS: Metoprolol Tartrate 25 MG TABLET G-TUBE ×2 (10:02→21:22)
[2022-06-21] MEDS: Benztropine Mesylate 1 MG TABLET G-TUBE ×2 (10:02→21:26)
[2022-06-21] MEDS: rifAXIMin 550 MG TABLET G-TUBE ×2 (10:02→21:26)
[2022-06-21] MEDS: Gabapentin 300 MG CAPSULE G-TUBE ×3 (10:04→21:22)
[2022-06-21] MEDS: 0.9 % Sodium Chloride Flush 3 ML SYRINGE IVFLUSH ×2 (10:04→18:29)
[2022-06-21 10:36] LABS: Glucose, Whole Blood 124 mg/dL (60-115)
[2022-06-21] MEDS: QUEtiapine Fumarate 25 MG TABLET G-TUBE (10:54)
--- NOTE | 2022-06-21 10:54 | HO.PM.IMPN ---
Subjective Subjective Date of Service: 06/21/22 Interval History: cc: hypoxia interval history: no complaints Review of Systems Review of Systems: Yes Unobtainable due to mental condition Physical Exam Vital Signs: Vital Signs: Last Vital Signs Temp 98.1 F 06/21/22 07:41 Pulse 93 06/21/22 07:41 Resp 20 06/21/22 07:41 BP 139/65 06/21/22 07:41 Pulse Ox 100 06/21/22 07:41 O2 Del Method 06/21/22 07:41 O2 Flow Rate 6 06/21/22 07:41 Oxygen Flow Rate 6 06/20/22 11:59 BMI result Body Mass Index 29.1 General: AO X 1, no acute distress, ill appearing Resp: CTA bilateral, no accessory muscles used CVS: S1,S2,RRR GI: soft, non tender, non distended Neuro: motor grossly intact, alert Psych: flat affect, impaired insight Objective Data Active Medications Albuterol/Ipratropium (Albuterol/Iprat 2.5/0.5mg 3 Ml Ampul.Neb) 3 ml INHALE RQ6H WHILE AWAKE [facility] Last Admin: 06/21/22 07:34 Dose: Not Given Documented By: SUMMER Non-Admin Reason: pt sleeping curled up unable to do neb Albuterol/Ipratropium (Albuterol/Iprat 2.5/0.5mg 3 Ml Ampul.Neb) 3 ml INHALE RQ4H PRN PRN Reason: Shortness of Breath Amlodipine Besylate (Amlodipine Besylate 10 Mg Tablet) 10 mg G-TUBE DAILY [facility]; Protocol Last Admin: 06/21/22 10:02 Dose: 10 mg Documented By: RUBENS Benztropine Mesylate (Benztropine Mesylate 1 Mg Tablet) 1 mg G-TUBE BID [facility] Last Admin: 06/21/22 10:02 Dose: 1 mg Documented By: RUBENS Bisacodyl (Bisacodyl 10 Mg Supp.Rect) 10 mg UT DAILY PRN PRN Reason: Constipation Carbidopa/Levodopa (Carbidopa/Levodopa 25/100 Tablet) 1 tab G-TUBE QID [facility] Last Admin: 06/21/22 10:02 Dose: 1 tab Documented By: RUBENS Dextrose (Dextrose 50 % 25 Gm/50 Ml Syringe) 25 gm IVPUSH Q15M PRN; Protocol PRN Reason: per Hypoglycemia Standing Ord. Docusate Sodium (Docusate Sodium 100 Mg/10 Ml Liquid) 100 mg G-TUBE BEDTIME [facility] Last Admin: 06/20/22 21:46 Dose: 100 mg Documented By: MADDENL Fluphenazine Decanoate (Fluphenazine Decanoate 25 Mg/Ml 5 Ml Vial) 50 mg IM Q14D ANDREY Furosemide (Furosemide 20 Mg Tablet) 20 mg G-TUBE DAILY [facility]; Protocol Last Admin: 06/21/22 10:02 Dose: 20 mg Documented By: RUBENS Gabapentin (Gabapentin 300 Mg Capsule) 300 mg G-TUBE TID [facility] Last Admin: 06/21/22 10:04 Dose: 300 mg Documented By: RUBENS Glucose (Glucose Gel 15 Gm Gel..Gram.) 15 gm PO Q15M PRN; Protocol PRN Reason: per Hypoglycemia Standing Ord. Guaifenesin (Guaifenesin 100 Mg/5 Ml Liquid) 10 ml G-TUBE Q4H PRN PRN Reason: Cough Heparin Sodium (Porcine) (Heparin Sodium,Porcine 5,000 Unit/Ml Vial) 5,000 unit SUBCUT Q8H [facility] Last Admin: 06/21/22 04:20 Dose: 5,000 unit Documented By: SELENE Piperacillin Sod/Tazobactam (Sod 3.375 gm/ Sodium Chloride) 50 mls @ 100 mls/hr IV Q6H [facility] Last Admin: 06/21/22 10:04 Dose: 100 mls/hr Documented By: RUBENS Insulin Human Lispro (Insulin Lispro 100 Unit/Ml 3 Ml Vial) 0 unit SUBCUT QIDACHS [facility]; Protocol Last Admin: 06/21/22 10:05 Dose: Not Given Documented By: RUBENS Non-Admin Reason: No Insulin Coverage Lactulose (Lactulose 20 Gm/30 Ml Solution) 20 gm G-TUBE DAILY [facility] Last Admin: 06/21/22 10:01 Dose: 20 gm Documented By: RUBENS Levothyroxine Sodium (Levothyroxine Sodium 25 Mcg Tablet) 25 mcg G-TUBE DAILY@0600 [facility] Last Admin: 06/21/22 06:18 Dose: 25 mcg Documented By: SELENE Metoprolol Tartrate (Metoprolol Tartrate 25 Mg Tablet) 25 mg G-TUBE BID [facility]; Protocol Last Admin: 06/21/22 10:02 Dose: 25 mg Documented By: RUBENS Omeprazole (Omeprazole 20 Mg/10 Ml Susp.Recon) 40 mg G-TUBE DAILY@0630 [facility] Last Admin: 06/21/22 06:18 Dose: 40 mg Documented By: SELENE Pharmacy Consult (Consult Rx Vancomycin Dosing) 1 each MISCELLANE DAILY PRN PRN Reason: Consult order Rifaximin (Rifaximin 550 Mg Tablet) 550 mg G-TUBE BID [facility] Last Admin: 06/21/22 10:02 Dose: 550 mg Documented By: RUBENS Senna (Sennosides 8.6 Mg Tablet) 8.6 mg G-TUBE DAILY PRN PRN Reason: Constipation Sodium Chloride (0.9 % Sodium Chloride Flush 3 Ml Syringe) 3 ml IVFLUSH QSHIFT [facility] Last Admin: 06/21/22 10:04 Dose: 3 ml Documented By: RUBENS Tramadol HCl (Tramadol Hcl 50 Mg Tablet) 50 mg G-TUBE BID [facility] Last Admin: 06/21/22 10:02 Dose: 50 mg Documented By: RUBENS Labs CBC & Chem 7: 06/21/22 06:41 06/21/22 06:40 Labs: Laboratory Results - last 24 hr 06/20/22 06/20/22 06/20/22 12:33 14:33 14:34 MCV 103.7 H D MCH 32.6 MCHC 31.4 RDW 20.8 H Plt Count 69 L D MPV 10.8 Immature Gran % (Auto) 0.5 H Neut % (Auto) 78.4 H Lymph % (Auto) 10.8 L [place] % (Auto) 9.4 Eos % (Auto) 0.7 Baso % (Auto) 0.2 Lymph # (Auto) 0.6 L [place] # (Auto) 0.5 Eos # (Auto) 0.0 Baso # (Auto) 0.0 Abs Immat Gran (auto) 0.03 Absolute Neuts (auto) 4.4 Absolute Nucleated RBC 0.000 Nucleated RBC % (auto) 0.0 PT INR Anion Gap Estim Creat Clear Calc Estimated GFR POC Glucose 137 H Random Glucose Lactic Acid 0.8 Calcium Total Bilirubin Direct Bilirubin AST ALT Alkaline Phosphatase Ammonia B-Natriuretic Peptide Total Protein Albumin Vitamin B12 Folate C. difficile Tox B Gene Influenza Type A (PCR) Influenza Type B (PCR) RSV RNA Qual (PCR) SARS-CoV-2 RNA (RT-PCR) 06/20/22 06/20/22 06/20/22 14:34 14:34 15:00 MCV MCH MCHC RDW Plt Count MPV Immature Gran % (Auto) Neut % (Auto) Lymph % (Auto) [place] % (Auto) Eos % (Auto) Baso % (Auto) Lymph # (Auto) [place] # (Auto) Eos # (Auto) Baso # (Auto) Abs Immat Gran (auto) Absolute Neuts (auto) Absolute Nucleated RBC Nucleated RBC % (auto) PT INR Anion Gap 15 Estim Creat Clear Calc 51.5 Estimated GFR 39 POC Glucose Random Glucose 129 H Lactic Acid Calcium 7.9 L Total Bilirubin Direct Bilirubin AST ALT Alkaline Phosphatase Ammonia B-Natriuretic Peptide 3097 H Total Protein Albumin Vitamin B12 Folate C. difficile Tox B Gene Influenza Type A (PCR) NEGATIVE Influenza Type B (PCR) NEGATIVE RSV RNA Qual (PCR) NEGATIVE SARS-CoV-2 RNA (RT-PCR) NEGATIVE 06/20/22 06/20/22 06/20/22 18:11 18:41 21:01 MCV MCH MCHC RDW Plt Count MPV Immature Gran % (Auto) Neut % (Auto) Lymph % (Auto) [place] % (Auto) Eos % (Auto) Baso % (Auto) Lymph # (Auto) [place] # (Auto) Eos # (Auto) Baso # (Auto) Abs Immat Gran (auto) Absolute Neuts (auto) Absolute Nucleated RBC Nucleated RBC % (auto) PT INR Anion Gap Estim Creat Clear Calc Estimated GFR POC Glucose 83 73 Random Glucose Lactic Acid Calcium Total Bilirubin Direct Bilirubin AST ALT Alkaline Phosphatase Ammonia B-Natriuretic Peptide Total Protein Albumin Vitamin B12 Folate C. difficile Tox B Gene NEGATIVE Influenza Type A (PCR) Influenza Type B (PCR) RSV RNA Qual (PCR) SARS-CoV-2 RNA (RT-PCR) 06/21/22 06/21/22 06/21/22 06:40 06:40 06:40 MCV MCH MCHC RDW Plt Count MPV Immature Gran % (Auto) Neut % (Auto) Lymph % (Auto) [place] % (Auto) Eos % (Auto) Baso % (Auto) Lymph # (Auto) [place] # (Auto) Eos # (Auto) Baso # (Auto) Abs Immat Gran (auto) Absolute Neuts (auto) Absolute Nucleated RBC Nucleated RBC % (auto) PT 15.1 H INR 1.3 H Anion Gap 16 Estim Creat Clear Calc 49.4 Estimated GFR 37 POC Glucose Random Glucose 81 D Lactic Acid Calcium 7.9 L Total Bilirubin 1.5 H Direct Bilirubin 1.0 H AST 28 ALT < 6 Alkaline Phosphatase 75 Ammonia 33 B-Natriuretic Peptide Total Protein 6.5 Albumin 2.9 L Vitamin B12 Folate C. difficile Tox B Gene Influenza Type A (PCR) Influenza Type B (PCR) RSV RNA Qual (PCR) SARS-CoV-2 RNA (RT-PCR) 06/21/22 06/21/22 06/21/22 06:41 06:41 07:08 MCV 106.3 H MCH 32.9 MCHC 30.9 L RDW 20.7 H Plt Count 61 L MPV 11.2 Immature Gran % (Auto) Neut % (Auto) Lymph % (Auto) [place] % (Auto) Eos % (Auto) Baso % (Auto) Lymph # (Auto) [place] # (Auto) Eos # (Auto) Baso # (Auto) Abs Immat Gran (auto) Absolute Neuts (auto) Absolute Nucleated RBC 0.000 Nucleated RBC % (auto) 0.0 PT INR Anion Gap Estim Creat Clear Calc Estimated GFR POC Glucose 75 Random Glucose Lactic Acid Calcium Total Bilirubin Direct Bilirubin AST ALT Alkaline Phosphatase Ammonia B-Natriuretic Peptide Total Protein Albumin Vitamin B12 1072 H Folate 6.6 C. difficile Tox B Gene Influenza Type A (PCR) Influenza Type B (PCR) RSV RNA Qual (PCR) SARS-CoV-2 RNA (RT-PCR) 06/21/22 06/21/22 06/21/22 09:35 09:43 10:31 MCV MCH MCHC RDW Plt Count MPV Immature Gran % (Auto) Neut % (Auto) Lymph % (Auto) [place] % (Auto) Eos % (Auto) Baso % (Auto) Lymph # (Auto) [place] # (Auto) Eos # (Auto) Baso # (Auto) Abs Immat Gran (auto) Absolute Neuts (auto) Absolute Nucleated RBC Nucleated RBC % (auto) PT INR Anion Gap Estim Creat Clear Calc Estimated GFR POC Glucose 76 107 124 H Random Glucose Lactic Acid Calcium Total Bilirubin Direct Bilirubin AST ALT Alkaline Phosphatase Ammonia B-Natriuretic Peptide Total Protein Albumin Vitamin B12 Folate C. difficile Tox B Gene Influenza Type A (PCR) Influenza Type B (PCR) RSV RNA Qual (PCR) SARS-CoV-2 RNA (RT-PCR) Assessment and Plan (1) Acute respiratory failure with hypoxia: Status: Acute Plan 61-year-old gentleman resident of [facility] with past medical history of chronic kidney disease stage 3, hypertension, schizophrenia, diastolic heart failure with frequent hospitalization was recently discharged from [facility] on 06/16 after being treated for CHF exacerbation encephalopathy, with increasing confusion agitation, followed by an episode of vomiting and aspiration resulting in PE a arrest requiring intubation and admission to ICU, Subsequently required PEG tube placement due to dysphagia, return back to [facility] due to respiratory distress with significant hypoxia of 82-83% on 2 L Acute hypoxic respiratory failure likely secondary to possible aspiration pneumonia/diastolic CHF with acute exacerbation lungs sounds clear, saturating 100% on 6L IV Zosyn Follow clinical course and blood cultures if patient remains hemodynamically stable will transition to by mouth antibiotic, Wean oxygen as tolerated hyperkalemia 6.5 - kayexylate, insulin, monitor Chronic kidney disease stage 3 Creatinine at baseline Chronic Anemia with elevated MCV, recent iron studies within normal range normal B12 folate suspect related to cirrhosis/splenomegaly Parkinson's disease continue Sinemet Severe oropharyngeal dysphagia continue G-tube feeding promote will obtain rn postpartum consult, patient is drinking water in ED with no difficulty, will consult speech therapy Diabetes mellitus type 2 follow blood sugars , placed on insulin sliding scale since blood sugars low will hold off on Lantus follow blood sugars Cirrhosis continue lactulose follow LFTs and ammonia level at a.m. History of schizophrenia continue home meds Code status full code as per molst form DVT prophylaxis with subcu heparin reason for continued hospitalization:hyperkalemia severe - 6.5 Quality Stroke Does the patient have a stroke diagnosis?: No VTE Prior VTE?: No VTE Risk Level:: Medical - moderate - high VTE Device Contraindication: Treatment Not Indicated VTE Drug Contraindication: N/A - Med Ordered
[2022-06-21 11:17] LABS: Glucose, Whole Blood 76 mg/dL (60-115)
[2022-06-21 11:26] VITALS: BP 153/65; PULSE 68; RESP 20; TEMP 36.3; O2SAT 100
--- NOTE | 2022-06-21 12:43 | PC.NURSE ---
Addendum entered by Karey Pedro RN 06/21/22 12:45: 50Ml per hr. Potassium level elevated to 6.5. regular insulin 10 units IVP given with dextrose 25g and kayexalate given. Patient had a large BM. Remained on IV ABT, no adverse reaction noted. PRN seroquel given for increase anxiety with effect. 1:1 sitter at bedside for safety. repositioned as needed. Will continue to monitor and treat per plan of care. Original Note: Alert and confused. VSS, afebrile, no acute resp. distress noted. G-tube feeding started, promote running at 5o
[2022-06-21 13:31] LABS: Anion Gap 17 (12-20); Blood Urea Nitrogen 58 mg/dL (9-16); Carbon Dioxide 20 mmol/L (22-29); Chloride 115 mmol/L (96-108); Creatinine Clr Calc Pharmacy 44.6; Estimated Glomerular Filt Rate 33; Glucose Random 121 mg/dL (60-115); Potassium 6.6 mmol/L (3.3-5.1); Sodium 145 mmol/L (135-145)
[2022-06-21 13:34] VITALS: BMI 29.1
--- NOTE | 2022-06-21 13:39 | MHC.CLN ---
PT WITH INCREASED NUTRITION RISK R/T PRESSURE INJURIES PT IS CURRENTLY ON TF PROMOTE AT 50ML/HR WITH 120ML FREE WATER FLUSHES CURRENT TF NOT MEETING NUTRITION NEEDS RECOMMEND CHANGING TO NEPRO AT MAX GOAL RATE 45ML/HR WITH 30ML PROSOURCE Q DAY AND 300ML FREE WATER FLUSHES Q 6 HRS TO PROVIDE 2004KCALS (23KCALS/KG), 102G PROTEIN (1.17G/KG), 1985ML TOTAL WATER FROM FORMULA AND FLUSHES (23ML/KG) MONITOR TOLERANCE, RESIDUALS AND LYTES SEE ALSO FULL CLINICAL NUTRITION ASSESSMENT
[2022-06-21 13:55] LABS: Lactate Dehydrogenase 376 U/L (118-273)
--- NOTE | 2022-06-21 13:56 | MHC.SLORD ---
Speech Language Pathology Order Status: Order received for bedside dysphagia evaluation. PRODUCTION ARTIST attempted to see pt this afternoon. Pt was laying on his side, asleep. Pt did not rouse to verbal stimuli and light touch. Sitter reported that pt had been recently medicated. Not appropriate at this time for bedside PO trials d/t lethargic state. Given pt's history of dysphagia and aspiration, pt may benefit from MBSS once he is awake and alert enough to participate. Sent message to , RN, RD. PRODUCTION ARTIST will continue to follow.
--- NOTE | 2022-06-21 14:03 | MHC.CM.PN ---
pt from [facility] in [place] where he will return when dcd
[2022-06-21 15:03] VITALS: BP 164/85; PULSE 69; RESP 18; TEMP 36.4; O2SAT 96
[2022-06-21] MEDS: Furosemide 100 MG/10 ML VIAL 60 MG IVPUSH (15:22)
[2022-06-21 16:31] LABS: Glucose, Whole Blood 123 mg/dL (60-115)
[2022-06-21] MEDS: QUEtiapine Fumarate 25 MG TABLET PO (18:33)
[2022-06-21 19:06] VITALS: BP 153/68; PULSE 77; RESP 18; TEMP 36.8; O2SAT 90
[2022-06-21 19:55] LABS: Glucose, Whole Blood 134 mg/dL (60-115)
[2022-06-21 20:25] LABS: Anion Gap 16 (12-20); Blood Urea Nitrogen 57 mg/dL (9-16); Calcium 7.8 mg/dL (8.4-10.2); Carbon Dioxide 20 mmol/L (22-29); Chloride 116 mmol/L (96-108); Creatinine Clr Calc Pharmacy 43.1; Estimated Glomerular Filt Rate 32; Glucose Random 152 mg/dL (60-115); Potassium 5.7 mmol/L (3.3-5.1); Sodium 146 mmol/L (135-145)
[2022-06-21] MEDS: LORazepam 0.5 MG TABLET PO (21:26)
[2022-06-22] VITALS (10 sets, daily range): BP systolic 123–182; BP diastolic 52–90; PULSE 66–84; RESP 18–22; TEMP 36.6–36.9; O2SAT 18–98
--- NOTE | 2022-06-22 02:20 | MHC.PIE ---
P.RESTLESSNESS I.PT RESTLESS,RESISTIVE TO CARE,PULLING OFF OXIMASK,CONFUSED.UNABLE TO RESTART IV.SWINGING LEGS OVER SIDERAILS. NOTIFIED.ORDER FOR ATARAX 50 MG IM GIVEN,MED GIVEN WITH LITTLE EFFECT.REMAINS RESTLESS. NOTIFIED AGAIN,?ABG'S.ORDER GIVEN FOR HALDOL 5MG IM.MED GIVEN.SATS 93-94% ON OXIMASK 6L.SITTER AT BEDSIDE.RESPIRATORY NOTIFIED FOR UPDRAFT.UPDRAFT GIVEN AND O2 CHANGED TO SOTELO CANNULA 10L.PT CALMER AFTER.RESTING.SITTER AT BEDSIDE. E.CONT TO MONITOR,NEXT SHIFT UPDATED.
[2022-06-22] MEDS: hydrOXYzine HCL 50 MG/ML VIAL IM (02:56)
[2022-06-22] MEDS: Haloperidol Lactate 5 MG/ML VIAL IM (03:30)
[2022-06-22] MEDS: Heparin Sodium,Porcine 5,000 UNIT/ML VIAL 5000 UNIT SUBCUT ×2 (03:34→13:17)
[2022-06-22] MEDS: Albuterol/Iprat 2.5/0.5MG 3 ML AMPUL.NEB INHALE ×3 (05:10→19:56)
--- NOTE | 2022-06-22 05:51 | PM.EVENT ---
Event Note Date of Service: 06/22/22 Event Note: pt was extremely restless, taking off oxygen mask, desating, not directable. agitated, getting out of bed. was given seroquel before i came in the [place] with no result. given po ativan, not effective. given haldol with improvement.
[2022-06-22] MEDS: Levothyroxine Sodium 25 MCG TABLET G-TUBE (06:13)
[2022-06-22 06:15] LABS: Hematocrit 25.1 % (42.0-52.0); Hemoglobin 7.5 g/dl (14.0-18.0); Mean Corpuscular HGB Conc 29.9 g/dl (31.0-36.0); Mean Corpuscular Hemoglobin 32.6 pg (27.0-33.0); Mean Corpuscular Volume 109.1 fL (80.0-98.0); Mean Platelet Volume 11.5 fL (9.4-12.4); Red Cell Distribution Width 20.5 % (11.0-16.0); White Blood Count 5.2 X10*3/uL (4.8-10.8)
[2022-06-22 06:18] LABS: Platelet Count 57 X10*3/uL (160-400)
[2022-06-22 06:53] LABS: Anion Gap 19 (12-20); Blood Urea Nitrogen 62 mg/dL (9-16); Calcium 8.2 mg/dL (8.4-10.2); Carbon Dioxide 18 mmol/L (22-29); Chloride 115 mmol/L (96-108); Creatinine Clr Calc Pharmacy 39.9; Estimated Glomerular Filt Rate 29; Glucose Fasting 200 mg/dL (60-99); Potassium 5.4 mmol/L (3.3-5.1); Sodium 147 mmol/L (135-145)
[2022-06-22 07:22] LABS: Glucose, Whole Blood 171 mg/dL (60-115)
[2022-06-22] MEDS: rifAXIMin 550 MG TABLET G-TUBE ×2 (08:27→20:40)
[2022-06-22] MEDS: Carbidopa/Levodopa 25/100 TABLET 1 TAB G-TUBE ×4 (08:27→20:42)
[2022-06-22] MEDS: amLODIPine Besylate 10 MG TABLET G-TUBE (08:27)
[2022-06-22] MEDS: traMADoL HCL 50 MG TABLET G-TUBE ×2 (08:28→20:42)
[2022-06-22] MEDS: Gabapentin 300 MG CAPSULE G-TUBE ×3 (08:28→21:43)
[2022-06-22] MEDS: 0.9 % Sodium Chloride Flush 3 ML SYRINGE IVFLUSH ×2 (08:28→16:51)
[2022-06-22] MEDS: Insulin Lispro 100 UNIT/ML 3 ML VIAL SUBCUT ×2 (08:28→13:16)
[2022-06-22] MEDS: Benztropine Mesylate 1 MG TABLET G-TUBE ×2 (08:28→20:42)
[2022-06-22] MEDS: Metoprolol Tartrate 25 MG TABLET G-TUBE ×2 (08:28→20:41)
[2022-06-22] MEDS: Lactulose 20 GM/30 ML SOLUTION G-TUBE (08:28)
[2022-06-22] MEDS: Furosemide 20 MG TABLET G-TUBE (08:28)
[2022-06-22] MEDS: OLANZapine 10 MG VIAL 5 MG IM (10:43)
--- NOTE | 2022-06-22 10:49 | HO.PM.IMPN ---
Subjective Subjective Date of Service: 06/22/22 Interval History: cc: hypoxia interval history: agitated, no complaints Review of Systems Review of Systems: Yes Unobtainable due to mental condition Physical Exam Vital Signs: Vital Signs: Last Vital Signs Temp 98.4 F 06/22/22 07:38 Pulse 78 06/22/22 08:08 Resp 22 H 06/22/22 08:08 BP 123/52 L 06/22/22 07:38 Pulse Ox 98 06/22/22 08:36 O2 Del Method 06/22/22 07:38 O2 Flow Rate 8 06/22/22 08:36 Oxygen Flow Rate 6 06/20/22 11:59 BMI result Body Mass Index 29.1 General: AO X 1, no acute distress, ill appearing Resp: CTA bilateral, no accessory muscles used CVS: S1,S2,RRR GI: soft, non tender, non distended, gtube in place Neuro: motor grossly intact, alert Psych: flat affect, agitated at times, impaired insight skin: hep injection sites echymosis Objective Data Active Medications Albuterol/Ipratropium (Albuterol/Iprat 2.5/0.5mg 3 Ml Ampul.Neb) 3 ml INHALE RQ6H WHILE AWAKE [facility] Last Admin: 06/22/22 08:07 Dose: 3 ml Documented By: GARY Albuterol/Ipratropium (Albuterol/Iprat 2.5/0.5mg 3 Ml Ampul.Neb) 3 ml INHALE RQ4H PRN PRN Reason: Shortness of Breath Last Admin: 06/22/22 05:10 Dose: 3 ml Documented By: GARY Amlodipine Besylate (Amlodipine Besylate 10 Mg Tablet) 10 mg G-TUBE DAILY [facility]; Protocol Last Admin: 06/22/22 08:27 Dose: 10 mg Documented By: KATRIN Benztropine Mesylate (Benztropine Mesylate 1 Mg Tablet) 1 mg G-TUBE BID [facility] Last Admin: 06/22/22 08:28 Dose: 1 mg Documented By: KATRIN Bisacodyl (Bisacodyl 10 Mg Supp.Rect) 10 mg OH DAILY PRN PRN Reason: Constipation Carbidopa/Levodopa (Carbidopa/Levodopa 25/100 Tablet) 1 tab G-TUBE QID [facility] Last Admin: 06/22/22 08:27 Dose: 1 tab Documented By: KATRIN Dextrose (Dextrose 50 % 25 Gm/50 Ml Syringe) 25 gm IVPUSH Q15M PRN; Protocol PRN Reason: per Hypoglycemia Standing Ord. Docusate Sodium (Docusate Sodium 100 Mg/10 Ml Liquid) 100 mg G-TUBE BEDTIME [facility] Last Admin: 06/21/22 21:52 Dose: Not Given Documented By: FCO Non-Admin Reason: Patient Condition Contraindication Fluphenazine Decanoate (Fluphenazine Decanoate 25 Mg/Ml 5 Ml Vial) 50 mg IM Q14D ANDREY Gabapentin (Gabapentin 300 Mg Capsule) 300 mg G-TUBE TID [facility] Last Admin: 06/22/22 08:28 Dose: 300 mg Documented By: KATRIN Glucose (Glucose Gel 15 Gm Gel..Gram.) 15 gm PO Q15M PRN; Protocol PRN Reason: per Hypoglycemia Standing Ord. Guaifenesin (Guaifenesin 100 Mg/5 Ml Liquid) 10 ml G-TUBE Q4H PRN PRN Reason: Cough Heparin Sodium (Porcine) (Heparin Sodium,Porcine 5,000 Unit/Ml Vial) 5,000 unit SUBCUT Q8H [facility] Last Admin: 06/22/22 03:34 Dose: 5,000 unit Documented By: LINDA Insulin Human Lispro (Insulin Lispro 100 Unit/Ml 3 Ml Vial) 0 unit SUBCUT QIDACHS [facility]; Protocol Last Admin: 06/22/22 08:28 Dose: 2 unit Documented By: KATRIN Lactulose (Lactulose 20 Gm/30 Ml Solution) 20 gm G-TUBE DAILY [facility] Last Admin: 06/22/22 08:28 Dose: 20 gm Documented By: KATRIN Levothyroxine Sodium (Levothyroxine Sodium 25 Mcg Tablet) 25 mcg G-TUBE DAILY@0600 [facility] Last Admin: 06/22/22 06:13 Dose: 25 mcg Documented By: LINDA Metoprolol Tartrate (Metoprolol Tartrate 25 Mg Tablet) 25 mg G-TUBE BID [facility]; Protocol Last Admin: 06/22/22 08:28 Dose: 25 mg Documented By: KATRIN Olanzapine (Olanzapine 10 Mg Vial) 5 mg IM DAILY PRN PRN Reason: agitation Last Admin: 06/22/22 10:43 Dose: 5 mg Documented By: KATRIN Omeprazole (Omeprazole 20 Mg/10 Ml Susp.Recon) 40 mg G-TUBE DAILY@0630 [facility] Last Admin: 06/22/22 06:13 Dose: 40 mg Documented By: LINDA Pharmacy Consult (Consult Rx Vancomycin Dosing) 1 each MISCELLANE DAILY PRN PRN Reason: Consult order Rifaximin (Rifaximin 550 Mg Tablet) 550 mg G-TUBE BID [facility] Last Admin: 06/22/22 08:27 Dose: 550 mg Documented By: KATRIN Senna (Sennosides 8.6 Mg Tablet) 8.6 mg G-TUBE DAILY PRN PRN Reason: Constipation Sodium Bicarbonate (Sodium Bicarbonate 650 Mg Tablet) 650 mg G-TUBE TID [facility] Sodium Chloride (0.9 % Sodium Chloride Flush 3 Ml Syringe) 3 ml IVFLUSH QSHIFT [facility] Last Admin: 06/22/22 08:28 Dose: 3 ml Documented By: KATRIN Tramadol HCl (Tramadol Hcl 50 Mg Tablet) 50 mg G-TUBE BID [facility] Last Admin: 06/22/22 08:28 Dose: 50 mg Documented By: KATRIN Labs CBC & Chem 7: 06/22/22 05:37 06/22/22 05:37 Labs: Laboratory Results - last 24 hr 06/21/22 06/21/22 06/21/22 06:40 11:10 12:52 MCV MCH MCHC RDW Plt Count MPV Absolute Nucleated RBC Nucleated RBC % (auto) Anion Gap 17 Estim Creat Clear Calc 44.6 Estimated GFR 33 POC Glucose 76 Random Glucose 121 H D Fasting Glucose Calcium 8.0 L Lactate Dehydrogenase 376 H 06/21/22 06/21/22 06/21/22 16:27 19:51 20:00 MCV MCH MCHC RDW Plt Count MPV Absolute Nucleated RBC Nucleated RBC % (auto) Anion Gap 16 Estim Creat Clear Calc 43.1 Estimated GFR 32 POC Glucose 123 H 134 H Random Glucose 152 H Fasting Glucose Calcium 7.8 L Lactate Dehydrogenase 06/22/22 06/22/22 06/22/22 05:37 05:37 07:13 MCV 109.1 H MCH 32.6 MCHC 29.9 L RDW 20.5 H Plt Count 57 L MPV 11.5 Absolute Nucleated RBC 0.000 Nucleated RBC % (auto) 0.0 Anion Gap 19 Estim Creat Clear Calc 39.9 Estimated GFR 29 POC Glucose 171 H Random Glucose Fasting Glucose 200 H Calcium 8.2 L Lactate Dehydrogenase Microbiology Microbiology Results: Microbiology 06/20/22 14:33 Blood Culture - Preliminary Blood - Venous No growth after 24 hours. 06/20/22 14:33 Blood Culture - Preliminary Blood - Venous No growth after 24 hours. Assessment and Plan (1) Acute respiratory failure with hypoxia: Status: Acute Plan 61-year-old gentleman resident of [facility] with past medical history of chronic kidney disease stage 3, hypertension, schizophrenia, diastolic heart failure with frequent hospitalization was recently discharged from [facility] on 06/16 after being treated for CHF exacerbation encephalopathy, with increasing confusion agitation, followed by an episode of vomiting and aspiration resulting in PE a arrest requiring intubation and admission to ICU, Subsequently required PEG tube placement due to dysphagia, return back to [facility] due to respiratory distress with significant hypoxia of 82-83% on 2 L Acute hypoxic respiratory failure likely secondary to possible aspiration pneumonia/diastolic CHF with acute exacerbation lungs sounds clear, saturating 100% on 6L will dc abx and monitor Wean oxygen as tolerated HOB at 30-45, especially while feeding hpyernatremia increase free fluids to q4h monitor hyperkalemia improved from 6.6 to 5.4 after insulin, lasix, and kayexylate nephro following, will start Gtube sodium bicarb monitor Chronic kidney disease stage 3 Creatinine at baseline Chronic Anemia with elevated MCV, recent iron studies within normal range normal B12 folate suspect related to cirrhosis/splenomegaly Parkinson's disease continue Sinemet Severe oropharyngeal dysphagia continue G-tube feeding promote Diabetes mellitus type 2 follow blood sugars , placed on insulin sliding scale since blood sugars low will hold off on Lantus follow blood sugars Cirrhosis continue lactulose History of schizophrenia continue home meds Code status full code as per molst form DVT prophylaxis with subcu heparin reason for continued hospitalization:hyperkalemia, hypernatremia, needs close monitoring, med and diet titration Quality Stroke Does the patient have a stroke diagnosis?: No VTE Prior VTE?: No VTE Risk Level:: Medical - moderate - high VTE Device Contraindication: Treatment Not Indicated VTE Drug Contraindication: N/A - Med Ordered
[2022-06-22 10:59] LABS: Glucose, Whole Blood 171 mg/dL (60-115)
--- NOTE | 2022-06-22 11:28 | CONS_ITS ---
DATE OF SERVICE: 06/22/2022 REASON FOR CONSULTATION: I was called to see this patient to assist in the management of chronic kidney disease and hyperkalemia. HISTORY OF PRESENT ILLNESS: To summarize, Adilson is a 61-year-old man who is a resident of [facility]. He was admitted because of shortness of breath. He has underlying Parkinson disease, schizophrenia, and chronic kidney disease with a baseline creatinine of around 2.0 mg/dL. At the time of admission, potassium was 6.6. He was treated medically for the same. This consultation was called for management of the chronic kidney disease and hyperkalemia. Ongoing medical problems include chronic kidney disease stage 3, alcohol abuse, drug abuse, dementia, liver failure, Parkinson disease, schizophrenia. FAMILY HISTORY: Not obtainable. SOCIAL HISTORY: He is a resident of [facility]. ALLERGIES: HE IS ALLERGIC TO RAGWEED POLLEN. MEDICATIONS: Current medications reviewed. Medications at time of admission were all reviewed. REVIEW OF SYSTEM: Obtained from the chart. The patient is a poor historian. PHYSICAL EXAMINATION: GENERAL: Patient is a middle-aged man, who appears ill. HEENT: The mucosa dry. NECK: Supple. LUNGS: Air entry equal. HEART: S1, S2 heard. No gallop. ABDOMEN: Soft with a G-tube. NEUROLOGIC: No involuntary movements. No myoclonus. EXTREMITIES: No edema. No rash. No clubbing. VITAL SIGNS: Blood pressure was 122/52, pulse 70 per minute. LABORATORY DATA: Sodium 147, potassium 4.4, CO2 of 18, BUN 62, creatinine 2.29, calcium 8.2. PROBLEMS: 1. Acute kidney injury superimposed on chronic kidney disease. 2. Acute kidney injury is most likely due to volume depletion. 3. Hyperkalemia. 4. Hyperchloremic metabolic acidosis. 5. Anemia. RECOMMENDATIONS: 1. To add free water via G-tube at 200 cc q.8 hourly. 2. Add sodium bicarbonate 650 mg via G-tube 3 times a day to correct acidosis. Once the acidosis is corrected, serum potassium should normalize. In the meantime, would add Lokelma 10 g p.r.n., if potassium is more than 5.5 mmol/L. We will follow closely with the team. Crispin Lomax MD BPA/MODL / [id number]
--- NOTE | 2022-06-22 13:11 | MHC.SL.SWA ---
Speech Pathologist Impression: Oropharyngeal dysphagia Risk of Aspiration Due to: Medically Fragile Neurological Condition History of Pneumonia Reduced Cognition Dysphasia Diet Status: No Change Liquid Consistency and Strategies for Safe Swallow: Liquid Intake Recommendation: NPO Solid Food Consistency: Dietary Recommendations: NPO Additional Modifications to Solid Foods: Given pt's history of dysphagia and aspiration, recommend MBSS to rule in/out aspiration and provide further recommendations. Possible limitation to pt's ability to participate in procedure for MBSS is pt's reslessness and overall mental status. Sent [place] Message to MD, RN, and RD w/ recommendations. Oral Medication Intake: NPO Please contact the pharmacy regarding appropriate crushable or liquid drug formulations that are available whenever modified delivery is recommended. Supervision While Eating and Drinking for Safe Swallow: PO with TAX TECHNICIAN Swallowing Recommended Treatments: Gustatory Stimulation Compens. Strategy Educat. Recommendation for Speech: Inpatient Speech Therapy Milk House Worker Clinican/Clinical Fellow: No Supervisory Statement: I have reviewed and agree with the student/clinical fellow's documentation: N/A Speech Language Pathologist: Jonelle Peterson M.A., CCC-TAX TECHNICIAN
[2022-06-22] MEDS: Sodium Bicarbonate 650 MG TABLET G-TUBE ×3 (13:16→20:40)
--- NOTE | 2022-06-22 13:21 | MHC.CLN ---
F/U PT RECEIVING NEPRO AT MAX GOAL RATE 45ML/HR WITH 30ML PROSOURCE Q DAY AND 300ML FREE WATER FLUSHES Q 4 HRS PROVIDES 2004KCALS (23KCALS/KG), 102G PROTEIN (1.17G/KG), 2585ML TOTAL WATER FROM FORMULA AND FLUSHES (30ML/KG) NOTED ELEVATED NA -PT RECEIVING MAXIMUM AMOUNT OF FREE WATER BOLUSES AT THIS TIME FAMILIAR WITH PT FROM PREVIOUS ADMISSIONS AND PT WITH HX HYPERNATREMIA REQUIRED LARGE AMOUNT OF WATER FLUSHES MONITOR TOLERANCE, RESIDUALS AND LYTES
--- NOTE | 2022-06-22 15:10 | MHC.CM.PN ---
DP return to [facility] via BLS. Per MD rounds no discharge today. Patient continues to require treatment for HyperK+. He also a 2 sitters 2:1 monitoring. Anticipate discharge later this week.
[2022-06-22 16:16] LABS: Glucose, Whole Blood 145 mg/dL (60-115)
[2022-06-22 19:51] LABS: Glucose, Whole Blood 145 mg/dL (60-115)
--- NOTE | 2022-06-22 20:40 | PM.EVENT ---
Event Note Date of Service: 06/22/22 Event Note: pt has sig anemia as well as low plt. heparin subq stopped, will order SCDS
[2022-06-22] MEDS: Docusate Sodium 100 MG/10 ML LIQUID G-TUBE (20:43)
[2022-06-23] VITALS (7 sets, daily range): BP systolic 126–178; BP diastolic 56–76; PULSE 62–78; RESP 20–22; TEMP 36.6–36.7; O2SAT 80–97
[2022-06-23] MEDS: Levothyroxine Sodium 25 MCG TABLET G-TUBE (05:56)
[2022-06-23 06:25] LABS: Hematocrit 23.4 % (42.0-52.0); Hemoglobin 7.2 g/dl (14.0-18.0); Mean Corpuscular HGB Conc 30.8 g/dl (31.0-36.0); Mean Corpuscular Hemoglobin 32.3 pg (27.0-33.0); Mean Corpuscular Volume 104.9 fL (80.0-98.0); Mean Platelet Volume 11.8 fL (9.4-12.4); Red Blood Count 2.23 X10*6/uL (4.60-5.80); Red Cell Distribution Width 20.7 % (11.0-16.0)
[2022-06-23 06:27] LABS: Platelet Count 62 X10*3/uL (160-400)
[2022-06-23 07:23] LABS: Anion Gap 18 (12-20); Blood Urea Nitrogen 70 mg/dL (9-16); Calcium 8.4 mg/dL (8.4-10.2); Carbon Dioxide 22 mmol/L (22-29); Chloride 112 mmol/L (96-108); Creatinine Clr Calc Pharmacy 35.3; Estimated Glomerular Filt Rate 25; Glucose Fasting 189 mg/dL (60-99); Potassium 5.4 mmol/L (3.3-5.1); Sodium 147 mmol/L (135-145)
[2022-06-23] MEDS: Albuterol/Iprat 2.5/0.5MG 3 ML AMPUL.NEB INHALE ×2 (07:40→20:19)
[2022-06-23 07:49] LABS: Glucose, Whole Blood 154 mg/dL (60-115)
[2022-06-23] MEDS: Metoprolol Tartrate 25 MG TABLET G-TUBE ×2 (08:53→22:24)
[2022-06-23] MEDS: Gabapentin 300 MG CAPSULE G-TUBE ×3 (08:53→22:24)
[2022-06-23] MEDS: Sodium Bicarbonate 650 MG TABLET G-TUBE ×3 (08:53→22:24)
[2022-06-23] MEDS: rifAXIMin 550 MG TABLET G-TUBE ×2 (08:54→22:24)
[2022-06-23] MEDS: Carbidopa/Levodopa 25/100 TABLET 1 TAB G-TUBE ×3 (08:54→22:24)
[2022-06-23] MEDS: traMADoL HCL 50 MG TABLET G-TUBE ×2 (08:54→22:24)
[2022-06-23] MEDS: Benztropine Mesylate 1 MG TABLET G-TUBE ×2 (08:54→22:25)
[2022-06-23] MEDS: amLODIPine Besylate 10 MG TABLET G-TUBE (08:54)
[2022-06-23] MEDS: Insulin Lispro 100 UNIT/ML 3 ML VIAL SUBCUT ×3 (08:55→19:16)
[2022-06-23] MEDS: OLANZapine 10 MG VIAL 5 MG IM (09:55)
[2022-06-23] MEDS: 0.9 % Sodium Chloride Flush 3 ML SYRINGE IVFLUSH ×2 (09:58→18:42)
--- NOTE | 2022-06-23 10:28 | PM.PNNEP ---
Subjective Subjective Date of Service: 06/23/22 Interval history: cc: hypoxia interval history: agitated, no complaints Physical Exam Vital Signs: Vital Signs: Last Vital Signs Temp 97.8 F 06/23/22 08:00 Pulse 66 06/23/22 08:00 Resp 20 06/23/22 08:00 BP 126/59 L 06/23/22 08:00 Pulse Ox 97 06/23/22 08:00 O2 Del Method 06/23/22 08:00 O2 Flow Rate 9 06/23/22 08:00 Oxygen Flow Rate 6 06/20/22 11:59 BMI result Body Mass Index 29.1 Const: Other: General: Awake, alert, no distress,?talking but not making sense Neck no JVD Resp:? Bilateral few expiratory wheeze, no crackles, no accessory muscle use CVS: S1,S2,RRR GI: Abdomen nontender, bruising, +BS, no distention, no guarding no rigidity Skin: No rash, stage II decubiti ulcer on coccyx, medial right buttock and left buttock Neuro:? Moving all 4 extremities Psych: flat Objective Data Labs CBC & Chem 7: 06/23/22 06:02 06/23/22 06:02 Labs: Laboratory Results - last 24 hr 06/22/22 06/22/22 06/22/22 05:37 10:54 16:12 WBC RBC Hgb Hct MCV MCH MCHC RDW Plt Count MPV Absolute Nucleated RBC Nucleated RBC % (auto) Smear Path Review Sodium Potassium Chloride Carbon Dioxide Anion Gap BUN Creatinine Estim Creat Clear Calc Estimated GFR POC Glucose 171 H 145 H Fasting Glucose Calcium 06/22/22 06/23/22 06/23/22 19:42 06:02 06:02 WBC 5.0 RBC 2.23 L Hgb 7.2 L Hct 23.4 L MCV 104.9 H MCH 32.3 MCHC 30.8 L RDW 20.7 H Plt Count 62 L MPV 11.8 Absolute Nucleated RBC 0.000 Nucleated RBC % (auto) 0.0 Smear Path Review Sodium 147 H Potassium 5.4 H Chloride 112 H Carbon Dioxide 22 Anion Gap 18 BUN 70 H Creatinine 2.59 H Estim Creat Clear Calc 35.3 Estimated GFR 25 POC Glucose 145 H Fasting Glucose 189 H Calcium 8.4 06/23/22 07:41 WBC RBC Hgb Hct MCV MCH MCHC RDW Plt Count MPV Absolute Nucleated RBC Nucleated RBC % (auto) Smear Path Review Sodium Potassium Chloride Carbon Dioxide Anion Gap BUN Creatinine Estim Creat Clear Calc Estimated GFR POC Glucose 154 H Fasting Glucose Calcium Microbiology Microbiology Results: Microbiology 06/20/22 14:33 Blood - Venous Blood Culture - Preliminary No growth after 48 hours. 06/20/22 14:33 Blood - Venous Blood Culture - Preliminary No growth after 48 hours. Procedures Date of Service Date of Service: 06/23/22 Assessment & Plan Assessment and plan (1) Acute respiratory failure with hypoxia: Status: Acute Plan Acute hypoxic respiratory failure likely secondary to possible aspiration pneumonia/diastolic CHF with acute exacerbation Hypernatremia increase free fluids to q4h monitor Hyperkalemia improved from 6.6 to 5.4 after insulin, lasix, and kayexylate Gtube sodium bicarb to correct acidosis monitor Chronic kidney disease stage 3 Creatinine bumped up due to hypoperfusion Keep I > O Chronic Anemia with elevated MCV, recent iron studies within normal range normal B12 folate Will add Epogen Parkinson's disease continue Sinemet Cirrhosis continue lactulose Time Spent With Patient Time: Total time spent is greater than 50% in coordination of care (as documented) at patient's floor/unit and/or counseling patient: Progress Note: Quality Stroke Does the patient have a stroke diagnosis?: No
[2022-06-23] MEDS: Sodium Polystyrene Sulfon/Sorb 15 GM/60 ML ORAL.SUSP 30 GM G-TUBE (11:23)
[2022-06-23] MEDS: QUEtiapine Fumarate 50 MG TABLET G-TUBE (11:24)
[2022-06-23 11:28] LABS: Glucose, Whole Blood 174 mg/dL (60-115)
--- NOTE | 2022-06-23 13:37 | P.PNIM_ITS ---
Subjective Subjective Date of Service: 06/23/22 Interval History: Seen and evaluated this morning Has to sitters at the bedside, agitated and restless Answering questions with yes and no but not giving much history Difficult night per nursing staff Review of Systems Review of Systems: Yes Unobtainable due to mental status Physical Exam Vital Signs: Vital Signs: Last Vital Signs Temp 97.9 F 06/23/22 10:57 Pulse 62 06/23/22 10:57 Resp 22 H 06/23/22 10:57 BP 130/56 L 06/23/22 10:57 Pulse Ox 91 L 06/23/22 10:57 O2 Del Method 06/23/22 10:57 O2 Flow Rate 6 06/23/22 10:57 Oxygen Flow Rate 6 06/20/22 11:59 BMI result Body Mass Index 29.1 Const: Other: Constitutional : Alert with stimulation, restless not in distress Neck : Normal inspection, Supple Cardiovascular : RRR, no JVP, no lower extremity edema Respiratory : fair bilateral air entry, no crackles, wheezes or rhonchi Gastrointestinal: soft, lax, Normal bowel sounds, Non tender Skin : Warm, Dry, ?stage II decubitus ulcer on coccyx, medial right buttock and left buttock Neurological : Alert with stimulation, No focal deficit , altered mentation Objective Data Active Medications Albuterol/Ipratropium (Albuterol/Iprat 2.5/0.5mg 3 Ml Ampul.Neb) 3 ml INHALE RQ6H WHILE AWAKE [facility] Last Admin: 06/23/22 07:40 Dose: 3 ml Documented By: SUMMER Albuterol/Ipratropium (Albuterol/Iprat 2.5/0.5mg 3 Ml Ampul.Neb) 3 ml INHALE RQ4H PRN PRN Reason: Shortness of Breath Last Admin: 06/22/22 05:10 Dose: 3 ml Documented By: GARY Amlodipine Besylate (Amlodipine Besylate 10 Mg Tablet) 10 mg G-TUBE DAILY [facility]; Protocol Last Admin: 06/23/22 08:54 Dose: 10 mg Documented By: LEANNA Benztropine Mesylate (Benztropine Mesylate 1 Mg Tablet) 1 mg G-TUBE BID [facility] Last Admin: 06/23/22 08:54 Dose: 1 mg Documented By: LEANNA Bisacodyl (Bisacodyl 10 Mg Supp.Rect) 10 mg MD DAILY PRN PRN Reason: Constipation Carbidopa/Levodopa (Carbidopa/Levodopa 25/100 Tablet) 1 tab G-TUBE QID [facility] Last Admin: 06/23/22 08:54 Dose: 1 tab Documented By: LEANNA Dextrose (Dextrose 50 % 25 Gm/50 Ml Syringe) 25 gm IVPUSH Q15M PRN; Protocol PRN Reason: per Hypoglycemia Standing Ord. Docusate Sodium (Docusate Sodium 100 Mg/10 Ml Liquid) 100 mg G-TUBE BEDTIME [facility] Last Admin: 06/22/22 20:43 Dose: 100 mg Documented By: CHARLIE Fluphenazine Decanoate (Fluphenazine Decanoate 25 Mg/Ml 5 Ml Vial) 50 mg IM Q14D ANDREY Gabapentin (Gabapentin 300 Mg Capsule) 300 mg G-TUBE TID [facility] Last Admin: 06/23/22 08:53 Dose: 300 mg Documented By: LEANNA Glucose (Glucose Gel 15 Gm Gel..Gram.) 15 gm PO Q15M PRN; Protocol PRN Reason: per Hypoglycemia Standing Ord. Guaifenesin (Guaifenesin 100 Mg/5 Ml Liquid) 10 ml G-TUBE Q4H PRN PRN Reason: Cough Insulin Human Lispro (Insulin Lispro 100 Unit/Ml 3 Ml Vial) 0 unit SUBCUT QIDACHS [facility]; Protocol Last Admin: 06/23/22 12:17 Dose: 2 unit Documented By: LEANNA Lactulose (Lactulose 20 Gm/30 Ml Solution) 20 gm G-TUBE DAILY [facility] Last Admin: 06/22/22 08:28 Dose: 20 gm Levothyroxine Sodium (Levothyroxine Sodium 25 Mcg Tablet) 25 mcg G-TUBE DAILY@0600 [facility] Last Admin: 06/23/22 05:56 Dose: 25 mcg Documented By: LINDA Metoprolol Tartrate (Metoprolol Tartrate 25 Mg Tablet) 25 mg G-TUBE BID [facility]; Protocol Last Admin: 06/23/22 08:53 Dose: 25 mg Documented By: LEANNA Olanzapine (Olanzapine 10 Mg Vial) 5 mg IM DAILY PRN PRN Reason: agitation Last Admin: 06/23/22 09:55 Dose: 5 mg Documented By: LEANNA Omeprazole (Omeprazole 20 Mg/10 Ml Susp.Recon) 40 mg G-TUBE DAILY@0630 [facility] Last Admin: 06/23/22 05:56 Dose: 40 mg Documented By: LINDA Pharmacy Consult (Consult Rx Vancomycin Dosing) 1 each MISCELLANE DAILY PRN PRN Reason: Consult order Rifaximin (Rifaximin 550 Mg Tablet) 550 mg G-TUBE BID [facility] Last Admin: 06/23/22 08:54 Dose: 550 mg Documented By: LEANNA Senna (Sennosides 8.6 Mg Tablet) 8.6 mg G-TUBE DAILY PRN PRN Reason: Constipation Sodium Bicarbonate (Sodium Bicarbonate 650 Mg Tablet) 650 mg G-TUBE TID [facility] Last Admin: 06/23/22 08:53 Dose: 650 mg Documented By: LEANNA Sodium Chloride (0.9 % Sodium Chloride Flush 3 Ml Syringe) 3 ml IVFLUSH QSHIFT [facility] Last Admin: 06/23/22 09:58 Dose: 3 ml Documented By: LEANNA Tramadol HCl (Tramadol Hcl 50 Mg Tablet) 50 mg G-TUBE BID [facility] Last Admin: 06/23/22 08:54 Dose: 50 mg Documented By: LEANNA Labs CBC & Chem 7: 06/23/22 06:02 06/23/22 06:02 Labs: Laboratory Results - last 24 hr 06/22/22 06/22/22 06/22/22 05:37 16:12 19:42 MCV MCH MCHC RDW Plt Count MPV Absolute Nucleated RBC Nucleated RBC % (auto) Smear Path Review Anion Gap Estim Creat Clear Calc Estimated GFR POC Glucose 145 H 145 H Fasting Glucose Calcium 06/23/22 06/23/22 06/23/22 06:02 06:02 07:41 MCV 104.9 H MCH 32.3 MCHC 30.8 L RDW 20.7 H Plt Count 62 L MPV 11.8 Absolute Nucleated RBC 0.000 Nucleated RBC % (auto) 0.0 Smear Path Review Anion Gap 18 Estim Creat Clear Calc 35.3 Estimated GFR 25 POC Glucose 154 H Fasting Glucose 189 H Calcium 8.4 06/23/22 11:10 MCV MCH MCHC RDW Plt Count MPV Absolute Nucleated RBC Nucleated RBC % (auto) Smear Path Review Anion Gap Estim Creat Clear Calc Estimated GFR POC Glucose 174 H Fasting Glucose Calcium Microbiology Microbiology Results: Microbiology 06/20/22 14:33 Blood Culture - Preliminary Blood - Venous No growth after 48 hours. 06/20/22 14:33 Blood Culture - Preliminary Blood - Venous No growth after 48 hours. Assessment and Plan (1) Acute respiratory failure with hypoxia: Status: Acute (2) Parkinson disease: Status: Acute (3) Hypernatremia: Status: Acute (4) Hyperkalemia: Status: Acute Plan 61-year-old gentleman resident of [facility] with past medical history of chronic kidney disease stage 3, hypertension, schizophrenia, diastolic heart failure with frequent hospitalization was recently discharged from [facility] on 06/16 after being treated for CHF exacerbation encephalopathy, with increasing confusion agitation, followed by an episode of vomiting and aspiration resulting in PE a arrest requiring intubation and admission to ICU, Subsequently required PEG tube placement due to dysphagia, return back to [facility] due to respiratory distress with significant hypoxia of 82-83% on 2 L Acute hypoxic respiratory failure likely secondary to aspiration pneumonia/diastolic CHF with acute exacerbation Antibiotics discontinued Wean oxygen as tolerated Hypernatremia Sodium of 147 increase free fluids 300 cc to q4h Follow BMP hyperkalemia Potassium of 5.4 after insulin, lasix, and kayexylate nephro following, continue Gtube sodium bicarb To give Kayexalate follow BMP Toxic metabolic encephalopathy Secondary to electrolyte imbalance, delirium, history schizophrenia Zyprexa as needed Correct underlying problems Recurrent orientation Chronic kidney disease stage 3 Creatinine at baseline Worsening Chronic Anemia with elevated MCV recent iron studies within normal range normal B12 folate suspect related to cirrhosis/splenomegaly Parkinson's disease continue Sinemet Severe oropharyngeal dysphagia continue G-tube feeding Diabetes mellitus type 2 follow blood sugars , insulin sliding scale since blood sugars low hold off on Lantus follow blood sugars Cirrhosis continue lactulose History of schizophrenia continue home meds Code status full code as per molst form DVT prophylaxis SCDs reason for continued hospitalization:hyperkalemia, hypernatremia, needs close monitoring, med and diet titration Quality Stroke Does the patient have a stroke diagnosis?: No VTE Prior VTE?: No VTE Risk Level:: Medical - moderate - high VTE Device Contraindication: Treatment Not Indicated VTE Drug Contraindication: N/A - Med Ordered
[2022-06-23 14:24] LABS: Iron 34 mcg/dL (45-160); Percent Iron Saturation 19 % (15-50); Total Iron Binding Capacity 180 mcg/dL (228-428); Unsaturated Iron Binding 146 ug/dL
[2022-06-23 15:02] LABS: Anion Gap 17 (12-20); Blood Urea Nitrogen 71 mg/dL (9-16); Carbon Dioxide 19 mmol/L (22-29); Chloride 114 mmol/L (96-108); Creatinine Clr Calc Pharmacy 36.4; Estimated Glomerular Filt Rate 26; Glucose Random 183 mg/dL (60-115); Potassium 5.2 mmol/L (3.3-5.1); Sodium 145 mmol/L (135-145)
[2022-06-23] MEDS: Sodium Zirconium Cyclosilicate 10 GM POWD.PACK PO (18:41)
[2022-06-23] MEDS: Lactulose 20 GM/30 ML SOLUTION G-TUBE (19:10)
[2022-06-23 20:09] LABS: Glucose, Whole Blood 160 mg/dL (60-115)
[2022-06-24] VITALS (7 sets, daily range): BP systolic 114–128; BP diastolic 53–85; PULSE 57–74; RESP 18–22; TEMP 36.4–37.1; O2SAT 88–99
[2022-06-24] MEDS: QUEtiapine Fumarate 25 MG TABLET PO ×3 (01:07→22:23)
[2022-06-24] MEDS: Levothyroxine Sodium 25 MCG TABLET G-TUBE (06:09)
[2022-06-24 06:17] LABS: Hematocrit 23.3 % (42.0-52.0); Hemoglobin 7.3 g/dl (14.0-18.0); Mean Corpuscular HGB Conc 31.3 g/dl (31.0-36.0); Mean Corpuscular Hemoglobin 32.4 pg (27.0-33.0); Mean Corpuscular Volume 103.6 fL (80.0-98.0); Mean Platelet Volume 11.4 fL (9.4-12.4); Red Blood Count 2.25 X10*6/uL (4.60-5.80); Red Cell Distribution Width 20.3 % (11.0-16.0)
[2022-06-24 06:24] LABS: Platelet Count 56 X10*3/uL (160-400)
[2022-06-24 06:39] LABS: Anion Gap 18 (12-20); Blood Urea Nitrogen 78 mg/dL (9-16); Calcium 8.1 mg/dL (8.4-10.2); Carbon Dioxide 23 mmol/L (22-29); Chloride 111 mmol/L (96-108); Creatinine Clr Calc Pharmacy 33.5; Estimated Glomerular Filt Rate 24; Glucose Random 160 mg/dL (60-115); Potassium 4.5 mmol/L (3.3-5.1); Sodium 147 mmol/L (135-145)
--- NOTE | 2022-06-24 06:40 | MHC.PIE ---
P. No void I. Pt has not voided all night. bladder scan obtained for 480mL. Dr. Eckert notified. order placed to straight cath. E. Straight cathed for 600mL. tolerated well.
--- NOTE | 2022-06-24 06:46 | PM.EVENT ---
Event Note Date of Service: 06/24/22 Event Note: Patient returning urine of 483. Will place straight cath
[2022-06-24 07:42] LABS: Glucose, Whole Blood 145 mg/dL (60-115)
[2022-06-24] MEDS: Albuterol/Iprat 2.5/0.5MG 3 ML AMPUL.NEB INHALE ×2 (07:51→11:43)
[2022-06-24] MEDS: Metoprolol Tartrate 25 MG TABLET G-TUBE ×2 (08:02→22:21)
[2022-06-24] MEDS: traMADoL HCL 50 MG TABLET G-TUBE ×2 (08:02→22:21)
[2022-06-24] MEDS: Lactulose 20 GM/30 ML SOLUTION G-TUBE (08:02)
[2022-06-24] MEDS: amLODIPine Besylate 10 MG TABLET G-TUBE (08:02)
[2022-06-24] MEDS: Carbidopa/Levodopa 25/100 TABLET 1 TAB G-TUBE ×4 (08:04→22:21)
[2022-06-24] MEDS: Benztropine Mesylate 1 MG TABLET G-TUBE ×2 (08:04→22:21)
[2022-06-24] MEDS: rifAXIMin 550 MG TABLET G-TUBE ×2 (08:04→22:21)
[2022-06-24] MEDS: Gabapentin 300 MG CAPSULE G-TUBE ×3 (08:04→22:21)
[2022-06-24] MEDS: Sodium Bicarbonate 650 MG TABLET G-TUBE ×3 (08:04→22:23)
--- NOTE | 2022-06-24 10:33 | PC.NURSE ---
Per last shift tube feed held for residual greater than 250 ml . Residual at 10:30 15 ml , tube feed restart at 20 ml/ hr.
[2022-06-24 11:32] LABS: Glucose, Whole Blood 153 mg/dL (60-115)
--- NOTE | 2022-06-24 11:46 | MHC.CLN ---
F/U PT RECEIVING NEPRO AT MAX GOAL RATE 45ML/HR WITH 30ML PROSOURCE Q DAY AND 300ML FREE WATER FLUSHES Q 4 HRS PROVIDES 2004KCALS (23KCALS/KG), 102G PROTEIN (1.17G/KG), 2585ML TOTAL WATER FROM FORMULA AND FLUSHES (30ML/KG) NOTED ELEVATED NA -PT RECEIVING MAXIMUM AMOUNT OF FREE WATER BOLUSES AT THIS TIME NSG REPORTED HIGH RESIDUALS AND TF WAS ON HOLD BUT RE-STARTED AT 20ML/HR CONTINUE TO MONITOR TOLERANCE, RESIDUALS AND LYTES
--- NOTE | 2022-06-24 12:02 | MHC.SLORD ---
Speech Language Pathology Order Status: Pt sleeping at noon when seen by [employer] ATTENDANT, groaning in his sleep. Sitter reports that pt had just fallen asleep after displaying significant restlessness. Per sitter, pt has been provided w/ oral care routinely. Pt has PEG tube, kept strict NPO at [facility] after recent d/c from [facility], arrived back to [facility]. Pt seen for bedside dysphagia evaluation on 06/22 and displayed delayed swallow, multiple swallow attempts (3-5 per trace amount water), and overt s/s of aspiration- gagging noise with intake of small amount of water. D/t history of dysphagia and aspiration, AD[employer] ATTENDANT strongly recommended MBSS. Discussed w/ MD this afternoon. Per MD, pt would not tolerate MBSS d/t mentation at this point. Pt will be NPO and monitored over the weekend. Will re-assess appropriateness of MBSS on Monday.
--- NOTE | 2022-06-24 12:27 | PM.PNNEP ---
Subjective Subjective Date of Service: 06/25/22 Interval history: Seen and evaluated this morning Has to sitters at the bedside, agitated and restless Answering questions with yes and no but not giving much history Difficult night per nursing staff Physical Exam Vital Signs: Vital Signs: Last Vital Signs Temp 97.8 F 06/24/22 11:16 Pulse 74 06/24/22 11:47 Resp 20 06/24/22 11:47 BP 127/67 06/24/22 11:16 Pulse Ox 95 06/24/22 11:16 O2 Del Method 06/24/22 11:16 O2 Flow Rate 6 06/24/22 11:16 Oxygen Flow Rate 6 06/20/22 11:59 BMI result Body Mass Index 29.1 Const: Other: General: Awake, alert, no distress,?talking but not making sense Neck no JVD Resp:? Bilateral few expiratory wheeze, no crackles, no accessory muscle use CVS: S1,S2,RRR GI: Abdomen nontender, bruising, +BS, no distention, no guarding no rigidity Skin: No rash, stage II decubiti ulcer on coccyx, medial right buttock and left buttock Neuro:? Moving all 4 extremities Psych: flat Objective Data Labs CBC & Chem 7: 06/25/22 06:45 06/25/22 06:45 Labs: Laboratory Results - last 24 hr 06/23/22 06/23/22 06/23/22 06:02 14:30 18:58 WBC RBC Hgb Hct MCV MCH MCHC RDW Plt Count MPV Absolute Nucleated RBC Nucleated RBC % (auto) Sodium 145 Potassium 5.2 H Chloride 114 H Carbon Dioxide 19 L Anion Gap 17 BUN 71 H Creatinine 2.51 H Estim Creat Clear Calc 36.4 Estimated GFR 26 POC Glucose 160 H Random Glucose 183 H Calcium 8.0 L Iron 34 L TIBC 180 L % Saturation 19 Unsat Iron Binding 146 06/24/22 06/24/22 06/24/22 05:39 05:39 07:22 WBC 5.0 RBC 2.25 L Hgb 7.3 L Hct 23.3 L MCV 103.6 H MCH 32.4 MCHC 31.3 RDW 20.3 H Plt Count 56 L MPV 11.4 Absolute Nucleated RBC 0.000 Nucleated RBC % (auto) 0.0 Sodium 147 H Potassium 4.5 Chloride 111 H Carbon Dioxide 23 Anion Gap 18 BUN 78 H Creatinine 2.73 H Estim Creat Clear Calc 33.5 Estimated GFR 24 POC Glucose 145 H Random Glucose 160 H Calcium 8.1 L Iron TIBC % Saturation Unsat Iron Binding 06/24/22 11:20 WBC RBC Hgb Hct MCV MCH MCHC RDW Plt Count MPV Absolute Nucleated RBC Nucleated RBC % (auto) Sodium Potassium Chloride Carbon Dioxide Anion Gap BUN Creatinine Estim Creat Clear Calc Estimated GFR POC Glucose 153 H Random Glucose Calcium Iron TIBC % Saturation Unsat Iron Binding Microbiology Microbiology Results: Microbiology 06/20/22 14:33 Blood - Venous Blood Culture - Preliminary No growth after 48 hours. 06/20/22 14:33 Blood - Venous Blood Culture - Preliminary No growth after 48 hours. Procedures Date of Service Date of Service: 06/24/22 Assessment & Plan Assessment and plan (1) Acute respiratory failure with hypoxia: Status: Acute Plan Acute hypoxic respiratory failure likely secondary to possible aspiration pneumonia/diastolic CHF with acute exacerbation Hypernatremia increase free fluids to q4h monitor Start IVF and keep I > O Hyperkalemia improved from 6.6 to 5.4 after insulin, lasix, and kayexylate Gtube sodium bicarb to correct acidosis monitor Chronic kidney disease stage 3 Creatinine bumped up due to hypoperfusion Keep I > O Chronic Anemia with elevated MCV, recent iron studies within normal range normal B12 folate Will add Epogen Parkinson's disease continue Sinemet Cirrhosis continue lactulose Time Spent With Patient Time: Total time spent is greater than 50% in coordination of care (as documented) at patient's floor/unit and/or counseling patient: Progress Note: Quality Stroke Does the patient have a stroke diagnosis?: No
[2022-06-24] MEDS: Insulin Lispro 100 UNIT/ML 3 ML VIAL SUBCUT (12:56)
[2022-06-24 14:45] LABS: Anion Gap 18 (12-20); Blood Urea Nitrogen 79 mg/dL (9-16); Calcium 8.2 mg/dL (8.4-10.2); Carbon Dioxide 23 mmol/L (22-29); Chloride 109 mmol/L (96-108); Creatinine Clr Calc Pharmacy 31.9; Estimated Glomerular Filt Rate 22; Glucose Random 166 mg/dL (60-115); Potassium 4.8 mmol/L (3.3-5.1); Sodium 145 mmol/L (135-145)
--- NOTE | 2022-06-24 15:11 | HO.PM.IMPN ---
Subjective Subjective Date of Service: 06/24/22 Interval History: Seen and evaluated this morning Has to sitters at the bedside, less agitated and restless this morning Denies any pain or complaints Difficult night per nursing staff Review of Systems Review of Systems: Yes Unobtainable due to mental status Physical Exam Vital Signs: Vital Signs: Last Vital Signs Temp 97.8 F 06/24/22 11:16 Pulse 74 06/24/22 11:47 Resp 20 06/24/22 11:47 BP 127/67 06/24/22 11:16 Pulse Ox 95 06/24/22 11:16 O2 Del Method 06/24/22 11:16 O2 Flow Rate 6 06/24/22 11:16 Oxygen Flow Rate 6 06/20/22 11:59 BMI result Body Mass Index 29.1 Const: Other: Constitutional : Alert with stimulation, restless not in distress Neck : Normal inspection, Supple Cardiovascular : RRR, no JVP, no lower extremity edema Respiratory : fair bilateral air entry, no crackles, wheezes or rhonchi Gastrointestinal: soft, lax, Normal bowel sounds, Non tender Skin : Warm, Dry, ?stage II decubitus ulcer on coccyx, medial right buttock and left buttock Neurological : Alert with stimulation, disoriented, No focal deficit , altered mentation Objective Data Active Medications Albuterol/Ipratropium (Albuterol/Iprat 2.5/0.5mg 3 Ml Ampul.Neb) 3 ml INHALE RQ6H WHILE AWAKE [facility] Last Admin: 06/24/22 11:43 Dose: 3 ml Documented By: ELSA Albuterol/Ipratropium (Albuterol/Iprat 2.5/0.5mg 3 Ml Ampul.Neb) 3 ml INHALE RQ4H PRN PRN Reason: Shortness of Breath Last Admin: 06/22/22 05:10 Dose: 3 ml Documented By: GARY Amlodipine Besylate (Amlodipine Besylate 10 Mg Tablet) 10 mg G-TUBE DAILY [facility]; Protocol Last Admin: 06/24/22 08:02 Dose: 10 mg Documented By: LEANNA Benztropine Mesylate (Benztropine Mesylate 1 Mg Tablet) 1 mg G-TUBE BID [facility] Last Admin: 06/24/22 08:04 Dose: 1 mg Documented By: LEANNA Bisacodyl (Bisacodyl 10 Mg Supp.Rect) 10 mg MN DAILY PRN PRN Reason: Constipation Carbidopa/Levodopa (Carbidopa/Levodopa 25/100 Tablet) 1 tab G-TUBE QID [facility] Last Admin: 06/24/22 12:57 Dose: 1 tab Documented By: LEANNA Dextrose (Dextrose 50 % 25 Gm/50 Ml Syringe) 25 gm IVPUSH Q15M PRN; Protocol PRN Reason: per Hypoglycemia Standing Ord. Docusate Sodium (Docusate Sodium 100 Mg/10 Ml Liquid) 100 mg G-TUBE BEDTIME [facility] Last Admin: 06/23/22 22:38 Dose: Not Given Documented By: MARTINA Non-Admin Reason: loose BM today Fluphenazine Decanoate (Fluphenazine Decanoate 25 Mg/Ml 5 Ml Vial) 50 mg IM Q14D ANDREY Gabapentin (Gabapentin 300 Mg Capsule) 300 mg G-TUBE TID [facility] Last Admin: 06/24/22 08:04 Dose: 300 mg Documented By: LEANNA Glucose (Glucose Gel 15 Gm Gel..Gram.) 15 gm PO Q15M PRN; Protocol PRN Reason: per Hypoglycemia Standing Ord. Guaifenesin (Guaifenesin 100 Mg/5 Ml Liquid) 10 ml G-TUBE Q4H PRN PRN Reason: Cough Dextrose (D5w) 1,000 mls @ 125 mls/hr IVCONT .Q8H ANDREY Ferric Sodium Gluconate Complex 125 mg/ Sodium Chloride 110 mls @ 100 mls/hr IV DAILY [facility] Stop: 06/26/22 10:05 Insulin Human Lispro (Insulin Lispro 100 Unit/Ml 3 Ml Vial) 0 unit SUBCUT QIDACHS [facility]; Protocol Last Admin: 06/24/22 12:56 Dose: 2 unit Documented By: LEANNA Lactulose (Lactulose 20 Gm/30 Ml Solution) 20 gm G-TUBE DAILY [facility] Last Admin: 06/24/22 08:02 Dose: 20 gm Documented By: LEANNA Levothyroxine Sodium (Levothyroxine Sodium 25 Mcg Tablet) 25 mcg G-TUBE DAILY@0600 [facility] Last Admin: 06/24/22 06:09 Dose: 25 mcg Documented By: LINDA Metoprolol Tartrate (Metoprolol Tartrate 25 Mg Tablet) 25 mg G-TUBE BID [facility]; Protocol Last Admin: 06/24/22 08:02 Dose: 25 mg Documented By: LEANNA Olanzapine (Olanzapine 10 Mg Vial) 5 mg IM DAILY PRN PRN Reason: agitation Last Admin: 06/23/22 09:55 Dose: 5 mg Documented By: LEANNA Omeprazole (Omeprazole 20 Mg/10 Ml Susp.Recon) 40 mg G-TUBE DAILY@0630 [facility] Last Admin: 06/24/22 06:09 Dose: 40 mg Documented By: LINDA Pharmacy Consult (Consult Rx Vancomycin Dosing) 1 each MISCELLANE DAILY PRN PRN Reason: Consult order Quetiapine Fumarate (Quetiapine Fumarate 25 Mg Tablet) 25 mg PO BID PRN PRN Reason: anxiety/restlessness Last Admin: 06/24/22 10:26 Dose: 25 mg Documented By: LEANNA Rifaximin (Rifaximin 550 Mg Tablet) 550 mg G-TUBE BID [facility] Last Admin: 06/24/22 08:04 Dose: 550 mg Documented By: LEANNA Senna (Sennosides 8.6 Mg Tablet) 8.6 mg G-TUBE DAILY PRN PRN Reason: Constipation Sodium Bicarbonate (Sodium Bicarbonate 650 Mg Tablet) 650 mg G-TUBE TID [facility] Last Admin: 06/24/22 08:04 Dose: 650 mg Documented By: LEANNA Sodium Chloride (0.9 % Sodium Chloride Flush 3 Ml Syringe) 3 ml IVFLUSH QSHIFT [facility] Last Admin: 06/24/22 08:25 Dose: Not Given Documented By: LEANNA Non-Admin Reason: No Access Tramadol HCl (Tramadol Hcl 50 Mg Tablet) 50 mg G-TUBE BID [facility] Last Admin: 06/24/22 08:02 Dose: 50 mg Documented By: LEANNA Labs CBC & Chem 7: 06/24/22 05:39 06/24/22 13:46 Labs: Laboratory Results - last 24 hr 06/23/22 06/24/22 06/24/22 18:58 05:39 05:39 MCV 103.6 H MCH 32.4 MCHC 31.3 RDW 20.3 H Plt Count 56 L MPV 11.4 Absolute Nucleated RBC 0.000 Nucleated RBC % (auto) 0.0 Anion Gap 18 Estim Creat Clear Calc 33.5 Estimated GFR 24 POC Glucose 160 H Random Glucose 160 H Calcium 8.1 L 06/24/22 06/24/22 06/24/22 07:22 11:20 13:46 MCV MCH MCHC RDW Plt Count MPV Absolute Nucleated RBC Nucleated RBC % (auto) Anion Gap 18 Estim Creat Clear Calc 31.9 Estimated GFR 22 POC Glucose 145 H 153 H Random Glucose 166 H Calcium 8.2 L Assessment and Plan (1) Hyperkalemia: Status: Acute (2) Hypernatremia: Status: Acute (3) Acute respiratory failure with hypoxia: Status: Acute Plan 61-year-old gentleman resident of [facility] with past medical history of chronic kidney disease stage 3, hypertension, schizophrenia, diastolic heart failure with frequent hospitalization was recently discharged from [facility] on 06/16 after being treated for CHF exacerbation encephalopathy, with increasing confusion agitation, followed by an episode of vomiting and aspiration resulting in PE a arrest requiring intubation and admission to ICU, Subsequently required PEG tube placement due to dysphagia, return back to [facility] due to respiratory distress with significant hypoxia of 82-83% on 2 L Acute hypoxic respiratory failure likely secondary to aspiration pneumonitis/diastolic CHF with acute exacerbation Antibiotics discontinued No fever or leukocytosis Wean oxygen as tolerated Repeat CXR Hypernatremia Sodium of 147 increase free fluids 300 cc to q4h Start D5W Follow BMP hyperkalemia Potassium of 4.5 nephro following, continue Gtube sodium bicarb follow BMP Toxic metabolic encephalopathy Secondary to electrolyte imbalance, delirium, history schizophrenia Zyprexa as needed Seroquel p.r.n. Correct underlying problems Recurrent orientation Chronic kidney disease stage 3 Creatinine at baseline Worsening Chronic Anemia with elevated MCV suspect related to cirrhosis/splenomegaly Low iron stores normal B12 folate To give IV iron Parkinson's disease continue Sinemet Severe oropharyngeal dysphagia continue G-tube feeding Diabetes mellitus type 2 follow blood sugars , insulin sliding scale since blood sugars low hold off on Lantus follow blood sugars Cirrhosis continue lactulose History of schizophrenia continue home meds Code status full code as per molst form DVT prophylaxis SCDs reason for continued hospitalization:hyperkalemia, hypernatremia, altered mentation, needs close monitoring, med and diet titration to prevent possible decompensation Quality Stroke Does the patient have a stroke diagnosis?: No VTE Prior VTE?: No VTE Risk Level:: Medical - moderate - high VTE Device Contraindication: Treatment Not Indicated VTE Drug Contraindication: N/A - Med Ordered
--- NOTE | 2022-06-24 15:27 | MHC.CM.PN ---
per rounds pt maybe dcd over the weekend plan remains to return to care one
[2022-06-24 16:28] LABS: Glucose, Whole Blood 139 mg/dL (60-115)
[2022-06-24] MEDS: 0.9 % Sodium Chloride Flush 3 ML SYRINGE IVFLUSH (16:35)
[2022-06-24] MEDS: Sodium Ferric Gluconat/Sucrose 125 MG in 0.9 % Sodium Chloride 100 ML 100 MG IV (16:48)
[2022-06-24] MEDS: Dextrose 5 % 1,000 ML 125 ML IVCONT (19:06)
[2022-06-24 19:59] LABS: Glucose, Whole Blood 145 mg/dL (60-115)
[2022-06-24] MEDS: Docusate Sodium 100 MG/10 ML LIQUID G-TUBE (22:36)
[2022-06-25] MEDS: OLANZapine 10 MG VIAL 5 MG IM (01:06)
[2022-06-25] MEDS: Dextrose 5 % 1,000 ML 125 ML IVCONT (03:47)
[2022-06-25] MEDS: Levothyroxine Sodium 25 MCG TABLET G-TUBE (06:14)
[2022-06-25 07:25] LABS: MANUAL DIFF FLAG NO
[2022-06-25 07:32] LABS: Immature Retic Fraction 14.9 % (2.3-13.4); Retic HGB Equivalent 29.3 pg (30.0-35.0); Reticulocyte Percent 2.3 % (0.5-1.8); Reticulocytes Absolute 0.054 X10*6/uL (0.026-0.095)
[2022-06-25 07:33] LABS: Basophils Percent Auto 0.2 % (0-2); Eosinophils Absolute Auto 0.2 X10*3/uL (0.0-0.4); Eosinophils Percent Auto 4.2 % (0-4); Hemoglobin 7.6 g/dl (14.0-18.0); Imm Gran Abs Auto 0.02 X10*3/uL (0.00-0.03); Imm Gran Pct Auto 0.4 % (0.0-0.4); Lymphocytes Absolute Auto 0.6 X10*3/uL (1.2-4.9); Lymphocytes Percent Auto 12.2 % (20-40); Mean Corpuscular HGB Conc 31.7 g/dl (31.0-36.0); Mean Corpuscular Hemoglobin 32.5 pg (27.0-33.0); Mean Corpuscular Volume 102.6 fL (80.0-98.0); Monocytes Absolute Auto 0.4 X10*3/uL (0.1-1.2); Monocytes Percent Auto 8.8 % (2-11); Neutrophils Absolute Auto 3.7 x10*3/uL (2.0-8.3); Neutrophils Percent Auto 74.2 % (45-73); Red Blood Count 2.34 X10*6/uL (4.60-5.80); Red Cell Distribution Width 20.1 % (11.0-16.0)
[2022-06-25 07:37] LABS: INTERNATIONAL NORM RATIO 1.3 (0.9-1.1); Prothrombin Time 14.5 SEC (10.0-13.1)
[2022-06-25 07:38] LABS: Platelet Count 64 X10*3/uL (160-400)
[2022-06-25 07:46] LABS: Glucose, Whole Blood 196 mg/dL (60-115)
[2022-06-25 07:56] LABS: B Type Natriuretic Peptide 2537 pg/mL (<100)
[2022-06-25 07:59] LABS: Anion Gap 18 (12-20); Blood Urea Nitrogen 81 mg/dL (9-16); Calcium 8.2 mg/dL (8.4-10.2); Carbon Dioxide 22 mmol/L (22-29); Chloride 105 mmol/L (96-108); Creatinine Clr Calc Pharmacy 30.7; Estimated Glomerular Filt Rate 21; Glucose Random 197 mg/dL (60-115); Potassium 4.4 mmol/L (3.3-5.1); Sodium 141 mmol/L (135-145)
[2022-06-25 08:00] VITALS: BP 124/65; PULSE 55; RESP 20; O2SAT 95
[2022-06-25 08:09] LABS: Alanine Aminotransferase 6 U/L (0-40); Albumin Level 2.5 g/dL (3.5-5.0); Alkaline Phosphatase 78 U/L (39-117); Aspartate Amino Transferase 21 U/L (5-37); Bilirubin Direct 0.7 mg/dL (0.0-0.5)
[2022-06-25] MEDS: Insulin Lispro 100 UNIT/ML 3 ML VIAL SUBCUT ×3 (09:09→22:25)
[2022-06-25] MEDS: Benztropine Mesylate 1 MG TABLET G-TUBE ×2 (09:16→22:24)
[2022-06-25] MEDS: Gabapentin 300 MG CAPSULE G-TUBE ×3 (09:16→22:24)
[2022-06-25] MEDS: rifAXIMin 550 MG TABLET G-TUBE ×2 (09:17→22:24)
[2022-06-25] MEDS: Sodium Bicarbonate 650 MG TABLET G-TUBE ×3 (09:17→22:24)
[2022-06-25] MEDS: Lactulose 20 GM/30 ML SOLUTION G-TUBE (09:17)
[2022-06-25] MEDS: Carbidopa/Levodopa 25/100 TABLET 1 TAB G-TUBE ×4 (09:17→22:24)
[2022-06-25] MEDS: traMADoL HCL 50 MG TABLET G-TUBE (09:17)
[2022-06-25] MEDS: Furosemide 40 MG/4 ML VIAL 20 MG IVPUSH (09:18)
[2022-06-25] MEDS: Albumin Human 25 % 100 ML IV ×3 (09:20→22:23)
[2022-06-25] MEDS: amLODIPine Besylate 10 MG TABLET G-TUBE (09:20)
[2022-06-25 10:10] LABS: Band Neutrophils Percent 0 % (3-5); Basophils Abs Manual 0.1 X10*3/uL (0.0-0.2); Basophils Percent Manual 1 % (0-2); Eosinophils Absolute Manual 0.1 X10*3/uL (0.0-0.4); Eosinophils Percent Manual 1 % (0-4); Lymphocytes Absolute Manual 0.3 X10*3/uL (1.2-4.9); Lymphocytes Percent Manual 5 % (20-40); Monocytes Absolute Manual 0.3 X10*3/uL (0.1-1.2); Monocytes Percent Manual 5 % (2-11); Neutrophils Absolute Manual 4.4 X10*3/uL (2.0-8.3); Neutrophils Percent Manual 88 % (45-73)
[2022-06-25 10:13] LABS: Burr Cells 2+ (3-5) /OIF; Hypochromasia 1+ (5-14) /OIF; Macrocytosis 1+ (5-14) /OIF; Platelet Estimate DECREASED (NORMAL); Platelet Morphology Comment NORMAL; RBC Morphology NOTED; Schistocytes 1+ (0-2) /OIF; Tear Drop Cells 1+ (0-2) /OIF
[2022-06-25 11:21] LABS: Glucose, Whole Blood 141 mg/dL (60-115)
[2022-06-25 11:47] VITALS: BP 142/64; PULSE 59; RESP 20; TEMP 36.6; O2SAT 93
[2022-06-25] MEDS: Sodium Ferric Gluconat/Sucrose 125 MG in 0.9 % Sodium Chloride 100 ML 100 MG IV (12:07)
[2022-06-25] MEDS: QUEtiapine Fumarate 25 MG TABLET PO (12:07)
--- NOTE | 2022-06-25 12:38 | PM.PNNEP ---
Subjective Subjective Date of Service: 06/26/22 Interval history: Event noted Physical Exam Vital Signs: Vital Signs: Last Vital Signs Temp 97.9 F 06/25/22 11:47 Pulse 59 06/25/22 11:47 Resp 20 06/25/22 11:47 BP 142/64 H 06/25/22 11:47 Pulse Ox 93 06/25/22 11:47 O2 Del Method 06/25/22 11:47 O2 Flow Rate 3.5 06/25/22 11:47 Oxygen Flow Rate 6 06/20/22 11:59 BMI result Body Mass Index 29.1 Const: Other: General: Awake, alert, no distress,?talking but not making sense Neck no JVD Resp:? Bilateral few expiratory wheeze, no crackles, no accessory muscle use CVS: S1,S2,RRR GI: Abdomen nontender, bruising, +BS, no distention, no guarding no rigidity Skin: No rash, stage II decubiti ulcer on coccyx, medial right buttock and left buttock Neuro:? Moving all 4 extremities Psych: flat Objective Data Labs CBC & Chem 7: 06/25/22 06:45 06/26/22 06:27 Labs: Laboratory Results - last 24 hr 06/24/22 06/24/22 06/24/22 13:46 16:13 19:47 WBC RBC Hgb Hct MCV MCH MCHC RDW Plt Count MPV Immature Gran % (Auto) Neut % (Auto) Lymph % (Auto) [place] % (Auto) Eos % (Auto) Baso % (Auto) Lymph # (Auto) [place] # (Auto) Eos # (Auto) Baso # (Auto) Abs Immat Gran (auto) Absolute Neuts (auto) Absolute Nucleated RBC Nucleated RBC % (auto) Neutrophils % (Manual) Band Neutrophils % Lymphocytes % (Manual) Monocytes % (Manual) Eosinophils % (Manual) Basophils % (Manual) Abs Neuts (Manual) Lymphocytes # (Manual) Monocytes # (Manual) Eosinophils # (Manual) Basophils # (Manual) Platelet Estimate Plt Morphology Comment RBC Morphology Hypochromasia Macrocytosis Tear Drop Cells [place] Cells Schistocytes Absolute Retic Percent Retic Immature Retic Fraction Retic Hgb Equivalent PT INR Sodium 145 Potassium 4.8 Chloride 109 H Carbon Dioxide 23 Anion Gap 18 BUN 79 H Creatinine 2.86 H Estim Creat Clear Calc 31.9 Estimated GFR 22 POC Glucose 139 H 145 H Random Glucose 166 H Calcium 8.2 L Total Bilirubin Direct Bilirubin AST ALT Alkaline Phosphatase B-Natriuretic Peptide Total Protein Albumin 06/25/22 06/25/22 06/25/22 06:45 06:45 06:45 WBC RBC Hgb Hct MCV MCH MCHC RDW Plt Count MPV Immature Gran % (Auto) Neut % (Auto) Lymph % (Auto) [place] % (Auto) Eos % (Auto) Baso % (Auto) Lymph # (Auto) [place] # (Auto) Eos # (Auto) Baso # (Auto) Abs Immat Gran (auto) Absolute Neuts (auto) Absolute Nucleated RBC Nucleated RBC % (auto) Neutrophils % (Manual) Band Neutrophils % Lymphocytes % (Manual) Monocytes % (Manual) Eosinophils % (Manual) Basophils % (Manual) Abs Neuts (Manual) Lymphocytes # (Manual) Monocytes # (Manual) Eosinophils # (Manual) Basophils # (Manual) Platelet Estimate Plt Morphology Comment RBC Morphology Hypochromasia Macrocytosis Tear Drop Cells [place] Cells Schistocytes Absolute Retic Percent Retic Immature Retic Fraction Retic Hgb Equivalent PT 14.5 H INR 1.3 H Sodium 141 Potassium 4.4 Chloride 105 Carbon Dioxide 22 Anion Gap 18 BUN 81 H Creatinine 2.97 H Estim Creat Clear Calc 30.7 Estimated GFR 21 POC Glucose Random Glucose 197 H Calcium 8.2 L Total Bilirubin Direct Bilirubin AST ALT Alkaline Phosphatase B-Natriuretic Peptide 2537 H Total Protein Albumin 06/25/22 06/25/22 06/25/22 06:45 06:45 06:45 WBC 5.0 RBC 2.34 L Hgb 7.6 L Hct 24.0 L MCV 102.6 H MCH 32.5 MCHC 31.7 RDW 20.1 H Plt Count 64 L MPV 12.0 Immature Gran % (Auto) 0.4 Neut % (Auto) 74.2 H Lymph % (Auto) 12.2 L [place] % (Auto) 8.8 Eos % (Auto) 4.2 H Baso % (Auto) 0.2 Lymph # (Auto) 0.6 L [place] # (Auto) 0.4 Eos # (Auto) 0.2 Baso # (Auto) 0.0 Abs Immat Gran (auto) 0.02 Absolute Neuts (auto) 3.7 Absolute Nucleated RBC 0.000 Nucleated RBC % (auto) 0.0 Neutrophils % (Manual) 88 H Band Neutrophils % 0 L Lymphocytes % (Manual) 5 L Monocytes % (Manual) 5 Eosinophils % (Manual) 1 Basophils % (Manual) 1 Abs Neuts (Manual) 4.4 Lymphocytes # (Manual) 0.3 L Monocytes # (Manual) 0.3 Eosinophils # (Manual) 0.1 Basophils # (Manual) 0.1 Platelet Estimate DECREASED Plt Morphology Comment NORMAL RBC Morphology NOTED Hypochromasia 1+ (5-14) Macrocytosis 1+ (5-14) Tear Drop Cells 1+ (0-2) [place] Cells 2+ (3-5) Schistocytes 1+ (0-2) Absolute Retic 0.054 Percent Retic 2.3 H Immature Retic Fraction 14.9 H Retic Hgb Equivalent 29.3 L PT INR Sodium Potassium Chloride Carbon Dioxide Anion Gap BUN Creatinine Estim Creat Clear Calc Estimated GFR POC Glucose Random Glucose Calcium Total Bilirubin 1.0 Direct Bilirubin 0.7 H AST 21 ALT 6 Alkaline Phosphatase 78 B-Natriuretic Peptide Total Protein 6.0 L Albumin 2.5 L 06/25/22 06/25/22 07:22 11:00 WBC RBC Hgb Hct MCV MCH MCHC RDW Plt Count MPV Immature Gran % (Auto) Neut % (Auto) Lymph % (Auto) [place] % (Auto) Eos % (Auto) Baso % (Auto) Lymph # (Auto) [place] # (Auto) Eos # (Auto) Baso # (Auto) Abs Immat Gran (auto) Absolute Neuts (auto) Absolute Nucleated RBC Nucleated RBC % (auto) Neutrophils % (Manual) Band Neutrophils % Lymphocytes % (Manual) Monocytes % (Manual) Eosinophils % (Manual) Basophils % (Manual) Abs Neuts (Manual) Lymphocytes # (Manual) Monocytes # (Manual) Eosinophils # (Manual) Basophils # (Manual) Platelet Estimate Plt Morphology Comment RBC Morphology Hypochromasia Macrocytosis Tear Drop Cells [place] Cells Schistocytes Absolute Retic Percent Retic Immature Retic Fraction Retic Hgb Equivalent PT INR Sodium Potassium Chloride Carbon Dioxide Anion Gap BUN Creatinine Estim Creat Clear Calc Estimated GFR POC Glucose 196 H 141 H Random Glucose Calcium Total Bilirubin Direct Bilirubin AST ALT Alkaline Phosphatase B-Natriuretic Peptide Total Protein Albumin Microbiology Microbiology Results: Microbiology 06/20/22 14:33 Blood - Venous Blood Culture - Preliminary No growth after 48 hours. 06/20/22 14:33 Blood - Venous Blood Culture - Preliminary No growth after 48 hours. Procedures Date of Service Date of Service: 06/25/22 Assessment & Plan Assessment and plan (1) Acute respiratory failure with hypoxia: Status: Acute Plan Acute hypoxic respiratory failure likely secondary to possible aspiration pneumonia/diastolic CHF with acute exacerbation Hypernatremia improved free water via G tube monitor Hyperkalemia improved from 6.6 to 5.4 after insulin, lasix, and kayexylate Gtube sodium bicarb to correct acidosis monitor Chronic kidney disease stage 3 Creatinine bumped up due to hypoperfusion Keep I > O Chronic Anemia with elevated MCV, recent iron studies within normal range normal B12 folate Will add Epogen Parkinson's disease continue Sinemet Cirrhosis continue lactulose Time Spent With Patient Time: Total time spent is greater than 50% in coordination of care (as documented) at patient's floor/unit and/or counseling patient: Progress Note: Quality Stroke Does the patient have a stroke diagnosis?: No
[2022-06-25] MEDS: Albuterol/Iprat 2.5/0.5MG 3 ML AMPUL.NEB INHALE (14:20)
--- NOTE | 2022-06-25 14:34 | P.PNIM_ITS ---
Subjective Subjective Date of Service: 06/25/22 Interval History: Seen and evaluated this morning Has to sitters at the bedside, less agitated and restless this morning but still significantly confused Sodium and potassium level improved Weaning oxygen supplement Denies any pain or complaints Difficult night per nursing staff Review of Systems Review of Systems: Yes Unobtainable due to mental status Physical Exam Vital Signs: Vital Signs: Last Vital Signs Temp 97.9 F 06/25/22 11:47 Pulse 59 06/25/22 11:47 Resp 20 06/25/22 11:47 BP 142/64 H 06/25/22 11:47 Pulse Ox 93 06/25/22 11:47 O2 Del Method 06/25/22 11:47 O2 Flow Rate 3.5 06/25/22 11:47 Oxygen Flow Rate 6 06/20/22 11:59 BMI result Body Mass Index 29.1 Const: Other: Constitutional : Alert with stimulation, restless not in distress Neck : Normal inspection, Supple Cardiovascular : RRR, no JVP, no lower extremity edema Respiratory : fair bilateral air entry, no crackles, wheezes or rhonchi Gastrointestinal: soft, lax, Normal bowel sounds, Non tender Skin : Warm, Dry, ?stage II decubitus ulcer on coccyx, medial right buttock and left buttock Neurological : Alert with stimulation, disoriented, No focal deficit , altered mentation Objective Data Active Medications Albuterol/Ipratropium (Albuterol/Iprat 2.5/0.5mg 3 Ml Ampul.Neb) 3 ml INHALE RQ6H WHILE AWAKE COUNTS INCLUDE 234 BEDS AT THE [facility] Last Admin: 06/25/22 14:20 Dose: 3 ml Documented By: SUMMER Albuterol/Ipratropium (Albuterol/Iprat 2.5/0.5mg 3 Ml Ampul.Neb) 3 ml INHALE RQ4H PRN PRN Reason: Shortness of Breath Last Admin: 06/22/22 05:10 Dose: 3 ml Documented By: GARY Amlodipine Besylate (Amlodipine Besylate 10 Mg Tablet) 10 mg G-TUBE DAILY COUNTS INCLUDE 234 BEDS AT THE [facility]; Protocol Last Admin: 06/25/22 09:20 Dose: 10 mg Documented By: NERI Benztropine Mesylate (Benztropine Mesylate 1 Mg Tablet) 1 mg G-TUBE BID COUNTS INCLUDE 234 BEDS AT THE [facility] Last Admin: 06/25/22 09:16 Dose: 1 mg Documented By: NERI Bisacodyl (Bisacodyl 10 Mg Supp.Rect) 10 mg MD DAILY PRN PRN Reason: Constipation Carbidopa/Levodopa (Carbidopa/Levodopa 25/100 Tablet) 1 tab G-TUBE QID ANDREY Last Admin: 06/25/22 12:07 Dose: 1 tab Documented By: NERI Dextrose (Dextrose 50 % 25 Gm/50 Ml Syringe) 25 gm IVPUSH Q15M PRN; Protocol PRN Reason: per Hypoglycemia Standing Ord. Docusate Sodium (Docusate Sodium 100 Mg/10 Ml Liquid) 100 mg G-TUBE BEDTIME ANDREY Last Admin: 06/24/22 22:36 Dose: 100 mg Documented By: FOSTEKGeno Fluphenazine Decanoate (Fluphenazine Decanoate 25 Mg/Ml 5 Ml Vial) 50 mg IM Q14D ANDREY Furosemide (Furosemide 40 Mg/4 Ml Vial) 20 mg IVPUSH DAILY ANDREY; Protocol Last Admin: 06/25/22 09:18 Dose: 20 mg Documented By: NERI Gabapentin (Gabapentin 300 Mg Capsule) 300 mg G-TUBE TID ANDREY Last Admin: 06/25/22 09:16 Dose: 300 mg Documented By: NERI Glucose (Glucose Gel 15 Gm Gel..Gram.) 15 gm PO Q15M PRN; Protocol PRN Reason: per Hypoglycemia Standing Ord. Guaifenesin (Guaifenesin 100 Mg/5 Ml Liquid) 10 ml G-TUBE Q4H PRN PRN Reason: Cough Ferric Sodium Gluconate Complex 125 mg/ Sodium Chloride 110 mls @ 100 mls/hr IV DAILY ANDREY Stop: 06/26/22 10:05 Last Infusion: 06/25/22 13:32 Dose: 0 mls/hr Documented By: NERI Albumin Human (Kedbumin 25 %) 100 mls @ 100 mls/hr IV Q6H ANDREY Stop: 06/26/22 03:29 Last Infusion: 06/25/22 11:10 Dose: 0 mls/hr Documented By: NERI Insulin Human Lispro (Insulin Lispro 100 Unit/Ml 3 Ml Vial) 0 unit SUBCUT QIDACHS ANDREY; Protocol Last Admin: 06/25/22 12:39 Dose: Not Given Documented By: NERI Non-Admin Reason: No Insulin Coverage Lactulose (Lactulose 20 Gm/30 Ml Solution) 20 gm G-TUBE DAILY COUNTS INCLUDE 234 BEDS AT THE [facility] Last Admin: 06/25/22 09:17 Dose: 20 gm Documented By: NERI Levothyroxine Sodium (Levothyroxine Sodium 25 Mcg Tablet) 25 mcg G-TUBE DAILY@0600 COUNTS INCLUDE 234 BEDS AT THE [facility] Last Admin: 06/25/22 06:14 Dose: 25 mcg Documented By: THEE Metoprolol Tartrate (Metoprolol Tartrate 25 Mg Tablet) 25 mg G-TUBE BID COUNTS INCLUDE 234 BEDS AT THE [facility]; Protocol Last Admin: 06/25/22 11:03 Dose: Not Given Documented By: NERI Non-Admin Reason: Decreased Heart Rate Nystatin (Nystatin Powder 15 Gm Bottle) 1 appl TOPICAL BID COUNTS INCLUDE 234 BEDS AT THE [facility]; Protocol Olanzapine (Olanzapine 10 Mg Vial) 5 mg IM DAILY PRN PRN Reason: agitation Last Admin: 06/25/22 01:06 Dose: 5 mg Documented By: SADAF Omeprazole (Omeprazole 20 Mg/10 Ml Susp.Recon) 40 mg G-TUBE DAILY@0630 COUNTS INCLUDE 234 BEDS AT THE [facility] Last Admin: 06/25/22 06:14 Dose: 40 mg Documented By: THEE Pharmacy Consult (Consult Rx Vancomycin Dosing) 1 each MISCELLANE DAILY PRN PRN Reason: Consult order Quetiapine Fumarate (Quetiapine Fumarate 25 Mg Tablet) 25 mg PO BID PRN PRN Reason: anxiety/restlessness Last Admin: 06/25/22 12:07 Dose: 25 mg Documented By: NERI Rifaximin (Rifaximin 550 Mg Tablet) 550 mg G-TUBE BID COUNTS INCLUDE 234 BEDS AT THE [facility] Last Admin: 06/25/22 09:17 Dose: 550 mg Documented By: NERI Senna (Sennosides 8.6 Mg Tablet) 8.6 mg G-TUBE DAILY PRN PRN Reason: Constipation Sodium Bicarbonate (Sodium Bicarbonate 650 Mg Tablet) 650 mg G-TUBE TID COUNTS INCLUDE 234 BEDS AT THE [facility] Last Admin: 06/25/22 09:17 Dose: 650 mg Documented By: NERI Sodium Chloride (0.9 % Sodium Chloride Flush 3 Ml Syringe) 3 ml IVFLUSH QSHIFT COUNTS INCLUDE 234 BEDS AT THE [facility] Last Admin: 06/25/22 10:01 Dose: Not Given Documented By: NERI Non-Admin Reason: IV Running Tramadol HCl (Tramadol Hcl 50 Mg Tablet) 50 mg G-TUBE BID ANDREY Last Admin: 06/25/22 09:17 Dose: 50 mg Documented By: NREI Labs CBC & Chem 7: 06/25/22 06:45 06/25/22 06:45 Labs: Laboratory Results - last 24 hr 06/24/22 06/24/22 06/24/22 13:46 16:13 19:47 MCV MCH MCHC RDW Plt Count MPV Immature Gran % (Auto) Neut % (Auto) Lymph % (Auto) [place] % (Auto) Eos % (Auto) Baso % (Auto) Lymph # (Auto) [place] # (Auto) Eos # (Auto) Baso # (Auto) Abs Immat Gran (auto) Absolute Neuts (auto) Absolute Nucleated RBC Nucleated RBC % (auto) Neutrophils % (Manual) Band Neutrophils % Lymphocytes % (Manual) Monocytes % (Manual) Eosinophils % (Manual) Basophils % (Manual) Abs Neuts (Manual) Lymphocytes # (Manual) Monocytes # (Manual) Eosinophils # (Manual) Basophils # (Manual) Platelet Estimate Plt Morphology Comment RBC Morphology Hypochromasia Macrocytosis Tear Drop Cells [place] Cells Schistocytes Absolute Retic Percent Retic Immature Retic Fraction Retic Hgb Equivalent PT INR Anion Gap 18 Estim Creat Clear Calc 31.9 Estimated GFR 22 POC Glucose 139 H 145 H Random Glucose 166 H Calcium 8.2 L Total Bilirubin Direct Bilirubin AST ALT Alkaline Phosphatase B-Natriuretic Peptide Total Protein Albumin 06/25/22 06/25/22 06/25/22 06:45 06:45 06:45 MCV MCH MCHC RDW Plt Count MPV Immature Gran % (Auto) Neut % (Auto) Lymph % (Auto) [place] % (Auto) Eos % (Auto) Baso % (Auto) Lymph # (Auto) [place] # (Auto) Eos # (Auto) Baso # (Auto) Abs Immat Gran (auto) Absolute Neuts (auto) Absolute Nucleated RBC Nucleated RBC % (auto) Neutrophils % (Manual) Band Neutrophils % Lymphocytes % (Manual) Monocytes % (Manual) Eosinophils % (Manual) Basophils % (Manual) Abs Neuts (Manual) Lymphocytes # (Manual) Monocytes # (Manual) Eosinophils # (Manual) Basophils # (Manual) Platelet Estimate Plt Morphology Comment RBC Morphology Hypochromasia Macrocytosis Tear Drop Cells [place] Cells Schistocytes Absolute Retic Percent Retic Immature Retic Fraction Retic Hgb Equivalent PT 14.5 H INR 1.3 H Anion Gap 18 Estim Creat Clear Calc 30.7 Estimated GFR 21 POC Glucose Random Glucose 197 H Calcium 8.2 L Total Bilirubin Direct Bilirubin AST ALT Alkaline Phosphatase B-Natriuretic Peptide 2537 H Total Protein Albumin 06/25/22 06/25/22 06/25/22 06:45 06:45 06:45 MCV 102.6 H MCH 32.5 MCHC 31.7 RDW 20.1 H Plt Count 64 L MPV 12.0 Immature Gran % (Auto) 0.4 Neut % (Auto) 74.2 H Lymph % (Auto) 12.2 L [place] % (Auto) 8.8 Eos % (Auto) 4.2 H Baso % (Auto) 0.2 Lymph # (Auto) 0.6 L [place] # (Auto) 0.4 Eos # (Auto) 0.2 Baso # (Auto) 0.0 Abs Immat Gran (auto) 0.02 Absolute Neuts (auto) 3.7 Absolute Nucleated RBC 0.000 Nucleated RBC % (auto) 0.0 Neutrophils % (Manual) 88 H Band Neutrophils % 0 L Lymphocytes % (Manual) 5 L Monocytes % (Manual) 5 Eosinophils % (Manual) 1 Basophils % (Manual) 1 Abs Neuts (Manual) 4.4 Lymphocytes # (Manual) 0.3 L Monocytes # (Manual) 0.3 Eosinophils # (Manual) 0.1 Basophils # (Manual) 0.1 Platelet Estimate DECREASED Plt Morphology Comment NORMAL RBC Morphology NOTED Hypochromasia 1+ (5-14) Macrocytosis 1+ (5-14) Tear Drop Cells 1+ (0-2) [place] Cells 2+ (3-5) Schistocytes 1+ (0-2) Absolute Retic 0.054 Percent Retic 2.3 H Immature Retic Fraction 14.9 H Retic Hgb Equivalent 29.3 L PT INR Anion Gap Estim Creat Clear Calc Estimated GFR POC Glucose Random Glucose Calcium Total Bilirubin 1.0 Direct Bilirubin 0.7 H AST 21 ALT 6 Alkaline Phosphatase 78 B-Natriuretic Peptide Total Protein 6.0 L Albumin 2.5 L 06/25/22 06/25/22 07:22 11:00 MCV MCH MCHC RDW Plt Count MPV Immature Gran % (Auto) Neut % (Auto) Lymph % (Auto) [place] % (Auto) Eos % (Auto) Baso % (Auto) Lymph # (Auto) [place] # (Auto) Eos # (Auto) Baso # (Auto) Abs Immat Gran (auto) Absolute Neuts (auto) Absolute Nucleated RBC Nucleated RBC % (auto) Neutrophils % (Manual) Band Neutrophils % Lymphocytes % (Manual) Monocytes % (Manual) Eosinophils % (Manual) Basophils % (Manual) Abs Neuts (Manual) Lymphocytes # (Manual) Monocytes # (Manual) Eosinophils # (Manual) Basophils # (Manual) Platelet Estimate Plt Morphology Comment RBC Morphology Hypochromasia Macrocytosis Tear Drop Cells [place] Cells Schistocytes Absolute Retic Percent Retic Immature Retic Fraction Retic Hgb Equivalent PT INR Anion Gap Estim Creat Clear Calc Estimated GFR POC Glucose 196 H 141 H Random Glucose Calcium Total Bilirubin Direct Bilirubin AST ALT Alkaline Phosphatase B-Natriuretic Peptide Total Protein Albumin Assessment and Plan (1) Hyperkalemia: Status: Acute (2) Acute respiratory failure with hypoxia: Status: Acute (3) Hypernatremia: Status: Acute (4) Acute exacerbation of CHF (congestive heart failure): Status: Acute Plan 61-year-old gentleman resident of [facility] with past medical history of chronic kidney disease stage 3, hypertension, schizophrenia, diastolic heart failure with frequent hospitalization was recently discharged from [facility] on 06/16 after being treated for CHF exacerbation encephalopathy, with increasing confusion agitation, followed by an episode of vomiting and aspiration resulting in PE a arrest requiring intubation and admission to ICU, Subsequently required PEG tube placement due to dysphagia, return back to [facility] due to respiratory distress with significant hypoxia of 82-83% on 2 L Acute hypoxic respiratory failure likely secondary to fluid overload from diastolic CHF with acute exacerbation Antibiotics discontinued, No fever or leukocytosis CXR showing any evidence of fluid overload To give a does of Lasix and monitor Wean oxygen as tolerated Hypernatremia Sodium of 141 increase free fluids 300 cc to q4h Discontinue D5W Follow BMP hyperkalemia Potassium of 4.5 nephro following, continue Gtube sodium bicarb follow BMP Toxic metabolic encephalopathy Secondary to electrolyte imbalance, delirium, history schizophrenia Zyprexa as needed Seroquel p.r.n. Correct underlying problems Recurrent orientation Chronic kidney disease stage 3 Creatinine trending up slowly, will continue to monitor Chronic Anemia with elevated MCV suspect related to cirrhosis/splenomegaly/CKD Low iron stores normal B12 folate Continue IV iron Parkinson's disease continue Sinemet Severe oropharyngeal dysphagia continue G-tube feeding VISITOR INFORMATION ASSISTANT team recommended MBBS once the patient mental status improves Diabetes mellitus type 2 follow blood sugars , insulin sliding scale since blood sugars low hold off on Lantus follow blood sugars Cirrhosis continue lactulose History of schizophrenia continue home meds Code status full code as per molst form DVT prophylaxis SCDs reason for continued hospitalization: Electrolyte imbalance, worsening kidney function, altered mentation, needs close monitoring, med and diet titration to prevent possible decompensation Quality Stroke Does the patient have a stroke diagnosis?: No VTE Prior VTE?: No VTE Risk Level:: Medical - moderate - high VTE Device Contraindication: Treatment Not Indicated VTE Drug Contraindication: N/A - Med Ordered
[2022-06-25 15:26] VITALS: BP 127/58; PULSE 59; RESP 18; O2SAT 90
[2022-06-25 15:55] LABS: Glucose, Whole Blood 159 mg/dL (60-115)
[2022-06-25] MEDS: Nystatin Powder 15 GM BOTTLE 1 APPL TOPICAL ×2 (16:15→22:25)
[2022-06-25] MEDS: 0.9 % Sodium Chloride Flush 3 ML SYRINGE IVFLUSH ×2 (17:22→22:25)
--- NOTE | 2022-06-25 19:15 | PC.NURSE ---
Pt output 175 for the day 7a-3p. Pt bladder scan 875ml.José was advance and balloon inflation confirm. Md notified and instructed to remove josé and insert a new josé cath. 16f josé inserted no urine flow, minimal yellow urine in the catheter, repeat bladder scan 900ml. MD and charge nurse notified. MD came to the bedside and stated plan for urologist consult. Per MD josé irrigated with 120ml sterile saline 90ml returned. Next Rn notified
[2022-06-25 20:00] VITALS: BP 140/42; PULSE 66; RESP 16; TEMP 36.2; O2SAT 93
[2022-06-25 20:51] LABS: Glucose, Whole Blood 162 mg/dL (60-115)
[2022-06-25] MEDS: Docusate Sodium 100 MG/10 ML LIQUID G-TUBE (22:24)
[2022-06-25] MEDS: Metoprolol Tartrate 25 MG TABLET G-TUBE (22:25)
[2022-06-25 23:09] VITALS: BP 169/68; PULSE 63; RESP 18; TEMP 36.2; O2SAT 94
[2022-06-26] VITALS (8 sets, daily range): BP systolic 129–168; BP diastolic 47–60; PULSE 57–88; RESP 18–20; TEMP 36.1–39.1; O2SAT 87–98
[2022-06-26] MEDS: Albumin Human 25 % 100 ML IV (03:59)
[2022-06-26] MEDS: Levothyroxine Sodium 25 MCG TABLET G-TUBE (06:27)
[2022-06-26 07:13] LABS: B Type Natriuretic Peptide 2499 pg/mL (<100)
[2022-06-26 07:57] LABS: Anion Gap 17 (12-20); Blood Urea Nitrogen 83 mg/dL (9-16); Calcium 8.2 mg/dL (8.4-10.2); Carbon Dioxide 24 mmol/L (22-29); Chloride 105 mmol/L (96-108); Creatinine Clr Calc Pharmacy 30.2; Estimated Glomerular Filt Rate 21; Glucose Random 161 mg/dL (60-115); Sodium 142 mmol/L (135-145)
[2022-06-26] MEDS: Albuterol/Iprat 2.5/0.5MG 3 ML AMPUL.NEB INHALE ×2 (08:02→13:27)
[2022-06-26 08:09] LABS: Glucose, Whole Blood 155 mg/dL (60-115)
[2022-06-26] MEDS: Insulin Lispro 100 UNIT/ML 3 ML VIAL SUBCUT ×3 (10:13→22:31)
[2022-06-26] MEDS: 0.9 % Sodium Chloride Flush 3 ML SYRINGE IVFLUSH ×2 (10:14→22:32)
[2022-06-26] MEDS: Sodium Bicarbonate 650 MG TABLET G-TUBE ×3 (10:15→22:30)
[2022-06-26] MEDS: Lactulose 20 GM/30 ML SOLUTION G-TUBE (10:15)
[2022-06-26] MEDS: rifAXIMin 550 MG TABLET G-TUBE ×2 (10:15→22:30)
[2022-06-26] MEDS: Gabapentin 300 MG CAPSULE G-TUBE ×3 (10:16→22:30)
[2022-06-26] MEDS: Carbidopa/Levodopa 25/100 TABLET 1 TAB G-TUBE ×4 (10:16→22:30)
[2022-06-26] MEDS: amLODIPine Besylate 10 MG TABLET G-TUBE (10:17)
[2022-06-26] MEDS: Nystatin Powder 15 GM BOTTLE 1 APPL TOPICAL ×2 (10:18→22:31)
[2022-06-26] MEDS: Benztropine Mesylate 1 MG TABLET G-TUBE ×2 (10:18→22:30)
[2022-06-26] MEDS: Metoprolol Tartrate 25 MG TABLET G-TUBE ×2 (10:19→22:30)
--- NOTE | 2022-06-26 10:31 | HO.PM.IMPN ---
Subjective Subjective Date of Service: 06/26/22 Interval History: Seen and evaluated this morning less agitated and restless this morning but still significantly confused kidney function still increasing Weaning oxygen supplement Denies any pain or complaints Difficult night per nursing staff Review of Systems Review of Systems: Yes Unobtainable due to mental status Physical Exam Vital Signs: Vital Signs: Last Vital Signs Temp 97.8 F 06/26/22 07:49 Pulse 63 06/26/22 07:49 Resp 20 06/26/22 07:49 BP 168/57 H 06/26/22 07:49 Pulse Ox 93 06/26/22 07:49 O2 Del Method 06/26/22 07:49 O2 Flow Rate 3 06/26/22 07:49 Oxygen Flow Rate 6 06/20/22 11:59 BMI result Body Mass Index 29.1 Const: Other: Constitutional : Alert with stimulation, restless not in distress Neck : Normal inspection, Supple Cardiovascular : RRR, no JVP, no lower extremity edema Respiratory : fair bilateral air entry, no crackles, wheezes or rhonchi Gastrointestinal: soft, lax, Normal bowel sounds, Non tender Skin : Warm, Dry, ?stage II decubitus ulcer on coccyx, medial right buttock and left buttock Neurological : Alert with stimulation, disoriented, No focal deficit , altered mentation Objective Data Active Medications Albuterol/Ipratropium (Albuterol/Iprat 2.5/0.5mg 3 Ml Ampul.Neb) 3 ml INHALE RQ6H WHILE AWAKE [facility] Last Admin: 06/26/22 08:02 Dose: 3 ml Documented By: SUMMER Albuterol/Ipratropium (Albuterol/Iprat 2.5/0.5mg 3 Ml Ampul.Neb) 3 ml INHALE RQ4H PRN PRN Reason: Shortness of Breath Last Admin: 06/22/22 05:10 Dose: 3 ml Documented By: GARY Amlodipine Besylate (Amlodipine Besylate 10 Mg Tablet) 10 mg G-TUBE DAILY [facility]; Protocol Last Admin: 06/26/22 10:17 Dose: 10 mg Documented By: NERI Benztropine Mesylate (Benztropine Mesylate 1 Mg Tablet) 1 mg G-TUBE BID [facility] Last Admin: 06/26/22 10:18 Dose: 1 mg Documented By: NERI Bisacodyl (Bisacodyl 10 Mg Supp.Rect) 10 mg [place] DAILY PRN PRN Reason: Constipation Carbidopa/Levodopa (Carbidopa/Levodopa 25/100 Tablet) 1 tab G-TUBE QID [facility] Last Admin: 06/26/22 10:16 Dose: 1 tab Documented By: NERI Dextrose (Dextrose 50 % 25 Gm/50 Ml Syringe) 25 gm IVPUSH Q15M PRN; Protocol PRN Reason: per Hypoglycemia Standing Ord. Docusate Sodium (Docusate Sodium 100 Mg/10 Ml Liquid) 100 mg G-TUBE BEDTIME [facility] Last Admin: 06/25/22 22:24 Dose: 100 mg Documented By: SADAF Fluphenazine Decanoate (Fluphenazine Decanoate 25 Mg/Ml 5 Ml Vial) 50 mg IM Q14D [facility] Gabapentin (Gabapentin 300 Mg Capsule) 300 mg G-TUBE TID [facility] Last Admin: 06/26/22 10:16 Dose: 300 mg Documented By: NERI Glucose (Glucose Gel 15 Gm Gel..Gram.) 15 gm PO Q15M PRN; Protocol PRN Reason: per Hypoglycemia Standing Ord. Guaifenesin (Guaifenesin 100 Mg/5 Ml Liquid) 10 ml G-TUBE Q4H PRN PRN Reason: Cough Insulin Human Lispro (Insulin Lispro 100 Unit/Ml 3 Ml Vial) 0 unit SUBCUT QIDACHS [facility]; Protocol Last Admin: 06/26/22 10:13 Dose: 2 unit Documented By: NERI Lactulose (Lactulose 20 Gm/30 Ml Solution) 20 gm G-TUBE DAILY [facility] Last Admin: 06/26/22 10:15 Dose: 20 gm Documented By: NERI Levothyroxine Sodium (Levothyroxine Sodium 25 Mcg Tablet) 25 mcg G-TUBE DAILY@0600 [facility] Last Admin: 06/26/22 06:27 Dose: 25 mcg Documented By: SADAF Metoprolol Tartrate (Metoprolol Tartrate 25 Mg Tablet) 25 mg G-TUBE BID [facility]; Protocol Last Admin: 06/26/22 10:19 Dose: 25 mg Documented By: NERI Nystatin (Nystatin Powder 15 Gm Bottle) 1 appl TOPICAL BID [facility]; Protocol Last Admin: 06/26/22 10:18 Dose: 1 appl Documented By: NERI Olanzapine (Olanzapine 10 Mg Vial) 5 mg IM DAILY PRN PRN Reason: agitation Last Admin: 06/25/22 01:06 Dose: 5 mg Documented By: SADAF Omeprazole (Omeprazole 20 Mg/10 Ml Susp.Recon) 40 mg G-TUBE DAILY@0630 [facility] Last Admin: 06/26/22 06:27 Dose: 40 mg Documented By: SADAF Pharmacy Consult (Consult Rx Vancomycin Dosing) 1 each MISCELLANE DAILY PRN PRN Reason: Consult order Quetiapine Fumarate (Quetiapine Fumarate 25 Mg Tablet) 25 mg PO BID PRN PRN Reason: anxiety/restlessness Last Admin: 06/25/22 12:07 Dose: 25 mg Documented By: NERI Rifaximin (Rifaximin 550 Mg Tablet) 550 mg G-TUBE BID [facility] Last Admin: 06/26/22 10:15 Dose: 550 mg Documented By: NERI Senna (Sennosides 8.6 Mg Tablet) 8.6 mg G-TUBE DAILY PRN PRN Reason: Constipation Sodium Bicarbonate (Sodium Bicarbonate 650 Mg Tablet) 650 mg G-TUBE TID [facility] Last Admin: 06/26/22 10:15 Dose: 650 mg Documented By: NERI Sodium Chloride (0.9 % Sodium Chloride Flush 3 Ml Syringe) 3 ml IVFLUSH QSHIFT [facility] Last Admin: 06/26/22 10:14 Dose: 3 ml Documented By: NERI Labs CBC & Chem 7: 06/25/22 06:45 06/26/22 06:27 Labs: Laboratory Results - last 24 hr 06/25/22 06/25/22 06/25/22 11:00 15:40 20:20 Anion Gap Estim Creat Clear Calc Estimated GFR POC Glucose 141 H 159 H 162 H Random Glucose Calcium B-Natriuretic Peptide 06/26/22 06/26/22 06/26/22 06:27 06:27 07:47 Anion Gap 17 Estim Creat Clear Calc 30.2 Estimated GFR 21 POC Glucose 155 H Random Glucose 161 H Calcium 8.2 L B-Natriuretic Peptide 2499 H Microbiology Microbiology Results: Microbiology 06/20/22 14:33 Blood Culture - Final Blood - Venous No growth after 5 days. 06/20/22 14:33 Blood Culture - Final Blood - Venous No growth after 5 days. Assessment and Plan (1) Hyperkalemia: Status: Acute (2) Acute respiratory failure with hypoxia: Status: Acute (3) Hypernatremia: Status: Acute (4) CKD (chronic kidney disease) stage 3, GFR 30-59 ml/min: Status: Acute Plan 61-year-old gentleman resident of [facility] with past medical history of chronic kidney disease stage 3, hypertension, schizophrenia, diastolic heart failure with frequent hospitalization was recently discharged from [facility] on 06/16 after being treated for CHF exacerbation encephalopathy, with increasing confusion agitation, followed by an episode of vomiting and aspiration resulting in PE a arrest requiring intubation and admission to ICU, Subsequently required PEG tube placement due to dysphagia, return back to [facility] due to respiratory distress with significant hypoxia of 82-83% on 2 L Worsening CKD stage 3 Creatinine up to 3, BUN to 83 has fluid overload. Discuss with nephro monitor I\O and BMP fever Patient spiked fever for the 1st time this afternoon at 01:02 0.3 Recheck CXR, urine blood cultures and lactic acid COVID-19 testing Hold antibiotic and to source of infection identified Acute hypoxic respiratory failure likely secondary to fluid overload from diastolic CHF with acute exacerbation Antibiotics discontinued, No fever or leukocytosis CXR showing any evidence of fluid overload received Lasix Wean oxygen as tolerated Hypernatremia Sodium of 141 free fluids 300 cc to q4h Discontinue D5W Follow BMP hyperkalemia Potassium of 4.1 nephro following, continue Gtube sodium bicarb follow BMP Toxic metabolic encephalopathy Secondary to electrolyte imbalance, delirium, history schizophrenia Zyprexa as needed Seroquel p.r.n. Correct underlying problems Recurrent orientation Chronic Anemia with elevated MCV suspect related to cirrhosis/splenomegaly/CKD Low iron stores normal B12 folate Continue IV iron Parkinson's disease continue Sinemet Severe oropharyngeal dysphagia continue G-tube feeding TRAVEL REGISTERED NURSE NICU team recommended MBBS once the patient mental status improves Diabetes mellitus type 2 follow blood sugars , insulin sliding scale since blood sugars low hold off on Lantus follow blood sugars Cirrhosis continue lactulose History of schizophrenia continue home meds Code status full code as per molst form DVT prophylaxis SCDs reason for continued hospitalization: Electrolyte imbalance, worsening kidney function, altered mentation, needs close monitoring, med and diet titration to prevent possible decompensation Quality Stroke Does the patient have a stroke diagnosis?: No VTE Prior VTE?: No VTE Risk Level:: Medical - moderate - high VTE Device Contraindication: Treatment Not Indicated VTE Drug Contraindication: N/A - Med Ordered
[2022-06-26 11:32] LABS: Glucose, Whole Blood 143 mg/dL (60-115)
--- NOTE | 2022-06-26 12:42 | PM.PNNEP ---
Subjective Subjective Date of Service: 06/27/22 Interval history: Events noted Confused Physical Exam Vital Signs: Vital Signs: Last Vital Signs Temp 98.8 F 06/26/22 11:19 Pulse 88 06/26/22 11:19 Resp 20 06/26/22 11:19 BP 168/57 H 06/26/22 07:49 Pulse Ox 93 06/26/22 07:49 O2 Del Method 06/26/22 07:49 O2 Flow Rate 3 06/26/22 07:49 Oxygen Flow Rate 6 06/20/22 11:59 BMI result Body Mass Index 29.1 Const: Other: General: Awake, alert, no distress,?talking but not making sense Neck no JVD Resp:? Bilateral few expiratory wheeze, no crackles, no accessory muscle use CVS: S1,S2,RRR GI: Abdomen nontender, bruising, +BS, no distention, no guarding no rigidity Skin: No rash, stage II decubiti ulcer on coccyx, medial right buttock and left buttock Neuro:? Moving all 4 extremities Psych: flat Objective Data Labs CBC & Chem 7: 06/27/22 06:13 06/27/22 06:13 Labs: Laboratory Results - last 24 hr 06/25/22 06/25/22 06/26/22 15:40 20:20 06:27 Sodium 142 Potassium 4.0 Chloride 105 Carbon Dioxide 24 Anion Gap 17 BUN 83 H Creatinine 3.02 H Estim Creat Clear Calc 30.2 Estimated GFR 21 POC Glucose 159 H 162 H Random Glucose 161 H Calcium 8.2 L B-Natriuretic Peptide 06/26/22 06/26/22 06/26/22 06:27 07:47 11:18 Sodium Potassium Chloride Carbon Dioxide Anion Gap BUN Creatinine Estim Creat Clear Calc Estimated GFR POC Glucose 155 H 143 H Random Glucose Calcium B-Natriuretic Peptide 2499 H Microbiology Microbiology Results: Microbiology 06/20/22 14:33 Blood - Venous Blood Culture - Final No growth after 5 days. 06/20/22 14:33 Blood - Venous Blood Culture - Final No growth after 5 days. Procedures Date of Service Date of Service: 06/26/22 Assessment & Plan Assessment and plan (1) Acute respiratory failure with hypoxia: Status: Acute Plan Acute hypoxic respiratory failure likely secondary to possible aspiration pneumonia/diastolic CHF with acute exacerbation Hypernatremia improved free water via G tube monitor Hyperkalemia improved from 6.6 to 5.4 after insulin, lasix, and kayexylate Gtube sodium bicarb to correct acidosis monitor Chronic kidney disease stage 3 Superimposed ERNST Possible ATN No need for IVF Chronic Anemia with elevated MCV, recent iron studies within normal range normal B12 folate Will add Epogen Parkinson's disease continue Sinemet Cirrhosis continue lactulose Time Spent With Patient Time: Total time spent is greater than 50% in coordination of care (as documented) at patient's floor/unit and/or counseling patient: Progress Note: Quality Stroke Does the patient have a stroke diagnosis?: No
[2022-06-26 14:15] LABS: COVID-19 Test Negative (Negative)
[2022-06-26 14:44] LABS: Lactic Acid 1.6 mmol/L (0.5-2.0)
[2022-06-26] MEDS: Acetaminophen 325 MG TABLET 650 MG PO (14:51)
[2022-06-26] MEDS: QUEtiapine Fumarate 25 MG TABLET PO (14:52)
[2022-06-26] MEDS: Piperacillin Sodium/Tazobactam 2.25 GM in 0.9 % Sodium Chloride 50 ML IV ×2 (15:24→22:31)
[2022-06-26] MEDS: Sodium Ferric Gluconat/Sucrose 125 MG in 0.9 % Sodium Chloride 100 ML 100 MG IV (15:56)
[2022-06-26 16:39] LABS: Glucose, Whole Blood 169 mg/dL (60-115)
--- NOTE | 2022-06-26 16:45 | PC.NURSE ---
notified of low urine output and possible retention og 944 ml.t, Urology consulted as pt bladder is distended. per urology its just anasarca that the bladder scanner has been picking up.
[2022-06-26 16:47] LABS: Appearance Urine CLEAR; Color Urine YELLOW; Glucose Urine UA NEG (NEG); Leukocyte Esterase Urine 2+ (NEG); Nitrite Urine NEG (NEG); PH 5.5 (5.0-8.0); Specific Gravity - Urine 1.015 (1.005-1.025); UACC Culture Trigger YES; Urine Blood 3+ (NEG); Urine Ketones NEG (NEG); Urine Protein 1+ MG/DL (NEG-TRACE)
[2022-06-26 16:57] LABS: Bacteria Urine TRACE /LPF; Mucus Urine TRACE /LPF; Squamous Epithelial Cell Urine 1+ /LPF; UACC CULT YES
--- NOTE | 2022-06-26 16:59 | PM.UROCN ---
History of Present Illness Consult details Consult date: 06/26/22 Narrative: Asked to review patient for nonfunctioning Ybarra catheter Ybarra catheter in place Ybarra catheter easily flushed PVR had been greater than 999 This is secondary to ascitic fluid from his anasarca Low production of urine is likely secondary to hepatorenal syndrome Review of Systems Constitutional: Constitutional: Reports as per HPI and Reports no additional constitutional complaints Cardiovascular: Cardiovascular: Reports as per HPI and Reports no additional cardiovascular complaints Respiratory: Respiratory: Reports as per HPI and Reports no additional respiratory complaints Gastrointestinal: Gastrointestinal: Reports as per HPI and Reports no additional gastrointestinal complaints Genitourinary: Genitourinary: Reports as per HPI Musculoskeletal: Musculoskeletal: Reports no additional musculoskeletal complaints and Reports as per HPI Neurologic: Reports system reviewed and no additional complaints, except as documented and Reports as per HPI PMFSH Past Medical History Medical History Abnormal findings on diagnostic imaging of liver and biliary tract Acute kidney failure, unspecified Acute respiratory failure with hypoxia Alcohol abuse, uncomplicated Alcoholic cirrhosis of liver with ascites Allergic rhinitis due to pollen Anemia Ataxia Cannabis use, unspecified, uncomplicated Chronic kidney disease, stage 3 unspecified Chronic renal failure CKD (chronic kidney disease) stage 3, GFR 30-59 ml/min Cocaine abuse, uncomplicated Dementia Dementia in other diseases classified elsewhere with behavioral disturbance Diabetes Disorder of urea cycle metabolism, unspecified Drug abuse, cocaine type Dysphagia, oral phase Dysphagia, oropharyngeal phase Essential (primary) hypertension Essential tremor ETOH abuse Hepatic failure, unspecified without coma Hepatomegaly, not elsewhere classified Hereditary and idiopathic neuropathy, unspecified Hereditary ataxia, unspecified Hyperosmolality and hypernatremia Intracranial hemorrhage, subdural Mild cognitive impairment, so stated Muscle weakness (generalized) Myopia, bilateral Orthostatic hypotension Osteophyte, unspecified joint Other chronic allergic conjunctivitis Other lack of coordination Other pancytopenia Other skin changes Other specified eating disorder Other speech disturbances Pain in unspecified shoulder Parkinson disease Pneumonitis due to inhalation of food and vomit Repeated falls Schizophrenia Sepsis, unspecified organism Subdural hematoma Tinea pedis Toxic metabolic encephalopathy Traumatic subdural hemorrhage without loss of consciousness, subsequent encounter Type 2 diabetes mellitus with diabetic polyneuropathy Unspecified dementia with behavioral disturbance Unsteadiness on feet Family History Family History Other Hypertension Social History Social History Household Members: Other Household Members Other:: Other residents Housing: Intermediate Housing Other:: [facility] Do you presently have visiting nurse or other home services: No Unable to assess alcohol history related to: Unknown Alcohol intake: former Patient Tobacco Use Status: Former Tobacco user Tobacco use type: Cigarette Cigarettes Per Day: 1 Second Hand Smoke Exposure: No service: No ([employer]) Current occupational status: disabled Meds Allergies Allergy/AdvReac Type Severity Reaction Status Date / Time pollen extracts Allergy Unknown Verified 03/20/22 13:42 ragweed pollen Allergy Unknown Verified 03/20/22 13:42 Active Medications: Current Medications Acetaminophen (Acetaminophen 325 Mg Tablet) 650 mg PO Q4H PRN PRN Reason: Fever Last Admin: 06/26/22 14:51 Dose: 650 mg Albuterol/Ipratropium (Albuterol/Iprat 2.5/0.5mg 3 Ml Ampul.Neb) 3 ml INHALE RQ6H WHILE AWAKE [facility] Last Admin: 06/26/22 13:27 Dose: 3 ml Albuterol/Ipratropium (Albuterol/Iprat 2.5/0.5mg 3 Ml Ampul.Neb) 3 ml INHALE RQ4H PRN PRN Reason: Shortness of Breath Last Admin: 06/22/22 05:10 Dose: 3 ml Amlodipine Besylate (Amlodipine Besylate 10 Mg Tablet) 10 mg G-TUBE DAILY [facility]; Protocol Last Admin: 06/26/22 10:17 Dose: 10 mg Benztropine Mesylate (Benztropine Mesylate 1 Mg Tablet) 1 mg G-TUBE BID [facility] Last Admin: 06/26/22 10:18 Dose: 1 mg Bisacodyl (Bisacodyl 10 Mg Supp.Rect) 10 mg [place] DAILY PRN PRN Reason: Constipation Carbidopa/Levodopa (Carbidopa/Levodopa 25/100 Tablet) 1 tab G-TUBE QID [facility] Last Admin: 06/26/22 13:21 Dose: 1 tab Dextrose (Dextrose 50 % 25 Gm/50 Ml Syringe) 25 gm IVPUSH Q15M PRN; Protocol PRN Reason: per Hypoglycemia Standing Ord. Docusate Sodium (Docusate Sodium 100 Mg/10 Ml Liquid) 100 mg G-TUBE BEDTIME [facility] Last Admin: 06/25/22 22:24 Dose: 100 mg Fluphenazine Decanoate (Fluphenazine Decanoate 25 Mg/Ml 5 Ml Vial) 50 mg IM Q14D [facility] Gabapentin (Gabapentin 300 Mg Capsule) 300 mg G-TUBE TID [facility] Last Admin: 06/26/22 13:21 Dose: 300 mg Glucose (Glucose Gel 15 Gm Gel..Gram.) 15 gm PO Q15M PRN; Protocol PRN Reason: per Hypoglycemia Standing Ord. Guaifenesin (Guaifenesin 100 Mg/5 Ml Liquid) 10 ml G-TUBE Q4H PRN PRN Reason: Cough Piperacillin Sod/Tazobactam (Sod 2.25 gm/ Sodium Chloride) 50 mls @ 100 mls/hr IV Q6H [facility] Last Infusion: 06/26/22 16:00 Dose: Infused Insulin Human Lispro (Insulin Lispro 100 Unit/Ml 3 Ml Vial) 0 unit SUBCUT QIDACHS [facility]; Protocol Last Admin: 06/26/22 13:10 Dose: Not Given Lactulose (Lactulose 20 Gm/30 Ml Solution) 20 gm G-TUBE DAILY [facility] Last Admin: 06/26/22 10:15 Dose: 20 gm Levothyroxine Sodium (Levothyroxine Sodium 25 Mcg Tablet) 25 mcg G-TUBE DAILY@0600 [facility] Last Admin: 06/26/22 06:27 Dose: 25 mcg Metoprolol Tartrate (Metoprolol Tartrate 25 Mg Tablet) 25 mg G-TUBE BID [facility]; Protocol Last Admin: 06/26/22 10:19 Dose: 25 mg Nystatin (Nystatin Powder 15 Gm Bottle) 1 appl TOPICAL BID [facility]; Protocol Last Admin: 06/26/22 10:18 Dose: 1 appl Olanzapine (Olanzapine 10 Mg Vial) 5 mg IM DAILY PRN PRN Reason: agitation Last Admin: 06/25/22 01:06 Dose: 5 mg Omeprazole (Omeprazole 20 Mg/10 Ml Susp.Recon) 40 mg G-TUBE DAILY@0630 [facility] Last Admin: 06/26/22 06:27 Dose: 40 mg Pharmacy Consult (Consult Rx Vancomycin Dosing) 1 each MISCELLANE DAILY PRN PRN Reason: Consult order Quetiapine Fumarate (Quetiapine Fumarate 25 Mg Tablet) 25 mg PO BID PRN PRN Reason: anxiety/restlessness Last Admin: 06/26/22 14:52 Dose: 25 mg Rifaximin (Rifaximin 550 Mg Tablet) 550 mg G-TUBE BID [facility] Last Admin: 06/26/22 10:15 Dose: 550 mg Senna (Sennosides 8.6 Mg Tablet) 8.6 mg G-TUBE DAILY PRN PRN Reason: Constipation Sodium Bicarbonate (Sodium Bicarbonate 650 Mg Tablet) 650 mg G-TUBE TID [facility] Last Admin: 06/26/22 13:21 Dose: 650 mg Sodium Chloride (0.9 % Sodium Chloride Flush 3 Ml Syringe) [facility] Last Admin: 06/26/22 16:00 Dose: Not Given Home Medications Medication Instructions Recorded Confirmed Last Taken Type benztropine 1 mg tablet 1 mg PO BID 11/18/20 06/20/22 Unknown History carbidopa 25 mg-levodopa 100 mg 1 tab PO QID 11/18/20 06/20/22 Unknown History tablet (Sinemet) fluphenazine decanoate 25 mg/mL 50 mg subcut Q14D 11/18/20 06/20/22 03/16/22 History injection solution miconazole nitrate 2 % topical 1 spray topical BID PRN fungal 11/18/20 06/20/22 Unknown History spray (Lotrimin AF) infection tramadol 50 mg tablet 50 mg PO BID 11/18/20 06/20/22 Unknown History docusate sodium 100 mg tablet 100 mg PO BEDTIME 12/10/20 06/20/22 Unknown History sennosides 8.6 mg tablet (senna) 8.6 mg PO DAILY PRN Constipation 12/10/20 06/20/22 Unknown History levothyroxine 25 mcg tablet 25 mcg PO DAILY@0600 02/19/22 06/20/22 Unknown History multivitamin 1 tab PO DAILY 02/19/22 06/20/22 Unknown History rifaximin 550 mg tablet (Xifaxan) 1 tab PO BID 02/19/22 06/20/22 Unknown History Calazime Skin Protectant 1 applic topical QSHIFT 03/20/22 06/20/22 Unknown History acetaminophen 325 mg tablet 650 mg PO Q4H PRN PAIN/TEMP>100 03/20/22 06/20/22 Unknown History bisacodyl 10 mg rectal suppository 10 mg GA DAILY PRN Constipation 03/20/22 06/20/22 Unknown History guaifenesin 100 mg/5 mL oral liquid 200 mg PO Q4H PRN Cough 03/20/22 06/20/22 Unknown History lactulose 20 gram/30 mL oral 30 ml PO DAILY 03/20/22 06/20/22 Unknown History solution metoprolol tartrate 25 mg tablet 25 mg PO BID 03/20/22 06/20/22 Unknown History gabapentin 300 mg capsule 300 mg PO TID 05/17/22 06/20/22 Unknown History insulin glargine 100 unit/mL (3 20 unit subcut BID 05/17/22 06/20/22 Unknown History mL) subcutaneous pen (Lantus Solostar U-100 Insulin) insulin lispro 100 unit/mL See Protocol subcut QIDACHS 05/17/22 06/20/22 Unknown History subcutaneous pen (Humalog KwikPen (U-100) Insulin) amoxicillin 200 mg-potassium 21.9 ml PO BID 06/20/22 06/20/22 Unknown History clavulanate 28.5 mg/5 mL oral suspension furosemide 20 mg tablet 20 mg PO DAILY 06/20/22 06/20/22 Unknown History Physical Exam Vital Signs: Vital Signs: Last Vital Signs Temp 99.6 F 06/26/22 15:57 Pulse 87 06/26/22 16:00 Resp 18 06/26/22 16:00 BP 140/47 H 06/26/22 16:00 Pulse Ox 98 06/26/22 16:00 O2 Del Method 06/26/22 16:00 O2 Flow Rate 3 06/26/22 16:00 Oxygen Flow Rate 6 06/20/22 11:59 BMI result Body Mass Index 29.1 Const: General: cooperative, healthy appearing, comfortable and no acute distress Orientation/consciousness: patient oriented x3 HEENT: Face and sinus: Yes normal facial exam Mouth: moist mucous membranes Neck: Neck: Yes normal visual inspection, Yes full ROM and Yes trachea midline Chest: Chest palpation & inspection: normal inspection of the chest Resp: Effort & Inspection: normal respiratory effort, able to speak in complete sentences and no respiratory distress GI: Inspection: Yes normal to inspection Back/Spine/Pelvis: Cervical Spine: normal cervical lordosis Thoracic/Lumbar Spine: thoracic and lumbar spine normal to inspection Skin: General skin exam: no rashes or lesions noted Neuro: General: patient oriented x3, tone normal and moves all extremities Extrem: General: Yes normal to inspection and Yes capillary refill normal Results Labs Result diagrams: 06/25/22 06:45 06/26/22 06:27 Labs: Abnormal lab results 06/25/22 06/26/22 06/26/22 Range/Units 20:20 06:27 06:27 BUN 83 H (9-16) mg/dL Creatinine 3.02 H (0.5-1.4) mg/dL POC Glucose 162 H (60-115) mg/dL Random Glucose 161 H (60-115) mg/dL Calcium 8.2 L (8.4-10.2) mg/dL B-Natriuretic Peptide 2499 H (<100) pg/mL Urine Protein (NEG-TRACE) MG/DL Urine Blood (NEG) Ur Leukocyte Esterase (NEG) Urine WBC (0-4) /HPF 06/26/22 06/26/22 06/26/22 Range/Units 07:47 11:18 13:43 BUN (9-16) mg/dL Creatinine (0.5-1.4) mg/dL POC Glucose 155 H 143 H (60-115) mg/dL Random Glucose (60-115) mg/dL Calcium (8.4-10.2) mg/dL B-Natriuretic Peptide (<100) pg/mL Urine Protein 1+ H (NEG-TRACE) MG/DL Urine Blood 3+ H (NEG) Ur Leukocyte Esterase 2+ H (NEG) Urine WBC 5-9 H (0-4) /HPF 06/26/22 Range/Units 16:23 BUN (9-16) mg/dL Creatinine (0.5-1.4) mg/dL POC Glucose 169 H (60-115) mg/dL Random Glucose (60-115) mg/dL Calcium (8.4-10.2) mg/dL B-Natriuretic Peptide (<100) pg/mL Urine Protein (NEG-TRACE) MG/DL Urine Blood (NEG) Ur Leukocyte Esterase (NEG) Urine WBC (0-4) /HPF BMP 06/26/22 06:27 Sodium 142 Potassium 4.0 Chloride 105 Carbon Dioxide 24 BUN 83 H Creatinine 3.02 H Calcium 8.2 L Urine 06/26/22 Range/Units 13:43 Urine Color YELLOW Urine Appearance CLEAR Urine pH 5.5 (5.0-8.0) Ur Specific [place] 1.015 (1.005-1.025) Urine Protein 1+ H (NEG-TRACE) MG/DL Urine Glucose (UA) NEG (NEG) MG/DL All other labs normal. Assessment and Plan (1) Bladder outlet obstruction: Status: Acute Plan continue with drainage Procedures Date of Service Date of Service: 06/26/22
[2022-06-26] MEDS: Furosemide 20 MG/2 ML VIAL IVPUSH (17:10)
[2022-06-26 20:34] LABS: Glucose, Whole Blood 152 mg/dL (60-115)
[2022-06-26] MEDS: Docusate Sodium 100 MG/10 ML LIQUID G-TUBE (22:29)
[2022-06-27] VITALS (7 sets, daily range): BP systolic 107–148; BP diastolic 45–72; PULSE 62–76; RESP 16–20; TEMP 36.6–37.3; O2SAT 93–99
[2022-06-27] MEDS: QUEtiapine Fumarate 25 MG TABLET PO ×2 (01:32→15:46)
[2022-06-27] MEDS: Piperacillin Sodium/Tazobactam 2.25 GM in 0.9 % Sodium Chloride 50 ML IV ×4 (03:20→23:13)
[2022-06-27] MEDS: Levothyroxine Sodium 25 MCG TABLET G-TUBE (05:32)
[2022-06-27 06:38] LABS: Hematocrit 24.5 % (42.0-52.0); Hemoglobin 7.8 g/dl (14.0-18.0); Mean Corpuscular HGB Conc 31.8 g/dl (31.0-36.0); Mean Corpuscular Hemoglobin 32.5 pg (27.0-33.0); Mean Corpuscular Volume 102.1 fL (80.0-98.0); Mean Platelet Volume 12.3 fL (9.4-12.4); Red Cell Distribution Width 19.3 % (11.0-16.0); White Blood Count 7.6 X10*3/uL (4.8-10.8)
[2022-06-27 06:40] LABS: Platelet Count 72 X10*3/uL (160-400)
[2022-06-27 07:26] LABS: Anion Gap 19 (12-20); Blood Urea Nitrogen 92 mg/dL (9-16); Calcium 8.2 mg/dL (8.4-10.2); Carbon Dioxide 23 mmol/L (22-29); Chloride 105 mmol/L (96-108); Creatinine Clr Calc Pharmacy 25.4; Estimated Glomerular Filt Rate 17; Glucose Random 211 mg/dL (60-115); Potassium 4.3 mmol/L (3.3-5.1); Sodium 143 mmol/L (135-145)
[2022-06-27 07:54] LABS: Glucose, Whole Blood 192 mg/dL (60-115)
[2022-06-27] MEDS: Albuterol/Iprat 2.5/0.5MG 3 ML AMPUL.NEB INHALE ×2 (07:59→19:37)
[2022-06-27] MEDS: Insulin Lispro 100 UNIT/ML 3 ML VIAL SUBCUT ×4 (08:36→22:33)
[2022-06-27] MEDS: Gabapentin 300 MG CAPSULE G-TUBE ×3 (08:37→22:32)
[2022-06-27] MEDS: Metoprolol Tartrate 25 MG TABLET G-TUBE ×2 (08:37→22:32)
[2022-06-27] MEDS: amLODIPine Besylate 10 MG TABLET G-TUBE (08:37)
[2022-06-27] MEDS: Sodium Bicarbonate 650 MG TABLET G-TUBE ×3 (08:37→22:32)
[2022-06-27] MEDS: Benztropine Mesylate 1 MG TABLET G-TUBE ×2 (08:37→22:32)
[2022-06-27] MEDS: rifAXIMin 550 MG TABLET G-TUBE ×2 (08:37→22:32)
[2022-06-27] MEDS: Carbidopa/Levodopa 25/100 TABLET 1 TAB G-TUBE ×4 (08:37→22:32)
[2022-06-27] MEDS: Lactulose 20 GM/30 ML SOLUTION G-TUBE (08:38)
[2022-06-27] MEDS: 0.9 % Sodium Chloride Flush 3 ML SYRINGE IVFLUSH ×2 (09:02→15:53)
[2022-06-27] MEDS: Nystatin Powder 15 GM BOTTLE 1 APPL TOPICAL ×2 (09:56→23:13)
[2022-06-27] MEDS: Sodium Chloride 0.45 % 1,000 ML 125 ML IVCONT (09:56)
--- NOTE | 2022-06-27 11:12 | PM.PNNEP ---
Subjective Subjective Date of Service: 06/27/22 Interval history: Events noted Confused Physical Exam Vital Signs: Vital Signs: Last Vital Signs Temp 98.7 F 06/27/22 07:46 Pulse 76 06/27/22 08:03 Resp 20 06/27/22 08:03 BP 139/49 L 06/27/22 07:46 Pulse Ox 97 06/27/22 07:46 O2 Del Method 06/27/22 07:46 O2 Flow Rate 3 06/27/22 07:46 Oxygen Flow Rate 6 06/20/22 11:59 BMI result Body Mass Index 29.1 Const: Other: General: Awake, alert, no distress,?talking but not making sense Neck no JVD Resp:? Bilateral few expiratory wheeze, no crackles, no accessory muscle use CVS: S1,S2,RRR GI: Abdomen nontender, bruising, +BS, no distention, no guarding no rigidity Skin: No rash, stage II decubiti ulcer on coccyx, medial right buttock and left buttock Neuro:? Moving all 4 extremities Psych: flat Objective Data Labs CBC & Chem 7: 06/27/22 06:13 06/27/22 06:13 Labs: Laboratory Results - last 24 hr 06/26/22 06/26/22 06/26/22 11:18 13:43 13:43 WBC RBC Hgb Hct MCV MCH MCHC RDW Plt Count MPV Absolute Nucleated RBC Nucleated RBC % (auto) Sodium Potassium Chloride Carbon Dioxide Anion Gap BUN Creatinine Estim Creat Clear Calc Estimated GFR POC Glucose 143 H Random Glucose Lactic Acid Calcium Urine Color YELLOW Urine Appearance CLEAR Urine pH 5.5 Ur Specific [place] 1.015 Urine Protein 1+ H Urine Glucose (UA) NEG Urine Ketones NEG Urine Blood 3+ H Urine Nitrite NEG Ur Leukocyte Esterase 2+ H Urine RBC 1-4 Urine WBC 5-9 H Ur Squamous Epith Cells 1+ Urine Bacteria TRACE Urine Mucus TRACE COVID-19 (JAS) Negative COVID-19 Clin Com See Note 06/26/22 06/26/22 06/26/22 14:17 16:23 20:28 WBC RBC Hgb Hct MCV MCH MCHC RDW Plt Count MPV Absolute Nucleated RBC Nucleated RBC % (auto) Sodium Potassium Chloride Carbon Dioxide Anion Gap BUN Creatinine Estim Creat Clear Calc Estimated GFR POC Glucose 169 H 152 H Random Glucose Lactic Acid 1.6 Calcium Urine Color Urine Appearance Urine pH Ur Specific [place] Urine Protein Urine Glucose (UA) Urine Ketones Urine Blood Urine Nitrite Ur Leukocyte Esterase Urine RBC Urine WBC Ur Squamous Epith Cells Urine Bacteria Urine Mucus COVID-19 (JAS) COVID-19 [employer] Com 06/27/22 06/27/22 06/27/22 06:13 06:13 07:51 WBC 7.6 RBC 2.40 L Hgb 7.8 L Hct 24.5 L MCV 102.1 H MCH 32.5 MCHC 31.8 RDW 19.3 H Plt Count 72 L MPV 12.3 Absolute Nucleated RBC 0.000 Nucleated RBC % (auto) 0.0 Sodium 143 Potassium 4.3 Chloride 105 Carbon Dioxide 23 Anion Gap 19 BUN 92 H Creatinine 3.60 H Estim Creat Clear Calc 25.4 Estimated GFR 17 POC Glucose 192 H Random Glucose 211 H Lactic Acid Calcium 8.2 L Urine Color Urine Appearance Urine pH Ur Specific [place] Urine Protein Urine Glucose (UA) Urine Ketones Urine Blood Urine Nitrite Ur Leukocyte Esterase Urine RBC Urine WBC Ur Squamous Epith Cells Urine Bacteria Urine Mucus COVID-19 (JAS) COVID-19 Clin Com Microbiology Microbiology Results: Microbiology 06/26/22 16:48 Urine clean catch - Clean Catch Midstream Urine Culture - Preliminary No growth to date. 06/20/22 14:33 Blood - Venous Blood Culture - Final No growth after 5 days. 06/20/22 14:33 Blood - Venous Blood Culture - Final No growth after 5 days. Procedures Date of Service Date of Service: 06/27/22 Assessment & Plan Assessment and plan (1) Acute respiratory failure with hypoxia: Status: Acute Plan Acute hypoxic respiratory failure likely secondary to possible aspiration pneumonia/diastolic CHF with acute exacerbation Hypernatremia improved free water via G tube monitor Hyperkalemia improved from 6.6 to 5.4 after insulin, lasix, and kayexylate Gtube sodium bicarb to correct acidosis monitor Chronic kidney disease stage 3 Superimposed ERNST Vanco level was 21 on 2 On 06/20 he received 1.5 gm IV Vanco Creatinien has been steadily increasing from 1.79 Possible ATN/ Vanco induced tubular injury No absolute indication for dialysis yet Chronic Anemia with elevated MCV, recent iron studies within normal range normal B12 folate Epogen Parkinson's disease continue Sinemet Cirrhosis continue lactulose Time Spent With Patient Time: Total time spent is greater than 50% in coordination of care (as documented) at patient's floor/unit and/or counseling patient: Progress Note: Quality Stroke Does the patient have a stroke diagnosis?: No
[2022-06-27 11:24] LABS: Glucose, Whole Blood 181 mg/dL (60-115)
--- NOTE | 2022-06-27 12:00 | MHC.CM.PN ---
No plan for discharge today. Case management will continue to follow for discharge planning needs.
--- NOTE | 2022-06-27 13:07 | P.PNIM_ITS ---
Subjective Subjective Date of Service: 06/27/22 Interval History: Seen and evaluated this morning less agitated and restless still significantly confused kidney function worsening Weaning oxygen supplement Denies any pain or complaints Review of Systems Review of Systems: Yes Unobtainable due to mental status Physical Exam Vital Signs: Vital Signs: Last Vital Signs Temp 99.2 F 06/27/22 11:27 Pulse 64 06/27/22 11:27 Resp 20 06/27/22 11:27 BP 124/45 L 06/27/22 11:27 Pulse Ox 95 06/27/22 11:27 O2 Del Method 06/27/22 11:27 O2 Flow Rate 3 06/27/22 11:27 Oxygen Flow Rate 6 06/20/22 11:59 BMI result Body Mass Index 29.1 Const: Other: Constitutional : Alert with stimulation, restless not in distress Neck : Normal inspection, Supple Cardiovascular : RRR, no JVP, no lower extremity edema Respiratory : fair bilateral air entry, no crackles, wheezes or rhonchi Gastrointestinal: soft, lax, Normal bowel sounds, Non tender Skin : Warm, Dry, ?stage II decubitus ulcer on coccyx, medial right buttock and left buttock Neurological : Alert with stimulation, disoriented, No focal deficit , altered mentation Objective Data Active Medications Acetaminophen (Acetaminophen 325 Mg Tablet) 650 mg PO Q4H PRN PRN Reason: Fever Last Admin: 06/26/22 14:51 Dose: 650 mg Documented By: NERI Albuterol/Ipratropium (Albuterol/Iprat 2.5/0.5mg 3 Ml Ampul.Neb) 3 ml INHALE RQ6H WHILE AWAKE [facility] Last Admin: 06/27/22 07:59 Dose: 3 ml Documented By: SUMMER Albuterol/Ipratropium (Albuterol/Iprat 2.5/0.5mg 3 Ml Ampul.Neb) 3 ml INHALE RQ4H PRN PRN Reason: Shortness of Breath Last Admin: 06/22/22 05:10 Dose: 3 ml Documented By: GARY Amlodipine Besylate (Amlodipine Besylate 10 Mg Tablet) 10 mg G-TUBE DAILY [facility]; Protocol Last Admin: 06/27/22 08:37 Dose: 10 mg Documented By: LEANNA Benztropine Mesylate (Benztropine Mesylate 1 Mg Tablet) 1 mg G-TUBE BID [facility] Last Admin: 06/27/22 08:37 Dose: 1 mg Documented By: LEANNA Bisacodyl (Bisacodyl 10 Mg Supp.Rect) 10 mg ND DAILY PRN PRN Reason: Constipation Carbidopa/Levodopa (Carbidopa/Levodopa 25/100 Tablet) 1 tab G-TUBE QID [facility] Last Admin: 06/27/22 12:14 Dose: 1 tab Documented By: LEANNA Dextrose (Dextrose 50 % 25 Gm/50 Ml Syringe) 25 gm IVPUSH Q15M PRN; Protocol PRN Reason: per Hypoglycemia Standing Ord. Docusate Sodium (Docusate Sodium 100 Mg/10 Ml Liquid) 100 mg G-TUBE BEDTIME [facility] Last Admin: 06/26/22 22:29 Dose: 100 mg Documented By: ALTAGRACIA Fluphenazine Decanoate (Fluphenazine Decanoate 25 Mg/Ml 5 Ml Vial) 50 mg IM Q14D ANDREY Gabapentin (Gabapentin 300 Mg Capsule) 300 mg G-TUBE TID [facility] Last Admin: 06/27/22 08:37 Dose: 300 mg Documented By: LEANNA Glucose (Glucose Gel 15 Gm Gel..Gram.) 15 gm PO Q15M PRN; Protocol PRN Reason: per Hypoglycemia Standing Ord. Guaifenesin (Guaifenesin 100 Mg/5 Ml Liquid) 10 ml G-TUBE Q4H PRN PRN Reason: Cough Piperacillin Sod/Tazobactam (Sod 2.25 gm/ Sodium Chloride) 50 mls @ 100 mls/hr IV Q6H [facility] Last Infusion: 06/27/22 09:56 Dose: 0 mls/hr Documented By: LEANNA Sodium Chloride () 1,000 mls @ 125 mls/hr IVCONT .Q8H [facility] Last Admin: 06/27/22 09:56 Dose: 125 mls/hr Documented By: LEANNA Insulin Human Lispro (Insulin Lispro 100 Unit/Ml 3 Ml Vial) 0 unit SUBCUT QIDACHS [facility]; Protocol Last Admin: 06/27/22 12:14 Dose: 2 unit Documented By: LEANNA Lactulose (Lactulose 20 Gm/30 Ml Solution) 20 gm G-TUBE DAILY [facility] Last Admin: 06/27/22 08:38 Dose: 20 gm Documented By: LEANNA Levothyroxine Sodium (Levothyroxine Sodium 25 Mcg Tablet) 25 mcg G-TUBE DAILY@0600 [facility] Last Admin: 06/27/22 05:32 Dose: 25 mcg Documented By: GALINA Metoprolol Tartrate (Metoprolol Tartrate 25 Mg Tablet) 25 mg G-TUBE BID [facility]; Protocol Last Admin: 06/27/22 08:37 Dose: 25 mg Documented By: LEANNA Nystatin (Nystatin Powder 15 Gm Bottle) 1 appl TOPICAL BID [facility]; Protocol Last Admin: 06/27/22 09:56 Dose: 1 appl Documented By: LEANNA Olanzapine (Olanzapine 10 Mg Vial) 5 mg IM DAILY PRN PRN Reason: agitation Last Admin: 06/25/22 01:06 Dose: 5 mg Documented By: SADAF Omeprazole (Omeprazole 20 Mg/10 Ml Susp.Recon) 40 mg G-TUBE DAILY@0630 [facility] Last Admin: 06/27/22 05:32 Dose: 40 mg Documented By: GALINA Pharmacy Consult (Consult Rx Vancomycin Dosing) 1 each MISCELLANE DAILY PRN PRN Reason: Consult order Quetiapine Fumarate (Quetiapine Fumarate 25 Mg Tablet) 25 mg PO BID PRN PRN Reason: anxiety/restlessness Last Admin: 06/27/22 01:32 Dose: 25 mg Documented By: GALINA Rifaximin (Rifaximin 550 Mg Tablet) 550 mg G-TUBE BID [facility] Last Admin: 06/27/22 08:37 Dose: 550 mg Documented By: LEANNA Senna (Sennosides 8.6 Mg Tablet) 8.6 mg G-TUBE DAILY PRN PRN Reason: Constipation Sodium Bicarbonate (Sodium Bicarbonate 650 Mg Tablet) 650 mg G-TUBE TID [facility] Last Admin: 06/27/22 08:37 Dose: 650 mg Documented By: LEANNA Sodium Chloride (0.9 % Sodium Chloride Flush 3 Ml Syringe) 3 ml IVFLUSH QSHIFT [facility] Last Admin: 06/27/22 09:02 Dose: 3 ml Documented By: LEANNA Labs CBC & Chem 7: 06/27/22 06:13 06/27/22 06:13 Labs: Laboratory Results - last 24 hr 06/26/22 06/26/22 06/26/22 13:43 13:43 14:17 MCV MCH MCHC RDW Plt Count MPV Absolute Nucleated RBC Nucleated RBC % (auto) Anion Gap Estim Creat Clear Calc Estimated GFR POC Glucose Random Glucose Lactic Acid 1.6 Calcium Urine Color YELLOW Urine Appearance CLEAR Urine pH 5.5 Ur Specific [place] 1.015 Urine Protein 1+ H Urine Glucose (UA) NEG Urine Ketones NEG Urine Blood 3+ H Urine Nitrite NEG Ur Leukocyte Esterase 2+ H Urine RBC 1-4 Urine WBC 5-9 H Ur Squamous Epith Cells 1+ Urine Bacteria TRACE Urine Mucus TRACE COVID-19 (JAS) Negative COVID-19 [facility] Com See Note 06/26/22 06/26/22 06/27/22 16:23 20:28 06:13 MCV 102.1 H MCH 32.5 MCHC 31.8 RDW 19.3 H Plt Count 72 L MPV 12.3 Absolute Nucleated RBC 0.000 Nucleated RBC % (auto) 0.0 Anion Gap Estim Creat Clear Calc Estimated GFR POC Glucose 169 H 152 H Random Glucose Lactic Acid Calcium Urine Color Urine Appearance Urine pH Ur Specific [place] Urine Protein Urine Glucose (UA) Urine Ketones Urine Blood Urine Nitrite Ur Leukocyte Esterase Urine RBC Urine WBC Ur Squamous Epith Cells Urine Bacteria Urine Mucus COVID-19 (JAS) COVID-19 [facility] Com 06/27/22 06/27/22 06/27/22 06:13 07:51 11:20 MCV MCH MCHC RDW Plt Count MPV Absolute Nucleated RBC Nucleated RBC % (auto) Anion Gap 19 Estim Creat Clear Calc 25.4 Estimated GFR 17 POC Glucose 192 H 181 H Random Glucose 211 H Lactic Acid Calcium 8.2 L Urine Color Urine Appearance Urine pH Ur Specific [place] Urine Protein Urine Glucose (UA) Urine Ketones Urine Blood Urine Nitrite Ur Leukocyte Esterase Urine RBC Urine WBC Ur Squamous Epith Cells Urine Bacteria Urine Mucus COVID-19 (JAS) COVID-19 [facility] Com Microbiology Microbiology Results: Microbiology 06/26/22 16:48 Urine Culture - Preliminary Urine clean catch - Clean Catch Midstream No growth to date. Assessment and Plan (1) Acute respiratory failure with hypoxia: Status: Acute (2) Pneumonia: Status: Acute (3) Toxic metabolic encephalopathy: Status: Acute Plan 61-year-old gentleman resident of [facility] with past medical history of chronic kidney disease stage 3, hypertension, schizophrenia, diastolic heart failure with frequent hospitalization was recently discharged from [facility] on 06/16 after being treated for CHF exacerbation encephalopathy, with increasing confusion agitation, followed by an episode of vomiting and aspiration resulting in PE a arrest requiring intubation and admission to ICU, Subsequently required PEG tube placement due to dysphagia, return back to [facility] due to respiratory distress with significant hypoxia of 82-83% on 2 L Jeff I on CKD stage 3 Creatinine up to 3.6 Seems to be secondary to vancomycin induced kidney injury, dehydration Give gentle hydration monitor I\O and BMP Discuss with nephro Pneumonia CXR showed evidence of infiltrates blood cultures pending COVID-19 negative Continue IV Zosyn Acute hypoxic respiratory failure likely secondary to fluid overload from diastolic CHF, pneumonia CXR showing fluid overload and possible pneumonia Hold Lasix Wean oxygen as tolerated Hypernatremia Sodium of 141 free fluids 300 cc to q4h Discontinue D5W Follow BMP hyperkalemia Potassium of 4.1 nephro following, continue Gtube sodium bicarb follow BMP Toxic metabolic encephalopathy Secondary to electrolyte imbalance, delirium, history schizophrenia Zyprexa as needed Seroquel p.r.n. Correct underlying problems Recurrent orientation Chronic Anemia with elevated MCV suspect related to cirrhosis/splenomegaly/CKD Low iron stores normal B12 folate Continue IV iron Parkinson's disease continue Sinemet Severe oropharyngeal dysphagia continue G-tube feeding [employer] team recommended MBBS once the patient mental status improves Diabetes mellitus type 2 follow blood sugars , insulin sliding scale since blood sugars low hold off on Lantus follow blood sugars Cirrhosis continue lactulose History of schizophrenia continue home meds Code status full code as per molst form DVT prophylaxis SCDs reason for continued hospitalization: Hypoxia, pneumonia, worsening kidney function, altered mentation, needs close monitoring, med and diet titration to prevent possible decompensation Quality Stroke Does the patient have a stroke diagnosis?: No VTE Prior VTE?: No VTE Risk Level:: Medical - moderate - high VTE Device Contraindication: Treatment Not Indicated VTE Drug Contraindication: N/A - Med Ordered
--- NOTE | 2022-06-27 13:17 | PM.PNGS ---
Subjective Subjective Date of Service: 06/27/22 Interval history: Asked to see patient regarding leakage from the PEG tube in the mid abdomen. Tube is functioning fine but appears to be leaking around the insertion site. Patient does not appear to be having pain from the tube. Physical Exam Vital Signs: Vital Signs: Last Vital Signs Temp 99.2 F 06/27/22 11:27 Pulse 64 06/27/22 11:27 Resp 20 06/27/22 11:27 BP 124/45 L 06/27/22 11:27 Pulse Ox 95 06/27/22 11:27 O2 Del Method 06/27/22 11:27 O2 Flow Rate 3 06/27/22 11:27 Oxygen Flow Rate 6 06/20/22 11:59 BMI result Body Mass Index 29.1 Const: General: patient obtunded Nutritional Appearance: overweight Orientation/consciousness: patient obtunded Limitations: altered mental status Resp: Effort & Inspection: normal respiratory effort GI: Other: Obese abdomen. Peg tube in place with no surrounding erythema. Serous fluid noted on dressings and abdominal binder. Peg was adjusted and pulled up to approximate the mushroom tip to the abdominal wall. Patient tolerated this well. Tube was watched in the leakage was identified. Tube feeds are flowing easily. Skin: Other: No erythema surrounding the PEG tube. Neuro: General: patient obtunded Objective Data Active Medications Acetaminophen (Acetaminophen 325 Mg Tablet) 650 mg PO Q4H PRN PRN Reason: Fever Last Admin: 06/26/22 14:51 Dose: 650 mg Documented By: NERI Albuterol/Ipratropium (Albuterol/Iprat 2.5/0.5mg 3 Ml Ampul.Neb) 3 ml INHALE RQ6H WHILE AWAKE [facility] Last Admin: 06/27/22 07:59 Dose: 3 ml Documented By: SUMMER Albuterol/Ipratropium (Albuterol/Iprat 2.5/0.5mg 3 Ml Ampul.Neb) 3 ml INHALE RQ4H PRN PRN Reason: Shortness of Breath Last Admin: 06/22/22 05:10 Dose: 3 ml Documented By: GARY Amlodipine Besylate (Amlodipine Besylate 10 Mg Tablet) 10 mg G-TUBE DAILY [facility]; Protocol Last Admin: 06/27/22 08:37 Dose: 10 mg Documented By: HO.WRIGHTS Benztropine Mesylate (Benztropine Mesylate 1 Mg Tablet) 1 mg G-TUBE BID [facility] Last Admin: 06/27/22 08:37 Dose: 1 mg Documented By: LEANNA Bisacodyl (Bisacodyl 10 Mg Supp.Rect) 10 mg [place] DAILY PRN PRN Reason: Constipation Carbidopa/Levodopa (Carbidopa/Levodopa 25/100 Tablet) 1 tab G-TUBE QID [facility] Last Admin: 06/27/22 12:14 Dose: 1 tab Documented By: LEANNA Dextrose (Dextrose 50 % 25 Gm/50 Ml Syringe) 25 gm IVPUSH Q15M PRN; Protocol PRN Reason: per Hypoglycemia Standing Ord. Docusate Sodium (Docusate Sodium 100 Mg/10 Ml Liquid) 100 mg G-TUBE BEDTIME [facility] Last Admin: 06/26/22 22:29 Dose: 100 mg Documented By: ALTAGRACIA Fluphenazine Decanoate (Fluphenazine Decanoate 25 Mg/Ml 5 Ml Vial) 50 mg IM Q14D ANDREY Gabapentin (Gabapentin 300 Mg Capsule) 300 mg G-TUBE TID [facility] Last Admin: 06/27/22 08:37 Dose: 300 mg Documented By: LEANNA Glucose (Glucose Gel 15 Gm Gel..Gram.) 15 gm PO Q15M PRN; Protocol PRN Reason: per Hypoglycemia Standing Ord. Guaifenesin (Guaifenesin 100 Mg/5 Ml Liquid) 10 ml G-TUBE Q4H PRN PRN Reason: Cough Piperacillin Sod/Tazobactam (Sod 2.25 gm/ Sodium Chloride) 50 mls @ 100 mls/hr IV Q6H [facility] Last Infusion: 06/27/22 09:56 Dose: 0 mls/hr Documented By: LEANNA Sodium Chloride () 1,000 mls @ 125 mls/hr IVCONT .Q8H [facility] Last Admin: 06/27/22 09:56 Dose: 125 mls/hr Documented By: LEANNA Insulin Human Lispro (Insulin Lispro 100 Unit/Ml 3 Ml Vial) 0 unit SUBCUT QIDACHS [facility]; Protocol Last Admin: 06/27/22 12:14 Dose: 2 unit Documented By: LEANNA Lactulose (Lactulose 20 Gm/30 Ml Solution) 20 gm G-TUBE DAILY [facility] Last Admin: 06/27/22 08:38 Dose: 20 gm Documented By: LEANNA Levothyroxine Sodium (Levothyroxine Sodium 25 Mcg Tablet) 25 mcg G-TUBE DAILY@0600 [facility] Last Admin: 06/27/22 05:32 Dose: 25 mcg Documented By: GALINA Metoprolol Tartrate (Metoprolol Tartrate 25 Mg Tablet) 25 mg G-TUBE BID [facility]; Protocol Last Admin: 06/27/22 08:37 Dose: 25 mg Documented By: LEANNA Nystatin (Nystatin Powder 15 Gm Bottle) 1 appl TOPICAL BID [facility]; Protocol Last Admin: 06/27/22 09:56 Dose: 1 appl Documented By: LEANNA Olanzapine (Olanzapine 10 Mg Vial) 5 mg IM DAILY PRN PRN Reason: agitation Last Admin: 06/25/22 01:06 Dose: 5 mg Documented By: ASDAF Omeprazole (Omeprazole 20 Mg/10 Ml Susp.Recon) 40 mg G-TUBE DAILY@0630 [facility] Last Admin: 06/27/22 05:32 Dose: 40 mg Documented By: GALINA Pharmacy Consult (Consult Rx Vancomycin Dosing) 1 each MISCELLANE DAILY PRN PRN Reason: Consult order Quetiapine Fumarate (Quetiapine Fumarate 25 Mg Tablet) 25 mg PO BID PRN PRN Reason: anxiety/restlessness Last Admin: 06/27/22 01:32 Dose: 25 mg Documented By: GALINA Rifaximin (Rifaximin 550 Mg Tablet) 550 mg G-TUBE BID [facility] Last Admin: 06/27/22 08:37 Dose: 550 mg Documented By: LEANNA Senna (Sennosides 8.6 Mg Tablet) 8.6 mg G-TUBE DAILY PRN PRN Reason: Constipation Sodium Bicarbonate (Sodium Bicarbonate 650 Mg Tablet) 650 mg G-TUBE TID [facility] Last Admin: 06/27/22 08:37 Dose: 650 mg Documented By: LEANNA Sodium Chloride (0.9 % Sodium Chloride Flush 3 Ml Syringe) 3 ml IVFLUSH QSHIFT [facility] Last Admin: 06/27/22 09:02 Dose: 3 ml Documented By: LEANNA Labs CBC & Chem 7: 06/27/22 06:13 06/27/22 06:13 Labs: Laboratory Results - last 24 hr 06/26/22 06/26/22 06/26/22 13:43 13:43 14:17 MCV MCH MCHC RDW Plt Count MPV Absolute Nucleated RBC Nucleated RBC % (auto) Anion Gap Estim Creat Clear Calc Estimated GFR POC Glucose Random Glucose Lactic Acid 1.6 Calcium Urine Color YELLOW Urine Appearance CLEAR Urine pH 5.5 Ur Specific [place] 1.015 Urine Protein 1+ H Urine Glucose (UA) NEG Urine Ketones NEG Urine Blood 3+ H Urine Nitrite NEG Ur Leukocyte Esterase 2+ H Urine RBC 1-4 Urine WBC 5-9 H Ur Squamous Epith Cells 1+ Urine Bacteria TRACE Urine Mucus TRACE COVID-19 (JAS) Negative COVID-19 Clin Com See Note 06/26/22 06/26/22 06/27/22 16:23 20:28 06:13 MCV 102.1 H MCH 32.5 MCHC 31.8 RDW 19.3 H Plt Count 72 L MPV 12.3 Absolute Nucleated RBC 0.000 Nucleated RBC % (auto) 0.0 Anion Gap Estim Creat Clear Calc Estimated GFR POC Glucose 169 H 152 H Random Glucose Lactic Acid Calcium Urine Color Urine Appearance Urine pH Ur Specific [place] Urine Protein Urine Glucose (UA) Urine Ketones Urine Blood Urine Nitrite Ur Leukocyte Esterase Urine RBC Urine WBC Ur Squamous Epith Cells Urine Bacteria Urine Mucus COVID-19 (JAS) COVID-19 Clin Com 06/27/22 06/27/22 06/27/22 06:13 07:51 11:20 MCV MCH MCHC RDW Plt Count MPV Absolute Nucleated RBC Nucleated RBC % (auto) Anion Gap 19 Estim Creat Clear Calc 25.4 Estimated GFR 17 POC Glucose 192 H 181 H Random Glucose 211 H Lactic Acid Calcium 8.2 L Urine Color Urine Appearance Urine pH Ur Specific [place] Urine Protein Urine Glucose (UA) Urine Ketones Urine Blood Urine Nitrite Ur Leukocyte Esterase Urine RBC Urine WBC Ur Squamous Epith Cells Urine Bacteria Urine Mucus COVID-19 (JAS) COVID-19 Clin Com Microbiology Microbiology Results: Microbiology 06/26/22 16:48 Urine Culture - Preliminary Urine clean catch - Clean Catch Midstream No growth to date. Procedures Date of Service Date of Service: 06/27/22 Progress Note: A&P Assessment and plan (1) Dysphagia, oropharyngeal phase: Status: Acute Plan 61-year-old male patient status post PEG tube placement last week. Tube is functioning well but does have some leakage surrounding the insertion site. Tube was advanced slightly to allow better apposition of the mushroom tip to the abdominal wall. Will continue to monitor leakage from tube site. Time Spent With Patient Time: Total time spent is greater than 50% in coordination of care (as documented) at patient's floor/unit and/or counseling patient: Quality Stroke Does the patient have a stroke diagnosis?: No VTE Prior VTE?: No VTE Risk Level:: Medical - moderate - high VTE Device Contraindication: Treatment Not Indicated VTE Drug Contraindication: N/A - Med Ordered
--- NOTE | 2022-06-27 13:21 | MHC.CLN ---
F/U PT RECEIVING NEPRO AT MAX GOAL RATE 45ML/HR WITH 30ML PROSOURCE Q DAY AND 300ML FREE WATER FLUSHES Q 4 HRS PROVIDES 2004KCALS (23KCALS/KG), 102G PROTEIN (1.17G/KG), 2585ML TOTAL WATER FROM FORMULA AND FLUSHES (30ML/KG) CONTINUE TO MONITOR TOLERANCE, RESIDUALS AND LYTES MD REQUESTED BOLUS TF ORDERS IN PREPARATION FOR DISCHARGE BOLUS: NEPRO 270ML Q 6 HRS (X4 PER DAY) WITH 300ML FREE WATER FLUSHES Q 4 HRS WILL PROVIDE 1944KCALS, 87G PROTEIN, AND 2585ML TOTAL FREE WATER
[2022-06-27 14:53] LABS: Vancomycin Random 9.2 mcg/mL (15-20)
[2022-06-27 15:01] LABS: Anion Gap 17 (12-20); Blood Urea Nitrogen 92 mg/dL (9-16); Carbon Dioxide 23 mmol/L (22-29); Chloride 104 mmol/L (96-108); Creatinine Clr Calc Pharmacy 25.4; Estimated Glomerular Filt Rate 17; Glucose Random 211 mg/dL (60-115); Sodium 140 mmol/L (135-145)
[2022-06-27 15:48] LABS: Glucose, Whole Blood 185 mg/dL (60-115)
--- NOTE | 2022-06-27 18:28 | MHC.SL.SWA ---
Speech Pathologist Impression: Risk of Aspiration Due to: Medically Fragile Neurological Condition History of Pneumonia Reduced Cognition Dysphasia Diet Status: Pt now receiving nutrition via PEG, is NPO. Liquid Consistency and Strategies for Safe Swallow: Liquid Intake Recommendation: NPO Liquid Intake Strategies: Solid Food Consistency: Dietary Recommendations: NPO Additional Modifications to Solid Foods: Given pt's history of dysphagia and aspiration, recommend MBSS to rule in/out aspiration and provide further recommendations. Possible limitation to pt's ability to participate in procedure for MBSS is pt's reslessness and overall mental status. Sent Erin Message to MD, RN, and RD w/ recommendations. Oral Medication Intake: NPO Please contact the pharmacy regarding appropriate crushable or liquid drug formulations that are available whenever modified delivery is recommended. Compensatory Strategies and Precautions to be Taken for Safe Swallow: Supervision While Eating and Drinking for Safe Swallow: PO with AUTO BODY REPAIRER [employer] Foods to Avoid: Swallowing Recommended Treatments: Gustatory Stimulation Compens. Strategy Educat. Recommendation for Speech: Inpatient Speech Therapy Comment: Pt was seen for bedside treatment this afternoon. Pt was awake and lying in bed upon arrival. Clinician assisted pt in sitting upright in bed. Pt was agreeable to PO trials. Pt was provided with oral care using swab and mouthwash. When presented with swab, pt reflexively suckled on swab. Pt was provided with trace amounts of water via swab 3X with no s/s of aspiration. Pt was then presented with trace amounts of water via teaspoon 5X with no s/s of aspiration. When presented with teaspoon, pt formed labial seal with no anterior spillage provided with minimal verbal cues. In only one trial, pt reflexively stuck out tongue to meet teaspoon. Noted 1-2 swallows per teaspoon and delayed swallow. Throughout PO trials, pt put own finger in mouth to suck. Pt was cued by sitter and clinicians to take hands out of mouth and put hands down. Recommend to continue with NPO and referral for MBSS when appropriate. AUTO BODY REPAIRER [employer] will continue to follow. Frequency/Duration: Date Range for Service Req: Timeline to reassess: Chef Kitchen Manager Clinican/Clinical Fellow: Yes: Ladan Delaney M.A., CF-[employer] BODY REPAIR[employer] Supervisory Statement: I have reviewed and agree with the student/clinical fellow's documentation: Yes Speech Language Pathologist: Angella Ernandez M.A., CCC-AUTO BODY REPAIRER [employer]
[2022-06-27] MEDS: Sodium Chloride 0.45 % 1,000 ML 80 ML IVCONT (18:58)
[2022-06-27 19:24] LABS: Glucose, Whole Blood 196 mg/dL (60-115)
[2022-06-27] MEDS: Acetaminophen 325 MG TABLET 650 MG PO (22:32)
[2022-06-27] MEDS: Docusate Sodium 100 MG/10 ML LIQUID G-TUBE (22:32)
[2022-06-28] VITALS (7 sets, daily range): BP systolic 121–150; BP diastolic 54–69; PULSE 64–75; RESP 16–20; TEMP 36.4–37.3; O2SAT 90–98
[2022-06-28] MEDS: QUEtiapine Fumarate 25 MG TABLET PO ×2 (03:16→14:22)
[2022-06-28] MEDS: Piperacillin Sodium/Tazobactam 2.25 GM in 0.9 % Sodium Chloride 50 ML IV ×3 (04:17→14:21)
[2022-06-28] MEDS: OLANZapine 10 MG VIAL 5 MG IM (04:23)
[2022-06-28] MEDS: Levothyroxine Sodium 25 MCG TABLET G-TUBE (06:01)
[2022-06-28 06:21] LABS: Hematocrit 22.7 % (42.0-52.0); Hemoglobin 7.4 g/dl (14.0-18.0); Mean Corpuscular HGB Conc 32.6 g/dl (31.0-36.0); Mean Corpuscular Hemoglobin 32.6 pg (27.0-33.0); Mean Platelet Volume 12.2 fL (9.4-12.4); Platelet Count 64 X10*3/uL (160-400); Red Blood Count 2.27 X10*6/uL (4.60-5.80); Red Cell Distribution Width 19.6 % (11.0-16.0); White Blood Count 6.9 X10*3/uL (4.8-10.8)
[2022-06-28 06:42] LABS: Anion Gap 16 (12-20); Blood Urea Nitrogen 96 mg/dL (9-16); Calcium 7.9 mg/dL (8.4-10.2); Carbon Dioxide 24 mmol/L (22-29); Chloride 102 mmol/L (96-108); Creatinine Clr Calc Pharmacy 24.5; Estimated Glomerular Filt Rate 17; Glucose Random 181 mg/dL (60-115); Sodium 138 mmol/L (135-145)
[2022-06-28 07:35] LABS: Glucose, Whole Blood 172 mg/dL (60-115)
--- NOTE | 2022-06-28 09:26 | PM.PNNEP ---
Subjective Subjective Date of Service: 06/28/22 Interval history: Events noted Vanco level 9.2 ; Last dose was on 06/20/22 ( 7 days ago) !! Physical Exam Vital Signs: Vital Signs: Last Vital Signs Temp 99.0 F 06/28/22 07:18 Pulse 64 06/28/22 07:18 Resp 18 06/28/22 07:18 BP 129/61 06/28/22 07:18 Pulse Ox 97 06/28/22 07:18 O2 Del Method 06/28/22 07:18 O2 Flow Rate 3 06/28/22 07:18 Oxygen Flow Rate 6 06/20/22 11:59 BMI result Body Mass Index 29.1 Const: Other: General: Awake, alert, no distress,?talking but not making sense Neck no JVD Resp:? Bilateral few expiratory wheeze, no crackles, no accessory muscle use CVS: S1,S2,RRR GI: Abdomen nontender, bruising, +BS, no distention, no guarding no rigidity Skin: No rash, stage II decubiti ulcer on coccyx, medial right buttock and left buttock Neuro:? Moving all 4 extremities Psych: flat Objective Data Labs CBC & Chem 7: 06/28/22 05:57 06/28/22 05:57 Labs: Laboratory Results - last 24 hr 06/27/22 06/27/22 06/27/22 11:20 14:18 14:18 WBC RBC Hgb Hct MCV MCH MCHC RDW Plt Count MPV Absolute Nucleated RBC Nucleated RBC % (auto) Sodium 140 Potassium 4.0 Chloride 104 Carbon Dioxide 23 Anion Gap 17 BUN 92 H Creatinine 3.59 H Estim Creat Clear Calc 25.4 Estimated GFR 17 POC Glucose 181 H Random Glucose 211 H Calcium 8.0 L Random Vancomycin 9.2 L 06/27/22 06/27/22 06/28/22 15:34 19:20 05:57 WBC 6.9 RBC 2.27 L Hgb 7.4 L Hct 22.7 L MCV 100.0 H MCH 32.6 MCHC 32.6 RDW 19.6 H Plt Count 64 L MPV 12.2 Absolute Nucleated RBC 0.000 Nucleated RBC % (auto) 0.0 Sodium Potassium Chloride Carbon Dioxide Anion Gap BUN Creatinine Estim Creat Clear Calc Estimated GFR POC Glucose 185 H 196 H Random Glucose Calcium Random Vancomycin 06/28/22 06/28/22 05:57 07:23 WBC RBC Hgb Hct MCV MCH MCHC RDW Plt Count MPV Absolute Nucleated RBC Nucleated RBC % (auto) Sodium 138 Potassium 4.0 Chloride 102 Carbon Dioxide 24 Anion Gap 16 BUN 96 H Creatinine 3.73 H Estim Creat Clear Calc 24.5 Estimated GFR 17 POC Glucose 172 H Random Glucose 181 H Calcium 7.9 L Random Vancomycin Microbiology Microbiology Results: Microbiology 06/26/22 16:48 Urine clean catch - Clean Catch Midstream Urine Culture - Final 06/26/22 15:19 Blood - Venous Blood Culture - Preliminary No growth after 24 hours. 06/26/22 14:17 Blood - Venous Blood Culture - Preliminary No growth after 24 hours. 06/20/22 14:33 Blood - Venous Blood Culture - Final No growth after 5 days. 06/20/22 14:33 Blood - Venous Blood Culture - Final No growth after 5 days. Procedures Date of Service Date of Service: 06/28/22 Assessment & Plan Assessment and plan (1) Acute respiratory failure with hypoxia: Status: Acute Plan Acute hypoxic respiratory failure likely secondary to possible aspiration pneumonia/diastolic CHF with acute exacerbation Hypernatremia improved free water via G tube monitor Hyperkalemia improved from 6.6 to 5.4 after insulin, lasix, and kayexylate Gtube sodium bicarb to correct acidosis monitor Chronic kidney disease stage 3 Superimposed ERNST Vanco level was 21 on 2 On 06/20 he received 1.5 gm IV Vanco Creatinien has been steadily increasing from 1.79 Possible ATN/ Vanco induced tubular injury Low platelets/Anemia- check LDH/Hapto compliments - ordered No absolute indication for dialysis yet Chronic Anemia with elevated MCV, recent iron studies within normal range normal B12 folate Epogen Parkinson's disease continue Sinemet Cirrhosis continue lactulose Time Spent With Patient Time: Total time spent is greater than 50% in coordination of care (as documented) at patient's floor/unit and/or counseling patient: Progress Note: Quality Stroke Does the patient have a stroke diagnosis?: No
[2022-06-28] MEDS: Insulin Lispro 100 UNIT/ML 3 ML VIAL SUBCUT ×3 (10:29→17:05)
[2022-06-28] MEDS: Carbidopa/Levodopa 25/100 TABLET 1 TAB G-TUBE ×3 (10:31→17:04)
[2022-06-28] MEDS: Sodium Bicarbonate 650 MG TABLET G-TUBE ×2 (10:31→14:21)
[2022-06-28] MEDS: Lactulose 20 GM/30 ML SOLUTION G-TUBE (10:32)
[2022-06-28] MEDS: amLODIPine Besylate 10 MG TABLET G-TUBE (10:32)
[2022-06-28] MEDS: Gabapentin 300 MG CAPSULE G-TUBE ×2 (10:32→14:21)
[2022-06-28] MEDS: Metoprolol Tartrate 25 MG TABLET G-TUBE (10:32)
[2022-06-28] MEDS: Benztropine Mesylate 1 MG TABLET G-TUBE (10:32)
[2022-06-28] MEDS: rifAXIMin 550 MG TABLET G-TUBE (10:32)
[2022-06-28] MEDS: Nystatin Powder 15 GM BOTTLE 1 APPL TOPICAL (10:33)
[2022-06-28] MEDS: 0.9 % Sodium Chloride Flush 3 ML SYRINGE IVFLUSH ×2 (10:33→17:02)
--- NOTE | 2022-06-28 10:58 | HO.PM.IMPN ---
Subjective Subjective Date of Service: 06/28/22 Interval History: Seen and evaluated this morning less agitated and restless , confused kidney function worsening with creatinine 3.7 Weaning oxygen supplement Denies any pain or complaints Review of Systems Review of Systems: Yes Unobtainable due to mental status Physical Exam Vital Signs: Vital Signs: Last Vital Signs Temp 99.0 F 06/28/22 07:18 Pulse 64 06/28/22 07:18 Resp 18 06/28/22 07:18 BP 129/61 06/28/22 07:18 Pulse Ox 97 06/28/22 07:18 O2 Del Method 06/28/22 07:18 O2 Flow Rate 3 06/28/22 07:18 Oxygen Flow Rate 6 06/20/22 11:59 BMI result Body Mass Index 29.1 Const: Other: Constitutional : Alert with stimulation, restless not in distress Neck : Normal inspection, Supple Cardiovascular : RRR, no JVP, no lower extremity edema Respiratory : fair bilateral air entry, no crackles, wheezes or rhonchi Gastrointestinal: soft, lax, Normal bowel sounds, Non tender Skin : Warm, Dry, ?stage II decubitus ulcer on coccyx, medial right buttock and left buttock Neurological : Alert with stimulation, disoriented, No focal deficit , altered mentation Objective Data Active Medications Acetaminophen (Acetaminophen 325 Mg Tablet) 650 mg PO Q4H PRN PRN Reason: Fever Last Admin: 06/27/22 22:32 Dose: 650 mg Documented By: ALEX Amlodipine Besylate (Amlodipine Besylate 10 Mg Tablet) 10 mg G-TUBE DAILY [facility]; Protocol Last Admin: 06/28/22 10:32 Dose: 10 mg Documented By: RUBENS Benztropine Mesylate (Benztropine Mesylate 1 Mg Tablet) 1 mg G-TUBE BID [facility] Last Admin: 06/28/22 10:32 Dose: 1 mg Documented By: RUBENS Bisacodyl (Bisacodyl 10 Mg Supp.Rect) 10 mg [place] DAILY PRN PRN Reason: Constipation Carbidopa/Levodopa (Carbidopa/Levodopa 25/100 Tablet) 1 tab G-TUBE QID [facility] Last Admin: 06/28/22 10:31 Dose: 1 tab Documented By: RUBENS Dextrose (Dextrose 50 % 25 Gm/50 Ml Syringe) 25 gm IVPUSH Q15M PRN; Protocol PRN Reason: per Hypoglycemia Standing Ord. Docusate Sodium (Docusate Sodium 100 Mg/10 Ml Liquid) 100 mg G-TUBE BEDTIME [facility] Last Admin: 06/27/22 22:32 Dose: 100 mg Documented By: ALEX Fluphenazine Decanoate (Fluphenazine Decanoate 25 Mg/Ml 5 Ml Vial) 50 mg IM Q14D ANDREY Gabapentin (Gabapentin 300 Mg Capsule) 300 mg G-TUBE TID [facility] Last Admin: 06/28/22 10:32 Dose: 300 mg Documented By: RUBENS Glucose (Glucose Gel 15 Gm Gel..Gram.) 15 gm PO Q15M PRN; Protocol PRN Reason: per Hypoglycemia Standing Ord. Guaifenesin (Guaifenesin 100 Mg/5 Ml Liquid) 10 ml G-TUBE Q4H PRN PRN Reason: Cough Piperacillin Sod/Tazobactam (Sod 2.25 gm/ Sodium Chloride) 50 mls @ 100 mls/hr IV Q6H [facility] Last Admin: 06/28/22 10:23 Dose: 100 mls/hr Documented By: RUBENS Insulin Human Lispro (Insulin Lispro 100 Unit/Ml 3 Ml Vial) 0 unit SUBCUT QIDACHS [facility]; Protocol Last Admin: 06/28/22 10:29 Dose: 2 unit Documented By: RUBENS Lactulose (Lactulose 20 Gm/30 Ml Solution) 20 gm G-TUBE DAILY [facility] Last Admin: 06/28/22 10:32 Dose: 20 gm Documented By: RUBENS Levothyroxine Sodium (Levothyroxine Sodium 25 Mcg Tablet) 25 mcg G-TUBE DAILY@0600 [facility] Last Admin: 06/28/22 06:01 Dose: 25 mcg Documented By: ALEX Metoprolol Tartrate (Metoprolol Tartrate 25 Mg Tablet) 25 mg G-TUBE BID [facility]; Protocol Last Admin: 06/28/22 10:32 Dose: 25 mg Documented By: RUBENS Nystatin (Nystatin Powder 15 Gm Bottle) 1 appl TOPICAL BID [facility]; Protocol Last Admin: 06/28/22 10:33 Dose: 1 appl Documented By: RUBENS Olanzapine (Olanzapine 10 Mg Vial) 5 mg IM DAILY PRN PRN Reason: agitation Last Admin: 06/28/22 04:23 Dose: 5 mg Documented By: ALEX Omeprazole (Omeprazole 20 Mg/10 Ml Susp.Recon) 40 mg G-TUBE DAILY@0630 [facility] Last Admin: 06/28/22 06:01 Dose: 40 mg Documented By: ALEX Pharmacy Consult (Consult Rx Vancomycin Dosing) 1 each MISCELLANE DAILY PRN PRN Reason: Consult order Quetiapine Fumarate (Quetiapine Fumarate 25 Mg Tablet) 25 mg PO BID PRN PRN Reason: anxiety/restlessness Last Admin: 06/28/22 03:16 Dose: 25 mg Documented By: ALEX Rifaximin (Rifaximin 550 Mg Tablet) 550 mg G-TUBE BID [facility] Last Admin: 06/28/22 10:32 Dose: 550 mg Documented By: RUBENS Senna (Sennosides 8.6 Mg Tablet) 8.6 mg G-TUBE DAILY PRN PRN Reason: Constipation Sodium Bicarbonate (Sodium Bicarbonate 650 Mg Tablet) 650 mg G-TUBE TID [facility] Last Admin: 06/28/22 10:31 Dose: 650 mg Documented By: RUBENS Sodium Chloride (0.9 % Sodium Chloride Flush 3 Ml Syringe) 3 ml IVFLUSH QSHIFT [facility] Last Admin: 06/28/22 10:33 Dose: 3 ml Documented By: RUBENS Labs CBC & Chem 7: 06/28/22 05:57 06/28/22 05:57 Labs: Laboratory Results - last 24 hr 06/27/22 06/27/22 06/27/22 11:20 14:18 14:18 MCV MCH MCHC RDW Plt Count MPV Absolute Nucleated RBC Nucleated RBC % (auto) Anion Gap 17 Estim Creat Clear Calc 25.4 Estimated GFR 17 POC Glucose 181 H Random Glucose 211 H Calcium 8.0 L Random Vancomycin 9.2 L 06/27/22 06/27/22 06/28/22 15:34 19:20 05:57 MCV 100.0 H MCH 32.6 MCHC 32.6 RDW 19.6 H Plt Count 64 L MPV 12.2 Absolute Nucleated RBC 0.000 Nucleated RBC % (auto) 0.0 Anion Gap Estim Creat Clear Calc Estimated GFR POC Glucose 185 H 196 H Random Glucose Calcium Random Vancomycin 06/28/22 06/28/22 05:57 07:23 MCV MCH MCHC RDW Plt Count MPV Absolute Nucleated RBC Nucleated RBC % (auto) Anion Gap 16 Estim Creat Clear Calc 24.5 Estimated GFR 17 POC Glucose 172 H Random Glucose 181 H Calcium 7.9 L Random Vancomycin Microbiology Microbiology Results: Microbiology 06/26/22 16:48 Urine Culture - Final Urine clean catch - Clean Catch Midstream 06/26/22 15:19 Blood Culture - Preliminary Blood - Venous No growth after 24 hours. 06/26/22 14:17 Blood Culture - Preliminary Blood - Venous No growth after 24 hours. Assessment and Plan (1) Hyperkalemia: Status: Acute (2) Hypernatremia: Status: Acute (3) Pneumonia: Status: Acute (4) Acute kidney injury superimposed on chronic kidney disease: Status: Acute Plan 61-year-old gentleman resident of [facility] with past medical history of chronic kidney disease stage 3, hypertension, schizophrenia, diastolic heart failure with frequent hospitalization was recently discharged from [facility] on 06/16 after being treated for CHF exacerbation encephalopathy, with increasing confusion agitation, followed by an episode of vomiting and aspiration resulting in PE a arrest requiring intubation and admission to ICU, Subsequently required PEG tube placement due to dysphagia, return back to [facility] due to respiratory distress with significant hypoxia of 82-83% on 2 L [place] on CKD stage 3 Creatinine up to 3.7 with worsening BUN Seems to be secondary to vancomycin induced kidney injury as random vanco of 9 almost 1 week after receiving a dose in the emergency DC IV fluid Check CT scan to rule out any possible obstruction monitor I\O and BMP Discuss with nephro , consider steroid therapy if CT is negative Pneumonia CXR showed evidence of infiltrates blood cultures pending COVID-19 negative Continue IV Zosyn Acute hypoxic respiratory failure likely secondary to fluid overload from diastolic CHF, pneumonia CXR showing fluid overload and possible pneumonia Hold Lasix Wean oxygen as tolerated Hypernatremia Improved free fluids 300 cc to q4h Discontinue D5W Follow BMP hyperkalemia Improved nephro following, continue Gtube sodium bicarb follow BMP Toxic metabolic encephalopathy Secondary to electrolyte imbalance, delirium, history schizophrenia Zyprexa as needed Seroquel p.r.n. Correct underlying problems Recurrent orientation Chronic Anemia with elevated MCV suspect related to cirrhosis/splenomegaly/CKD Low iron stores normal B12 folate Continue IV iron Parkinson's disease continue Sinemet Severe oropharyngeal dysphagia continue G-tube feeding LINES TENDER team recommended MBBS once the patient mental status improves Diabetes mellitus type 2 follow blood sugars , insulin sliding scale since blood sugars low hold off on Lantus follow blood sugars Cirrhosis continue lactulose History of schizophrenia continue home meds Code status full code as per molst form DVT prophylaxis SCDs reason for continued hospitalization: Hypoxia, pneumonia, worsening kidney function, altered mentation, needs close monitoring, med and diet titration to prevent possible decompensation Quality Stroke Does the patient have a stroke diagnosis?: No VTE Prior VTE?: No VTE Risk Level:: Medical - moderate - high VTE Device Contraindication: Treatment Not Indicated VTE Drug Contraindication: N/A - Med Ordered
[2022-06-28 11:39] LABS: Glucose, Whole Blood 153 mg/dL (60-115)
--- NOTE | 2022-06-28 13:58 | MHC.SLORD ---
Speech Language Pathology Order Status: Attempted to see Pt X3, patient deeply asleep all morning. Will continue to follow.
[2022-06-28 16:52] LABS: Glucose, Whole Blood 169 mg/dL (60-115)
[2022-06-28] MEDS: methylPREDNISolone Sod Succ 40 MG/ML VIAL IVPUSH (17:02)
[2022-06-28] MEDS: Albumin Human 25 % 100 ML IV ×2 (17:03→18:09)
--- NOTE | 2022-06-28 18:49 | PM.EVENT ---
Event Note Date of Service: 06/28/22 Event Note: CT of abdomen done in light ERNST to rule obstruction, and free air noted. Patient has no abdominal pain, there is leakage of ascietes around PEG, no surgical abdominal signs, suspect free air related to recent PEG, monitor clinically
--- NOTE | 2022-06-28 19:56 | PC.NURSE ---
Alert and confused. VSS, afebrile, no acute resp. distress noted. Abdomen distented. PEG tube site leakage (100ml), decreased urine output (200ml). Scrotum/penis edema noted. Dr. Plascencia made aware. new order to give solu-medrol and albumin. Seen by Dr. Man this afternoon, no change in plan of care. 1:1 sitter remained at bedside for safety. Will continue to monitor and treat per plan of care.
[2022-06-28 21:06] LABS: Glucose, Whole Blood 170 mg/dL (60-115)
[2022-06-29] MEDS: rifAXIMin 550 MG TABLET G-TUBE ×3 (00:01→21:16)
[2022-06-29] MEDS: Gabapentin 300 MG CAPSULE G-TUBE ×4 (00:01→21:16)
[2022-06-29] MEDS: Nystatin Powder 15 GM BOTTLE 1 APPL TOPICAL ×2 (00:01→10:16)
[2022-06-29] MEDS: QUEtiapine Fumarate 25 MG TABLET PO ×2 (00:01→10:15)
[2022-06-29] MEDS: Piperacillin Sodium/Tazobactam 2.25 GM in 0.9 % Sodium Chloride 50 ML IV ×4 (00:01→18:53)
[2022-06-29] MEDS: 0.9 % Sodium Chloride Flush 3 ML SYRINGE IVFLUSH ×4 (00:02→21:16)
[2022-06-29 03:06] VITALS: BP 142/61; PULSE 64; RESP 18; TEMP 36.8; O2SAT 93
--- NOTE | 2022-06-29 05:15 | PC.NURSE ---
PEG tube site continues to drain ascites and bag began to tear. Amount of drainage unmeasurable. New bag placed at site.
[2022-06-29] MEDS: Levothyroxine Sodium 25 MCG TABLET G-TUBE (06:05)
[2022-06-29 07:01] LABS: Hematocrit 23.6 % (42.0-52.0); Hemoglobin 7.7 g/dl (14.0-18.0); Mean Corpuscular HGB Conc 32.6 g/dl (31.0-36.0); Mean Corpuscular Hemoglobin 32.2 pg (27.0-33.0); Mean Corpuscular Volume 98.7 fL (80.0-98.0); Mean Platelet Volume 12.8 fL (9.4-12.4); Red Blood Count 2.39 X10*6/uL (4.60-5.80); White Blood Count 5.6 X10*3/uL (4.8-10.8)
[2022-06-29 07:15] LABS: Platelet Count 59 X10*3/uL (160-400)
[2022-06-29 07:20] LABS: Anion Gap 19 (12-20); Blood Urea Nitrogen 102 mg/dL (9-16); Carbon Dioxide 22 mmol/L (22-29); Chloride 100 mmol/L (96-108); Creatinine Clr Calc Pharmacy 22.1; Estimated Glomerular Filt Rate 15; Glucose Random 286 mg/dL (60-115); Potassium 4.4 mmol/L (3.3-5.1); Sodium 137 mmol/L (135-145)
[2022-06-29 07:44] VITALS: BP 136/63; PULSE 62; RESP 17; TEMP 36.4; O2SAT 91
[2022-06-29 07:51] LABS: Glucose, Whole Blood 249 mg/dL (60-115)
[2022-06-29] MEDS: Insulin Lispro 100 UNIT/ML 3 ML VIAL SUBCUT ×5 (10:13→21:16)
[2022-06-29] MEDS: Sodium Bicarbonate 650 MG TABLET G-TUBE ×4 (10:14→21:16)
[2022-06-29] MEDS: Lactulose 20 GM/30 ML SOLUTION G-TUBE (10:14)
[2022-06-29] MEDS: amLODIPine Besylate 10 MG TABLET G-TUBE (10:14)
[2022-06-29] MEDS: Benztropine Mesylate 1 MG TABLET G-TUBE ×3 (10:15→21:16)
[2022-06-29] MEDS: Carbidopa/Levodopa 25/100 TABLET 1 TAB G-TUBE ×5 (10:15→21:16)
[2022-06-29] MEDS: Metoprolol Tartrate 25 MG TABLET G-TUBE ×2 (10:15)
[2022-06-29 10:56] VITALS: BP 134/61; PULSE 61; RESP 18; TEMP 36.3; O2SAT 90
--- NOTE | 2022-06-29 11:06 | MHC.SL.DTX ---
Dysphagia Diet modifications: Last documented Solid diet consistencies: NPO Last documented Liquid consistency: NPO Last documented Medication Administration: Changes made to current diet?: No Liquid Consistency and Strategies: Liquid Intake Recommendation: NPO Compensatory Strategies for Safe Swallow: Compensatory Strategies for Safe Swallow(b): Solid Food Consistency: Dietary Recommendations: NPO Additional Modifications to Solids: Given pt's history of dysphagia and aspiration, recommend MBSS to rule in/out aspiration and provide further recommendations. Possible limitation to pt's ability to participate in procedure for MBSS is pt's reslessness and overall mental status. Sent [place] Message to MD, RN, and RD w/ recommendations. Oral Medication Intake: NPO Strategies and Precautions to be Taken for Safe Swallow: Supervision While Eating and/Drinking: PO with LEASING ASSISTANT Foods to Avoid: Swallowing Recommended Treatments: Gustatory Stimulation Compens. Strategy Educat. Level of Impact on: Daily activities: Severe Interpersonal interactions: Education: Employment: Community: Severe Prognosis for Improvement: Poor Recommendation for Speech: Inpatient Speech Therapy Comment: Frequency/Duration: Date Range for Service Req: Timeline to reassess: Additional Comments: Treatment: Pt seen for dysphagia treatment at bedside this morning. Pt's eyes were closed upon arrival and awoke to verbal stimuli. LEASING ASSISTANT assisted pt to sit upright in bed. Sitter was present. Sitter reported that pt requested water. Pt was agreeable to PO trials. Pt was provided with oral care using swab and mouthwash. When presented with swab, pt reflexively suckled on swab. Pt was provided with trace amounts of water via swab 3X with no s/s of aspiration. Pt was then presented with trace amounts of water via teaspoon immediately followed by coughing. Pt reached for full cup of water and requested more water. Pt was given more water via swab with no s/s of aspiration. No change in vocal quality. Pt did not stick out tongue to meet teaspoon or swab in any PO trials. Recommend to continue with NPO and referral for MBSS when appropriate. LEASING ASSISTANT will continue to follow. Assessment: Garden Worker Clinican/Clinical Fellow: Yes: Ladan Delaney M.A., -LEASING ASSISTANT Supervisory Statement: I have reviewed and agree with the student/clinical fellow's documentation: Yes Speech Language Pathologist: Angella Ernandez M.A., [facility]-LEASING ASSISTANT
[2022-06-29 11:16] LABS: Glucose, Whole Blood 255 mg/dL (60-115)
--- NOTE | 2022-06-29 11:31 | PM.PNNEP ---
Subjective Subjective Date of Service: 06/30/22 Interval history: Events noted Physical Exam Vital Signs: Vital Signs: Last Vital Signs Temp 97.4 F 06/29/22 10:56 Pulse 61 06/29/22 10:56 Resp 18 06/29/22 10:56 BP 134/61 06/29/22 10:56 Pulse Ox 90 L 06/29/22 10:56 O2 Del Method 06/29/22 10:56 O2 Flow Rate 2 06/28/22 23:02 Oxygen Flow Rate 6 06/20/22 11:59 BMI result Body Mass Index 29.1 Const: Other: General: Awake, alert, no distress,?talking but not making sense Neck no JVD Resp:? Bilateral few expiratory wheeze, no crackles, no accessory muscle use CVS: S1,S2,RRR GI: Abdomen nontender, bruising, +BS, no distention, no guarding no rigidity Skin: No rash, stage II decubiti ulcer on coccyx, medial right buttock and left buttock Neuro:? Moving all 4 extremities Psych: flat Objective Data Labs CBC & Chem 7: 06/30/22 06:46 06/30/22 06:46 Labs: Laboratory Results - last 24 hr 06/28/22 06/28/22 06/28/22 11:30 16:47 21:03 WBC RBC Hgb Hct MCV MCH MCHC RDW Plt Count MPV Absolute Nucleated RBC Nucleated RBC % (auto) Sodium Potassium Chloride Carbon Dioxide Anion Gap BUN Creatinine Estim Creat Clear Calc Estimated GFR POC Glucose 153 H 169 H 170 H Random Glucose Calcium 06/29/22 06/29/22 06/29/22 06:09 06:09 07:47 WBC 5.6 RBC 2.39 L Hgb 7.7 L Hct 23.6 L MCV 98.7 H MCH 32.2 MCHC 32.6 RDW 19.0 H Plt Count 59 L MPV 12.8 H Absolute Nucleated RBC 0.000 Nucleated RBC % (auto) 0.0 Sodium 137 Potassium 4.4 Chloride 100 Carbon Dioxide 22 Anion Gap 19 BUN 102 H Creatinine 4.12 H* Estim Creat Clear Calc 22.1 Estimated GFR 15 POC Glucose 249 H Random Glucose 286 H D Calcium 8.0 L 06/29/22 10:59 WBC RBC Hgb Hct MCV MCH MCHC RDW Plt Count MPV Absolute Nucleated RBC Nucleated RBC % (auto) Sodium Potassium Chloride Carbon Dioxide Anion Gap BUN Creatinine Estim Creat Clear Calc Estimated GFR POC Glucose 255 H Random Glucose Calcium Microbiology Microbiology Results: Microbiology 06/26/22 15:19 Blood - Venous Blood Culture - Preliminary No growth after 48 hours. 06/26/22 14:17 Blood - Venous Blood Culture - Preliminary No growth after 48 hours. 06/26/22 16:48 Urine clean catch - Clean Catch Midstream Urine Culture - Final 06/20/22 14:33 Blood - Venous Blood Culture - Final No growth after 5 days. 06/20/22 14:33 Blood - Venous Blood Culture - Final No growth after 5 days. Procedures Date of Service Date of Service: 06/29/22 Assessment & Plan Assessment and plan (1) Acute respiratory failure with hypoxia: Status: Acute Plan Acute hypoxic respiratory failure likely secondary to possible aspiration pneumonia/diastolic CHF with acute exacerbation Hypernatremia improved free water via G tube monitor Hyperkalemia improved from 6.6 to 5.4 after insulin, lasix, and kayexylate Gtube sodium bicarb to correct acidosis monitor Chronic kidney disease stage 3 Superimposed ERNST Vanco level was 21 on 2 On 06/20 he received 1.5 gm IV Vanco Creatinien has been steadily increasing from 1.79 ATN/ Vanco induced tubular injury Needs Dialysis discussed with pt and he agress Will arrange for dialysis catheter and start HD Chronic Anemia with elevated MCV, recent iron studies within normal range normal B12 folate Epogen Parkinson's disease continue Sinemet Cirrhosis continue lactulose Time Spent With Patient Time: Total time spent is greater than 50% in coordination of care (as documented) at patient's floor/unit and/or counseling patient: Progress Note: Quality Stroke Does the patient have a stroke diagnosis?: No
--- NOTE | 2022-06-29 12:05 | HO.PM.IMPN ---
Subjective Subjective Date of Service: 06/29/22 Interval History: Seen and evaluated this morning less agitated and restless , confused kidney function worsening with creatinine 4.1 Weaning oxygen supplement Denies any pain or complaints Review of Systems Review of Systems: Yes all other systems are reviewed and are negative Physical Exam Vital Signs: Vital Signs: Last Vital Signs Temp 97.4 F 06/29/22 10:56 Pulse 61 06/29/22 10:56 Resp 18 06/29/22 10:56 BP 134/61 06/29/22 10:56 Pulse Ox 90 L 06/29/22 10:56 O2 Del Method 06/29/22 10:56 O2 Flow Rate 2 06/28/22 23:02 Oxygen Flow Rate 6 06/20/22 11:59 BMI result Body Mass Index 29.1 Const: Other: Constitutional : Alert with stimulation, restless not in distress Neck : Normal inspection, Supple Cardiovascular : RRR, no JVP, no lower extremity edema Respiratory : fair bilateral air entry, no crackles, wheezes or rhonchi Gastrointestinal: soft, lax, Normal bowel sounds, Non tender Skin : Warm, Dry, ?stage II decubitus ulcer on coccyx, medial right buttock and left buttock Neurological : Alert with stimulation, disoriented, No focal deficit , altered mentation Objective Data Active Medications Acetaminophen (Acetaminophen 325 Mg Tablet) 650 mg PO Q4H PRN PRN Reason: Fever Last Admin: 06/27/22 22:32 Dose: 650 mg Documented By: ALEX Amlodipine Besylate (Amlodipine Besylate 10 Mg Tablet) 10 mg G-TUBE DAILY COUNT [facility]CLUDES [facility]; Protocol Last Admin: 06/29/22 10:14 Dose: 10 mg Documented By: RUBENS Benztropine Mesylate (Benztropine Mesylate 1 Mg Tablet) 1 mg G-TUBE BID COUNT INCLUDES [facility] Last Admin: 06/29/22 10:15 Dose: 1 mg Documented By: RUBENS Bisacodyl (Bisacodyl 10 Mg Supp.Rect) 10 mg [place] DAILY PRN PRN Reason: Constipation Carbidopa/Levodopa (Carbidopa/Levodopa 25/100 Tablet) 1 tab G-TUBE QID COUNT INCLUDES [facility] Last Admin: 06/29/22 12:01 Dose: 1 tab Documented By: RUBENS Dextrose (Dextrose 50 % 25 Gm/50 Ml Syringe) 25 gm IVPUSH Q15M PRN; Protocol PRN Reason: per Hypoglycemia Standing Ord. Docusate Sodium (Docusate Sodium 100 Mg/10 Ml Liquid) 100 mg G-TUBE BEDTIME COUNT INCLUDES [facility] Last Admin: 06/29/22 00:00 Dose: 100 mg Documented By: ALEX Fluphenazine Decanoate (Fluphenazine Decanoate 25 Mg/Ml 5 Ml Vial) 50 mg IM Q14D ANDREY Gabapentin (Gabapentin 300 Mg Capsule) 300 mg G-TUBE TID COUNT INCLUDES [facility] Last Admin: 06/29/22 10:15 Dose: 300 mg Documented By: RUBENS Glucose (Glucose Gel 15 Gm Gel..Gram.) 15 gm PO Q15M PRN; Protocol PRN Reason: per Hypoglycemia Standing Ord. Guaifenesin (Guaifenesin 100 Mg/5 Ml Liquid) 10 ml G-TUBE Q4H PRN PRN Reason: Cough Piperacillin Sod/Tazobactam (Sod 2.25 gm/ Sodium Chloride) 50 mls @ 100 mls/hr IV Q6H COUNT INCLUDES THE [facility] Last Infusion: 06/29/22 11:59 Dose: 0 mls/hr Documented By: RUBENS Insulin Human Lispro (Insulin Lispro 100 Unit/Ml 3 Ml Vial) 0 unit SUBCUT QIDACHS COUNT INCLUDES THE [facility]; Protocol Last Admin: 06/29/22 12:00 Dose: 6 unit Documented By: RUBENS Lactulose (Lactulose 20 Gm/30 Ml Solution) 20 gm G-TUBE DAILY COUNT INCLUDES [facility] Last Admin: 06/29/22 10:14 Dose: 20 gm Documented By: RUBENS Levothyroxine Sodium (Levothyroxine Sodium 25 Mcg Tablet) 25 mcg G-TUBE DAILY@0600 COUNT INCLUDES [facility] Last Admin: 06/29/22 06:05 Dose: 25 mcg Documented By: ALEX Metoprolol Tartrate (Metoprolol Tartrate 25 Mg Tablet) 25 mg G-TUBE BID COUNT INCLUDES [facility]; Protocol Last Admin: 06/29/22 10:15 Dose: 25 mg Documented By: RUBENS Nystatin (Nystatin Powder 15 Gm Bottle) 1 appl TOPICAL BID COUNT INCLUDES [facility]; Protocol Last Admin: 06/29/22 10:16 Dose: 1 appl Documented By: RUBENS Olanzapine (Olanzapine 10 Mg Vial) 5 mg IM DAILY PRN PRN Reason: agitation Last Admin: 06/28/22 04:23 Dose: 5 mg Documented By: ALEX Omeprazole (Omeprazole 20 Mg/10 Ml Susp.Recon) 40 mg G-TUBE DAILY@0630 COUNT [facility]CLUDES [facility] Last Admin: 06/29/22 06:05 Dose: 40 mg Documented By: ALEX Pharmacy Consult (Consult Rx Vancomycin Dosing) 1 each MISCELLANE DAILY PRN PRN Reason: Consult order Quetiapine Fumarate (Quetiapine Fumarate 25 Mg Tablet) 25 mg PO BID PRN PRN Reason: anxiety/restlessness Last Admin: 06/29/22 10:15 Dose: 25 mg Documented By: RUBENS Rifaximin (Rifaximin 550 Mg Tablet) 550 mg G-TUBE BID COUNT INCLUDES [facility] Last Admin: 06/29/22 10:15 Dose: 550 mg Documented By: RUBENS Senna (Sennosides 8.6 Mg Tablet) 8.6 mg G-TUBE DAILY PRN PRN Reason: Constipation Sodium Bicarbonate (Sodium Bicarbonate 650 Mg Tablet) 650 mg G-TUBE TID COUNT INCLUDES [facility] Last Admin: 06/29/22 10:14 Dose: 650 mg Documented By: RUBENS Sodium Chloride (0.9 % Sodium Chloride Flush 3 Ml Syringe) 3 ml IVFLUSH QSHIFT COUNT INCLUDES THE [facility] Last Admin: 06/29/22 10:14 Dose: 3 ml Documented By: RUBENS Labs CBC & Chem 7: 06/29/22 06:09 06/29/22 06:09 Labs: Laboratory Results - last 24 hr 06/28/22 06/28/22 06/29/22 16:47 21:03 06:09 MCV 98.7 H MCH 32.2 MCHC 32.6 RDW 19.0 H Plt Count 59 L MPV 12.8 H Absolute Nucleated RBC 0.000 Nucleated RBC % (auto) 0.0 Anion Gap Estim Creat Clear Calc Estimated GFR POC Glucose 169 H 170 H Random Glucose Calcium 06/29/22 06/29/22 06/29/22 06:09 07:47 10:59 MCV MCH MCHC RDW Plt Count MPV Absolute Nucleated RBC Nucleated RBC % (auto) Anion Gap 19 Estim Creat Clear Calc 22.1 Estimated GFR 15 POC Glucose 249 H 255 H Random Glucose 286 H D Calcium 8.0 L Microbiology Microbiology Results: Microbiology 06/26/22 15:19 Blood Culture - Preliminary Blood - Venous No growth after 48 hours. 06/26/22 14:17 Blood Culture - Preliminary Blood - Venous No growth after 48 hours. 06/26/22 16:48 Urine Culture - Final Urine clean catch - Clean Catch Midstream Assessment and Plan (1) Hyperkalemia: Status: Acute (2) Hypernatremia: Status: Acute (3) Acute respiratory failure with hypoxia: Status: Acute (4) Pneumonia: Status: Acute (5) Acute kidney injury superimposed on chronic kidney disease: Status: Acute (6) Acute on chronic diastolic (congestive) heart failure: Status: Acute Plan 61-year-old gentleman resident of [facility] with past medical history of chronic kidney disease stage 3, hypertension, schizophrenia, diastolic heart failure with frequent hospitalization was recently discharged from [facility] on 06/16 after being treated for CHF exacerbation encephalopathy, with increasing confusion agitation, followed by an episode of vomiting and aspiration resulting in PE a arrest requiring intubation and admission to ICU, Subsequently required PEG tube placement due to dysphagia, return back to [facility] due to respiratory distress with significant hypoxia of 82-83% on 2 L Mango on CKD stage 3 Creatinine up to 4 with worsening BUN Seems to be secondary to vancomycin induced kidney injury as random vanco of 9 almost 1 week after receiving a dose in the emergency DC IV fluid Check CT scan showed no obstruction monitor I\O and BMP Discuss with nephro , to place dialysis catheter and start dialysis by tomorrow Pneumonia CXR showed evidence of infiltrates blood cultures negative COVID-19 negative Continue IV Zosyn day 4 Acute hypoxic respiratory failure likely secondary to fluid overload from diastolic CHF, pneumonia and renal failure CXR showing fluid overload and possible pneumonia Hold Lasix Wean oxygen as tolerated Should improve with starting dialysis Hypernatremia Improved free fluids 300 cc to q4h Discontinue D5W Follow BMP hyperkalemia Improved nephro following, continue Gtube sodium bicarb follow BMP Toxic metabolic encephalopathy Secondary to electrolyte imbalance, delirium, history schizophrenia Zyprexa as needed Seroquel p.r.n. 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 MBBS once the patient mental status improves Diabetes mellitus type 2 follow blood sugars , insulin sliding scale since blood sugars low hold off on Lantus follow blood sugars Cirrhosis continue lactulose History of schizophrenia continue home meds Code status full code as per molst form DVT prophylaxis SCDs reason for continued hospitalization: Hypoxia, pneumonia, worsening kidney function, altered mentation, needs close monitoring, med and diet titration with a plan to start dialysis to prevent possible decompensation Quality Stroke Does the patient have a stroke diagnosis?: No VTE Prior VTE?: No VTE Risk Level:: Medical - moderate - high VTE Device Contraindication: Treatment Not Indicated VTE Drug Contraindication: N/A - Med Ordered
--- NOTE | 2022-06-29 13:03 | MHC.CLN ---
F/U BOLUS TF ORDERS IN PREPARATION FOR DISCHARGE PER MD PT RECEIVING BOLUS: NEPRO 270ML Q 6 HRS (X4 PER DAY) WITH 30ML PROSOURCE Q DAY AND 300ML FREE WATER FLUSHES Q 4 HRS PROVIDES 2004KCALS (23KCALS/KG), 102G PROTEIN (1.17G/KG), AND 2585ML TOTAL FREE WATER (30ML/KG) CONTINUE TO MONITOR TOLERANCE, RESIDUALS AND LYTES
--- NOTE | 2022-06-29 15:48 | PC.NURSE ---
Alert and responsive. VSS, afebrile, no acute resp. distress noted. Abdomen remained distended. Patient had a large bowel movement. Seen by burn table operator, new order for IR to place line for dialysis. Left the unit, awaiting return.
[2022-06-29] MEDS: Lidocaine HCl 1 % MPF 5 ML VIAL SUBCUT (16:28)
[2022-06-29 17:50] LABS: Glucose, Whole Blood 212 mg/dL (60-115)
[2022-06-29 20:00] VITALS: BP 137/63; PULSE 61; RESP 18; TEMP 36.3; O2SAT 98
--- NOTE | 2022-06-29 20:07 | PC.NURSE ---
Bronchoscopy completed. VSS, afebrile. Denies pain. Occasional dry cough noted. Remained on precautions. will continue to monitor and treat per plan of care.
--- NOTE | 2022-06-29 20:11 | PC.NURSE ---
Dialysis port placed on the right sided neck. VSS, afebrile, no acute resp. distress noted. No s/sx of hypoglycemia noted. Will continue to monitor and treat per plan of care.
[2022-06-29 20:31] LABS: Glucose, Whole Blood 230 mg/dL (60-115)
[2022-06-29] MEDS: Docusate Sodium 100 MG/10 ML LIQUID G-TUBE ×2 (21:16)
[2022-06-29 23:51] VITALS: BP 138/63; PULSE 62; RESP 18; TEMP 36.7; O2SAT 98
[2022-06-30] MEDS: OLANZapine 10 MG VIAL 5 MG IM (00:20)
[2022-06-30 04:00] VITALS: BP 144/67; PULSE 64; RESP 18; TEMP 36.2; O2SAT 100
[2022-06-30] MEDS: Piperacillin Sodium/Tazobactam 2.25 GM in 0.9 % Sodium Chloride 50 ML IV (04:00)
[2022-06-30] MEDS: Levothyroxine Sodium 25 MCG TABLET G-TUBE (06:23)
[2022-06-30 07:19] VITALS: BP 150/56; PULSE 65; RESP 20; TEMP 36.3; O2SAT 97
[2022-06-30 07:24] LABS: Hematocrit 24.2 % (42.0-52.0); Hemoglobin 7.9 g/dl (14.0-18.0); Mean Corpuscular HGB Conc 32.6 g/dl (31.0-36.0); Mean Corpuscular Hemoglobin 32.1 pg (27.0-33.0); Mean Corpuscular Volume 98.4 fL (80.0-98.0); Mean Platelet Volume 11.7 fL (9.4-12.4); Platelet Count 100 X10*3/uL (160-400); Red Blood Count 2.46 X10*6/uL (4.60-5.80); Red Cell Distribution Width 18.7 % (11.0-16.0); White Blood Count 8.7 X10*3/uL (4.8-10.8)
[2022-06-30 07:28] LABS: INTERNATIONAL NORM RATIO 1.2 (0.9-1.1); Prothrombin Time 14.3 SEC (10.0-13.1)
[2022-06-30 07:39] LABS: Anion Gap 19 (12-20); Blood Urea Nitrogen 112 mg/dL (9-16); Calcium 8.5 mg/dL (8.4-10.2); Carbon Dioxide 23 mmol/L (22-29); Chloride 100 mmol/L (96-108); Estimated Glomerular Filt Rate 13; Glucose Random 272 mg/dL (60-115); Potassium 3.9 mmol/L (3.3-5.1); Sodium 138 mmol/L (135-145)
[2022-06-30] MEDS: Insulin Lispro 100 UNIT/ML 3 ML VIAL SUBCUT ×3 (07:40→16:45)
[2022-06-30 07:51] LABS: Glucose, Whole Blood 243 mg/dL (60-115)
[2022-06-30] MEDS: Metoprolol Tartrate 25 MG TABLET G-TUBE ×2 (08:25→22:06)
[2022-06-30] MEDS: Benztropine Mesylate 1 MG TABLET G-TUBE ×2 (08:25→22:06)
[2022-06-30] MEDS: Carbidopa/Levodopa 25/100 TABLET 1 TAB G-TUBE ×4 (08:25→22:06)
[2022-06-30] MEDS: Nystatin Powder 15 GM BOTTLE 1 APPL TOPICAL (08:26)
[2022-06-30] MEDS: Lactulose 20 GM/30 ML SOLUTION G-TUBE (08:26)
[2022-06-30] MEDS: Sodium Bicarbonate 650 MG TABLET G-TUBE ×2 (08:26→22:06)
[2022-06-30] MEDS: 0.9 % Sodium Chloride Flush 3 ML SYRINGE IVFLUSH ×2 (08:26→16:51)
[2022-06-30] MEDS: amLODIPine Besylate 10 MG TABLET G-TUBE (08:26)
[2022-06-30] MEDS: Gabapentin 300 MG CAPSULE G-TUBE ×2 (08:26→22:06)
[2022-06-30] MEDS: rifAXIMin 550 MG TABLET G-TUBE (08:26)
--- NOTE | 2022-06-30 09:34 | MHC.CM.PN ---
DP return to [facility] via BLS. Patient continues on a 1:1 sitter.
[2022-06-30 10:58] VITALS: BP 145/56; PULSE 60; RESP 20; TEMP 36.1; O2SAT 97
--- NOTE | 2022-06-30 11:23 | P.PNNP_ITS ---
Subjective Subjective Date of Service: 07/04/22 Interval history: Events noted N o improvement in renal funciton Physical Exam Vital Signs: Vital Signs: Last Vital Signs Temp 97.0 F 06/30/22 10:58 Pulse 60 06/30/22 10:58 Resp 20 06/30/22 10:58 BP 145/56 H 06/30/22 10:58 Pulse Ox 97 06/30/22 10:58 O2 Del Method 06/30/22 10:58 O2 Flow Rate 2 06/30/22 10:58 Oxygen Flow Rate 6 06/20/22 11:59 BMI result Body Mass Index 29.1 Const: Other: General: Awake, alert, no distress,?talking but not making sense Neck no JVD Resp:? Bilateral few expiratory wheeze, no crackles, no accessory muscle use CVS: S1,S2,RRR GI: Abdomen nontender, bruising, +BS, no distention, no guarding no rigidity Skin: No rash, stage II decubiti ulcer on coccyx, medial right buttock and left buttock Neuro:? Moving all 4 extremities Psych: flat Objective Data Labs CBC & Chem 7: 07/04/22 06:39 07/04/22 06:39 Labs: Laboratory Results - last 24 hr 06/29/22 06/29/22 06/30/22 17:44 20:22 06:46 WBC 8.7 RBC 2.46 L Hgb 7.9 L Hct 24.2 L MCV 98.4 H MCH 32.1 MCHC 32.6 RDW 18.7 H Plt Count 100 L D MPV 11.7 Absolute Nucleated RBC 0.000 Nucleated RBC % (auto) 0.0 PT INR Sodium Potassium Chloride Carbon Dioxide Anion Gap BUN Creatinine Estim Creat Clear Calc Estimated GFR POC Glucose 212 H 230 H Random Glucose Calcium 06/30/22 06/30/22 06/30/22 06:46 06:46 07:20 WBC RBC Hgb Hct MCV MCH MCHC RDW Plt Count MPV Absolute Nucleated RBC Nucleated RBC % (auto) PT 14.3 H INR 1.2 H Sodium 138 Potassium 3.9 Chloride 100 Carbon Dioxide 23 Anion Gap 19 BUN 112 H Creatinine 4.56 H* Estim Creat Clear Calc 20.0 Estimated GFR 13 POC Glucose 243 H Random Glucose 272 H Calcium 8.5 D Microbiology Microbiology Results: Microbiology 06/26/22 15:19 Blood - Venous Blood Culture - Preliminary No growth after 48 hours. 06/26/22 14:17 Blood - Venous Blood Culture - Preliminary No growth after 48 hours. 06/26/22 16:48 Urine clean catch - Clean Catch Midstream Urine Culture - Fin al 06/20/22 14:33 Blood - Venous Blood Culture - Final No growth after 5 days. 06/20/22 14:33 Blood - Venous Blood Culture - Final No growth after 5 days. Procedures Date of Service Date of Service: 06/30/22 Assessment & Plan Assessment and plan (1) Acute respiratory failure with hypoxia: Status: Acute Plan Acute hypoxic respiratory failure likely secondary to possible aspiration pneumonia/diastolic CHF with acute exacerbation ERNST superimpsoed on Chronic kidney disease stage 3 Vanco level was 21 on 06/14 On 06/20 he received 1.5 gm IV Vanco Creatinine has been steadily increasing from 1.79 ATN/ Vanco induced tubular injury Platelet count isincreasing - chronically low platelets Chronically elevated LDH and in fact recent LDH is lower! Serologies noted. Will arrange for a kidney biopsy Dialysis initated on 06/30/22 discussed with pt and he agress Hypernatremia improved free water via G tube monitor Hyperkalemia improved from 6.6 to 5.4 after insulin, lasix, and kayexylate Gtube sodium bicarb to correct acidosis monitor Chronic Anemia with elevated MCV, recent iron studies within normal range normal B12 folate Epogen Parkinson's disease continue Sinemet Cirrhosis continue lactulose Time Spent With Patient Time: Total time spent is greater than 50% in coordination of care (as documented) at patient's floor/unit and/or counseling patient: Progress Note: Quality Stroke Does the patient have a stroke diagnosis?: No
[2022-06-30 11:28] LABS: Glucose, Whole Blood 216 mg/dL (60-115)
--- NOTE | 2022-06-30 12:05 | HE.PHANOTE ---
Patient currently on Zosyn. Patient is clinically improving; WBC normal, aferbrile. Patient Recommended to de-escalate to Unasyn 3g Q12H due to renal function. Dr. Plascencia agreed, order switched. Windy Morillo, SergoD
[2022-06-30 12:37] LABS: HBS Num1 0.98 mIU/mL (0-7.99); HBc Num1 0.18 S/CO (0.00-0.79); HBsAGNum1 0.23 S/CO (0.00-0.99); Hepatitis B Core Antibody Nonreactive (Nonreactive); Hepatitis B Surface Antigen Negative (Negative); ~Hepatitis B Surface Antibody NONREACTIVE (Nonreactive)
--- NOTE | 2022-06-30 14:13 | HO.PM.IMPN ---
Subjective Subjective Date of Service: 06/30/22 Interval History: Seen and evaluated this morning less agitated and restless , confused , alert to stimulation kidney function worsening with creatinine 4.5 Weaning oxygen supplement Denies any pain or complaints Review of Systems Review of Systems: Yes Unobtainable due to mental status Physical Exam Vital Signs: Vital Signs: Last Vital Signs Temp 97.0 F 06/30/22 10:58 Pulse 60 06/30/22 10:58 Resp 20 06/30/22 10:58 BP 145/56 H 06/30/22 10:58 Pulse Ox 97 06/30/22 10:58 O2 Del Method 06/30/22 10:58 O2 Flow Rate 2 06/30/22 10:58 Oxygen Flow Rate 6 06/20/22 11:59 BMI result Body Mass Index 29.1 Const: Other: Constitutional : Alert with stimulation, restless not in distress Neck : Normal inspection, Supple Cardiovascular : RRR, no JVP, no lower extremity edema Respiratory : fair bilateral air entry, no crackles, wheezes or rhonchi Gastrointestinal: soft, lax, Normal bowel sounds, Non tender Skin : Warm, Dry, ?stage II decubitus ulcer on coccyx, medial right buttock and left buttock Neurological : Alert with stimulation, disoriented, No focal deficit , altered mentation Objective Data Active Medications Acetaminophen (Acetaminophen 325 Mg Tablet) 650 mg PO Q4H PRN PRN Reason: Fever Last Admin: 06/27/22 22:32 Dose: 650 mg Documented By: ALEX Amlodipine Besylate (Amlodipine Besylate 10 Mg Tablet) 10 mg G-TUBE DAILY [facility]; Protocol Last Admin: 06/30/22 08:26 Dose: 10 mg Documented By: LUIS Benztropine Mesylate (Benztropine Mesylate 1 Mg Tablet) 1 mg G-TUBE BID [facility] Last Admin: 06/30/22 08:25 Dose: 1 mg Documented By: LUIS Bisacodyl (Bisacodyl 10 Mg Supp.Rect) 10 mg [place] DAILY PRN PRN Reason: Constipation Carbidopa/Levodopa (Carbidopa/Levodopa 25/100 Tablet) 1 tab G-TUBE QID [facility] Last Admin: 06/30/22 11:45 Dose: 1 tab Documented By: LUIS Dextrose (Dextrose 50 % 25 Gm/50 Ml Syringe) 25 gm IVPUSH Q15M PRN; Protocol PRN Reason: per Hypoglycemia Standing Ord. Docusate Sodium (Docusate Sodium 100 Mg/10 Ml Liquid) 100 mg G-TUBE BEDTIME [facility] Last Admin: 06/29/22 21:16 Dose: 100 mg Documented By: SADAF Fluphenazine Decanoate (Fluphenazine Decanoate 25 Mg/Ml 5 Ml Vial) 50 mg IM Q14D ANDREY Gabapentin (Gabapentin 300 Mg Capsule) 300 mg G-TUBE TID [facility] Last Admin: 06/30/22 08:26 Dose: 300 mg Documented By: LUIS Glucose (Glucose Gel 15 Gm Gel..Gram.) 15 gm PO Q15M PRN; Protocol PRN Reason: per Hypoglycemia Standing Ord. Guaifenesin (Guaifenesin 100 Mg/5 Ml Liquid) 10 ml G-TUBE Q4H PRN PRN Reason: Cough Ampicillin Sodium/Sulbactam (Sodium 3 gm/ Sodium Chloride) 100 mls @ 200 mls/hr IV Q12H [facility] Last Admin: 06/30/22 12:47 Dose: Not Given Documented By: LUIS Non-Admin Reason: No Access Insulin Human Lispro (Insulin Lispro 100 Unit/Ml 3 Ml Vial) 0 unit SUBCUT QIDACHS [facility]; Protocol Last Admin: 06/30/22 11:45 Dose: 4 unit Documented By: LUIS Lactulose (Lactulose 20 Gm/30 Ml Solution) 20 gm G-TUBE DAILY [facility] Last Admin: 06/30/22 08:26 Dose: 20 gm Documented By: LUIS Levothyroxine Sodium (Levothyroxine Sodium 25 Mcg Tablet) 25 mcg G-TUBE DAILY@0600 [facility] Last Admin: 06/30/22 06:23 Dose: 25 mcg Documented By: SADAF Metoprolol Tartrate (Metoprolol Tartrate 25 Mg Tablet) 25 mg G-TUBE BID [facility]; Protocol Last Admin: 06/30/22 08:25 Dose: 25 mg Documented By: LUIS Nystatin (Nystatin Powder 15 Gm Bottle) 1 appl TOPICAL BID [facility]; Protocol Last Admin: 06/30/22 08:26 Dose: 1 appl Documented By: LUIS Olanzapine (Olanzapine 10 Mg Vial) 5 mg IM DAILY PRN PRN Reason: agitation Last Admin: 06/30/22 00:20 Dose: 5 mg Documented By: KAILA Omeprazole (Omeprazole 20 Mg/10 Ml Susp.Recon) 40 mg G-TUBE DAILY@0630 [facility] Last Admin: 06/30/22 06:23 Dose: 40 mg Documented By: SADAF Pharmacy Consult (Consult Rx Vancomycin Dosing) 1 each MISCELLANE DAILY PRN PRN Reason: Consult order Quetiapine Fumarate (Quetiapine Fumarate 25 Mg Tablet) 25 mg PO BID PRN PRN Reason: anxiety/restlessness Last Admin: 06/29/22 10:15 Dose: 25 mg Documented By: RUBENS Rifaximin (Rifaximin 550 Mg Tablet) 550 mg G-TUBE BID [facility] Last Admin: 06/30/22 08:26 Dose: 550 mg Documented By: LUIS Senna (Sennosides 8.6 Mg Tablet) 8.6 mg G-TUBE DAILY PRN PRN Reason: Constipation Sodium Bicarbonate (Sodium Bicarbonate 650 Mg Tablet) 650 mg G-TUBE TID [facility] Last Admin: 06/30/22 08:26 Dose: 650 mg Documented By: LUIS Sodium Chloride (0.9 % Sodium Chloride Flush 3 Ml Syringe) 3 ml IVFLUSH QSHIFT [facility] Last Admin: 06/30/22 08:26 Dose: 3 ml Documented By: LUIS Labs CBC & Chem 7: 06/30/22 06:46 06/30/22 06:46 Labs: Laboratory Results - last 24 hr 06/29/22 06/29/22 06/30/22 17:44 20:22 06:46 MCV 98.4 H MCH 32.1 MCHC 32.6 RDW 18.7 H Plt Count 100 L D MPV 11.7 Absolute Nucleated RBC 0.000 Nucleated RBC % (auto) 0.0 PT INR Anion Gap Estim Creat Clear Calc Estimated GFR POC Glucose 212 H 230 H Random Glucose Calcium Hep Bs Antigen Hep Bs Antibody Hep B Core Total Ab 06/30/22 06/30/22 06/30/22 06:46 06:46 06:46 MCV MCH MCHC RDW Plt Count MPV Absolute Nucleated RBC Nucleated RBC % (auto) PT 14.3 H INR 1.2 H Anion Gap 19 Estim Creat Clear Calc 20.0 Estimated GFR 13 POC Glucose Random Glucose 272 H Calcium 8.5 D Hep Bs Antigen Negative Hep Bs Antibody NONREACTIVE Hep B Core Total Ab Nonreactive 06/30/22 06/30/22 07:20 11:00 MCV MCH MCHC RDW Plt Count MPV Absolute Nucleated RBC Nucleated RBC % (auto) PT INR Anion Gap Estim Creat Clear Calc Estimated GFR POC Glucose 243 H 216 H Random Glucose Calcium Hep Bs Antigen Hep Bs Antibody Hep B Core Total Ab Assessment and Plan (1) Acute kidney injury superimposed on chronic kidney disease: Status: Acute (2) Acute respiratory failure with hypoxia: Status: Acute (3) Pneumonia: Status: Acute (4) Dysphagia, oropharyngeal phase: Status: Acute Plan 61-year-old gentleman resident of [facility] with past medical history of chronic kidney disease stage 3, hypertension, schizophrenia, diastolic heart failure with frequent hospitalization was recently discharged from [facility] on 06/16 after being treated for CHF exacerbation encephalopathy, with increasing confusion agitation, followed by an episode of vomiting and aspiration resulting in PE a arrest requiring intubation and admission to ICU, Subsequently required PEG tube placement due to dysphagia, return back to [facility] due to respiratory distress with significant hypoxia of 82-83% on 2 L Mango on CKD stage 3 Creatinine up to 4.5 with worsening BUN Seems to be secondary to vancomycin induced kidney injury as random vanco of 9 almost 1 week after receiving a dose in the emergency, RPGN? DC IV fluid CT scan showed no obstruction monitor I\O and BMP Temporary dialysis catheter placed Discuss with nephro , start dialysis and to kidney biopsy Plan for kidney biopsy tomorrow morning Pneumonia CXR showed evidence of infiltrates blood cultures negative COVID-19 negative Change Zosyn to Unasyn, day 5 total antibiotics Acute hypoxic respiratory failure likely secondary to fluid overload from diastolic CHF, pneumonia and renal failure CXR showing fluid overload and possible pneumonia Hold Lasix Wean oxygen as tolerated Should improve with starting dialysis Hypernatremia Improved free fluids 300 cc to q4h Discontinue D5W Follow BMP hyperkalemia Improved nephro following, continue Gtube sodium bicarb follow BMP Toxic metabolic encephalopathy Secondary to electrolyte imbalance, delirium, history schizophrenia Zyprexa as needed Seroquel p.r.n. 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 once the patient mental status improves Diabetes mellitus type 2 follow blood sugars , insulin sliding scale since blood sugars low hold off on Lantus follow blood sugars Cirrhosis continue lactulose History of schizophrenia continue home meds Code status full code as per molst form DVT prophylaxis SCDs reason for continued hospitalization: Hypoxia, pneumonia, worsening kidney function, altered mentation, needs close monitoring, med and diet titration with a plan to start dialysis to prevent possible decompensation Quality Stroke Does the patient have a stroke diagnosis?: No VTE Prior VTE?: No VTE Risk Level:: Medical - moderate - high VTE Device Contraindication: Treatment Not Indicated VTE Drug Contraindication: N/A - Med Ordered
[2022-06-30] MEDS: MannitoL 12.5 GM/50 ML VIAL IV (15:25)
[2022-06-30 16:00] VITALS: BP 153/50; PULSE 73; RESP 17; TEMP 36.1; O2SAT 96
[2022-06-30 16:31] LABS: Glucose, Whole Blood 157 mg/dL (60-115)
[2022-06-30 19:32] VITALS: BP 141/56; PULSE 68; RESP 18; TEMP 36.1; O2SAT 97
[2022-06-30 19:41] LABS: Glucose, Whole Blood 152 mg/dL (60-115)
[2022-06-30] MEDS: Docusate Sodium 100 MG/10 ML LIQUID G-TUBE (22:06)
[2022-06-30] MEDS: QUEtiapine Fumarate 25 MG TABLET PO (22:06)
[2022-06-30 23:12] VITALS: BP 142/73; PULSE 71; RESP 20; TEMP 36.2; O2SAT 95
[2022-07-01] MEDS: OLANZapine 10 MG VIAL 5 MG IM (02:14)
[2022-07-01 03:15] VITALS: PULSE 65; RESP 18; TEMP 36.1; O2SAT 90
[2022-07-01] MEDS: Levothyroxine Sodium 25 MCG TABLET G-TUBE (05:48)
[2022-07-01] MEDS: QUEtiapine Fumarate 25 MG TABLET PO ×2 (05:58→21:52)
[2022-07-01 06:27] LABS: Hematocrit 24.8 % (42.0-52.0); Hemoglobin 8.2 g/dl (14.0-18.0); Mean Corpuscular HGB Conc 33.1 g/dl (31.0-36.0); Mean Corpuscular Hemoglobin 31.9 pg (27.0-33.0); Mean Corpuscular Volume 96.5 fL (80.0-98.0); Mean Platelet Volume 11.8 fL (9.4-12.4); Red Blood Count 2.57 X10*6/uL (4.60-5.80); Red Cell Distribution Width 18.1 % (11.0-16.0)
[2022-07-01 06:31] LABS: Platelet Count 81 X10*3/uL (160-400); White Blood Count 2.2 X10*3/uL (4.8-10.8)
[2022-07-01 06:38] LABS: INTERNATIONAL NORM RATIO 1.4 (0.9-1.1); Prothrombin Time 15.8 SEC (10.0-13.1)
[2022-07-01 06:56] LABS: Anion Gap 16 (12-20); Blood Urea Nitrogen 79 mg/dL (9-16); Calcium 7.7 mg/dL (8.4-10.2); Carbon Dioxide 23 mmol/L (22-29); Chloride 100 mmol/L (96-108); Creatinine Clr Calc Pharmacy 26.8; Estimated Glomerular Filt Rate 18; Glucose Random 142 mg/dL (60-115); Potassium 3.6 mmol/L (3.3-5.1); Sodium 135 mmol/L (135-145)
[2022-07-01 10:18] VITALS: BP 117/59; PULSE 64; RESP 20; TEMP 36.4; O2SAT 94
[2022-07-01 10:20] LABS: Glucose, Whole Blood 111 mg/dL (60-115)
--- NOTE | 2022-07-01 10:37 | MHC.SLORD ---
Speech Language Pathology Order Status: Per chart review MD note 06/30 pt was to have kidney biopsy today, NPO for this therefore no PO trials given. Pt has been NPO w/ feedings via PEG tube. Continue to recommend MBSS given pt's history of aspiration and dysphagia. Discussed w/ MD this date. Per MD, pt not yet ready for MBSS d/t mentation, will continue to monitor. Recommend continue ST at next level of care.
[2022-07-01] MEDS: Carbidopa/Levodopa 25/100 TABLET 1 TAB G-TUBE ×4 (10:39→21:52)
[2022-07-01] MEDS: Sodium Bicarbonate 650 MG TABLET G-TUBE ×3 (10:39→21:52)
[2022-07-01] MEDS: Gabapentin 300 MG CAPSULE G-TUBE ×3 (10:39→21:52)
[2022-07-01] MEDS: Metoprolol Tartrate 25 MG TABLET G-TUBE ×2 (10:39→21:52)
[2022-07-01] MEDS: amLODIPine Besylate 10 MG TABLET G-TUBE (10:39)
[2022-07-01] MEDS: Lactulose 20 GM/30 ML SOLUTION G-TUBE (10:39)
[2022-07-01] MEDS: Benztropine Mesylate 1 MG TABLET G-TUBE ×2 (10:40→21:52)
[2022-07-01] MEDS: Nystatin Powder 15 GM BOTTLE 1 APPL TOPICAL ×2 (10:41→22:07)
[2022-07-01 11:21] VITALS: BP 106/80; PULSE 63; RESP 20; TEMP 36.7; O2SAT 97
--- NOTE | 2022-07-01 11:30 | P.PNIM_ITS ---
Subjective Subjective Date of Service: 07/01/22 Interval History: cc: hypoxia interval history:agitated during HD Cardiovascular Cardiovascular: Reports no additional cardiovascular complaints Respiratory Respiratory: Reports no additional respiratory complaints Physical Exam Vital Signs: Vital Signs: Last Vital Signs Temp 98.0 F 07/01/22 11:21 Pulse 63 07/01/22 11:21 Resp 20 07/01/22 11:21 BP 106/80 07/01/22 11:21 Pulse Ox 97 07/01/22 11:21 O2 Del Method 07/01/22 11:21 O2 Flow Rate 1 07/01/22 11:21 Oxygen Flow Rate 6 06/20/22 11:59 BMI result Body Mass Index 29.1 Const: Other: Constitutional : Alert with stimulation, restless not in distress Neck : Normal inspection, Supple Cardiovascular : RRR, no JVP, no lower extremity edema Respiratory : fair bilateral air entry, no crackles, wheezes or rhonchi Gastrointestinal: soft, lax, Normal bowel sounds, Non tender Skin : Warm, Dry, ?stage II decubitus ulcer on coccyx, medial right buttock and left buttock Neurological : Alert with stimulation, disoriented, No focal deficit , altered mentation Objective Data Active Medications Acetaminophen (Acetaminophen 325 Mg Tablet) 650 mg PO Q4H PRN PRN Reason: Fever Last Admin: 06/27/22 22:32 Dose: 650 mg Documented By: ALEX Amlodipine Besylate (Amlodipine Besylate 10 Mg Tablet) 10 mg G-TUBE DAILY REPLACED BY [facility]; Protocol Last Admin: 07/01/22 10:39 Dose: 10 mg Documented By: LUIS Benztropine Mesylate (Benztropine Mesylate 1 Mg Tablet) 1 mg G-TUBE BID REPLACED BY [facility] Last Admin: 07/01/22 10:40 Dose: 1 mg Documented By: LUIS Bisacodyl (Bisacodyl 10 Mg Supp.Rect) 10 mg ND DAILY PRN PRN Reason: Constipation Carbidopa/Levodopa (Carbidopa/Levodopa 25/100 Tablet) 1 tab G-TUBE QID REPLACED BY [facility] Last Admin: 07/01/22 10:39 Dose: 1 tab Documented By: LUIS Dextrose (Dextrose 50 % 25 Gm/50 Ml Syringe) 25 gm IVPUSH Q15M PRN; Protocol PRN Reason: per Hypoglycemia Standing Ord. Docusate Sodium (Docusate Sodium 100 Mg/10 Ml Liquid) 100 mg G-TUBE BEDTIME REPLACED BY [facility] Last Admin: 06/30/22 22:06 Dose: 100 mg Documented By: THANH Fluphenazine Decanoate (Fluphenazine Decanoate 25 Mg/Ml 5 Ml Vial) 50 mg IM Q14D ANDREY Gabapentin (Gabapentin 300 Mg Capsule) 300 mg G-TUBE TID REPLACED BY [facility] Last Admin: 07/01/22 10:39 Dose: 300 mg Documented By: LUIS Glucose (Glucose Gel 15 Gm Gel..Gram.) 15 gm PO Q15M PRN; Protocol PRN Reason: per Hypoglycemia Standing Ord. Guaifenesin (Guaifenesin 100 Mg/5 Ml Liquid) 10 ml G-TUBE Q4H PRN PRN Reason: Cough Ampicillin Sodium/Sulbactam (Sodium 3 gm/ Sodium Chloride) 100 mls @ 200 mls/hr IV Q12H REPLACED BY [facility] Last Admin: 07/01/22 02:17 Dose: Not Given Documented By: SADAF Non-Admin Reason: No Access Insulin Human Lispro (Insulin Lispro 100 Unit/Ml 3 Ml Vial) 0 unit SUBCUT QIDACHS REPLACED BY [facility]; Protocol Last Admin: 07/01/22 08:15 Dose: Not Given Documented By: LUIS Non-Admin Reason: Off unit: Dialysis Lactulose (Lactulose 20 Gm/30 Ml Solution) 20 gm G-TUBE DAILY REPLACED BY [facility] Last Admin: 07/01/22 10:39 Dose: 20 gm Documented By: LUIS Levothyroxine Sodium (Levothyroxine Sodium 25 Mcg Tablet) 25 mcg G-TUBE DAILY@0600 REPLACED BY [facility] Last Admin: 07/01/22 05:48 Dose: 25 mcg Documented By: THANH Metoprolol Tartrate (Metoprolol Tartrate 25 Mg Tablet) 25 mg G-TUBE BID REPLACED BY [facility]; Protocol Last Admin: 07/01/22 10:39 Dose: 25 mg Documented By: LUIS Nystatin (Nystatin Powder 15 Gm Bottle) 1 appl TOPICAL BID REPLACED BY [facility]; Protocol Last Admin: 07/01/22 10:41 Dose: 1 appl Documented By: LUIS Olanzapine (Olanzapine 10 Mg Vial) 5 mg IM DAILY PRN PRN Reason: agitation Last Admin: 07/01/22 02:14 Dose: 5 mg Documented By: SADAF Omeprazole (Omeprazole 20 Mg/10 Ml Susp.Recon) 40 mg G-TUBE DAILY@0630 REPLACED BY [facility] Last Admin: 07/01/22 05:49 Dose: 40 mg Documented By: THANH Quetiapine Fumarate (Quetiapine Fumarate 25 Mg Tablet) 25 mg PO BID PRN PRN Reason: anxiety/restlessness Last Admin: 07/01/22 05:58 Dose: 25 mg Documented By: THANH Comments: Mehrdad Thomas to give now Senna (Sennosides 8.6 Mg Tablet) 8.6 mg G-TUBE DAILY PRN PRN Reason: Constipation Sodium Bicarbonate (Sodium Bicarbonate 650 Mg Tablet) 650 mg G-TUBE TID REPLACED BY [facility] Last Admin: 07/01/22 10:39 Dose: 650 mg Documented By: LUIS Sodium Chloride (0.9 % Sodium Chloride Flush 3 Ml Syringe) 3 ml IVFLUSH QSHIFT REPLACED BY [facility] Last Admin: 07/01/22 10:41 Dose: Not Given Documented By: LUIS Non-Admin Reason: No Access Labs CBC & Chem 7: 07/01/22 06:18 07/01/22 06:18 Labs: Laboratory Results - last 24 hr 06/30/22 06/30/22 06/30/22 06:46 16:19 19:37 MCV MCH MCHC RDW Plt Count MPV Absolute Nucleated RBC Nucleated RBC % (auto) PT INR Anion Gap Estim Creat Clear Calc Estimated GFR POC Glucose 157 H 152 H Random Glucose Calcium Hep Bs Antigen Negative Hep Bs Antibody NONREACTIVE Hep B Core Total Ab Nonreactive 07/01/22 07/01/22 07/01/22 06:18 06:18 06:18 MCV 96.5 MCH 31.9 MCHC 33.1 RDW 18.1 H Plt Count 81 L MPV 11.8 Absolute Nucleated RBC 0.000 Nucleated RBC % (auto) 0.0 PT 15.8 H INR 1.4 H Anion Gap 16 Estim Creat Clear Calc 26.8 Estimated GFR 18 POC Glucose Random Glucose 142 H D Calcium 7.7 L D Hep Bs Antigen Hep Bs Antibody Hep B Core Total Ab 07/01/22 09:54 MCV MCH MCHC RDW Plt Count MPV Absolute Nucleated RBC Nucleated RBC % (auto) PT INR Anion Gap Estim Creat Clear Calc Estimated GFR POC Glucose 111 Random Glucose Calcium Hep Bs Antigen Hep Bs Antibody Hep B Core Total Ab Assessment and Plan (1) Acute kidney injury superimposed on chronic kidney disease: Status: Acute (2) Acute respiratory failure with hypoxia: Status: Acute (3) Pneumonia: Status: Acute (4) Dysphagia, oropharyngeal phase: Status: Acute Plan 61-year-old gentleman resident of [facility] with past medical history of chronic kidney disease stage 3, hypertension, schizophrenia, diastolic heart failure with frequent hospitalization was recently discharged from [facility] on 06/16 after being treated for CHF exacerbation encephalopathy, with increasing confusion agitation, followed by an episode of vomiting and aspiration resulting in PE a arrest requiring intubation and admission to ICU, Subsequently required PEG tube placement due to dysphagia, return back to [facility] due to respiratory distress with significant hypoxia of 82-83% on 2 L [place] on CKD stage 3 started HD via temporary catheter plan for kidney biopsy CT scan showed no obstruction monitor I\O and BMP Pneumonia, aspiration CXR showed evidence of infiltrates blood cultures negative COVID-19 negative completed abx course Acute hypoxic respiratory failure likely secondary to fluid overload from acute on chronic diastolic CHF, p neumonia and renal failure CXR showing fluid overload and possible pneumonia HD Wean oxygen as tolerated Hypernatremia Improved free fluids 300 cc to q4h Discontinue D5W Follow BMP hyperkalemia Improved nephro following, continue Gtube sodium bicarb follow BMP Toxic metabolic encephalopathy Secondary to electrolyte imbalance, delirium, history schizophrenia Zyprexa as needed Seroquel p.r.n. 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 MBBS once the patient mental status improves Diabetes mellitus type 2 follow blood sugars , insulin sliding scale since blood sugars low hold off on Lantus follow blood sugars Cirrhosis continue lactulose History of schizophrenia continue home meds Code status full code as per molst form DVT prophylaxis SCDs reason for continued hospitalization: Hypoxia, pneumonia, worsening kidney function, altered mentation, needs close monitoring, med and diet titration with a plan to start dialysis to prevent possible decompensation Quality Stroke Does the patient have a stroke diagnosis?: No VTE Prior VTE?: No VTE Risk Level:: Medical - moderate - high VTE Device Contraindication: Treatment Not Indicated VTE Drug Contraindication: N/A - Med Ordered
[2022-07-01 11:41] LABS: Glucose, Whole Blood 117 mg/dL (60-115)
--- NOTE | 2022-07-01 11:41 | P.PNNP_ITS ---
Subjective Subjective Date of Service: 07/01/22 Interval history: cc: hypoxia interval history:agitated during HD Physical Exam Vital Signs: Vital Signs: Last Vital Signs Temp 98.0 F 07/01/22 11:21 Pulse 63 07/01/22 11:21 Resp 20 07/01/22 11:21 BP 106/80 07/01/22 11:21 Pulse Ox 97 07/01/22 11:21 O2 Del Method 07/01/22 11:21 O2 Flow Rate 1 07/01/22 11:21 Oxygen Flow Rate 6 06/20/22 11:59 BMI result Body Mass Index 29.1 Const: Other: Constitutional : Alert with stimulation, restless not in distress Neck : Normal inspection, Supple Cardiovascular : RRR, no JVP, no lower extremity edema Respiratory : fair bilateral air entry, no crackles, wheezes or rhonchi Gastrointestinal: soft, lax, Normal bowel sounds, Non tender Skin : Warm, Dry, ?stage II decubitus ulcer on coccyx, medial right buttock and left buttock Neurological : Alert with stimulation, disoriented, No focal deficit , altered mentation General: cooperative, healthy appearing, comfortable, no acute distress and patient obtunded Nutritional Appearance: overweight Orientation/consciousness: patient oriented x3 and patient obtunded Limitations: altered mental status HEENT: Face and sinus: Yes normal facial exam Mouth: moist mucous membranes Neck: Neck: Yes normal visual inspection, Yes full ROM and Yes trachea midline Chest: Chest palpation & inspection: normal inspection of the chest Resp: Effort & Inspection: normal respiratory effort, able to speak in complete sentences and no respiratory distress GI: Other: Obese abdomen. Peg tube in place with no surrounding erythema. Serous fluid noted on dressings and abdominal binder. Peg was adjusted and pulled up to approximate the mushroom tip to the abdominal wall. Patient tolerated this well. Tube was watched in the leakage was identified. Tube feeds are flowing easily. Inspection: Yes normal to inspection Back/Spine/Pelvis: Cervical Spine: normal cervical lordosis Thoracic/Lumbar Spine: thoracic and lumbar spine normal to inspection Skin: Other: No erythema surrounding the PEG tube. General skin exam: no rashes or lesions noted Neuro: General: patient oriented x3, tone normal, moves all extremities and patient obtunded Extrem: General: Yes normal to inspection and Yes capillary refill normal Objective Data Labs CBC & Chem 7: 07/01/22 06:18 08/19/22 06:18 Labs: Laboratory Results - last 24 hr 06/30/22 06/30/22 06/30/22 06:46 16:19 19:37 WBC RBC Hgb Hct MCV MCH MCHC RDW Plt Count MPV Absolute Nucleated RBC Nucleated RBC % (auto) PT INR Sodium Potassium Chloride Carbon Dioxide Anion Gap BUN Creatinine Estim Creat Clear Calc Estimated GFR POC Glucose 157 H 152 H Random Glucose Calcium Hep Bs Antigen Negative Hep Bs Antibody NONREACTIVE Hep B Core Total Ab Nonreactive 07/01/22 07/01/22 07/01/22 06:18 06:18 06:18 WBC 2.2 L RBC 2.57 L Hgb 8.2 L Hct 24.8 L MCV 96.5 MCH 31.9 MCHC 33.1 RDW 18.1 H Plt Count 81 L MPV 11.8 Absolute Nucleated RBC 0.000 Nucleated RBC % (auto) 0.0 PT 15.8 H INR 1.4 H Sodium 135 Potassium 3.6 Chloride 100 Carbon Dioxide 23 Anion Gap 16 BUN 79 H Creatinine 3.40 H Estim Creat Clear Calc 26.8 Estimated GFR 18 POC Glucose Random Glucose 142 H D Calcium 7.7 L D Hep Bs Antigen Hep Bs Antibody Hep B Core Total Ab 07/01/22 09:54 WBC RBC Hgb Hct MCV MCH MCHC RDW Plt Count MPV Absolute Nucleated RBC Nucleated RBC % (auto) PT INR Sodium Potassium Chloride Carbon Dioxide Anion Gap BUN Creatinine Estim Creat Clear Calc Estimated GFR POC Glucose 111 Random Glucose Calcium Hep Bs Antigen Hep Bs Antibody Hep B Core Total Ab Microbiology Microbiology Results: Microbiology 06/26/22 15:19 Blood - Venous Blood Culture - Preliminary No growth after 48 hours. 06/26/22 14:17 Blood - Venous Blood Culture - Preliminary No growth after 48 hours. 06/26/22 16:48 Urine clean catch - Clean Catch Midstream Urine Culture - Final 06/20/22 14:33 Blood - Venous Blood Culture - Final No growth after 5 days. 06/20/22 14:33 Blood - Venous Blood Culture - Final No growth after 5 days. Procedures Date of Service Date of Service: 07/01/22 Assessment & Plan Assessment and plan (1) Acute kidney injury superimposed on chronic kidney disease: Status: Acute (2) Acute respiratory failure with hypoxia: Status: Acute (3) Pneumonia: Status: Acute (4) Dysphagia, oropharyngeal phase: Status: Acute Plan 61-year-old gentleman resident of [facility] with past medical history of chronic kidney disease stage 3, hypertension, schizophrenia, diastolic heart failure with frequent hospitalization was recently discharged from [facility] on 06/16 after being treated for CHF exacerbation encephalopathy, with increasing confusion agitation, followed by an episode of vomiting and aspiration resulting in PE a arrest requiring intubation and admission to ICU, Subsequently required PEG tube placement due to dysphagia, return back to [facility] due to respiratory distress with significant hypoxia of 82-83% on 2 L Acute respiratory failure with hypoxia: Plan Acute hypoxic respiratory failure likely secondary to possible aspiration pneumonia/diastolic CHF? with acute exacerbation ERNST superimposed? on Chronic kidney disease stage 3 Vanco level was 21 on 06/14 On 06/20 he received 1.5 gm IV Vanco Creatinine has been steadily increasing from 1.79 ?ATN/ Vanco induced tubular injury Platelet count isincreasing - chronically low platelets Chronically elevated LDH and in fact recent LDH is lower! Serologies noted. Will arrange for a kidney biopsy Dialysis initated on 06/30/22 discussed with pt and he agress Hypernatremia improved free water via G tube monitor Hyperkalemia improved from 6.6 to 5.4 after insulin, lasix, and kayexylate Gtube sodium bicarb to correct acidosis monitor Chronic Anemia with elevated MCV, recent iron studies within normal range normal B12 folate ?Epogen Parkinson's disease continue Sinemet Cirrhosis ?continue lactulose s Time Spent With Patient Time: Total time spent is greater than 50% in coordination of care (as documented) at patient's floor/unit and/or counseling patient: Progress Note: Quality Stroke Does the patient have a stroke diagnosis?: No
--- NOTE | 2022-07-01 11:50 | MHC.CM.PN ---
Per ROUNDS discussion, Patient is not yet medically cleared for dc (IV Ampicillin, New HD); returning to [facility] is the goal and CM will continue to follow
[2022-07-01] MEDS: fluPHENAZine decanoate 25 MG/ML 5 ML VIAL 50 MG IM (11:55)
--- NOTE | 2022-07-01 13:11 | MHC.CLN ---
F/U PT IS CURRENTLY NPO FOR KIDNEY BIOPSY WHEN TF TO RE-START; RECOMMEND NEPRO AT MAX GOAL RATE 45ML/HR WITH 30ML PROSOURCE Q DAY AND 300ML FREE WATER FLUSHES Q 4 HRS TO PROVIDE 2004KCALS (23KCALS/KG), 102G PROTEIN (1.17G/KG), 2585ML TOTAL WATER FROM FORMULA AND FLUSHES (30ML/KG) START FORMULA AT 20ML/HR AND INCREASE BY 10ML UNTIL MAX GOAL IS ACHIEVED OR: BOLUS TF ORDERS: NEPRO 270ML Q 6 HRS (X4 PER DAY) WITH 30ML PROSOURCE Q DAY AND 300ML FREE WATER FLUSHES Q 4 HRS PROVIDES 2004KCALS (23KCALS/KG), 102G PROTEIN (1.17G/KG), AND 2585ML TOTAL FREE WATER (30ML/KG) CONTINUE TO MONITOR TOLERANCE, RESIDUALS AND LYTES
[2022-07-01 15:11] LABS: Haptoglobin 57 mg/dL (43-212)
[2022-07-01 16:00] VITALS: BP 151/65; PULSE 61; RESP 18; TEMP 36.3; O2SAT 98
[2022-07-01 16:41] LABS: Glucose, Whole Blood 132 mg/dL (60-115)
[2022-07-01 19:57] VITALS: BP 108/46; PULSE 72; RESP 16; TEMP 36.3; O2SAT 96
[2022-07-01 20:28] LABS: Glucose, Whole Blood 138 mg/dL (60-115)
[2022-07-01] MEDS: 0.9 % Sodium Chloride Flush 3 ML SYRINGE IVFLUSH (22:08)
[2022-07-01 23:09] VITALS: BP 100/49; PULSE 80; RESP 18; TEMP 36.7; O2SAT 98
[2022-07-02] VITALS (7 sets, daily range): BP systolic 117–149; BP diastolic 56–116; PULSE 62–71; RESP 16–20; TEMP 36.7–37.1; O2SAT 85–99
--- NOTE | 2022-07-02 00:54 | PC.NURSE ---
Next feeding bolus was due for 2199. Residual was aspirated, about 150 mL. Medications given and flushed. Dr. Armstrong aware, 2199 feeding held. NPO/ tube feedings held @ 0000 07/02/22.
[2022-07-02 06:53] LABS: Hemoglobin 8.6 g/dl (14.0-18.0); Mean Corpuscular HGB Conc 33.1 g/dl (31.0-36.0); Mean Corpuscular Hemoglobin 31.6 pg (27.0-33.0); Mean Corpuscular Volume 95.6 fL (80.0-98.0); Mean Platelet Volume 11.7 fL (9.4-12.4); Platelet Count 102 X10*3/uL (160-400); Red Blood Count 2.72 X10*6/uL (4.60-5.80); Red Cell Distribution Width 17.5 % (11.0-16.0); White Blood Count 13.3 X10*3/uL (4.8-10.8)
[2022-07-02 07:17] LABS: Anion Gap 19 (12-20); Blood Urea Nitrogen 63 mg/dL (9-16); Calcium 7.8 mg/dL (8.4-10.2); Carbon Dioxide 20 mmol/L (22-29); Chloride 98 mmol/L (96-108); Creatinine Clr Calc Pharmacy 27.7; Estimated Glomerular Filt Rate 19; Glucose Fasting 140 mg/dL (60-99); Sodium 133 mmol/L (135-145)
[2022-07-02 07:45] LABS: Glucose, Whole Blood 129 mg/dL (60-115)
[2022-07-02] MEDS: Lactulose 20 GM/30 ML SOLUTION G-TUBE (09:09)
[2022-07-02] MEDS: amLODIPine Besylate 10 MG TABLET G-TUBE (09:09)
[2022-07-02] MEDS: Sodium Bicarbonate 650 MG TABLET G-TUBE ×3 (09:09→20:36)
[2022-07-02] MEDS: Gabapentin 300 MG CAPSULE G-TUBE ×3 (09:09→20:36)
[2022-07-02] MEDS: 0.9 % Sodium Chloride Flush 3 ML SYRINGE IVFLUSH ×2 (09:10→17:59)
[2022-07-02] MEDS: Carbidopa/Levodopa 25/100 TABLET 1 TAB G-TUBE ×4 (09:10→20:36)
[2022-07-02] MEDS: Metoprolol Tartrate 25 MG TABLET G-TUBE ×2 (09:10→20:36)
[2022-07-02] MEDS: Benztropine Mesylate 1 MG TABLET G-TUBE ×2 (09:10→20:36)
--- NOTE | 2022-07-02 10:27 | P.PNIM_ITS ---
Subjective Subjective Date of Service: 07/02/22 Interval History: cc: hypoxia interval history:no complaints Cardiovascular Cardiovascular: Reports no additional cardiovascular complaints Respiratory Respiratory: Reports no additional respiratory complaints Physical Exam Vital Signs: Vital Signs: Last Vital Signs Temp 98.3 F 07/02/22 07:23 Pulse 68 07/02/22 07:23 Resp 16 07/02/22 07:23 BP 149/92 H 07/02/22 07:23 Pulse Ox 96 07/02/22 03:33 O2 Del Method 07/02/22 03:33 O2 Flow Rate 0 07/02/22 03:33 Oxygen Flow Rate 6 06/20/22 11:59 BMI result Body Mass Index 29.1 Const: Other: Constitutional : Alert with stimulation, restless not in distress Neck : Normal inspection, Supple Cardiovascular : RRR, no JVP, no lower extremity edema Respiratory : fair bilateral air entry, no crackles, wheezes or rhonchi Gastrointestinal: soft, lax, Normal bowel sounds, Non tender Skin : Warm, Dry, ?stage II decubitus ulcer on coccyx, medial right buttock and left buttock Neurological : Alert with stimulation, disoriented, No focal deficit , altered mentation General: cooperative, healthy appearing, comfortable, no acute distress and patient obtunded Nutritional Appearance: overweight Orientation/consciousness: patient oriented x3 and patient obtunded Limitations: altered mental status HEENT: Face and sinus: Yes normal facial exam Mouth: moist mucous membranes Neck: Neck: Yes normal visual inspection, Yes full ROM and Yes trachea midline Chest: Chest palpation & inspection: normal inspection of the chest Resp: Effort & Inspection: normal respiratory effort, able to speak in complete sentences and no respiratory distress GI: Other: Obese abdomen. Peg tube in place with no surrounding erythema. Serous fluid noted on dressings and abdominal binder. Peg was adjusted and pulled up to approximate the mushroom tip to the abdominal wall. Patient tolerated this w ell. Tube was watched in the leakage was identified. Tube feeds are flowing easily. Inspection: Yes normal to inspection Back/Spine/Pelvis: Cervical Spine: normal cervical lordosis Thoracic/Lumbar Spine: thoracic and lumbar spine normal to inspection Skin: Other: No erythema surrounding the PEG tube. General skin exam: no rashes or lesions noted Neuro: General: patient oriented x3, tone normal, moves all extremities and patient obtunded Extrem: General: Yes normal to inspection and Yes capillary refill normal Objective Data Active Medications Acetaminophen (Acetaminophen 325 Mg Tablet) 650 mg PO Q4H PRN PRN Reason: Fever Last Admin: 06/27/22 22:32 Dose: 650 mg Documented By: ALEX Amlodipine Besylate (Amlodipine Besylate 10 Mg Tablet) 10 mg G-TUBE DAILY [facility]; Protocol Last Admin: 07/02/22 09:09 Dose: 10 mg Documented By: ANALILIA Benztropine Mesylate (Benztropine Mesylate 1 Mg Tablet) 1 mg G-TUBE BID [facility] Last Admin: 07/02/22 09:10 Dose: 1 mg Documented By: ANALILIA Bisacodyl (Bisacodyl 10 Mg Supp.Rect) 10 mg AK DAILY PRN PRN Reason: Constipation Carbidopa/Levodopa (Carbidopa/Levodopa 25/100 Tablet) 1 tab G-TUBE QID [facility] Last Admin: 07/02/22 09:10 Dose: 1 tab Documented By: ANALILIA Dextrose (Dextrose 50 % 25 Gm/50 Ml Syringe) 25 gm IVPUSH Q15M PRN; Protocol PRN Reason: per Hypoglycemia Standing Ord. Docusate Sodium (Docusate Sodium 100 Mg/10 Ml Liquid) 100 mg G-TUBE BEDTIME [facility] Last Admin: 07/01/22 22:07 Dose: Not Given Documented By: MARTINA Non-Admin Reason: loose BM today Fluphenazine Decanoate (Fluphenazine Decanoate 25 Mg/Ml 5 Ml Vial) 50 mg IM Q14D [facility] Last Admin: 07/01/22 11:55 Dose: 50 mg Documented By: LUIS Gabapentin (Gabapentin 300 Mg Capsule) 300 mg G-TUBE TID [facility] Last Admin: 07/02/22 09:09 Dose: 300 mg Documented By: ANALILIA Glucose (Glucose Gel 15 Gm Gel..Gram.) 15 gm PO Q15M PRN; Protocol PRN Reason: per Hypoglycemia Standing Ord. Guaifenesin (Guaifenesin 100 Mg/5 Ml Liquid) 10 ml G-TUBE Q4H PRN PRN Reason: Cough Insulin Human Lispro (Insulin Lispro 100 Unit/Ml 3 Ml Vial) 0 unit SUBCUT QIDACHS [facility]; Protocol Last Admin: 07/02/22 08:47 Dose: Not Given Documented By: ANALILIA Non-Admin Reason: No Insulin Coverage Lactulose (Lactulose 20 Gm/30 Ml Solution) 20 gm G-TUBE DAILY [facility] Last Admin: 07/02/22 09:09 Dose: 20 gm Documented By: ANALILIA Levothyroxine Sodium (Levothyroxine Sodium 25 Mcg Tablet) 25 mcg G-TUBE DAILY@0600 [facility] Last Admin: 07/02/22 05:21 Dose: Not Given Documented By: LINDA Non-Admin Reason: NPO Metoprolol Tartrate (Metoprolol Tartrate 25 Mg Tablet) 25 mg G-TUBE BID [facility]; Protocol Last Admin: 07/02/22 09:10 Dose: 25 mg Documented By: ANALILIA Nystatin (Nystatin Powder 15 Gm Bottle) 1 appl TOPICAL BID [facility]; Protocol Last Admin: 07/01/22 22:07 Dose: 1 appl Documented By: MARTINA Olanzapine (Olanzapine 10 Mg Vial) 5 mg IM DAILY PRN PRN Reason: agitation Last Admin: 07/01/22 02:14 Dose: 5 mg Documented By: SADAF Omeprazole (Omeprazole 20 Mg/10 Ml Susp.Recon) 40 mg G-TUBE DAILY@0630 [facility] Last Admin: 07/02/22 05:21 Dose: Not Given Documented By: LINDA Non-Admin Reason: NPO Quetiapine Fumarate (Quetiapine Fumarate 25 Mg Tablet) 25 mg PO BID PRN PRN Reason: anxiety/restlessness Last Admin: 07/01/22 21:52 Dose: 25 mg Documented By: MARTINA Senna (Sennosides 8.6 Mg Tablet) 8.6 mg G-TUBE DAILY PRN PRN Reason: Constipation Sodium Bicarbonate (Sodium Bicarbonate 650 Mg Tablet) 650 mg G-TUBE TID [facility] Last Admin: 07/02/22 09:09 Dose: 650 mg Documented By: ANALILIA Sodium Chloride (0.9 % Sodium Chloride Flush 3 Ml Syringe) 3 ml IVFLUSH QSHIFT [facility] Last Admin: 07/02/22 09:10 Dose: 3 ml Documented By: ANALILIA Labs CBC & Chem 7: 07/02/22 06:27 07/02/22 06:27 Labs: Laboratory Results - last 24 hr 06/28/22 07/01/22 07/01/22 05:57 11:23 16:29 MCV MCH MCHC RDW Plt Count MPV Absolute Nucleated RBC Nucleated RBC % (auto) Haptoglobin 57 Anion Gap Estim Creat Clear Calc Estimated GFR POC Glucose 117 H 132 H Fasting Glucose Calcium 07/01/22 07/02/22 07/02/22 20:21 06:27 06:27 MCV 95.6 MCH 31.6 MCHC 33.1 RDW 17.5 H Plt Count 102 L D MPV 11.7 Absolute Nucleated RBC 0.000 Nucleated RBC % (auto) 0.0 Haptoglobin Anion Gap 19 Estim Creat Clear Calc 27.7 Estimated GFR 19 POC Glucose 138 H Fasting Glucose 140 H Calcium 7.8 L 07/02/22 07:28 MCV MCH MCHC RDW Plt Count MPV Absolute Nucleated RBC Nucleated RBC % (auto) Haptoglobin Anion Gap Estim Creat Clear Calc Estimated GFR POC Glucose 129 H Fasting Glucose Calcium Microbiology Microbiology Results: Microbiology 06/26/22 15:19 Blood Culture - Final Blood - Venous No growth after 5 days. 06/26/22 14:17 Blood Culture - Final Blood - Venous No growth after 5 days. Assessment and Plan (1) Acute kidney injury superimposed on chronic kidney disease: Status: Acute (2) Acute respiratory failure with hypoxia: Status: Acute (3) Pneumonia: Status: Acute (4) Dysphagia, oropharyngeal phase: Status: Acute Plan 61-year-old gentleman resident of [facility] with past medical history of chronic kidney disease stage 3, hypertension, schizophrenia, diastolic heart failure with frequent hospitalization was recently discharged from [facility] on 06/16 after being treated for CHF exacerbation encephalopathy, with increasing confusion agitation, followed by an episode of vomiting and aspiration resulting in PE a arrest requiring intubation and admission to ICU, Subsequently required PEG tube placement due to dysphagia, return back to [facility] due to respiratory distress with significant hypoxia of 82-83% on 2 L Mango on CKD stage 3 started HD via temporary catheter plan for kidney biopsy 07/04/22 CT scan showed no obstruction monitor I\O and BMP Pneumonia, aspiration CXR showed evidence of infiltrates blood cultures negative COVID-19 negative completed abx course Acute hypoxic respiratory failure likely secondary to fluid overload from acute on chronic diastolic CHF, pneumonia and renal failure CXR showing fluid overload and possible pneumonia HD Wean oxygen as tolerated Hypernatremia Improved free fluids 300 cc to q4h Discontinued D5W Follow BMP hyperkalemia Improved nephro following, continue Gtube sodium bicarb follow BMP Toxic metabolic encephalopathy Secondary to electrolyte imbalance, delirium, history schizophrenia Zyprexa as needed Seroquel p.r.n. Correct underlying problems Recurrent orientation Chronic Anemia with elevated MCV suspect related to cirrhosis/splenomegaly/CKD Low iron stores normal B12 folate Finished 3 days of IV iron Stage II decubitus ulcer Local measures, dressing Rotating the patient in bed Parkinson's disease continue Sinemet Severe oropharyngeal dysphagia continue G-tube feeding INTER[employer] team recommended MBBS once the patient mental status improves Diabetes mellitus type 2 follow blood sugars , insulin sliding scale since blood sugars low hold off on Lantus follow blood sugars Cirrhosis continue lactulose History of schizophrenia continue home meds Code status full code as per molst form DVT prophylaxis SCDs reason for continued hospitalization: Hypoxia, pneumonia, worsening kidney function, altered mentation, needs close monitoring, med and diet titration, need to determine if chronic HD and would need permanent access and HD spot prior to dc Quality Stroke Does the patient have a stroke diagnosis?: No VTE Prior VTE?: No VTE Risk Level:: Medical - moderate - high VTE Device Contraindication: Treatment Not Indicated VTE Drug Contraindication: N/A - Med Ordered
[2022-07-02 11:48] LABS: Glucose, Whole Blood 147 mg/dL (60-115)
--- NOTE | 2022-07-02 11:50 | P.PNNP_ITS ---
Subjective Subjective Date of Service: 07/02/22 Interval history: cc: hypoxia interval history:no complaints Physical Exam Vital Signs: Vital Signs: Last Vital Signs Temp 98.5 F 07/02/22 11:22 Pulse 62 07/02/22 11:22 Resp 16 07/02/22 11:22 BP 139/116 H 07/02/22 11:22 Pulse Ox 85 L 07/02/22 11:22 O2 Del Method 07/02/22 11:22 O2 Flow Rate 0 07/02/22 03:33 Oxygen Flow Rate 6 06/20/22 11:59 BMI result Body Mass Index 29.1 Const: Other: Constitutional : Alert with stimulation, restless not in distress Neck : Normal inspection, Supple Cardiovascular : RRR, no JVP, no lower extremity edema Respiratory : fair bilateral air entry, no crackles, wheezes or rhonchi Gastrointestinal: soft, lax, Normal bowel sounds, Non tender Skin : Warm, Dry, ?stage II decubitus ulcer on coccyx, medial right buttock and left buttock Neurological : Alert with stimulation, disoriented, No focal deficit , altered mentation General: cooperative, healthy appearing, comfortable, no acute distress and patient obtunded Nutritional Appearance: overweight Orientation/consciousness: patient oriented x3 and patient obtunded Limitations: altered mental status HEENT: Face and sinus: Yes normal facial exam Mouth: moist mucous membranes Neck: Neck: Yes normal visual inspection, Yes full ROM and Yes trachea midline Chest: Chest palpation & inspection: normal inspection of the chest Resp: Effort & Inspection: normal respiratory effort, able to speak in com plete sentences and no respiratory distress GI: Other: Obese abdomen. Peg tube in place with no surrounding erythema. Serous fluid noted on dressings and abdominal binder. Peg was adjusted and pulled up to approximate the mushroom tip to the abdominal wall. Patient tolerated this well. Tube was watched in the leakage was identified. Tube feeds are flowing easily. Inspection: Yes normal to inspection Back/Spine/Pelvis: Cervical Spine: normal cervical lordosis Thoracic/Lumbar Spine: thoracic and lumbar spine normal to inspection Skin: Other: No erythema surrounding the PEG tube. General skin exam: no rashes or lesions noted Neuro: General: patient oriented x3, tone normal, moves all extremities and patient obtunded Extrem: General: Yes normal to inspection and Yes capillary refill normal Objective Data Labs CBC & Chem 7: 07/02/22 06:27 07/02/22 06:27 Labs: Laboratory Results - last 24 hr 06/28/22 07/01/22 07/01/22 05:57 16:29 20:21 WBC RBC Hgb Hct MCV MCH MCHC RDW Plt Count MPV Absolute Nucleated RBC Nucleated RBC % (auto) Haptoglobin 57 Sodium Potassium Chloride Carbon Dioxide Anion Gap BUN Creatinine Estim Creat Clear Calc Estimated GFR POC Glucose 132 H 138 H Fasting Glucose Calcium 07/02/22 07/02/22 07/02/22 06:27 06:27 07:28 WBC 13.3 H RBC 2.72 L Hgb 8.6 L Hct 26.0 L MCV 95.6 MCH 31.6 MCHC 33.1 RDW 17.5 H Plt Count 102 L D MPV 11.7 Absolute Nucleated RBC 0.000 Nucleated RBC % (auto) 0.0 Haptoglobin Sodium 133 L Potassium 4.0 Chloride 98 Carbon Dioxide 20 L Anion Gap 19 BUN 63 H Creatinine 3.29 H Estim Creat Clear Calc 27.7 Estimated GFR 19 POC Glucose 129 H Fasting Glucose 140 H Calcium 7.8 L 07/02/22 11:15 WBC RBC Hgb Hct MCV MCH MCHC RDW Plt Count MPV Absolute Nucleated RBC Nucleated RBC % (auto) Haptoglobin Sodium Potassium Chloride Carbon Dioxide Anion Gap BUN Creatinine Estim Creat Clear Calc Estimated GFR POC Glucose 147 H Fasting Glucose Calcium Microbiology Microbiology Results: Microbiology 06/26/22 15:19 Blood - Venous Blood Culture - Final No growth after 5 days. 06/26/22 14:17 Blood - Venous Blood Culture - Final No growth after 5 days. 06/26/22 16:48 Urine clean catch - Clean Catch Midstream Urine Culture - Final 06/20/22 14:33 Blood - Venous Blood Culture - Final No growth after 5 days. 06/20/22 14:33 Blood - Venous Blood Culture - Final No growth after 5 days. Procedures Date of Service Date of Service: 07/02/22 Assessment & Plan Assessment and plan (1) Acute kidney injury superimposed on chronic kidney disease: Status: Acute (2) Acute respiratory failure with hypoxia: Status: Acute (3) Pneumonia: Status: Acute (4) Dysphagia, oropharyngeal phase: Status: Acute Plan 61-year-old gentleman resident of [facility] with past medical history of chronic kidney disease stage 3, hypertension, schizophrenia, diastolic heart failure with frequent hospitalization was recently discharged from [facility] on 06/16 after being treated for CHF exacerbation encephalopathy, with increasing confusion agitation, followed by an episode of vomiting and aspiration resulting in PE a arrest requiring intubation and admission to ICU, Subsequently required PEG tube placement due to dysphagia, return back to [facility] due to respiratory distress with significant hypoxia of 82-83% on 2 L [place] on CKD stage 3 started HD via temporary catheter plan for kidney biopsy 07/04/22 CT scan showed no obstruction monitor I\O and BMP RENAL BX PENDING 244 HR CREAT CL ORDERED IF HE DOES NOT HAVE ADEQUATE CREAT CL THEN permanent access and HD spot prior to dc Time Spent With Patient Time: Total time spent is greater than 50% in coordination of care (as documented) at patient's floor/unit and/or counseling patient: Progress Note: Quality Stroke Does the patient have a stroke diagnosis?: No
[2022-07-02] MEDS: Nystatin Powder 15 GM BOTTLE 1 APPL TOPICAL ×2 (13:32→20:37)
--- NOTE | 2022-07-02 15:19 | PC.NURSE ---
last set of vitals pt o2 on room air 85. this nurse rechecked O2 got reading of 90 - pt is not in distress or SOB. this nurse initiated 2L O2 via NC. Dr. Lang notified. MD advise to wean O2 next vital check.
[2022-07-02 16:08] LABS: Glucose, Whole Blood 138 mg/dL (60-115)
[2022-07-02 20:32] LABS: Glucose, Whole Blood 145 mg/dL (60-115)
[2022-07-02] MEDS: Docusate Sodium 100 MG/10 ML LIQUID G-TUBE (20:37)
[2022-07-03] MEDS: OLANZapine 10 MG VIAL 5 MG IM (02:23)
[2022-07-03 03:22] VITALS: BP 142/63; PULSE 69; RESP 20; TEMP 37.1; O2SAT 98
[2022-07-03] MEDS: Levothyroxine Sodium 25 MCG TABLET G-TUBE (06:25)
[2022-07-03 06:45] LABS: Hematocrit 24.8 % (42.0-52.0); Hemoglobin 8.3 g/dl (14.0-18.0); Mean Corpuscular HGB Conc 33.5 g/dl (31.0-36.0); Mean Corpuscular Hemoglobin 31.8 pg (27.0-33.0); Mean Platelet Volume 11.1 fL (9.4-12.4); Platelet Count 136 X10*3/uL (160-400); Red Blood Count 2.61 X10*6/uL (4.60-5.80); White Blood Count 16.3 X10*3/uL (4.8-10.8)
[2022-07-03 07:02] LABS: Anion Gap 19 (12-20); Blood Urea Nitrogen 71 mg/dL (9-16); Calcium 8.1 mg/dL (8.4-10.2); Carbon Dioxide 19 mmol/L (22-29); Chloride 98 mmol/L (96-108); Creatinine Clr Calc Pharmacy 23.9; Estimated Glomerular Filt Rate 16; Glucose Fasting 161 mg/dL (60-99); Sodium 132 mmol/L (135-145)
[2022-07-03 07:15] VITALS: BP 137/60; PULSE 72; RESP 20; TEMP 37.2; O2SAT 100
[2022-07-03 07:36] LABS: Glucose, Whole Blood 154 mg/dL (60-115)
[2022-07-03] MEDS: Insulin Lispro 100 UNIT/ML 3 ML VIAL SUBCUT ×3 (07:59→21:32)
[2022-07-03] MEDS: Gabapentin 300 MG CAPSULE G-TUBE ×3 (08:00→21:07)
[2022-07-03] MEDS: amLODIPine Besylate 10 MG TABLET G-TUBE (08:00)
[2022-07-03] MEDS: Carbidopa/Levodopa 25/100 TABLET 1 TAB G-TUBE ×4 (08:00→21:07)
[2022-07-03] MEDS: Sodium Bicarbonate 650 MG TABLET G-TUBE ×3 (08:00→21:07)
[2022-07-03] MEDS: Metoprolol Tartrate 25 MG TABLET G-TUBE ×2 (08:00→21:07)
[2022-07-03] MEDS: Benztropine Mesylate 1 MG TABLET G-TUBE ×2 (08:00→21:07)
[2022-07-03] MEDS: Lactulose 20 GM/30 ML SOLUTION G-TUBE (08:00)
--- NOTE | 2022-07-03 10:38 | P.PNIM_ITS ---
Subjective Subjective Date of Service: 07/03/22 Interval History: cc: hypoxia interval history:no complaints Cardiovascular Cardiovascular: Reports no additional cardiovascular complaints Respiratory Respiratory: Reports no additional respiratory complaints Physical Exam Vital Signs: Vital Signs: Last Vital Signs Temp 99.0 F 07/03/22 07:15 Pulse 72 07/03/22 07:15 Resp 20 07/03/22 07:15 BP 137/60 07/03/22 07:15 Pulse Ox 100 07/03/22 07:15 O2 Del Method 07/03/22 07:15 O2 Flow Rate 2 07/03/22 07:15 Oxygen Flow Rate 6 06/20/22 11:59 BMI result Body Mass Index 29.1 Const: Other: Constitutional : Alert with stimulation, restless not in distress Neck : Normal inspection, Supple Cardiovascular : RRR, no JVP, no lower extremity edema Respiratory : fair bilateral air entry, no crackles, wheezes or rhonchi Gastrointestinal: soft, lax, Normal bowel sounds, Non tender Skin : Warm, Dry, ?stage II decubitus ulcer on coccyx, medial right buttock and left buttock Neurological : Alert with stimulation, disoriented, No focal deficit , altered mentation General: cooperative, healthy appearing, comfortable, no acute distress and patient obtunded Nutritional Appearance: overweight Orientation/consciousness: patient oriented x3 and patient obtunded Limitations: altered mental status HEENT: Face and sinus: Yes normal facial exam Mouth: moist mucous membranes Neck: Neck: Yes normal visual inspection, Yes full ROM and Yes trachea midline Chest: Chest palpation & inspection: normal inspection of the chest Resp: Effort & Inspection: normal respiratory effort, able to speak in complete sentences and no respiratory distress GI: Other: Obese abdomen. Peg tube in place with no surrounding erythema. Serous fluid noted on dressings and abdominal binder. Peg was adjusted and pulled up to approximate the mushroom tip to the abdominal wall. Patient tolerated this w ell. Tube was watched in the leakage was identified. Tube feeds are flowing easily. Inspection: Yes normal to inspection Back/Spine/Pelvis: Cervical Spine: normal cervical lordosis Thoracic/Lumbar Spine: thoracic and lumbar spine normal to inspection Skin: Other: No erythema surrounding the PEG tube. General skin exam: no rashes or lesions noted Neuro: General: patient oriented x3, tone normal, moves all extremities and patient obtunded Extrem: General: Yes normal to inspection and Yes capillary refill normal Objective Data Active Medications Acetaminophen (Acetaminophen 325 Mg Tablet) 650 mg PO Q4H PRN PRN Reason: Fever Last Admin: 06/27/22 22:32 Dose: 650 mg Documented By: ALEX Amlodipine Besylate (Amlodipine Besylate 10 Mg Tablet) 10 mg G-TUBE DAILY [facility]; Protocol Last Admin: 07/03/22 08:00 Dose: 10 mg Documented By: ANALILIA Benztropine Mesylate (Benztropine Mesylate 1 Mg Tablet) 1 mg G-TUBE BID [facility] Last Admin: 07/03/22 08:00 Dose: 1 mg Documented By: ANALILIA Bisacodyl (Bisacodyl 10 Mg Supp.Rect) 10 mg NM DAILY PRN PRN Reason: Constipation Carbidopa/Levodopa (Carbidopa/Levodopa 25/100 Tablet) 1 tab G-TUBE QID [facility] Last Admin: 07/03/22 08:00 Dose: 1 tab Documented By: ANALILIA Dextrose (Dextrose 50 % 25 Gm/50 Ml Syringe) 25 gm IVPUSH Q15M PRN; Protocol PRN Reason: per Hypoglycemia Standing Ord. Docusate Sodium (Docusate Sodium 100 Mg/10 Ml Liquid) 100 mg G-TUBE BEDTIME [facility] Last Admin: 07/02/22 20:37 Dose: 100 mg Documented By: ALONDRA Fluphenazine Decanoate (Fluphenazine Decanoate 25 Mg/Ml 5 Ml Vial) 50 mg IM Q14D [facility] Last Admin: 07/01/22 11:55 Dose: 50 mg Documented By: LUIS Gabapentin (Gabapentin 300 Mg Capsule) 300 mg G-TUBE TID [facility] Last Admin: 07/03/22 08:00 Dose: 300 mg Documented By: ANALILIA Glucose (Glucose Gel 15 Gm Gel..Gram.) 15 gm PO Q15M PRN; Protocol PRN Reason: per Hypoglycemia Standing Ord. Guaifenesin (Guaifenesin 100 Mg/5 Ml Liquid) 10 ml G-TUBE Q4H PRN PRN Reason: Cough Insulin Human Lispro (Insulin Lispro 100 Unit/Ml 3 Ml Vial) 0 unit SUBCUT QIDACHS [facility]; Protocol Last Admin: 07/03/22 07:59 Dose: 2 unit Documented By: ANALILIA Lactulose (Lactulose 20 Gm/30 Ml Solution) 20 gm G-TUBE DAILY [facility] Last Admin: 07/03/22 08:00 Dose: 20 gm Documented By: ANALILIA Levothyroxine Sodium (Levothyroxine Sodium 25 Mcg Tablet) 25 mcg G-TUBE DAILY@0600 [facility] Last Admin: 07/03/22 06:25 Dose: 25 mcg Documented By: THANH Metoprolol Tartrate (Metoprolol Tartrate 25 Mg Tablet) 25 mg G-TUBE BID [facility]; Protocol Last Admin: 07/03/22 08:00 Dose: 25 mg Documented By: ANALILIA Nystatin (Nystatin Powder 15 Gm Bottle) 1 appl TOPICAL BID [facility]; Protocol Last Admin: 07/02/22 20:37 Dose: 1 appl Documented By: ALONDRA Olanzapine (Olanzapine 10 Mg Vial) 5 mg IM DAILY PRN PRN Reason: agitation Last Admin: 07/03/22 02:23 Dose: 5 mg Documented By: THANH Omeprazole (Omeprazole 20 Mg/10 Ml Susp.Recon) 40 mg G-TUBE DAILY@0630 [facility] Last Admin: 07/03/22 06:25 Dose: 40 mg Documented By: THANH Quetiapine Fumarate (Quetiapine Fumarate 25 Mg Tablet) 25 mg PO BID PRN PRN Reason: anxiety/restlessness Last Admin: 07/01/22 21:52 Dose: 25 mg Documented By: MARTINA Senna (Sennosides 8.6 Mg Tablet) 8.6 mg G-TUBE DAILY PRN PRN Reason: Constipation Sodium Bicarbonate (Sodium Bicarbonate 650 Mg Tablet) 650 mg G-TUBE TID [facility] Last Admin: 07/03/22 08:00 Dose: 650 mg Documented By: ANALILIA Sodium Chloride (0.9 % Sodium Chloride Flush 3 Ml Syringe) 3 ml IVFLUSH QSHIFT [facility] Last Admin: 07/03/22 08:31 Dose: Not Given Documented By: ANALILIA Non-Admin Reason: No Access Labs CBC & Chem 7: 07/03/22 06:13 07/03/22 06:13 Labs: Laboratory Results - last 24 hr 07/02/22 07/02/22 07/02/22 11:15 16:01 20:10 MCV MCH MCHC RDW Plt Count MPV Absolute Nucleated RBC Nucleated RBC % (auto) Anion Gap Estim Creat Clear Calc Estimated GFR POC Glucose 147 H 138 H 145 H Fasting Glucose Calcium 07/03/22 07/03/22 07/03/22 06:13 06:13 07:18 MCV 95.0 MCH 31.8 MCHC 33.5 RDW 18.0 H Plt Count 136 L D MPV 11.1 Absolute Nucleated RBC 0.000 Nucleated RBC % (auto) 0.0 Anion Gap 19 Estim Creat Clear Calc 23.9 Estimated GFR 16 POC Glucose 154 H Fasting Glucose 161 H Calcium 8.1 L Assessment and Plan (1) Acute kidney injury superimposed on chronic kidney disease: Status: Acute (2) Acute respiratory failure with hypoxia: Status: Acute (3) Pneumonia: Status: Acute (4) Dysphagia, oropharyngeal phase: Status: Acute Plan 61-year-old gentleman resident of [facility] with past medical history of chronic kidney disease stage 3, hypertension, schizophrenia, diastolic heart failure with frequent hospitalization was recently discharged from [facility] on 06/16 after being treated for CHF exacerbation encephalopathy, with increasing confusion agitation, followed by an episode of vomiting and aspiration resulting in PE a arrest requiring intubation and admission to ICU, Subsequently required PEG tube placement due to dysphagia, return back to [place] due to respiratory distress with significant hypoxia of 82-83% on 2 L Mango on CKD stage 3 started HD via temporary catheter plan for kidney biopsy 07/04/22 CT scan showed no obstruction monitor I\O and BMP Pneumonia, aspiration CXR showed evidence of infiltrates blood cultures negative COVID-19 negative completed abx course Acute hypoxic respiratory failure likely secondary to fluid overload from acute on chronic diastolic CHF, pneumonia and renal failure CXR showing fluid overload and possible pneumonia HD Wean oxygen as tolerated Hypernatremia Improved free fluids 300 cc to q4h Discontinued D5W hyperkalemia Improved nephro following, continue Gtube sodium bicarb follow BMP Toxic metabolic encephalopathy Secondary to electrolyte imbalance, delirium, history schizophrenia Zyprexa as needed Seroquel p.r.n. Correct underlying problems Recurrent orientation Chronic Anemia with elevated MCV suspect related to cirrhosis/splenomegaly/CKD Low iron stores normal B12 folate Finished 3 days of IV iron Stage II decubitus ulcer Local measures, dressing Rotating the patient in bed Parkinson's disease continue Sinemet Severe oropharyngeal dysphagia continue G-tube feeding [employer] team recommended MBBS once the patient mental status improves Diabetes mellitus type 2 follow blood sugars , insulin sliding scale since blood sugars low Cirrhosis continue lactulose History of schizophrenia continue home meds Code status full code as per molst form DVT prophylaxis SCDs reason for continued hospitalization: Hypoxia, pneumonia, worsening kidney function, altered mentation, needs close monitoring, med and diet titration, need to determine if chronic HD and would need permanent access and HD spot prior to dc Quality Stroke Does the patient have a stroke diagnosis?: No VTE Prior VTE?: No VTE Risk Level:: Medical - moderate - high VTE Device Contraindication: Treatment Not Indicated VTE Drug Contraindication: N/A - Med Ordered
[2022-07-03 11:13] LABS: Glucose, Whole Blood 150 mg/dL (60-115)
[2022-07-03 11:28] VITALS: BP 159/59; PULSE 72; RESP 20; TEMP 36.6; O2SAT 93
[2022-07-03] MEDS: Nystatin Powder 15 GM BOTTLE 1 APPL TOPICAL ×2 (14:11→21:07)
[2022-07-03 15:40] VITALS: BP 155/67; PULSE 70; RESP 16; TEMP 37; O2SAT 99
[2022-07-03 16:50] LABS: Glucose, Whole Blood 194 mg/dL (60-115)
--- NOTE | 2022-07-03 19:54 | P.PNNP_ITS ---
Subjective Subjective Date of Service: 07/03/22 Interval history: cc: hypoxia interval history:no complaints Physical Exam Vital Signs: Vital Signs: Last Vital Signs Temp 98.6 F 07/03/22 15:40 Pulse 70 07/03/22 15:40 Resp 16 07/03/22 15:40 BP 155/67 H 07/03/22 15:40 Pulse Ox 99 07/03/22 15:40 O2 Del Method 07/03/22 15:40 O2 Flow Rate 2 07/03/22 15:40 Oxygen Flow Rate 6 06/20/22 11:59 BMI result Body Mass Index 29.1 Const: Other: Constitutional : Alert with stimulation, restless not in distress Neck : Normal inspection, Supple Cardiovascular : RRR, no JVP, no lower extremity edema Respiratory : fair bilateral air entry, no crackles, wheezes or rhonchi Gastrointestinal: soft, lax, Normal bowel sounds, Non tender Skin : Warm, Dry, ?stage II decubitus ulcer on coccyx, medial right buttock and left buttock Neurological : Alert with stimulation, disoriented, No focal deficit , altered mentation General: cooperative, healthy appearing, comfortable, no acute distress and patient obtunded Nutritional Appearance: overweight Orientation/consciousness: patient oriented x3 and patient obtunded Limitations: altered mental status HEENT: Face and sinus: Yes normal facial exam Mouth: moist mucous membranes Neck: Neck: Yes normal visual inspection, Yes full ROM and Yes trachea midline Chest: Chest palpation & inspection: normal inspection of the chest Resp: Effort & Inspection: normal respiratory effort, able to speak in com plete sentences and no respiratory distress GI: Other: Obese abdomen. Peg tube in place with no surrounding erythema. Serous fluid noted on dressings and abdominal binder. Peg was adjusted and pulled up to approximate the mushroom tip to the abdominal wall. Patient tolerated this well. Tube was watched in the leakage was identified. Tube feeds are flowing easily. Inspection: Yes normal to inspection Back/Spine/Pelvis: Cervical Spine: normal cervical lordosis Thoracic/Lumbar Spine: thoracic and lumbar spine normal to inspection Skin: Other: No erythema surrounding the PEG tube. General skin exam: no rashes or lesions noted Neuro: General: patient oriented x3, tone normal, moves all extremities and patient obtunded Extrem: General: Yes normal to inspection and Yes capillary refill normal Objective Data Labs CBC & Chem 7: 07/03/22 06:13 07/03/22 06:13 Labs: Laboratory Results - last 24 hr 07/02/22 07/03/22 07/03/22 20:10 06:13 06:13 WBC 16.3 H RBC 2.61 L Hgb 8.3 L Hct 24.8 L MCV 95.0 MCH 31.8 MCHC 33.5 RDW 18.0 H Plt Count 136 L D MPV 11.1 Absolute Nucleated RBC 0.000 Nucleated RBC % (auto) 0.0 Sodium 132 L Potassium 4.0 Chloride 98 Carbon Dioxide 19 L Anion Gap 19 BUN 71 H Creatinine 3.82 H Estim Creat Clear Calc 23.9 Estimated GFR 16 POC Glucose 145 H Fasting Glucose 161 H Calcium 8.1 L 07/03/22 07/03/22 07/03/22 07:18 11:01 16:43 WBC RBC Hgb Hct MCV MCH MCHC RDW Plt Count MPV Absolute Nucleated RBC Nucleated RBC % (auto) Sodium Potassium Chloride Carbon Dioxide Anion Gap BUN Creatinine Estim Creat Clear Calc Estimated GFR POC Glucose 154 H 150 H 194 H Fasting Glucose Calcium Microbiology Microbiology Results: Microbiology 06/26/22 15:19 Blood - Venous Blood Culture - Final No growth after 5 days. 06/26/22 14:17 Blood - Venous Blood Culture - Final No growth after 5 days. 06/26/22 16:48 Urine clean catch - Clean Catch Midstream Urine Culture - Final 06/20/22 14:33 Blood - Venous Blood Culture - Final No growth after 5 days. 06/20/22 14:33 Blood - Venous Blood Culture - Final No growth after 5 days. Procedures Date of Service Date of Service: 07/03/22 Assessment & Plan Assessment and plan (1) Acute kidney injury superimposed on chronic kidney disease: Status: Acute (2) Acute respiratory failure with hypoxia: Status: Acute (3) Pneumonia: Status: Acute (4) Dysphagia, oropharyngeal phase: Status: Acute Plan 61-year-old gentleman resident of [facility] with past medical history of chronic kidney disease stage 3, hypertension, schizophrenia, diastolic heart failure with frequent hospitalization was recently discharged from [facility] on 06/16 after being treated for CHF exacerbation encephalopathy, with increasing confusion agitation, followed by an episode of vomiting and aspiration resulting in PE a arrest requiring intubation and admission to ICU, Subsequently required PEG tube placement due to dysphagia, return back to [facility] due to respiratory distress with significant hypoxia of 82-83% on 2 L Mango on CKD stage 3 started HD via temporary catheter kidney biopsy 07/04/22 CT scan showed no obstruction monitor I\O and BMP 24 HR CREAT CL ORDERED ?IF HE DOES NOT HAVE ADEQUATE CREAT CL THEN permanent access and HD spot prior to dc Pneumonia, aspiration CXR showed evidence of infiltrates blood cultures negative COVID-19 negative completed abx course Acute hypoxic respiratory failure likely secondary to fluid overload from acute on chronic diastolic CHF, pneumonia and renal failure CXR showing fluid overload and possible pneumonia HD Wean oxygen as tolerated Hypernatremia Improved free fluids 300 cc to q4h Discontinued D5W , continue Gtube sodium bicarb follow BMP Toxic metabolic encephalopathy Secondary to electrolyte imbalance, delirium, history schizophrenia Zyprexa as needed Seroquel p.r.n. Correct underlying problems Recurrent orientation Chronic Anemia with elevated MCV suspect related to cirrhosis/splenomegaly/CKD Low iron stores normal B12 folate Finished 3 days of IV iron Time Spent With Patient Time: Total time spent is greater than 50% in coordination of care (as documented) at patient's floor/unit and/or counseling patient: Progress Note: Quality Stroke Does the patient have a stroke diagnosis?: No
[2022-07-03 20:00] VITALS: BP 108/55; PULSE 75; RESP 20; TEMP 37; O2SAT 97
[2022-07-03] MEDS: 0.9 % Sodium Chloride Flush 3 ML SYRINGE IVFLUSH (21:07)
[2022-07-03] MEDS: Docusate Sodium 100 MG/10 ML LIQUID G-TUBE (21:07)
[2022-07-03 21:13] LABS: Glucose, Whole Blood 166 mg/dL (60-115)
[2022-07-04] VITALS (8 sets, daily range): BP systolic 111–135; BP diastolic 46–65; PULSE 68–72; RESP 16–18; TEMP 36.6–36.9; O2SAT 92–97
[2022-07-04] MEDS: Acetaminophen 325 MG TABLET 650 MG PO (02:09)
[2022-07-04] MEDS: QUEtiapine Fumarate 25 MG TABLET PO (02:09)
[2022-07-04 07:26] LABS: Hematocrit 25.2 % (42.0-52.0); Hemoglobin 8.2 g/dl (14.0-18.0); Mean Corpuscular HGB Conc 32.5 g/dl (31.0-36.0); Mean Corpuscular Hemoglobin 31.1 pg (27.0-33.0); Mean Corpuscular Volume 95.5 fL (80.0-98.0); Mean Platelet Volume 11.1 fL (9.4-12.4); Platelet Count 120 X10*3/uL (160-400); Red Blood Count 2.64 X10*6/uL (4.60-5.80); Red Cell Distribution Width 17.9 % (11.0-16.0); White Blood Count 16.1 X10*3/uL (4.8-10.8)
[2022-07-04 07:48] LABS: Anion Gap 19 (12-20); Blood Urea Nitrogen 74 mg/dL (9-16); Carbon Dioxide 20 mmol/L (22-29); Chloride 98 mmol/L (96-108); Creatinine Clr Calc Pharmacy 21.4; Estimated Glomerular Filt Rate 14; Glucose Fasting 180 mg/dL (60-99); Potassium 3.9 mmol/L (3.3-5.1); Sodium 133 mmol/L (135-145)
[2022-07-04 07:57] LABS: Glucose, Whole Blood 171 mg/dL (60-115)
[2022-07-04 10:29] LABS: Glucose, Whole Blood 153 mg/dL (60-115)
--- NOTE | 2022-07-04 10:33 | PC.NURSE ---
patient arrived in [facility] approx. [id number]. author reached out to RN on floor to send patients sitter to assist with slightly combative patient. author holding patient hands to not allow attempts at pulling out tubes as trying until 1000 when sitter arrived. all answers to questions were provided from floor rn. patient only alert to name.
--- NOTE | 2022-07-04 10:35 | PC.NURSE ---
patient has iv to right hand that was placed this a.m. per floor rn. wrapped in coban due to patient attempts to remove. iv is patent and flushes easily.
--- NOTE | 2022-07-04 10:37 | PC.NURSE ---
josé catheter is patent and draining.
--- NOTE | 2022-07-04 11:17 | PC.NURSE ---
patient procedure was cancelled. IR would like anesthesia to be involved in the case, and has been postponed until tomorrow. Floor RN notified of patient returning to floor.
--- NOTE | 2022-07-04 11:24 | HO.PM.IMPN ---
Subjective Subjective Date of Service: 07/04/22 Interval History: cc: hypoxia interval history:no complaints Cardiovascular Cardiovascular: Reports no additional cardiovascular complaints Respiratory Respiratory: Reports no additional respiratory complaints Physical Exam Vital Signs: Vital Signs: Last Vital Signs Temp 97.9 F 07/04/22 10:19 Pulse 68 07/04/22 10:19 Resp 18 07/04/22 10:19 BP 130/46 L 07/04/22 10:19 Pulse Ox 95 07/04/22 10:19 O2 Del Method 07/04/22 10:19 O2 Flow Rate 2 07/04/22 07:37 Oxygen Flow Rate 6 06/20/22 11:59 BMI result Body Mass Index 29.1 Const: Other: Constitutional : Alert with stimulation, restless not in distress Neck : Normal inspection, Supple Cardiovascular : RRR, no JVP, no lower extremity edema Respiratory : fair bilateral air entry, no crackles, wheezes or rhonchi Gastrointestinal: soft, lax, Normal bowel sounds, Non tender Skin : Warm, Dry, ?stage II decubitus ulcer on coccyx, medial right buttock and left buttock Neurological : Alert with stimulation, disoriented, No focal deficit , altered mentation General: cooperative, healthy appearing, comfortable, no acute distress and patient obtunded Nutritional Appearance: overweight Orientation/consciousness: patient oriented x3 and patient obtunded Limitations: altered mental status HEENT: Face and sinus: Yes normal facial exam Mouth: moist mucous membranes Neck: Neck: Yes normal visual inspection, Yes full ROM and Yes trachea midline Chest: Chest palpation & inspection: normal inspection of the chest Resp: Effort & Inspection: normal respiratory effort, able to speak in complete sentences and no respiratory distress GI: Other: Obese abdomen. Peg tube in place with no surrounding erythema. Serous fluid noted on dressings and abdominal binder. Peg was adjusted and pulled up to approximate the mushroom tip to the abdominal wall. Patient tolerated this well. Tube was watched in the leakage was identified. Tube feeds are flowing easily. Inspection: Yes normal to inspection Back/Spine/Pelvis: Cervical Spine: normal cervical lordosis Thoracic/Lumbar Spine: thoracic and lumbar spine normal to inspection Skin: Other: No erythema surrounding the PEG tube. General skin exam: no rashes or lesions noted Neuro: General: patient oriented x3, tone normal, moves all extremities and patient obtunded Extrem: General: Yes normal to inspection and Yes capillary refill normal Objective Data Active Medications Acetaminophen (Acetaminophen 325 Mg Tablet) 650 mg PO Q4H PRN PRN Reason: Fever Last Admin: 07/04/22 02:09 Dose: 650 mg Documented By: MARTINA Amlodipine Besylate (Amlodipine Besylate 10 Mg Tablet) 10 mg G-TUBE DAILY [facility]; Protocol Last Admin: 07/03/22 08:00 Dose: 10 mg Documented By: ANALILIA Benztropine Mesylate (Benztropine Mesylate 1 Mg Tablet) 1 mg G-TUBE BID [facility] Last Admin: 07/03/22 21:07 Dose: 1 mg Documented By: MARÍA Bisacodyl (Bisacodyl 10 Mg Supp.Rect) 10 mg SD DAILY PRN PRN Reason: Constipation Carbidopa/Levodopa (Carbidopa/Levodopa 25/100 Tablet) 1 tab G-TUBE QID [facility] Last Admin: 07/03/22 21:07 Dose: 1 tab Documented By: MARÍA Dextrose (Dextrose 50 % 25 Gm/50 Ml Syringe) 25 gm IVPUSH Q15M PRN; Protocol PRN Reason: per Hypoglycemia Standing Ord. Docusate Sodium (Docusate Sodium 100 Mg/10 Ml Liquid) 100 mg G-TUBE BEDTIME [facility] Last Admin: 07/03/22 21:07 Dose: 100 mg Documented By: MARÍA Fluphenazine Decanoate (Fluphenazine Decanoate 25 Mg/Ml 5 Ml Vial) 50 mg IM Q14D [facility] Last Admin: 07/01/22 11:55 Dose: 50 mg Documented By: LUIS Gabapentin (Gabapentin 300 Mg Capsule) 300 mg G-TUBE TID [facility] Last Admin: 07/03/22 21:07 Dose: 300 mg Documented By: MARÍA Glucose (Glucose Gel 15 Gm Gel..Gram.) 15 gm PO Q15M PRN; Protocol PRN Reason: per Hypoglycemia Standing Ord. Guaifenesin (Guaifenesin 100 Mg/5 Ml Liquid) 10 ml G-TUBE Q4H PRN PRN Reason: Cough Insulin Human Lispro (Insulin Lispro 100 Unit/Ml 3 Ml Vial) 0 unit SUBCUT QIDACHS [facility]; Protocol Last Admin: 07/04/22 08:19 Dose: Not Given Documented By: CTORRZ Non-Admin Reason: off to surgery Lactulose (Lactulose 20 Gm/30 Ml Solution) 20 gm G-TUBE DAILY [facility] Last Admin: 07/03/22 08:00 Dose: 20 gm Documented By: ANALILIA Levothyroxine Sodium (Levothyroxine Sodium 25 Mcg Tablet) 25 mcg G-TUBE DAILY@0600 [facility] Last Admin: 07/04/22 05:14 Dose: Not Given Documented By: MARTINA Non-Admin Reason: NPO Metoprolol Tartrate (Metoprolol Tartrate 25 Mg Tablet) 25 mg G-TUBE BID [facility]; Protocol Last Admin: 07/03/22 21:07 Dose: 25 mg Documented By: MARÍA Nystatin (Nystatin Powder 15 Gm Bottle) 1 appl TOPICAL BID [facility]; Protocol Last Admin: 07/03/22 21:07 Dose: 1 appl Documented By: MARÍA Olanzapine (Olanzapine 10 Mg Vial) 5 mg IM DAILY PRN PRN Reason: agitation Last Admin: 07/03/22 02:23 Dose: 5 mg Documented By: THANH Omeprazole (Omeprazole 20 Mg/10 Ml Susp.Recon) 40 mg G-TUBE DAILY@0630 [facility] Last Admin: 07/04/22 05:14 Dose: Not Given Documented By: MARTINA Non-Admin Reason: NPO Quetiapine Fumarate (Quetiapine Fumarate 25 Mg Tablet) 25 mg PO BID PRN PRN Reason: anxiety/restlessness Last Admin: 07/04/22 02:09 Dose: 25 mg Documented By: MARTINA Senna (Sennosides 8.6 Mg Tablet) 8.6 mg G-TUBE DAILY PRN PRN Reason: Constipation Sodium Bicarbonate (Sodium Bicarbonate 650 Mg Tablet) 650 mg G-TUBE TID [facility] Last Admin: 07/03/22 21:07 Dose: 650 mg Documented By: MARÍA Sodium Chloride (0.9 % Sodium Chloride Flush 3 Ml Syringe) 3 ml IVFLUSH QSHIFT [facility] Last Admin: 07/03/22 21:07 Dose: 3 ml Documented By: MARÍA Labs CBC & Chem 7: 07/04/22 06:39 07/04/22 06:39 Labs: Laboratory Results - last 24 hr 07/03/22 07/03/22 07/04/22 16:43 21:01 06:39 MCV 95.5 MCH 31.1 MCHC 32.5 RDW 17.9 H Plt Count 120 L MPV 11.1 Absolute Nucleated RBC 0.000 Nucleated RBC % (auto) 0.0 Anion Gap Estim Creat Clear Calc Estimated GFR POC Glucose 194 H 166 H Fasting Glucose Calcium 07/04/22 07/04/22 07/04/22 06:39 07:41 10:25 MCV MCH MCHC RDW Plt Count MPV Absolute Nucleated RBC Nucleated RBC % (auto) Anion Gap 19 Estim Creat Clear Calc 21.4 Estimated GFR 14 POC Glucose 171 H 153 H Fasting Glucose 180 H Calcium 8.0 L Assessment and Plan (1) Acute kidney injury superimposed on chronic kidney disease: Status: Acute (2) Acute respiratory failure with hypoxia: Status: Acute (3) Pneumonia: Status: Acute (4) Dysphagia, oropharyngeal phase: Status: Acute Plan 61-year-old gentleman resident of [facility] with past medical history of chronic kidney disease stage 3, hypertension, schizophrenia, diastolic heart failure with frequent hospitalization was recently discharged from [facility] on 06/16 after being treated for CHF exacerbation encephalopathy, with increasing confusion agitation, followed by an episode of vomiting and aspiration resulting in PE a arrest requiring intubation and admission to ICU, Subsequently required PEG tube placement due to dysphagia, return back to [facility] due to respiratory distress with significant hypoxia of 82-83% on 2 L [place] on CKD stage 3 started HD via temporary catheter plan for kidney biopsy today 07/04/22 CT scan showed no obstruction monitor I\O and BMP Pneumonia, aspiration CXR showed evidence of infiltrates blood cultures negative COVID-19 negative completed abx course Acute hypoxic respiratory failure likely secondary to fluid overload from acute on chronic diastolic CHF, pneumonia and renal failure CXR showing fluid overload and possible pneumonia HD Wean oxygen as tolerated Hypernatremia Improved free fluids 300 cc to q4h Discontinued D5W hyperkalemia Improved nephro following, continue Gtube sodium bicarb follow BMP Toxic metabolic encephalopathy Secondary to electrolyte imbalance, delirium, history schizophrenia Zyprexa as needed Seroquel p.r.n. Correct underlying problems Recurrent orientation Chronic Anemia with elevated MCV suspect related to cirrhosis/splenomegaly/CKD Low iron stores normal B12 folate Finished 3 days of IV iron Stage II decubitus ulcer Local measures, dressing Rotating the patient in bed Parkinson's disease continue Sinemet Severe oropharyngeal dysphagia continue G-tube feeding [employer] team recommended MBBS once the patient mental status improves Diabetes mellitus type 2 follow blood sugars , insulin sliding scale since blood sugars low Cirrhosis continue lactulose History of schizophrenia continue home meds Code status full code as per molst form DVT prophylaxis SCDs reason for continued hospitalization: Hypoxia, pneumonia, worsening kidney function, altered mentation, needs close monitoring, med and diet titration, need to determine if chronic HD and would need permanent access and HD spot prior to dc Quality Stroke Does the patient have a stroke diagnosis?: No VTE Prior VTE?: No VTE Risk Level:: Medical - moderate - high VTE Device Contraindication: Treatment Not Indicated VTE Drug Contraindication: N/A - Med Ordered
[2022-07-04 11:59] LABS: Glucose, Whole Blood 149 mg/dL (60-115)
--- NOTE | 2022-07-04 12:04 | MHC.CM.PN ---
Per ROUNDS discussion, Patient is not yet medically cleared for dc (needs Kidney Biopsy); Returning to LTC @ [facility] @ [facility] is the goal and CM will continue to follow.
--- NOTE | 2022-07-04 12:14 | MHC.CLN ---
F/U PT IS CURRENTLY NPO FOR KIDNEY BIOPSY. BIOPSY CANCELLED 07/04 AND POSTPONED TO 07/05. RECEIVED HEMODIALYSIS VIA TEMPORARY CATHETER. WHEN TF TO RE-START: RECOMMEND NEPRO AT MAX GOAL RATE 45ML/HR WITH 30ML PROSOURCE Q DAY AND 300ML FREE WATER FLUSHES Q 4 HRS TO PROVIDE 2004KCALS (23KCALS/KG), 102G PROTEIN (1.17G/KG), 2585ML TOTAL WATER FROM FORMULA AND FLUSHES (30ML/KG) START FORMULA AT 20ML/HR AND INCREASE BY 10ML UNTIL MAX GOAL IS ACHIEVED OR: BOLUS TF ORDERS: NEPRO 270ML Q 6 HRS (X4 PER DAY) WITH 30ML PROSOURCE Q DAY AND 300ML FREE WATER FLUSHES Q 4 HRS PROVIDES 2004KCALS (23KCALS/KG), 102G PROTEIN (1.17G/KG), AND 2585ML TOTAL FREE WATER (30ML/KG) CONTINUE TO MONITOR TOLERANCE, RESIDUALS AND LYTES.
[2022-07-04] MEDS: Gabapentin 300 MG CAPSULE G-TUBE (13:47)
[2022-07-04] MEDS: Carbidopa/Levodopa 25/100 TABLET 1 TAB G-TUBE ×3 (13:47→20:57)
[2022-07-04] MEDS: amLODIPine Besylate 10 MG TABLET G-TUBE (13:47)
[2022-07-04] MEDS: Benztropine Mesylate 1 MG TABLET G-TUBE ×2 (13:48→20:58)
[2022-07-04] MEDS: Metoprolol Tartrate 25 MG TABLET G-TUBE ×2 (13:48→20:57)
[2022-07-04] MEDS: Nystatin Powder 15 GM BOTTLE 1 APPL TOPICAL ×2 (13:48→21:02)
[2022-07-04] MEDS: Sodium Bicarbonate 650 MG TABLET G-TUBE ×2 (13:49→20:57)
[2022-07-04] MEDS: Lactulose 20 GM/30 ML SOLUTION G-TUBE (13:52)
[2022-07-04 16:12] LABS: Glucose, Whole Blood 164 mg/dL (60-115)
[2022-07-04] MEDS: 0.9 % Sodium Chloride Flush 3 ML SYRINGE IVFLUSH (19:09)
[2022-07-04] MEDS: Insulin Lispro 100 UNIT/ML 3 ML VIAL SUBCUT ×2 (19:09→21:49)
[2022-07-04] MEDS: Docusate Sodium 100 MG/10 ML LIQUID G-TUBE (20:58)
[2022-07-04 21:02] LABS: Glucose, Whole Blood 159 mg/dL (60-115)
[2022-07-05] VITALS (19 sets, daily range): BP systolic 84–147; BP diastolic 30–99; PULSE 68–94; RESP 17–29; TEMP 36.4–37.3; O2SAT 90–96
[2022-07-05] MEDS: 0.9 % Sodium Chloride Flush 3 ML SYRINGE IVFLUSH ×3 (00:10→23:02)
--- NOTE | 2022-07-05 04:48 | PC.NURSE ---
Pt restless all night with restless legs. Tube feeding stopped at midnight-pt NPO since then. F/C with very little output. José assessed and flushed, balloon placement checked. Bladder scan 529mls. Another RN assessed josé and balloon-josé fell out and another was placed. Discussed with third RN and she reported this is an ongoing issue with the patient-urology saw on the and felt that the bladder scan was not a true urine reading, that it was picking up on the anasarca. Pt incontinent of stool and pt vomited approximately 15cc of clear yellow fluid when we were rolling patient around to clean him. Pt denies pain. Frequent cough all shift. Will continue to monitor and pass along in report.
[2022-07-05 05:44] LABS: Hematocrit 28.8 % (42.0-52.0); Hemoglobin 9.7 g/dl (14.0-18.0); Mean Corpuscular HGB Conc 33.7 g/dl (31.0-36.0); Mean Corpuscular Hemoglobin 31.6 pg (27.0-33.0); Mean Corpuscular Volume 93.8 fL (80.0-98.0); Mean Platelet Volume 10.6 fL (9.4-12.4); Platelet Count 157 X10*3/uL (160-400); Red Blood Count 3.07 X10*6/uL (4.60-5.80); Red Cell Distribution Width 17.8 % (11.0-16.0); White Blood Count 24.2 X10*3/uL (4.8-10.8)
--- NOTE | 2022-07-05 05:55 | PM.PNNEP ---
Subjective Subjective Date of Service: 07/05/22 Interval history: Seen and examined, events noted Physical Exam Vital Signs: Vital Signs: Last Vital Signs Temp 98 F 07/05/22 03:16 Pulse 68 07/05/22 03:16 Resp 18 07/05/22 03:16 BP 121/99 H 07/05/22 03:16 Pulse Ox 93 07/05/22 03:16 O2 Del Method 07/05/22 03:16 O2 Flow Rate 2 07/04/22 07:37 Oxygen Flow Rate 6 06/20/22 11:59 BMI result Body Mass Index 29.1 Const: Other: Constitutional : Alert with stimulation, restless not in distress Neck : Normal inspection, Supple Cardiovascular : RRR, no JVP, no lower extremity edema Respiratory : fair bilateral air entry, no crackles, wheezes or rhonchi Gastrointestinal: soft, lax, Normal bowel sounds, Non tender Skin : Warm, Dry, ?stage II decubitus ulcer on coccyx, medial right buttock and left buttock Neurological : Alert with stimulation, disoriented, No focal deficit , altered mentation General: cooperative, healthy appearing, comfortable, no acute distress and patient obtunded Nutritional Appearance: overweight Orientation/consciousness: patient oriented x3 and patient obtunded Limitations: altered mental status HEENT: Face and sinus: Yes normal facial exam Mouth: moist mucous membranes Neck: Neck: Yes normal visual inspection, Yes full ROM and Yes trachea midline Chest: Chest palpation & inspection: normal inspection of the chest Resp: Effort & Inspection: normal respiratory effort, able to speak in complete sentences and no respiratory distress GI: Other: Obese abdomen. Peg tube in place with no surrounding erythema. Serous fluid noted on dressings and abdominal binder. Peg was adjusted and pulled up to approximate the mushroom tip to the abdominal wall. Patient tolerated this well. Tube was watched in the leakage was identified. Tube feeds are flowing easily. Inspection: Yes normal to inspection Back/Spine/Pelvis: Cervical Spine: normal cervical lordosis Thoracic/Lumbar Spine: thoracic and lumbar spine normal to inspection Skin: Other: No erythema surrounding the PEG tube. General skin exam: no rashes or lesions noted Neuro: General: patient oriented x3, tone normal, moves all extremities and patient obtunded Extrem: General: Yes normal to inspection and Yes capillary refill normal Objective Data Labs CBC & Chem 7: 07/05/22 05:27 07/04/22 06:39 Labs: Laboratory Results - last 24 hr 07/04/22 07/04/22 07/04/22 06:39 06:39 07:41 WBC 16.1 H RBC 2.64 L Hgb 8.2 L Hct 25.2 L MCV 95.5 MCH 31.1 MCHC 32.5 RDW 17.9 H Plt Count 120 L MPV 11.1 Absolute Nucleated RBC 0.000 Nucleated RBC % (auto) 0.0 Sodium 133 L Potassium 3.9 Chloride 98 Carbon Dioxide 20 L Anion Gap 19 BUN 74 H Creatinine 4.26 H* Estim Creat Clear Calc 21.4 Estimated GFR 14 POC Glucose 171 H Fasting Glucose 180 H Calcium 8.0 L 07/04/22 07/04/22 07/04/22 10:25 11:42 16:06 WBC RBC Hgb Hct MCV MCH MCHC RDW Plt Count MPV Absolute Nucleated RBC Nucleated RBC % (auto) Sodium Potassium Chloride Carbon Dioxide Anion Gap BUN Creatinine Estim Creat Clear Calc Estimated GFR POC Glucose 153 H 149 H 164 H Fasting Glucose Calcium 07/04/22 07/05/22 19:23 05:27 WBC 24.2 H RBC 3.07 L Hgb 9.7 L Hct 28.8 L MCV 93.8 MCH 31.6 MCHC 33.7 RDW 17.8 H Plt Count 157 L D MPV 10.6 Absolute Nucleated RBC 0.000 Nucleated RBC % (auto) 0.0 Sodium Potassium Chloride Carbon Dioxide Anion Gap BUN Creatinine Estim Creat Clear Calc Estimated GFR POC Glucose 159 H Fasting Glucose Calcium Microbiology Microbiology Results: Microbiology 06/26/22 15:19 Blood - Venous Blood Culture - Final No growth after 5 days. 06/26/22 14:17 Blood - Venous Blood Culture - Final No growth after 5 days. 06/26/22 16:48 Urine clean catch - Clean Catch Midstream Urine Culture - Final 06/20/22 14:33 Blood - Venous Blood Culture - Final No growth after 5 days. 06/20/22 14:33 Blood - Venous Blood Culture - Final No growth after 5 days. Procedures Date of Service Date of Service: 07/04/22 Assessment & Plan Assessment and plan (1) Acute respiratory failure with hypoxia: Status: Acute Plan 1. ERNST: etiol remains unclear and prior sero w/u in 02/2022 during previous hosp with epsidoe of ERNST reveald low C3/C4 but other seor neg, now started on HD and scheduled for kdiney Bx Obs r/o by CT AGN and AIN both poss ATN:is often a dx of exclusion and kidney Bx will help r/o other causes and can show change c/w ATN if present 2. Cirrhosis 3.Resp failure: improved 4. Anemia:will eval for Fe/EPO REC: kidney Bx, cont HD support as needed and will eval if he needslongerterm HD support--if yes then HD cath will need to be switched to Pcath Time Spent With Patient Time: Total time spent is greater than 50% in coordination of care (as documented) at patient's floor/unit and/or counseling patient: Progress Note: Quality Stroke Does the patient have a stroke diagnosis?: No
[2022-07-05 06:08] LABS: Anion Gap 21 (12-20); Blood Urea Nitrogen 78 mg/dL (9-16); Carbon Dioxide 18 mmol/L (22-29); Chloride 98 mmol/L (96-108); Creatinine Clr Calc Pharmacy 19.7; Estimated Glomerular Filt Rate 13; Glucose Fasting 175 mg/dL (60-99); Potassium 4.2 mmol/L (3.3-5.1); Sodium 133 mmol/L (135-145)
[2022-07-05 08:05] LABS: Glucose, Whole Blood 190 mg/dL (60-115)
--- NOTE | 2022-07-05 10:12 | PC.NURSE ---
pt arrived 0958. audible grunting respirations, audible rales. rr 28 nsr. stach. iv # 22 Rw would nont flush, blown. Dr Irizarry and Dr. Castillo at bedside for eval. r neck dialysis port dsg wet. abd dsg wet with serosang dng. Dr. Mims starting iv, npc. 4L 90% at best 87-88%. new iv access obtained by Dr. Mims. # 20 Rw. ? whether to proceed with procedure of fine needle and paracentesis. icu dr. zhangp over to eval
--- NOTE | 2022-07-05 10:32 | PC.NURSE ---
sitter at bedside for safety
--- NOTE | 2022-07-05 11:11 | HO.ANESPROP2 ---
HPI - Anesthesia Eval Consult details Narrative: 61 M w/ multiple comorbities p/f paracentesis PMFSH Active Problems Active Problems: All Active Problems (Updated 06/26/22 @ 17:02 by Ck Carlisle MD) Bladder outlet obstruction (Acute) Hyperkalemia (Acute) Hypernatremia (Acute) Acute respiratory failure with hypoxia (Acute) Pneumonia (Acute) Ventricular arrhythmia (Acute) Right lower lobe pneumonia (Acute) Dysphagia, oropharyngeal phase (Acute) Fever (Acute) Parkinson disease (Acute) Toxic metabolic encephalopathy (Acute) Type 2 diabetes mellitus with diabetic polyneuropathy (Acute) CKD (chronic kidney disease) stage 3, GFR 30-59 ml/min (Acute) Respiratory arrest associated with feeding (Acute) Unspecified dementia with behavioral disturbance (Acute) Mild cognitive impairment, so stated (Acute) Schizophrenia (Acute) Cirrhosis (Acute) Acute on chronic diastolic (congestive) heart failure (Acute) Acute exacerbation of CHF (congestive heart failure) (Acute) Acute kidney injury superimposed on chronic kidney disease (Acute) Past Medical History Medical History Abnormal findings on diagnostic imaging of liver and biliary tract Acute kidney failure, unspecified Acute respiratory failure with hypoxia Alcohol abuse, uncomplicated Alcoholic cirrhosis of liver with ascites Allergic rhinitis due to pollen Anemia Ataxia Cannabis use, unspecified, uncomplicated Chronic kidney disease, stage 3 unspecified Chronic renal failure CKD (chronic kidney disease) stage 3, GFR 30-59 ml/min Cocaine abuse, uncomplicated Dementia Dementia in other diseases classified elsewhere with behavioral disturbance Diabetes Disorder of urea cycle metabolism, unspecified Drug abuse, cocaine type Dysphagia, oral phase Dysphagia, oropharyngeal phase Essential (primary) hypertension Essential tremor ETOH abuse Hepatic failure, unspecified without coma Hepatomegaly, not elsewhere classified Hereditary and idiopathic neuropathy, unspecified Hereditary ataxia, unspecified Hyperosmolality and hypernatremia Intracranial hemorrhage, subdural Mild cognitive impairment, so stated Muscle weakness (generalized) Myopia, bilateral Orthostatic hypotension Osteophyte, unspecified joint Other chronic allergic conjunctivitis Other lack of coordination Other pancytopenia Other skin changes Other specified eating disorder Other speech disturbances Pain in unspecified shoulder Parkinson disease Pneumonitis due to inhalation of food and vomit Repeated falls Schizophrenia Sepsis, unspecified organism Subdural hematoma Tinea pedis Toxic metabolic encephalopathy Traumatic subdural hemorrhage without loss of consciousness, subsequent encounter Type 2 diabetes mellitus with diabetic polyneuropathy Unspecified dementia with behavioral disturbance Unsteadiness on feet Family History Family History Other Hypertension Family history of problems with anesthesia: No Surgical History History of Problems with Anesthesia: No Social History Social History Household Members: Other Household Members Other:: Other residents Housing: Retirement Housing Other:: [facility] Do you presently have visiting nurse or other home services: No Unable to assess alcohol history related to: Unknown Alcohol intake: former Patient Tobacco Use Status: Former Tobacco user Tobacco use type: Cigarette Cigarettes Per Day: 1 Second Hand Smoke Exposure: No service: No ([employer]) Current occupational status: disabled Meds Allergies Allergy/AdvReac Type Severity Reaction Status Date / Time pollen extracts Allergy Unknown Verified 03/20/22 13:42 ragweed pollen Allergy Unknown Verified 03/20/22 13:42 Active Medications: Current Medications Acetaminophen (Acetaminophen 325 Mg Tablet) 650 mg PO Q4H PRN PRN Reason: Fever Last Admin: 07/04/22 02:09 Dose: 650 mg Amlodipine Besylate (Amlodipine Besylate 10 Mg Tablet) 10 mg G-TUBE DAILY ANDREY; Protocol Last Admin: 07/04/22 13:47 Dose: 10 mg Benztropine Mesylate (Benztropine Mesylate 1 Mg Tablet) 1 mg G-TUBE BID ANDREY Last Admin: 07/04/22 20:58 Dose: 1 mg Bisacodyl (Bisacodyl 10 Mg Supp.Rect) 10 mg UT DAILY PRN PRN Reason: Constipation Carbidopa/Levodopa (Carbidopa/Levodopa 25/100 Tablet) 1 tab G-TUBE QID ANDREY Last Admin: 07/04/22 20:57 Dose: 1 tab Dextrose (Dextrose 50 % 25 Gm/50 Ml Syringe) 25 gm IVPUSH Q15M PRN; Protocol PRN Reason: per Hypoglycemia Standing Ord. Docusate Sodium (Docusate Sodium 100 Mg/10 Ml Liquid) 100 mg G-TUBE BEDTIME ANDREY Last Admin: 07/04/22 20:58 Dose: 100 mg Fluphenazine Decanoate (Fluphenazine Decanoate 25 Mg/Ml 5 Ml Vial) 50 mg IM Q14D ANDREY Last Admin: 07/01/22 11:55 Dose: 50 mg Gabapentin (Gabapentin 300 Mg Capsule) 300 mg G-TUBE TID [facility] Last Admin: 07/04/22 20:58 Dose: Not Given Glucose (Glucose Gel 15 Gm Gel..Gram.) 15 gm PO Q15M PRN; Protocol PRN Reason: per Hypoglycemia Standing Ord. Guaifenesin (Guaifenesin 100 Mg/5 Ml Liquid) 10 ml G-TUBE Q4H PRN PRN Reason: Cough Insulin Human Lispro (Insulin Lispro 100 Unit/Ml 3 Ml Vial) 0 unit SUBCUT QIDACHS [facility]; Protocol Last Admin: 07/04/22 21:49 Dose: 2 unit Lactulose (Lactulose 20 Gm/30 Ml Solution) 20 gm G-TUBE DAILY [facility] Last Admin: 07/04/22 13:52 Dose: 20 gm Levothyroxine Sodium (Levothyroxine Sodium 25 Mcg Tablet) 25 mcg G-TUBE DAILY@0600 [facility] Last Admin: 07/05/22 05:28 Dose: Not Given Metoprolol Tartrate (Metoprolol Tartrate 25 Mg Tablet) 25 mg G-TUBE BID [facility]; Protocol Last Admin: 07/04/22 20:57 Dose: 25 mg Nystatin (Nystatin Powder 15 Gm Bottle) 1 appl TOPICAL BID [facility]; Protocol Last Admin: 07/04/22 21:02 Dose: 1 appl Olanzapine (Olanzapine 10 Mg Vial) 5 mg IM DAILY PRN PRN Reason: agitation Last Admin: 07/03/22 02:23 Dose: 5 mg Omeprazole (Omeprazole 20 Mg/10 Ml Susp.Recon) 40 mg G-TUBE DAILY@0630 [facility] Last Admin: 07/05/22 05:28 Dose: Not Given Quetiapine Fumarate (Quetiapine Fumarate 25 Mg Tablet) 25 mg PO BID PRN PRN Reason: anxiety/restlessness Last Admin: 07/04/22 02:09 Dose: 25 mg Senna (Sennosides 8.6 Mg Tablet) 8.6 mg G-TUBE DAILY PRN PRN Reason: Constipation Sodium Bicarbonate (Sodium Bicarbonate 650 Mg Tablet) 650 mg G-TUBE TID [facility] Last Admin: 07/04/22 20:57 Dose: 650 mg Sodium Chloride (0.9 % Sodium Chloride Flush 3 Ml Syringe) [facility] Last Admin: 07/05/22 00:10 Dose: 3 ml Home Medications Medication Instructions Recorded Confirmed Last Taken Type benztropine 1 mg tablet 1 mg PO BID 11/18/20 06/20/22 Unknown History carbidopa 25 mg-levodopa 100 mg 1 tab PO QID 11/18/20 06/20/22 Unknown History tablet (Sinemet) fluphenazine decanoate 25 mg/mL 50 mg subcut Q14D 11/18/20 06/20/22 03/16/22 History injection solution miconazole nitrate 2 % topical 1 spray topical BID PRN fungal 11/18/20 06/20/22 Unknown History spray (Lotrimin AF) infection tramadol 50 mg tablet 50 mg PO BID 11/18/20 06/20/22 Unknown History docusate sodium 100 mg tablet 100 mg PO BEDTIME 12/10/20 06/20/22 Unknown History sennosides 8.6 mg tablet (senna) 8.6 mg PO DAILY PRN Constipation 12/10/20 06/20/22 Unknown History levothyroxine 25 mcg tablet 25 mcg PO DAILY@0600 02/19/22 06/20/22 Unknown History multivitamin 1 tab PO DAILY 02/19/22 06/20/22 Unknown History rifaximin 550 mg tablet (Xifaxan) 1 tab PO BID 02/19/22 06/20/22 Unknown History Calazime Skin Protectant 1 applic topical QSHIFT 03/20/22 06/20/22 Unknown History acetaminophen 325 mg tablet 650 mg PO Q4H PRN PAIN/TEMP>100 03/20/22 06/20/22 Unknown History bisacodyl 10 mg rectal suppository 10 mg UT DAILY PRN Constipation 03/20/22 06/20/22 Unknown History guaifenesin 100 mg/5 mL oral liquid 200 mg PO Q4H PRN Cough 03/20/22 06/20/22 Unknown History lactulose 20 gram/30 mL oral 30 ml PO DAILY 03/20/22 06/20/22 Unknown History solution metoprolol tartrate 25 mg tablet 25 mg PO BID 03/20/22 06/20/22 Unknown History gabapentin 300 mg capsule 300 mg PO TID 05/17/22 06/20/22 Unknown History insulin glargine 100 unit/mL (3 20 unit subcut BID 05/17/22 06/20/22 Unknown History mL) subcutaneous pen (Lantus Solostar U-100 Insulin) insulin lispro 100 unit/mL See Protocol subcut QIDACHS 05/17/22 06/20/22 Unknown History subcutaneous pen (Humalog KwikPen (U-100) Insulin) amoxicillin 200 mg-potassium 21.9 ml PO BID 06/20/22 06/20/22 Unknown History clavulanate 28.5 mg/5 mL oral suspension furosemide 20 mg tablet 20 mg PO DAILY 06/20/22 06/20/22 Unknown History Exam Exam Date and Time: July 05, 2022 1111 Height,Weight and Vital Signs: Height 6 ft Weight 214 lb 11.684 oz Last Vital Signs Temp 98.9 F 07/05/22 10:08 Pulse 77 07/05/22 10:08 Resp 28 H 07/05/22 10:08 BP 125/49 L 07/05/22 10:08 Pulse Ox 90 L 07/05/22 10:08 O2 Del Method 07/05/22 10:08 O2 Flow Rate 4 07/05/22 10:08 Oxygen Flow Rate 6 06/20/22 11:59 Pertinent Lab Results Pertinent Lab Results: Laboratory Tests 06/20/22 06/20/22 06/20/22 12:33 14:33 14:34 WBC 5.7 RBC 2.18 L Hgb 7.1 L Hct 22.6 L MCV 103.7 H D MCH 32.6 MCHC 31.4 RDW 20.8 H Plt Count 69 L D MPV 10.8 Immature Gran % (Auto) 0.5 H Neut % (Auto) 78.4 H Lymph % (Auto) 10.8 L Russell % (Auto) 9.4 Eos % (Auto) 0.7 Baso % (Auto) 0.2 Lymph # (Auto) 0.6 L Russell # (Auto) 0.5 Eos # (Auto) 0.0 Baso # (Auto) 0.0 Abs Immat Gran (auto) 0.03 Absolute Neuts (auto) 4.4 Absolute Nucleated RBC 0.000 Nucleated RBC % (auto) 0.0 Neutrophils % (Manual) Band Neutrophils % Lymphocytes % (Manual) Monocytes % (Manual) Eosinophils % (Manual) Basophils % (Manual) Abs Neuts (Manual) Lymphocytes # (Manual) Monocytes # (Manual) Eosinophils # (Manual) Basophils # (Manual) Platelet Estimate Plt Morphology Comment RBC Morphology Hypochromasia Macrocytosis Tear Drop Cells Fany Cells Schistocytes Smear Path Review Absolute Retic Percent Retic Immature Retic Fraction Retic Hgb Equivalent Haptoglobin PT INR Sodium Potassium Chloride Carbon Dioxide Anion Gap BUN Creatinine Estim Creat Clear Calc Estimated GFR POC Glucose 137 H Random Glucose Fasting Glucose Lactic Acid 0.8 Calcium Iron TIBC % Saturation Unsat Iron Binding Total Bilirubin Direct Bilirubin AST ALT Alkaline Phosphatase Ammonia Lactate Dehydrogenase Troponin I High Sens B-Natriuretic Peptide Total Protein Albumin Vitamin B12 Folate Urine Color Urine Appearance Urine pH Ur Specific [place] Urine Protein Urine Glucose (UA) Urine Ketones Urine Blood Urine Nitrite Ur Leukocyte Esterase Urine RBC Urine WBC Ur Squamous Epith Cells Urine Bacteria Urine Mucus Random Vancomycin C. difficile Tox B Gene COVID-19 (JAS) COVID-19 Clin Com Hep Bs Antigen Hep Bs Antibody Hep B Core Total Ab Influenza Type A (PCR) Influenza Type B (PCR) RSV RNA Qual (PCR) SARS-CoV-2 RNA (RT-PCR) 06/20/22 06/20/22 06/20/22 14:34 14:34 15:00 WBC RBC Hgb Hct MCV MCH MCHC RDW Plt Count MPV Immature Gran % (Auto) Neut % (Auto) Lymph % (Auto) Russell % (Auto) Eos % (Auto) Baso % (Auto) Lymph # (Auto) Russell # (Auto) Eos # (Auto) Baso # (Auto) Abs Immat Gran (auto) Absolute Neuts (auto) Absolute Nucleated RBC Nucleated RBC % (auto) Neutrophils % (Manual) Band Neutrophils % Lymphocytes % (Manual) Monocytes % (Manual) Eosinophils % (Manual) Basophils % (Manual) Abs Neuts (Manual) Lymphocytes # (Manual) Monocytes # (Manual) Eosinophils # (Manual) Basophils # (Manual) Platelet Estimate Plt Morphology Comment RBC Morphology Hypochromasia Macrocytosis Tear Drop Cells [place] Cells Schistocytes Smear Path Review Absolute Retic Percent Retic Immature Retic Fraction Retic Hgb Equivalent Haptoglobin PT INR Sodium 144 Potassium 6.1 H* Chloride 114 H Carbon Dioxide 21 L Anion Gap 15 BUN 53 H Creatinine 1.79 H Estim Creat Clear Calc 51.5 Estimated GFR 39 POC Glucose Random Glucose 129 H Fasting Glucose Lactic Acid Calcium 7.9 L Iron TIBC % Saturation Unsat Iron Binding Total Bilirubin Direct Bilirubin AST ALT Alkaline Phosphatase Ammonia Lactate Dehydrogenase Troponin I High Sens 46.5 H B-Natriuretic Peptide 3097 H Total Protein Albumin Vitamin B12 Folate Urine Color Urine Appearance Urine pH Ur Specific [place] Urine Protein Urine Glucose (UA) Urine Ketones Urine Blood Urine Nitrite Ur Leukocyte Esterase Urine RBC Urine WBC Ur Squamous Epith Cells Urine Bacteria Urine Mucus Random Vancomycin C. difficile Tox B Gene COVID-19 (JAS) COVID-19 Clin Com Hep Bs Antigen Hep Bs Antibody Hep B Core Total Ab Influenza Type A (PCR) NEGATIVE Influenza Type B (PCR) NEGATIVE RSV RNA Qual (PCR) NEGATIVE SARS-CoV-2 RNA (RT-PCR) NEGATIVE 06/20/22 06/20/22 06/20/22 18:11 18:41 21:01 WBC RBC Hgb Hct MCV MCH MCHC RDW Plt Count MPV Immature Gran % (Auto) Neut % (Auto) Lymph % (Auto) Russell % (Auto) Eos % (Auto) Baso % (Auto) Lymph # (Auto) Russell # (Auto) Eos # (Auto) Baso # (Auto) Abs Immat Gran (auto) Absolute Neuts (auto) Absolute Nucleated RBC Nucleated RBC % (auto) Neutrophils % (Manual) Band Neutrophils % Lymphocytes % (Manual) Monocytes % (Manual) Eosinophils % (Manual) Basophils % (Manual) Abs Neuts (Manual) Lymphocytes # (Manual) Monocytes # (Manual) Eosinophils # (Manual) Basophils # (Manual) Platelet Estimate Plt Morphology Comment RBC Morphology Hypochromasia Macrocytosis Tear Drop Cells [place] Cells Schistocytes Smear Path Review Absolute Retic Percent Retic Immature Retic Fraction Retic Hgb Equivalent Haptoglobin PT INR Sodium Potassium Chloride Carbon Dioxide Anion Gap BUN Creatinine Estim Creat Clear Calc Estimated GFR POC Glucose 83 73 Random Glucose Fasting Glucose Lactic Acid Calcium Iron TIBC % Saturation Unsat Iron Binding Total Bilirubin Direct Bilirubin AST ALT Alkaline Phosphatase Ammonia Lactate Dehydrogenase Troponin I High Sens B-Natriuretic Peptide Total Protein Albumin Vitamin B12 Folate Urine Color Urine Appearance Urine pH Ur Specific [place] Urine Protein Urine Glucose (UA) Urine Ketones Urine Blood Urine Nitrite Ur Leukocyte Esterase Urine RBC Urine WBC Ur Squamous Epith Cells Urine Bacteria Urine Mucus Random Vancomycin C. difficile Tox B Gene NEGATIVE COVID-19 (JAS) COVID-19 Clin Com Hep Bs Antigen Hep Bs Antibody Hep B Core Total Ab Influenza Type A (PCR) Influenza Type B (PCR) RSV RNA Qual (PCR) SARS-CoV-2 RNA (RT-PCR) 06/21/22 06/21/22 06/21/22 06:40 06:40 06:40 WBC RBC Hgb Hct MCV MCH MCHC RDW Plt Count MPV Immature Gran % (Auto) Neut % (Auto) Lymph % (Auto) [place] % (Auto) Eos % (Auto) Baso % (Auto) Lymph # (Auto) [place] # (Auto) Eos # (Auto) Baso # (Auto) Abs Immat Gran (auto) Absolute Neuts (auto) Absolute Nucleated RBC Nucleated RBC % (auto) Neutrophils % (Manual) Band Neutrophils % Lymphocytes % (Manual) Monocytes % (Manual) Eosinophils % (Manual) Basophils % (Manual) Abs Neuts (Manual) Lymphocytes # (Manual) Monocytes # (Manual) Eosinophils # (Manual) Basophils # (Manual) Platelet Estimate Plt Morphology Comment RBC Morphology Hypochromasia Macrocytosis Tear Drop Cells [place] Cells Schistocytes Smear Path Review Absolute Retic Percent Retic Immature Retic Fraction Retic Hgb Equivalent Haptoglobin PT 15.1 H INR 1.3 H Sodium 144 Potassium 6.5 H* Chloride 114 H Carbon Dioxide 21 L Anion Gap 16 BUN 55 H Creatinine 1.85 H Estim Creat Clear Calc 49.4 Estimated GFR 37 POC Glucose Random Glucose 81 D Fasting Glucose Lactic Acid Calcium 7.9 L Iron TIBC % Saturation Unsat Iron Binding Total Bilirubin 1.5 H Direct Bilirubin 1.0 H AST 28 ALT < 6 Alkaline Phosphatase 75 Ammonia 33 Lactate Dehydrogenase 376 H Troponin I High Sens B-Natriuretic Peptide Total Protein 6.5 Albumin 2.9 L Vitamin B12 Folate Urine Color Urine Appearance Urine pH Ur Specific [place] Urine Protein Urine Glucose (UA) Urine Ketones Urine Blood Urine Nitrite Ur Leukocyte Esterase Urine RBC Urine WBC Ur Squamous Epith Cells Urine Bacteria Urine Mucus Random Vancomycin C. difficile Tox B Gene COVID-19 (JAS) COVID-19 Clin Com Hep Bs Antigen Hep Bs Antibody Hep B Core Total Ab Influenza Type A (PCR) Influenza Type B (PCR) RSV RNA Qual (PCR) SARS-CoV-2 RNA (RT-PCR) 06/21/22 06/21/22 06/21/22 06:41 06:41 07:08 WBC 5.1 RBC 2.22 L Hgb 7.3 L Hct 23.6 L MCV 106.3 H MCH 32.9 MCHC 30.9 L RDW 20.7 H Plt Count 61 L MPV 11.2 Immature Gran % (Auto) Neut % (Auto) Lymph % (Auto) [place] % (Auto) Eos % (Auto) Baso % (Auto) Lymph # (Auto) [place] # (Auto) Eos # (Auto) Baso # (Auto) Abs Immat Gran (auto) Absolute Neuts (auto) Absolute Nucleated RBC 0.000 Nucleated RBC % (auto) 0.0 Neutrophils % (Manual) Band Neutrophils % Lymphocytes % (Manual) Monocytes % (Manual) Eosinophils % (Manual) Basophils % (Manual) Abs Neuts (Manual) Lymphocytes # (Manual) Monocytes # (Manual) Eosinophils # (Manual) Basophils # (Manual) Platelet Estimate Plt Morphology Comment RBC Morphology Hypochromasia Macrocytosis Tear Drop Cells Fany Cells Schistocytes Smear Path Review Absolute Retic Percent Retic Immature Retic Fraction Retic Hgb Equivalent Haptoglobin PT INR Sodium Potassium Chloride Carbon Dioxide Anion Gap BUN Creatinine Estim Creat Clear Calc Estimated GFR POC Glucose 75 Random Glucose Fasting Glucose Lactic Acid Calcium Iron TIBC % Saturation Unsat Iron Binding Total Bilirubin Direct Bilirubin AST ALT Alkaline Phosphatase Ammonia Lactate Dehydrogenase Troponin I High Sens B-Natriuretic Peptide Total Protein Albumin Vitamin B12 1072 H Folate 6.6 Urine Color Urine Appearance Urine pH Ur Specific [place] Urine Protein Urine Glucose (UA) Urine Ketones Urine Blood Urine Nitrite Ur Leukocyte Esterase Urine RBC Urine WBC Ur Squamous Epith Cells Urine Bacteria Urine Mucus Random Vancomycin C. difficile Tox B Gene COVID-19 (JAS) COVID-19 Clin Com Hep Bs Antigen Hep Bs Antibody Hep B Core Total Ab Influenza Type A (PCR) Influenza Type B (PCR) RSV RNA Qual (PCR) SARS-CoV-2 RNA (RT-PCR) 06/21/22 06/21/22 06/21/22 09:35 09:43 10:31 WBC RBC Hgb Hct MCV MCH MCHC RDW Plt Count MPV Immature Gran % (Auto) Neut % (Auto) Lymph % (Auto) [place] % (Auto) Eos % (Auto) Baso % (Auto) Lymph # (Auto) [place] # (Auto) Eos # (Auto) Baso # (Auto) Abs Immat Gran (auto) Absolute Neuts (auto) Absolute Nucleated RBC Nucleated RBC % (auto) Neutrophils % (Manual) Band Neutrophils % Lymphocytes % (Manual) Monocytes % (Manual) Eosinophils % (Manual) Basophils % (Manual) Abs Neuts (Manual) Lymphocytes # (Manual) Monocytes # (Manual) Eosinophils # (Manual) Basophils # (Manual) Platelet Estimate Plt Morphology Comment RBC Morphology Hypochromasia Macrocytosis Tear Drop Cells [place] Cells Schistocytes Smear Path Review Absolute Retic Percent Retic Immature Retic Fraction Retic Hgb Equivalent Haptoglobin PT INR Sodium Potassium Chloride Carbon Dioxide Anion Gap BUN Creatinine Estim Creat Clear Calc Estimated GFR POC Glucose 76 107 124 H Random Glucose Fasting Glucose Lactic Acid Calcium Iron TIBC % Saturation Unsat Iron Binding Total Bilirubin Direct Bilirubin AST ALT Alkaline Phosphatase Ammonia Lactate Dehydrogenase Troponin I High Sens B-Natriuretic Peptide Total Protein Albumin Vitamin B12 Folate Urine Color Urine Appearance Urine pH Ur Specific [place] Urine Protein Urine Glucose (UA) Urine Ketones Urine Blood Urine Nitrite Ur Leukocyte Esterase Urine RBC Urine WBC Ur Squamous Epith Cells Urine Bacteria Urine Mucus Random Vancomycin C. difficile Tox B Gene COVID-19 (JAS) COVID-19 Clin Com Hep Bs Antigen Hep Bs Antibody Hep B Core Total Ab Influenza Type A (PCR) Influenza Type B (PCR) RSV RNA Qual (PCR) SARS-CoV-2 RNA (RT-PCR) 06/21/22 06/21/22 06/21/22 11:10 12:52 16:27 WBC RBC Hgb Hct MCV MCH MCHC RDW Plt Count MPV Immature Gran % (Auto) Neut % (Auto) Lymph % (Auto) [place] % (Auto) Eos % (Auto) Baso % (Auto) Lymph # (Auto) [place] # (Auto) Eos # (Auto) Baso # (Auto) Abs Immat Gran (auto) Absolute Neuts (auto) Absolute Nucleated RBC Nucleated RBC % (auto) Neutrophils % (Manual) Band Neutrophils % Lymphocytes % (Manual) Monocytes % (Manual) Eosinophils % (Manual) Basophils % (Manual) Abs Neuts (Manual) Lymphocytes # (Manual) Monocytes # (Manual) Eosinophils # (Manual) Basophils # (Manual) Platelet Estimate Plt Morphology Comment RBC Morphology Hypochromasia Macrocytosis Tear Drop Cells Fany Cells Schistocytes Smear Path Review Absolute Retic Percent Retic Immature Retic Fraction Retic Hgb Equivalent Haptoglobin PT INR Sodium 145 Potassium 6.6 H* Chloride 115 H Carbon Dioxide 20 L Anion Gap 17 BUN 58 H Creatinine 2.05 H Estim Creat Clear Calc 44.6 Estimated GFR 33 POC Glucose 76 123 H Random Glucose 121 H D Fasting Glucose Lactic Acid Calcium 8.0 L Iron TIBC % Saturation Unsat Iron Binding Total Bilirubin Direct Bilirubin AST ALT Alkaline Phosphatase Ammonia Lactate Dehydrogenase Troponin I High Sens B-Natriuretic Peptide Total Protein Albumin Vitamin B12 Folate Urine Color Urine Appearance Urine pH Ur Specific [place] Urine Protein Urine Glucose (UA) Urine Ketones Urine Blood Urine Nitrite Ur Leukocyte Esterase Urine RBC Urine WBC Ur Squamous Epith Cells Urine Bacteria Urine Mucus Random Vancomycin C. difficile Tox B Gene COVID-19 (JAS) COVID-19 Clin Com Hep Bs Antigen Hep Bs Antibody Hep B Core Total Ab Influenza Type A (PCR) Influenza Type B (PCR) RSV RNA Qual (PCR) SARS-CoV-2 RNA (RT-PCR) 06/21/22 06/21/22 06/22/22 19:51 20:00 05:37 WBC 5.2 RBC 2.30 L Hgb 7.5 L Hct 25.1 L MCV 109.1 H MCH 32.6 MCHC 29.9 L RDW 20.5 H Plt Count 57 L MPV 11.5 Immature Gran % (Auto) Neut % (Auto) Lymph % (Auto) [place] % (Auto) Eos % (Auto) Baso % (Auto) Lymph # (Auto) [place] # (Auto) Eos # (Auto) Baso # (Auto) Abs Immat Gran (auto) Absolute Neuts (auto) Absolute Nucleated RBC 0.000 Nucleated RBC % (auto) 0.0 Neutrophils % (Manual) Band Neutrophils % Lymphocytes % (Manual) Monocytes % (Manual) Eosinophils % (Manual) Basophils % (Manual) Abs Neuts (Manual) Lymphocytes # (Manual) Monocytes # (Manual) Eosinophils # (Manual) Basophils # (Manual) Platelet Estimate Plt Morphology Comment RBC Morphology Hypochromasia Macrocytosis Tear Drop Cells Fany Cells Schistocytes Smear Path Review Absolute Retic Percent Retic Immature Retic Fraction Retic Hgb Equivalent Haptoglobin PT INR Sodium 146 H Potassium 5.7 H Chloride 116 H Carbon Dioxide 20 L Anion Gap 16 BUN 57 H Creatinine 2.12 H Estim Creat Clear Calc 43.1 Estimated GFR 32 POC Glucose 134 H Random Glucose 152 H Fasting Glucose Lactic Acid Calcium 7.8 L Iron TIBC % Saturation Unsat Iron Binding Total Bilirubin Direct Bilirubin AST ALT Alkaline Phosphatase Ammonia Lactate Dehydrogenase Troponin I High Sens B-Natriuretic Peptide Total Protein Albumin Vitamin B12 Folate Urine Color Urine Appearance Urine pH Ur Specific [place] Urine Protein Urine Glucose (UA) Urine Ketones Urine Blood Urine Nitrite Ur Leukocyte Esterase Urine RBC Urine WBC Ur Squamous Epith Cells Urine Bacteria Urine Mucus Random Vancomycin C. difficile Tox B Gene COVID-19 (JAS) COVID-19 Clin Com Hep Bs Antigen Hep Bs Antibody Hep B Core Total Ab Influenza Type A (PCR) Influenza Type B (PCR) RSV RNA Qual (PCR) SARS-CoV-2 RNA (RT-PCR) 06/22/22 06/22/22 06/22/22 05:37 07:13 10:54 WBC RBC Hgb Hct MCV MCH MCHC RDW Plt Count MPV Immature Gran % (Auto) Neut % (Auto) Lymph % (Auto) [place] % (Auto) Eos % (Auto) Baso % (Auto) Lymph # (Auto) [place] # (Auto) Eos # (Auto) Baso # (Auto) Abs Immat Gran (auto) Absolute Neuts (auto) Absolute Nucleated RBC Nucleated RBC % (auto) Neutrophils % (Manual) Band Neutrophils % Lymphocytes % (Manual) Monocytes % (Manual) Eosinophils % (Manual) Basophils % (Manual) Abs Neuts (Manual) Lymphocytes # (Manual) Monocytes # (Manual) Eosinophils # (Manual) Basophils # (Manual) Platelet Estimate Plt Morphology Comment RBC Morphology Hypochromasia Macrocytosis Tear Drop Cells [place] Cells Schistocytes Smear Path Review Absolute Retic Percent Retic Immature Retic Fraction Retic Hgb Equivalent Haptoglobin PT INR Sodium 147 H Potassium 5.4 H Chloride 115 H Carbon Dioxide 18 L Anion Gap 19 BUN 62 H Creatinine 2.29 H Estim Creat Clear Calc 39.9 Estimated GFR 29 POC Glucose 171 H 171 H Random Glucose Fasting Glucose 200 H Lactic Acid Calcium 8.2 L Iron TIBC % Saturation Unsat Iron Binding Total Bilirubin Direct Bilirubin AST ALT Alkaline Phosphatase Ammonia Lactate Dehydrogenase Troponin I High Sens B-Natriuretic Peptide Total Protein Albumin Vitamin B12 Folate Urine Color Urine Appearance Urine pH Ur Specific [place] Urine Protein Urine Glucose (UA) Urine Ketones Urine Blood Urine Nitrite Ur Leukocyte Esterase Urine RBC Urine WBC Ur Squamous Epith Cells Urine Bacteria Urine Mucus Random Vancomycin C. difficile Tox B Gene COVID-19 (JAS) COVID-19 Clin Com Hep Bs Antigen Hep Bs Antibody Hep B Core Total Ab Influenza Type A (PCR) Influenza Type B (PCR) RSV RNA Qual (PCR) SARS-CoV-2 RNA (RT-PCR) 06/22/22 06/22/22 06/23/22 16:12 19:42 06:02 WBC 5.0 RBC 2.23 L Hgb 7.2 L Hct 23.4 L MCV 104.9 H MCH 32.3 MCHC 30.8 L RDW 20.7 H Plt Count 62 L MPV 11.8 Immature Gran % (Auto) Neut % (Auto) Lymph % (Auto) [place] % (Auto) Eos % (Auto) Baso % (Auto) Lymph # (Auto) [place] # (Auto) Eos # (Auto) Baso # (Auto) Abs Immat Gran (auto) Absolute Neuts (auto) Absolute Nucleated RBC 0.000 Nucleated RBC % (auto) 0.0 Neutrophils % (Manual) Band Neutrophils % Lymphocytes % (Manual) Monocytes % (Manual) Eosinophils % (Manual) Basophils % (Manual) Abs Neuts (Manual) Lymphocytes # (Manual) Monocytes # (Manual) Eosinophils # (Manual) Basophils # (Manual) Platelet Estimate Plt Morphology Comment RBC Morphology Hypochromasia Macrocytosis Tear Drop Cells [place] Cells Schistocytes Smear Path Review Absolute Retic Percent Retic Immature Retic Fraction Retic Hgb Equivalent Haptoglobin PT INR Sodium Potassium Chloride Carbon Dioxide Anion Gap BUN Creatinine Estim Creat Clear Calc Estimated GFR POC Glucose 145 H 145 H Random Glucose Fasting Glucose Lactic Acid Calcium Iron TIBC % Saturation Unsat Iron Binding Total Bilirubin Direct Bilirubin AST ALT Alkaline Phosphatase Ammonia Lactate Dehydrogenase Troponin I High Sens B-Natriuretic Peptide Total Protein Albumin Vitamin B12 Folate Urine Color Urine Appearance Urine pH Ur Specific [place] Urine Protein Urine Glucose (UA) Urine Ketones Urine Blood Urine Nitrite Ur Leukocyte Esterase Urine RBC Urine WBC Ur Squamous Epith Cells Urine Bacteria Urine Mucus Random Vancomycin C. difficile Tox B Gene COVID-19 (JAS) COVID-19 Clin Com Hep Bs Antigen Hep Bs Antibody Hep B Core Total Ab Influenza Type A (PCR) Influenza Type B (PCR) RSV RNA Qual (PCR) SARS-CoV-2 RNA (RT-PCR) 06/23/22 06/23/22 06/23/22 06:02 07:41 11:10 WBC RBC Hgb Hct MCV MCH MCHC RDW Plt Count MPV Immature Gran % (Auto) Neut % (Auto) Lymph % (Auto) [place] % (Auto) Eos % (Auto) Baso % (Auto) Lymph # (Auto) [place] # (Auto) Eos # (Auto) Baso # (Auto) Abs Immat Gran (auto) Absolute Neuts (auto) Absolute Nucleated RBC Nucleated RBC % (auto) Neutrophils % (Manual) Band Neutrophils % Lymphocytes % (Manual) Monocytes % (Manual) Eosinophils % (Manual) Basophils % (Manual) Abs Neuts (Manual) Lymphocytes # (Manual) Monocytes # (Manual) Eosinophils # (Manual) Basophils # (Manual) Platelet Estimate Plt Morphology Comment RBC Morphology Hypochromasia Macrocytosis Tear Drop Cells Fany Cells Schistocytes Smear Path Review Absolute Retic Percent Retic Immature Retic Fraction Retic Hgb Equivalent Haptoglobin PT INR Sodium 147 H Potassium 5.4 H Chloride 112 H Carbon Dioxide 22 Anion Gap 18 BUN 70 H Creatinine 2.59 H Estim Creat Clear Calc 35.3 Estimated GFR 25 POC Glucose 154 H 174 H Random Glucose Fasting Glucose 189 H Lactic Acid Calcium 8.4 Iron 34 L TIBC 180 L % Saturation 19 Unsat Iron Binding 146 Total Bilirubin Direct Bilirubin AST ALT Alkaline Phosphatase Ammonia Lactate Dehydrogenase Troponin I High Sens B-Natriuretic Peptide Total Protein Albumin Vitamin B12 Folate Urine Color Urine Appearance Urine pH Ur Specific [place] Urine Protein Urine Glucose (UA) Urine Ketones Urine Blood Urine Nitrite Ur Leukocyte Esterase Urine RBC Urine WBC Ur Squamous Epith Cells Urine Bacteria Urine Mucus Random Vancomycin C. difficile Tox B Gene COVID-19 (JAS) COVID-19 Clin Com Hep Bs Antigen Hep Bs Antibody Hep B Core Total Ab Influenza Type A (PCR) Influenza Type B (PCR) RSV RNA Qual (PCR) SARS-CoV-2 RNA (RT-PCR) 06/23/22 06/23/22 06/24/22 14:30 18:58 05:39 WBC 5.0 RBC 2.25 L Hgb 7.3 L Hct 23.3 L MCV 103.6 H MCH 32.4 MCHC 31.3 RDW 20.3 H Plt Count 56 L MPV 11.4 Immature Gran % (Auto) Neut % (Auto) Lymph % (Auto) [place] % (Auto) Eos % (Auto) Baso % (Auto) Lymph # (Auto) [place] # (Auto) Eos # (Auto) Baso # (Auto) Abs Immat Gran (auto) Absolute Neuts (auto) Absolute Nucleated RBC 0.000 Nucleated RBC % (auto) 0.0 Neutrophils % (Manual) Band Neutrophils % Lymphocytes % (Manual) Monocytes % (Manual) Eosinophils % (Manual) Basophils % (Manual) Abs Neuts (Manual) Lymphocytes # (Manual) Monocytes # (Manual) Eosinophils # (Manual) Basophils # (Manual) Platelet Estimate Plt Morphology Comment RBC Morphology Hypochromasia Macrocytosis Tear Drop Cells [place] Cells Schistocytes Smear Path Review Absolute Retic Percent Retic Immature Retic Fraction Retic Hgb Equivalent Haptoglobin PT INR Sodium 145 Potassium 5.2 H Chloride 114 H Carbon Dioxide 19 L Anion Gap 17 BUN 71 H Creatinine 2.51 H Estim Creat Clear Calc 36.4 Estimated GFR 26 POC Glucose 160 H Random Glucose 183 H Fasting Glucose Lactic Acid Calcium 8.0 L Iron TIBC % Saturation Unsat Iron Binding Total Bilirubin Direct Bilirubin AST ALT Alkaline Phosphatase Ammonia Lactate Dehydrogenase Troponin I High Sens B-Natriuretic Peptide Total Protein Albumin Vitamin B12 Folate Urine Color Urine Appearance Urine pH Ur Specific [place] Urine Protein Urine Glucose (UA) Urine Ketones Urine Blood Urine Nitrite Ur Leukocyte Esterase Urine RBC Urine WBC Ur Squamous Epith Cells Urine Bacteria Urine Mucus Random Vancomycin C. difficile Tox B Gene COVID-19 (JAS) COVID-19 Clin Com Hep Bs Antigen Hep Bs Antibody Hep B Core Total Ab Influenza Type A (PCR) Influenza Type B (PCR) RSV RNA Qual (PCR) SARS-CoV-2 RNA (RT-PCR) 06/24/22 06/24/22 06/24/22 05:39 07:22 11:20 WBC RBC Hgb Hct MCV MCH MCHC RDW Plt Count MPV Immature Gran % (Auto) Neut % (Auto) Lymph % (Auto) [place] % (Auto) Eos % (Auto) Baso % (Auto) Lymph # (Auto) [place] # (Auto) Eos # (Auto) Baso # (Auto) Abs Immat Gran (auto) Absolute Neuts (auto) Absolute Nucleated RBC Nucleated RBC % (auto) Neutrophils % (Manual) Band Neutrophils % Lymphocytes % (Manual) Monocytes % (Manual) Eosinophils % (Manual) Basophils % (Manual) Abs Neuts (Manual) Lymphocytes # (Manual) Monocytes # (Manual) Eosinophils # (Manual) Basophils # (Manual) Platelet Estimate Plt Morphology Comment RBC Morphology Hypochromasia Macrocytosis Tear Drop Cells [place] Cells Schistocytes Smear Path Review Absolute Retic Percent Retic Immature Retic Fraction Retic Hgb Equivalent Haptoglobin PT INR Sodium 147 H Potassium 4.5 Chloride 111 H Carbon Dioxide 23 Anion Gap 18 BUN 78 H Creatinine 2.73 H Estim Creat Clear Calc 33.5 Estimated GFR 24 POC Glucose 145 H 153 H Random Glucose 160 H Fasting Glucose Lactic Acid Calcium 8.1 L Iron TIBC % Saturation Unsat Iron Binding Total Bilirubin Direct Bilirubin AST ALT Alkaline Phosphatase Ammonia Lactate Dehydrogenase Troponin I High Sens B-Natriuretic Peptide Total Protein Albumin Vitamin B12 Folate Urine Color Urine Appearance Urine pH Ur Specific [place] Urine Protein Urine Glucose (UA) Urine Ketones Urine Blood Urine Nitrite Ur Leukocyte Esterase Urine RBC Urine WBC Ur Squamous Epith Cells Urine Bacteria Urine Mucus Random Vancomycin C. difficile Tox B Gene COVID-19 (JAS) COVID-19 Clin Com Hep Bs Antigen Hep Bs Antibody Hep B Core Total Ab Influenza Type A (PCR) Influenza Type B (PCR) RSV RNA Qual (PCR) SARS-CoV-2 RNA (RT-PCR) 06/24/22 06/24/22 06/24/22 13:46 16:13 19:47 WBC RBC Hgb Hct MCV MCH MCHC RDW Plt Count MPV Immature Gran % (Auto) Neut % (Auto) Lymph % (Auto) [place] % (Auto) Eos % (Auto) Baso % (Auto) Lymph # (Auto) [place] # (Auto) Eos # (Auto) Baso # (Auto) Abs Immat Gran (auto) Absolute Neuts (auto) Absolute Nucleated RBC Nucleated RBC % (auto) Neutrophils % (Manual) Band Neutrophils % Lymphocytes % (Manual) Monocytes % (Manual) Eosinophils % (Manual) Basophils % (Manual) Abs Neuts (Manual) Lymphocytes # (Manual) Monocytes # (Manual) Eosinophils # (Manual) Basophils # (Manual) Platelet Estimate Plt Morphology Comment RBC Morphology Hypochromasia Macrocytosis Tear Drop Cells [place] Cells Schistocytes Smear Path Review Absolute Retic Percent Retic Immature Retic Fraction Retic Hgb Equivalent Haptoglobin PT INR Sodium 145 Potassium 4.8 Chloride 109 H Carbon Dioxide 23 Anion Gap 18 BUN 79 H Creatinine 2.86 H Estim Creat Clear Calc 31.9 Estimated GFR 22 POC Glucose 139 H 145 H Random Glucose 166 H Fasting Glucose Lactic Acid Calcium 8.2 L Iron TIBC % Saturation Unsat Iron Binding Total Bilirubin Direct Bilirubin AST ALT Alkaline Phosphatase Ammonia Lactate Dehydrogenase Troponin I High Sens B-Natriuretic Peptide Total Protein Albumin Vitamin B12 Folate Urine Color Urine Appearance Urine pH Ur Specific [place] Urine Protein Urine Glucose (UA) Urine Ketones Urine Blood Urine Nitrite Ur Leukocyte Esterase Urine RBC Urine WBC Ur Squamous Epith Cells Urine Bacteria Urine Mucus Random Vancomycin C. difficile Tox B Gene COVID-19 (JAS) COVID-19 Clin Com Hep Bs Antigen Hep Bs Antibody Hep B Core Total Ab Influenza Type A (PCR) Influenza Type B (PCR) RSV RNA Qual (PCR) SARS-CoV-2 RNA (RT-PCR) 06/25/22 06/25/22 06/25/22 06:45 06:45 06:45 WBC RBC Hgb Hct MCV MCH MCHC RDW Plt Count MPV Immature Gran % (Auto) Neut % (Auto) Lymph % (Auto) [place] % (Auto) Eos % (Auto) Baso % (Auto) Lymph # (Auto) [place] # (Auto) Eos # (Auto) Baso # (Auto) Abs Immat Gran (auto) Absolute Neuts (auto) Absolute Nucleated RBC Nucleated RBC % (auto) Neutrophils % (Manual) Band Neutrophils % Lymphocytes % (Manual) Monocytes % (Manual) Eosinophils % (Manual) Basophils % (Manual) Abs Neuts (Manual) Lymphocytes # (Manual) Monocytes # (Manual) Eosinophils # (Manual) Basophils # (Manual) Platelet Estimate Plt Morphology Comment RBC Morphology Hypochromasia Macrocytosis Tear Drop Cells [place] Cells Schistocytes Smear Path Review Absolute Retic Percent Retic Immature Retic Fraction Retic Hgb Equivalent Haptoglobin PT 14.5 H INR 1.3 H Sodium 141 Potassium 4.4 Chloride 105 Carbon Dioxide 22 Anion Gap 18 BUN 81 H Creatinine 2.97 H Estim Creat Clear Calc 30.7 Estimated GFR 21 POC Glucose Random Glucose 197 H Fasting Glucose Lactic Acid Calcium 8.2 L Iron TIBC % Saturation Unsat Iron Binding Total Bilirubin Direct Bilirubin AST ALT Alkaline Phosphatase Ammonia Lactate Dehydrogenase Troponin I High Sens B-Natriuretic Peptide 2537 H Total Protein Albumin Vitamin B12 Folate Urine Color Urine Appearance Urine pH Ur Specific [place] Urine Protein Urine Glucose (UA) Urine Ketones Urine Blood Urine Nitrite Ur Leukocyte Esterase Urine RBC Urine WBC Ur Squamous Epith Cells Urine Bacteria Urine Mucus Random Vancomycin C. difficile Tox B Gene COVID-19 (JAS) COVID-19 Clin Com Hep Bs Antigen Hep Bs Antibody Hep B Core Total Ab Influenza Type A (PCR) Influenza Type B (PCR) RSV RNA Qual (PCR) SARS-CoV-2 RNA (RT-PCR) 06/25/22 06/25/22 06/25/22 06:45 06:45 06:45 WBC 5.0 RBC 2.34 L Hgb 7.6 L Hct 24.0 L MCV 102.6 H MCH 32.5 MCHC 31.7 RDW 20.1 H Plt Count 64 L MPV 12.0 Immature Gran % (Auto) 0.4 Neut % (Auto) 74.2 H Lymph % (Auto) 12.2 L [place] % (Auto) 8.8 Eos % (Auto) 4.2 H Baso % (Auto) 0.2 Lymph # (Auto) 0.6 L [place] # (Auto) 0.4 Eos # (Auto) 0.2 Baso # (Auto) 0.0 Abs Immat Gran (auto) 0.02 Absolute Neuts (auto) 3.7 Absolute Nucleated RBC 0.000 Nucleated RBC % (auto) 0.0 Neutrophils % (Manual) 88 H Band Neutrophils % 0 L Lymphocytes % (Manual) 5 L Monocytes % (Manual) 5 Eosinophils % (Manual) 1 Basophils % (Manual) 1 Abs Neuts (Manual) 4.4 Lymphocytes # (Manual) 0.3 L Monocytes # (Manual) 0.3 Eosinophils # (Manual) 0.1 Basophils # (Manual) 0.1 Platelet Estimate DECREASED Plt Morphology Comment NORMAL RBC Morphology NOTED Hypochromasia 1+ (5-14) Macrocytosis 1+ (5-14) Tear Drop Cells 1+ (0-2) Fany Cells 2+ (3-5) Schistocytes 1+ (0-2) Smear Path Review Absolute Retic 0.054 Percent Retic 2.3 H Immature Retic Fraction 14.9 H Retic Hgb Equivalent 29.3 L Haptoglobin PT INR Sodium Potassium Chloride Carbon Dioxide Anion Gap BUN Creatinine Estim Creat Clear Calc Estimated GFR POC Glucose Random Glucose Fasting Glucose Lactic Acid Calcium Iron TIBC % Saturation Unsat Iron Binding Total Bilirubin 1.0 Direct Bilirubin 0.7 H AST 21 ALT 6 Alkaline Phosphatase 78 Ammonia Lactate Dehydrogenase Troponin I High Sens B-Natriuretic Peptide Total Protein 6.0 L Albumin 2.5 L Vitamin B12 Folate Urine Color Urine Appearance Urine pH Ur Specific [place] Urine Protein Urine Glucose (UA) Urine Ketones Urine Blood Urine Nitrite Ur Leukocyte Esterase Urine RBC Urine WBC Ur Squamous Epith Cells Urine Bacteria Urine Mucus Random Vancomycin C. difficile Tox B Gene COVID-19 (JAS) COVID-19 Clin Com Hep Bs Antigen Hep Bs Antibody Hep B Core Total Ab Influenza Type A (PCR) Influenza Type B (PCR) RSV RNA Qual (PCR) SARS-CoV-2 RNA (RT-PCR) 06/25/22 06/25/22 06/25/22 07:22 11:00 15:40 WBC RBC Hgb Hct MCV MCH MCHC RDW Plt Count MPV Immature Gran % (Auto) Neut % (Auto) Lymph % (Auto) [place] % (Auto) Eos % (Auto) Baso % (Auto) Lymph # (Auto) [place] # (Auto) Eos # (Auto) Baso # (Auto) Abs Immat Gran (auto) Absolute Neuts (auto) Absolute Nucleated RBC Nucleated RBC % (auto) Neutrophils % (Manual) Band Neutrophils % Lymphocytes % (Manual) Monocytes % (Manual) Eosinophils % (Manual) Basophils % (Manual) Abs Neuts (Manual) Lymphocytes # (Manual) Monocytes # (Manual) Eosinophils # (Manual) Basophils # (Manual) Platelet Estimate Plt Morphology Comment RBC Morphology Hypochromasia Macrocytosis Tear Drop Cells [place] Cells Schistocytes Smear Path Review Absolute Retic Percent Retic Immature Retic Fraction Retic Hgb Equivalent Haptoglobin PT INR Sodium Potassium Chloride Carbon Dioxide Anion Gap BUN Creatinine Estim Creat Clear Calc Estimated GFR POC Glucose 196 H 141 H 159 H Random Glucose Fasting Glucose Lactic Acid Calcium Iron TIBC % Saturation Unsat Iron Binding Total Bilirubin Direct Bilirubin AST ALT Alkaline Phosphatase Ammonia Lactate Dehydrogenase Troponin I High Sens B-Natriuretic Peptide Total Protein Albumin Vitamin B12 Folate Urine Color Urine Appearance Urine pH Ur Specific [place] Urine Protein Urine Glucose (UA) Urine Ketones Urine Blood Urine Nitrite Ur Leukocyte Esterase Urine RBC Urine WBC Ur Squamous Epith Cells Urine Bacteria Urine Mucus Random Vancomycin C. difficile Tox B Gene COVID-19 (JAS) COVID-19 Clin Com Hep Bs Antigen Hep Bs Antibody Hep B Core Total Ab Influenza Type A (PCR) Influenza Type B (PCR) RSV RNA Qual (PCR) SARS-CoV-2 RNA (RT-PCR) 06/25/22 06/26/22 06/26/22 20:20 06:27 06:27 WBC RBC Hgb Hct MCV MCH MCHC RDW Plt Count MPV Immature Gran % (Auto) Neut % (Auto) Lymph % (Auto) [place] % (Auto) Eos % (Auto) Baso % (Auto) Lymph # (Auto) [place] # (Auto) Eos # (Auto) Baso # (Auto) Abs Immat Gran (auto) Absolute Neuts (auto) Absolute Nucleated RBC Nucleated RBC % (auto) Neutrophils % (Manual) Band Neutrophils % Lymphocytes % (Manual) Monocytes % (Manual) Eosinophils % (Manual) Basophils % (Manual) Abs Neuts (Manual) Lymphocytes # (Manual) Monocytes # (Manual) Eosinophils # (Manual) Basophils # (Manual) Platelet Estimate Plt Morphology Comment RBC Morphology Hypochromasia Macrocytosis Tear Drop Cells Fany Cells Schistocytes Smear Path Review Absolute Retic Percent Retic Immature Retic Fraction Retic Hgb Equivalent Haptoglobin PT INR Sodium 142 Potassium 4.0 Chloride 105 Carbon Dioxide 24 Anion Gap 17 BUN 83 H Creatinine 3.02 H Estim Creat Clear Calc 30.2 Estimated GFR 21 POC Glucose 162 H Random Glucose 161 H Fasting Glucose Lactic Acid Calcium 8.2 L Iron TIBC % Saturation Unsat Iron Binding Total Bilirubin Direct Bilirubin AST ALT Alkaline Phosphatase Ammonia Lactate Dehydrogenase Troponin I High Sens B-Natriuretic Peptide 2499 H Total Protein Albumin Vitamin B12 Folate Urine Color Urine Appearance Urine pH Ur Specific [place] Urine Protein Urine Glucose (UA) Urine Ketones Urine Blood Urine Nitrite Ur Leukocyte Esterase Urine RBC Urine WBC Ur Squamous Epith Cells Urine Bacteria Urine Mucus Random Vancomycin C. difficile Tox B Gene COVID-19 (JAS) COVID-19 Clin Com Hep Bs Antigen Hep Bs Antibody Hep B Core Total Ab Influenza Type A (PCR) Influenza Type B (PCR) RSV RNA Qual (PCR) SARS-CoV-2 RNA (RT-PCR) 06/26/22 06/26/22 06/26/22 07:47 11:18 13:43 WBC RBC Hgb Hct MCV MCH MCHC RDW Plt Count MPV Immature Gran % (Auto) Neut % (Auto) Lymph % (Auto) [place] % (Auto) Eos % (Auto) Baso % (Auto) Lymph # (Auto) [place] # (Auto) Eos # (Auto) Baso # (Auto) Abs Immat Gran (auto) Absolute Neuts (auto) Absolute Nucleated RBC Nucleated RBC % (auto) Neutrophils % (Manual) Band Neutrophils % Lymphocytes % (Manual) Monocytes % (Manual) Eosinophils % (Manual) Basophils % (Manual) Abs Neuts (Manual) Lymphocytes # (Manual) Monocytes # (Manual) Eosinophils # (Manual) Basophils # (Manual) Platelet Estimate Plt Morphology Comment RBC Morphology Hypochromasia Macrocytosis Tear Drop Cells [place] Cells Schistocytes Smear Path Review Absolute Retic Percent Retic Immature Retic Fraction Retic Hgb Equivalent Haptoglobin PT INR Sodium Potassium Chloride Carbon Dioxide Anion Gap BUN Creatinine Estim Creat Clear Calc Estimated GFR POC Glucose 155 H 143 H Random Glucose Fasting Glucose Lactic Acid Calcium Iron TIBC % Saturation Unsat Iron Binding Total Bilirubin Direct Bilirubin AST ALT Alkaline Phosphatase Ammonia Lactate Dehydrogenase Troponin I High Sens B-Natriuretic Peptide Total Protein Albumin Vitamin B12 Folate Urine Color Urine Appearance Urine pH Ur Specific [place] Urine Protein Urine Glucose (UA) Urine Ketones Urine Blood Urine Nitrite Ur Leukocyte Esterase Urine RBC Urine WBC Ur Squamous Epith Cells Urine Bacteria Urine Mucus Random Vancomycin C. difficile Tox B Gene COVID-19 (JAS) Negative COVID-19 Clin Com See Note Hep Bs Antigen Hep Bs Antibody Hep B Core Total Ab Influenza Type A (PCR) Influenza Type B (PCR) RSV RNA Qual (PCR) SARS-CoV-2 RNA (RT-PCR) 06/26/22 06/26/22 06/26/22 13:43 14:17 16:23 WBC RBC Hgb Hct MCV MCH MCHC RDW Plt Count MPV Immature Gran % (Auto) Neut % (Auto) Lymph % (Auto) [place] % (Auto) Eos % (Auto) Baso % (Auto) Lymph # (Auto) [place] # (Auto) Eos # (Auto) Baso # (Auto) Abs Immat Gran (auto) Absolute Neuts (auto) Absolute Nucleated RBC Nucleated RBC % (auto) Neutrophils % (Manual) Band Neutrophils % Lymphocytes % (Manual) Monocytes % (Manual) Eosinophils % (Manual) Basophils % (Manual) Abs Neuts (Manual) Lymphocytes # (Manual) Monocytes # (Manual) Eosinophils # (Manual) Basophils # (Manual) Platelet Estimate Plt Morphology Comment RBC Morphology Hypochromasia Macrocytosis Tear Drop Cells Fany Cells Schistocytes Smear Path Review Absolute Retic Percent Retic Immature Retic Fraction Retic Hgb Equivalent Haptoglobin PT INR Sodium Potassium Chloride Carbon Dioxide Anion Gap BUN Creatinine Estim Creat Clear Calc Estimated GFR POC Glucose 169 H Random Glucose Fasting Glucose Lactic Acid 1.6 Calcium Iron TIBC % Saturation Unsat Iron Binding Total Bilirubin Direct Bilirubin AST ALT Alkaline Phosphatase Ammonia Lactate Dehydrogenase Troponin I High Sens B-Natriuretic Peptide Total Protein Albumin Vitamin B12 Folate Urine Color YELLOW Urine Appearance CLEAR Urine pH 5.5 Ur Specific [place] 1.015 Urine Protein 1+ H Urine Glucose (UA) NEG Urine Ketones NEG Urine Blood 3+ H Urine Nitrite NEG Ur Leukocyte Esterase 2+ H Urine RBC 1-4 Urine WBC 5-9 H Ur Squamous Epith Cells 1+ Urine Bacteria TRACE Urine Mucus TRACE Random Vancomycin C. difficile Tox B Gene COVID-19 (JAS) COVID-19 Clin Com Hep Bs Antigen Hep Bs Antibody Hep B Core Total Ab Influenza Type A (PCR) Influenza Type B (PCR) RSV RNA Qual (PCR) SARS-CoV-2 RNA (RT-PCR) 06/26/22 06/27/22 06/27/22 20:28 06:13 06:13 WBC 7.6 RBC 2.40 L Hgb 7.8 L Hct 24.5 L MCV 102.1 H MCH 32.5 MCHC 31.8 RDW 19.3 H Plt Count 72 L MPV 12.3 Immature Gran % (Auto) Neut % (Auto) Lymph % (Auto) [place] % (Auto) Eos % (Auto) Baso % (Auto) Lymph # (Auto) [place] # (Auto) Eos # (Auto) Baso # (Auto) Abs Immat Gran (auto) Absolute Neuts (auto) Absolute Nucleated RBC 0.000 Nucleated RBC % (auto) 0.0 Neutrophils % (Manual) Band Neutrophils % Lymphocytes % (Manual) Monocytes % (Manual) Eosinophils % (Manual) Basophils % (Manual) Abs Neuts (Manual) Lymphocytes # (Manual) Monocytes # (Manual) Eosinophils # (Manual) Basophils # (Manual) Platelet Estimate Plt Morphology Comment RBC Morphology Hypochromasia Macrocytosis Tear Drop Cells [place] Cells Schistocytes Smear Path Review Absolute Retic Percent Retic Immature Retic Fraction Retic Hgb Equivalent Haptoglobin PT INR Sodium 143 Potassium 4.3 Chloride 105 Carbon Dioxide 23 Anion Gap 19 BUN 92 H Creatinine 3.60 H Estim Creat Clear Calc 25.4 Estimated GFR 17 POC Glucose 152 H Random Glucose 211 H Fasting Glucose Lactic Acid Calcium 8.2 L Iron TIBC % Saturation Unsat Iron Binding Total Bilirubin Direct Bilirubin AST ALT Alkaline Phosphatase Ammonia Lactate Dehydrogenase Troponin I High Sens B-Natriuretic Peptide Total Protein Albumin Vitamin B12 Folate Urine Color Urine Appearance Urine pH Ur Specific [place] Urine Protein Urine Glucose (UA) Urine Ketones Urine Blood Urine Nitrite Ur Leukocyte Esterase Urine RBC Urine WBC Ur Squamous Epith Cells Urine Bacteria Urine Mucus Random Vancomycin C. difficile Tox B Gene COVID-19 (JSA) COVID-19 Clin Com Hep Bs Antigen Hep Bs Antibody Hep B Core Total Ab Influenza Type A (PCR) Influenza Type B (PCR) RSV RNA Qual (PCR) SARS-CoV-2 RNA (RT-PCR) 06/27/22 06/27/22 06/27/22 07:51 11:20 14:18 WBC RBC Hgb Hct MCV MCH MCHC RDW Plt Count MPV Immature Gran % (Auto) Neut % (Auto) Lymph % (Auto) [place] % (Auto) Eos % (Auto) Baso % (Auto) Lymph # (Auto) [place] # (Auto) Eos # (Auto) Baso # (Auto) Abs Immat Gran (auto) Absolute Neuts (auto) Absolute Nucleated RBC Nucleated RBC % (auto) Neutrophils % (Manual) Band Neutrophils % Lymphocytes % (Manual) Monocytes % (Manual) Eosinophils % (Manual) Basophils % (Manual) Abs Neuts (Manual) Lymphocytes # (Manual) Monocytes # (Manual) Eosinophils # (Manual) Basophils # (Manual) Platelet Estimate Plt Morphology Comment RBC Morphology Hypochromasia Macrocytosis Tear Drop Cells [place] Cells Schistocytes Smear Path Review Absolute Retic Percent Retic Immature Retic Fraction Retic Hgb Equivalent Haptoglobin PT INR Sodium 140 Potassium 4.0 Chloride 104 Carbon Dioxide 23 Anion Gap 17 BUN 92 H Creatinine 3.59 H Estim Creat Clear Calc 25.4 Estimated GFR 17 POC Glucose 192 H 181 H Random Glucose 211 H Fasting Glucose Lactic Acid Calcium 8.0 L Iron TIBC % Saturation Unsat Iron Binding Total Bilirubin Direct Bilirubin AST ALT Alkaline Phosphatase Ammonia Lactate Dehydrogenase Troponin I High Sens B-Natriuretic Peptide Total Protein Albumin Vitamin B12 Folate Urine Color Urine Appearance Urine pH Ur Specific [place] Urine Protein Urine Glucose (UA) Urine Ketones Urine Blood Urine Nitrite Ur Leukocyte Esterase Urine RBC Urine WBC Ur Squamous Epith Cells Urine Bacteria Urine Mucus Random Vancomycin C. difficile Tox B Gene COVID-19 (JAS) COVID-19 Clin Com Hep Bs Antigen Hep Bs Antibody Hep B Core Total Ab Influenza Type A (PCR) Influenza Type B (PCR) RSV RNA Qual (PCR) SARS-CoV-2 RNA (RT-PCR) 06/27/22 06/27/22 06/27/22 14:18 15:34 19:20 WBC RBC Hgb Hct MCV MCH MCHC RDW Plt Count MPV Immature Gran % (Auto) Neut % (Auto) Lymph % (Auto) [place] % (Auto) Eos % (Auto) Baso % (Auto) Lymph # (Auto) [place] # (Auto) Eos # (Auto) Baso # (Auto) Abs Immat Gran (auto) Absolute Neuts (auto) Absolute Nucleated RBC Nucleated RBC % (auto) Neutrophils % (Manual) Band Neutrophils % Lymphocytes % (Manual) Monocytes % (Manual) Eosinophils % (Manual) Basophils % (Manual) Abs Neuts (Manual) Lymphocytes # (Manual) Monocytes # (Manual) Eosinophils # (Manual) Basophils # (Manual) Platelet Estimate Plt Morphology Comment RBC Morphology Hypochromasia Macrocytosis Tear Drop Cells Fany Cells Schistocytes Smear Path Review Absolute Retic Percent Retic Immature Retic Fraction Retic Hgb Equivalent Haptoglobin PT INR Sodium Potassium Chloride Carbon Dioxide Anion Gap BUN Creatinine Estim Creat Clear Calc Estimated GFR POC Glucose 185 H 196 H Random Glucose Fasting Glucose Lactic Acid Calcium Iron TIBC % Saturation Unsat Iron Binding Total Bilirubin Direct Bilirubin AST ALT Alkaline Phosphatase Ammonia Lactate Dehydrogenase Troponin I High Sens B-Natriuretic Peptide Total Protein Albumin Vitamin B12 Folate Urine Color Urine Appearance Urine pH Ur Specific [place] Urine Protein Urine Glucose (UA) Urine Ketones Urine Blood Urine Nitrite Ur Leukocyte Esterase Urine RBC Urine WBC Ur Squamous Epith Cells Urine Bacteria Urine Mucus Random Vancomycin 9.2 L C. difficile Tox B Gene COVID-19 (JAS) COVID-19 Clin Com Hep Bs Antigen Hep Bs Antibody Hep B Core Total Ab Influenza Type A (PCR) Influenza Type B (PCR) RSV RNA Qual (PCR) SARS-CoV-2 RNA (RT-PCR) 06/28/22 06/28/22 06/28/22 05:57 05:57 05:57 WBC 6.9 RBC 2.27 L Hgb 7.4 L Hct 22.7 L MCV 100.0 H MCH 32.6 MCHC 32.6 RDW 19.6 H Plt Count 64 L MPV 12.2 Immature Gran % (Auto) Neut % (Auto) Lymph % (Auto) [place] % (Auto) Eos % (Auto) Baso % (Auto) Lymph # (Auto) [place] # (Auto) Eos # (Auto) Baso # (Auto) Abs Immat Gran (auto) Absolute Neuts (auto) Absolute Nucleated RBC 0.000 Nucleated RBC % (auto) 0.0 Neutrophils % (Manual) Band Neutrophils % Lymphocytes % (Manual) Monocytes % (Manual) Eosinophils % (Manual) Basophils % (Manual) Abs Neuts (Manual) Lymphocytes # (Manual) Monocytes # (Manual) Eosinophils # (Manual) Basophils # (Manual) Platelet Estimate Plt Morphology Comment RBC Morphology Hypochromasia Macrocytosis Tear Drop Cells Fany Cells Schistocytes Smear Path Review Absolute Retic Percent Retic Immature Retic Fraction Retic Hgb Equivalent Haptoglobin 57 PT INR Sodium 138 Potassium 4.0 Chloride 102 Carbon Dioxide 24 Anion Gap 16 BUN 96 H Creatinine 3.73 H Estim Creat Clear Calc 24.5 Estimated GFR 17 POC Glucose Random Glucose 181 H Fasting Glucose Lactic Acid Calcium 7.9 L Iron TIBC % Saturation Unsat Iron Binding Total Bilirubin Direct Bilirubin AST ALT Alkaline Phosphatase Ammonia Lactate Dehydrogenase Troponin I High Sens B-Natriuretic Peptide Total Protein Albumin Vitamin B12 Folate Urine Color Urine Appearance Urine pH Ur Specific [place] Urine Protein Urine Glucose (UA) Urine Ketones Urine Blood Urine Nitrite Ur Leukocyte Esterase Urine RBC Urine WBC Ur Squamous Epith Cells Urine Bacteria Urine Mucus Random Vancomycin C. difficile Tox B Gene COVID-19 (JAS) COVID-19 Clin Com Hep Bs Antigen Hep Bs Antibody Hep B Core Total Ab Influenza Type A (PCR) Influenza Type B (PCR) RSV RNA Qual (PCR) SARS-CoV-2 RNA (RT-PCR) 06/28/22 06/28/22 06/28/22 07:23 11:30 16:47 WBC RBC Hgb Hct MCV MCH MCHC RDW Plt Count MPV Immature Gran % (Auto) Neut % (Auto) Lymph % (Auto) [place] % (Auto) Eos % (Auto) Baso % (Auto) Lymph # (Auto) [place] # (Auto) Eos # (Auto) Baso # (Auto) Abs Immat Gran (auto) Absolute Neuts (auto) Absolute Nucleated RBC Nucleated RBC % (auto) Neutrophils % (Manual) Band Neutrophils % Lymphocytes % (Manual) Monocytes % (Manual) Eosinophils % (Manual) Basophils % (Manual) Abs Neuts (Manual) Lymphocytes # (Manual) Monocytes # (Manual) Eosinophils # (Manual) Basophils # (Manual) Platelet Estimate Plt Morphology Comment RBC Morphology Hypochromasia Macrocytosis Tear Drop Cells Fany Cells Schistocytes Smear Path Review Absolute Retic Percent Retic Immature Retic Fraction Retic Hgb Equivalent Haptoglobin PT INR Sodium Potassium Chloride Carbon Dioxide Anion Gap BUN Creatinine Estim Creat Clear Calc Estimated GFR POC Glucose 172 H 153 H 169 H Random Glucose Fasting Glucose Lactic Acid Calcium Iron TIBC % Saturation Unsat Iron Binding Total Bilirubin Direct Bilirubin AST ALT Alkaline Phosphatase Ammonia Lactate Dehydrogenase Troponin I High Sens B-Natriuretic Peptide Total Protein Albumin Vitamin B12 Folate Urine Color Urine Appearance Urine pH Ur Specific [place] Urine Protein Urine Glucose (UA) Urine Ketones Urine Blood Urine Nitrite Ur Leukocyte Esterase Urine RBC Urine WBC Ur Squamous Epith Cells Urine Bacteria Urine Mucus Random Vancomycin C. difficile Tox B Gene COVID-19 (JAS) COVID-19 Clin Com Hep Bs Antigen Hep Bs Antibody Hep B Core Total Ab Influenza Type A (PCR) Influenza Type B (PCR) RSV RNA Qual (PCR) SARS-CoV-2 RNA (RT-PCR) 06/28/22 06/29/22 06/29/22 21:03 06:09 06:09 WBC 5.6 RBC 2.39 L Hgb 7.7 L Hct 23.6 L MCV 98.7 H MCH 32.2 MCHC 32.6 RDW 19.0 H Plt Count 59 L MPV 12.8 H Immature Gran % (Auto) Neut % (Auto) Lymph % (Auto) [place] % (Auto) Eos % (Auto) Baso % (Auto) Lymph # (Auto) [place] # (Auto) Eos # (Auto) Baso # (Auto) Abs Immat Gran (auto) Absolute Neuts (auto) Absolute Nucleated RBC 0.000 Nucleated RBC % (auto) 0.0 Neutrophils % (Manual) Band Neutrophils % Lymphocytes % (Manual) Monocytes % (Manual) Eosinophils % (Manual) Basophils % (Manual) Abs Neuts (Manual) Lymphocytes # (Manual) Monocytes # (Manual) Eosinophils # (Manual) Basophils # (Manual) Platelet Estimate Plt Morphology Comment RBC Morphology Hypochromasia Macrocytosis Tear Drop Cells Fany Cells Schistocytes Smear Path Review Absolute Retic Percent Retic Immature Retic Fraction Retic Hgb Equivalent Haptoglobin PT INR Sodium 137 Potassium 4.4 Chloride 100 Carbon Dioxide 22 Anion Gap 19 BUN 102 H Creatinine 4.12 H* Estim Creat Clear Calc 22.1 Estimated GFR 15 POC Glucose 170 H Random Glucose 286 H D Fasting Glucose Lactic Acid Calcium 8.0 L Iron TIBC % Saturation Unsat Iron Binding Total Bilirubin Direct Bilirubin AST ALT Alkaline Phosphatase Ammonia Lactate Dehydrogenase Troponin I High Sens B-Natriuretic Peptide Total Protein Albumin Vitamin B12 Folate Urine Color Urine Appearance Urine pH Ur Specific [place] Urine Protein Urine Glucose (UA) Urine Ketones Urine Blood Urine Nitrite Ur Leukocyte Esterase Urine RBC Urine WBC Ur Squamous Epith Cells Urine Bacteria Urine Mucus Random Vancomycin C. difficile Tox B Gene COVID-19 (JAS) COVID-19 Clin Com Hep Bs Antigen Hep Bs Antibody Hep B Core Total Ab Influenza Type A (PCR) Influenza Type B (PCR) RSV RNA Qual (PCR) SARS-CoV-2 RNA (RT-PCR) 06/29/22 06/29/22 06/29/22 07:47 10:59 17:44 WBC RBC Hgb Hct MCV MCH MCHC RDW Plt Count MPV Immature Gran % (Auto) Neut % (Auto) Lymph % (Auto) [place] % (Auto) Eos % (Auto) Baso % (Auto) Lymph # (Auto) [place] # (Auto) Eos # (Auto) Baso # (Auto) Abs Immat Gran (auto) Absolute Neuts (auto) Absolute Nucleated RBC Nucleated RBC % (auto) Neutrophils % (Manual) Band Neutrophils % Lymphocytes % (Manual) Monocytes % (Manual) Eosinophils % (Manual) Basophils % (Manual) Abs Neuts (Manual) Lymphocytes # (Manual) Monocytes # (Manual) Eosinophils # (Manual) Basophils # (Manual) Platelet Estimate Plt Morphology Comment RBC Morphology Hypochromasia Macrocytosis Tear Drop Cells Fany Cells Schistocytes Smear Path Review Absolute Retic Percent Retic Immature Retic Fraction Retic Hgb Equivalent Haptoglobin PT INR Sodium Potassium Chloride Carbon Dioxide Anion Gap BUN Creatinine Estim Creat Clear Calc Estimated GFR POC Glucose 249 H 255 H 212 H Random Glucose Fasting Glucose Lactic Acid Calcium Iron TIBC % Saturation Unsat Iron Binding Total Bilirubin Direct Bilirubin AST ALT Alkaline Phosphatase Ammonia Lactate Dehydrogenase Troponin I High Sens B-Natriuretic Peptide Total Protein Albumin Vitamin B12 Folate Urine Color Urine Appearance Urine pH Ur Specific [place] Urine Protein Urine Glucose (UA) Urine Ketones Urine Blood Urine Nitrite Ur Leukocyte Esterase Urine RBC Urine WBC Ur Squamous Epith Cells Urine Bacteria Urine Mucus Random Vancomycin C. difficile Tox B Gene COVID-19 (JAS) COVID-19 Clin Com Hep Bs Antigen Hep Bs Antibody Hep B Core Total Ab Influenza Type A (PCR) Influenza Type B (PCR) RSV RNA Qual (PCR) SARS-CoV-2 RNA (RT-PCR) 06/29/22 06/30/22 06/30/22 20:22 06:46 06:46 WBC 8.7 RBC 2.46 L Hgb 7.9 L Hct 24.2 L MCV 98.4 H MCH 32.1 MCHC 32.6 RDW 18.7 H Plt Count 100 L D MPV 11.7 Immature Gran % (Auto) Neut % (Auto) Lymph % (Auto) [place] % (Auto) Eos % (Auto) Baso % (Auto) Lymph # (Auto) [place] # (Auto) Eos # (Auto) Baso # (Auto) Abs Immat Gran (auto) Absolute Neuts (auto) Absolute Nucleated RBC 0.000 Nucleated RBC % (auto) 0.0 Neutrophils % (Manual) Band Neutrophils % Lymphocytes % (Manual) Monocytes % (Manual) Eosinophils % (Manual) Basophils % (Manual) Abs Neuts (Manual) Lymphocytes # (Manual) Monocytes # (Manual) Eosinophils # (Manual) Basophils # (Manual) Platelet Estimate Plt Morphology Comment RBC Morphology Hypochromasia Macrocytosis Tear Drop Cells Fany Cells Schistocytes Smear Path Review Absolute Retic Percent Retic Immature Retic Fraction Retic Hgb Equivalent Haptoglobin PT INR Sodium 138 Potassium 3.9 Chloride 100 Carbon Dioxide 23 Anion Gap 19 BUN 112 H Creatinine 4.56 H* Estim Creat Clear Calc 20.0 Estimated GFR 13 POC Glucose 230 H Random Glucose 272 H Fasting Glucose Lactic Acid Calcium 8.5 D Iron TIBC % Saturation Unsat Iron Binding Total Bilirubin Direct Bilirubin AST ALT Alkaline Phosphatase Ammonia Lactate Dehydrogenase Troponin I High Sens B-Natriuretic Peptide Total Protein Albumin Vitamin B12 Folate Urine Color Urine Appearance Urine pH Ur Specific [place] Urine Protein Urine Glucose (UA) Urine Ketones Urine Blood Urine Nitrite Ur Leukocyte Esterase Urine RBC Urine WBC Ur Squamous Epith Cells Urine Bacteria Urine Mucus Random Vancomycin C. difficile Tox B Gene COVID-19 (JAS) COVID-19 Clin Com Hep Bs Antigen Hep Bs Antibody Hep B Core Total Ab Influenza Type A (PCR) Influenza Type B (PCR) RSV RNA Qual (PCR) SARS-CoV-2 RNA (RT-PCR) 06/30/22 06/30/22 06/30/22 06:46 06:46 07:20 WBC RBC Hgb Hct MCV MCH MCHC RDW Plt Count MPV Immature Gran % (Auto) Neut % (Auto) Lymph % (Auto) [place] % (Auto) Eos % (Auto) Baso % (Auto) Lymph # (Auto) [place] # (Auto) Eos # (Auto) Baso # (Auto) Abs Immat Gran (auto) Absolute Neuts (auto) Absolute Nucleated RBC Nucleated RBC % (auto) Neutrophils % (Manual) Band Neutrophils % Lymphocytes % (Manual) Monocytes % (Manual) Eosinophils % (Manual) Basophils % (Manual) Abs Neuts (Manual) Lymphocytes # (Manual) Monocytes # (Manual) Eosinophils # (Manual) Basophils # (Manual) Platelet Estimate Plt Morphology Comment RBC Morphology Hypochromasia Macrocytosis Tear Drop Cells [place] Cells Schistocytes Smear Path Review Absolute Retic Percent Retic Immature Retic Fraction Retic Hgb Equivalent Haptoglobin PT 14.3 H INR 1.2 H Sodium Potassium Chloride Carbon Dioxide Anion Gap BUN Creatinine Estim Creat Clear Calc Estimated GFR POC Glucose 243 H Random Glucose Fasting Glucose Lactic Acid Calcium Iron TIBC % Saturation Unsat Iron Binding Total Bilirubin Direct Bilirubin AST ALT Alkaline Phosphatase Ammonia Lactate Dehydrogenase Troponin I High Sens B-Natriuretic Peptide Total Protein Albumin Vitamin B12 Folate Urine Color Urine Appearance Urine pH Ur Specific [place] Urine Protein Urine Glucose (UA) Urine Ketones Urine Blood Urine Nitrite Ur Leukocyte Esterase Urine RBC Urine WBC Ur Squamous Epith Cells Urine Bacteria Urine Mucus Random Vancomycin C. difficile Tox B Gene COVID-19 (JAS) COVID-19 Clin Com Hep Bs Antigen Negative Hep Bs Antibody NONREACTIVE Hep B Core Total Ab Nonreactive Influenza Type A (PCR) Influenza Type B (PCR) RSV RNA Qual (PCR) SARS-CoV-2 RNA (RT-PCR) 06/30/22 06/30/22 06/30/22 11:00 16:19 19:37 WBC RBC Hgb Hct MCV MCH MCHC RDW Plt Count MPV Immature Gran % (Auto) Neut % (Auto) Lymph % (Auto) [place] % (Auto) Eos % (Auto) Baso % (Auto) Lymph # (Auto) [place] # (Auto) Eos # (Auto) Baso # (Auto) Abs Immat Gran (auto) Absolute Neuts (auto) Absolute Nucleated RBC Nucleated RBC % (auto) Neutrophils % (Manual) Band Neutrophils % Lymphocytes % (Manual) Monocytes % (Manual) Eosinophils % (Manual) Basophils % (Manual) Abs Neuts (Manual) Lymphocytes # (Manual) Monocytes # (Manual) Eosinophils # (Manual) Basophils # (Manual) Platelet Estimate Plt Morphology Comment RBC Morphology Hypochromasia Macrocytosis Tear Drop Cells Fany Cells Schistocytes Smear Path Review Absolute Retic Percent Retic Immature Retic Fraction Retic Hgb Equivalent Haptoglobin PT INR Sodium Potassium Chloride Carbon Dioxide Anion Gap BUN Creatinine Estim Creat Clear Calc Estimated GFR POC Glucose 216 H 157 H 152 H Random Glucose Fasting Glucose Lactic Acid Calcium Iron TIBC % Saturation Unsat Iron Binding Total Bilirubin Direct Bilirubin AST ALT Alkaline Phosphatase Ammonia Lactate Dehydrogenase Troponin I High Sens B-Natriuretic Peptide Total Protein Albumin Vitamin B12 Folate Urine Color Urine Appearance Urine pH Ur Specific [place] Urine Protein Urine Glucose (UA) Urine Ketones Urine Blood Urine Nitrite Ur Leukocyte Esterase Urine RBC Urine WBC Ur Squamous Epith Cells Urine Bacteria Urine Mucus Random Vancomycin C. difficile Tox B Gene COVID-19 (JAS) COVID-19 Clin Com Hep Bs Antigen Hep Bs Antibody Hep B Core Total Ab Influenza Type A (PCR) Influenza Type B (PCR) RSV RNA Qual (PCR) SARS-CoV-2 RNA (RT-PCR) 07/01/22 07/01/22 07/01/22 06:18 06:18 06:18 WBC 2.2 L RBC 2.57 L Hgb 8.2 L Hct 24.8 L MCV 96.5 MCH 31.9 MCHC 33.1 RDW 18.1 H Plt Count 81 L MPV 11.8 Immature Gran % (Auto) Neut % (Auto) Lymph % (Auto) [place] % (Auto) Eos % (Auto) Baso % (Auto) Lymph # (Auto) [place] # (Auto) Eos # (Auto) Baso # (Auto) Abs Immat Gran (auto) Absolute Neuts (auto) Absolute Nucleated RBC 0.000 Nucleated RBC % (auto) 0.0 Neutrophils % (Manual) Band Neutrophils % Lymphocytes % (Manual) Monocytes % (Manual) Eosinophils % (Manual) Basophils % (Manual) Abs Neuts (Manual) Lymphocytes # (Manual) Monocytes # (Manual) Eosinophils # (Manual) Basophils # (Manual) Platelet Estimate Plt Morphology Comment RBC Morphology Hypochromasia Macrocytosis Tear Drop Cells Fany Cells Schistocytes Smear Path Review Absolute Retic Percent Retic Immature Retic Fraction Retic Hgb Equivalent Haptoglobin PT 15.8 H INR 1.4 H Sodium 135 Potassium 3.6 Chloride 100 Carbon Dioxide 23 Anion Gap 16 BUN 79 H Creatinine 3.40 H Estim Creat Clear Calc 26.8 Estimated GFR 18 POC Glucose Random Glucose 142 H D Fasting Glucose Lactic Acid Calcium 7.7 L D Iron TIBC % Saturation Unsat Iron Binding Total Bilirubin Direct Bilirubin AST ALT Alkaline Phosphatase Ammonia Lactate Dehydrogenase Troponin I High Sens B-Natriuretic Peptide Total Protein Albumin Vitamin B12 Folate Urine Color Urine Appearance Urine pH Ur Specific [place] Urine Protein Urine Glucose (UA) Urine Ketones Urine Blood Urine Nitrite Ur Leukocyte Esterase Urine RBC Urine WBC Ur Squamous Epith Cells Urine Bacteria Urine Mucus Random Vancomycin C. difficile Tox B Gene COVID-19 (JAS) COVID-19 Clin Com Hep Bs Antigen Hep Bs Antibody Hep B Core Total Ab Influenza Type A (PCR) Influenza Type B (PCR) RSV RNA Qual (PCR) SARS-CoV-2 RNA (RT-PCR) 07/01/22 07/01/22 07/01/22 09:54 11:23 16:29 WBC RBC Hgb Hct MCV MCH MCHC RDW Plt Count MPV Immature Gran % (Auto) Neut % (Auto) Lymph % (Auto) [place] % (Auto) Eos % (Auto) Baso % (Auto) Lymph # (Auto) [place] # (Auto) Eos # (Auto) Baso # (Auto) Abs Immat Gran (auto) Absolute Neuts (auto) Absolute Nucleated RBC Nucleated RBC % (auto) Neutrophils % (Manual) Band Neutrophils % Lymphocytes % (Manual) Monocytes % (Manual) Eosinophils % (Manual) Basophils % (Manual) Abs Neuts (Manual) Lymphocytes # (Manual) Monocytes # (Manual) Eosinophils # (Manual) Basophils # (Manual) Platelet Estimate Plt Morphology Comment RBC Morphology Hypochromasia Macrocytosis Tear Drop Cells Fany Cells Schistocytes Smear Path Review Absolute Retic Percent Retic Immature Retic Fraction Retic Hgb Equivalent Haptoglobin PT INR Sodium Potassium Chloride Carbon Dioxide Anion Gap BUN Creatinine Estim Creat Clear Calc Estimated GFR POC Glucose 111 117 H 132 H Random Glucose Fasting Glucose Lactic Acid Calcium Iron TIBC % Saturation Unsat Iron Binding Total Bilirubin Direct Bilirubin AST ALT Alkaline Phosphatase Ammonia Lactate Dehydrogenase Troponin I High Sens B-Natriuretic Peptide Total Protein Albumin Vitamin B12 Folate Urine Color Urine Appearance Urine pH Ur Specific [place] Urine Protein Urine Glucose (UA) Urine Ketones Urine Blood Urine Nitrite Ur Leukocyte Esterase Urine RBC Urine WBC Ur Squamous Epith Cells Urine Bacteria Urine Mucus Random Vancomycin C. difficile Tox B Gene COVID-19 (JAS) COVID-19 Clin Com Hep Bs Antigen Hep Bs Antibody Hep B Core Total Ab Influenza Type A (PCR) Influenza Type B (PCR) RSV RNA Qual (PCR) SARS-CoV-2 RNA (RT-PCR) 07/01/22 07/02/22 07/02/22 20:21 06:27 06:27 WBC 13.3 H RBC 2.72 L Hgb 8.6 L Hct 26.0 L MCV 95.6 MCH 31.6 MCHC 33.1 RDW 17.5 H Plt Count 102 L D MPV 11.7 Immature Gran % (Auto) Neut % (Auto) Lymph % (Auto) [place] % (Auto) Eos % (Auto) Baso % (Auto) Lymph # (Auto) [place] # (Auto) Eos # (Auto) Baso # (Auto) Abs Immat Gran (auto) Absolute Neuts (auto) Absolute Nucleated RBC 0.000 Nucleated RBC % (auto) 0.0 Neutrophils % (Manual) Band Neutrophils % Lymphocytes % (Manual) Monocytes % (Manual) Eosinophils % (Manual) Basophils % (Manual) Abs Neuts (Manual) Lymphocytes # (Manual) Monocytes # (Manual) Eosinophils # (Manual) Basophils # (Manual) Platelet Estimate Plt Morphology Comment RBC Morphology Hypochromasia Macrocytosis Tear Drop Cells [place] Cells Schistocytes Smear Path Review Absolute Retic Percent Retic Immature Retic Fraction Retic Hgb Equivalent Haptoglobin PT INR Sodium 133 L Potassium 4.0 Chloride 98 Carbon Dioxide 20 L Anion Gap 19 BUN 63 H Creatinine 3.29 H Estim Creat Clear Calc 27.7 Estimated GFR 19 POC Glucose 138 H Random Glucose Fasting Glucose 140 H Lactic Acid Calcium 7.8 L Iron TIBC % Saturation Unsat Iron Binding Total Bilirubin Direct Bilirubin AST ALT Alkaline Phosphatase Ammonia Lactate Dehydrogenase Troponin I High Sens B-Natriuretic Peptide Total Protein Albumin Vitamin B12 Folate Urine Color Urine Appearance Urine pH Ur Specific [place] Urine Protein Urine Glucose (UA) Urine Ketones Urine Blood Urine Nitrite Ur Leukocyte Esterase Urine RBC Urine WBC Ur Squamous Epith Cells Urine Bacteria Urine Mucus Random Vancomycin C. difficile Tox B Gene COVID-19 (JAS) COVID-19 Clin Com Hep Bs Antigen Hep Bs Antibody Hep B Core Total Ab Influenza Type A (PCR) Influenza Type B (PCR) RSV RNA Qual (PCR) SARS-CoV-2 RNA (RT-PCR) 07/02/22 07/02/22 07/02/22 07:28 11:15 16:01 WBC RBC Hgb Hct MCV MCH MCHC RDW Plt Count MPV Immature Gran % (Auto) Neut % (Auto) Lymph % (Auto) [place] % (Auto) Eos % (Auto) Baso % (Auto) Lymph # (Auto) [place] # (Auto) Eos # (Auto) Baso # (Auto) Abs Immat Gran (auto) Absolute Neuts (auto) Absolute Nucleated RBC Nucleated RBC % (auto) Neutrophils % (Manual) Band Neutrophils % Lymphocytes % (Manual) Monocytes % (Manual) Eosinophils % (Manual) Basophils % (Manual) Abs Neuts (Manual) Lymphocytes # (Manual) Monocytes # (Manual) Eosinophils # (Manual) Basophils # (Manual) Platelet Estimate Plt Morphology Comment RBC Morphology Hypochromasia Macrocytosis Tear Drop Cells [place] Cells Schistocytes Smear Path Review Absolute Retic Percent Retic Immature Retic Fraction Retic Hgb Equivalent Haptoglobin PT INR Sodium Potassium Chloride Carbon Dioxide Anion Gap BUN Creatinine Estim Creat Clear Calc Estimated GFR POC Glucose 129 H 147 H 138 H Random Glucose Fasting Glucose Lactic Acid Calcium Iron TIBC % Saturation Unsat Iron Binding Total Bilirubin Direct Bilirubin AST ALT Alkaline Phosphatase Ammonia Lactate Dehydrogenase Troponin I High Sens B-Natriuretic Peptide Total Protein Albumin Vitamin B12 Folate Urine Color Urine Appearance Urine pH Ur Specific [place] Urine Protein Urine Glucose (UA) Urine Ketones Urine Blood Urine Nitrite Ur Leukocyte Esterase Urine RBC Urine WBC Ur Squamous Epith Cells Urine Bacteria Urine Mucus Random Vancomycin C. difficile Tox B Gene COVID-19 (JAS) COVID-19 Clin Com Hep Bs Antigen Hep Bs Antibody Hep B Core Total Ab Influenza Type A (PCR) Influenza Type B (PCR) RSV RNA Qual (PCR) SARS-CoV-2 RNA (RT-PCR) 07/02/22 07/03/22 07/03/22 20:10 06:13 06:13 WBC 16.3 H RBC 2.61 L Hgb 8.3 L Hct 24.8 L MCV 95.0 MCH 31.8 MCHC 33.5 RDW 18.0 H Plt Count 136 L D MPV 11.1 Immature Gran % (Auto) Neut % (Auto) Lymph % (Auto) [place] % (Auto) Eos % (Auto) Baso % (Auto) Lymph # (Auto) [place] # (Auto) Eos # (Auto) Baso # (Auto) Abs Immat Gran (auto) Absolute Neuts (auto) Absolute Nucleated RBC 0.000 Nucleated RBC % (auto) 0.0 Neutrophils % (Manual) Band Neutrophils % Lymphocytes % (Manual) Monocytes % (Manual) Eosinophils % (Manual) Basophils % (Manual) Abs Neuts (Manual) Lymphocytes # (Manual) Monocytes # (Manual) Eosinophils # (Manual) Basophils # (Manual) Platelet Estimate Plt Morphology Comment RBC Morphology Hypochromasia Macrocytosis Tear Drop Cells Fany Cells Schistocytes Smear Path Review Absolute Retic Percent Retic Immature Retic Fraction Retic Hgb Equivalent Haptoglobin PT INR Sodium 132 L Potassium 4.0 Chloride 98 Carbon Dioxide 19 L Anion Gap 19 BUN 71 H Creatinine 3.82 H Estim Creat Clear Calc 23.9 Estimated GFR 16 POC Glucose 145 H Random Glucose Fasting Glucose 161 H Lactic Acid Calcium 8.1 L Iron TIBC % Saturation Unsat Iron Binding Total Bilirubin Direct Bilirubin AST ALT Alkaline Phosphatase Ammonia Lactate Dehydrogenase Troponin I High Sens B-Natriuretic Peptide Total Protein Albumin Vitamin B12 Folate Urine Color Urine Appearance Urine pH Ur Specific [place] Urine Protein Urine Glucose (UA) Urine Ketones Urine Blood Urine Nitrite Ur Leukocyte Esterase Urine RBC Urine WBC Ur Squamous Epith Cells Urine Bacteria Urine Mucus Random Vancomycin C. difficile Tox B Gene COVID-19 (JAS) COVID-19 Clin Com Hep Bs Antigen Hep Bs Antibody Hep B Core Total Ab Influenza Type A (PCR) Influenza Type B (PCR) RSV RNA Qual (PCR) SARS-CoV-2 RNA (RT-PCR) 07/03/22 07/03/22 07/03/22 07:18 11:01 16:43 WBC RBC Hgb Hct MCV MCH MCHC RDW Plt Count MPV Immature Gran % (Auto) Neut % (Auto) Lymph % (Auto) [place] % (Auto) Eos % (Auto) Baso % (Auto) Lymph # (Auto) [place] # (Auto) Eos # (Auto) Baso # (Auto) Abs Immat Gran (auto) Absolute Neuts (auto) Absolute Nucleated RBC Nucleated RBC % (auto) Neutrophils % (Manual) Band Neutrophils % Lymphocytes % (Manual) Monocytes % (Manual) Eosinophils % (Manual) Basophils % (Manual) Abs Neuts (Manual) Lymphocytes # (Manual) Monocytes # (Manual) Eosinophils # (Manual) Basophils # (Manual) Platelet Estimate Plt Morphology Comment RBC Morphology Hypochromasia Macrocytosis Tear Drop Cells Fany Cells Schistocytes Smear Path Review Absolute Retic Percent Retic Immature Retic Fraction Retic Hgb Equivalent Haptoglobin PT INR Sodium Potassium Chloride Carbon Dioxide Anion Gap BUN Creatinine Estim Creat Clear Calc Estimated GFR POC Glucose 154 H 150 H 194 H Random Glucose Fasting Glucose Lactic Acid Calcium Iron TIBC % Saturation Unsat Iron Binding Total Bilirubin Direct Bilirubin AST ALT Alkaline Phosphatase Ammonia Lactate Dehydrogenase Troponin I High Sens B-Natriuretic Peptide Total Protein Albumin Vitamin B12 Folate Urine Color Urine Appearance Urine pH Ur Specific [place] Urine Protein Urine Glucose (UA) Urine Ketones Urine Blood Urine Nitrite Ur Leukocyte Esterase Urine RBC Urine WBC Ur Squamous Epith Cells Urine Bacteria Urine Mucus Random Vancomycin C. difficile Tox B Gene COVID-19 (JAS) COVID-19 Clin Com Hep Bs Antigen Hep Bs Antibody Hep B Core Total Ab Influenza Type A (PCR) Influenza Type B (PCR) RSV RNA Qual (PCR) SARS-CoV-2 RNA (RT-PCR) 07/03/22 07/04/22 07/04/22 21:01 06:39 06:39 WBC 16.1 H RBC 2.64 L Hgb 8.2 L Hct 25.2 L MCV 95.5 MCH 31.1 MCHC 32.5 RDW 17.9 H Plt Count 120 L MPV 11.1 Immature Gran % (Auto) Neut % (Auto) Lymph % (Auto) [place] % (Auto) Eos % (Auto) Baso % (Auto) Lymph # (Auto) [place] # (Auto) Eos # (Auto) Baso # (Auto) Abs Immat Gran (auto) Absolute Neuts (auto) Absolute Nucleated RBC 0.000 Nucleated RBC % (auto) 0.0 Neutrophils % (Manual) Band Neutrophils % Lymphocytes % (Manual) Monocytes % (Manual) Eosinophils % (Manual) Basophils % (Manual) Abs Neuts (Manual) Lymphocytes # (Manual) Monocytes # (Manual) Eosinophils # (Manual) Basophils # (Manual) Platelet Estimate Plt Morphology Comment RBC Morphology Hypochromasia Macrocytosis Tear Drop Cells [place] Cells Schistocytes Smear Path Review Absolute Retic Percent Retic Immature Retic Fraction Retic Hgb Equivalent Haptoglobin PT INR Sodium 133 L Potassium 3.9 Chloride 98 Carbon Dioxide 20 L Anion Gap 19 BUN 74 H Creatinine 4.26 H* Estim Creat Clear Calc 21.4 Estimated GFR 14 POC Glucose 166 H Random Glucose Fasting Glucose 180 H Lactic Acid Calcium 8.0 L Iron TIBC % Saturation Unsat Iron Binding Total Bilirubin Direct Bilirubin AST ALT Alkaline Phosphatase Ammonia Lactate Dehydrogenase Troponin I High Sens B-Natriuretic Peptide Total Protein Albumin Vitamin B12 Folate Urine Color Urine Appearance Urine pH Ur Specific [place] Urine Protein Urine Glucose (UA) Urine Ketones Urine Blood Urine Nitrite Ur Leukocyte Esterase Urine RBC Urine WBC Ur Squamous Epith Cells Urine Bacteria Urine Mucus Random Vancomycin C. difficile Tox B Gene COVID-19 (JAS) COVID-19 Clin Com Hep Bs Antigen Hep Bs Antibody Hep B Core Total Ab Influenza Type A (PCR) Influenza Type B (PCR) RSV RNA Qual (PCR) SARS-CoV-2 RNA (RT-PCR) 07/04/22 07/04/22 07/04/22 07:41 10:25 11:42 WBC RBC Hgb Hct MCV MCH MCHC RDW Plt Count MPV Immature Gran % (Auto) Neut % (Auto) Lymph % (Auto) Russell % (Auto) Eos % (Auto) Baso % (Auto) Lymph # (Auto) Russell # (Auto) Eos # (Auto) Baso # (Auto) Abs Immat Gran (auto) Absolute Neuts (auto) Absolute Nucleated RBC Nucleated RBC % (auto) Neutrophils % (Manual) Band Neutrophils % Lymphocytes % (Manual) Monocytes % (Manual) Eosinophils % (Manual) Basophils % (Manual) Abs Neuts (Manual) Lymphocytes # (Manual) Monocytes # (Manual) Eosinophils # (Manual) Basophils # (Manual) Platelet Estimate Plt Morphology Comment RBC Morphology Hypochromasia Macrocytosis Tear Drop Cells [place] Cells Schistocytes Smear Path Review Absolute Retic Percent Retic Immature Retic Fraction Retic Hgb Equivalent Haptoglobin PT INR Sodium Potassium Chloride Carbon Dioxide Anion Gap BUN Creatinine Estim Creat Clear Calc Estimated GFR POC Glucose 171 H 153 H 149 H Random Glucose Fasting Glucose Lactic Acid Calcium Iron TIBC % Saturation Unsat Iron Binding Total Bilirubin Direct Bilirubin AST ALT Alkaline Phosphatase Ammonia Lactate Dehydrogenase Troponin I High Sens B-Natriuretic Peptide Total Protein Albumin Vitamin B12 Folate Urine Color Urine Appearance Urine pH Ur Specific [place] Urine Protein Urine Glucose (UA) Urine Ketones Urine Blood Urine Nitrite Ur Leukocyte Esterase Urine RBC Urine WBC Ur Squamous Epith Cells Urine Bacteria Urine Mucus Random Vancomycin C. difficile Tox B Gene COVID-19 (JAS) COVID-19 Clin Com Hep Bs Antigen Hep Bs Antibody Hep B Core Total Ab Influenza Type A (PCR) Influenza Type B (PCR) RSV RNA Qual (PCR) SARS-CoV-2 RNA (RT-PCR) 07/04/22 07/04/22 07/05/22 16:06 19:23 05:27 WBC 24.2 H RBC 3.07 L Hgb 9.7 L Hct 28.8 L MCV 93.8 MCH 31.6 MCHC 33.7 RDW 17.8 H Plt Count 157 L D MPV 10.6 Immature Gran % (Auto) Neut % (Auto) Lymph % (Auto) Russell % (Auto) Eos % (Auto) Baso % (Auto) Lymph # (Auto) Russell # (Auto) Eos # (Auto) Baso # (Auto) Abs Immat Gran (auto) Absolute Neuts (auto) Absolute Nucleated RBC 0.000 Nucleated RBC % (auto) 0.0 Neutrophils % (Manual) Band Neutrophils % Lymphocytes % (Manual) Monocytes % (Manual) Eosinophils % (Manual) Basophils % (Manual) Abs Neuts (Manual) Lymphocytes # (Manual) Monocytes # (Manual) Eosinophils # (Manual) Basophils # (Manual) Platelet Estimate Plt Morphology Comment RBC Morphology Hypochromasia Macrocytosis Tear Drop Cells [place] Cells Schistocytes Smear Path Review Absolute Retic Percent Retic Immature Retic Fraction Retic Hgb Equivalent Haptoglobin PT INR Sodium Potassium Chloride Carbon Dioxide Anion Gap BUN Creatinine Estim Creat Clear Calc Estimated GFR POC Glucose 164 H 159 H Random Glucose Fasting Glucose Lactic Acid Calcium Iron TIBC % Saturation Unsat Iron Binding Total Bilirubin Direct Bilirubin AST ALT Alkaline Phosphatase Ammonia Lactate Dehydrogenase Troponin I High Sens B-Natriuretic Peptide Total Protein Albumin Vitamin B12 Folate Urine Color Urine Appearance Urine pH Ur Specific [place] Urine Protein Urine Glucose (UA) Urine Ketones Urine Blood Urine Nitrite Ur Leukocyte Esterase Urine RBC Urine WBC Ur Squamous Epith Cells Urine Bacteria Urine Mucus Random Vancomycin C. difficile Tox B Gene COVID-19 (JAS) COVID-19 Clin Com Hep Bs Antigen Hep Bs Antibody Hep B Core Total Ab Influenza Type A (PCR) Influenza Type B (PCR) RSV RNA Qual (PCR) SARS-CoV-2 RNA (RT-PCR) 07/05/22 07/05/22 05:27 07:53 WBC RBC Hgb Hct MCV MCH MCHC RDW Plt Count MPV Immature Gran % (Auto) Neut % (Auto) Lymph % (Auto) Russell % (Auto) Eos % (Auto) Baso % (Auto) Lymph # (Auto) Russell # (Auto) Eos # (Auto) Baso # (Auto) Abs Immat Gran (auto) Absolute Neuts (auto) Absolute Nucleated RBC Nucleated RBC % (auto) Neutrophils % (Manual) Band Neutrophils % Lymphocytes % (Manual) Monocytes % (Manual) Eosinophils % (Manual) Basophils % (Manual) Abs Neuts (Manual) Lymphocytes # (Manual) Monocytes # (Manual) Eosinophils # (Manual) Basophils # (Manual) Platelet Estimate Plt Morphology Comment RBC Morphology Hypochromasia Macrocytosis Tear Drop Cells [place] Cells Schistocytes Smear Path Review Absolute Retic Percent Retic Immature Retic Fraction Retic Hgb Equivalent Haptoglobin PT INR Sodium 133 L Potassium 4.2 Chloride 98 Carbon Dioxide 18 L Anion Gap 21 H BUN 78 H Creatinine 4.64 H* Estim Creat Clear Calc 19.7 Estimated GFR 13 POC Glucose 190 H Random Glucose Fasting Glucose 175 H Lactic Acid Calcium 8.0 L Iron TIBC % Saturation Unsat Iron Binding Total Bilirubin Direct Bilirubin AST ALT Alkaline Phosphatase Ammonia Lactate Dehydrogenase Troponin I High Sens B-Natriuretic Peptide Total Protein Albumin Vitamin B12 Folate Urine Color Urine Appearance Urine pH Ur Specific [place] Urine Protein Urine Glucose (UA) Urine Ketones Urine Blood Urine Nitrite Ur Leukocyte Esterase Urine RBC Urine WBC Ur Squamous Epith Cells Urine Bacteria Urine Mucus Random Vancomycin C. difficile Tox B Gene COVID-19 (JAS) COVID-19 Clin Com Hep Bs Antigen Hep Bs Antibody Hep B Core Total Ab Influenza Type A (PCR) Influenza Type B (PCR) RSV RNA Qual (PCR) SARS-CoV-2 RNA (RT-PCR) Airway Loose/Missing/Broken Teeth: Yes Lungs: labored breathing; wheezing Assessment and Plan Assessment Anesthesia Assessment: Anesthesia Plan Discussed and Chart Reviewed Final Anesthetic Review Family History of Problems with Anesthesia: No History of Problems with Anesthesia: No NPO: Yes ASA Class: IV Final Preanesthetic Review: No Changes in Pt Med Stat, Meds/Allgs Chart Reviewed, Consent Obtained/Reviewed (HCP) and Anes Risks/Benef Reviewed Patient Risk: High Procedure Risk: Intermediate Anesthetic Plan Anesthetic Plan: MAC: Disposition: Standard PACU and Inp. Admit - ICU (possibly - discussed with intensitivist)
--- NOTE | 2022-07-05 11:33 | PC.NURSE ---
11:15 PT WITH LOUD AUDIBLE RALES. SAT 79% 4l INCREASED O2 TO 6l NC WITHOUT EFFECT. TEXT TO DR. BECK FOR EVAL. FULL CODE. CHANGE TO MASK SAT 89%. 11:[address] TRAN IF HE WANTED TO ADMINISTER LASIX, DOES NOT.11:20 DR. BECK ARRIVAL. 11:25 CALL OVERHEAD RESP STAT TO SHORT STAY. 100% NRB APPLIED. SUCTION ORALLY YANKEUR FOR MODERATE YELLOW/BROWN. EXEC DIRECTOR OF SHORT STAY ISIDORO & DR. SANCHEZ ICU AT [facility]. ALONG WITH ANESTHESIOLOGIST OF FLOOR DR. KAUR. SATS 92% ON MASK/SIMPLE. CONTINUE TO MONITOR.
--- NOTE | 2022-07-05 11:36 | HO.PM.IMPN ---
Subjective Subjective Date of Service: 07/05/22 Interval History: cc: hypoxia interval history:abd distension, vomitting, tachypnea, hypoxia Review of Systems Review of Systems: Yes Unobtainable due to mental status Physical Exam Vital Signs: Vital Signs: Last Vital Signs Temp 98.9 F 07/05/22 10:08 Pulse 77 07/05/22 10:08 Resp 28 H 07/05/22 10:08 BP 125/49 L 07/05/22 10:08 Pulse Ox 90 L 07/05/22 10:08 O2 Del Method 07/05/22 10:08 O2 Flow Rate 4 07/05/22 10:08 Oxygen Flow Rate 6 06/20/22 11:59 BMI result Body Mass Index 29.1 General: obtunded, ill appearing Resp: Crackles bilateral, accessory muscles used, tachypenic CVS: S1,S2,rapid GI: large ascites, distended, gtube without residual Neuro: obtunded Psych: impaired insight Objective Data Active Medications Acetaminophen (Acetaminophen 325 Mg Tablet) 650 mg PO Q4H PRN PRN Reason: Fever Last Admin: 07/04/22 02:09 Dose: 650 mg Documented By: MARTINA Amlodipine Besylate (Amlodipine Besylate 10 Mg Tablet) 10 mg G-TUBE DAILY [facility]; Protocol Last Admin: 07/04/22 13:47 Dose: 10 mg Documented By: NERI Benztropine Mesylate (Benztropine Mesylate 1 Mg Tablet) 1 mg G-TUBE BID [facility] Last Admin: 07/04/22 20:58 Dose: 1 mg Documented By: SANJANA Bisacodyl (Bisacodyl 10 Mg Supp.Rect) 10 mg NE DAILY PRN PRN Reason: Constipation Carbidopa/Levodopa (Carbidopa/Levodopa 25/100 Tablet) 1 tab G-TUBE QID [facility] Last Admin: 07/04/22 20:57 Dose: 1 tab Documented By: SANJANA Dextrose (Dextrose 50 % 25 Gm/50 Ml Syringe) 25 gm IVPUSH Q15M PRN; Protocol PRN Reason: per Hypoglycemia Standing Ord. Docusate Sodium (Docusate Sodium 100 Mg/10 Ml Liquid) 100 mg G-TUBE BEDTIME [facility] Last Admin: 07/04/22 20:58 Dose: 100 mg Documented By: SANJANA Fluphenazine Decanoate (Fluphenazine Decanoate 25 Mg/Ml 5 Ml Vial) 50 mg IM Q14D [facility] Last Admin: 07/01/22 11:55 Dose: 50 mg Documented By: LUIS Gabapentin (Gabapentin 300 Mg Capsule) 300 mg G-TUBE TID [facility] Last Admin: 07/04/22 20:58 Dose: Not Given Documented By: SANJANA Non-Admin Reason: cant crush Glucose (Glucose Gel 15 Gm Gel..Gram.) 15 gm PO Q15M PRN; Protocol PRN Reason: per Hypoglycemia Standing Ord. Guaifenesin (Guaifenesin 100 Mg/5 Ml Liquid) 10 ml G-TUBE Q4H PRN PRN Reason: Cough Insulin Human Lispro (Insulin Lispro 100 Unit/Ml 3 Ml Vial) 0 unit SUBCUT QIDACHS [facility]; Protocol Last Admin: 07/04/22 21:49 Dose: 2 unit Documented By: SANJANA Lactulose (Lactulose 20 Gm/30 Ml Solution) 20 gm G-TUBE DAILY [facility] Last Admin: 07/04/22 13:52 Dose: 20 gm Documented By: NERI Levothyroxine Sodium (Levothyroxine Sodium 25 Mcg Tablet) 25 mcg G-TUBE DAILY@0600 [facility] Last Admin: 07/05/22 05:28 Dose: Not Given Documented By: MARIAH Non-Admin Reason: NPO Metoprolol Tartrate (Metoprolol Tartrate 25 Mg Tablet) 25 mg G-TUBE BID [facility]; Protocol Last Admin: 07/04/22 20:57 Dose: 25 mg Documented By: SANJANA Nystatin (Nystatin Powder 15 Gm Bottle) 1 appl TOPICAL BID [facility]; Protocol Last Admin: 07/04/22 21:02 Dose: 1 appl Documented By: SANJANA Olanzapine (Olanzapine 10 Mg Vial) 5 mg IM DAILY PRN PRN Reason: agitation Last Admin: 07/03/22 02:23 Dose: 5 mg Documented By: THANH Omeprazole (Omeprazole 20 Mg/10 Ml Susp.Recon) 40 mg G-TUBE DAILY@0630 [facility] Last Admin: 07/05/22 05:28 Dose: Not Given Documented By: MARIAH Non-Admin Reason: NPO Quetiapine Fumarate (Quetiapine Fumarate 25 Mg Tablet) 25 mg PO BID PRN PRN Reason: anxiety/restlessness Last Admin: 07/04/22 02:09 Dose: 25 mg Documented By: MARTINA Senna (Sennosides 8.6 Mg Tablet) 8.6 mg G-TUBE DAILY PRN PRN Reason: Constipation Sodium Bicarbonate (Sodium Bicarbonate 650 Mg Tablet) 650 mg G-TUBE TID [facility] Last Admin: 07/04/22 20:57 Dose: 650 mg Documented By: SANJANA Sodium Chloride (0.9 % Sodium Chloride Flush 3 Ml Syringe) 3 ml IVFLUSH QSHIFT [facility] Last Admin: 07/05/22 00:10 Dose: 3 ml Documented By: MARIAH Labs CBC & Chem 7: 07/05/22 05:27 07/05/22 05:27 Labs: Laboratory Results - last 24 hr 07/04/22 07/04/22 07/04/22 11:42 16:06 19:23 MCV MCH MCHC RDW Plt Count MPV Absolute Nucleated RBC Nucleated RBC % (auto) Anion Gap Estim Creat Clear Calc Estimated GFR POC Glucose 149 H 164 H 159 H Fasting Glucose Calcium 07/05/22 07/05/22 07/05/22 05:27 05:27 07:53 MCV 93.8 MCH 31.6 MCHC 33.7 RDW 17.8 H Plt Count 157 L D MPV 10.6 Absolute Nucleated RBC 0.000 Nucleated RBC % (auto) 0.0 Anion Gap 21 H Estim Creat Clear Calc 19.7 Estimated GFR 13 POC Glucose 190 H Fasting Glucose 175 H Calcium 8.0 L Assessment and Plan (1) Acute kidney injury superimposed on chronic kidney disease: Status: Acute (2) Acute respiratory failure with hypoxia: Status: Acute (3) Pneumonia: Status: Acute (4) Dysphagia, oropharyngeal phase: Status: Acute Plan 61-year-old gentleman resident of [facility] with past medical history of chronic kidney disease stage 3, hypertension, schizophrenia, diastolic heart failure with frequent hospitalization was recently discharged from [facility] on 06/16 after being treated for CHF exacerbation encephalopathy, with increasing confusion agitation, followed by an episode of vomiting and aspiration resulting in PE a arrest requiring intubation and admission to ICU, Subsequently required PEG tube placement due to dysphagia, return back to [facility] due to respiratory distress with significant hypoxia of 82-83% on 2 L subsequently course complicated by mango on ckd, started on HD via temporary catheter, now with tense ascites, vomitting, aspiration, worsening hypoxia and encephalopathy metabolic encephaloapthy and acute hypoxic respiratory failure due to aspiration in setting of vomiting from tense ascites plan for paracentesis and transfer to ICU Mango on CKD stage 3 started HD via temporary catheter was planned for kidney biopsy, postponed due to clinical decline CT scan showed no obstruction Pneumonia, aspiration on presentation CXR showed evidence of infiltrates blood cultures negative COVID-19 negative completed abx course Hypernatremia Improved free fluids 300 cc to q4h hyperkalemia Improved Chronic Anemia with elevated MCV suspect related to cirrhosis/splenomegaly/CKD Low iron stores normal B12 folate Finished 3 days of IV iron Stage II decubitus ulcer Local measures, dressing Rotating the patient in bed Parkinson's disease continue Sinemet Severe oropharyngeal dysphagia continue G-tube feeding Diabetes mellitus type 2 follow blood sugars , insulin sliding scale since blood sugars low decompensated Cirrhosis lactulose for 2-4 bm/day History of schizophrenia Code status full code as per molst form DVT prophylaxis SCDs reason for continued hospitalization:severe hypoxia Quality Stroke Does the patient have a stroke diagnosis?: No VTE Prior VTE?: No VTE Risk Level:: Medical - moderate - high VTE Device Contraindication: Treatment Not Indicated VTE Drug Contraindication: N/A - Med Ordered
--- NOTE | 2022-07-05 12:27 | HO.RADPN ---
RADIOLOGY Narrative Narrative: RLQ paracentesis . L clear nany colored fluid. Specimen sent for gram stain and culture. IV albumin given by anesthesia. Renal biopsy cancelled due to change in patient's clinical condition. 10L
--- NOTE | 2022-07-05 13:30 | MHC.SLORD ---
Speech Language Pathology Order Status: Attempted to see patient in a.m., Pt NPO for procedures, and declining medical status, not appropriate for treatment. Pt transferred to ICU. Will continue to monitor status.
[2022-07-05 13:39] LABS: Glucose, Whole Blood 158 mg/dL (60-115)
[2022-07-05] MEDS: Lidocaine HCl 1 % MPF 5 ML VIAL SUBCUT (13:47)
--- NOTE | 2022-07-05 13:53 | PC.NURSE ---
Status Changed 0748 Pt was found this morning to be covered this morning in yellow emesis, disoriented to his name and pain scale. Concerned for aspiration, MD was called to look and assess patient. RN took patient for stat CT of Head and Abdomen, being monitored on the Zoll and suction at bedside. Per MD pt will be going for paracentesis and liver biopsy..
--- NOTE | 2022-07-05 14:31 | PM.PNNEP ---
Subjective Subjective Date of Service: 07/05/22 Interval history: Seen and examined, events noted Physical Exam Vital Signs: Vital Signs: Last Vital Signs Temp 99.2 F 07/05/22 13:24 Pulse 81 07/05/22 14:00 Resp 29 H 07/05/22 14:00 BP 147/48 H 07/05/22 14:00 Pulse Ox 94 07/05/22 14:00 O2 Del Method 07/05/22 14:00 O2 Flow Rate 10 07/05/22 14:00 Oxygen Flow Rate 6 06/20/22 11:59 BMI result Body Mass Index 29.1 Const: Other: Constitutional : Alert with stimulation, restless not in distress Neck : Normal inspection, Supple Cardiovascular : RRR, no JVP, no lower extremity edema Respiratory : fair bilateral air entry, no crackles, wheezes or rhonchi Gastrointestinal: soft, lax, Normal bowel sounds, Non tender Skin : Warm, Dry, ?stage II decubitus ulcer on coccyx, medial right buttock and left buttock Neurological : Alert with stimulation, disoriented, No focal deficit , altered mentation General: cooperative, healthy appearing, comfortable, no acute distress and patient obtunded Nutritional Appearance: overweight Orientation/consciousness: patient oriented x3 and patient obtunded Limitations: altered mental status HEENT: Face and sinus: Yes normal facial exam Mouth: moist mucous membranes Neck: Neck: Yes normal visual inspection, Yes full ROM and Yes trachea midline Chest: Chest palpation & inspection: normal inspection of the chest Resp: Effort & Inspection: normal respiratory effort, able to speak in complete sentences and no respiratory distress GI: Other: Obese abdomen. Peg tube in place with no surrounding erythema. Serous fluid noted on dressings and abdominal binder. Peg was adjusted and pulled up to approximate the mushroom tip to the abdominal wall. Patient tolerated this well. Tube was watched in the leakage was identified. Tube feeds are flowing easily. Inspection: Yes normal to inspection Back/Spine/Pelvis: Cervical Spine: normal cervical lordosis Thoracic/Lumbar Spine: thoracic and lumbar spine normal to inspection Skin: Other: No erythema surrounding the PEG tube. General skin exam: no rashes or lesions noted Neuro: General: patient oriented x3, tone normal, moves all extremities and patient obtunded Extrem: General: Yes normal to inspection and Yes capillary refill normal Objective Data Labs CBC & Chem 7: 07/05/22 05:27 07/05/22 05:27 Labs: Laboratory Results - last 24 hr 07/04/22 07/04/22 07/05/22 16:06 19:23 05:27 WBC 24.2 H RBC 3.07 L Hgb 9.7 L Hct 28.8 L MCV 93.8 MCH 31.6 MCHC 33.7 RDW 17.8 H Plt Count 157 L D MPV 10.6 Absolute Nucleated RBC 0.000 Nucleated RBC % (auto) 0.0 Sodium Potassium Chloride Carbon Dioxide Anion Gap BUN Creatinine Estim Creat Clear Calc Estimated GFR POC Glucose 164 H 159 H Fasting Glucose Calcium 07/05/22 07/05/22 07/05/22 05:27 07:53 13:35 WBC RBC Hgb Hct MCV MCH MCHC RDW Plt Count MPV Absolute Nucleated RBC Nucleated RBC % (auto) Sodium 133 L Potassium 4.2 Chloride 98 Carbon Dioxide 18 L Anion Gap 21 H BUN 78 H Creatinine 4.64 H* Estim Creat Clear Calc 19.7 Estimated GFR 13 POC Glucose 190 H 158 H Fasting Glucose 175 H Calcium 8.0 L Microbiology Microbiology Results: Microbiology 06/26/22 15:19 Blood - Venous Blood Culture - Final No growth after 5 days. 06/26/22 14:17 Blood - Venous Blood Culture - Final No growth after 5 days. 06/26/22 16:48 Urine clean catch - Clean Catch Midstream Urine Culture - Final 06/20/22 14:33 Blood - Venous Blood Culture - Final No growth after 5 days. 06/20/22 14:33 Blood - Venous Blood Culture - Final No growth after 5 days. Procedures Date of Service Date of Service: 07/05/22 Assessment & Plan Assessment and plan (1) Acute respiratory failure with hypoxia: Status: Acute Plan 1. ERNST: etiol remains unclear and prior sero w/u in 02/2022 during previous hosp with epsidoe of ERNST reveald low C3/C4 but other seor neg, now started on HD and scheduled for kdiney Bx Obs r/o by CT AGN and AIN both poss ATN:is often a dx of exclusion and kidney Bx will help r/o other causes and can show change c/w ATN if present Suspet ERNST d/t HRS 2. Cirrhosis 3.Resp failure: improved 4. Anemia:will eval for Fe/EPO REC: LgVP; could consider kidney Bx once more stable; cont HD support as needed and will eval if he needs longerterm HD support Givne his over all baseline fun =c appaers to be poor we need to consider focusing on optimizing comfort issues and not treating aggressively with HD and kdieny Bx. Today there is no indication for HD based on exam and labs--will reassess daily for ques need for additional HD and work with the team Time Spent With Patient Time: Total time spent is greater than 50% in coordination of care (as documented) at patient's floor/unit and/or counseling patient: Progress Note: Quality Stroke Does the patient have a stroke diagnosis?: No
[2022-07-05] MEDS: fentaNYL citrate/PF 100 MCG/2 ML VIAL 50 MCG IVPUSH (15:00)
--- NOTE | 2022-07-05 15:28 | PC.NURSE ---
ARRIVED FROM PACU AND WOUND NOTED TO COCCYX. PICTURES OBTAINED. APPLICATION SPECIALIST NOTIFIED. WOUND CONSULT ENTERED AND CALL PLACED. Mouth Party SYSTEM IN PLACE AND UTILIZED.
[2022-07-05] MEDS: fentaNYL citrate/NS 1,000 MCG/100 ML PLAST..BAG 5 MCG IVCONT (15:30)
[2022-07-05] MEDS: Gabapentin 300 MG CAPSULE G-TUBE (16:20)
[2022-07-05] MEDS: Sodium Bicarbonate 650 MG TABLET G-TUBE (16:21)
[2022-07-05] MEDS: Carbidopa/Levodopa 25/100 TABLET 1 TAB G-TUBE (16:22)
[2022-07-05 16:28] LABS: Glucose, Whole Blood 160 mg/dL (60-115)
[2022-07-05] MEDS: Insulin Lispro 100 UNIT/ML 3 ML VIAL SUBCUT (16:43)
[2022-07-05] MEDS: Albumin Human 25 % 100 ML 200 ML IV (17:30)
--- NOTE | 2022-07-05 18:08 | PC.NURSE ---
Patient received from OR s/p paracentesis and noted respiratory distress. Upon arrival patient is lethargic and responsive only to painful stimuli. He is non-verbal and does not follow commands. No sedation infusing. There is marked increased work of breathing with tachypnea and use of accessory muscles. O2 sats 84% on oxymask 6 l; placed on 100% NRB with sats increased to 90 to 93%. Coarse crackles and pleural rubs auscultated in both lung tejeda. Patient exhibits intermittent congested non-productive cough. Fent IV push given and then patient started on a continuous fent gtt to reduce his resp rate with some effect noted. He remains in sinus rhythm without ectopy. Hemodialysis was started and patient became briefly hypotensive. Albumin given by HD nurse. BP has improved and HD is ongoing at this time. Gross edema noted in LE's and generalized throughout. GT intact, no feeds at this time. Patient oliguric. there is breakdown noted in his coccyx region and wound consult has been ordered.
--- NOTE | 2022-07-05 19:14 | PC.NURSE ---
Hemodialysis complete. BP is improving. Patient continues to exhibit increased work of breathing and has audible gurgling with respirations. Nasopharyngeal suctioned for large amounts of yellow/granda secretions (bile or tf?) in return. No improvement in breath sounds or gurgling noted. Resp therapy is at bedside to place patient on high flow. Presently HR 92 sinus, BP 95/49 (64), RR 23 and O2 sats 93% on 100% NRB. Patient remains lethargic and minimally responsive.
--- NOTE | 2022-07-05 19:19 | PM.CCPN ---
Subjective Subjective Date of Service: 07/05/22 Interval History: Mr. Blackburn is transferred to the ICU this afternoon bec of respiratory distress with hypoxemia, likely secondary to aspiration. The patient is very well known to me.? SEE MY NOTE FROM MAY 28.? Briefly, the patient is a 61-year-old gentleman with underlying history of alcoholic cirrhosis, dementia, ataxia, Parkinson?s disease, schizophrenia, diastolic heart failure, and CKD.? He is a resident of [facility].? Up until February of this year, he was reasonably high functioning, talked to people, got around mostly in a wheelchair, but could walk to the bathroom himself, transfers chair to bed by himself. In February, he was hospitalized at [facility] [place] encephalopathy and ERNST.? He required a 10 day stay in the ICU for refractory encephalopathy, but improved enough without requiring intubation.? He was discharged on March 15 with a creat of 2.2 (baseline was normal prior to that hospitalization).? For undetermined reasons (mult head CTs and MRI unrevealing; EEG showed generalized slowing), his mental status never returned to baseline, even though his ammonia level normalized.? According to Dr. Moon (who knows him well), after he got back to [facility], his level of animation was about half of what it was previously, and he was not walking at all.? It had been my opinion at that February hospitalization that if he wound up intubated, he?d probably wind up with a tracheostomy and PEG. Mr. Blackburn was hospitalized again March 20- for worsened encephalopathy thought secondary to general deconditioning and advanced Parkinsonism, dementia, and schizophrenia.? Treated by decreasing the dose of gabapentin and holding loratadine and tramadol.? Required multiple doses of Haldol and Ativan to control his agitation.? Psychiatry recommended Seroquel and Ativan as needed.? His mental status improved back to what seemed to be his new baseline, alert and interactive but overall disoriented. The patient was hospitalized again on May 17 with CHF, leg edema, and weight gain.? He was diuresed.? During hospitalization, the patient became increasingly confused.? Geodon was restarted, with prn Seroquel and Ativan.? The patient subsequently had a PEA Code Blue, thought secondary to vomiting and aspiration, with a chunk of meat removed from the hypopharynx on intubation.? Had ROSC and was tx to ICU.? After a few days he woke up and was extubated without incident.? His best mental status prior to transfer out of ICU was arousal with moderate prompting, and when he was awake, he tracked readily, but it took very vigorous prompting to get him to be purposefully interactive (e.g. to nod his head in response to questions), and he would go back to sleep quickly.? He was not talking at all, not making any sounds.? He moved all 4 spontaneously.? On June 14, he underwent PEG under GETA without incident.? He was discharged on June 16 with creat stabilized in the 2.5 range. The patient was readmitted here on June 20 with SOB and hypoxemia, .? He had a low-grade temp. ?WBC was 5.7, BUN/creatinine were 53/1.7, BNP was 3997. ?Chest x-ray showed severe diffuse bilateral airspace disease, along with bilateral pleural effusions. ?Thought either recurrent aspiration pneumonia and/or diastolic heart failure. ?He was given broad-spectrum antibiotics and diuresis. ?The patient's renal indices lorelei as he was diuresed.? On 06/29, Dr. Lomax recommended dialysis.? A temporary dialysis catheter was placed on 06/29 and dialysis was initiated on 06/30.? On 07/01, Dr. Niño recommended a renal biopsy. Over the last few days, the patient seems to have developed tense ascites.? This morning, he was sent down to preop surgical holding area in preparation for ultrasound-guided paracentesis and a renal biopsy.? On arrival to the preop holding area, he was in resp distress, with tachypnea, wet sounding cough and breathing, and SpO2 88% on 4L NC.? I put a Yankaur sxn down his throat and suctioned out some yellow fluid.? He had almost no gag reflex.? Ie. it looked like he aspirated. He was taken into the OR and had a paracentesis of 8.8 L under monitored anesthesia care, with no sedation.? The patient tolerated the procedure well and was transferred to ICU post op.? I saw him on arrival.? Mental status was as usual for him.? Eyes closed, moaning.? I was unable to get him to respond to me, even w vigorous stimulation.? HR 81, BP 133/53, RR 24 on oxymask, Sat 91% on 10L, temp 99.2.? Tracheal sounds were dry and clear.? No JVD at 30?.? Breathing much easier than earlier in the preop holding area.? Chest has slight rhonchi.? He has 2-3+ anasarca. LABORATORY DATA:? Below.? Notably, WBC this morning was 24, hemoglobin was 9.7, platelet count [id number].? Sodium 133, BUN/creatinine 78/4.6, bicarb 18, potassium 4.2.? Last PT on 07/01 was 15.8/1.4.? Last LFTs on June 25 showed a total bili of 1.0, AST 21.? Last ammonia level on June 21 was 33. Chest x-ray after arrival to the PACU shows diffuse bilateral mostly interstitial infiltrates, looks like pulmonary edema.? Left pleural effusion.? No change from prior chest x-ray of June 26. IMPRESSION: 1. Acute respiratory distress with hypoxemia.? Undoubtedly secondary to aspiration.? He has markedly diminished mental status and no gag reflex.? Recurrent aspiration is expected.? At this time, he has no new infiltrate on CXR.? No abx for that are indicated.? I will dialyze him now to see if that makes his hypoxemia any better. 2. Underlying Parkinson?s dz, on Sinemet. 3. Underlying schizophrenia. 4. Underlying dementia. 5. Underlying alcoholic cirrhosis. 6. Underlying hepatic encephalopathy.? Currently only on lactulose. 7. AMS.? Severely deteriorated mental status.? Either his dementia and/or his Parkinson's and/or schizophrenia have progressed.? On top of that, he has been getting his Gabapentin in the hospital, despite his acute renal failure.? We?ve d/c?d that.? We need to continue is his Sinemet.? He is also on Prolixin and Cogentin. 8. Hypoxemic resp failure on original admission.? Given the severe infiltrates on CXR and only mild-moderate hypoxemia, was most likely CHF, altho as much as he probably aspirates frequently, the latter can?t be ruled out. 9. ERNST.? Progressive renal failure as he was diuresed.? Classic right heart failure/end stage cardiorenal syndrome.? I commented on that in my last note of . ?I?m shocked that he was started on dialysis in the first place. From a practical point of view, there is no indication for any renal biopsy here. 10. Diastolic heart failure and right heart failure. 11. Massive anasarca.? 2? above factors. 12. Metabolic acidosis. ?2? acute renal failure. 13.. DM.? On SS insulin. 14. Anemia -- acute on chronic. ?Undoubtedly has ACD. 15. Mild coagulopathy.? 2? liver disease.? Corrected after 50 mg Vit K. 16. Decubitus ulcers.? Usual care. 17. Nutrition.? Tube feeds. Code status.? Last time he was here, I discussed that with Dr. Moon at some length.? In our opinion, Adilson's quality of life is getting much worse.? If he gets intubated again, it?s going to result in a tracheostomy and PEG, and no quality of life.? Neither of us feel that that would be in his interest.? He should have DNR/DNI status, maybe even [employer] status.? I discussed that on May 26 with his guardian, Tanesha Pruitt ([phone]).? She agrees, but a court order would be needed to establish the DNR status.? She said that she has never done that before, and she does not think that the attorneys in her office have done it.? I discussed that with Mila Mulligan from Case Management, and asked her at that time to patino the process with ChazVan and Mrs. Pruitt so that we could get the DNR/DNI status done within the next few days, in case something happens.? In view of all the above, it seems nothing has been done on that front. Given the above, I will do everything possible to avoid tracheal intubation tonight and will speak with case management and Tanesha Pruitt tomorrow. Critical care time (including full chart review, hospital course summary, multiple visits to the bedside in preop holding, the operating room, and in the ICU, extensive multiple discussions with the anesthesia team, extensive discussion with Dr. Bertrand from renal, and extensive discussion with Dr. Lomax from renal):? 2:15+ hrs. Critical Care Time (minutes): 135 Physical Exam Vital Signs: Vital Signs: Last Vital Signs Temp 99.2 F 07/05/22 13:24 Pulse 90 07/05/22 18:05 Resp 19 07/05/22 18:05 BP 108/45 L 07/05/22 18:05 Pulse Ox 92 07/05/22 18:05 O2 Del Method 07/05/22 18:05 O2 Flow Rate 10 07/05/22 18:05 Oxygen Flow Rate 6 06/20/22 11:59 BMI result Body Mass Index 29.1 Objective Data Labs CBC & Chem 7: 07/05/22 05:27 07/05/22 05:27 Labs: Laboratory Results - last 24 hr 07/04/22 07/05/22 07/05/22 19:23 05:27 05:27 WBC 24.2 H RBC 3.07 L Hgb 9.7 L Hct 28.8 L MCV 93.8 MCH 31.6 MCHC 33.7 RDW 17.8 H Plt Count 157 L D MPV 10.6 Absolute Nucleated RBC 0.000 Nucleated RBC % (auto) 0.0 Sodium 133 L Potassium 4.2 Chloride 98 Carbon Dioxide 18 L Anion Gap 21 H BUN 78 H Creatinine 4.64 H* Estim Creat Clear Calc 19.7 Estimated GFR 13 POC Glucose 159 H Fasting Glucose 175 H Calcium 8.0 L 07/05/22 07/05/22 07/05/22 07:53 13:35 16:25 WBC RBC Hgb Hct MCV MCH MCHC RDW Plt Count MPV Absolute Nucleated RBC Nucleated RBC % (auto) Sodium Potassium Chloride Carbon Dioxide Anion Gap BUN Creatinine Estim Creat Clear Calc Estimated GFR POC Glucose 190 H 158 H 160 H Fasting Glucose Calcium Microbiology Microbiology Results: Microbiology 07/05/22 12:30 Ascites Fluid Gram Stain - Final 06/26/22 15:19 Blood - Venous Blood Culture - Final No growth after 5 days. 06/26/22 14:17 Blood - Venous Blood Culture - Final No growth after 5 days. 06/26/22 16:48 Urine clean catch - Clean Catch Midstream Urine Culture - Final 06/20/22 14:33 Blood - Venous Blood Culture - Final No growth after 5 days. 06/20/22 14:33 Blood - Venous Blood Culture - Final No growth after 5 days. Quality Stroke Does the patient have a stroke diagnosis?: No VTE Prior VTE?: No VTE Risk Level:: Medical - moderate - high VTE Device Contraindication: Treatment Not Indicated VTE Drug Contraindication: N/A - Med Ordered Critical Care Time Critical Care Time (minutes): 150
--- NOTE | 2022-07-05 19:59 | PC.NURSE ---
Periph IV infiltrated - #20 right wrist. IV fent turned off. Hill SANCHEZ aware - plan to change out dialysis cath with dialysis cath with pigtail. Patient lethargic. Sitter at bedside for safety at this time (patient had been pulling at tubes / lines). patient tolerating high flow - 60%, 55L. High fall risk precautions in place.
[2022-07-05 21:25] LABS: Glucose, Whole Blood 127 mg/dL (60-115)
--- NOTE | 2022-07-05 21:54 | P.PNCC_ITS ---
Subjective Subjective Date of Service: 07/05/22 Interval History: Subjective:? Today pt became intermittently hypotensive around 8 and 09:00 o'clock this evening with lows blood pressure of 86/34, patient appears to be moaning, fentanyl drip had been shot of by nursing personnel given the concern that this was driving the blood pressure low, however the patient appears to be breathing much heavier.? In addition nursing reports having difficulty flushing the G-tube and getting significantly the residuals over 200 cc with green colored fluid. ? Objective VS: ?120/42 however earlier the patient's lowest blood pressure was 86/34, heart rate 86, respirations 19, O2 sat 96% on high-flow with FiO2 of 60% General:? Alert unable to determine orientation, he is moaning.? Appears to be using accessory muscles HEENT:? Normocephalic, atraumatic, extraocular movements intact, neck is supple, no lymphadenopathy.? Buccal mucosa dry.? Throat midline. Cardiac:? Clear S1-S2, no murmurs rubs or gallops. Pulmonary:? Coarse lung sounds bilaterally particularly at the bases with fine crackles, wheezes.? Mild rhonchi noted on the right upper lobe. Abdomen:? Protuberant, positive bowel sounds in all 4 quadrants.? Soft, nontender, no rebound or guarding.? No CVA tenderness. Musculoskeletal:? Unable to move his stream it is upon request, passive flexion extension of the major joints of the upper lower extremities reveals no cogwheeling, there is 2+ pitting edema of bilateral lower extremities, no asymmetry. Vascular:? 2+ pulses upper and lower extremities distally.? Less than 2nd capillary refill bilaterally of the finger and toes ? SIGNIFICANT LABORATORY DATA:? Reviewed from this morning, a new labs showed worsen white count greater than 26 with bandemia, toxic granulocytes. There is no electrolyte abnormalities, chronic elevated creatinine greater than 5, potassium is normal. Venous gas shows metabolic acidosis with low pH and low bicarb levels. ? REVIEW OF IMAGES: Chest x-ray IMPRESSION: ? 1. Unexpected finding: Lucency beneath the right hemidiaphragm suspicious for intra-abdominal free air. Correlate clinically with any evidence of dislodgment of the percutaneous gastrostomy tube or suspicion for hollow viscus perforation. This critical result was discussed with Dr. Hill Stahl at 10:41 PM on 07/05/2022 and it was ascertained that the content and urgency of the report was understood at the time of direct communication. 2. Right IJ dual-lumen catheter tip terminates in the proximal SVC. 3. No pneumothorax. 4. Small bilateral pleural effusions and patchy bibasilar airspace opacities. 5. Possible mild pulmonary vascular congestion/edema. ? Abdominal x-ray IMPRESSION: 1.? Percutaneous gastrostomy tube projects in the left upper quadrant. 2.? Lucency beneath the right hemidiaphragm equivocal for intra-abdominal free air versus artifact. ? ASSESSMENT : 1. Worsening hypoxic respiratory failure with suspected aspiration pneumonitis 2. Metabolic/lactic acidosis rule out sepsis 3. End-stage renal disease on hemodialysis with concern of pulmonary congestion 4. Hypoalbuminemia 5. Hypotension likely due to low oncotic pressure post paracentesis 6. Worsened leukocytosis with a left shift likely bacteremic ? PLAN OF CARE : Patient has become intermittently hypotensive likely due to poor oncotic pressure as the patient had approximately a L of ascites fluid removed.? Albumin was ordered. I Am concerned that the patient is aspirating his GI contents given that nursing reported high residuals as well as possible Ms. Placement of the G-tube, residual contents appear green in color, given his desaturation and all the above, I will get a full set of labs including lactic acid, blood gas, blood cultures and urinalysis; and start Unasyn empirically given my suspicion of aspiration pneumonitis.? If it is to be continued, it can be given after hemodialysis at normal dose every 12-24 hours on dialysis days. I cannot give him IV fluids were on concerned this will further push him into CHF.? Patient looks uncomfortable, will continue with fentanyl, if his blood pressure does not improve with albumin, will start him on Levophed.0200 His overall bicarb deficit is over 300 mEq; will give 3 amps of bicarb (150 mEq) IV push every 4 hours x2 The results of abdominal x-ray were discussed with Dr. Mulligan, CT of the abdomen pelvis ordered for further evaluation of possible free air in the light of displacement of the G-tube versus new perforation. FOR NOW WILL DISCONTINUE THE USE OF THE G-TUBE. ? GI PROPHYLAXIS:? WILL CHANGE FROM G-TUBE TO IV PPI DVT PROPHYLAXIS: ?Pneumatic stocks ? Critical care time used for critical evaluation of this patient, diagnosis, treatment and coordination of care, review her records and documentation TOTAL CRITICAL CARE TIME 90 MIN Patient's care was discussed in detail with Dr. Myers.? He is aware of all the above as well as the plan of care for this patient.? Critical Care Time (minutes): 90 Physical Exam Vital Signs: Vital Signs: Last Vital Signs Temp 98.2 F 07/05/22 22:00 Pulse 82 07/06/22 00:00 Resp 19 07/06/22 00:00 BP 96/41 L 07/06/22 00:00 Pulse Ox 94 07/06/22 00:00 O2 Del Method 07/06/22 00:00 O2 Flow Rate 60 07/06/22 00:00 FiO2 60 07/06/22 00:00 Oxygen Flow Rate 6 06/20/22 11:59 BMI result Body Mass Index 29.1 Objective Data Labs CBC & Chem 7: 07/05/22 22:17 07/05/22 22:17 Labs: Laboratory Results - last 24 hr 07/05/22 07/05/22 07/05/22 05:27 05:27 07:53 WBC 24.2 H RBC 3.07 L Hgb 9.7 L Hct 28.8 L MCV 93.8 MCH 31.6 MCHC 33.7 RDW 17.8 H Plt Count 157 L D MPV 10.6 Immature Gran % (Auto) Neut % (Auto) Lymph % (Auto) Wright % (Auto) Eos % (Auto) Baso % (Auto) Lymph # (Auto) Wright # (Auto) Eos # (Auto) Baso # (Auto) Abs Immat Gran (auto) Absolute Neuts (auto) Absolute Nucleated RBC 0.000 Nucleated RBC % (auto) 0.0 Neutrophils % (Manual) Band Neutrophils % Monocytes % (Manual) Abs Neuts (Manual) Monocytes # (Manual) Toxic Granulation Toxic Vacuolation Dohle Bodies Platelet Estimate Plt Morphology Comment RBC Morphology Polychromasia Hypochromasia Microcytosis Macrocytosis Tear Drop Cells Ovalocytes [employer] Cells Acanthocytes (Spur) VBG pH VBG pCO2 VBG pO2 VBG HCO3 VBG O2 Saturation VBG Base Excess Sodium 133 L Potassium 4.2 Chloride 98 Carbon Dioxide 18 L Anion Gap 21 H BUN 78 H Creatinine 4.64 H* Estim Creat Clear Calc 19.7 Estimated GFR 13 POC Glucose 190 H Random Glucose Fasting Glucose 175 H Lactic Acid Calcium 8.0 L Total Bilirubin AST ALT Alkaline Phosphatase Total Protein Albumin 07/05/22 07/05/22 07/05/22 13:35 16:25 21:20 WBC RBC Hgb Hct MCV MCH MCHC RDW Plt Count MPV Immature Gran % (Auto) Neut % (Auto) Lymph % (Auto) Wright % (Auto) Eos % (Auto) Baso % (Auto) Lymph # (Auto) Wright # (Auto) Eos # (Auto) Baso # (Auto) Abs Immat Gran (auto) Absolute Neuts (auto) Absolute Nucleated RBC Nucleated RBC % (auto) Neutrophils % (Manual) Band Neutrophils % Monocytes % (Manual) Abs Neuts (Manual) Monocytes # (Manual) Toxic Granulation Toxic Vacuolation Dohle Bodies Platelet Estimate Plt Morphology Comment RBC Morphology Polychromasia Hypochromasia Microcytosis Macrocytosis Tear Drop Cells Ovalocytes Fany Cells Acanthocytes (Spur) VBG pH VBG pCO2 VBG pO2 VBG HCO3 VBG O2 Saturation VBG Base Excess Sodium Potassium Chloride Carbon Dioxide Anion Gap BUN Creatinine Estim Creat Clear Calc Estimated GFR POC Glucose 158 H 160 H 127 H Random Glucose Fasting Glucose Lactic Acid Calcium Total Bilirubin AST ALT Alkaline Phosphatase Total Protein Albumin 07/05/22 07/05/22 07/05/22 22:16 22:17 22:17 WBC 26.4 H RBC 2.69 L Hgb 8.6 L Hct 25.9 L MCV 96.3 MCH 32.0 MCHC 33.2 RDW 18.4 H Plt Count 104 L D MPV 11.2 Immature Gran % (Auto) Cancelled Neut % (Auto) Cancelled Lymph % (Auto) Cancelled Wright % (Auto) Cancelled Eos % (Auto) Cancelled Baso % (Auto) Cancelled Lymph # (Auto) Cancelled Wright # (Auto) Cancelled Eos # (Auto) Cancelled Baso # (Auto) Cancelled Abs Immat Gran (auto) Cancelled Absolute Neuts (auto) Cancelled Absolute Nucleated RBC 0.000 Nucleated RBC % (auto) 0.0 Neutrophils % (Manual) 86 H Band Neutrophils % 13 H Monocytes % (Manual) 1 L Abs Neuts (Manual) 26.1 H Monocytes # (Manual) 0.3 Toxic Granulation PRESENT Toxic Vacuolation PRESENT Dohle Bodies PRESENT Platelet Estimate DECREASED Plt Morphology Comment NORMAL RBC Morphology NOTED Polychromasia 2+ (3-5) Hypochromasia 1+ (5-14) Microcytosis 1+ (5-14) Macrocytosis 1+ (5-14) Tear Drop Cells 2+ (3-5) Ovalocytes 2+ (15-30) Fany Cells 3+ (>5) Acanthocytes (Spur) 3+ (>5) VBG pH 7.27 L VBG pCO2 31 VBG pO2 56 VBG HCO3 14 L VBG O2 Saturation 79.0 VBG Base Excess -10.7 Sodium 136 Potassium 4.2 Chloride 100 Carbon Dioxide 15 L Anion Gap 25 H BUN 83 H Creatinine 5.07 H* Estim Creat Clear Calc 18.0 Estimated GFR 12 POC Glucose Random Glucose 138 H Fasting Glucose Lactic Acid Calcium 7.7 L Total Bilirubin 2.4 H AST 20 ALT < 6 Alkaline Phosphatase 62 D Total Protein 4.5 L D Albumin 2.7 L 07/05/22 22:17 WBC RBC Hgb Hct MCV MCH MCHC RDW Plt Count MPV Immature Gran % (Auto) Neut % (Auto) Lymph % (Auto) Wright % (Auto) Eos % (Auto) Baso % (Auto) Lymph # (Auto) Wright # (Auto) Eos # (Auto) Baso # (Auto) Abs Immat Gran (auto) Absolute Neuts (auto) Absolute Nucleated RBC Nucleated RBC % (auto) Neutrophils % (Manual) Band Neutrophils % Monocytes % (Manual) Abs Neuts (Manual) Monocytes # (Manual) Toxic Granulation Toxic Vacuolation Dohle Bodies Platelet Estimate Plt Morphology Comment RBC Morphology Polychromasia Hypochromasia Microcytosis Macrocytosis Tear Drop Cells Ovalocytes Fany Cells Acanthocytes (Spur) VBG pH VBG pCO2 VBG pO2 VBG HCO3 VBG O2 Saturation VBG Base Excess Sodium Potassium Chloride Carbon Dioxide Anion Gap BUN Creatinine Estim Creat Clear Calc Estimated GFR POC Glucose Random Glucose Fasting Glucose Lactic Acid 6.7 H* Calcium Total Bilirubin AST ALT Alkaline Phosphatase Total Protein Albumin Microbiology Microbiology Results: Microbiology 07/05/22 12:30 Ascites Fluid Gram Stain - Final 06/26/22 15:19 Blood - Venous Blood Culture - Final No growth after 5 days. 06/26/22 14:17 Blood - Venous Blood Culture - Final No growth after 5 days. 06/26/22 16:48 Urine clean catch - Clean Catch Midstream Urine Culture - Fin al 06/20/22 14:33 Blood - Venous Blood Culture - Final No growth after 5 days. 06/20/22 14:33 Blood - Venous Blood Culture - Final No growth after 5 days. Quality Stroke Does the patient have a stroke diagnosis?: No VTE Prior VTE?: No VTE Risk Level:: Medical - moderate - high VTE Device Contraindication: Treatment Not Indicated VTE Drug Contraindication: N/A - Med Ordered
--- NOTE | 2022-07-05 22:01 | W.PM.CCHP ---
Procedures Date of Service Date of Service: 07/05/22 Abscess I/D Consent for Procedure: Elective - informed consent obtained Central Line Placement Right IJ: Central Line Comments: After taking a time-out, the current dual lumen hemodialysis catheter that had been previously placed will be replaced with a triple-lumen hemodialysis catheter. Initially durty prep was done, the dressing was removed, the remainder of the catheter including the hives and ports were cleaned all the way to the base of the catheter with chlorhexidine. The area and my self, prepped in a sterile fashion. I then proceeded to clean the area once again with chlorhexidine in a sterile manner from the center out. With the help of his nurse Kuldeep, the ports of the catheter were held up words, identified the blue hob as the one to use for the guidewire. The remainder of the external catheter was cleaned with chlorhexidine, then cut with scissors, the guidewire was threaded through it, some PVCs were noted on the monitor. The catheter was then removed, pressure was held around the incision site, then a new hemodialysis triple-lumen catheter was inserted over the guidewire, secured in place with 3 sutures, aspirated dark nonpulsatile blood, flushed well from all 3 ports. A Biopatch was applied and a central line dressing right over. Postprocedural chest x-ray shows the line to be in good position, there is no pneumothorax. And there was no other complication during the procedure including no bleeding. Consent for Procedure: Emergent-no informed consent obtained
[2022-07-05 22:21] LABS: VBG Base Excess -10.7 mmol/L; VBG HCO3 14 mmol/L (22-26); VBG pCO2 31 mmHg; VBG pH 7.27 (7.32-7.43); VBG pO2 56 mmHg
[2022-07-05 22:32] LABS: Hematocrit 25.9 % (42.0-52.0); Hemoglobin 8.6 g/dl (14.0-18.0); Mean Corpuscular HGB Conc 33.2 g/dl (31.0-36.0); Mean Corpuscular Volume 96.3 fL (80.0-98.0); Mean Platelet Volume 11.2 fL (9.4-12.4); Platelet Count 104 X10*3/uL (160-400); Red Blood Count 2.69 X10*6/uL (4.60-5.80); Red Cell Distribution Width 18.4 % (11.0-16.0); White Blood Count 26.4 X10*3/uL (4.8-10.8)
[2022-07-05 22:43] LABS: Lactic Acid 6.7 mmol/L (0.5-2.0)
[2022-07-05 22:47] LABS: Alanine Aminotransferase < 6 U/L (0-40); Albumin Level 2.7 g/dL (3.5-5.0); Alkaline Phosphatase 62 U/L (39-117); Anion Gap 25 (12-20); Aspartate Amino Transferase 20 U/L (5-37); Bilirubin Total 2.4 mg/dL (0.0-1.0); Blood Urea Nitrogen 83 mg/dL (9-16); Calcium 7.7 mg/dL (8.4-10.2); Carbon Dioxide 15 mmol/L (22-29); Chloride 100 mmol/L (96-108); Estimated Glomerular Filt Rate 12; Glucose Random 138 mg/dL (60-115); Potassium 4.2 mmol/L (3.3-5.1); Sodium 136 mmol/L (135-145); Total Protein 4.5 g/dL (6.5-8.0)
[2022-07-05] MEDS: Sodium Bicarbonate 8.4% 50 MEQ/50 ML SYRINGE 150 MEQ IVPUSH (22:50)
[2022-07-05] MEDS: Albumin Human 25 % 100 ML IV (22:51)
[2022-07-05 23:01] LABS: Band Neutrophils Percent 13 % (3-5); Macrocytosis 1+ (5-14) /OIF; Microcytosis 1+ (5-14) /OIF; Monocytes Absolute Manual 0.3 X10*3/uL (0.1-1.2); Monocytes Percent Manual 1 % (2-11); Neutrophils Absolute Manual 26.1 X10*3/uL (2.0-8.3); Neutrophils Percent Manual 86 % (45-73); Platelet Estimate DECREASED (NORMAL); RBC Morphology NOTED
[2022-07-05 23:04] LABS: Acanthocytes 3+ (>5) /OIF; Burr Cells 3+ (>5) /OIF; Ovalocytes 2+ (15-30) /OIF; Platelet Morphology Comment NORMAL; Tear Drop Cells 2+ (3-5) /OIF
[2022-07-05 23:05] LABS: Dohle Bodies PRESENT; Hypochromasia 1+ (5-14) /OIF; Polychromasia 2+ (3-5) /OIF; Toxic Granulation PRESENT; Toxic Vacuolation PRESENT
[2022-07-06] VITALS (37 sets, daily range): BP systolic 82–119; BP diastolic 29–49; PULSE 82–135; RESP 10–19; TEMP 36.4–37.1; O2SAT 93–98
[2022-07-06 00:22] LABS: Reflex Lactate? Lactic Acid Added
[2022-07-06 00:32] LABS: Venous Blood Gas Refer to POC result
--- NOTE | 2022-07-06 00:41 | MHC.PIE ---
Shift eval 7p-11p: Patient lethargic, BP 86 systolic, Abnormal respirations, shallow respirations, Patient pale. At approx 2000, while receiving fentanyl through periph IV on right wrist, site noted to be infiltrated and red. Drip stopped. Hill SANCHZE with this RN assist, changed over right IJ dialysis cath to a new dialysis cath with a pigtail that can be used for infusions. By the end of the bedside procedure, the patient's O2sat went down to the 70's - continued labored breathing. Respiratory called, increased high flow O2 to max temporarily. O2sat improved back up to mid 90's. BP improved after procedure. Hill SANCHEZ ordered XRAY to confirm placement of line & ordered albumin, bicarb, and labs to be ordered post procedure. While assessing the patient post procedure, patient's PEG tube was noted to be outside the stomach, the balloon appliance seemed to be connected to abd, but still flush to skin. Copious amt of yellow fluid (gastric contents?) were emptying from PEG insertion site. Drainage bag (urostomy bag) already placed around PEG insertion site to catch liquid, was noted to 350 ml yellow fluids from abd insertion site. Hill SANCHEZ shown PEG tube and ordered to not use. KUB and chest XRay ordered. Central line placement verified and ok to use per Hill SANCHEZ. Other orders initiated. Critical lactic acid received and reported to Hill SANCHEZ. Hill also received a radiology report about the KUB - new order for abd CT scan to be done - order to give medications first.
[2022-07-06] MEDS: Albumin Human 25 % 100 ML IV (00:42)
[2022-07-06] MEDS: Ampicillin Sodium/Sulbactam Na 1.5 GM in 0.9 % Sodium Chloride 100 ML IV (01:16)
[2022-07-06 01:22] LABS: ~Lactic Acid-LAB USE ONLY 6.8 mmol/L (0.5-2.0)
[2022-07-06 01:52] LABS: Magnesium 2.4 mg/dL (1.6-2.6); Phosphorus 8.6 mg/dL (2.7-4.5)
[2022-07-06 01:55] LABS: Cancel Lactic Acid Canceled
[2022-07-06 02:19] LABS: B Type Natriuretic Peptide 732 pg/mL (<100)
[2022-07-06] MEDS: Sodium Bicarbonate 8.4% 50 MEQ/50 ML SYRINGE 150 MEQ IVPUSH (02:34)
--- NOTE | 2022-07-06 03:25 | PM.EVENT ---
Event Note Date of Service: 07/07/22 Event Note: called by Hill about CT finding of foci of free air anteriorly on CT done tonight I have reviewed older images from CT scan done 06/28, and 07/05 (yesterday morning) similar foci of free air under anterior abdominal wall seen on these previous CT scans air likely from PEG tube site - anterior stomach wall not in apposition with abdominal wall air may be introduced as well by paracentesis I have called and discussed above with Dr Myers - he is in agreement, and he was aware of previous CT findings of foci of air on older CT scans
[2022-07-06] MEDS: metroNIDAZOLE/NS 500 MG/100 ML PIGGYBACK 100 MG IV (04:40)
[2022-07-06] MEDS: Albuterol/Iprat 2.5/0.5MG 3 ML AMPUL.NEB INHALE (05:20)
[2022-07-06 05:55] LABS: VBG HCO3 19 mmol/L (22-26); VBG pCO2 35 mmHg; VBG pH 7.33 (7.32-7.43); VBG pO2 56 mmHg
[2022-07-06 06:21] LABS: Lactic Acid 6.7 mmol/L (0.5-2.0)
[2022-07-06 06:28] LABS: Venous Blood Gas Refer to POC result
[2022-07-06 06:30] LABS: Alanine Aminotransferase < 6 U/L (0-40); Albumin Level 2.6 g/dL (3.5-5.0); Alkaline Phosphatase 53 U/L (39-117); Anion Gap 25 (12-20); Aspartate Amino Transferase 41 U/L (5-37); Bilirubin Total 2.1 mg/dL (0.0-1.0); Blood Urea Nitrogen 83 mg/dL (9-16); Calcium 7.7 mg/dL (8.4-10.2); Carbon Dioxide 22 mmol/L (22-29); Chloride 98 mmol/L (96-108); Creatinine Clr Calc Pharmacy 17.5; Estimated Glomerular Filt Rate 11; Glucose Random 128 mg/dL (60-115); Magnesium 2.4 mg/dL (1.6-2.6); Phosphorus 8.9 mg/dL (2.7-4.5); Potassium 4.1 mmol/L (3.3-5.1); Sodium 141 mmol/L (135-145); Total Protein 4.3 g/dL (6.5-8.0)
[2022-07-06 06:32] LABS: B Type Natriuretic Peptide 1245 pg/mL (<100)
[2022-07-06 06:45] LABS: Procalcitonin 14.69 ng/mL
[2022-07-06] MEDS: Pantoprazole Sodium 40 MG/10 ML VIAL IVPUSH (06:52)
[2022-07-06] MEDS: 0.9 % Sodium Chloride Flush 3 ML SYRINGE IVFLUSH ×2 (06:54→17:58)
[2022-07-06 06:59] LABS: Hematocrit 26.5 % (42.0-52.0); Hemoglobin 8.8 g/dl (14.0-18.0); Mean Corpuscular HGB Conc 33.2 g/dl (31.0-36.0); Mean Corpuscular Hemoglobin 31.7 pg (27.0-33.0); Mean Corpuscular Volume 95.3 fL (80.0-98.0); Mean Platelet Volume 12.1 fL (9.4-12.4); Platelet Count 106 X10*3/uL (160-400); Red Blood Count 2.78 X10*6/uL (4.60-5.80); Red Cell Distribution Width 18.2 % (11.0-16.0); WBC ABN SCTR FOR CBC 1
[2022-07-06 07:01] LABS: White Blood Count 31.1 X10*3/uL (4.8-10.8)
--- NOTE | 2022-07-06 07:15 | PM.SEPSIS ---
Sepsis Event Note Evaluation Sepsis screening result: No Definite Risk Current stage of sepsis: severe sepsis Reason for ruling out sepsis: pt become hypotensive, new labs show Left shift there is evidence of new lung infiltrates, I am concern for aspiration PNA. Lactic Acid > 6 x 2 This patient has Anasarca and likely Cardio renal syndrome, there fore I am not able to give him IVF 30ml /kg due to very high likelyhood that he will go into CHF. Initial hypotension due to sepsis/infection: SBP < 90 mmHg Possible source: pulmonary Focused Exam Vital signs: Vital Signs Temp Pulse Resp BP Pulse Ox O2 Del Method O2 Flow Rate 07/06/22 05:14 85 18 07/06/22 05:14 18 07/06/22 04:37 101/39 L 07/06/22 04:35 84 12 101/39 L 98 High Flow Nasal Cannula 50 07/06/22 03:30 98.3 F 87 14 112/42 L 95 High Flow Nasal Cannula 50 07/06/22 01:14 90/34 L 07/06/22 01:10 83/40 L 07/06/22 07:00 97.5 F 87 11 L 99/41 L 98 High Flow Nasal Cannula 50 07/06/22 06:00 87 12 106/39 L 97 High Flow Nasal Cannula 50 07/06/22 05:00 85 11 L 108/42 L 95 High Flow Nasal Cannula 50 07/06/22 03:00 83 15 108/48 L 94 50 07/06/22 02:00 84 16 113/41 L 96 High Flow Nasal Cannula 50 07/06/22 01:00 85 19 83/49 L 95 High Flow Nasal Cannula 60 07/06/22 00:00 82 19 96/41 L 94 High Flow Nasal Cannula 60 07/05/22 23:00 86 17 103/45 L 93 High Flow Nasal Cannula 60 07/05/22 22:51 17 07/05/22 20:00 90 18 99/34 L 91 L High Flow Nasal Cannula 60 07/05/22 20:08 20 07/05/22 22:00 98.2 F 94 19 120/42 L 96 High Flow Nasal Cannula 60 07/05/22 21:00 86 18 86/34 L 91 L High Flow Nasal Cannula 60 FiO2 07/06/22 05:14 07/06/22 05:14 07/06/22 04:37 07/06/22 04:35 50 07/06/22 03:30 50 07/06/22 01:14 07/06/22 01:10 07/06/22 07:00 50 07/06/22 06:00 50 07/06/22 05:00 50 07/06/22 03:00 50 07/06/22 02:00 50 07/06/22 01:00 60 07/06/22 00:00 60 07/05/22 23:00 60 07/05/22 22:51 07/05/22 20:00 60 07/05/22 20:08 07/05/22 22:00 60 07/05/22 21:00 60 Date exam was performed: 07/06/22 Time exam was performed: 07:15 Problem List (1) Acute respiratory failure with hypoxia: Status: Acute
--- NOTE | 2022-07-06 07:19 | PM.SEPBOLA3 ---
Sepsis Bolus Exclusion Sepsis Bolus Exclusion Date of Occurrence: 07/05/22 This patient met severe sepsis criteria due to the following condition(s):: Hypotension and Lactate>=4mmol/L In my clinical judgement the administration of 30 ml/kg of crystalloid would be detrimental to this patient due to the patient's following conditions:: NYHA class III or IV Heart Failure(symptoms with low exertion or rest), Stage III or IV Chronic Kidney Disease (GFR<30), Concern for fluid overload and Other (Unable to give IVF as pt has Anasarca, just had HD and is at high risk of going into CHF ) Other (must be specific):: pt become hypotensive, new labs show Left shift, new lung infiltrates Replace the 30 mls/kg with (*zero amount not acceptable): *Note: One of the tejeda must be documented
[2022-07-06] MEDS: fentaNYL citrate/NS 1,000 MCG/100 ML PLAST..BAG 7.5 MCG IVCONT (07:24)
[2022-07-06 07:52] LABS: Glucose, Whole Blood 116 mg/dL (60-115)
[2022-07-06 07:56] LABS: Reflex Lactate? Lactic Acid Added
--- NOTE | 2022-07-06 08:00 | P.PNGS_ITS ---
Subjective Subjective Date of Service: 07/07/22 Interval history: Had hypotension yesterday I had been called early this morning because of foci of air in the peritoneum anteriorly Physical Exam Vital Signs: Vital Signs: Last Vital Signs Temp 97.5 F 07/06/22 07:00 Pulse 87 07/06/22 07:00 Resp 11 L 07/06/22 07:00 BP 106/34 L 07/06/22 07:46 Pulse Ox 98 07/06/22 07:00 O2 Del Method 07/06/22 07:00 O2 Flow Rate 50 07/06/22 07:00 FiO2 50 07/06/22 07:00 Oxygen Flow Rate 6 06/20/22 11:59 BMI result Body Mass Index 29.1 Const: Other: Intubated, on the ventilator, Resp: Other: On ventilator Cardio: Rate: regular rate GI: Other: With ascites but abdomen soft, no obvious guarding or rebound, peg tube in place but external bolster loose Objective Data Active Medications Acetaminophen (Acetaminophen 325 Mg Tablet) 650 mg PO Q4H PRN PRN Reason: Fever Last Admin: 07/04/22 02:09 Dose: 650 mg Documented By: MARTINA Amlodipine Besylate (Amlodipine Besylate 10 Mg Tablet) 10 mg G-TUBE DAILY ANDREY; Protocol Last Admin: 07/05/22 11:50 Dose: Not Given Documented By: NERI Non-Admin Reason: Off Unit: Surgery Benztropine Mesylate (Benztropine Mesylate 1 Mg Tablet) 1 mg G-TUBE BID [facility] Last Admin: 07/05/22 22:24 Dose: Not Given Documented By: ALTAGRACIA Non-Admin Reason: not using PEG Bisacodyl (Bisacodyl 10 Mg Supp.Rect) 10 mg CO DAILY PRN PRN Reason: Constipation Carbidopa/Levodopa (Carbidopa/Levodopa 25/100 Tablet) 1 tab G-TUBE QID ANDREY Last Admin: 07/05/22 22:24 Dose: Not Given Documented By: ALTAGRACIA Non-Admin Reason: NOT USING PEG Dextrose (Dextrose 50 % 25 Gm/50 Ml Syringe) 25 gm IVPUSH Q15M PRN; Protocol PRN Reason: per Hypoglycemia Standing Ord. Docusate Sodium (Docusate Sodium 100 Mg/10 Ml Liquid) 100 mg G-TUBE BEDTIME ANDREY Last Admin: 07/05/22 22:25 Dose: Not Given Documented By: ALTAGRACIA Non-Admin Reason: NOT USING PEG Fluphenazine Decanoate (Fluphenazine Decanoate 25 Mg/Ml 5 Ml Vial) 50 mg IM Q14D [facility] Last Admin: 07/01/22 11:55 Dose: 50 mg Documented By: LUIS Glucose (Glucose Gel 15 Gm Gel..Gram.) 15 gm PO Q15M PRN; Protocol PRN Reason: per Hypoglycemia Standing Ord. Guaifenesin (Guaifenesin 100 Mg/5 Ml Liquid) 10 ml G-TUBE Q4H PRN PRN Reason: Cough Fentanyl (Sublimaze/Ns) 1,000 mcg in 100 mls @ 0 mls/hr IVCONT .Q0M [facility]; Protocol Last Admin: 07/06/22 07:24 Dose: 75 mcg/hr, 7.5 mls/hr Documented By: BERT Norepinephrine Bitartrate (Levophed) 8 mg in 250 mls @ 0 mls/hr IVCONT .Q0M [facility]; Protocol Last Titration: 07/06/22 07:46 Dose: 0.15 mcg/kg/min, 27.39 mls/hr Documented By: BERT Insulin Human Lispro (Insulin Lispro 100 Unit/Ml 3 Ml Vial) 0 unit SUBCUT QIDACHS [facility]; Protocol Last Admin: 07/06/22 07:50 Dose: Not Given Documented By: BERT Non-Admin Reason: No Insulin Coverage Lactulose (Lactulose 20 Gm/30 Ml Solution) 20 gm G-TUBE DAILY [facility] Last Admin: 07/05/22 11:51 Dose: Not Given Documented By: NERI Non-Admin Reason: Off Unit: Surgery Levothyroxine Sodium (Levothyroxine Sodium 25 Mcg Tablet) 25 mcg G-TUBE DAILY @0600 [facility] Last Admin: 07/06/22 06:49 Dose: Not Given Documented By: BERT Non-Admin Reason: NPO Metoprolol Tartrate (Metoprolol Tartrate 25 Mg Tablet) 25 mg G-TUBE BID [facility]; Protocol Last Admin: 07/05/22 22:25 Dose: Not Given Documented By: ALTAGRACIA Non-Admin Reason: NOT USING PEG Nystatin (Nystatin Powder 15 Gm Bottle) 1 appl TOPICAL BID [facility]; Protocol Last Admin: 07/05/22 22:52 Dose: Not Given Documented By: ALTAGRACIA Non-Admin Reason: not available in unit right now Olanzapine (Olanzapine 10 Mg Vial) 5 mg IM DAILY PRN PRN Reason: agitation Last Admin: 07/03/22 02:23 Dose: 5 mg Documented By: THANH Pantoprazole Sodium (Pantoprazole Sodium 40 Mg/10 Ml Vial) 40 mg IVPUSH DAILY@0630 [facility] Last Admin: 07/06/22 06:52 Dose: 40 mg Documented By: BERT Quetiapine Fumarate (Quetiapine Fumarate 25 Mg Tablet) 25 mg PO BID PRN PRN Reason: anxiety/restlessness Last Admin: 07/04/22 02:09 Dose: 25 mg Documented By: MARTINA Senna (Sennosides 8.6 Mg Tablet) 8.6 mg G-TUBE DAILY PRN PRN Reason: Constipation Sodium Bicarbonate (Sodium Bicarbonate 650 Mg Tablet) 650 mg G-TUBE TID [facility] Last Admin: 07/05/22 22:52 Dose: Not Given Documented By: ALTAGRACIA Non-Admin Reason: NOT USING PEG Sodium Chloride (0.9 % Sodium Chloride Flush 3 Ml Syringe) 3 ml IVFLUSH QSHIFT [facility] Last Admin: 07/06/22 06:54 Dose: 3 ml Documented By: BERT Labs CBC & Chem 7: 07/06/22 05:50 07/06/22 05:50 Labs: Laboratory Results - last 24 hr 07/05/22 07/05/22 07/05/22 07:53 13:35 16:25 MCV MCH MCHC RDW Plt Count MPV Immature Gran % (Auto) Neut % (Auto) Lymph % (Auto) Bay % (Auto) Eos % (Auto) Baso % (Auto) Lymph # (Auto) Bay # (Auto) Eos # (Auto) Baso # (Auto) Abs Immat Gran (auto) Absolute Neuts (auto) Absolute Nucleated RBC Nucleated RBC % (auto) Neutrophils % (Manual) Band Neutrophils % Monocytes % (Manual) Abs Neuts (Manual) Monocytes # (Manual) Toxic Granulation Toxic Vacuolation Dohle Bodies Platelet Estimate Plt Morphology Comment RBC Morphology Polychromasia Hypochromasia Microcytosis Macrocytosis Tear Drop Cells Ovalocytes Fany Cells Acanthocytes (Spur) VBG pH VBG pCO2 VBG pO2 VBG HCO3 VBG O2 Saturation VBG Base Excess Anion Gap Estim Creat Clear Calc Estimated GFR POC Glucose 190 H 158 H 160 H Random Glucose Lactic Acid Lactic Acid F/U @ 2Hr Calcium Phosphorus Magnesium Total Bilirubin AST ALT Alkaline Phosphatase B-Natriuretic Peptide Total Protein Albumin Procalcitonin 07/05/22 07/05/22 07/05/22 21:20 22:16 22:17 MCV 96.3 MCH 32.0 MCHC 33.2 RDW 18.4 H Plt Count 104 L D MPV 11.2 Immature Gran % (Auto) Cancelled Neut % (Auto) Cancelled Lymph % (Auto) Cancelled Bay % (Auto) Cancelled Eos % (Auto) Cancelled Baso % (Auto) Cancelled Lymph # (Auto) Cancelled Bay # (Auto) Cancelled Eos # (Auto) Cancelled Baso # (Auto) Cancelled Abs Immat Gran (auto) Cancelled Absolute Neuts (auto) Cancelled Absolute Nucleated RBC 0.000 Nucleated RBC % (auto) 0.0 Neutrophils % (Manual) 86 H Band Neutrophils % 13 H Monocytes % (Manual) 1 L Abs Neuts (Manual) 26.1 H Monocytes # (Manual) 0.3 Toxic Granulation PRESENT Toxic Vacuolation PRESENT Dohle Bodies PRESENT Platelet Estimate DECREASED Plt Morphology Comment NORMAL RBC Morphology NOTED Polychromasia 2+ (3-5) Hypochromasia 1+ (5-14) Microcytosis 1+ (5-14) Macrocytosis 1+ (5-14) Tear Drop Cells 2+ (3-5) Ovalocytes 2+ (15-30) [place] Cells 3+ (>5) Acanthocytes (Spur) 3+ (>5) VBG pH 7.27 L VBG pCO2 31 VBG pO2 56 VBG HCO3 14 L VBG O2 Saturation 79.0 VBG Base Excess -10.7 Anion Gap Estim Creat Clear Calc Estimated GFR POC Glucose 127 H Random Glucose Lactic Acid Lactic Acid F/U @ 2Hr Calcium Phosphorus Magnesium Total Bilirubin AST ALT Alkaline Phosphatase B-Natriuretic Peptide Total Protein Albumin Procalcitonin 07/05/22 07/05/22 07/06/22 22:17 22:17 00:40 MCV MCH MCHC RDW Plt Count MPV Immature Gran % (Auto) Neut % (Auto) Lymph % (Auto) Bay % (Auto) Eos % (Auto) Baso % (Auto) Lymph # (Auto) Bay # (Auto) Eos # (Auto) Baso # (Auto) Abs Immat Gran (auto) Absolute Neuts (auto) Absolute Nucleated RBC Nucleated RBC % (auto) Neutrophils % (Manual) Band Neutrophils % Monocytes % (Manual) Abs Neuts (Manual) Monocytes # (Manual) Toxic Granulation Toxic Vacuolation Dohle Bodies Platelet Estimate Plt Morphology Comment RBC Morphology Polychromasia Hypochromasia Microcytosis Macrocytosis Tear Drop Cells Ovalocytes [place] Cells Acanthocytes (Spur) VBG pH VBG pCO2 VBG pO2 VBG HCO3 VBG O2 Saturation VBG Base Excess Anion Gap 25 H Estim Creat Clear Calc 18.0 Estimated GFR 12 POC Glucose Random Glucose 138 H Lactic Acid 6.7 H* Lactic Acid F/U @ 2Hr 6.8 H* Calcium 7.7 L Phosphorus 8.6 H Magnesium 2.4 Total Bilirubin 2.4 H AST 20 ALT < 6 Alkaline Phosphatase 62 D B-Natriuretic Peptide Total Protein 4.5 L D Albumin 2.7 L Procalcitonin 07/06/22 07/06/22 07/06/22 05:50 05:50 05:50 MCV 95.3 MCH 31.7 MCHC 33.2 RDW 18.2 H Plt Count 106 L MPV 12.1 Immature Gran % (Auto) Neut % (Auto) Lymph % (Auto) Bay % (Auto) Eos % (Auto) Baso % (Auto) Lymph # (Auto) Bay # (Auto) Eos # (Auto) Baso # (Auto) Abs Immat Gran (auto) Absolute Neuts (auto) Absolute Nucleated RBC 0.000 Nucleated RBC % (auto) 0.0 Neutrophils % (Manual) Band Neutrophils % Monocytes % (Manual) Abs Neuts (Manual) Monocytes # (Manual) Toxic Granulation Toxic Vacuolation Dohle Bodies Platelet Estimate Plt Morphology Comment RBC Morphology Polychromasia Hypochromasia Microcytosis Macrocytosis Tear Drop Cells Ovalocytes [place] Cells Acanthocytes (Spur) VBG pH VBG pCO2 VBG pO2 VBG HCO3 VBG O2 Saturation VBG Base Excess Anion Gap 25 H Estim Creat Clear Calc 17.5 Estimated GFR 11 POC Glucose Random Glucose 128 H Lactic Acid 6.7 H* Lactic Acid F/U @ 2Hr Calcium 7.7 L Phosphorus 8.9 H Magnesium 2.4 Total Bilirubin 2.1 H AST 41 H D ALT < 6 Alkaline Phosphatase 53 B-Natriuretic Peptide Total Protein 4.3 L Albumin 2.6 L Procalcitonin 07/06/22 07/06/22 07/06/22 05:50 05:50 05:51 MCV MCH MCHC RDW Plt Count MPV Immature Gran % (Auto) Neut % (Auto) Lymph % (Auto) Bay % (Auto) Eos % (Auto) Baso % (Auto) Lymph # (Auto) Bay # (Auto) Eos # (Auto) Baso # (Auto) Abs Immat Gran (auto) Absolute Neuts (auto) Absolute Nucleated RBC Nucleated RBC % (auto) Neutrophils % (Manual) Band Neutrophils % Monocytes % (Manual) Abs Neuts (Manual) Monocytes # (Manual) Toxic Granulation Toxic Vacuolation Dohle Bodies Platelet Estimate Plt Morphology Comment RBC Morphology Polychromasia Hypochromasia Microcytosis Macrocytosis Tear Drop Cells Ovalocytes Fany Cells Acanthocytes (Spur) VBG pH 7.33 VBG pCO2 35 VBG pO2 56 VBG HCO3 19 L VBG O2 Saturation 81.0 VBG Base Excess -6.0 Anion Gap Estim Creat Clear Calc Estimated GFR POC Glucose Random Glucose Lactic Acid Lactic Acid F/U @ 2Hr Calcium Phosphorus Magnesium Total Bilirubin AST ALT Alkaline Phosphatase B-Natriuretic Peptide 1245 H Total Protein Albumin Procalcitonin 14.69 07/06/22 07/06/22 07:49 22:17 MCV MCH MCHC RDW Plt Count MPV Immature Gran % (Auto) Neut % (Auto) Lymph % (Auto) Bay % (Auto) Eos % (Auto) Baso % (Auto) Lymph # (Auto) Bay # (Auto) Eos # (Auto) Baso # (Auto) Abs Immat Gran (auto) Absolute Neuts (auto) Absolute Nucleated RBC Nucleated RBC % (auto) Neutrophils % (Manual) Band Neutrophils % Monocytes % (Manual) Abs Neuts (Manual) Monocytes # (Manual) Toxic Granulation Toxic Vacuolation Dohle Bodies Platelet Estimate Plt Morphology Comment RBC Morphology Polychromasia Hypochromasia Microcytosis Macrocytosis Tear Drop Cells Ovalocytes [place] Cells Acanthocytes (Spur) VBG pH VBG pCO2 VBG pO2 VBG HCO3 VBG O2 Saturation VBG Base Excess Anion Gap Estim Creat Clear Calc Estimated GFR POC Glucose 116 H Random Glucose Lactic Acid Lactic Acid F/U @ 2Hr Calcium Phosphorus Magnesium Total Bilirubin AST ALT Alkaline Phosphatase B-Natriuretic Peptide 732 H Total Protein Albumin Procalcitonin Imaging CT scan - abdomen: Radiologist's impression: Impressions Abdomen/Pelvis CT 07/05/22 09:04 IMPRESSION: * Anasarca with persistent findings of pleural effusions, large volume ascites and diffuse edema of subcutaneous tissues. * Cirrhosis, splenomegaly, varices and spontaneous splenorenal shunt. * Pneumoperitoneum has decreased compared to 06/28/2022. The gastrostomy tube is in appropriate position. * The esophagus and stomach are distended with fluid. There is no bowel obstruction. The fluid distention might be a manifestation of gastric hypomotility, or there might be gastroesophageal reflux as well. . Head CT 07/05/22 09:04 IMPRESSION: No acute findings. Mild generalized atrophy and nonspecific periventricular white matter disease similar to previous exams Chest X-Ray 07/05/22 14:27 IMPRESSION: *There has been no significant change, redemonstration of diffuse pulmonary opacification probably pulmonary edema. *Left hemidiaphragm obscured by probably underlying pleural effusion. *Right central line catheter projecting over the SVC. Abdomen X-Ray 07/05/22 22:16 IMPRESSION: 1. Percutaneous gastrostomy tube projects in the left upper quadrant. 2. Lucency beneath the right hemidiaphragm equivocal for intra-abdominal free air versus artifact. Chest X-Ray 07/05/22 22:16 IMPRESSION: 1. Unexpected finding: Lucency beneath the right hemidiaphragm suspicious for intra-abdominal free air. Correlate clinically with any evidence of dislodgment of the percutaneous gastrostomy tube or suspicion for hollow viscus perforation. This critical result was discussed with Dr. Hill Stahl at 10:41 PM on 07/05/2022 and it was ascertained that the content and urgency of the report was understood at the time of direct communication. 2. Right IJ dual-lumen catheter tip terminates in the proximal SVC. 3. No pneumothorax. 4. Small bilateral pleural effusions and patchy bibasilar airspace opacities. 5. Possible mild pulmonary vascular congestion/edema. Abdomen/Pelvis CT 07/06/22 00:31 IMPRESSION: 1. Percutaneous gastrostomy tube terminates in the stomach. Foci of free air are present in the anterior abdomen, new from 07/05/2022. Correlation with recent procedure history is recommended, as this air could be due to to a recent paracentesis given that the volume of ascites appears decreased since the prior exam. Alternatively, perforated viscus could also result in free air. 2. Thick-walled appearance of small bowel loops in the left abdomen, which could be reactive in the setting of ascites or can be seen with enteritis. 3. Bibasilar pulmonary patchy opacities, worsened from prior which could be due to pneumonia or aspiration. Small pleural effusions, left greater than right. 4. Nodular hepatic contour suspicious for cirrhosis. Splenomegaly. Microbiology Microbiology Results: Microbiology 07/05/22 12:30 Gram Stain - Final Ascites Fluid Procedures Date of Service Date of Service: 07/06/22 Progress Note: A&P Assessment and plan (1) Gastrostomy tube in place: Status: Acute Assessment and Plan: CT scan showing foci of air under the abdominal wall I have reviewed previous CAT scans after PEG tube - similar looking foci of air on previous CT scans This is likely from the air leaking through the tract of the PEG tube - the external bolster is not tight on the abdominal wall I tighten the external bolster by pulling the PEG tube snug Paracentesis done yesterday male may also introduced air Abdomen otherwise very benign and soft Okay to use PEG tube Time Spent With Patient Time: Total time spent is greater than 50% in coordination of care (as documented) at patient's floor/unit and/or counseling patient: Quality Stroke Does the patient have a stroke diagnosis?: No VTE Prior VTE?: No VTE Risk Level:: Medical - moderate - high VTE Device Contraindication: Treatment Not Indicated VTE Drug Contraindication: N/A - Med Ordered
[2022-07-06 10:30] LABS: Reflex Lactate? 2 Y
--- NOTE | 2022-07-06 10:37 | PM.PNNEP ---
Subjective Subjective Date of Service: 07/06/22 Interval history: Seen and examiend, events noted Physical Exam Vital Signs: Vital Signs: Last Vital Signs Temp 97.5 F 07/06/22 07:00 Pulse 89 07/06/22 10:00 Resp 11 L 07/06/22 10:00 BP 112/34 L 07/06/22 10:00 Pulse Ox 98 07/06/22 10:00 O2 Del Method 07/06/22 10:00 O2 Flow Rate 50 07/06/22 10:00 FiO2 50 07/06/22 10:00 Oxygen Flow Rate 6 06/20/22 11:59 BMI result Body Mass Index 29.1 Const: Other: Constitutional : Alert with stimulation, restless not in distress Neck : Normal inspection, Supple Cardiovascular : RRR, no JVP, no lower extremity edema Respiratory : fair bilateral air entry, no crackles, wheezes or rhonchi Gastrointestinal: soft, lax, Normal bowel sounds, Non tender Skin : Warm, Dry, ?stage II decubitus ulcer on coccyx, medial right buttock and left buttock Neurological : Alert with stimulation, disoriented, No focal deficit , altered mentation General: cooperative, healthy appearing, comfortable, no acute distress and patient obtunded Nutritional Appearance: overweight Orientation/consciousness: patient oriented x3 and patient obtunded Limitations: altered mental status HEENT: Face and sinus: Yes normal facial exam Mouth: moist mucous membranes Neck: Neck: Yes normal visual inspection, Yes full ROM and Yes trachea midline Chest: Chest palpation & inspection: normal inspection of the chest Resp: Effort & Inspection: normal respiratory effort, able to speak in complete sentences and no respiratory distress GI: Other: Obese abdomen. Peg tube in place with no surrounding erythema. Serous fluid noted on dressings and abdominal binder. Peg was adjusted and pulled up to approximate the mushroom tip to the abdominal wall. Patient tolerated this well. Tube was watched in the leakage was identified. Tube feeds are flowing easily. Inspection: Yes normal to inspection Back/Spine/Pelvis: Cervical Spine: normal cervical lordosis Thoracic/Lumbar Spine: thoracic and lumbar spine normal to inspection Skin: Other: No erythema surrounding the PEG tube. General skin exam: no rashes or lesions noted Neuro: General: patient oriented x3, tone normal, moves all extremities and patient obtunded Extrem: General: Yes normal to inspection and Yes capillary refill normal Objective Data Labs CBC & Chem 7: 07/06/22 05:50 07/06/22 05:50 Labs: Laboratory Results - last 24 hr 07/05/22 07/05/22 07/05/22 13:35 16:25 21:20 WBC RBC Hgb Hct MCV MCH MCHC RDW Plt Count MPV Immature Gran % (Auto) Neut % (Auto) Lymph % (Auto) [place] % (Auto) Eos % (Auto) Baso % (Auto) Lymph # (Auto) [place] # (Auto) Eos # (Auto) Baso # (Auto) Abs Immat Gran (auto) Absolute Neuts (auto) Absolute Nucleated RBC Nucleated RBC % (auto) Neutrophils % (Manual) Band Neutrophils % Monocytes % (Manual) Abs Neuts (Manual) Monocytes # (Manual) Toxic Granulation Toxic Vacuolation Dohle Bodies Platelet Estimate Plt Morphology Comment RBC Morphology Polychromasia Hypochromasia Microcytosis Macrocytosis Tear Drop Cells Ovalocytes Fany Cells Acanthocytes (Spur) VBG pH VBG pCO2 VBG pO2 VBG HCO3 VBG O2 Saturation VBG Base Excess Sodium Potassium Chloride Carbon Dioxide Anion Gap BUN Creatinine Estim Creat Clear Calc Estimated GFR POC Glucose 158 H 160 H 127 H Random Glucose Lactic Acid Lactic Acid F/U @ 2Hr Calcium Phosphorus Magnesium Total Bilirubin AST ALT Alkaline Phosphatase B-Natriuretic Peptide Total Protein Albumin Procalcitonin 07/05/22 07/05/22 07/05/22 22:16 22:17 22:17 WBC 26.4 H RBC 2.69 L Hgb 8.6 L Hct 25.9 L MCV 96.3 MCH 32.0 MCHC 33.2 RDW 18.4 H Plt Count 104 L D MPV 11.2 Immature Gran % (Auto) Cancelled Neut % (Auto) Cancelled Lymph % (Auto) Cancelled [place] % (Auto) Cancelled Eos % (Auto) Cancelled Baso % (Auto) Cancelled Lymph # (Auto) Cancelled [place] # (Auto) Cancelled Eos # (Auto) Cancelled Baso # (Auto) Cancelled Abs Immat Gran (auto) Cancelled Absolute Neuts (auto) Cancelled Absolute Nucleated RBC 0.000 Nucleated RBC % (auto) 0.0 Neutrophils % (Manual) 86 H Band Neutrophils % 13 H Monocytes % (Manual) 1 L Abs Neuts (Manual) 26.1 H Monocytes # (Manual) 0.3 Toxic Granulation PRESENT Toxic Vacuolation PRESENT Dohle Bodies PRESENT Platelet Estimate DECREASED Plt Morphology Comment NORMAL RBC Morphology NOTED Polychromasia 2+ (3-5) Hypochromasia 1+ (5-14) Microcytosis 1+ (5-14) Macrocytosis 1+ (5-14) Tear Drop Cells 2+ (3-5) Ovalocytes 2+ (15-30) Tyler Cells 3+ (>5) Acanthocytes (Spur) 3+ (>5) VBG pH 7.27 L VBG pCO2 31 VBG pO2 56 VBG HCO3 14 L VBG O2 Saturation 79.0 VBG Base Excess -10.7 Sodium 136 Potassium 4.2 Chloride 100 Carbon Dioxide 15 L Anion Gap 25 H BUN 83 H Creatinine 5.07 H* Estim Creat Clear Calc 18.0 Estimated GFR 12 POC Glucose Random Glucose 138 H Lactic Acid Lactic Acid F/U @ 2Hr Calcium 7.7 L Phosphorus 8.6 H Magnesium 2.4 Total Bilirubin 2.4 H AST 20 ALT < 6 Alkaline Phosphatase 62 D B-Natriuretic Peptide Total Protein 4.5 L D Albumin 2.7 L Procalcitonin 07/05/22 07/06/22 07/06/22 22:17 00:40 05:50 WBC 31.1 H* RBC 2.78 L Hgb 8.8 L Hct 26.5 L MCV 95.3 MCH 31.7 MCHC 33.2 RDW 18.2 H Plt Count 106 L MPV 12.1 Immature Gran % (Auto) Neut % (Auto) Lymph % (Auto) [place] % (Auto) Eos % (Auto) Baso % (Auto) Lymph # (Auto) [place] # (Auto) Eos # (Auto) Baso # (Auto) Abs Immat Gran (auto) Absolute Neuts (auto) Absolute Nucleated RBC 0.000 Nucleated RBC % (auto) 0.0 Neutrophils % (Manual) Band Neutrophils % Monocytes % (Manual) Abs Neuts (Manual) Monocytes # (Manual) Toxic Granulation Toxic Vacuolation Dohle Bodies Platelet Estimate Plt Morphology Comment RBC Morphology Polychromasia Hypochromasia Microcytosis Macrocytosis Tear Drop Cells Ovalocytes Tyler Cells Acanthocytes (Spur) VBG pH VBG pCO2 VBG pO2 VBG HCO3 VBG O2 Saturation VBG Base Excess Sodium Potassium Chloride Carbon Dioxide Anion Gap BUN Creatinine Estim Creat Clear Calc Estimated GFR POC Glucose Random Glucose Lactic Acid 6.7 H* Lactic Acid F/U @ 2Hr 6.8 H* Calcium Phosphorus Magnesium Total Bilirubin AST ALT Alkaline Phosphatase B-Natriuretic Peptide Total Protein Albumin Procalcitonin 07/06/22 07/06/22 07/06/22 05:50 05:50 05:50 WBC RBC Hgb Hct MCV MCH MCHC RDW Plt Count MPV Immature Gran % (Auto) Neut % (Auto) Lymph % (Auto) [place] % (Auto) Eos % (Auto) Baso % (Auto) Lymph # (Auto) [place] # (Auto) Eos # (Auto) Baso # (Auto) Abs Immat Gran (auto) Absolute Neuts (auto) Absolute Nucleated RBC Nucleated RBC % (auto) Neutrophils % (Manual) Band Neutrophils % Monocytes % (Manual) Abs Neuts (Manual) Monocytes # (Manual) Toxic Granulation Toxic Vacuolation Dohle Bodies Platelet Estimate Plt Morphology Comment RBC Morphology Polychromasia Hypochromasia Microcytosis Macrocytosis Tear Drop Cells Ovalocytes Tyler Cells Acanthocytes (Spur) VBG pH VBG pCO2 VBG pO2 VBG HCO3 VBG O2 Saturation VBG Base Excess Sodium 141 Potassium 4.1 Chloride 98 Carbon Dioxide 22 Anion Gap 25 H BUN 83 H Creatinine 5.22 H* Estim Creat Clear Calc 17.5 Estimated GFR 11 POC Glucose Random Glucose 128 H Lactic Acid 6.7 H* Lactic Acid F/U @ 2Hr Calcium 7.7 L Phosphorus 8.9 H Magnesium 2.4 Total Bilirubin 2.1 H AST 41 H D ALT < 6 Alkaline Phosphatase 53 B-Natriuretic Peptide 1245 H Total Protein 4.3 L Albumin 2.6 L Procalcitonin 07/06/22 07/06/22 07/06/22 05:50 05:51 07:49 WBC RBC Hgb Hct MCV MCH MCHC RDW Plt Count MPV Immature Gran % (Auto) Neut % (Auto) Lymph % (Auto) [place] % (Auto) Eos % (Auto) Baso % (Auto) Lymph # (Auto) [place] # (Auto) Eos # (Auto) Baso # (Auto) Abs Immat Gran (auto) Absolute Neuts (auto) Absolute Nucleated RBC Nucleated RBC % (auto) Neutrophils % (Manual) Band Neutrophils % Monocytes % (Manual) Abs Neuts (Manual) Monocytes # (Manual) Toxic Granulation Toxic Vacuolation Dohle Bodies Platelet Estimate Plt Morphology Comment RBC Morphology Polychromasia Hypochromasia Microcytosis Macrocytosis Tear Drop Cells Ovalocytes Fany Cells Acanthocytes (Spur) VBG pH 7.33 VBG pCO2 35 VBG pO2 56 VBG HCO3 19 L VBG O2 Saturation 81.0 VBG Base Excess -6.0 Sodium Potassium Chloride Carbon Dioxide Anion Gap BUN Creatinine Estim Creat Clear Calc Estimated GFR POC Glucose 116 H Random Glucose Lactic Acid Lactic Acid F/U @ 2Hr Calcium Phosphorus Magnesium Total Bilirubin AST ALT Alkaline Phosphatase B-Natriuretic Peptide Total Protein Albumin Procalcitonin 14.69 07/06/22 07/06/22 08:27 22:17 WBC RBC Hgb Hct MCV MCH MCHC RDW Plt Count MPV Immature Gran % (Auto) Neut % (Auto) Lymph % (Auto) [place] % (Auto) Eos % (Auto) Baso % (Auto) Lymph # (Auto) [place] # (Auto) Eos # (Auto) Baso # (Auto) Abs Immat Gran (auto) Absolute Neuts (auto) Absolute Nucleated RBC Nucleated RBC % (auto) Neutrophils % (Manual) Band Neutrophils % Monocytes % (Manual) Abs Neuts (Manual) Monocytes # (Manual) Toxic Granulation Toxic Vacuolation Dohle Bodies Platelet Estimate Plt Morphology Comment RBC Morphology Polychromasia Hypochromasia Microcytosis Macrocytosis Tear Drop Cells Ovalocytes Fany Cells Acanthocytes (Spur) VBG pH VBG pCO2 VBG pO2 VBG HCO3 VBG O2 Saturation VBG Base Excess Sodium Potassium Chloride Carbon Dioxide Anion Gap BUN Creatinine Estim Creat Clear Calc Estimated GFR POC Glucose Random Glucose Lactic Acid Lactic Acid F/U @ 2Hr 7.0 H* Calcium Phosphorus Magnesium Total Bilirubin AST ALT Alkaline Phosphatase B-Natriuretic Peptide 732 H Total Protein Albumin Procalcitonin Microbiology Microbiology Results: Microbiology 07/05/22 12:30 Ascites Fluid Gram Stain - Final 06/26/22 15:19 Blood - Venous Blood Culture - Final No growth after 5 days. 06/26/22 14:17 Blood - Venous Blood Culture - Final No growth after 5 days. 06/26/22 16:48 Urine clean catch - Clean Catch Midstream Urine Culture - Final 06/20/22 14:33 Blood - Venous Blood Culture - Final No growth after 5 days. 06/20/22 14:33 Blood - Venous Blood Culture - Final No growth after 5 days. Procedures Date of Service Date of Service: 07/06/22 Assessment & Plan Assessment and plan (1) Acute respiratory failure with hypoxia: Status: Acute Plan 1.Oliguric ERNST: now critically ill and s/p urgent UF yesterday; ICU team is d/w Guardian re level of agressiveiness in management as overall grim prognosis and unlikely to survive this hospititlization even with maximal aggressive interventions Previous w/u as to etiol remains unclear and prior sero w/u in 02/2022 during previous hosp with epsidoe of ERNST reveald low C3/C4 but other seor neg, and wsa started on HD and scheduled for kdiney Bx but now given criticialll status kidney Bx cancelled and will hold off on HD given there is no absolute indication and it is beeing sorted out this am as to how aggressive to be in his are 2. Cirrhosis 3.Resp failure: improved 4. Anemia:will eval for Fe/EPO REC: cont to monitor with ICU indication for HD as depending on guardians desion he may need HD again this PM vs a more conservative approach given the overall prognosis is grave as noted above I have d/w Dr Myers and I will check back later this PM as to update on PT status Time Spent With Patient Time: Total time spent is greater than 50% in coordination of care (as documented) at patient's floor/unit and/or counseling patient: Progress Note: Quality Stroke Does the patient have a stroke diagnosis?: No
--- NOTE | 2022-07-06 10:57 | PM.CCPN ---
Subjective Subjective Date of Service: 07/06/22 Interval History: Mr. Blackburn was transferred to the ICU yesterday afternoon bec of respiratory distress with hypoxemia, likely secondary to aspiration. The patient is very well known to me.? SEE MY NOTE FROM MAY 28.? Briefly, the patient is a 61-year-old gentleman with underlying history of alcoholic cirrhosis, dementia, ataxia, Parkinson?s disease, schizophrenia, diastolic heart failure, and CKD.? He is a resident of [facility].? Up until February of this year, he was reasonably high functioning, talked to people, got around mostly in a wheelchair, but could walk to the bathroom himself, transfers chair to bed by himself. In February, he was hospitalized at [facility] for hepatic encephalopathy and ERNST.? He required a 10 day stay in the ICU for refractory encephalopathy, but improved enough without requiring intubation.? He was discharged on March 15 with a creat of 2.2 (baseline was normal prior to that hospitalization).? For undetermined reasons (mult head CTs and MRI unrevealing; EEG showed generalized slowing), his mental status never returned to baseline, even though his ammonia level normalized.? According to Dr. Moon (who knows him well), after he got back to [facility], his level of animation was about half of what it was previously, and he was not walking at all.? It had been my opinion at that February hospitalization that if he wound up intubated, he?d probably wind up with a tracheostomy and PEG. Mr. Blackburn was hospitalized again March 20- for worsened encephalopathy thought secondary to general deconditioning and advanced Parkinsonism, dementia, and schizophrenia.? Treated by decreasing the dose of gabapentin and holding loratadine and tramadol.? Required multiple doses of Haldol and Ativan to control his agitation.? Psychiatry recommended Seroquel and Ativan as needed.? His mental status improved back to what seemed to be his new baseline, alert and interactive but overall disoriented. The patient was hospitalized again on May 17 with CHF, leg edema, and weight gain.? He was diuresed.? During hospitalization, the patient became increasingly confused.? Geodon was restarted, with prn Seroquel and Ativan.? The patient subsequently had a PEA Code Blue, thought secondary to vomiting and aspiration, with a chunk of meat removed from the hypopharynx on intubation.? Had ROSC and was tx to ICU.? After a few days he woke up and was extubated without incident.? His best mental status prior to transfer out of ICU was arousal with moderate prompting, and when he was awake, he tracked readily, but it took very vigorous prompting to get him to be purposefully interactive (e.g. to nod his head in response to questions), and he would go back to sleep quickly.? He was not talking at all, not making any sounds.? He moved all 4 spontaneously.? On June 14, he underwent PEG under GETA without incident.? He was discharged on June 16 with creat stabilized in the 2.5 range. The patient was readmitted here on June 20 with SOB and hypoxemia, .? He had a low-grade temp.? WBC was 5.7, BUN/creatinine were 53/1.7, BNP was 3997.? Chest x-ray showed severe diffuse bilateral airspace disease, along with bilateral pleural effusions.? Thought either recurrent aspiration pneumonia and/or diastolic heart failure.? He was given broad-spectrum antibiotics and diuresis.? The patient's renal indices lorelei as he was diuresed.? On 06/29, Dr. Lomax recommended dialysis.? A temporary dialysis catheter was placed on 06/29 and dialysis was initiated on 06/30.? On 07/01, Dr. Niño recommended a renal biopsy. Over the last few days, the patient seems to have developed tense ascites.? Yesterday morning, he was sent down to preop surgical holding area in preparation for ultrasound-guided paracentesis and a renal biopsy.? On arrival to the preop holding area, he was in resp distress, with tachypnea, wet sounding cough and breathing, and SpO2 88% on 4L NC.? I put a Yankaur sxn down his throat and suctioned out some yellow fluid.? He had almost no gag reflex.? Ie. it looked like he aspirated. He was taken into the OR and had a paracentesis of 8.8 L under monitored anesthesia care, with no sedation.? He was given 200 cc 25% albumin during the procedure.? The patient tolerated the procedure well and was transferred to ICU post op.? On arrival, mental status was as usual for him:? Eyes closed, moaning.? I was unable to get him to respond to me, even w vigorous stimulation.? Sat 91% on 10L, tracheal sounds were dry and clear, breathing much easier than in the preop holding area.? We ultrafiltered him for two hours and put him on a fentanyl infusion.? His breathing was a little easier.? His BP dropped and we gave him more albumin.? We rechecked labs last nite.? He had a marked met acidosis and elevated lactate.? He was given more albumin.? Blood cultures were drawn and he was started on antibiotics.? An abdominal CT showed patchy opacities on the lung cuts, that were new from the CT scan earlier that day, consistent with aspiration.? There was free air present in the anterior abdomen, consistent with either the paracentesis or leak from his PEG site, given that his abdomen was clinically benign. This morning, the patient is unresponsive his usual, even to vigorous stimulation.? He is breathing easy with a clear airway on a fentanyl infusion at 100 ug, with SpO2 up to 99% on 50% HFNC.? Central venous blood gas this morning showed 7.33/35/-6. ?Afebrile.? Heart rate 89, sinus rhythm.? Blood pressure 106/40 on Levophed 0.15 mcg.? No jugular venous distention with head of bed at 30 degrees.? Chest just shows a few dry coarse crackles at the right base.? Heart rate and rhythm are regular, with normal-sounding S1-S2 without any murmur or gallops.? The abdomen is flat and clinically benign.? He had at least 3+ central edema, prob anasarca.? Dr. Lizarraga came in this morning and tightened up the flange on his PEG tube.? He still has ascites draining from around the PEG tube site into an ostomy bag. LABORATORY DATA:? Below.? Notably, WBC this morning was 31, hemoglobin 8.8, platelet count 106K.? Sodium 141, BUN/creatinine 83/5.1, bicarb 22, potassium 4.1.? Total bili is 2.1, AST and ALT are unremarkable. ?Last PT on 07/01 was 15.8/1.4.? Last ammonia level on June 21 was 33. IMPRESSION: 1. Acute respiratory distress with hypoxemia.? Undoubtedly secondary to aspiration.? He has markedly diminished mental status and no gag reflex.? Recurrent aspiration is expected.? His airway is now clear.? He is breathing easy, smoothly, and comfortably on the fentanyl infusion, with excellent oxygenation. 2. Underlying Parkinson?s dz, on Sinemet. 3. Underlying schizophrenia.? I am holding his Prolixin and Cogentin. 4. Underlying dementia. 5. Underlying alcoholic cirrhosis. 6. Underlying hepatic encephalopathy.? Currently only on lactulose.? Recheck ammonia level tomorrow morning. 7. AMS.? Severely deteriorated mental status.? Either his dementia and/or his Parkinson's and/or schizophrenia have progressed.? On top of that, he has been getting his Gabapentin in the hospital, despite his acute renal failure.? We?ve d/c?d that, but still no improvement in his mental status.? We need to continue is his Sinemet, but everything else is optional. 8. Hypoxemic resp failure on original admission.? Given the severe infiltrates on CXR and only mild-moderate hypoxemia, was most likely CHF, altho as much as he probably aspirates frequently, the latter can?t be ruled out. 9. ERNST.? Progressive renal failure as he was diuresed.? Classic right heart failure/end stage cardiorenal syndrome.? I commented on that in my last note of .? I?m shocked that he was started on dialysis in the first place.? From a practical point of view, there is no indication for any renal biopsy here. 10. Diastolic heart failure and right heart failure. 11. Massive anasarca.? 2? above factors. 12. Metabolic acidosis.? 2? acute renal failure. 13.. DM.? On SS insulin. 14. Anemia -- acute on chronic.? Undoubtedly has ACD. 15. Mild coagulopathy.? 2? liver disease.? Corrected last time after 50 mg Vit K.? Recheck PT tomorrow morning. 16. Decubitus ulcers.? Usual care. 17. Nutrition.? Tube feeds. Code status.? Last time he was here, I discussed that with Dr. Moon at some length.? In our opinion, Adilson's quality of life is getting much worse.? If he gets intubated again, it?s going to result in a tracheostomy and PEG, and no quality of life.? Neither of us feel that that would be in his interest.? He should have DNR/DNI status, maybe even TWIST PACKER status.? I discussed that on May 26 with his guardian, Tanesha Pruitt ([phone] and [phone]).? She agreed, but a court order would be needed to establish the DNR status. I spoke with Mrs. Pruitt again this morning? I went in to much greater depth regarding his current clinical condition and mental functioning.? I voiced my opinion that starting him on dialysis was a travesty, even unethical (IMO).? He has no functional mental status, and no ?quality of life?.? His status should be changed to DNR/DNI, or TWIST PACKER, and no further dialysis or other invasive procedures should be carried out.? I believe she fully understands the situation. Later I spoke with Dr. Moon.? He knows the patient well and is fully in agreement.? He told me that the process of establishing DNR/DNI status was begun, but it just took a long time. Lastly, this afternoon I spoke with Feli Neri ([phone]), the patient?s guardian for his Ramesh?s Order in [place].? I had the same discussion with her as with Mrs. Pruitt, and she fully gets the picture.? She emphasized the need to follow the needs of the legal process, and I am in complete agreement. I worked with Tere Magana from case management today and she worked with the hospital defense attorney to build the petition for the court.? I?ve signed that, and we will wait for the court date. Given the above, I will do everything clinically possible to avoid tracheal intubation until the patient?s code status can be changed. Critical care time: 2+ hrs. Critical Care Time (minutes): 120 Physical Exam Vital Signs: Vital Signs: Last Vital Signs Temp 97.5 F 07/06/22 07:00 Pulse 89 07/06/22 10:00 Resp 11 L 07/06/22 10:00 BP 112/34 L 07/06/22 10:00 Pulse Ox 98 07/06/22 10:00 O2 Del Method 07/06/22 10:00 O2 Flow Rate 50 07/06/22 10:00 FiO2 50 07/06/22 10:00 Oxygen Flow Rate 6 06/20/22 11:59 BMI result Body Mass Index 29.1 Objective Data Labs CBC & Chem 7: 07/06/22 05:50 07/06/22 05:50 Labs: Laboratory Results - last 24 hr 07/05/22 07/05/22 07/05/22 13:35 16:25 21:20 WBC RBC Hgb Hct MCV MCH MCHC RDW Plt Count MPV Immature Gran % (Auto) Neut % (Auto) Lymph % (Auto) [place] % (Auto) Eos % (Auto) Baso % (Auto) Lymph # (Auto) [place] # (Auto) Eos # (Auto) Baso # (Auto) Abs Immat Gran (auto) Absolute Neuts (auto) Absolute Nucleated RBC Nucleated RBC % (auto) Neutrophils % (Manual) Band Neutrophils % Monocytes % (Manual) Abs Neuts (Manual) Monocytes # (Manual) Toxic Granulation Toxic Vacuolation Dohle Bodies Platelet Estimate Plt Morphology Comment RBC Morphology Polychromasia Hypochromasia Microcytosis Macrocytosis Tear Drop Cells Ovalocytes Hart Cells Acanthocytes (Spur) VBG pH VBG pCO2 VBG pO2 VBG HCO3 VBG O2 Saturation VBG Base Excess Sodium Potassium Chloride Carbon Dioxide Anion Gap BUN Creatinine Estim Creat Clear Calc Estimated GFR POC Glucose 158 H 160 H 127 H Random Glucose Lactic Acid Lactic Acid F/U @ 2Hr Calcium Phosphorus Magnesium Total Bilirubin AST ALT Alkaline Phosphatase B-Natriuretic Peptide Total Protein Albumin Procalcitonin 07/05/22 07/05/22 07/05/22 22:16 22:17 22:17 WBC 26.4 H RBC 2.69 L Hgb 8.6 L Hct 25.9 L MCV 96.3 MCH 32.0 MCHC 33.2 RDW 18.4 H Plt Count 104 L D MPV 11.2 Immature Gran % (Auto) Cancelled Neut % (Auto) Cancelled Lymph % (Auto) Cancelled [place] % (Auto) Cancelled Eos % (Auto) Cancelled Baso % (Auto) Cancelled Lymph # (Auto) Cancelled [place] # (Auto) Cancelled Eos # (Auto) Cancelled Baso # (Auto) Cancelled Abs Immat Gran (auto) Cancelled Absolute Neuts (auto) Cancelled Absolute Nucleated RBC 0.000 Nucleated RBC % (auto) 0.0 Neutrophils % (Manual) 86 H Band Neutrophils % 13 H Monocytes % (Manual) 1 L Abs Neuts (Manual) 26.1 H Monocytes # (Manual) 0.3 Toxic Granulation PRESENT Toxic Vacuolation PRESENT Dohle Bodies PRESENT Platelet Estimate DECREASED Plt Morphology Comment NORMAL RBC Morphology NOTED Polychromasia 2+ (3-5) Hypochromasia 1+ (5-14) Microcytosis 1+ (5-14) Macrocytosis 1+ (5-14) Tear Drop Cells 2+ (3-5) Ovalocytes 2+ (15-30) Fany Cells 3+ (>5) Acanthocytes (Spur) 3+ (>5) VBG pH 7.27 L VBG pCO2 31 VBG pO2 56 VBG HCO3 14 L VBG O2 Saturation 79.0 VBG Base Excess -10.7 Sodium 136 Potassium 4.2 Chloride 100 Carbon Dioxide 15 L Anion Gap 25 H BUN 83 H Creatinine 5.07 H* Estim Creat Clear Calc 18.0 Estimated GFR 12 POC Glucose Random Glucose 138 H Lactic Acid Lactic Acid F/U @ 2Hr Calcium 7.7 L Phosphorus 8.6 H Magnesium 2.4 Total Bilirubin 2.4 H AST 20 ALT < 6 Alkaline Phosphatase 62 D B-Natriuretic Peptide Total Protein 4.5 L D Albumin 2.7 L Procalcitonin 07/05/22 07/06/22 07/06/22 22:17 00:40 05:50 WBC 31.1 H* RBC 2.78 L Hgb 8.8 L Hct 26.5 L MCV 95.3 MCH 31.7 MCHC 33.2 RDW 18.2 H Plt Count 106 L MPV 12.1 Immature Gran % (Auto) Neut % (Auto) Lymph % (Auto) [place] % (Auto) Eos % (Auto) Baso % (Auto) Lymph # (Auto) [place] # (Auto) Eos # (Auto) Baso # (Auto) Abs Immat Gran (auto) Absolute Neuts (auto) Absolute Nucleated RBC 0.000 Nucleated RBC % (auto) 0.0 Neutrophils % (Manual) Band Neutrophils % Monocytes % (Manual) Abs Neuts (Manual) Monocytes # (Manual) Toxic Granulation Toxic Vacuolation Dohle Bodies Platelet Estimate Plt Morphology Comment RBC Morphology Polychromasia Hypochromasia Microcytosis Macrocytosis Tear Drop Cells Ovalocytes Hart Cells Acanthocytes (Spur) VBG pH VBG pCO2 VBG pO2 VBG HCO3 VBG O2 Saturation VBG Base Excess Sodium Potassium Chloride Carbon Dioxide Anion Gap BUN Creatinine Estim Creat Clear Calc Estimated GFR POC Glucose Random Glucose Lactic Acid 6.7 H* Lactic Acid F/U @ 2Hr 6.8 H* Calcium Phosphorus Magnesium Total Bilirubin AST ALT Alkaline Phosphatase B-Natriuretic Peptide Total Protein Albumin Procalcitonin 07/06/22 07/06/22 07/06/22 05:50 05:50 05:50 WBC RBC Hgb Hct MCV MCH MCHC RDW Plt Count MPV Immature Gran % (Auto) Neut % (Auto) Lymph % (Auto) [place] % (Auto) Eos % (Auto) Baso % (Auto) Lymph # (Auto) [place] # (Auto) Eos # (Auto) Baso # (Auto) Abs Immat Gran (auto) Absolute Neuts (auto) Absolute Nucleated RBC Nucleated RBC % (auto) Neutrophils % (Manual) Band Neutrophils % Monocytes % (Manual) Abs Neuts (Manual) Monocytes # (Manual) Toxic Granulation Toxic Vacuolation Dohle Bodies Platelet Estimate Plt Morphology Comment RBC Morphology Polychromasia Hypochromasia Microcytosis Macrocytosis Tear Drop Cells Ovalocytes Hart Cells Acanthocytes (Spur) VBG pH VBG pCO2 VBG pO2 VBG HCO3 VBG O2 Saturation VBG Base Excess Sodium 141 Potassium 4.1 Chloride 98 Carbon Dioxide 22 Anion Gap 25 H BUN 83 H Creatinine 5.22 H* Estim Creat Clear Calc 17.5 Estimated GFR 11 POC Glucose Random Glucose 128 H Lactic Acid 6.7 H* Lactic Acid F/U @ 2Hr Calcium 7.7 L Phosphorus 8.9 H Magnesium 2.4 Total Bilirubin 2.1 H AST 41 H D ALT < 6 Alkaline Phosphatase 53 B-Natriuretic Peptide 1245 H Total Protein 4.3 L Albumin 2.6 L Procalcitonin 07/06/22 07/06/22 07/06/22 05:50 05:51 07:49 WBC RBC Hgb Hct MCV MCH MCHC RDW Plt Count MPV Immature Gran % (Auto) Neut % (Auto) Lymph % (Auto) [place] % (Auto) Eos % (Auto) Baso % (Auto) Lymph # (Auto) [place] # (Auto) Eos # (Auto) Baso # (Auto) Abs Immat Gran (auto) Absolute Neuts (auto) Absolute Nucleated RBC Nucleated RBC % (auto) Neutrophils % (Manual) Band Neutrophils % Monocytes % (Manual) Abs Neuts (Manual) Monocytes # (Manual) Toxic Granulation Toxic Vacuolation Dohle Bodies Platelet Estimate Plt Morphology Comment RBC Morphology Polychromasia Hypochromasia Microcytosis Macrocytosis Tear Drop Cells Ovalocytes Fany Cells Acanthocytes (Spur) VBG pH 7.33 VBG pCO2 35 VBG pO2 56 VBG HCO3 19 L VBG O2 Saturation 81.0 VBG Base Excess -6.0 Sodium Potassium Chloride Carbon Dioxide Anion Gap BUN Creatinine Estim Creat Clear Calc Estimated GFR POC Glucose 116 H Random Glucose Lactic Acid Lactic Acid F/U @ 2Hr Calcium Phosphorus Magnesium Total Bilirubin AST ALT Alkaline Phosphatase B-Natriuretic Peptide Total Protein Albumin Procalcitonin 14.69 07/06/22 07/06/22 08:27 22:17 WBC RBC Hgb Hct MCV MCH MCHC RDW Plt Count MPV Immature Gran % (Auto) Neut % (Auto) Lymph % (Auto) [place] % (Auto) Eos % (Auto) Baso % (Auto) Lymph # (Auto) [place] # (Auto) Eos # (Auto) Baso # (Auto) Abs Immat Gran (auto) Absolute Neuts (auto) Absolute Nucleated RBC Nucleated RBC % (auto) Neutrophils % (Manual) Band Neutrophils % Monocytes % (Manual) Abs Neuts (Manual) Monocytes # (Manual) Toxic Granulation Toxic Vacuolation Dohle Bodies Platelet Estimate Plt Morphology Comment RBC Morphology Polychromasia Hypochromasia Microcytosis Macrocytosis Tear Drop Cells Ovalocytes Fany Cells Acanthocytes (Spur) VBG pH VBG pCO2 VBG pO2 VBG HCO3 VBG O2 Saturation VBG Base Excess Sodium Potassium Chloride Carbon Dioxide Anion Gap BUN Creatinine Estim Creat Clear Calc Estimated GFR POC Glucose Random Glucose Lactic Acid Lactic Acid F/U @ 2Hr 7.0 H* Calcium Phosphorus Magnesium Total Bilirubin AST ALT Alkaline Phosphatase B-Natriuretic Peptide 732 H Total Protein Albumin Procalcitonin Microbiology Microbiology Results: Microbiology 07/05/22 12:30 Ascites Fluid Gram Stain - Final 07/05/22 12:30 Ascites Fluid Routine Culture - Preliminary Culture in progress. 07/05/22 12:30 Ascites Fluid Anaerobic Culture - Preliminary Culture in progress. 06/26/22 15:19 Blood - Venous Blood Culture - Final No growth after 5 days. 06/26/22 14:17 Blood - Venous Blood Culture - Final No growth after 5 days. 06/26/22 16:48 Urine clean catch - Clean Catch Midstream Urine Culture - Final 06/20/22 14:33 Blood - Venous Blood Culture - Final No growth after 5 days. 06/20/22 14:33 Blood - Venous Blood Culture - Final No growth after 5 days. Quality Stroke Does the patient have a stroke diagnosis?: No VTE Prior VTE?: No VTE Risk Level:: Medical - moderate - high VTE Device Contraindication: Treatment Not Indicated VTE Drug Contraindication: N/A - Med Ordered Critical Care Time Critical Care Time (minutes): 120
[2022-07-06] MEDS: Levothyroxine Sodium 25 MCG TABLET G-TUBE (11:09)
[2022-07-06] MEDS: Carbidopa/Levodopa 25/100 TABLET 1 TAB G-TUBE ×3 (11:09→19:59)
[2022-07-06 11:19] LABS: Glucose, Whole Blood 105 mg/dL (60-115)
--- NOTE | 2022-07-06 11:53 | MHC.CLN ---
F/U PATIENT TO ICU 07/05. NPO STATUS AND NO TUBE FEEDING.. DISCUSSED AT ROUNDS. TUBE FEEDING HELD SINCE 07/05 FOR PROCEDURE. PRIOR TUBE FEED ORDER: NEPRO AT MAX GOAL RATE 45ML/HR WITH 30ML PROSOURCE Q DAY AND 300ML FREE WATER FLUSHES Q 4 HRS TO PROVIDE 2004KCALS (23KCALS/KG), 102G PROTEIN (1.17G/KG), 2585ML TOTAL WATER FROM FORMULA AND FLUSHES (30ML/KG). PATIENT WITH STAGE II PRESSURE INJURY TO COCCYX. RECEIVED CONSULT FOR WOUND. CONTINUE TO FOLLOW WITH TEAM.
--- NOTE | 2022-07-06 12:31 | MHC.CM.PN ---
Addendum entered by Tere Magana 07/06/22 13:57: Note- Patient has Ramesh's order in [place]. That is the order [facility] will be petitioning for code status change. Feli He is the guardian for the Amandeep @ [phone]. Original Note: PEr MD Rounds requested to start processes for petitioning courts to address patient's code status. All documents have been prepared, signed and sent to Rajesh to file will court. Case Management will assist with process moving forward.
[2022-07-06 13:23] LABS: Cancel Lactic Acid Canceled
--- NOTE | 2022-07-06 13:23 | MHC.SLORD ---
Speech Language Pathology Order Status: Pt has been transferred to ICU d/t clinical decline- Per chart review past 24 hours- concern for aspiration, respiratory distress, pt lethargic and minimally responsive, getting suctioned. Not appropriate for clinical swallow evaluation at this time.
--- NOTE | 2022-07-06 13:47 | ECG_ITS ---
Test Reason : r/o afib Blood Pressure : / mmHG Vent. Rate : 110 BPM Atrial Rate : 000 BPM P-R Int : 000 ms QRS Dur : 112 ms QT Int : 344 ms P-R-T Axes : 000 -61 096 degrees QTc Int : 465 ms Atrial fibrillation with rapid ventricular response Left anterior fascicular block Minimal voltage criteria for LVH, may be normal variant ( Todd product ) Abnormal QRS-T angle, consider primary T wave abnormality Abnormal ECG When compared with ECG of 20-JUN-2022 12:16, Atrial fibrillation has replaced Sinus rhythm T wave amplitude has increased in Inferior leads Inverted T waves have replaced nonspecific T wave abnormality in Lateral leads Referred By: Harris Myers Electronically Signed By:ESTEFANY JIMÉNEZ
[2022-07-06] MEDS: Metoprolol Tartrate 25 MG TABLET G-TUBE ×2 (13:50→20:00)
[2022-07-06] MEDS: Nystatin Powder 15 GM BOTTLE 1 APPL TOPICAL ×2 (13:50→20:04)
[2022-07-06 17:56] LABS: Glucose, Whole Blood 80 mg/dL (60-115)
[2022-07-06] MEDS: Sodium Bicarbonate 650 MG TABLET G-TUBE ×2 (17:57→19:59)
[2022-07-06] MEDS: fentaNYL citrate/NS 1,000 MCG/100 ML PLAST..BAG 10 MCG IVCONT (19:53)
[2022-07-06 20:09] LABS: Glucose, Whole Blood 55 mg/dL (60-115)
[2022-07-06 20:09] LABS: Glucose, Whole Blood 53 mg/dL (60-115)
[2022-07-06] MEDS: Dextrose 50 % 25 GM/50 ML SYRINGE IVPUSH (20:14)
[2022-07-06 21:41] LABS: Glucose, Whole Blood 100 mg/dL (60-115)
--- NOTE | 2022-07-06 23:03 | P.CONWO_ITS ---
History of Present Illness Data of Consult Service Date: 07/06/22 Requesting physician: Hua Lang Primary Care Provider: Daniel Moon DO HPI Reason for consult: sacral wound pt comes in with pneumonia and other med issues and with recent gtube placement. has had long bedrest stays in icu also and has pressure injury on sacral area wound care consult for staging [facility] Medical History (Updated 07/06/22 @ 23:08 by Dee Eid MD) Abnormal findings on diagnostic imaging of liver and biliary tract Acute kidney failure, unspecified Acute respiratory failure with hypoxia Alcohol abuse, uncomplicated Alcoholic cirrhosis of liver with ascites Allergic rhinitis due to pollen Anemia Ataxia Cannabis use, unspecified, uncomplicated Chronic kidney disease, stage 3 unspecified Chronic renal failure CKD (chronic kidney disease) stage 3, GFR 30-59 ml/min Cocaine abuse, uncomplicated Dementia Dementia in other diseases classified elsewhere with behavioral disturbance Diabetes Disorder of urea cycle metabolism, unspecified Drug abuse, cocaine type Dysphagia, oral phase Dysphagia, oropharyngeal phase Essential (primary) hypertension Essential tremor ETOH abuse Gastrostomy tube in place Hepatic failure, unspecified without coma Hepatomegaly, not elsewhere classified Hereditary and idiopathic neuropathy, unspecified Hereditary ataxia, unspecified Hyperosmolality and hypernatremia Intracranial hemorrhage, subdural Mild cognitive impairment, so stated Muscle weakness (generalized) Myopia, bilateral Orthostatic hypotension Osteophyte, unspecified joint Other chronic allergic conjunctivitis Other lack of coordination Other pancytopenia Other skin changes Other specified eating disorder Other speech disturbances Pain in unspecified shoulder Parkinson disease Pneumonitis due to inhalation of food and vomit Repeated falls Schizophrenia Sepsis, unspecified organism Subdural hematoma Tinea pedis Toxic metabolic encephalopathy Traumatic subdural hemorrhage without loss of consciousness, subsequent en counter Type 2 diabetes mellitus with diabetic polyneuropathy Unspecified dementia with behavioral disturbance Unsteadiness on feet Family History Other Hypertension Social History Household Members: Other Household Members Other:: Other residents Housing: Alf Housing Other:: [facility] Do you presently have visiting nurse or other home services: No Unable to assess alcohol history related to: Unknown Alcohol intake: former Patient Tobacco Use Status: Former Tobacco user Tobacco use type: Cigarette Cigarettes Per Day: 1 Second Hand Smoke Exposure: No service: No ([employer]) Current occupational status: disabled Meds Allergies Allergy/AdvReac Type Severity Reaction Status Date / Time pollen extracts Allergy Unknown Verified 03/20/22 13:42 ragweed pollen Allergy Unknown Verified 03/20/22 13:42 Active Medications: Current Medications Carbidopa/Levodopa (Carbidopa/Levodopa 25/100 Tablet) 1 tab G-TUBE QID [facility] Last Admin: 07/06/22 19:59 Dose: 1 tab Fentanyl (Sublimaze/Ns) 1,000 mcg in 100 mls @ 0 mls/hr IVCONT .Q0M [facility]; Protocol Last Admin: 07/06/22 19:53 Dose: 100 mcg/hr, 10 mls/hr Norepinephrine Bitartrate (Levophed) 8 mg in 250 mls @ 0 mls/hr IVCONT .Q0M [facility]; Protocol Last Admin: 07/06/22 21:37 Dose: 0.15 mcg/kg/min, 27.39 mls/hr Insulin Human Lispro (Insulin Lispro 100 Unit/Ml 3 Ml Vial) 0 unit SUBCUT QIDACHS [facility]; Protocol Last Admin: 07/06/22 20:03 Dose: Not Given Levothyroxine Sodium (Levothyroxine Sodium 25 Mcg Tablet) 25 mcg G-TUBE DAILY@0600 [facility] Last Admin: 07/06/22 11:09 Dose: 25 mcg Metoprolol Tartrate (Metoprolol Tartrate 25 Mg Tablet) 25 mg G-TUBE BID [facility]; Protocol Last Admin: 07/06/22 20:00 Dose: 25 mg Nystatin (Nystatin Powder 15 Gm Bottle) 1 appl TOPICAL BID [facility]; Protocol Last Admin: 07/06/22 20:04 Dose: 1 appl Olanzapine (Olanzapine 10 Mg Vial) 5 mg IM DAILY PRN PRN Reason: agitation Last Admin: 07/03/22 02:23 Dose: 5 mg Pantoprazole Sodium (Pantoprazole Sodium 40 Mg/10 Ml Vial) 40 mg IVPUSH DAILY@0630 [facility] Last Admin: 07/06/22 06:52 Dose: 40 mg Quetiapine Fumarate (Quetiapine Fumarate 25 Mg Tablet) 25 mg PO BID PRN PRN Reason: anxiety/restlessness Last Admin: 07/04/22 02:09 Dose: 25 mg Sodium Bicarbonate (Sodium Bicarbonate 650 Mg Tablet) 650 mg G-TUBE TID [facility] Last Admin: 07/06/22 19:59 Dose: 650 mg Sodium Chloride (0.9 % Sodium Chloride Flush 3 Ml Syringe) [facility] Last Admin: 07/06/22 17:58 Dose: 3 ml Home Medications Medication Instructions Recorded Confirmed Last Taken Type benztropine 1 mg tablet 1 mg PO BID 11/18/20 06/20/22 Unknown History carbidopa 25 mg-levodopa 100 mg 1 tab PO QID 11/18/20 06/20/22 Unknown History tablet (Sinemet) fluphenazine decanoate 25 mg/mL 50 mg subcut Q14D 11/18/20 06/20/22 03/16/22 History injection solution miconazole nitrate 2 % topical 1 spray topical BID PRN fungal 11/18/20 06/20/22 Unknown History spray (Lotrimin AF) infection tramadol 50 mg tablet 50 mg PO BID 11/18/20 06/20/22 Unknown History docusate sodium 100 mg tablet 100 mg PO BEDTIME 12/10/20 06/20/22 Unknown History sennosides 8.6 mg tablet (senna) 8.6 mg PO DAILY PRN Constipation 12/10/20 06/20/22 Unknown History levothyroxine 25 mcg tablet 25 mcg PO DAILY@0600 02/19/22 06/20/22 Unknown History multivitamin 1 tab PO DAILY 02/19/22 06/20/22 Unknown History rifaximin 550 mg tablet (Xifaxan) 1 tab PO BID 02/19/22 06/20/22 Unknown History Calazime [facility] 03/20/22 06/20/22 Unknown History acetaminophen 325 mg tablet 650 mg PO Q4H PRN PAIN/TEMP>100 03/20/22 06/20/22 Unknown History bisacodyl 10 mg rectal suppository 10 mg WI DAILY PRN Constipation 03/20/22 06/20/22 Unknown History guaifenesin 100 mg/5 mL oral liquid 200 mg PO Q4H PRN Cough 03/20/22 06/20/22 Unknown History lactulose 20 gram/30 mL oral 30 ml PO DAILY 03/20/22 06/20/22 Unknown History solution metoprolol tartrate 25 mg tablet 25 mg PO BID 03/20/22 06/20/22 Unknown History gabapentin 300 mg capsule 300 mg PO TID 05/17/22 06/20/22 Unknown History insulin glargine 100 unit/mL (3 20 unit subcut BID 05/17/22 06/20/22 Unknown History mL) subcutaneous pen (Lantus Solostar U-100 Insulin) insulin lispro 100 unit/mL See Protocol subcut QIDACHS 05/17/22 06/20/22 Unknown History subcutaneous pen (Humalog KwikPen (U-100) Insulin) amoxicillin 200 mg-potassium 21.9 ml PO BID 06/20/22 06/20/22 Unknown History clavulanate 28.5 mg/5 mL oral suspension furosemide 20 mg tablet 20 mg PO DAILY 06/20/22 06/20/22 Unknown History Physical Exam Vital Signs and Narrative: Vital Signs: Last Vital Signs Temp 98.3 F 07/06/22 19:43 Pulse 122 H 07/06/22 22:55 Resp 14 07/06/22 22:55 BP 103/34 L 07/06/22 22:55 Pulse Ox 93 07/06/22 22:55 O2 Del Method 07/06/22 22:55 O2 Flow Rate 40 07/06/22 22:55 FiO2 50 07/06/22 22:55 Oxygen Flow Rate 6 06/20/22 11:59 BMI result Body Mass Index 29.1 Skin: Other: areas of skin breakdown midline area and a little to left and right of sacrum but extent looks like into dermal area stage 2 Results Labs CBC and Chem 7: 07/06/22 05:50 07/06/22 05:50 Labs: Laboratory Results - last 24 hr 07/05/22 07/05/22 07/06/22 22:17 22:17 00:40 MCV MCH MCHC RDW Plt Count MPV Absolute Nucleated RBC Nucleated RBC % (auto) Neutrophils % (Manual) 86 H Band Neutrophils % 13 H Monocytes % (Manual) 1 L Abs Neuts (Manual) 26.1 H Monocytes # (Manual) 0.3 Toxic Granulation PRESENT Toxic Vacuolation PRESENT Dohle Bodies PRESENT Platelet Estimate DECREASED Plt Morphology Comment NORMAL RBC Morphology NOTED Polychromasia 2+ (3-5) Hypochromasia 1+ (5-14) Microcytosis 1+ (5-14) Macrocytosis 1+ (5-14) Tear Drop Cells 2+ (3-5) Ovalocytes 2+ (15-30) Fany Cells 3+ (>5) Acanthocytes (Spur) 3+ (>5) VBG pH VBG pCO2 VBG pO2 VBG HCO3 VBG O2 Saturation VBG Base Excess Anion Gap Estim Creat Clear Calc Estimated GFR POC Glucose Random Glucose Lactic Acid Lactic Acid F/U @ 2Hr 6.8 H* Calcium Phosphorus 8.6 H Magnesium 2.4 Total Bilirubin AST ALT Alkaline Phosphatase B-Natriuretic Peptide Total Protein Albumin Procalcitonin 07/06/22 07/06/22 07/06/22 05:50 05:50 05:50 MCV 95.3 MCH 31.7 MCHC 33.2 RDW 18.2 H Plt Count 106 L MPV 12.1 Absolute Nucleated RBC 0.000 Nucleated RBC % (auto) 0.0 Neutrophils % (Manual) Band Neutrophils % Monocytes % (Manual) Abs Neuts (Manual) Monocytes # (Manual) Toxic Granulation Toxic Vacuolation Dohle Bodies Platelet Estimate Plt Morphology Comment RBC Morphology Polychromasia Hypochromasia Microcytosis Macrocytosis Tear Drop Cells Ovalocytes [place] Cells Acanthocytes (Spur) VBG pH VBG pCO2 VBG pO2 VBG HCO3 VBG O2 Saturation VBG Base Excess Anion Gap 25 H Estim Creat Clear Calc 17.5 Estimated GFR 11 POC Glucose Random Glucose 128 H Lactic Acid 6.7 H* Lactic Acid F/U @ 2Hr Calcium 7.7 L Phosphorus 8.9 H Magnesium 2.4 Total Bilirubin 2.1 H AST 41 H D ALT < 6 Alkaline Phosphatase 53 B-Natriuretic Peptide Total Protein 4.3 L Albumin 2.6 L Procalcitonin 07/06/22 07/06/22 07/06/22 05:50 05:50 05:51 MCV MCH MCHC RDW Plt Count MPV Absolute Nucleated RBC Nucleated RBC % (auto) Neutrophils % (Manual) Band Neutrophils % Monocytes % (Manual) Abs Neuts (Manual) Monocytes # (Manual) Toxic Granulation Toxic Vacuolation Dohle Bodies Platelet Estimate Plt Morphology Comment RBC Morphology Polychromasia Hypochromasia Microcytosis Macrocytosis Tear Drop Cells Ovalocytes Fany Cells Acanthocytes (Spur) VBG pH 7.33 VBG pCO2 35 VBG pO2 56 VBG HCO3 19 L VBG O2 Saturation 81.0 VBG Base Excess -6.0 Anion Gap Estim Creat Clear Calc Estimated GFR POC Glucose Random Glucose Lactic Acid Lactic Acid F/U @ 2Hr Calcium Phosphorus Magnesium Total Bilirubin AST ALT Alkaline Phosphatase B-Natriuretic Peptide 1245 H Total Protein Albumin Procalcitonin 14.69 07/06/22 07/06/22 07/06/22 07:49 08:27 11:14 MCV MCH MCHC RDW Plt Count MPV Absolute Nucleated RBC Nucleated RBC % (auto) Neutrophils % (Manual) Band Neutrophils % Monocytes % (Manual) Abs Neuts (Manual) Monocytes # (Manual) Toxic Granulation Toxic Vacuolation Dohle Bodies Platelet Estimate Plt Morphology Comment RBC Morphology Polychromasia Hypochromasia Microcytosis Macrocytosis Tear Drop Cells Ovalocytes [place] Cells Acanthocytes (Spur) VBG pH VBG pCO2 VBG pO2 VBG HCO3 VBG O2 Saturation VBG Base Excess Anion Gap Estim Creat Clear Calc Estimated GFR POC Glucose 116 H 105 Random Glucose Lactic Acid Lactic Acid F/U @ 2Hr 7.0 H* Calcium Phosphorus Magnesium Total Bilirubin AST ALT Alkaline Phosphatase B-Natriuretic Peptide Total Protein Albumin Procalcitonin 07/06/22 07/06/22 07/06/22 17:53 20:02 20:05 MCV MCH MCHC RDW Plt Count MPV Absolute Nucleated RBC Nucleated RBC % (auto) Neutrophils % (Manual) Band Neutrophils % Monocytes % (Manual) Abs Neuts (Manual) Monocytes # (Manual) Toxic Granulation Toxic Vacuolation Dohle Bodies Platelet Estimate Plt Morphology Comment RBC Morphology Polychromasia Hypochromasia Microcytosis Macrocytosis Tear Drop Cells Ovalocytes [place] Cells Acanthocytes (Spur) VBG pH VBG pCO2 VBG pO2 VBG HCO3 VBG O2 Saturation VBG Base Excess Anion Gap Estim Creat Clear Calc Estimated GFR POC Glucose 80 55 L* 53 L* Random Glucose Lactic Acid Lactic Acid F/U @ 2Hr Calcium Phosphorus Magnesium Total Bilirubin AST ALT Alkaline Phosphatase B-Natriuretic Peptide Total Protein Albumin Procalcitonin 07/06/22 07/06/22 21:37 22:17 MCV MCH MCHC RDW Plt Count MPV Absolute Nucleated RBC Nucleated RBC % (auto) Neutrophils % (Manual) Band Neutrophils % Monocytes % (Manual) Abs Neuts (Manual) Monocytes # (Manual) Toxic Granulation Toxic Vacuolation Dohle Bodies Platelet Estimate Plt Morphology Comment RBC Morphology Polychromasia Hypochromasia Microcytosis Macrocytosis Tear Drop Cells Ovalocytes Fany Cells Acanthocytes (Spur) VBG pH VBG pCO2 VBG pO2 VBG HCO3 VBG O2 Saturation VBG Base Excess Anion Gap Estim Creat Clear Calc Estimated GFR POC Glucose 100 Random Glucose Lactic Acid Lactic Acid F/U @ 2Hr Calcium Phosphorus Magnesium Total Bilirubin AST ALT Alkaline Phosphatase B-Natriuretic Peptide 732 H Total Protein Albumin Procalcitonin Imaging Radiologist's Impressions: Impressions Paracentesis Ultrasound 07/05/22 13:30 IMPRESSION: Ultrasound-guided paracentesis. Abdomen/Pelvis CT 07/06/22 00:31 IMPRESSION: 1. Percutaneous gastrostomy tube terminates in the stomach. Foci of free air are present in the anterior abdomen, new from 07/05/2022. Correlation with recent procedure history is recommended, as this air could be due to to a recent paracentesis given that the volume of ascites appears decreased since the prior exam. Alternatively, perforated viscus could also result in free air. 2. Thick-walled appearance of small bowel loops in the left abdomen, which could be reactive in the setting of ascites or can be seen with enteritis. 3. Bibasilar pulmonary patchy opacities, worsened from prior which could be due to pneumonia or aspiration. Small pleural effusions, left greater than right. 4. Nodular hepatic contour suspicious for cirrhosis. Splenomegaly. Assessment and Plan (1) Stage II pressure ulcer of sacral region: Status: Acute Plan pt with multiple med issues with sacral stage 2 pressure injury turning and rotation precautions and zinc ozide and mepilex dressing to be changed qod and prn.
[2022-07-07] VITALS (33 sets, daily range): BP systolic 78–111; BP diastolic 16–41; PULSE 63–119; RESP 11–20; TEMP 36.2–37.1; O2SAT 87–98
[2022-07-07] MEDS: 0.9 % Sodium Chloride Flush 3 ML SYRINGE IVFLUSH ×2 (00:38→16:03)
[2022-07-07] MEDS: fentaNYL citrate/NS 1,000 MCG/100 ML PLAST..BAG 10 MCG IVCONT (05:42)
[2022-07-07 06:22] LABS: Glucose, Whole Blood < 10 mg/dL (60-115)
[2022-07-07] MEDS: Pantoprazole Sodium 40 MG/10 ML VIAL IVPUSH (06:32)
[2022-07-07] MEDS: Levothyroxine Sodium 25 MCG TABLET G-TUBE (06:33)
[2022-07-07 06:43] LABS: Glucose, Whole Blood 78 mg/dL (60-115)
[2022-07-07] MEDS: Dextrose 50 % 25 GM/50 ML SYRINGE IVPUSH (07:13)
[2022-07-07 07:39] LABS: Glucose, Whole Blood 53 mg/dL (60-115)
[2022-07-07] MEDS: Dextrose 10 % 1,000 ML 50 ML IVCONT (07:58)
[2022-07-07 08:50] LABS: Glucose, Whole Blood 94 mg/dL (60-115)
[2022-07-07] MEDS: Nystatin Powder 15 GM BOTTLE 1 APPL TOPICAL ×2 (10:19→21:08)
[2022-07-07] MEDS: Metoprolol Tartrate 25 MG TABLET G-TUBE (10:21)
[2022-07-07] MEDS: Carbidopa/Levodopa 25/100 TABLET 1 TAB G-TUBE ×4 (10:21→21:08)
[2022-07-07] MEDS: Sodium Bicarbonate 650 MG TABLET G-TUBE ×2 (10:21→13:31)
[2022-07-07 10:25] LABS: Glucose, Whole Blood 89 mg/dL (60-115)
--- NOTE | 2022-07-07 10:56 | MHC.CLN ---
F/U CONTINUES NPO STATUS AND NO TUBE FEEDING. DISCUSSED WITH TEAM AT ROUNDS. PATIENT WITH STAGE II PRESSURE INJURY TO COCCYX. CONTINUE TO FOLLOW WITH TEAM.
[2022-07-07 11:37] LABS: Glucose, Whole Blood 91 mg/dL (60-115)
--- NOTE | 2022-07-07 12:09 | MHC.CM.PN ---
Pt from [facility]: has legal guardians who are pursuing change of code status. Pt w/serious and per MD, irreversable medical conditions and treatment that will not be curative or of benefit to pt. MD to discuss with another provider for continuation of care. Pt with BG of 10 this am requiring D50 bolus. CM to follow
--- NOTE | 2022-07-07 13:54 | P.CDIC_ITS ---
CDI Concurrent Query Documentation Clarification: PHYSICIAN'S DOCUMENTATION REQUEST Date of Query: 07/07/22 [id number] Patient Name: Adilson Blackburn Admit Date: 06/20/22 Dear Doctor, A review of the medical record indicates additional documentation may be needed. Please review below and update the documentation accordingly. Clinical Indicators: The following information is noted in the medical record: Risk Factors/Clinical Indicators/Treatments Per MD progress note 07/06/22: He has no functional mental status the patient is unresponsive, even to vigorous stimulation Based on the above, could you clarify in the Progress Notes which, if any of the following, best reflects the patient's level of consciousness? * Unconscious * Comatose * Persistent vegetative state * Transient level of awareness * Other (please specify) * Unable to determine Use of terms such as suspected, likely, concern for, or probable (associated with a specific diagnosis that is being evaluated, monitored, or treated as if it exists) are acceptable and can be coded in the inpatient setting, when documented at the time of discharge. Thank you, Stacy Tuttle RN Extension: [phone] Please use your independent medical judgment in providing your response. THIS QUERY IS PART OF THE PERMANENT MEDICAL RECORD Provider Response: Other Other Diagnosis: Unable to determine
[2022-07-07 14:06] LABS: Glucose, Whole Blood 71 mg/dL (60-115)
[2022-07-07 16:09] LABS: Glucose, Whole Blood 65 mg/dL (60-115)
[2022-07-07] MEDS: fentaNYL citrate/NS 1,000 MCG/100 ML PLAST..BAG 7.5 MCG IVCONT (17:28)
[2022-07-07 18:07] LABS: Glucose, Whole Blood 78 mg/dL (60-115)
--- NOTE | 2022-07-07 18:59 | P.EN_ITS ---
Event Note Date of Service: 07/07/22 Event Note: Adilson is well known to me from [facility]. I have been his primary physician for the 12 years I have been at [facility]. Over the last year I have noted a steady and progressive decline in Adilson's functional status. At this point in time he is essentially noncommunicative and now requires renal replacement therapy. I believe his natural progression of disease has gotten to the point where resuscitation would be futile and assaultive to him. When I initially came to [facility], he had voiced to me that he did not want to be kept alive on a machine. Given his extremely poor prognosis, I believe Adilson should be DNR/ DNI/[employer].
--- NOTE | 2022-07-07 19:06 | P.PNCC_ITS ---
Subjective Subjective Date of Service: 07/07/22 Interval History: Mr. Blackburn was transferred to the ICU yesterday afternoon bec of respiratory distress with hypoxemia, likely secondary to aspiration. The patient is very well known to me.? SEE MY NOTE FROM MAY 28.? Briefly, the patient is a 61-year-old gentleman with underlying history of alcoholic ci rrhosis, dementia, ataxia, Parkinson?s disease, schizophrenia, diastolic heart failure, and CKD.? He is a resident of [facility].? Up until February of this year, he was reasonably high functioning, talked to people, got around mostly in a wheelchair, but could walk to the bathroom himself, transfers chair to bed by himself. In February, he was hospitalized at [facility] for hepatic encephalopathy and ERNST.? He required a 10 day stay in the ICU for refractory encephalopathy, but improved e nough without requiring intubation.? He was discharged on March 15 with a creat of 2.2 (baseline was normal prior to that hospitalization).? For undetermined reasons (mult head CTs and MRI unrevealing; EEG showed generalized slowing), his mental status never returned to baseline, even though his ammonia level normalized.? According to Dr. Moon (who knows him well), after he got back to [facility], his level of animation was about half of what it was previously, and he was not walking at all.? It had been my opinion at that February hospitalization that if he wound up intubated, he?d probably wind up with a tracheostomy and PEG. Mr. Blackburn was hospitalized again March 20- for worsened encephalopathy thought secondary to general deconditioning and advanced Parkinsonism, dementia, and schizophrenia.? Treated by decreasing the dose of gabapentin and holding loratadine and tramadol.? Required multiple doses of Haldol and Ativan to control his agitation.? Psychiatry recommended Seroquel and Ativan as needed.? His mental status improved back to what seemed to be his new baseline, alert and interactive but overall disoriented. The patient was hospitalized again on May 17 with CHF, leg edema, and weight gain.? He was diuresed.? During hospitalization, the patient became increasingly confused.? Geodon was restarted, with prn Seroquel and Ativan.? The patient subsequently had a PEA Code Blue, thought secondary to vomiting and aspiration, with a chunk of meat removed from the hypopharynx on intubation.? Had ROSC and was tx to ICU.? After a few days he woke up and was extubated without incident.? His best mental status prior to transfer out of ICU was arousal with moderate prompting, and when he was awake, he tracked readily, but it took very vigorous prompting to get him to be purposefully interactive (e.g. to nod his head in response to questions), and he would go back to sleep quickly.? He was not talking at all, not making any sounds.? He moved all 4 spontaneously.? On June 14, he underwent PEG under GETA without incident.? He was discharged on June 16 with creat stabilized in the 2.5 range. The patient was readmitted here on June 20 with SOB and hypoxemia, .? He had a low-grade temp.? WBC was 5.7, BUN/creatinine were 53/1.7, BNP was 3997.? Chest x-ray showed severe diffuse bilateral airspace disease, along with bilateral pleural effusions.? Thought either recurrent aspiration pneumonia and/or diastolic heart failure.? He was given broad-spectrum antibiotics and diuresis.? The patient's renal indices lorelei as he was diuresed.? On 06/29, Dr. Lomax recommended dialysis.? A temporary dialysis catheter was placed on 06/29 and dialysis was initiated on 06/30.? On 07/01, Dr. Niño recommended a renal biopsy. Early this week, the patient developed tense ascites.? On Jul 05, he was sent down to preop surgical holding area in preparation for ultrasound-guided paracentesis and a renal biopsy.? On arrival to the preop holding area, he was in resp distress, with tachypnea, wet sounding cough and breathing, and SpO2 88% on 4L NC.? I put a Yankaur sxn down his throat and suctioned out some yellow fluid.? He had almost no gag reflex.? Ie. it looked like he aspirated. He was taken into the OR and had a paracentesis of 8.8 L.? He was transferred to ICU post op.? On arrival, mental status was as usual for him:? Eyes closed, moaning.? He was completely unresponsive, even w vigorous stimulation.? Sat 91% on 10L. We ultrafiltered him for two hours and put him on a fentanyl infusion.? His breathing was a little easier.? His BP dropped and we gave him more albumin and put him on pressors.? An abdominal CT showed patchy opacities on the lung cuts, that were new from the CT scan earlier that day, consistent with aspiration. Yesterday, the patient was unresponsive, even to vigorous stimulation.? We made his breathing easier with a fentanyl infusion, which then improved his oxygenation -- SpO2 up to 99% on 50% HFNC.? He?s still unresponsive today.? The best I got was a deep breath with vigorous stimulation.? No eye opening.? HR is 74 SR alternating w Afib, BP 103/21 on Lveophed 0.3ug.? He?s required D10W at 70cc/hr to keep his POC > 70.? RR is 13 on a fentanyl infusion at 75ug, SpO2 on 6L NC is 95%.? Airway is clear.? No JVD.? Chest is CTA w normal exp phase.? Heart rate and rhythm are mostly regular, with normal-sounding S1 and S2, with no murmur or gallops.? The abdomen is obese and benign.? Undoubtedly has ascites.? He has ascites leaking out of his PEG tube site.? He has 3+ anasarca. IMPRESSION: 1. Acute respiratory distress with hypoxemia.? Undoubtedly secondary to aspiration.? He has markedly diminished mental status and no gag reflex.? Recurrent aspiration is expected.? His airway is now clear.? He is breathing easy, smoothly, and comfortably on the fentanyl infusion, with excellent oxygenation. 2. Underlying Parkinson?s dz, on Sinemet. 3. Underlying schizophrenia.? I am holding his Prolixin and Cogentin. 4. Underlying dementia. 5. Underlying alcoholic cirrhosis. 6. Underlying hepatic encephalopathy.? Ammonia levels have been normal. 7. AMS.? Severely deteriorated mental status.? Either his dementia and/or his Parkinson's and/or schizophrenia have progressed to the point of end stage metabolic encephalopathy.? I see no remedial treatment for that. 8. Hypoxemic resp failure on original admission.? Given the severe infiltrates on CXR and only mild-moderate hypoxemia, was most likely CHF, altho as much as he aspirates frequently, the latter can?t be ruled out. 9. ERNST.? Progressive renal failure as he was diuresed.? That is classic for r ight heart failure/end stage cardiorenal syndrome.? I commented on that in my last note of .? I?m shocked that he was started on dialysis in the first place.? From a practical point of view, there is no indication for any renal biopsy here. 10. Diastolic heart failure and right heart failure. 11. Massive anasarca.? 2? above factors. 12. Metabolic acidosis.? 2? acute renal failure. 13. Recurrent hypoglycemia.? 2? hepatic failure and general multiple organ system failure. 14. Anemia -- acute on chronic.? Undoubtedly has ACD. 15. Mild coagulopathy.? 2? liver disease. 16. Decubitus ulcers.? Usual care. CODE STATUS:? Last time Adilson was in the ICU in May, I discussed code status with Dr. Moon at some length.? In our opinion, Adilson's quality of life was getting much worse.? If he got intubated again, it was going to result in a tracheostomy and PEG, and no quality of life.? Neither of us felt that that would be in his interest.? We both felt he should have had DNR/DNI status at that time, even HELICOPTER SPECIALIST status.? I discussed that on May 26 with his guardian, Tanesha Pruitt ([phone] and [phone]).? She agreed, but a court order was needed to establish the DNR status. I spoke with Mrs. Pruitt again yesterday morning? I went into much greater depth regarding his current clinical condition and mental functioning.? I voiced my opinion that starting him on dialysis was a travesty, even unethical (IMO).? He has no functional mental status, and no ?quality of life?.? His status should be changed to DNR/DNI, or HELICOPTER SPECIALIST, and no further dialysis or other invasive procedures should be carried out.? I believe she fully understood the situation. Later yesterdy I spoke with Dr. Moon and with Feli He ([phone]), the patient?s guardian for his Ramesh?s Order in [place].? I had the same discussions with them as with Mrs. Pruitt, and both fully get the picture.? Jose Neri emphasized the need to follow the needs of the legal process, and I am in complete agreement. I worked with Tere Magana from case management yesterday and she worked with the hospital rn liaison to build the petition for the court.? I signed that, and we will wait for the court date. In the meantime, I spoke with Mila Isaak on rounds today about Adilson?s situation, and she indicated to us that we could write the DNR/DNI status order if two physicians signed agreement.? I spoke with Dr. Moon at length, and he wrote a note testifying to his opinion.? Accordingly, I?ve written DNR/DNI orde rs.? We will not increase any level of support (hemodynamics or oxygenation). Critical care time: 80+ min Critical Care Time (minutes): 80 Physical Exam Vital Signs: Vital Signs: Last Vital Signs Temp 98.7 F 07/07/22 12:00 Pulse 71 07/07/22 16:00 Resp 12 07/07/22 16:00 BP 103/23 L 07/07/22 16:00 Pulse Ox 97 07/07/22 16:00 O2 Del Method 07/07/22 16:00 O2 Flow Rate 40 07/07/22 14:00 FiO2 50 07/07/22 14:00 Oxygen Flow Rate 6 06/20/22 11:59 BMI result Body Mass Index 29.1 Objective Data Labs CBC & Chem 7: 07/06/22 05:50 07/06/22 05:50 Labs: Laboratory Results - last 24 hr 07/06/22 07/06/22 07/06/22 20:02 20:05 21:37 POC Glucose 55 L* 53 L* 100 07/07/22 07/07/22 07/07/22 06:17 06:39 07:36 POC Glucose < 10 L* 78 53 L* 07/07/22 07/07/22 07/07/22 08:47 10:22 11:34 POC Glucose 94 89 91 07/07/22 07/07/22 07/07/22 14:03 16:03 18:04 POC Glucose 71 65 78 Microbiology Microbiology Results: Microbiology 07/05/22 12:30 Ascites Fluid Gram Stain - Final 07/05/22 12:30 Ascites Fluid Routine Culture - Preliminary Culture in progress. 07/05/22 12:30 Ascites Fluid Anaerobic Culture - Preliminary Culture in progress. 07/05/22 23:57 Blood - Venous Blood Culture - Preliminary No growth after 24 hours. 07/05/22 23:57 Blood - Venous Blood Culture - Preliminary No growth after 24 hours. 06/26/22 15:19 Blood - Venous Blood Culture - Final No growth after 5 days. 06/26/22 14:17 Blood - Venous Blood Culture - Final No growth after 5 days. 06/26/22 16:48 Urine clean catch - Clean Catch Midstream Urine Culture - Final 06/20/22 14:33 Blood - Venous Blood Culture - Final No growth after 5 days. 06/20/22 14:33 Blood - Venous Blood Culture - Final No growth after 5 days. Quality Stroke Does the patient have a stroke diagnosis?: No VTE Prior VTE?: No VTE Risk Level:: Medical - moderate - high VTE Device Contraindication: Treatment Not Indicated VTE Drug Contraindication: N/A - Med Ordered Critical Care Time Critical Care Time (minutes): 90
[2022-07-07 20:29] LABS: Glucose, Whole Blood 67 mg/dL (60-115)
--- NOTE | 2022-07-07 21:11 | P.PNNP_ITS ---
Subjective Subjective Date of Service: 07/07/22 Interval history: Seen and examined, events noted. Physical Exam Vital Signs: Vital Signs: Last Vital Signs Temp 97.1 F 07/07/22 20:00 Pulse 64 07/07/22 21:07 Resp 11 L 07/07/22 20:00 BP 90/23 L 07/07/22 21:07 Pulse Ox 98 07/07/22 20:00 O2 Del Method 07/07/22 20:00 O2 Flow Rate 6 07/07/22 19:00 FiO2 50 07/07/22 14:00 Oxygen Flow Rate 6 06/20/22 11:59 BMI result Body Mass Index 29.1 Const: Other: Constitutional : Alert with stimulation, restless not in distress Neck : Normal inspection, Supple Cardiovascular : RRR, no JVP, no lower extremity edema Respiratory : fair bilateral air entry, no crackles, wheezes or rhonchi Gastrointestinal: soft, lax, Normal bowel sounds, Non tender Skin : Warm, Dry, ?stage II decubitus ulcer on coccyx, medial right buttock and left buttock Neurological : Alert with stimulation, disoriented, No focal deficit , altered mentation General: cooperative, healthy appearing, comfortable, no acute distress and pa tient obtunded Nutritional Appearance: overweight Orientat ion/consciousness: patient oriented x3 and patient obtunded Limitations: altered mental status HEENT: Face and sinus: Yes normal facial exam Mouth: moist mucous membranes Neck: Neck: Yes normal visual inspection, Yes full ROM and Yes trachea midline Chest: Chest palpation & inspection: normal inspection of the chest Resp: Effort & Inspection: normal respiratory effort, able to speak in complete sentences and no respiratory distress GI: Other: Obese abdomen. Peg tube in place with no surrounding erythema. Serous fluid noted on dressings and abdominal binder. Peg was adjusted and pulled up to approximate the mushroom tip to the abdominal wall. Patient tolerated this well. Tube was watched in the leakage was identified. Tube feeds are flowing easily. Inspection: Yes normal to inspection Back/Spine/Pelvis: Cervical Spine: normal cervical lordosis Thoracic/Lumbar Spine: thoracic and lumbar spine normal to inspection Skin: Other: No erythema surrounding the PEG tube. General skin exam: no rashes or lesions noted Neuro: General: patient oriented x3, tone normal, moves all extremities and patient obtunded Extrem: General: Yes normal to inspection and Yes capillary refill normal Objective Data Labs CBC & Chem 7: 07/06/22 05:50 07/06/22 05:50 Labs: Laboratory Results - last 24 hr 07/06/22 07/07/22 07/07/22 21:37 06:17 06:39 POC Glucose 100 < 10 L* 78 07/07/22 07/07/22 07/07/22 07:36 08:47 10:22 POC Glucose 53 L* 94 89 07/07/22 07/07/22 07/07/22 11:34 14:03 16:03 POC Glucose 91 71 65 07/07/22 07/07/22 18:04 20:18 POC Glucose 78 67 Microbiology Microbiology Results: Microbiology 07/05/22 12:30 Ascites Fluid Gram Stain - Final 07/05/22 12:30 Ascites Fluid Routine Culture - Preliminary Culture in progress. 07/05/22 12:30 Ascites Fluid Anaerobic Culture - Preliminary Culture in progress. 07/05/22 23:57 Blood - Venous Blood Culture - Preliminary No growth after 24 hours. 07/05/22 23:57 Blood - Venous Blood Culture - Preliminary No growth after 24 hours. 06/26/22 15:19 Blood - Venous Blood Culture - Final No growth after 5 days. 06/26/22 14:17 Blood - Venous Blood Culture - Final No growth after 5 days. 06/26/22 16:48 Urine clean catch - Clean Catch Midstream Urine Culture - Final 06/20/22 14:33 Blood - Venous Blood Culture - Final No growth after 5 days. 06/20/22 14:33 Blood - Venous Blood Culture - Final No growth after 5 days. Procedures Date of Service Date of Service: 07/04/22 Assessment & Plan Assessment and plan (1) Acute kidney injury superimposed on chronic kidney disease: Status: Acute Assessment and Plan: Severe Oliguric ERNST: limited options and (2) Gastrostomy tube in place: Status: Acute Assessment and Plan: 1. Oliguric ERNST: limited options and at this point doubtful that [employer] WILL HAVE ANY SIGNIF IMACT. HCP IS BEING UPDATED AND QUES OF SITCH TOFOCUS ON CONFRT MEASUERS IS BEEING EBTRTIANIED Time Spent With Patient Time: Total time spent is greater than 50% in coordination of care (as documented) at patient's floor/unit and/or counseling patient: Progress Note: Quality Stroke Does the patient have a stroke diagnosis?: No
[2022-07-07 22:45] LABS: Glucose, Whole Blood 71 mg/dL (60-115)
[2022-07-07] MEDS: Dextrose 10 % 1,000 ML 80 ML IVCONT (23:46)
[2022-07-08] VITALS: BP 89/21; PULSE 61; RESP 11; O2SAT 88
[2022-07-08 01:00] VITALS: BP 89/27; PULSE 90; RESP 11; O2SAT 93
[2022-07-08 01:22] VITALS: BP 83/24
[2022-07-08 02:00] VITALS: BP 95/23; PULSE 59; RESP 11; O2SAT 86
[2022-07-08] MEDS: 0.9 % Sodium Chloride Flush 3 ML SYRINGE IVFLUSH (02:44)
[2022-07-08 02:48] LABS: Glucose, Whole Blood 78 mg/dL (60-115)
[2022-07-08 03:00] VITALS: PULSE 0
--- NOTE | 2022-07-08 03:28 | PM.DS ---
DS: Providers Provider Date of Service: 07/08/22 Date of admission: 06/20/22 17:47 Date of discharge: 07/08/22 Primary care physician: Daniel Moon DO Admitting clinician: Harris Myers Attending physician on admission: Harris Myers Consults: 06/21/22 13:44 Consult to Nephrology Routine Consulting Provider: Crispin Lomax Reason for consultation: ckd III, persistent hyperkalemia 06/25/22 18:20 Consult to Urology Stat Consulting Provider: Ck Carlisle Reason for consultation: Acute urinary retention; unable to place Ybarra catheter 06/27/22 11:58 Consult to General Surgery Routine Consulting Provider: Kosta Hayes Reason for consultation: PEG tube oozing, functioning fine though with no residuals 07/05/22 15:18 Consult to Wound Care Routine Consulting Provider: [facility] Reason for consultation: WOUND TO COCCYX, STAGING, AND TREATMENT PLAN. Has provider been notified: Yes Attending physician on discharge: Harris Myers Discharging clinician: Hill Stahl DS: Diagnosis Discharge Diagnosis (1) Acute kidney injury superimposed on chronic kidney disease: Status: Acute (2) Gastrostomy tube in place: Status: Acute DS: Summary Hospital Course Hospital Course: Admission/discharge diagnosis: 1.Acute respiratory distress with hypoxemia.? Undoubtedly secondary to aspiration.? He has markedly diminished mental status and no gag reflex.? Recurrent aspiration is expected.? His airway is now clear.? He is breathing easy, smoothly, and comfortably on the fentanyl infusion, with excellent oxygenation. 2. Underlying Parkinson?s dz, 3. Underlying schizophrenia.? 4. Underlying dementia. 5. Underlying alcoholic cirrhosis. 6. Underlying hepatic encephalopathy.? 7. AMS.? Severely deteriorated mental status.? Either his dementia and/or his Parkinson's and/or schizophrenia have progressed to the point of end stage metabolic encephalopathy.? 8. Hypoxemic resp failure on original admission.? Given the severe infiltrates on CXR and only mild-moderate hypoxemia, was most likely CHF, altho as much as he aspirates frequently 9. ERNST.? Progressive renal failure as he was diuresed.? That is classic for right heart failure/end stage cardiorenal syndrome.? 10. Diastolic heart failure and right heart failure. 11. Massive anasarca.? 2? above factors. 12. Metabolic acidosis.? 2? acute renal failure. 13. Recurrent hypoglycemia.? 2? hepatic failure and general multiple organ system failure. 14. Anemia -- acute on chronic.? Undoubtedly has ACD. 15. Mild coagulopathy.? 2? liver disease. 16. Decubitus ulcers present on admission Around 2 in the morning on 07/08/2022, the patient started to deteriorate having lower oxygen saturation levels, bradycardia despite of the ongoing support along with ongoing hypoglycemia despite of D10 administration. ? Suddenly at 0300 the patient's sat dropped to 30% and he did become severely bradycardic, then asystole. At this time, the patient has no heartbeat, no palpable pulses, pupils are fixed at 5 mm bilaterally, overall that anterior chamber and cornea of the eyes appear glossy, no spontaneous breathing.? There is no corneal reflexes bilaterally, capillary refill of the fingers and toes is significantly delayed and there is cyanosis with cool extremities.? Patient was pronounced at? 0303 am . Certificate Completed. [facility] Called by RYAN. HPI / HOSPITAL COURSE Mr. Blackburn was transferred to the ICU yesterday afternoon bec of respiratory distress with hypoxemia, likely secondary to aspiration. This 61-year-old gentleman with underlying history of alcoholic cirrhosis, dementia, ataxia, Parkinson?s disease, schizophrenia, diastolic heart failure, and CKD.? He is a resident of [facility].? Up until February of this year, he was reasonably high functioning, talked to people, got around mostly in a wheelchair, but could walk to the bathroom himself, transfers chair to bed by himself. In February, he was hospitalized at [facility] for hepatic encephalopathy and ERNST.? He required a 10 day stay in the ICU for refractory encephalopathy, but improved enough without requiring intubation.? He was discharged on March 15 with a creat of 2.2 (baseline was normal prior to that hospitalization).? For undetermined reasons (mult head CTs and MRI unrevealing; EEG showed generalized slowing), his mental status never returned to baseline, even though his ammonia level normalized.? According to Dr. Moon (who knows him well), after he got back to [facility], his level of animation was about half of what it was previously, and he was not walking at all.? It had been my opinion at that February hospitalization that if he wound up intubated, he?d probably wind up with a tracheostomy and PEG. Mr. Blackburn was hospitalized again March 20 for worsened encephalopathy thought secondary to general deconditioning and advanced Parkinsonism, dementia, and schizophrenia.? Treated by decreasing the dose of gabapentin and holding loratadine and tramadol.? Required multiple doses of Haldol and Ativan to control his agitation.? Psychiatry recommended Seroquel and Ativan as needed.? His mental status improved back to what seemed to be his new baseline, alert and interactive but overall disoriented. The patient was hospitalized again on May 17 with CHF, leg edema, and weight gain.? He was diuresed.? During hospitalization, the patient became increasingly confused.? Geodon was restarted, with prn Seroquel and Ativan.? The patient subsequently had a PEA Code Blue, thought secondary to vomiting and aspiration, with a chunk of meat removed from the hypopharynx on intubation.? Had ROSC and was tx to ICU.? After a few days he woke up and was extubated without incident.? His best mental status prior to transfer out of ICU was arousal with moderate prompting, and when he was awake, he tracked readily, but it took very vigorous prompting to get him to be purposefully interactive (e.g. to nod his head in response to questions), and he would go back to sleep quickly.? He was not talking at all, not making any sounds.? He moved all 4 spontaneously.? On June 14, he underwent PEG under GETA without incident.? He was discharged on June 16 with creat stabilized in the 2.5 range. The patient was readmitted here on June 20 with SOB and hypoxemia, .? He had a low-grade temp.? WBC was 5.7, BUN/creatinine were 53/1.7, BNP was 3997.? Chest x-ray showed severe diffuse bilateral airspace disease, along with bilateral pleural effusions.? Thought either recurrent aspiration pneumonia and/or diastolic heart failure.? He was given broad-spectrum antibiotics and diuresis.? The patient's renal indices lorelei as he was diuresed.? On 06/29, Dr. Lomax recommended dialysis.? A temporary dialysis catheter was placed on 06/29 and dialysis was initiated on 06/30.? On 07/01, Dr. Niño recommended a renal biopsy. Early this week, the patient developed tense ascites.? On Jul 05, he was sent down to preop surgical holding area in preparation for ultrasound-guided paracentesis and a renal biopsy.? On arrival to the preop holding area, he was in resp distress, with tachypnea, wet sounding cough and breathing, and SpO2 88% on 4L NC.? Suction with a Yankaur sxn down his throat and suctioned out some yellow fluid.? He had almost no gag reflex.? Ie. it looked like he aspirated. He was taken into the OR and had a paracentesis of 8.8 L.? He was transferred to ICU post op.? On arrival, mental status was as usual for him:? Eyes closed, moaning.? He was completely unresponsive, even w vigorous stimulation.? Sat 91% on 10L. We ultrafiltered him for two hours and put him on a fentanyl infusion.? His breathing was a little easier.? His BP dropped and we gave him more albumin and put him on pressors.? An abdominal CT showed patchy opacities on the lung cuts, that were new from the CT scan earlier that day, consistent with aspiration. Yesterday, the patient was unresponsive, even to vigorous stimulation.? We made his breathing easier with a fentanyl infusion, which then improved his oxygenation -- SpO2 up to 99% on 50% HFNC.? He?s still unresponsive today.? The best I got was a deep breath with vigorous stimulation.? No eye opening.? HR is 74 SR alternating w Afib, BP 103/21 on Lveophed 0.3ug.? He?s required D10W at 70cc/hr to keep his POC > 70.? RR is 13 on a fentanyl infusion at 75ug, SpO2 on 6L NC is 95%.? Airway is clear.? No JVD.? Chest is CTA w normal exp phase.? Heart rate and rhythm are mostly regular, with normal-sounding S1 and S2, with no murmur or gallops.? The abdomen is obese and benign.? Undoubtedly has ascites.? He has ascites leaking out of his PEG tube site.? He has 3+ anasarca. CODE STATUS:? Last time Adilson was in the ICU in May, Dr Myers discussed the code status with Dr. Moon at some length.? In our opinion, Adilson's quality of life was getting much worse.? If he got intubated again, it was going to result in a tracheostomy and PEG, and no quality of life.? Neither of us felt that that would be in his interest.? 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 I discussed that on May 26 with his guardian, Tanesha Pruitt ([phone] and [phone]).? She agreed, but a court order was needed to establish the DNR status. Dr Myers spoke with Mrs. Pruitt again yesterday morning? I went into much greater depth regarding his current clinical condition and mental functioning.? I voiced my opinion that starting him on dialysis was a travesty, even unethical (IMO).? He has no functional mental status, and no ?quality of life?.? 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 I believe she fully understood the situation. Later yesterday he spoke with Dr. Moon and with Feli Fernandeslucy ([phone]), the patient?s guardian for his Ramesh?s Order in [place].? I had the same discussions with them as with Mrs. Pruitt, and both fully get the picture.? Ms. He emphasized the need to follow the needs of the legal process, and I am in complete agreement. Tere Magana from case management yesterday and she worked with the hospital litigation attorney to build the petition for the court.? I signed that, and we will wait for the court date. In the meantime, Dr. Myers spoke with Mila Mulligan on rounds today about Adilson?s situation, and she indicated to us that we could write the DNR/DNI status order if two physicians signed agreement.? I spoke with Dr. Moon at length, and he wrote a note testifying to his opinion.? Accordingly, they had written DNR/DNI orders.? We did not increase any level of support (hemodynamics or oxygenation). I (Hill Stahl) called the guardians Lety Olivares [phone] and Edmond Velázquez [phone] no answer and no ability to leave a message. Discussed in detail with Dr. Myers.? He is aware of all the above. Time Spent with Patient Time attestation: Total time spent providing and/or coordinating discharge services: Discharge coordination time: Greater than 30 minutes Quality: Safe Use of Opioids Does Pt have an Active Cancer Diagnosis on the Problem List?: No Quality: Stroke Does the patient have a stroke diagnosis?: No Physical Exam Vital Signs: Vital Signs: Last Vital Signs Temp 97.1 F 07/07/22 20:00 Pulse 0 L 07/08/22 03:00 Resp 11 L 07/08/22 02:00 BP 95/23 L 07/08/22 02:00 Pulse Ox 86 L 07/08/22 02:00 O2 Del Method 07/08/22 02:00 O2 Flow Rate 6 07/07/22 19:00 FiO2 50 07/07/22 14:00 Oxygen Flow Rate 6 06/20/22 11:59 BMI result Body Mass Index 29.1 DS: Data Data Completed and Pending Completed studies during hospitalization [Text1]: Procedures Insertion of Endotracheal Airway into Trachea, Via Natural or Artificial Opening (05/17/22) Insertion of Feeding Device into Stomach, Percutaneous Approach (05/17/22) Insertion of Infusion Device into Superior Vena Cava, Percutaneous Approach (05/17/22) Introduction of Vasopressor into Peripheral Vein, Percutaneous Approach (05/17/22) Performance of Cardiac Output, Single, Manual (05/17/22) Respiratory Ventilation, Greater than 96 Consecutive Hours (05/17/22) Transfusion of Nonautologous Red Blood Cells into Peripheral Vein, Percutaneous Approach (05/17/22) Labs on day of discharge: Laboratory Results - last 24 hr 07/07/22 07/07/22 07/07/22 06:17 06:39 07:36 POC Glucose < 10 L* 78 53 L* 07/07/22 07/07/22 07/07/22 08:47 10:22 11:34 POC Glucose 94 89 91 07/07/22 07/07/22 07/07/22 14:03 16:03 18:04 POC Glucose 71 65 78 07/07/22 07/07/22 07/08/22 20:18 22:43 02:44 POC Glucose 67 71 78 Preliminary micro results at discharge 07/05/22 23:57 Blood Culture - Preliminary Blood - Venous No growth after 48 hours. 07/05/22 23:57 Blood Culture - Preliminary Blood - Venous No growth after 48 hours. 07/05/22 12:30 Routine Culture - Preliminary Ascites Fluid Culture in progress. Anaerobic Culture - Preliminary Culture in progress. Discharge Plan Discharge Date/Time: 07/08/22 03:03 Patient Disposition: Discharge Diagnosis: Respiratory Arrest due to Hypoxic respiratory Failure Referrals: Daniel Moon DO [Primary Care Provider] - 1 Week Discharge Medications: No Action docusate sodium 100 mg Tablet 100 mg PO BEDTIME tramadol 50 mg Tablet 50 mg PO BID Hold Instructions: MD to decide if needed to be resumed Lotrimin AF 2 % Aerosol,[place] 1 spray TOPICAL BID PRN (Reason: fungal infection) fluphenazine decanoate 25 mg/mL Solution 50 mg SUBCUT Q14D benztropine 1 mg Tablet 1 mg PO BID carbidopa-levodopa [Sinemet] 25-100 mg Tablet 1 tab PO QID sennosides [senna] 8.6 mg Tablet 8.6 mg PO DAILY PRN (Reason: Constipation) acetaminophen 325 mg Tablet 650 mg PO Q4H PRN (Reason: PAIN/TEMP>100) Rx Instructions: per gtube bisacodyl 10 mg Suppository 10 mg AR DAILY PRN (Reason: Constipation) Calazime Skin Protectant 1 applic topical QSHIFT Protocol: Apply to: Apply to: GROIN Rx Instructions: APPLY TO GROIN TOPICALLY EVERY SHIFT FOR REDNESS AND IRRITATION WASH GROIN WITH WARM SOAPY WATER. PAT DRY. APPLY CLAZIME CREAM TO GROIN. guaifenesin 100 mg/5 mL Liquid 200 mg PO Q4H PRN (Reason: Cough) lactulose 20 gram/30 mL solution 30 ml PO DAILY Rx Instructions: PER GTUBE metoprolol tartrate 25 mg tablet 25 mg PO BID Protocol: Hold for SBP/HR < HOLD for SBP < : 90 HOLD for HR < : 60 amoxicillin-pot clavulanate [Augmentin] 200-28.5 mg/5 mL Suspension For Reconstitution 21.9 ml PO BID Rx Instructions: x 5 days ordered 06/16/22 furosemide 20 mg tablet 20 mg PO DAILY multivitamin Tablet 1 tab PO DAILY levothyroxine 25 mcg tablet 25 mcg PO DAILY@0600 Xifaxan 550 mg tablet 1 tab PO BID Rx Instructions: OK TO CRUSH PER PT HALF-WAY INSTRUCTIONS insulin lispro [Humalog KwikPen Insulin] 100 unit/mL Insulin Pen See Protocol SUBCUT QIDACHS Protocol: Insulin Correction Scale Less than or equal to 110 ---- Give (units): 0 111 to 150 Give (units): 0 151 to 200 Give (units): 4 201 to 250 Give (units): 6 251 to 300 Give (units): 8 301 to 350 Give (units): 10 Greater than 350 Give (units): 12 Call MD if Blood Glucose > : 350 insulin glargine [Lantus Solostar U-100 Insulin] 100 unit/mL (3 mL) Insulin Pen 20 unit SUBCUT BID gabapentin 300 mg Capsule 300 mg PO TID amlodipine 10 mg Tablet 10 mg G-tube DAILY Qty: 0 0RF Protocol: Hold for SBP< HOLD for SBP < : 90 Omeprazole Oral Susp [Prilosec Oral Susp] 40 mg G-tube DAILY@0630 Qty: 0 0RF Discharge Orders: Discharge Order (Routine); Ordered 07/08/22 Ordered By: Hill Stahl Discharge Date/Time: 07/08/22 04:14
--- NOTE | 2022-07-08 03:41 | PC.NURSE ---
ASSUMED CARE OF PT AT 1900. PT WAS MADE A DNR BY DR SANCHEZ. PT WAS UNRESPONSIVE AND AGONALLY BREATHING. WAS ON LEVOPHED AT 0.3 MCG/KG/MIN. MONITOR WAS NSR W/BBB, RATE 60'S. O2 SAT LOW 90'S INITIALLY AND THEN TO 80'S. PT STARTED HAVING PERIODS OF APNEA. HEART RATE DROPPED TO 50'S AND SUSTAINED THERE UNTIL 0300 HE BECAME MORE BRADYCARDIC AND THEN ASYSTOLE. THIS RN AT BEDSIDE WITH LIAM JAVIER PA-C. PT WAS PRONOUNCED AT 0303 BY SNOW. [facility] CALLED AT 0345 AND CASE DECLINED BY [facility], CASE # [id number]. [facility] SUPERVISOR NOTIFIED. POST MORTEM CARE GIVEN AND [place] [facility]
== END 2022-07-08 04:14 | disposition expired | DRG 177 ==
LOC: HO.ED 15:50 → HO.EDOVER 18:18 → HO.IMC 06-21 00:40 → HO.ICU 07-05 11:59
PROVIDERS: Internal Medicine; Internal Medicine Hypertension Specialist; Physician Assistant Medical; Radiology Diagnostic Radiology; Student in an Organized Health Care Education/Training Program; Admitting Provider Hospitalist; Emergency Provider Emergency Medicine; PCP Hospitalist; Visit Provider Anesthesiology
PROC: 02HV33Z Insertion of Infusion Device into Superior Vena Cava, Percutaneous Approach (ICD-10-PCS; principal; 2022-06-29 15:00)
PROC: 0W9G3ZZ Drainage of Peritoneal Cavity, Percutaneous Approach (ICD-10-PCS; principal; 2022-07-05 10:30)
DX: J69.0 Pneumonitis due to inhalation of food and vomit (principal); G92.8 Other toxic encephalopathy; I50.33 Acute on chronic diastolic (congestive) heart failure; K76.7 Hepatorenal syndrome; J96.01 Acute respiratory failure with hypoxia; N17.0 Acute kidney failure with tubular necrosis; I13.0 Hypertensive heart and chronic kidney disease with heart failure and stage 1 through stage 4 chronic kidney disease, or unspecified chronic kidney disease; E87.1 Hypo-osmolality and hyponatremia; E87.2 Acidosis; Z66 Do not resuscitate; F20.9 Schizophrenia, unspecified; E11.22 Type 2 diabetes mellitus with diabetic chronic kidney disease; N18.30 Chronic kidney disease, stage 3 unspecified; G20 Parkinson's disease; F02.80 Dementia in other diseases classified elsewhere, unspecified severity, without behavioral disturbance, psychotic disturbance, mood disturbance, and anxiety; E87.5 Hyperkalemia; K70.31 Alcoholic cirrhosis of liver with ascites; T36.8X5A Adverse effect of other systemic antibiotics, initial encounter; I50.810 Right heart failure, unspecified; D63.1 Anemia in chronic kidney disease; E11.649 Type 2 diabetes mellitus with hypoglycemia without coma; L89.152 Pressure ulcer of sacral region, stage 2; I95.9 Hypotension, unspecified; K72.90 Hepatic failure, unspecified without coma; L89.322 Pressure ulcer of left buttock, stage 2; L89.312 Pressure ulcer of right buttock, stage 2; R13.12 Dysphagia, oropharyngeal phase; Z93.1 Gastrostomy status; Z20.822 Contact with and (suspected) exposure to COVID-19; Z87.891 Personal history of nicotine dependence; Z79.4 Long term (current) use of insulin; Z79.890 Hormone replacement therapy; Z79.899 Other long term (current) drug therapy
CPT/HCPCS: 0241U; 36415; 36556; 49083; 70450; 71045; 74018; 74176; 80048; 80053; 80076; 80202; 81001; 82140; 82607; 82746; 82803; 82947; 83010; 83540; 83605; 83615; 83735; 83880; 84100; 84145; 84484; 85007; 85025; 85027; 85045; 85610; 86704; 86706; 87040; 87071; 87073; 87077; 87086; 87186; 87205; 87340; 87493; 87635; 90935; 90999; 92526; 92610; 93005; 94640; 94799; 96361; 96374; 96375; 99285; C1758; J0295; J0885; J1940; J2150; J2543; J2680; J2916; J2920; J3010; J3370; P9047